=== PATIENT | female | born 1940 | race Caucasian/White ===

== ENCOUNTER 2024-11-12 16:11 | Emergency (ER) | payer MEDICARE, SELFPAY ==
--- OUTSIDE RECORDS SUMMARY | 2024-01-21 05:45 | XMS_ITS | Continuity of Care Document ---
Author Organization [facility] Address [address] [address] [place] [address] Phone Care Team Providers Care Registered Radiologic Technologist Name Role Phone Libby Huitron Unavailable Unavailable Allergies, Adverse Reactions, Alerts Substance Reaction Status Criticality lisinopril Active No Information Medications Medication Instructions Dosage Effective Dates (start - stop) Status Comments omeprazole 40 mg capsule,delayed release take 1 capsule by oral route every day before a meal 40 MG - Active FDgard 25 mg-20.75 mg capsule SAMPLE - Active ISOSORBIDE MONONITRATE ER (unknown strength) take 1 tablet by oral route every day in the morning Not Available - Active citalopram 20 mg tablet take 1 tablet by oral route every day 20 MG - Active simvastatin 10 mg tablet take 1 tablet b y oral route every day in the evening 10 MG - Active GABAPENTIN (unknown strength) Dose 300mg by Oral, taken 1 at bedtime and for legs Not Available - Active metoprolol tartrate 25 mg tablet take 1 tablet by oral route 2 times every day 25 MG - Active amlodipine 2.5 mg tablet take 1 tablet b y oral route every day 2.5 MG - Active Aspirin Low Dose 81 mg tablet,delayed release take 1 tablet by oral route every day 81 MG - Active VITAMIN B-12 (unknown strength) Not Available - Active Calcium 500 500 mg calcium (1,250 mg) tablet take 1 tablet by oral route every day 1 tablet - Active iron 325 mg (65 mg iron) tablet take 1 tablet by oral route every day 1 tablet - Active One-A-Day Womens Formula 18 mg iron-400 mcg-500 mg Ca tablet - Active VITAMIN D3 (unknown strength) take 1 capsule by oral route every day Not Available - Active anastrozole 1 mg tablet take 1 tablet by oral route every day 1 MG - Active hydrochlorothiazide 12.5 mg tablet take 1 tablet by oral route twice per week - Active Procedures Procedure Date Offic/outpt E&m Estab Low-mod 4 Offic/outpt E&m Estab Low-mod 4 Ugi Endo; W/endo Ultrasound Ex 23 Ugi Endo; W/bx 1/mx Offic/outpt E&m New Mod-hi Routine Serum Collection Stool Kits Given C. Difficile Toxin Gene, RC Offic/outpt E&m New Mod Sever 8 Advance Directives Directive Yes / No Effective Date File Name No Information Encounters Encounter Description Practice Location Reason(s) For Visit Diagnoses Date Provider Providers Copied on Encounter Offic/outpt E&m Estab Low-mod [facility], [address] [address], [place], [place], [id number], [place] tel:[phone] [facility] GI Symptoms or Concerns (chief complaint) Nausea 4 Dwain Souza. [address] [place] [address], [id number], [place]. tel:[phone] Referring Provider: Referral Self, USE FOR SELF REFERRALS. [facility], [address] [address], [place], [place], [id number], [place] tel:[phone] [facility] No Information 4 Dwain VELASCO Libby. [address] [place] [address], [id number], [place]. tel:[phone] Offic/outpt E&m Estab Low-mod [facility], [address] [address], [place], [id number], [place] tel:[phone] [facility] GI Symptoms or Concerns (chief complaint) NauseaDilated bile duct 4 Dwain Souza. [address] [place] [address], [address], [id number], [place]. tel:[phone] Referring Provider: Shannon Bryan, [address] [place], [address]. tel:[phone] [facility], [address] [address], [place], [id number], [place] tel:[phone] [facility] No Information 4 Dash Bettencourt. [address] [place] [address], [address], [id number], [place]. tel:[phone] [facility], [address] [address], [place], [id number], [place] tel:[phone] [facility] Nausea 3 Dash Bettencourt. [address] [place] [address], [address], [id number], [place]. tel:[phone] [facility], [address] [address], [place], [id number], [place] tel:[phone] [facility] No Information 3 No Information Offic/outpt E&m New Mod-hi [facility], [address] [address], [place], [id number], [place] tel:[phone] [facility] GI Symptoms or Concerns (chief complaint) Dilated bile ductNausea 3 Naldo Delvalle. [address] [facility], [facility] [address], [place], [id number], [place]. tel:[phone] Referring Provider: Referral Self, USE FOR SELF REFERRALS. [facility], [address] [address], [place], [id number], tel:[phone] [facility] No Information Dash Bettencourt. [address] [facility], [facility] [address], [place], [id number], . tel:[phone] [facility], [address] [address], [place], [place], [id number], tel:[phone] [facility] Change in bowel habit Edstrdarlene Loyd. [address] [facility], [facility] [address], [place], [place], [id number], [place]. tel:[phone] Referring Provider: Referral Self, USE FOR SELF REFERRALS. Offic/outpt E&m [facility], [address] [address], [place], [place], [id number], tel:[phone] [facility] GI Symptoms or Concerns (chief complaint) Change in bowel habitsEssential (primary) hypertension Edstrdarlene Loyd. [address] [facility], [facility] [address], [place], [id number], [place]. tel:[phone] Family History Family Member Type Diagnosis Age At Onset Daughter Problem (finding) Alive and well Son Problem (finding) Cancer, gastric Sister Problem (finding) Alive and well Mother Problem (finding) 80 Mother Problem (finding) malignant neoplasm of l demarco Son Problem (finding) Melanoma Brother Problem (finding) Alive and well Father Problem (finding) Son Problem (finding) Alive and well Immunizations Vaccine Date Status Comments Influenza, adjuvanted, inactivated, quadrivalent, injectable, preservative free administered Note: [facility] bi-directional interface ; Source: Other Registry influenza, seasonal vaccine, quadrivalent, adjuvanted, 0.5mL dose, preservative free administered Note: [facility] bi-di rectional interface ; Source: Other Registry Influenza, high-dose, split virus, quadrivalent, injectable, preservative free administered Note: [facility] bi-direct ional interface ; Source: Other Registry influenza, high-dose seasona l, quadrivalent, 0.7mL dose, preservative free administered Note: [facility] bi-direct ional interface ; Source: Other Registry influenza, high-dose seasona l, quadrivalent, .7mL dose, preservative free administered Note: [facility] bi-direct ional interface ; Source: Other Registry Influenza, high-dose, split virus, quadrivalent, injectable, preservative free administered Note: [facility] bi-direct ional interface ; Source: Other Registry influenza, high-dose seasona l, quadrivalent, 0.7mL dose, preservative free administered Note: [facility] bi-direct ional interface ; Source: Other Registry SARS-COV-2 (COVID-19) vaccin e, mRNA, spike protein, LNP, preservative free, 30 mcg/0.3mL dose administered Note: [facility] bi-direct ional interface ; Source: Other Registry influenza, high-dose seasona l, quadrivalent, .7mL dose, preservative free administered Note: [facility] bi-direct ional interface ; Source: Other Registry SARS-COV-2 (COVID-19) vaccin e, mRNA, spike protein, LNP, preservative free, 30 mcg/0.3mL dose administered Note: [facility] bi-direct ional interface ; Source: Other Registry SARS-COV-2 (COVID-19) vaccin e, mRNA, spike protein, LNP, preservative free, 30 mcg/0.3mL dose administered Note: [facility] bi-direct ional interface ; Source: Other Registry Influenza, adjuvanted, inactivated, quadrivalent, injectable, preservative free administered Note: [facility] bi-directional interface ; Source: Other Registry influenza, seasonal vaccine, quadrivalent, adjuvanted, 0.5mL dose, preservative free administered Note: [facility] bi-di rectional interface ; Source: Other Registry influenza, seasonal vaccine, quadrivalent, adjuvanted, .5mL dose, preservative free administered Note: [facility] bi-di rectional interface ; Source: Other Registry influenza virus vaccine, unspecified formulation administered Note: [facility] bi-di rectional interface ; Source: Other Registry tetanus toxoid, reduced diphtheria toxoid, and acellular pertussis vaccine, adsorbed administered Note: [facility] b i-directional interface ; Source: Other Registry Influenza, high-dose, split virus, trivalent, injectable, preservative free administered Note: [facility] bi-direct ional interface ; Source: Other Registry influenza, high dose seasona l, preservative-free administered Note: [facility] bi-direct ional interface ; Source: Other Registry zoster vaccine recombinant administered N ote: [facility] bi-directional interface ; Source: Other Registry zoster vaccine recombinant administered N ote: [facility] bi-directional interface ; Source: Other Registry Influenza, high-dose, split virus, trivalent, injectable, preservative free administered Note: [facility] bi-direct ional interface ; Source: Other Registry influenza, high dose seasona l, preservative-free administered Note: [facility] bi-direct ional interface ; Source: Other Registry Influenza, injectable, quadrivalent, preservative free, 3 yrs or older administered Source: Other Regist ry Prevnar 13 administered Note: [facility] bi-d irectional interface ; Source: Other Registry Influenza, high-dose, split virus, trivalent, injectable, preservative free administered Note: [facility] bi-direct ional interface ; Source: Other Registry influenza, high dose seasona l, preservative-free administered Note: [facility] bi-direct ional interface ; Source: Other Registry Influenza, high-dose, split virus, trivalent, injectable, preservative free administered Note: [facility] bi-direct ional interface ; Source: Other Registry influenza, high dose seasona l, preservative-free administered Note: [facility] bi-direct ional interface ; Source: Other Registry Pneumovax 23 administered Note: [facility] bi-d irectional interface ; Source: Other Registry tetanus and diphtheria toxoi ds, adsorbed, preservative free, for adult use (5 Lf of tetanus toxoid and 2 Lf of diphtheria toxoid) administered Note: [facility] bi-direct ional interface ; Source: Other Registry Payers Payer name Insurance type Covered constitution party ID Tamara robin(s) [facility] Medic are Complete CI [id number] Social History Type Description Quantity Date Captured Comments Alcohol Use Details No Caffeine Use Details Tobacco Use Status undefined Smoking Status undefined Non-Smoking Tobacco Use Details : No Details Available : No Details Available Sex Female Vital Signs Date / Time: Height Weight BMI Pulse Rate Blood Pressure Temperature Respiratory Rate Body Surface Area Head Circumference Head Circ. Percentile Wt./Abram. Percentile BMI percentile Pulse Ox Inhaled Ox 10:48 AM 64.00 in 79.923 kg (176.20 lbs) 30.2 4 kg/m eter (2) 88 /min 147/67 mm[Hg] Chief Complaint And Reason For Visit From encounter dated '01/21/2024 10:45'. GI Symptoms or Concerns (chief complaint). Description: This patient is a pleasant 83-year-old female who is seen today for follow-up of chronic nausea.She was last seen by myself 3 months ago. She has history of chronic nausea that has been present for the past few years.Prior EGD/EUS was performed 09/2022 for evaluation of common bile duct dilation seen on imaging. 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 The stomach appeared normal and gastric biopsies were normal. Gastric emptying study was also normal.Nausea was previously associated with recurrent UTIs, but more recently has persisted even without UTI. At her last visit,omeprazole was increased to 40 mg once daily which has helped somewhat. Patient used to wake up with significant a.m. nausea, but she is now experiencing more postprandial nausea. No vomiting, bowel changes, appetite loss, or weight loss. Tried multiple antiemetics in the past including Zofran and Compazine, with minimal relief. She was given samples of FD Elisabeth at her last visit, which did help somewhat. Previously her oncologist recommended trialing off of her anastrozole tablets to see if this would improve symptoms, but patient was hesitant to do so with her breast cancer history.Notably she is s/p cholecystectomy. Reason For Referral Reason For Referral No Information Plan Of Treatment Date Type Action Status Referral Ordered: Gastric Emptying Study (4 Hours) Appointment date/timeframe: 10/20/2022 ordered Referral Ordered: follow-up visit after tests Appointment date/timeframe: after tests ordered Referral Ordered: EUS Appointment date/timeframe: 09/10/2022 ordered Referral Ordered: EGD Appointment date/timeframe: 09/10/2022 ordered Referral Ordered: ERCP Appointment date/timeframe: 09/10/2022 ordered History Of Present Illness Encounter Date Complaint History Of Prese nt Illness GI Symptoms or Concerns This pat ient is a pleasant 83-year-old female who is seen today for follow-up of chronic nausea.She was last seen by myself 3 months ago. She has history of chronic nausea that has been present for the past few years.Prior EGD/EUS was performed 09/2022 for evaluation of common bile duct dilation seen on imaging. 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 The stomach appeared normal and gastric biopsies were normal. Gastric emptying study was also normal.Nausea was previously associated with recurrent UTIs, but more recently has persisted even without UTI. At her last visit, omeprazole was increased to 40 mg once daily which has helped somewhat. Patient used to wake up with significant a.m. nausea, but she is now experiencing more postprandial nausea. No vomiting, bowel changes, appetite loss, or weight loss. Tried multiple antiemetics in the past including Zofran and Compazine, with minimal relief. She was given samples of FD Elisabeth at her last visit, which did help somewhat. Previously her oncologist recommended trialing off of her anastrozole tablets to see if this would improve symptoms, but patient was hesitant to do so with her breast cancer history.Notably she is s/p cholecystectomy. GI Symptoms or Concerns Patient is a 83-year-old female who presents in follow up relating to nausea. She is accompanied by her (Rickey). In review, patient was last seen here August, for continued nausea and intrahepatic ductal dilation noted on CT scan (during workup for UTI). She was referred for EGD/EUS and recommended to continue her PPI and eat smaller more frequent meals.EUS September, with normal esophagus, normal stomach and dilation of the common bile duct measuring up to 13 mm. 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 Pancreatic duct measured 4 mm in diameter. H pylori negative. No further surveillance imaging was recommended for cystic lesion.Gastric emptying study completed Oct, 2022 was normal.Today patient reports she continues to experience nausea. Her episodes of nausea used to occur 1-2 days before being diagnosed with a UTI, but currently she reports it will happen whether she has symptoms of a UTI or not. She is on Omeprazole 20mg daily. She reports she met with her PCP in September and was given Compazine to use as needed for nausea episodes and management (has not yet needed this). Her oncologist told her to trial off of her anastrozole tablets to see if this was contributing to her nausea but patient does not feel comfortable getting off this medication given her breast cancer history. Patient reports episode of nausea that are intermittent and may last anywhere from 2-3 days or a whole week, she will wake up with symptoms of nausea and at times experience epigastric discomfort which continues up into her throat. She denies episodes of vomiting, dysphagia, globus sensation, hoarseness, hematemesis, frequent cough, clearing of throat or postnasal drip. Her bowels are regular with 1 BM per day, she does report stools are loose when she has episodes of nausea. Weight is stable although reports loss of appetite with nausea episodes. She has tried Zofran with minimal relief. She is followed for colon cancer screening with a Cologard test. Her last colonoscopy was greater than 10 years ago. She reports her Cologard has been negative. Most recent A1c was 7.8. GI Symptoms or Concerns The elissa ent is seen in consultation at the request of her referring urologist, Dr. Blanchard for evaluation of dilated bile duct and nausea.The patient is seen accompanied by her daughter, Teetee. She is an 82-year-old female with a past medical history significant for breast cancer, diabetes, previous cholecystectomy, hysterectomy, and history of CAD status post stent in 2011, also with a history of recurrent UTIs. She is seen for a history of nausea for the last couple of years, which has increased recently. This is intermittent and random without clear obvious triggers, but has been associated with UTIs inconsistently in the past. She has had no vomiting. She has had no weight loss. She does report some decreased appetite associated with this. She denies heartburn. She is on omeprazole 20 mg daily. She uses Zofran if needed, which can sometimes be helpful.She underwent evaluation with a CT for history of UTIs. This did reveal intrahepatic dilation, which was felt to be GI Symptoms or Concerns This is a pleasant 77-year-old female with past medical history significant for breast cancer, type 2 diabetes, glaucoma, a previous cholecystectomy, hysterectomy, coronary artery disease, status post cardiac stenting, presenting to clinic today to discuss change in bowel habits.The patient states that she chronically has a history of intermittent diarrhea, but over the last 3 to 4 months, this has become more problematic. Previously, it had been more intermittent, but now is occurring almost daily. She typically will have 1 to 3 loose bowel movements per day that are very urgent. At times, the stool is watery. On average, stools are postprandial. There is associated lower abdominal discomfort, which is relieved with bowel movements. She has noted that fried foods can be a trigger, but otherwise there has not been any clear pattern with specific foods. She denies any rectal bleeding, melena, significant abdominal pain, nausea, vomiting, or unintentional weight loss.Sh Functional Status Date Functional Assessmen t No Information Instructions Date Instruction Additional Infor prisca 1. We will increase you Omeprazole to 40mg one tab by mouth in the morning to see if this helps with your episodes of nausea, Rx sent to your pharmacy today2. You may trial the anti-nausea medication provided by your PCP (Compazine) as directed.3. I have provided samples of FDgard for you to use for stomach discomfort when your episodes of nausea arise. You may also consider trial of tennille tabs/chews for nausea episodes.4. Follow up in 3 months, sooner if needed. Related to Nausea 1. check lfts, thyro id, celiac labs2. EGD with EUS +/- ERCP for evaluation of nausea and dilated bile duct on CT3. eat small, frequent, low fat meals4. f/u after tests - consider gastric emptying test for further eval of nausea pending above Related to Nausea High Fiber Diet Related to Andrei rojo in bowel habits Lactose Intolerance Related to Javi vaca in bowel habits Assessments Type Assessment Date assessment Nausea impression Patient presents for follow-up of chronic nausea. Evaluation has found no cause of symptoms. I suspect this is related to medication side effect (she is on many meds) and/or functional dyspepsia. Patient does feel like her symptoms have improved somewhat on the higher dose of PPI, and so I recommend that she continue omeprazole 40 mg daily. She may benefit from using supplements such as tennille or FD Elisabeth as needed for symptom management. She is not a candidate for tricyclic antidepressant or buspirone given her other antidepressant medications. She may consider trying to eat small, frequent meals throughout the day to see if this would improve postprandial symptoms. Patient voiced understanding of these recommendations and will follow-up as needed if her symptoms change. Patient Care Teams Name Effective Dates (start - stop) Status Members No Information
--- OUTSIDE RECORDS SUMMARY | 2024-09-28 10:20 | XMS_ITS | Encounter Summary ---
Author Organization [facility] Address [address] [place] [id number] Care Team Providers Care Generation Engineer Name Role Phone Sheryl Stringer RD Unavailable [phone] Federico Linda MD Unavailable [phone] Jc Zavala MD Unavailable [phone] Cristofer Michelle MD Unavailable Vivien Blanchard MD Unavailable Teetee Velazquez-Javi Unavailable Teetee Velazquez PA-C Unavailable Brad Mayer DO Unavailable [phone] Mary Garcia MD Primary Care Provider Lanie Foster RD, LD Unavailabl e Mary Garcia MD Unavailable Melonie Caro [facility] Unavailable Federico Linda MD Unavailable [phone] Melonie Caro [facility] Unavailable [phone] Virgie Lobato PA-C Unavailable [phone] Barry Ybarra MD Unavailable [phone] Reason for Visit * Reason Comments Consult * Consultation (Routine: Next available opening) - Pending Review Specialty Diagnoses / Procedures Referred By Contjaxson t Referred To Contact Infectious Diseases Diagnoses UTI due to extended-spectrum beta lactamase (ESBL) producing Escherichia coli Teetee Velazquez PA-C [address] [place] [address] Phone: tel: fax: Referral ID Status Reason Start Date Expiration Date V isits Requested Visits Authorized [id number] Pending Review 08/28/2024 08/28/2025 1 1 Encounter Details Date Type Department Care Team (Late st Contact Info) Description 09/28/2024 10:20 AM CDT Office Visit [address] [phone] Barry Ybarra MD [address] [place] [id number] UTI due to extended-spectrum beta lactamase (ESBL) producing Escherichia coli Social History Tobacco Use Types Packs/Day Years Used Date Smoking Tobacco: Never Passive Smoke Exposure: Never Smokeless Tobacco: Never Alcohol Use Standard Drinks/Week Comments No 0 (1 standard drink = 0.6 oz pur e alcohol) PHQ-2 Answer Date Recorded PHQ-2 Score 0 09/13/2024 Exercise Vital Sign Answer Date Recorde d On average, how many days pe r week do you engage in moderate to strenuous exercise (like a brisk walk)? 2 days 08/09/2023 On average, how many minutes do you engage in exercise at this level? 120 min 08/09/2023 Adolescent Education Answer Date Record ed Getting School Help Needed Not on file 09/23 /2023 Food Insecurity Answer Date Recorded Within the past 12 months, d id you worry that your food would run out before you got money to buy more? No 09/01/2024 Within the past 12 months, d id the food you bought just not last and you didn t have money to get more? No 09/01/2024 Housing Stability Answer Date Recorded Do you have housing? (Jadon jerez is defined as stable permanent housing and does not include staying outside in a car, in a tent, in an abandoned building, in an overnight [place] [facility] [place], or couch-surfing.) Yes 09/01/2024 Are you worried about losing your housing? No 09/01/2024 Financial Resource Strain Answer Date R ecorded Within the past 12 months, h ave you or your family members you live with been unable to get utilities (heat, electricity) when it was really needed? No 09/01/2024 Transportation Needs Answer Date Record ed Within the past 12 months, h as lack of transportation kept you from medical appointments, getting your medicines, non-medical meetings or appointments, work, or from getting things that you need? No 09/01/2024 Interpersonal Safety Answer Date Record ed Do you feel physically and e motionally safe where you currently live? Yes 09/01/2024 Within the past 12 months, h ave you been hit, slapped, kicked or otherwise physically hurt by someone? No 09/01/2024 Within the past 12 months, h ave you been humiliated or emotionally abused in other ways by your partner or ex-partner? 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 Not on file Not on file Not on file documented as of this encounter Last Filed Vital Signs Vital Sign Reading Time Taken Comments Blood Pressure 136/60 09/28/2024 10:10 AM CDT Pulse 84 09/28/2024 10:10 AM CDT Temperature 36.6 C (97.9 F) 09/28/2024 10:10 AM CDT Respiratory Rate - - Oxygen Saturation - - Inhaled Oxygen Concentration - - Weight 76.2 kg (168 lb) 09/28/2024 10:10 AM CDT Height - - Body Mass Index 28.84 09/18/2024 3:20 PM CDT documented in this encounter Progress Notes * Barry Ybarra MD - 09/28/2024 10:20 AM CDT [facility] Date: 09/28/2024 Patient Name: Nova Live Date of : 1940 ASSESSMENT: 84-year-old woman with a history of heart failure, chronic kidney disease, diabetes, hypertension, hyperlipidemia, coronary artery disease referred to ID clinic for recurring urinary tract infections. Recurring urinary tract infections. 3-4 episodes a year. Has been hospitalized 3 times with sepsis,last time about 2 to 3 years ago. Has seen urology. Normal cystoscopy on 09/13. No kidney stones on CT abdomen April 2024. Uses topical estrogen, probiotics, cranberry tablets. On fluid restriction due to heart failure. Recent urine cultures with ESBL producing E. coli. Chronic kidney disease PLAN: - No signs of active infection today -No indication for antibiotics today. - Agree with urology workup. Patient is encouraged to follow-up with video urodynamic studies - Discussed other prevention methods that were already instituted - Discussed difficulty in treating multidrug-resistant infections. Based on her last culture, nitrofurantoin or fosfomycin are potential regimens for simple cystitis. However her creatinine clearanceis borderline and nitrofurantoin may not be a suitable option if her creatinine worsens. Empiric alternative therapies would be with the carbapenems, therefore she may need to go to the ER if her symptoms return - Recommend repeat urine culture next time she has urinary symptoms Return to clinic in 3 months. Barry Ybarra MD [facility] Clinic phone: [phone] Clinic fax: [phone] HISTORY OF PRESENT ILLNESS: Nova Live is a 84 year old woman who is referred for evaluation of recurring urinary tract infections. She said that she has had recurring urinary infections for several years. She suffers 3-4 episodes a year. She has been hospitalized specifically for UTI and sepsis about 3 times in the past few years. Her typical symptoms include 2-1/2 days of nausea. Sometimes this will resolve on its own, but when she has UTI she will develop dysuria after 2-1/2 days of nausea. She has been treated successfully with antibiotics for the most part. Her symptoms resolved after antibiotics. She reports having a cystoscopy about a year ago, this was repeated just this month. She is seeing urology for thesame problem. A video urodynamic study was ordered, but the patient has not scheduled this yet. Today, the patient denies any nausea or dysuria. She uses vaginal estrogen, probiotics, cranberry supplements. She is on water restriction due to heart failure and she is on diuretics. She has had frequent hospitalizations for heart failure. Interval History: Not applicable Review of Systems: Ten systems reviewed and negative except for what is noted in the HPI Past Medical History: Past Medical History: Diagnosis Date Acute on chronic congestive heart failure, unspecified heart failure type (H) 11/28/2023 Acute renal failure 05/12/2011 Angioedema 12/08/2017 Breast CA (H) stage 1 CAD (coronary artery disease) stent LAD 2011 Carpal tunnel syndrome CKD (chronic kidney disease) stage 3, GFR 30-59 ml/min (H) 10/29/2016 Degenerative arthritis of hip 05/06/2015 Depressive disorder, not elsewhere classified Essential hypertension 07/26/2002 Problem list name updated by automated process. Provider to review Hyperlipidemia LDL goal <70 04/06/2010 Moderate episode of recurrent major depressive disorder (H) 11/11/2016 Non-toxic multinodular goiter 11/25/2018 Other and unspecified disc disorder of cervical region 2004 Cervical disc disease on MRI Other and unspecified disc disorder of lumbar region 2002 Lumbar disc disease with disc protrusion on two levels, treated medically Presence of stent in LAD coronary artery 04/22/2012 Shortness of breath TYPE 2 DIABETES, HBA1C GOAL < 7% 04/06/2010 Type II or unspecified type diabetes mellitus without mention of complication, not stated as uncontrolled Past Surgical History: Past Surgical History: Procedure Laterality Date ANGIOGRAM 04/22/2012 stent LAD APPENDECTOMY ARTHROPLASTY HIP Right 05/06/2015 Procedure: ARTHROPLASTY HIP; Surgeon: Scott Del Toro MD; Location: [facility] OR BIOPSY BREAST SURGERY 2012 Breast cancer CARPAL TUNNEL RELEASE RT/LT 11/2004 Right side ENDOSCOPIC ULTRASOUND UPPER GASTROINTESTINAL TRACT (GI) N/A 09/10/2022 Procedure: Endoscopic ultrasound upper gastrointestinal tract; Surgeon: Adalgisa Dean MD; Location: [facility] OR ENT SURGERY Bilateral cataract surgery ESOPHAGOSCOPY, GASTROSCOPY, DUODENOSCOPY (EGD), COMBINED N/A 09/10/2022 Procedure: Esophagoscopy, gastroscopy, duodenoscopy with biopsies; Surgeon: Adalgisa Dean MD; Location: [facility] OR EYE SURGERY Cataracts HC FLEX SIGMOIDOSCOPY W/WO JOLYNN SPEC BY BRUSH/WASH ~1996 Reportedly normal HC LAPAROSCOPY, SURGICAL; CHOLECYSTECTOMY 1993 Cholecystectomy, Laparoscopic [facility] VAGINAL HYSTERECTOMY 1996 Hysterectomy, Vaginal [facility] COLONOSCOPY THRU STOMA, DIAGNOSTIC 10/2003 Normal Allergies: Allergies Allergen Reactions Lisinopril Angioedema and Swelling Propranolol Rash and Unknown Medications: Current Outpatient Medications: amLODIPine (NORVASC) 10 MG tablet, Take 1 tablet (10 mg) by mouth daily., Disp: 90 tablet, Rfl: 1 aspirin 81 MG EC tablet, Take 81 mg by mouth daily., Disp: , Rfl: atorvastatin (LIPITOR) 20 MG tablet, Take 1 tablet by mouth daily., Disp: , Rfl: Hrqqugq-Kosynrypl-Kfxkwgl D (CALCIUM 1200+D3 PO), Take 1 tablet by mouth daily , Disp: , Rfl: citalopram (CELEXA) 20 MG tablet, TAKE 1 TABLET BY MOUTH EVERY DAY, Disp: 90 tablet, Rfl: 0 Cranberry 250 MG CAPS, Take 1 capsule by mouth daily., Disp: , Rfl: dicyclomine (BENTYL) 20 MG tablet, Take 20 mg by mouth 4 times daily as needed., Disp: , Rfl: estradiol (ESTRACE) 0.1 MG/GM vaginal cream, Place 2 g vaginally three times a week., Disp: 40 g, Rfl: 4 furosemide (LASIX) 40 MG tablet, Take 1 tablet (40 mg) by mouth daily., Disp: , Rfl: gabapentin (NEURONTIN) 300 MG capsule, Take 1 capsule (300 mg) by mouth at bedtime., Disp: , Rfl: Glucagon (BAQSIMI) 3 MG/DOSE nasal powder, [place] 1 spray in nostril., Disp: , Rfl: Insulin Disposable Pump (OMNIPOD DASH 5 PACK PODS) MISC, 1 pod every 48 hours, Disp: 15 each, Rfl: 11 insulin lispro (HUMALOG VIAL) 100 UNIT/ML vial, Up to 100 units a day via pump, Disp: 90 mL, Rfl: 1 INSULIN PUMP - OUTPATIENT, Inject subcutaneously. Omnipod DASH (updated 09/01/2024) Basal Rates and Times: 2474-7253: 1.5 units/hour 9745-9458: 1.8 units/hour Carb Ratio: 5109-8862 (all day): 1 unit/ 3.7g carbs Corection Factor (Sensitivity): 9947-8620 (all day): 18 mg/dL Blood Glucose Target: 0924-7628 (all day): 120 mg/dL - goal range 70-180 mg/dL Active Insulin Time: 3 hours, Disp: , Rfl: lactobacillus rhamnosus, GG, (CULTURELL) capsule, Take 1 capsule by mouth 2 times daily., Disp: , Rfl: latanoprost (XALATAN) 0.005 % ophthalmic solution, Place 1 drop into both eyes daily., Disp: , Rfl: LORazepam (ATIVAN) 0.5 MG tablet, Take 1 tablet (0.5 mg) by mouth 2 times daily as needed for anxiety., Disp: 10 tablet, Rfl: 0 MULTIVITAMINS OR TABS, Take 1 tablet by mouth daily., Disp: , Rfl: nitroGLYcerin (NITROSTAT) 0.4 MG sublingual tablet, Place 1 tablet (0.4 mg) under the tongue every 5 minutes as needed for chest pain. For chest pain place 1 tablet under the tongue every 5 minutes for 3 doses. If symptoms persist 5 minutes after 1st dose call 911., Disp: 20 tablet, Rfl: 0 omeprazole (PRILOSEC) [address] capsule, Take 40 mg by mouth daily., Disp: , Rfl: timolol maleate (TIMOPTIC) 0.5 % ophthalmic solution, INSTILL 1 DROP 2 TIMES A DAY INTO BOTH EYES, Disp: , Rfl: traZODone (DESYREL) 50 MG tablet, Take 1 tablet (50 mg) by mouth at bedtime., Disp: 90 tablet, Rfl:0 vitamin D3 (CHOLECALCIFEROL) 50 mcg (2000 units) tablet, Take 1 tablet by mouth daily., Disp: , Rfl: Social History: Social History Socioeconomic History Marital status: Spouse name: Godwin Number of children: 5 Years of education: Not on file Highest education level: Not on file 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 No Service Not Asked Blood Transfusions Not Asked Caffeine Concern No Comment: 1-2 cups daily Occupational Exposure Not Asked Hobby Hazards Not Asked Sleep Concern Not Asked Stress Concern Not Asked Weight Concern Not Asked Special Diet No Back Care Not Asked Exercise No Comment: some walking Bike Helmet Not Asked Seat Belt Not Asked Self-Exams Not Asked Social History Narrative Not on file Social Drivers of Health Financial Resource Strain: Low Risk (09/01/2024) Financial Resource Strain Within the past 12 months, have you or your family members you live with been unable to get utilities (heat, electricity) when it was really needed?: No Food Insecurity: Low Risk (09/01/2024) Food Insecurity Within the past 12 months, did you worry that your food would run out before you got money to buy more?: No Within the past 12 months, did the food you bought just not last and you didn???t have money to getmore?: No Transportation Needs: Low Risk (09/01/2024) Transportation Needs Within the past 12 months, has lack of transportation kept you from medical appointments, getting your medicines, non-medical meetings or appointments, work, or from getting things that you need?: No Physical Activity: Sufficiently Active (08/09/2023) Exercise Vital Sign Days of Exercise per Week: 2 days Minutes of Exercise per Session: 120 min Stress: Not on file Social Connections: Socially Integrated (05/28/2023) Received from [employer] [facility] Social Connections Do you often feel lonely or isolated from those around you?: 0 Interpersonal Safety: Low Risk (09/01/2024) Interpersonal Safety Do you feel physically and emotionally safe where you currently live?: Yes Within the past 12 months, have you been hit, slapped, kicked or otherwise physically hurt by someone?: No Within the past 12 months, have you been humiliated or emotionally abused in other ways by your partner or ex-partner?: No Housing Stability: Low Risk (09/01/2024) Housing Stability Do you have housing? : Yes Are you worried about losing your housing?: No Family History: Family History Problem Relation Age of Onset Diabetes Mother Hypertension Mother C.A.D. Mother age 79, heart problems C.A.D. Father of heart attack at age 60 C.A.D. Paternal Grandfather Diabetes Brother Diabetes Son Hypertension Son Hodgkin's lymphoma Son Lymphoma Son 42 PHYSICAL EXAM: BP 136/60 (BP Location: Right arm, Patient Position: Sitting, Cuff Size: Adult Large) Pulse 84 Temp 97.9 ??F (36.6 ??C) (Oral) Wt 76.2 kg (168 lb) LMP (LMP Unknown) BMI 28.84 kg/m?? GENERAL: well-developed, well-nourished, in no acute distress. HENT: Head is normocephalic, atraumatic. EYES: Eyes have anicteric sclerae without conjunctival injection LUNGS: normal respiratory pattern MUSCULOSKELETAL: Extremities warm SKIN: No acute rashes. NEUROLOGIC: Grossly nonfocal. Pertinent labs: Lab Results Component Value Date NA 144 09/21/2024 POTASSIUM 3.6 09/21/2024 CHLORIDE 103 09/21/2024 CO2 23 09/21/2024 BUN 22.5 09/21/2024 CR 1.54 (H) 09/21/2024 GLC 114 (H) 09/21/2024 Lab Results Component Value Date WBC 8.9 09/21/2024 HGB 11.5 (L) 09/21/2024 HCT 34.9 (L) 09/21/2024 PLT 359 09/21/2024 MCV 87 09/21/2024 RDW 14.2 09/21/2024 Lab Results Component Value Date BILITOTAL 0.4 09/21/2024 AST 20 09/21/2024 ALT 14 09/21/2024 PROTTOTAL 7.6 09/21/2024 ALBUMIN 3.8 09/21/2024 ALKPHOS 68 09/21/2024 AMYLASE 36 03/26/2021 LIPASE 12 (L) 04/28/2024 INR 1.96 (H) 05/09/2015 MICROBIOLOGY DATA: Susceptibility data from last 90 days. Collected Specimen Info Organism Ampicillin Cefazolin Cefepime Ceftazidime Ceftriaxone Ciprofloxacin Gentamicin Levofloxacin Meropenem Nitrofurantoin Piperacillin/Tazobactam Trimethoprim/Sulfamethoxazole 08/24/24 Urine, Straight Catheter Escherichia coli ESBL R R R R R R R R S S S R 07/05/24 Urine, Midstream Escherichia coli ESBL R R R R R R R R S S S S RADIOLOGY: Chest XR, PA & LAT Result Date: 09/21/2024 EXAM: XR CHEST 2 VIEWS LOCATION: [facility] DATE: 09/21/2024 INDICATION: dyspnea COMPARISON: 07/16/2024 IMPRESSION: Enlarged cardiomediastinal silhouette. No focal consolidation is seen in the lungs to suggest pneumonia. Subtle hazy opacities in the lower lungs may reflect subsegmental atelectasis. Degenerative changes are seen in the spine. Echocardiogram Complete Result Date: 09/01/2024 [id number]^ANTONIO^DANNY [facility] Echocardiography Laboratory [address] [place] [address] Name: NOVA LIVE : 1940 Study Date: 09/01/2024 07:31 AM Age: 84 yrs Gender: Female Patient Location: [facility] Reason For Study: CHF Ordering Physician: DANNY ALVAREZ Performed By: Naila Brown BSA: 1.8 m2 Height: 64 in Weight: 166 lb HR: 79 BP: 148/71 mmHg Procedure Echocardiogram with two-dimensional, color and spectral Doppler. Optison ([facility] #[id number]) given intravenously. Interpretation Summary 1. The left ventricle is normal in size. The visual ejection fraction is 65- 70%. 2. The right ventricle is normal in structure, function and size. 3. There is moderate mitral stenosis. Mean 9mmHg @ HR 83. Severe calcification of the posterior annulus with restricted posterior leaflet motion. 4. There is mild to moderate (1-2+) mitral regurgitation. Echo 04/2024 showed EF 65-70%, MS with mean 8mmHg, 1+ MR. Left Ventricle The left ventricle is normal in size. There is mild concentric left ventricular hypertrophy. The visual ejection fraction is 65-70%. Diastolic function not assessed due to significant mitral annular calcification. Normal left ventricular wall motion. Right Ventricle The right ventricle is normal in structure, function and size. Atria The left atrium is moderate to severely dilated. The right atrium is mildly dilated. There is no atrial shunt seen. Mitral Valve There is mild to moderate (1-2+) mitral regurgitation. There is moderate mitral stenosis. Severecalcification of the posterior annulus with restricted posterior leaflet motion. Tricuspid Valve There is mild (1+) tricuspid regurgitation. Aortic Valve The aortic valve is normal in structure and function. Pulmonic Valve The pulmonic valve is normal in structure and function. Vessels Normal ascending, transverse (arch), and descending aorta. The inferior vena cava was normal in size with preserved respiratory variability. Pericardium There is no pericardial effusion. Rhythm Sinus rhythm was noted. MMode/2D Measurements & Calculations IVSd: 1.2 cm LVIDd: 4.3 cm LVIDs: 2.3 cm LVPWd: 1.3 cm IVC diam: 1.4 cm FS: 46.6 % LV mass(C)d: 192.1 grams LV mass(C)dI: 106.3 grams/m2 Ao root diam: 3.1 cm asc Aorta Diam: 3.3 cm LVOT diam: 2.0 cm LVOT area: 3.2 cm2 Ao root diam index Ht(cm/m): 1.9 Ao root diam index BSA ( cm/m2): 1.7 Asc Ao diam index BSA (cm/m2): 1.8 Asc Ao diam index Ht(cm/m): 2.0 LA Volume (BP): 103.0 ml LA Volume Index (BP): 56.9 ml/m2 RWT: 0.59 Doppler Measurements & Calculations MV E max ivonne: 172.0 cm/sec MV A max ivonne: 156.0 cm/sec MV E/A: 1.1 MV max P.6 mmHg MV mean P.9 mmHg MV V2 VTI: 51.0 cm MVA(VTI): 1.6 cm2 MV P1/2t max ivonne: 202.8 cm/sec MV P1/2t: 70.6 msec MVA(P1/2t): 3.1 cm2 MV dec slope: 841.1 cm/sec2 MV dec time: 0.20 sec LV V1 max P.2 mmHg LV V1 max: 124.0 cm/secLV V1 VTI: 26.1 cm SV(LVOT): 83.9 ml SI(LVOT): 46.4 ml/m2 TR max ivonne: 215.6 cm/sec TR max P.6 mmHg Report approved by: Jeff Wilder MD on 09/01/2024 09:[address] Chest Pulmonary Embolism w Contrast Result Date: 09/01/2024 EXAM: CT CHEST PULMONARY EMBOLISM W CONTRAST LOCATION: [facility] DATE: 09/01/2024 INDICATION: hypoxia, elevated ddimer, Dyspnea COMPARISON: CT scan of chest 09/14/2024 and November 28, 2023. TECHNIQUE: CT chest pulmonary angiogram during arterial phase injection of IV contrast. Multiplanar reformats and MIP reconstructions were performed. Dose reduction techniques were used. CONTRAST: 59mL Isovue 370 FINDINGS: ANGIOGRAM CHEST: Pulmonary arteries are normal caliber and negativefor pulmonary emboli. Thoracic aorta is negative for dissection. No CT evidence of right heart strain. LUNGS AND PLEURA: Small bilateral pleural effusions with patchy groundglass density most pronounced in the lower lobes. There is mild smooth bronchial wall thickening. MEDIASTINUM/AXILLAE: Extensive mitral annulus calcification. Unchanged enlarged mediastinal and right hilar lymph nodes. CORONARY ARTERY CALCIFICATION: Severe. UPPER ABDOMEN: Normal. MUSCULOSKELETAL: Mild body wall third spacing. Degenerative change in the spine. IMPRESSION: 1. No pulmonary embolism. 2. Small bilateral pleural effusions with patchy groundglass density in the lungs and mild bronchial wall thickening. The appearance is similar to the prior examand may represent mild pulmonary edema. 3. Unchanged mediastinal and right hilar lymphadenopathy. Attestation: Total time preparing to see this patient, [id number] time, and coordinating care time on the date: 47 minutes. Face-face time: 30 minutes. Over 50% of [id number]-[id number] time was spent in counseling/coordination of care. The longitudinal plan of care for the diagnosis(es)/condition(s) as documented were addressed during this visit. Due to the added complexity in care, I will continue to support Bailey in the subsequent management and with ongoing continuity of care. documented in this encounter Plan of Treatment Upcoming Encounters Date Type Department Care Team (Late st Contact Info) Description 11/16/2024 1:00 PM CDT Allied Health/Nurse Visit [facility] [address]th [place] [address] Lucero Britt PA-C [address] [place] [address] 11/16/2024 2:45 PM CDT Office Visit [facility] Urology [facility] [address] [facility] 4th [place] [phone] Vivien Blanchard MD [address] [facility] [address] [place], [place] [address] 11/20/2024 3:30 PM CDT Office Visit [facility] [address] [place] [phone] [place] [address] [place] [address] 11/22/2024 9:15 AM CDT Office Visit [facility] Heart [facility] [address] [facility] [address] [place] [phone] Federico Linda MD [address] [facility] [address] [place], [place] [address] 11/30/2024 10:30 AM CDT Lab [facility] [address] [place] [phone] 12/06/2024 10:10 AM CDT Office Visit [facility] Specialty [facility] [address] [facility] [address] [place] [phone] Virgie Lobato PA-C [address] [place], [place] [phone] 12/28/2024 11:00 AM CDT Office Visit [facility] [address] [facility] [address] [place] [phone] Barry Ybarra MD [address] [place] [address] [address] [place] [address] 01/26/2025 11:30 AM CDT Office Visit [facility] [address] [place] [phone] [place] [address] [place] [address] documented as of this encounter Goals Goal Patient Goal Type Associated Problems Recent Progress Patient-Stated? 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) Yes Sheryl Stringer RD Note: My Goal: I will reduce risk of low blood sugars over-night What I need to meet my goal: follow instructions for taking Novolog before meals only I plan to meet my goal by this date: 1 week documented as of this encounter Visit Diagnoses Diagnosis UTI due to extended-spectrum beta lactamase (ESBL) producing Escherichia coli documented in this encounter Additional Health Concerns Infection Onset Date Last Indicated Resolved Time ESBL 07/05/2024 08/24/2024 Assessment Noted Time PHQ-9 Depression Total Score: 3 05/02/20 24 1:39 PM PHARMACEUTICAL PLANT OPERATOR documented as of this encounter Care Teams Generation Engineer Relationship Specialty [place] [address] [place] [address] PCP - General Family Medicine 04/11/[address] [facility] [place] [address] Wire Photo Operator News Dietitian, Registered 11/03/17 Federico Linda MD [address] [facility] [address] [place] [address] Assigned Heart and Vascular Provider 03/29/[address] [facility] [address] [place] [address] Hematology & Oncology 08/07/21 Cristofer Michelle MD [address] [facility] [address] [place] [address] Gastroenterology 07/28/22 Vivien Blanchard MD 420 [facility] [address] [place], [place] [address] Urology 07/28/22 Teetee Velazquez PA-C [address] [place], [place] [address] Physician Flat Surfacer 05/11/23 Teetee Velazquez PA-C [address] [place], [place] [address] Assigned Surgical Provider 07/01/23 [place] [address] RONALD ESPINOSA, [address] [address] Assigned Musculoskeletal Provider 08/20/23 Lanie Foster, RD, LD [address] [place] [address] Registered Dietitian Nutrition 05/15/24 [place] [address] [place] [address] Assigned PCP 05/29/24 Melonie Caro [facility] [address] [place] [address] Pharmacist Pharmacist 06/05/24 Federico Linda MD [address] [facility] [address] [place] [address] Cardiovascular Disease 06/13/24 Melonie Caro [facility] [address] [place] [address] Assigned MTM Pharmacist 06/29/24 Virgie Lobato, PA-C [address] [place] [address] Assigned Nephrology Provider 07/30/24 Barry Ybarra MD [address] [place] [address] Hospitalist Infectious Diseases 08/31/24 documented as of this encounter
--- OUTSIDE RECORDS SUMMARY | 2024-10-18 09:08 | XMS_ITS | Encounter Summary ---
Author Organization [facility] Address [address] [place] [address] Care Team Providers Care Hog Pusher Name Role Phone Sheryl Stringer RD Unavailable [phone] Federico Linda MD Unavailable [phone] Jc Zavala MD Unavailable [phone] Cristofer Michelle MD Unavailable Vivien Blanchard MD Unavailable Teetee Velazquez-Javi Unavailable [phone] Teetee Velazquez PA-C Unavailable [phone] Brad Mayer DO Unavailable [phone] Mary Garcia MD Primary Care Provider Lanie Foster RD, LD Unavailabl e Mary Garcia MD Unavailable Melonie Caro [facility] Unavailable Federico Linda MD Unavailable [phone] VaniaMelonie duarte [facility] Unavailable [phone] Virgie Lobato PA-C Unavailable [phone] Barry Ybarra MD Unavailable [phone] Encounter Details Date Type Department Care Team (Late st Contact Info) Description 10/18/2024 9:08 AM CDT - 10/18/2024 11:59 PM CDT Hospital Encounter [facility] [address] [place] [address] Non-Fv Credentialed Provider, Lab Lanie Foster, RD, LD [address] [place] [address] Discharge Disposition: Home or Self Care Social History Tobacco Use Types Packs/Day Years [...] Getting School Help Needed Not on file 02/27 Food Insecurity Answer Date Recorded Within the past 12 months, d id you worry that your food would run out before you got money to buy more? No 09/01/2024 Within the past 12 months, d id the food you bought just not last and you didn t have money to get more? No 09/01/2024 Housing Stability Answer Date Recorded Do you have housing? 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 90 tablet 1 10/09/2024 aspirin 81 MG EC tablet Take 81 mg by mouth daily. atorvastatin (LIPITOR) 20 MG tablet Take 1 tablet by mouth daily. 09/17/2022 Calcium-Magnesium- Vitamin D (CALCIUM 1200+D3 PO) Take 1 tablet by mouth daily citalopram (CELEXA) 20 MG tabletIndications: Moderate episode of recurrent major depressive disorder (H) TAKE 1 TABLET BY MOUTH EVERY DAY 90 tablet 1 09/29/2024 Cranberry 250 MG CAPS Take 1 capsule by mouth daily. dicyclomine (BENTYL) 20 MG tabletIndications: Irritable Bowel Syndrome Take 20 mg by mouth 4 times daily as needed. estradiol (ESTRACE) 0.1 MG/GM vaginal creamIndications:P ersonal history of urinary tract infection Place 2 g vaginally three times a week. 40 g 4 03/10/2024 furosemide (LASIX) 40 MG tabletIndications: teat twice daily x 3 days then once daily Take 1 tablet (40 mg) by mouth daily. 05/01/2024 gabapentin (NEURONTIN) 300 MG capsuleIndications :Neuropathy Take 1 capsule (300 mg) by mouth at bedtime. 09/18/2024 Glucagon (BAQSIMI) 3 MG/DOSE nasal powder Campbell 1 spray in nostril. 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 Omnipod DASH (updated 09/01/2024) Basal Rates and Times: 0689-7983: 1.5 units/hour 3078-1749: 1.8 units/hour Carb Ratio: 7434-1800 (all day): 1 unit/ 3.7g carbs Corection Factor (Sensitivity): 6830-9359 (all day): 18 mg/dL Blood Glucose Target: 7597-6951 (all day): 120 mg/dL - goal range 70-180 mg/dL Active Insulin Time: 3 hours lactobacillus rhamnosus, GG, (CULTURELL) capsule Take 1 capsule by mouth 2 times daily. latanoprost (XALATAN) 0.005 % ophthalmic solution Place 1 drop into both eyes daily. 08/28/2024 LORazepam (ATIVAN) 0.5 MG tablet Take 1 tablet (0.5 mg) by mouth 2 times daily as needed for anxiety. 10 tablet 09/21/2024 MULTIVITAMINS OR TABS Take 1 tablet by mouth daily. nitroGLYcerin (NITROSTAT) 0.4 MG sublingual tabletIndications: Acute on chronic diastolic congestive heart failure (H) Place 1 tablet (0.4 mg) under the tongue every 5 minutes as needed for chest pain. For chest pain place 1 tablet under the tongue every 5 minutes for 3 doses. If symptoms persist 5 minutes after 1st dose call 911. 20 tablet 09/04/2024 omeprazole (PRILOSEC) [address] capsule Take 40 mg by mouth daily. timolol maleate (TIMOPTIC) 0.5 % ophthalmic solution INSTILL 1 DROP 2 TIMES A DAY INTO BOTH EYES 10/20/2023 traZODone (DESYREL) 50 MG tabletIndications: Sleep disturbance TAKE 1 TABLET BY MOUTH AT BEDTIME 90 tablet 10/09/2024 vitamin D3 (CHOLECALCIFEROL) 50 mcg (2000 units) tablet Take 1 tablet by mouth daily. documented as of this encounter Progress Notes * Lanie Foster RD, LD - 10/18/2024 10:13 AM CDT OUTPATIENT NUTRITION ASSESSMENT REASON FOR ASSESSMENT Nova Bradley Calos referred by Dr. Garcia for MNT related to Stage 3b chronic kidney disease (H) [N18.32] . Patient accompanied by , Rickey. ASSESSMENT Nutrition History: - Information obtained from patient. - Patient is on a diabetic diet at home. Patient aims for 45 grams carbohydrate per meal. Patient has insulin pump and wears CGM. Patient, and family are following her blood glucose levels. Patient sends blood glucose level, weight and oxygen sat daily to [id number] in [place] and she keeps graph of patient's data. Patient has been starting to limit sodium in diet as aware affects her breathing. Patient looking at sodium content of foods when dining out. Patient saw that favorite meal from [employer] has 4090 mg sodium so she has not ordered it. Patient does add salt to foods and in cooking. Diet Recall: Breakfast: blueberry toast with cinnamon with butter Lunch: leftovers Dinner: chicken; goulash; tuna salad; beans with ham hock Snack: likes crackers Beverages: water; diet Pepsi Dining out: salad with iceberg lettuce NUTRITION FOCUSED PHYSICAL ASSESSMENT (NFPA) FOR DIAGNOSING MALNUTRITION Yes Observed: No nutrition-related physical findings observed Obtained from Chart/Interdisciplinary Team: None noted LABS Labs reviewed MEDICATIONS Medications reviewed ANTHROPOMETRICS Height: 5'4 Weight: 168 lbs BMI (kg/m2): 28.8 kg/m2 Weight Status: Overweight BMI 25-29.9 %IBW: 140% Weight History: 3% weight loss in 1 month -note diuretics Wt Readings from Last 10 Encounters: 09/28/24 76.2 kg (168 lb) 09/18/24 76.7 kg (169 lb) 09/04/24 76.6 kg (168 lb 12.8 oz) 08/30/24 78 kg (172 lb) 08/11/24 73.4 kg (161 lb 12.8 oz) 07/28/24 76.7 kg (169 lb 3.2 oz) 07/18/24 77.1 kg (170 lb) 07/14/24 77.8 kg (171 lb 9.6 oz) 07/05/24 79.2 kg (174 lb 8 oz) 06/15/24 78.5 kg (173 lb) ASSESSED NUTRITION NEEDS Estimated Energy Needs: 6070-6979 kcals/day (20-22 Kcal/Kg) Justification: (overweight) Estimated Protein Needs: 48-60 grams protein/day (0.8-1 g pro/Kg) Justification: (CKD) Estimated Fluid Needs: per MD -note fluid restriction; pt unsure of fluid restriction ) ASSESSED MALNUTRITION STATUS % Weight Loss: Weight loss does not meet criteria for malnutrition % Intake: No decreased intake noted Subcutaneous Fat Loss: None observed Loss of Muscle Mass: None observed Fluid Retention: None noted Malnutrition Diagnosis: Patient does not meet two of the above criteria necessary for diagnosing malnutrition DIAGNOSIS Nutrition Diagnosis: Food and nutrition-related knowledge deficit related lack of recent exposure as evidenced by no recent need for food and nutrition related recommendations INTERVENTIONS Nutrition Prescription Recommend modified diet for CHF, diabetes and CKD IMPLEMENTATION Assessed learning needs and learning preference Teaching Method(s) used: Booklet / Handout Explanation Diet Education: Provided education on renal, low sodium, carbohydrate consistent diet Nutrition Education (Content): a) Discussed portion sizes, label reading, sodium, protein, carbohydrate counting, added sugars andbehavior modification. Instructed patient on label reading. Recommend patient reduce sodium intake to <2000 mg per day. Suggest patient aim for 30-45 grams carbohydrate per meal and <24 grams added sugar per day. Recommend distributing protein evenly throughout the day. Encouraged gradual diet and behavior change for alf weight loss success. Supported patient with the challenge of diet changes. b) Provided Academy of Nutrition and Dietetics Count Your Carbs booklet; Academy of Nutrition and Dietetics Chronic Kidney Disease Stages 3-5 Nutrition Therapy; Low Sodium recipe booklet Nutrition Education (Application): a) Discussed current eating plans and offered suggestions for food options b) Patient verbalizes understanding of diet by will reduce sodium intake Expected patient engagement: good GOALS <2000 mg sodium per day Distribute protein evenly throughout the day FOLLOW UP/MONITORING Progress towards goals will be monitored and evaluated per protocol and Practice Guidelines Patient to call for follow up appointment or if has further questions RD name and number provided Time Spent with Patient 45 minutes Victor Manuel Dickerson, RD, LD [facility] Outpatient Dietitian [phone] (office phone) documented in this encounter Plan of Treatment Upcoming Encounters Date Type Department Care Team (Late st Contact Info) Description 11/16/2024 1:00 PM CDT Allied Health/Nurse Visit [facility] [address] [address] Lucero Britt PA-C [address] [place], [place] [phone] 11/16/2024 2:45 PM CDT Office Visit [facility] [address] [address] Vivien Blanchard MD [address] [facility] [address] [place] [address] 11/20/2024 3:30 PM CDT Office Visit [facility] [address] [place] [phone] [place] [address] [place] [address] 11/22/2024 9:15 AM CDT Office Visit [facility] [address] [facility] [address] [place] [phone] Federico Linda MD [address] [facility] [address] [place], [place] [address] 11/30/2024 10:[address] [facility] [address] [place] [phone] 12/06/2024 10:10 AM CDT Office Visit [facility] [address] [facility] [address] [place] [phone] Virgie Lobato, PA-C [address] [place] [address] 12/28/2024 11:00 AM CDT Office Visit [facility] [address] [place] [phone] Barry Ybarra MD [address] [place] [address] [address] [place] [address] 01/26/2025 11:30 AM CDT Office Visit [facility] [address] [place] [phone] [place] [address] [place], [place] [phone] documented as of this encounter Goals Goal Patient Goal Type Associated Problems Recent Progress Patient-Stated? 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 08/24/2024 Assessment Noted Time PHQ-9 Depression Total Score: 3 05/02/20 24 1:39 PM CUSTOMER SUPPORT AGENT documented as of this encounter Care Teams Hog Pusher Relationship Specialty [place] [address] [place] [address] PCP - General Family Medicine 04/11/24 Sheryl Stringer, ELI [address] [place] [address] Administrative Law Judge Dietitian, Registered 11/03/17 Federico Linda MD [address] [facility] [address] [place] [address] Assigned Heart and Vascular Provider 03/29/20 Jc Zavala MD [place] [facility] [address] [place] [address] Hematology & Oncology 08/07/21 Cristofer Michelle MD [address] [place] [address] [address] [place] [address] Gastroenterology 07/28/22 Vivien Blanchard MD [address] [place] [address] [address] [place] [address] Urology 07/28/22 Teetee Velazquez PA-C [address] [place] [address] Physician Assembler 05/11/23 eTetee Velazquez PA-C [address] [place] [address] Assigned Surgical Provider 07/01/23 [place] [address] [address] Assigned Musculoskeletal Provider 08/20/23 Lanie Foster, RD, LD [address] [place] [id number] Registered Dietitian Nutrition 05/15/24 [place] [address] [place] [address] Assigned PCP 05/29/24 Melonie Caro [facility] [address] [place] [address] Pharmacist Pharmacist 06/05/24 Federico Linda MD [address] [facility] [facility] [address] [place] [address] Cardiovascular Disease 06/13/24 Melonie Caro RP [address] [place] [address] Assigned MTM Pharmacist 06/29/24 Virgie Lobato PA-C [address] [place] [address] Assigned Nephrology Provider 07/30/24 Barry Ybarra MD [address] [place] [address] Hospitalist Infectious Diseases 08/31/24 documented as of this encounter
--- OUTSIDE RECORDS SUMMARY | 2024-10-25 17:50 | XMS_ITS | Encounter Summary ---
Author Organization [facility] Address [address] [place] [address] Care Team Providers Care Information Security Officer Name Role Phone Sheryl Stringer RD Unavailable [phone] Federico Linda MD Unavailable [phone] Jc Zavala MD Unavailable [phone] Cristofer Michelle MD Unavailable [phone] Vivien Blanchard MD Unavailable [phone] Teetee Velazquez-Javi Unavailable Teetee Velazquez PA-C Unavailable [phone] Brad Mayer DO Unavailable [phone] Mary Garcia MD Primary Care Provider Lanie Foster RD, LD Unavailabl e Mary Garcia MD Unavailable Melonie Caro [facility] Unavailable Federico Linda MD Unavailable [phone] VaniaMelonie duarte [facility] Unavailable [phone] Virgie Lobato PA-C Unavailable [phone] Barry Ybarra MD Unavailable Reason for Visit * Reason Comments UTI 84 yo F presents wit h the following complaint nausea , urgency onset 4 days Encounter Details Date Type Department Care Team (Late st Contact Info) Description 10/25/2024 5:50 PM CDT Office Visit [facility] [place] [address] [place] [address] Vee Mccoy PA-C [address] [place] [address] Dysuria (Primary Dx) Social History Tobacco Use Types Packs/Day Years Used Date Smoking Tobacco: Never Passive Smoke Exposure: Never Smokeless Tobacco: Never Alcohol Use Standard Drinks/Week Comments No 0 (1 standard drink = 0.6 oz pur e alcohol) Social Connection and Isolation Panel [NHANES] A nswer Date Recorded Frequency of Communication with Friends and Fami ly Not on file 10/21/2024 How often do you get together with friends or re latives? Twice a week 10/21/2024 Attends Scientologist Services Not on file 10/21 Active Member of Clubs or Organizations Not on f ile 10/21/2024 Attends Club or Organization Meetings Not on dian e 10/21/2024 Marital Status Not on file 10/21/2024 PHQ-2 Answer Date Recorded PHQ-2 Score 0 10/26/2024 [facility] of Occupat ional Health - Occupational Stress Questionnaire Answer Date Recorded Do you feel stress - tense, restless, nervous, or anxious, or unable to sleep at night because your mind is troubled all the time - these days? Only a little 10/21/2024 Exercise Vital Sign Answer Date Recorde d On average, how many days pe r week do you engage in moderate to strenuous exercise (like a brisk walk)? 1 day 10/21/2024 On average, how many minutes do you engage in exercise at this level? 20 min 10/21/2024 Adolescent Education Answer Date Record ed Getting School Help Needed Not on file 02/27 Food Insecurity Answer Date Recorded Within the past 12 months, d id you worry that your food would run out before you got money to buy more? No 10/21/2024 Within the past 12 months, d id the food you bought just not last and you didn t have money to get more? No 10/21/2024 Housing Stability Answer Date Recorded Do you have housing? (Jadon jerez is defined as stable permanent housing and does not include staying outside in a car, in a tent, in an abandoned building, in an overnight halfway, or couch-surfing.) Yes 10/21/2024 Are you worried about losing your housing? No 10/21/2024 Financial Resource Strain Answer Date R ecorded Within the past 12 months, h ave you or your family members you live with been unable to get utilities (heat, electricity) when it was really needed? No 10/21/2024 Transportation Needs Answer Date Record ed Within the past 12 months, h as lack of transportation kept you from medical appointments, getting your medicines, non-medical meetings or appointments, work, or from getting things that you need? 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 Not on file Not on file Not on file documented as of this encounter Last Filed Vital Signs Vital Sign Reading Time Taken Comments Blood Pressure 144/72 10/25/2024 7:29 PM CDT Pulse 90 10/25/2024 6:24 PM CDT Temperature 36.5 C (97.7 F) 10/25/2024 6:24 PM CDT Respiratory Rate 16 10/25/2024 6:24 PM CDT Oxygen Saturation 98% 10/25/2024 6:24 PM CDT Inhaled Oxygen Concentration - - Weight 75.3 kg (166 lb) 10/25/2024 6:24 PM CDT Height 162.6 cm (5' 4) 10/25/2024 6:24 PM CDT Body Mass Index 28.49 10/25/2024 6:24 PM CDT documented in this encounter Patient Instructions * Attachments The following attachments cannot be sent through Care Everywhere. * Dysuria (Filipino) documented in this encounter Progress Notes * Mily Correia CMA - 10/25/2024 5:50 PM CDT Urgent Care Clinic Visit Chief Complaint Patient presents with UTI 84 yo F presents with the following complaint nausea , urgency onset 4 days 10/25/2024 6:26 PM Additional Questions Roomed by Mily Correia Accompanied by Spouse * Vee Mccoy PA-C - 10/25/2024 5:50 PM CDT Assessment & Plan Dysuria Acute onset 3 days ago. Urinalysis today not suggestive of infection. UA macro: Negative for nitrites, negative for leukocyte esterase. UA micro: Negative for white blood cells. Urine culture is pending. Patient will be notified if any positive finding and we will treat as indicated. Patient has anappointment with PCP tomorrow for her annual wellness visit. Will discuss with PCP if any worseningsymptoms in the interim. Patient is discharged from urgent care in no acute distress. - UA Macroscopic with reflex to Microscopic and Culture - Lab Collect - UA Microscopic with Reflex to Culture - Urine Culture Aerobic Bacterial - lab collect Return in about 1 day (around 10/26/2024) for Recheck with PCP. Vee [facility]cc[facility] 84 year [facility] female who presents to clinic today for the following health issues: Chief Complaint Patient presents with UTI 84 yo F presents with the following complaint nausea , urgency onset 4 days 10/25/2024 6:26 PM Additional Questions Roomed by Mily Correia Accompanied by Spouse HPI Patient with medical history significant for heart failure, CKD, diabetes, hypertension, hyperlipidemia, CAD, recurrent UTIs, sepsis followed by urology and infectious disease presenting to urgent care today with complaint of dysuria. Onset of symptoms 3 days ago. 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 Per chart review patient had a normal cystoscopy on 09/13. She tells me today she is using topical estrogen, probiotics, cranberry tablets. She has an appointment with urology on November 16 for urodynamic studies. Patient denies hematuria, abnormal vaginal discharge, fevers. Last seen by infectious disease a month ago 09/28/2024. Notes reviewed. Review of Systems Constitutional, HEENT, cardiovascular, pulmonary, GI, , musculoskeletal, neuro, skin, endocrine and psych systems are negative, except as otherwise noted. Objective BP (!) 144/72 Pulse 90 Temp 97.7 ??F (36.5 ??C) Resp 16 Ht 1.626 m (5' 4) Wt 75.3 kg (166 lb) LMP (LMP Unknown) SpO2 98% BMI 28.49 kg/m?? Physical Exam GENERAL: alert and no distress RESP: lungs clear to auscultation - no rales, rhonchi or wheezes CV: regular rate and rhythm, normal S1 S2 ABDOMEN: soft, mild lower pelvic discomfort, no hepatosplenomegaly, no masses and bowel sounds normal Results for orders placed or performed in visit on 10/25/24 (from the past 24 hours) UA Macroscopic with reflex to Microscopic and Culture - Lab Collect Specimen: Urine, Midstream Result Value Ref Range Color Urine Yellow Colorless, Straw, Light Yellow, Yellow Appearance Urine Clear Clear Glucose Urine Negative Negative mg/dL Bilirubin Urine Negative Negative Ketones Urine Negative Negative mg/dL Specific [place] Urine 1.015 1.003 - 1.035 Blood Urine Trace (A) Negative pH Urine 6.5 5.0 - 7.0 Protein Albumin Urine 100 (A) Negative mg/dL Urobilinogen Urine 0.2 0.2, 1.0 E.U./dL Nitrite Urine Negative Negative Leukocyte Esterase Urine Negative Negative UA Microscopic with Reflex to Culture Result Value Ref Range Bacteria Urine Few (A) None Seen /HPF RBC Urine 2-5 (A) 0-2 /HPF /HPF WBC Urine 0-5 0-5 /HPF /HPF Squamous Epithelials Urine Moderate (A) None Seen /LPF Mucus Urine Present (A) None Seen /LPF Narrative Urine Culture not indicated *Note: Due to a large number of results and/or encounters for the requested time period, some results have not been displayed. A complete set of results can be found in Results Review. documented in this encounter Plan of Treatment Upcoming Encounters Date Type Department Care Team (Late st Contact Info) Description 11/16/2024 1:00 PM CDT Allied Health/Nurse Visit [facility] [address] [phone] Lucero Britt PA-C [address] [place], [place] [phone] 11/16/2024 2:45 PM CDT Office Visit [facility] [address] [phone] Vivien Blanchard MD [address] [facility] [address] [place], [place] [phone] 11/20/2024 3:30 PM CDT Office Visit [address] [phone] [place] [address] [place] [address] 11/22/2024 9:15 AM CDT Office Visit [facility] [address] [facility] [address] [place] [phone] Federico Linda MD [address] [facility] [address] [place] [address] 11/30/2024 10:[address] [facility] [address] [place] [phone] 12/06/2024 10:10 AM CDT Office Visit [facility] [address] [facility] [address] [place] [phone] Virgie Lobato PAAnthonyC [address] [place] [address] 12/28/2024 11:00 AM CDT Office Visit [facility] [address] [phone] [place] [address] [place] [address] 01/26/2025 11:30 AM CDT Office Visit [facility] [address] [place] [phone] [place] [address] [place] [address] documented as of this encounter Goals Goal Patient Goal Type Associated Problems Recent Progress Patient-Stated? Author Problem Solving General On track( 019 9:24 AM NICKEL PLATER) Yes Sheryl Stringer, ELI Note: My Goal: I will reduce risk of low blood sugars over-night What I need to meet my goal: follow instructions for taking Novolog before meals only I plan to meet my goal by this date: 1 week documented as of this encounter Procedures Procedure Name Priority Date/Time Associated Diagnosis Comments UA MICROSCOPIC WITH REFLEX TO CULTURE Routine 10/25/2024 5:58 PM CDT Dysuria UA MACROSCOPIC WITH REFLEX TO MICRO AND CULTURE Routine 10/25/2024 5:58 PM CDT Dysuria URINE CULTURE Add-On 10/25/2024 5:58 PM CDT Dysuria documented in this encounter Results * Urine Culture Aerobic Bacterial - lab collect (10/25/2024 5:58 PM CDT) Culture <10,000 CFU/mL Mixture of Urogenital Savita 10/27/2024 8:22 AM CDT [facility] Urine MID-STREAM URINE SPECIMEN / Unknown Non-blood Collection / Unknown 10/25/2024 5:58 PM CDT 10/25/2024 5:58 PM CDT Vee Mccoy PA-C LAB - MICRO GENERAL ORD ERABLES Final Result [facility] Inf. Diseases Diag. Lab [address] [facility] [place] [address] * (ABNORMAL) UA Microscopic with Reflex to Culture (10/25/2024 5:58 PM CDT) Bacteria Urine Few(A) None Seen /HPF [facility] 10/25/2024 6:08 PM CDT [facility] RBC Urine 2-5(A) 0-2 /HPF /HPF [facility] 10/25/2024 6:08 PM CDT [facility] WBC Urine 0-5 0-5 /HPF /HPF [facility] 10/25/2024 6:08 PM CDT [facility] Squamous Epithelials Urine Moderate( A) None Seen /LPF [facility] 10/25/2024 6:08 PM CDT [facility] Mucus Urine Present(A ) None Seen /LPF [facility] 10/25/2024 6:08 PM CDT [facility] Urine MID-STREAM URINE SPECIMEN / Unknown Non-blood Collection / Unknown 10/25/2024 5:58 PM CDT 10/25/2024 5:58 PM CDT Narrative [facility] - 10/25/2024 6:08 PM CDT Urine Culture not indicated Vee Mccoy PA-C LAB - URINE ORDERABLES Final Result [facility] [address] [facility] Lab (no room number, 1st floor of clinic) [place] [address], [facility] * (ABNORMAL) UA Macroscopic with reflex to Microscopic and Culture - Lab Collect (10/25/2024 5:58 PM CDT) Color Urine Yellow Colorless, Straw, Light Yellow, Yellow 10/25/2024 6:07 PM CDT LABORATORY Appearance Urine Clear Clear 10/26/19 6:07 PM CDT LABORATORY Glucose Urine Negative Negative mg/dL 10/25/2024 6:07 PM CDT LABORATORY Bilirubin Urine Negative Negative 6:07 PM CDT LABORATORY Ketones Urine Negative Negative mg/dL 10/25/2024 6:07 PM CDT LABORATORY Specific [place] Urine 1.015 1.003 - 1.035 10/25/2024 6:07 PM CDT LABORATORY Blood Urine Trace(A) Negative 10/25/2024 6:07 PM CDT LABORATORY pH Urine 6.5 5.0 - 7.0 10/25/2024 6:07 PM CDT LABORATORY Protein Albumin Urine 100(A) Negative mg/dL 10/25/2024 6:07 PM CDT LABORATORY Urobilinogen Urine 0.2 0.2, 1.0 E.U./dL 10/25/2024 6:07 PM CDT LABORATORY Nitrite Urine Negative Negative 10/25/2024 6:07 PM CDT LABORATORY Leukocyte Esterase Urine Negative Negative 10/25/2024 6:07 PM CDT [facility] Urine MID-STREAM URINE SPECIMEN / Unknown Non-blood Collection / Unknown 10/25/2024 5:58 PM CDT 10/25/2024 5:58 PM CDT Vee Mccoy PA-C LAB - URINE ORDERABLES Final Result [facility] [address] [facility] ([facility] number, 1st floor of clinic) [place] [address], [facility] documented in this encounter Visit Diagnoses Diagnosis Dysuria- Primary documented in this encounter Additional Health Concerns Infection Onset Date Last Indicated Resolved Time ESBL 07/05/2024 08/24/2024 Assessment Noted Time PHQ-9 Depression Total Score: 1 10/26/19 25 10:33 AM CDT documented as of this encounter Care Teams Information Security Officer Relationship Specialty [place] [address] [place] [address] PCP - General Family Medicine 04/11/[address] [place] [address] Enameler Dietitian, Registered 11/03/17 Federico Linda MD [address] [facility] [address] [place], [place] [address] Assigned Heart and Vascular Provider 03/29/20 Jc Zavala MD [place] [facility] [address] [place], [place] [address] Hematology & Oncology 08/07/21 Cristofer Michelle MD [address] [facility] [address] [place], [place] [address] Gastroenterology 07/28/22 Vivien Blanchard MD [address] [place] [address] [address] [place] [address] Urology 07/28/22 Teetee Velazquez, PA-C [address] [place] [address] Physician Environmental Construction Engineer 05/11/23 Teetee Velazquez PA-C [address] [place] [address] Assigned Surgical Provider 07/01/23 [place] [address] [address] , [address] [address] Assigned Musculoskeletal Provider 08/20/23 Lanie Foster, RD, LD [address] [place], [place] [phone] Registered Dietitian Nutrition 05/15/24 [place] [address] [place] [address] Assigned PCP 05/29/24 Melonie Caro [facility] [address] [place], [place] [phone] Pharmacist Pharmacist 06/05/24 Federico Linda MD [address] [id number] Cardiovascular Disease 06/13/24 Melonie Caro [facility] [address] [place] [address] Assigned MTM Pharmacist 06/29/24 Virgie Lobato PA-C [address] [place] [address] Assigned Nephrology Provider 07/30/24 Barry Ybarra MD [facility] [address] Hospitalist Infectious Diseases 08/31/24 documented as of this encounter
--- OUTSIDE RECORDS SUMMARY | 2024-10-26 11:00 | XMS_ITS | Encounter Summary ---
Author Organization [facility] Address [address] [place] [address] Care Team Providers Care Fish Inspector Name Role Phone Sheryl Stringer RD Unavailable [phone] Federico Linda MD Unavailable [phone] Jc Zavala MD Unavailable [phone] Cristofer Michelle MD Unavailable Vivien Blanchard MD Unavailable Teetee Velazquez-Javi Unavailable Teetee Velazquez PA-C Unavailable [phone] Brad Mayer DO Unavailable [phone] Mary Garcia MD Primary Care Provider Lanie Foster RD, LD Unavailabl e Mary Garcia MD Unavailable Melonie Caro [facility] Unavailable Federico Linda MD Unavailable [phone] Melonie Caro [facility] Unavailable [phone] Virgie Lobato PA-C Unavailable [phone] Barry Ybarra MD Unavailable [phone] Reason for Visit * Reason Comments Annual Visit Medicare annual Well ness visit Kidney Problem Follow-up CKD Encounter Details Date Type Department Care Team (Late st Contact Info) Description 10/26/2024 11:00 AM CDT Office Visit [facility] [id number] [place] [id number] [place] [address] [place] [address] Medicare annual wellness visit, subsequent; Stage 3b chronic kidney disease (H); External hemorrhoids; Dysuria; Lipid screening Social History Tobacco Use Types Packs/Day Years Used Date Smoking Tobacco: Never Passive Smoke Exposure: Never Smokeless Tobacco: Never Tobacco Cessation:Counseling Given: Not Answered Alcohol Use Standard Drinks/Week Comments No 0 (1 standard drink = 0.6 oz pur e alcohol) Social Connection and Isolation Panel [NHANES] A nswer Date Recorded Frequency of Communication with Friends and Fami ly Not on file 10/21/2024 How often do you get together with friends or re latives? Twice a week 10/21/2024 Attends Mosque Services Not on file 10/21 Active Member of Clubs or Organizations Not on f ile 10/21/2024 Attends Club or Organization Meetings Not on dian e 10/21/2024 Marital Status Not on file 10/21/2024 PHQ-2 Answer Date Recorded PHQ-2 Score 0 10/26/2024 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 Not on file Not on file Not on file documented as of this encounter Last Filed Vital Signs Vital Sign Reading Time Taken Comments Blood Pressure 138/66 10/26/2024 11:24 AM CDT Pulse 80 10/26/2024 10:53 AM CDT Temperature 36.6 C (97.9 F) 10/26/2024 10:44 AM CDT Respiratory Rate 20 10/26/2024 10:44 AM CDT Oxygen Saturation 94% 10/26/2024 10:44 AM CDT Inhaled Oxygen Concentration - - Weight 75.3 kg (166 lb) 10/26/2024 10:44 AM CDT Height 161.3 cm (5' 3.5) 10/26/2024 10:44 AM CD T Body Mass Index 28.94 10/26/2024 10:44 AM CDT documented in this encounter Progress Notes * Mary Garcia MD - 10/26/2024 11:00 AM CDT Images from the original note were not included. Preventive Care Visit [facility] Mary Garcia MD, Family Medicine October 26, 2024 Assessment & Plan Nova Live is a 84 year old female with history of CHF with preserved ejection fraction, type 2 diabetes, breast cancer history , hyperlipidemia, and hypertension Medicare annual wellness exam Discussed healthy eating Discussed maintaining ideal weight Discussed diet and low salt (N18.32) Stage 3b chronic kidney disease (H) Comment: patient is following with the Nephrology Plan: Basic metabolic panel (Ca, Cl, CO2, Creat, Gluc, K, Na, BUN) (K64.4) External hemorrhoids Comment: Plan: hydrocortisone, Perianal, (HYDROCORTISONE) 2.5 % cream Large external hemorrhoids . (R30.0) Dysuria Comment: Plan: UA Macroscopic with reflex to Microscopic and Culture - Lab Collect, CBC with platelets, fosfomycin (MONUROL) 3 g Packet, UA Microscopic with Reflex to Culture Urine culture pending Will wait for results , some fatigue but no fever or pain with urination Recommend ER visit if symptoms fail to improve , history of ESBL Urinary tract infection . (Z13.220) Lipid screening Comment: Plan: Lipid panel reflex to direct LDL Non-fasting Counseling Appropriate preventive services were addressed with this patient via screening, questionnaire, or discussion as appropriate for fall prevention, nutrition, physical activity, Tobacco-use cessation, social engagement, weight loss and cognition. Checklist reviewing preventive services available has been given to the patient. Reviewed patient's diet, addressing concerns and/or questions. She is at risk for lack of exercise and has been provided with information to increase physical activity for the benefit of her well-being. The patient was instructed to see the dentist every 6 months. Discussed possible causes of fatigue. Information on urinary incontinence and treatment options given to patient. Subjective Bailey is a 84 year old, presenting for the following: Annual Visit (Medicare annual Wellness visit) and Kidney Problem (Follow-up CKD) 10/26/2024 10:50 AM Additional Questions Roomed by Yee Galicia Accompanied by spouse, Rickey Kidney Problem History of Present Illness- Bailey Live, 84-year-old female - Reports presence of hemorrhoids, believes they are bleeding. - Experiences fresh blood in stool, suspects it is due to hemorrhoids. - No constipation reported, but unpredictable bowel movements. - Reports chills and burning with urination for 4 days. - No fever reported. - Has a history of recurrent urinary infections. - Reports difficulty managing salt intake due to dietary restrictions related to diabetes. Advance Care Planning Discussed advance care planning with patient; informed AVS has link to [facility] [employer]. 10/21/2024 General Health How would you rate your overall physical health? (!) FAIR Feel stress (tense, anxious, or unable to sleep) Only a little (!) STRESS CONCERN 10/21/2024 Nutrition Diet: Low salt Diabetic Carbohydrate counting Multiple values from one day are sorted in reverse-chronological order 10/21/2024 Exercise Days per week of moderate/strenous exercise 1 day Average minutes spent exercising at this level 20 min (!) EXERCISE CONCERN 10/21/2024 Social Factors Frequency of gathering with friends or relatives Twice a week Worry food won't last until get money to buy more No Food not last or not have enough money for food? No Do you have housing? (Housing is defined as stable permanent housing and does not include staying outside in a car, in a tent, in an abandoned building, in an overnight long-term, or couch-surfing.) Yes Are you worried about losing your housing? No Lack of transportation? No Unable to get utilities (heat,electricity)? No 10/26/2024 Fall Risk Gait Speed Test (Document in seconds) 4.92 Gait Speed Test Interpretation Less than or equal to 5.00 seconds - PASS 10/21/2024 Activities of Daily Living- Home Safety Needs help with the following daily activites None of the above Safety concerns in the home None of the above 10/21/2024 Dental Dentist two times every year? (!) NO 10/21/2024 Hearing Screening Hearing concerns? None of the above 10/21/2024 Driving Risk Screening Patient/family members have concerns about driving No 10/21/2024 General Alertness/Fatigue Screening Have you been more tired than usual lately? (!) YES 10/21/2024 Urinary Incontinence Screening Bothered by leaking urine in past 6 months Yes Today's PHQ-9 Score: 10/25/2024 10:33 AM PHQ-9 SCORE PHQ-9 Total Score MyChart 1 (Minimal depression) PHQ-9 Total Score 1 Patient-reported 10/21/2024 Substance Use Alcohol more than 3/day or more than 7/wk Not Applicable Do you have a current opioid prescription? No How severe/bad is pain from 1 to 10? 1/10 Do you use any other substances recreationally? (!) PRESCRIPTION DRUGS Social History Tobacco Use Smoking status: Never Passive exposure: Never Smokeless tobacco: Never Vaping Use Vaping status: Never Used Substance Use Topics Alcohol use: No Drug use: No Mammogram Screening - Mammogram every 1-2 years updated in Health Maintenance based on mutual decision making Reviewed and updated as needed this visit by Provider Past Medical History: Diagnosis Date Acute on [...] not stated as uncontrolled Past Surgical History: Procedure Laterality Date ANGIOGRAM [...] ZZHC COLONOSCOPY THRU STOMA, DIAGNOSTIC 10/2003 Normal Current providers sharing in care for this patient include: Patient Care Team: Mary Garcia MD as PCP - General (Family Medicine) Sheryl Stringer RD as Joy Operator Helper (Dietitian, Registered) Federico Linda MD as Assigned Heart and Vascular Provider Jc Zavala MD as MD (Hematology & Oncology) Cristofer Michelle MD as MD (Gastroenterology) Vivien Blanchard MD as MD (Urology) Teetee Velazquez PA-C as Physician Diver Pumper Teetee Velazquez PA-C as Assigned Surgical Provider Brad Mayer DO as Assigned Musculoskeletal Provider Lanie Foster RD, LD as Registered Dietitian (Nutrition) Mary Garcia MD as Assigned PCP Melonie Caro RPH as Pharmacist (Pharmacist) Federico Linda MD as MD (Cardiovascular Disease) Melonie Caro RPH as Assigned MTM Pharmacist Virgie Lobato PA-C as Assigned Nephrology Provider Barry Ybarra MD as Hospitalist (Infectious Diseases) The following health maintenance items are reviewed in Epic and correct as of today: Health Maintenance Topic Date Due HF ACTION PLAN Never done RSV VACCINE (1 - 1-dose 75+ series) Never done COVID-19 Vaccine ( season) 2024 MEDICARE ANNUAL WELLNESS VISIT 07/29/2024 LIPID 09/16/2024 MICROALBUMIN 09/26/2024 BMP 12/21/2024 A1C 01/14/2025 INFLUENZA VACCINE (Season Ended) 2025 EYE EXAM 02/16/2025 HEMOGLOBIN 03/23/2025 PHQ-9 04/28/2025 MAMMO SCREENING 06/12/2025 DIABETIC FOOT EXAM 07/28/2025 ANNUAL REVIEW OF HM ORDERS 07/28/2025 ALT 09/21/2025 CBC 09/21/2025 FALL RISK ASSESSMENT 10/26/2025 ADVANCE CARE PLANNING 07/29/2028 DTAP/TDAP/TD IMMUNIZATION (5 - Td or Tdap) 07/27/2029 DEXA 06/12/2035 PARATHYROID Completed PHOSPHORUS Completed TSH W/FREE T4 REFLEX Completed DEPRESSION ACTION PLAN Completed Pneumococcal Vaccine: 50+ Years Completed URINALYSIS Completed ALK PHOS Completed ZOSTER IMMUNIZATION Completed HPV IMMUNIZATION Aged Out MENINGITIS IMMUNIZATION Aged Out COLORECTAL CANCER SCREENING Discontinued Review of Systems CONSTITUTIONAL: NEGATIVE for fever, chills, change in weight INTEGUMENTARY/SKIN: NEGATIVE for worrisome rashes, moles or lesions EYES: NEGATIVE for vision changes or irritation ENT/MOUTH: NEGATIVE for ear, mouth and throat problems RESP: NEGATIVE for significant cough or SOB BREAST: NEGATIVE for masses, tenderness or discharge CV: NEGATIVE for chest pain, palpitations or peripheral edema GI: NEGATIVE for nausea, abdominal pain, heartburn, or change in bowel habits : NEGATIVE for frequency, dysuria, or hematuria MUSCULOSKELETAL: NEGATIVE for significant arthralgias or myalgia NEURO: NEGATIVE for weakness, dizziness or paresthesias ENDOCRINE: NEGATIVE for temperature intolerance, skin/hair changes HEME: NEGATIVE for bleeding problems PSYCHIATRIC: NEGATIVE for changes in mood or affect Objective Exam BP (!) 143/77 (BP Location: Right arm, Patient Position: Chair, Cuff Size: Adult Large) Pulse 80 Temp 97.9 ??F (36.6 ??C) (Oral) Resp 20 Ht 1.613 m (5' 3.5) Wt 75.3 kg (166 lb) LMP (LMP Unknown) SpO2 94% BMI 28.94 kg/m?? Estimated body mass index is 28.94 kg/m?? as calculated from the following: Height as of this encounter: 1.613 m (5' 3.5). Weight as of this encounter: 75.3 kg (166 lb). Physical Exam GENERAL: alert and no distress EYES: Eyes grossly normal to inspection, PERRL and conjunctivae and sclerae normal HENT: ear canals and TM's normal, nose and mouth without ulcers or lesions NECK: no adenopathy, no asymmetry, masses, or scars RESP: lungs clear to auscultation - no rales, rhonchi or wheezes CV: regular rate and rhythm, normal S1 S2, no S3 or S4, no murmur, click or rub, no peripheral edema ABDOMEN: soft, nontender, no hepatosplenomegaly, no masses and bowel sounds normal MS: no gross musculoskeletal defects noted, no edema SKIN: no suspicious lesions or rashes NEURO: Normal strength and tone, mentation intact and speech normal PSYCH: mentation appears normal, affect normal/bright 10/26/2024 Mini Cog Clock Draw Score 2 Normal 3 Item Recall 3 objects recalled Mini Cog Total Score 5 Signed Electronically by: Mary Garcia MD Answers submitted by the patient for this visit: Patient Health Questionnaire (Submitted on 10/25/2024) If you checked off any problems, how difficult have these problems made it for you to do your work,take care of things at home, or get along with other people?: Not difficult at all PHQ9 TOTAL SCORE: 1 documented in this encounter Plan of Treatment Upcoming Encounters Date Type Department Care Team (Late st Contact Info) Description 11/16/2024 1:00 PM CDT Allied Health/Nurse Visit [facility] [address] 4th [place] [address] Lucero Britt PA-C [address] [place] [phone] 11/16/2024 2:45 PM CDT Office Visit [facility] [place] [address] [facility] 4th [place] [phone] Vivien Blanchard MD [address] [facility] [address] [place], [place] [phone] 11/20/2024 3:30 PM CDT Office Visit [facility] [address] [place] [phone] [place] [address] [place] [address] 11/22/2024 9:15 AM CDT Office Visit [facility] Heart [facility] [address] [facility] [address] [place] [phone] Federico Linda MD [address] [facility] [address] [place], [place] [address] 11/30/2024 10:30 AM CDT Lab [facility] [address] [place] [phone] 12/06/2024 10:10 AM CDT Office Visit [facility] Specialty [facility] [address] [facility] [address] [place] [phone] Virgie Lobato PA-C [address] [place] [address] 12/28/2024 11:00 AM CDT Office Visit [facility] [address] [facility] [address] [place] [phone] [place] [address] [place] [address] 200 [place] [address] 01/26/2025 11:30 AM CDT Office Visit [facility] [address] [place] [phone] [place] [address] [place], [place] [phone] Scheduled Orders Name Type Priority Associated Diagnoses Orde r Schedule Basic metabolic panel (Ca, Cl, CO2, Creat, Gluc, K, Na, BUN) Lab Routine Stage 3b chronic kidney disease (H) Ordered: 10/26/2024 documented as of this encounter Goals Goal Patient Goal Type Associated Problems Recent Progress Patient-Stated? Author Problem Solving General On track( 019 9:24 AM CARD WRITER HAND) Yes Sheryl Stringer, ELI Note: My Goal: I will reduce risk of low blood sugars over-night What I need to meet my goal: follow instructions for taking Novolog before meals only I plan to meet my goal by this date: 1 week documented as of this encounter Procedures Procedure Name Priority Date/Time Associated Diagnosis Comments UA MICROSCOPIC WITH REFLEX TO CULTURE Routine 10/26/2024 11:47 AM CDT Dysuria UA MACROSCOPIC WITH REFLEX TO MICRO AND CULTURE Routine 10/26/2024 11:47 AM CDT Dysuria LIPID REFLEX TO DIRECT LDL PANEL Routine 10/26/2024 11:35 AM CDT Lipid screening CBC WITH PLATELETS Routine 10/26/2024 11 :35 AM CDT Dysuria documented in this encounter Results * (ABNORMAL) UA Microscopic with Reflex to Culture (10/26/2024 11:47 AM CDT) Bacteria Urine Few(A) None Seen /HPF [facility] 10/26/2024 11:57 AM CDT [facility] RBC Urine 0-2 0-2 /HPF /HPF [facility] 10/26/2024 11:57 AM CDT [facility] WBC Urine 5-10(A) 0-5 /HPF /HPF [facility] 10/26/2024 11:57 AM CDT LABORATORY Squamous Epithelials Urine Moderate( A) None Seen /LPF [facility] 10/26/2024 11:57 AM CDT [facility] Hyaline Casts Urine 2-5(A) None Seen /LPF [facility] 10/26/2024 11:57 AM CDT LABORATORY Urine URINE SPECIMEN OBTAINED BY CLEAN CATCH PROCEDURE / Unknown Non-blood Collection / Unknown 10/26/2024 11:47 AM CDT 10/26/2024 11:48 AM CDT Narrative [facility] - 10/26/2024 11:57 AM CDT Urine Culture not indicated us Mary Garcia MD LAB - URINE ORDERABLES Final Res ult LABORATORY [facility] [address] [facility] (no room number, 1st floor of clinic) [place] [address], [facility] * (ABNORMAL) UA Macroscopic with reflex to Microscopic and Culture - Lab Collect (10/26/2024 11:47 AMCDT) Color Urine Yellow Colorless, Straw, Light Yellow, Yellow 10/26/2024 11:52 AM CDT LABORATORY Appearance Urine Clear Clear 10/27/19 11:52 AM CDT LABORATORY Glucose Urine Negative Negative mg/dL 10/26/2024 11:52 AM CDT LABORATORY Bilirubin Urine Negative Negative 11:52 AM CDT LABORATORY Ketones Urine Negative Negative mg/dL 10/26/2024 11:52 AM CDT LABORATORY Specific [place] Urine 1.020 1.003 - 1.035 10/26/2024 11:52 AM CDT LABORATORY Blood Urine Trace(A) Negative 10/26/2024 11:52 AM CDT LABORATORY pH Urine 5.5 5.0 - 7.0 10/26/2024 11:52 AM CDT LABORATORY Protein Albumin Urine >=300(A) Negative mg/dL 10/26/2024 11:52 AM CDT LABORATORY Urobilinogen Urine 0.2 0.2, 1.0 E.U./dL 10/26/2024 11:52 AM CDT [facility] Nitrite Urine Negative Negative 10/26/2024 11:52 AM CDT [facility] Leukocyte Esterase Urine Trace(A) Negative 10/26/2024 11:52 AM CDT [facility] Urine URINE SPECIMEN OBTAINED BY CLEAN CATCH PROCEDURE / Unknown Non-blood Collection / Unknown 10/26/2024 11:47 AM CDT 10/26/2024 11:48 AM CDT us Mary Garcia MD LAB - URINE ORDERABLES Final Res ult [facility] [address] [facility] (no room number, 1st floor of clinic) [place] [address] * (ABNORMAL) CBC with platelets (10/26/2024 11:35 AM CDT) WBC Count 11.6(H) 4.0 - 11.0 10e3/uL 10/26/2024 11:38 AM CDT [facility] RBC Count 4.22 3.80 - 5.20 10e6/uL 10/26/2024 11:38 AM CDT [facility] Hemoglobin 12.2 11.7 - 15.7 g/dL 10/26/2024 11:38 AM CDT [facility] Hematocrit 38.0 35.0 - 47.0 % 10/26/2024 11:38 AM CDT [facility] MCV 90 78 - 100 fL 10/26/2024 11:38 AM CDT [facility] MCH 28.9 26.5 - 33.0 pg 10/26/2024 11:38 AM CDT [facility] MCHC 32.1 31.5 - 36.5 g/dL 10/26/2024 11:38 AM CDT [facility] RDW 14.1 10.0 - 15.0 % 10/26/2024 11:38 AM CDT [facility] Platelet Count 336 150 - 450 10e3/uL 10/26/2024 11:38 AM CDT [facility] Blood BLOOD SPECIMEN / Unknown Venipuncture / Unknown 10/26/2024 11:35 AM CDT 10/26/2024 11:35 AM CDT us Mary Garcia MD LAB - BLOOD ORDERABLES Final Res ult [facility] [address] [facility] (no room number, 1st floor of clinic) [place] [address], [facility] * (ABNORMAL) Lipid panel reflex to direct LDL Non-fasting (10/26/2024 11:35 AM CDT) Cholesterol 113 <200 mg/dL 10/27/2024 8:28 AM CDT [facility] Triglycerides 126 <150 mg/dL 10/27/2024 8:28 AM CDT [facility] Direct Measure HDL 47(L) >=50 mg/dL 2024 8:28 AM CDT [facility] LDL Cholesterol Calculated 41 <100 mg/dL 10/27/2024 8:28 AM CDT [facility] Non HDL Cholesterol 66 <130 mg/dL 10/27/2024 8:28 AM CDT [facility] Patient Fasting > 8hrs? No 10/27/2024 8:28 AM CDT [facility] Blood BLOOD SPECIMEN / Unknown Venipuncture / Unknown 10/26/2024 11:35 AM CDT 10/26/2024 11:35 AM CDT Narrative [facility] - 10/27/2024 8:28 AM CDT Cholesterol Desirable: < 200 mg/dL Borderline High: 200 - 239 mg/dL High: >= 240 mg/dL Triglycerides Normal: < 150 mg/dL Borderline High: 150 - 199 mg/dL High: 200-499 mg/dL Very High: >= 500 mg/dL Direct Measure HDL Female: >= 50 mg/dL Male: >= 40 mg/dL LDL Cholesterol Desirable: < 100 mg/dL Above Desirable: 100 - 129 mg/dL Borderline High: 130 - 159 mg/dL High: 160 - 189 mg/dL Very High: >= 190 mg/dL Non HDL Cholesterol Desirable: < 130 mg/dL Above Desirable: 130 - 159 mg/dL Borderline High: 160 - 189 mg/dL High: 190 - 219 mg/dL Very High: >= 220 mg/dL us Mary Garcia MD LAB - BLOOD ORDERABLES Final Res ult [facility] [address] [facility] [address] [place] [address], [facility] documented in this encounter Visit Diagnoses Diagnosis Medicare annual wellness visit, subsequent Routine general medical examination at a health care facility Stage 3b chronic kidney disease (H) External hemorrhoids External hemorrhoids without mention of complication Dysuria Lipid screening Screening for lipoid disorders documented in this encounter Additional Health Concerns Infection Onset Date Last Indicated Resolved Time ESBL 07/05/2024 08/24/2024 Assessment Noted Time PHQ-9 Depression Total Score: 1 10/26/19 25 10:33 AM CDT documented as of this encounter Care Teams Fish Inspector Relationship Specialty [place] [address] [place] [address] PCP - General Family Medicine 04/11/[address] [facility] [address] [place] [address] [place] [address] Joy Operator Helper Dietitian, Registered 11/03/17 Federico Linda MD [address] [facility] [address] [place] [address] Assigned Heart and Vascular Provider 03/29/20 Jc Zavala MD [facility] [address] [place], [place] [address] Hematology & Oncology 08/07/21 Cristofer Michelle MD [address] [facility] [address] [place] [address] Gastroenterology 07/28/22 Vivien Blanchard MD [address] [facility] [address] [place] [address] Urology 07/28/22 Teetee Velazquez PA-C [address] [place] [address] Physician Diver Pumper 05/11/23 Teetee Velazquez PA-C [address] [place] [address] Assigned Surgical Provider 07/01/23 [place] [address] [facility] [address] [address] Assigned Musculoskeletal Provider 08/20/23 Lanie Foster, RD, LD [address] [place] [id number] Registered Dietitian Nutrition 05/15/24 [place] [address] [place] [address] Assigned PCP 05/29/24 Melonie Caro [facility] [address] [place] [address] Pharmacist Pharmacist 06/05/24 Federico Linda MD [address] [facility] [address] [place] [address] Cardiovascular Disease 06/13/24 Melonie Caro [facility] [address] [place] [address] Assigned MTM Pharmacist 06/29/24 Virgie Lobato PA-C [address] [place] [address] Assigned Nephrology Provider 07/30/24 Barry Ybarra MD [facility] [address] Hospitalist Infectious Diseases 08/31/24 documented as of this encounter
--- OUTSIDE RECORDS SUMMARY | 2024-11-06 21:50 | XMS_ITS | Encounter Summary ---
Author Organization [place] Address [address] [place] [address] Care Team Providers Care Product Development Consultant Name Role Phone Sheryl Stringer RD Unavailable [phone] Federico Linda MD Unavailable [phone] Jc Zavala MD Unavailable [phone] Cristofer Michelle MD Unavailable Vivien Blanchard MD Unavailable Teetee Velazquez-Javi Unavailable [phone] Teetee Velazquez PA-C Unavailable [phone] Brad Mayer DO Unavailable [phone] Mary Garcia MD Primary Care Provider Lanie Foster RD, LD Unavailabl e Mary Garcia MD Unavailable Melonie Caro [facility] Unavailable [phone] Federico Linda MD Unavailable [phone] VaniaLiborio duartetlin [facility] Unavailable [phone] Virgie Lobato PA-C Unavailable [phone] Barry Ybarra MD Unavailable [phone] Barry Ybarra MD Unavailable [phone] Reason for Visit * Reason Comments Abdominal Pain Nausea & Vomiting Encounter Details Date Type Department Care Team (Late st Contact Info) Description 11/06/2024 9:50 PM CDT - 11/07/2024 12:36 AM CDT [facility] Emergency Dept [address] [place] [address] Catherine Szymanski MD [facility] [address] [place], [place] [id number] UTI (urinary tract infection) with pyuria Discharge Disposition: Home or Self Care Social [...] re latives? Twice a week 10/21/2024 Attends [employer] Services Not on file 10/21 Active Member of Clubs or Organizations Not on f ile 10/21/2024 Attends Club or Organization Meetings Not on dian e 10/21/2024 Marital Status Not on file 10/21/2024 PHQ-2 Answer Date Recorded PHQ-2 Score 0 10/26/2024 [facility] of Occupat ional Health - Occupational Stress [...] Date Recorded Do you have housing? 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 Not on file Not on file Not on file documented as of this encounter Last Filed Vital Signs Vital Sign Reading Time Taken Comments Blood Pressure 151/83 11/07/2024 12:35 AM CDT Pulse 89 11/06/2024 8:44 PM CDT Temperature 36.7 C (98 F) 11/06/2024 8:23 PM CDT Respiratory Rate 16 11/06/2024 8:44 PM CDT Oxygen Saturation 98% 11/07/2024 12:35 AM CDT Inhaled Oxygen Concentration - - Weight 75 kg (165 lb 5.5 oz) 11/06/2024 8:23 PM CDT Height 162.6 cm (5' 4) 11/06/2024 8:23 PM CDT Body Mass Index 28.38 11/06/2024 8:23 PM CDT documented in this encounter Discharge Instructions * Discharge Instructions* Catherine Szymanski MD - 11/07/2024 12:24 AM CDT Next dose of antibiotic tomorrow morning Zofran as needed for nausea Push fluids and rest Return if fever, severe pain, worsening symptoms, can't keep anything down * Attachments The following attachments cannot be sent through Care Everywhere. * UTI (Urinary Tract Infection): Female (Albanian) documented in this encounter Medications at Time [...] 09/18/2024 Glucagon (BAQSIMI) 3 MG/DOSE nasal powder [place] 1 spray in nostril. 08/28/2024 hydrocortisone, Perianal, (HYDROCORTISONE) 2.5 % creamIndications:E xternal hemorrhoids Place rectally 2 times daily as needed for hemorrhoids. 30 g 1 10/26/2024 Insulin Disposable Pump (OMNIPOD DASH 5 PACK PODS) MISCIndications:Ty pe 2 diabetes mellitus with stage 3 chronic kidney disease, with long-term current use of insulin (H) 1 pod every 48 hours 15 each 11 05/23/2021 insulin lispro (HUMALOG VIAL) 100 UNIT/ML [...] DASH (updated 09/01/2024) Basal Rates and Times: 6411-5939: 1.5 units/hour 9446-4696: 1.8 units/hour Carb Ratio: 2659-3050 (all day): 1 unit/ 3.7g carbs Corection Factor (Sensitivity): 8722-9802 (all day): 18 mg/dL Blood Glucose Target: 0950-7057 (all day): 120 mg/dL - goal range [...] TABS Take 1 tablet by mouth daily. nitroFURantoin macrocrystal-monoh ydrate (MACROBID) 100 MG capsule Take 1 capsule (100 mg) by mouth 2 times daily. 14 capsule 11/07/2024 nitroGLYcerin (NITROSTAT) 0.4 MG sublingual tabletIndications: Acute [...] tablet Take 1 tablet by mouth daily. ondansetron (ZOFRAN ODT) 4 MG ODT tab Take 1 tablet (4 mg) by mouth every 8 hours as needed for nausea or vomiting. 10 tablet 11/07/2024 documented as of this encounter ED Notes * Carmela Chase RN - 11/07/2024 12:18 AM CDT Pt given crackers and water * Ctaherine Szymanski MD - 11/06/2024 10:16 PM CDT Emergency Department Note History of Present Illness Chief Complaint Abdominal Pain and Nausea SHELLIE Live is a 84 year old female with a history of hypertension, hyperlipidemia, hypervolemia,T2DM, vitamin D and B12 deficiency, stage 4 CKD, acute respiratory failure with hypoxia, acute congestive heart failure, breast cancer, CAD, and GERD who presents to the ED for evaluation of abdominal pain and nausea. The patient reports experiencing abdominal pain for the last three days describedas feeling like a urinary tract infection, prompting today's visit. She states that she has additionally been experiencing intermittent shortness of breath with the mentioning three previous hospital visits for respiratory symptoms with no diagnosis. Patient endorses dysuria, chronic shortness of breath, RLQ back pain, nausea, chills, and feels clammy. She also endorses forgetting to take her regular medications today. endorses the patient taking aspirin daily with the presence of cardiac stents. Patient denies any vomiting, fever, or hematuria. Independent Historian as detailed above. Review of External Notes I reviewed the patients urine culture from a urology visit on 08/24/24 with ESBL culture positive UA without Microscopic [[id number]] Order: [id number] Collected 08/24/2024 1:44 PM Component Ref Range & Units (hover) 2 mo ago Color Urine Yellow Appearance Urine Slightly Cloudy Abnormal Glucose Urine Negative Bilirubin Urine Negative Ketones Urine Negative Specific Anson Urine 1.025 Blood Urine Trace Abnormal pH Urine 5.5 Protein Albumin Urine >=300 Abnormal Urobilinogen Urine 0.2 Nitrite Urine Negative Leukocyte Esterase Urine Small Abnormal Specimen Collected: 08/24/24 1:44 PM Last Resulted: 08/24/24 1:53 PM Past Medical History Medical History and Problem List Cholangiectasis Acute congestive heart failure Acute kidney injury Acute respiratory failure with hypoxia Angioedema CAD Stage 4 CKD Type 2 diabetes GERD Hypertension Hyperlipidemia Hypervolemia Breast cancer Anemia Irritable bowel syndrome Lactic acidosis Lumbago Depression Nonrheumatic mitral valve stenosis Diabetic retinopathy Sepsis Recurrent UTI Vitamin B12 deficiency Vitamin D deficiency Medications amLODIPine (NORVASC) 10 MG tablet aspirin 81 MG EC tablet atorvastatin (LIPITOR) 20 MG tablet Ssqcesh-Rkithaauk-Hovdhaa D (CALCIUM 1200+D3 PO) citalopram (CELEXA) 20 MG tablet Cranberry 250 MG CAPS dicyclomine (BENTYL) 20 MG tablet estradiol (ESTRACE) 0.1 MG/GM vaginal cream furosemide (LASIX) 40 MG tablet gabapentin (NEURONTIN) 300 MG capsule Glucagon (BAQSIMI) 3 MG/DOSE nasal powder hydrocortisone, Perianal, (HYDROCORTISONE) 2.5 % cream Insulin Disposable Pump (OMNIPOD DASH 5 PACK PODS) MISC insulin lispro (HUMALOG VIAL) 100 UNIT/ML vial insulin lispro (HUMALOG VIAL) 100 UNIT/ML vial INSULIN PUMP - OUTPATIENT lactobacillus rhamnosus, GG, (CULTURELL) capsule latanoprost (XALATAN) 0.005 % ophthalmic solution LORazepam (ATIVAN) 0.5 MG tablet MULTIVITAMINS OR TABS nitroGLYcerin (NITROSTAT) 0.4 MG sublingual tablet omeprazole (PRILOSEC) [address] capsule timolol maleate (TIMOPTIC) 0.5 % ophthalmic solution traZODone (DESYREL) 50 MG tablet vitamin D3 (CHOLECALCIFEROL) 50 mcg (2000 units) tablet Surgical History LAD stent Right hip arthroplasty Breast cancer surgery Carpal tunnel release Bilateral cataract surgery Hysterectomy Cholecystectomy Physical Exam Patient Vitals for the past 24 hrs: BP Temp Pulse Resp SpO2 Height Weight 11/06/242043 (!) 149/107 -- 89 16 98 % -- -- 11/06/242022 (!) 161/144 98 ??F (36.7 ??C) 88 18 97 % 1.626 m (5' 4) 75 kg (165 lb 5.5 oz) Physical Exam Constitutional: Appearance: She is well-developed. HENT: Right Ear: External ear normal. Left Ear: External ear normal. Mouth/Throat: Mouth: Mucous membranes are moist. Pharynx: Oropharynx is clear. No oropharyngeal exudate or posterior oropharyngeal erythema. Eyes: General: No scleral icterus. Conjunctiva/sclera: Conjunctivae normal. Pupils: Pupils are equal, round, and reactive to light. Cardiovascular: Rate and Rhythm: Normal rate and regular rhythm. Heart sounds: Normal heart sounds. No murmur heard. No friction rub. No gallop. Pulmonary: Effort: Pulmonary effort is normal. No respiratory distress. Breath sounds: Normal breath sounds. No stridor. No wheezing, rhonchi or rales. Abdominal: General: Bowel sounds are normal. There is no distension. Palpations: Abdomen is soft. There is no mass. Tenderness: There is abdominal tenderness. There is no right CVA tenderness or left CVA tenderness. Comments: Suprapubic TTP, no CVAT Musculoskeletal: Right lower leg: No edema. Left lower leg: No edema. Skin: General: Skin is warm and dry. Capillary Refill: Capillary refill takes less than 2 seconds. Findings: No rash. Neurological: Mental Status: She is alert. Diagnostics Lab Results Labs Ordered and Resulted from Time of ED Arrival to Time of ED Departure ROUTINE UA WITH MICROSCOPIC REFLEX TO CULTURE - Abnormal Result Value Color Urine Light Yellow Appearance Urine Slightly Cloudy (*) Glucose Urine 30 (*) Bilirubin Urine Negative Ketones Urine Negative Specific [place]son Urine 1.017 Blood Urine Small (*) pH Urine 6.0 Protein Albumin Urine 100 (*) Urobilinogen Urine Normal Nitrite Urine Negative Leukocyte Esterase Urine Moderate (*) Bacteria Urine Many (*) Mucus Urine Present (*) RBC Urine 2 WBC Urine 72 (*) Squamous Epithelials Urine 19 (*) Hyaline Casts Urine 1 COMPREHENSIVE METABOLIC PANEL - Abnormal Sodium 141 Potassium 4.3 Carbon Dioxide (CO2) 24 Anion Gap 13 Urea Nitrogen 23.7 (*) Creatinine 1.54 (*) GFR Estimate 33 (*) Calcium 9.3 Chloride 104 Glucose 173 (*) Alkaline Phosphatase 73 AST 26 ALT 19 Protein Total 7.9 Albumin 4.1 Bilirubin Total 0.3 CBC WITH PLATELETS AND DIFFERENTIAL - Abnormal WBC Count 11.6 (*) RBC Count 4.37 Hemoglobin 12.6 Hematocrit 38.6 MCV 88 MCH 28.8 MCHC 32.6 RDW 14.4 Platelet Count 341 % Neutrophils 59 % Lymphocytes 29 % Monocytes 9 % Eosinophils 2 % Basophils 1 % Immature Granulocytes 0 NRBCs per 100 WBC 0 Absolute Neutrophils 6.8 Absolute Lymphocytes 3.4 Absolute Monocytes 1.1 Absolute Eosinophils 0.3 Absolute Basophils 0.1 Absolute Immature Granulocytes 0.1 Absolute NRBCs 0.0 LACTIC ACID WHOLE BLOOD WITH 1X REPEAT IN 2 HR WHEN >2 - Normal Lactic Acid, Initial 1.[address] Abdomen Pelvis w/o Contrast Final Result IMPRESSION: 1. Tiny nonobstructing stones versus vascular calcifications of the kidneys. No ureteral stone or hydronephrosis. 2. Urinary bladder may have a mildly thickened wall although is decompressed. Clinical correlation for cystitis suggested. 3. Advanced coronary artery calcification. 4. Colonic diverticulosis. Independent Interpretation None ED Course Medications Administered Medications ondansetron (ZOFRAN) injection 4 mg (4 mg Intravenous $Given 11/06/242236) sodium chloride 0.9% BOLUS 1,000 mL (0 mLs Intravenous Stopped 11/07/24 0003) meropenem (MERREM) 1 g vial to attach to NS 100 mL bag (0 g Intravenous Stopped 11/07/242) Procedures Procedures Discussion of Management None ED Course ED Course as of 11/07/246 Mon Nov 06, 2024 1006 I obtained history and examined the patient as noted above Tue Nov 07, 2024 0016 I rechecked the patient and explained findings. We discussed plans for discharge and the patient is agreeable with this plan. Additional Documentation None Medical Decision Making / Diagnosis [facility] Diagnoses: None MIPS None MDM Nova Live is a 84 year old female with a history of ESBL urine who presents with UTI symptoms. Patient was afebrile on exam. Lactic acid is not elevated. Her white count was slightly elevated. CTscan did not show any other acute finding other than cystitis. After fluids and medications, she feels much improved. She was able to pass p.o. challenge. Based on her prior culture, she has been treated with Macrobid in the past. We gave her dose of Merrem. After discussing with her admission versus outpatient treatment, patient feels that she wants to do outpatient treatment given how well she is feeling. We will send her home with prescription of Zofran and Macrobid. She is advised that if sy mptoms worsen, she needs to come back right away so that she can be admitted for IV antibiotics. Nosigns of sepsis currently. Patient is comfortable with the plan. We will have her follow-up with her doctor next 2 to 3 days as well. Patient comfortable with plan and discharged in improved condition. Disposition The patient was discharged. Diagnosis ICD-10-CM 1. UTI (urinary tract infection) with pyuria N39.0 Discharge Medications Discharge Medication List as of 11/07/2024 12:26 AM START taking these medications Details nitroFURantoin macrocrystal-monohydrate (MACROBID) 100 MG capsule Take 1 capsule (100 mg) by mouth 2 times daily., Disp-14 capsule, R-0, E-Prescribe ondansetron (ZOFRAN ODT) 4 MG ODT tab Take 1 tablet (4 mg) by mouth every 8 hours as needed for nausea or vomiting., Disp-10 tablet, R-0, E-Prescribe Scribe Disclosure: Sai Quiroga, am serving as a scribe at 12:17 AM on 11/07/2024 to document services personallyperformed by Catherine Szymanski MD based on my observations and the provider's statements to me. Catherine Szymanski MD 11/07/24 0232 * Keyanna Valle RN - 11/06/2024 8:21 PM CDT Pt having NV, burning with urination, and lower abd pain x3 days. Pt gets frequent UTI and states this is normally how it feels. documented in this encounter Plan of Treatment Upcoming Encounters Date Type Department Care Team (Late st Contact Info) Description 11/16/2024 1:00 PM CDT Allied Health/Nurse Visit [facility] [address] [phone] Lucero Britt PA-C [address] [place], [place] [phone] 11/16/2024 2:45 PM CDT Office Visit [facility] [address] [phone] Vivien Blanchard MD [address] [facility] [address] [place], [place] [phone] 11/20/2024 3:30 PM CDT Office Visit [address] [phone] Mary [place] [id number] [place] [address] 11/22/2024 9:15 AM CDT Office Visit [facility] [address] [facility] [address] [place] [phone] Federico Linda MD [address] [facility] [address] [place] [address] 11/30/2024 10:30 AM CDT Lab [facility] [address] [place] [address] 12/06/2024 10:10 AM CDT Office Visit [facility] [address] [facility] [address] [place] [phone] Virgie Lobato PA-C [address] [place] [address] 12/28/2024 11:00 AM CDT Office Visit [facility] [address] [facility] [address] [place] [phone] Barry Ybarra MD [address] [address] 01/26/2025 11:30 AM CDT Office Visit [facility] [address] [place] [address] [place] [address] [place] [address] documented as of this encounter Goals Goal Patient Goal Type Associated Problems Recent Progress Patient-Stated? Author Problem Solving General On track( 019 9:24 AM GREENHOUSE OR NURSERY TRANSPLANTER) Yes Sheryl Stringer RD Note: My Goal: I will reduce risk of low blood sugars over-night What I need to meet my goal: follow instructions for taking Novolog before meals only I plan to meet my goal by this date: 1 week documented as of this encounter Procedures Procedure Name Priority Date/Time Associated Diagnosis Comments CT ABDOMEN PELVIS W/O CONTRAST STAT 11/06/2024 11:00 PM CDT EXTRA TUBE STAT 11/06/2024 10:29 PM CDT EXTRA BLUE TOP TUBE STAT 11/06/2024 1 0:29 PM CDT LACTIC ACID WHOLE BLOOD WITH 1X REPEAT IN 2 HR WHEN >2 STAT 11/06/2024 10:29 PM CDT CBC WITH PLATELETS AND DIFFERENTIAL STAT 11/06/2024 10:29 PM CDT CBC WITH PLATELETS & DIFFERENTIAL STAT 11/06/2024 10:29 PM CDT COMPREHENSIVE METABOLIC PANEL STAT 11/06/2024 10:29 PM CDT ROUTINE UA WITH MICROSCOPIC REFLEX TO CULTURE STAT 11/06/2024 8:38 PM CDT URINE CULTURE STAT 11/06/2024 8:38 PM CDT documented in this encounter Results * CT Abdomen Pelvis w/o Contrast (11/06/2024 11:00 PM CDT) Anatomical Region Laterality Modality Abdomen/Pelvis, SUBRAD CT BRANT DY, UMP CT ABDOMEN PELVIS, RAD CT Computed Tomography 11/06/2024 11:0 0 PM CDT Impressions 11/07/2024 12:00 AM CDT IMPRESSION: 1. Tiny nonobstructing stones versus vascular calcifications of the kidneys. No ureteral stone or hydronephrosis. 2. Urinary bladder may have a mildly thickened wall although is decompressed. Clinical correlation for cystitis suggested. 3. Advanced coronary artery calcification. 4. Colonic diverticulosis. Narrative 11/07/2024 12:00 AM CDT EXAM: CT ABDOMEN PELVIS W/O CONTRAST LOCATION: [facility] DATE: 11/06/2024 INDICATION: flank pain, UTI COMPARISON: CT chest abdomen and pelvis 2024. TECHNIQUE: CT scan of the abdomen and pelvis was performed without IV contrast. Multiplanar reformats were obtained. Dose reduction techniques were used. CONTRAST: None. FINDINGS: LOWER CHEST: Advanced coronary artery calcification. Dense calcification of the mitral annulus. Mild chronic subpleural fibrosis of the lung bases. HEPATOBILIARY: Post cholecystectomy. Predominantly extra hepatic biliary dilatation compatible with reservoir effect after cholecystectomy. PANCREAS: Moderately atrophic. SPLEEN: Normal. ADRENAL GLANDS: Normal. KIDNEYS/BLADDER: Tiny nonobstructing stones versus vascular calcifications of the kidneys. Mild cortical scarring of the right kidney. No ureteral stone or hydronephrosis. Tiny benign cyst of the left kidney not warranting follow-up. Urinary bladder may have a mildly thickened wall although is decompressed. BOWEL: Mild colonic diverticulosis. No obstruction or inflammation. Normal appendix. No free air, free fluid or abscess. LYMPH NODES: Normal. VASCULATURE: Moderate aortoiliac atherosclerosis. No aneurysm. PELVIC ORGANS: Post hysterectomy. Stable 2.7 cm benign lamellated calcification in the left pelvis. MUSCULOSKELETAL: Right hip arthroplasty. Degenerative changes of the spine. Procedure Note Carlos Espinosa MD - 11/07/2024 EXAM: CT ABDOMEN PELVIS W/O CONTRAST LOCATION: [facility] DATE: 11/06/2024 INDICATION: flank pain, UTI COMPARISON: CT chest abdomen and pelvis 2024. TECHNIQUE: CT scan of the abdomen and pelvis was performed without IVcontrast. Multiplanar reformats were obtained. Dose reduction techniqueswere used. CONTRAST: None. FINDINGS: LOWER CHEST: Advanced coronary artery calcification. Dense calcificationof the mitral annulus. Mild chronic subpleural fibrosis of the lungbases. HEPATOBILIARY: Post cholecystectomy. Predominantly extra hepatic biliarydilatation compatible with reservoir effect after cholecystectomy. PANCREAS: Moderately atrophic. SPLEEN: Normal. ADRENAL GLANDS: Normal. KIDNEYS/BLADDER: Tiny nonobstructing stones versus vascular calcificationsof the kidneys. Mild cortical scarring of the right kidney. No ureteralstone or hydronephrosis. Tiny benign cyst of the left kidney notwarranting follow-up. Urinary bladder may have a mildly thickened wall although is decompressed. BOWEL: Mild colonic diverticulosis. No obstruction or inflammation. Normalappendix. No free air, free fluid or abscess. LYMPH NODES: Normal. VASCULATURE: Moderate aortoiliac atherosclerosis. No aneurysm. PELVIC ORGANS: Post hysterectomy. Stable 2.7 cm benign lamellatedcalcification in the left pelvis. MUSCULOSKELETAL: Right hip arthroplasty. Degenerative changes of thespine. IMPRESSION: 1. Tiny nonobstructing stones versus vascular calcifications of thekidneys. No ureteral stone or hydronephrosis. 2. Urinary bladder may have a mildly thickened wall although isdecompressed. Clinical correlation for cystitis suggested. 3. Advanced coronary artery calcification. 4. Colonic diverticulosis. Catherine Szymanski MD IMG CT ORDERABLES Final Result * Extra Blue Top Tube (11/06/2024 10:29 PM CDT) Hold Specimen JI 11/06/2024 11:46 PM CDT [facility] Blood BLOOD SPECIMEN / Unknown Venipuncture / Unknown 11/06/2024 10:29 PM CDT 11/06/2024 10:37 PM CDT Catherine Szymanski MD LAB - BLOOD ORDERABLES Final Res ult [facility] [address] [facility] (1st floor, no room number) [place] [address] * (ABNORMAL) CBC with platelets and differential (11/06/2024 10:29 PM CDT) WBC Count 11.6(H) 4.0 - 11.0 10e3/uL 11/06/2024 10:39 PM CDT [facility] RBC Count 4.37 3.80 - 5.20 10e6/uL 11/06/2024 10:39 PM CDT [facility] Hemoglobin 12.6 11.7 - 15.7 g/dL 11/06/2024 10:39 PM CDT [facility] Hematocrit 38.6 35.0 - 47.0 % 11/06/2024 10:39 PM CDT [facility] MCV 88 78 - 100 fL 11/06/2024 10:39 PM CDT [facility] MCH 28.8 26.5 - 33.0 pg 11/06/2024 10:39 PM CDT [facility] MCHC 32.6 31.5 - 36.5 g/dL 11/06/2024 10:39 PM CDT [facility] RDW 14.4 10.0 - 15.0 % 11/06/2024 10:39 PM CDT [facility] Platelet Count 341 150 - 450 10e3/uL 11/06/2024 10:39 PM CDT [facility] % Neutrophils 59 % 11/06/2024 10:39 PM CDT [facility] % Lymphocytes 29 % 11/06/2024 10:39 PM CDT [facility] % Monocytes 9 % 11/06/2024 10:39 PM CDT [facility] % Eosinophils 2 % 11/06/2024 10:39 PM CDT [facility] % Basophils 1 % 11/06/2024 10:39 PM CDT [facility] % Immature Granulocytes 0 % 11/06/2024 10:39 PM CDT [facility] NRBCs per 100 WBC 0 <1 /100 025 10:39 PM CDT [facility] Absolute Neutrophils 6.8 1.6 - 8.3 10e3/uL 11/06/2024 10:39 PM CDT [facility] Absolute Lymphocytes 3.4 0.8 - 5.3 10e3/uL 11/06/2024 10:39 PM CDT [facility] Absolute Monocytes 1.1 0.0 - 1.3 10e3/uL 11/06/2024 10:39 PM CDT [facility] Absolute Eosinophils 0.3 0.0 - 0.7 10e3/uL 11/06/2024 10:39 PM CDT [facility] Absolute Basophils 0.1 0.0 - 0.2 10e3/uL 11/06/2024 10:39 PM CDT [facility] Absolute Immature Granulocytes 0.1 <=0.4 10e3/uL 11/06/2024 10:39 PM CDT [facility] Absolute NRBCs 0.0 10e3/uL 11/06/2024 10:39 PM CDT [facility] Blood BLOOD SPECIMEN / Unknown Venipuncture / Unknown 11/06/2024 10:29 PM CDT 11/06/2024 10:37 PM CDT us Catherine Szymanski MD LAB - BLOOD ORDERABLES Final Res ult [facility] [address] [facility] floor, no room number) [place] [address], [facility] * Lactic acid whole blood with 1x repeat in 2 hr when >2 (11/06/2024 10:29 PM CDT) Lactic Acid, Initial 1.6 0.7 - 2.0 mmol/L 11/06/2024 10:38 PM CDT LABORATORY Blood BLOOD SPECIMEN / Unknown Venipuncture / Unknown 11/06/2024 10:29 PM CDT 11/06/2024 10:37 PM CDT us Catherine Szymanski MD LAB - BLOOD ORDERABLES Final Res ult LABORATORY [facility] [address] Lab (1st floor, no room number) [place] [address], [facility] * (ABNORMAL) Comprehensive metabolic panel (11/06/2024 10:29 PM CDT) Sodium 141 135 - 145 mmol/L 11/06/2024 10:59 PM CDT LABORATORY Potassium 4.3 3.4 - 5.3 mmol/L 11/06/2024 10:59 PM CDT LABORATORY Carbon Dioxide (CO2) 24 22 - 29 mmol/L 11/06/2024 10:59 PM CDT LABORATORY Anion Gap 13 7 - 15 mmol/L 11/06/2024 10:59 PM CDT LABORATORY Urea Nitrogen 23.7(H) 8.0 - 23.0 mg/dL 11/06/2024 10:59 PM CDT LABORATORY Creatinine 1.54(H) 0.51 - 0.95 mg/dL 11/06/2024 10:59 PM CDT LABORATORY GFR Estimate 33(L) >60 mL/min/1.7 3m2 11/06/2024 10:59 PM CDT [facility] Comment:eGFR calculated usin 2020 CKD-EPI equation. Calcium 9.3 8.8 - 10.4 mg/dL 11/06/2024 10:59 PM CDT LABORATORY Chloride 104 98 - 107 mmol/L 11/06/2024 10:59 PM CDT LABORATORY Glucose 173(H) 70 - 99 mg/dL 11/06/2024 10:59 PM CDT LABORATORY Alkaline Phosphatase 73 40 - 150 U/L 11/06/2024 10:59 PM CDT LABORATORY AST 26 0 - 45 U/L 11/06/2024 10:59 PM CDT RH LABORATORY ALT 19 0 - 50 U/L 11/06/2024 10:59 PM CDT RH LABORATORY Protein Total 7.9 6.4 - 8.3 g/dL 11/06/2024 10:59 PM CDT RH LABORATORY Albumin 4.1 3.5 - 5.2 g/dL 11/06/2024 10:59 PM CDT RH LABORATORY Bilirubin Total 0.3 <=1.2 mg/dL 11/06/2024 10:59 PM CDT RH LABORATORY Blood BLOOD SPECIMEN / Unknown Venipuncture / Unknown 11/06/2024 10:29 PM CDT 11/06/2024 10:37 PM CDT us Catherine Szymanski MD LAB - BLOOD ORDERABLES Final Res ult LABORATORY [facility] [address] Lab (1st floor, no room number) [place] [address] * (ABNORMAL) Urine Culture (11/06/2024 8:38 PM CDT) Culture 50,000-100,000 CFU/mL Klebsiella oxytoca(A) 11/08/2024 12:04 AM CDT [facility]U IDD LABORATORY Urine URINE SPECIMEN OBTAINED BY CLEAN CATCH PROCEDURE / Unknown Non-blood Collection / Unknown 11/06/2024 8:38 PM CDT 11/06/2024 9:11 PM CDT Narrative Organism Antibiotic Method Susceptibility Klebsiella oxytoca Ampicillin PEACE Resistant Comment:Intrinsicall y Resistant Klebsiella oxytoca Ampicillin/ Sulbactam PEACE 4 ug/mL: Susceptible Klebsiella oxytoca Piperacillin/Tazobactam PEACE <=4 ug/mL: Susceptible Klebsiella oxytoca Cefazolin PEACE 2 ug/mL: Susceptible Klebsiella oxytoca Ceftazidime PEACE <=0.5 ug/mL: Susceptible Klebsiella oxytoca Ceftriaxone PEACE <=0.25 ug/mL: Susceptible Klebsiella oxytoca Cefepime PEACE <=0.12 ug/mL: Susceptible Klebsiella oxytoca Gentamicin PEACE <=1 ug/mL: Susceptible Klebsiella oxytoca Ciprofloxacin PEACE <=0.06 ug/mL: Susceptible Klebsiella oxytoca Levofloxacin PEACE <=0.12 ug/mL: Susceptible Klebsiella oxytoca Nitrofurantoin PEACE 32 ug/mL: Susceptible Klebsiella oxytoca Trimethoprim/Sulfamethoxazole PEACE <=1/19 ug/mL: Susceptible us Catherine Szymanski MD LAB - MICRO GENERAL ORDERABLES F inal Result UU IDD LABORATORY [facility] Inf. Diseases Diag. Lab [address] [facility] [place] [address] * (ABNORMAL) UA with Microscopic reflex to Culture (11/06/2024 8:38 PM CDT) Color Urine Light Yellow Colorless, Straw, Light Yellow, Yellow 11/06/2024 9:11 PM CDT LABORATORY Appearance Urine Slightly Cloudy(A) Clear 11/06/2024 9:11 PM CDT LABORATORY Glucose Urine 30(A) Negative mg/dL 11/06/2024 9:11 PM CDT LABORATORY Bilirubin Urine Negative Negative 9:11 PM CDT LABORATORY Ketones Urine Negative Negative mg/dL 11/06/2024 9:11 PM CDT LABORATORY Specific [place] Urine 1.017 1.003 - 1.035 11/06/2024 9:11 PM CDT LABORATORY Blood Urine Small(A) Negative 11/06/2024 9:11 PM CDT LABORATORY pH Urine 6.0 5.0 - 7.0 11/06/2024 9:11 PM CDT LABORATORY Protein Albumin Urine 100(A) Negative mg/dL 11/06/2024 9:11 PM CDT LABORATORY Urobilinogen Urine Normal Normal mg/dL 11/06/2024 9:11 PM CDT LABORATORY Nitrite Urine Negative Negative 11/06/2024 9:11 PM CDT LABORATORY Leukocyte Esterase Urine Moderate(A) Negative 11/06/2024 9:11 PM CDT LABORATORY Bacteria Urine Many(A) None Seen /HPF 11/06/2024 9:11 PM CDT LABORATORY Mucus Urine Present(A) None Seen /LPF 11/06/2024 9:11 PM CDT LABORATORY RBC Urine 2 <=2 /HPF 11/06/2024 9:11 PM CDT RH LABORATORY WBC Urine 72(H) <=5 /HPF 11/06/2024 9:11 PM CDT RH LABORATORY Squamous Epithelials Urine 19(H) <=1 /HPF 11/06/2024 9:11 PM CDT RH LABORATORY Hyaline Casts Urine 1 <=2 /LPF 11/06/2024 9:11 PM CDT LABORATORY Urine URINE SPECIMEN OBTAINED BY CLEAN CATCH PROCEDURE / Unknown Non-blood Collection / Unknown 11/06/2024 8:38 PM CDT 11/06/2024 8:46 PM CDT Narrative RH LABORATORY - 11/06/2024 9:11 PM CDT Urine Culture ordered based on laboratory criteria us Catherine Szymanski MD LAB - URINE ORDERABLES Final Res ult LABORATORY [facility] [address] [facility] Lab (1st floor, no room number) [place] [address], [facility] documented in this encounter Visit Diagnoses Diagnosis UTI (urinary tract infection) with pyuria Urinary tract infection, site not specified documented in this encounter Administered Medications Inactive Administered Medications - up to 3 most recent administrations Medication Order MAR Action Action Date Dose Rate Site meropenem (MERREM) 1 g vial to attach to NS 100 mL bag STAT, 1 g, Intravenous, ONCE, On Wed11/06/24 at 2310, For 1 dose, Indications: Urinary Tract Infection, ESBLIndications:Urinary Tract Infection,ESBL $New Bag 11/06/2024 11:20 PM CDT 1 g ondansetron (ZOFRAN) injection 4 mg 4 mg, Intravenous, EVERY 30 MIN PRN, nausea, vomiting, Administer over 2-5 Minutes, Starting on Wed11/06/24 at 2200, For 3 doses, May repeat in 30 minutes as needed, up to 3 doses. $Given 11/07/2024 12:29 AM CDT 4 mg $Given 11/06/2024 10:37 PM CDT 4 mg sodium chloride 0.9% BOLUS 1,000 mL Intravenous, 1,000 mL, ONCE, at 1,000 mL/hr, Administer over 1 Hours, On Wed11/06/24 at 2205, For 1 dose $New Bag 11/06/2024 10:37 PM CDT 1,000 mLs 1000 mL/hr documented in this encounter Active and Recently Administered Medications Times are shown in CDT. Scheduled Medication Order 11/05/2024 11/06/2024 11/07/2024 meropenem (MERREM) 1 g vial to attach to NS 100 mL bag (COMPLETED) STAT, 1 g, Intravenous, ONCE, On Wed11/06/24 at 2310, For 1 dose, Indications: Urinary Tract Infection, ESBL 2320 ($New Bag - Provider: Karissa Mclean, JERRY - Comment: Scanner not working.) 0003 (Stopped - Provider: Karissa Mclean, RN) sodium chloride 0.9% BOLUS 1,000 mL (COMPLETED) Intravenous, 1,000 mL, ONCE, at 1,000 mL/hr, Administer over 1 Hours, On Wed11/06/24 at 2205, For 1 dose 223 ($New Bag - Provider: Karissa Mclean RN) 0003 (Stopped - Provider: Karissa Mclean RN) PRN Medication Order 11/05/2024 11/06/2024 11/07/2024 ondansetron (ZOFRAN) injection 4 mg 4 mg, Intravenous, EVERY 30 MIN PRN, nausea, vomiting, Administer over 2-5 Minutes, Starting on Wed11/06/24 at 2200, For 3 doses, May repeat in 30 minutes as needed, up to 3 doses. 2237 ($Given - Provider: Karissa Mclean RN) 0029 ($Given - Provider: Carmela Chase RN) documented in this encounter Additional Health Concerns Infection Onset Date Last Indicated Resolved Time ESBL 07/05/2024 08/24/2024 Assessment Noted Time PHQ-9 Depression Total Score: 1 10/26/19 10:33 AM CDT documented as of this encounter Care Teams Product Development Consultant Relationship Specialty [place] [address] [address] [address] PCP - General Family Medicine 04/11/[address] [facility] [address] [place] [address] [place] [address] Scalloper Dietitian, Registered 11/03/17 Federico Linda MD [address] [facility] [address] [place], [place] [address] Assigned Heart and Vascular Provider 03/29/20 Jc Zavala MD [facility] [address] [place], [place] [phone] Hematology & Oncology 08/07/21 Cristofer Michelle MD [facility] [address] [place] [address] Gastroenterology 07/28/22 Vivien Blanchard MD [address] [place] [address] [address] [place], [place] [phone] Urology 07/28/22 Teetee Velazquez PA-C [address] [place] [address] [phone] Physician Real Estate Recruiter 05/11/23 Teetee Velazquez PA-C [address] [place] [address] 668615 Assigned Surgical Provider 07/01/23 [place] [address] [address], [facility] [address] [place], [place] [phone] Assigned Musculoskeletal Provider 08/20/23 Lanie Foster, RD, LD [address] [place] [place] [id number] Registered Dietitian Nutrition 05/15/24 [place] [address] [place] [address] Assigned PCP 05/29/24 Melonie Caro [facility] [address] [place] [address] Pharmacist Pharmacist 06/05/24 Federico Linda MD [address] [facility] [address] [place], [place] 7745[address] Cardiovascular Disease 06/13/24 Melonie Caro [facility] [address] [place] [address] Assigned MTM Pharmacist 06/29/24 Virgie Lobato, PAAnthonyC [address] [place] [address] 864205 Assigned Nephrology Provider 07/30/24 Barry Ybarra MD [address] [place] [address] Hospitalist Infectious Diseases 08/31/24 Barry Ybarra MD [address] [place] [address] Assigned Infectious Disease Provider 10/27/24 documented as of this encounter
[2024-11-12 16:25] VITALS: BP 99/64; PULSE 92; RESP 22; TEMP 36.6; O2SAT 97; BMI 28.2
--- NOTE | 2024-11-12 16:34 | ED_ITS ---
HPI - Female Genitourinary General Chief complaint: Urogenital Problems, Female Stated complaint: Stomach pain, UTI concerns Time Seen by Provider: 11/12/24 16:29 History of Present Illness HPI Narrative: Patient is 84-year-old woman who was treated over last week from [facility] with nitrofurantoin for urinary tract infection. She is frustrated that she is not getting better. She still has urinary frequency and dysuria. She has had no flank pain no abdominal pain no nausea no vomiting no fevers no chills no night sweats. Patient is otherwise feeling fine. He is frustrated that she has urged on the restroom repeatedly. She has had no change in her bowels. No overt bleeding in her bladder or urine. Related Data Allergies Allergy/AdvReac Type Severity Reaction Status Date / Time lisinopril Allergy Severe Swelling Verified 11/12/24 16:23 of Lip/Tongue/Throat Review of Systems Status of ROS: Reports: 10 or more systems reviewed and unremarkable except as noted in History and below Exam Narrative: Exam Narrative: EXAM GENERAL: Patient appears comfortable and well. EYES: No scleral icterus. LYMPH: No supraclavicular or cervical lymphadenopathy. SKIN: Visible skin seen during exam normal or with benign process only. EXT: No dependent lower extremity pedal edema. HEART: Regular rate and rhythm with no murmurs, rubs, or gallops. LUNGS: Clear to auscultation bilaterally with no crackles or wheezes. ABD: Soft, non tender, non distended. PSYCH: Good eye contact, speech is not pressured. Const: Vital Signs, click to edit/add: Vital Signs - 24 hr 11/12/24 16:25 Temperature 97.9 F Pulse Rate [Pulse Oximeter] 92 Respiratory Rate 22 Blood Pressure [Ri ght Upper Arm] 99/64 Pulse Oximetry 97 Oxygen Delivery Me thod Room Air Course Course ED Course: Patient seen and examined. Repeat UA pending. Vital Signs Vital signs: Initial Vital Signs Temperature 97.9 F 11/12/24 16:25 Temperature Source Temporal Artery Scan 11/12/24 16:25 Pulse Rate 92 11/12/24 16:25 Respiratory Rate 22 11/12/24 16:25 Blood Pressure 99/64 11/12/24 16:25 Blood Pressure Mean 75 11/12/24 16:25 Pulse Oximetry 97 11/12/24 16:25 Oxygen Delivery Method Room Air 11/12/24 16:25 Vital Signs Temperature 97.9 F 11/12/24 16:25 Pulse Rate 92 11/12/24 16:25 Respiratory Rate 22 11/12/24 16:25 Blood Pressure 99/64 11/12/24 16:25 Pulse Oximetry 97 11/12/24 16:25 Oxygen Delivery Method Room Air 11/12/24 16:25 Temperature 97.9 F 11/12/24 16:25 Pulse Rate 92 11/12/24 16:25 Respiratory Rate 22 11/12/24 16:25 Blood Pressure 99/64 11/12/24 16:25 Pulse Oximetry 97 11/12/24 16:25 Oxygen Delivery Method Room Air 11/12/24 16:25 MDM - Female Genitourinary MDM Narrative Medical decision making narrative: Patient presents with urinary frequency and dysuria and still has abnormal UA although she has been treated with oral Macrobid for several days for UTI. She has normal vitals and normal exam. She has findings consistent with persist a UTI on UA. Cultures pending. I do not have access to her previous culture results. This time I did review her regular medications and will treat her with Bactrim Double Strength for an additional 3 days. She can stop her nitrofurantoin. She will follow-up with her primary physician this coming week. Lab Data Labs: Lab Results 11/12/24 Range/Units Unknown Urine Color Yellow (Yellow) Urine Appearance Clear (Clear) Urine pH 5.5 (5.0-8.5) Ur Specific [place] 1.015 (1.000-1.030) Urine Protein 2+ A (Negative) Urine Glucose (UA) Negative (Negative) Urine Ketones Negative (Negative) Urine Blood Negative (Negative) Urine Nitrite Negative (Negative) Urine Bilirubin Negative (Negative) Urine Urobilinogen 0.2 (0.2-1.0) Ur Leukocyte Esterase 1+ A (Negative) Urine RBC 2-5 A (0-2) Urine WBC 2-5 (0-5) Ur Squamous Epith Cells None (None-Few) Urine Bacteria Few A (None) Discharge Plan Discharge Clinical Impression: Urinary tract infection Patient Disposition: Home, Self-Care Condition: Stable Instructions: Urinary Tract Infection in Women (ED) Additional Instructions: Stop Macrobid Start Bactrim Rest Fluids Follow-up with your doctor this coming week. Activity Level: No Restrictions Discharge Diet: Regular Follow Up/Referrals: Provider,Not a Local [Primary Care Provider, Family Practice] Stand Alone Forms: [facility] Info Instructions
[2024-11-12 16:48] LABS: Appearance Urine Clear (Clear); Bilirubin Urine Negative (Negative); Blood Urine Negative (Negative); Color Urine Yellow (Yellow); Glucose Urine Negative (Negative); Ketones Urine Negative (Negative); Leukocyte Esterase Urine 1+ (Negative); Nitrite Urine Negative (Negative); Protein Urine 2+ (Negative); Specific Gravity Urine 1.015 (1.000-1.030); Urobilinogen Urine 0.2 (0.2-1.0); pH Urine 5.5 (5.0-8.5)
[2024-11-12 17:03] LABS: Bacteria Urine Few
--- OUTSIDE RECORDS SUMMARY | 2024-11-12 17:21 | XMS_ITS | Encounter Summary ---
Author Organization [facility] Address [address] [place] [address] Care Team Providers Care Sewer Connector Name Role Phone Sheryl Stringer ELI Unavailable [phone] Flynn Ruiz MD Primary Care Provider Trina Carbajal PA-C Unavailable [phone] Federico Linda MD Unavailable Trina Carbajal PA-C Primary Care Provider [phone] Connie Blackwell MD Unavailable [phone] Ruth Ann Munoz MD Unavailable + Carlos Livingston MD Unavailable Jelena ericailable Trina Carbajal PA-C Unavailable [phone] Carlos Livingston MD Unavailable Jelena ericailable Carlos Livingston MD Unavailable Jelena Trina Marcum PA-C Unavailable [phone] Mari Funes RN Unavailable Unavailable Jc Zavala MD Unavailable [phone] Barbi Manzo RN Unavailable Unavailable Erasto Root MD Unavailable Cristofer Michelle MD Unavailable [phone] Vivien Blanchard MD Unavailable [phone] Sapna Hernandez MD Unavailable Vivien Blanchard MD Unavailable [phone] Virgie Lobato-C Unavailable [phone] Teetee Velazquez PA-C Unavailable [phone] Teetee Velazquez PA-C Unavailable [phone] Cora Shah RN Unavailable Brad Mayer DO Unavailable [phone] Mary Garcia MD Primary Care Provider Cristal Cooper RN Unavailable Shannon Rowland PA-C Unavailable [phone], LD Unavailabl e Mary Garcia MD Unavailable Melonie Caro [facility] Unavailable [phone] Federico Linda MD Unavailable [phone] Melonie Caro [facility] Unavailable Virgie viramontes-C Unavailable [phone] Barry Ybarra MD Unavailable [phone] Barry Ybarra MD Unavailable [phone] Encounter Details Date Type Department Care Team (Late st Contact Info) Description 12/06/2019 [facility] [address] [address] Sheryl Stringer, ELI [facility] [address] [place] [address] [address] [place], [place] [phone] Social History Tobacco Use Types Packs/Day Years Used Date Smoking Tobacco: Never Smokeless Tobacco: Never Alcohol Use Standard Drinks/Week Comments No 0 (1 standard drink = 0.6 oz pur e alcohol) PHQ-2 Answer Date Recorded PHQ-2 Score 0 07/27/2019 Comments No Sex and Gender Information Value Date Recorded Sex Assigned at Female 07/18/2020 1:16 PM RADIOGRAPHER MAMMOGRAPHER Legal Sex Female 3:23 AM RADIOGRAPHER MAMMOGRAPHER Gender Identity Female 07/18/2020 1:16 PM RADIOGRAPHER MAMMOGRAPHER Sexual Orientation Straight 07/18/2020 1: 16 PM RADIOGRAPHER MAMMOGRAPHER 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 Not on file Not on file Not on file documented as of this encounter Plan of Treatment Upcoming Encounters Date Type Department Care Team (Late st Contact Info) Description 11/16/2024 1:00 PM CDT Allied Health/Nurse Visit [facility] Urology [address] [phone] Lucero Britt PA-C 500 [place], [place] [address] 11/16/2024 2:45 PM CDT Office Visit [facility] Urology [address] [phone] Vivien Blanchard MD 420 [facility] 394 [place], [place] [address] 11/20/2024 3:30 PM CDT Office Visit [facility] [phone] [place] [phone] [place] [id number] [place] [address] 11/22/2024 9:15 AM CDT Office Visit [facility] [address] [facility] 140 [place] [phone] Federico Linda MD [address] [facility] [address] [place] [address] 11/30/2024 10:[address] [facility] [address] [place] [phone] 12/06/2024 10:10 AM CDT Office Visit [facility] [address] [facility] 200 [place] [phone] Virgie Lobato, PA-C [address] [place] [address] 12/28/2024 11:00 AM CDT Office Visit [facility] [address] [facility] 200 [place] [phone] Barry Ybarra MD [address] [facility] 200 [place] [address] 01/26/2025 11:30 AM CDT Office Visit [facility] [address] [place] [phone] [place] [address] [place] [address] documented as of this encounter Goals Goal Patient Goal Type Associated Problems Recent Progress Patient-Stated? Author Problem Solving General On track( 019 9:24 AM RADIOGRAPHER MAMMOGRAPHER) Yes Sheryl Stringer RD Note: My Goal: [...] Infection Onset Date Last Indicated Resolved Time Rule Out COVID-19 03/08/2021 03/08/2021 03/09/2021 1:42 AM CDT Rule Out C-difficile 03/10/2021 03/10/2021 021 5:50 PM CDT Rule Out COVID-19 2021 2021 04/25/2021 12:41 PM RADIOGRAPHER MAMMOGRAPHER Rule Out COVID-19 06/14/2022 06/14/2022 06/14/2022 11:30 AM RADIOGRAPHER MAMMOGRAPHER Rule Out COVID-19 07/03/2022 07/03/2022 07/04/2022 12:27 AM RADIOGRAPHER MAMMOGRAPHER Rule Out COVID-19 04/01/2024 04/01/2024 04/01/2024 10:07 PM CDT ESBL 07/05/2024 08/24/2024 Rule Out COVID-19 07/16/2024 07/16/2024 07/16/2024 11:04 PM RADIOGRAPHER MAMMOGRAPHER Rule Out COVID-19 09/01/2024 09/01/2024 09/01/2024 2:05 AM CDT Rule Out COVID-19 09/21/2024 09/21/2024 09/21/2024 3:25 PM CDT Assessment Noted Time PHQ-9 Depression Total Score: 6 07/28/19 7:04 AM RADIOGRAPHER MAMMOGRAPHER documented as of this encounter Care Teams Sewer Connector Relationship Specialty Start Date End Date Flynn Ruiz MD [address] [place] [phone] PCP - General Family Practice 04/14/19 05/18/20 Trina Carbajal PA-C [address] [place] [address] PCP - General Family Medicine 05/19/20 04/10/24 [place] [address] [address] [address] PCP - General Family Medicine 04/11/[address] [facility] - [address] [place] [address] Log Buyer Dietitian, Registered 11/03/17 Trina Carbajal PA-C [address] [place] [address] Assigned PCP 08/13/19 07/27/20 Federico Linda MD [address] [place], [place] [phone] Assigned Heart and Vascular Provider 03/29/20 Connie Blackwell MD [address] [place], [place] [address] Assigned Endocrinology Provider 07/14/20 12/19/20 Ruth Ann Munoz MD [place] [address] [facility] [address] [place] [address] Assigned PCP 07/28/20 08/25/20 Carlos Livingston MD NO INFO AVAILABLE Assigned PCP 08/26/20 08/31/20 Trina Carbajal PA-C [address] [place] [address] Assigned PCP 09/01/20 12/07/20 Carlos Livingston MD NO INFO AVAILABLE Assigned Endocrinology Provider 12/20/20 12/18/22 Carlos Livingston MD NO INFO AVAILABLE Assigned PCP 12/08/20 12/19/20 Trina Carbajal PA-C [address] [place], [place] [address] Assigned PCP 12/20/20 04/28/24 Mari Funes, RN Personal Advocate & Liaison (PAL) Nurse 01/24/21 06/12/21 Jc Zavala MD [facility] [address] [place] [address] Hematology & Oncology 08/07/21 Barbi Manzo, JERRY Personal Advocate & Liaison (PAL) Family Medicine 12/24/21 07/08/23 [place] [address] [place] [address] Assigned Musculoskeletal Provider 04/04/22 08/19/23 Cristofer Michelle MD [address] [place] [address] Gastroenterology 07/28/22 Vivien Blanchard MD [address] [place] [address] 969385 Urology 07/28/22 Sapna Hernandez MD [address] [place] [address] Assigned Nephrology Provider 07/11/22 09/25/22 Vivien Blanchard MD [address] [place] [address] Assigned Surgical Provider 07/25/22 06/30/23 Virgie Lobato PA-C [address] [place] [address] Assigned Nephrology Provider 09/26/22 03/28/24 Teetee Velazquez PA-C [address] [place] [address] Physician Electrician Third 05/11/23 Teetee Velazquez PA-C [address] [place] [address] [phone] Assigned Surgical Provider 07/01/23 Cora Shah RN Personal Advocate & Liaison (PAL) Nurse 07/09/23 09/29/23 [place] [address] [address] [address] Assigned Musculoskeletal Provider 08/20/23 Cristal Cooper, JERRY Lead Licensed Chemical Spray Technician Primary Care - CC 04/27/2404/08 Shannon Rowland PA-C [address] [place] [phone] Assigned PCP 04/29/24 05/28/24 Lanie Foster, RD, LD [address] [place] [address] Registered Dietitian Nutrition 05/15/24 [place] [address] [place] [address] Assigned PCP 05/29/24 Melonie Caro RPH [address] [place] [address] Pharmacist Pharmacist 06/05/24 Federico Linda MD [address] [facility] [address] [place], [place] [address] Cardiovascular Disease 06/13/24 Melonie Caro RPH [address] [place] [address] Assigned MTM Pharmacist 06/29/24 Virgie Lobato, PA-C [address] [place] [address] Assigned Nephrology Provider 07/30/24 Barry Ybarra MD [address] [place] [address] Hospitalist Infectious Diseases 08/31/24 Barry Ybarra MD [address] [place] [address] Assigned Infectious Disease Provider 10/27/24 documented as of this encounter
--- OUTSIDE RECORDS SUMMARY | 2024-11-12 17:22 | XMS_ITS | Encounter Summary ---
Author Organization [place] Address [address] [place] [address] Care Team Providers Care [employer] Name Role Phone Sheryl Stringer ELI Unavailable [phone] Flynn Ruiz MD Primary Care Provider Trina Carbajal PA-C Unavailable [phone] Federico Linda MD Unavailable Trina Carbajal PA-C Primary Care Provider [phone] Connie Blackwell MD Unavailable [phone] Ruth Ann Munoz MD Unavailable + Carlos Livingston MD Unavailable Jelena ericailable Trina Carbajal PA-C Unavailable [phone] Carols Livingston MD Unavailable Jelena ericailable Carlos Livingston MD Unavailable Jelena Trina Marcum PA-C Unavailable [phone] Mari Funes RN Unavailable Unavailable Jc Zavala MD Unavailable [phone] Barbi Manzo RN Unavailable Unavailable Erasto Root MD Unavailable Cristofer Michelle MD Unavailable [phone] Vivien Blanchard MD Unavailable [phone] Sapna Hernandez MD Unavailable Vivien Blanchard MD Unavailable [phone] Virgie Lobato-C Unavailable [phone] Teetee Velazquez PA-C Unavailable [phone] Teetee Velazquez PA-C Unavailable [phone] Cora Shah RN Unavailable Brad Mayer DO Unavailable [phone] Mary Garcia MD Primary Care Provider Cristal Cooper RN Unavailable Shannon Rowland PA-C Unavailable [phone], LD Unavailabl e Mary Garcia MD Unavailable Melonie Caro [facility] Unavailable [phone] Federico Linda MD Unavailable [phone] Melonie Caro [facility] Unavailable Virgie viramontes-C Unavailable [phone] Barry Ybarra MD Unavailable [phone] Barry Ybarra MD Unavailable [phone] Encounter Details Date Type Department Care Team (Late st Contact Info) Description 10/19/2019 [facility] [address] [address] Sheryl Stringer, ELI GUTHRIE [facility] [address] [place] [address] [place], [place] [id number] Social History Tobacco Use Types Packs/Day Years Used Date Smoking Tobacco: Never Smokeless Tobacco: Never Alcohol Use Standard Drinks/Week Comments No 0 (1 standard drink = 0.6 oz pur e alcohol) PHQ-2 Answer Date Recorded PHQ-2 Score 0 07/27/2019 Comments No Sex and Gender Information Value Date Recorded Sex Assigned at Female 07/18/2020 1:16 PM [employer] Legal Sex Female 3:23 AM [employer] Gender Identity Female 07/18/2020 1:16 PM [employer] Sexual Orientation Straight 07/18/2020 1: 16 PM [employer] 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 Not on file Not on file documented as of this encounter Plan of Treatment Upcoming Encounters Date Type Department Care Team (Late st Contact Info) Description 11/16/2024 1:00 PM CDT Allied Health/Nurse Visit [facility] Urology [address] [phone] Lucero Britt PA-C 500 [place], [place] 4085[address] 11/16/2024 2:45 PM CDT Office Visit [facility] Urology [address] [phone] Vivien Blanchard MD 420 [facility] 394 [place], [place] 9923[address] 11/20/2024 3:30 PM CDT Office Visit [facility] [address] [place] [address] [place] [id number] [place] [address] 11/22/2024 9:15 AM CDT Office Visit [facility] Heart [facility] [address] [facility] 140 [place] [phone] Federico Linda MD 6405 [facility] [address] [place] [address] 11/30/2024 10:30 AM CDT Lab [facility] [address] [place] [phone] 12/06/2024 10:10 AM CDT Office Visit [facility] 6525 [facility] 200 [place] [phone] Virgie Lobato, PA-C [address] [place] [address] 37[address]25 12/28/2024 11:00 AM CDT Office Visit [facility] 2945 [facility] 200 [place] [phone] Barry Ybarra MD 2945 [facility] 200 [place] [address] 01/26/2025 11:30 AM CDT Office Visit [facility] [address] [place] [address] [place] [address] [place] [address] documented as of this encounter Goals Goal Patient Goal Type Associated Problems Recent Progress Patient-Stated? Author Problem Solving General On track( 019 9:24 AM [employer]) Yes Sheryl Stringer RD Note: My Goal: [...] Out COVID-19 2021 2021 04/25/2021 12:41 PM [employer] Rule Out COVID-19 06/14/2022 06/14/2022 06/14/2022 11:30 AM [employer] Rule Out COVID-19 07/03/2022 07/03/2022 07/04/2022 12:27 AM [employer] Rule Out COVID-19 04/01/2024 04/01/2024 04/01/2024 10:07 PM CDT ESBL 07/05/2024 08/24/2024 Rule Out COVID-19 07/16/2024 07/16/2024 07/16/2024 11:04 PM [employer] Rule Out COVID-19 09/01/2024 09/01/2024 09/01/2024 2:05 AM CDT Rule Out COVID-19 09/21/2024 09/21/2024 09/21/2024 3:25 PM CDT Assessment Noted Time PHQ-9 Depression Total Score: 6 07/28/19 7:04 AM [employer] documented as of this encounter Care Teams [employer] Relationship Specialty Start Date End Date Flynn Ruiz MD [address] [place] [phone] PCP - General Family Practice 04/14/19 05/18/20 Trina Carbajal PA-C [address] [place] [address] PCP - General Family Medicine 05/19/20 04/10/24 [place] [address] [place] [address] PCP - General Family Medicine 04/11/[address] [facility] - [address] [place] [address] Regulatory Leader Dietitian, Registered 11/03/17 Trina Carbajal PA-C [address] [place] [address] Assigned PCP 08/13/19 07/27/20 Federico Linda MD [address] [place], [place] [address] Assigned Heart and Vascular Provider 03/29/20 Connie Blackwell MD [address] [place], [place] [address] Assigned Endocrinology Provider 07/14/20 12/19/20 Ruth Ann Munoz MD [place] [address] [facility] [address] [place] [address] Assigned PCP 07/28/20 08/25/20 Carlos Livingston MD NO INFO AVAILABLE Assigned PCP 08/26/20 08/31/20 Trina Carbajal PA-C [address] [place] [address] Assigned PCP 09/01/20 12/07/20 Carlos Livingston MD NO INFO AVAILABLE Assigned Endocrinology Provider 12/20/20 12/18/22 Carlos Livingston MD NO INFO AVAILABLE Assigned PCP 12/08/20 12/19/20 Trina Carbajal PA-C [address] [place], [place] [address] Assigned PCP 12/20/20 04/28/24 Mari Funes, RN Personal Advocate & Liaison (PAL) Nurse 01/24/21 06/12/21 Jc Zavala MD [facility] [address] [place] [address] Hematology & Oncology 08/07/21 Barbi Manzo, JERRY Personal Advocate & Liaison (PAL) Family Medicine 12/24/21 07/08/23 [place] [address] [place] [address] Assigned Musculoskeletal Provider 04/04/22 08/19/23 Cristofer Michelle MD [address] [place] [address] Gastroenterology 07/28/22 Vivien Blanchard MD [address] [place] [address] Urology 07/28/22 Sapna Hernandez MD [address] [place] [address] Assigned Nephrology Provider 07/11/22 09/25/22 Vivien Blanchard MD [address] [place] [address] Assigned Surgical Provider 07/25/22 06/30/23 Virgie Lobato PA-C [address] [place] [address] Assigned Nephrology Provider 09/26/22 03/28/24 Teetee Velazquez PA-C [address] [place] [address] Physician Protection Chief Industrial Plant 05/11/23 Teetee Velazquez PA-C [address] [place] [address] 979505 Assigned Surgical Provider 07/01/23 Cora Shah RN Personal Advocate & Liaison (PAL) Nurse 07/09/23 09/29/23 [place] [address] 236457 Assigned Musculoskeletal Provider 08/20/23 Cristal Cooper, JERRY Lead Labor Utilization Superintendent Primary Care - CC 04/27/2404/08 Shannon Rowland PA-C [address] [place] [address] Assigned PCP 04/29/24 05/28/24 Lanie Foster, RD, LD [address] [place] [address] Registered Dietitian Nutrition 05/15/24 [place] [address] [place] [address] Assigned PCP 05/29/24 Melonie Caro RPH [address] [place] [address] Pharmacist Pharmacist 06/05/24 Federico Linda MD 6405 [facility] [address] [place], [place] 9[address] Cardiovascular Disease 06/13/24 Melonie Caro RPH [address] [place] [address] Assigned MTM Pharmacist 06/29/24 Virgie Lobato, PA-C [address] [place] [address] Assigned Nephrology Provider 07/30/24 Barry Ybarra MD [address] [place] [address] Hospitalist Infectious Diseases 08/31/24 Barry Ybarra MD [address] [place] [address] Assigned Infectious Disease Provider 10/27/24 documented as of this encounter
--- OUTSIDE RECORDS SUMMARY | 2024-11-12 17:22 | XMS_ITS | Encounter Summary ---
Author Organization [place] Address [address] [place] [address] Care Team Providers Care Cardiovascular Lab Director Name Role Phone Sheryl Stringer Kirk BENITEZ Unavailable [phone] Federico Linda MD Unavailable [phone] Trina Carbajal-C Primary Care Provider Carlos Livingston MD Unavailable Jelena vailable Trina CarbajalC Unavailable [phone] Jc Zavala MD Unavailable [phone] Barbi Manzo RN Unavailable Unavailable Erasto Root MD Unavailable Cristofer Michelle MD Unavailable [phone] Vivien Blanchard MD Unavailable [phone] Sapna Hernandez MD Unavailable Vivien Blanchard MD Unavailable [phone] Virgie Lobato-C Unavailable [phone] Teetee VelazquezC Unavailable Teetee Velazquez PA-C Unavailable [phone] Cora Shah RN Unavailable [phone] MorenoBrad Unavailable [phone] Mary Garcia MD Primary Care Provider Cristal Cooper RN Unavailable Shannon Rowland PA-C Unavailable Lanie Foster RD, LD Unavailabl e Mary Garcia MD Unavailable Melonie Caro [facility] Unavailable Federico Linda MD Unavailable [phone] Melonie Caro [facility] Unavailable Virgie Lobato PA-C Unavailable Barry Ybarra MD Unavailable [phone] Barry Ybarra MD Unavailable [phone] Encounter Details Date Type Department Care Team (Late st Contact Info) Description 03/03/2022 [facility] [address] [address] Barbi Manzo, RN Social History Tobacco Use Types Packs/Day Years Used Date Smoking Tobacco: Never Smokeless Tobacco: Never Alcohol Use Standard Drinks/Week Comments No 0 (1 standard drink = 0.6 oz pur e alcohol) PHQ-2 Answer Date Recorded PHQ-2 Score 1 04/08/2021 Comments No Sex and Gender Information Value Date Recorded Sex Assigned at Female 07/18/2020 1:16 PM [employer] POWER[employer]ANT MECHANIC Legal Sex Female 3:23 AM GAS TUR[employer] POWERPLANT MECHANIC Gender Identity Female 07/18/2020 1:16 PM [employer] POWERPLANT MECHANIC Sexual Orientation Straight 07/18/2020 1: 16 PM [employer] POWERPLANT MECHANIC 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 file Not on file documented as of this encounter Plan of Treatment Upcoming Encounters Date Type Department Care Team (Late st Contact Info) Description 11/16/2024 1:00 PM CDT Allied Health/Nurse Visit [facility] Urology [address] [place] [phone] Lucero Britt PA-C 500 [place], [place] [phone] 11/16/2024 2:45 PM CDT Office Visit [facility] [address] [place] [address] Vivien Blanchard MD 420 [facility] 394 [place], [place] [phone] 11/20/2024 3:30 PM CDT Office Visit [facility] [address] [place] [phone] [place] [address] [place] [address] 11/22/2024 9:15 AM CDT Office Visit [facility] Heart [facility] [address] [facility] [address] [place] [phone] Federico Linda MD 6408 [facility] [address] [place] [address] 11/30/2024 10:30 AM CDT Lab [facility] [address] [place] [address] 12/06/2024 10:10 AM CDT Office Visit [facility]ty [facility] 6525 [facility] 200 [place] [phone] Virgie Lobato PANilesh [address] [place] [address] 12/28/2024 11:00 AM CDT Office Visit [facility] 2945 [facility] 200 [place] [address] Barry Ybarra MD 2945 [facility] 200 [place] [address] 01/26/2025 11:30 AM CDT Office Visit [facility] [address] [place] [address] [place] [address] [place], [place] [phone] documented as of this encounter Goals Goal Patient Goal Type Associated Problems Recent Progress Patient-Stated? Author Problem Solving General On track( 019 9:24 AM G[employer] POWERPLANT MECHANIC) Yes Sheryl Stringer RD Note: My Goal: [...] Last Indicated Resolved Time Rule Out COVID-19 06/14/2022 06/14/2022 06/14/2022 11:30 AM G[employer] POWERPLANT MECHANIC Rule Out COVID-19 07/03/2022 07/03/2022 07/04/2022 12:27 AM G[employer] TUR[employer]INE POWERPLANT MECHANIC Rule Out COVID-19 04/01/2024 04/01/2024 04/01/2024 10:07 PM CDT ESBL 07/05/2024 08/24/2024 Rule Out COVID-19 07/16/2024 07/16/2024 07/16/2024 11:04 PM GAS TURBINE POWERPLANT MECHANIC Rule Out COVID-19 09/01/2024 09/01/2024 09/01/2024 2:05 AM CDT Rule Out COVID-19 09/21/2024 09/21/2024 09/21/2024 3:25 PM CDT Assessment Noted Time PHQ-9 Depression Total Score: 2 03/19/20 21 7:02 AM CDT documented as of this encounter Care Teams Cardiovascular Lab Director Relationship Specialty Start Date End Date Trina Carbajal PA-C [address] [place] [address] PCP - General Family Medicine 05/19/20 04/10/24 [place] [address] [place] [address] PCP - General Family Medicine 04/11/[address] [place] [address] Account Development Executive Dietitian, Registered 11/03/17 Federico Linda MD [address] [place] [address] Assigned Heart and Vascular Provider 03/29/20 Carlos Livingston MD NO INFO AVAILABLE Assigned Endocrinology Provider 12/20/20 12/18/22 Trina Carbajal PA-C [address] [place] [address] Assigned PCP 12/20/20 04/28/24 Jc Zavala MD [facility] [address] [place] [address] Hematology & Oncology 08/07/21 Barbi Manzo, JERRY Personal Advocate & Liaison (PAL) Family Medicine 12/24/21 07/08/23 [place] [address] [place] [address] [address] Assigned Musculoskeletal Provider 04/04/22 08/19/23 Cristofer Michelle MD [address] [place] [address]885 Gastroenterology 07/28/22 Vivien Blanchard MD [address] [place] [address]85 Urology 07/28/22 Sapna Hernandez MD [address] [place] [address] 860495 Assigned Nephrology Provider 07/11/22 09/25/22 Vivien Blanchard MD [address] [place] [address] 425245 Assigned Surgical Provider 07/25/22 06/30/23 Virgie Lobato PA-C [address] [place] [address] 063565 Assigned Nephrology Provider 09/26/22 03/28/24 Teetee Velazquez PA-C [address] [place] [address] 996545 [employer] Architect 05/11/23 Teetee Velazquez PA-C [address] [place] [address] 597355 Assigned Surgical Provider 07/01/23 Cora Shah, RN Personal Advocate & Liaison (PAL) Nurse 07/09/23 09/29/23 [place] [address] [facility] 300 [place], [place] 497[address] Assigned Musculoskeletal Provider 08/20/23 Cristal Cooper, RN Lead Bible Teacher Primary Care - CC 04/27/2404/08 Shannon Rowland PAAnthonyC [address] [place] [address] Assigned PCP 04/29/24 05/28/24 Lanie Foster, RD, LD [address] [place], [place] 5[address] Registered Dietitian Nutrition 05/15/24 [place] [address] [place] [address] Assigned PCP 05/29/24 Melonie Caro [facility] [address] [place] [address] Pharmacist Pharmacist 06/05/24 Federico Linda MD [address] [facility] [address] [place] [address] Cardiovascular Disease 06/13/24 Melonie Caro [facility] [address] [place] [address] Assigned MTM Pharmacist 06/29/24 Virgie Lobato PA-C [address] [place] [address] Assigned Nephrology Provider 07/30/24 Barry Ybarra MD [address] [place] [address] Hospitalist Infectious Diseases 08/31/24 Barry Ybarra MD [address] [place] [address] Assigned Infectious Disease Provider 10/27/24 documented as of this encounter
--- OUTSIDE RECORDS SUMMARY | 2024-11-12 17:22 | XMS_ITS | Encounter Summary ---
Author Organization [facility] Address [address] [place] [address] Care Team Providers Care Eligibility Examiner Name Role Phone Sheryl Stringer Kirk BENITEZ Unavailable [phone] Federico Linda MD Unavailable [phone] Trina CarbajalC Primary Care Provider Carlos Livingston MD Unavailable Jelena vailable Trina Carbajal PA-C Unavailable [phone] Mari Funes RN Unavailable Unavailable Jc Zavala MD Unavailable [phone] Barbi Manzo RN Unavailable Unavailable Erasto Root MD Unavailable Cristofer Michelle MD Unavailable [phone] Vivien Blanchard MD Unavailable [phone] Sapna Hernandez MD Unavailable Vivien Blanchard MD Unavailable [phone] Virgie LobatoC Unavailable Teetee Velazquez PA-C Unavailable [phone] Teetee Velazquez-C Unavailable [phone] Cora Shah RN Unavailable Brad Mayer Unavailable [phone] Mary Garcia MD Primary Care Provider Cristal Cooper RN Unavailable Shannon Rowland PA-C Unavailable [phone], LD Unavailabl e Mary Garcia MD Unavailable Melonie Caro [facility] Unavailable Federico Linda MD Unavailable [phone] Melonie Caro [facility] Unavailable Virgie Loabto-C Unavailable [phone] Barry Ybarra MD Unavailable [phone] Barry Ybarra MD Unavailable [phone] Encounter Details Date Type Department Care Team (Late st Contact Info) Description 05/07/2021 [facility] Endocrinology [address] [place] [phone] Carlos Livingston MD NO INFO AVAILABLE Social History Tobacco Use Types Packs/Day Years Used Date Smoking Tobacco: Never Smokeless Tobacco: Never Alcohol Use Standard Drinks/Week Comments No 0 (1 standard drink = 0.6 oz pur e alcohol) PHQ-2 Answer Date Recorded PHQ-2 Score 1 04/08/2021 Comments No Sex and Gender Information Value Date Recorded Sex Assigned at Female 07/18/2020 1:16 PM MOBILE EQUIPMENT OPERATOR Legal Sex Female 3:23 AM MOBILE EQUIPMENT OPERATOR Gender Identity Female 07/18/2020 1:16 PM MOBILE EQUIPMENT OPERATOR Sexual Orientation Straight 07/18/2020 1: 16 PM MOBILE EQUIPMENT OPERATOR 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 No / Unsure 05/09/2021 9:22 AM MOBILE EQUIPMENT OPERATOR documented as of this encounter Plan of Treatment Upcoming Encounters Date Type Department Care Team (Late st Contact Info) Description 11/16/2024 1:00 PM CDT Allied Health/Nurse Visit [facility] Urology [address] [place] [phone] Lucero Britt PA-C [address] [place], [place] [phone] 11/16/2024 2:45 PM CDT Office Visit [facility] Urology [address] [phone] Vivien Blanchard MD [address] [facility] 394 [place], [place] [address] 11/20/2024 3:30 PM CDT Office Visit [facility] [address] [place] [phone] Mary [place] [id number] [place] [address] 11/22/2024 9:15 AM CDT Office Visit [facility] Heart [facility] [address] [facility] [address] [place] [phone] Federico Linda MD [address] [facility] [address] [place], [place] [address] 11/30/2024 10:30 AM CDT Lab [facility] [address] [place] [phone] 12/06/2024 10:10 AM CDT Office Visit [facility] [address] [phone] Virgie Lobato, PANilesh 9 [place] [address] 12/28/2024 11:00 AM CDT Office Visit [facility] 2945 [facility] 200 [place] [address] [place] [address] [place] [address] 01/26/2025 11:30 AM CDT Office Visit [facility] [address] [place] [phone] [place] [address] [place] [address] documented as of this encounter Goals Goal Patient Goal Type Associated Problems Recent Progress Patient-Stated? Author Problem Solving General On track( 019 9:24 AM MOBILE EQUIPMENT OPERATOR) Yes Sheryl Stringer RD Note: My [...] Out COVID-19 06/14/2022 06/14/2022 06/14/2022 11:30 AM MOBILE EQUIPMENT OPERATOR Rule Out COVID-19 07/03/2022 07/03/2022 07/04/2022 12:27 AM MOBILE EQUIPMENT OPERATOR Rule Out COVID-19 04/01/2024 04/01/2024 04/01/2024 10:07 PM CDT ESBL 07/05/2024 08/24/2024 Rule Out COVID-19 07/16/2024 07/16/2024 07/16/2024 11:04 PM MOBILE EQUIPMENT OPERATOR Rule Out COVID-19 09/01/2024 09/01/2024 09/01/2024 2:05 AM CDT Rule Out COVID-19 09/21/2024 09/21/2024 09/21/2024 3:25 PM CDT Assessment Noted Time PHQ-9 Depression Total Score: 2 03/19/20 7:02 AM CDT documented as of this encounter Care Teams Eligibility Examiner Relationship Specialty Start Date End Date Trina Carbajal PA-C [address] [place] [address] PCP - General Family Medicine 05/19/20 04/10/24 [place] [address] [place] [address] PCP - General Family Medicine 04/11/[address] [place] [address] Ironworker Foreman Dietitian, Registered 11/03/17 Federico Linda MD [address] [place] [address] Assigned Heart and Vascular Provider 03/29/20 Carlos Livingston MD NO INFO AVAILABLE Assigned Endocrinology Provider 12/20/20 12/18/22 Trina Carbajal PA-C [address] [place] [address] Assigned PCP 12/20/20 04/28/24 Mari Funes, JERRY Personal Advocate & Liaison (PAL) Nurse 01/24/21 06/12/21 Jc Zavala MD [facility] [address] [place] [address] Hematology & Oncology 08/07/21 Barbi Manzo, RN Personal Advocate & Liaison (PAL) Family Medicine 12/24/21 07/08/23 [place] [address] [place] [address] Assigned Musculoskeletal Provider 04/04/22 08/19/23 Cristofer Michelle MD [address] [place] [address] [address] [place] [address] Gastroenterology 07/28/22 Vivien Blanchard MD [address] [facility] 394 [place] [address] Urology 07/28/22 Sapna Hernandez MD [address] [facility] [address] [place] [address] Assigned Nephrology Provider 07/11/22 09/25/22 Vivien Blanchard MD [address] [facility] [address] [place], [place] 5310[address] Assigned Surgical Provider 07/25/22 06/30/23 Virgie Lobato PA-C [address] [place] [address] 476685 Assigned Nephrology Provider 09/26/22 03/28/24 Teetee Velazquez PA-C [address] [place] [address] Physician Leg Breaker 05/11/23 Teetee Velazquez PA-C [address] [place] [address] Assigned Surgical Provider 07/01/23 Cora Shah, JERRY Personal Advocate & Liaison (PAL) Nurse 07/09/23 09/29/23 [place] [address] [address] [phone] Assigned Musculoskeletal Provider 08/20/23 Cristal Cooper RN Lead Asbestos Cloth Inspector Primary Care - CC 04/27/2404/08 Shannon Rowland PA-C [address] [place] [phone] Assigned PCP 04/29/24 05/28/24 Lanie Foster, RD, LD [address] [place] [address] Registered Dietitian Nutrition 05/15/24 [place] [address] [place] [address] Assigned PCP 05/29/24 Melonie Caro RPH [address] [place], [place] [address] Pharmacist Pharmacist 06/05/24 Federico Linda MD [address] [place] [address] Cardiovascular Disease 06/13/24 Melonie Caro Gin [address] [place] [address] Assigned MTM Pharmacist 06/29/24 Virgie Lobato, PAAnthonyC [address] [place] [address]1885 Assigned Nephrology Provider 07/30/24 Barry Ybarra MD [address] [place] [address] Hospitalist Infectious Diseases 08/31/24 Barry Ybarra MD [address] [place] [address] Assigned Infectious Disease Provider 10/27/24 documented as of this encounter
--- OUTSIDE RECORDS SUMMARY | 2024-11-12 17:22 | XMS_ITS | Encounter Summary ---
Author Organization [facility] Address [address] [place] [address] Care Team Providers Care Linen Room Worker Name Role Phone Sheryl Stringer ELI Unavailable [phone] Flynn Ruiz MD Primary Care Provider Trina Carbajal PA-C Unavailable [phone] Federico Linda MD Unavailable Trina Carbajal PA-C Primary Care Provider [phone] Connie Blackwell MD Unavailable [phone] Ruth Ann Munoz MD Unavailable + Carlos Livingston MD Unavailable Jelena ericailable Trina Carbajal PA-C Unavailable [phone] Carlos Livingston MD Unavailable Jelena ericailable Carlos Livingston MD Unavailable Jelena Trina Marcum PA-C Unavailable [phone] Mari Funes RN Unavailable Unavailable Jc Zavala MD Unavailable [phone] Barbi Manzo RN Unavailable Unavailable Erasto Root MD Unavailable Cristofer Michelle MD Unavailable [phone] Vivien Blanchard MD Unavailable [phone] Sapna Hernandez MD Unavailable Vivien Blanchard MD Unavailable [phone] Virgie Lobato-C Unavailable [phone] Teetee Velazquez PA-C Unavailable [phone] Teetee Velazquez PA-C Unavailable [phone] Cora Shah RN Unavailable Brad Mayer DO Unavailable [phone] Mary Garcia MD Primary Care Provider Cristal Cooper RN Unavailable Shannon Rowland PA-C Unavailable [phone], LD Unavailabl e Mary Garcia MD Unavailable Melonie Caro [facility] Unavailable [phone] Federico Linda MD Unavailable [phone] Melonie Caro [facility] Unavailable Virgie viramontes-C Unavailable [phone] Barry Ybarra MD Unavailable [phone] Barry Ybarra MD Unavailable [phone] Reason for Visit * Reason Onset Date Comments Hypertension 11/09/2019 Encounter Details Date Type Department Care Team (Late st Contact Info) Description 11/09/[address] [facility] Medical [address] [phone] Trina Carbajal, GIUSEPPEC [address] [place] [address] Hypertension Social History Tobacco Use Types Packs/Day Years Used Date Smoking Tobacco: Never Smokeless Tobacco: Never Alcohol Use Standard Drinks/Week Comments No 0 (1 standard drink = 0.6 oz pur e alcohol) PHQ-2 Answer Date Recorded PHQ-2 Score 0 07/27/2019 Comments No Sex and Gender Information Value Date Recorded Sex Assigned at Female 07/18/2020 1:16 PM PIECE MEAT TRIMMER Legal Sex Female 3:23 AM PIECE MEAT TRIMMER Gender Identity Female 07/18/2020 1:16 PM PIECE MEAT TRIMMER Sexual Orientation Straight 07/18/2020 1: 16 PM PIECE MEAT TRIMMER 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 See Prizzm message. Waiting for response. Lindsey Cabrera RN 07/27/2019 [facility] 2. Essential hypertension Discussed options for BP. Recommend continued monitoring at home. Await labs. I still don't think she is well hydrated. If BPs remain elevated primary care or cardiology to [facility]. Patient will send [place]. - Albumin Random Urine Quantitative with Creat Ratio - triamterene-HCTZ 37.5-25 MG PO tablet; Take 1 tablet by mouth daily Dispense: 90 tablet - Comprehensive metabolic panel Instructions Return in about 3 months (around 10/25/2019) for BP recheck/follow up. documented in this encounter Plan of Treatment Upcoming Encounters Date Type Department Care Team (Late st Contact Info) Description 11/16/2024 1:00 PM CDT Allied Health/Nurse Visit [facility] [address] [place] [phone] Lucero Britt PA-C 500 [place], [place] [address] 11/16/2024 2:45 PM CDT Office Visit [facility] Urology [facility] 9[address] [facility] 4th [place] [phone] Vivien Blanchard MD 420 [facility] 394 [place], [place] [address] 11/20/2024 3:30 PM CDT Office Visit [facility] [address] [place] [phone] [place] [address] [place], [place] [address] 11/22/2024 9:15 AM CDT Office Visit [facility] Heart [facility] [address] [facility] [address] [place] [phone] Federico Linda MD [address] [facility] [address] [place], [place] [address] 11/30/2024 10:30 AM CDT Lab [facility] [address] [place] [phone] 12/06/2024 10:10 AM CDT Office Visit [facility] Specialty [facility] 65[address] [facility] 200 [place] [phone] Virgie Lobato PA-C [address] [place] [address] 723535 12/28/2024 11:00 AM CDT Office Visit [facility] [address] [facility] [address] [place] [address] Barry Ybarra MD [address] [facility] [address] [place] [address] 01/26/2025 11:30 AM CDT Office Visit [facility] [address] [place] [phone] [place] [address] [place], [place] [phone] documented as of this encounter Goals Goal Patient Goal Type Associated Problems Recent Progress Patient-Stated? Author Problem Solving General On track( 019 9:24 AM PIECE MEAT TRIMMER) Yes Sheryl Stringer RD Note: My Goal: [...] Out COVID-19 2021 2021 04/25/2021 12:41 PM PIECE MEAT TRIMMER Rule Out COVID-19 06/14/2022 06/14/2022 06/14/2022 11:30 AM PIECE MEAT TRIMMER Rule Out COVID-19 07/03/2022 07/03/2022 07/04/2022 12:27 AM PIECE MEAT TRIMMER Rule Out COVID-19 04/01/2024 04/01/2024 04/01/2024 10:07 PM CDT ESBL 07/05/2024 08/24/2024 Rule Out COVID-19 07/16/2024 07/16/2024 07/16/2024 11:04 PM PIECE MEAT TRIMMER Rule Out COVID-19 09/01/2024 09/01/2024 09/01/2024 2:05 AM CDT Rule Out COVID-19 09/21/2024 09/21/2024 09/21/2024 3:25 PM CDT Assessment Noted Time PHQ-9 Depression Total Score: 6 07/28/19 20 7:04 AM PIECE MEAT TRIMMER documented as of this encounter Care Teams Linen Room Worker Relationship Specialty Start Date End Date Flynn Ruiz MD [address] [place] [address] PCP - General Family Practice 04/14/19 05/18/20 Trina Carbajal, JAMES-C [address] [place] [address] PCP - General Family Medicine 05/19/20 04/10/24 [place] [address] [place] [address] PCP - General Family Medicine 04/11/[address] [place] [address] Occupational Therapy Program Director Dietitian, Registered 11/03/17 Trina Carbajal, GIUSEPPEC [address] [place] [address] Assigned PCP 08/13/19 07/27/20 Federico Linda MD [address] [place] [address] Assigned Heart and Vascular Provider 03/29/20 Connie Blackwell MD [address] [place] [address] Assigned Endocrinology Provider 07/14/20 12/19/20 Ruth Ann Munoz MD [place] [address] [facility] [address] [place] [address] Assigned PCP 07/28/20 08/25/20 Carlos Livingston MD NO INFO AVAILABLE Assigned PCP 08/26/20 08/31/20 Trina Carbajal PA-C [address] [place] [address] Assigned PCP 09/01/20 12/07/20 Carlos Livingston MD NO INFO AVAILABLE Assigned Endocrinology Provider 12/20/20 12/18/22 Carlos Livingston MD NO INFO AVAILABLE Assigned PCP 12/08/20 12/19/20 Trina Carbajal PA-C [address] [place] [address] Assigned PCP 12/20/20 04/28/24 Mari Funes, JERRY Personal Advocate & Liaison (PAL) Nurse 01/24/21 06/12/21 Jc Zavala MD [facility] [address] [facility] [place] [address] Hematology & Oncology 08/07/21 Barbi Manzo, JERRY Personal Advocate & Liaison (PAL) Family Medicine 12/24/21 07/08/23 [place] [address] [place] [address] Assigned Musculoskeletal Provider 04/04/22 08/19/23 Cristofer Michelle MD [address] [place] [address] Gastroenterology 07/28/22 Vivien Blanchard MD [address] [place] [address] Urology 07/28/22 Sapna Hernandez MD [address] [place] [address] Assigned Nephrology Provider 07/11/22 09/25/22 Vivien Blanchard MD [address] [place] [address] Assigned Surgical Provider 07/25/22 06/30/23 Virgie Lobato PA-C [address] [place] [address] Assigned Nephrology Provider 09/26/22 03/28/24 Teetee Velazquez PA-C [address] [place] [address] Physician Cargo Bracer 05/11/23 eTetee Velazquez PA-C [address] [place] [address] Assigned Surgical Provider 07/01/23 Cora Shah RN Personal Advocate & Liaison (PAL) Nurse 07/09/23 09/29/23 [place] [address] [address] [facility] 300 [place] [address] Assigned Musculoskeletal Provider 08/20/23 Cristal Cooper, JERRY Lead Front End Loader Driver Primary Care - CC 04/27/2404/08 Shannon Rowland, PAAnthonyC [address] [place] [phone] Assigned PCP 04/29/24 05/28/24 Lanie Foster, RD, LD [address] [place] 8[address] Registered Dietitian Nutrition 05/15/24 [place] [address] [place] [address] Assigned PCP 05/29/24 Melonie Caro [facility] [address] [place] [address] Pharmacist Pharmacist 06/05/24 Federico Linda MD [address] [facility] [address] [place] [address] Cardiovascular Disease 06/13/24 Melonie Caro [facility] [address] [place] [address] Assigned MTM Pharmacist 06/29/24 Virgie Lobato PA-C [address] [place] [address] Assigned Nephrology Provider 07/30/24 Barry Ybarra MD [address] [place] [address] Hospitalist Infectious Diseases 08/31/24 Barry Ybarra MD [address] [place] [address] Assigned Infectious Disease Provider 10/27/24 documented as of this encounter
--- OUTSIDE RECORDS SUMMARY | 2024-11-12 17:22 | XMS_ITS | Encounter Summary ---
Author Organization [facility] Address [address] [place] [address] Care Team Providers Care Manager Of Allied Health Services Name Role Phone Flynn Ruiz MD Primary Care Provider [phone] Sigifredo Segal MD Primary Care Provider [phone] No Ref-Primary, Physician Primary Care Provider Flynn Ruiz MD Primary Care Provider [phone] Ref-Primary, Physician Primary Care Provider Shreyl Stringer RD Unavailable [phone] Flynn Ruiz MD Primary Care Provider [phone] Sheryl Jaimes MD Primary Care Provider Unavailab Flynn Morris MD Unavailable [phone] [facility] Primary Care Provider No Ref-Primary, Physician Primary Care Provider Flynn Ruiz MD Unavailable [phone] Ruth Ann Munoz MD Primary Care Prov ider Ruth Ann Munoz MD Unavailable + Flynn Ruiz MD Primary Care Provider Ruth Ann Munoz MD Unavailable + Flynn Ruiz MD Unavailable [phone] Flynn Ruiz MD Unavailable [phone] Mari Funes RN Unavailable Unavailable Ruth Ann Munoz MD Unavailable + Trina Carbajal PA-C Unavailable [phone] Federico Linda MD Unavailable [phone] Trina Carbajal PA-C Primary Care Provider [phone] Connie Blackwell MD Unavailable [phone] Ruth Ann Munoz MD Unavailable + Carlos Livingston MD Unavailable Jelena vailable Trina Carbajal PA-C Unavailable [phone] Carlos Livingston MD Unavailable Jelena vailable Carlos Livingston MD Unavailable Jelena vailable Trina Carbajal PA-C Unavailable [phone] Mari Funes RN Unavailable Unavailable Jc Zavala MD Unavailable [phone] Barbi Manzo RN Unavailable Unavailable Erasto Root MD Unavailable Cristofer Michelle MD Unavailable [phone] Vivien Blanchard MD Unavailable [phone] Sapna Hernandez MD Unavailable Vivien Blanchard MD Unavailable [phone] Virgie Lobato-C Unavailable [phone] Teetee Velazquez PA-C Unavailable [phone] Teetee Velazquez PA-C Unavailable Cora Shah RN Unavailable Brad Mayre Unavailable [phone] Mary Garcia MD Primary Care Provider [phone] Cristal Cooper RN Unavailable Shannon Rowland PA-C Unavailable [phone], LD Unavailabl e Mary Garcia MD Unavailable Melonie Caro [facility] Unavailable Federico Linda MD Unavailable Melonie Caro [facility] Unavailable Virgie Lobato-C Unavailable [phone] Barry Ybarra MD Unavailable Baryr Ybarra MD Unavailable Encounter Details Date Type Department Care Team (Late st Contact Info) Description 04/29/2015 [facility] [address] [place] [address] Scott Del Toro MD [facility] [address] [facility] [address] [place] [address] Pre-operative laboratory examination (Primary Dx) Social History Tobacco Use Types Packs/Day Years Used Date Smoking Tobacco: Never Alcohol Use Standard Drinks/Week Comments No 0 (1 standard drink = 0.6 oz pur e alcohol) Comments No Sex and Gender Information Value Date Recorded Sex Assigned at Female 07/18/2020 1:16 PM REGIONAL ENGAGEMENT CONSULTANT Legal Sex Female 3:23 AM REGIONAL ENGAGEMENT CONSULTANT Gender Identity Female 07/18/2020 1:16 PM REGIONAL ENGAGEMENT CONSULTANT Sexual Orientation Straight 07/18/2020 1: 16 PM REGIONAL ENGAGEMENT CONSULTANT 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 Not on file Not on file documented as of this encounter Plan of Treatment Upcoming Encounters Date Type Department Care Team (Late st Contact Info) Description 11/16/2024 1:00 PM CDT Allied Health/Nurse Visit [facility] Urology [address] [address] Lucero Britt PA-C 500 [place], [place] [address] 11/16/2024 2:45 PM CDT Office Visit [facility] Urology [address] [phone] Vivien Blanchard MD 420 [facility] 394 [place], [place] [phone] 11/20/2024 3:30 PM CDT Office Visit [facility] [address] [place] [phone] [place] [address] [place] [address] 11/22/2024 9:15 AM CDT Office Visit [facility] Heart [facility] [address] [facility] [address] [place] [phone] Federico Linda MD 6403 [facility] [address] [place], [place] [address] 11/30/2024 10:30 AM CDT Lab [facility] [address] [place] [phone] 12/06/2024 10:10 AM CDT Office Visit [facility] Specialty [facility] [address] [phone] Virgie Lobato PA-C 909 [place] [address] 12/28/2024 11:00 AM CDT Office Visit [facility] 2945 [facility] 200 [place] [phone] Barry Ybarra MD 2945 [facility] 200 [place] [address] 01/26/2025 11:30 AM CDT Office Visit [facility] [address] [place] [phone] [place] [address] [place] [address] documented as of this encounter Results * Methicillin Resistant Staph Aureus PCR (04/30/2015 5:30 PM REGIONAL ENGAGEMENT CONSULTANT) Specimen Description Nares [facility] Methicillin Resist/Sens S. aureus PCR Negative MRSA Negative: SA Positive MRSA target DNA not detected, presumed negative for MRSA colonization or the number of bacteria present may be below the limit of detection. Staphylococcus aureus target DNA detected, presumed positive for SA colonization. A positive test does not necessarily indicate the presence of viable organisms. It is, however, presumptive for the presence of SA. This result does not preclude MRSA nasal colonization. FDA approved assay performed using [employer]ix GeneXpert(R) real-time PCR. NEG [facility] 04/30/2015 5:30 PM REGIONAL ENGAGEMENT CONSULTANT 04/30/2015 6:51 PM REGIONAL ENGAGEMENT CONSULTANT us Scott Del Toro MD LAB - MICRO GENERAL ORDERABLES Final Result [facility] 500 [place] [address], [facility] [address] [facility] [place] [address] [phone] documented in this encounter Visit Diagnoses Diagnosis Pre-operative laboratory examination- Primary Pre-procedural laboratory examination documented in this encounter Additional Health Concerns Infection Onset Date Last Indicated Resolved Time Rule Out COVID-19 03/08/2021 03/08/2021 03/09/2021 1:42 AM CDT Rule Out C-difficile 03/10/2021 03/10/2021 021 5:50 PM CDT Rule Out COVID-19 2021 2021 04/25/2021 12:41 PM REGIONAL ENGAGEMENT CONSULTANT Rule Out COVID-19 06/14/2022 06/14/2022 06/14/2022 11:30 AM REGIONAL ENGAGEMENT CONSULTANT Rule Out COVID-19 07/03/2022 07/03/2022 07/04/2022 12:27 AM REGIONAL ENGAGEMENT CONSULTANT Rule Out COVID-19 04/01/2024 04/01/2024 04/01/2024 10:07 PM CDT ESBL 07/05/2024 08/24/2024 Rule Out COVID-19 07/16/2024 07/16/2024 07/16/2024 11:04 PM REGIONAL ENGAGEMENT CONSULTANT Rule Out COVID-19 09/01/2024 09/01/2024 09/01/2024 2:05 AM CDT Rule Out COVID-19 09/21/2024 09/21/2024 09/21/2024 3:25 PM CDT documented as of this encounter Care Teams Manager Of Allied Health Services Relationship Specialty Start Date End Date Flynn Ruiz MD PCP - General Family Practice 08/25/11 07/14/16 Sigifredo Segal MD [facility] [address] [place] [phone] PCP - General Family Practice 07/15/16 10/13/16 No Ref-Primary, Physician PCP - General 10/14/16 03/14/17 Flynn Ruiz MD PCP - General Family Practice 03/15/17 11/02/17 No Ref-Primary, Physician PCP - General 11/03/17 12/07/17 Flynn Ruiz MD PCP - General Family Practice 12/08/17 07/07/18 Sheryl Jaimes MD [facility] 1440 [facility] [place] [address] PCP - General Family Practice 07/08/18 08/02/18 Flynn Ruiz MD [address] [place] [address] PCP - Assigned PCP 07/10/18 08/09/18 [facility] [address] [place], [place] [phone] PCP - General 08/03/18 08/04/18 No Ref-Primary, Physician PCP - General 08/05/18 08/30/18 [place] [address] [place], [place] [phone] PCP - General Family Practice 08/31/18 04/13/19 Flynn Ruiz MD [facility] [address] [facility] [address] [place] [address] PCP - General Family Practice 04/14/19 05/18/20 Trina Carbajal, GIUSEPPEC 6405 [facility] [address] [place] [address] PCP - General Family Medicine 05/19/20 04/10/24 [place] [address] [place] [id number] PCP - General Family Medicine 04/11/[address] [place] [id number] Broach Trouble Shooter Dietitian, Registered 11/03/17 Flynn Ruiz MD [address] [place] [address] Assigned PCP 04/24/18 12/24/18 Ruth Ann Munoz MD [place] [address] [employer] [address] [place], [place] [address] Assigned PCP 12/25/18 04/22/19 Ruth Ann Munoz MD [place] [address] [employer] [address] [place] [address] Assigned PCP 04/30/19 05/27/19 Flynn Ruiz MD [address] [place] [address] Assigned PCP 04/23/19 04/29/19 Flynn Ruiz MD [address] [place] [address] Assigned PCP 05/28/19 07/22/19 Mari Funes, RN Personal Advocate & Liaison (PAL) 07/27/19 07/30/19 Ruth Ann Munoz MD [facility] [address] [place] [id number] Assigned PCP 07/23/19 08/12/19 Trina Carbajal PA-C [address] [place] [address] Assigned PCP 08/13/19 07/27/20 Federico Linda MD [address] [place] [address] Assigned Heart and Vascular Provider 03/29/20 Connie Blackwell MD [address] [place] [address] Assigned Endocrinology Provider 07/14/20 12/19/20 Ruth Ann Munoz MD [place] [address] [place], [place] [address] Assigned PCP 07/28/20 08/25/20 Carlos Livingston MD NO INFO AVAILABLE Assigned PCP 08/26/20 08/31/20 Trina Carbajal PA-C [address] [place] [address] Assigned PCP 09/01/20 12/07/20 Carlos Livingston MD NO INFO AVAILABLE Assigned Endocrinology Provider 12/20/20 12/18/22 Carlos Livingston MD NO INFO AVAILABLE Assigned PCP 12/08/20 12/19/20 Trina Carbajal, PA-C 6405 [facility] [address] [place] [id number] Assigned PCP 12/20/20 04/28/24 Mari Funes, JERRY Personal Advocate & Liaison (PAL) Nurse 01/24/21 06/12/21 Jc Zavala MD [facility] [address] [place] [address] Hematology & Oncology 08/07/21 Barbi Manzo RN Personal Advocate & Liaison (PAL) Family Medicine 12/24/21 07/08/23 [place] [address] [place] [address] [place] [address] Assigned Musculoskeletal Provider 04/04/22 08/19/23 Cristofer Michelle MD [address] [place] [address] 1[address] [place] [address] Gastroenterology 07/28/22 Vivien Blanchard MD [address] [place] [address] 146295 Urology 07/28/22 Sapna Hernandez MD [address] [place] [address] Assigned Nephrology Provider 07/11/22 09/25/22 Vivien Blanchard MD [address] [place] [address] Assigned Surgical Provider 07/25/22 06/30/23 Virgie Lobato PA-C [address] [place] [address] Assigned Nephrology Provider 09/26/22 03/28/24 Teetee Velazquez PA-C [address] [place] [address] Physician Interior Mechanic 05/11/23 Teetee Velazquez PA-C [address] [place] [address] 918475 Assigned Surgical Provider 07/01/23 Cora Shah RN Personal Advocate & Liaison (PAL) Nurse 07/09/23 09/29/23 [place] [address] [address] Assigned Musculoskeletal Provider 08/20/23 Cristal Cooper RN Lead Judge Clerk Primary Care - CC 04/27/2404/08 Shannon Rowland PA-C [address] [place] [address] Assigned PCP 04/29/24 05/28/24 Lanie Foster, RD, LD [address] [place] [address] Registered Dietitian Nutrition 05/15/24 [place] [address] [place] [address] Assigned PCP 05/29/24 Melonie Caro G[facility] [address] [place] [address] Pharmacist Pharmacist 06/05/24 Federico Linda MD 6405 [facility] S ART [address] [place], [place] [address] Cardiovascular Disease 06/13/24 Melonie Caro [facility] [address] [place] [address] Assigned MTM Pharmacist 06/29/24 Virgie Lobato, PAAnthonyC [address] [place] [address] [phone] Assigned Nephrology Provider 07/30/24 Barry Ybarra MD [address] [place] [address] Hospitalist Infectious Diseases 08/31/24 Barry Ybarra MD [address] [place] [address] Assigned Infectious Disease Provider 10/27/24 documented as of this encounter
--- OUTSIDE RECORDS SUMMARY | 2024-11-12 17:22 | XMS_ITS | Encounter Summary ---
Author Organization [facility] Address [address] [place] [address] Care Team Providers Care Safety Coordinator Name Role Phone Sheryl Stringer Kirk BENITEZ Unavailable [phone] Federico Linda MD Unavailable [phone] Trina CarbajalC Primary Care Provider Carlos Livingston MD Unavailable Jelena vailable Trina Carbajal PA-C Unavailable [phone] Mari Funes RN Unavailable Unavailable Jc Zavala MD Unavailable [phone] Barbi Manzo RN Unavailable Unavailable Erasto Root MD Unavailable Cristofer Michelle MD Unavailable [phone] Vivien Blanchard MD Unavailable [phone] Sapna Hernandez MD Unavailable Vivien Blanchard MD Unavailable [phone] Virgie LobatoC Unavailable [phone] Teetee Velazquez PA-C Unavailable [phone] Teetee Velazquez-C Unavailable [phone] Cora Shah RN Unavailable Brad Mayer Unavailable [phone] Mary Garcia MD Primary Care Provider [phone] Cristal Cooper RN Unavailable Shannon Rowland PA-C Unavailable [phone], LD Unavailabl e Mary Garcia MD Unavailable Melonie Caro [facility] Unavailable Federico Linda MD Unavailable [phone] Melonie Caro [facility] Unavailable Virgie Lobato-C Unavailable [phone] Barry Ybarra MD Unavailable [phone] Barry Ybarra MD Unavailable [phone] Encounter Details Date Type Department Care Team (Late st Contact Info) Description 06/10/2021 [facility] [address] [phone] Carlos Livingston MD NO INFO AVAILABLE Social History Tobacco Use Types Packs/Day Years Used Date Smoking Tobacco: Never Smokeless Tobacco: Never Alcohol Use Standard Drinks/Week Comments No 0 (1 standard drink = 0.6 oz pur e alcohol) PHQ-2 Answer Date Recorded PHQ-2 Score 1 04/08/2021 Comments No Sex and Gender Information Value Date Recorded Sex Assigned at Female 07/18/2020 1:16 PM AUTO FLEET MAINTENANCE MANAGER Legal Sex Female 3:23 AM AUTO FLEET MAINTENANCE MANAGER Gender Identity Female 07/18/2020 1:16 PM AUTO FLEET MAINTENANCE MANAGER Sexual Orientation Straight 07/18/2020 1: 16 PM AUTO FLEET MAINTENANCE MANAGER 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 No / Unsure 06/02/2021 3:37 PM AUTO FLEET MAINTENANCE MANAGER documented as of this encounter Plan of Treatment Upcoming Encounters Date Type Department Care Team (Late st Contact Info) Description 11/16/2024 1:00 PM CDT Allied Health/Nurse Visit [facility] Urology [address] [place] [phone] Lucero Britt PA-C 500 [place], [place] [phone] 11/16/2024 2:45 PM CDT Office Visit [facility] Urology [address] [address] Vivien Blanchard MD 420 [facility] 394 [place], [place] [phone] 11/20/2024 3:30 PM CDT Office Visit [facility] [address] [place] [phone] [place] [address] [place] [address] 11/22/2024 9:15 AM CDT Office Visit [facility] Heart [facility] [address] [facility] [address] [place] [phone] Federico Linda MD 6408 [facility] [address] [place], [place] [address] 11/30/2024 10:30 AM CDT Lab [facility] [address] [place] [phone] 12/06/2024 10:10 AM CDT Office Visit [facility] 6525 [facility] 200 [place] [phone] Virgie Lobato, PANilesh 909 [place] [address] 12/28/2024 11:00 AM CDT Office Visit [facility] 2945 [facility] 200 [place] [address] Barry Ybarra MD [address] [place] [address] 01/26/2025 11:30 AM CDT Office Visit [facility] [address] [place] [phone] [place] [address] [place] [address] documented as of this encounter Goals Goal Patient Goal Type Associated Problems Recent Progress Patient-Stated? Author Problem Solving General On track( 019 9:24 AM AUTO FLEET MAINTENANCE MANAGER) Yes Sheryl Stringer RD Note: My Goal: [...] Out COVID-19 06/14/2022 06/14/2022 06/14/2022 11:30 AM AUTO FLEET MAINTENANCE MANAGER Rule Out COVID-19 07/03/2022 07/03/2022 07/04/2022 12:27 AM AUTO FLEET MAINTENANCE MANAGER Rule Out COVID-19 04/01/2024 04/01/2024 04/01/2024 10:07 PM CDT ESBL 07/05/2024 08/24/2024 Rule Out COVID-19 07/16/2024 07/16/2024 07/16/2024 11:04 PM AUTO FLEET MAINTENANCE MANAGER Rule Out COVID-19 09/01/2024 09/01/2024 09/01/2024 2:05 AM CDT Rule Out COVID-19 09/21/2024 09/21/2024 09/21/2024 3:25 PM CDT Assessment Noted Time PHQ-9 Depression Total Score: 2 03/19/20 21 7:02 AM CDT documented as of this encounter Care Teams Safety Coordinator Relationship Specialty Start Date End Date Trina Carbajal PA-C [address] [place] [address] PCP - General Family Medicine 05/19/20 04/10/24 [place] [address] [place] [address] PCP - General Family Medicine 04/11/[address] [place] [address] Stunt Driver Dietitian, Registered 11/03/17 Federico Linda MD [address] [place] [address] Assigned Heart and Vascular Provider 03/29/20 Carlos Livingston MD NO INFO AVAILABLE Assigned Endocrinology Provider 12/20/20 12/18/22 Trina Carbajal PA-C [address] [place] [address] Assigned PCP 12/20/20 04/28/24 Mari Funes, JERRY Personal Advocate & Liaison (PAL) Nurse 01/24/21 06/12/21 Jc Zavala MD [facility] [address] [place] [address] Hematology & Oncology 08/07/21 Barbi Manzo, JERRY Personal Advocate & Liaison (PAL) Family Medicine 12/24/21 07/08/23 [place] [address] [place] [address] Assigned Musculoskeletal Provider 04/04/22 08/19/23 Cristofer Michelle MD [address] [place] [address] 1[address] [place] [address] Gastroenterology 07/28/22 Vivien Blanchard MD 420 [facility] 394 [place], [place] [address] Urology 07/28/22 Sapna Hernandez MD 420 [facility] 394 [place] [address] Assigned Nephrology Provider 07/11/22 09/25/22 Vivien Blanchard MD 420 [facility] 394 [place], [place] 5[address] Assigned Surgical Provider 07/25/22 06/30/23 Virgie Lobato, PAAnthonyC [address] [place] [address] 497765 Assigned Nephrology Provider 09/26/22 03/28/24 Teetee Velazquez PA-C 909 [place] [address] Physician Bariatric Program Coordinator 05/11/23 Teetee Velazquez PA-C 909 [place], [place] 585085 Assigned Surgical Provider 07/01/23 Cora Shah, JERRY Personal Advocate & Liaison (PAL) Nurse 07/09/23 09/29/23 [place] [address] [address] ESP[address]OSA, [address] 829067 Assigned Musculoskeletal Provider 08/20/23 Cristal Cooper RN Lead Credit Union Teller Primary Care - CC 04/27/2404/08 Shannon Rowland PA-C [address] [place] [address] Assigned PCP 04/29/24 05/28/24 Lanie Foster, RD, LD [address] [place] [address] Registered Dietitian Nutrition 05/15/24 [place] [address] [place] [address] Assigned PCP 05/29/24 Melonie Caro RPH [address] [place], [place] [address] Pharmacist Pharmacist 06/05/24 Federico Linda MD [address] [place], [place] [address] Cardiovascular Disease 06/13/24 Melonie Caro RPH [address] [place] [address] Assigned MTM Pharmacist 06/29/24 Virgie Lobato, PAAnthonyC [address] [place] [address] 639855 Assigned Nephrology Provider 07/30/24 Barry Ybarra MD [address] [place] [address] Hospitalist Infectious Diseases 08/31/24 Barry Ybarra MD [address] [place] [address] Assigned Infectious Disease Provider 10/27/24 documented as of this encounter
--- OUTSIDE RECORDS SUMMARY | 2024-11-12 17:22 | XMS_ITS | Encounter Summary ---
Author Organization [place] Address [address] [place] [address] Care Team Providers Care Poured Pipe Maker Name Role Phone Sheryl Stringer ELI Unavailable [phone] Flynn Ruiz MD Primary Care Provider Flynn Ruiz MD Unavailable Mari Funes RN Unavailable Unavailable Ruth Ann Munoz MD Unavailable + Trina Carbajal PA-C Unavailable [phone] Federico Linda MD Unavailable [phone] Trina Carbajal PA-C Primary Care Provider [phone] Connie Blackwell MD Unavailable [phone] Ruth Ann Munoz MD Unavailable + Carlos Livingston MD Unavailable Jelena Trina Marcum PA-C Unavailable [phone] Carlos Livingston MD Unavailable Jelena vailable Carlos Livingston MD Unavailable Jelena vailable Trina Carbajal PA-C Unavailable [phone] Mari Funes RN Unavailable Unavailable Jc Zavala MD Unavailable [phone] Barbi Manzo RN Unavailable Unavailable Erasto Root MD Unavailable Cristofer Michelle MD Unavailable [phone] Vivien Blanchard MD Unavailable [phone] Sapna Hernandez MD Unavailable Vivien Blanchard MD Unavailable [phone] Virgie Lobato-C Unavailable [phone] Teetee Velazquez PA-C Unavailable [phone] Teetee Velazquez PA-C Unavailable [phone] Cora Shah RN Unavailable Brad Mayer DO Unavailable [phone] Mary Garcia MD Primary Care Provider Cristal Cooper RN Unavailable Shannon Rowland PA-C Unavailable [phone], LD Unavailabl e Mary Garcia MD Unavailable Melonie Caro [facility] Unavailable [phone] Federico Linda MD Unavailable [phone] Melonie Caro [facility] Unavailable Virgie Lobato-C Unavailable [phone] Barry Ybarra MD Unavailable [phone] Barry Ybarra MD Unavailable [phone] Encounter Details Date Type Department Care Team (Late st Contact Info) Description 07/10/2019 MyC Medical Advice [facility] Heart [facility] [address] [facility] [address] [place] [address] Federico Linda MD [address] [facility] [address] [place] [address] Social History Tobacco Use Types Packs/Day Years Used Date Smoking Tobacco: Never Smokeless Tobacco: Never Alcohol Use Standard Drinks/Week Comments No 0 (1 standard drink = 0.6 oz pur e alcohol) PHQ-2 Answer Date Recorded PHQ-2 Score 2 06/21/2018 Comments No Sex and Gender Information Value Date Recorded Sex Assigned at Female 07/18/2020 1:16 PM CONE OPERATOR Legal Sex Female 3:23 AM CONE OPERATOR Gender Identity Female 07/18/2020 1:16 PM CONE OPERATOR Sexual Orientation Straight 07/18/2020 1: 16 PM CONE OPERATOR 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 file Not on file documented as of this encounter Plan of Treatment Upcoming Encounters Date Type Department Care Team (Late st Contact Info) Description 11/16/2024 1:00 PM CDT Allied Health/Nurse Visit [facility] Urology [address] [address] Lucero Britt PA-C 500 [place], [place] [phone] 11/16/2024 2:45 PM CDT Office Visit [facility] Urology [address] [phone] Vivien Blanchard MD 420 [facility] [address] [place], [place] [phone] 11/20/2024 3:30 PM CDT Office Visit [address] [address] [place] [address] [place] [address] 11/22/2024 9:15 AM CDT Office Visit [facility] Heart [facility] [address] [facility] [address] [place] [phone] Federico Linda MD 6[address] [facility] [address] [place] [address] 11/30/2024 10:30 AM CDT Lab [facility] [address] [place] [phone] 12/06/2024 10:10 AM CDT Office Visit [facility] 6525 [facility] 200 [place] [phone] Virgie Lobato, PA-C [address] [place] [address] 12/28/2024 11:00 AM CDT Office Visit [facility] 29[address] [facility] 200 [place] [phone] Barry Ybarra MD 2945 [facility] 200 [place] [address] 01/26/2025 11:30 AM CDT Office Visit [facility] [address] [place] [address] [place] [address] [place] [address] documented as of this encounter Goals Goal Patient Goal Type Associated Problems Recent Progress Patient-Stated? Author Problem Solving General On track( 019 9:24 AM CONE OPERATOR) Yes Sheryl Stringer, ELI Note: My Goal: [...] Out COVID-19 2021 2021 04/25/2021 12:41 PM CONE OPERATOR Rule Out COVID-19 06/14/2022 06/14/2022 06/14/2022 11:30 AM CONE OPERATOR Rule Out COVID-19 07/03/2022 07/03/2022 07/04/2022 12:27 AM CONE OPERATOR Rule Out COVID-19 04/01/2024 04/01/2024 04/01/2024 10:07 PM CDT ESBL 07/05/2024 08/24/2024 Rule Out COVID-19 07/16/2024 07/16/2024 07/16/2024 11:04 PM CONE OPERATOR Rule Out COVID-19 09/01/2024 09/01/2024 09/01/2024 2:05 AM CDT Rule Out COVID-19 09/21/2024 09/21/2024 09/21/2024 3:25 PM CDT Assessment Noted Time PHQ-9 Depression Total Score: 6 08/09/19 19 8:45 AM CONE OPERATOR documented as of this encounter Care Teams Poured Pipe Maker Relationship Specialty Start Date End Date Flynn Ruiz MD [facility] [address] [place] [address] [place] [address] PCP - General Family Practice 04/14/19 05/18/20 Trina Carbajal, PAAnthonyC [address] [facility] [address] [place] [address] PCP - General Family Medicine 05/19/20 04/10/24 [place] [address] [place] [address] PCP - General Family Medicine 04/11/[address] [place] [address] [employer] Installer Dietitian, Registered 11/03/17 Flynn Ruiz MD [address] [facility] [place] [address] Assigned PCP 05/28/19 07/22/19 Mari Funes, JERRY Personal Advocate & Liaison (PAL) 07/27/19 07/30/19 Ruth Ann Munoz MD [place] [address] [facility] [address] [place] [address] Assigned PCP 07/23/19 08/12/19 Trina Carbajal, PA-C [address] [facility] [address] [place] [address] Assigned PCP 08/13/19 07/27/20 Federico Linda MD 6405 [facility] [address] [place] [address] Assigned Heart and Vascular Provider 03/29/20 Connie Blackwell MD [address] [place] [address] Assigned Endocrinology Provider 07/14/20 12/19/20 Ruth Ann Munoz MD [place] 7447 [facility] [address] [place] [address] Assigned PCP 07/28/20 08/25/20 Carlos Livingston MD NO INFO AVAILABLE Assigned PCP 08/26/20 08/31/20 Trina Carbajal PA-C [address] [place] [address] Assigned PCP 09/01/20 12/07/20 Carlos Livingston MD NO INFO AVAILABLE Assigned Endocrinology Provider 12/20/20 12/18/22 Carlos Livingston MD NO INFO AVAILABLE Assigned PCP 12/08/20 12/19/20 Trina Carbajal, GIUSEPPEC [address] [place] [address] Assigned PCP 12/20/20 04/28/24 Mari Funes, JERRY Personal Advocate & Liaison (PAL) Nurse 01/24/21 06/12/21 Jc Zavala MD [facility] [place] [address] [place] [address] Hematology & Oncology 08/07/21 Barbi Manzo, JERRY Personal Advocate & Liaison (PAL) Family Medicine 12/24/21 07/08/23 [place] [address] [facility] 300 [place] [address] Assigned Musculoskeletal Provider 04/04/22 08/19/23 Cristofer Michelle MD [address] [place] [address] [address] [place], [place] [address] Gastroenterology 07/28/22 Vivien Blanchard MD 420 [facility] 394 [place], [place] 27[address] Urology 07/28/22 Sapna Hernandez MD [address] [phone] Assigned Nephrology Provider 07/11/22 09/25/22 Vivien Blanchard MD [address] [place] [address] [id number] Assigned Surgical Provider 07/25/22 06/30/23 Virgie Lobato PA-C [address] [place] [address] 609545 Assigned Nephrology Provider 09/26/22 03/28/24 Teetee Velazquez PA-C [address] [place] [address] 150255 Physician Library Circulation Assistant 05/11/23 Teetee Velazquez PA-C [address] [place] [address] 323765 Assigned Surgical Provider 07/01/23 Cora Shah, JERRY Personal Advocate & Liaison (PAL) Nurse 07/09/23 09/29/23 [place] [address] [address], [address] [place] [address] Assigned Musculoskeletal Provider 08/20/23 Cristal Cooper, RN Lead Fishing Rod Trimmer Primary Care - CC 04/27/2404/08 Shannon Rowland PA-C [address] [place] [phone] Assigned PCP 04/29/24 05/28/24 Lanie Foster, RD, LD [address] [place] [id number] Registered Dietitian Nutrition 05/15/24 [place] [address] [place] [address] Assigned PCP 05/29/24 Melonie Caro RPH [address] [place] [address] Pharmacist Pharmacist 06/05/24 Federico Linda MD [address] [facility] [address] [place] [id number] Cardiovascular Disease 06/13/24 Melonie Caro RPH [address] [place] [address] Assigned MTM Pharmacist 06/29/24 Virgie Lobato PA-C 909 [place], [place] [address] Assigned Nephrology Provider 07/30/24 Barry Ybarra MD [address] [place] [address] Hospitalist Infectious Diseases 08/31/24 Barry Ybarra MD [address] [place] [address] Assigned Infectious Disease Provider 10/27/24 documented as of this encounter
--- OUTSIDE RECORDS SUMMARY | 2024-11-12 17:22 | XMS_ITS | Encounter Summary ---
Author Organization [place] Address [address] [place] [address] Care Team Providers Care Neck Skewer Name Role Phone Sheryl Stringer Kirk BENITEZ Unavailable [phone] Federico Linda MD Unavailable [phone] Trina Carbajal-C Primary Care Provider [phone] Trina Carbajal-C Unavailable [phone] Jc Zavala MD Unavailable [phone] Cristofer Michelle MD Unavailable [phone] Vivien Blanchard MD Unavailable [phone] Virgie Lobato-C Unavailable [phone] Teetee Velazquez-C Unavailable [phone] Teetee Velazquez-C Unavailable [phone] Brad Mayer DO Unavailable [phone] Mary Garcia MD Primary Care Provider Cristal Cooper RN Unavailable Shannon Rowland PA-C Unavailable [phone], LD Unavailabl e Mary Garcia MD Unavailable Melonie Caro [facility] Unavailable [phone] Federico Linda MD Unavailable [phone] Melonie Caro [facility] Unavailable [phone] Virgie Lobato PA-C Unavailable [phone] Barry Ybarra MD Unavailable [phone] Barry Ybarra MD Unavailable [phone] Encounter Details Date Type Department Care Team (Late st Contact Info) Description 11/27/2023 [facility] Medical Advice [facility] Heart [facility] [address] [place] [address] [address] [place] [address] Federico Linda MD 49[address] [facility] [address] [place] [address] Social History Tobacco Use Types Packs/Day Years Used Date Smoking Tobacco: Never Passive Smoke Exposure: Never Smokeless Tobacco: Never Alcohol Use Standard Drinks/Week Comments No 0 (1 standard drink = 0.6 oz pur e alcohol) PHQ-2 Answer Date Recorded PHQ-2 Score 1 10/20/2023 Exercise Vital Sign Answer Date Recorde d [...] you got money to buy more? No 05/11/2023 Within the past 12 months, d id the food you bought just not last and you didn t have money to get more? No 05/11/2023 Housing Stability Answer Date Recorded Do you have housing? (Jadon jerez is defined as stable permanent housing and does not include staying outside in a car, in a tent, in an abandoned building, in an overnight chcf, or couch-surfing.) Yes 05/11/2023 Are you worried about losing your housing? No 05/11/2023 Financial Resource Strain Answer Date R ecorded Within the past 12 months, h ave you or your family members you live with been unable to get utilities (heat, electricity) when it was really needed? No 05/11/2023 Transportation Needs Answer Date Record ed Within the past 12 months, h as lack of transportation kept you from medical appointments, getting your medicines, non-medical meetings or appointments, work, or from getting things that you need? No 05/11/2023 Interpersonal Safety Answer Date Record ed Do you feel physically and e motionally safe where you currently live? Yes 09/20/2023 Within the past 12 months, h ave you been hit, slapped, kicked or otherwise physically hurt by someone? No 09/20/2023 Within the past 12 months, h ave you been humiliated or emotionally abused in other ways by your partner or ex-partner? 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 Mychart message received: Bailey Lehman [facility] Heart Team 4 (supporting Federico Linda MD)2 days ago When I was in last you increased the amlodipine to 10 mg daily. Also yo prescribed carvedilol. I seem to have swelling. I notice it in my hands feet. Should the medication stay or change. Thank you Last OV 10/27/[address] Linda Hypertension, suboptimal control Trial of increasing her amlodipine from 5 mg to 10 mg daily, watch for lower extremity edema or constipation. Trial of changing her metoprolol to tartrate to carvedilol 6.25 mg twice daily. If good blood pressure control, may discontinue the Imdur to help with headaches. If headaches improve with blood pressure control without discontinuing the Imdur, we may be able to increase it to 30mg daily. Will route to Dr. Linda to review. documented in this encounter Plan of Treatment Upcoming Encounters Date Type Department Care Team (Late st Contact Info) Description 11/16/2024 1:00 PM CDT Allied Health/Nurse Visit [facility] Urology [address] [phone] Lucero Britt PA-C 500 [place], [place] [address] 11/16/2024 2:45 PM CDT Office Visit [facility] Urology [address] [phone] Vivien Blanchard MD 420 [facility] 394 [place], [place] [address] 11/20/2024 3:30 PM CDT Office Visit [facility] [address] [place] [phone] [place] [address] [place] [address] 11/22/2024 9:15 AM CDT Office Visit [facility] Heart [facility] [address] [facility] [address] [place] [phone] Federico Linda MD [address] [facility] [address] [place] [address] 11/30/2024 10:30 AM CDT Lab [facility] Laboratory [address] [place] [address] 12/06/2024 10:10 AM CDT Office Visit [facility] 6525 [facility] 200 [place] [phone] Virgie Lobato PANilesh [address] [place] [address] 12/28/2024 11:00 AM CDT Office Visit [facility] [address] [phone] Barry Ybarra MD [address] [address] 01/26/2025 11:30 AM CDT Office Visit [facility] [address] [place] [phone] [place] [address] [place] [address] documented as of this encounter Goals Goal Patient Goal Type Associated Problems Recent Progress Patient-Stated? Author Problem Solving General On track( 019 9:24 AM PROBATE JUDGE) Yes Sheryl Stringer, ELI Note: My Goal: [...] Last Indicated Resolved Time Rule Out COVID-19 04/01/2024 04/01/2024 04/01/2024 10:07 PM CDT ESBL 07/05/2024 08/24/2024 Rule Out COVID-19 07/16/2024 07/16/2024 07/16/2024 11:04 PM PROBATE JUDGE Rule Out COVID-19 09/01/2024 09/01/2024 09/01/2024 2:05 AM CDT Rule Out COVID-19 09/21/2024 09/21/2024 09/21/2024 3:25 PM CDT Assessment Noted Time PHQ-9 Depression Total Score: 6 10/20/19 2:31 PM CDT documented as of this encounter Care Teams Neck Skewer Relationship Specialty Start Date End Date Trina Carbajal PA-C [address] [place] [address] PCP - General Family Medicine 05/19/20 04/10/24 [place] [address] [place] [address] PCP - General Family Medicine 04/11/[address] [place] [address] Electrical Controls Technician Dietitian, Registered 11/03/17 Federico Linda MD [address] [place] [address] Assigned Heart and Vascular Provider 03/29/20 Trina Carbajal PA-C [address] [place] [address] Assigned PCP 12/20/20 04/28/24 Jc Zavala MD [facility] [address] [place] [address] Hematology & Oncology 08/07/21 Cristofer Michelle MD 6 [facility] [address] [place] [address] Gastroenterology 07/28/22 Vivien Blanchard MD [address] [place] [address] [facility] [address] [place], [place] [address] Urology 07/28/22 Virgie Lobato PA-C [address] [place] [address] 267005 Assigned Nephrology Provider 09/26/22 03/28/24 Teetee Velazquez PA-C [address] [place] [address] [phone] Physician Building Construction Superintendent 05/11/23 Teetee Velazquez PA-C [address] [place] [address] 318025 Assigned Surgical Provider 07/01/23 [place] [address] [address] Assigned Musculoskeletal Provider 08/20/23 Cristal Cooper, RN Lead Lens Silverer Primary Care - CC 04/27/2404/08 Shannon Rolwand PA-C [address] [place] [address] Assigned PCP 04/29/24 05/28/24 Lanie Foster, RD, LD [address] [place] [address] Registered Dietitian Nutrition 05/15/24 [place] [address] [place] [address] Assigned PCP 05/29/24 Melonie Caro [facility] [address] [place] [address] Pharmacist Pharmacist 06/05/24 Federico Linda MD [address] [place] [address] Cardiovascular Disease 06/13/24 Melonie Caro [facility] [address] [place] [address] Assigned MTM Pharmacist 06/29/24 Virgie Lobato, PAAnthonyC [address] [place] [address] Assigned Nephrology Provider 07/30/24 Barry Ybarra MD [address] [place] [address] Hospitalist Infectious Diseases 08/31/24 Barry Ybarra MD [address] [place] [address] Assigned Infectious Disease Provider 10/27/24 documented as of this encounter
--- OUTSIDE RECORDS SUMMARY | 2024-11-12 17:22 | XMS_ITS | Encounter Summary ---
Author Organization [facility] Address [address] [place] [address] Care Team Providers Care Java Lead Architect Name Role Phone Sheryl Stringer ELI Unavailable [phone] Flynn Ruiz MD Primary Care Provider Trina Carbajal PA-C Unavailable [phone] Federico Linda MD Unavailable Trina Carbajal PA-C Primary Care Provider [phone] Connie Blackwell MD Unavailable [phone] Ruth Ann Munoz MD Unavailable + Carlos Livingston MD Unavailable Jelena ericailable Trina Carbajal PA-C Unavailable [phone] Carlos Livingston MD Unavailable Jelena ericailable Carlos Livingston MD Unavailable Jelena Trina Marcum PA-C Unavailable [phone] Mari Funes RN Unavailable Unavailable Jc Zavala MD Unavailable [phone] aBrbi Manzo RN Unavailable Unavailable Erasto Root MD Unavailable Cristofer Michelle MD Unavailable [phone] Vivien Blanchard MD Unavailable + [phone] Sapna Hernandez MD Unavailable Vivien Blanchard MD Unavailable [phone] Virgie Lobato-C Unavailable [phone] Teetee Velazquez PA-C Unavailable +[phone] Teetee Velazquez PA-C Unavailable [phone] Cora Shah RN Unavailable Brad Mayer DO Unavailable [phone] Mary Garcia MD Primary Care Provider Cristal Cooper RN Unavailable Shannon Rowland PA-C Unavailable [phone], LD Unavailabl e Mary Garcia MD Unavailable Melonie Caro [facility] Unavailable [phone] Federico Linda MD Unavailable [phone] Melonie Caro [facility] Unavailable Virgie viramontes-C Unavailable [phone] Barry Ybarra MD Unavailable +[phone] Barry Ybarra MD Unavailable [phone] Encounter Details Date Type Department Care Team (Late st Contact Info) Description 09/28/2019 [facility] [address] [address] Rahel Chinchilla CMA Social History Tobacco Use Types Packs/Day Years Used Date Smoking Tobacco: Never Smokeless Tobacco: Never Alcohol Use Standard Drinks/Week Comments No 0 (1 standard drink = 0.6 oz pur e alcohol) PHQ-2 Answer Date Recorded PHQ-2 Score 0 07/27/2019 Comments No Sex and Gender Information Value Date Recorded Sex Assigned at Female 07/18/2020 1:16 PM ORACLE ADF CONSULTANT Legal Sex Female 3:23 AM ORACLE ADF CONSULTANT Gender Identity Female 07/18/2020 1:16 PM ORACLE ADF CONSULTANT Sexual Orientation Straight 07/18/2020 1: 16 PM ORACLE ADF CONSULTANT 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 Not on file Not on file documented as of this encounter Plan of Treatment Upcoming Encounters Date Type Department Care Team (Late st Contact Info) Description 11/16/2024 1:00 PM CDT Allied Health/Nurse Visit [facility] Urology [address] [phone] Lucero Britt PA-C 500 [place], [place] [address] 11/16/2024 2:45 PM CDT Office Visit [facility] Urology [address] [phone] Vivien Blanchard MD 420 [facility] 394 [place], [place] [address] 11/20/2024 3:30 PM CDT Office Visit [address] [phone] [place] [address] [place] [address] 11/22/2024 9:15 AM CDT Office Visit [facility] Heart [facility] [address] [facility] [address] [place] [address] Federico Linda MD [address] [facility] [address] [place] [address] 11/30/2024 10:30 AM CDT Lab [facility] [address] [place] [phone] 12/06/2024 10:10 AM CDT Office Visit [facility] 6525 [facility] 200 [place] [phone] Virgie Lobato, PANilesh 909 [place] [address] 12/28/2024 11:00 AM CDT Office Visit [facility] [address] [phone] [place] [address] [place] [address] 01/26/2025 11:30 AM CDT Office Visit [facility] [phone] [place] [phone] [place] [address] [place] [address] documented as of this encounter Goals Goal Patient Goal Type Associated Problems Recent Progress Patient-Stated? Author Problem Solving General On track( 019 9:24 AM ORACLE ADF CONSULTANT) Yes Sheryl Stringer, ELI Note: My Goal: [...] AM CDT Rule Out C-difficile 03/10/2021 03/10/2021 5:50 PM CDT Rule Out COVID-19 2021 2021 04/25/2021 12:41 PM ORACLE ADF CONSULTANT Rule Out COVID-19 06/14/2022 06/14/2022 06/14/2022 11:30 AM ORACLE ADF CONSULTANT Rule Out COVID-19 07/03/2022 07/03/2022 07/04/2022 12:27 AM ORACLE ADF CONSULTANT Rule Out COVID-19 04/01/2024 04/01/2024 04/01/2024 10:07 PM CDT ESBL 07/05/2024 08/24/2024 Rule Out COVID-19 07/16/2024 07/16/2024 07/16/2024 11:04 PM ORACLE ADF CONSULTANT Rule Out COVID-19 09/01/2024 09/01/2024 09/01/2024 2:05 AM CDT Rule Out COVID-19 09/21/2024 09/21/2024 09/21/2024 3:25 PM CDT Assessment Noted Time PHQ-9 Depression Total Score: 6 07/28/19 7:04 AM ORACLE ADF CONSULTANT documented as of this encounter Care Teams Java Lead Architect Relationship Specialty Start Date End Date Flynn Ruiz MD [address] [place] [address] PCP - General Family Practice 04/14/19 05/18/20 Trina Carbajal, PA-C [address] [facility] [address] [place] [address] PCP - General Family Medicine 05/19/20 04/10/24 [place] [address] [address] [address] PCP - General Family Medicine 04/11/[address] [place] [address] Supply Chain Associate Dietitian, Registered 11/03/17 Trina Carbajal PA-C [address] [place] [address] Assigned PCP 08/13/19 07/27/20 Federico Linda MD [address] [place] [address] Assigned Heart and Vascular Provider 03/29/20 Connie Blackwell MD [address] [place] [address] Assigned Endocrinology Provider 07/14/20 12/19/20 Ruth Ann Munoz MD [place] [address] [place] [address] Assigned PCP 07/28/20 08/25/20 Carlos Livingston MD NO INFO AVAILABLE Assigned PCP 08/26/20 08/31/20 Trina Carbajal PA-C [address] [place] [address] Assigned PCP 09/01/20 12/07/20 Carlos Livingston MD NO INFO AVAILABLE Assigned Endocrinology Provider 12/20/20 12/18/22 Carlos Livingston MD NO INFO AVAILABLE Assigned PCP 12/08/20 12/19/20 Trina Carbajal PA-C [address] [facility] [address] [place] [address] Assigned PCP 12/20/20 04/28/24 Mari Funes, RN Personal Advocate & Liaison (PAL) Nurse 01/24/21 06/12/21 Jc Zavala MD [facility] [address] [place] [address] Hematology & Oncology 08/07/21 Barbi Manzo, JERRY Personal Advocate & Liaison (PAL) Family Medicine 12/24/21 07/08/23 [place] [address] [place] [address] Assigned Musculoskeletal Provider 04/04/22 08/19/23 Cristofer Michelle MD [address] [place] [place], [place] [address]B [address] [place], [place] [address] Gastroenterology 07/28/22 Vivien Blanchard MD [address] [place] [address] [phone] Urology 07/28/22 Sapna Hernandez MD [address] [place] [address] Assigned Nephrology Provider 07/11/22 09/25/22 Vivien Blanchard MD [address] [place] [address] Assigned Surgical Provider 07/25/22 06/30/23 LhVirgie viramontes PA-C [address] [place] [address] Assigned Nephrology Provider 09/26/22 03/28/24 Teetee Velazquez PA-C [address] [place] [address] [phone] Physician Fire Extinguisher Charger 05/11/23 Teetee Velazquez PA-C [address] [place] [address] Assigned Surgical Provider 07/01/23 Cora Shah, JERRY Personal Advocate & Liaison (PAL) Nurse 07/09/23 09/29/23 [place] [address] [address] Assigned Musculoskeletal Provider 08/20/23 Cristal Cooper RN Lead Plan Consultant Primary Care - CC 04/27/2404/08 Shannon Rowland PA-C [address] [place] [phone] Assigned PCP 04/29/24 05/28/24 Lanie Foster, RD, LD [address] [place] [address] Registered Dietitian Nutrition 05/15/24 [place] [address] [place], [place] [address] Assigned PCP 05/29/24 Melonie Caro [facility] [address] [place] [address] Pharmacist Pharmacist 06/05/24 Federico Linda MD [address] [place], [place] 6[address] Cardiovascular Disease 06/13/24 Melonie Caro [facility] [address] [place] [address] Assigned MTM Pharmacist 06/29/24 Virgie Lobato, PAAnthonyC [address] [place] [address] [phone] Assigned Nephrology Provider 07/30/24 Barry Ybarra MD [address] [place] [address] Hospitalist Infectious Diseases 08/31/24 Barry Ybarra MD [address] [place] [address] Assigned Infectious Disease Provider 10/27/24 documented as of this encounter
--- OUTSIDE RECORDS SUMMARY | 2024-11-12 17:22 | XMS_ITS | Encounter Summary ---
Author Organization [facility] Address [address] [place] [address] Care Team Providers Care Insurance Claims Adjuster Name Role Phone Sheryl Stringer ELI Unavailable [phone] Flynn Ruiz MD Primary Care Provider Trina Carbajal PA-C Unavailable [phone] Federico Linda MD Unavailable Trina Carbajal PA-C Primary Care Provider [phone] Connie Blackwell MD Unavailable [phone] Ruth Ann Munoz MD Unavailable + Carlos Livingston MD Unavailable Jelena ericailable Trina Carbajal PA-C Unavailable [phone] Carlos Livingston MD Unavailable Jelena ericailable Carlos Livingston MD Unavailable Jelena Trina Marcum PA-C Unavailable [phone] Mari Funes RN Unavailable Unavailable Jc Zavala MD Unavailable [phone] Barbi Manzo RN Unavailable Unavailable Erasto Root MD Unavailable Cristofer Michelle MD Unavailable [phone] Vivien Blanchard MD Unavailable [phone] Sapna Hernandez MD Unavailable Vivien Blanchard MD Unavailable [phone] Virgie Lobato-C Unavailable [phone] Teetee Velazquez PA-C Unavailable +[phone] Teetee Velazquez PA-C Unavailable +[phone] Cora Shah RN Unavailable Brad Mayer DO Unavailable [phone] Mary Garcia MD Primary Care Provider Cristal Cooper RN Unavailable Shannon Rowland PA-C Unavailable [phone], LD Unavailabl e Mary Garcia MD Unavailable Melonie Caro [facility] Unavailable [phone] Federico Linda MD Unavailable [phone] Melonie Caro [facility] Unavailable Virgie viramontes-C Unavailable [phone] Barry Ybarra MD Unavailable [phone] Barry Ybarra MD Unavailable [phone] Encounter Details Date Type Department Care Team (Late st Contact Info) Description 12/06/2019 [facility] [address] [address] Sheryl Stringer, ELI [facility] [place] [address] [place] [address] [place] [address] Type 2 diabetes mellitus with complication, with long-term current use of insulin (H) Social History Tobacco Use Types Packs/Day Years Used Date Smoking Tobacco: Never Smokeless Tobacco: Never Alcohol Use Standard Drinks/Week Comments No 0 (1 standard drink = 0.6 oz pur e alcohol) PHQ-2 Answer Date Recorded PHQ-2 Score 0 07/27/2019 Comments No Sex and Gender Information Value Date Recorded Sex Assigned at Female 07/18/2020 1:16 PM AVIONICS MANAGER Legal Sex Female 3:23 AM AVIONICS MANAGER Gender Identity Female 07/18/2020 1:16 PM AVIONICS MANAGER Sexual Orientation Straight 07/18/2020 1: 16 PM AVIONICS MANAGER 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 Not on file documented as of this encounter Plan of Treatment Upcoming Encounters Date Type Department Care Team (Late st Contact Info) Description 11/16/2024 1:00 PM CDT Allied Health/Nurse Visit [facility] Urology [address] [phone] Lucero Britt PA-C 500 [place], [place] [address] 11/16/2024 2:45 PM CDT Office Visit [facility] Urology [address] [phone] Vivien Blanchard MD 420 [facility] 394 [place], [place] [address] 11/20/2024 3:30 PM CDT Office Visit [address] [phone] Mary Garcia MD [address] [place] [address] 11/22/2024 9:15 AM CDT Office Visit [facility] Heart [facility] [address] [facility] [address] [place] [phone] Federico Linda MD 6[address] [facility] [address] [place] [address] 11/30/2024 10:30 AM CDT Lab [facility] [address] [place] [phone] 12/06/2024 10:10 AM CDT Office Visit [facility] [place] 6525 [facility] 200 [place] [phone] Virgie Lobato, PA-C 909 [place] [address] 12/28/2024 11:00 AM CDT Office Visit [facility] 29[address] [facility] [address] [place] [address] Barry Ybarra MD 2945 [facility] 200 [place] [address] 01/26/2025 11:30 AM CDT Office Visit [facility] [address] [place] [address] [place] [address] [place] [address] documented as of this encounter Goals Goal Patient Goal Type Associated Problems Recent Progress Patient-Stated? Author Problem Solving General On track( 019 9:24 AM AVIONICS MANAGER) Yes Sheryl Stringer, ELI Note: My Goal: I will reduce risk of low blood sugars over-night What I need to meet my goal: follow instructions for taking Novolog before meals only I plan to meet my goal by this date: 1 week documented as of this encounter Visit Diagnoses Diagnosis Type 2 diabetes mellitus with complication, with long-term current use of insulin (H) documented in this encounter Additional Health Concerns Infection Onset Date Last Indicated Resolved Time Rule Out COVID-19 03/08/2021 03/08/2021 03/09/2021 1:42 AM CDT Rule Out C-difficile 03/10/2021 03/10/2021 021 5:50 PM CDT Rule Out COVID-19 2021 2021 04/25/2021 12:41 PM AVIONICS MANAGER Rule Out COVID-19 06/14/2022 06/14/2022 06/14/2022 11:30 AM AVIONICS MANAGER Rule Out COVID-19 07/03/2022 07/03/2022 07/04/2022 12:27 AM AVIONICS MANAGER Rule Out COVID-19 04/01/2024 04/01/2024 04/01/2024 10:07 PM CDT ESBL 07/05/2024 08/24/2024 Rule Out COVID-19 07/16/2024 07/16/2024 07/16/2024 11:04 PM AVIONICS MANAGER Rule Out COVID-19 09/01/2024 09/01/2024 09/01/2024 2:05 AM CDT Rule Out COVID-19 09/21/2024 09/21/2024 09/21/2024 3:25 PM CDT Assessment Noted Time PHQ-9 Depression Total Score: 6 07/28/19 20 7:04 AM AVIONICS MANAGER documented as of this encounter Care Teams Insurance Claims Adjuster Relationship Specialty Start Date End Date Flynn Ruiz MD [facility] [place] [address] [address] [place] [place] [address] PCP - General Family Practice 04/14/19 05/18/20 Trina Carbajal PA-C [address] [facility] [address] [place] [address] PCP - General Family Medicine 05/19/20 04/10/24 [place] [address] [place] [address] PCP - General Family Medicine 04/11/[address] [place] [address] Telesales Consultant Dietitian, Registered 11/03/17 Trina Carbajal PA-C [address] [place] [address] Assigned PCP 08/13/19 07/27/20 Federico Linda MD [address] [place] [address] Assigned Heart and Vascular Provider 03/29/20 Connie Blackwell MD [address] [place] [address] Assigned Endocrinology Provider 07/14/20 12/19/20 Ruth Ann Munoz MD [place] [address] [place] [address] Assigned PCP 07/28/20 08/25/20 Carlos Livingston MD NO INFO AVAILABLE Assigned PCP 08/26/20 08/31/20 Trina Carbajal PA-C [address] [place] [address] Assigned PCP 09/01/20 12/07/20 Carlos Livingston MD NO INFO AVAILABLE Assigned Endocrinology Provider 12/20/20 12/18/22 Carlos Livingston MD NO INFO AVAILABLE Assigned PCP 12/08/20 12/19/20 Trina Carbajal, PA-C [address] [facility] [address] [place] [address] Assigned PCP 12/20/20 04/28/24 Mari Funes, JERRY Personal Advocate & Liaison (PAL) Nurse 01/24/21 06/12/21 Jc Zavala MD [facility] [address] [facility] 100 [place], [place] [address] Hematology & Oncology 08/07/21 Barbi Manzo RN Personal Advocate & Liaison (PAL) Family Medicine 12/24/21 07/08/23 [place] [address] [place] [address] Assigned Musculoskeletal Provider 04/04/22 08/19/23 Cristofer Michelle MD [address] [place] [address] 1[address] [place], [place] [address] Gastroenterology 07/28/22 Vivien Blanchard MD [address] [place] [address] 394 [place], [place] 3679[address] Urology 07/28/22 Sapna Hernandez MD [address] 547635 Assigned Nephrology Provider 07/11/22 09/25/22 Vivien Blanchard MD [address] [place] [address] 394 [place], [place] 8864[address] Assigned Surgical Provider 07/25/22 06/30/23 Virgie Lobato PA-C [address] [place] [address] Assigned Nephrology Provider 09/26/22 03/28/24 Teetee Velazquez PA-C [address] [place] [address] Physician Information Technology Advisor 05/11/23 Teetee Velazquez PA-C [address] [place] [address] Assigned Surgical Provider 07/01/23 Cora Shah, JERRY Personal Advocate & Liaison (PAL) Nurse 07/09/23 09/29/23 [place] [address] [address] [address] Assigned Musculoskeletal Provider 08/20/23 Cristal Cooper, RN Lead Butcher Apprentice Primary Care - CC 04/27/2404/08 Shannon Rowland PA-C [address] [place] [phone] Assigned PCP 04/29/24 05/28/24 Lanie Foster, RD, LD [address] [id number] Registered Dietitian Nutrition 05/15/24 [place] [address] [place] [address] Assigned PCP 05/29/24 Melonie Caro [facility] [address] [place], [place] [address] Pharmacist Pharmacist 06/05/24 Federico Linda MD [address] [facility] [address] [place], [place] [address] Cardiovascular Disease 06/13/24 Melonie Caro [facility] [address] [place], [place] [address] Assigned MTM Pharmacist 06/29/24 Virgie Lobato, PAAnthonyC [address] [place] [address] [phone] Assigned Nephrology Provider 07/30/24 Barry Ybarra MD [address] [place] [address] Hospitalist Infectious Diseases 08/31/24 Barry Ybarra MD [address] [place] [address] Assigned Infectious Disease Provider 10/27/24 documented as of this encounter
--- OUTSIDE RECORDS SUMMARY | 2024-11-12 17:22 | XMS_ITS | Encounter Summary ---
Author Organization [facility] Address [address] [place] [address] Care Team Providers Care Hyperbaric Tech Name Role Phone Sheryl Stringer Kirk BENITEZ Unavailable [phone] Federico Linda MD Unavailable [phone] Trina Carbajal-C Primary Care Provider Carlos Livingston MD Unavailable Jelena vailable Trina CarbajalC Unavailable [phone] Jc Zavala MD Unavailable [phone] Barbi Manzo RN Unavailable Unavailable Erasto Root MD Unavailable Cristofer Michelle MD Unavailable [phone] Vivien Blanchard MD Unavailable [phone] Sapna Hernandez MD Unavailable Vivien Blanchard MD Unavailable [phone] Virgie Lobato-C Unavailable [phone] Teetee Velazquez-C Unavailable Teetee Velazquez-Javi Unavailable [phone] Cora Shah RN Unavailable Brad Mayer Unavailable [phone] Mary Garcia MD Primary Care Provider Cristal Cooper RN Unavailable Shannon Rowland PA-C Unavailable [phone], LD Unavailabl e Mary Garcia MD Unavailable Melonie Caro [facility] Unavailable Federico Linda MD Unavailable Melonie Caro [facility] Unavailable Virgie Lobato PA-C Unavailable Barry Ybarra MD Unavailable Barry Ybarra MD Unavailable Encounter Details Date Type Department Care Team (Late st Contact Info) Description 06/17/2021 [facility] [place] Medical Advice [address] [phone] Carlos Livingston MD NO INFO AVAILABLE Social History Tobacco Use Types Packs/Day Years Used Date Smoking Tobacco: Never Smokeless Tobacco: Never Alcohol Use Standard Drinks/Week Comments No 0 (1 standard drink = 0.6 oz pur e alcohol) PHQ-2 Answer Date Recorded PHQ-2 Score 1 04/08/2021 Comments No Sex and Gender Information Value Date Recorded Sex Assigned at Female 07/18/2020 1:16 PM LINE APPLIANCE ASSEMBLER Legal Sex Female 3:23 AM LINE APPLIANCE ASSEMBLER Gender Identity Female 07/18/2020 1:16 PM LINE APPLIANCE ASSEMBLER Sexual Orientation Straight 07/18/2020 1: 16 PM LINE APPLIANCE ASSEMBLER 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 No / Unsure 06/17/2021 5:12 PM LINE APPLIANCE ASSEMBLER documented as of this encounter Miscellaneous Notes * Telephone Encounter - Sheryl Stapleton RN - 06/18/2021 12:28 PM CST Endo ma have you seen these? I took the mail for today and hers are not in there. Sheryl Vincent RN Specialty Triage 06/18/2021 12:36 PM APPLIANCE ASSEMBLER documented in this encounter Plan of Treatment Upcoming Encounters Date Type Department Care Team (Late st Contact Info) Description 11/16/2024 1:00 PM CDT Allied Health/Nurse Visit [facility] Urology [address] [phone] Lucero Britt PA-C 500 [place], [place] [phone] 11/16/2024 2:45 PM CDT Office Visit [facility] Urology [address] [phone] Vivien Blanchard MD 420 [facility] 394 [place], [place] 1686[address] 11/20/2024 3:30 PM CDT Office Visit [facility] [address] [place] [phone] [place] [id number] [place] [address] 11/22/2024 9:15 AM CDT Office Visit [facility] Heart [facility] [address] [facility] [address] [place] [address] Federico Linda MD 6405 [facility] [address] [place] [address] 11/30/2024 10:30 AM CDT Lab [facility] [address] [place] [phone] 12/06/2024 10:10 AM CDT Office Visit [facility] 6525 [facility] 200 [place] [phone] Virgie Lobato, PA-C [address] [place] [address] 373225 12/28/2024 11:00 AM CDT Office Visit [facility] 2945 [facility] 200 [place] [phone] Barry Ybarra MD 2945 [facility] 200 [place] [address] 01/26/2025 11:30 AM CDT Office Visit [facility] [address] [place] [address] [place] [address] [place] [address] documented as of this encounter Goals Goal Patient Goal Type Associated Problems Recent Progress Patient-Stated? Author Problem Solving General On track( 019 9:24 AM LINE APPLIANCE ASSEMBLER) Yes Sheryl Stringer RD Note: My Goal: [...] Out COVID-19 06/14/2022 06/14/2022 06/14/2022 11:30 AM LINE APPLIANCE ASSEMBLER Rule Out COVID-19 07/03/2022 07/03/2022 07/04/2022 12:27 AM LINE APPLIANCE ASSEMBLER Rule Out COVID-19 04/01/2024 04/01/2024 04/01/2024 10:07 PM CDT ESBL 07/05/2024 08/24/2024 Rule Out COVID-19 07/16/2024 07/16/2024 07/16/2024 11:04 PM LINE APPLIANCE ASSEMBLER Rule Out COVID-19 09/01/2024 09/01/2024 09/01/2024 2:05 AM CDT Rule Out COVID-19 09/21/2024 09/21/2024 09/21/2024 3:25 PM CDT Assessment Noted Time PHQ-9 Depression Total Score: 2 03/19/20 21 7:02 AM CDT documented as of this encounter Care Teams Hyperbaric Tech Relationship Specialty Start Date End Date Trina Carbajal PA-C [address] [place] [address] PCP - General Family Medicine 05/19/20 04/10/24 [place] [address] [place] [address] PCP - General Family Medicine 04/11/[address] [facility] [address] [place] [address] [place] [address] Car Cleaner Dietitian, Registered 11/03/17 Federico Linda MD [address] [place] [address] Assigned Heart and Vascular Provider 03/29/20 Carlos Livingston MD NO INFO AVAILABLE Assigned Endocrinology Provider 12/20/20 12/18/22 Trina Carbajal, PA-C [address] [place] [address]75 Assigned PCP 12/20/20 04/28/24 Jc Zavala MD [facility] [address] [place], [place] [address] Hematology & Oncology 08/07/21 Barbi Manzo, JERRY Personal Advocate & Liaison (PAL) Family Medicine 12/24/21 07/08/23 [place] [address] [place] [address] Assigned Musculoskeletal Provider 04/04/22 08/19/23 Cristofer Michelle MD [address] [place] [address] [address] [place], [place] 785665 Gastroenterology 07/28/22 Vivien Blanchard MD [address] [place] [address] 410135 Urology 07/28/22 Sapna Hernandez MD [address] [place] [address] 727585 Assigned Nephrology Provider 07/11/22 09/25/22 Vivien Blanchard MD [address] [place] [address] 756555 Assigned Surgical Provider 07/25/22 06/30/23 Virgie Lobato PA-C [address] [place] [address] Assigned Nephrology Provider 09/26/22 03/28/24 Teetee Velazquez PA-C [address] [place] [address] 596585 Physician Client Care Coordinator 05/11/23 Teetee Velazquez PA-C [address] [place] [address] Assigned Surgical Provider 07/01/23 Cora Shah, JERRY Personal Advocate & Liaison (PAL) Nurse 07/09/23 09/29/23 [place] [address] 307487 Assigned Musculoskeletal Provider 08/20/23 Cristal Cooper, RN Lead Bridge Opener Primary Care - CC 04/27/2404/08 Shannon Rowland PA-C [address] [place] [address] Assigned PCP 04/29/24 05/28/24 Lanie Foster, RD, LD [address] [place] [address] Registered Dietitian Nutrition 05/15/24 [place] [address] [place] [address] Assigned PCP 05/29/24 Melonie Caro [facility] [address] [place] [address] Pharmacist Pharmacist 06/05/24 Federico Linda MD 6405 [facility] [address] [place], [place] 425475 Cardiovascular Disease 06/13/24 Melonie Caro RP [address] [place] [address] Assigned MTM Pharmacist 06/29/24 Virgie Lobato, PAAnthonyC [address] [place] [address] 933755 Assigned Nephrology Provider 07/30/24 Barry Ybarra MD [address] [place] [address] Hospitalist Infectious Diseases 08/31/24 Barry Ybarra MD [address] [place] [address] Assigned Infectious Disease Provider 10/27/24 documented as of this encounter
--- OUTSIDE RECORDS SUMMARY | 2024-11-12 17:22 | XMS_ITS | Encounter Summary ---
Author Organization [facility] Address [address] [place] [address] Care Team Providers Care Teenage Babysitter Name Role Phone Sheryl Stringer ELI Unavailable [phone] Flynn Ruiz MD Primary Care Provider Trina Carbajal PA-C Unavailable [phone] Federico Linda MD Unavailable Trina Carbajal PA-C Primary Care Provider [phone] Connie Blackwell MD Unavailable [phone] Ruth Ann Munoz MD Unavailable + Carlos Livingston MD Unavailable Jelena ericailable Trina Carbajal PA-C Unavailable [phone] Carlos Livingston MD Unavailable Jelena ericailable Carlos Livingston MD Unavailable Jelena Trina Marcum PA-C Unavailable [phone] Mari Funes RN Unavailable Unavailable Jc Zavala MD Unavailable [phone] Barbi Manzo RN Unavailable Unavailable Erasto Root MD Unavailable Cristofer Michelle MD Unavailable [phone] Vivien Blanchard MD Unavailable [phone] Sapna Hernandez MD Unavailable Vivien Blanchard MD Unavailable [phone] Virgie Lobato-C Unavailable [phone] Teetee Velazquez PA-C Unavailable [phone] Teetee Velazquez PA-C Unavailable [phone] Cora Shah RN Unavailable Brad Mayer DO Unavailable [phone] Mary Garcia MD Primary Care Provider Cristal Cooper RN Unavailable Shannon Rowland PA-C Unavailable [phone], LD Unavailabl e Mary Garcia MD Unavailable Melonie Caro [facility] Unavailable [phone] Federico Linda MD Unavailable [phone] Melonie Caro [facility] Unavailable Virgie viramontes-C Unavailable [phone] Barry Ybarra MD Unavailable [phone] Barry Ybarra MD Unavailable [phone] Encounter Details Date Type Department Care Team (Late st Contact Info) Description 12/06/2019 [facility] [address] [address] Sheryl Stringer, ELI [facility] [address] [place] [address] [place], [place] [phone] Social History Tobacco Use Types Packs/Day Years Used Date Smoking Tobacco: Never Smokeless Tobacco: Never Alcohol Use Standard Drinks/Week Comments No 0 (1 standard drink = 0.6 oz pur e alcohol) PHQ-2 Answer Date Recorded PHQ-2 Score 0 07/27/2019 Comments No Sex and Gender Information Value Date Recorded Sex Assigned at Female 07/18/2020 1:16 PM SUPPLY CHAIN PROCUREMENT MANAGER Legal Sex Female 3:23 AM SUPPLY CHAIN PROCUREMENT MANAGER Gender Identity Female 07/18/2020 1:16 PM SUPPLY CHAIN PROCUREMENT MANAGER Sexual Orientation Straight 07/18/2020 1: 16 PM SUPPLY CHAIN PROCUREMENT MANAGER 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 Not on file Not on file documented as of this encounter Plan of Treatment Upcoming Encounters Date Type Department Care Team (Late st Contact Info) Description 11/16/2024 1:00 PM CDT Allied Health/Nurse Visit [facility] Urology [address] [phone] Lucero Britt PA-C 500 [place], [place] 3848[address] 11/16/2024 2:45 PM CDT Office Visit [facility] Urology [address] [phone] Vivien Blanchard MD 420 [facility] 394 [place], [place] 6[address] 11/20/2024 3:30 PM CDT Office Visit [facility] [address] [place] [address] [place] [phone] [place] [address] 11/22/2024 9:15 AM CDT Office Visit [facility] Heart [facility] [address] [facility] 140 [place] [phone] Federico Linda MD 6405 [facility] [address] [place] [address] 11/30/2024 10:30 AM CDT Lab [facility] [address] [place] [phone] 12/06/2024 10:10 AM CDT Office Visit [facility] 6525 [facility] 200 [place] [phone] Virgie Lobato, PA-C [address] [place] [address] 183565 12/28/2024 11:00 AM CDT Office Visit [facility] 2945 [facility] 200 [place] [phone] Barry Ybarra MD 2945 [facility] 200 [place] [address] 01/26/2025 11:30 AM CDT Office Visit [facility] [address] [place] [address] [place] [address] [place] [address] documented as of this encounter Goals Goal Patient Goal Type Associated Problems Recent Progress Patient-Stated? Author Problem Solving General On track( 019 9:24 AM SUPPLY CHAIN PROCUREMENT MANAGER) Yes Sheryl Stringer RD Note: My [...] Out COVID-19 2021 2021 04/25/2021 12:41 PM SUPPLY CHAIN PROCUREMENT MANAGER Rule Out COVID-19 06/14/2022 06/14/2022 06/14/2022 11:30 AM SUPPLY CHAIN PROCUREMENT MANAGER Rule Out COVID-19 07/03/2022 07/03/2022 07/04/2022 12:27 AM SUPPLY CHAIN PROCUREMENT MANAGER Rule Out COVID-19 04/01/2024 04/01/2024 04/01/2024 10:07 PM CDT ESBL 07/05/2024 08/24/2024 Rule Out COVID-19 07/16/2024 07/16/2024 07/16/2024 11:04 PM SUPPLY CHAIN PROCUREMENT MANAGER Rule Out COVID-19 09/01/2024 09/01/2024 09/01/2024 2:05 AM CDT Rule Out COVID-19 09/21/2024 09/21/2024 09/21/2024 3:25 PM CDT Assessment Noted Time PHQ-9 Depression Total Score: 6 07/28/19 7:04 AM SUPPLY CHAIN PROCUREMENT MANAGER documented as of this encounter Care Teams Teenage Babysitter Relationship Specialty Start Date End Date Flynn Ruiz MD [address] [place] [id number] PCP - General Family Practice 04/14/19 05/18/20 Trina Carbajal PA-C [address] [place] [address] PCP - General Family Medicine 05/19/20 04/10/24 [place] [address] [place] [address] PCP - General Family Medicine 04/11/[address] [facility] - [address] [place] [address] Public Address Technician Dietitian, Registered 11/03/17 Trina Carbajal PA-C [address] [place] [address] Assigned PCP 08/13/19 07/27/20 Federico Linda MD [address] [place], [place] 0[address] Assigned Heart and Vascular Provider 03/29/20 Connie Blackwell MD [address] [place], [place] 3723[address] Assigned Endocrinology Provider 07/14/20 12/19/20 Ruth Ann Munoz MD AR[place] [address] [facility] [address] [place] [address] Assigned PCP 07/28/20 08/25/20 Carlos Livingston MD NO INFO AVAILABLE Assigned PCP 08/26/20 08/31/20 Trina Carbajal PA-C [address] [place] [address] Assigned PCP 09/01/20 12/07/20 Carlos Livingston MD NO INFO AVAILABLE Assigned Endocrinology Provider 12/20/20 12/18/22 Carlos Livingston MD NO INFO AVAILABLE Assigned PCP 12/08/20 12/19/20 Trina Carbajal PA-C [address] [place], [place] 0[address] Assigned PCP 12/20/20 04/28/24 Mari Funes, RN Personal Advocate & Liaison (PAL) Nurse 01/24/21 06/12/21 Jc Zavala MD [facility] [address] [place] [address] Hematology & Oncology 08/07/21 Barbi Manzo, JERRY Personal Advocate & Liaison (PAL) Family Medicine 12/24/21 07/08/23 [place] [address] [place] [address] Assigned Musculoskeletal Provider 04/04/22 08/19/23 Cristofer Michelle MD [address] [place] [address] Gastroenterology 07/28/22 Vivien Blanchard MD [address] [place] [address] 430005 Urology 07/28/22 Sapna Hernandez MD [address] [place] [address] Assigned Nephrology Provider 07/11/22 09/25/22 Vivien Blanchard MD [address] [place] [address] Assigned Surgical Provider 07/25/22 06/30/23 Virgie Lobato PA-C [address] [place] [address] Assigned Nephrology Provider 09/26/22 03/28/24 Teetee Velazquez PA-C [address] [place] [address] Physician Fruit Receiver 05/11/23 Teetee Velazquez PA-C [address] [place] [address] 702685 Assigned Surgical Provider 07/01/23 Cora Shah RN Personal Advocate & Liaison (PAL) Nurse 07/09/23 09/29/23 [place] [address] 509227 Assigned Musculoskeletal Provider 08/20/23 Cristal Cooper, JERRY Lead Ocean Export Agent Primary Care - CC 04/27/2404/08 Shannon Rowland PA-C [address] [place] [address]83 Assigned PCP 04/29/24 05/28/24 Lanie Foster, RD, LD [address] [place] [address] Registered Dietitian Nutrition 05/15/24 [place] [address] [place] [address] Assigned PCP 05/29/24 Melonie Caro RPH [address] [place] [address] Pharmacist Pharmacist 06/05/24 Federico Linda MD 6405 [facility] [address] [place], [place] 15280[address] Cardiovascular Disease 06/13/24 Melonie Caro RPH [address] [place] [address] Assigned MTM Pharmacist 06/29/24 Virgie Lobato, PA-C [address] [place] [address] Assigned Nephrology Provider 07/30/24 Barry Ybarra MD [address] [place] [address] Hospitalist Infectious Diseases 08/31/24 Barry Ybarra MD [address] [place] [address] Assigned Infectious Disease Provider 10/27/24 documented as of this encounter
--- OUTSIDE RECORDS SUMMARY | 2024-11-12 17:22 | XMS_ITS | Encounter Summary ---
Author Organization [place] Address [address] [place] [address] Care Team Providers Care Denture Technician Name Role Phone Sheryl Stringer ELI Unavailable [phone] Flynn Ruiz MD Primary Care Provider Trina Carbajal PA-C Unavailable [phone] Federico Linda MD Unavailable Trina Carbajal PA-C Primary Care Provider [phone] Connie Blackwell MD Unavailable [phone] Ruth Ann Munoz MD Unavailable + Carlos Livingston MD Unavailable Jelena ericailable Trina Carbajal PA-C Unavailable [phone] Carlos Livingston MD Unavailable Jelena ericailable Carlos Livingston MD Unavailable Jelena Trina Marcum PA-C Unavailable [phone] Mari Funes RN Unavailable Unavailable Jc Zavala MD Unavailable [phone] Barbi Manzo RN Unavailable Unavailable Erasto Root MD Unavailable Cristofer Michelle MD Unavailable [phone] Vivien Blanchard MD Unavailable + [phone] Sapna Hernandez MD Unavailable Vivien Blanchard MD Unavailable [phone] Virgie Lobato-C Unavailable +[phone] Teetee Velazquez PA-C Unavailable +[phone] Teetee Velazquez PA-C Unavailable +[phone] Cora Shah RN Unavailable Brad Mayer DO Unavailable [phone] Mary Garcia MD Primary Care Provider Cristal Cooper RN Unavailable Shannon Rowland PA-C Unavailable Lanie Foster RD, LD Unavailabl e Mary Garcia MD Unavailable Melonie Caro [facility] Unavailable [phone] Federico Linda MD Unavailable [phone] Melonie Caro [facility] Unavailable Virgie viramontes-C Unavailable +[phone] Barry Ybarra MD Unavailable [phone] Barry Ybarra MD Unavailable [phone] Encounter Details Date Type Department Care Team (Late st Contact Info) Description 12/06/2019 [facility] [address] [address] Sheryl Stringer, [facility] [address] [place] [address] [place], [place] [id number] Social History Tobacco Use Types Packs/Day Years Used Date Smoking Tobacco: Never Smokeless Tobacco: Never Alcohol Use Standard Drinks/Week Comments No 0 (1 standard drink = 0.6 oz pur e alcohol) PHQ-2 Answer Date Recorded PHQ-2 Score 0 07/27/2019 Comments No Sex and Gender Information Value Date Recorded Sex Assigned at Female 07/18/2020 1:16 PM DISTRIBUTION LEAD Legal Sex Female 3:23 AM DISTRIBUTION LEAD Gender Identity Female 07/18/2020 1:16 PM DISTRIBUTION LEAD Sexual Orientation Straight 07/18/2020 1: 16 PM DISTRIBUTION LEAD 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 file Not on file documented as of this encounter Plan of Treatment Upcoming Encounters Date Type Department Care Team (Late st Contact Info) Description 11/16/2024 1:00 PM CDT Allied Health/Nurse Visit [facility] [address] [phone] Lucero Britt PA-C 500 [place], [place] 6[address]75 11/16/2024 2:45 PM CDT Office Visit [facility] [address] [phone] Vivien Blanchard MD 420 [facility] 394 [place], [place] [address]355 11/20/2024 3:30 PM CDT Office Visit [facility] [address] [place] [address] [place] [phone] [place] [address] 11/22/2024 9:15 AM CDT Office Visit [facility] Heart [facility] [place] [address] [facility] 140 [place] [phone] Federico Linda MD 6405 [facility] [address] [place] [address] 11/30/2024 10:[address] [facility] [address] [place] [phone] 12/06/2024 10:10 AM CDT Office Visit [facility] 6525 [facility] 200 [place] [phone] Virgie Lobato, PA-C [address] [place] [address] 028745 12/28/2024 11:00 AM CDT Office Visit [facility] 2945 [facility] 200 [place] [phone] Barry Ybarra MD 2945 [facility] 200 [place] [address] 01/26/2025 11:30 AM CDT Office Visit [facility] [address] [place] [address] [place] [address] [place] [address] documented as of this encounter Goals Goal Patient Goal Type Associated Problems Recent Progress Patient-Stated? Author Problem Solving General On track( 019 9:24 AM DISTRIBUTION LEAD) Yes Sheryl Stringer RD Note: My Goal: [...] Out COVID-19 2021 2021 04/25/2021 12:41 PM DISTRIBUTION LEAD Rule Out COVID-19 06/14/2022 06/14/2022 06/14/2022 11:30 AM DISTRIBUTION LEAD Rule Out COVID-19 07/03/2022 07/03/2022 07/04/2022 12:27 AM DISTRIBUTION LEAD Rule Out COVID-19 04/01/2024 04/01/2024 04/01/2024 10:07 PM CDT ESBL 07/05/2024 08/24/2024 Rule Out COVID-19 07/16/2024 07/16/2024 07/16/2024 11:04 PM DISTRIBUTION LEAD Rule Out COVID-19 09/01/2024 09/01/2024 09/01/2024 2:05 AM CDT Rule Out COVID-19 09/21/2024 09/21/2024 09/21/2024 3:25 PM CDT Assessment Noted Time PHQ-9 Depression Total Score: 6 07/28/19 7:04 AM DISTRIBUTION LEAD documented as of this encounter Care Teams Denture Technician Relationship Specialty Start Date End Date lFynn Ruiz MD [address] [place] [phone] PCP - General Family Practice 04/14/19 05/18/20 Trina Carbajal PA-C [address] [place] [address] PCP - General Family Medicine 05/19/20 04/10/24 [place] [address] [place] [address] PCP - General Family Medicine 04/11/[address] [facility] [address] [place] [address] Tar And Ammonia Pump Operator Dietitian, Registered 11/03/17 Trina Carbajal PA-C [address] [place] [address] Assigned PCP 08/13/19 07/27/20 Federico Linda MD [address] [place], [place] 00[address] Assigned Heart and Vascular Provider 03/29/20 Connie Blackwell MD [address] [place], [place] 312600 Assigned Endocrinology Provider 07/14/20 12/19/20 Ruth Ann Munoz MD [place] 7447 [facility] ART 207 [place] [address] Assigned PCP 07/28/20 08/25/20 Carlos Livingston MD NO INFO AVAILABLE Assigned PCP 08/26/20 08/31/20 Trina Carbajal PA-C [address] [place] [address] Assigned PCP 09/01/20 12/07/20 Carlos Livingston MD NO INFO AVAILABLE Assigned Endocrinology Provider 12/20/20 12/18/22 Carlos Livingston MD NO INFO AVAILABLE Assigned PCP 12/08/20 12/19/20 Trina Carbajal PA-C [address] [place], [place] 23[address]95 Assigned PCP 12/20/20 04/28/24 Mari Funes, RN Personal Advocate & Liaison (PAL) Nurse 01/24/21 06/12/21 Jc Zavala MD [facility] [address] [place] [address] Hematology & Oncology 08/07/21 Barbi Manzo, JERRY Personal Advocate & Liaison (PAL) Family Medicine 12/24/21 07/08/23 [place] [address] [place] [address] Assigned Musculoskeletal Provider 04/04/22 08/19/23 Cristofer Michelle MD [address] [place] [address] Gastroenterology 07/28/22 Vivien Blanchard MD [address] [place] [address] [phone] Urology 07/28/22 Sapna Hernandez MD [address] [place] [address] Assigned Nephrology Provider 07/11/22 09/25/22 Vivien Blanchard MD [address] [place] [address] Assigned Surgical Provider 07/25/22 06/30/23 Virgie Lobato PA-C [address] [place] [address] Assigned Nephrology Provider 09/26/22 03/28/24 Teetee Velazquez PA-C [address] [place] [address] Physician Rate Engineer 05/11/23 Teetee Velazquez PA-C [address] [place] [address] [phone] Assigned Surgical Provider 07/01/23 Cora Shah RN Personal Advocate & Liaison (PAL) Nurse 07/09/23 09/29/23 [place] [address] 354927 Assigned Musculoskeletal Provider 08/20/23 Cristal Cooper, JERRY Lead Managed Care Analyst Primary Care - CC 04/27/2404/08 Shannon Rowland [place]-C [address] [place] [address] Assigned PCP 04/29/24 05/28/24 Lanie Foster, RD, LD [address] [place] [address] Registered Dietitian Nutrition 05/15/24 [place] [address] [place] [address] Assigned PCP 05/29/24 Melonie Caro RPH [address] [place] [address] Pharmacist Pharmacist 06/05/24 Federico Linda MD 6405 [facility] ART [address] [place], [place] 5064[address] Cardiovascular Disease 06/13/24 Melonie Caro RPH [address] [place] [address] Assigned MTM Pharmacist 06/29/24 Virgie Lobato, PA-C [address] [place] [address] Assigned Nephrology Provider 07/30/24 Barry Ybarra MD [address] [place] [address] Hospitalist Infectious Diseases 08/31/24 Barry Ybarra MD [address] [place] [address] Assigned Infectious Disease Provider 10/27/24 documented as of this encounter
--- OUTSIDE RECORDS SUMMARY | 2024-11-12 17:22 | XMS_ITS | Encounter Summary ---
Author Organization [facility] [place] Address [address] [place] [address] Care Team Providers Care Sap Administrator Name Role Phone Sheryl Stringer ELI Unavailable [phone] Flynn Ruiz MD Primary Care Provider Trina Carbajal PA-C Unavailable [phone] Federico Linda MD Unavailable Trina Carbajal PA-C Primary Care Provider [phone] Connie Blackwell MD Unavailable [phone] Ruth Ann Munoz MD Unavailable + Carlos Livingston MD Unavailable Jelena ericailable Trina Carbajal PA-C Unavailable [phone] Carlos Livingston MD Unavailable Jelena ericailable Carlos Livingston MD Unavailable Jelena Trina Marcum PA-C Unavailable [phone] Mari Funes RN Unavailable Unavailable Jc Zavala MD Unavailable [phone] Barbi Manzo RN Unavailable Unavailable Erasto Root MD Unavailable Cristofer Michelle MD Unavailable [phone] Vivien Blanchard MD Unavailable [phone] Sapna Hernandez MD Unavailable Vivien Blanchard MD Unavailable [phone] Virgie Lobato-C Unavailable [phone] Teetee Velazquez PA-C Unavailable +[phone] Teetee Velazquez PA-C Unavailable +[phone] Cora Shah RN Unavailable Brad Mayer DO Unavailable [phone] Mary Garcia MD Primary Care Provider Cristal Cooper RN Unavailable Shannon Rowland PA-C Unavailable [phone], LD Unavailabl e Mary Garcia MD Unavailable Melonie Caro [facility] Unavailable [phone] Federico Linda MD Unavailable [phone] Melonie Caro [facility] Unavailable Virgie viramontes-C Unavailable +[phone] Barry Yabrra MD Unavailable +[phone] Barry Ybarra MD Unavailable [phone] Encounter Details Date Type Department Care Team (Late st Contact Info) Description 12/06/2019 [facility] [address] [address] Sheryl Stringer, [facility] [address] [place] [address] [place], [place] [phone] Social History Tobacco Use Types Packs/Day Years Used Date Smoking Tobacco: Never Smokeless Tobacco: Never Alcohol Use Standard Drinks/Week Comments No 0 (1 standard drink = 0.6 oz pur e alcohol) PHQ-2 Answer Date Recorded PHQ-2 Score 0 07/27/2019 Comments No Sex and Gender Information Value Date Recorded Sex Assigned at Female 07/18/2020 1:16 PM TECHNOLOGY ARCHITECT Legal Sex Female 3:23 AM TECHNOLOGY ARCHITECT Gender Identity Female 07/18/2020 1:16 PM TECHNOLOGY ARCHITECT Sexual Orientation Straight 07/18/2020 1: 16 PM TECHNOLOGY ARCHITECT 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 Not on file documented as of this encounter Plan of Treatment Upcoming Encounters Date Type Department Care Team (Late st Contact Info) Description 11/16/2024 1:00 PM CDT Allied Health/Nurse Visit [facility] [address] [phone] Lucero Britt PA-C 500 [place], [place] 38[address] 11/16/2024 2:45 PM CDT Office Visit [facility] [address] [phone] Vivien Blanchard MD 420 [facility] 394 [place], [place] [address] 11/20/2024 3:30 PM CDT Office Visit [facility] [address] [place] [address] [place] [address] [place] [address] 11/22/2024 9:15 AM CDT Office Visit [facility] Heart [facility] [address] [facility] 140 [place] [phone] Federico Linda MD 6405 [facility] [address] [place] [address] 11/30/2024 10:30 AM CDT Lab [facility] [address] [place] [phone] 12/06/2024 10:10 AM CDT Office Visit [facility] [address] [facility] 200 [place] [phone] Virgie Lobato, PA-C [address] [place] [address] 358875 12/28/2024 11:00 AM CDT Office Visit [facility] 2945 [facility] 200 [place] [phone] Barry Ybarra MD 2945 [facility] 200 [place] [address] 01/26/2025 11:30 AM CDT Office Visit [facility] [address] [place] [address] [place] [address] [place] [address] documented as of this encounter Goals Goal Patient Goal Type Associated Problems Recent Progress Patient-Stated? Author Problem Solving General On track( 019 9:24 AM TECHNOLOGY ARCHITECT) Yes Sheryl Stringer RD Note: My Goal: [...] Out COVID-19 2021 2021 04/25/2021 12:41 PM TECHNOLOGY ARCHITECT Rule Out COVID-19 06/14/2022 06/14/2022 06/14/2022 11:30 AM TECHNOLOGY ARCHITECT Rule Out COVID-19 07/03/2022 07/03/2022 07/04/2022 12:27 AM TECHNOLOGY ARCHITECT Rule Out COVID-19 04/01/2024 04/01/2024 04/01/2024 10:07 PM CDT ESBL 07/05/2024 08/24/2024 Rule Out COVID-19 07/16/2024 07/16/2024 07/16/2024 11:04 PM TECHNOLOGY ARCHITECT Rule Out COVID-19 09/01/2024 09/01/2024 09/01/2024 2:05 AM CDT Rule Out COVID-19 09/21/2024 09/21/2024 09/21/2024 3:25 PM CDT Assessment Noted Time PHQ-9 Depression Total Score: 6 07/28/19 7:04 AM TECHNOLOGY ARCHITECT documented as of this encounter Care Teams Sap Administrator Relationship Specialty Start Date End Date Flynn Ruiz MD [address] [place] [id number] PCP - General Family Practice 04/14/19 05/18/20 Trina Carbajal PA-C [address] [place] [address] PCP - General Family Medicine 05/19/20 04/10/24 [place] [address] [place] [address] PCP - General Family Medicine 04/11/[address] [facility] [address] [place] [address] Perch Machine Inspector Dietitian, Registered 11/03/17 Trina Carbajal PA-C [address] [place] [address] Assigned PCP 08/13/19 07/27/20 Federico Linda MD [address] [place], [place] 488[address] Assigned Heart and Vascular Provider 03/29/20 Connie Blackwell MD [address] [place], [place] [address] Assigned Endocrinology Provider 07/14/20 12/19/20 Ruth Ann Munoz MD [place] 7447 [facility] [address] [place] [address] Assigned PCP 07/28/20 08/25/20 Carlos Livingston MD NO INFO AVAILABLE Assigned PCP 08/26/20 08/31/20 Trina Carbajal PA-C [address] [place] [address] Assigned PCP 09/01/20 12/07/20 Carlos Livingston MD NO INFO AVAILABLE Assigned Endocrinology Provider 12/20/20 12/18/22 Carlos Livingston MD NO INFO AVAILABLE Assigned PCP 12/08/20 12/19/20 Trina Carbajal PA-C [address] [place], [place] [address] Assigned PCP 12/20/20 04/28/24 Mari Funes, RN Personal Advocate & Liaison (PAL) Nurse 01/24/21 06/12/21 Jc Zavala MD [facility] [address] [place] [address] Hematology & Oncology 08/07/21 Barbi Manzo, JERRY Personal Advocate & Liaison (PAL) Family Medicine 12/24/21 07/08/23 [place] [address] [place] [address] Assigned Musculoskeletal Provider 04/04/22 08/19/23 Cristofer Michelle MD [address] [place] [address] Gastroenterology 07/28/22 Vivien Blanchard MD [address] [place] [address] [phone] Urology 07/28/22 Sapna Hernandez MD [address] [place] [address] Assigned Nephrology Provider 07/11/22 09/25/22 Vivien Blanchard MD [address] [place] [address] Assigned Surgical Provider 07/25/22 06/30/23 Virgie Lobato PA-C [address] [place] [address] Assigned Nephrology Provider 09/26/22 03/28/24 Teetee Velazquez PA-C [address] [place] [address] Physician Hand Sewer Shoes 05/11/23 Teetee Velazquez PA-C [address] [place] [address] [phone] Assigned Surgical Provider 07/01/23 Cora Shah RN Personal Advocate & Liaison (PAL) Nurse 07/09/23 09/29/23 [place] [address] [address] 139697 Assigned Musculoskeletal Provider 08/20/23 Cristal Cooper, JERRY Lead Color Repairer Primary Care - CC 04/27/2404/08 Shannon Rowland PA-C [address] [place] [address] Assigned PCP 04/29/24 05/28/24 Lanie Foster, RD, LD [address] [place] [address] Registered Dietitian Nutrition 05/15/24 [place] [address] [place] [address] Assigned PCP 05/29/24 Melonie Caro RPH [address] [place] [address] Pharmacist Pharmacist 06/05/24 Federico Linda MD 6405 [facility] [address] [place], [place] [address] Cardiovascular Disease 06/13/24 Melonie Caro RPH [address] [place] [address] Assigned MTM Pharmacist 06/29/24 Virgie Lobato, PA-C [address] [place] [address] Assigned Nephrology Provider 07/30/24 Barry Ybarra MD [address] [place] [address] Hospitalist Infectious Diseases 08/31/24 Barry Ybarra MD [address] [place] [address] Assigned Infectious Disease Provider 10/27/24 documented as of this encounter
--- OUTSIDE RECORDS SUMMARY | 2024-11-12 17:22 | XMS_ITS | Encounter Summary ---
Author Organization [facility] Address [address] [place] [address] Care Team Providers Care Rn Lpn Cna Name Role Phone Sheryl Stringer Kirk BENITEZ Unavailable [phone] Federico Linda MD Unavailable [phone] Trina Carbajal-C Primary Care Provider Carlos Livingston MD Unavailable Jelena vailable Trina CarbajalC Unavailable [phone] Jc Zavala MD Unavailable [phone] Barbi Manzo RN Unavailable Unavailable Erasto Root MD Unavailable Cristofer Michelle MD Unavailable [phone] Vivien Blanchard MD Unavailable [phone] Sapna Hernandez MD Unavailable Vivien Blanchard MD Unavailable [phone] Virgie Lobato-C Unavailable [phone] Teetee VelazquezC Unavailable Teetee Velazquez-C Unavailable [phone] Cora Shah RN Unavailable MorenoBrad Unavailable [phone] Mary Garcia MD Primary Care Provider [phone] Cristal Cooper RN Unavailable Shannon Rowland PA-C Unavailable [phone], LD Unavailabl e Mary Garcia MD Unavailable Melonie Caro [facility] Unavailable Federico Linda MD Unavailable Melonie Caro [facility] Unavailable Virgie Lobato PA-C Unavailable Barry Ybarra MD Unavailable Barry Ybarra MD Unavailable [phone] Encounter Details Date Type Department Care Team (Late st Contact Info) Description 06/16/2021 [facility] Endocrinology [address] [place] [phone] Kika Swann Social History Tobacco Use Types Packs/Day Years Used Date Smoking Tobacco: Never Smokeless Tobacco: Never Alcohol Use Standard Drinks/Week Comments No 0 (1 standard drink = 0.6 oz pur e alcohol) PHQ-2 Answer Date Recorded PHQ-2 Score 1 04/08/2021 Comments No Sex and Gender Information Value Date Recorded Sex Assigned at Female 07/18/2020 1:16 PM CHICKEN AND FISH BUTCHER Legal Sex Female 3:23 AM CHICKEN AND FISH BUTCHER Gender Identity Female 07/18/2020 1:16 PM CHICKEN AND FISH BUTCHER Sexual Orientation Straight 07/18/2020 1: 16 PM CHICKEN AND FISH BUTCHER 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 No / Unsure 06/17/2021 5:12 PM CHICKEN AND FISH BUTCHER documented as of this encounter Plan of Treatment Upcoming Encounters Date Type Department Care Team (Late st Contact Info) Description 11/16/2024 1:00 PM CDT Allied Health/Nurse Visit [facility] Urology [address] 4th [place] [phone] Lucero Britt PA-C 500 [place], [place] [phone] 11/16/2024 2:45 PM CDT Office Visit [facility] Urology [address] [phone] Vivien Blanchard MD 420 [facility] 394 [place], [place] 309135 11/20/2024 3:30 PM CDT Office Visit [facility] [address] [place] [phone] [place] [address] [place] [address] 11/22/2024 9:15 AM CDT Office Visit [facility] Heart [facility] 23267 [facility] [address] [place] [phone] Federico Linda MD [address] 868855 11/30/2024 10:30 AM CDT Lab [facility] Laboratory [address] [place] [phone] 12/06/2024 10:10 AM CDT Office Visit [facility] 6525 [facility] 200 [place] [phone] Virgie Lobato PA-C 9 [place] [address] 12/28/2024 11:00 AM CDT Office Visit [facility] 2945 [facility] 200 [place] [address] Barry Ybarra MD 2945 [facility] 200 [place] [address] 01/26/2025 11:30 AM CDT Office Visit [facility] [address] [place] [phone] Mary [place] [phone] [place] [address] documented as of this encounter Goals Goal Patient Goal Type Associated Problems Recent Progress Patient-Stated? Author Problem Solving General On track( 019 9:24 AM CHICKEN AND FISH BUTCHER) Yes Sheryl Stringer, ELI Note: My Goal: [...] Out COVID-19 06/14/2022 06/14/2022 06/14/2022 11:30 AM CHICKEN AND FISH BUTCHER Rule Out COVID-19 07/03/2022 07/03/2022 07/04/2022 12:27 AM CHICKEN AND FISH BUTCHER Rule Out COVID-19 04/01/2024 04/01/2024 04/01/2024 10:07 PM CDT ESBL 07/05/2024 08/24/2024 Rule Out COVID-19 07/16/2024 07/16/2024 07/16/2024 11:04 PM CHICKEN AND FISH BUTCHER Rule Out COVID-19 09/01/2024 09/01/2024 09/01/2024 2:05 AM CDT Rule Out COVID-19 09/21/2024 09/21/2024 09/21/2024 3:25 PM CDT Assessment Noted Time PHQ-9 Depression Total Score: 2 03/19/20 7:02 AM CDT documented as of this encounter Care Teams Rn Lpn Cna Relationship Specialty Start Date End Date Trina Carbajal PA-C [address] [place] [address] PCP - General Family Medicine 05/19/20 04/10/24 [place] [address] [place] [address] PCP - General Family Medicine 04/11/[address] [place] [id number] Bundle Tier And Labeler Dietitian, Registered 11/03/17 Federico Linda MD [address] [place] [address] Assigned Heart and Vascular Provider 03/29/20 Carlos Livingston MD NO INFO AVAILABLE Assigned Endocrinology Provider 12/20/20 12/18/22 Trina Carbajal PA-C [address] [place] [address] Assigned PCP 12/20/20 04/28/24 Jc Zavala MD [facility] [address] [address] Hematology & Oncology 08/07/21 Barbi Manzo, RN Personal Advocate & Liaison (PAL) Family Medicine 12/24/21 07/08/23 [place] [address] [place] [address] Assigned Musculoskeletal Provider 04/04/22 08/19/23 Cristofer Michelle MD [address] [place] [place] [address] 838375 Gastroenterology 07/28/22 Vivien Blanchard MD [address] [place] [address] 081595 Urology 07/28/22 Sapna Hernandez MD [address] [phone] Assigned Nephrology Provider 07/11/22 09/25/22 Vivien Blanchard MD [address] [place] [address] 875575 Assigned Surgical Provider 07/25/22 06/30/23 Virgie Lobato PA-C [address] [place] [address] [phone] Assigned Nephrology Provider 09/26/22 03/28/24 Teetee Velazquez PA-C [address] [place] [address] 717115 Physician Business Professor 05/11/23 Teetee Velazquez PA-C 909 [place], [place] 293945 Assigned Surgical Provider 07/01/23 Cora Shah, JERRY Personal Advocate & Liaison (PAL) Nurse 07/09/23 09/29/23 [place] [address] [address], [address] [place], [place] [phone] Assigned Musculoskeletal Provider 08/20/23 Cristal Cooper RN Lead Consumer Loan Processor Primary Care - CC 04/27/2404/08 Shannon Rowland PA-C [address] [place] [phone] Assigned PCP 04/29/24 05/28/24 Lanie Foster, RD, LD 6401 [facility] [place] [id number] Registered Dietitian Nutrition 05/15/24 [place] [address] [place] [address] Assigned PCP 05/29/24 Melonie Caro [facility] [address] [place], [place] [phone] Pharmacist Pharmacist 06/05/24 Federico Linda MD [address] [facility] [address] [place] 011305 Cardiovascular Disease 06/13/24 Melonie Caro [facility] [address] [place] [address] Assigned MTM Pharmacist 06/29/24 Virgie Lobato PA-C [address] [place] [address] 317155 Assigned Nephrology Provider 07/30/24 Barry Ybarra MD [address] [place] [address] Hospitalist Infectious Diseases 08/31/24 Barry Ybarra MD [address] [place] [address] Assigned Infectious Disease Provider 10/27/24 documented as of this encounter
--- OUTSIDE RECORDS SUMMARY | 2024-11-12 17:22 | XMS_ITS | Encounter Summary ---
Author Organization [facility] Address [address] [place] [address] Care Team Providers Care Induction Heat Treater Name Role Phone Sheryl Stringer ELI Unavailable [phone] Flynn Ruiz MD Primary Care Provider Trina Carbajal PA-C Unavailable [phone] Federico Linda MD Unavailable Trina Carbajal PA-C Primary Care Provider [phone] Connie Blackwell MD Unavailable [phone] Ruth Ann Munoz MD Unavailable + Carlos Livingston MD Unavailable Jelena ericailable Trina Carbajal PA-C Unavailable [phone] Carlos Livingston MD Unavailable Jelena ericailable Carlos Livingston MD Unavailable Jelena Trina Marcum PA-C Unavailable [phone] Mari Funes RN Unavailable Unavailable Jc Zavala MD Unavailable [phone] Barbi Manzo RN Unavailable Unavailable Erasto Root MD Unavailable Cristofer Michelle MD Unavailable [phone] Vivien Blanchard MD Unavailable [phone] Sapna Hernandez MD Unavailable Vivien Blanchard MD Unavailable [phone] Virgie Lobato-C Unavailable [phone] Teetee Velazquez PA-C Unavailable [phone] Teetee Velazquez PA-C Unavailable [phone] Cora Shah RN Unavailable [phone] Brad Mayer DO Unavailable [phone] Mary Garcia MD Primary Care Provider Cristal Cooper RN Unavailable Shannon Rowland PA-C Unavailable [phone], LD Unavailabl e Mary Garcia MD Unavailable Melonie Caro [facility] Unavailable [phone] Federico Linda MD Unavailable [phone] Melonie Caro [facility] Unavailable Virgie viramontes-C Unavailable [phone] Barry Ybarra MD Unavailable [phone] Barry Ybarra MD Unavailable [phone] Encounter Details Date Type Department Care Team (Late st Contact Info) Description 12/14/2019 [facility] [place] [facility] [place] [facility] [address] [address] Rahel Chinchilla CMA Social History Tobacco Use Types Packs/Day Years Used Date Smoking Tobacco: Never Smokeless Tobacco: Never Alcohol Use Standard Drinks/Week Comments No 0 (1 standard drink = 0.6 oz pur e alcohol) PHQ-2 Answer Date Recorded PHQ-2 Score 0 07/27/2019 Comments No Sex and Gender Information Value Date Recorded Sex Assigned at Female 07/18/2020 1:16 PM SUPERVISOR SALVAGE Legal Sex Female 3:23 AM SUPERVISOR SALVAGE Gender Identity Female 07/18/2020 1:16 PM SUPERVISOR SALVAGE Sexual Orientation Straight 07/18/2020 1: 16 PM SUPERVISOR SALVAGE 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 Not on file documented as of this encounter Plan of Treatment Upcoming Encounters Date Type Department Care Team (Late st Contact Info) Description 11/16/2024 1:00 PM CDT Allied Health/Nurse Visit [facility] Urology [address] [phone] Lucero Britt PA-C 500 [place], [place] 698635 11/16/2024 2:45 PM CDT Office Visit [facility] Urology [address] [phone] Vivien Blanchard MD 420 [facility] 394 [place], [place] 8522[address] 11/20/2024 3:30 PM CDT Office Visit [address] [phone] [place] [address] [place] [address] 11/22/2024 9:15 AM CDT Office Visit [facility] Heart [facility] [address] [facility] [place] [facility] [address] [place] [address] Federico Linda MD [address] [facility] [address] [place] [address] 11/30/2024 10:30 AM CDT Lab [facility] Laboratory [address] [place] [address] 12/06/2024 10:10 AM CDT Office Visit [facility] 6525 [facility] 200 [place] [phone] Virgie Lobato, PANilesh 909 [place] [address] 12/28/2024 11:00 AM CDT Office Visit [facility] [address] [phone] [place] [address] [place] [address] 01/26/2025 11:30 AM CDT Office Visit [facility] [address] [place] [phone] [place] [address] [place] [address] documented as of this encounter Goals Goal Patient Goal Type Associated Problems Recent Progress Patient-Stated? Author Problem Solving General On track( 019 9:24 AM SUPERVISOR SALVAGE) Yes Sheryl Stringer, ELI Note: My Goal: [...] Out COVID-19 2021 2021 04/25/2021 12:41 PM SUPERVISOR SALVAGE Rule Out COVID-19 06/14/2022 06/14/2022 06/14/2022 11:30 AM SUPERVISOR SALVAGE Rule Out COVID-19 07/03/2022 07/03/2022 07/04/2022 12:27 AM SUPERVISOR SALVAGE Rule Out COVID-19 04/01/2024 04/01/2024 04/01/2024 10:07 PM CDT ESBL 07/05/2024 08/24/2024 Rule Out COVID-19 07/16/2024 07/16/2024 07/16/2024 11:04 PM SUPERVISOR SALVAGE Rule Out COVID-19 09/01/2024 09/01/2024 09/01/2024 2:05 AM CDT Rule Out COVID-19 09/21/2024 09/21/2024 09/21/2024 3:25 PM CDT Assessment Noted Time PHQ-9 Depression Total Score: 6 07/28/19 7:04 AM SUPERVISOR SALVAGE documented as of this encounter Care Teams Induction Heat Treater Relationship Specialty Start Date End Date Flynn Ruiz MD [address] [place] [address] PCP - General Family Practice 04/14/19 05/18/20 Trina Carbajal, PA-C [address] [facility] [address] [place] [address] PCP - General Family Medicine 05/19/20 04/10/24 [place] [address] [address] [place] [address] PCP - General Family Medicine 04/11/[address] [place] [address] Specialty Foods Cook Dietitian, Registered 11/03/17 Trina Carbajal PA-C [address] [place] [address] Assigned PCP 08/13/19 07/27/20 Federico Linda MD [address] [place] [address] Assigned Heart and Vascular Provider 03/29/20 Connie Blackwell MD [address] [place] [address] Assigned Endocrinology Provider 07/14/20 12/19/20 Ruth Ann Munoz MD [place] [address] [place] [address] Assigned PCP 07/28/20 08/25/20 Carlos Livingston MD NO INFO AVAILABLE Assigned PCP 08/26/20 08/31/20 Trina Carbajal PA-C [address] [place] [address] Assigned PCP 09/01/20 12/07/20 Carlos Livingston MD NO INFO AVAILABLE Assigned Endocrinology Provider 12/20/20 12/18/22 Carlos Livingston MD NO INFO AVAILABLE Assigned PCP 12/08/20 12/19/20 Trina Carbajal PA-C 6405 [facility] [address] [place] [address] Assigned PCP 12/20/20 04/28/24 Mari Funes, RN Personal Advocate & Liaison (PAL) Nurse 01/24/21 06/12/21 Jc Zavala MD [facility] [address] [place] [address] Hematology & Oncology 08/07/21 Barbi Manzo, JERRY Personal Advocate & Liaison (PAL) Family Medicine 12/24/21 07/08/23 [place] [address] [place] [address] Assigned Musculoskeletal Provider 04/04/22 08/19/23 Cristofer Michelle MD [address] [place], [place] [address]B [address]E [place], [place] [address] Gastroenterology 07/28/22 Vivien Blanchard MD [address] [place] [place] [address] [phone] Urology 07/28/22 Sapna Hernandez MD [address] [place] [place] [address] Assigned Nephrology Provider 07/11/22 09/25/22 Vivien Blanchard MD [address] [place] [place] [address] Assigned Surgical Provider 07/25/22 06/30/23 LhVirgie viramontes PA-C [address] [place] [address] Assigned Nephrology Provider 09/26/22 03/28/24 Teetee Velazquez PA-C [address] [place] [address] 693105 Physician Director Immunology 05/11/23 Teetee Velazquez PA-C [address] [place] [address] Assigned Surgical Provider 07/01/23 Cora Shah, JERRY Personal Advocate & Liaison (PAL) Nurse 07/09/23 09/29/23 [place] [address] 358947 Assigned Musculoskeletal Provider 08/20/23 Cristal Cooper RN Lead Board Certified Family Physician Primary Care - CC 04/27/2404/08 Shannon Rowland PA-C [address] [place] [address]98[address]283 Assigned PCP 04/29/24 05/28/24 Lanie Foster, RD, LD [address] [place] [address] Registered Dietitian Nutrition 05/15/24 [place] [address] [place], [place] 4720944 Assigned PCP 05/29/24 Melonie Caro [facility] [address] [place] [address] Pharmacist Pharmacist 06/05/24 Federico Linda MD [address] [place], [place] 538515 Cardiovascular Disease 06/13/24 Melonie Caro [facility] [address] [place] [address] Assigned MTM Pharmacist 06/29/24 Virgie Lobato, PAAnthonyC [address] [place] [address] 079695 Assigned Nephrology Provider 07/30/24 Barry Ybarra MD [address] [place] [address] Hospitalist Infectious Diseases 08/31/24 Barry Ybarra MD [address] [place] [address] Assigned Infectious Disease Provider 10/27/24 documented as of this encounter
--- OUTSIDE RECORDS SUMMARY | 2024-11-12 17:23 | XMS_ITS | Encounter Summary ---
Author Organization [facility] Address [address] [place] [address] Care Team Providers Care Invoice Machine Operator Name Role Phone Sheryl Stringer Kirk BENITEZ Unavailable [phone] Federico Linda MD Unavailable [phone] Trina CarbajalC Primary Care Provider Carlos Livingston MD Unavailable Jelena vailable Trina Carbajal PA-C Unavailable [phone] Mari Funes RN Unavailable Unavailable Jc Zavala MD Unavailable [phone] Barbi Manzo RN Unavailable Unavailable Erasto Root MD Unavailable Cristofer Michelle MD Unavailable [phone] Vivien Blanchard MD Unavailable [phone] Sapna Hernandez MD Unavailable Vivien Blanchard MD Unavailable [phone] Virgie LobatoC Unavailable Teetee Velazquez-C Unavailable [phone] Teetee Velazquez PA-C Unavailable [phone] Cora Shah RN Unavailable [phone] Moreno Brad Unavailable [phone] Mary Garcia MD Primary Care Provider [phone] Cristal Cooper RN Unavailable Shannon Rowland PA-C Unavailable [phone], LD Unavailabl e Mary Garcia MD Unavailable Melonie Caro [facility] Unavailable Federico Linda MD Unavailable [phone] Melonie Caro [facility] Unavailable Virgie Lobato PA-C Unavailable Barry Ybarra MD Unavailable Barry Ybarra MD Unavailable [phone] Encounter Details Date Type Department Care Team (Late st Contact Info) Description 04/09/2021 [facility] [address] [address] Cora Shah, JERRY Social History Tobacco Use Types Packs/Day Years Used Date Smoking Tobacco: Never Smokeless Tobacco: Never Alcohol Use Standard Drinks/Week Comments No 0 (1 standard drink = 0.6 oz pur e alcohol) PHQ-2 Answer Date Recorded PHQ-2 Score 1 04/08/2021 Comments No Sex and Gender Information Value Date Recorded Sex Assigned at Female 07/18/2020 1:16 PM REFINING STILL OPERATOR Legal Sex Female 3:23 AM REFINING STILL OPERATOR Gender Identity Female 07/18/2020 1:16 PM REFINING STILL OPERATOR Sexual Orientation Straight 07/18/2020 1: 16 PM REFINING STILL OPERATOR 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 No / Unsure 04/08/2021 7:21 AM CDT documented as of this encounter Plan of Treatment Upcoming Encounters Date Type Department Care Team (Late st Contact Info) Description 11/16/2024 1:00 PM CDT Allied Health/Nurse Visit [facility] Urology [address]th [place] [address] Lucero Britt PA-C 500 [place], [place] [phone] 11/16/2024 2:45 PM CDT Office Visit [facility] Urology [address] [address] Vivien Blanchard MD 420 [facility] 394 [place] [address] 11/20/2024 3:30 PM CDT Office Visit [facility] [address] [place] [phone] [place] [address] [place] [address] 11/22/2024 9:15 AM CDT Office Visit [facility] [address] [facility] [address] [place] [address] Federico Linda MD 6401 [facility] [address] [place], [place] [address] 11/30/2024 10:30 AM CDT Lab [facility] Laboratory [address] [place] [phone] 12/06/2024 10:10 AM CDT Office Visit [facility] [address] [phone] Virgie Lobato PA-C 909 [place] [address] 12/28/2024 11:00 AM CDT Office Visit [facility] [address] [phone] Barry Ybarra MD [address] [place] [address] 01/26/2025 11:30 AM CDT Office Visit [facility] [address] [place] [phone] [place] [address] [place] [address] documented as of this encounter Goals Goal Patient Goal Type Associated Problems Recent Progress Patient-Stated? Author Problem Solving General On track( 019 9:24 AM REFINING STILL OPERATOR) Yes Sheryl Stringer RD Note: My [...] Last Indicated Resolved Time Rule Out COVID-19 2021 2021 04/25/2021 12:41 PM REFINING STILL OPERATOR Rule Out COVID-19 06/14/2022 06/14/2022 06/14/2022 11:30 AM REFINING STILL OPERATOR Rule Out COVID-19 07/03/2022 07/03/2022 07/04/2022 12:27 AM REFINING STILL OPERATOR Rule Out COVID-19 04/01/2024 04/01/2024 04/01/2024 10:07 PM CDT ESBL 07/05/2024 08/24/2024 Rule Out COVID-19 07/16/2024 07/16/2024 07/16/2024 11:04 PM REFINING STILL OPERATOR Rule Out COVID-19 09/01/2024 09/01/2024 09/01/2024 2:05 AM CDT Rule Out COVID-19 09/21/2024 09/21/2024 09/21/2024 3:25 PM CDT Assessment Noted Time PHQ-9 Depression Total Score: 2 03/19/20 7:02 AM CDT documented as of this encounter Care Teams Invoice Machine Operator Relationship Specialty Start Date End Date Trina Carbajal PA-C [address] [place] [address] PCP - General Family Medicine 05/19/20 04/10/24 [place] [address] [place] [address] PCP - General Family Medicine 04/11/[address] [place] [address] Money Counter Dietitian, Registered 11/03/17 Federico Linda MD [address] [place] [address] Assigned Heart and Vascular Provider 03/29/20 Carlos Livingston MD NO INFO AVAILABLE Assigned Endocrinology Provider 12/20/20 12/18/22 Trina Carbajal PA-C [address] [place] [address] Assigned PCP 12/20/20 04/28/24 Mari Funes, JERRY Personal Advocate & Liaison (PAL) Nurse 01/24/21 06/12/21 Jc Zavala MD [place] [facility] [address] [place] [address] Hematology & Oncology 08/07/21 Barbi Manzo, JERRY Personal Advocate & Liaison (PAL) Family Medicine 12/24/21 07/08/23 [place] [address] [address] Assigned Musculoskeletal Provider 04/04/22 08/19/23 Cristofer Michelle MD [address] [place] [address] Gastroenterology 07/28/22 Vivien Blanchard MD [address] [place] [address] 483255 Urology 07/28/22 Sapna Hernandez MD [address] [place] [address] 762085 Assigned Nephrology Provider 07/11/22 09/25/22 Vivien Blanchard MD [address] [place] [address] 139505 Assigned Surgical Provider 07/25/22 06/30/23 Virgie Lobato, GIUSEPPEC [address] [place] [address] Assigned Nephrology Provider 09/26/22 03/28/24 Teetee Velazquez PA-C 909 [place] [address] Physician Clinical Professor 05/11/23 Teetee Velazquez PA-C 909 [place] [address] Assigned Surgical Provider 07/01/23 Cora Shah, JERRY Personal Advocate & Liaison (PAL) Nurse 07/09/23 09/29/23 [place] [address] [address] Assigned Musculoskeletal Provider 08/20/23 Cristal Cooper, JERRY Lead Underliner Primary Care - CC 04/27/2404/08 Shannon Rowland PA-C [address] [place] [address]-89467283 Assigned PCP 04/29/24 05/28/24 Lanie Foster, RD, LD [address] [address] Registered Dietitian Nutrition 05/15/24 [place] [address] [place] [address] Assigned PCP 05/29/24 Melonie Caro [facility] [address] [place] [address] Pharmacist Pharmacist 06/05/24 Federico Linda MD [address] [place] [address] Cardiovascular Disease 06/13/24 Melonie Caro [facility] [address] [place] [address] Assigned MTM Pharmacist 06/29/24 Virgie Lobato, PAAnthonyC [address] [place] [address] Assigned Nephrology Provider 07/30/24 Barry Ybarra MD [address] [place] [address] Hospitalist Infectious Diseases 08/31/24 Barry Ybarra MD [address] [place] [address] Assigned Infectious Disease Provider 10/27/24 documented as of this encounter
--- OUTSIDE RECORDS SUMMARY | 2024-11-12 17:23 | XMS_ITS | Encounter Summary ---
Author Organization [facility] Address [address] [place] [address] Care Team Providers Care Dredge Mechanic Name Role Phone Sheryl Stringer Kirk BENITEZ Unavailable [phone] Federico Linda MD Unavailable [phone] Trina CarbajalC Primary Care Provider Carlos Livingston MD Unavailable Jelena vailable Trina Carbajal PA-C Unavailable [phone] Mari Funes RN Unavailable Unavailable Jc Zavala MD Unavailable [phone] Barbi Manzo RN Unavailable Unavailable Erasto Root MD Unavailable Cristofer Michelle MD Unavailable [phone] Vivien Blanchard MD Unavailable [phone] Sapna Hernandez MD Unavailable Vivien Blanchard MD Unavailable [phone] Vrigie LobatoC Unavailable [phone] Teetee Velazquez PA-C Unavailable [phone] Teetee Velazquez PA-C Unavailable [phone] Cora Shah RN Unavailable Brad Mayer Unavailable [phone] Mary Garcia MD Primary Care Provider Cristal Cooper RN Unavailable Shannon Rowland PA-C Unavailable [phone], LD Unavailabl e Mary Garcia MD Unavailable Melonie Caro [facility] Unavailable Federico Linda MD Unavailable [phone] Melonie Caro [facility] Unavailable Virgie Lobato PA-C Unavailable [phone] Barry Ybarra MD Unavailable Barry Ybarra MD Unavailable [phone] Encounter Details Date Type Department Care Team (Late st Contact Info) Description 04/11/2021 [facility] [address] [address] Trina Carbajal PA-C [address] [facility] [address] [place] [address] Social History Tobacco Use Types Packs/Day Years Used Date Smoking Tobacco: Never Smokeless Tobacco: Never Alcohol Use Standard Drinks/Week Comments No 0 (1 standard drink = 0.6 oz pur e alcohol) PHQ-2 Answer Date Recorded PHQ-2 Score 1 04/08/2021 Comments No Sex and Gender Information Value Date Recorded Sex Assigned at Female 07/18/2020 1:16 PM TOOLROOM HELPER Legal Sex Female 3:23 AM TOOLROOM HELPER Gender Identity Female 07/18/2020 1:16 PM TOOLROOM HELPER Sexual Orientation Straight 07/18/2020 1: 16 PM TOOLROOM HELPER 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 Not [...] 11/16/2024 1:00 PM CDT Allied Health/Nurse Visit [facility] Urology [address] [phone] Lucero Britt PA-C 500 [place], [place] [phone] 11/16/2024 2:45 PM CDT Office Visit [facility] Urology [address] [phone] Vivien Blanchard MD 420 [facility] 394 [place], [place] [phone] 11/20/2024 3:30 PM CDT Office Visit [address] [address] Mary Garcia MD [address] [place] [address] 11/22/2024 9:15 AM CDT Office Visit [facility] [address] [facility] [address] [place] [phone] Federico Linda MD 8[address] [facility] [address] [place], [place] [address] 11/30/2024 10:30 AM CDT Lab [facility] [address] [place] [address] 12/06/2024 10:10 AM CDT Office Visit [facility] 6525 [facility] 200 [place] [address] Virgie Lobato PA-C [address] [place] [address] 12/28/2024 11:00 AM CDT Office Visit [facility] [address] [phone] [place] [address] [place] [address] 01/26/2025 11:30 AM CDT Office Visit [facility] [address] [place] [address] [place] [id number] [place] [address] documented as of this encounter Goals Goal Patient Goal Type Associated Problems Recent Progress Patient-Stated? Author Problem Solving General On track( 019 9:24 AM TOOLROOM HELPER) Yes Sheryl Stringer RD Note: My Goal: [...] Out COVID-19 2021 2021 04/25/2021 12:41 PM TOOLROOM HELPER Rule Out COVID-19 06/14/2022 06/14/2022 06/14/2022 11:30 AM TOOLROOM HELPER Rule Out COVID-19 07/03/2022 07/03/2022 07/04/2022 12:27 AM TOOLROOM HELPER Rule Out COVID-19 04/01/2024 04/01/2024 04/01/2024 10:07 PM CDT ESBL 07/05/2024 08/24/2024 Rule Out COVID-19 07/16/2024 07/16/2024 07/16/2024 11:04 PM TOOLROOM HELPER Rule Out COVID-19 09/01/2024 09/01/2024 09/01/2024 2:05 AM CDT Rule Out COVID-19 09/21/2024 09/21/2024 09/21/2024 3:25 PM CDT Assessment Noted Time PHQ-9 Depression Total Score: 2 03/19/20 7:02 AM CDT documented as of this encounter Care Teams Dredge Mechanic Relationship Specialty Start Date End Date Trina Carbajal PA-C [address] [place] [address] PCP - General Family Medicine 05/19/20 04/10/24 [place] [address] [place] [address] PCP - General Family Medicine 04/11/[address] [place] [address] Covering Machine Operator Helper Dietitian, Registered 11/03/17 Federico Linda MD [address] [place] [address] Assigned Heart and Vascular Provider 03/29/20 Carlos Livingtson MD NO INFO AVAILABLE Assigned Endocrinology Provider 12/20/20 12/18/22 Trina Carbajal PA-C [address] [place] [address] Assigned PCP 12/20/20 04/28/24 Mari Funes, JERRY Personal Advocate & Liaison (PAL) Nurse 01/24/21 06/12/21 Jc Zavala MD [facility] [address] [place] [address] Hematology & Oncology 08/07/21 Barbi Manzo, JERRY Personal Advocate & Liaison (PAL) Family Medicine 12/24/21 07/08/23 [place] [address] [place] [address] Assigned Musculoskeletal Provider 04/04/22 08/19/23 Cristofer Michelle MD [address] [place] [address] [address] [place] [address] Gastroenterology 07/28/22 Vivien Blanchard MD [address] [place] [address] [phone] Urology 07/28/22 Sapna Hernandez MD [address] [place] [address] [phone] Assigned Nephrology Provider 07/11/22 09/25/22 Vivien Blanchard MD [address] [place] [address] 878725 Assigned Surgical Provider 07/25/22 06/30/23 Virgie Lobato, PAAnthonyC [address] [place] [address] Assigned Nephrology Provider 09/26/22 03/28/24 Teetee Velazquez PA-C [address] [place] [address] Physician Medical Lab Technologist 05/11/23 Teetee Velazquez PA-C [address] [place] [address] Assigned Surgical Provider 07/01/23 Cora Shah, JERRY Personal Advocate & Liaison (PAL) Nurse 07/09/23 09/29/23 [place] [address] [address] [address] Assigned Musculoskeletal Provider 08/20/23 Cristal Cooper RN Lead Reference Data Expert Primary Care - CC 04/27/2404/08 Shannon Rowland PA-C [address] [place] [phone] Assigned PCP 04/29/24 05/28/24 Lanie Foster, RD, LD [address] 339145 Registered Dietitian Nutrition 05/15/24 [place] [address] [place] [address] Assigned PCP 05/29/24 Melonie Caro [facility] [address] [place] [address] Pharmacist Pharmacist 06/05/24 Federico Linda MD [address] [place] [address] Cardiovascular Disease 06/13/24 Melonie Caro [facility] [address] [place] [address] Assigned MTM Pharmacist 06/29/24 Virgie Lobato, PAAnthonyC [address] [place] [address] Assigned Nephrology Provider 07/30/24 Barry Ybarra MD [address] [place] [address] Hospitalist Infectious Diseases 08/31/24 Barry Ybarra MD [address] [place] [address] Assigned Infectious Disease Provider 10/27/24 documented as of this encounter
--- OUTSIDE RECORDS SUMMARY | 2024-11-12 17:23 | XMS_ITS | Encounter Summary ---
Author Organization [facility] Address [address] [place] [address] Care Team Providers Care Motor Assembler Name Role Phone Sheryl Stringer Kirk BENITEZ Unavailable [phone] Federico Linda MD Unavailable [phone] Trina Carbajal-C Primary Care Provider [phone] Trina Carbajal PA-C Unavailable [phone] Jc Zavala MD Unavailable [phone] Barbi Manzo RN Unavailable Unavailable Erasto Root MD Unavailable Cristofer Michelle MD Unavailable [phone] Vivien Blanchard MD Unavailable [phone] Vivien Blanchard MD Unavailable [phone] Virgie Lobato-C Unavailable [phone] Teetee Velazquez PA-C Unavailable [phone] Teetee Velazquez PA-C Unavailable [phone] Cora Shah RN Unavailable Brad Mayer DO Unavailable [phone] Mary Garcia MD Primary Care Provider Cristal Cooper RN Unavailable Shannon Rowland PA-C Unavailable [phone], LD Unavailabl e Mary Garcia MD Unavailable Melonie Caro [facility] Unavailable Federico Linda MD Unavailable [phone] Melonie Caro [facility] Unavailable Virgie Lobato PA-C Unavailable [phone] Barry Ybarra MD Unavailable Barry Ybarra MD Unavailable Encounter Details Date Type Department Care Team (Late st Contact Info) Description 04/28/2023 [facility] [address] [address] Trina Carbajal PA-C [address] [address] Social History Tobacco Use Types Packs/Day Years Used Date Smoking Tobacco: Never Smokeless Tobacco: Never Alcohol Use Standard Drinks/Week Comments No 0 (1 standard drink = 0.6 oz pur e alcohol) PHQ-2 Answer Date Recorded PHQ-2 Score 0 09/09/2022 Adolescent Education Answer Date Record ed Getting School Help Needed Not on file 02/27 Comments No Sex and Gender Information Value Date Recorded Sex Assigned at Female 07/18/2020 1:16 PM ATHLETIC TURF WORKER Legal Sex Female 3:23 AM ATHLETIC TURF WORKER Gender Identity Female 07/18/2020 1:16 PM ATHLETIC TURF WORKER Sexual Orientation Straight 07/18/2020 1: 16 PM ATHLETIC TURF WORKER 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 Updated in Myc Message. Will wait for patient to call. Mark Park RN Patient Advocate Liaison (PAL) [facility] 04/30/2023 at 9:05 AM ETIC TURF WORKER documented in this encounter Plan of Treatment Upcoming Encounters Date Type Department Care Team (Late st Contact Info) Description 11/16/2024 1:00 PM CDT Allied Health/Nurse Visit [facility] Urology [address] [phone] Lucero Britt PA-C 500 [place], [place] [address] 11/16/2024 2:45 PM CDT Office Visit [facility] [address] [phone] Vivien Blanchard MD 420 [facility] 394 [place], [place] [address] 11/20/2024 3:30 PM CDT Office Visit [facility] [address] [place] [phone] [place] [phone] [place] [address] 11/22/2024 9:15 AM CDT Office Visit [facility] Heart [address] [place] [address] Federico Linda MD 6405 [facility] [address] [place] [address] 11/30/2024 10:30 AM CDT Lab [facility] [address] [place] [address] 12/06/2024 10:10 AM CDT Office Visit [facility] 6525 [facility] 200 [place] [phone] Virgie Lobato, PA-C 909 [place] [address] 12/28/2024 11:00 AM CDT Office Visit [facility] [address] [place] [phone] [place] [address] [place] [address] 01/26/2025 11:30 AM CDT Office Visit [facility] [address] [place] [address] [place] [address] [place] [address] documented as of this encounter Goals Goal Patient Goal Type Associated Problems Recent Progress Patient-Stated? Author Problem Solving General On track( 019 9:24 AM ATHLETIC TURF WORKER) Yes Sheryl Stringer RD Note: My Goal: [...] Out COVID-19 07/16/2024 07/16/2024 07/16/2024 11:04 PM ATHLETIC TURF WORKER Rule Out COVID-19 09/01/2024 09/01/2024 09/01/2024 2:05 AM CDT Rule Out COVID-19 09/21/2024 09/21/2024 09/21/2024 3:25 PM CDT Assessment Noted Time PHQ-9 Depression Total Score: 4 09/10/19 9:48 AM CDT documented as of this encounter Care Teams Motor Assembler Relationship Specialty Start Date End Date Trina Carabjal PA-C [address] [place] [address] PCP - General Family Medicine 05/19/20 04/10/24 [place] [address] [place] [address] PCP - General Family Medicine 04/11/[address] [place] [address] Traffic Control Officer Dietitian, Registered 11/03/17 Federico Linda MD [address] [place] [address] Assigned Heart and Vascular Provider 03/29/20 Trina Carbajal PA-C [address] [place] [address] Assigned PCP 12/20/20 04/28/24 Jc Zavala MD [facility] [address] [place] [address] Hematology & Oncology 08/07/21 Barbi Manzo, RN Personal Advocate & Liaison (PAL) Family Medicine 12/24/21 07/08/23 [place] [address] [place] [address] Assigned Musculoskeletal Provider 04/04/22 08/19/23 Cristofer Michelle MD [address] [place] [address] 195315 Gastroenterology 07/28/22 Vivien Blanchard MD 420 [facility] 394 [place], [place] 66[address] Urology 07/28/22 Vivien Blanchard MD 420 [facility] [address] [place], [place] 8[address] Assigned Surgical Provider 07/25/22 06/30/23 Virgie Lobato PA-C [address] [place] [address] 735065 Assigned Nephrology Provider 09/26/22 03/28/24 Teetee Velazquez PA-C [address] [place] [address] 394545 Physician Business Data Analyst 05/11/23 Teetee Velazquez PA-C [address] [place] [address] 409665 Assigned Surgical Provider 07/01/23 Cora Shah, RN Personal Advocate & Liaison (PAL) Nurse 07/09/23 09/29/23 [place] [address] [facility], [facility] [address] [place], [place] 214627 Assigned Musculoskeletal Provider 08/20/23 Cristal Cooper, RN Lead Tie Tamper Primary Care - CC 04/27/2404/08 Shannon Rowland PA-C [address] [place] [phone] Assigned PCP 04/29/24 05/28/24 Lanie Foster, RD, LD [address] [place] [address]365 Registered Dietitian Nutrition 05/15/24 [place] [address] [place] [address] Assigned PCP 05/29/24 Melonie Caro [facility] [address] [place] [address] Pharmacist Pharmacist 06/05/24 Federico Linda MD [address] [facility] [address] [place] [address] Cardiovascular Disease 06/13/24 Melonie Caro [facility] [address] [place] [address] Assigned MTM Pharmacist 06/29/24 Virgie Lobato PA-C [address] [place] [address] Assigned Nephrology Provider 07/30/24 Barry Ybarra MD [address] [place] [address] Hospitalist Infectious Diseases 08/31/24 Barry Ybarra MD [address] [place] [address] Assigned Infectious Disease Provider 10/27/24 documented as of this encounter
--- OUTSIDE RECORDS SUMMARY | 2024-11-12 17:23 | XMS_ITS | Encounter Summary ---
Author Organization [facility] Address [address] [place] [address] Care Team Providers Care Archery Instructor Name Role Phone Sheryl Stringer Kirk BENITEZ Unavailable [phone] Federico Linda MD Unavailable [phone] Trina CarbajalC Primary Care Provider Carlos Livingston MD Unavailable Jelena vailable Trina Carbajal PA-C Unavailable [phone] Mari Funes RN Unavailable Unavailable Jc Zavala MD Unavailable [phone] Barbi Manzo RN Unavailable Unavailable Erasto Root MD Unavailable Cristofer Michelle MD Unavailable [phone] Vivien Blanchard MD Unavailable [phone] Sapna Hernandez MD Unavailable Vivien Blanchard MD Unavailable [phone] Virgie LobatoC Unavailable [phone] Teetee Velazquez-C Unavailable [phone] Teetee Velazquez-C Unavailable [phone] Cora Shah RN Unavailable MorenoBrad Unavailable [phone] Mary Garcia MD Primary Care Provider Cristal Cooper RN Unavailable Shannon Rowland PA-C Unavailable [phone], LD Unavailabl e Mary Garcia MD Unavailable Melonie Caro [facility] Unavailable Federico Linda MD Unavailable [phone] Melonie Caro [facility] Unavailable Virgie LobatoC Unavailable [phone] Barry Ybarra MD Unavailable [phone] Barry Ybarra MD Unavailable [phone] Reason for Visit * Reason Onset Date Comments Patient Request 04/09/2021 Encounter Details Date Type Department Care Team (Late st Contact Info) Description 04/09/2021 [facility] [address] [address] Trina Carbajal PA-C [address] [facility] [address] [place] [address] Patient Request Social History Tobacco Use Types Packs/Day Years Used Date Smoking Tobacco: Never Smokeless Tobacco: Never Alcohol Use Standard Drinks/Week Comments No 0 (1 standard drink = 0.6 oz pur e alcohol) PHQ-2 Answer Date Recorded PHQ-2 Score 1 04/08/2021 Comments No Sex and Gender Information Value Date Recorded Sex Assigned at Female 07/18/2020 1:16 PM PHD INTERN Legal Sex Female 3:23 AM PHD INTERN Gender Identity Female 07/18/2020 1:16 PM PHD INTERN Sexual Orientation Straight 07/18/2020 1: 16 PM PHD INTERN 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 No / Unsure 04/08/2021 7:21 AM CDT documented as of this encounter Miscellaneous Notes * Telephone Encounter - Lindsey Cabrera RN - 04/09/2021 2:59 PM CDT See Baiyaxuant message below. Please advise. Lindsey Cabrera RN documented in this encounter Plan of Treatment Upcoming Encounters Date Type Department Care Team (Late st Contact Info) Description 11/16/2024 1:00 PM CDT Allied Health/Nurse Visit [facility] Urology [address] [phone] Lucero Britt PA-C 500 [place], [place] [address] 11/16/2024 2:45 PM CDT Office Visit [facility] Urology [address] [phone] Vivien Blanchard MD 420 [facility] 394 [place], [place] [address] 11/20/2024 3:30 PM CDT Office Visit [address] [phone] Mary Garcia MD [address] [place] [address] 11/22/2024 9:15 AM CDT Office Visit [facility] Heart [facility] [address] [facility] [address] [place] [phone] Federico Linda MD 6405 [facility] [address] [place] [address] 11/30/2024 10:30 AM CDT Lab [facility] [address] [place] [phone] 12/06/2024 10:10 AM CDT Office Visit [facility] 6525 [facility] 200 [place] [phone] Virgie Lobato, PA-C [address] [place] [address] 12/28/2024 11:00 AM CDT Office [facility] 2945 [facility] 200 [place] [phone] [place] [address] [place] [address] 200 [place] [address] 01/26/2025 11:30 AM CDT Office Visit [facility] [address] [place] [phone] [place] [address] [place] [address] documented as of this encounter Goals Goal Patient Goal Type Associated Problems Recent Progress Patient-Stated? Author Problem Solving General On track( 019 9:24 AM PHD INTERN) Yes Sheryl Stringer RD Note: My Goal: I will reduce risk of low blood sugars over-night What I need to meet my goal: follow instructions for taking Novolog before meals only I plan to meet my goal by this date: 1 week documented as of this encounter Results * (ABNORMAL) UA Macro with Reflex to Micro and Culture - lab collect (05/02/2021 7:17 AM PHD INTERN) Color Urine Yellow Colorless, Straw, Light Yellow, Yellow 05/02/2021 7:50 AM PHD INTERN CR LABORATORY Appearance Urine Clear Clear 05/02/20 7:50 AM PHD INTERN CR LABORATORY Glucose Urine 500(A) Negative mg/dL 05/02/2021 7:50 AM PHD INTERN CR LABORATORY Bilirubin Urine Negative Negative 7:50 AM PHD INTERN CR LABORATORY Ketones Urine Negative Negative mg/dL 05/02/2021 7:50 AM PHD INTERN CR LABORATORY Specific Dolores Urine 1.020 1.003 - 1.035 05/02/2021 7:50 AM PHD INTERN CR LABORATORY Blood Urine Small(A) Negative 05/02/2021 7:50 AM PHD INTERN CR LABORATORY pH Urine 5.5 5.0 - 7.0 05/02/2021 7:50 AM PHD INTERN CR LABORATORY Protein Albumin Urine 30(A) Negative mg/dL 05/02/2021 7:50 AM PHD INTERN CR LABORATORY Urobilinogen Urine 0.2 0.2, 1.0 E.U./dL 05/02/2021 7:50 AM PHD INTERN CR LABORATORY Nitrite Urine Negative Negative 05/02/2021 7:50 AM PHD INTERN CR LABORATORY Leukocyte Esterase Urine Large(A) Negative 05/02/2021 7:50 AM PHD INTERN CR LABORATORY Urine MID-STREAM URINE SPECIMEN / Unknown Non-blood Collection / Unknown 05/02/2021 7:17 AM PHD INTERN 05/02/2021 7:17 AM PHD INTERN us Marjorie Schultz PA-C LAB - URINE ORDERABLES Fin al Result CR LABORATORY [facility] [address] [place] [address] Lab (no room number, 1st floor of clinic) [place] [address], [facility] [phone] documented in this encounter Visit Diagnoses Diagnosis Acute cystitis without hematuria- Primary Acute cystitis documented in this encounter Additional Health Concerns Infection Onset Date Last Indicated Resolved Time Rule Out COVID-19 2021 2021 04/25/2021 12:41 PM PHD INTERN Rule Out COVID-19 06/14/2022 06/14/2022 06/14/2022 11:30 AM PHD INTERN Rule Out COVID-19 07/03/2022 07/03/2022 07/04/2022 12:27 AM PHD INTERN Rule Out COVID-19 04/01/2024 04/01/2024 04/01/2024 10:07 PM CDT ESBL 07/05/2024 08/24/2024 Rule Out COVID-19 07/16/2024 07/16/2024 07/16/2024 11:04 PM PHD INTERN Rule Out COVID-19 09/01/2024 09/01/2024 09/01/2024 2:05 AM CDT Rule Out COVID-19 09/21/2024 09/21/2024 09/21/2024 3:25 PM CDT Assessment Noted Time PHQ-9 Depression Total Score: 2 03/19/20 21 7:02 AM CDT documented as of this encounter Care Teams Archery Instructor Relationship Specialty Start Date End Date Trina Carbajal PA-C [address] [place] [address] PCP - General Family Medicine 05/19/20 04/10/24 [place] [address] [place] [address] PCP - General Family Medicine 04/11/[address] [facility] MICHELLE [address] [place] [address] [place] [address] Group Underwriter Dietitian, Registered 11/03/17 Federico Linda MD [address] [place] [address] Assigned Heart and Vascular Provider 03/29/20 Carlos Livingston MD NO INFO AVAILABLE Assigned Endocrinology Provider 12/20/20 12/18/22 Trina Carbajal PA-C 6[address] [facility] [address] [place] [address] Assigned PCP 12/20/20 04/28/24 Mari Funes, JERRY Personal Advocate & Liaison (PAL) Nurse 01/24/21 06/12/21 Jc Zavala MD [facility] [address] [facility] 100 [place], [place] [address] Hematology & Oncology 08/07/21 Barbi Manzo RN Personal Advocate & Liaison (PAL) Family Medicine 12/24/21 07/08/23 [place] [address] [facility] [address] [place] [address] Assigned Musculoskeletal Provider 04/04/22 08/19/23 Cristofer Michelle MD [address] [place], [place] [address]B [address] [place], [place] [address] Gastroenterology 07/28/22 Vivien Blanchard MD [address] [place] [address] 394 [place], [place] 6[address] Urology 07/28/22 Sapna Hernandez MD [address] [place] [address] 365335 Assigned Nephrology Provider 07/11/22 09/25/22 Vivien Blanchard MD [address] [place] [address] Assigned Surgical Provider 07/25/22 06/30/23 Virgie Lobato PA-C [address] [place] [address] Assigned Nephrology Provider 09/26/22 03/28/24 Teetee Velazquez PA-C [address] [place] [address] 423325 Physician Operations Systems Specialist 05/11/23 Teetee Velazquez PA-C [address] [place] [address] 594765 Assigned Surgical Provider 07/01/23 Cora Shah, JERRY Personal Advocate & Liaison (PAL) Nurse 07/09/23 09/29/23 [place] [address] [address] [address] Assigned Musculoskeletal Provider 08/20/23 Cristal Cooper, JERRY Lead Electric Meter Setter Primary Care - CC 04/27/2404/08 Shannon Rowland PA-C [address] [place] [address] Assigned PCP 04/29/24 05/28/24 Lanie Foster, RD, LD [address] [place] [address] Registered Dietitian Nutrition 05/15/24 [place] [address] [place] [address] Assigned PCP 05/29/24 Melonie Caro [facility] [address] [place] [address] Pharmacist Pharmacist 06/05/24 Federico Linda MD 6405 [facility] [address] [place], [place] [address] Cardiovascular Disease 06/13/24 Melonie Caro [facility] [address] [place] [address] Assigned MTM Pharmacist 06/29/24 Virgie Lobato, PAAnthonyC [address] [place] [address] [phone] Assigned Nephrology Provider 07/30/24 Barry Ybarra MD [address] [place] [address] Hospitalist Infectious Diseases 08/31/24 Barry Ybarra MD [address] [place] [address] Assigned Infectious Disease Provider 10/27/24 documented as of this encounter
--- OUTSIDE RECORDS SUMMARY | 2024-11-12 17:23 | XMS_ITS | Encounter Summary ---
Author Organization [facility] Address [address] [place] [address] Care Team Providers Care Technical Implementation Lead Name Role Phone Sheryl Stringer Kirk BENITEZ Unavailable [phone] Fedreico Linda MD Unavailable [phone] Trina CarbajalC Primary Care Provider + [phone] Carlos Livingston MD Unavailable Jelena vailable Trina CarbajalC Unavailable [phone] Jc Zavala MD Unavailable [phone] Barbi Manzo RN Unavailable Unavailable Erasto Root MD Unavailable Cristofer Michelle MD Unavailable [phone] Vivien Blanchard MD Unavailable [phone] Vivien Blanchard MD Unavailable [phone] Virgie LobatoC Unavailable [phone] Teetee VelazquezC Unavailable [phone] Teetee Velazquez Kathy PA-C Unavailable [phone] Cora Shah RN Unavailable Moreno Brad DO Unavailable [phone] Mary Garcia MD Primary Care Provider [phone] Cristal Cooper RN Unavailable Shannon Rowland PA-C Unavailable [phone], LD Unavailabl e Mary Garcia MD Unavailable Melonie Caro [facility] Unavailable Federico Linda MD Unavailable Melonie Caro [facility] Unavailable Virgie LobatoC Unavailable Barry Ybarra MD Unavailable [phone] Barry Ybarra MD Unavailable Encounter Details Date Type Department Care Team (Late st Contact Info) Description 10/18/2022 MyC Medical Advice [facility] Specialty [address] [address] Sapna Hernandez MD [address] [place] [address] Social History Tobacco Use Types Packs/Day Years Used Date Smoking Tobacco: Never Smokeless Tobacco: Never Alcohol Use Standard Drinks/Week Comments No 0 (1 standard drink = 0.6 oz pur e alcohol) PHQ-2 Answer Date Recorded PHQ-2 Score 0 09/09/2022 Comments No Sex and Gender Information Value Date Recorded Sex Assigned at Female 07/18/2020 1:16 PM EQUIPMENT APPLICATION SPECIALIST Legal Sex Female 3:23 AM EQUIPMENT APPLICATION SPECIALIST Gender Identity Female 07/18/2020 1:16 PM EQUIPMENT APPLICATION SPECIALIST Sexual Orientation Straight 07/18/2020 1: 16 PM EQUIPMENT APPLICATION SPECIALIST 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 No / Unsure 10/20/2022 10:53 AM CDT documented as of this encounter Plan of Treatment Upcoming Encounters Date Type Department Care Team (Late st Contact Info) Description 11/16/2024 1:00 PM CDT Allied Health/Nurse Visit [facility] Urology [address] [address] Lucero Britt PA-C 500 [place], [place] [phone] 11/16/2024 2:45 PM CDT Office Visit [facility] Urology [address] [address] Vivien Blanchard MD 420 [facility] 394 [place] [address] 11/20/2024 3:30 PM CDT Office Visit [facility] [address] [place] [phone] [place] [address] [place] [address] 11/22/2024 9:15 AM CDT Office Visit [facility] Heart [facility] [address] [facility] [address] [place] [phone] Federico Linda MD [address] [facility] [address] [place], [place] [address] 11/30/2024 10:30 AM CDT Lab [facility] [address] [place] [phone] 12/06/2024 10:10 AM CDT Office Visit [facility] 6525 [facility] 200 [place] [address] Virgie Lobato PA-C 909 [place] [address] 12/28/2024 11:00 AM CDT Office Visit [facility] 2945 [facility] 200 [place] [address] Barry Ybarra MD [address] [place] [address] 01/26/2025 11:30 AM CDT Office Visit [address] [address] [place] [address] [place] [address] documented as of this encounter Goals Goal Patient Goal Type Associated Problems Recent Progress Patient-Stated? Author Problem Solving General On track( 019 9:24 AM EQUIPMENT APPLICATION SPECIALIST) Yes Sheryl Stringer RD Note: My Goal: [...] Out COVID-19 07/16/2024 07/16/2024 07/16/2024 11:04 PM EQUIPMENT APPLICATION SPECIALIST Rule Out COVID-19 09/01/2024 09/01/202409/0109/01/2024 2:05 AM CDT Rule Out COVID-19 09/21/2024 09/21/2024 09/21/2024 3:25 PM CDT Assessment Noted Time PHQ-9 Depression Total Score: 4 09/10/19 23 9:48 AM CDT documented as of this encounter Care Teams Technical Implementation Lead Relationship Specialty Start Date End Date Trina Carbajal PA-C [address] [place] [address] PCP - General Family Medicine 05/19/20 04/10/24 [place] [address] [place] [address] PCP - General Family Medicine 04/11/[address] [place] [address] Graphics Programmer Dietitian, Registered 11/03/17 Federico Linda MD [address] [place] [address] Assigned Heart and Vascular Provider 03/29/20 Carlos Livingston MD NO INFO AVAILABLE Assigned Endocrinology Provider 12/20/20 12/18/22 Trina Carbajal PA-C [address] [place] [address] Assigned PCP 12/20/20 04/28/24 Jc Zavala MD [place] [facility] [address] [place] [address] Hematology & Oncology 08/07/21 Barbi Manzo RN Personal Advocate & Liaison (PAL) Family Medicine 12/24/21 07/08/23 [place] [address] [place] [address] Assigned Musculoskeletal Provider 04/04/22 08/19/23 Cristofer Michelle MD [address] [place], [place] [address]B [address] [place] [address] Gastroenterology 07/28/22 Vivien Blanchard MD 420 [facility] 394 [place] [address] Urology 07/28/22 Vivien Blanchard MD 420 [facility] 394 [place] [address] Assigned Surgical Provider 07/25/22 06/30/23 Virgie Lobato PA-C [address] [place] [address] Assigned Nephrology Provider 09/26/22 03/28/24 Teetee Velazquez PA-C [address] [place] [address] Physician Chairman President And Chief Executive Officer 05/11/23 Teetee Velazquez PA-C [address] [place] [address] Assigned Surgical Provider 07/01/23 Cora Shah RN Personal Advocate & Liaison (PAL) Nurse 07/09/23 09/29/23 [place] [address] [address] [place] [address] Assigned Musculoskeletal Provider 08/20/23 Cristal Cooper, RN Lead Commercial Horticulture Instructor Primary Care - CC 04/27/2404/08 Shannon Rowland PA-C [address] [place] [phone] Assigned PCP 04/29/24 05/28/24 Lanie Foster, RD, LD [address] [place] [address]275 Registered Dietitian Nutrition 05/15/24 [place] [address] [place] [address] Assigned PCP 05/29/24 Melonie Caro Gin [address] [place] [address] Pharmacist Pharmacist 06/05/24 Federico Linda MD [address] [facility] [address] [place] [address] Cardiovascular Disease 06/13/24 Melonie Caro [facility] [address] [place] [address] Assigned MTM Pharmacist 06/29/24 Virgie Lobato PA-C [address] [place] [address] Assigned Nephrology Provider 07/30/24 Barry Ybarra MD [address] [place] [address] Hospitalist Infectious Diseases 08/31/24 Barry Ybarra MD [address] [place] [address] Assigned Infectious Disease Provider 10/27/24 documented as of this encounter
--- OUTSIDE RECORDS SUMMARY | 2024-11-12 17:23 | XMS_ITS | Encounter Summary ---
Author Organization [place] Address [address] [place] [address] Care Team Providers Care Punch Operator Name Role Phone Sheryl Stringer Kirk BENITEZ Unavailable [phone] Federico Linda MD Unavailable [phone] Trina CarbajalC Primary Care Provider Carlos Livingston MD Unavailable Jelena vailable Trina Carbajal PA-C Unavailable [phone] Mari Funes RN Unavailable Unavailable Jc Zavala MD Unavailable [phone] Barbi Manzo RN Unavailable Unavailable Erasto Root MD Unavailable Cristofer Michelle MD Unavailable [phone] Vivien Blanchard MD Unavailable [phone] Sapna Hernandez MD Unavailable Vivien Blanchard MD Unavailable [phone] Virgie LobatoC Unavailable [phone] Teetee Velazquez PA-C Unavailable [phone] Teetee Velazquez-C Unavailable [phone] Coar Shah RN Unavailable Brad Mayer Unavailable [phone] Mary Garcia MD Primary Care Provider Cristal Cooper RN Unavailable Shannon Rowland PA-C Unavailable [phone], LD Unavailabl e Mary Garcia MD Unavailable Melonie Caro [facility] Unavailable Federico Linda MD Unavailable Melonie Caro [facility] Unavailable Virgie Lobato-C Unavailable [phone] Barry Ybarra MD Unavailable Barry Ybarra MD Unavailable [phone] Encounter Details Date Type Department Care Team (Late st Contact Info) Description 03/04/2021 MyC Medical Advice [facility] [address] [facility] [address] 200 [place] [address] [facility] MICHELLE [facility] [place] [address] Social History Tobacco Use Types Packs/Day Years Used Date Smoking Tobacco: Never Smokeless Tobacco: Never Alcohol Use Standard Drinks/Week Comments No 0 (1 standard drink = 0.6 oz pur e alcohol) PHQ-2 Answer Date Recorded PHQ-2 Score 0 08/23/2020 Comments No Sex and Gender Information Value Date Recorded Sex Assigned at Female 07/18/2020 1:16 PM STATE APPELLATE CLERK Legal Sex Female 3:23 AM STATE APPELLATE CLERK Gender Identity Female 07/18/2020 1:16 PM STATE APPELLATE CLERK Sexual Orientation Straight 07/18/2020 1: 16 PM STATE APPELLATE CLERK 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 No / Unsure 02/27/2021 8:28 AM CDT documented as of this encounter Plan of Treatment Upcoming Encounters Date Type Department Care Team (Late st Contact Info) Description 11/16/2024 1:00 PM CDT Allied Health/Nurse Visit [facility] Urology [address] [address] Lucero Britt PA-C 500 [place], [place] [phone] 11/16/2024 2:45 PM CDT Office Visit [facility] Urology [address] [phone] Vivien Blanchard MD 420 [facility] 394 [place], [place] [phone] 11/20/2024 3:30 PM CDT Office Visit [address] [phone] Mary Garcia MD [address] [place] [address] 11/22/2024 9:15 AM CDT Office Visit [facility] Heart [facility] [address] [facility] [address] [place] [phone] Federico Linda MD 6401 [facility] [address] [place], [place] [address] 11/30/2024 10:30 AM CDT Lab [facility] Laboratory [address] [place] [address] 12/06/2024 10:10 AM CDT Office Visit [facility] [address] [phone] Virgie Lobato PANilesh 909 [place] [address] 12/28/2024 11:00 AM CDT Office Visit [facility] [address] [place] [phone] Barry Ybarra MD [address] [place] [address] 01/26/2025 11:30 AM CDT Office [facility] [address] [place] [address] [place] [address] [place] [address] documented as of this encounter Goals Goal Patient Goal Type Associated Problems Recent Progress Patient-Stated? Author Problem Solving General On track( 9:24 AM STATE APPELLATE CLERK) Yes Sheryl Stringer RD Note: My Goal: [...] Out COVID-19 2021 2021 04/25/2021 12:41 PM STATE APPELLATE CLERK Rule Out COVID-19 06/14/2022 06/14/2022 06/14/2022 11:30 AM STATE APPELLATE CLERK Rule Out COVID-19 07/03/2022 07/03/2022 07/04/2022 12:27 AM STATE APPELLATE CLERK Rule Out COVID-19 04/01/2024 04/01/2024 04/01/2024 10:07 PM CDT ESBL 07/05/2024 08/24/2024 Rule Out COVID-19 07/16/2024 07/16/2024 07/16/2024 11:04 PM STATE APPELLATE CLERK Rule Out COVID-19 09/01/2024 09/01/2024 09/01/2024 2:05 AM CDT Rule Out COVID-19 09/21/2024 09/21/2024 09/21/2024 3:25 PM CDT Assessment Noted Time PHQ-9 Depression Total Score: 6 08/25/19 21 7:03 AM CDT documented as of this encounter Care Teams Punch Operator Relationship Specialty Start Date End Date Trina Carbajal PA-C [address] [place] [address] PCP - General Family Medicine 05/19/20 04/10/24 [place] [address] [place] [address] PCP - General Family Medicine 04/11/[address] [facility] [address] [place] [address] [place] [address] Pen Tester Dietitian, Registered 11/03/17 Federico Linda MD [address] [place] [address] Assigned Heart and Vascular Provider 03/29/20 Carlos Livingston MD NO INFO AVAILABLE Assigned Endocrinology Provider 12/20/20 12/18/22 Trina Carbajal, PA-C 6405 [facility] [address] [address] [place] [address] Assigned PCP 12/20/20 04/28/24 Mari Funes, JERRY Personal Advocate & Liaison (PAL) Nurse 01/24/21 06/12/21 Jc Zavala MD [facility] [address] 100 [place] [address] Hematology & Oncology 08/07/21 Barbi Manzo, JERRY Personal Advocate & Liaison (PAL) Family Medicine 12/24/21 07/08/23 [place] [address] [place] [address] Assigned Musculoskeletal Provider 04/04/22 08/19/23 Cristofer Michelle MD [address] [place] [address] 1[address] [place], [place] 300385 Gastroenterology 07/28/22 Vivien Blanchard MD [address] [place] [address] Urology 07/28/22 Sapna Hernandez MD [address] [place] [phone] Assigned Nephrology Provider 07/11/22 09/25/22 Vivien Blanchard MD [address] [place] [address] [phone] Assigned Surgical Provider 07/25/22 06/30/23 Virgie Lobato PA-C [address] [place] [address] Assigned Nephrology Provider 09/26/22 03/28/24 Teetee Velazquez PA-C [address] [place] [address] Physician Director Financial Systems 05/11/23 Teetee Velazquez PA-C [address] [place] [address] Assigned Surgical Provider 07/01/23 Cora Shah, JERRY Personal Advocate & Liaison (PAL) Nurse 07/09/23 09/29/23 [place] [address] [address] [address] Assigned Musculoskeletal Provider 08/20/23 Cristal Cooper, JERRY Lead Study Abroad Coordinator Primary Care - CC 04/27/2404/08 Shannon Rowland PA-C [address] [place] [address] Assigned PCP 04/29/24 05/28/24 Lanie Foster, RD, LD [address] [place] [address] Registered Dietitian Nutrition 05/15/24 [place] [address] [address] [address] Assigned PCP 05/29/24 Melonie Caro [facility] [address] [place] [address] Pharmacist Pharmacist 06/05/24 Federico Linda MD [address] [place], [place] 322145 Cardiovascular Disease 06/13/24 Melonie Caro [facility] [address] [place] [address] Assigned MTM Pharmacist 06/29/24 Virgie Lobato, PA-C [address] [place] [address] 858245 Assigned Nephrology Provider 07/30/24 Barry Ybarra MD [address] [place] [address] Hospitalist Infectious Diseases 08/31/24 Barry Ybarra MD [address] [place] [address] Assigned Infectious Disease Provider 10/27/24 documented as of this encounter
--- OUTSIDE RECORDS SUMMARY | 2024-11-12 17:23 | XMS_ITS | Encounter Summary ---
Author Organization [place] Address [address] [place] [address] Care Team Providers Care Senior Data Architect Name Role Phone Sheryl Stringer Kirk BENITEZ Unavailable [phone] Federico Linda MD Unavailable [phone] Trina CarbajalC Primary Care Provider + [phone] Carlos Livingston MD Unavailable Jelena vailable Trina CarbajalC Unavailable [phone] Jc Zavala MD Unavailable [phone] Barbi Manzo RN Unavailable Unavailable Erasto Root MD Unavailable Cristofer Michelle MD Unavailable [phone] Vivien Blanchard MD Unavailable [phone] Vivien Blanchard MD Unavailable [phone] Virgie LobatoC Unavailable [phone] Teetee VelazquezC Unavailable Teteee Velazquez PA-C Unavailable [phone] Cora Shah RN Unavailable Moreno Brad DO Unavailable [phone] Mary Garcia MD Primary Care Provider Cristal Cooper RN Unavailable Shannon Rowland PA-C Unavailable [phone], LD Unavailabl e Mary Garcia MD Unavailable Melonie Caro [facility] Unavailable Federico Linda MD Unavailable [phone] Melonie Caro [facility] Unavailable Virgie Lobato PA-C Unavailable Barry Ybarra MD Unavailable Barry Ybarra MD Unavailable Encounter Details Date Type Department Care Team (Late st Contact Info) Description 10/23/2022 [facility] [place] [address] [place] [address] [address] [place] [address] Teetee Velazquez PA-C [address] [place] [address] 270745 Social History Tobacco Use Types Packs/Day Years Used Date Smoking Tobacco: Never Smokeless Tobacco: Never Alcohol Use Standard Drinks/Week Comments No 0 (1 standard drink = 0.6 oz pur e alcohol) PHQ-2 Answer Date Recorded PHQ-2 Score 0 09/09/2022 Comments No Sex and Gender Information Value Date Recorded Sex Assigned at Female 07/18/2020 1:16 PM SCREENING TECHNICIAN Legal Sex Female 3:23 AM SCREENING TECHNICIAN Gender Identity Female 07/18/2020 1:16 PM SCREENING TECHNICIAN Sexual Orientation Straight 07/18/2020 1: 16 PM SCREENING TECHNICIAN 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 No / Unsure 10/20/2022 10:53 AM CDT documented as of this encounter Plan of Treatment Upcoming Encounters Date Type Department Care Team (Late st Contact Info) Description 11/16/2024 1:00 PM CDT Allied Health/Nurse Visit [facility] Urology [address] [place] [address] Lucero Britt PA-C 500 [place], [place] [phone] 11/16/2024 2:45 PM CDT Office Visit [facility] Urology [address] [address] Vivien Blanchard MD 420 [facility] 394 [place], [place] [address] 11/20/2024 3:30 PM CDT Office Visit [facility] [address] [place] [phone] [place] [address] [place] [address] 11/22/2024 9:15 AM CDT Office Visit [facility] Heart [facility] [address] [facility] [address] [place] [phone] Federico Linda MD 640 [facility] [address] [place], [place] [address] 11/30/2024 10:30 AM CDT Lab [facility] Laboratory [address] [place] [address] 12/06/2024 10:10 AM CDT Office Visit [facility] 6525 [facility] 200 [place] [address] Virgie Lobato PA-C 909 [place] [address] 12/28/2024 11:00 AM CDT Office Visit [facility] 2945 [facility] 200 [place] [address] Barry Ybarra MD [address] [place] [address] 01/26/2025 11:30 AM CDT Office Visit [facility] [address] [place] [phone] [place] [address] [place] [address] documented as of this encounter Goals Goal Patient Goal Type Associated Problems Recent Progress Patient-Stated? Author Problem Solving General On track( 019 9:24 AM SCREENING TECHNICIAN) Yes Sheryl Stringer RD Note: My Goal: [...] Out COVID-19 07/16/2024 07/16/2024 07/16/2024 11:04 PM SCREENING TECHNICIAN Rule Out COVID-19 09/01/2024 09/01/2024 09/01/2024 2:05 AM CDT Rule Out COVID-19 09/21/2024 09/21/2024 09/21/2024 3:25 PM CDT Assessment Noted Time PHQ-9 Depression Total Score: 4 09/10/19 23 9:48 AM CDT documented as of this encounter Care Teams Senior Data Architect Relationship Specialty Start Date End Date Trina Carbajal PA-C [address] [place] [address] PCP - General Family Medicine 05/19/20 04/10/24 [place] [address] [place] [address] PCP - General Family Medicine 04/11/24 Sheryl Stringer, ELI [address] [place] [address] Spoke Maker Dietitian, Registered 11/03/17 Federico Linda MD [address] [place] [address] Assigned Heart and Vascular Provider 03/29/20 Carlos Livingston MD NO INFO AVAILABLE Assigned Endocrinology Provider 12/20/20 12/18/22 Trina Carbajal PA-C [address] [place] [address] Assigned PCP 12/20/20 04/28/24 Jc Zavala MD [facility] [address] [place] [address] Hematology & Oncology 08/07/21 Barbi Manzo, JERRY Personal Advocate & Liaison (PAL) Family Medicine 12/24/21 07/08/23 [place] [address] [address] Assigned Musculoskeletal Provider 04/04/22 08/19/23 Cristofer Michelle MD [address] [place], [place] [address] [address] [place] [address] Gastroenterology 07/28/22 Vivien Blanchard MD 420 [facility] 394 [place], [place] 765635 Urology 07/28/22 Vivien Blanchard MD 420 [facility] 394 [place], [place] 806905 Assigned Surgical Provider 07/25/22 06/30/23 Virgie Lobato PA-C [address] [place] [address] Assigned Nephrology Provider 09/26/22 03/28/24 Teetee Velazquez PA-C [address] [place] [address] Physician Varnish Filterer 05/11/23 Teetee Velazquez PA-C [address] [place] [address] Assigned Surgical Provider 07/01/23 Cora Shah RN Personal Advocate & Liaison (PAL) Nurse 07/09/23 09/29/23 [place] [address] [address]A [facility] 300 [place] [address] Assigned Musculoskeletal Provider 08/20/23 Cristal Cooper, RN Lead Show Design Supervisor Primary Care - CC 04/27/2404/08 Shannon Rowland PA-C [address] [place] [phone] Assigned PCP 04/29/24 05/28/24 Lanie Foster, RD, LD [address] [place] [id number] Registered Dietitian Nutrition 05/15/24 [place] [address] [place] [address] Assigned PCP 05/29/24 Melonie Caro [facility] [address] [place] [address] Pharmacist Pharmacist 06/05/24 Federico Linda MD [address] [facility] [address] [place] [address]25 Cardiovascular Disease 06/13/24 Melonie Caro [facility] [address] [place] [address] Assigned MTM Pharmacist 06/29/24 Virgie Lobato PA-C [address] [place] [address] Assigned Nephrology Provider 07/30/24 Barry Ybarra MD [address] [place] [address] Hospitalist Infectious Diseases 08/31/24 Barry Ybarra MD [address] [place] [address] Assigned Infectious Disease Provider 10/27/24 documented as of this encounter
--- OUTSIDE RECORDS SUMMARY | 2024-11-12 17:23 | XMS_ITS | Encounter Summary ---
Author Organization [place] Address [address] [place] [address] Care Team Providers Care Print Project Manager Name Role Phone Sheryl Stringer Kirk BENITEZ Unavailable [phone] Federico Linda MD Unavailable [phone] Trina CarbajalC Primary Care Provider Carlos Livingston MD Unavailable Jelena vailable Trina Carbajal PA-C Unavailable [phone] Mari Funes RN Unavailable Unavailable Jc Zavala MD Unavailable [phone] Barbi Manzo RN Unavailable Unavailable Erasto Root MD Unavailable Cristofer Michelle MD Unavailable [phone] Vivien Blanchard MD Unavailable [phone] Sapna Hernandez MD Unavailable Vivien Blanchard MD Unavailable [phone] Virgie LobatoC Unavailable Teetee Velazquez-C Unavailable Teetee Velazquez PA-C Unavailable [phone] Cora Shah RN Unavailable [phone] Moreno Brad Unavailable [phone] Mary Garcia MD Primary Care Provider [phone] Cristal Cooper RN Unavailable Shannon Rowland PA-C Unavailable [phone], LD Unavailabl e Mary Garcia MD Unavailable Melonie Caro [facility] Unavailable Federico Linda MD Unavailable [phone] Melonie Caro [facility] Unavailable Virgie Lobato PA-C Unavailable [phone] Barry Ybarra MD Unavailable Barry Ybarra MD Unavailable [phone] Encounter Details Date Type Department Care Team (Late st Contact Info) Description 04/09/2021 [facility] [address] [address] Cora Shah, JERRY Social History Tobacco Use Types Packs/Day Years Used Date Smoking Tobacco: Never Smokeless Tobacco: Never Alcohol Use Standard Drinks/Week Comments No 0 (1 standard drink = 0.6 oz pur e alcohol) PHQ-2 Answer Date Recorded PHQ-2 Score 1 04/08/2021 Comments No Sex and Gender Information Value Date Recorded Sex Assigned at Female 07/18/2020 1:16 PM BUFFING LINE SET UP WORKER Legal Sex Female 3:23 AM BUFFING LINE SET UP WORKER Gender Identity Female 07/18/2020 1:16 PM BUFFING LINE SET UP WORKER Sexual Orientation Straight 07/18/2020 1: 16 PM BUFFING LINE SET UP WORKER 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 file Not [...] Allied Health/Nurse Visit [facility] Urology [address] [place] [address] Lucero Britt PA-C 500 [place], [place] [phone] 11/16/2024 2:45 PM CDT Office Visit [facility] Urology [address] [address] Vivein Blanchard MD 420 [facility] 394 [place] [address] 11/20/2024 3:30 PM CDT Office Visit [facility] [address] [place] [phone] [place] [address] [place] [address] 11/22/2024 9:15 AM CDT Office Visit [facility] Heart [facility] [address] [facility] [address] [place] [address] Federico Linda MD 6406 [facility] [address] [place], [place] [address] 11/30/2024 10:30 AM CDT Lab [facility] Laboratory [address] [place] [address] 12/06/2024 10:10 AM CDT Office Visit [facility] [address] [phone] Virgie Lobato PA-C 909 [place] [address] 12/28/2024 11:00 AM CDT Office Visit [facility] [address] [phone] Barry Ybarra MD [address] [place] [address] 01/26/2025 11:30 AM CDT Office Visit [facility] [address] [place] [phone] [place] [address] [place] [address] documented as of this encounter Goals Goal Patient Goal Type Associated Problems Recent Progress Patient-Stated? Author Problem Solving General On track( 019 9:24 AM BUFFING LINE SET UP WORKER) Yes Sheryl Stringer RD Note: My [...] Out COVID-19 2021 2021 04/25/2021 12:41 PM BUFFING LINE SET UP WORKER Rule Out COVID-19 06/14/2022 06/14/2022 06/14/2022 11:30 AM BUFFING LINE SET UP WORKER Rule Out COVID-19 07/03/2022 07/03/2022 07/04/2022 12:27 AM BUFFING LINE SET UP WORKER Rule Out COVID-19 04/01/2024 04/01/2024 04/01/2024 10:07 PM CDT ESBL 07/05/2024 08/24/2024 Rule Out COVID-19 07/16/2024 07/16/2024 07/16/2024 11:04 PM BUFFING LINE SET UP WORKER Rule Out COVID-19 09/01/2024 09/01/2024 09/01/2024 2:05 AM CDT Rule Out COVID-19 09/21/2024 09/21/2024 09/21/2024 3:25 PM CDT Assessment Noted Time PHQ-9 Depression Total Score: 2 03/19/20 7:02 AM CDT documented as of this encounter Care Teams Print Project Manager Relationship Specialty Start Date End Date Trina Carbajal PA-C [address] [place] [address] PCP - General Family Medicine 05/19/20 04/10/24 [place] [address] [place] [address] PCP - General Family Medicine 04/11/[address] [place] [address] [employer] Professional [employer] Dietitian, Registered 11/03/17 Federico Linda MD [address] [place] [address] Assigned Heart and Vascular Provider 03/29/20 Carlos Livingston MD NO INFO AVAILABLE Assigned Endocrinology Provider 12/20/20 12/18/22 Trina Carbajal PA-C [address] [place] [address] Assigned PCP 12/20/20 04/28/24 Mari Funes, JERRY Personal Advocate & Liaison (PAL) Nurse 01/24/21 06/12/21 Jc Zavala MD [facility] [address] [place] [address] Hematology & Oncology 08/07/21 Barbi Manzo, JERRY Personal Advocate & Liaison (PAL) Family Medicine 12/24/21 07/08/23 [place] [address] [address] Assigned Musculoskeletal Provider 04/04/22 08/19/23 Cristofer Michelle MD [address] [place] [address] Gastroenterology 07/28/22 Vivien Blanchard MD [address] [place] [address] 611395 Urology 07/28/22 Sapna Hernandez MD [address] [place] [address] 120525 Assigned Nephrology Provider 07/11/22 09/25/22 Vivien Blanchard MD [address] [place] [address] 556755 Assigned Surgical Provider 07/25/22 06/30/23 Virgie Lobato, GIUSEPPEC [address] [place] [address] Assigned Nephrology Provider 09/26/22 03/28/24 Teetee Velazquez PA-C 909 [place] [address] Physician Solar Installation Foreman 05/11/23 Teetee Velazquez PA-C 909 [place] [address] Assigned Surgical Provider 07/01/23 Cora Shah, JERRY Personal Advocate & Liaison (PAL) Nurse 07/09/23 09/29/23 [place] [address] [address] Assigned Musculoskeletal Provider 08/20/23 Cristal Cooper, JERRY Lead Infantry Weapons Crewmember Primary Care - CC 04/27/2404/08 Shannon Rowland PA-C [address] [place] [address] Assigned PCP 04/29/24 05/28/24 Lanie Foster, RD, LD [address] [place] [address] Registered Dietitian Nutrition 05/15/24 [place] [address] [place] [address] Assigned PCP 05/29/24 Melonie Caro [facility] [address] [place] [address] Pharmacist Pharmacist 06/05/24 Federico Linda MD [address] [place] [address] Cardiovascular Disease 06/13/24 Melonie Caro [facility] [address] [place] [address] Assigned MTM Pharmacist 06/29/24 Virgie Lobato, PAAnthonyC [address] [place] [address] Assigned Nephrology Provider 07/30/24 Barry Ybarra MD [address] [place] [address] Hospitalist Infectious Diseases 08/31/24 Barry Ybarra MD [address] [place] [address] Assigned Infectious Disease Provider 10/27/24 documented as of this encounter
--- OUTSIDE RECORDS SUMMARY | 2024-11-12 17:23 | XMS_ITS | Encounter Summary ---
Author Organization [facility] Address [address] [place] [address] Care Team Providers Care Refinery Operator Assistant Name Role Phone Sheryl Stringer Kirk BENITEZ Unavailable [phone] Federico Linda MD Unavailable [phone] Trina CarbajalC Primary Care Provider Carlos Livingston MD Unavailable Jelena vailable Trina Carbajal PA-C Unavailable [phone] Mari Funes RN Unavailable Unavailable Jc Zavala MD Unavailable [phone] Barbi Manzo RN Unavailable Unavailable Erasto Root MD Unavailable Cristofer Michelle MD Unavailable [phone] Vivien Blanchard MD Unavailable [phone] Sapna Hernandez MD Unavailable Vivien Blanchard MD Unavailable [phone] Virgie LobatoC Unavailable [phone] Teetee Velazquez PA-C Unavailable [phone] Teetee Velazquez-C Unavailable [phone] Cora Shah RN Unavailable Brad Mayer Unavailable [phone] Mary Garcia MD Primary Care Provider Cristal Cooper RN Unavailable Shannon Rowland PA-C Unavailable [phone], LD Unavailabl e Mary Garcia MD Unavailable Melonie Caro [facility] Unavailable Federico Linda MD Unavailable Melonie Caro [facility] Unavailable Virgie Lobato-C Unavailable [phone] Barry Ybarra MD Unavailable Barry Ybarra MD Unavailable [phone] Encounter Details Date Type Department Care Team (Late st Contact Info) Description 03/04/2021 MyC Medical Advice [facility] [address] [facility] [address] [place] [address] [facility] MICHELLE [facility] [place] [address] Social History Tobacco Use Types Packs/Day Years Used Date Smoking Tobacco: Never Smokeless Tobacco: Never Alcohol Use Standard Drinks/Week Comments No 0 (1 standard drink = 0.6 oz pur e alcohol) PHQ-2 Answer Date Recorded PHQ-2 Score 0 08/23/2020 Comments No Sex and Gender Information Value Date Recorded Sex Assigned at Female 07/18/2020 1:16 PM FLUMER Legal Sex Female 3:23 AM FLUMER Gender Identity Female 07/18/2020 1:16 PM FLUMER Sexual Orientation Straight 07/18/2020 1: 16 PM FLUMER 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 Not [...] 11/16/2024 1:00 PM CDT Allied Health/Nurse Visit [facility] Urology [address] [address] Lucero Britt PA-C 500 [place], [place] [phone] 11/16/2024 2:45 PM CDT Office Visit [facility] Urology [address] [phone] Vivien Blanchard MD 420 [facility] 394 [place], [place] [phone] 11/20/2024 3:30 PM CDT Office Visit [address] [phone] Mary Garcia MD [address] [place] [address] 11/22/2024 9:15 AM CDT Office Visit [facility] Heart [facility] [address] [facility] [address] [place] [phone] Federico Linda MD 6407 [facility] [address] [place], [place] [address] 11/30/2024 10:30 AM CDT Lab [facility] [address] [place] [address] 12/06/2024 10:10 AM CDT Office Visit [facility] [address] [phone] Virgie Lobato PANilesh 909 [place] [address] 12/28/2024 11:00 AM CDT Office Visit [facility] [address] [place] [phone] Barry Ybarra MD [address] [place] [address] 01/26/2025 11:30 AM CDT Office [facility] [address] [place] [phone] [place] [address] [place] [address] documented as of this encounter Goals Goal Patient Goal Type Associated Problems Recent Progress Patient-Stated? Author Problem Solving General On track( 9:24 AM FLUMER) Yes Sheryl Stringer RD Note: My Goal: [...] Out COVID-19 2021 2021 04/25/2021 12:41 PM FLUMER Rule Out COVID-19 06/14/2022 06/14/2022 06/14/2022 11:30 AM FLUMER Rule Out COVID-19 07/03/2022 07/03/2022 07/04/2022 12:27 AM FLUMER Rule Out COVID-19 04/01/2024 04/01/2024 04/01/2024 10:07 PM CDT ESBL 07/05/2024 08/24/2024 Rule Out COVID-19 07/16/2024 07/16/2024 07/16/2024 11:04 PM FLUMER Rule Out COVID-19 09/01/2024 09/01/2024 09/01/2024 2:05 AM CDT Rule Out COVID-19 09/21/2024 09/21/2024 09/21/2024 3:25 PM CDT Assessment Noted Time PHQ-9 Depression Total Score: 6 08/25/19 21 7:03 AM CDT documented as of this encounter Care Teams Refinery Operator Assistant Relationship Specialty Start Date End Date Trina Carbajal PA-C [address] [place] [address] PCP - General Family Medicine 05/19/20 04/10/24 [place] [address] [place] [address] PCP - General Family Medicine 04/11/[address] [facility] [address] [place] [address] [place] [address] Skiver Machine Operator Dietitian, Registered 11/03/17 Federico Linda MD [address] [place] [address] Assigned Heart and Vascular Provider 03/29/20 Carlos Livingston MD NO INFO AVAILABLE Assigned Endocrinology Provider 12/20/20 12/18/22 Trina Carbajal, PA-C [address] [facility] [place] [address] [place] [address] Assigned PCP 12/20/20 04/28/24 Mari Funes, JERRY Personal Advocate & Liaison (PAL) Nurse 01/24/21 06/12/21 Jc Zavala MD [facility] [address] [place] [address] Hematology & Oncology 08/07/21 Barbi Manzo, JERRY Personal Advocate & Liaison (PAL) Family Medicine 12/24/21 07/08/23 [place] [address] [place] [address] Assigned Musculoskeletal Provider 04/04/22 08/19/23 Cristofer Michelle MD [address] [place] [address] [address] [place], [place] [address] Gastroenterology 07/28/22 Vivien Blanchard MD [address] [place] [address] Urology 07/28/22 Sapna Hernandez MD [address] [place] [phone] Assigned Nephrology Provider 07/11/22 09/25/22 Vivien Blanchard MD [address] [place] [address] [phone] Assigned Surgical Provider 07/25/22 06/30/23 Virgie Lobato PA-C [address] [place] [address] Assigned Nephrology Provider 09/26/22 03/28/24 Teetee Velazquez PA-C [address] [place] [address] Physician Business Performance Analyst 05/11/23 Teetee Velazquez PA-C [address] [place] [address] Assigned Surgical Provider 07/01/23 Cora Shah, JERRY Personal Advocate & Liaison (PAL) Nurse 07/09/23 09/29/23 [place] [address] [address] [address] Assigned Musculoskeletal Provider 08/20/23 Cristal Cooper, JERRY Lead Multi Mission Helicopter Aircrewman Primary Care - CC 04/27/2404/08 Shannon Rowland PA-C [address] [place] [phone] Assigned PCP 04/29/24 05/28/24 Lanie Foster, RD, LD [address] [place] [address] Registered Dietitian Nutrition 05/15/24 [place] [address] [place] [address] Assigned PCP 05/29/24 Melonie Caro [facility] [address] [place] [address] Pharmacist Pharmacist 06/05/24 Federico Linda MD [address] [place], [place] [address] Cardiovascular Disease 06/13/24 Melonie Caro [facility] [address] [place] [address] Assigned MTM Pharmacist 06/29/24 Virgie Lobato, PA-C [address] [place] [address] [phone] Assigned Nephrology Provider 07/30/24 Barry Ybarra MD [address] [place] [address] Hospitalist Infectious Diseases 08/31/24 Barry Ybarra MD [address] [place] [address] Assigned Infectious Disease Provider 10/27/24 documented as of this encounter
--- OUTSIDE RECORDS SUMMARY | 2024-11-12 17:23 | XMS_ITS | Encounter Summary ---
Author Organization [facility] Address [address] [place] [address] Care Team Providers Care Polisher Sand Name Role Phone Sheryl Stringer Kirk BENITEZ Unavailable [phone] Ruth Ann Munoz MD Unavailable + Flynn Ruiz MD Primary Care Provider Ruth Ann Munoz MD Unavailable + Flynn Ruiz MD Unavailable [phone] Flynn Ruiz MD Unavailable [phone] Mari Funes RN Unavailable Unavailable Ruth Ann Munoz MD Unavailable + Trina Carbajal PA-C Unavailable [phone] Federico Linda MD Unavailable [phone] Trina Carbajal PA-C Primary Care Provider + [phone] Connie Blackwell MD Unavailable [phone] Ruth Ann Munoz MD Unavailable + Carlos Livingston MD Unavailable Jelena vailable Trina Carbajal PA-C Unavailable [phone] Carlos Livingston MD Unavailable Jelena vailable Carlos Livingston MD Unavailable Jelena vailable Trina Carbajal PA-C Unavailable [phone] Mari Funes RN Unavailable Unavailable Jc Zavala MD Unavailable [phone] Barbi Manzo RN Unavailable Unavailable Earsto Root MD Unavailable Cristofer Michelle MD Unavailable [phone] Vivien Blanchard MD Unavailable [phone] Sapna Hernandez MD Unavailable Vivien Blanchard MD Unavailable [phone] Virgie Lobato PA-C Unavailable [phone] Teetee Velazquez PA-C Unavailable [phone] Teetee Velazquez PA-C Unavailable [phone] Cora Shah RN Unavailable [phone] Brad Mayer DO Unavailable Mary Garcia MD Primary Care Provider Cristal Cooper RN Unavailable Shannon Rowland PA-C Unavailable [phone], LD Unavailabl e Mary Garcia MD Unavailable Melonie Caro [facility] Unavailable Federico Linda MD Unavailable [phone] Melonie Caro [facility] Unavailable ShivamChristiano vasquezgavin Escoto PA-C Unavailable Barry Ybarra MD Unavailable [phone] Barry Ybarra MD Unavailable [phone] Encounter Details Date Type Department Care Team (Late st Contact Info) Description 04/21/2019 MyC Medical Advice [address] [place] [address] Social History Tobacco Use Types Packs/Day Years Used Date Smoking Tobacco: Never Smokeless Tobacco: Never Alcohol Use Standard Drinks/Week Comments No 0 (1 standard drink = 0.6 oz pur e alcohol) PHQ-2 Answer Date Recorded PHQ-2 Score 2 06/21/2018 Comments No Sex and Gender Information Value Date Recorded Sex Assigned at Female 07/18/2020 1:16 PM SUPERVISOR CUTTING AND BONING Legal Sex Female 3:23 AM SUPERVISOR CUTTING AND BONING Gender Identity Female 07/18/2020 1:16 PM SUPERVISOR CUTTING AND BONING Sexual Orientation Straight 07/18/2020 1: 16 PM SUPERVISOR CUTTING AND BONING 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 Not on file documented as of this encounter Plan of Treatment Upcoming Encounters Date Type Department Care Team (Late st Contact Info) Description 11/16/2024 1:00 PM CDT Allied Health/Nurse Visit [facility] Urology [address] [address] Lucero Britt PA-C 500 [place] [address] 11/16/2024 2:45 PM CDT Office Visit [facility] Urology [address] [address] Vivien Blanchard MD 420 [facility]PARTMENT 394 [place] [address] 11/20/2024 3:30 PM CDT Office Visit [facility] [address] [place] [phone] [place] [address] [place] [address] 11/22/2024 9:15 AM CDT Office Visit [facility] Heart [place] [address] [place] [phone] Federico Linda MD [address] [facility] [address] [place], [place] [address] 11/30/2024 10:[address] [facility] Laboratory [address] [place] [phone] 12/06/2024 10:10 AM CDT Office Visit [facility] 6525 [facility] 200 [place] [phone] Virgie Lobato, PA-C [address] [place] [address] 12/28/2024 11:00 AM CDT Office Visit [facility] [address] [place] [phone] Barry Ybarra MD [address] [place] [address] 200 [place] [address] 01/26/2025 11:30 AM CDT Office Visit [facility] [address] [place] [phone] [place] [address] [place], [place] [phone] documented as of this encounter Goals Goal Patient Goal Type Associated Problems Recent Progress Patient-Stated? Author Problem Solving General On track( 9:24 AM SUPERVISOR CUTTING AND BONING) Yes Sheryl Stringer RD Note: My Goal: [...] COVID-19 2021 2021 04/25/2021 12:41 PM SUPERVISOR CUTTING AND BONING Rule Out COVID-19 06/14/2022 06/14/2022 06/14/2022 11:30 AM SUPERVISOR CUTTING AND BONING Rule Out COVID-19 07/03/2022 07/03/2022 07/04/2022 12:27 AM SUPERVISOR CUTTING AND BONING Rule Out COVID-19 04/01/2024 04/01/2024 04/01/2024 10:07 PM CDT ESBL 07/05/2024 08/24/2024 Rule Out COVID-19 07/16/2024 07/16/2024 07/16/2024 11:04 PM SUPERVISOR CUTTING AND BONING Rule Out COVID-19 09/01/2024 09/01/2024 09/01/2024 2:05 AM CDT Rule Out COVID-19 09/21/2024 09/21/2024 09/21/2024 3:25 PM CDT Assessment Noted Time PHQ-9 Depression Total Score: 6 08/09/19 19 8:45 AM SUPERVISOR CUTTING AND BONING documented as of this encounter Care Teams Polisher Sand Relationship Specialty Start Date End Date Flynn Ruiz MD [facility] [address] [id number] PCP - General Family Practice 04/14/19 05/18/20 Trina Carbajal PA-C [address] [facility] [address] [place] [address] PCP - General Family Medicine 05/19/20 04/10/24 [place] [address] [place] [address] PCP - General Family Medicine 04/11/[address] [place] [address] Political Worker Dietitian, Registered 11/03/17 Ruth Ann Munoz MD [address] [place] [address] Assigned PCP 12/25/18 04/22/19 Ruth Ann Munoz MD [place] [address] [place] [address] Assigned PCP 04/30/19 05/27/19 Flynn Ruiz MD [address] [place] [address] Assigned PCP 04/23/19 04/29/19 Flynn Ruiz MD [address] [place], [place] [phone] Assigned PCP 05/28/19 07/22/19 Mari Funes, JERRY Personal Advocate & Liaison (PAL) 07/27/19 07/30/19 Ruth Ann Munoz MD [place] [address] [place] [address] Assigned PCP 07/23/19 08/12/19 Trina Carbajal PA-C [address] [place] [address] Assigned PCP 08/13/19 07/27/20 Federico Linda MD [address] [place], [place] [address] Assigned Heart and Vascular Provider 03/29/20 Connie Blackwell MD [address] [place], [place] 4[address] Assigned Endocrinology Provider 07/14/20 12/19/20 Ruth Ann Munoz MD [place] [address] [place], [place] [address] Assigned PCP 07/28/20 08/25/20 Carlos Livingston MD NO INFO AVAILABLE Assigned PCP 08/26/20 08/31/20 Trina Carbajal PA-C [address] [place] [address] Assigned PCP 09/01/20 12/07/20 Carlos Livingston MD NO INFO AVAILABLE Assigned Endocrinology Provider 12/20/20 12/18/22 Carlos Livingston MD NO INFO AVAILABLE Assigned PCP 12/08/20 12/19/20 Trina Carbajal PA-C [address] [facility] [address] [place] [address] Assigned PCP 12/20/20 04/28/24 Mari Funes, JERRY Personal Advocate & Liaison (PAL) Nurse 01/24/21 06/12/21 Jc Zavala MD [facility] [address] [place] [address] Hematology & Oncology 08/07/21 Barbi Manzo, JERRY Personal Advocate & Liaison (PAL) Family Medicine 12/24/21 07/08/23 [place] [address] [place] [address] Assigned Musculoskeletal Provider 04/04/22 08/19/23 Cristofer Michelle MD [address] [place], [place] [address]B 1[address] [place] [address] Gastroenterology 07/28/22 Vivien Blanchard MD [address] [place] [address] 394 [place] [address] Urology 07/28/22 Sapna Hernandez MD 420 [facility] EMERG[facility]PART[facility] 394 [place], [place] [address] Assigned Nephrology Provider 07/11/22 09/25/22 Vivien Blanchard MD [address] [place] [address] 528375 Assigned Surgical Provider 07/25/22 06/30/23 Virgie Lobato PA-C [address] [place] [address] [phone] Assigned Nephrology Provider 09/26/22 03/28/24 Teteee Velazquez PA-C [address] [place] [address] [phone] Physician Bench Worker Hollow Handle 05/11/23 Teetee Velazquez PA-C [address] [place] [address] [phone] Assigned Surgical Provider 07/01/23 Cora Shah RN Personal Advocate & Liaison (PAL) Nurse 07/09/23 09/29/23 [place] [address] [address] 076927 Assigned Musculoskeletal Provider 08/20/23 Cristal Cooper, JERRY Lead Tenant Relations Coordinator Primary Care - CC 04/27/2404/08 Shannon Rowland PA-C [address] [place] [phone] Assigned PCP 04/29/24 05/28/24 Lanie Foster, RD, LD [address] [place] [address] Registered Dietitian Nutrition 05/15/24 [place] [address] [place] [address] Assigned PCP 05/29/24 Melonie Caro G[facility] [address] [place] [address] Pharmacist Pharmacist 06/05/24 Federico Linda MD [address] [facility] [address] [place] [address] Cardiovascular Disease 06/13/24 Melonie Caro Gin [address] [place] [address] Assigned MTM Pharmacist 06/29/24 Virgie Lobato, PAAnthonyC [address] [place] [address] Assigned Nephrology Provider 07/30/24 Barry Ybarra MD [address] [place] [address] Hospitalist Infectious Diseases 08/31/24 Barry Ybarra MD [address] [place] [address] Assigned Infectious Disease Provider 10/27/24 documented as of this encounter
--- OUTSIDE RECORDS SUMMARY | 2024-11-12 17:23 | XMS_ITS | Encounter Summary ---
Author Organization [facility] Address [address] [place] [address] Care Team Providers Care Sales Manager Prearranged Funerals Name Role Phone Sheryl Stringer Kirk BENITEZ Unavailable [phone] Federico Linda MD Unavailable [phone] Trina CarbajalC Primary Care Provider Carlos Livingston MD Unavailable Jelena vailable Trina Carbajal PA-C Unavailable [phone] Mari Funes RN Unavailable Unavailable Jc Zavala MD Unavailable [phone] Barbi Manzo RN Unavailable Unavailable Erasto Root MD Unavailable Cirstofer Michelle MD Unavailable [phone] Vivien Blanchard MD Unavailable [phone] Sapna Hernandez MD Unavailable Vivien Blanchard MD Unavailable [phone] Virgie LobatoC Unavailable [phone] Teetee Velazquez-C Unavailable [phone] Teetee Velazquez-C Unavailable [phone] Cora Shah RN Unavailable Brad Mayer Unavailable [phone] Mary Garcia MD Primary Care Provider Cristal Cooper RN Unavailable Shannon RowlandC Unavailable [phone], LD Unavailabl e Mary Garcia MD Unavailable Melonie Caro [facility] Unavailable [phone] Federico Linda MD Unavailable [phone] Melonie Caro [facility] Unavailable Virgie LobatoC Unavailable [phone] Barry Ybarra MD Unavailable Barry Ybarra MD Unavailable [phone] Encounter Details Date Type Department Care Team (Late st Contact Info) Description 04/07/2021 [facility] [id number] [place] [address] [address] [place] [address] Federico Linda MD [address] [facility] [address] [place], [place] [id number] Social History Tobacco Use Types Packs/Day Years Used Date Smoking Tobacco: Never Smokeless Tobacco: Never Alcohol Use Standard Drinks/Week Comments No 0 (1 standard drink = 0.6 oz pur e alcohol) PHQ-2 Answer Date Recorded PHQ-2 Score 1 04/08/2021 Comments No Sex and Gender Information Value Date Recorded Sex Assigned at Female 07/18/2020 1:16 PM VALVE TECHNICIAN Legal Sex Female 3:23 AM VALVE TECHNICIAN Gender Identity Female 07/18/2020 1:16 PM VALVE TECHNICIAN Sexual Orientation Straight 07/18/2020 1: 16 PM VALVE TECHNICIAN 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 No / Unsure 04/08/2021 7:21 AM CDT documented as of this encounter Miscellaneous Notes * Telephone Encounter - Severiano Beltran RN - 04/08/2021 7:25 AM CDT Sproutt message received. RN will send to Dr. Linda for review. I received a letter to be a participant in a research study for tirzepatide. Would this be good since I am diabetic and have kidney issues? 01/22/[address] Linda 1. Dyspnea on exertion with history of PCI to the LAD 2011 ?? Plan chemical stress test due to gait instability ? 2. Hypertension, suboptimal control ?? Diuretic was discontinued, she does not know why. ?? We will reinstitute chlorthalidone 25 mg twice per week and she will check her blood pressures and let us know in a few weeks how it is going. May increase the frequency of the chlorthalidone depending on blood pressures. ? 3. Lower extremity edema ?? Should improve with diuresis. Amlodipine may be exacerbating. ?? documented in this encounter Plan of Treatment Upcoming Encounters Date Type Department Care Team (Late st Contact Info) Description 11/16/2024 1:00 PM CDT Allied Health/Nurse Visit [facility] Urology [address] [address] Lucero Britt PA-C [address] [place] [address] 11/16/2024 2:45 PM CDT Office Visit [facility] Urology [address] [phone] Vivien Blanchard MD 420 [facility] [address] [place] [address] 11/20/2024 3:30 PM CDT Office Visit [facility] [address] [place] [phone] [place] [address] [place] [address] 11/22/2024 9:15 AM CDT Office Visit [facility] Heart [facility] [address] [facility] [address] [place] [phone] Federico Linda MD [address] [facility] [address] [place], [place] [address] 11/30/2024 10:30 AM CDT Lab [facility] Laboratory [address] [place] [phone] 12/06/2024 10:10 AM CDT Office Visit [facility] 65[address] [facility] 200 [place] [address] Virgie Lobato, PA-C [address] [place] [address] 12/28/2024 11:00 AM CDT Office Visit [facility] 29[address] [facility] 200 [place] [phone] Barry Ybarra MD [address] [facility] 200 [place] [address] 01/26/2025 11:30 AM CDT Office Visit [address] [address] [place] [address] [address] documented as of this encounter Goals Goal Patient Goal Type Associated Problems Recent Progress Patient-Stated? Author Problem Solving General On track( 019 9:24 AM VALVE TECHNICIAN) Yes Sheryl Stringer RD Note: My [...] Out COVID-19 2021 2021 04/25/2021 12:41 PM VALVE TECHNICIAN Rule Out COVID-19 06/14/2022 06/14/2022 06/14/2022 11:30 AM VALVE TECHNICIAN Rule Out COVID-19 07/03/2022 07/03/2022 07/04/2022 12:27 AM VALVE TECHNICIAN Rule Out COVID-19 04/01/2024 04/01/2024 04/01/2024 10:07 PM CDT ESBL 07/05/2024 08/24/2024 Rule Out COVID-19 07/16/2024 07/16/2024 07/16/2024 11:04 PM VALVE TECHNICIAN Rule Out COVID-19 09/01/2024 09/01/2024 09/01/2024 2:05 AM CDT Rule Out COVID-19 09/21/2024 09/21/2024 09/21/2024 3:25 PM CDT Assessment Noted Time PHQ-9 Depression Total Score: 2 03/19/20 21 7:02 AM CDT documented as of this encounter Care Teams Sales Manager Prearranged Funerals Relationship Specialty Start Date End Date Trina Carbajal PA-C [address] [place] [address] PCP - General Family Medicine 05/19/20 04/10/24 [place] [address] [address] PCP - General Family Medicine 04/11/[address] [place] [address] Garment Sewing Machine Operator Dietitian, Registered 11/03/17 Federico Linda MD [address] [facility] [address] [place] [address] Assigned Heart and Vascular Provider 03/29/20 Carlos Livingston MD NO INFO AVAILABLE Assigned Endocrinology Provider 12/20/20 12/18/22 Trina Carbajal, PA-C [address] [facility] [address] [facility] [address] [place] [address] Assigned PCP 12/20/20 04/28/24 Mari Funes, JERRY Personal Advocate & Liaison (PAL) Nurse 01/24/21 06/12/21 Jc Zavala MD [facility] [address] [facility] [address] [place] [address] Hematology & Oncology 08/07/21 Barbi Manzo, JERRY Personal Advocate & Liaison (PAL) Family Medicine 12/24/21 07/08/23 [place] [address] [place] [address] Assigned Musculoskeletal Provider 04/04/22 08/19/23 Cristofer Michelle MD [address] [place] [address] Gastroenterology 07/28/22 Vivien Blanchard MD [address] [place] [address] Urology 07/28/22 Sapna Hernandez MD [address] [address] Assigned Nephrology Provider 07/11/22 09/25/22 Vivien Blanchard MD [address] [place] [address] 526825 Assigned Surgical Provider 07/25/22 06/30/23 Virgie Lobato PA-C [address] [place] [address] Assigned Nephrology Provider 09/26/22 03/28/24 Teetee Velazquez PA-C [address] [place] [address] Physician Textile [employer]s Sales Representative 05/11/23 Teetee Velazquez PA-C [address] [place] [address] Assigned Surgical Provider 07/01/23 Cora Shah RN Personal Advocate & Liaison (PAL) Nurse 07/09/23 09/29/23 [place] [address] [address] [address] Assigned Musculoskeletal Provider 08/20/23 Cristal Cooper, RN Lead Cloth Reeler Primary Care - CC 04/27/2404/08 Shannon Rowland PA-C [address] [place] [phone] Assigned PCP 04/29/24 05/28/24 Lanie Foster, RD, LD [address] [place] [place] 189025 Registered Dietitian Nutrition 05/15/24 [place] [address] [place], [place] [address] Assigned PCP 05/29/24 Melonie Caro [facility] [address] [place], [place] [address] Pharmacist Pharmacist 06/05/24 Federico Linda MD [address] [place] [address] Cardiovascular Disease 06/13/24 Melonie Caro [facility] [address] [place], [place] [address] Assigned MTM Pharmacist 06/29/24 Virgie Lobato PA-C [address] [place] [place], [place] 5028[address] Assigned Nephrology Provider 07/30/24 Barry Ybarra MD [address] [place] [address] Hospitalist Infectious Diseases 08/31/24 Barry bYarra MD [address] [place] [address] Assigned Infectious Disease Provider 10/27/24 documented as of this encounter
--- OUTSIDE RECORDS SUMMARY | 2024-11-12 17:23 | XMS_ITS | Encounter Summary ---
Author Organization [facility] Address [address] [place] [address] Care Team Providers Care Metal Cut Off Saw Tender Name Role Phone Sheryl Stringer Kirk BENITEZ Unavailable [phone] Ruth Ann Munoz MD Unavailable + Flynn Ruiz MD Primary Care Provider Ruth Ann Munoz MD Unavailable + Flynn Ruiz MD Unavailable [phone] Flynn Ruiz MD Unavailable [phone] Mari Funes RN Unavailable Unavailable Ruth Ann Munoz MD Unavailable + Trina Carbajal PA-C Unavailable [phone] Federico Linda MD Unavailable [phone] Trina Carbajal PA-C Primary Care Provider + [phone] Connie Blackwell MD Unavailable [phone] Ruth Ann Munoz MD Unavailable + Carlos Livingston MD Unavailable Jelena vailable Trina Carbajal PA-C Unavailable [phone] Carlos Livingston MD Unavailable Jelena vailable Carlos Livingston MD Unavailable Jelena vailable Trina Carbajal PA-C Unavailable [phone] Mari Funes RN Unavailable Unavailable Jc Zavala MD Unavailable [phone] Barbi Manzo RN Unavailable Unavailable Erasto Root MD Unavailable Cristofer Michelle MD Unavailable [phone] Vivien Blanchard MD Unavailable [phone] Sapna Hernandez MD Unavailable Vivien Blanchard MD Unavailable [phone] Virgie Lobato PA-C Unavailable [phone] Teetee Velazquez PA-C Unavailable [phone] Teetee Velazquez PA-C Unavailable [phone] Cora Shah RN Unavailable [phone] Brad Mayer DO Unavailable [phone] Mary Garcia MD Primary Care Provider Cristal Cooper RN Unavailable Shannon Rowland PA-C Unavailable [phone], LD Unavailabl e Mary Garcia MD Unavailable Melonie Caro [facility] Unavailable Federico Linda MD Unavailable [phone] Melonie Caro [facility] Unavailable ShivamChristiano vasquezgavin Escoto PA-C Unavailable Barry Ybarra MD Unavailable Barry Ybarra MD Unavailable [phone] Encounter Details Date Type Department Care Team (Late st Contact Info) Description 04/21/2019 [facility] Medical Advice [address] [place] [address] Social History Tobacco Use Types Packs/Day Years Used Date Smoking Tobacco: Never Smokeless Tobacco: Never Alcohol Use Standard Drinks/Week Comments No 0 (1 standard drink = 0.6 oz pur e alcohol) PHQ-2 Answer Date Recorded PHQ-2 Score 2 06/21/2018 Comments No Sex and Gender Information Value Date Recorded Sex Assigned at Female 07/18/2020 1:16 PM ACQUISITIONS EDITOR Legal Sex Female 3:23 AM ACQUISITIONS EDITOR Gender Identity Female 07/18/2020 1:16 PM ACQUISITIONS EDITOR Sexual Orientation Straight 07/18/2020 1: 16 PM ACQUISITIONS EDITOR 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 Not on file Not on file documented as of this encounter Plan of Treatment Upcoming Encounters Date Type Department Care Team (Late st Contact Info) Description 11/16/2024 1:00 PM CDT Allied Health/Nurse Visit [facility] Urology [address] [address] Lucero Britt PA-C 500 [place] [address] 11/16/2024 2:45 PM CDT Office Visit [facility] [address] [address] Vivien Blanchard MD 420 [facility] [address] [place] [address] 11/20/2024 3:30 PM CDT Office Visit [facility] [address] [place] [phone] [place] [address] [place] [address] 11/22/2024 9:15 AM CDT Office Visit [facility] Heart [facility] [address] [employer] [address] [place] [phone] Federico Linda MD [address] [facility] [address] [place], [place] [address] 11/30/2024 10:30 AM CDT Lab [facility] Laboratory [address] [place] [address] 12/06/2024 10:10 AM CDT Office Visit [facility] 6525 [facility] 200 [place] [address] Virgie Lobato, PA-C [address] [place] [address] 12/28/2024 11:00 AM CDT Office Visit [facility] [address] [place] [phone] Barry Ybarra MD [address] [place] [address] 200 [place] [address] 01/26/2025 11:30 AM CDT Office Visit [facility] [address] [place] [phone] [place] [address] [place], [place] [phone] documented as of this encounter Goals Goal Patient Goal Type Associated Problems Recent Progress Patient-Stated? Author Problem Solving General On track( 9:24 AM ACQUISITIONS EDITOR) Yes Sheryl Stringer RD Note: My Goal: [...] Out COVID-19 2021 2021 04/25/2021 12:41 PM ACQUISITIONS EDITOR Rule Out COVID-19 06/14/2022 06/14/2022 06/14/2022 11:30 AM ACQUISITIONS EDITOR Rule Out COVID-19 07/03/2022 07/03/2022 07/04/2022 12:27 AM ACQUISITIONS EDITOR Rule Out COVID-19 04/01/2024 04/01/2024 04/01/2024 10:07 PM CDT ESBL 07/05/2024 08/24/2024 Rule Out COVID-19 07/16/2024 07/16/2024 07/16/2024 11:04 PM ACQUISITIONS EDITOR Rule Out COVID-19 09/01/2024 09/01/2024 09/01/2024 2:05 AM CDT Rule Out COVID-19 09/21/2024 09/21/2024 09/21/2024 3:25 PM CDT Assessment Noted Time PHQ-9 Depression Total Score: 6 08/09/19 19 8:45 AM ACQUISITIONS EDITOR documented as of this encounter Care Teams Metal Cut Off Saw Tender Relationship Specialty Start Date End Date Flynn Ruiz MD [facility] [address] [id number] PCP - General Family Practice 04/14/19 05/18/20 Trina Carbajal PA-C [address] [facility] [address] [place] [address] PCP - General Family Medicine 05/19/20 04/10/24 [place] [address] [place] [address] PCP - General Family Medicine 04/11/[address] [place] [address] Secretary Board Of Commissioners Dietitian, Registered 11/03/17 Ruth Ann Munoz MD [place] [address] [place] [address] Assigned PCP 12/25/18 04/22/19 Ruth Ann Munoz MD [place] [address] [place] [address] Assigned PCP 04/30/19 05/27/19 Flynn Ruiz MD [address] [place] [address] Assigned PCP 04/23/19 04/29/19 Flynn Ruiz MD [address] [place], [place] [id number] Assigned PCP 05/28/19 07/22/19 Mari Funes, JERRY Personal Advocate & Liaison (PAL) 07/27/19 07/30/19 Ruth Ann Munoz MD [place] [address] [place] [address] Assigned PCP 07/23/19 08/12/19 Trina Carbajal PA-C [address] [place] [address] Assigned PCP 08/13/19 07/27/20 Federico Linda MD [address] [place], [place] [address] Assigned Heart and Vascular Provider 03/29/20 Connie Blackwell MD [address] [place], [place] [address] Assigned Endocrinology Provider 07/14/20 12/19/20 Ruth Ann Munoz MD [place] [address] [place], [place] [address] Assigned PCP 07/28/20 08/25/20 Carlos Livingston MD NO INFO AVAILABLE Assigned PCP 08/26/20 08/31/20 Trina Carbajal PA-C [address] [place] [address] Assigned PCP 09/01/20 12/07/20 Carlos Livingston MD NO INFO AVAILABLE Assigned Endocrinology Provider 12/20/20 12/18/22 Carlos Livingston MD NO INFO AVAILABLE Assigned PCP 12/08/20 12/19/20 Trina Carbajal PA-C [address] [facility] [address] [place] [address] Assigned PCP 12/20/20 04/28/24 Mari Funes, JERRY Personal Advocate & Liaison (PAL) Nurse 01/24/21 06/12/21 Jc Zavala MD [facility] [address] [place] [address] Hematology & Oncology 08/07/21 Barbi Manzo, JERRY Personal Advocate & Liaison (PAL) Family Medicine 12/24/21 07/08/23 [place] [address] [place] [address] Assigned Musculoskeletal Provider 04/04/22 08/19/23 Cristofer Michelle MD [address] [place], [place] [address]B [address] [place] [address] Gastroenterology 07/28/22 Vivien Blanchard MD [address] [place] [address] [address] [place] [address] Urology 07/28/22 Sapna Hernandez MD 420 [facility] [address] [place], [place] [address] Assigned Nephrology Provider 07/11/22 09/25/22 Vivien Blanchard MD [address] [place] [address] 384895 Assigned Surgical Provider 07/25/22 06/30/23 Virgie Lobato PA-C [address] [place] [address] 060515 Assigned Nephrology Provider 09/26/22 03/28/24 Teetee Velazquez PA-C [address] [place] [address] 407075 Physician Silk Weaver 05/11/23 Teetee Velazquez PA-C [address] [place] [address] [id number] Assigned Surgical Provider 07/01/23 Cora Shah RN Personal Advocate & Liaison (PAL) Nurse 07/09/23 09/29/23 [place] [address] [address] Assigned Musculoskeletal Provider 08/20/23 Cristal Cooper, JERRY Lead Arc Welder Apprentice Primary Care - CC 04/27/2404/08 Shannon Rowland PA-C [address] [place] [address] Assigned PCP 04/29/24 05/28/24 Lanie Foster, RD, LD [address] [place] [address] Registered Dietitian Nutrition 05/15/24 [place] [address] [place] [address] Assigned PCP 05/29/24 Melonie Caro [place] [address] [place] [address] Pharmacist Pharmacist 06/05/24 Federico Linda MD [address] [facility] [address] [place] [address] Cardiovascular Disease 06/13/24 Melonie Caro [address] [place] [address] Assigned MTM Pharmacist 06/29/24 Virgie Lobato, PAAnthonyC [address] [place] [address] Assigned Nephrology Provider 07/30/24 Barry Ybarra MD [address] [place] [address] Hospitalist Infectious Diseases 08/31/24 Barry Ybarra MD [address] [place] [address] Assigned Infectious Disease Provider 10/27/24 documented as of this encounter
--- OUTSIDE RECORDS SUMMARY | 2024-11-12 17:23 | XMS_ITS | Encounter Summary ---
Author Organization [facility] Address [address] [place] [address] Care Team Providers Care Bioinformatics Analyst Name Role Phone Sheryl Stringer ELI Unavailable [phone] Flynn Ruiz MD Primary Care Provider Ruth Ann Munoz MD Unavailable + Flynn Ruiz MD Unavailable Mari Funes RN Unavailable Unavailable Ruth Ann Munoz MD Unavailable + Trina Carbajal PA-C Unavailable [phone] Federico Linda MD Unavailable [phone] Trina Carbajal PA-C Primary Care Provider [phone] Connie Blackwell MD Unavailable [phone] Ruth Ann Munoz MD Unavailable + Carlos Livingston MD Unavailable Jelena vailable rTina Carbajal PA-C Unavailable [phone] Carlos Livingston MD Unavailable Jelena vailable Carlos Livingston MD Unavailable Jelena vailable Trina Carbajal PA-C Unavailable [phone] Mari Funes RN Unavailable Unavailable Jc Zavala MD Unavailable [phone] Barbi Manzo RN Unavailable Unavailable Erasto Root MD Unavailable Cristofer Michelle MD Unavailable [phone] Vivien Blanchard MD Unavailable +[phone] Sapna Hernandez MD Unavailable Vivien Blanchard MD Unavailable +[phone] Virgie Lobato-C Unavailable [phone] Teetee Velazquez PA-C Unavailable [phone] Teetee Velazquez PA-C Unavailable [phone] Cora Shah RN Unavailable Brad Mayer DO Unavailable [phone] Mary Garcia MD Primary Care Provider Cristal Cooper RN Unavailable Shannon Rowland PA-C Unavailable [phone], LD Unavailabl e Mary Garcia MD Unavailable Melonie Caro [facility] Unavailable Federico Linda MD Unavailable Melonie Caro [facility] Unavailable Virgie Lobato-C Unavailable [phone] Barry Ybarra MD Unavailable [phone] Barry Ybarra MD Unavailable Encounter Details Date Type Department Care Team (Late st Contact Info) Description 05/03/2019 MyC Medical Advice [address] [place] [address] Sheryl Stringer, [address] [place] [address] Social History Tobacco Use Types Packs/Day Years Used Date Smoking Tobacco: Never Smokeless Tobacco: Never Alcohol Use Standard Drinks/Week Comments No 0 (1 standard drink = 0.6 oz pur e alcohol) PHQ-2 Answer Date Recorded PHQ-2 Score 2 06/21/2018 Comments No Sex and Gender Information Value Date Recorded Sex Assigned at Female 07/18/2020 1:16 PM MAIL MACHINE OPERATOR Legal Sex Female 3:23 AM MAIL MACHINE OPERATOR Gender Identity Female 07/18/2020 1:16 PM MAIL MACHINE OPERATOR Sexual Orientation Straight 07/18/2020 1: 16 PM MAIL MACHINE OPERATOR 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 Not on file Not on file documented as of this encounter Plan of Treatment Upcoming Encounters Date Type Department Care Team (Late st Contact Info) Description 11/16/2024 1:00 PM CDT Allied Health/Nurse Visit [facility] Urology [address] [address] Lucero Britt PA-C 500 [place], [place] 68[address] 11/16/2024 2:45 PM CDT Office Visit [facility] Urology [address] [address] Vivien Blanchard MD 420 [facility] 394 [place], [place] [address] 11/20/2024 3:30 PM CDT Office Visit [address] [phone] [place] [address] [place] [address] 11/22/2024 9:15 AM CDT Office Visit [facility] [address] [facility] [address] [place] [address] Federico Linda MD [address] [facility] [address] [place] [address] 11/30/2024 10:30 AM CDT Lab [facility] [address] [place] [phone] 12/06/2024 10:10 AM CDT Office Visit [facility] 6525 [facility] 200 [place] [address] Virgie Lobato, PA-C [address] [place] [address] 12/28/2024 11:00 AM CDT Office Visit [facility] 2945 [facility] 200 [place] [phone] Barry Ybarra MD [address] [place] [address] 01/26/2025 11:30 AM CDT Office [facility] [address] [place] [phone] [place] [address] [place] [address] documented as of this encounter Goals Goal Patient Goal Type Associated Problems Recent Progress Patient-Stated? Author Problem Solving General On track( 019 9:24 AM MAIL MACHINE OPERATOR) Yes Sheryl Stringer RD Note: My [...] Out COVID-19 2021 2021 04/25/2021 12:41 PM MAIL MACHINE OPERATOR Rule Out COVID-19 06/14/2022 06/14/2022 06/14/2022 11:30 AM MAIL MACHINE OPERATOR Rule Out COVID-19 07/03/2022 07/03/2022 07/04/2022 12:27 AM MAIL MACHINE OPERATOR Rule Out COVID-19 04/01/2024 04/01/2024 04/01/2024 10:07 PM CDT ESBL 07/05/2024 08/24/2024 Rule Out COVID-19 07/16/2024 07/16/2024 07/16/2024 11:04 PM MAIL MACHINE OPERATOR Rule Out COVID-19 09/01/2024 09/01/2024 09/01/2024 2:05 AM CDT Rule Out COVID-19 09/21/2024 09/21/2024 09/21/2024 3:25 PM CDT Assessment Noted Time PHQ-9 Depression Total Score: 6 08/09/19 8:45 AM MAIL MACHINE OPERATOR documented as of this encounter Care Teams Bioinformatics Analyst Relationship Specialty Start Date End Date Flynn Ruiz MD [facility] [address] [place] [address] BRY[place] [id number] PCP - General Family Practice 04/14/19 05/18/20 Trina Carbajal, JAMES-C [address] [facility] [address] [place] [address] PCP - General Family Medicine 05/19/20 04/10/24 [place] [address] [place] [address] PCP - General Family Medicine 04/11/[address] [place] [address] Business Services Director Dietitian, Registered 11/03/17 Ruth Ann Munoz MD [place] [address] [place] [address] Assigned PCP 04/30/19 05/27/19 Flynn Ruiz MD [address] [place] [address] Assigned PCP 05/28/19 07/22/19 Mari Funes, JERRY Personal Advocate & Liaison (PAL) 07/27/19 07/30/19 Ruth Ann Munoz MD [place] [address] [place] [address] Assigned PCP 07/23/19 08/12/19 Trina Carbajal, PAAnthonyC [address] [place] [address] Assigned PCP 08/13/19 07/27/20 Federico Linda MD [address] [place] [address] Assigned Heart and Vascular Provider 03/29/20 Connie Blackwell MD [address] [place], [place] 340160 Assigned Endocrinology Provider 07/14/20 12/19/20 Ruth Ann Munoz MD [place] [address] [facility] [address] 207 [place] [address] Assigned PCP 07/28/20 08/25/20 Carlos Livingston MD NO INFO AVAILABLE Assigned PCP 08/26/20 08/31/20 Trina Carbajal PA-C [address] [place], [place] [address] Assigned PCP 09/01/20 12/07/20 Carlos Livingston MD NO INFO AVAILABLE Assigned Endocrinology Provider 12/20/20 12/18/22 Carlos Livingston MD NO INFO AVAILABLE Assigned PCP 12/08/20 12/19/20 Trina Carbajal PA-C [address] [place], [place] [address] Assigned PCP 12/20/20 04/28/24 Mari Funes, JERRY Personal Advocate & Liaison (PAL) Nurse 01/24/21 06/12/21 Jc Zavala MD [facility] [address] [place] [address] Hematology & Oncology 08/07/21 Barbi Manzo, JERRY Personal Advocate & Liaison (PAL) Family Medicine 12/24/21 07/08/23 [place] [address] [place] [address] [address] Assigned Musculoskeletal Provider 04/04/22 08/19/23 Cristofer Michelle MD [address] [place] [address] [phone] Gastroenterology 07/28/22 Vivien Blanchard MD [address] [place] [address] 060565 Urology 07/28/22 Sapna Hernandez MD [address] [place] [address] 863805 Assigned Nephrology Provider 07/11/22 09/25/22 Vivien Blanchard MD [address] [place] [address] 986345 Assigned Surgical Provider 07/25/22 06/30/23 Virgie Lobato PA-C [address] [place] [address] 038345 Assigned Nephrology Provider 09/26/22 03/28/24 Teetee Velazquez PA-C [address] [place] [address] 528755 Physician Urban Planning Teacher 05/11/23 Teetee Velazquez PA-C [address] [place] [address] Assigned Surgical Provider 07/01/23 Cora Shah, RN Personal Advocate & Liaison (PAL) Nurse 07/09/23 09/29/23 [place] [address] [address], [address] [place], [place] 4499[address] Assigned Musculoskeletal Provider 08/20/23 Cristal Cooper, JERRY Lead Curriculum Developer Primary Care - CC 04/27/2404/08 Shannon Rowland, PA-C [address] [place] [address] Assigned PCP 04/29/24 05/28/24 Lanie Foster, RD, LD [address] [place] 231375 Registered Dietitian Nutrition 05/15/24 [place] [address] [place] [address] Assigned PCP 05/29/24 Melonie Caro [facility] [address] [place] [address] Pharmacist Pharmacist 06/05/24 Federico Linda MD [address] [facility] [address] [place] [address] Cardiovascular Disease 06/13/24 Melonie Caro [facility] [address] [place] [address] Assigned MTM Pharmacist 06/29/24 Virgie Lobato PA-C [address] [place] [address] Assigned Nephrology Provider 07/30/24 Barry Ybarra MD [address] [place] [address] Hospitalist Infectious Diseases 08/31/24 Barry Ybarra MD [address] [place] [address] Assigned Infectious Disease Provider 10/27/24 documented as of this encounter
--- OUTSIDE RECORDS SUMMARY | 2024-11-12 17:23 | XMS_ITS | Encounter Summary ---
Author Organization [facility] Address [address] [place] [address] Care Team Providers Care Sheep Shearer Name Role Phone Sheryl Stringer Kirk BENITEZ Unavailable [phone] Federico Linda MD Unavailable [phone] Trina CarbajalC Primary Care Provider + [phone] Carlos Livingston MD Unavailable Jelena vailable Trina CarbajalC Unavailable [phone] Jc Zavala MD Unavailable [phone] Barbi Manzo RN Unavailable Unavailable Erasto Root MD Unavailable Cristofer Michelle MD Unavailable [phone] Vivien Blanchard MD Unavailable [phone] Vivien Blanchard MD Unavailable [phone] Virgie LobatoC Unavailable [phone] Teetee VelazquezC Unavailable Teetee Velazquez Kathy [place]-Javi Unavailable [phone] Cora Shah RN Unavailable Moreno Brad DO Unavailable [phone] Mary Garcia MD Primary Care Provider Cristal Cooper RN Unavailable Shannon Rowland PA-C Unavailable [phone], LD Unavailabl e Mary Garcia MD Unavailable [facility] Unavailable Federico Linda MD Unavailable [phone] [facility] Caro [facility] Unavailable [phone] Virgie Lobato PA-C Unavailable [phone] Barry Ybarra MD Unavailable Barry Ybarra MD Unavailable [phone] Reason for Visit * Reason Onset Date Comments Referral 12/15/2022 Encounter Details Date Type Department Care Team (Late st Contact Info) Description 12/15/2022 [facility] Medical Advice [address] [address] Trina Carbajal PA-C [address] [facility] 200 [place] [address] Referral Social History Tobacco Use Types Packs/Day Years Used Date Smoking Tobacco: Never Smokeless Tobacco: Never Alcohol Use Standard Drinks/Week Comments No 0 (1 standard drink = 0.6 oz pur e alcohol) PHQ-2 Answer Date Recorded PHQ-2 Score 0 09/09/2022 Comments No Sex and Gender Information Value Date Recorded Sex Assigned at Female 07/18/2020 1:16 PM CLIENT REPORTING ASSOCIATE Legal Sex Female 3:23 AM CLIENT REPORTING ASSOCIATE Gender Identity Female 07/18/2020 1:16 PM CLIENT REPORTING ASSOCIATE Sexual Orientation Straight 07/18/2020 1: 16 PM CLIENT REPORTING ASSOCIATE 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 No / Unsure 12/14/2022 3:27 PM CDT documented as of this encounter Miscellaneous Notes * Telephone Encounter - Barbi Manzo RN - 12/15/2022 2:35 PM CDT See mychart. Barbi Asher RN, BSN, PHN - PAL (patient advocate liaison) [facility] documented in this encounter Plan of Treatment Upcoming Encounters Date Type Department Care Team (Late st Contact Info) Description 11/16/2024 1:00 PM CDT Allied Health/Nurse Visit [facility] Urology [address] [address] Lucero Britt PA-C 500 [place] [address] 11/16/2024 2:45 PM CDT Office Visit [facility] Urology [address] [address] Vivien Blanchard MD 420 [facility] 394 [place] [address] 11/20/2024 3:30 PM CDT Office Visit [address] [address] Mary Garcia MD [address] [place] [address] 11/22/2024 9:15 AM CDT Office Visit [facility] Heart [facility] [address] [facility] [address] [place] [phone] Federico Linda MD 6405 [facility] [address] [place] [address] 11/30/2024 10:30 AM CDT Lab [facility] [address] [place] [phone] 12/06/2024 10:10 AM CDT Office Visit [facility] 6525 [facility] 200 [place] [address] Virgie Lobato, PA-C 909 [place] [address] 12/28/2024 11:00 AM CDT Office Visit [facility] 2945 [facility] 200 [place] [address] Barry Ybarra MD 2945 [facility] 200 [place] [address] 01/26/2025 11:30 AM CDT Office Visit [facility] [address] [place] [address] [place] [address] [place] [address] documented as of this encounter Goals Goal Patient Goal Type Associated Problems Recent Progress Patient-Stated? Author Problem Solving General On track( 019 9:24 AM CLIENT REPORTING ASSOCIATE) Yes Sheryl Stringer RD Note: My Goal: [...] Out COVID-19 07/16/2024 07/16/2024 07/16/2024 11:04 PM CLIENT REPORTING ASSOCIATE Rule Out COVID-19 09/01/2024 09/01/2024 09/01/2024 2:05 AM CDT Rule Out COVID-19 09/21/2024 09/21/2024 09/21/2024 3:25 PM CDT Assessment Noted Time PHQ-9 Depression Total Score: 4 09/10/19 9:48 AM CDT documented as of this encounter Care Teams Sheep Shearer Relationship Specialty Start Date End Date Trina Carbajal PA-C [address] [place] [address] PCP - General Family Medicine 05/19/20 04/10/24 [place] [address] [place] [address] PCP - General Family Medicine 04/11/[address] [place] [address] Forestry Conservation Worker Dietitian, Registered 11/03/17 Federico Linda MD [address] [place] [address] Assigned Heart and Vascular Provider 03/29/20 Carlos Livingston MD NO INFO AVAILABLE Assigned Endocrinology Provider 12/20/20 12/18/22 Trina Carbajal PA-C [address] [place] [address] Assigned PCP 12/20/20 04/28/24 Jc Zavala MD [place] [facility] [address] [place] [address] Hematology & Oncology 08/07/21 Barbi Manzo, JERRY Personal Advocate & Liaison (PAL) Family Medicine 12/24/21 07/08/23 [place] [address] [place] [address] Assigned Musculoskeletal Provider 04/04/22 08/19/23 Cristofer Michelle MD [address] [place] [address] 330645 Gastroenterology 07/28/22 Vivien Blanchard MD [address] [place] [address] 745705 Urology 07/28/22 Vivien Blanchard MD [address] [place] [address] 933025 Assigned Surgical Provider 07/25/22 06/30/23 Virgie Lobato PA-C [address] [place] [address] 977235 Assigned Nephrology Provider 09/26/22 03/28/24 Teetee Velazquez PA-C 909 [place] [address] Physician Application Systems Engineer 05/11/23 Teetee Velazquez PA-C 9 [place] [address] Assigned Surgical Provider 07/01/23 Cora Shah, JERRY Personal Advocate & Liaison (PAL) Nurse 07/09/23 09/29/23 [place] [address] [address] 165397 Assigned Musculoskeletal Provider 08/20/23 Cristal Cooper RN Lead Computer Field Technician Primary Care - CC 04/27/2404/08 Shannon Rowland PA-C [address] [place] [address] Assigned PCP 04/29/24 05/28/24 Lanie Foster, RD, LD [address] [place] 591535 Registered Dietitian Nutrition 05/15/24 [place] [address] [place] [address] Assigned PCP 05/29/24 Melonie Caro [facility] [address] [place], [place] [address] Pharmacist Pharmacist 06/05/24 Federico Linda MD [address] [place] [address] Cardiovascular Disease 06/13/24 Melonie Caro [facility] [address] [place] [address] Assigned MTM Pharmacist 06/29/24 Virgie Lobato, PAAnthonyC [address] [place] [address] 360425 Assigned Nephrology Provider 07/30/24 Barry Ybarra MD [address] [place] [address] Hospitalist Infectious Diseases 08/31/24 Barry Ybarra MD [address] [place] [address] Assigned Infectious Disease Provider 10/27/24 documented as of this encounter
--- OUTSIDE RECORDS SUMMARY | 2024-11-12 17:23 | XMS_ITS | Encounter Summary ---
Author Organization [place] Address [address] [place] [address] Care Team Providers Care Supervisor Gas Meter Repair Name Role Phone Sheryl Stringer Kirk BENITEZ Unavailable [phone] Federico Linda MD Unavailable [phone] Trina CarbajalC Primary Care Provider + [phone] Carlos Livingston MD Unavailable Jelena vailable Trina CarbajalC Unavailable [phone] Jc Zavala MD Unavailable [phone] Barbi Manzo RN Unavailable Unavailable Erasto Root MD Unavailable Cristofer Michelle MD Unavailable [phone] Vivien Blanchard MD Unavailable [phone] Vivien Blanchard MD Unavailable [phone] Virgie LobatoC Unavailable [phone] Teetee VelazquezC Unavailable Teetee Velazquez PA-C Unavailable [phone] Cora Shah RN Unavailable Moreno Brad DO Unavailable Mary Garcia MD Primary Care Provider [phone] Cristal Cooper RN Unavailable Shannon Rowland PA-C Unavailable Lanie Foster RD, LD Unavailabl e Mary Garcia MD Unavailable Melonie Caro [facility] Unavailable Federico Linda MD Unavailable Melonie Caro [facility] Unavailable Virgie Lobato PA-C Unavailable Barry Ybarra MD Unavailable Barry Ybarra MD Unavailable Encounter Details Date Type Department Care Team (Late st Contact Info) Description 11/24/2022 [facility] Medical Advice [facility] [place] [address] [place] [address] [address] [place] [address] Teetee Velazquez PA-C [address] [place] [address] 076135 Social History Tobacco Use Types Packs/Day Years Used Date Smoking Tobacco: Never Smokeless Tobacco: Never Alcohol Use Standard Drinks/Week Comments No 0 (1 standard drink = 0.6 oz pur e alcohol) PHQ-2 Answer Date Recorded PHQ-2 Score 0 09/09/2022 Comments No Sex and Gender Information Value Date Recorded Sex Assigned at Female 07/18/2020 1:16 PM SAND CONTROL WORKER Legal Sex Female 3:23 AM SAND CONTROL WORKER Gender Identity Female 07/18/2020 1:16 PM SAND CONTROL WORKER Sexual Orientation Straight 07/18/2020 1: 16 PM SAND CONTROL WORKER 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 Not on file Not on file documented as of this encounter Plan of Treatment Upcoming Encounters Date Type Department Care Team (Late st Contact Info) Description 11/16/2024 1:00 PM CDT Allied Health/Nurse Visit [facility] Urology [address] [place] [phone] Lucero Britt PA-C 500 [place], [place] [address] 11/16/2024 2:45 PM CDT Office Visit [facility] Urology [address] [phone] Vivien Blanchard MD 420 [facility] 394 [place], [place] [address] 11/20/2024 3:30 PM CDT Office Visit [facility] [address] [place] [phone] [place] [address] [place] [address] 11/22/2024 9:15 AM CDT Office Visit [facility] Heart [facility] [address] [facility] [address] [place] [phone] Federico Linda MD 17[address] [facility] [address] [place], [place] [address] 11/30/2024 10:30 AM CDT Lab [facility] [address] [place] [phone] 12/06/2024 10:10 AM CDT Office Visit [facility] Specialty [facility] 6525 [facility] 200 [place] [address] Virgie Lobato PA-C 909 [place] [address] 12/28/2024 11:00 AM CDT Office Visit [facility] 2945 [facility] 200 [place] [phone] Barry Ybarra MD 2945 [facility] 200 [place] [address] 01/26/2025 11:30 AM CDT Office Visit [address] [address] [place] [address] [place], [place] 5017244 documented as of this encounter Goals Goal Patient Goal Type Associated Problems Recent Progress Patient-Stated? Author Problem Solving General On track( 019 9:24 AM SAND CONTROL WORKER) Yes Sheryl Stringer RD Note: My [...] Out COVID-19 07/16/2024 07/16/2024 07/16/2024 11:04 PM SAND CONTROL WORKER Rule Out COVID-19 09/01/2024 09/01/2024 09/01/2024 2:05 AM CDT Rule Out COVID-19 09/21/2024 09/21/2024 09/21/2024 3:25 PM CDT Assessment Noted Time PHQ-9 Depression Total Score: 4 09/10/19 9:48 AM CDT documented as of this encounter Care Teams Supervisor Gas Meter Repair Relationship Specialty Start Date End Date Trina Carbajal PA-C [address] [place] [address] PCP - General Family Medicine 05/19/20 04/10/24 [place] [address] [place] [address] PCP - General Family Medicine 04/11/[address] [place] [address] Fish Agent Dietitian, Registered 11/03/17 Federico Linda MD [address] [place] [address] Assigned Heart and Vascular Provider 03/29/20 Carlos Livingston MD NO INFO AVAILABLE Assigned Endocrinology Provider 12/20/20 12/18/22 Trina Carbajal PA-C [address] [place] [address] Assigned PCP 12/20/20 04/28/24 Jc Zavala MD [place] [facility] [address] [place] [address] Hematology & Oncology 08/07/21 Barbi Manzo, JERRY Personal Advocate & Liaison (PAL) Family Medicine 12/24/21 07/08/23 [place] [address] [address] [facility] 300 [place] [address] Assigned Musculoskeletal Provider 04/04/22 08/19/23 Cristofer Michelle MD [address] [place], [place] [address]B 1E [place] [address] Gastroenterology 07/28/22 Vivien Blanchard MD [address] [place] [address] 394 [place] [address] Urology 07/28/22 Vivien Blanchard MD [address] [place] [address] 394 [place] [address] Assigned Surgical Provider 07/25/22 06/30/23 Virgie Lobato PA-C [address] [place] [address] Assigned Nephrology Provider 09/26/22 03/28/24 Teetee Velazquez PA-C [address] [place] [address] 249785 Physician Brim Flexer 05/11/23 Teetee Velazquez PA-C [address] [place] [address] 501275 Assigned Surgical Provider 07/01/23 Cora Shah, JERRY Personal Advocate & Liaison (PAL) Nurse 07/09/23 09/29/23 [place] [address] [address] [facility] 300 [place] [address] Assigned Musculoskeletal Provider 08/20/23 Cristal Cooper, RN Lead Oil Spraying Machine Operator Primary Care - CC 04/27/2404/08 Shannon Rowland [place]-C [address] [place] [address] Assigned PCP 04/29/24 05/28/24 Lanie Foster, RD, LD [address] [place] 310775 Registered Dietitian Nutrition 05/15/24 [place] [address] [place], [place] [phone] Assigned PCP 05/29/24 Melonie Caro [facility] [address] [place], [place] [address] Pharmacist Pharmacist 06/05/24 Federico Linda MD [address] [facility] [address] [place] 26[address]85 Cardiovascular Disease 06/13/24 Melonie Caro [facility] [address] [place], [place] 1247[address] Assigned MTM Pharmacist 06/29/24 Virgie Lobato PA-C 909 [place], [place] 418645 Assigned Nephrology Provider 07/30/24 Barry Ybarra MD [address] [place] [address] Hospitalist Infectious Diseases 08/31/24 Barry Ybarra MD [address] [place] [address] Assigned Infectious Disease Provider 10/27/24 documented as of this encounter
--- OUTSIDE RECORDS SUMMARY | 2024-11-12 17:23 | XMS_ITS | Encounter Summary ---
Author Organization [facility] Address [address] [place] [address] Care Team Providers Care Radio Despatcher Name Role Phone Sheryl Stringer ELI Unavailable [phone] Flynn Ruiz MD Primary Care Provider Ruth Ann Munoz MD Unavailable + Flynn Ruiz MD Unavailable Mari Funes RN Unavailable Unavailable Ruth Ann Munoz MD Unavailable + Trina Carbajal PA-C Unavailable [phone] Federico Linda MD Unavailable [phone] Trina Carbajal PA-C Primary Care Provider [phone] Connie Blackwell MD Unavailable [phone] Ruth [...] [phone] Vivien Blanchard MD Unavailable [phone] Sapna Hernandez MD Unavailable Vivien Blanchard MD Unavailable [phone] Vrigie Lobato-C Unavailable [phone] Teetee Velazquez PA-C Unavailable [phone] Teetee Velazquez PA-C Unavailable [phone] Cora Shah RN Unavailable Brad Mayer DO Unavailable [phone] Mary Garcia MD Primary Care Provider Cristal Cooper RN Unavailable Shannon Rowland PA-C Unavailable [phone], LD Unavailabl e Mary Garcia MD Unavailable Melonie Caro [facility] Unavailable Federico Linda MD Unavailable Melonie Caro [facility] Unavailable Virgie Lobato-C Unavailable [phone] Barry Ybarra MD Unavailable Barry Ybarra MD Unavailable Encounter Details Date Type Department Care Team (Late st Contact Info) Description 05/03/2019 MyC Medical Advice [address] [place] [address] Sheryl Stringer, [address] [place] [address] Social History Tobacco Use Types Packs/Day Years Used Date Smoking Tobacco: Never Smokeless Tobacco: Never Alcohol Use Standard Drinks/Week Comments No 0 (1 standard drink = 0.6 oz pur e alcohol) PHQ-2 Answer Date Recorded PHQ-2 Score 2 06/21/2018 Comments No Sex and Gender Information Value Date Recorded Sex Assigned at Female 07/18/2020 1:16 PM GUEST SERVICE HOST Legal Sex Female 3:23 AM GUEST SERVICE HOST Gender Identity Female 07/18/2020 1:16 PM GUEST SERVICE HOST Sexual Orientation Straight 07/18/2020 1: 16 PM GUEST SERVICE HOST 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 Not on file Not on file documented as of this encounter Plan of Treatment Upcoming Encounters Date Type Department Care Team (Late st Contact Info) Description 11/16/2024 1:00 PM CDT Allied Health/Nurse Visit [facility] Urology [address] [address] Lucero Britt PA-C 500 [place], [place] 9736[address] 11/16/2024 2:45 PM CDT Office Visit [facility] [address] [address] Vivien Blanchard MD 420 [facility] 394 [place], [place] [address] 11/20/2024 3:30 PM CDT Office Visit [address] [phone] [place] [address] [place] [address] 11/22/2024 9:15 AM CDT Office Visit [facility] [address] [facility] [address] [place] [phone] Federico Linda MD 6405 [facility] [address] [place] [address] 11/30/2024 10:30 AM CDT Lab [facility] [address] [place] [phone] 12/06/2024 10:10 AM CDT Office Visit [facility] 6525 [facility] 200 [place] [address] Virgie oLbato, PA-C [address] [place] [address] 12/28/2024 11:00 AM CDT Office Visit [facility] 2945 [facility] 200 [place] [phone] Barry Ybarra MD [address] [place] [address] 01/26/2025 11:30 AM CDT Office Visit [facility] [address] [place] [phone] [place] [address] [place] [address] documented as of this encounter Goals Goal Patient Goal Type Associated Problems Recent Progress Patient-Stated? Author Problem Solving General On track( 019 9:24 AM GUEST SERVICE HOST) Yes Sheryl Stringer RD Note: My Goal: [...] Out COVID-19 2021 2021 04/25/2021 12:41 PM GUEST SERVICE HOST Rule Out COVID-19 06/14/2022 06/14/2022 06/14/2022 11:30 AM GUEST SERVICE HOST Rule Out COVID-19 07/03/2022 07/03/2022 07/04/2022 12:27 AM GUEST SERVICE HOST Rule Out COVID-19 04/01/2024 04/01/2024 04/01/2024 10:07 PM CDT ESBL 07/05/2024 08/24/2024 Rule Out COVID-19 07/16/2024 07/16/2024 07/16/2024 11:04 PM GUEST SERVICE HOST Rule Out COVID-19 09/01/2024 09/01/2024 09/01/2024 2:05 AM CDT Rule Out COVID-19 09/21/2024 09/21/2024 09/21/2024 3:25 PM CDT Assessment Noted Time PHQ-9 Depression Total Score: 6 08/09/19 8:45 AM GUEST SERVICE HOST documented as of this encounter Care Teams Radio Despatcher Relationship Specialty Start Date End Date [facility] [address] [place] [address] BRYANT [place]ON [id number] PCP - General Family Practice 04/14/19 05/18/20 Trina Carbajal, JAMES-C 6405 [facility] [address] [place] [address] PCP - General Family Medicine 05/19/20 04/10/24 [place] [address] [place] [address] PCP - General Family Medicine 04/11/[address] [place] [address] Corporate Safety Coordinator Dietitian, Registered 11/03/17 Ruth Ann Munoz MD [place] [address] [place] [address] Assigned PCP 04/30/19 05/27/19 Flynn Ruiz MD [address] [place] [address] Assigned PCP 05/28/19 07/22/19 Mari Funes, JERRY Personal Advocate & Liaison (PAL) 07/27/19 07/30/19 Ruth Ann Munoz MD [place] [address] [place] [address] Assigned PCP 07/23/19 08/12/19 Trina Carbajal, PAAnthonyC [address] [place] [address] Assigned PCP 08/13/19 07/27/20 Federico Linda MD [address] [place] [address] Assigned Heart and Vascular Provider 03/29/20 Connie Blackwell MD [address] [place], [place] 6[address]80 Assigned Endocrinology Provider 07/14/20 12/19/20 Ruth Ann Munoz MD [place] 7447 [facility] [address] 207 [place], [place] 936388 Assigned PCP 07/28/20 08/25/20 Carlos Livingston MD NO INFO AVAILABLE Assigned PCP 08/26/20 08/31/20 Trina Carbajal PA-C [address] [place], [place] [address]115 Assigned PCP 09/01/20 12/07/20 Carlos Livingston MD NO INFO AVAILABLE Assigned Endocrinology Provider 12/20/20 12/18/22 Carlos Livingston MD NO INFO AVAILABLE Assigned PCP 12/08/20 12/19/20 Trina Carbajal PA-C [address] [place], [place] 156415 Assigned PCP 12/20/20 04/28/24 Mari Funes, JERRY Personal Advocate & Liaison (PAL) Nurse 01/24/21 06/12/21 Jc Zavala MD [facility] [address] [place] [address] Hematology & Oncology 08/07/21 Barbi Manzo, JERRY Personal Advocate & Liaison (PAL) Family Medicine 12/24/21 07/08/23 [place] [address] [place] [address] [address] Assigned Musculoskeletal Provider 04/04/22 08/19/23 Cristofer Michelle MD [address] [place] [address] 164625 Gastroenterology 07/28/22 Vivien Blanchard MD [address] [place] [address] 140205 Urology 07/28/22 Sapna Hernandez MD [address] [place] [address] 089495 Assigned Nephrology Provider 07/11/22 09/25/22 Vivien Blanchard MD [address] [place] [address] 289615 Assigned Surgical Provider 07/25/22 06/30/23 Virgie Lobato PA-C [address] [place] [address] 047385 Assigned Nephrology Provider 09/26/22 03/28/24 Teetee Velazquez PA-C [address] [place] [address] 968395 Physician Phytopathologist 05/11/23 Teetee Velazquez PA-C [address] [place] [address] Assigned Surgical Provider 07/01/23 Cora Shah, RN Personal Advocate & Liaison (PAL) Nurse 07/09/23 09/29/23 [place] [address] [address], [address] [place], [place] 039197 Assigned Musculoskeletal Provider 08/20/23 Cristal Cooper, JERRY Lead Torch [facility] - CC 04/27/2404/08 Shannon Rowland, PA-C [address] [place] [address] Assigned PCP 04/29/24 05/28/24 Lanie Foster, RD, LD [address] [place] 507[address] Registered Dietitian Nutrition 05/15/24 [place] [address] [place] [address] Assigned PCP 05/29/24 Melonie Caro [facility] [address] [place] [address] Pharmacist Pharmacist 06/05/24 Federico Linda MD [address] [facility] [address] [place] [address] Cardiovascular Disease 06/13/24 Melonie Caro [facility] [address] [place] [address] Assigned MTM Pharmacist 06/29/24 Virgie Lobato PA-C [address] [place] [address] Assigned Nephrology Provider 07/30/24 Barry Ybarra MD [address] [place] [address] Hospitalist Infectious Diseases 08/31/24 Barry Ybarra MD [address] [place] [address] Assigned Infectious Disease Provider 10/27/24 documented as of this encounter
--- OUTSIDE RECORDS SUMMARY | 2024-11-12 17:24 | XMS_ITS | Encounter Summary ---
Author Organization [facility] Address [address] [place] [address] Care Team Providers Care Forest Fire Fighters Dispatcher Name Role Phone Sheryl Stringer RD Unavailable [phone] Federico Linda MD Unavailable [phone] Jc Zavala MD Unavailable [phone] Cristofer Michelle MD Unavailable Vivien Blanchard MD Unavailable [phone] Teetee Velazquez-Javi Unavailable [phone] Teetee Velazquez PA-C Unavailable Brad Mayer DO Unavailable [phone] Mary Garcia MD Primary Care Provider Lanie Foster RD, LD Unavailabl e Mary Garcia MD Unavailable Melonie Caro [facility] Unavailable Federico Linda MD Unavailable [phone] VaniaMelonie duarte [facility] Unavailable [phone] Virgie Lobato PA-C Unavailable [phone] Barry Ybarra MD Unavailable [phone] Encounter Details Date Type Department Care Team (Latest Contact Info) Description 10/25/2024 Travel Social History Tobacco Use Types Packs/Day Years [...] re latives? Twice a week 10/21/2024 Attends [employer] Services Not on file 10/21 Active Member of Clubs or Organizations Not on f ile 10/21/2024 Attends Club or Organization Meetings Not on dian e 10/21/2024 Marital Status Not on file 10/21/2024 PHQ-2 Answer Date Recorded PHQ-2 Score 0 10/26/2024 [facility] Occup[facility] ional [facility] - Occupational Stress [...] in an abandoned building, in an overnight fpc, or couch-surfing.) Yes 10/21/2024 Are you worried [...] Assigned at Female 07/18/2020 1:16 PM SUPERVISOR OF GUIDANCE AND TESTING Legal Sex Female 3:23 AM SUPERVISOR OF GUIDANCE AND TESTING Gender Identity Female 07/18/2020 1:16 PM SUPERVISOR OF GUIDANCE AND TESTING Sexual Orientation Straight 07/18/2020 1: 16 PM SUPERVISOR OF GUIDANCE AND TESTING 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 Not on file Not on file documented as of this encounter Plan of Treatment Upcoming Encounters Date Type Department Care Team (Late st Contact Info) Description 11/16/2024 1:00 PM CDT Allied Health/Nurse Visit [facility] [address] [address] Lucero Britt PA-C [address] [place] [address] 0650[address] 11/16/2024 2:45 PM CDT Office Visit [facility] [address] [place] [phone] Vivien Blanchard MD 420 [facility] 394 [place], [place] [address] 11/20/2024 3:30 PM CDT Office Visit [facility] [address] [place] [phone] [place] [address] [place] [address] 11/22/2024 9:15 AM CDT Office Visit [facility] [address] [facility] [address] [place] [phone] Federico Linda MD 6407 [facility] [address] [place], [place] [address] 11/30/2024 10:30 AM CDT Lab [facility] [address] [place] [address] 12/06/2024 10:10 AM CDT Office Visit [facility] [address] [phone] Virgie Lobato, PA-C 909 [place] [address] 12/28/2024 11:00 AM CDT Office Visit [facility] 2945 [facility] 200 [place] [phone] [place] [address] [place] [address] 200 [place] [address] 01/26/2025 11:30 AM CDT Office Visit [address] [address] [place] [address] [place] [address] documented as of this encounter Goals Goal Patient Goal Type Associated Problems Recent Progress Patient-Stated? Author Problem Solving General On track( 019 9:24 AM SUPERVISOR OF GUIDANCE AND TESTING) Yes Sheryl Stringer RD Note: My Goal: [...] documented as of this encounter Care Teams Forest Fire Fighters Dispatcher Relationship Specialty [place] [address] [place] [address] PCP - General Family Medicine 04/11/24 Sheryl Stringer, RD [address] [place] [address] Movie Theater Usher Dietitian, Registered 11/03/17 Federico Linda MD 6405 [facility] [address] [place] 408825 Assigned Heart and Vascular Provider 03/29/20 Jc Zavala MD [facility] [address] [place] [address] Hematology & Oncology 08/07/21 Cristofer Michelle MD [address] [place] [address] PM[address] [place] [address] Gastroenterology 07/28/22 Vivien Blanchard MD 420 [facility] 394 [place], [place] 427645 Urology 07/28/22 Teetee Velazquez PA-C 909 [place], [place] 466535 Physician Clinical Science Liaison 05/11/23 Teetee Velazquez PA-C 909 [place], [place] 745475 Assigned Surgical Provider 07/01/23 [place] [address] [address] Assigned Musculoskeletal Provider 08/20/23 Lanie Foster, RD, LD [address] [place] 218445 Registered Dietitian Nutrition 05/15/24 [place] [address] [place] [address] Assigned PCP 05/29/24 Melonie Caro [facility] [address] [place] [address] Pharmacist Pharmacist 06/05/24 Federico Linda MD [address] [place] [address] Cardiovascular Disease 06/13/24 Melonie Caro [facility] [address] [place] [address] Assigned [place] Pharmacist 06/29/24 Virgie Lobato, PA-C [address] [place] [address] Assigned Nephrology Provider 07/30/24 Barry Ybarra MD [facility] [address] [address] Hospitalist Infectious Diseases 08/31/24 documented as of this encounter
--- OUTSIDE RECORDS SUMMARY | 2024-11-12 17:24 | XMS_ITS | Encounter Summary ---
Author Organization [facility] Address [address] [place] [address] Care Team Providers Care Experimental Rocketsled Mechanic Name Role Phone Sheryl Stringer RD Unavailable [phone] Federico Linda MD Unavailable [phone] Jc Zavala MD Unavailable [phone] Cristofer Michelle MD Unavailable [phone] Vivien Blanchard MD Unavailable Teetee Velazquez-Javi Unavailable Teetee Velazquez PA-C Unavailable Brad Mayer DO Unavailable [phone] Mary Garcia MD Primary Care Provider Lanie Foster RD, LD Unavailabl e Mary Garcia MD Unavailable Melonie Caro [facility] Unavailable Federico Linda MD Unavailable [phone] VaniaMelonie duarte [facility] Unavailable [phone] Virgie Lobato PA-C Unavailable [phone] Barry Ybarra MD Unavailable [phone] Encounter Details Date Type Department Care Team (Late st Contact Info) Description 10/19/2024 Telephone [facility] Clinic [address] 4th [place] [address] Klaudia Jensen, RN Social History Tobacco Use Types Packs/Day [...] in an overnight chcf, or couch-surfing.) Yes 09/01/2024 Are you worried [...] Sex Assigned at Female 07/18/2020 1:16 PM CHANNEL MARKETING MANAGER Legal Sex Female 3:23 AM CHANNEL MARKETING MANAGER Gender Identity Female 07/18/2020 1:16 PM CHANNEL MARKETING MANAGER Sexual Orientation Straight 07/18/2020 1: 16 PM CHANNEL MARKETING MANAGER 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 Patient scheduled Klaudia Jensen RN, BSN, PHN Acupuncturist Urology [facility] [phone] * Telephone Encounter - Klaudia Jensen RN - 10/19/2024 10:41 AM CDT ----- Message from Ira Luz sent at 10/11/2024 3:49 PM CDT ----- Regarding: RE: LATRICIA & Dr Blanchard Appt Emmanuel, I will need some help coordinating both appointments for the same day. I added nurse Efrain to this message. Best regards, Ira Luz ----- Message ----- From: Ame Arora Sent: 10/10/2024 11:15 AM CDT To: [facility]ordin[facility] Subject: FW: VUDS & Dr Blanchard Appt I just spoke to this pt and she is ready to schedule. Plz try her again (msg below). Thanks :) ----- Message ----- From: Ame Arora Sent: 09/13/2024 10:36 AM CDT To: Clinic Coordinators[facility] Subject: VUDS & Dr Blanchard Appt Please call pt to schedule VUDS and then see Dr Blanchard. Pt was given bladder diary, hat and VUDS info sheet. Thanks! :) documented in this encounter Plan of Treatment Upcoming Encounters Date Type Department Care Team (Late st Contact Info) Description 11/16/2024 1:00 PM CDT Allied Health/Nurse Visit [facility] Urology [address] [phone] Lucero Britt PA-C 500 [place], [place] [address] 11/16/2024 2:45 PM CDT Office Visit [facility]rology [address] [phone] Vivien Blanchard MD 420 [facility] 394 [place], [place] [address] 11/20/2024 3:30 PM CDT Office Visit [facility] [address] [place] [phone] [place] [address] [place] [address] 11/22/2024 9:15 AM CDT Office [facility] [address] [place] [address] [address] [place] [phone] Federico Linda MD [address] [facility] [address] [place] [address] 11/30/2024 10:30 AM CDT Lab [facility] [address] [place] [address] 12/06/2024 10:10 AM CDT Office Visit [facility] 6525 [facility] 200 [place] [phone] Virgie Lobato PAAnthonyC 909 [place] [address] 12/28/2024 11:00 AM CDT [facility] Visit [facility] [address] [phone] [place] [address] [place] [address] 01/26/2025 11:30 AM CDT Office Visit [facility] [address] [place] [phone] [place] [address] [place] [address] documented as of this encounter Goals Goal Patient Goal Type Associated Problems Recent Progress Patient-Stated? Author Problem Solving General On track( 019 9:24 AM CHANNEL MARKETING MANAGER) Yes Sheryl Stringer RD Note: My [...] Total Score: 3 05/02/20 24 1:39 PM CHANNEL MARKETING MANAGER documented as of this encounter Care Teams Experimental Rocketsled Mechanic Relationship Specialty [place] [address] [place] [address] PCP - General Family Medicine 04/11/[address] [facility] [address] [place] [address] Rotary Cutter Dietitian, Registered 11/03/17 Federico Linda MD [address] [facility] [address] [place], [place] [address] Assigned Heart and Vascular Provider 03/29/20 Jc Zavala MD [facility] [address] 100 [place], [place] [address] Hematology & Oncology 08/07/21 Cristofer Michelle MD 6 [facility] PMB [address]E [place] [address] Gastroenterology 07/28/22 Vivien Blanchard MD 420 [facility] 394 [place], [place] [phone] Urology 07/28/22 Teetee Velazquez PA-C [address] [place] [address] Physician Army Manager 05/11/23 Teetee Velazquez PA-C [address] [place] [address] Assigned Surgical Provider 07/01/23 [place] [address] [facility] 300 [place] [address] Assigned Musculoskeletal Provider 08/20/23 Lanie Foster, RD, LD [address] [place] [place] [address]95 Registered Dietitian Nutrition 05/15/24 [place] [address] [place] [address] Assigned PCP 05/29/24 Melonie Caro RPH [address] [place] [address] Pharmacist Pharmacist 06/05/24 Federico Linda MD [address] [facility] [address] [place], [place] [address] Cardiovascular Disease 06/13/24 Melonie Caro R[facility] [address] [place], [place] 377947 Assigned MTM Pharmacist 06/29/24 Virgie Lobato, PA-C 909 [place], [place] [address] Assigned Nephrology Provider 07/30/24 Barry Ybarra MD [address] [phone] Hospitalist Infectious Diseases 08/31/24 documented as of this encounter
--- OUTSIDE RECORDS SUMMARY | 2024-11-12 17:24 | XMS_ITS | Encounter Summary ---
Author Organization [facility] Address [address] [place] [address] Care Team Providers Care Tree Worker Name Role Phone Sheryl Stringer RD Unavailable [phone] Federico Linda MD Unavailable [phone] Jc Zavala MD Unavailable [phone] Cristofer Michelle MD Unavailable Vivien Blanchard MD Unavailable Teetee Velazquez-Javi Unavailable [phone] Teetee Velazquez PA-C Unavailable Brad Mayer DO Unavailable [phone] Mary Garcia MD Primary Care Provider Lanie Foster RD, LD Unavailabl e Mary Garcia MD Unavailable Melonie Caro [facility] Unavailable [phone] Federico Linda MD Unavailable [phone] VaniaMelonie duarte [facility] Unavailable [phone] Virgie Lobato PA-C Unavailable [phone] Barry Ybarra MD Unavailable [phone] Encounter Details Date Type Department Care Team (Late st Contact Info) Description 10/19/2024 Telephone [facility] [place] 909 [facility] [address] 4th [place] [address] Vivien Blanchard MD 420 [facility] SE [facility] 394 [place] [address] Social History Tobacco Use Types Packs/Day [...] Sex Assigned at Female 07/18/2020 1:16 PM SADDLE STITCH OPERATOR Legal Sex Female 3:23 AM SADDLE STITCH OPERATOR Gender Identity Female 07/18/2020 1:16 PM SADDLE STITCH OPERATOR Sexual Orientation Straight 07/18/2020 1: 16 PM SADDLE STITCH OPERATOR 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 Not on file Not on file documented as of this encounter Miscellaneous Notes * Telephone Encounter - Ira Diaz - 10/19/2024 9:50 AM CDT Patient confirmed scheduled appointment: Date: 11/16 Time: 1:00pm Visit type: UDS Provider: Lucero Location: [facility] Testing/imaging: Additional notes: documented in this encounter Plan of Treatment Upcoming Encounters Date Type Department Care Team (Late st Contact Info) Description 11/16/2024 1:00 PM CDT Allied Health/Nurse Visit [facility] Urology [address]th [place] [address] Lucero Britt PA-C 500 [place], [place] [address] 11/16/2024 2:45 PM CDT Office Visit [facility] Urology [place] [address] [facility] 4th [place] [address] Vivien Blanchard MD 420 [facility] 394 [place] [address] 11/20/2024 3:30 PM CDT Office Visit [address] [phone] [place] [address] [place] [address] 11/22/2024 9:15 AM CDT Office Visit [facility] Heart [facility] [address] [facility] [address] [place] [phone] Federico Linda MD 6403 [facility] [address] [place], [place] [address] 11/30/2024 10:30 AM CDT Lab [facility] [address] [place] [address] 12/06/2024 10:10 AM CDT Office Visit [facility] Specialty [facility] 6525 [facility] 200 [place] [address] Virgie Lobato, PA-C 909 [place] [address] 12/28/2024 11:00 AM CDT Office [facility] 2945 [facility] [address] [place] [address] [place] [address] [place] [address] 200 [place] [address] 01/26/2025 11:30 AM CDT Office Visit [address] [place] [address] [place] [address] [place] [address] documented as of this encounter Goals Goal Patient Goal Type Associated Problems Recent Progress Patient-Stated? Author Problem Solving General On track( 019 9:24 AM SADDLE STITCH OPERATOR) Yes Sheryl Stringer, ELI Note: My [...] Total Score: 3 05/02/20 24 1:39 PM SADDLE STITCH OPERATOR documented as of this encounter Care Teams Tree Worker Relationship Specialty [place] [address] [place] [address] PCP - General Family Medicine 04/11/24 Sheryl Stringer, RD [address] [place] [address] Sql Engineer Dietitian, Registered 11/03/17 Federico Linda MD 6405 [facility] [address] [place] [address] Assigned Heart and Vascular Provider 03/29/20 Jc Zavala MD [facility] [address] 100 [place] [address] Hematology & Oncology 08/07/21 Cristofer Michelle MD 516 [facility] PMB 1E [place] [address] Gastroenterology 07/28/22 Vivien Blanchard MD 420 [facility] 394 [place], [place] [address] Urology 07/28/22 Teetee Velazquez PA-C 909 [place], [place] 6988[address] Physician Electric Vehicle Electrician 05/11/23 Teetee Velazquez PA-C 909 [place], [place] 974725 Assigned Surgical Provider 07/01/23 [place] [address] [address] Assigned Musculoskeletal Provider 08/20/23 Lanie Foster, RD, LD [address] [place] [address] Registered Dietitian Nutrition 05/15/24 [place] [address] [place] [address] Assigned PCP 05/29/24 Melonie Caro RPH [address] [place] [address] Pharmacist Pharmacist 06/05/24 Federico Linda MD 6405 [facility] [address] [place] [address] Cardiovascular Disease 06/13/24 Melonie Caro [facility] [address] [place] [address] Assigned [place] Pharmacist 06/29/24 Virgie Lobato, PAAnthonyC [address] [place] [address] Assigned Nephrology Provider 07/30/24 Barry Ybarra MD [facility]5 [facility] 200 [place] [address] Hospitalist Infectious Diseases 08/31/24 documented as of this encounter
--- OUTSIDE RECORDS SUMMARY | 2024-11-12 17:24 | XMS_ITS | Encounter Summary ---
Author Organization [place] Address [address] [place] [address] Care Team Providers Care Data Analytics Chief Scientist Name Role Phone Sheryl Stringer Kirk BENITEZ Unavailable [phone] Federico Linda MD Unavailable [phone] Trina CarbajalC Primary Care Provider [phone] Carlos Livingston MD Unavailable Jelena vailable Trina CarbajalC Unavailable [phone] Jc Zavala MD Unavailable [phone] Barbi Manzo RN Unavailable Unavailable Erasto Root MD Unavailable Cristofer Michelle MD Unavailable [phone] Vivien Blanchard MD Unavailable [phone] Vivien Blanchard MD Unavailable [phone] Virgie LobatoC Unavailable [phone] Teetee VelazquezC Unavailable Teetee Velazquez Kathy PA-C Unavailable [phone] Cora Shah RN Unavailable MorenoBrad Unavailable [phone] Mary Garcia MD Primary Care Provider [phone] Cristal Cooper RN Unavailable Shannon Rowland PA-C Unavailable [phone], LD Unavailabl e Mary Garcia MD Unavailable Melonie Caro [facility] Unavailable Federico Linda MD Unavailable [phone] Melonie Caro [facility] Unavailable Virgie Lobato-C Unavailable [phone] Barry Ybarra MD Unavailable Barry Ybarra MD Unavailable [phone] Encounter Details Date Type Department Care Team (Late st Contact Info) Description 10/08/2022 MyC Medical Advice [facility] Specialty [address] [address] Stacia Curtis RN Social History Tobacco Use Types Packs/Day Years Used Date Smoking Tobacco: Never Smokeless Tobacco: Never Alcohol Use Standard Drinks/Week Comments No 0 (1 standard drink = 0.6 oz pur e alcohol) PHQ-2 Answer Date Recorded PHQ-2 Score 0 09/09/2022 Comments No Sex and Gender Information Value Date Recorded Sex Assigned at Female 07/18/2020 1:[address] INTERPRETER Legal Sex Female 3:[address] INTERPRETER Gender Identity Female 07/18/2020 1:[address] INTERPRETER Sexual Orientation Straight 07/18/2020 1: [address] INTERPRETER 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 No / Unsure 09/30/2022 9:31 AM CDT documented as of this encounter Plan of Treatment Upcoming Encounters Date Type Department Care Team (Late st Contact Info) Description 11/16/2024 1:00 PM CDT Allied Health/Nurse Visit [facility] Urology [address] 4th [place] [address] Lucero Britt PA-C 500 [place], [place] [address] 11/16/2024 2:45 PM CDT Office Visit [facility] Urology [address] [phone] Vivien Blanchard MD 420 [facility] 394 [place], [place] [address] 11/20/2024 3:30 PM CDT Office [facility] [address] [place] [address] [place] [address] [place] [address] 11/22/2024 9:15 AM CDT Office Visit [facility] Heart [facility] [address] [facility] [address] [place] [phone] Federico Linda MD 6706 [facility] [address] [place], [place] [address] 11/30/2024 10:30 AM CDT Lab [facility] [address] [place] [phone] 12/06/2024 10:10 AM CDT Office Visit [facility] Specialty [facility] 6525 [facility] 200 [place] [address] Virgie Lobato PA-C 909 [place] [address] 12/28/2024 11:00 AM CDT Office Visit [facility] 2945 [facility] 200 [place] [address] Barry Ybarra MD [address] [address] 01/26/2025 11:30 AM CDT Office [facility] [address] [place] [phone] [place] [address] [place], [place] 2169[address] documented as of this encounter Goals Goal Patient Goal Type Associated Problems Recent Progress Patient-Stated? Author Problem Solving General On track( 019 9:[address] INTERPRETER) Yes Sheryl Stringer RD Note: My Goal: [...] Out COVID-19 07/16/2024 07/16/2024 07/16/2024 11:[address] INTERPRETER Rule Out COVID-19 09/01/2024 09/01/2024 09/01/2024 2:05 AM CDT Rule Out COVID-19 09/21/2024 09/21/2024 09/21/2024 3:25 PM CDT Assessment Noted Time PHQ-9 Depression Total Score: 4 09/10/19 9:48 AM CDT documented as of this encounter Care Teams Data Analytics Chief Scientist Relationship Specialty Start Date End Date Trina Carbajal PA-C 6405 [facility] S ART [address] [place] [address] PCP - General Family Medicine 05/19/20 04/10/24 [place] [address] [place] [address] PCP - General Family Medicine 04/11/[address] [place] [address] Mid Level Practitioner Dietitian, Registered 11/03/17 Federico Linda MD 6405 [facility] S ART [address] [place] [address] Assigned Heart and Vascular Provider 03/29/20 Carlos Livingston MD NO INFO AVAILABLE Assigned Endocrinology Provider 12/20/20 12/18/22 Trina Carbajal PA-C 6405 [facility] S ART [address] [place] [address] Assigned PCP 12/20/20 04/28/24 Jc Zavala MD [facility] [address] [place] [address] Hematology & Oncology 08/07/21 Barbi Manzo, JERRY Personal Advocate & Liaison (PAL) Family Medicine 12/24/21 07/08/23 [place] [address] [address] Assigned Musculoskeletal Provider 04/04/22 08/19/23 Cristofer Michelle MD 516 [facility] PMB 1E [place], [place] [address] Gastroenterology 07/28/22 Vivien Blanchard MD 420 [facility] 394 [place], [place] [address] Urology 07/28/22 Vivien Blanchard MD 420 [facility] 394 [place], [place] 6039[address] Assigned Surgical Provider 07/25/22 06/30/23 Virgie Lobato PA-C [address] [place] [address] 833575 Assigned Nephrology Provider 09/26/22 03/28/24 Teetee Velazquez PA-C [address] [place] [address] Physician Telephone Sales Representative 05/11/23 Teetee Velazquez PA-C [address] [place] [address] 501015 Assigned Surgical Provider 07/01/23 Cora Shah, JERRY Personal Advocate & Liaison (PAL) Nurse 07/09/23 09/29/23 [place] [address] [address], [address] [place] [address] Assigned Musculoskeletal Provider 08/20/23 Cristal Cooper, RN Lead Announcer Primary Care - CC 04/27/2404/08 Shannon Rowland PA-C [address] [place] [address] Assigned PCP 04/29/24 05/28/24 Lanie Foster, RD, LD [address] [place], [place] [address] Registered Dietitian Nutrition 05/15/24 [place] [address] [place] [address] Assigned PCP 05/29/24 Melonie Caro Gin [address] [place] [address] Pharmacist Pharmacist 06/05/24 Federico Linda MD 6[address] [facility] [address] [place] [address] Cardiovascular Disease 06/13/24 Melonie Caro RPH [address] [place] [address] Assigned MTM Pharmacist 06/29/24 Virgie Lobato PA-C 909 [place], [place] [address] Assigned Nephrology Provider 07/30/24 Barry Ybarra MD [facility]5 [address] [address] Hospitalist Infectious Diseases 08/31/24 Barry Ybarra MD [address] [place] [address] Assigned Infectious Disease Provider 10/27/24 documented as of this encounter
--- OUTSIDE RECORDS SUMMARY | 2024-11-12 17:24 | XMS_ITS | Encounter Summary ---
Author Organization [facility] Address [address] [place] [address] Care Team Providers Care Outbound Sales Professional Name Role Phone Sheryl Stringer RD Unavailable [phone] Federico Linda MD Unavailable [phone] Jc Zavala MD Unavailable [phone] Cristofer Michelle MD Unavailable Vivien Blanchard MD Unavailable Teetee Velazquez-Javi Unavailable [phone] Teetee Velazquez PA-C Unavailable Brad Mayer DO Unavailable [phone] Mary Garcia MD Primary Care Provider Lanie Foster RD, LD Unavailabl e Mary Garcia MD Unavailable Melonie Caro [facility] Unavailable Federico Linda MD Unavailable [phone] VaniaMelonie [facility] Unavailable [phone] Virgie Lobato PA-C Unavailable [phone] Barry Ybarra MD Unavailable [phone] Barry Ybarra MD Unavailable [phone] Encounter Details Date Type Department Care Team (Late st Contact Info) Description 10/25/2024 Results Follow-Up [facility] [place] [address] [place] [address] Vee Mccoy PA-C [address] [place] [address] Subj: Message about your results Social History Tobacco Use Types Packs/Day Years [...] re latives? Twice a week 10/21/2024 Attends [employer] Services Not on file 10/21 Active Member of Clubs or Organizations Not on f ile 10/21/2024 Attends Club or Organization Meetings Not on dian e 10/21/2024 Marital Status Not on file 10/21/2024 PHQ-2 Answer Date Recorded PHQ-2 Score 0 10/26/2024 [facility] [place] of Occupat ional Health - Occupational Stress [...] in an abandoned building, in an overnight correction, or couch-surfing.) Yes 10/21/2024 Are you worried [...] Sex Assigned at Female 07/18/2020 1:16 PM OPERATOR ASSISTANT I CEMENTING Legal Sex Female 3:23 AM OPERATOR ASSISTANT I CEMENTING Gender Identity Female 07/18/2020 1:16 PM OPERATOR ASSISTANT I CEMENTING Sexual Orientation Straight 07/18/2020 1: 16 PM OPERATOR ASSISTANT I CEMENTING 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 Not on file Not on file documented as of this encounter Plan of Treatment Upcoming Encounters Date Type Department Care Team (Late st Contact Info) Description 11/16/2024 1:00 PM CDT Allied Health/Nurse Visit [facility] Urology [facility] 909 [facility] 4th [place] [phone] Lucero Britt PA-C 500 [place], [place] 43[address] 11/16/2024 2:45 PM CDT Office Visit [facility] Urology [facility] 909 [facility] 4th [place] [phone] Vivien Blanchard MD 420 [facility] 394 [place], [place] [address] 11/20/2024 3:30 PM CDT Office Visit [facility] [address] [place] [phone] [place] [address] [place] [address] 11/22/2024 9:15 AM CDT Office Visit [facility] Heart [facility] [address] [facility] [address] [place] [phone] Federico Linda MD 6402 [facility] [address] [place], [place] [address] 11/30/2024 10:30 AM CDT Lab [facility] [address] [place] [phone] 12/06/2024 10:10 AM CDT Office Visit [facility] Specialty [facility] 6525 [facility] 200 [place] [phone] Virgie Lobato PA-C 909 [place], [place] [address] 12/28/2024 11:00 AM CDT Office Visit [facility] 2945 [facility] 200 [place] [phone] Barry Ybarra MD 2945 [facility] 200 [place] [address] 01/26/2025 11:30 AM CDT Office Visit [facility] [address] [place] [phone] [place] [address] [place] [address] documented as of this encounter Goals Goal Patient Goal Type Associated Problems Recent Progress Patient-Stated? Author Problem Solving General On track( 019 9:24 AM OPERATOR ASSISTANT I CEMENTING) Yes Shreyl Stringer RD Note: My Goal: I will [...] documented as of this encounter Care Teams Outbound Sales Professional Relationship Specialty [place] [address] [place] [address] PCP - General Family Medicine 04/11/[address] [facility] [place] [address] Material Analyst Dietitian, Registered 11/03/17 Federico Linda MD 6405 [facility] [address] [place] [address] Assigned Heart and Vascular Provider 03/29/20 Jc Zavala MD [facility] 675 E [facility] 100 [place] [address] Hematology & Oncology 08/07/21 Cristofer Michelle MD 6 [facility] PMB 1E [place] [address] Gastroenterology 07/28/22 Vivien Blanchard MD [address] [place] [address] 394 [place], [place] [address] Urology 07/28/22 Teetee Velazquez PA-C [address] [place] [address] Physician Technical Education Teacher 05/11/23 Teetee Velazquez PA-C [address] [place] [address] Assigned Surgical Provider 07/01/23 [place] [address] [address], [address] [address] Assigned Musculoskeletal Provider 08/20/23 Lanie Foster, RD, LD [address] [place] [address] Registered Dietitian Nutrition 05/15/24 [place] [address] [place], [place] [address] Assigned PCP 05/29/24 Melonie Caro [facility] [address] [place] [address] Pharmacist Pharmacist 06/05/24 Fedreico Linda MD [address] [place], [place] 2[address] Cardiovascular Disease 06/13/24 Melonie Caro [facility] [address] [place] [address] Assigned MTM Pharmacist 06/29/24 Vrigie Lobato, PAAnthonyC [address] [place] [address] 988035 Assigned Nephrology Provider 07/30/24 Barry Ybarra MD [address] [place] [address] Hospitalist Infectious Diseases 08/31/24 Barry Ybarra MD [address] [place] [address] Assigned Infectious Disease Provider 10/27/24 documented as of this encounter
--- OUTSIDE RECORDS SUMMARY | 2024-11-12 17:24 | XMS_ITS | Encounter Summary ---
Author Organization [place] Address [address] [place] [address] Care Team Providers Care Conveyor Operator Name Role Phone Sheryl Stringer RD Unavailable [phone] Federico Linda MD Unavailable [phone] Jc Zavala MD Unavailable [phone] Cristofer Michelle MD Unavailable Vivien Blanchard MD Unavailable Teetee Velazquez-Javi Unavailable [phone] Teetee Velazquez PA-C Unavailable Brad Mayer DO Unavailable [phone] Mary Garcia MD Primary Care Provider Lanie Foster RD, LD Unavailabl e Mary Garcia MD Unavailable Melonie Caro [facility] Unavailable Federico Linda MD Unavailable [phone] VaniaMelonie duarte [facility] Unavailable [phone] Virgie Lobato PA-C Unavailable [phone] Barry Ybarra MD Unavailable [phone] Barry Ybarra MD Unavailable [phone] Encounter Details Date Type Department Care Team (Late st Contact Info) Description 10/26/2024 MyC Medical Advice [facility] [address] [place] [address] Ya Lopez MA Social History Tobacco Use Types Packs/Day Years [...] re latives? Twice a week 10/21/2024 Attends Zoroastrian Services Not on file 10/21 Active Member of Clubs or Organizations Not on f ile 10/21/2024 Attends Club or Organization Meetings Not on dina e 10/21/2024 Marital Status Not on file 10/21/2024 PHQ-2 Answer Date Recorded PHQ-2 Score 0 10/26/2024 [facility] - Occupational Stress Questionnaire Answer [...] in an abandoned building, in an overnight nursing home, or couch-surfing.) Yes 10/21/2024 Are you worried [...] Sex Assigned at Female 07/18/2020 1:16 PM COACH OPERATOR Legal Sex Female 3:23 AM COACH OPERATOR Gender Identity Female 07/18/2020 1:16 PM COACH OPERATOR Sexual Orientation Straight 07/18/2020 1: 16 PM COACH OPERATOR 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 Not on file Not on file documented as of this encounter Plan of Treatment Upcoming Encounters Date Type Department Care Team (Late st Contact Info) Description 11/16/2024 1:00 PM CDT Allied Health/Nurse Visit [facility] [address] [place] [address] Lucero Britt, SANTOS 500 [place] [address] 11/16/2024 2:45 PM CDT Office Visit [facility] 9[address] [facility] 4th [place] [address] Vivien Blanchard MD 420 [facility] 394 [place], [place] [address] 11/20/2024 3:30 PM CDT Office Visit [facility] [address] [place] [phone] [place] [address] [place] [address] 11/22/2024 9:15 AM CDT Office Visit [facility] Heart [facility] [address] [facility] [address] [place] [phone] Federico Linda MD 6407 [facility] [address] [place], [place] [address] 11/30/2024 10:[address] [facility] [address] [place] [phone] 12/06/2024 10:10 AM CDT Office Visit [facility] Specialty [facility] 6525 [facility] 200 [place] [address] Virgie Lobato PA-C 909 [place], [place] [address] 12/28/2024 11:00 AM CDT Office Visit [facility] 2945 [facility] 200 [place] [address] Barry Ybarra MD [address] [place] [address] 200 [place] [address] 01/26/2025 11:30 AM CDT Office Visit [facility] [address] [place] [address] [place] [address] [place] [address] documented as of this encounter Goals Goal Patient Goal Type Associated Problems Recent Progress Patient-Stated? Author Problem Solving General On track( 019 9:24 AM COACH OPERATOR) Yes Sheryl Stringer RD Note: My [...] documented as of this encounter Care Teams Conveyor Operator Relationship Specialty [place] [address] [place] [address] PCP - General Family Medicine 04/11/[address] [place] [address] Manager Agriculture Dietitian, Registered 11/03/17 Federico Linda MD [address] [facility] [address] [place] [address] Assigned Heart and Vascular Provider 03/29/20 Jc Zavala MD [facility] [address] [place] [address] Hematology & Oncology 08/07/21 Cristofer Michelle MD 516 [facility] 1E [place], [place] 9018[address] Gastroenterology 07/28/22 Vivien Blanchard MD 420 [facility] 394 [place], [place] [address] Urology 07/28/22 Teetee Velazquez PA-C [address] [place] [address] 413825 Physician Corporate Tax Preparer 05/11/23 Teetee Velazquez PA-C 909 [place] [address] Assigned Surgical Provider 07/01/23 [place] [address] [place] , [address] 362707 Assigned Musculoskeletal Provider 08/20/23 Lanie Foster, RD, LD [address] [place] [address] Registered Dietitian Nutrition 05/15/24 [place] [address] [place] [address] Assigned PCP 05/29/24 Melonie Caro [facility] [address] [place] [address] Pharmacist Pharmacist 06/05/24 Federico Linda MD [address] [place] [address] Cardiovascular Disease 06/13/24 Melonie Caro [facility] [address] [place] [address] Assigned MTM Pharmacist 06/29/24 Virgie Lobato, PA-C [address] [place] [address] Assigned Nephrology Provider 07/30/24 Barry Ybarra MD [address] [place] [address] Hospitalist Infectious Diseases 08/31/24 Barry Ybarra MD [address] [place] [address] Assigned Infectious Disease Provider 10/27/24 documented as of this encounter
--- OUTSIDE RECORDS SUMMARY | 2024-11-12 17:24 | XMS_ITS | Encounter Summary ---
Author Organization [place] Address [address] [place] [address] Care Team Providers Care Board Liner Operator Name Role Phone Sheryl Stringer Kirk BENITEZ Unavailable [phone] Federico Linda MD Unavailable [phone] Trina CarbajalC Primary Care Provider + [phone] Carlos Livingston MD Unavailable Jelena vailable Trina CarbajalC Unavailable [phone] Jc Zavala MD Unavailable [phone] Barbi Manzo RN Unavailable Unavailable Erasto Root MD Unavailable Cristofer Michelle MD Unavailable [phone] Vivien Blanchard MD Unavailable [phone] Vivien Blanchard MD Unavailable [phone] Virgie LobatoC Unavailable [phone] Teetee VelazquezC Unavailable Teetee Velazquez Kathy PA-C Unavailable [phone] Cora Shah RN Unavailable [phone] MorenoBrad Unavailable [phone] Mary Garcia MD Primary Care Provider Cristal Cooper RN Unavailable Shannon Rowland PA-C Unavailable [phone], LD Unavailabl e Mary Garcia MD Unavailable Melonie Caro [facility] Unavailable Federico Linda MD Unavailable [phone] Melonie Caro [facility] Unavailable [phone] Virgie Lobato-C Unavailable [phone] Barry Ybarra MD Unavailable Barry Ybarra MD Unavailable [phone] Encounter Details Date Type Department Care Team (Late st Contact Info) Description 10/05/2022 [facility] [address] [address] Barbi Manzo, RN Social History Tobacco Use Types Packs/Day Years Used Date Smoking Tobacco: Never Smokeless Tobacco: Never Alcohol Use Standard Drinks/Week Comments No 0 (1 standard drink = 0.6 oz pur e alcohol) PHQ-2 Answer Date Recorded PHQ-2 Score 0 09/09/2022 Comments No Sex and Gender Information Value Date Recorded Sex Assigned at Female 07/18/2020 1:16 PM RN BONE MARROW TRANSPLANT Legal Sex Female 3:23 AM RN BONE MARROW TRANSPLANT Gender Identity Female 07/18/2020 1:16 PM RN BONE MARROW TRANSPLANT Sexual Orientation Straight 07/18/2020 1: 16 PM RN BONE MARROW TRANSPLANT 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 No / Unsure 09/30/2022 9:31 AM CDT documented as of this encounter Plan of Treatment Upcoming Encounters Date Type Department Care Team (Late st Contact Info) Description 11/16/2024 1:00 PM CDT Allied Health/Nurse Visit [facility] Urology [address] [place] [address] Lucero Britt PA-C 500 [place], [place] 5428[address] 11/16/2024 2:45 PM CDT Office Visit [facility] Urology [address] [address] Vivien Blanchard MD 420 [facility] 394 [place] [address] 11/20/2024 3:30 PM CDT Office Visit [facility] [address] [place] [address] [place] [address] [place] [address] 11/22/2024 9:15 AM CDT Office Visit [facility] Heart [facility] [address] [facility] [address] [place] [phone] Federico Linda MD 6407 [facility] [address] [place], [place] [address] 11/30/2024 10:30 AM CDT Lab [facility] [address] [place] [phone] 12/06/2024 10:10 AM CDT Office Visit [facility] Specialty [facility] [address] [phone] Virgie Lobato PA-C 909 [place] [address] 12/28/2024 11:00 AM CDT Office Visit [facility] [address] [phone] Barry Ybarra MD [address] [address] 01/26/2025 11:30 AM CDT Office Visit [facility] [address] [place] [phone] [place] [address] [place] [address] documented as of this encounter Goals Goal Patient Goal Type Associated Problems Recent Progress Patient-Stated? Author Problem Solving General On track( 019 9:24 AM RN BONE MARROW TRANSPLANT) Yes Sheryl Stringer RD Note: My Goal: [...] Out COVID-19 07/16/2024 07/16/2024 07/16/2024 11:04 PM RN BONE MARROW TRANSPLANT Rule Out COVID-19 09/01/2024 09/01/2024 09/01/2024 2:05 AM CDT Rule Out COVID-19 09/21/2024 09/21/2024 09/21/2024 3:25 PM CDT Assessment Noted Time PHQ-9 Depression Total Score: 4 09/10/19 23 9:48 AM CDT documented as of this encounter Care Teams Board Liner Operator Relationship Specialty Start Date End Date Trina Carbajal PA-C [address] [facility] [address] [place] [address] PCP - General Family Medicine 05/19/20 04/10/24 [place] [address] [place] [address] PCP - General Family Medicine 04/11/[address] [place] [address] Slps Dietitian, Registered 11/03/17 Federico Linda MD 6[address] [facility] [address] [place] [address] Assigned Heart and Vascular Provider 03/29/20 Carlos Livingston MD NO INFO AVAILABLE Assigned Endocrinology Provider 12/20/20 12/18/22 Trina Carbajal PA-C 6405 [facility] [address] [place] [address] Assigned PCP 12/20/20 04/28/24 Jc Zavala MD [facility] [address] [place] [address] 180137 Hematology & Oncology 08/07/21 Barbi Manzo, JERRY Personal Advocate & Liaison (PAL) Family Medicine 12/24/21 07/08/23 [place] [address] [place] [address] [place] [address] Assigned Musculoskeletal Provider 04/04/22 08/19/23 Cristofer Michelle MD 6 [facility] 1E [place], [place] 9[address] Gastroenterology 07/28/22 Vivien Blanchard MD 420 [facility] 394 [place], [place] 0079[address] Urology 07/28/22 Vivien Blanchard MD 420 [facility] 394 [place], [place] 546435 Assigned Surgical Provider 07/25/22 06/30/23 Virgie Lobato PA-C [address] [place] [address] 149085 Assigned Nephrology Provider 09/26/22 03/28/24 Teetee Velazquez PA-C [address] [place] [address] 914935 Physician Retail Loss Prevention Investigator 05/11/23 Teetee Velazquez PA-C [address] [place] [address] 968175 Assigned Surgical Provider 07/01/23 Cora Shah, JERRY Personal Advocate & Liaison (PAL) Nurse 07/09/23 09/29/23 [place] [address] [facility] [place], ART [address] [place] [address] Assigned Musculoskeletal Provider 08/20/23 Cristal Cooper, RN Lead Industrial Cleaner Primary Care - CC 04/27/2404/08 Shannon Rowland PA-C [address] [place] [phone] Assigned PCP 04/29/24 05/28/24 Lanie Foster, RD, LD [address] [place] 617265 Registered Dietitian Nutrition 05/15/24 [place] [address] [place] [address] Assigned PCP 05/29/24 Melonie Caro [facility] [address] [place], [place] 513[address] Pharmacist Pharmacist 06/05/24 Federico Linda MD [address] Lauryn [facility] [address] [place] MD 600815 Cardiovascular Disease 06/13/24 Melonie Caro [facility] [address] [place] [address] Assigned MTM Pharmacist 06/29/24 Virgie Lobato PA-C 909 [place], [place] 971245 Assigned Nephrology Provider 07/30/24 Barry Ybarra MD [address] [place] [address] Hospitalist Infectious Diseases 08/31/24 Barry Ybarra MD [address] [place] [address] Assigned Infectious Disease Provider 10/27/24 documented as of this encounter
--- OUTSIDE RECORDS SUMMARY | 2024-11-12 17:24 | XMS_ITS | Encounter Summary ---
Author Organization [place] Address [address] [place] [address] Care Team Providers Care Bilingual Office Assistant Name Role Phone Sheryl Stringer RD Unavailable [phone] Federico Linda MD Unavailable [phone] Jc Zavala MD Unavailable [phone] Cristofer Michelle MD Unavailable [phone] Vivien Blanchard MD Unavailable [phone] Teetee Velazquez-Javi Unavailable Teetee Velazquez PA-C Unavailable Brad Mayer DO Unavailable [phone] Mary Garcia MD Primary Care Provider [phone], LD Unavailabl e Mary Garcia MD Unavailable Melonie Caro [facility] Unavailable Federico Linda MD Unavailable [phone] VaniaMilly duartein [facility] Unavailable [phone] Virgie Lobato PA-C Unavailable [phone] Barry Ybarra MD Unavailable [phone] Barry Ybarra MD Unavailable [phone] Encounter Details Date Type Department Care Team (Late st Contact Info) Description 11/09/2024 MyC Medical Advice [facility] [place] 6405 [facility] [address] [place] [address] Ewa Amaya Social History Tobacco Use Types Packs/Day Years [...] re latives? Twice a week 10/21/2024 Attends Pentecostal Services Not on file 10/21 Active Member of Clubs or Organizations Not on f ile 10/21/2024 Attends Club or Organization Meetings Not on dian e 10/21/2024 Marital Status Not on file 10/21/2024 PHQ-2 Answer Date Recorded PHQ-2 Score 0 10/26/2024 [facility] - Occupational Stress Questionnaire Answer [...] Assigned at Female 07/18/2020 1:16 PM SUPERVISOR CONTACT LENS Legal Sex Female 3:23 AM SUPERVISOR CONTACT LENS Gender Identity Female 07/18/2020 1:16 PM SUPERVISOR CONTACT LENS Sexual Orientation Straight 07/18/2020 1: 16 PM SUPERVISOR CONTACT LENS 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 Not on file Not on file documented as of this encounter Plan of Treatment Upcoming Encounters Date Type Department Care Team ([facility] st Contact Info) Description 11/16/2024 1:00 PM CDT Allied Health/Nurse Visit [facility] [address]th [place] [address] Lucero Britt PA-C 500 [place] [address] 11/16/2024 2:45 PM CDT Office Visit [facility] Urology [facility] 909 [facility] 4th [place] [phone] Vivien Blanchard MD 420 [facility] 394 [place], [place] [address] 11/20/2024 3:30 PM CDT Office Visit [facility] [address] [place] [phone] [place] [address] [place], [place] 6[address]13[address] 11/22/2024 9:15 AM CDT Office Visit [facility] Heart [facility] [address] [facility] [address] [place] [address] Feedrico Linda MD 6408 [facility] [address] [place], [place] [address] 11/30/2024 10:30 AM CDT Lab [facility] [address] [place] [address] 12/06/2024 10:10 AM CDT Office Visit [facility] Specialty [facility] 6525 [facility] 200 [place] [address] Virgie Lobato PA-C 909 [place], [place] [address]36[address] 12/28/2024 11:00 AM CDT Office Visit [facility] 2945 [facility] 200 [place] [address] Barry Ybarra MD [address] [place] [address] 200 [place] [address] 01/26/2025 11:30 AM CDT Office Visit [facility] [address] [place] [address] [place] [address] [place] [address] documented as of this encounter Goals Goal Patient Goal Type Associated Problems Recent Progress Patient-Stated? Author Problem Solving General On track( 019 9:24 AM SUPERVISOR CONTACT LENS) Yes Sheryl Stringer RD Note: My Goal: [...] documented as of this encounter Care Teams Bilingual Office Assistant Relationship Specialty [place] [address] [place] [address] PCP - General Family Medicine 04/11/[address] [place] [address] Car Dryer Dietitian, Registered 11/03/17 Federico Linda MD [address] [facility] [address] [place] [address] Assigned Heart and Vascular Provider 03/29/20 Jc Zavala MD [place] [facility] 675 [address] [facility] 100 [place] [address] Hematology & Oncology 08/07/21 Cristofer Michelle MD 516 [facility] 1E [place], [place] [address] Gastroenterology 07/28/22 Vviien Blanchard MD 420 [facility] 394 [place], [place] [address] Urology 07/28/22 Teetee Velazquez PA-C [address] [place] [address] 366735 Physician Muck Farmer 05/11/23 eTetee Velazquez PA-C 909 [place], [place] 415435 Assigned Surgical Provider 07/01/23 [place] [address] [place] , [address] 021737 Assigned Musculoskeletal Provider 08/20/23 Lanie Foster, RD, LD [address] [place], [place] 887[address] Registered Dietitian Nutrition 05/15/24 [place] [address] [place] [address] Assigned PCP 05/29/24 Melonie Caro [facility] [address] [place] [address] Pharmacist Pharmacist 06/05/24 Federico Linda MD [address] [place] [address] Cardiovascular Disease 06/13/24 Melonie Caro [facility] [address] [place] [address] Assigned MTM Pharmacist 06/29/24 Virgie Lobato, PA-C [address] [place] [address] Assigned Nephrology Provider 07/30/24 Barry Ybarra MD [address] [place] [address] Hospitalist Infectious Diseases 08/31/24 Barry Ybarra MD [address] [place] [address] Assigned Infectious Disease Provider 10/27/24 documented as of this encounter
--- OUTSIDE RECORDS SUMMARY | 2024-11-12 17:24 | XMS_ITS | Encounter Summary ---
Author Organization [facility] Address [address] [place] [address] Care Team Providers Care Middleware Solutions Architect Name Role Phone Sheryl Stringer RD Unavailable [phone] Federico Linda MD Unavailable [phone] Jc Zavala MD Unavailable [phone] Cristofer Michelle MD Unavailable Vivien Blanchard MD Unavailable Teetee Velazquez-Javi Unavailable Teetee Velazquez PA-C Unavailable Brad Mayer DO Unavailable [phone] Mary Garcia MD Primary Care Provider Lanie Foster RD, LD Unavailabl e Mary Garcia MD Unavailable Melonie Caro [facility] Unavailable [phone] Federico Linda MD Unavailable [phone] VaniaMelonie [facility] Unavailable [phone] Virgie Lobato PA-C Unavailable [phone] Barry Ybarra MD Unavailable [phone] Barry Ybarra MD Unavailable [phone] Encounter Details Date Type Department Care Team (Late st Contact Info) Description 10/27/2024 Results Follow-Up [facility] [address] [place] [address] Danish Del Toro APRN [facility] [address] [place] [address] Subj: Message about your results [...] re latives? Twice a week 10/21/2024 Attends Restorationist Services Not on file 10/21 Active Member of Clubs or Organizations Not on f ile 10/21/2024 Attends Club or Organization Meetings Not on dian e 10/21/2024 Marital Status Not on file 10/21/2024 PHQ-2 Answer Date Recorded PHQ-2 Score 0 10/26/2024 [facility] of Occupat ional Health - Occupational Stress [...] in an abandoned building, in an overnight senior care, or couch-surfing.) Yes 10/21/2024 Are you worried [...] Sex Assigned at Female 07/18/2020 1:16 PM CASINO GAMING INSPECTOR Legal Sex Female 3:23 AM CASINO GAMING INSPECTOR Gender Identity Female 07/18/2020 1:16 PM CASINO GAMING INSPECTOR Sexual Orientation Straight 07/18/2020 1: 16 PM CASINO GAMING INSPECTOR 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 file Not on file documented as of this encounter Plan of Treatment Upcoming Encounters Date Type Department Care Team (Late st Contact Info) Description 11/16/2024 1:00 PM CDT Allied Health/[facility] 909 [facility] 4th [place] [phone] Lucero Britt PA-C 500 [place], [place] [address] 11/16/2024 2:45 PM CDT Office Visit [facility] 909 [facility] 4th [place] [address] Vivien Blanchard MD 420 [facility] 394 [place] [address] 11/20/2024 3:30 PM CDT Office Visit [facility] [address] [place] [address] [place] [address] [place] [address] 11/22/2024 9:15 AM CDT Office Visit [facility] Heart [facility] 466[address] [facility] [address] [place] [phone] Federico Linda MD 6406 [facility] [address] [place], [place] [address] 11/30/2024 10:30 AM CDT Lab [facility] [address] [place] [phone] 12/06/2024 10:10 AM CDT Office Visit [facility] Specialty [facility] 6525 [facility] [address] [place] [phone] Virgie Lobato PAAnthonyC 909 [place] [address] 12/28/2024 11:00 AM CDT Office Visit [place] [address] [facility] 200 [place] [address] Barry Ybarra MD 2945 [facility] 200 [place] [address] 01/26/2025 11:30 AM CDT Office Visit [facility] [address] [place] [phone] [place] [address] [place] [address] documented as of this encounter Goals Goal Patient Goal Type Associated Problems Recent Progress Patient-Stated? Author Problem Solving General On track( 019 9:24 AM CASINO GAMING INSPECTOR) Yes Sheryl Stringer RD Note: My Goal: [...] documented as of this encounter Care Teams Middleware Solutions Architect Relationship Specialty [place] [address] [place] [address] PCP - General Family Medicine 04/11/[address] [facility] [address] [place] [address] Training Associate Dietitian, Registered 11/03/17 Federico Linda MD 6405 [facility] [address] [place] [address] Assigned Heart and Vascular Provider 03/29/20 Jc Zavala MD [place] [facility] 100 [place] [address] Hematology & Oncology 08/07/21 Cristofer Michelle MD 6 [facility] 1E [place], [place] [address] Gastroenterology 07/28/22 Vivien Blanchard MD [address] [place] [address] 394 [place], [place] [address] Urology 07/28/22 Teetee Velazquez PA-C [address] [place] [address] Physician Continuous Conveyor Screen Drier 05/11/23 Teetee Velazquez PA-C [address] [place] [address] 467595 Assigned Surgical Provider 07/01/23 [place] [address] RONALD ESPINOSA, [address] [address] Assigned Musculoskeletal Provider 08/20/23 Lanie Foster, RD, LD [address]01 [place] [address] Registered Dietitian Nutrition 05/15/24 [place] [address] [place] [address] Assigned PCP 05/29/24 Melonie Caro [facility] [address] [place] [address] Pharmacist Pharmacist 06/05/24 Federico Linda MD [address] [place] [address] Cardiovascular Disease 06/13/24 Melonie Caro [facility] [address] [place] [address] Assigned MTM Pharmacist 06/29/24 Virgie Lobato, PAAnthonyC [address] [place] [address] 258655 Assigned Nephrology Provider 07/30/24 Barry Ybarra MD [address] [place] [address] Hospitalist Infectious Diseases 08/31/24 Barry Ybarra MD [address] [place] [address] Assigned Infectious Disease Provider 10/27/24 documented as of this encounter
--- OUTSIDE RECORDS SUMMARY | 2024-11-12 17:24 | XMS_ITS | Encounter Summary ---
Author Organization [facility] Address [address] [place] [address] Care Team Providers Care Research Hydrologist Name Role Phone Sheryl Stringer RD Unavailable [phone] Federico Linda MD Unavailable [phone] Jc Zavala MD Unavailable [phone] Cristofer Michelle MD Unavailable Vivien Blanchard MD Unavailable Teetee Velazquez-Javi Unavailable Teetee Velazquez PA-C Unavailable Brad Mayer DO Unavailable [phone] Mary Garcia MD Primary Care Provider Lanie Foster RD, LD Unavailabl e Mary Garcia MD Unavailable Melonie Caro [facility] Unavailable [phone] Federico Linda MD Unavailable [phone] VaniaMelonie duarte [facility] Unavailable [phone] Virgie Lobato PA-C Unavailable [phone] Barry Ybarra MD Unavailable [phone] Barry Ybarra MD Unavailable [phone] Encounter Details Date Type Department Care Team (Late st Contact Info) Description 11/09/2024 MyC Medical Advice [facility] [address] 4th [place] [address] Wandy Rdz Social History Tobacco Use Types Packs/Day Years [...] re latives? 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 Not on file documented as of this encounter Plan of Treatment Upcoming Encounters Date Type Department Care Team (Late st Contact Info) Description 11/16/2024 1:00 PM CDT Allied Health/Nurse Visit [facility] [address] 4th [place] [address] WastiLucero PA-C 500 [place] [address] 11/16/2024 2:45 PM CDT Office Visit [facility] Urology [facility] 909 [facility] 4th [place] [phone] Vivien Blanchard MD 420 [facility] 394 [place], [place] [address] 11/20/2024 3:30 PM CDT Office Visit [facility] [address] [place] [phone] [place] [address] [place] [address] 11/22/2024 9:15 AM CDT Office Visit [facility] Heart [facility] [address] [facility] [address] [place] [phone] Federico Linda MD [address] [facility] [address] [place], [place] [address] 11/30/2024 10:30 AM CDT Lab [facility] [address] [place] [phone] 12/06/2024 10:10 AM CDT Office Visit [facility] Specialty [facility] 6525 [facility] 200 [place] [address] Virgie Lobato PA-C 909 [place] [address] 12/28/2024 11:00 AM CDT Office Visit [facility] 2945 [facility] 200 [place] [phone] Barry Ybarra MD [address] [place] [address] 200 [place] [address] 01/26/2025 11:30 AM CDT Office Visit [facility] [address] [place] [address] [place] [address] [place] [address] documented as of this encounter Goals Goal Patient Goal Type Associated Problems Recent Progress Patient-Stated? Author Problem Solving General On track( 019 9:24 AM RIVET THROWER) Yes Sheryl Stringer RD Note: My Goal: [...] documented as of this encounter Care Teams Research Hydrologist Relationship Specialty [place] [address] [place] [address] PCP - General Family Medicine 04/11/[address] [place] [address] Reflexologist Dietitian, Registered 11/03/17 Federico Linda MD [address] [facility] [address] [place] [address] Assigned Heart and Vascular Provider 03/29/20 Jc Zavala MD [facility] [address] [facility] 100 [place] [address] Hematology & Oncology 08/07/21 Cristofer Michelle MD 516 [facility] [place], [place] [address] Gastroenterology 07/28/22 Vivien Blanchard MD [address] [place] [address] 394 [place], [place] [phone] Urology 07/28/22 Teetee Velazquez PA-C [address] [place] [address] 320815 Physician Metal Trades Instructor 05/11/23 Teetee Velazquez PA-C 9 [place], [place] 848785 Assigned Surgical Provider 07/01/23 [place] [address] [place] , [address] [address] Assigned Musculoskeletal Provider 08/20/23 Lanie Foster, RD, LD [address] [place] [address] Registered Dietitian Nutrition 05/15/24 [place] [address] [place] [address] Assigned PCP 05/29/24 Melonie Caro [facility] [place] [address] Pharmacist Pharmacist 06/05/24 Federico Linda MD [address] [place] [address] Cardiovascular Disease 06/13/24 Melonie Caro [facility] [address] [place] [address] Assigned MTM Pharmacist 06/29/24 Virgie Lobato, PA-C [address] [place] [address] Assigned Nephrology Provider 07/30/24 Barry Ybarra MD [address] [place] [address] Hospitalist Infectious Diseases 08/31/24 Barry Ybarra MD [address] [place] [address] Assigned Infectious Disease Provider 10/27/24 documented as of this encounter
--- OUTSIDE RECORDS SUMMARY | 2024-11-12 17:24 | XMS_ITS | Encounter Summary ---
Author Organization [facility] Address [address] [place] [address] Care Team Providers Care Prop And Scenery Maker Name Role Phone Sheryl Stringer RD Unavailable [phone] Federico Linda MD Unavailable [phone] Jc Zavala MD Unavailable [phone] Cristofer Michelle MD Unavailable Vivien Blanchard MD Unavailable [phone] Teetee Velazquez-Javi Unavailable Teetee Velazquez PA-C Unavailable [phone] Brad Mayer DO Unavailable [phone] Mary Garcia MD Primary Care Provider Lanie Foster RD, LD Unavailabl e Mary Garcia MD Unavailable Melonie Caro [facility] Unavailable Federico Linda MD Unavailable [phone] VaniaMelonie duarte [facility] Unavailable [phone] Virgie Lobato PA-C Unavailable [phone] Barry Ybarra MD Unavailable [phone] Barry Ybarra MD Unavailable [phone] Encounter Details Date Type Department Care Team (Latest Contact Info) Description 11/06/2024 Travel Social History Tobacco Use Types Packs/Day [...] re latives? Twice a week 10/21/2024 Attends Roman Catholic Services Not on file 10/21 Active Member of Clubs or Organizations Not on f ile 10/21/2024 Attends Club or Organization Meetings Not on dian e 10/21/2024 Marital Status Not on file 10/21/2024 PHQ-2 Answer Date Recorded PHQ-2 Score 0 10/26/2024 [facility] of Occupat ional Health - Occupational Stress [...] in an abandoned building, in an overnight prison, or couch-surfing.) Yes 10/21/2024 Are you worried [...] Sex Assigned at Female 07/18/2020 1:16 PM RESTORATION OFFICER Legal Sex Female 3:23 AM RESTORATION OFFICER Gender Identity Female 07/18/2020 1:16 PM RESTORATION OFFICER Sexual Orientation Straight 07/18/2020 1: 16 PM RESTORATION OFFICER 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 Not on file documented as of this encounter Plan of Treatment Upcoming Encounters Date Type Department Care Team (Late st Contact Info) Description 11/16/2024 1:00 PM CDT Allied Health/Nurse Visit [facility] Clinic [address] 4th [place] [address] Lucero Britt PA-C 500 [place], [place] [phone] 11/16/2024 2:45 PM CDT Office Visit [facility] [place] 909 [facility] 4th [place] [address] Vivien Blanchard MD 420 [facility] 394 [place] [address] 11/20/2024 3:30 PM CDT Office Visit [facility] [address] [place] [phone] [place] [address] [place] [address] 11/22/2024 9:15 AM CDT Office Visit [facility] Heart [facility] [address]58[address] [facility] [address] [place] [phone] Federico Linda MD 6405 [facility] [address] [place] [address] 11/30/2024 10:30 AM CDT Lab [facility] [address] [place] [phone] 12/06/2024 10:10 AM CDT Office Visit [facility] Specialty [facility] 6525 [facility] 200 [place] [phone] Virgie Lobato PA-C 909 [place] [address] 12/28/2024 11:00 AM CDT Office [facility] 2945 [facility] 200 [place] [phone] [place] [address] [place] [address] 200 [place] [address] 01/26/2025 11:30 AM CDT Office Visit [facility] [address] [place] [address] [place] [address] [place] [address] documented as of this encounter Goals Goal Patient Goal Type Associated Problems Recent Progress Patient-Stated? Author Problem Solving General On track( 019 9:24 AM RESTORATION OFFICER) Yes Sheryl Stringer, ELI Note: My Goal: [...] documented as of this encounter Care Teams Prop And Scenery Maker Relationship Specialty [place] [address] [place] [address] PCP - General Family Medicine 04/11/24 Sheryl Stringer, RD [address] [place] [address] Sheep Boner Dietitian, Registered 11/03/17 Federico Linda MD [address] [place] [address] Assigned Heart and Vascular Provider 03/29/20 Jc Zavaal MD [facility] [address] [place] [address] Hematology & Oncology 08/07/21 Cristofer Michelle MD 6 [facility]B 1E [place], [place] [address] Gastroenterology 07/28/22 Vivien Blanchard MD 420 [facility] 394 [place], [place] [address] Urology 07/28/22 Teetee Velazquez PA-C 909 [place] [address] Physician Traveling Sales Executive 05/11/23 Teetee Velazquez PA-C 909 [place] [address] Assigned Surgical Provider 07/01/23 [place] [address] [place] , [address] [id number] Assigned Musculoskeletal Provider 08/20/23 Lanie Foster, RD, LD [address] [place] 768575 Registered Dietitian Nutrition 05/15/24 [place] [address] [place] [address] Assigned PCP 05/29/24 Melonie Caro [facility] [address] [place] [address] Pharmacist Pharmacist 06/05/24 Federico Linda MD [address] [place] [address] Cardiovascular Disease 06/13/24 Melonie Caro [facility] [address] [place] [address] Assigned MTM Pharmacist 06/29/24 Virgie Lobato, PAAnthonyC [address] [place] [address] Assigned Nephrology Provider 07/30/24 Barry Ybarra MD [address] [place] [address] Hospitalist Infectious Diseases 08/31/24 Barry Ybarra MD [address] [place] [address] Assigned Infectious Disease Provider 10/27/24 documented as of this encounter
--- OUTSIDE RECORDS SUMMARY | 2024-11-12 17:24 | XMS_ITS | Encounter Summary ---
Author Organization [facility] Address [address] [place] [address] Care Team Providers Care Packing Room Worker Name Role Phone Sheryl Stringer RD Unavailable [phone] Federico Linda MD Unavailable [phone] Jc Zavala MD Unavailable [phone] Cristofer Michelle MD Unavailable [phone] Vivien Blanchard MD Unavailable [phone] Teetee Velazquez-Javi Unavailable Teetee Velazquez PA-C Unavailable rBad Mayer DO Unavailable [phone] Mary Garcia MD Primary Care Provider Lanie Foster RD, LD Unavailabl e Mary Garcia MD Unavailable Melonie Caro [facility] Unavailable [phone] Federico Linda MD Unavailable [phone] Melonie Caro [facility] Unavailable [phone] Virgie Lobato PA-C Unavailable [phone] Barry Ybarra MD Unavailable [phone] Barry Ybarra MD Unavailable [phone] Reason for Visit * Reason Onset Date Comments MyChart Communication 11/09/2024 Encounter Details Date Type Department Care Team (Latest Contact Info) Description 11/09/2024 MyC Medical Advice [facility] [address] [place] [address] [place] [address] [place] [address] MyChart Communication Social History Tobacco Use Types Packs/Day Years [...] re latives? Twice a week 10/21/2024 Attends Oriental Orthodox Services Not on file 10/21 Active Member of Clubs or Organizations Not on f ile 10/21/2024 Attends Club or Organization Meetings Not on dian e 10/21/2024 Marital Status Not on file 10/21/2024 PHQ-2 Answer Date Recorded PHQ-2 Score 0 10/26/2024 [facility] of Occupat ional Health - Occupational Stress [...] in an abandoned building, in an overnight [facility], or couch-surfing.) Yes 10/21/2024 Are you worried [...] Sex Assigned at Female 07/18/2020 1:16 PM HAIR SPRING WINDER Legal Sex Female 3:23 AM HAIR SPRING WINDER Gender Identity Female 07/18/2020 1:16 PM HAIR SPRING WINDER Sexual Orientation Straight 07/18/2020 1: 16 PM HAIR SPRING WINDER 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 Patient has upcoming urology appointment on 11/16/2024. Per emergency room notes: Schedule an appointment with Mary Garcia MD as soon as possible for a visit in 2 days (around 11/09/2024) Sent Jule Gamet message to patient. Thank you, Samson Marx RN [facility] 11:20 AM 11/09/2024 documented in this encounter Plan of Treatment Upcoming Encounters Date Type Department Care Team (Late st Contact Info) Description 11/16/2024 1:00 PM CDT Allied Health/Nurse Visit [facility] Urology [address] [phone] Lucero Birtt PA-C 500 [place], [place] [address] 11/16/2024 2:45 PM CDT Office Visit [facility] Urology [address] [phone] Vivien Blanchard MD 420 [facility] 394 [place], [place] [address] 11/20/2024 3:30 PM CDT Office Visit [facility] [address] [place] [phone] [place] [address] [place] [address] 11/22/2024 9:15 AM CDT Office Visit [facility] Heart [facility] [address] [facility] [address] [place] [address] Federico Linda MD 0857 [facility] [address] [place], [place] [address] 11/30/2024 10:30 AM CDT Lab [facility] [address] [place] [address] 12/06/2024 10:10 AM CDT Office Visit [facility] 6525 [facility] 200 [place] [phone] Virgie Lobato PA-Javi [address] [place] [address] 12/28/2024 11:00 AM CDT Office Visit [facility] [address] [phone] [place] [address] [place] [address] 01/26/2025 11:30 AM CDT Office Visit [facility] [address] [place] [phone] [place] [address] [place] [address] documented as of this encounter Goals Goal Patient Goal Type Associated Problems Recent Progress Patient-Stated? Author Problem Solving General On track( 019 9:24 AM HAIR SPRING WINDER) Yes Sheryl Stringer RD Note: My Goal: [...] documented as of this encounter Care Teams Packing Room Worker Relationship Specialty [place] [address] [place] [address] PCP - General Family Medicine 04/11/24 Sheryl Stringer, ELI [address] [place] [address] Safe And Vault Mechanic Dietitian, Registered 11/03/17 Federico Linda MD 6405 [facility] [place] [address] [place], [place] [address] Assigned Heart and Vascular Provider 03/29/20 Jc Zavala MD [place] [facility] [address] [place], [place] [address] Hematology & Oncology 08/07/21 Cristofer Michelle MD 6 [facility] PMB 1E [place] [address] Gastroenterology 07/28/22 Vivien Blanchard MD 420 [facility] [address] [place] [address] Urology 07/28/22 Teetee Velazquez PA-C [address] [place] [address] Physician Machine Clipper 05/11/23 Teetee Velazquez PA-C [address] [place] [address] Assigned Surgical Provider 07/01/23 [place] [address] [place] , [address] [place] [address] Assigned Musculoskeletal Provider 08/20/23 Lanie Foster, RD, LD [address] [place] 7[address]45 Registered Dietitian Nutrition 05/15/24 [place] [address] [place] [address] Assigned PCP 05/29/24 Melonie Caro [facility] [address] [place] [address] Pharmacist Pharmacist 06/05/24 Federico Linda MD [address] [facility] [address] [place] [address] Cardiovascular Disease 06/13/24 Melonie Caro [facility] [address] [place] [address] Assigned MTM Pharmacist 06/29/24 Virgie Lobato, PA-C [address] [place] [address] 521835 Assigned Nephrology Provider 07/30/24 Barry Ybarra MD [facility] [address] Hospitalist Infectious Diseases 08/31/24 Barry Ybarra MD [address] [address] Assigned Infectious Disease Provider 10/27/24 documented as of this encounter
--- OUTSIDE RECORDS SUMMARY | 2024-11-12 17:24 | XMS_ITS | Encounter Summary ---
Author Organization [facility] Address [address] [place] [address] Care Team Providers Care Photoradio Operator Name Role Phone Sheryl Stringer RD Unavailable [phone] Federico Linda MD Unavailable [phone] Jc Zavala MD Unavailable [phone] Cristofer Michelle MD Unavailable Vivien Blanchard MD Unavailable [phone] Teetee Velazquez-Jaiv Unavailable Teetee Velazquez PA-C Unavailable [phone] Brad Mayer DO Unavailable [phone] Mary Garcia MD Primary Care Provider Lanie Foster RD, LD Unavailabl e Mary Garcia MD Unavailable Melonie Caro [facility] Unavailable [phone] Federico Linda MD Unavailable [phone] VaniaMelonie duarte [facility] Unavailable [phone] Virgie Lobato PA-C Unavailable [phone] Barry Ybarra MD Unavailable [phone] Barry Ybarra MD Unavailable [phone] Reason for Visit * Reason Onset Date Comments Refill Request 10/31/2024 Encounter Details Date Type Department Care Team (Late st Contact Info) Description 10/31/2024 MyC Refill [facility] [address] [place] [address] [place] [address] [place] [address] Refill Request Social History Tobacco Use Types Packs/Day [...] re latives? Twice a week 10/21/2024 Attends Rastafari Services Not on file 10/21 Active Member of Clubs or Organizations Not on f ile 10/21/2024 Attends Club or Organization Meetings Not on dian e 10/21/2024 Marital Status Not on file 10/21/2024 PHQ-2 Answer Date Recorded PHQ-2 Score 0 10/26/2024 [facility] [place] of Occupat ional Health - Occupational Stress [...] Sex Assigned at Female 07/18/2020 1:16 PM SMALL ORDER CUTTER Legal Sex Female 3:23 AM SMALL ORDER CUTTER Gender Identity Female 07/18/2020 1:16 PM SMALL ORDER CUTTER Sexual Orientation Straight 07/18/2020 1: 16 PM SMALL ORDER CUTTER 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 Confirm patient is taking this medication. Document findings and route refill encounter to provider for approval or denial. documented in this encounter Plan of Treatment Upcoming Encounters Date Type Department Care Team (Late st Contact Info) Description 11/16/2024 1:00 PM CDT Allied Health/Nurse Visit [facility] Urology [address] [place] [address] Lucero Britt PA-C 500 [place], [place] [address]24[address] 11/16/2024 2:45 PM CDT Office Visit [facility] Urology [address] [address] Vivien Blanchard MD 420 [facility] 394 [place], [place] [address] 11/20/2024 3:30 PM CDT Office Visit [facility] [address] [place] [phone] [place] [address] [place] [address] 11/22/2024 9:15 AM CDT Office Visit [facility] Heart [facility] [address] [facility] [address] [place] [phone] Federico Linda MD 8013 [facility] [address] [place], [place] [address] 11/30/2024 10:30 AM CDT Lab [facility] [address] [place] [address] 12/06/2024 10:10 AM CDT Office Visit [facility] 6525 [facility] 200 [place] [address] Virgie Lobato PA-C 909 [place] [address] 12/28/2024 11:00 AM CDT Office [facility] 2945 [facility] 200 [place] [phone] Barry Ybarra MD [address] [place] [address] 01/26/2025 11:30 AM CDT Office Visit [facility] [address] [place] [phone] [place] [address] [place] [address] documented as of this encounter Goals Goal Patient Goal Type Associated Problems Recent Progress Patient-Stated? Author Problem Solving General On track( 019 9:24 AM SMALL ORDER CUTTER) Yes Sheryl Stringer RD Note: My Goal: [...] documented as of this encounter Care Teams Photoradio Operator Relationship Specialty [place] [address] [place] [address] PCP - General Family Medicine 04/11/[address] [facility] [address] [place] [address] [place] [address] Bedspread Inspector Dietitian, Registered 11/03/17 Federico Linda MD 6405 [facility] [address] [place] [address] Assigned Heart and Vascular Provider 03/29/20 Jc Zavala MD [facility] 675 [address] [facility] 100 [place] [address] Hematology & Oncology 08/07/21 Cristofer Michelle MD [address] [place] [address] [place] [address] Gastroenterology 07/28/22 Vivien Blanchard MD 420 [facility] 394 [place], [place] [address] Urology 07/28/22 Teetee Velazquez PA-C [address] [place] [address] Physician Driver License Reviewing Officer 05/11/23 Teetee Velazquez PA-C [address] [place] [address] Assigned Surgical Provider 07/01/23 [place] [address] [address] ESPINOSA, RUST [address] [place], [place] [address] Assigned Musculoskeletal Provider 08/20/23 Lanie Foster, RD, LD [address] [place] [id number] Registered Dietitian Nutrition 05/15/24 [place] [address] [place] [address] Assigned PCP 05/29/24 Melonie Caro [facility] [address] [place] [address] Pharmacist Pharmacist 06/05/24 Federico Linda MD [address] [place] [address] Cardiovascular Disease 06/13/24 Melonie Caro [facility] [address] [place] [address] Assigned MTM Pharmacist 06/29/24 Virgie Lobato, PAAnthonyC [address] [place] [address] Assigned Nephrology Provider 07/30/24 Barry Ybarra MD [address] [place] [address] Hospitalist Infectious Diseases 08/31/24 Barry Ybarra MD [address] [place] [address] Assigned Infectious Disease Provider 10/27/24 documented as of this encounter
--- OUTSIDE RECORDS SUMMARY | 2024-11-12 17:24 | XMS_ITS | Encounter Summary ---
Author Organization [facility] Address [address] [place] [address] Care Team Providers Care Child And Adolescent Psychiatrist Name Role Phone Sheryl Stringer RD Unavailable [phone] Federico Linda MD Unavailable [phone] Jc Zavala MD Unavailable [phone] Cristofer Michelle MD Unavailable Vivien Blanchard MD Unavailable Teetee Velazquez-Javi Unavailable [phone] Teetee Velazquez PA-C Unavailable [phone] Brad Mayer DO Unavailable [phone] Mary Garcia MD Primary Care Provider Lanie Foster RD, LD Unavailabl e Mary Garcia MD Unavailable Melonie Caro [facility] Unavailable Federico Linda MD Unavailable [phone] VaniaMelonie duarte [facility] Unavailable [phone] Virgie Lobato PA-C Unavailable [phone] Barry Ybarra MD Unavailable [phone] Barry Ybarra MD Unavailable [phone] Reason for Visit * Reason Onset Date Comments Results 11/08/2024 Encounter Details Date Type Department Care Team (Late st Contact Info) Description 11/08/2024 Telephone [facility] Nurse Advisors 7[address] [place] [address] Rut Britton, RN Results Social History Tobacco Use Types Packs/Day Years [...] re latives? Twice a week 10/21/2024 Attends Tenriism Services Not on file 10/21 Active Member of Clubs or Organizations Not on f ile 10/21/2024 Attends Club or Organization Meetings Not on dian e 10/21/2024 Marital Status Not on file 10/21/2024 PHQ-2 Answer Date Recorded PHQ-2 Score 0 10/26/2024 [facility] of Occupat ional Health - Occupational Stress [...] in an abandoned building, in an overnight usp, or couch-surfing.) Yes 10/21/2024 Are you worried [...] Sex Assigned at Female 07/18/2020 1:16 PM UNIT CLERK Legal Sex Female 3:23 AM UNIT CLERK Gender Identity Female 07/18/2020 1:16 PM UNIT CLERK Sexual Orientation Straight 07/18/2020 1: 16 PM UNIT CLERK 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 [facility] Reason for call: Lab Result Notification Lab Result (including Rx patient on, if applicable). If culture, copy of lab report at bottom. Lab Result: final urine culture START taking these medications Details nitroFURantoin macrocrystal-monohydrate (MACROBID) 100 MG capsule Take 1 capsule (100 mg) by mouth 2 times daily., Disp-14 capsule, R-0, E-Prescribe Susceptible Creatinine Level (mg/dl) Creatinine Date Value Ref Range Status 11/06/2024 1.54 (H) 0.51 - 0.95 mg/dL Final 12/03/2020 1.27 (H) 0.52 - 1.04 mg/dL Final Creatinine clearance (ml/min), if applicable Serum creatinine: 1.54 mg/dL (H) 11/06/242228 Estimated creatinine clearance: 27.9 mL/min (A) Patient's current Symptoms: Unable to assess, left message. ED symptoms = abdominal pain, nausea and vomiting RN Recommendations/Instructions per [facility] ED lab result protocol: Continue antibiotic/medication as prescribed: based on symptoms Rut Britton, RN documented in this encounter Plan of Treatment Upcoming Encounters Date Type Department Care Team (Late st Contact Info) Description 11/16/2024 1:00 PM CDT Allied Health/Nurse Visit [facility] Urology [address] [phone] Lucero Britt PA-C 500 [place], [place] [address] 11/16/2024 2:45 PM CDT Office Visit [facility] Urology [address] [place] [phone] Vivien Blanchard MD [address] 8833[address] 11/20/2024 3:30 PM CDT Office Visit [address] [address] [place] [address] [place] [address] 11/22/2024 9:15 AM CDT Office Visit [facility] Heart [facility] [address] [facility] 140 [place] [phone] Federico Linda MD 6405 [facility] [address] [place] [address] 11/30/2024 10:30 AM CDT Lab [facility] [address] [place] [phone] 12/06/2024 10:10 AM CDT Office Visit [facility] 6525 [facility] 200 [place] [phone] Virgie Lobato, PA-C [address] [place] [address] 12/28/2024 11:00 AM CDT Office Visit [facility] 2945 [facility] 200 [place] [phone] Barry Ybarra MD [address] [address] 01/26/2025 11:30 AM CDT Office Visit [facility] [address] [place] [address] [place] [address] [place] [address] documented as of this encounter Goals Goal Patient Goal Type Associated Problems Recent Progress Patient-Stated? Author Problem Solving General On track( 019 9:24 AM UNIT CLERK) Yes Sheryl Stringer RD Note: My [...] documented as of this encounter Care Teams Child And Adolescent Psychiatrist Relationship Specialty [place] [address] [place] [address] PCP - General Family Medicine 04/11/[address] [place] [address] Preschool Adviser Dietitian, Registered 11/03/17 Federico Linda MD 6405 [facility] [address] [place], [place] [address] Assigned Heart and Vascular Provider 03/29/20 Jc Zavala MD [facility] [address] [place], [place] [address] Hematology & Oncology 08/07/21 Cristofer Michelle MD 516 [facility] PMB 1E [place], [place] [address]32[address] Gastroenterology 07/28/22 Vivien Blanchard MD [address] [facility] 394 [place], [place] [address] Urology 07/28/22 Teetee Velazquez PA-C 909 [place] [address] Physician Ammunition Supervisor 05/11/23 Teetee Velazquez PA-C [address] [place] [address] 562755 Assigned Surgical Provider 07/01/23 [place] [address] [place] , [facility] 300 [place], [place] 7[address]27 Assigned Musculoskeletal Provider 08/20/23 Lanie Foster, RD, LD [address] [place] [address]275 Registered Dietitian Nutrition 05/15/24 [place] [address] [place] [address] Assigned PCP 05/29/24 Melonie Caro [facility] [address] [place], [place] 86[address]87 Pharmacist Pharmacist 06/05/24 Federico Linda MD [address] [facility] [address] [place] [address] Cardiovascular Disease 06/13/24 Melonie Caro [facility] [address] [place] [address] Assigned MTM Pharmacist 06/29/24 Virgie Lobato PA-C 909 [place] [address] Assigned Nephrology Provider 07/30/24 Barry Ybarra MD [address] [place] [address] Hospitalist Infectious Diseases 08/31/24 Barry Ybarra MD [address] [place] [address] Assigned Infectious Disease Provider 10/27/24 documented as of this encounter
--- OUTSIDE RECORDS SUMMARY | 2024-11-12 17:25 | XMS_ITS | Encounter Summary ---
Author Organization [facility] Address [address] [place] [address] Care Team Providers Care Pathology Tech Name Role Phone Sheryl Stringer RD Unavailable [phone] Federico Linda MD Unavailable [phone] Jc Zavala MD Unavailable [phone] Cristofer Michelle MD Unavailable Vivien Blanchard MD Unavailable [phone] Teetee Velazquez-Javi Unavailable Teetee Velazquez PA-C Unavailable Brad Mayer DO Unavailable [phone] Mary Garcia MD Primary Care Provider Lanie Foster RD, LD Unavailabl e Mary Garcia MD Unavailable Melonie Caro [facility] Unavailable Federico Linda MD Unavailable [phone] VaniaMelonie duarte [facility] Unavailable [phone] Virgie Lobato PA-C Unavailable [phone] Barry Ybarra MD Unavailable [phone] Barry Ybarra MD Unavailable [phone] Reason for Visit * Reason Comments Medication Refill Encounter Details Date Type Department Care Team (Late st Contact Info) Description 10/07/2024 Refill [facility] [address] [place] [address] Trina Carbajal PA-C [address] [facility] 200 [place] [address] Medication Refill Social History Tobacco Use Types Packs/Day Years [...] Answer Date Recorded Do you have housing? 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 Not on file Not on file documented as of this encounter Plan of Treatment Upcoming Encounters Date Type Department Care Team (Late st Contact Info) Description 11/16/2024 1:00 PM CDT Allied Health/Nurse Visit [facility] Urology [address] [address] Lucero Britt PA-C 500 [place], [place] [address] 11/16/2024 2:45 PM CDT Office Visit [facility] Urology [address] [address] Vivien Blanchard MD 420 [facility] 394 [place] [address] 11/20/2024 3:30 PM CDT Office Visit [facility] [address] [place] [phone] [place] [address] [place] [address] 11/22/2024 9:15 AM CDT Office Visit [facility] Heart [facility] [address] [facility] [address] [place] [phone] Federico Linda MD 6405 [facility] [address] [place], [place] [address] 11/30/2024 10:30 AM CDT Lab [facility] [address] [place] [phone] 12/06/2024 10:10 AM CDT Office Visit [facility] 6525 [facility] 200 [place] [phone] Virgie Lobato, PA-C [address] [place] [address] 12/28/2024 11:00 AM CDT Office Visit [facility] [address] [place] [phone] [place] [address] [place] [address] 01/26/2025 11:30 AM CDT Office Visit [facility] [address] [place] [phone] [place] [address] [place], [place] 5[address]64[address] documented as of this encounter Goals Goal Patient Goal Type Associated Problems Recent Progress Patient-Stated? Author Problem Solving General On track( 019 9:24 AM TECHNICAL PLANNER) Yes Sheryl Stringer, ELI Note: My Goal: [...] Total Score: 3 05/02/20 24 1:39 PM TECHNICAL PLANNER documented as of this encounter Care Teams Pathology Tech Relationship Specialty [place] [address] [place] [address] PCP - General Family Medicine 04/11/24 Sheryl Stringer, RD [address] [place] [address] [employer] Dietitian, Registered 11/03/17 Federico Linda MD 6405 [facility] [address] [place], [place] [address] Assigned Heart and Vascular Provider 03/29/20 Jc Zavala MD [place] [facility] [address] [place], [place] [address] Hematology & Oncology 08/07/21 Cristofer Michelle MD [address] [place] [address] 1E [place] [address] Gastroenterology 07/28/22 Vivien Blanchard MD [address] [place] [address] 394 [place] [address] Urology 07/28/22 Teetee Velazquez PA-C [address] [place] [address] Physician Director Of Provider Relations 05/11/23 Teetee Velazquez PA-C [address] [place] [address] 616305 Assigned Surgical Provider 07/01/23 [place] [address] [address] Assigned Musculoskeletal Provider 08/20/23 Lanie Foster, RD, LD [address] [place] [place] 346725 Registered Dietitian Nutrition 05/15/24 [place] [address] [place] [address] Assigned PCP 05/29/24 Melonie Caro [facility] [address] [place] [address] Pharmacist Pharmacist 06/05/24 Federico Linda MD [address] [facility] [address] [place] [address] Cardiovascular Disease 06/13/24 Melonie Caro [facility] [address] [place] [address] Assigned MTM Pharmacist 06/29/24 Virgie Lobato PA-C [address] [place] [address] Assigned Nephrology Provider 07/30/24 Barry Ybarra MD [address] [place] [address] Hospitalist Infectious Diseases 08/31/24 Barry Ybarra MD [address] [place] [address] Assigned Infectious Disease Provider 10/27/24 documented as of this encounter
--- OUTSIDE RECORDS SUMMARY | 2024-11-12 17:25 | XMS_ITS | Encounter Summary ---
Author Organization [place] Address [address] [place] [address] Care Team Providers Care Instant Print Operator Name Role Phone Sheryl Stringer RD Unavailable [phone] Federico Linda MD Unavailable [phone] Jc Zavala MD Unavailable [phone] Cristofer Michelle MD Unavailable Vivien Blanchard MD Unavailable Teetee Velazquez-Javi Unavailable [phone] Teetee Velazquez PA-C Unavailable Brad Mayer DO Unavailable [phone] Mary Garcia MD Primary Care Provider [phone], LD Unavailabl e Mary Garcia MD Unavailable Melonie Caro [facility] Unavailable Federico Linda MD Unavailable [phone] VaniaMelonie duarte [facility] Unavailable [phone] Virgie Lobato PA-C Unavailable [phone] Barry Ybarra MD Unavailable [phone] Reason for Visit * Reason Comments Medication Refill Encounter Details Date Type Department Care Team (Late st Contact Info) Description 09/29/2024 Refill [facility] [id number] [place] [phone] Marjorie Schultz PA-C [address] [place] [address] Medication Refill Social History Tobacco Use Types [...] an overnight senior care, or couch-surfing.) Yes 09/01/2024 Are you worried [...] Sex Assigned at Female 07/18/2020 1:16 PM MOLDER HAND Legal Sex Female 3:23 AM MOLDER HAND Gender Identity Female 07/18/2020 1:16 PM MOLDER HAND Sexual Orientation Straight 07/18/2020 1: 16 PM MOLDER HAND 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 Kika ZEPEDA, RN, PHN * Telephone Encounter - Ree Tuttle RN - 09/29/2024 10:29 AM CDT Clinic RN: Please investigate patient's chart or contact patient if the information cannot be foundbecause patient should have run out of this medication on 05/09/2024. Confirm patient is taking this medication as prescribed. Document findings and route refill encounter to provider for approval ordenial. documented in this encounter Plan of Treatment Upcoming Encounters Date Type Department Care Team (Late st Contact Info) Description 11/16/2024 1:00 PM CDT Allied Health/Nurse Visit [facility] [address] [place] [address] [address] [place] [phone] Lucero Britt PA-C 500 [place], [place] 7549[address] 11/16/2024 2:45 PM CDT Office Visit [facility] [address] [place] [address] Vivien Blanchard MD 420 [facility] 394 [place] [address] 11/20/2024 3:30 PM CDT Office Visit [facility] [address] [place] [phone] [place] [address] [place] [address] 11/22/2024 9:15 AM CDT [facility] 737[address] [facility] [address] [place] [phone] Federico Linda MD 6408 [facility] [address] [place], [place] [address] 11/30/2024 10:30 AM CDT Lab [facility] [address] [place] [phone] 12/06/2024 10:10 AM CDT Office Visit [facility] 6525 [facility] [address] [place] [address] Virgie Lobato PA-C [address] [place] [address] 12/28/2024 11:00 AM CDT Office Visit [facility] 2945 [facility] 200 [place] [phone] Barry Ybarra MD 2945 [facility] 200 [place] [address] 01/26/2025 11:30 AM CDT Office Visit [facility] [address] [place] [address] [place] [address] [place] [address] documented as of this encounter Goals Goal Patient Goal Type Associated Problems Recent Progress Patient-Stated? 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 [place] [address] Diamond Selector Dietitian, Registered 11/03/17 Federico Linda MD [address] [facility] [facility] [address] [place] [address] Assigned Heart and Vascular Provider 03/29/20 Jc Zavala MD [facility] [address] 100 [place] [address] Hematology & Oncology 08/07/21 Cristofer Michelle MD 6 [facility] PMB 1E [place], [place] 6[address] Gastroenterology 07/28/22 Vivien Blanchard MD 420 [facility] 394 [place], [place] 152805 Urology 07/28/22 Teetee Velazquez, PA-C 909 [place], [place] 767745 Physician Medical Coder 05/11/23 Teetee Velazquez, PA-C 909 [place], [place] 315765 Assigned Surgical Provider 07/01/23 [place] [address] [address], [address] [place] [address] Assigned Musculoskeletal Provider 08/20/23 Lanie Foster, RD, LD [address] [place] [address] Registered Dietitian Nutrition 05/15/24 [place] [address] [address] [address] Assigned PCP 05/29/24 Melonie Caro RPH [address] [place] [address] Pharmacist Pharmacist 06/05/24 Federico Linda MD 6405 [facility] [address] [place] [address] Cardiovascular Disease 06/13/24 Melonie Caro RPH [address] [place] [address] Assigned MTM Pharmacist 06/29/24 Virgie Lobato PAAnthnoyC [address] [place] [address] Assigned Nephrology Provider 07/30/24 Barry Ybarra MD [facility] [address] Hospitalist Infectious Diseases 08/31/24 documented as of this encounter
--- OUTSIDE RECORDS SUMMARY | 2024-11-12 17:25 | XMS_ITS | Encounter Summary ---
Author Organization [place] Address [address] [place] [address] Care Team Providers Care Media Operator Name Role Phone Sheryl Stringer RD Unavailable [phone] Federico Linda MD Unavailable [phone] Jc Zavala MD Unavailable [phone] Cristofer Michelle MD Unavailable [phone] Vivien Blanchard MD Unavailable [phone] Teetee Velazquez-Javi Unavailable [phone] Teetee Velazquez PA-C Unavailable [phone] Brad Mayer DO Unavailable [phone] Mary Garcia MD Primary Care Provider Lanie Foster RD, LD Unavailabl e Mary Garcia MD Unavailable Melonie Caro [facility] Unavailable Federico Linda MD Unavailable [phone] VaniaMelonie duarte [facility] Unavailable [phone] Virgie Lobato PA-C Unavailable [phone] Barry Ybarra MD Unavailable [phone] Encounter Details Date Type Department Care Team (Latest Contact Info) Description 10/21/2024 Travel Social History Tobacco Use Types Packs/Day [...] re latives? Twice a week 10/21/2024 Attends [employer] Services Not on file 10/21 Active Member of Clubs or Organizations Not on f ile 10/21/2024 Attends Club or Organization Meetings Not on dian e 10/21/2024 Marital Status Not on file 10/21/2024 PHQ-2 Answer Date Recorded PHQ-2 Score 0 09/13/2024 [facility] [place] of Occupat ional Health - Occupational Stress [...] in an abandoned building, in an overnight long term, or couch-surfing.) Yes 10/21/2024 Are you worried [...] Sex Assigned at Female 07/18/2020 1:16 PM BACKPACKERS MANAGER Legal Sex Female 3:23 AM BACKPACKERS MANAGER Gender Identity Female 07/18/2020 1:16 PM BACKPACKERS MANAGER Sexual Orientation Straight 07/18/2020 1: 16 PM BACKPACKERS MANAGER 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 file Not on file documented as of this encounter Plan of Treatment Upcoming Encounters Date Type Department Care Team (Late st Contact Info) Description 11/16/2024 1:00 PM CDT Allied Health/Nurse Visit [facility] [address] [address] Lucero Britt PA-C [address] [place] [address] 3939[address] 11/16/2024 2:45 PM CDT Office Visit [facility] Urology [address] [place] [phone] Vivien Blanchard MD 420 [facility] 394 [place], [place] 8[address] 11/20/2024 3:30 PM CDT Office Visit [facility] [address] [place] [phone] [place] [address] [place] [address] 11/22/2024 9:15 AM CDT Office Visit [facility] [address] [facility] [address] [place] [address] Federico Linda MD 640 [facility] [address] [place], [place] [address] 11/30/2024 10:[address] [facility] [address] [place] [phone] 12/06/2024 10:10 AM CDT Office Visit [facility] [address] [phone] Virgie Lobato, PA-C 909 [place] [address] 12/28/2024 11:00 AM CDT Office Visit [facility] 2945 [facility] 200 [place] [address] [place] [address] [place] [address] 200 [place] [address] 01/26/2025 11:30 AM CDT Office Visit [address] [address] [place] [address] [place] [address] documented as of this encounter Goals Goal Patient Goal Type Associated Problems Recent Progress Patient-Stated? Author Problem Solving General On track( 019 9:24 AM BACKPACKERS MANAGER) Yes Sheryl Stringer, ELI Note: My [...] Total Score: 3 05/02/20 24 1:39 PM BACKPACKERS MANAGER documented as of this encounter Care Teams Media Operator Relationship Specialty [place] [address] [place] [address] PCP - General Family Medicine 04/11/24 Sheryl Stringer, RD [address] [place] [address] Bottom Stop Attacher Dietitian, Registered 11/03/17 Federico Linda MD 6405 [facility] [address] [place] [address] Assigned Heart and Vascular Provider 03/29/20 Jc Zavala MD [facility] [address] [place] [address] Hematology & Oncology 08/07/21 Cristofer Michelle MD [address] [place], [place] [address]B 1E [place] [address] Gastroenterology 07/28/22 Vivien Blanchard MD 420 [facility] 394 [place], [place] [address] Urology 07/28/22 Teetee Velazquez PA-C 909 [place], [place] 731425 Physician Traffic Worker 05/11/23 Teetee Velazquez PA-C 909 [place], [place] 060345 Assigned Surgical Provider 07/01/23 [place] [address] [address] Assigned Musculoskeletal Provider 08/20/23 Lanie Foster, RD, LD [address] [place] 306515 Registered Dietitian Nutrition 05/15/24 [place] [address] [place] [address] Assigned PCP 05/29/24 Melonie Caro [facility] [place] [address] Pharmacist Pharmacist 06/05/24 Federico Linda MD [address] [facility] [address] [place] [address] Cardiovascular Disease 06/13/24 Melonie Caro [facility] [address] [place] [address] Assigned [place] Pharmacist 06/29/24 Virgie Lobato, PAAnthonyC [address] [place] [address] Assigned Nephrology Provider 07/30/24 Barry Ybarra MD [facility] [address] [address] Hospitalist Infectious Diseases 08/31/24 documented as of this encounter
--- OUTSIDE RECORDS SUMMARY | 2024-11-12 17:25 | XMS_ITS | Encounter Summary ---
Author Organization [place] Address [address] [place] [address] Care Team Providers Care Human Anatomy Teacher Name Role Phone Sheryl Stringer RD Unavailable [phone] Federico Linda MD Unavailable [phone] Jc Zavala MD Unavailable [phone] Cristofer Michelle MD Unavailable [phone] Vivien Blanchard MD Unavailable [phone] Teetee Velazquez-Javi Unavailable Teetee Velazquez PA-C Unavailable Brad Mayer DO Unavailable [phone] Mary Garcia MD Primary Care Provider [phone], LD Unavailabl e Mary Garcia MD Unavailable Melonie Caro [facility] Unavailable Federico Linda MD Unavailable [phone] Melonie Caro [facility] Unavailable [phone] Virgie Lobato PA-C Unavailable [phone] Barry Ybarra MD Unavailable [phone] Barry Ybarra MD Unavailable [phone] Reason for Visit * Reason Onset Date Comments MyChart Communication 10/25/2024 Encounter Details Date Type Department Care Team (Latest Contact Info) Description 10/25/2024 MyC Medical Advice [facility] [address] [place] [address] [place] [address] [place] [address] MyChart Communication Social History Tobacco [...] re latives? Twice a week 10/21/2024 Attends [employer] Services Not on file 10/21 Active Member of Clubs or Organizations Not on f ile 10/21/2024 Attends Club or Organization Meetings Not on dian e 10/21/2024 Marital Status Not on file 10/21/2024 PHQ-2 Answer Date Recorded PHQ-2 Score 0 10/26/2024 [facility] [place] of Occupat ional Health - Occupational Stress [...] in an abandoned building, in an overnight fdc, or couch-surfing.) Yes 10/21/2024 Are you worried [...] Sex Assigned at Female 07/18/2020 1:16 PM ASSISTANT PASTRY CHEF Legal Sex Female 3:23 AM ASSISTANT PASTRY CHEF Gender Identity Female 07/18/2020 1:16 PM ASSISTANT PASTRY CHEF Sexual Orientation Straight 07/18/2020 1: 16 PM ASSISTANT PASTRY CHEF 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 909 [facility] 4th [place] [phone] Lucero Britt PA-C 500 [place], [place] [address] 11/16/2024 2:45 PM CDT Office Visit [facility] 909 [facility] 4th [place] [phone] Vivien Blanchard MD 420 [facility] 394 [place], [place] [address] 11/20/2024 3:30 PM CDT Office Visit [facility] [address] [place] [phone] [place] [address] [place] [address] 11/22/2024 9:15 AM CDT Office [facility] 375[address] [facility] [address] [place] [phone] Federico Linda MD 6408 [facility] [address] [place], [place] [address] 11/30/2024 10:30 AM CDT Lab [facility] [address] [place] [address] 12/06/2024 10:10 AM CDT Office [facility] Specialty [facility] 6525 [facility] 200 [place] [address] Virgie Lobato PA-C [address] [place] [address] 495745 12/28/2024 11:00 AM CDT Office Visit [facility] 2945 [facility] 200 [place] [address] Barry Ybarra MD 2945 [facility] 200 [place] [address] 01/26/2025 11:30 AM CDT Office Visit [facility] [address] [place] [address] [place] [address] [place] [address] documented as of this encounter Goals Goal Patient Goal Type Associated Problems Recent Progress Patient-Stated? Author Problem Solving General On track( 019 9:24 AM ASSISTANT PASTRY CHEF) Yes Sheryl Stringer RD Note: My Goal: [...] documented as of this encounter Care Teams Human Anatomy Teacher Relationship Specialty [place] [address] [place] [address] PCP - General Family Medicine 04/11/[address] [place] [address] Grocery Clerk Dietitian, Registered 11/03/17 Federico Linda MD 6405 [facility] [address] [place] [address]6515 Assigned Heart and Vascular Provider 03/29/20 Jc Zavala MD [place] [facility] [address] 100 [place] [address] Hematology & Oncology 08/07/21 Cristofer Michelle MD 6 [facility] [address] [place] [address] Gastroenterology 07/28/22 Vivien Blanchard MD [address] [place] [address] 394 [place], [place] [address] Urology 07/28/22 Teetee Velazquez PA-C [address] [place] [address] Physician Auto Body Straightener 05/11/23 Teetee Velazquez PA-C [address] [place] [address] 091465 Assigned Surgical Provider 07/01/23 [place] [address] [address] ESPINOSA, [address] [address] Assigned Musculoskeletal Provider 08/20/23 Lanie Foster, RD, LD [address] [place] 509375 Registered Dietitian Nutrition 05/15/24 [place] [address] [place] [address] Assigned PCP 05/29/24 Melonie Caro RPH [address] [place] [address] Pharmacist Pharmacist 06/05/24 Federico Linda MD [address] [place] [address] Cardiovascular Disease 06/13/24 Melonie Caro RPH [address] [place] [address] Assigned MTM Pharmacist 06/29/24 Virgie Lobato, PAAnthonyC [address] [place] [address] Assigned Nephrology Provider 07/30/24 Barry Ybarra MD [address] [place] [address] Hospitalist Infectious Diseases 08/31/24 Barry Ybarra MD [address] [place] [address] Assigned Infectious Disease Provider 10/27/24 documented as of this encounter
--- OUTSIDE RECORDS SUMMARY | 2024-11-12 17:25 | XMS_ITS | Encounter Summary ---
Author Organization [place] Address [address] [place] [address] Care Team Providers Care Sewing Trimmer Name Role Phone Sheryl Stringer RD Unavailable [phone] Federico Linda MD Unavailable [phone] Jc Zavala MD Unavailable [phone] Cristofer Michelle MD Unavailable Vivien Blanchard MD Unavailable Teetee Velazquez-Javi Unavailable Teetee Velazquez PA-C Unavailable [phone] Brad Mayer DO Unavailable [phone] Mary Garcia MD Primary Care Provider [phone], LD Unavailabl e Mary Garcia MD Unavailable Melonie Caro [facility] Unavailable Federico Linda MD Unavailable [phone] Melonie Caro [facility] Unavailable [phone] Virgie Lobato PA-C Unavailable [phone] Barry Ybarra MD Unavailable [phone] Encounter Details Date Type Department Care Team (Latest Contact Info) Description 09/28/2024 Travel Social History Tobacco Use Types Packs/Day [...] in an overnight correction, or couch-surfing.) Yes 09/01/2024 Are you worried [...] Sex Assigned at Female 07/18/2020 1:16 PM STUDENT SUCCESS COUNSELOR Legal Sex Female 3:23 AM STUDENT SUCCESS COUNSELOR Gender Identity Female 07/18/2020 1:16 PM STUDENT SUCCESS COUNSELOR Sexual Orientation Straight 07/18/2020 1: 16 PM STUDENT SUCCESS COUNSELOR 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 file Not on file documented as of this encounter Plan of Treatment Upcoming Encounters Date Type Department Care Team (Late st Contact Info) Description 11/16/2024 1:00 PM CDT Allied Health/Nurse Visit [facility] [address] [phone] Lucero Britt PA-C 500 [place], [place] [address] 11/16/2024 2:45 PM CDT Office Visit [facility] [address] [phone] Vivien Blanchard MD [address] 9[address] 11/20/2024 3:30 PM CDT Office Visit [address] [address] Mary Garcia MD [address] [place] [address] 11/22/2024 9:15 AM CDT Office Visit [facility] [place] [address] [facility] [address] [place] [address] Federico Linda MD 6405 [facility] [address] [place] [address] 11/30/2024 10:30 AM CDT Lab [facility] [address] [place] [address] 12/06/2024 10:10 AM CDT Office Visit [facility] 6525 [facility] [address] [place] [address] Virgie Lobato, PA-C 909 [place] [address] 12/28/2024 11:00 AM CDT Office Visit [facility] 2945 [facility] 200 [place] [address] Barry Ybarra MD 2945 [facility] 200 [place] [address] 01/26/2025 11:30 AM CDT Office Visit [facility] [address] [place] [address] [place] [address] [place] [address] documented as of this encounter Goals Goal Patient Goal Type Associated Problems Recent Progress Patient-Stated? Author Problem Solving General On track( 019 9:24 AM STUDENT SUCCESS COUNSELOR) Yes Sheryl Stringer RD Note: My Goal: [...] Total Score: 3 05/02/20 24 1:39 PM STUDENT SUCCESS COUNSELOR documented as of this encounter Care Teams Sewing Trimmer Relationship Specialty [place] [address] [address] [place] [address] PCP - General Family Medicine 04/11/[address] [facility] [address] [place] [address] [address] [place] [id number] Surgical Aide Dietitian, Registered 11/03/17 Federico Linda MD 6405 [facility] [address] [place], [place] [address] Assigned Heart and Vascular Provider 03/29/20 Jc Zavala MD [place] [facility] 675 [facility] 100 [place] [address] Hematology & Oncology 08/07/21 Cristofer Michelle MD 6 [facility] PMB 1E [place] [address] Gastroenterology 07/28/22 Vivien Blanchard MD 420 [facility] 394 [place] [address] Urology 07/28/22 Teetee Velazquez, GIUSEPPEC 909 [place] [address] Physician Pmo Project Manager 05/11/23 Teetee Velazquez PA-C [address] [place] [address] 579155 Assigned Surgical Provider 07/01/23 [place] [address] [facility], [facility] 300 [place] [address] Assigned Musculoskeletal Provider 08/20/23 Lanie Foster, RD, LD [address] [place], [place] [address] Registered Dietitian Nutrition 05/15/24 [place] [address] [address] [place], [place] 0583144 Assigned PCP 05/29/24 Melonie Caro [facility] [address] [place], [place] [address] Pharmacist Pharmacist 06/05/24 Federico Linda MD [address] [facility] [address] [place] [address] Cardiovascular Disease 06/13/24 Melonie Caro [facility] [address] [place] [address] Assigned MTM Pharmacist 06/29/24 Virgie Lobato PA-C [address] [place] [address] Assigned Nephrology Provider 07/30/24 Barry Ybarra MD [address] [address] Hospitalist Infectious Diseases 08/31/24 documented as of this encounter
--- OUTSIDE RECORDS SUMMARY | 2024-11-12 17:25 | XMS_ITS | Encounter Summary ---
Author Organization [facility] Address [address] [place] [address] Care Team Providers Care Basketballs And Footballs Reverser Name Role Phone Sheryl Stringer RD Unavailable [phone] Federico Linda MD Unavailable [phone] Jc Zavala MD Unavailable [phone] Cristofer Michelle MD Unavailable Vivien Blanchard MD Unavailable Teetee Velazquez-Javi Unavailable Teetee Velazquez PA-C Unavailable Brad Mayer DO Unavailable [phone] Mary Garcia MD Primary Care Provider [phone], LD Unavailabl e Mary Garcia MD Unavailable Melonie Caro [facility] Unavailable [phone] Federico Linda MD Unavailable [phone] Melonie Caro [facility] Unavailable [phone] Virgie Lobato PA-C Unavailable [phone] Barry Ybarra MD Unavailable [phone] Reason for Visit * Reason Comments Medication Refill Encounter Details Date Type Department Care Team (Late st Contact Info) Description 10/07/2024 Refill [facility] [address] [place] [address] [place] [address] [place] [address] Medication Refill Social History Tobacco Use Types [...] in an abandoned building, in an overnight residential, or couch-surfing.) Yes 09/01/2024 Are you worried [...] Sex Assigned at Female 07/18/2020 1:16 PM MANAGER RADIO Legal Sex Female 3:23 AM MANAGER RADIO Gender Identity Female 07/18/2020 1:16 PM MANAGER RADIO Sexual Orientation Straight 07/18/2020 1: 16 PM MANAGER RADIO 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 Not on file Not on file documented as of this encounter Plan of Treatment Upcoming Encounters Date Type Department Care Team (Late st Contact Info) Description 11/16/2024 1:00 PM CDT Allied Health/Nurse Visit [facility] Urology [address] [address] Lucero Britt PA-C 500 [place], [place] 381275 11/16/2024 2:45 PM CDT Office Visit [facility] [address] [address] Vivien Blanchard MD 420 [facility] 394 [place], [place] 47[address]25 11/20/2024 3:30 PM CDT Office Visit [place] [address] [place] [address] [place] [address] [place], [place] 64313[address] 11/22/2024 9:15 AM CDT Office Visit [facility] 113[address] [facility] [address] [place] [address] Federico Linda MD 6405 [facility] [address] [place] [address] 11/30/2024 10:30 AM CDT Lab [facility] [address] [place] [phone] 12/06/2024 10:10 AM CDT Office Visit [facility] 6525 [facility] 200 [place] [address] Virgie Lobato, PA-C [address] [place] [address] 12/28/2024 11:00 AM CDT Office [facility] [address] [place] [phone] Barry Ybarra MD [address] [place] [address] 01/26/2025 11:30 AM CDT Office Visit [facility] [address] [place] [address] [place] [address] [place] [address] documented as of this encounter Goals Goal Patient Goal Type Associated Problems Recent Progress Patient-Stated? 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 [address] [place] [address] Assigned Heart and Vascular Provider 03/29/20 Jc Zavala MD [facility] [address] 100 [place] [address] Hematology & Oncology 08/07/21 Cristofer Michelle MD 6 [facility] PMB 1E [place], [place] [address] Gastroenterology 07/28/22 Vivien Blanchard MD 420 [facility] 394 [place], [place] 581842 Urology 07/28/22 Teetee Velazquez PA-C 909 [place] [address] Physician Cook Helper Fruit 05/11/23 Teetee Velazquez PA-C 909 [place] [address] Assigned Surgical Provider 07/01/23 [place] [address] [address] Assigned Musculoskeletal Provider 08/20/23 Lanie Foster, RD, LD [address] [place] [address] Registered Dietitian Nutrition 05/15/24 [place] [address] [place] [address] Assigned PCP 05/29/24 Melonie Caro [facility] [address] [place] [address] Pharmacist Pharmacist 06/05/24 Federico Linda MD 6405 [address] [facility] [address] [place] 60[address] Cardiovascular Disease 06/13/24 Melonie Caro Gin [address] [place] [address] Assigned MTM Pharmacist 06/29/24 Virgie Lobato PA-C 9 [place], [place] 339015 Assigned Nephrology Provider 07/30/24 Barry Ybarra MD [address] [address] Hospitalist Infectious Diseases 08/31/24 documented as of this encounter
--- OUTSIDE RECORDS SUMMARY | 2024-11-12 17:25 | XMS_ITS | Encounter Summary ---
Author Organization [facility] Address [address] [place] [address] Care Team Providers Care Chain Tender Name Role Phone Sheryl Stringer RD Unavailable [phone] Federico Linda MD Unavailable [phone] Jc Zavala MD Unavailable [phone] Cristofer Michelle MD Unavailable [phone] Vivien Blanchard MD Unavailable [phone] Teetee Velazquez-Javi Unavailable Teetee Velazquez PA-C Unavailable Brad Mayer DO Unavailable [phone] Mary Garcia MD Primary Care Provider [phone], LD Unavailabl e Mary Garcia MD Unavailable [facility]onie [facility] Unavailable Federico Linda MD Unavailable [phone] VaniaMelonie duarte [facility] Unavailable [phone] Virgie Lobato PA-C Unavailable [phone] Barry Ybarra MD Unavailable [phone] Barry Ybarra MD Unavailable [phone] Encounter Details Date Type Department Care Team (Late st Contact Info) Description 10/06/2024 MyC Medical Advice [facility] [place] [address] [facility] [address] [place] [address] Vivien Blanchard MD 420 [facility] 394 [place] [address] Social History Tobacco Use Types [...] Answer Date Recorded Do you have housing? 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 For follow up discussion) Specialty phone number: [phone] Additional appointment(s) needed: follow up appt with Dr. Blanchard after UDS Additonal Notes: documented in this encounter Plan of Treatment Upcoming Encounters Date Type Department Care Team (Late st Contact Info) Description 11/16/2024 1:00 PM CDT Allied Health/Nurse Visit [facility] [address] [phone] Lucero Britt PA-C 500 [place], [place] 90[address] 11/16/2024 2:45 PM CDT Office Visit [facility] Urology [facility] 909 [facility] [address] 4th [place] [phone] Vivien Blanchard MD 420 [facility] 394 [place], [place] 2[address] 11/20/2024 3:30 PM CDT Office Visit [facility] [address] [place] [phone] [place] [address] [place], [place] 8788[address] 11/22/2024 9:15 AM CDT Office Visit [facility] Heart [facility] [address] [facility] [address] [place] [address] Federico Linda MD 6405 [facility] [address] [place], [place] 3[address] 11/30/2024 10:30 AM CDT Lab [facility] [address] [place] [phone] 12/06/2024 10:10 AM CDT Office Visit [facility] Specialty [facility] 6525 [facility] 200 [place] [address] Virgie Lobato PA-C 909 [place], [place] 714035 12/28/2024 11:00 AM CDT Office Visit [facility] 2945 [facility] [address] [place] [phone] Barry Ybarra MD 2945 [facility] [address] [place] [address] 01/26/2025 11:30 AM CDT Office Visit [facility] [address] [place] [address] [place] [address] [place] [address] documented as of this encounter Goals Goal Patient Goal Type Associated Problems Recent Progress Patient-Stated? Author Problem Solving General On track( 019 9:24 AM LINE DRIVER) Yes Sheryl Stringer RD Note: My Goal: [...] Total Score: 3 05/02/20 24 1:39 PM LINE DRIVER documented as of this encounter Care Teams Chain Tender Relationship Specialty [place] [address] [place] [address] PCP - General Family Medicine 04/11/[address] [facility] [address] [place] [address] [place] [address] Pcat Instructor Dietitian, Registered 11/03/17 Federico Linda MD 6405 [address] [facility] [address] [place] [address] Assigned Heart and Vascular Provider 03/29/20 Jc Zavala MD [facility] [address] 100 [place] [address] Hematology & Oncology 08/07/21 Cristofer Michelle MD 516 [facility] PMB 1E [place], [place] [address] Gastroenterology 07/28/22 Vivien Blanchard MD 420 [facility] 394 [place], [place] [address]24[address] Urology 07/28/22 Teetee Velazquez, PA-C 909 [place] [address] Physician Event Marketing Representative 05/11/23 Teetee Velazquez, PA-C 909 [place] [address] Assigned Surgical Provider 07/01/23 [place] [address] RONALD ESPINOSA, [address] 855897 Assigned Musculoskeletal Provider 08/20/23 Lanie Foster, RD, LD [address] [place] [address] Registered Dietitian Nutrition 05/15/24 [place] [address] [place] [address] Assigned PCP 05/29/24 Melonie Caro R[facility] [address] [place] [address] Pharmacist Pharmacist 06/05/24 Federico Linda MD [address] [place] [address] Cardiovascular Disease 06/13/24 Meloine Caro [facility] [address] [place] [address] Assigned MTM Pharmacist 06/29/24 Virgie Lobato, PAAnthonyC [address] [place] [address] Assigned Nephrology Provider 07/30/24 Barry Ybarra MD [address] [place] [address] Hospitalist Infectious Diseases 08/31/24 Barry Ybarra MD [address] [place] [address] Assigned Infectious Disease Provider 10/27/24 documented as of this encounter
--- OUTSIDE RECORDS SUMMARY | 2024-11-12 17:25 | XMS_ITS | Encounter Summary ---
Author Organization [place] Address [address] [place] [address] Care Team Providers Care Test Deskman Name Role Phone Sheryl Stringer RD Unavailable [phone] Federico Linda MD Unavailable [phone] Jc Zavala MD Unavailable [phone] Cristofer Michelle MD Unavailable Vivien Blanchard MD Unavailable [phone] Teetee Velazquez-Javi Unavailable Teetee Velazquez PA-C Unavailable Brad Mayer DO Unavailable [phone] Mary Garcia MD Primary Care Provider Lanie Foster RD, LD Unavailabl e Mary Garcia MD Unavailable Melonie Caro [facility] Unavailable Federico Linda MD Unavailable [phone] Melonie Caro [facility] Unavailable [phone] Virgie Lobato PA-C Unavailable [phone] Barry Ybarra MD Unavailable [phone] Encounter Details Date Type Department Care Team (Latest Contact Info) Description 10/13/2024 Travel Social History Tobacco Use Types Packs/Day [...] in an abandoned building, in an overnight longterm, or couch-surfing.) Yes 09/01/2024 Are you worried [...] Sex Assigned at Female 07/18/2020 1:16 PM AERODYNAMICS PROFESSOR Legal Sex Female 3:23 AM AERODYNAMICS PROFESSOR Gender Identity Female 07/18/2020 1:16 PM AERODYNAMICS PROFESSOR Sexual Orientation Straight 07/18/2020 1: 16 PM AERODYNAMICS PROFESSOR 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 Not on file documented as of this encounter Plan of Treatment Upcoming Encounters Date Type Department Care Team (Late st Contact Info) Description 11/16/2024 1:00 PM CDT Allied Health/Nurse Visit [facility] Urology [address] [phone] Lucero Britt PA-C 500 [place], [place] [address] 11/16/2024 2:45 PM CDT Office Visit [facility] Urology [address] [phone] Vivien Blanchard MD [address] 905775 11/20/2024 3:30 PM CDT Office Visit [address] [address] Mary Garcia MD [address] [place] [address] 11/22/2024 9:15 AM CDT Office Visit [facility] Heart [place] [address]01 [facility] [address] [place] [address] Federico Linda MD 6405 [facility] [address] [place] [address] 11/30/2024 10:30 AM CDT Lab [facility] [address] [place] [phone] 12/06/2024 10:10 AM CDT Office Visit [facility] 6525 [facility] [address] [place] [address] Virgie Lobato, PA-C 909 [place] [address] 12/28/2024 11:00 AM CDT Office Visit [facility] 2945 [facility] 200 [place] [address] Barry Ybarra MD 2945 [facility] 200 [place] [address] 01/26/2025 11:30 AM CDT Office Visit [facility] [address] [place] [address] [place] [address] [place] [address] documented as of this encounter Goals Goal Patient Goal Type Associated Problems Recent Progress Patient-Stated? Author Problem Solving General On track( 019 9:24 AM AERODYNAMICS PROFESSOR) Yes Sheryl Stringer RD Note: My Goal: [...] Total Score: 3 05/02/20 24 1:39 PM AERODYNAMICS PROFESSOR documented as of this encounter Care Teams Test Deskman Relationship Specialty [place] [address] [place] [address] PCP - General Family Medicine 04/11/[address] [facility] [address] [place] [address] [address] [place] [id number] Parole Supervisor Dietitian, Registered 11/03/17 Federico Linda MD 6405 [facility] [address] [place], [place] [address] Assigned Heart and Vascular Provider 03/29/20 Jc Zavala MD [facility] [address] [facility] 100 [place] [address] Hematology & Oncology 08/07/21 Cristofer Michelle MD 6 [facility] PMB 1E [place] [address] Gastroenterology 07/28/22 Vivien Blanchard MD 420 [facility] 394 [place] [address] Urology 07/28/22 Teetee Velazquez, GIUSEPPEC 909 [place] [address] Physician Warehouse Record Clerk 05/11/23 Teetee Velazquez PA-C [address] [place] [address] 420485 Assigned Surgical Provider 07/01/23 [place] [address] [facility] 300 [place] [address] Assigned Musculoskeletal Provider 08/20/23 Lanie Foster, RD, LD [address] [place], [place] [address] Registered Dietitian Nutrition 05/15/24 [place] [address] [address] [place], [place] 22758[address] Assigned PCP 05/29/24 Melonie Caro [facility] [address] [place], [place] 64[address] Pharmacist Pharmacist 06/05/24 Federico Linda MD [address] [facility] [address] [place] [address] Cardiovascular Disease 06/13/24 Melonie Caro [facility] [address] [place] [address] Assigned MTM Pharmacist 06/29/24 Virgie Lobato PA-C [address] [place] [address] Assigned Nephrology Provider 07/30/24 Barry Ybarra MD [address] [address] Hospitalist Infectious Diseases 08/31/24 documented as of this encounter
--- OUTSIDE RECORDS SUMMARY | 2024-11-12 17:25 | XMS_ITS | Encounter Summary ---
Author Organization [place] Address [address] [place] [address] Care Team Providers Care Sales Operations Lead Name Role Phone Sheryl Stringer RD Unavailable [phone] Federico Linda MD Unavailable [phone] Jc Zavala MD Unavailable [phone] Cristofer Michelle MD Unavailable [phone] Vivien Blanchard MD Unavailable [phone] Teetee Velaqzuez-Javi Unavailable [phone] Teetee Velazquez PA-C Unavailable [phone] Brad Mayer DO Unavailable [phone] Mary Garcia MD Primary Care Provider Lanie Foster RD, LD Unavailabl e Mary Garcia MD Unavailable [facility]on[facility] Unavailable [phone] Federico Linda MD Unavailable [phone] Melonie Caro [facility] Unavailable [phone] Virgie Lobato PA-C Unavailable [phone] Barry Ybarra MD Unavailable [phone] Barry Ybarra MD Unavailable [phone] Reason for Visit * Reason Onset Date Comments MyChart Communication 10/25/2024 Encounter Details Date Type Department Care Team (Latest Contact Info) Description 10/25/2024 MyC Medical Advice [facility] [address] [place] [address] [place] [address] [place] [address] MyChart Communication Social History Tobacco [...] re latives? Twice a week 10/21/2024 Attends Mandaeism Services Not on file 10/21 Active Member of Clubs or Organizations Not on f ile 10/21/2024 Attends Club or Organization Meetings Not on dian e 10/21/2024 Marital Status Not on file 10/21/2024 PHQ-2 Answer Date Recorded PHQ-2 Score 0 10/26/2024 [facility] [place] of Occupat ional Health - Occupational Stress [...] in an abandoned building, in an overnight fci, or couch-surfing.) Yes 10/21/2024 Are you worried [...] Sex Assigned at Female 07/18/2020 1:16 PM HIGH CLIMBER Legal Sex Female 3:23 AM HIGH CLIMBER Gender Identity Female 07/18/2020 1:16 PM HIGH CLIMBER Sexual Orientation Straight 07/18/2020 1: 16 PM HIGH CLIMBER 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 Urology [facility] 909 [facility] 4th [place] [phone] Lucero Britt PA-C 500 [place], [place] 3[address] 11/16/2024 2:45 PM CDT Office Visit [facility] Urology [facility] 909 [facility] 4th [place] [phone] Vivien Blanchard MD 420 [facility] 394 [place], [place] [address] 11/20/2024 3:30 PM CDT Office Visit [facility] [address] [place] [phone] Mary [place] [address] [place] [address] 11/22/2024 9:15 AM CDT Office Visit [facility] Heart [facility] [address] [facility] [address] [place] [address] Federico Linda MD 6401 [facility] [address] [place], [place] [address] 11/30/2024 10:30 AM CDT Lab [facility] [address] [place] [address] 12/06/2024 10:10 AM CDT Office Visit [facility] Specialty [facility] 6525 [facility] 200 [place] [address] Virgie Lobato PA-C [address] [place] [address] 321595 12/28/2024 11:00 AM CDT Office Visit [facility] 2945 [facility] 200 [place] [address] Barry Ybarra MD 2945 [facility] 200 [place] [address] 01/26/2025 11:30 AM CDT Office Visit [facility] [address] [place] [address] [place] [address] [place] [address] documented as of this encounter Goals Goal Patient Goal Type Associated Problems Recent Progress Patient-Stated? Author Problem Solving General On track( 019 9:24 AM HIGH CLIMBER) Yes Sheryl Stringer RD Note: My Goal: [...] as of this encounter Care Teams Sales Operations Lead Relationship Specialty [place] [address] [place] [address] PCP - General Family Medicine 04/11/[address] [place] [address] Lockstitch Waistband Setter Dietitian, Registered 11/03/17 Federico Linda MD 6405 [facility] [address] [place] [address] Assigned Heart and Vascular Provider 03/29/20 Jc Zavala MD [place] [facility] [place] [address] 100 [place] [address] Hematology & Oncology 08/07/21 Cristofer Michelle MD 6 [facility] [address] [place] [address] Gastroenterology 07/28/22 Vivien Blanchard MD [address] [place] [address] 394 [place], [place] 880[address] Urology 07/28/22 Teetee Velazquez PA-C [address] [place] [address] Physician Cooler Operator 05/11/23 Teetee Velazquez PA-C [address] [place] [address] 106835 Assigned Surgical Provider 07/01/23 [place] [address] RONALD ESPINOSA, [address] [address] Assigned Musculoskeletal Provider 08/20/23 Lanie Foster, RD, LD [address] [place] 368285 Registered Dietitian Nutrition 05/15/24 [place] [address] [address] [place] [address] Assigned PCP 05/29/24 Melonie Caro R[facility] [address] [place] [address] Pharmacist Pharmacist 06/05/24 Federico Linda MD [address] [place] [address] Cardiovascular Disease 06/13/24 Melonie Caro R[facility] [address] [place] [address] Assigned MTM Pharmacist 06/29/24 Virgie Lobato, PAAnthonyC [address] [place] [address] Assigned Nephrology Provider 07/30/24 Barry Ybarra MD [address] [place] [address] Hospitalist Infectious Diseases 08/31/24 Barry Ybarra MD [address] [place] [address] Assigned Infectious Disease Provider 10/27/24 documented as of this encounter
--- OUTSIDE RECORDS SUMMARY | 2024-11-12 17:25 | XMS_ITS | Encounter Summary ---
Author Organization [place] Address [address] [place] [address] Care Team Providers Care Travel Information Center Supervisor Name Role Phone Sheryl Stringer RD Unavailable [phone] Federico Linda MD Unavailable [phone] Jc Zavala MD Unavailable [phone] Cristofer Michelle MD Unavailable [phone] Vivien Blanchard MD Unavailable Teetee Velazquez-Javi Unavailable Teetee Velazquez PA-C Unavailable Brad Mayer DO Unavailable [phone] Mary Garcia MD Primary Care Provider Lanie Foster RD, LD Unavailabl e Mary Garcia MD Unavailable Melonie Caro [facility] Unavailable Federico Linda MD Unavailable [phone] VaniaMelonie duarte [facility] Unavailable [phone] Virgie Lobato PA-C Unavailable [phone] Barry Ybarra MD Unavailable [phone] Encounter Details Date Type Department Care Team (Late st Contact Info) Description 10/12/2024 Telephone [facility] Clinic [address] 4th [place] [address] Jessica Menchaca RN Social History Tobacco Use Types Packs/Day [...] Sex Assigned at Female 07/18/2020 1:16 PM WIRE STRETCHER Legal Sex Female 3:23 AM WIRE STRETCHER Gender Identity Female 07/18/2020 1:16 PM WIRE STRETCHER Sexual Orientation Straight 07/18/2020 1: 16 PM WIRE STRETCHER 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 Not on file documented as of this encounter Plan of Treatment Upcoming Encounters Date Type Department Care Team (Late st Contact Info) Description 11/16/2024 1:00 PM CDT Allied Health/Nurse Visit [facility] Urology [address] [address] Lucero Britt PA-C 500 [place], [place] [address] 11/16/2024 2:45 PM CDT Office Visit [facility] Urology [address] [phone] Vivien Blanchard MD 420 [facility] 394 [place], [place] [address] 11/20/2024 3:30 PM CDT Office Visit [address] [address] Mary Garcia MD [address] [place] [address] 11/22/2024 9:15 AM CDT Office Visit [facility] Heart [facility] [address] [facility] [address] [place] [address] Federico Linda MD 6405 [facility] [address] [place] [address] 11/30/2024 10:30 AM CDT Lab [facility] [address] [place] [address] 12/06/2024 10:10 AM CDT Office [facility] 6525 [facility] 200 [place] [address] Virgie Lobato, PA-C [address] [place] [address] 12/28/2024 11:00 AM CDT Office Visit [facility] 2945 [facility] [address] [place] [address] Barry Ybarra MD 2945 [facility] 200 [place] [address] 01/26/2025 11:30 AM CDT Office Visit [facility] [address] [place] [address] [place] [address] [place] [address] documented as of this encounter Goals Goal Patient Goal Type Associated Problems Recent Progress Patient-Stated? Author Problem Solving General On track( 019 9:24 AM WIRE STRETCHER) Yes Sheryl Stringer RD Note: My Goal: [...] Total Score: 3 05/02/20 24 1:39 PM WIRE STRETCHER documented as of this encounter Care Teams Travel Information Center Supervisor Relationship Specialty [place] [address] [place] [address] PCP - General Family Medicine 04/11/[address] [place] [address] Branch Administrator Dietitian, Registered 11/03/17 Federico Linda MD 6405 [facility] [address] [place], [place] 156495 Assigned Heart and Vascular Provider 03/29/20 Jc Zavala MD [facility] [address] 100 [place], [place] [address] Hematology & Oncology 08/07/21 Cristofer Michelle MD 6 [facility]E [place], [place] 39[address] Gastroenterology 07/28/22 Vivien Blanchard MD 420 [facility] 394 [place], [place] [address] Urology 07/28/22 Teetee Velazquez, PA-C [address] [place] [address] Physician Hose Suspender Cutter 05/11/23 Teetee Velazquez PA-C [address] [place] [address] Assigned Surgical Provider 07/01/23 [place] [address] [facility], [address] [address] Assigned Musculoskeletal Provider 08/20/23 Lanie Foster, RD, LD [address] [place], [place] 6187[address] Registered Dietitian Nutrition 05/15/24 [place] [address] [place] [address] Assigned PCP 05/29/24 Melonie Caro Gin [address] [place], [place] 523357 Pharmacist Pharmacist 06/05/24 Federico Linda MD 6405 [facility] [address] [place] [address] Cardiovascular Disease 06/13/24 Melonie Caro R[facility] [address] [place], [place] 504317 Assigned MTM Pharmacist 06/29/24 Virgie Lobato PA-C [address] [place] [address] 861655 Assigned Nephrology Provider 07/30/24 Barry Ybarra MD [address] [place] [address] Hospitalist Infectious Diseases 08/31/24 documented as of this encounter
--- OUTSIDE RECORDS SUMMARY | 2024-11-12 17:25 | XMS_ITS | Encounter Summary ---
Author Organization [place] Address [address] [place] [address] Care Team Providers Care Data Reviewer Name Role Phone Sheryl Stringer RD Unavailable [phone] Federico Linda MD Unavailable [phone] Jc Zavala MD Unavailable [phone] Cristofer Michelle MD Unavailable Vivien Blanchard MD Unavailable Teetee Velazquez-Javi Unavailable Teetee Velazquez PA-C Unavailable Brad Mayer DO Unavailable [phone] Mary Garcia MD Primary Care Provider [phone], LD Unavailabl e Mary Garcia MD Unavailable Melonie Caro [facility] Unavailable Federico Linda MD Unavailable [phone] Melonie Caro [facility] Unavailable [phone] Virgie Lobato PA-C Unavailable [phone] Barry Ybarra MD Unavailable [phone] Encounter Details Date Type Department Care Team (Latest Contact Info) Description 10/18/2024 Travel Social History Tobacco Use Types Packs/Day [...] in an overnight prison, or couch-surfing.) Yes 09/01/2024 Are you worried [...] Sex Assigned at Female 07/18/2020 1:16 PM METER REPAIR SHOP SUPERVISOR Legal Sex Female 3:23 AM METER REPAIR SHOP SUPERVISOR Gender Identity Female 07/18/2020 1:16 PM METER REPAIR SHOP SUPERVISOR Sexual Orientation Straight 07/18/2020 1: 16 PM METER REPAIR SHOP SUPERVISOR 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 Not on file documented as of this encounter Plan of Treatment Upcoming Encounters Date Type Department Care Team (Late st Contact Info) Description 11/16/2024 1:00 PM CDT Allied Health/Nurse Visit [facility] Urology [address] [phone] Lucero Britt PA-C 500 [place], [place] [address] 11/16/2024 2:45 PM CDT Office Visit [facility] Urology [address] [phone] Vivien Blanchard MD [address] 40[address] 11/20/2024 3:30 PM CDT Office Visit [address] [address] Mary Garcia MD [address] [place] [address] 11/22/2024 9:15 AM CDT Office Visit [facility] Heart [place] [address] [facility] [address] [place] [address] Federico Linda MD 6405 [facility] [address] [place] [address] 11/30/2024 10:30 AM CDT Lab [facility] Laboratory [address] [place] [address] 12/06/2024 10:10 AM CDT [facility] Visit [facility] 6525 [facility] [address] [place] [address] Virgie Lobato, PA-C 909 [place] [address] 12/28/2024 11:00 AM CDT Office [facility] 2945 [facility] 200 [place] [address] Barry Ybarra MD 2945 [facility] 200 [place] [address] 01/26/2025 11:30 AM CDT Office Visit [facility] [address] [place] [address] [place] [address] [place] [address] documented as of this encounter Goals Goal Patient Goal Type Associated Problems Recent Progress Patient-Stated? Author Problem Solving General On track( 019 9:24 AM METER REPAIR SHOP SUPERVISOR) Yes Sheryl Stringer RD Note: My Goal: [...] Total Score: 3 05/02/20 24 1:39 PM METER REPAIR SHOP SUPERVISOR documented as of this encounter Care Teams Data Reviewer Relationship Specialty [place] [address] [place] [address] PCP - General Family Medicine 04/11/[address] [facility] [address] [place] [address] [address] [place] [id number] Otolaryngology Nurse Dietitian, Registered 11/03/17 Federico Linda MD 6405 [facility] [address] [place], [place] 371265 Assigned Heart and Vascular Provider 03/29/20 Jc Zavala MD [facility] 675 [facility] 100 [place] [address] Hematology & Oncology 08/07/21 Cristofer Michelle MD 6 [facility] 1E [place] [address] Gastroenterology 07/28/22 Vivien Blanchard MD 420 [facility] 394 [place] [address] Urology 07/28/22 Teetee Velazquez, GIUSEPPEC 909 [place] [address] Physician News Production Assistant 05/11/23 Teetee Velazquez PA-C [address] [place] [address] 191145 Assigned Surgical Provider 07/01/23 [place] [address] [facility] 300 [place] [address] Assigned Musculoskeletal Provider 08/20/23 Lanie Foster, RD, LD [address] [place], [place] [address] Registered Dietitian Nutrition 05/15/24 [place] [address] [address] [place], [place] 78350[address] Assigned PCP 05/29/24 Melonie Caro [facility] [address] [place], [place] 6[address]367 Pharmacist Pharmacist 06/05/24 Federico Linda MD [address] [facility] [address] [place] [address] Cardiovascular Disease 06/13/24 Melonie Caro [facility] [address] [place] [address] Assigned MTM Pharmacist 06/29/24 Virgie Lobato PA-C [address] [place] [address] Assigned Nephrology Provider 07/30/24 Barry Ybarra MD [address] [address] Hospitalist Infectious Diseases 08/31/24 documented as of this encounter
--- OUTSIDE RECORDS SUMMARY | 2024-11-12 17:25 | XMS_ITS | Encounter Summary ---
Author Organization [place] Address [address] [place] [address] Care Team Providers Care Special Skills Officer Name Role Phone Sheryl Stringer RD Unavailable [phone] Federico Linda MD Unavailable [phone] Jc Zavala MD Unavailable [phone] Cristofer Michelle MD Unavailable [phone] Vivien Blanchard MD Unavailable Teetee Velazquez-Javi Unavailable Teetee Velazquez PA-C Unavailable Brad Mayer DO Unavailable [phone] Mary Garcia MD Primary Care Provider Lanie Foster RD, LD Unavailabl e Mary Garcia MD Unavailable Melonie Caro [facility] Unavailable Federico Linda MD Unavailable [phone] Melonie Caro [facility] Unavailable [phone] Virgie Lobato PA-C Unavailable [phone] Barry Ybarra MD Unavailable [phone] Encounter Details Date Type Department Care Team (Latest Contact Info) Description 10/07/2024 Travel Social History Tobacco Use Types Packs/Day [...] an overnight long term, or couch-surfing.) Yes 09/01/2024 Are you worried [...] Sex Assigned at Female 07/18/2020 1:16 PM PROSTHETIC TECHNICIAN Legal Sex Female 3:23 AM PROSTHETIC TECHNICIAN Gender Identity Female 07/18/2020 1:16 PM PROSTHETIC TECHNICIAN Sexual Orientation Straight 07/18/2020 1: 16 PM PROSTHETIC TECHNICIAN 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 file documented as of this encounter Plan of Treatment Upcoming Encounters Date Type Department Care Team (Late st Contact Info) Description 11/16/2024 1:00 PM CDT Allied Health/Nurse Visit [facility] Urology [address] [phone] Lucero Britt PA-C 500 [place], [place] [address]1955 11/16/2024 2:45 PM CDT Office Visit [facility] Urology [address] [phone] Vivien Blanchard MD [address] 023405 11/20/2024 3:30 PM CDT Office Visit [address] [address] Mary Garcia MD [address] [place] [address] 11/22/2024 9:15 AM CDT Office Visit [facility] Heart [place] [address] [facility] [address] [place] [address] Federico Linda MD 6405 [facility] [address] [place] [address] 11/30/2024 10:30 AM CDT Lab [facility] Laboratory [address] [place] [address] 12/06/2024 10:10 AM CDT Office Visit [facility] 6525 [facility] [address] [place] [address] Virgie Lobato, PA-C 909 [place] [address] 12/28/2024 11:00 AM CDT Office Visit [facility] 2945 [facility] 200 [place] [address] Barry Ybarra MD 2945 [facility] 200 [place] [address] 01/26/2025 11:30 AM CDT Office [facility] [address] [place] [address] [place] [address] [place] [address] documented as of this encounter Goals Goal Patient Goal Type Associated Problems Recent Progress Patient-Stated? Author Problem Solving General On track( 019 9:24 AM PROSTHETIC TECHNICIAN) Yes Sheryl Stringer RD Note: My [...] Total Score: 3 05/02/20 24 1:39 PM PROSTHETIC TECHNICIAN documented as of this encounter Care Teams Special Skills Officer Relationship Specialty [place] [address] [address] [place] [address] PCP - General Family Medicine 04/11/[address] [facility] [address] [place] [address] [address] [place] [id number] Green Chainer Dietitian, Registered 11/03/17 Federico Linda MD 6405 [facility] [address] [place], [place] [address]95 Assigned Heart and Vascular Provider 03/29/20 Jc Zavala MD [facility] 675 E [facility] 100 [place] [address] Hematology & Oncology 08/07/21 Cristofer Michelle MD 6 [facility] PMB 1E [place] [address] Gastroenterology 07/28/22 Vivien Blanchard MD 420 [facility] 394 [place] [address] Urology 07/28/22 Teetee Velazquez, GIUSEPPEC 909 [place] [address] Physician Plating Equipment Tender 05/11/23 Teetee Velazquez PA-C [address] [place] [address] 823595 Assigned Surgical Provider 07/01/23 [place] [address] [facility] 300 [place] [address] Assigned Musculoskeletal Provider 08/20/23 Lanie Foster, RD, LD [address] [place], [place] [address] Registered Dietitian Nutrition 05/15/24 [place] [address] [address] [place], [place] 55429[address] Assigned PCP 05/29/24 Melonie Caro [facility] [address] [place], [place] 3479[address] Pharmacist Pharmacist 06/05/24 Federico Linda MD [address] [facility] [address] [place] [address] Cardiovascular Disease 06/13/24 Melonie Caro [facility] [address] [place] [address] Assigned MTM Pharmacist 06/29/24 Virgie Lobato PA-C [address] [place] [address] Assigned Nephrology Provider 07/30/24 Barry Ybarra MD [address] [address] Hospitalist Infectious Diseases 08/31/24 documented as of this encounter
--- OUTSIDE RECORDS SUMMARY | 2024-11-12 17:25 | XMS_ITS | Encounter Summary ---
Author Organization [place] Address [address] [place] [address] Care Team Providers Care Agricultural Research Technician Name Role Phone Sheryl Stringer RD Unavailable [phone] Federico Linda MD Unavailable [phone] Jc Zavala MD Unavailable [phone] Cristofer Michelle MD Unavailable Vivien Blanchard MD Unavailable Teetee Velazquez-Javi Unavailable Teetee Velazquez PA-C Unavailable Brad Mayer DO Unavailable [phone] Mary Garcia MD Primary Care Provider Lanie Foster RD, LD Unavailabl e Mary Garcia MD Unavailable Melonie Caro [facility] Unavailable Federico Linda MD Unavailable [phone] VaniaLiborioMelonie [facility] Unavailable [phone] Virgie Lobato PA-C Unavailable [phone] Barry Ybarra MD Unavailable [phone] Barry Ybarra MD Unavailable [phone] Encounter Details Date Type Department Care Team (Late st Contact Info) Description 10/10/2024 MyC Medical Advice [facility] [place] [facility] [place] 6363 [facility] [address] [place] [address] Teetee Velazquez PA-C 909 [place] [address] Social History Tobacco Use Types [...] in an overnight halfway, or couch-surfing.) Yes 09/01/2024 Are you worried [...] Sex Assigned at Female 07/18/2020 1:16 PM TREE MARKER Legal Sex Female 3:23 AM TREE MARKER Gender Identity Female 07/18/2020 1:16 PM TREE MARKER Sexual Orientation Straight 07/18/2020 1: 16 PM TREE MARKER 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 Not on file documented as of this encounter Plan of Treatment Upcoming Encounters Date Type Department Care Team (Late st Contact Info) Description 11/16/2024 1:00 PM CDT Allied Health/Nurse Visit [facility] [address] [address] Lucero Britt PA-C 500 [place], [place] 98[address] 11/16/2024 2:45 PM CDT Office Visit [facility] [address] [address] Vivien Blanchard MD 420 [facility] 394 [place] [address] 11/20/2024 3:30 PM CDT [facility] Visit [facility] [address] [place] [phone] [place] [address] [place], [place] [address] 11/22/2024 9:15 AM CDT Office Visit [facility] [address] [facility] [address] [place] [address] Federico Linda MD 6405 [facility] [address] [place], [place] [address] 11/30/2024 10:30 AM CDT Lab [facility] Laboratory [address] [place] [address] 12/06/2024 10:10 AM CDT Office Visit [facility] 6525 [facility] 200 [place] [address] Virgie Lobato, PA-C [address] [place] [address] 12/28/2024 11:00 AM CDT Office Visit [address] [phone] Barry Ybarra MD [address] [place] [address] 01/26/2025 11:30 AM CDT [facility] Visit [facility] [address] [place] [phone] [place] [address] [place], [place] 1176644 documented as of this encounter Goals Goal Patient Goal Type Associated Problems Recent Progress Patient-Stated? Author Problem Solving General On track( 019 9:24 AM TREE MARKER) Yes Sheryl Stringer RD Note: My Goal: [...] Total Score: 3 05/02/20 24 1:39 PM TREE MARKER documented as of this encounter Care Teams Agricultural Research Technician Relationship Specialty [place] [address] [place] [address] PCP - General Family Medicine 04/11/[address] [place] [address] Mental Health Unit Lead Psychologist Dietitian, Registered 11/03/17 Federico Linda MD 6405 [facility] [address] [place] [address] Assigned Heart and Vascular Provider 03/29/20 Jc Zavala MD [facility] [address] 100 [place], [place] [address] Hematology & Oncology 08/07/21 Cristofer Michelle MD 516 [facility] PMB 1E [place], [place] [address] Gastroenterology 07/28/22 Vivien Blanchard MD 420 [facility] 394 [place] [address] Urology 07/28/22 Teetee Velazquez PA-C 909 [place] [address] Physician Dust Mixer 05/11/23 Teetee Velazquez PA-C 909 [place] [address] Assigned Surgical Provider 07/01/23 [place] [address] [address], [address] [address] Assigned Musculoskeletal Provider 08/20/23 Lanie Foster, RD, LD [address] [place], [place] [address] Registered Dietitian Nutrition 05/15/24 [place] [address] [place] [address] Assigned PCP 05/29/24 Melonie Caro [facility] [address] [place] [address] Pharmacist Pharmacist 06/05/24 Federico Linda MD [address] [facility] [address] [place] [address]65 Cardiovascular Disease 06/13/24 Melonie Caro [facility] [address] [place] [address] Assigned MTM Pharmacist 06/29/24 Virgie Lobato PA-C [address] [place] [address] Assigned Nephrology Provider 07/30/24 Barry Ybarra MD [address] [place] [address] Hospitalist Infectious Diseases 08/31/24 Barry Ybarra MD [address] [place] [address] Assigned Infectious Disease Provider 10/27/24 documented as of this encounter
--- OUTSIDE RECORDS SUMMARY | 2024-11-12 17:25 | XMS_ITS | Encounter Summary ---
Author Organization [place] Address [address] [place] [address] Care Team Providers Care Fishing Vessel Operator Name Role Phone Sheryl Stringer RD Unavailable [phone] Federico Linda MD Unavailable [phone] Jc Zavala MD Unavailable [phone] Cristofer Michelle MD Unavailable Vivien Blanchard MD Unavailable Teetee Velazquez-Javi Unavailable Teetee Velazquez PA-C Unavailable Brad Mayer DO Unavailable [phone] Mary Garcia MD Primary Care Provider Lanie Foster RD, LD Unavailabl e Mary Garcia MD Unavailable Melonie Caro [facility] Unavailable [phone] Federico Linda MD Unavailable [phone] VaniaMelonie duarte [facility] Unavailable [phone] Virgie Lobato PA-C Unavailable [phone] Barry Ybarra MD Unavailable [phone] Barry Ybarra MD Unavailable [phone] Reason for Visit * Reason Onset Date Comments Appointment 10/10/2024 Encounter Details Date Type Department Care Team (Late st Contact Info) Description 10/10/2024 Telephone [facility] U[facility] [place] [address] [place] [address] Vivien Blanchard MD 420 [facility] 394 [place] [address] Appointment Social History Tobacco Use Types Packs/Day Years [...] in an abandoned building, in an overnight skilled nursing, or couch-surfing.) Yes 09/01/2024 Are you worried [...] Sex Assigned at Female 07/18/2020 1:16 PM FINANCIAL AID MANAGER Legal Sex Female 3:23 AM FINANCIAL AID MANAGER Gender Identity Female 07/18/2020 1:16 PM FINANCIAL AID MANAGER Sexual Orientation Straight 07/18/2020 1: 16 PM FINANCIAL AID MANAGER 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 Please call her back to schedule per protocols. Thank you! Action Taken: Message routed to: [facility] Travel Screening: Not Applicable Date of Service: documented in this encounter Plan of Treatment Upcoming Encounters Date Type Department Care Team (Late st Contact Info) Description 11/16/2024 1:00 PM CDT Allied Health/Nurse Visit [facility] Urology [facility] [address] [facility] 4th [place] [phone] Lucero Britt PA-C 500 [place], [place] [address] 11/16/2024 2:45 PM CDT Office Visit [facility] Urology [facility] [address] [facility] 4th [place] [address] Vivien Blanchard MD 420 [facility] 394 [place], [place] [address] 11/20/2024 3:30 PM CDT Office Visit [facility] [address] [place] [address] [place] [address] [place] [address] 11/22/2024 9:15 AM CDT Office Visit [facility] Heart [facility] [address] [facility] [address] [place] [phone] Federico Linda MD [address] [facility] [address] [place], [place] [address] 11/30/2024 10:30 AM CDT Lab [facility] Laboratory [address] [place] [address] 12/06/2024 10:10 AM CDT Office Visit [facility] Specialty [facility] [address] [facility] [address] [place] [address] Virgie Lobato PAAnthonyC 909 [place], [place] [address] 12/28/2024 11:00 AM CDT Office Visit [address] [place] [address] Barry Ybarra MD 2945 [facility] 200 [place] [address] 01/26/2025 11:30 AM CDT Office Visit [facility] [address] [place] [phone] [place] [address] [place] [address] documented as of this encounter Goals Goal Patient Goal Type Associated Problems Recent Progress Patient-Stated? Author Problem Solving General On track( 019 9:24 AM FINANCIAL AID MANAGER) Yes Sheryl Stringer RD Note: My [...] Total Score: 3 05/02/20 24 1:39 PM FINANCIAL AID MANAGER documented as of this encounter Care Teams Fishing Vessel Operator Relationship Specialty [place] [address] [place] [address] PCP - General Family Medicine 04/11/[address] [facility] - [address] [place] [address] Milk Sampler Dietitian, Registered 11/03/17 Federico Linda MD 6[address] [facility] [address] [place] [address] Assigned Heart and Vascular Provider 03/29/20 Jc Zavala MD [facility] [facility] 100 [place] [address] Hematology & Oncology 08/07/21 Cristofer Michelle MD [facility] [place], [place] [address] Gastroenterology 07/28/22 Vivien Blanchard MD [address] [place] [address] 394 [place], [place] [id number] Urology 07/28/22 Teetee Velazquez PA-C [address] [place] [address] 033725 Physician Gearcase Assembler 05/11/23 Teetee Velazquez PA-C [address] [place] [address] 176615 Assigned Surgical Provider 07/01/23 [place] [address] [address], [address] [address] Assigned Musculoskeletal Provider 08/20/23 Lanie Foster, RD, LD [address] [place] 833415 Registered Dietitian Nutrition 05/15/24 [place] [address] [place] [id number] Assigned PCP 05/29/24 Melonie Caro [facility] [address] [place] [address] Pharmacist Pharmacist 06/05/24 Federico Linda MD [address] [place] [address] Cardiovascular Disease 06/13/24 Melonie Caro [facility] [address] [place] [address] Assigned MTM Pharmacist 06/29/24 Virgie Lobato, PAAnthonyC [address] [place] [address] Assigned Nephrology Provider 07/30/24 Barry Ybarra MD [address] [place] [address] Hospitalist Infectious Diseases 08/31/24 Barry Ybarra MD [address] [place] [address] Assigned Infectious Disease Provider 10/27/24 documented as of this encounter
--- OUTSIDE RECORDS SUMMARY | 2024-11-12 17:25 | XMS_ITS | Encounter Summary ---
Author Organization [place] Address [address] [place] [address] Care Team Providers Care Health Benefits Specialist Name Role Phone Sheryl Stringer RD Unavailable [phone] Federico Linda MD Unavailable [phone] Jc Zavala MD Unavailable [phone] Cristofer Michelle MD Unavailable Vivien Blanchard MD Unavailable [phone] Teetee Velazquez-Javi Unavailable [phone] Teetee Velazquez PA-C Unavailable [phone] Brad Mayer DO Unavailable [phone] Mary Garcia MD Primary Care Provider Lanie Foster RD, LD Unavailabl e Mary Garcia MD Unavailable Melonie Caro [facility] Unavailable [phone] Federico Linda MD Unavailable [phone] VaniaMelonie duarte [facility] Unavailable [phone] Virgie Lobato PA-C Unavailable [phone] Barry Ybarra MD Unavailable [phone] Encounter Details Date Type Department Care Team (Late st Contact Info) Description 10/12/2024 Telephone [facility] Urology [facility] [place] [address] [facility] [address] 4th [place] [address] Vivien Blanchard MD 420 [facility] SE [facility] 394 [place] [address] Social History Tobacco Use Types [...] in an abandoned building, in an overnight half-way, or couch-surfing.) Yes 09/01/2024 Are you worried [...] Assigned at Female 07/18/2020 1:16 PM MANAGER INTERNET RETAILS SALES Legal Sex Female 3:23 AM MANAGER INTERNET RETAILS SALES Gender Identity Female 07/18/2020 1:16 PM MANAGER INTERNET RETAILS SALES Sexual Orientation Straight 07/18/2020 1: 16 PM MANAGER INTERNET RETAILS SALES 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 For follow up discussion) Specialty phone number: [phone] Additional appointment(s) needed: follow up appt with Dr. Blanchard after UDS Additonal Notes: documented in this encounter Plan of Treatment Upcoming Encounters Date Type Department Care Team ([facility] st Contact Info) Description 11/16/2024 1:00 PM CDT Allied Health/Nurse Visit [facility] Urology Clinic [address]th [place] [address] Lucero Britt PA-C [address] [place] [address] 11/16/2024 2:45 PM CDT Office Visit [facility] Urology [facility] 909 [facility] 4th [place] [address] Vivien Blanchard MD 420 [facility] 394 [place], [place] [address] 11/20/2024 3:30 PM CDT Office Visit [facility] [address] [place] [address] [place] [address] [place] [address] 11/22/2024 9:15 AM CDT Office Visit [facility] Heart [facility] [address] [facility] [address] [place] [address] Federico Linda MD 6405 [facility] [address] [place], [place] [address] 11/30/2024 10:30 AM CDT Lab [facility] Laboratory [address] [place] [address] 12/06/2024 10:10 AM CDT Office Visit [facility] Specialty [facility] 6525 [facility] 200 [place] [address] Virgie Lobato, PA-C 909 [place] [address] 12/28/2024 11:00 AM CDT Office Visit [facility] 2945 [facility] 200 [place] [address] Barry Ybarra MD [address] [place] [address] 200 [place] [address] 01/26/2025 11:30 AM CDT Office Visit [facility] [address] [place] [address] [place] [address] [place] [address] documented as of this encounter Goals Goal Patient Goal Type Associated Problems Recent Progress Patient-Stated? Author Problem Solving General On track( 019 9:24 AM MANAGER INTERNET RETAILS SALES) Yes Sheryl Stringer RD Note: My Goal: [...] Score: 3 05/02/20 24 1:39 PM MANAGER INTERNET RETAILS SALES documented as of this encounter Care Teams Health Benefits Specialist Relationship Specialty [place] [address] [place] [address] PCP - General Family Medicine 04/11/[address] [place] [address] Sales Specialist Dietitian, Registered 11/03/17 Federico Linda MD [address] [facility] [address] [place] [address] Assigned Heart and Vascular Provider 03/29/20 Jc Zavala MD [facility] [address] [place] [address] Hematology & Oncology 08/07/21 Cristofer Michelle MD 6 [facility] 1[address] [place], [place] [address] Gastroenterology 07/28/22 Vivien Blanchard MD 420 [facility] 394 [place], [place] [address] Urology 07/28/22 Teetee Velazquez PA-C [address] [place] [address] 424715 Physician Cloud Services Architect 05/11/23 Teetee Velazquez PA-C [address] [place] [address] 923995 Assigned Surgical Provider 07/01/23 [place] [address] 8386[address] Assigned Musculoskeletal Provider 08/20/23 Lanie Foster, RD, LD [address] [place] [address] Registered Dietitian Nutrition 05/15/24 [place] [address] [place] [address] Assigned PCP 05/29/24 Melonie Caro RPH [facility] [address] [place], [place] 5970[address] Pharmacist Pharmacist 06/05/24 Federico Linda MD [address] [facility] [address] [place], [place] 80[address] Cardiovascular Disease 06/13/24 Melonie Caro RPH [address] [place], [place] 43[address] Assigned MTM Pharmacist 06/29/24 Virgie Lobato, PA-C 9 [place], [place] 114[address] Assigned Nephrology Provider 07/30/24 Barry Ybarra MD [facility]5 [facility] 200 [place], [place] [address] Hospitalist Infectious Diseases 08/31/24 documented as of this encounter
--- OUTSIDE RECORDS SUMMARY | 2024-11-12 17:26 | XMS_ITS | Encounter Summary ---
Author Organization [place] Address [address] [place] [address] Care Team Providers Care Evening Sitter Name Role Phone Sheryl Stringer RD Unavailable [phone] Federico Linda MD Unavailable [phone] Jc Zavala MD Unavailable [phone] Cristofer Michelle MD Unavailable [phone] Vivien Blanchard MD Unavailable [phone] Teetee Velazquez-Javi Unavailable Teetee Velazquez PA-C Unavailable Brad Mayer DO Unavailable [phone] Mary Garcia MD Primary Care Provider Lanie Foster RD, LD Unavailabl e Mary Garcia MD Unavailable Melonie Caro [facility] Unavailable [phone] Federico Linda MD Unavailable [phone] VaniaMelonie duarte [facility] Unavailable [phone] Virgie Lobato PA-C Unavailable [phone] Barry Ybarra MD Unavailable [phone] Barry Ybarra MD Unavailable [phone] Encounter Details Date Type Department Care Team (Late st Contact Info) Description 09/13/2024 Telephone [facility] 6553 [facility] 200 [place] [address] Stacia Curtis RN Social History Tobacco [...] Sex Assigned at Female 07/18/2020 1:16 PM DATA POWER CONSULTANT Legal Sex Female 3:23 AM DATA POWER CONSULTANT Gender Identity Female 07/18/2020 1:16 PM DATA POWER CONSULTANT Sexual Orientation Straight 07/18/2020 1: 16 PM DATA POWER CONSULTANT 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 Called patient's daughter, no answer.Left VM. * Telephone Encounter - Stacia Curtis RN - 09/13/2024 2:05 PM CDT Virgie Lobato, PAStacia Sosa, RN Please call pt in 2 weeks for BP report. She's going to start checking after her morning meds. Jarad Garvin documented in this encounter Plan of Treatment Upcoming Encounters Date Type Department Care Team (Late st Contact Info) Description 11/16/2024 1:00 PM CDT Allied Health/Nurse Visit [facility] Urology [address]th [place] [phone] Lucero Britt PA-C 500 [place], [place] [address] 11/16/2024 2:45 PM CDT Office Visit [facility] Urology [facility] 909 [facility] 4th [place] [phone] Vivien Blanchard MD 420 [facility] 394 [place], [place] [address] 11/20/2024 3:30 PM CDT Office Visit [facility] [address] [place] [address] [place] [address] [place], [place] [address] 11/22/2024 9:15 AM CDT Office [facility] Heart [facility] [address] [facility] [address] [place] [address] Federico Linda MD [address] [facility] [address] [place], [place] [address] 11/30/2024 10:30 AM CDT Lab [facility] [address] [place] [address] 12/06/2024 10:10 AM CDT Office [facility] Specialty [facility] 6525 [facility] 200 [place] [address] Virgie Lobato PA-C [address] [place] [address] 12/28/2024 11:00 AM CDT Office Visit [facility] [address] [facility] [address] [place] [address] Barry Ybarra MD [address] [facility] [address] [place] [address] 01/26/2025 11:30 AM CDT Office Visit [facility] [address] [place] [address] [place] [address] [place] [address] documented as of this encounter Goals Goal Patient Goal Type Associated Problems Recent Progress Patient-Stated? Author Problem Solving General On track( 019 9:24 AM DATA POWER CONSULTANT) Yes Sheryl Stringer RD Note: My Goal: [...] Last Indicated Resolved Time ESBL 07/05/2024 08/24/2024 Rule Out COVID-19 09/21/2024 09/21/2024 09/21/2024 3:25 PM CDT Assessment Noted Time PHQ-9 Depression Total Score: 3 05/02/20 24 1:39 PM DATA POWER CONSULTANT documented as of this encounter Care Teams Evening Sitter Relationship Specialty [place] [address] [place] [address] PCP - General Family Medicine 04/11/[address] [facility] [address] [place] [address] [place] [address] Maintenance Man Dietitian, Registered 11/03/17 Federico Linda MD [address] [facility] [address] [place] [address] Assigned Heart and Vascular Provider 03/29/20 Jc Zavala MD [facility] [address] [place] [address] Hematology & Oncology 08/07/21 Cristofer Michelle MD 6 [facility] 1E [place] [address] Gastroenterology 07/28/22 Vivien Blanchard MD [address] [place] [address] 394 [place], [place] [address] Urology 07/28/22 Teetee Velazquez PA-C [address] [place] [address] Physician Damascener 05/11/23 Teetee Velazquez PA-C [address] [place] [address] Assigned Surgical Provider 07/01/23 [place] [address] [address], [facility] 300 [place] [address] Assigned Musculoskeletal Provider 08/20/23 Lanie Foster, RD, LD [address] [place] [address] Registered Dietitian Nutrition 05/15/24 [place] [address] [place] [address] Assigned PCP 05/29/24 Melonie Caro [facility] [address] [place] [address] Pharmacist Pharmacist 06/05/24 Federico Linda MD 6405 [facility] [address] [place] [address] Cardiovascular Disease 06/13/24 Melonie Caro [facility] [address] [place] [address] Assigned MTM Pharmacist 06/29/24 Virgie Lobato, PA-C [address] [place] [address] Assigned Nephrology Provider 07/30/24 Barry Ybarra MD [address] [place] [address] Hospitalist Infectious Diseases 08/31/24 Barry Ybarra MD [address] [place] [address] Assigned Infectious Disease Provider 10/27/24 documented as of this encounter
--- OUTSIDE RECORDS SUMMARY | 2024-11-12 17:26 | XMS_ITS | Encounter Summary ---
Author Organization [facility] Address [address] [place] [address] Care Team Providers Care Stockroom Associate Name Role Phone Axel Helm MD Primary Care Provider [facility] Primary Care Provider + Flynn Ruiz MD Primary Care Provider Sigifredo Segal MD Primary Care Provider [phone] No Ref-Primary, Physician Primary Care Provider Flynn Ruiz MD Primary Care Provider [phone] No Ref-Primary, Physician Primary Care Provider Sheryl Stringer RD Unavailable Flynn Ruiz MD Primary Care Provider [phone] Sheryl Jaimes MD Primary Care Provider Unavailab le Flynn Ruiz MD Unavailable [facility] Primary Care Provider No Ref-Primary, Physician Primary Care Provider Flynn Ruiz MD Unavailable Ruth Ann Munoz MD Primary Care Prov ider Ruth Ann Munoz MD Unavailable + Flynn Ruiz MD Primary Care Provider Ruth Ann Munoz MD Unavailable + Flynn Ruiz MD Unavailable [phone] Flynn Ruiz MD Unavailable [phone] Mari Funes RN Unavailable Unavailable Ruth Ann Munoz MD Unavailable + Trina Carbajal-C Unavailable [phone] Federico Linda MD Unavailable [phone] Trina Carbajal-C Primary Care Provider [phone] Connie Blackwell MD Unavailable [phone] Ruth Ann Munoz MD Unavailable + Carlos Livingston MD Unavailable Jelena vailable Trina Carbajal-C Unavailable [phone] Carlos Livingston MD Unavailable Jelena vailable Carlos Livingston MD Unavailable Jelena vailable Trina Carbajal-C Unavailable [phone] Mari Funes RN Unavailable Unavailable Jc Zavala MD Unavailable [phone] Barbi Manzo RN Unavailable Unavailable Erasto Root MD Unavailable Cristofer Michelle MD Unavailable [phone] Vivien Blanchard MD Unavailable [phone] Sapna Hernandez MD Unavailable Vivien Blanchard MD Unavailable [phone] Virgie Lobato PA-C Unavailable [phone] Teetee Velazquez PA-C Unavailable [phone] Teetee Velazquez PA-C Unavailable [phone] Cora Shah RN Unavailable Brad Mayer DO Unavailable [phone] Mary Garcia MD Primary Care Provider Cristal Cooper RN Unavailable Shannon Rowland PA-C Unavailable Lanie Foster RD, LD Unavailabl e Mary Garcia MD Unavailable Melonie Caro [facility] Unavailable Federico Linda MD Unavailable [phone] Melonie Caro [facility] Unavailable [phone] Virgie viramontes PA-C Unavailable [phone] Barry Ybarra MD Unavailable Barry Ybarra MD Unavailable Encounter Details Date Type Department Care Team (Late st Contact Info) Description 10/08/2006 [facility] Medical Advice [facility] [address] [place] [address] Axel Helm MD [address] [place] [address] Social History Tobacco Use Types Packs/Day Years Used Date Smoking Tobacco: Never Alcohol Use Standard Drinks/Week Comments No 0 (1 standard drink = 0.6 oz pur e alcohol) Comments No Sex and Gender Information Value Date Recorded Sex Assigned at Female 07/18/2020 1:16 PM ON AIR ANNOUNCER Legal Sex Female 3:23 AM ON AIR ANNOUNCER Gender Identity Female 07/18/2020 1:16 PM ON AIR ANNOUNCER Sexual Orientation Straight 07/18/2020 1: 16 PM ON AIR ANNOUNCER 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 Not on file documented as of this encounter Plan of Treatment Upcoming Encounters Date Type Department Care Team (Late st Contact Info) Description 11/16/2024 1:00 PM CDT Allied Health/Nurse Visit [facility] Urology [address] [place] [phone] Lucero Britt PA-C [address] [place], [place] [address] 11/16/2024 2:45 PM CDT Office Visit [facility] [address] [phone] Vivien Blanchard MD [address] [facility] [address] [place], [place] [phone] 11/20/2024 3:30 PM CDT Office Visit [facility] [address] [place] [phone] [place] [address] [place] [address] 11/22/2024 9:15 AM CDT Office Visit [facility] [address] [facility] [address] [place] [phone] Federico Linda MD [address] [facility] [address] [place], [place] [address] 11/30/2024 10:30 AM CDT Lab [facility] [address] [place] [phone] 12/06/2024 10:10 AM CDT Office Visit [facility] [address] [facility] 200 [place] [phone] Virgie Lobato PA-C [address] [place] [address] 12/28/2024 11:00 AM CDT Office Visit [facility] [address] [facility] 200 [place] [address] [place] [address] [place] [address] 200 [place] [address] 01/26/2025 11:30 AM CDT Office Visit [facility] [address] [place] [phone] [place] [id number] [place] [address] documented as of this encounter Visit Diagnoses Not on filedocumented in this encounter Additional Health Concerns Infection Onset Date Last Indicated Resolved Time Rule Out COVID-19 03/08/2021 03/08/2021 03/09/2021 1:42 AM CDT Rule Out C-difficile 03/10/2021 03/10/2021 5:50 PM CDT Rule Out COVID-19 2021 2021 04/25/2021 12:41 PM ON AIR ANNOUNCER Rule Out COVID-19 06/14/2022 06/14/2022 06/14/2022 11:30 AM ON AIR ANNOUNCER Rule Out COVID-19 07/03/2022 07/03/2022 07/04/2022 12:27 AM ON AIR ANNOUNCER Rule Out COVID-19 04/01/2024 04/01/2024 04/01/2024 10:07 PM CDT ESBL 07/05/2024 08/24/2024 Rule Out COVID-19 07/16/2024 07/16/202407/1607/16/2024 11:04 PM ON AIR ANNOUNCER Rule Out COVID-19 09/01/2024 09/01/2024 09/01/2024 2:05 AM CDT Rule Out COVID-19 09/21/2024 09/21/2024 09/21/2024 3:25 PM CDT documented as of this encounter Care Teams Stockroom Associate Relationship Specialty Start Date End Date Axel Helm MD [address] [facility] [address] [place] [address] PCP - General 07/21/02 05/11/11 [facility] PCP - General 05/12/11 08/24/11 Flynn Ruiz MD PCP - General Family Practice 08/25/11 07/14/16 Sigifredo Segal MD [facility] [address] [facility] [place] [address] PCP - General Family Practice 07/15/16 10/13/16 No Ref-Primary, Physician PCP - General 10/14/16 03/14/17 Flynn Ruiz MD PCP - General Family Practice 03/15/17 11/02/17 No Ref-Primary, Physician PCP - General 11/03/17 12/07/17 Flynn Ruiz MD PCP - General Family Practice 12/08/17 07/07/18 Sheryl Jaimes MD [address] [place] [address] PCP - General Family Practice 07/08/18 08/02/18 Flynn Ruiz MD [address] [place] [address] PCP - Assigned PCP 07/10/18 08/09/18 [facility] [address] [place], [place] [phone] PCP - General 08/03/18 08/04/18 No Ref-Primary, Physician PCP - General 08/05/18 08/30/18 [place] [address] [place], [place] [phone] PCP - General Family Practice 08/31/18 04/13/19 Flynn Ruiz MD [place] [address] [facility] [address] [place] [address] PCP - General Family Practice 04/14/19 05/18/20 Trina Carbajal PA-C [address] [facility] [address] [place] [address] PCP - General Family Medicine 05/19/20 04/10/24 [place] [address] [place] [address] PCP - General Family Medicine 04/11/[address] [facility] [address] [facility] [place] [address] Supervisor Power Reactor Dietitian, Registered 11/03/17 Flynn Ruiz MD [address] [place] [address] Assigned PCP 04/24/18 12/24/18 Ruth Ann Munoz MD [place] [address] [place], [place] [address] Assigned PCP 12/25/18 04/22/19 Ruth Ann Munoz MD [place] [address] [employer] [address] [place], [place] [address] Assigned PCP 04/30/19 05/27/19 Flynn Ruiz MD [address] [place] [address] Assigned PCP 04/23/19 04/29/19 Flynn Ruiz MD [address] [place] [address] Assigned PCP 05/28/19 07/22/19 Mari Funes, JERRY Personal Advocate & Liaison (PAL) 07/27/19 07/30/19 Ruth Ann Munoz MD [place] [address] [employer] [address] [place] [address] Assigned PCP 07/23/19 08/12/19 Trina Carbajal PA-C [address] [place] [address] Assigned PCP 08/13/19 07/27/20 Federico Linda MD [address] [place] [address] Assigned Heart and Vascular Provider 03/29/20 Connie Blackwell MD [address] [place] [address] Assigned Endocrinology Provider 07/14/20 12/19/20 Ruth Ann Munoz MD [place] [address] [place] [address] Assigned PCP 07/28/20 08/25/20 Carlos Livingston MD NO INFO AVAILABLE Assigned PCP 08/26/20 08/31/20 Trina Carbajal PA-C [address] [place] [address] Assigned PCP 09/01/20 12/07/20 Carlos Livingston MD NO INFO AVAILABLE Assigned Endocrinology Provider 12/20/20 12/18/22 Carlos Livingston MD NO INFO AVAILABLE Assigned PCP 12/08/20 12/19/20 Trina Carbajal PA-C [address] [place] [address] Assigned PCP 12/20/20 04/28/24 Mari Funes, JERRY Personal Advocate & Liaison (PAL) Nurse 01/24/21 06/12/21 Jc Zavala MD [facility] [address] [place] [address] Hematology & Oncology 08/07/21 Barbi Manzo, RN Personal Advocate & Liaison (PAL) Family Medicine 12/24/21 07/08/23 [place] [address] [place] [address] [address] Assigned Musculoskeletal Provider 04/04/22 08/19/23 Cristofer Michelle MD [address] [place] [address] 7[address]605 Gastroenterology 07/28/22 Vivien Blanchard MD [address] [id number] Urology 07/28/22 Sapna Hernandez MD [address] [phone] Assigned Nephrology Provider 07/11/22 09/25/22 Vivien Blanchard MD [address] [place] [address] [id number] Assigned Surgical Provider 07/25/22 06/30/23 Virgie Lobato PA-C [address] [place] [address] Assigned Nephrology Provider 09/26/22 03/28/24 Teetee Velazquez PA-C [address] [place], [place] [phone] Physician Tube Sorter 05/11/23 Teetee Velazquez PAAnthnoyC [address] [place] [address] Assigned Surgical Provider 07/01/23 Cora Shah, JERRY Personal Advocate & Liaison (PAL) Nurse 07/09/23 09/29/23 [place] [address] [facility] [address] [place], [place] [address] Assigned Musculoskeletal Provider 08/20/23 Cristal Cooper RN Lead Headwaiter/Headwaitress Primary Care - CC 04/27/2404/08 Shannon Rowland PA-C [address] [place] [phone] Assigned PCP 04/29/24 05/28/24 Lanie Foster, RD, LD [address] [place] [id number] Registered Dietitian Nutrition 05/15/24 [place] [address] [place] [address] Assigned PCP 05/29/24 Melonie Caro [facility] [address] [place], [place] [phone] Pharmacist Pharmacist 06/05/24 Federico Linda MD [address] [facility] [address] [place] [address] Cardiovascular Disease 06/13/24 Melonie Caro [facility] [address] [place], [place] 5[address] Assigned MTM Pharmacist 06/29/24 Virgie Lobato, PAAnthonyC [address] [place] [address] [id number] Assigned Nephrology Provider 07/30/24 Barry Ybarra MD [address] [place] [address] [phone] Hospitalist Infectious Diseases 08/31/24 Barry Ybarra MD [address] [place] [address] [phone] Assigned Infectious Disease Provider 10/27/24 documented as of this encounter
--- OUTSIDE RECORDS SUMMARY | 2024-11-12 17:26 | XMS_ITS | Encounter Summary ---
Author Organization [facility] Address [address] [place] [address] Care Team Providers Care Outside Food Server Name Role Phone Tyrell Ruiz MD Primary Care Provider [phone] Sigifredo Segal MD Primary Care Provider [phone] No Ref-Primary, Physician Primary Care Provider Tyrell Ruiz MD Primary Care Provider [phone] No Ref-Primary, Physician Primary Care Provider Sheryl Stringer RD Unavailable [phone] Tyrell Ruiz MD Primary Care Provider [phone] Sheryl Jaimes MD Primary Care Provider Unavailab Tyrell Morris MD Unavailable [phone] [facility] Primary Care Provider No Ref-Primary, Physician Primary Care Provider Tyrell Ruiz MD Unavailable [phone] Ruth Ann Munoz MD Primary Care Prov ider Ruth Ann Munoz MD Unavailable + Tyrell Ruiz MD Primary Care Provider Ruth Ann Munoz MD Unavailable + Tyrell Ruiz MD Unavailable [phone] Tyrell Ruiz MD Unavailable [phone] Mari Funes RN Unavailable Unavailable Ruth Ann Munoz MD Unavailable + Trina Carbajal PA-C Unavailable [phone] Federico Linda MD Unavailable [phone] Trina Carbajal PA-C Primary Care Provider [phone] Connie Blackwell MD Unavailable [phone] Ruth Ann Munoz MD Unavailable + Carlos Livingston MD Unavailable Jelena vailable Trina Carbajal PA-C Unavailable [phone] Carlos Livingston MD Unavailable Jelena vailable Carlos Livingston MD Unavailable Jelena vailable Trina Carbajal PA-C Unavailable [phone] Mari Funes RN Unavailable Unavailable Jc Zavala MD Unavailable [phone] Barbi Manzo RN Unavailable Unavailable Erasto Root MD Unavailable Cristofer Michelle MD Unavailable [phone] Vivien Blanchard MD Unavailable [phone] Sapna Hernandez MD Unavailable Vivien Blanchard MD Unavailable [phone] Virgie Lobato-C Unavailable [phone] Teetee Velazquez-C Unavailable Teetee Velazquez-C Unavailable Cora Shah RN Unavailable Brad Mayer Unavailable [phone] Mary Garcia MD Primary Care Provider Cristal Cooper RN Unavailable Shannon Rowland-C Unavailable [phone], LD Unavailabl e Mary Garcia MD Unavailable Melonie Caro [facility] Unavailable Federico Linda MD Unavailable Melonie Caro [facility] Unavailable Virgie LobatoC Unavailable Barry Ybarra MD Unavailable Barry Ybarra MD Unavailable Encounter Details Date Type Department Care Team (Late st Contact Info) Description 04/20/2012 Office Visit-[facility] [place] [address] [facility] [address] [place] [phone] Mariusz Rios MD [address] [facility] [address] [place] [id number] Social History Tobacco Use Types Packs/Day Years Used Date Smoking Tobacco: Never Alcohol Use Standard Drinks/Week Comments No 0 (1 standard drink = 0.6 oz pur e alcohol) Comments No Sex and Gender Information Value Date Recorded Sex Assigned at Female 07/18/2020 1:16 PM AMBULANCE DISPATCHER Legal Sex Female 3:23 AM AMBULANCE DISPATCHER Gender Identity Female 07/18/2020 1:16 PM AMBULANCE DISPATCHER Sexual Orientation Straight 07/18/2020 1: 16 PM AMBULANCE DISPATCHER 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 DATE: 04/20/2012 ROGDER LIVEELLA DATE OF : 1940 AGE: [age] years old Referring Physician: TYRELL RUIZ Referring Clinic: [facility] CURRENT DIAGNOSES 1. - Chest Pain Precordial, 786.51 2. Abnormal test-Abnormal Persantine Nuclear Study, 794.30 ALLERGIES NKDA MEDICATIONS (prior to changes made today) 1. Aspirin Low Dose 81 mg tablet,delayed release (DR/EC), 1 p.o. daily 2. glipizide 10 mg tablet, 2 p.o. daily 3. Lantus 100 unit/mL Solution, Take as Directed 4. lisinopril-hydrochlorothiazide 20-25 mg tablet, 1 p.o. daily 5. metoprolol tartrate 25 mg tablet, 1 tab po BID 6. Nitrostat 0.4 mg tablet, sublingual, 1 tab SL prn 7. paroxetine HCl 40 mg tablet, 1 p.o. daily 8. simvastatin 10 mg tablet, 1 p.o. daily CHIEF COMPLAINTS Review test results HISTORY OF PRESENT ILLNESS I had the pleasure of seeing [facility] Live for consultation at your request for chest pain and an abnormal stress nuclear study. She is a 71-year-old female with a past medical history of diabetes and hypertension. She has been having episodes of back pain and chest discomfort on and off for the lastfew weeks. This is usually associated with activity and relieved with rest. Sometimes it occurs with rest, but is not very common. Because of her symptoms, a stress nuclear study was done with Lexiscan (which showed a moderate area of apical and septal ischemia in the distribution in the LAD). About 10% of the myocardium was thought to be ischemic, which makes it a moderate risk abnormal stress test. Due to the abnormal stress test, she has been referred here. PHYSICAL EXAMINATION: Her blood pressure was 142/72. Pulse was 88 beats per minute and regular. Weight was 169.8 pounds. Cardiac examination revealed a regular S1 and S2. There was a soft ejection systolic murmur at the aortic area. Chest was clear to auscultation. PAST HISTORY Past Medical Illnesses: diabetes mellitus, hypertension, depression, hyperlipidemia, pyelonephritis, hyponatraemia, acute renal failure, anxiety Past Cardiac Illnesses: abn stress nuc test Infectious History: escherichia coli bacteremia Surgeries/Procedures - General: hysterectomy, cholecystectomy, carpal tunnel surgery Cardiology Procedures-NonInvasive: myocardial perfusion (Nuc) Mar 2012 Left Ventricular Ejection Fraction: EF<GT>55% by nuclear study -Mar 2012 Nuclear Results: 03/18 moderate apical and septal myocardial ischemia in area of LAD EF<GT>55% by nuclear study -Mar 2012 FAMILY HISTORY: Father - Age 62, heart attack; Mother - Age 79, diabetes-unknown type, hypertension and stroke; Brother 1 - hypertension; SOCIAL HISTORY Alcohol Use - denies drinking; Smoking - never smoked; Diet - regular diet without modifications; Lifestyle - ; Exercise - no regular exercise; PHYSICAL EXAMINATION VITAL SIGNS: Blood Pressure: 142/72Sitting, Left arm, regular cuff Pulse- 88.00/min. Weight- 169.80 lbs. Height- 64 BMI Measurement: 29 CONSTITUTIONAL cooperative, alert and oriented,well developed, well nourished, in no acute distress. SKIN warm and dry to touch, no apparent skin lesions, or masses noted. HEAD normocephalic, atraumatic EYES Pupils equal and round, conjunctivae and lids unremarkable, sclera white, no xanthalasma ENT no pallor or cyanosis, dentition good NECK carotid pulses are full and equal bilaterally, JVP normal, no carotid bruit, no thyromegaly CHEST clear to auscultation CARDIAC regular rhythm, S1 normal, S2 normal, No S3 or S4, Apical impulse not displaced, no murmurs, gallops or rubs detected. ABDOMEN abdomen soft, bowel sounds normoactive, no masses, no hepatosplenomegaly, non- tender, no bruits PERIPHERAL PULSES pulses full and equal in all extremities, no bruits auscultated. EXTREMITIES & BACK no deformities, clubbing, cyanosis, erythema or edema observed. There are no spinal abnormalities noted. Normal muscle strength and tone. NEUROLOGICAL no gross motor deficits noted, affect appropriate, oriented to time, person and place. MEDICATIONS UPDATED/STARTED TODAY: Aspirin Low Dose 81 mg tablet,delayed release (DR/EC), 1 p.o. daily, #0 (Zero) glipizide 10 mg tablet, 2 p.o. daily, #0 (Zero) Lantus 100 unit/mL Solution, Take as Directed, #0 (Zero) lisinopril-hydrochlorothiazide 20-25 mg tablet, 1 p.o. daily, #0 (Zero) metoprolol tartrate 25 mg tablet, 1 tab po BID, #60 (Sixty) Nitrostat 0.4 mg tablet, sublingual, 1 tab SL prn, #30 (Thirty) paroxetine HCl 40 mg tablet, 1 p.o. daily, #0 (Zero) simvastatin 10 mg tablet, 1 p.o. daily, #0 (Zero) MEDICATIONS REFILLED/STOPPED TODAY: Daily Multi-Vitamin tablet 1 p.o. daily #0 (Zero) Patient Request and Percocet 10-325 mg tablet 1 p.o. PRN as Directed #0 (Zero) Patient Request IMPRESSIONS/PLAN 1. Abnormal stress nuclear study. She has had recent chest pain, which is likely angina. 2. Diabetes. 3. Hypertension. 4. Hyperlipidemia. Her last LDL was 85. 5. Chronic renal insufficiency. PLAN: 1. Abnormal stress nuclear study. The patient had recent onset of chest pain suggestive of angina. She also had an abnormal stress nuclear study, which revealed a moderate risk. I have recommended coronary angiography with an eye toward revascularization. The risks of coronary angiography and intervention including a 1% to 2% risk of stroke, myocardial infarction, , emergency surgery, and vascular complications were discussed. She understands the importance of taking antiplatelet therapy for a year if a drug eluting stent is placed. There is no contraindication to the use of drug elutingstent. I will also start her on metoprolol 25 mg twice daily for presumed coronary artery disease. She has no evidence of hypoglycemia or unwellness. She will need a higher dose of statin and follow up. She will return to see my nurse practitioner if the coronary angiography is completed. 2. Left heart cath in a week. 3. She will follow up with Liz Cooper in two to four weeks. 4. Consider a lipid profile for follow up. If her LDL is not at goal, we will increase simvastatin or change it to Lipitor. She will follow up with me in six months at the Cardiology Clinic here. TODAYS ORDERS 1. F/U with Liz Cooper, MSN, POURED CONCRETE WALL TECHNICIAN 2-4 weeks 2. Pre Cath Labs 3. Left Heart Cath Mariusz Rios M.D. documented in this encounter Plan of Treatment Upcoming Encounters Date Type Department Care Team (Late st Contact Info) Description 11/16/2024 1:00 PM CDT Allied Health/Nurse Visit [facility] [address] [place] [address] Lucero Britt PA-C [address] [place] [phone] 11/16/2024 2:45 PM CDT Office Visit [facility] [address] [facility] 4th [place] [phone] Vivien Blanchard MD [address] [facility] [address] [place] [address] 11/20/2024 3:30 PM CDT Office Visit [facility] [address] [place] [phone] [place] [address] [place], [place] [phone] 11/22/2024 9:15 AM CDT Office Visit [facility] [address] [facility] [address] [place] [phone] Federico Linda MD [address] [facility] [address] [place] [address] 11/30/2024 10:30 AM CDT Lab [facility] [address] [place] [phone] 12/06/2024 10:10 AM CDT Office Visit [facility] [address] [facility] [address] [place] [phone] Virgie Lobato, PA-C [address] [place] [address] 12/28/2024 11:00 AM CDT Office Visit [facility] [address] [facility] [address] [place] [phone] [place] [address] [place] [address] 200 [place] [address] 01/26/2025 11:30 AM CDT Office Visit [facility] [address] [place] [phone] [place] [address] [place] [address] documented as of this encounter Visit Diagnoses Not on filedocumented in this encounter Additional Health Concerns Infection Onset Date Last Indicated Resolved Time Rule Out COVID-19 03/08/2021 03/08/2021 03/09/2021 1:42 AM CDT Rule Out C-difficile 03/10/2021 03/10/2021 5:50 PM CDT Rule Out COVID-19 2021 2021 04/25/2021 12:41 PM AMBULANCE DISPATCHER Rule Out COVID-19 06/14/2022 06/14/2022 06/14/2022 11:30 AM AMBULANCE DISPATCHER Rule Out COVID-19 07/03/2022 07/03/2022 07/04/2022 12:27 AM AMBULANCE DISPATCHER Rule Out COVID-19 04/01/2024 04/01/2024 04/01/2024 10:07 PM CDT ESBL 07/05/2024 08/24/2024 Rule Out COVID-19 07/16/2024 07/16/2024 07/16/2024 11:04 PM AMBULANCE DISPATCHER Rule Out COVID-19 09/01/2024 09/01/2024 09/01/2024 2:05 AM CDT Rule Out COVID-19 09/21/2024 09/21/2024 09/21/2024 3:25 PM CDT documented as of this encounter Care Teams Outside Food Server Relationship Specialty Start Date End Date Tyrell Ruiz MD PCP - General Family Practice 08/25/11 07/14/16 Sigifredo Segal MD [facility] [address] [place] [phone] PCP - General Family Practice 07/15/16 10/13/16 No Ref-Primary, Physician PCP - General 10/14/16 03/14/17 Tyrell Ruiz MD PCP - General Family Practice 03/15/17 11/02/17 No Ref-Primary, Physician PCP - General 11/03/17 12/07/17 Tyrell Ruiz MD PCP - General Family Practice 12/08/17 07/07/18 Sheryl Jaimes MD [address] [place] [address] PCP - General Family Practice 07/08/18 08/02/18 Tyrell Ruiz MD [address] [facility] [place] [address] PCP - Assigned PCP 07/10/18 08/09/18 [facility] [address] [place], [place] [phone] PCP - General 08/03/18 08/04/18 No Ref-Primary, Physician PCP - General 08/05/18 08/30/18 [place] [address] [place], [place] [phone] PCP - General Family Practice 08/31/18 04/13/19 Tyrell Ruiz MD [facility] [address] [place] [address] [place] [address] PCP - General Family Practice 04/14/19 05/18/20 Trina Carbajal PA-C [address] [facility] [address] [place] [address] PCP - General Family Medicine 05/19/20 04/10/24 [place] [address] [place] [address] PCP - General Family Medicine 04/11/[address] [place] [address] Seat Cover Installer Dietitian, Registered 11/03/17 Tyrell Ruiz MD [address] [place] [address] Assigned PCP 04/24/18 12/24/18 Ruth Ann Munoz MD [place] [address] [place] [address] Assigned PCP 12/25/18 04/22/19 Ruth Ann Munoz MD [place] [address] [place] [address] Assigned PCP 04/30/19 05/27/19 Tyrell Ruiz MD [address] [place] [address] Assigned PCP 04/23/19 04/29/19 Tyrell Ruiz MD [address] [place] [address] Assigned PCP 05/28/19 07/22/19 Mari Funes, JERRY Personal Advocate & Liaison (PAL) 07/27/19 07/30/19 Ruth Ann Munoz MD [place] [address] [place] [address] Assigned PCP 07/23/19 08/12/19 Trina Carbajal PA-C [address] [place], [place] [address] Assigned PCP 08/13/19 07/27/20 Federico Linda MD [address] [place] [address] Assigned Heart and Vascular Provider 03/29/20 Connie Blackwell MD [address] [place], [place] [address] Assigned Endocrinology Provider 07/14/20 12/19/20 Ruth Ann Munoz MD [place] [address] [place] [address] Assigned PCP 07/28/20 08/25/20 Carlos Livingston MD NO INFO AVAILABLE Assigned PCP 08/26/20 08/31/20 Trina Carbajal PA-C [address] [place], [place] [address] Assigned PCP 09/01/20 12/07/20 Carlos Livingston MD NO INFO AVAILABLE Assigned Endocrinology Provider 12/20/20 12/18/22 Carlos Livingston MD NO INFO AVAILABLE Assigned PCP 12/08/20 12/19/20 Trina Carbajal, PA-C [address] [facility] [address] [place] [address] Assigned PCP 12/20/20 04/28/24 Mari Funes, JERRY Personal Advocate & Liaison (PAL) Nurse 01/24/21 06/12/21 Jc Zavala MD [facility] [place] [address] [facility] [address] [place] [address] Hematology & Oncology 08/07/21 Barbi Manzo, JERRY Personal Advocate & Liaison (PAL) Family Medicine 12/24/21 07/08/23 [place] [address] [place] [address] Assigned Musculoskeletal Provider 04/04/22 08/19/23 Cristofer Michelle MD [address] [place], [place] [address]B [address] [place], [place] [address] Gastroenterology 07/28/22 Vivien Blanchard MD [address] [place] [address] [address] [place] [address] Urology 07/28/22 Sapna Hernandez MD [address] [address] Assigned Nephrology Provider 07/11/22 09/25/22 Vivien Blanchard MD [address] [place] [address] Assigned Surgical Provider 07/25/22 06/30/23 Virgie Lobato PA-C [address] [place] [address] Assigned Nephrology Provider 09/26/22 03/28/24 Teetee Velazquez PA-C [address] [place] [address] Physician Food And Beverage Associate 05/11/23 Teetee Velazquez PA-C [address] [place] [address] Assigned Surgical Provider 07/01/23 Cora Shah RN Personal Advocate & Liaison (PAL) Nurse 07/09/23 09/29/23 [place] [address] [address] Assigned Musculoskeletal Provider 08/20/23 Cristal Cooper, RN Lead Marketing Assistant Retail Division Primary Care - CC 04/27/2404/08 Shannon Rowland PA-C [address] [place] [address] Assigned PCP 04/29/24 05/28/24 Lanie Foster, RD, LD [address] [place], [place] [phone] Registered Dietitian Nutrition 05/15/24 [place] [address] [address] [place] [address] Assigned PCP 05/29/24 Melonie Caro [facility] [address] [place], [place] [address] Pharmacist Pharmacist 06/05/24 Federico Linda MD [address] [place] [address] Cardiovascular Disease 06/13/24 Melonie Caro [facility] [address] [place] [address] Assigned MTM Pharmacist 06/29/24 Virgie Lobato, PAAnthonyC [address] [place] [id number] Assigned Nephrology Provider 07/30/24 Barry Ybarra MD [address] [place] [address] Hospitalist Infectious Diseases 08/31/24 Barry Ybarra MD [address] [place] [address] Assigned Infectious Disease Provider 10/27/24 documented as of this encounter
--- OUTSIDE RECORDS SUMMARY | 2024-11-12 17:26 | XMS_ITS | Encounter Summary ---
Author Organization [facility] Address [address] [place] [address] Care Team Providers Care Zoo Veterinarian Name Role Phone Tyrell Ruiz MD Primary Care Provider Sigifredo Segal MD Primary Care Provider [phone] Ref-Primary, Physician Primary Care Provider Tyrell Ruiz MD Primary Care Provider [phone] Ref-Primary, Physician Primary Care Provider Sheryl Stringer RD Unavailable [phone] Tyrell Ruiz MD Primary Care Provider [phone] Sheryl Jaimes MD Primary Care Provider Unavailab Tyrell Morris MD Unavailable [phone] [facility] Primary Care Provider No Ref-Primary, Physician Primary Care Provider Tyrell Ruiz MD Unavailable [phone] Ruth Ann Munoz MD Primary Care [...] [phone] Trina Carbajal PA-C Primary Care Provider [phone] Connie Blackwell MD Unavailable [phone] Ruth Ann Munoz MD Unavailable + Carlos Livingston MD Unavailable Jelena vailable Trina Carbajal PA-C Unavailable [phone] Carlos Livingston MD Unavailable Jelena vailable Carlos Livingston MD Unavailable Jelena vailable Trina Carbajal PA-C Unavailable [phone] Mari Funes RN Unavailable Unavailable Jc Zavala MD Unavailable [phone] Barbi Manzo RN Unavailable Unavailable Erasto Root MD Unavailable Cristofer Michelle MD Unavailable [phone] Vivien Blanchard MD Unavailable [phone] Sapna Hernandez MD Unavailable Vivien Blanchard MD Unavailable [phone] Virgie Lobato-C Unavailable [phone] Teetee Velazquez-C Unavailable Teetee Velazquez-C Unavailable Cora Shah RN Unavailable [phone] Brad Mayer Unavailable [phone] Mary Garcia MD Primary Care Provider Cristal Cooper RN Unavailable Shannon RowlandC Unavailable [phone], LD Unavailabl e Mary Garcia MD Unavailable Melonie Caro [facility] Unavailable Federico Linda MD Unavailable Melonie Caro [facility] Unavailable Virgie LobatoC Unavailable Barry Ybarra MD Unavailable Barry Ybarra MD Unavailable Encounter Details Date Type Department Care Team (Late st Contact Info) Description 05/08/2013 Office Visit-[facility] [place] [address] [facility] [address] [place] [phone] Federico Linda MD [address] [facility] [address] [place] [address] Social History Tobacco Use Types Packs/Day Years Used Date Smoking Tobacco: Never Alcohol Use Standard Drinks/Week Comments No 0 (1 standard drink = 0.6 oz pur e alcohol) Comments No Sex and Gender Information Value Date Recorded Sex Assigned at Female 07/18/2020 1:16 PM MANUFACTURING AREA MANAGER Legal Sex Female 3:23 AM MANUFACTURING AREA MANAGER Gender Identity Female 07/18/2020 1:16 PM MANUFACTURING AREA MANAGER Sexual Orientation Straight 07/18/2020 1: 16 PM MANUFACTURING AREA MANAGER 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 - Chest Pain Precordial, 786.51 2. Other Chest Pain, 786.59 3. Abnormal test-Abnormal Persantine Nuclear Study, 794.30 4. - CAD, 414.00 5. - Hyperlipidemia, 272.4 6. - Hypertension, 401.1 7. Shortness of Breath, 786.05 ALLERGIES NKDA MEDICATIONS (prior to changes made today) 1. Aspirin Low Dose 81 mg tablet,delayed release (DR/EC), 1 p.o. daily 2. glipizide 10 mg tablet, 1 p.o. twice daily 3. Lantus 100 unit/mL Solution, Take as Directed 4. lisinopril 30 mg tablet, 1 p.o. daily 5. metoprolol tartrate 25 mg tablet, 1 p.o. twice daily 6. multivitamin tablet, 1 p.o. daily 7. Nitrostat 0.4 mg tablet, sublingual, 1 tab SL prn 8. paroxetine HCl 40 mg tablet, 1 p.o. daily 9. simvastatin 10 mg tablet, 1 p.o. daily 10. Victoza 0.5 milligrams, 1 p.o. daily CHIEF COMPLAINTS CAD, dyspnea HISTORY OF PRESENT ILLNESS Indication for follow-up: Coronary artery disease. The patient is a pleasant 73-year-old with a history of coronary artery disease status post PCI on 04/22/2012 with drug-eluting stent to LAD. We did follow-up stress echocardiogram on 12/16/2012 as she was having some dyspnea on exertion but no return of chest discomfort. Last stress test was negative. She has continued about the same. She still has dyspnea on exertion but no chest discomfort. Blood pressure has been under good control. We had increased her lisinopril from 20 to 30 mg daily.She remains on the metoprolol as well. Currently, she is on dual antiplatelet therapy. PAST HISTORY Past Medical Illnesses: diabetes mellitus, hypertension, depression, hyperlipidemia, pyelonephritis, hyponatraemia, acute renal failure, anxiety Past Cardiac Illnesses: abn stress nuc test, coronary artery disease Infectious History: escherichia coli bacteremia Surgeries/Procedures - General: hysterectomy, cholecystectomy, carpal tunnel surgery Cardiac/Vasc Procedures-Invasive: cardiac cath (left) Apr 2012 Cardiology Procedures-NonInvasive: myocardial perfusion (Nuc) Mar 2012, 12/17: Stress echocardiogram Cardiac Cath Results: 04/18 Distal left main 10%, LAD had about a 20% lesion proximally,diagonal branch had a 50% stenosis at its origin and just after that had about a 90% lesion in the mid-LAD,small PDA with just 20% lesion proximally. SUZIE placed to mid LAD PMHx Stress Echo Results: 12/17: Low workload achieved. No chest pain or significant ST changes with exercise. Hyperdynamic response to exercise. No ischemia. Left Ventricular Ejection Fraction: EF<GT>55% by nuclear study -Mar 2012, 12/17: EF 55-60% at rest and greater than 70% post exercise by stress echo Nuclear Results: 03/18 moderate apical and septal myocardial ischemia in area of LAD LVEF of 55-70+% documented via echocardiogram on 12/16/2012 REVIEW OF SYSTEMS GENERAL negative for energy INTEGUMENTARY denies any change in hair or nails, rashes, or skin lesions. EYES wears eye glasses/contact lenses EARS, NOSE, THROAT, MOUTH denies any hearing loss, epistaxis, hoarseness or difficulty speaking. RESPIRATORY dyspnea with exertion CARDIOVASCULAR light headedness - with standing - recovers quickly, negative for chest discomfort, negative for palpitations, edema of the feet ABDOMINAL Acid reflux - more than usual GENITOURINARY-FEMALE nocturia, 2 x's MUSCULOSKELETAL joint pain, in both knees - arthritis, left hip pain NEUROLOGICAL denies any history of recurrent headaches, strokes, TIA, or seizure disorder. PSYCHIATRIC positive for depression controlled with medication ENDOCRINE insulin dependent diabetes mellitus HEMATOLOGICAL/IMMUNOLOGIC denies any food allergies, seasonal allergies, bleeding disorders or lymphadenopathy. PHYSICAL EXAMINATION VITAL SIGNS: Blood Pressure: 122/66Sitting, Right arm, large cuff Pulse- 88.00/min. Weight- 176.90 lbs. Height- 64 BMI Measurement: 30 CONSTITUTIONAL cooperative, alert and oriented,well developed, well nourished, in no acute distress. SKIN warm and dry to touch, no apparent skin lesions, or masses noted. HEAD normocephalic, atraumatic EYES Pupils equal and round ENT no pallor or cyanosis, dentition good NECK carotid pulses are full and equal bilaterally, JVP normal, no carotid bruit, no thyromegaly. No flutter waves seen in neck. CHEST trace bibasilar crackles clearing with deep inspiration CARDIAC regular rhythm, S1 normal, S2 normal, No S3 or S4, no gallops or rubs detected. Grade I/ LLSB ABDOMEN abdomen soft, bowel sounds normoactive PERIPHERAL PULSES pulses full and equal in all extremities EXTREMITIES & BACK no clubbing, cyanosis or edema NEUROLOGICAL no gross motor deficits noted, affect appropriate, oriented to time, person and place. MEDICATIONS UPDATED/STARTED TODAY: MEDICATIONS REFILLED/STOPPED TODAY: clopidogrel 75 mg tablet 1 p.o. daily #90 (Ninety) Physician Order and lisinopril 20 mg tablet 1 p.o. daily #90 (Ninety) Physician Order IMPRESSIONS/PLAN 1.Coronary artery disease status post PCI. The patient may come off her clopidogrel at this time. Remain on the aspirin. Continue statin and INDERJIT inhibitor and beta-miguelangel. We will see her back in approximately one month if no new symptoms arise. TODAYS ORDERS 1. Return Visit 1 year Federico Linda MD documented in this encounter Plan of Treatment Upcoming Encounters Date Type Department Care Team (Late st Contact Info) Description 11/16/2024 1:00 PM CDT Allied Health/Nurse Visit [facility] Urology [address] [phone] Lucero Britt PA-C [address] [place], [place] [phone] 11/16/2024 2:45 PM CDT Office Visit [facility] Urology [address] [phone] Vivien Blanchard MD [address] [facility] [address] [place], [place] [phone] 11/20/2024 3:30 PM CDT Office Visit [address] [phone] Mary Garcia MD [address] [place] [address] 11/22/2024 9:15 AM CDT Office Visit [facility] Heart [facility] [address] [facility] [address] [place] [phone] Federico Linda MD [address] [facility] [address] [place], [place] [address] 11/30/2024 10:30 AM CDT Lab [facility] [address] [place] [phone] 12/06/2024 10:10 AM CDT Office Visit [facility] [address] [facility] [address] [place] [phone] Virgie Lobato PA-C [address] [place] [address] 12/28/2024 11:00 AM CDT Office Visit [facility] [address] [facility] [address] [place] [phone] [place] [address] [place] [address] 01/26/2025 11:30 AM CDT Office Visit [facility] [address] [place] [address] [place] [id number] [place] [address] documented as of this encounter Visit Diagnoses Not on filedocumented in this encounter Additional Health Concerns Infection Onset Date Last Indicated Resolved Time Rule Out COVID-19 03/08/2021 03/08/2021 03/09/2021 1:42 AM CDT Rule Out C-difficile 03/10/2021 03/10/2021 021 5:50 PM CDT Rule Out COVID-19 2021 2021 04/25/2021 12:41 PM MANUFACTURING AREA MANAGER Rule Out COVID-19 06/14/2022 06/14/2022 06/14/2022 11:30 AM MANUFACTURING AREA MANAGER Rule Out COVID-19 07/03/2022 07/03/2022 07/04/2022 12:27 AM MANUFACTURING AREA MANAGER Rule Out COVID-19 04/01/2024 04/01/202404/01/2024 10:07 PM CDT ESBL 07/05/2024 08/24/2024 Rule Out COVID-19 07/16/2024 07/16/2024 07/16/2024 11:04 PM MANUFACTURING AREA MANAGER Rule Out COVID-19 09/01/2024 09/01/2024 09/01/2024 2:05 AM CDT Rule Out COVID-19 09/21/2024 09/21/2024 09/21/2024 3:25 PM CDT documented as of this encounter Care Teams Zoo Veterinarian Relationship Specialty Start Date End Date Tyrell Ruiz MD PCP - General Family Practice 08/25/11 07/14/16 Sigifredo Segal MD [facility] [address] [place] [phone] PCP - General Family Practice 07/15/16 10/13/16 No Ref-Primary, Physician PCP - General 10/14/16 03/14/17 Tyrell Ruiz MD PCP - General Family Practice 03/15/17 11/02/17 No Ref-Primary, Physician PCP - General 11/03/17 12/07/17 Tyrell Ruiz MD PCP - General Family Practice 12/08/17 07/07/18 Sheryl Jaimes MD [address] [place] [address] PCP - General Family Practice 07/08/18 08/02/18 Tyrell Ruiz MD [address] [place] [address] PCP - Assigned PCP 07/10/18 08/09/18 [facility] [address] [place], [place] [phone] PCP - General 08/03/18 08/04/18 No Ref-Primary, Physician PCP - General 08/05/18 08/30/18 [place] [address] [place], [place] [phone] PCP - General Family Practice 08/31/18 04/13/19 Tyrell Ruiz MD [place] [address] [facility] [address] [place] [address] PCP - General Family Practice 04/14/19 05/18/20 Trina Carbajal PA-C [address] [facility] [address] [place] [address] PCP - General Family Medicine 05/19/20 04/10/24 [place] [address] [place] [address] PCP - General Family Medicine 04/11/[address] [place] [phone] Toll Line Inspector Dietitian, Registered 11/03/17 Tyrell Ruiz MD [address] [place] [address] Assigned PCP 04/24/18 12/24/18 Ruth Ann Munoz MD [place] [address] [place] [address] Assigned PCP 12/25/18 04/22/19 Ruth Ann Munoz MD [place] [address] [place] [address] Assigned PCP 04/30/19 05/27/19 Tyrell Ruiz MD [address] [place] [address] Assigned PCP 04/23/19 04/29/19 Tyrell Ruiz MD [address] [place] [address] Assigned PCP 05/28/19 07/22/19 Mari Funes, JERRY Personal Advocate & Liaison (PAL) 07/27/19 07/30/19 Ruth Ann Munoz MD [place] [address] [place], [place] [address] Assigned PCP 07/23/19 08/12/19 Trina Carbajal PA-C [address] [place] [address] Assigned PCP 08/13/19 07/27/20 Federico Linda MD [address] [place] [address] Assigned Heart and Vascular Provider 03/29/20 Connie Blackwell MD [address] [place] [address] Assigned Endocrinology Provider 07/14/20 12/19/20 Ruth Ann Munoz MD [place] [address] [facility] [address] [place] [address] Assigned PCP 07/28/20 08/25/20 Carlos Livingston MD NO INFO AVAILABLE Assigned PCP 08/26/20 08/31/20 Trina Cabrajal PA-C [address] [place] [address] Assigned PCP 09/01/20 12/07/20 Carlos Livingston MD NO INFO AVAILABLE Assigned Endocrinology Provider 12/20/20 12/18/22 Carlos Livingston MD NO INFO AVAILABLE Assigned PCP 12/08/20 12/19/20 Trina Carbajal PA-C [address] [place] [address] Assigned PCP 12/20/20 04/28/24 Mari Funes, JERRY Personal Advocate & Liaison (PAL) Nurse 01/24/21 06/12/21 Jc Zavala MD [facility] [address] [place] [address] Hematology & Oncology 08/07/21 Barbi Manzo, JERRY Personal Advocate & Liaison (PAL) Family Medicine 12/24/21 07/08/23 [place] [address] [address] Assigned Musculoskeletal Provider 04/04/22 08/19/23 Cristofer Michelle MD [address] [place] [address] [address] [place] [address] Gastroenterology 07/28/22 Vivien Blanchard MD [address] [place] [address] [address] [place], [place] [phone] Urology 07/28/22 Sapna Hernandez MD [address] [place] [address]36[address] Assigned Nephrology Provider 07/11/22 09/25/22 Vivien Blanchard MD [address] [place] [address] [id number] Assigned Surgical Provider 07/25/22 06/30/23 Virgie Lobato PA-C [address] [place] [address] 037245 Assigned Nephrology Provider 09/26/22 03/28/24 Teetee Velazquez PA-C [address] [place] [address] [id number] Physician Sledger 05/11/23 Teetee Velazquez PA-C [address] [place] [address] Assigned Surgical Provider 07/01/23 Cora Shah, RN Personal Advocate & Liaison (PAL) Nurse 07/09/23 09/29/23 [place] [address] [address] 536[address] Assigned Musculoskeletal Provider 08/20/23 Cristal Cooper, JERRY Lead Processing Technologist Primary Care - CC 04/27/2404/08 Shannon Rowland PAAnthonyC [address] [place] [address] Assigned PCP 04/29/24 05/28/24 Lanie Foster, RD, LD [address] [id number] Registered Dietitian Nutrition 05/15/24 [place] [address] [place] [address] Assigned PCP 05/29/24 Melonie Caro [facility] [address] [place] [address] Pharmacist Pharmacist 06/05/24 Federico Linda MD [address] [place] [address] Cardiovascular Disease 06/13/24 Melonie Caro [facility] [address] [place] [address] Assigned MTM Pharmacist 06/29/24 Virgie Lobato, GIUSEPPEC [address] [place] [address] Assigned Nephrology Provider 07/30/24 Barry Ybarra MD [address] [place] [address] Hospitalist Infectious Diseases 08/31/24 Barry Ybarra MD [address] [place] [address] Assigned Infectious Disease Provider 10/27/24 documented as of this encounter
--- OUTSIDE RECORDS SUMMARY | 2024-11-12 17:26 | XMS_ITS | Encounter Summary ---
Author Organization [facility] Address [address] [place] [address] Care Team Providers Care Electrical Installation Inspector Name Role Phone Flynn Ruiz MD Primary Care Provider Sigifredo Segal MD Primary Care Provider [phone] No Ref-Primary, Physician Primary Care Provider Flynn Ruiz MD Primary Care Provider [phone] No Ref-Primary, Physician Primary Care Provider Sheryl Stringer RD Unavailable [phone] Flynn Ruiz MD Primary Care Provider [phone] Sheryl Jaimes MD Primary Care Provider Unavailab Flynn Morris MD Unavailable [phone] [facility] Primary Care Provider No Ref-Primary, Physician Primary Care Provider Flynn Ruiz MD Unavailable [phone] Ruth Ann [phone] Trina Carbajal PA-C Primary Care Provider [phone] Connie Blackwell MD Unavailable [phone] Ruth Ann Munoz MD Unavailable + Carlos Livingston MD Unavailable Jelean vailable Trina Carbajal PA-C Unavailable [phone] Carlos Livingston MD Unavailable Jelena vailable Carlos Livingston MD Unavailable Jelena vailable Trina Carbajal PA-C Unavailable [phone] Mari Funes RN Unavailable Unavailable Jc Zavala MD Unavailable [phone] Barbi Manzo RN Unavailable Unavailable Erasto Root MD Unavailable Cristofer Michelle MD Unavailable + [phone] Vivien Blanchard MD Unavailable [phone] Sapna Hernandez MD Unavailable Vivien Blanchard MD Unavailable + [phone] Virgie Lobato-C Unavailable [phone] Teetee Velazquez PA-C Unavailable [phone] Teetee Velazquez PA-C Unavailable [phone] Cora Shah RN Unavailable Brad Mayer Unavailable [phone] Mary Garcia MD Primary Care Provider [phone] Cristal Cooper RN Unavailable Kashif Shannon M PA-C Unavailable [phone], LD Unavailabl e Mary Garcia MD Unavailable Melonie Caro [facility] Unavailable Federico Linda MD Unavailable Melonie Caro [facility] Unavailable Virgie Lobato-C Unavailable Barry Ybarra MD Unavailable Barry Ybarra MD Unavailable [phone] Encounter Details Date Type Department Care Team (Late st Contact Info) Description 03/28/2012 [facility] Imaging [address] [place] [phone] Sherlyn Montes SOB (shortness of breath) (Primary Dx) Social History Tobacco Use Types Packs/Day Years Used Date Smoking Tobacco: Never Alcohol Use Standard Drinks/Week Comments No 0 (1 standard drink = 0.6 oz pur e alcohol) Comments No Sex and Gender Information Value Date Recorded Sex Assigned at Female 07/18/2020 1:16 PM HAND CUTTER APPRENTICE Legal Sex Female 3:23 AM HAND CUTTER APPRENTICE Gender Identity Female 07/18/2020 1:16 PM HAND CUTTER APPRENTICE Sexual Orientation Straight 07/18/2020 1 :16 PM HAND CUTTER APPRENTICE 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 Not on file Not on file documented as of this encounter Plan of Treatment Upcoming Encounters Date Type Department Care Team (Late st Contact Info) Description 11/16/2024 1:00 PM CDT Allied Health/Nurse Visit [facility] Urology [facility] 909 [facility] 4th [place] [phone] Lucero Britt PA-C 500 [place], [place] [address] 11/16/2024 2:45 PM CDT Office Visit [facility] Urology [address] 4th [place] [address] Vivien Blanchard MD 420 [facility] 394 [place], [place] [phone] 11/20/2024 3:30 PM CDT Office Visit [facility] [address] [place] [phone] [place] [address] [place] [address] 11/22/2024 9:15 AM CDT Office Visit [facility] Heart [facility] 25[address] [facility] [address] [place] [phone] Federico Linda MD 6403 [facility] [address] [place], [place] [address] 11/30/2024 10:30 AM CDT Lab [facility] Laboratory [address] [place] [address] 12/06/2024 10:10 AM CDT Office Visit [facility] Specialty [facility] 6525 [facility] [address] [place] [phone] Virgie Lobato PAAnthonyC [address] [place] [address] 12/28/2024 11:00 AM CDT Office Visit [facility] 2945 [facility] 200 [place] [address] Barry Ybarra MD 2945 [facility] 200 [place] [address] 01/26/2025 11:30 AM CDT Office Visit [facility] [address] [place] [phone] Mary Garcia MD [address] [place] [address] documented as of this encounter Visit Diagnoses Diagnosis SOB (shortness of breath)- Primary Shortness of breath documented in this encounter Additional Health Concerns Infection Onset Date Last Indicated Resolved Time Rule Out COVID-19 03/08/2021 03/08/2021 03/09/2021 1:42 AM CDT Rule Out C-difficile 03/10/2021 03/10/2021 5:50 PM CDT Rule Out COVID-19 2021 2021 04/25/2021 12:41 PM HAND CUTTER APPRENTICE Rule Out COVID-19 06/14/2022 06/14/2022 06/14/2022 11:30 AM HAND CUTTER APPRENTICE Rule Out COVID-19 07/03/2022 07/03/2022 07/04/2022 12:27 AM HAND CUTTER APPRENTICE Rule Out COVID-19 04/01/2024 04/01/2024 04/01/2024 10:07 PM CDT ESBL 07/05/2024 08/24/2024 Rule Out COVID-19 07/16/2024 07/16/2024 07/16/2024 11:04 PM HAND CUTTER APPRENTICE Rule Out COVID-19 09/01/2024 09/01/2024 09/01/2024 2:05 AM CDT Rule Out COVID09/21/2024 09/21/2024 09/21/2024 3:25 PM CDT documented as of this encounter Care Teams Electrical Installation Inspector Relationship Specialty Start Date End Date Flynn Ruiz MD PCP - General Family Practice 08/25/11 07/14/16 Sigifredo Segal MD [facility] [address] [place] [phone] PCP - General Family Practice 07/15/16 10/13/16 No Ref-Primary, Physician PCP - General 10/14/16 03/14/17 Flynn Ruiz MD PCP - General Family Practice 03/15/17 11/02/17 No Ref-Primary, Physician PCP - General 11/03/17 12/07/17 Flynn Ruiz MD PCP - General Family Practice 12/08/17 07/07/18 Sheryl Jaimes MD [facility] [address] [facility] [place] [address] PCP - General Family Practice 07/08/18 08/02/18 Flynn Ruiz MD [address] [place] [address] PCP - Assigned PCP 07/10/18 08/09/18 [facility] [address] [place] [address] PCP - General 08/03/18 08/04/18 No Ref-Primary, Physician PCP - General 08/05/18 08/30/18 [place] [address] [place] [address] PCP - General Family Practice 08/31/18 04/13/19 Flynn Ruiz MD [place] [address] [place] [address] PCP - General Family Practice 04/14/19 05/18/20 Trina Carbajal PA-C 6405 [facility] [address] [place] [address] PCP - General Family Medicine 05/19/20 04/10/24 [place] [address] [place] [address] PCP - General Family Medicine 04/11/[address] [place] [address] Escalator Operator Dietitian, Registered 11/03/17 Flynn Ruiz MD [address] [place] [address] Assigned PCP 04/24/18 12/24/18 Ruth Ann Munoz MD [place] [address] [place] [address] Assigned PCP 12/25/18 04/22/19 Ruth Ann Munoz MD [place] [address] [place] [address] Assigned PCP 04/30/19 05/27/19 Flynn Ruiz MD [address] [place] [address] Assigned PCP 04/23/19 04/29/19 Flynn Ruiz MD [address] [place] [address] Assigned PCP 05/28/19 07/22/19 Mari Funes RN Personal Advocate & Liaison (PAL) 07/27/19 07/30/19 Ruth Ann Munoz MD [place] [address] [place] [address] Assigned PCP 07/23/19 08/12/19 Trina Carbajal, PAAnthonyC [address] [place] [address] Assigned PCP 08/13/19 07/27/20 Federico Linda MD [address] [place] [address] Assigned Heart and Vascular Provider 03/29/20 Connie Blackwell MD [address] [place], [place] 3[address] Assigned Endocrinology Provider 07/14/20 12/19/20 Ruth Ann Munoz MD [place] [address] [place] [address] 207 [place] [address] Assigned PCP 07/28/20 08/25/20 Carlos Livingston MD NO INFO AVAILABLE Assigned PCP 08/26/20 08/31/20 Trina Carbajal PA-C [address] [place] [address]265 Assigned PCP 09/01/20 12/07/20 Carlos Livingston MD NO INFO AVAILABLE Assigned Endocrinology Provider 12/20/20 12/18/22 Carlos Livingston MD NO INFO AVAILABLE Assigned PCP 12/08/20 12/19/20 Trina Carbajal PA-C [address] [place] [address] Assigned PCP 12/20/20 04/28/24 Mari Funes, JERRY Personal Advocate & Liaison (PAL) Nurse 01/24/21 06/12/21 Jc Zavala MD [place] OCOLOG[facility]ATOLOGY [facility] [place] [address] Hematology & Oncology 08/07/21 Barbi Manzo, JERRY Personal Advocate & Liaison (PAL) Family Medicine 12/24/21 07/08/23 [place] [address] [place] [address] Assigned Musculoskeletal Provider 04/04/22 08/19/23 Cristofer Michelle MD [address] [place] [address] Gastroenterology 07/28/22 Vivien Blanchard MD [address] [place] [address] Urology 07/28/22 Sapna Hernandez MD [address] [address] Assigned Nephrology Provider 07/11/22 09/25/22 Vivien Blanchard MD [address] [place] [address] 740945 Assigned Surgical Provider 07/25/22 06/30/23 Virgie Lobato PA-C [address] [place] [address] Assigned Nephrology Provider 09/26/22 03/28/24 Teetee Velazquez PA-C [address] [place] [address] Physician Music Worker 05/11/23 Teetee Velazquez PA-C [address] [place] [address] Assigned Surgical Provider 07/01/23 Cora Shah RN Personal Advocate & Liaison (PAL) Nurse 07/09/23 09/29/23 [place] [address] [address] [address] Assigned Musculoskeletal Provider 08/20/23 Cristal Cooper, RN Lead Recruiting Assistant Primary Care - CC 04/27/2404/08 Shannon Rowland PA-C [address] [place] [address] Assigned PCP 04/29/24 05/28/24 Lanie Foster, RD, LD [address] 8630[address] Registered Dietitian Nutrition 05/15/24 [place] [address] [place], [place] 0500[address] Assigned PCP 05/29/24 Melonie Caro [facility] [address] [place], [place] 2532[address] Pharmacist Pharmacist 06/05/24 Federico Linda MD [address] [place] 737[address] Cardiovascular Disease 06/13/24 Melonie Caro [facility] [address] [place], [place] [address] Assigned MTM Pharmacist 06/29/24 Virgie Lobato PA-C 909 [place], [place] 1118[address] Assigned Nephrology Provider 07/30/24 Barry Ybarra MD [address] [place] [address] Hospitalist Infectious Diseases 08/31/24 Barry Ybarra MD [address] [place] [address] Assigned Infectious Disease Provider 10/27/24 documented as of this encounter
--- OUTSIDE RECORDS SUMMARY | 2024-11-12 17:26 | XMS_ITS | Encounter Summary ---
Author Organization [facility] Address [address] [place] [address] Care Team Providers Care Skiff Operator Name Role Phone Sheryl Stringer RD Unavailable [phone] Federico Linda MD Unavailable [phone] Jc Zavala MD Unavailable [phone] Cristofer Michelle MD Unavailable Vivien Blanchard MD Unavailable Teetee Velazquez-Javi Unavailable Teetee Velazquez PA-C Unavailable Brad Mayer DO Unavailable [phone] Mary Garcia MD Primary Care Provider Lanie Foster RD, LD Unavailabl e Mary Garcia MD Unavailable Melonie Caro [facility] Unavailable Federico Linda MD Unavailable [phone] VaniaMelonie duarte [facility] Unavailable [phone] Virgie Lobato PA-C Unavailable [phone] Barry Ybarra MD Unavailable [phone] Encounter Details Date Type Department Care Team (Late st Contact Info) Description 09/13/2024 MyC Medical Advice [facility] [address] [address] Stacia Curtis, JERRY Social History Tobacco Use Types Packs/Day [...] re latives? Twice a week 10/21/2024 Attends Voodoo Services Not on file 10/21 Active Member of Clubs or Organizations Not on f ile 10/21/2024 Attends Club or Organization Meetings Not on dian e 10/21/2024 Marital Status Not on file 10/21/2024 PHQ-2 Answer Date Recorded PHQ-2 Score 0 10/26/2024 [facility] - Occupational Stress Questionnaire Answer Date Recorded [...] Sex Assigned at Female 07/18/2020 1:16 PM REINFORCING METAL WORKER Legal Sex Female 3:23 AM REINFORCING METAL WORKER Gender Identity Female 07/18/2020 1:16 PM REINFORCING METAL WORKER Sexual Orientation Straight 07/18/2020 1: 16 PM REINFORCING METAL WORKER 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 Call was initially answered and then hung up on. Second time, call was forwarded. documented in this encounter Plan of Treatment Upcoming Encounters Date Type Department Care Team (Late st Contact Info) Description 11/16/2024 1:00 PM CDT Allied Health/Nurse Visit [facility] Urology [facility] 909 [facility] 4th [place] [phone] Lucero Britt PA-C 500 [place], [place] [phone] 11/16/2024 2:45 PM CDT Office Visit [facility] Urology [facility] 909 [facility] 4th [place] [address] Vivien Blanchard MD 420 [facility] 394 [place] [address] 11/20/2024 3:30 PM CDT Office [facility] [address] [place] [phone] [place] [address] [place], [place] [address] 11/22/2024 9:15 AM CDT Office Visit [facility] Heart [facility] [address] [facility] [address] [place] [address] Federico Linda MD 6405 [facility] [address] [place], [place] [address] 11/30/2024 10:30 AM CDT Lab [facility] [address] [place] [address] 12/06/2024 10:10 AM CDT Office Visit [facility] Specialty [facility] 6525 [facility] 200 [place] [phone] Virgie Lobato PANilesh [address] [place] [address] 12/28/2024 11:00 AM CDT Office Visit [facility] 2945 [facility] 200 [place] [phone] Barry Ybarra MD 2945 [facility] 200 [place] [address] 01/26/2025 11:30 AM CDT Office [facility] [address] [place] [phone] [place] [address] [place], [place] 59314[address] documented as of this encounter Goals Goal Patient Goal Type Associated Problems Recent Progress Patient-Stated? Author Problem Solving General On track( 019 9:24 AM REINFORCING METAL WORKER) Yes Sheryl Stringer RD Note: My [...] Total Score: 3 05/02/20 24 1:39 PM REINFORCING METAL WORKER documented as of this encounter Care Teams Skiff Operator Relationship Specialty [place] [address] [place] [address] PCP - General Family Medicine 04/11/[address] [facility] [address] [place] [address] [place] [address] Medical Customer Service Representative Dietitian, Registered 11/03/17 Federico Linda MD [address] [facility] [address] [place] 6[address]25 Assigned Heart and Vascular Provider 03/29/20 Jc Zavala MD MD [facility] [address] [place] [address] Hematology & Oncology 08/07/21 Cristofer Michelle MD 6 [facility]E [place], [place] [address] Gastroenterology 07/28/22 Vivien Blanchard MD 420 [facility] 394 [place], [place] [address] Urology 07/28/22 Teetee Velazquez PA-C [address] [place] [address] Physician Integration Technician 05/11/23 Teetee Velazquez PA-C [address] [place] [address] Assigned Surgical Provider 07/01/23 [place] [address] [address] [facility] 300 [place] [address] Assigned Musculoskeletal Provider 08/20/23 Lanie Foster, RD, LD [address] [place] 127505 Registered Dietitian Nutrition 05/15/24 [place] [address] [place] [address] Assigned PCP 05/29/24 Melonie Caro [facility] [address] [place], [place] 39[address] Pharmacist Pharmacist 06/05/24 Federico Linda MD [address] [place] [address] [place], [place] 6[address] Cardiovascular Disease 06/13/24 Melonie Caro [facility] [address] [place], [place] [address] Assigned MTM Pharmacist 06/29/24 Virgie Lobato, PA-C 9 [place], [place] [phone] Assigned Nephrology Provider 07/30/24 Barry Ybarra MD 2945 [facility] 200 [place], [place] [phone] Hospitalist Infectious Diseases 08/31/24 documented as of this encounter
--- OUTSIDE RECORDS SUMMARY | 2024-11-12 17:26 | XMS_ITS | Encounter Summary ---
Author Organization [facility] Address [address] [place] [address] Care Team Providers Care Compensator Name Role Phone Sheryl Stringer RD Unavailable [phone] Federico Linda MD Unavailable [phone] Jc Zavala MD Unavailable [phone] Cristofer Michelle MD Unavailable [phone] Vivien Blanchard MD Unavailable [phone] Teetee Velazquez-Javi Unavailable [phone] Teetee Velazquez PA-C Unavailable [phone] Brad Mayer DO Unavailable [phone] Mary Garcia MD Primary Care Provider Lanie Foster RD, LD Unavailabl e Mary Garcia MD Unavailable Melonie Caro [facility] Unavailable Federico Linda MD Unavailable [phone] VaniaMelonie duarte [facility] Unavailable [phone] Virgie Lobato PA-C Unavailable [phone] Barry Ybarra MD Unavailable [phone] Barry Ybarra MD Unavailable [phone] Encounter Details Date Type Department Care Team (Late st Contact Info) Description 09/15/2024 [facility] Medical Advice [facility] Urology Clinic [address] 4th [place] [address] Matt [place] Social History Tobacco Use Types Packs/Day Years [...] an overnight nursing home, or couch-surfing.) Yes 09/01/2024 Are you worried [...] Sex Assigned at Female 07/18/2020 1:16 PM SCENERY BUILDER Legal Sex Female 3:23 AM SCENERY BUILDER Gender Identity Female 07/18/2020 1:16 PM SCENERY BUILDER Sexual Orientation Straight 07/18/2020 1: 16 PM SCENERY BUILDER 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 Not on file documented as of this encounter Plan of Treatment Upcoming Encounters Date Type Department Care Team (Late st Contact Info) Description 11/16/2024 1:00 PM CDT Allied Health/Nurse Visit [facility] Urology [address] [address] Lucero Britt PA-C 500 [place], [place] [phone] 11/16/2024 2:45 PM CDT Office Visit [facility] Urology [facility] [address] [place] [address] 4th [place] [address] Vivien Blanchard MD 420 [facility] 394 [place], [place] [address] 11/20/2024 3:30 PM CDT Office Visit [address] [address] [place] [address] [place] [address] 11/22/2024 9:15 AM CDT Office Visit [facility] Heart [facility] [address] [facility] [address] [place] [phone] Federico Linda MD 6[address] [facility] [address] [place] [address] 11/30/2024 10:30 AM CDT Lab [facility] [address] [place] [phone] 12/06/2024 10:10 AM CDT Office [facility] 6525 [facility] 200 [place] [address] Virgie Lobato, PA-C [address] [place] [address] 12/28/2024 11:00 AM CDT Office Visit [facility] 2945 [facility] 200 [place] [address] Barry Ybarra MD [address] [address] 01/26/2025 11:30 AM CDT Office Visit [facility] [address] [place] [address] [place] [address] [place] [address] documented as of this encounter Goals Goal Patient Goal Type Associated Problems Recent Progress Patient-Stated? Author Problem Solving General On track( 019 9:24 AM SCENERY BUILDER) Yes Sheryl Stringer RD Note: My Goal: [...] Time PHQ-9 Depression Total Score: 3 05/02/20 1:39 PM SCENERY BUILDER documented as of this encounter Care Teams Compensator Relationship Specialty [place] [address] [place] [address] PCP - General Family Medicine 04/11/[address] [place] [address] Golf Caddy Dietitian, Registered 11/03/17 Federico Linda MD 6[address] [facility] [address] [place], [place] [address] Assigned Heart and Vascular Provider 03/29/20 Jc Zavala MD PR [facility] [address] 100 [place], [place] [address] Hematology & Oncology 08/07/21 Cristofer Michelle MD 516 [facility] 1E [place], [place] [phone] Gastroenterology 07/28/22 Vivien Blanchard MD 420 [facility] 394 [place], [place] [address] Urology 07/28/22 Teetee Velazquez PA-C 909 [place], [place] 7732[address] Physician Senior Net Application Developer 05/11/23 Teetee Velazquez PA-C 909 [place], [place] 984705 Assigned Surgical Provider 07/01/23 [place] [address] [address] 876617 Assigned Musculoskeletal Provider 08/20/23 Lanie Foster, RD, LD [address] [place] 500815 Registered Dietitian Nutrition 05/15/24 [place] [address] [place] [address] Assigned PCP 05/29/24 Melonie Caro RPH [address] [place], [place] [address] Pharmacist Pharmacist 06/05/24 Federico Linda MD [address] [facility] [address] [place] 7612[address] Cardiovascular Disease 06/13/24 Melonie Caro R[facility] [address] [place] [address] Assigned MTM Pharmacist 06/29/24 Virgie Lobato PA-C [address] [place] [address] Assigned Nephrology Provider 07/30/24 Barry Ybarra MD [address] [place] [address] Hospitalist Infectious Diseases 08/31/24 Barry Ybarra MD [address] [place] [address] Assigned Infectious Disease Provider 10/27/24 documented as of this encounter
--- OUTSIDE RECORDS SUMMARY | 2024-11-12 17:26 | XMS_ITS | Encounter Summary ---
Author Organization [facility] Address [address] [place] [address] Care Team Providers Care Optics Manufacturing Technician Name Role Phone Sheryl Stringer RD Unavailable [phone] Federico Linda MD Unavailable [phone] Jc Zavala MD Unavailable [phone] Cristofer Michelle MD Unavailable Vivien Blanchard MD Unavailable Teetee Velazquez-Javi Unavailable Teetee Velazquez PA-C Unavailable [phone] Brad Mayer DO Unavailable [phone] Mary Garcia MD Primary Care Provider [phone], LD Unavailabl e Mary Garcia MD Unavailable Melonie Caro [facility] Unavailable [phone] Federico Linda MD Unavailable [phone] VaniaLiborioMelonie [facility] Unavailable [phone] Virgie Lobato PA-C Unavailable [phone] Barry Ybarra MD Unavailable [phone] Barry Ybarra MD Unavailable [phone] Encounter Details Date Type Department Care Team (Late st Contact Info) Description 08/29/2024 MyC Medical Advice [facility] [place] [address] [facility] [address] [place] [address] Teetee Velazquez PA-C 909 [place] [address] Social History Tobacco Use Types Packs/Day Years Used Date Smoking Tobacco: Never Passive Smoke Exposure: Never Smokeless Tobacco: Never Alcohol Use Standard Drinks/Week Comments No 0 (1 standard drink = 0.6 oz pur e alcohol) PHQ-2 Answer Date Recorded PHQ-2 Score 1 05/02/2024 Exercise Vital Sign Answer Date Recorde d [...] in an abandoned building, in an overnight group home, or couch-surfing.) Yes 09/01/2024 Are you [...] Sex Assigned at Female 07/18/2020 1:16 PM MEDICAL SCHEDULER Legal Sex Female 3:23 AM MEDICAL SCHEDULER Gender Identity Female 07/18/2020 1:16 PM MEDICAL SCHEDULER Sexual Orientation Straight 07/18/2020 1: 16 PM MEDICAL SCHEDULER 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 [address] [place] [phone] [place] [address] [place], [place] [address] 11/22/2024 9:15 AM CDT Office Visit [facility] [address] [facility] [address] [place] [phone] Federico Linda MD [address] [facility] [address] [place], [place] [address] 11/30/2024 10:30 AM CDT Lab [facility] [address] [place] [phone] 12/06/2024 10:10 AM CDT Office Visit [facility] [address] [facility] 200 [place] [phone] Virgie Lobato, PA-C [address] [place] [address] 12/28/2024 11:00 AM CDT Office Visit [address] [phone] Barry Ybarra MD [address] [place] [address] 01/26/2025 11:30 AM CDT Office Visit [facility] [address] [place] [phone] [place] [address] [place], [place] [phone] documented as of this encounter Goals Goal Patient Goal Type Associated Problems Recent Progress Patient-Stated? Author Problem Solving General On track( 019 9:24 AM MEDICAL SCHEDULER) Yes Sheryl Stringer RD Note: My Goal: [...] Time ESBL 07/05/2024 08/24/2024 Rule Out COVID-19 09/01/2024 09/01/2024 09/01/2024 2:05 AM CDT Rule Out COVID-19 09/21/2024 09/21/2024 09/21/2024 3:25 PM CDT Assessment Noted Time PHQ-9 Depression Total Score: 3 05/02/20 24 1:39 PM MEDICAL SCHEDULER documented as of this encounter Care Teams Optics Manufacturing Technician Relationship Specialty [place] [address] [place] [address] PCP - General Family Medicine 04/11/[address] [place] [address] Galvanizer Zinc Dietitian, Registered 11/03/17 Federico Linda MD [address] [facility] [address] [place] [address] Assigned Heart and Vascular Provider 03/29/20 Jc Zavala MD [facility] [address] [place] [address] Hematology & Oncology 08/07/21 Cristofer Michelle MD [address] [place] [address] Gastroenterology 07/28/22 Vivien Blanchard MD [address] [place] [address] 394 [place] [address] Urology 07/28/22 Teetee Velazquez PA-C [address] [place] [address] Physician Inpatient Coder 05/11/23 Teetee Velazquez PA-C [address] [place] [address] 612525 Assigned Surgical Provider 07/01/23 [place] [address] [place] , [facility] 300 [place], [place] 213247 Assigned Musculoskeletal Provider 08/20/23 Lanie Foster, RD, LD [address] [place] 229285 Registered Dietitian Nutrition 05/15/24 [place] [address] [place] [address] Assigned PCP 05/29/24 Melonie aCro [facility] [address] [place], [place] 5[address] Pharmacist Pharmacist 06/05/24 Federico Linda MD [address] [facility] [address] [place] [address] Cardiovascular Disease 06/13/24 Melonie Caro [facility] [address] [place] [address] Assigned MTM Pharmacist 06/29/24 Virgie Lobato PA-C [address] [place] [address] 880815 Assigned Nephrology Provider 07/30/24 Barry Ybarra MD [address] [place] [address] Hospitalist Infectious Diseases 08/31/24 Barry Ybarra MD [address] [place] [address] Assigned Infectious Disease Provider 10/27/24 documented as of this encounter
--- OUTSIDE RECORDS SUMMARY | 2024-11-12 17:26 | XMS_ITS | Encounter Summary ---
Author Organization [facility] Address [address] [place] [address] Care Team Providers Care Mechanics Handyman Name Role Phone Tyrell Ruiz MD Primary Care Provider Sigifredo Segal MD Primary Care Provider [phone] No Ref-Primary, Physician Primary Care Provider Tyrell Ruiz MD Primary Care Provider [phone] No Ref-Primary, Physician Primary Care Provider Sheryl Stringer RD Unavailable [phone] Tyrell Ruiz MD Primary Care Provider [phone] Sheryl Jaimes MD Primary Care Provider Unavailab Tyrell Morris MD Unavailable [phone] [facility] Primary Care Provider No Ref-Primary, Physician Primary [...] [phone] Trina Carbajal PA-C Primary Care Provider [phone] Connie Blackwell MD Unavailable [phone] Ruth Ann Munoz MD Unavailable + Carlos Livingston MD Unavailable Jelena vailable Trina Carbajal PA-C Unavailable [phone] Carlos Livingston MD Unavailable Jelena vailable Carlos Livingston MD Unavailable Jelena vailable Trina Carbajal PA-C Unavailable [phone] Mari Funes RN Unavailable Unavailable Jc Zavala MD Unavailable [phone] Barbi Manzo RN Unavailable Unavailable Erasto Root MD Unavailable Cristofer Michelle MD Unavailable [phone] Vivien Blanchard MD Unavailable [phone] Sapna Hernandez MD Unavailable Vivien Blanchard MD Unavailable [phone] Virgie Lobato-C Unavailable [phone] Teetee Velazquez-C Unavailable [phone] Teetee Velazquez-C Unavailable Cora Shah RN Unavailable [phone] Brad Mayer Unavailable [phone] Mary Garcia MD Primary Care Provider Cristal Cooper RN Unavailable Shannon RowlandC Unavailable [phone], LD Unavailabl e Mary Garcia MD Unavailable Melonie Caro [facility] Unavailable Federico Linda MD Unavailable Melonie Caro [facility] Unavailable Virgie LobatoC Unavailable Barry Ybarra MD Unavailable Barry Ybarra MD Unavailable Encounter Details Date Type Department Care Team (Late st Contact Info) Description 12/14/2012 Office Visit-[facility] Heart [facility] [address] [facility] [address] [place] [address] Federico Linda MD [address] [facility] [address] [place] [address] Social History Tobacco Use Types Packs/Day Years Used Date Smoking Tobacco: Never Alcohol Use Standard Drinks/Week Comments No 0 (1 standard drink = 0.6 oz pur e alcohol) Comments No Sex and Gender Information Value Date Recorded Sex Assigned at Female 07/18/2020 1:16 PM RESEARCH METHODS INSTRUCTOR Legal Sex Female 3:23 AM RESEARCH METHODS INSTRUCTOR Gender Identity Female 07/18/2020 1:16 PM RESEARCH METHODS INSTRUCTOR Sexual Orientation Straight 07/18/2020 1: 16 PM RESEARCH METHODS INSTRUCTOR 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 - Chest Pain Precordial, 786.51 2. Other Chest Pain, 786.59 3. - CAD, 414.00 4. - Hypertension, 401.1 5. Shortness of Breath, 786.05 6. - Hyperlipidemia, 272.4 7. Abnormal test-Abnormal Persantine Nuclear Study, 794.30 ALLERGIES NKDA MEDICATIONS (prior to changes made today) 1. Aspirin Low Dose 81 mg tablet,delayed release (DR/EC), 1 p.o. daily 2. clopidogrel 75 mg tablet, 1 p.o. daily 3. glipizide 10 mg tablet, 1 p.o. twice daily 4. Lantus 100 unit/mL Solution, Take as Directed 5. lisinopril 20 mg tablet, 1 p.o. daily 6. lisinopril 30 mg tablet, 1 p.o. daily 7. metoprolol tartrate 25 mg tablet, 1 p.o. twice daily 8. multivitamin tablet, 1 p.o. daily 9. Nitrostat 0.4 mg tablet, sublingual, 1 tab SL prn 10. paroxetine HCl 40 mg tablet, 1 p.o. daily 11. simvastatin 10 mg tablet, 1 p.o. daily 12. Victoza 0.5 milligrams, 1 p.o. daily CHIEF COMPLAINTS CAD HISTORY OF PRESENT ILLNESS Nova Live is a pleasant 72-year-old who had an abnormal stress test done in 2011 with exertional chest discomfort and arm discomfort. She ultimately had nuclear stress testing and cardiac catheterization that found an LAD lesion. This was treated with stents. 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 The patient states that she has been more dyspneic with exertion over the past few months. She thinks that she had symptoms similar to this prior to her PCI. They have returned. However, she has not noticed any return of the angina. She denies any PND/orthopnea. There were no significant palpitations, presyncope, or syncope. Otherwise, she is doing okay. She had some intermittent heartburn after starting the Plavix. She has not been taking her blood pressure regularly. PAST HISTORY Past Medical Illnesses: diabetes mellitus, hypertension, depression, hyperlipidemia, pyelonephritis, hyponatraemia, acute renal failure, anxiety Past Cardiac Illnesses: abn stress nuc test, coronary artery disease Infectious History: escherichia coli bacteremia Surgeries/Procedures - General: hysterectomy, cholecystectomy, carpal tunnel surgery Cardiac/Vasc Procedures-Invasive: cardiac cath (left) Apr 2012 Cardiology Procedures-NonInvasive: myocardial perfusion (Nuc) Mar 2012 Cardiac Cath Results: 04/18 Distal left main 10%, LAD had about a 20% lesion proximally,diagonal branch had a 50% stenosis at its origin and just after that had about a 90% lesion in the mid-LAD,small PDA with just 20% lesion proximally. SUZIE placed to mid LAD Left Ventricular Ejection Fraction: EF<GT>55% by nuclear study -Mar 2012 Nuclear Results: 03/18 moderate apical and septal myocardial ischemia in area of LAD EF<GT>55% by nuclear study -Mar 2012 REVIEW OF SYSTEMS GENERAL feels well, no change in exercise tolerance. INTEGUMENTARY denies any change in hair or nails, rashes, or skin lesions. EYES wears eye glasses/contact lenses EARS, NOSE, THROAT, MOUTH denies any hearing loss, epistaxis, hoarseness or difficulty speaking. RESPIRATORY dyspnea with exertion CARDIOVASCULAR light headedness - with standing, negative for chest discomfort, negative for palpitations, edema ABDOMINAL Acid reflux - more than usual GENITOURINARY-FEMALE nocturia, 2 x's MUSCULOSKELETAL joint pain, in both knees - arthritis, left hip pain NEUROLOGICAL denies any history of recurrent headaches, strokes, TIA, or seizure disorder. PSYCHIATRIC positive for depression controlled with medication ENDOCRINE insulin dependent diabetes mellitus HEMATOLOGICAL/IMMUNOLOGIC denies any food allergies, seasonal allergies, bleeding disorders or lymphadenopathy. PHYSICAL EXAMINATION VITAL SIGNS: Blood Pressure: 142/84Sitting, Left arm, large cuff Pulse- 88.00/min. Weight- 179.20 lbs. Height- 64 BMI Measurement: 31 CONSTITUTIONAL cooperative, alert and oriented,well developed, well [...] or S4, Apical impulse not displaced, no gallops or rubsdetected. Grade I/ LLSB ABDOMEN abdomen soft, bowel sounds normoactive PERIPHERAL PULSES pulses full and equal in all extremities EXTREMITIES & BACK no clubbing, cyanosis or edema NEUROLOGICAL no gross motor deficits noted, affect appropriate, oriented to time, person and place. MEDICATIONS UPDATED/STARTED TODAY: lisinopril 30 mg tablet, 1 p.o. daily, #90 (Ninety) multivitamin tablet, 1 p.o. daily, #0 (Zero) Victoza 0.5 milligrams, 1 p.o. daily, #0 (Zero) IMPRESSIONS/PLAN 1. Dyspnea on exertion. With her previous LAD stent and dissection, I would repeat stress testing. We will have her do a treadmill echocardiogram as she has not had any structural evaluation of her heart previously. I would check her valves given her murmur and grossly visualize her right heart in case severe RV dilation or severe pulmonary hypertension were incidentally found. We will have her hold her beta-miguelangel prior to the stress test. She will continue her other antihypertensives. 2. Hypertension. Blood pressure is above goal. We will increase her lisinopril from 20 mg to 30 mg daily. 3. Hyperlipidemia. Historically, she has had good control. Her last LDL was 69 on 05-24-12 on her current statin. We will see her back in the clinic if her stress is significantly abnormal. Otherwise, she will follow up in three to four months to discuss stopping dual antiplatelet therapyat that time. During our clinic visit, her did request to establish care for his palpitations (nocturnal). I have asked him to schedule a consult with me in the future. TODAYS ORDERS 1. Treadmill Stress Echo 1 Day, OFF MEDS 2. Return Visit 3 months Federico Linda MD documented in this encounter Plan of Treatment Upcoming Encounters Date Type Department Care Team (Late st Contact Info) Description 11/16/2024 1:00 PM CDT Allied Health/Nurse Visit [facility] [address] [address] Lucero Britt PA-C 500 [place], [place] [address] 11/16/2024 2:45 PM CDT Office Visit [facility] Urology [address] [address] Vivien Blanchard MD 420 [facility] 394 [place], [place] [phone] 11/20/2024 3:30 PM CDT Office Visit [facility] [address] [place] [phone] [place] [address] [place] [address] 11/22/2024 9:15 AM CDT Office Visit [facility] Heart [facility] [address] [facility] [address] [place] [phone] Federico Linda MD [address] [facility] [address] [place], [place] [address] 11/30/2024 10:30 AM CDT Lab [facility] [address] [place] [phone] 12/06/2024 10:10 AM CDT Office Visit [facility] 6525 [facility] 200 [place] [phone] Virgie Lobato, PA-C [address] [place] [address] 12/28/2024 11:00 AM CDT Office Visit [address] [phone] Barry Ybarra MD [address] [place] [address] 01/26/2025 11:30 AM CDT Office Visit [facility] [address] [place] [phone] [place] [address] [place], [place] [phone] documented as of this encounter Visit Diagnoses Not on filedocumented in this encounter Additional Health Concerns Infection Onset Date Last Indicated Resolved Time Rule Out COVID-19 03/08/2021 03/08/2021 03/09/2021 1:42 AM CDT Rule Out C-difficile 03/10/2021 03/10/2021 021 5:50 PM CDT Rule Out COVID-19 2021 2021 04/25/2021 12:41 PM RESEARCH METHODS INSTRUCTOR Rule Out COVID-19 06/14/2022 06/14/2022 06/14/2022 11:30 AM RESEARCH METHODS INSTRUCTOR Rule Out COVID-19 07/03/2022 07/03/2022 07/04/2022 12:27 AM RESEARCH METHODS INSTRUCTOR Rule Out COVID-19 04/01/2024 04/01/2024 04/01/2024 10:07 PM CDT ESBL 07/05/2024 08/24/2024 Rule Out COVID-19 07/16/2024 07/16/2024 07/16/2024 11:04 PM RESEARCH METHODS INSTRUCTOR Rule Out COVID-19 09/01/2024 09/01/2024 09/01/2024 2:05 AM CDT Rule Out COVID-19 09/21/2024 09/21/2024 09/21/2024 3:25 PM CDT documented as of this encounter Care Teams Mechanics Handyman Relationship Specialty Start Date End Date Tyrell Ruiz MD PCP - General Family Practice 08/25/11 07/14/16 Sigifredo Segal MD [facility] [address] [place] [phone] PCP - General Family Practice 07/15/16 10/13/16 No Ref-Primary, Physician PCP - General 10/14/16 03/14/17 Tyrell Ruiz MD PCP - General Family Practice 03/15/17 11/02/17 No Ref-Primary, Physician PCP - General 11/03/17 12/07/17 Tyrell Ruiz MD PCP - General Family Practice 12/08/17 07/07/18 Sheryl Jaimes MD [facility] [address] [place] [address] [place] [address] PCP - General Family Practice 07/08/18 08/02/18 Tyrell Ruiz MD [address] [place] [address] PCP - Assigned PCP 07/10/18 08/09/18 [facility] [address] [place], [place] [phone] PCP - General 08/03/18 08/04/18 No Ref-Primary, Physician PCP - General 08/05/18 08/30/18 [place] [address] [place] [address] PCP - General Family Practice 08/31/18 04/13/19 Tyrell Ruiz MD [place] [address] [facility] [address] [place] [address] PCP - General Family Practice 04/14/19 05/18/20 Trina Carbajal PA-C [address] [facility] [address] [place] [address] PCP - General Family Medicine 05/19/20 04/10/24 [place] [address] [place] [address] PCP - General Family Medicine 04/11/[address] [place] [address] Pipe Fitter Soft Copper Dietitian, Registered 11/03/17 Tyrell Ruiz MD [address] [place], [place] [address] Assigned PCP 04/24/18 12/24/18 Ruth Ann Munoz MD [place] [address] [employer] [address] [place] [address] Assigned PCP 12/25/18 04/22/19 Ruth Ann Munoz MD [place] [address] [employer] [address] [place] [address] Assigned PCP 04/30/19 05/27/19 Tyrell Ruiz MD [address] [place] [address] Assigned PCP 04/23/19 04/29/19 Tyrell Ruiz MD [address] [place] [address] Assigned PCP 05/28/19 07/22/19 Mari Funes, JERRY Personal Advocate & Liaison (PAL) 07/27/19 07/30/19 Ruth Ann Munoz MD [place] [address] [place] [address] Assigned PCP 07/23/19 08/12/19 Trina Carbajal PA-C [address] [place] [address] Assigned PCP 08/13/19 07/27/20 Federico Linda MD [address] [place] [address] Assigned Heart and Vascular Provider 03/29/20 Connie Blackwell MD [address] [place], [place] [address] Assigned Endocrinology Provider 07/14/20 12/19/20 Ruth Ann Munoz MD [place] [address] [place] [address] Assigned PCP 07/28/20 08/25/20 Carlos Livingston MD NO INFO AVAILABLE Assigned PCP 08/26/20 08/31/20 Trina Carbajal PA-C [address] [place] [address] Assigned PCP 09/01/20 12/07/20 Carlos Livingston MD NO INFO AVAILABLE Assigned Endocrinology Provider 12/20/20 12/18/22 Carlos Livingston MD NO INFO AVAILABLE Assigned PCP 12/08/20 12/19/20 Trina Carbajal PA-C [address] [facility] [address] [place] [address] Assigned PCP 12/20/20 04/28/24 Mari Funes, RN Personal Advocate & Liaison (PAL) Nurse 01/24/21 06/12/21 Jc Zavala MD [facility] [address] [place] [address] Hematology & Oncology 08/07/21 Barbi Manzo, JERRY Personal Advocate & Liaison (PAL) Family Medicine 12/24/21 07/08/23 [place] [address] [place] [address] Assigned Musculoskeletal Provider 04/04/22 08/19/23 Cristofer Michelle MD [address] [place], [place] [address]B [address] [place], [place] [address] Gastroenterology 07/28/22 Vivien Blanchard MD [address] [place] [address] 544895 Urology 07/28/22 Sapna Hernandez MD 420 [facility] 394 [place], [place] [address] Assigned Nephrology Provider 07/11/22 09/25/22 Vivine Blanchard MD [address] [place] [address] 313045 Assigned Surgical Provider 07/25/22 06/30/23 Virgie Lobato PA-C [address] [place] [address] Assigned Nephrology Provider 09/26/22 03/28/24 Teetee Velazquez PA-C [address] [place] [address] 870285 Physician Parcel Post Weigher 05/11/23 Teetee Velazquez PA-C [address] [place] [address] [id number] Assigned Surgical Provider 07/01/23 Cora Shah RN Personal Advocate & Liaison (PAL) Nurse 07/09/23 09/29/23 [place] [address] [address] Assigned Musculoskeletal Provider 08/20/23 Cristal Cooper, JERRY Lead Gastroenterology Nurse Practitioner Primary Care - CC 04/27/2404/08 Shannon Rowland PA-C [address] [place] [address] Assigned PCP 04/29/24 05/28/24 Lanie Foster, RD, LD [address] [place] [address] Registered Dietitian Nutrition 05/15/24 [place] [address] [place] [address] Assigned PCP 05/29/24 Melonie Caro [facility] [address] [place] [address] Pharmacist Pharmacist 06/05/24 Federico Linda MD [address] [facility] [address] [place] [address] Cardiovascular Disease 06/13/24 Melonie Caro [facility] [address] [place] [address] Assigned MTM Pharmacist 06/29/24 Virgie Lobato, PA-C [address] [place] [address] Assigned Nephrology Provider 07/30/24 Barry Ybarra MD [address] [place] [address] Hospitalist Infectious Diseases 08/31/24 Barry Ybarra MD [address] [place] [address] Assigned Infectious Disease Provider 10/27/24 documented as of this encounter
--- OUTSIDE RECORDS SUMMARY | 2024-11-12 17:26 | XMS_ITS | Encounter Summary ---
Author Organization [facility] Address [address] [place] [address] Care Team Providers Care Kiln Cleaner Name Role Phone Sheryl Stringer RD Unavailable [phone] Federico Linda MD Unavailable [phone] Jc Zavala MD Unavailable [phone] Cristofer Michelle MD Unavailable [phone] Vivien Blanchard MD Unavailable [phone] Teetee Velazquez-Javi Unavailable Teetee Velazquez PA-C Unavailable Brad Mayer DO Unavailable [phone] Mary Garcia MD Primary Care Provider Lanie Foster RD, LD Unavailabl e Mary Garcia MD Unavailable Melonie Caro [facility] Unavailable [phone] Federico Linda MD Unavailable [phone] Melonie Caro [facility] Unavailable [phone] Virgie Lobato PA-C Unavailable [phone] Barry Ybarra MD Unavailable [phone] Barry Ybarra MD Unavailable [phone] Encounter Details Date Type Department Care Team (Late st Contact Info) Description 08/27/2024 MyC Medical Advice [facility] [address] [facility] [address] [place] [address] Federico Linda MD [address] [facility] [address] [place], [place] [address] Social History Tobacco Use Types Packs/Day Years [...] you got money to buy more? No 07/17/2024 Within the past 12 months, d id the food you bought just not last and you didn t have money to get more? No 07/17/2024 Housing Stability Answer Date Recorded Do you have housing? (Michellein g is defined as stable permanent housing and does not include staying outside in a car, in a tent, in an abandoned building, in an overnight snf, or couch-surfing.) Yes 07/17/2024 Are you worried about losing your housing? No 07/17/2024 Financial Resource Strain Answer Date R ecorded Within the past 12 months, h ave you or your family members you live with been unable to get utilities (heat, electricity) when it was really needed? No 07/17/2024 Transportation Needs Answer Date Record ed Within the past 12 months, h as lack of transportation kept you from medical appointments, getting your medicines, non-medical meetings or appointments, work, or from getting things that you need? No 07/17/2024 Interpersonal Safety Answer Date Record ed Do you feel physically and e motionally safe where you currently live? Yes 07/17/2024 Within the past 12 months, h ave you been hit, slapped, kicked or otherwise physically hurt by someone? No 07/17/2024 Within the past 12 months, h ave you been humiliated or emotionally abused in other ways by your partner or ex-partner? 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 Not on file Not on file documented as of this encounter Plan of Treatment Upcoming Encounters Date Type Department Care Team (Late st Contact Info) Description 11/16/2024 1:00 PM CDT Allied Health/Nurse Visit [facility] [address] [address] Lucero Britt PA-C 500 [place] [address] 11/16/2024 2:45 PM CDT Office Visit [facility] [address] [address] Vivien Blanchard MD [address] [facility] [address] [place] [address] 11/20/2024 3:30 PM CDT Office Visit [facility] [address] [place] [phone] [place] [address] [place] [address] 11/22/2024 9:15 AM CDT Office Visit [facility] [address] [facility] [address] [place] [phone] Federico Linda MD [address] [facility] [address] [place], [place] [address] 11/30/2024 10:30 AM CDT Lab [facility] [address] [place] [phone] 12/06/2024 10:10 AM CDT Office Visit [facility] [address] [facility] 200 [place] [address] Virgie Lobato, PA-C [address] [place] [address] 12/28/2024 11:00 AM CDT Office Visit [address] [phone] Barry Ybarra MD [address] [place] [address] 01/26/2025 11:30 AM CDT Office Visit [facility] [address] [place] [address] [place] [address] [place] [address] documented as of this encounter Goals Goal Patient Goal Type Associated Problems Recent Progress Patient-Stated? Author Problem Solving General On track( 019 9:24 AM LINE SERVICE SUPERVISOR) Yes Sheryl Stringer RD Note: My [...] Score: 3 05/02/20 24 1:39 PM LINE SERVICE SUPERVISOR documented as of this encounter Care Teams Kiln Cleaner Relationship Specialty [place] [address] [place] [address] PCP - General Family Medicine 04/11/[address] [place] [address] Aquaculture Farmer Dietitian, Registered 11/03/17 Federico Linda MD [address] [facility] [address] [place] [address] Assigned Heart and Vascular Provider 03/29/20 Jc Zavala MD [facility] [address] [place], [place] [address] Hematology & Oncology 08/07/21 Cristofer Michelle MD [address] [place] [address] Gastroenterology 07/28/22 Vivien Blanchard MD [address] [place] [address] 394 [place] [address] Urology 07/28/22 Teetee Velazquez PA-C [address] [place] [address] Physician Records Management Analyst 05/11/23 Teetee Velazquez PA-C [address] [place] [address] Assigned Surgical Provider 07/01/23 [place] [address] [place] [facility] [address] [place] [address] Assigned Musculoskeletal Provider 08/20/23 Lanie Foster, RD, LD [address] [address] Registered Dietitian Nutrition 05/15/24 [place] [address] [place] [address] Assigned PCP 05/29/24 Melonie Caro RPH [address] [place], [place] [phone] Pharmacist Pharmacist 06/05/24 Federico Linda MD [address] [facility] [address] [place] [id number] Cardiovascular Disease 06/13/24 Melonie Caro [facility] [address] [place], [place] [address] Assigned MTM Pharmacist 06/29/24 Virgie Lobato, PAAnthonyC [address] [place] [address]365 Assigned Nephrology Provider 07/30/24 Barry Ybarra MD [facility] [id number] Hospitalist Infectious Diseases 08/31/24 Barry Ybarra MD [facility]5 [facility] [address] [place] [address] Assigned Infectious Disease Provider 10/27/24 documented as of this encounter
--- OUTSIDE RECORDS SUMMARY | 2024-11-12 17:26 | XMS_ITS | Encounter Summary ---
Author Organization [facility] Address [address] [place] [address] Care Team Providers Care Certified Hand Therapist Name Role Phone Tyrell Ruiz MD Primary Care Provider Sigifredo Segal MD Primary Care Provider [phone] No Ref-Primary, Physician Primary Care Provider Tyrell Ruiz MD Primary Care Provider [phone] No Ref-Primary, Physician Primary Care Provider Sheryl Stringer RD Unavailable [phone] Tyrell Ruiz MD Primary Care Provider [phone] Sheryl Jaimes MD Primary Care Provider Unavailab Tyrell Morris MD Unavailable [phone] [facility] Primary Care Provider No Ref-Primary, Physician Primary Care Provider Tyrell Ruiz MD Unavailable [phone] Ruth Ann Munoz MD Primary Care [...] [phone] Trina Carbajal PA-C Primary Care Provider [phone] Connie Blackwell MD Unavailable [phone] Ruth Ann Munoz MD Unavailable + Carlos Livingston MD Unavailable Jelena vailable Trina Carbajal PA-C Unavailable [phone] Carlos Livingston MD Unavailable Jelena vailable Carlos Livingston MD Unavailable Jelena vailable Trina Carbajal PA-C Unavailable [phone] Mari Funes RN Unavailable Unavailable Jc Zavala MD Unavailable [phone] Barbi Manzo RN Unavailable Unavailable Erasto Root MD Unavailable Cristofer Michelle MD Unavailable [phone] Vivien Blanchard MD Unavailable [phone] Sapna Hernandez MD Unavailable Vivien Blanchard MD Unavailable [phone] Virgie Lobato-C Unavailable [phone] Teetee Velazquez-C Unavailable [phone] Teetee Velazquez-C Unavailable Cora Shah RN Unavailable Brad Mayer Unavailable [phone] Mary Garcia MD Primary Care Provider [phone] Cristal Cooper RN Unavailable Shannon RowlandC Unavailable [phone], LD Unavailabl e Mary Garcia MD Unavailable Melonie Caro [facility] Unavailable Federico Linda MD Unavailable Melonie Caro [facility] Unavailable Virgie LobatoC Unavailable Barry Ybarra MD Unavailable Barry Ybarra MD Unavailable Encounter Details Date Type Department Care Team (Late st Contact Info) Description 06/08/2012 Office Visit-[facility] Heart [facility] [address] [facility] [address] [place] [address] Liz Cooper E, FIBERGLASS INSULATION INSTALLER [facility] [address] [facility] [address] [place] [id number] Social History Tobacco Use Types Packs/Day Years Used Date Smoking Tobacco: Never Alcohol Use Standard Drinks/Week Comments No 0 (1 standard drink = 0.6 oz pur e alcohol) Comments No Sex and Gender Information Value Date Recorded Sex Assigned at Female 07/18/2020 1:16 PM HEARING HEALTHCARE PRACTITIONER Legal Sex Female 3:23 AM HEARING HEALTHCARE PRACTITIONER Gender Identity Female 07/18/2020 1:16 PM HEARING HEALTHCARE PRACTITIONER Sexual Orientation Straight 07/18/2020 1: 16 PM HEARING HEALTHCARE PRACTITIONER 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 [id number] DATE: 06/08/2012 NOVA LIVE DATE OF : 1940 AGE: [age] years old Referring Physician: TYRELL RUIZ Referring Clinic: [facility] CURRENT DIAGNOSES 1. - CAD, 414.00 2. - Hyperlipidemia, 272.4 3. - Hypertension, 401.1 4. - Chest Pain Precordial, 786.51 5. Other Chest Pain, 786.59 6. Abnormal test-Abnormal Persantine Nuclear Study, 794.30 ALLERGIES NKDA MEDICATIONS (prior to changes made today) 1. Aspirin Low Dose 81 mg tablet,delayed release (DR/EC), 1 p.o. daily 2. glipizide 10 mg tablet, 1 p.o. twice daily 3. Lantus 100 unit/mL Solution, Take as Directed 4. lisinopril 20 mg tablet, 1 p.o. daily 5. metoprolol tartrate 25 mg tablet, 1 p.o. twice daily 6. Nitrostat 0.4 mg tablet, sublingual, 1 tab SL prn 7. paroxetine HCl 40 mg tablet, 1 p.o. daily 8. Plavix 75 mg tablet, 1 p.o. daily 9. simvastatin 10 mg tablet, 1 p.o. daily CHIEF COMPLAINTS Followup of HTN HISTORY OF PRESENT ILLNESS: This is a delightful 72-year-old female who presents to the [facility] today for a follow-up visit. She is a patient of Dr. Rios seen in our clinic for a past medical history of: Coronary artery disease, hypertension, diabetes mellitus and hyperlipidemia. Nova has a history of coronary artery disease. Due to abnormal stress test she underwent coronaryangiography revealing significant disease in her left anterior descending. She subsequently had placement of a drug-eluting stent to the mid left anterior descending in April of 2012. Since then she has been free from any anginal symptoms and is aware to remain on Plavix for one year. I last saw her one month ago. Her systolic blood pressure was 90 mm of mercury and she have some light-headedness. Therefore, I elected to discontinue her HCTZ. She is on low dose statin therapy for her hyperlipidemia. She returns today for a basic metabolic panel and reassessment. Nova comes in today with her daughter and tells me she is doing well. She denies any chest discomfort, neck, arm or jaw pain with activity or at rest. She is not short of breath. She denies any palpations, light-headedness, dizziness or near syncope. She also denies orthopnea, paroxysmal nocturnal dyspnea or peripheral edema. She does not participate in any formal exercise at this time. She is meeting with an hatchery worker here soon in regards to her diabetes mellitus. She is unsure if theyhave assessed her lipids. I reviewed her basic metabolic panel with her. This shows a sodium level of 135, potassium 4.6, blood urea nitrogen 25, creatinine 1.05. Her blood pressure today is 140/73, heart rate is 72 beats per minute. Her lungs are clear. There is no evidence of any peripheral edema. Further review of systems and physical examination as noted below. PAST HISTORY Past Medical Illnesses: diabetes mellitus, [...] drinking; Smoking - never smoked; Diet - pt never really feels hungry.daughterstates pt eats whatever her grandchildren leave on her plate; Lifestyle - ; Exercise - no regular exercise; REVIEW OF SYSTEMS GENERAL feels well, no change in exercise tolerance. INTEGUMENTARY denies any change in hair or nails, rashes, or skin lesions. EYES wears eye glasses/contact lenses EARS, NOSE, THROAT, MOUTH denies any hearing loss, epistaxis, hoarseness or difficulty speaking. RESPIRATORY dyspnea with exertion, gotten better CARDIOVASCULAR light headedness - with standing, negative for chest discomfort, since last visit, negative for palpitations, negative for edema ABDOMINAL Acid reflux - more than usual GENITOURINARY-FEMALE nocturia, 2 x's MUSCULOSKELETAL joint pain, in both knees - arthritis NEUROLOGICAL denies any history of recurrent headaches, strokes, TIA, or seizure disorder. PSYCHIATRIC positive for depression controlled with medication ENDOCRINE insulin dependent diabetes mellitus HEMATOLOGICAL/IMMUNOLOGIC denies any food allergies, seasonal allergies, bleeding disorders or lymphadenopathy. PHYSICAL EXAMINATION VITAL SIGNS: Blood Pressure: 140/73Sitting, Right arm, large cuff Pulse- 72.00/min. Weight- 170.60 lbs. Height- 64 BMI Measurement: 29 CONSTITUTIONAL [...] rubs detected. ABDOMEN abdomen soft, bowel sounds normoactive PERIPHERAL PULSES pulses full and equal in all extremities EXTREMITIES & BACK no clubbing, cyanosis or edema NEUROLOGICAL no gross motor deficits noted, affect appropriate, oriented to time, person and place. MEDICATIONS UPDATED/STARTED TODAY: IMPRESSIONS/PLAN IMPRESSION AND PLAN: 1. Coronary artery disease, history of drug-eluting stent to the mid left anterior descending in April 2012 after abnormal stress test. She is on Plavix for one full year and aspirin indefinitely.Will continue her beta blockade and INDERJIT inhibitor therapy. She is free from any anginal symptoms. 2. Hypertension. Her blood pressure was low leading us to discontinue her HCTZ. Follow-up basic metabolic panel is within normal limits. Her blood pressure now is borderline and we will continue to monitor this and consider adding back this agent if need be. I will not make any changes in her medications today. 3. Noninsulin dependent diabetes mellitus. 4. Hyperlipidemia. She is on low dose simvastatin. Her last LDL level of 85 in July of 2011. I will have my nurse contact her hatchery worker to see if her lipids are drawn and if not have these assessed here in the near future. Clearly her LDL goal is less than 70. She would like to be seen by a fabric worker foreman in the [place] location as opposed to [place]. I will have her return to follow-up with Dr. Linda in six months so we can monitor her blood pressure. She isto notify our clinic with any chest pain, shortness of breath or other concerns she may have duringthe interim. TODAYS ORDERS 1. F/U with Federico Linda MD 6 months Liz Cooper N.P. documented in this encounter Plan of Treatment Upcoming Encounters Date Type Department Care Team (Late st Contact Info) Description 11/16/2024 1:00 PM CDT Allied Health/Nurse Visit [facility] [address] [place] [address] Lucero Britt PA-C 500 [place], [place] [phone] 11/16/2024 2:45 PM CDT Office Visit [facility] [address] [address] Vivien Blanchard MD [address] [facility] 394 [place], [place] [phone] 11/20/2024 3:30 PM CDT Office Visit [facility] [address] [place] [phone] [place] [id number] [place] [address] 11/22/2024 9:15 AM CDT Office Visit [facility] [address] [facility] [address] [place] [phone] Federico Linda MD [address] [facility] [address] [place], [place] [address] 11/30/2024 10:30 AM CDT Lab [facility] [address] [place] [phone] 12/06/2024 10:10 AM CDT Office Visit [address] 200 [place] [address] Virgie Lobato, PANilesh 909 [place] [address] 12/28/2024 11:00 AM CDT Office Visit [facility] [address] [facility] 200 [place] [address] Barry Ybarra MD [address] [place] [address] 01/26/2025 11:30 AM CDT Office Visit [facility] [address] [place] [phone] [place] [address] [place] [address] documented as of this encounter Visit Diagnoses Not on filedocumented in this encounter Additional Health Concerns Infection Onset Date Last Indicated Resolved Time Rule Out COVID-19 03/08/2021 03/08/2021 03/09/2021 1:42 AM CDT Rule Out C-difficile 03/10/2021 03/10/2021 021 5:50 PM CDT Rule Out COVID-19 2021 2021 04/25/2021 12:41 PM HEARING HEALTHCARE PRACTITIONER Rule Out COVID-19 06/14/2022 06/14/2022 06/14/2022 11:30 AM HEARING HEALTHCARE PRACTITIONER Rule Out COVID-19 07/03/2022 07/03/2022 07/04/2022 12:27 AM HEARING HEALTHCARE PRACTITIONER Rule Out COVID-19 04/01/2024 04/01/2024 04/01/2024 10:07 PM CDT ESBL 07/05/2024 08/24/2024 Rule Out COVID-19 07/16/2024 07/16/2024 07/16/2024 11:04 PM HEARING HEALTHCARE PRACTITIONER Rule Out COVID-19 09/01/2024 09/01/2024 09/01/2024 2:05 AM CDT Rule Out COVID-19 09/21/2024 09/21/2024 09/21/2024 3:25 PM CDT documented as of this encounter Care Teams Certified Hand Therapist Relationship Specialty Start Date End Date Tyrell Ruiz MD PCP - General Family Practice 08/25/11 07/14/16 Sigifredo Segal MD [facility] [address] [facility] [address] PCP - General Family Practice 07/15/16 10/13/16 No Ref-Primary, Physician PCP - General 10/14/16 03/14/17 Tyrell Ruiz MD PCP - General Family Practice 03/15/17 11/02/17 No Ref-Primary, Physician PCP - General 11/03/17 12/07/17 Tyrell Ruiz MD PCP - General Family Practice 12/08/17 07/07/18 Sheryl Jaimes MD [facility] [address] [facility] [place] [address] PCP - General Family Practice 07/08/18 08/02/18 Tyrell Ruiz MD [address] [place] [address] PCP - Assigned PCP 07/10/18 08/09/18 [facility] [address] [place] [address] PCP - General 08/03/18 08/04/18 No Ref-Primary, Physician PCP - General 08/05/18 08/30/18 [place] [address] [place] [address] PCP - General Family Practice 08/31/18 04/13/19 Tyrell Ruiz MD [facility] [address] [place] [address] PCP - General Family Practice 04/14/19 05/18/20 Trina Carbajal PA-C [address] [facility] [address] [place] [address] PCP - General Family Medicine 05/19/20 04/10/24 [place] [address] [place] [address] PCP - General Family Medicine 04/11/[address] [place] [address] Farm Specialist Dietitian, Registered 11/03/17 Tyrell Ruiz MD [address] [place] [address] Assigned PCP 04/24/18 12/24/18 Ruth Ann Munoz MD [place] [address] [place], [place] [address] Assigned PCP 12/25/18 04/22/19 Ruth Ann Munoz MD [place] [address] [place], [place] [address] Assigned PCP 04/30/19 05/27/19 Tyrell Ruiz MD [address] [place] [address] Assigned PCP 04/23/19 04/29/19 Tyrell Ruiz MD [address] [place] [address] Assigned PCP 05/28/19 07/22/19 Mari Funes, JERRY Personal Advocate & Liaison (PAL) 07/27/19 07/30/19 Ruth Ann Munoz MD [place] [address] [place] [address] Assigned PCP 07/23/19 08/12/19 Trina Carbajal, PAAnthonyC [address] [place] [address] Assigned PCP 08/13/19 07/27/20 Federico Linda MD [address] [place] [address] Assigned Heart and Vascular Provider 03/29/20 Connie Blackwell MD [address] [place] [address] Assigned Endocrinology Provider 07/14/20 12/19/20 Ruth Ann Munoz MD [place] [address] [facility] [address] [place] [address] Assigned PCP 07/28/20 08/25/20 Carlos Livingston MD NO INFO AVAILABLE Assigned PCP 08/26/20 08/31/20 Trina Carbajal PA-C [address] [place] [address] Assigned PCP 09/01/20 12/07/20 Carlos Livingston MD NO INFO AVAILABLE Assigned Endocrinology Provider 12/20/20 12/18/22 Carlos Livingston MD NO INFO AVAILABLE Assigned PCP 12/08/20 12/19/20 Trina Carbajal PA-C [address] [place] [address] Assigned PCP 12/20/20 04/28/24 Mari Funes, JERRY Personal Advocate & Liaison (PAL) Nurse 01/24/21 06/12/21 Jc Zavala MD [facility] [address] [place] [address] Hematology & Oncology 08/07/21 Barbi Manzo, JERRY Personal Advocate & Liaison (PAL) Family Medicine 12/24/21 07/08/23 [place] [address] [place] [address] Assigned Musculoskeletal Provider 04/04/22 08/19/23 Cristofer Michelle MD [address] [place] [address] Gastroenterology 07/28/22 Vivien Blanchard MD [address] [place] [address] Urology 07/28/22 Sapna Hernandez MD [address] [place] [address] Assigned Nephrology Provider 07/11/22 09/25/22 Vivien Blanchard MD [address] [place] [address] Assigned Surgical Provider 07/25/22 06/30/23 Virgie Lobato PA-C [address] [place] [address] Assigned Nephrology Provider 09/26/22 03/28/24 Teetee Velazquez PA-C [address] [place] [address] Physician Internal Audit Manager 05/11/23 Teetee Velazquez PA-C [address] [place] [address] Assigned Surgical Provider 07/01/23 Cora Shah RN Personal Advocate & Liaison (PAL) Nurse 07/09/23 09/29/23 [place] [address] [address] [place] [address] Assigned Musculoskeletal Provider 08/20/23 Cristal Cooper, RN Lead Timber Killer Primary Care - CC 04/27/2404/08 Shannon Rowland PA-C [address] [place] [phone] Assigned PCP 04/29/24 05/28/24 Lanie Foster, RD, LD [address] [place] [place] [address] Registered Dietitian Nutrition 05/15/24 [place] [address] [place] [address] Assigned PCP 05/29/24 Melonie Caro [facility] [address] [place] [address] Pharmacist Pharmacist 06/05/24 Federico Linda MD [address] [facility] [address] [place] [address] Cardiovascular Disease 06/13/24 Melonie Caro [facility] [address] [place] [address] Assigned MTM Pharmacist 06/29/24 Virgie Lobato PA-C [address] [place] [address] Assigned Nephrology Provider 07/30/24 Barry Ybarra MD [address] [place] [address] Hospitalist Infectious Diseases 08/31/24 Barry Ybarra MD [address] [place] [address] Assigned Infectious Disease Provider 10/27/24 documented as of this encounter
--- OUTSIDE RECORDS SUMMARY | 2024-11-12 17:26 | XMS_ITS | Encounter Summary ---
Author Organization [facility] Address [address] [place] [address] Care Team Providers Care Loss Prevention Guard Name Role Phone Tyrell Ruiz MD Primary Care Provider Sigifredo Segal MD Primary Care Provider [phone] No Ref-Primary, Physician Primary Care Provider Tyrell Ruiz MD Primary Care Provider [phone] Ref-Primary, Physician Primary Care Provider Sheryl Stringer RD Unavailable [phone] Tyrell Ruiz MD Primary Care Provider [phone] Sheryl Jaimes MD Primary Care Provider Unavailab Tyrell Morris MD Unavailable [phone] [facility] Primary Care Provider No Ref-Primary, Physician Primary Care Provider Tyrell Ruiz MD Unavailable [phone] Ruth Ann Munoz MD Primary Care Prov ider RuthA nn Munoz MD Unavailable + Tyrell Ruiz MD Primary Care Provider Ruth Ann Munoz MD Unavailable + Tyrell Ruiz MD Unavailable [phone] Tyrell Ruiz MD Unavailable [phone] Mari Funes RN Unavailable Unavailable Ruth Ann Munoz MD Unavailable + Trina Carbajal PA-C Unavailable [phone] Federico Linda MD Unavailable [phone] Trina Carbajal PA-C Primary Care Provider [phone] Connie Blackwell MD Unavailable [phone] Ruth Ann Munoz MD Unavailable + Carlos Livingston MD Unavailable Jelena vailable Trina Carbajal PA-C Unavailable [phone] Carlos Livingston MD Unavailable Jelena vailable Carlos Livingston MD Unavailable Jelena vailable Trina Carbajal PA-C Unavailable [phone] Mari Funes RN Unavailable Unavailable Jc Zavala MD Unavailable [phone] Barbi Manzo RN Unavailable Unavailable Erasto Root MD Unavailable Cristofer Michelle MD Unavailable [phone] Vivien Blanchard MD Unavailable [phone] Sapna Hernandez MD Unavailable Vivien Blanchard MD Unavailable [phone] Virgie Lobato-C Unavailable [phone] Teetee Velazquez-C Unavailable [phone] Teetee Velazquez-C Unavailable Cora Shah RN Unavailable Brad Mayer Unavailable [phone] Mary Garcia MD Primary Care Provider [phone] Cristal Cooper RN Unavailable Shannon RowlandC Unavailable [phone], LD Unavailabl e Mary Garcia MD Unavailable Melonie Caro [facility] Unavailable Federico Linda MD Unavailable Melonie Caro [facility] Unavailable Virgie LobatoC Unavailable Barry Ybarra MD Unavailable Barry Ybarra MD Unavailable [phone] Encounter Details Date Type Department Care Team (Late st Contact Info) Description 05/09/2012 Office Visit-[facility] [address] [facility] [address] [place] [address] Liz Cooper E, [facility] [address] [facility] [address] [place] [id number] Social History Tobacco Use Types Packs/Day Years Used Date Smoking Tobacco: Never Alcohol Use Standard Drinks/Week Comments No 0 (1 standard drink = 0.6 oz pur e alcohol) Comments No Sex and Gender Information Value Date Recorded Sex Assigned at Female 07/18/2020 1:16 PM BEHAVIORAL SCIENCES INSTRUCTOR Legal Sex Female 3:23 AM BEHAVIORAL SCIENCES INSTRUCTOR Gender Identity Female 07/18/2020 1:16 PM BEHAVIORAL SCIENCES INSTRUCTOR Sexual Orientation Straight 07/18/2020 1: 16 PM BEHAVIORAL SCIENCES INSTRUCTOR 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 [id number] DATE: 05/09/2012 RODGER LIVEELLA DATE OF : 1940 AGE: [age] years old Referring Physician: TYRELL RUIZ Referring Clinic: [facility] CURRENT DIAGNOSES 1. - CAD, 414.00 2. - Chest Pain Precordial, 786.51 3. Other Chest Pain, 786.59 4. Abnormal test-Abnormal Persantine Nuclear Study, 794.30 ALLERGIES [...] mg tablet, 1 p.o. daily CHIEF COMPLAINTS Medication check HISTORY OF PRESENT ILLNESS: This is a delightful 72-year-old female who presents to the [facility] today for a follow-up visit. She is a patient of Dr. Chambers. She is seen in our clinic for a past medical history of: 1. Coronary artery disease. 2. Hypertension. 3. Diabetes. 4. Hyperlipidemia. Nova has a history of treated hypertension and diabetes. She developed some chest pain and underwent a stress test, which was abnormal, showing some anterior ischemia. This led to an elective coronary angiography, and she was found to have a 90% mid LAD lesion. This was successfully treated with a 3.0 x 12 mm drug-eluting stent, reestablishing good flow with 0% residual stenosis. She was also noted to have 20% CLAUDIA disease and 10% left main disease. She is to remain on Plavix for one full yearwithout interruption. She returns today for reassessment. Nova tells me she is doing well. She denies any chest discomfort, neck, arm or jaw pain with activity or at rest. She is not short of breath. She states her energy is somewhat poor, and she has some positional lightheadedness. Overall, she is doing well. She is asking about cardiac rehab, as she has not started this program yet. She denies orthopnea, paroxysmal nocturnal dyspnea or peripheral edema. She denies any palpitations or near syncope. Her blood pressure today is 98/62. Heart rate of 61 beats/minute. Her lungs are clear. Right femoral pulse is palpable, without audible bruit. Distal DP and PT palpable bilaterally. There is no edema. Further review of systems and physical exam are as noted below. PAST HISTORY Past Medical [...] no regular exercise; REVIEW OF SYSTEMS GENERAL fatigue, Breathing has gotten better - still does not have any energy INTEGUMENTARY denies any change in hair or nails, rashes, or skin lesions. EYES wears eye glasses/contact lenses EARS, NOSE, THROAT, MOUTH denies any hearing loss, epistaxis, hoarseness or difficulty speaking. RESPIRATORY dyspnea, has gotten better, cough, has had a cold and strep CARDIOVASCULAR light headedness - with standing, negative [...] lymphadenopathy. PHYSICAL EXAMINATION VITAL SIGNS: Blood Pressure: 98/62Sitting, Right arm, large cuff Pulse- 61.00/min. Weight- 170.70 lbs. Height- 64.00 BMI Measurement: 29 CONSTITUTIONAL cooperative, alert and [...] no bruits auscultated. EXTREMITIES & BACK no clubbing, cyanosis or edema NEUROLOGICAL no gross motor deficits noted, affect appropriate, oriented to time, person and place. MEDICATIONS UPDATED/STARTED TODAY: lisinopril 20 mg tablet, 1 p.o. daily, #90 (Ninety) metoprolol tartrate 25 mg tablet, 1 p.o. twice daily, #0 (Zero) Plavix 75 mg tablet, 1 p.o. daily, #30 (Thirty) MEDICATIONS REFILLED/STOPPED TODAY: lisinopril-hydrochlorothiazide 20-25 mg tablet 1 p.o. daily #0 (Zero) Physician Order and metoprolol tartrate 25 mg tablet 1 tab po BID #60 (Sixty) Directions Changed-No Abbrvs IMPRESSIONS/PLAN IMPRESSION/PLAN: 1. Coronary artery disease. Recent abnormal stress test was performed due to chest pain. She was found to have a 90% lesion in her mid LAD, which was successfully treated with a drug-eluting stent. She has minimal CLAUDIA and left main disease. She is aware to remain on Plavix for one full year without interruption. She is wondering if she is taking this medication twice daily. I printed up her medication list, and she will be calling our office if it differs from what she is taking at home. She isto remain on beta-blockade, INDERJIT inhibitor therapy and aspirin. 2. Hypertension. Blood pressure on the low side. She was noted to have some mild renal insufficiency and some positional lightheadedness; therefore, I have elected to discontinue her hydrochlorothiazide portion of her lisinopril. We will have her return in one month for a BMP and reassessment. 3. Hyperlipidemia. She is on statin therapy. A lipid panel performed by her primary care physician in July of this year shows an LDL level of 85. She is on low- dose statin therapy. I would like to repeat a lipid panel at her next office [facility] and consider increasing her simvastatin dose. Her LDL goal is less than 70. 4. Diabetes. Thank you for allowing me to participate in this patient's care. We will have her return as planned. She is to notify our clinic with chest pain, shortness of breath, lightheadedness, dizziness or other concerns she may have during the interim. TODAYS ORDERS 1. BMP 1 month 2. Return Visit 1 month Liz Cooper NFrederickP. documented in this encounter Plan of Treatment Upcoming Encounters Date Type Department Care Team (Late st Contact Info) Description 11/16/2024 1:00 PM CDT Allied Health/Nurse Visit [facility] [address] [phone] Lucero Britt PA-C 500 [place], [place] 10[address] 11/16/2024 2:45 PM CDT Office Visit [facility] [address] [phone] Vivien Blanchard MD [address] [facility] [address] [place], [place] [address] 11/20/2024 3:30 PM CDT Office Visit [address] [phone] Mary Garcia MD [address] [place] [address] 11/22/2024 9:15 AM CDT Office Visit [facility] [address] [facility] [address] [place] [phone] Federico Linda MD [address] [facility] [address] [place] [address] 11/30/2024 10:30 AM CDT Lab [facility] [address] [place] [phone] 12/06/2024 10:10 AM CDT Office Visit [facility] [address] [facility] 200 [place] [phone] Virgie Lobato, PA-C [address] [place] [address] 12/28/2024 11:00 AM CDT Office Visit [facility] [address] [facility] [address] [place] [address] Barry Ybarra MD [address] [facility] 200 [place] [address] 01/26/2025 11:30 AM CDT Office Visit [facility] [address] [place] [address] [place] [address] [place] [address] documented as of this encounter Visit Diagnoses Not on filedocumented in this encounter Additional Health Concerns Infection Onset Date Last Indicated Resolved Time Rule Out COVID-19 03/08/2021 03/08/2021 03/09/2021 1:42 AM CDT Rule Out C-difficile 03/10/2021 03/10/2021 021 5:50 PM CDT Rule Out COVID-19 2021 2021 04/25/2021 12:41 PM BEHAVIORAL SCIENCES INSTRUCTOR Rule Out COVID-19 06/14/2022 06/14/2022 06/14/2022 11:30 AM BEHAVIORAL SCIENCES INSTRUCTOR Rule Out COVID-19 07/03/2022 07/03/2022 07/04/2022 12:27 AM BEHAVIORAL SCIENCES INSTRUCTOR Rule Out COVID-19 04/01/2024 04/01/2024 04/01/2024 10:07 PM CDT ESBL 07/05/2024 08/24/2024 Rule Out COVID-19 07/16/2024 07/16/2024 07/16/2024 11:04 PM BEHAVIORAL SCIENCES INSTRUCTOR Rule Out COVID-19 09/01/2024 09/01/2024 09/01/2024 2:05 AM CDT Rule Out COVID-19 09/21/2024 09/21/2024 09/21/2024 3:25 PM CDT documented as of this encounter Care Teams Loss Prevention Guard Relationship Specialty Start Date End Date Tyrell Ruiz MD PCP - General Family Practice 08/25/11 07/14/16 Sigifredo Segal MD [facility] [id number] [place] [phone] PCP - General Family Practice 07/15/16 10/13/16 No Ref-Primary, Physician PCP - General 10/14/16 03/14/17 Tyrell Ruiz MD PCP - General Family Practice 03/15/17 11/02/17 No Ref-Primary, Physician PCP - General 11/03/17 12/07/17 Tyrell Ruiz MD PCP - General Family Practice 12/08/17 07/07/18 Sheryl Jaimes MD [place] [address] [place] [address] PCP - General Family Practice 07/08/18 08/02/18 Tyrell Ruiz MD [address] [place] [address] PCP - Assigned PCP 07/10/18 08/09/18 [facility] [address] [place], [place] [phone] PCP - General 08/03/18 08/04/18 No Ref-Primary, Physician PCP - General 08/05/18 08/30/18 [place] [address] [place], [place] [phone] PCP - General Family Practice 08/31/18 04/13/19 Tyrell Ruiz MD [facility] [address] [facility] [address] [place] [address] PCP - General Family Practice 04/14/19 05/18/20 Trina Carbajal, JAMES-C [address] [facility] [address] [place] [address] PCP - General Family Medicine 05/19/20 04/10/24 [place] [address] [place] [address] PCP - General Family Medicine 04/11/[address] [place] [address] [place] [address] Environmental Change Analyst Dietitian, Registered 11/03/17 Tyrell Ruiz MD [address] [place] [address] Assigned PCP 04/24/18 12/24/18 Ruth Ann Munoz MD [place] [address] [place] [address] Assigned PCP 12/25/18 04/22/19 Ruth Ann Munoz MD [place] [address] [place] [address] Assigned PCP 04/30/19 05/27/19 Tyrell Ruiz MD [address] [place] [address] Assigned PCP 04/23/19 04/29/19 Tyrell Ruiz MD [address] [place] [address] Assigned PCP 05/28/19 07/22/19 Mari Funes, JERRY Personal Advocate & Liaison (PAL) 07/27/19 07/30/19 Ruth Ann Munoz MD [place] [address] [place] [address] Assigned PCP 07/23/19 08/12/19 Trina Carbajal, GIUSEPPEC [address] [place] [address] Assigned PCP 08/13/19 07/27/20 Federico Linda MD [address] [place] [address] Assigned Heart and Vascular Provider 03/29/20 Connie Blackwell MD [address] [place], [place] [address] Assigned Endocrinology Provider 07/14/20 12/19/20 Ruth Ann Munoz MD [place] [address] [facility] 207 [place] [address] Assigned PCP 07/28/20 08/25/20 Carlos Livingston MD NO INFO AVAILABLE Assigned PCP 08/26/20 08/31/20 Trina Carbajal PA-C [address] [place] [address] Assigned PCP 09/01/20 12/07/20 Carlos Livingston MD NO INFO AVAILABLE Assigned Endocrinology Provider 12/20/20 12/18/22 Carlos Livingston MD NO INFO AVAILABLE Assigned PCP 12/08/20 12/19/20 Trina Carbajal PA-C [address] [place] [address] Assigned PCP 12/20/20 04/28/24 Mari Funes RN Personal Advocate & Liaison (PAL) Nurse 01/24/21 06/12/[address] [facility] [address] [place] [address] Hematology & Oncology 08/07/21 Barbi Manzo, RN Personal Advocate & Liaison (PAL) Family Medicine 12/24/21 07/08/23 [place] [address] [place] [address] Assigned Musculoskeletal Provider 04/04/22 08/19/23 Cristofer Michelle MD [address] [place] [address] Gastroenterology 07/28/22 Vivien Blanchard MD [address] [place] [address] 394 [place] [address] Urology 07/28/22 Sapna Hernandez MD [address] [place] [address] 394 [place] [address] Assigned Nephrology Provider 07/11/22 09/25/22 Vivien Blanchard MD [address] [place] [address] 394 [place] [address] Assigned Surgical Provider 07/25/22 06/30/23 Virgie Lobato PA-C [address] [place] [address] 167605 Assigned Nephrology Provider 09/26/22 03/28/24 Teetee Velazquez PA-C [address] [place] [address] Physician Magnet Maker 05/11/23 Teetee Velazquez PAAnthonyC [address] [place] [address] Assigned Surgical Provider 07/01/23 Cora Shah, JERRY Personal Advocate & Liaison (PAL) Nurse 07/09/23 09/29/23 [place] [address] [address]A [address] [address] Assigned Musculoskeletal Provider 08/20/23 Cristal Cooper RN Lead [facility] 04/27/2404/08 Shannon Rowland PA-C [address] [place] [address] Assigned PCP 04/29/24 05/28/24 Lanie Foster, RD, LD [address] [place], [place] [address] Registered Dietitian Nutrition 05/15/24 [place] [address] [place] [address] Assigned PCP 05/29/24 Melonie Caro [facility] [address] [place] [address] Pharmacist Pharmacist 06/05/24 Federico Linda MD [address] [place] [address] Cardiovascular Disease 06/13/24 Melonie Caro [facility] [address] [place] [address] Assigned MTM Pharmacist 06/29/24 Virgie Lobato, PAAnthonyC [address] [place] [address] Assigned Nephrology Provider 07/30/24 Barry Ybarra MD [address] [place] [address] Hospitalist Infectious Diseases 08/31/24 Barry Ybarra MD [address] [place] [address] Assigned Infectious Disease Provider 10/27/24 documented as of this encounter
--- OUTSIDE RECORDS SUMMARY | 2024-11-12 17:26 | XMS_ITS | Encounter Summary ---
Author Organization [facility] Address [address] [place] [address] Care Team Providers Care Bolt Maker Name Role Phone Sheryl Stringer RD Unavailable [phone] Federico Linda MD Unavailable [phone] Jc Zavala MD Unavailable [phone] Cristofer Michelle MD Unavailable Vivien Blanchard MD Unavailable [phone] Teetee Velazquez-Javi Unavailable Teetee Velazquez PA-C Unavailable Brad Mayer DO Unavailable [phone] Mary Garcia MD Primary Care Provider Lanie Foster RD, LD Unavailabl e Mary Garcia MD Unavailable Melonie Caro [facility] Unavailable Federico Linda MD Unavailable [phone] VaniaMelonie duarte [facility] Unavailable [phone] Virgie Lobato PA-C Unavailable [phone] Barry Ybarra MD Unavailable [phone] Barry Ybarra MD Unavailable [phone] Encounter Details Date Type Department Care Team (Late st Contact Info) Description 09/13/2024 MyC Medical Advice [facility] [place] [address] [facility] [address] [place] [address] Vivien Blanchard MD [address] [facility] 394 [place] [address] Social History Tobacco Use Types [...] in an abandoned building, in an overnight detention, or couch-surfing.) Yes 09/01/2024 Are you worried [...] Sex Assigned at Female 07/18/2020 1:16 PM DENTAL CLAIMS PROCESSOR Legal Sex Female 3:23 AM DENTAL CLAIMS PROCESSOR Gender Identity Female 07/18/2020 1:16 PM DENTAL CLAIMS PROCESSOR Sexual Orientation Straight 07/18/2020 1: 16 PM DENTAL CLAIMS PROCESSOR 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 file Not on file documented as of this encounter Plan of Treatment Upcoming Encounters Date Type Department Care Team (Late st Contact Info) Description 11/16/2024 1:00 PM CDT Allied Health/Nurse Visit [facility] [address] [address] Lucero Britt PA-C 500 [place], [place] [address] 11/16/2024 2:45 PM CDT Office Visit [facility] Urology [address] [address] Vivien Blanchard MD [address] [facility] 394 [place] [address] 11/20/2024 3:30 PM CDT Office Visit [facility] [address] [place] [phone] [place] [address] [place], [place] [address] 11/22/2024 9:15 AM CDT Office Visit [facility] Heart [facility] [address] [facility] [address] [place] [phone] Federico Linda MD [address] [facility] [address] [place], [place] [address] 11/30/2024 10:30 AM CDT Lab [facility] [address] [place] [address] 12/06/2024 10:10 AM CDT Office Visit [facility] [address] [facility] 200 [place] [phone] Virgie Lobato, PA-C [address] [place] [address] 12/28/2024 11:00 AM CDT Office Visit [address] [phone] Barry Ybarra MD [address] [place] [address] 01/26/2025 11:30 AM CDT Office Visit [facility] [address] [place] [phone] [place] [address] [place], [place] [phone] documented as of this encounter Goals Goal Patient Goal Type Associated Problems Recent Progress Patient-Stated? Author Problem Solving General On track( 019 9:24 AM DENTAL CLAIMS PROCESSOR) Yes Sheryl Stringer, ELI Note: My Goal: [...] Total Score: 3 05/02/20 24 1:39 PM DENTAL CLAIMS PROCESSOR documented as of this encounter Care Teams Bolt Maker Relationship Specialty [place] [address] [place] [address] PCP - General Family Medicine 04/11/[address] [place] [address] V Belt Finisher Dietitian, Registered 11/03/17 Federico Linda MD [address] [facility] [address] [place] [address] Assigned Heart and Vascular Provider 03/29/20 Jc Zavala MD [facility] [address] [place], [place] [address] Hematology & Oncology 08/07/21 Cristofer Michelle MD [address] [place], [place] [address]B [address] [place] [address] Gastroenterology 07/28/22 Vivien Blanchard MD [address] [place] [address] 394 [place], [place] 4867[address] Urology 07/28/22 Teetee Velazquez PA-C [address] [place] [address] 486[address] Physician Quantitative Manager 05/11/23 Teetee Velazquez PA-C [address] [place] [address] 676175 Assigned Surgical Provider 07/01/23 [place] [address] [place] [facility] 300 [place], [place] 3[address]87 Assigned Musculoskeletal Provider 08/20/23 Lanie Foster, RD, LD [address] [place] [address] Registered Dietitian Nutrition 05/15/24 [place] [address] [place] [address] Assigned PCP 05/29/24 Melonie Caro Gin [address] [place], [place] [address] Pharmacist Pharmacist 06/05/24 Federico Linda MD [address] [facility] [address] [place] [address] Cardiovascular Disease 06/13/24 Melonie Caro G[place] [address] [place] [address] Assigned MTM Pharmacist 06/29/24 Virgie Lobato PA-C [address] [place] [address] Assigned Nephrology Provider 07/30/24 Barry Ybarra MD [address] [place] [address] Hospitalist Infectious Diseases 08/31/24 Barry Ybarra MD [address] [place] [address] Assigned Infectious Disease Provider 10/27/24 documented as of this encounter
--- OUTSIDE RECORDS SUMMARY | 2024-11-12 17:26 | XMS_ITS | Encounter Summary ---
Author Organization [place] Address [address] [place] [address] Care Team Providers Care Supervisor Metalizing Name Role Phone Axel Helm MD Primary Care Provider [phone] [facility] Primary Care Provider + Flynn Ruiz MD Primary Care Provider Sigifredo Segal MD Primary Care Provider [phone] No Ref-Primary, Physician Primary Care Provider Flynn Ruiz MD Primary Care Provider [phone] No Ref-Primary, Physician Primary Care Provider Sheryl Stringer RD Unavailable [phone] Flynn Ruiz MD Primary Care Provider [phone] Sheryl Jaimes MD Primary Care Provider Unavailab le Flynn Ruiz MD Unavailable [phone] [facility] Primary Care Provider No Ref-Primary, Physician [...] [phone] Trina Carbajal-C Primary Care Provider [phone] Connie Blackwell MD Unavailable [phone] Ruth Ann Munoz MD Unavailable + Carlos Livingston MD Unavailable Jelena vailable Trina Carbajal-C Unavailable [phone] Carlos Livingston MD Unavailable Jelena vailable Carlos Livingston MD Unavailable Jelena vailable Trina Carbajal-C Unavailable [phone] Mari Funes RN Unavailable Unavailable Jc Zavala MD Unavailable [phone] Barbi Manzo RN Unavailable Unavailable Erasto Root MD Unavailable Cristofer Michelle MD Unavailable [phone] Vivien Blanchard MD Unavailable [phone] Sapna Hernandez MD Unavailable Vivien Blanchard MD Unavailable Virgie Lobato PA-C Unavailable [phone] Teetee Velazquez PA-C Unavailable [phone] Teetee Velazquez PA-C Unavailable [phone] Cora Shah RN Unavailable [phone] Brad Mayer DO Unavailable [phone] Mary Garcia MD Primary Care Provider [phone] Cristal Cooper RN Unavailable Shannon Rowland PA-C Unavailable [phone], LD Unavailabl e Mary Garcia MD Unavailable Melonie Caro [facility] Unavailable Federico Linda MD Unavailable Melonie Caro [facility] Unavailable [phone] Virgie viramontes PA-C Unavailable [phone] Barry Ybarra MD Unavailable [phone] Barry Ybarra MD Unavailable [phone] Encounter Details Date Type Department Care Team (Late st Contact Info) Description 04/07/2010 [facility] Medical Advice [facility] [address] [place] [address] Axel Helm MD [address] [place] [address] Social History Tobacco Use Types Packs/Day Years Used Date Smoking Tobacco: Never Alcohol Use Standard Drinks/Week Comments No 0 (1 standard drink = 0.6 oz pur e alcohol) Comments No Sex and Gender Information Value Date Recorded Sex Assigned at Female 07/18/2020 1:16 PM QUARTER INSPECTOR Legal Sex Female 3:23 AM QUARTER INSPECTOR Gender Identity Female 07/18/2020 1:16 PM QUARTER INSPECTOR Sexual Orientation Straight 07/18/2020 1: 16 PM QUARTER INSPECTOR 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 Not on file documented as of this encounter Plan of Treatment Upcoming Encounters Date Type Department Care Team (Late st Contact Info) Description 11/16/2024 1:00 PM CDT Allied Health/Nurse Visit [facility] Urology [address] [place] [phone] Lucero Britt PA-C 500 [place], [place] [address] 11/16/2024 2:45 PM CDT Office Visit [facility]rology [address] [phone] Vivien Blanchard MD 420 [facility] 394 [place], [place] [phone] 11/20/2024 3:30 PM CDT Office Visit [facility] [address] [place] [phone] [place] [address] [place] [address] 11/22/2024 9:15 AM CDT Office Visit [facility] Heart [facility] [address] [facility] [address] [place] [phone] Federico Linda MD 0086 [facility] [address] [place], [place] [address] 11/30/2024 10:30 AM CDT Lab [facility] [address] [place] [phone] 12/06/2024 10:10 AM CDT Office Visit [facility] 6525 [facility] 200 [place] [phone] Virgie Lobato PA-C [address] [place] [address] 12/28/2024 11:00 AM CDT Office Visit [facility] 2945 [facility] 200 [place] [address] [place] [address] [place] [address] 200 [place] [address] 01/26/2025 11:30 AM CDT Office Visit [facility] [address] [place] [address] [place] [id number] [place] [address] documented as of this encounter Visit Diagnoses Not on filedocumented in this encounter Additional Health Concerns Infection Onset Date Last Indicated Resolved Time Rule Out COVID-19 03/08/2021 03/08/2021 03/09/2021 1:42 AM CDT Rule Out C-difficile 03/10/2021 03/10/2021 5:50 PM CDT Rule Out COVID-19 2021 2021 04/25/2021 12:41 PM QUARTER INSPECTOR Rule Out COVID-19 06/14/2022 06/14/2022 06/14/2022 11:30 AM QUARTER INSPECTOR Rule Out COVID-19 07/03/2022 07/03/2022 07/04/2022 12:27 AM QUARTER INSPECTOR Rule Out COVID-19 04/01/2024 04/01/2024 04/01/2024 10:07 PM CDT ESBL 07/05/2024 08/24/2024 Rule Out COVID-19 07/16/2024 07/16/202407/1607/16/2024 11:04 PM QUARTER INSPECTOR Rule Out COVID-19 09/01/2024 09/01/2024 09/01/2024 2:05 AM CDT Rule Out COVID-19 09/21/2024 09/21/2024 09/21/2024 3:25 PM CDT documented as of this encounter Care Teams Supervisor Metalizing Relationship Specialty Start Date End Date Axel Helm MD [address] [facility] 160 [place] [address] PCP - General 07/21/02 05/11/11 [facility], [facility] PCP - General 05/12/11 08/24/11 Flynn Ruiz MD PCP - General Family Practice 08/25/11 07/14/16 Sigifredo Segal MD [facility] [address] [facility] [place] [place] [phone] PCP - General Family Practice 07/15/16 10/13/16 No Ref-Primary, Physician PCP - General 10/14/16 03/14/17 Flynn Ruiz MD PCP - General Family Practice 03/15/17 11/02/17 No Ref-Primary, Physician PCP - General 11/03/17 12/07/17 Flynn Ruiz MD PCP - General Family Practice 12/08/17 07/07/18 Sheryl Jaimes MD [address] [place] [address] PCP - General Family Practice 07/08/18 08/02/18 Flynn Ruiz MD [address] [place] [address] PCP - Assigned PCP 07/10/18 08/09/18 [facility] [address] [place], [place] [phone] PCP - General 08/03/18 08/04/18 No Ref-Primary, Physician PCP - General 08/05/18 08/30/18 [place] [address] [place], [place] [phone] PCP - General Family Practice 08/31/18 04/13/19 Flynn Ruiz MD [place] [address] [facility] 207 [place] [address] PCP - General Family Practice 04/14/19 05/18/20 Trina Carbajal PA-C 6405 [facility] [address] [place] [address] PCP - General Family Medicine 05/19/20 04/10/24 [place] [address] [place] [address] PCP - General Family Medicine 04/11/[address] [facility] 1440 [facility] [place] [address] Substitute Bus Driver Dietitian, Registered 11/03/17 Flynn Ruiz MD [address] [place] [address] Assigned PCP 04/24/18 12/24/18 Ruth Ann Munoz MD [place] [address] [place], [place] [address] Assigned PCP 12/25/18 04/22/19 Ruth Ann Munoz MD [place] [address] [place], [place] [address] Assigned PCP 04/30/19 05/27/19 Flynn Ruiz MD [address] [place] [address] Assigned PCP 04/23/19 04/29/19 Flynn Ruiz MD [address] [place] [address] Assigned PCP 05/28/19 07/22/19 Mari Funes, JERRY Personal Advocate & Liaison (PAL) 07/27/19 07/30/19 Ruth Ann Munoz MD [place] [address] [place] [address] Assigned PCP 07/23/19 08/12/19 Trina Carbajal PA-C [address] [place] [address] Assigned PCP 08/13/19 07/27/20 Federico Linda MD [address] [place] [address] Assigned Heart and Vascular Provider 03/29/20 Connie Blackwell MD [address] [place] [address] Assigned Endocrinology Provider 07/14/20 12/19/20 Ruth Ann Munoz MD [place] [address] [place] [address] Assigned PCP 07/28/20 08/25/20 Carlos Livingston MD NO INFO AVAILABLE Assigned PCP 08/26/20 08/31/20 Trina Carbajal PA-C [address] [place] [address] Assigned PCP 09/01/20 12/07/20 Carlos Livingston MD NO INFO AVAILABLE Assigned Endocrinology Provider 12/20/20 12/18/22 Carlos Livingston MD NO INFO AVAILABLE Assigned PCP 12/08/20 12/19/20 Trina Carbajal PA-C [address] [place] [address] Assigned PCP 12/20/20 04/28/24 Mari Funes, JERRY Personal Advocate & Liaison (PAL) Nurse 01/24/21 06/12/21 Jc Zavala MD [facility] [address] [place] [address] Hematology & Oncology 08/07/21 Barbi Manzo, RN Personal Advocate & Liaison (PAL) Family Medicine 12/24/21 07/08/23 [place] [address] [place] [address] [address] Assigned Musculoskeletal Provider 04/04/22 08/19/23 Cristofer Michelle MD [address] [place] [address] [phone] Gastroenterology 07/28/22 Vivien Blanchard MD [address] 042735 Urology 07/28/22 Sapna Hernandez MD [address] 150[address] Assigned Nephrology Provider 07/11/22 09/25/22 Vivien Blanchard MD [address] [place] [address] 901255 Assigned Surgical Provider 07/25/22 06/30/23 Virgie Lobato PA-C 909 [place] [address] Assigned Nephrology Provider 09/26/22 03/28/24 Teetee Velazquez PA-C 909 [place], [place] 164315 Physician Benzol Still Operator 05/11/23 Teetee Velazquez PAAnthonyC 909 [place] [address] Assigned Surgical Provider 07/01/23 Cora Shah, JERRY Personal Advocate & Liaison (PAL) Nurse 07/09/23 09/29/23 [place] [address] [facility] 300 [place], [place] [address] Assigned Musculoskeletal Provider 08/20/23 Cristal Cooper RN Lead Central Aisle Cashier Primary Care - CC 04/27/2404/08 Shannon Rowland PA-C [address] [place] [phone] Assigned PCP 04/29/24 05/28/24 Lanie Foster, RD, LD [address] [place] [address] Registered Dietitian Nutrition 05/15/24 [place] [address] [place] [address] Assigned PCP 05/29/24 Melonie Caro [facility] [address] [place] [place], [place] [phone] Pharmacist Pharmacist 06/05/24 Federico Linda MD [address] [facility] [address] [place] [address] Cardiovascular Disease 06/13/24 Melonie Caro RPH [address] [place] [place], [place] 2599[address] Assigned MTM Pharmacist 06/29/24 Virgie Lobato, PAAnthonyC [address] [place] [address]97995 Assigned Nephrology Provider 07/30/24 Barry Ybarra MD [address] [place] [address] [id number] Hospitalist Infectious Diseases 08/31/24 Barry Ybarra MD [address] [place] [address] [phone] Assigned Infectious Disease Provider 10/27/24 documented as of this encounter
--- OUTSIDE RECORDS SUMMARY | 2024-11-12 17:26 | XMS_ITS | Encounter Summary ---
Author Organization [place] Address [address] [place] [address] Care Team Providers Care Patient Flow Coordinator Name Role Phone Sheryl Stringer RD Unavailable [phone] Federico Linda MD Unavailable [phone] Jc Zavala MD Unavailable [phone] Cristofer Michelle MD Unavailable [phone] Vivien Blanchard MD Unavailable Teetee Velazquez-Javi Unavailable Teetee Velzaquez PA-C Unavailable Brad Mayer DO Unavailable [phone] Mary Garcia MD Primary Care Provider [phone], LD Unavailabl e Mary Garcia MD Unavailable Melonie Caro [facility] Unavailable Federico Linda MD Unavailable [phone] VaniaMelonie duarte [facility] Unavailable [phone] Virgie Lobato PA-C Unavailable [phone] Barry Ybarra MD Unavailable [phone] Barry Ybarra MD Unavailable [phone] Encounter Details Date Type Department Care Team (Late st Contact Info) Description 09/07/2024 MyC Medical Advice [facility] Pharm D Project [address] [place] [address] Diana Giraldo Social History Tobacco Use Types Packs/Day Years [...] Sex Assigned at Female 07/18/2020 1:16 PM BERRY PLANTER Legal Sex Female 3:23 AM BERRY PLANTER Gender Identity Female 07/18/2020 1:16 PM BERRY PLANTER Sexual Orientation Straight 07/18/2020 1: 16 PM BERRY PLANTER 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 Not on file documented as of this encounter Plan of Treatment Upcoming Encounters Date Type Department Care Team (Late st Contact Info) Description 11/16/2024 1:00 PM CDT Allied Health/Nurse Visit [facility] Urology [address] [address] Lucero Britt PA-C 500 [place], [place] [address] 11/16/2024 2:45 PM CDT Office Visit [facility] Urology [address] [address] Vivien Blanchard MD 420 [facility] 394 [place] [address] 11/20/2024 3:30 PM CDT Office Visit [address] [address] [place] [address] [place] [address] 11/22/2024 9:15 AM CDT Office Visit [facility] Heart [facility] [address] [facility] [address] [place] [address] Federico Linda MD 6405 [facility] [address] [place] [address] 11/30/2024 10:30 AM CDT Lab [facility] [address] [place] [phone] 12/06/2024 10:10 AM CDT Office Visit [facility] 6525 [facility] 200 [place] [address] Virgie Lobato, PA-C [address] [place] [address] 12/28/2024 11:00 AM CDT Office Visit [facility] 2945 [facility] 200 [place] [address] Barry Ybarra MD [address] [address] 01/26/2025 11:30 AM CDT Office Visit [facility] [address] [place] [address] [place] [address] [place] [address] documented as of this encounter Goals Goal Patient Goal Type Associated Problems Recent Progress Patient-Stated? Author Problem Solving General On track( 019 9:24 AM BERRY PLANTER) Yes Sheryl Stringer RD Note: My Goal: [...] Total Score: 3 05/02/20 24 1:39 PM BERRY PLANTER documented as of this encounter Care Teams Patient Flow Coordinator Relationship Specialty [place] [address] [place] [address] PCP - General Family Medicine 04/11/[address] [place] [id number] Medical Certification Specialist Dietitian, Registered 11/03/17 Federico Linda MD 6405 [facility] [address] [place], [place] [address] Assigned Heart and Vascular Provider 03/29/20 Jc Zavala MD [facility] [address] [place], [place] [address] Hematology & Oncology 08/07/21 Cristofer Michelle MD 516 [facility] [address] [place], [place] [address] Gastroenterology 07/28/22 Vivien Blanchard MD 420 [facility] 394 [place], [place] 7[address] Urology 07/28/22 Teetee Velazquez PA-C 909 [place] [address] Physician Bead Forming Machine Operator 05/11/23 Teetee Velazquez PA-C [address] [place] [address] Assigned Surgical Provider 07/01/23 [place] [address] [address] [address] Assigned Musculoskeletal Provider 08/20/23 Lanie Foster, RD, LD [address] [place] [address]055 Registered Dietitian Nutrition 05/15/24 [place] [address] [place] [address] Assigned PCP 05/29/24 Melonie Caro Gin [address] [place], [place] [address] Pharmacist Pharmacist 06/05/24 Federico Linda MD [address] [facility] [address] [place] 579845 Cardiovascular Disease 06/13/24 Melonie Caro RPH [address] [place], [place] [address] Assigned MTM Pharmacist 06/29/24 Virgie Lobato PA-C [address] [place] [address] Assigned Nephrology Provider 07/30/24 Barry Ybarra MD [address] [place] [address] Hospitalist Infectious Diseases 08/31/24 Barry Ybarra MD [address] [place] [address] Assigned Infectious Disease Provider 10/27/24 documented as of this encounter
--- OUTSIDE RECORDS SUMMARY | 2024-11-12 17:27 | XMS_ITS | Encounter Summary ---
Author Organization [facility] Address [address] [place] [address] Care Team Providers Care Master Hearth Technician Name Role Phone Sheryl Stringer ELI Unavailable Ruth Ann Munoz MD Primary Care Prov ider Ruth Ann Munoz MD Unavailable + Flynn Ruiz MD Primary Care Provider [phone] Ruth Ann Munoz MD Unavailable + Flynn Ruiz MD Unavailable [phone] Flynn Ruiz MD Unavailable [phone] Mari Funes RN Unavailable Unavailable Ruth Ann Munoz MD Unavailable + Trina Carbajal PA-C Unavailable [phone] Federico Linda MD Unavailable [phone] Solomon, Trina N PA-C Primary Care Provider [phone] Connie Blackwell MD Unavailable Ruth Ann Munoz MD Unavailable + Carlos Livingston MD Unavailable Jelena vailable Trina Carbajal PA-C Unavailable [phone] Carlos Livingston MD Unavailable Jelena vailable Carlos Livingston MD Unavailable Jelena vailable Trina Carbajal PA-C Unavailable [phone] Mari Funes RN Unavailable Unavailable Jc Zavala MD Unavailable [phone] Barbi Manzo RN Unavailable Unavailable Erasto Root MD Unavailable Cristofer Michelle MD Unavailable Vivien Blanchard MD Unavailable Sapna Hernandez MD Unavailable LoVivien williamson MD Unavailable Virgie Lobato PA-C Unavailable Teetee Velazquez PA-C Unavailable Teetee Velazquez PA-C Unavailable [phone] Cora Shah RN Unavailable [phone] Brad Mayer DO Unavailable [phone] Mary Garcia MD Primary Care Provider Cristal Cooper RN Unavailable Shannon Rowland PA-C Unavailable [phone], LD Unavailabl e Mayr Garcia MD Unavailable Melonie Caro [facility] Unavailable [phone] Federico Linda MD Unavailable [phone] Melonie Caro [facility] Unavailable [phone] Virgie Lobato PA-C Unavailable [phone] Barry Ybarra MD Unavailable [phone] Barry Ybarra MD Unavailable [phone] Encounter Details Date Type Department Care Team (Late st Contact Info) Description 03/08/2019 MyC Medical Advice [address] [phone] Rahel Chinchilla CMA Social History Tobacco Use Types Packs/Day Years Used Date Smoking Tobacco: Never Smokeless Tobacco: Never Alcohol Use Standard Drinks/Week Comments No 0 (1 standard drink = 0.6 oz pur e alcohol) PHQ-2 Answer Date Recorded PHQ-2 Score 2 06/21/2018 Comments No Sex and Gender Information Value Date Recorded Sex Assigned at Female 07/18/2020 1:16 PM SENIOR LINUX ADMINISTRATOR Legal Sex Female 3:23 AM SENIOR LINUX ADMINISTRATOR Gender Identity Female 07/18/2020 1:16 PM SENIOR LINUX ADMINISTRATOR Sexual Orientation Straight 07/18/2020 1: 16 PM SENIOR LINUX ADMINISTRATOR 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 Not on file documented as of this encounter Plan of Treatment Upcoming Encounters Date Type Department Care Team (Late st Contact Info) Description 11/16/2024 1:00 PM CDT Allied Health/Nurse Visit [facility] Urology [address] [address] Lucero Britt PA-C 500 [place], [place] 9[address]235 11/16/2024 2:45 PM CDT Office Visit [facility]rology [address] [address] Vivien Blanchard MD 420 [facility] 394 [place] [address] 11/20/2024 3:30 PM CDT Office Visit [facility] [address] [place] [phone] [place] [address] [place] [address] 11/22/2024 9:15 AM CDT Office Visit [facility] Heart [facility] [address] [facility] [address] [place] [phone] Federico Linda MD 6405 [facility] [address] [place], [place] [address] 11/30/2024 10:30 AM CDT Lab [facility] Laboratory [address] [place] [phone] 12/06/2024 10:10 AM CDT Office Visit [facility] 6525 [facility] 200 [place] [phone] Virgie Lobato, PA-C [address] [place] [address] 12/28/2024 11:00 AM CDT Office Visit [facility] [address] [place] [phone] Barry Ybarra MD [address] [place] [address] 200 [place] [address] 01/26/2025 11:30 AM CDT Office Visit [facility] [address] [place] [phone] [place] [address] [place], [place] [phone] documented as of this encounter Goals Goal Patient Goal Type Associated Problems Recent Progress Patient-Stated? Author Problem Solving General On track( 9:24 AM SENIOR LINUX ADMINISTRATOR) Yes Sheryl Stringer RD Note: My Goal: [...] Out COVID-19 2021 2021 04/25/2021 12:41 PM SENIOR LINUX ADMINISTRATOR Rule Out COVID-19 06/14/2022 06/14/2022 06/14/2022 11:30 AM SENIOR LINUX ADMINISTRATOR Rule Out COVID-19 07/03/2022 07/03/2022 07/04/2022 12:27 AM SENIOR LINUX ADMINISTRATOR Rule Out COVID-19 04/01/2024 04/01/2024 04/01/2024 10:07 PM CDT ESBL 07/05/2024 08/24/2024 Rule Out COVID-19 07/16/2024 07/16/2024 07/16/2024 11:04 PM SENIOR LINUX ADMINISTRATOR Rule Out COVID-19 09/01/2024 09/01/2024 09/01/2024 2:05 AM CDT Rule Out COVID-19 09/21/2024 09/21/2024 09/21/2024 3:25 PM CDT Assessment Noted Time PHQ-9 Depression Total Score: 6 08/09/19 19 8:45 AM SENIOR LINUX ADMINISTRATOR documented as of this encounter Care Teams Master Hearth Technician Relationship Specialty Start Date End Date Ruth Ann Munoz MD [facility] MICHELLE [address] [place] [address] [place] [address] PCP - General Family Practice 08/31/18 04/13/19 Flynn Ruiz MD [address]ISE [address] [place] [address] PCP - General Family Practice 04/14/19 05/18/20 Trina Carbajal PA-C 6[address] [facility] [address] [place], [place] 1232[address] PCP - General Family Medicine 05/19/20 04/10/24 [place] [address] [place] [address] PCP - General Family Medicine 04/11/[address] [place] [address] Analytics Director Dietitian, Registered 11/03/17 Ruth Ann Munoz MD ARISE [address] [place] [address] Assigned PCP 12/25/18 04/22/19 Ruth Ann Munoz MD [address]ISE [address] [place] [address] Assigned PCP 04/30/19 05/27/19 Flynn Ruiz MD [address] [place] [address] Assigned PCP 04/23/19 04/29/19 Flynn Ruiz MD [address] [place] [address] Assigned PCP 05/28/19 07/22/19 Mari Funes, JERRY Personal Advocate & Liaison (PAL) 07/27/19 07/30/19 Ruth Ann Munoz MD ARISE [address] [place] [address] Assigned PCP 07/23/19 08/12/19 Trina Carbajal PA-C [address] [place], [place] 407845 Assigned PCP 08/13/19 07/27/20 Federico Linda MD [address] [place], [place] [address] Assigned Heart and Vascular Provider 03/29/20 Connie Blackwell MD [address] [place], [place] 188710 Assigned Endocrinology Provider 07/14/20 12/19/20 Ruth Ann Munoz MD ARISE [address] [place] [address] Assigned PCP 07/28/20 08/25/20 Carlos Livingston MD NO INFO AVAILABLE Assigned PCP 08/26/20 08/31/20 Trina Carbajal PA-C [address] [place] 0[address]25 Assigned PCP 09/01/20 12/07/20 Carlos Livingston MD NO INFO AVAILABLE Assigned Endocrinology Provider 12/20/20 12/18/22 Carlos Livingston MD NO INFO AVAILABLE Assigned PCP 12/08/20 12/19/20 Trina Carbajal, PA-C [address] [facility] [address] [place] [address] Assigned PCP 12/20/20 04/28/24 Mari Funes, JERRY Personal Advocate & Liaison (PAL) Nurse 01/24/21 06/12/21 Jc Zavala MD [place] [facility] [address] [facility] 100 [place] [address] Hematology & Oncology 08/07/21 Barbi Manzo, JERRY Personal Advocate & Liaison (PAL) Family Medicine 12/24/21 07/08/23 [place] [address] [place] [address] Assigned Musculoskeletal Provider 04/04/22 08/19/23 Cristofer Michelle MD [address] [place], [place] [address]B [address]E [place], [place] [phone] Gastroenterology 07/28/22 Vivien Blanchard MD 420 [facility] 394 [place] [address] Urology 07/28/22 Sapna Hernandez MD [address] [facility] 394 [place] [address] Assigned Nephrology Provider 07/11/22 09/25/22 Vivien Blanchard MD [address] [place] [address] [phone] Assigned Surgical Provider 07/25/22 06/30/23 Virgie Lobato PA-C [address] [place] [address] 539435 Assigned Nephrology Provider 09/26/22 03/28/24 Teetee Velazquez PA-C [address] [place] [address] 791985 Physician Fluoroscope Operator 05/11/23 Teetee Velazquez PA-C [address] [place] [address] 538545 Assigned Surgical Provider 07/01/23 Cora Shah RN Personal Advocate & Liaison (PAL) Nurse 07/09/23 09/29/23 [place] [address] [address] Assigned Musculoskeletal Provider 08/20/23 Cristal Cooper, RN Lead Mash Grinder Primary Care - CC 04/27/2404/08 Shannon Rowland PA-C [address] [place] [phone] Assigned PCP 04/29/24 05/28/24 Lanie Foster, RD, LD [address] [place] [address] Registered Dietitian Nutrition 05/15/24 [place] [address] [place] [address] Assigned PCP 05/29/24 Melonie Caro [facility] [address] [place] [address] Pharmacist Pharmacist 06/05/24 Federico Linda MD [address] [place] [address] Cardiovascular Disease 06/13/24 Melonie Caro [facility] [address] [place] [address] Assigned MTM Pharmacist 06/29/24 Virgie Lobato, PA-C [address] [place] [address] Assigned Nephrology Provider 07/30/24 Barry Ybarra MD [address] [place] [address] Hospitalist Infectious Diseases 08/31/24 Barry Ybarra MD [address] [place] [address] Assigned Infectious Disease Provider 10/27/24 documented as of this encounter
--- OUTSIDE RECORDS SUMMARY | 2024-11-12 17:27 | XMS_ITS | Encounter Summary ---
Author Organization [place] Address [address] [place] [address] Care Team Providers Care Public Relations Assistant Name Role Phone Axel Helm MD Primary Care Provider [facility] Primary Care Provider + Flynn Ruiz MD Primary Care Provider Sigifredo Segal MD Primary Care Provider [phone] No Ref-Primary, Physician Primary Care Provider Flynn Ruiz MD Primary Care Provider [phone] No Ref-Primary, Physician Primary Care Provider Sheryl Stringer RD Unavailable [phone] Flynn Ruiz MD Primary Care Provider [phone] Sheryl Jaimes MD Primary Care Provider Unavailab le Flynn Ruiz MD Unavailable [facility] Primary Care Provider No Ref-Primary, Physician [...] 5-5000 Trina Carbajal-C Primary Care Provider [phone] oCnnie Blackwell MD Unavailable [phone] Ruth Ann Munoz MD Unavailable + Carlos Livingston MD Unavailable Jelena vailable Trina Carbajal-C Unavailable [phone] Carlos Livingston MD Unavailable Jelena vailable Carlos Livingston MD Unavailable Jelena vailable Trina Carbajal-C Unavailable [phone] Mari Funes RN Unavailable Unavailable Jc Zavala MD Unavailable [phone] Barbi Manzo RN Unavailable Unavailable Erasto Root MD Unavailable Cristofer Michelle MD Unavailable [phone] Vivien Blanchard MD Unavailable [phone] Sapna Hernandez MD Unavailable Vivien Blanchard MD Unavailable Virgie Lobato PA-C Unavailable [phone] Teetee Velazquez PA-C Unavailable [phone] Teetee Velazquez PA-C Unavailable [phone] Cora Shah RN Unavailable [phone] Brad Mayer DO Unavailable [phone] Mary Garcia MD Primary Care Provider Cristal Cooper RN Unavailable Shannon Rowland PA-C Unavailable [phone], LD Unavailabl e Mary Garcia MD Unavailable Melonie Caro [facility] Unavailable [phone] Federico Linda MD Unavailable Melonie Caro [facility] Unavailable Virgie viramontes PA-C Unavailable [phone] Barry Ybarra MD Unavailable Barry Ybarra MD Unavailable Reason for Visit * Reason Onset Date Comments MyChart Communication 01/17/2007 Encounter Details Date Type Department Care Team (Late st Contact Info) Description 01/15/2007 [facility] [address] [place] [address] Axel Helm MD [address] [place] [address] MyChart Communication Social History Tobacco Use Types Packs/Day Years Used Date Smoking Tobacco: Never Alcohol Use Standard Drinks/Week Comments No 0 (1 standard drink = 0.6 oz pur e alcohol) Comments No Sex and Gender Information Value Date Recorded Sex Assigned at Female 07/18/2020 1:16 PM CONVENTIONS ASSISTANT Legal Sex Female 3:23 AM CONVENTIONS ASSISTANT Gender Identity Female 07/18/2020 1:16 PM CONVENTIONS ASSISTANT Sexual Orientation Straight 07/18/2020 1: 16 PM CONVENTIONS ASSISTANT 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 Please send prescriptions to [facility] [address] documented in this encounter Plan of Treatment Upcoming Encounters Date Type Department Care Team (Late st Contact Info) Description 11/16/2024 1:00 PM CDT Allied Health/Nurse Visit [facility] Urology [address] [address] Lucero Britt PA-C 500 [place], [place] 7937[address] 11/16/2024 2:45 PM CDT Office Visit [facility] Urology [address] [phone] Vivien Blanchard MD 420 [facility] 394 [place], [place] [address] 11/20/2024 3:30 PM CDT Office Visit [address] [phone] Mary Garcia MD [address] [place] [address] 11/22/2024 9:15 AM CDT Office Visit [facility] Heart [facility] [address] [facility] [address] [place] [phone] Federico Linda MD 6405 [facility] [address] [place] [address] 11/30/2024 10:30 AM CDT Lab [facility] Laboratory [address] [place] [phone] 12/06/2024 10:10 AM CDT Office Visit [facility] 6525 [facility] 200 [place] [phone] Virgie Lobato, PA-C 909 [place] [address] 12/28/2024 11:00 AM CDT Office Visit [facility] 2945 [facility] 200 [place] [phone] Barry Ybarra MD 2945 [facility] 200 [place] [address] 01/26/2025 11:30 AM CDT Office Visit [facility] [address] [place] [address] [place] [address] [place] [address] documented as of this encounter Visit Diagnoses Diagnosis DIABETES UNCOMPL ADULT-TYPE II- Primary Type II or unspecified type diabetes mellitus without mention of complication, not stated as uncontrolled Diarrhea documented in this encounter Additional Health Concerns Infection Onset Date Last Indicated Resolved Time Rule Out COVID-19 03/08/2021 03/08/2021 03/09/2021 1:42 AM CDT Rule Out C-difficile 03/10/2021 03/10/2021 021 5:50 PM CDT Rule Out COVID-19 2021 2021 04/25/2021 12:41 PM CONVENTIONS ASSISTANT Rule Out COVID-19 06/14/2022 06/14/2022 06/14/2022 11:30 AM CONVENTIONS ASSISTANT Rule Out COVID-19 07/03/2022 07/03/2022 07/04/2022 12:27 AM CONVENTIONS ASSISTANT Rule Out COVID-19 04/01/2024 04/01/2024 04/01/2024 10:07 PM CDT ESBL 07/05/2024 08/24/2024 Rule Out COVID-19 07/16/2024 07/16/2024 07/16/2024 11:04 PM CONVENTIONS ASSISTANT Rule Out COVID-19 09/01/2024 09/01/2024 09/01/2024 2:05 AM CDT Rule Out COVID-19 09/21/2024 09/21/2024 09/21/2024 3:25 PM CDT documented as of this encounter Care Teams Public Relations Assistant Relationship Specialty Start Date End Date Axel Helm MD [address] [facility] 160 [place] [address] PCP - General 07/21/02 05/11/11 [facility] PCP - General 05/12/11 08/24/11 Flynn Ruiz MD PCP - General Family Practice 08/25/11 07/14/16 Sigifredo Segal MD [facility] [address] [place] [phone] PCP - General Family Practice 07/15/16 10/13/16 No Ref-Primary, Physician PCP - General 10/14/16 03/14/17 Flynn Ruiz MD PCP - General Family Practice 03/15/17 11/02/17 No Ref-Primary, Physician PCP - General 11/03/17 12/07/17 Flynn Ruiz MD PCP - General Family Practice 12/08/17 07/07/18 Shreyl Jaimes MD [address] [place] [address] PCP - General Family Practice 07/08/18 08/02/18 Flynn Ruiz MD [address] [place] [address] PCP - Assigned PCP 07/10/18 08/09/18 [facility] [address] [place], [place] [phone] PCP - General 08/03/18 08/04/18 No Ref-Primary, Physician PCP - General 08/05/18 08/30/18 [place] [address] [place] [address] PCP - General Family Practice 08/31/18 04/13/19 Flynn Ruiz MD [facility] [address] [place] [address] [place] [address] PCP - General Family Practice 04/14/19 05/18/20 Trina Carbajal PA-C [address] [facility] [address] [place] [address] PCP - General Family Medicine 05/19/20 04/10/24 [place] [address] [address] [place] [address] PCP - General Family Medicine 04/11/[address] [place] [address] Chief Dispatcher Service Dietitian, Registered 11/03/17 Flynn Ruiz MD [address] [place] [address] Assigned PCP 04/24/18 12/24/18 Ruth Ann Munoz MD [address] [place] [address] Assigned PCP 12/25/18 04/22/19 Ruth Ann Munoz MD [address] [employer] [address] [place] [address] Assigned PCP 04/30/19 05/27/19 Flynn Ruiz MD [address] [place] [address] Assigned PCP 04/23/19 04/29/19 Flynn Ruiz MD [address] [place] [address] Assigned PCP 05/28/19 07/22/19 Mari Funes, JERRY Personal Advocate & Liaison (PAL) 07/27/19 07/30/19 Ruth Ann Munoz MD [address] [place] [address] Assigned PCP 07/23/19 08/12/19 Trina Carbajal PA-C [address] [place] [address] Assigned PCP 08/13/19 07/27/20 Federico Linda MD [address] [place] [address] Assigned Heart and Vascular Provider 03/29/20 Connie Blackwell MD [address] [place] [address] Assigned Endocrinology Provider 07/14/20 12/19/20 Ruth Ann Munoz MD [address] [place] [address] Assigned PCP 07/28/20 08/25/20 Carlos Livingston MD NO INFO AVAILABLE Assigned PCP 08/26/20 08/31/20 Trina Carbajal PA-C [address] [place], [place] [address] Assigned PCP 09/01/20 12/07/20 Carlos Livingston MD NO INFO AVAILABLE Assigned Endocrinology Provider 12/20/20 12/18/22 Carlos Livingston MD NO INFO AVAILABLE Assigned PCP 12/08/20 12/19/20 Trina Carbajal PA-C 6[address] [facility] [address] [place] [address] Assigned PCP 12/20/20 04/28/24 Mari Funes, JERRY Personal Advocate & Liaison (PAL) Nurse 01/24/21 06/12/21 Jc Zavala MD [facility] [address] [facility] 100 [place], [place] [address] Hematology & Oncology 08/07/21 Barbi Manzo RN Personal Advocate & Liaison (PAL) Family Medicine 12/24/21 07/08/23 [place] [address] [place] [address] Assigned Musculoskeletal Provider 04/04/22 08/19/23 Cristofer Michelle MD [address] [place], [place] [address]B 1E [place], [place] [address] Gastroenterology 07/28/22 Vivien Blanchard MD [address] [place] [address] 394 [place], [place] 74[address] Urology 07/28/22 Sapna Hernandez MD [address] [place] [address] 535875 Assigned Nephrology Provider 07/11/22 09/25/22 Vivien Blanchard MD [address] [place] [address] Assigned Surgical Provider 07/25/22 06/30/23 Virgie Lobato PA-C [address] [place] [address] 264775 Assigned Nephrology Provider 09/26/22 03/28/24 Teetee Velazquez PA-C [address] [place] [address] 055955 Physician District Wire Chief 05/11/23 Teetee Velazquez PA-C [address] [place] [address] 033015 Assigned Surgical Provider 07/01/23 Cora Shah, JERRY Personal Advocate & Liaison (PAL) Nurse 07/09/23 09/29/23 [place] [address] [address] [address] Assigned Musculoskeletal Provider 08/20/23 Cristal Cooper, JERRY Lead Residential Remodeling Subcontractor Primary Care - CC 04/27/2404/08 Shannon Rowland [place]-C [address] [place] [address] Assigned PCP 04/29/24 05/28/24 Lanie Foster, RD, LD [address] [place] [address] Registered Dietitian Nutrition 05/15/24 [place] [address] [place] [address] Assigned PCP 05/29/24 Melonie Caro [facility] [address] [place] [address] Pharmacist Pharmacist 06/05/24 Federico Linda MD 6405 [facility] [address] [place], [place] [address] Cardiovascular Disease 06/13/24 Melonie Caro [facility] [address] [place] [address] Assigned MTM Pharmacist 06/29/24 Virgie Lobato, PA-C [address] [place] [address] 162165 Assigned Nephrology Provider 07/30/24 Barry Ybarra MD [address] [place] [address] Hospitalist Infectious Diseases 08/31/24 Barry Ybarra MD [address] [place] [address] Assigned Infectious Disease Provider 10/27/24 documented as of this encounter
--- OUTSIDE RECORDS SUMMARY | 2024-11-12 17:27 | XMS_ITS | Encounter Summary ---
Author Organization [facility] Address [address] [place] [address] Care Team Providers Care Lead Sql Developer Name Role Phone Sheryl Stringer RD Unavailable [phone] Federico Linda MD Unavailable [phone] Jc Zavala MD Unavailable [phone] Cristofer Michelle MD Unavailable Vivien Blanchard MD Unavailable [phone] Teetee Velazquez-Javi Unavailable Teetee Velazquez PA-C Unavailable [phone] Brad Mayer DO Unavailable [phone] Mary Garcia MD Primary Care Provider Lanie Foster RD, LD Unavailabl e Mary Garcia MD Unavailable Melonie Caro [facility] Unavailable [phone] Federico Linda MD Unavailable [phone] VaniaMelonie duarte [facility] Unavailable [phone] Virgie Lobato PA-C Unavailable [phone] Barry Ybarra MD Unavailable [phone] Barry Ybarra MD Unavailable [phone] Encounter Details Date Type Department Care Team (Late st Contact Info) Description 07/25/2024 MyC Medical Advice [facility] Pharm D Project [address] [place] [address] Kenia Del Angel Social History Tobacco Use Types Packs/Day Years [...] in an overnight longterm, or couch-surfing.) Yes 07/17/2024 Are you worried [...] Sex Assigned at Female 07/18/2020 1:16 PM RESPIRATORY MANAGER Legal Sex Female 3:23 AM RESPIRATORY MANAGER Gender Identity Female 07/18/2020 1:16 PM RESPIRATORY MANAGER Sexual Orientation Straight 07/18/2020 1: 16 PM RESPIRATORY MANAGER 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 Not on file documented as of this encounter Plan of Treatment Upcoming Encounters Date Type Department Care Team (Late st Contact Info) Description 11/16/2024 1:00 PM CDT Allied Health/Nurse Visit [facility] Urology [address] [address] Lucero Britt PA-C 500 [place], [place] [phone] 11/16/2024 2:45 PM CDT Office Visit [facility] Urology [address] [address] Vivien Blanchard MD 420 [facility] 394 [place] [address] 11/20/2024 3:30 PM CDT Office Visit [address] [address] [place] [address] [place] [address] 11/22/2024 9:15 AM CDT Office Visit [facility] Heart [facility] 10[address] [facility] [address] [place] [address] Federico Linda MD 6405 [facility] [address] [place] [address] 11/30/2024 10:30 AM CDT Lab [facility] [address] [place] [phone] 12/06/2024 10:10 AM CDT Office Visit [facility] 6525 [facility] 200 [place] [address] Virgie Lobato, PA-C [address] [place] [address] 12/28/2024 11:00 AM CDT Office Visit [facility] 2945 [facility] 200 [place] [phone] Barry Ybarra MD [address] [address] 01/26/2025 11:30 AM CDT Office Visit [facility] [address] [place] [address] [place] [address] [place] [address] documented as of this encounter Goals Goal Patient Goal Type Associated Problems Recent Progress Patient-Stated? Author Problem Solving General On track( 019 9:24 AM RESPIRATORY MANAGER) Yes Sheryl Stringer RD Note: My [...] Total Score: 3 05/02/20 24 1:39 PM RESPIRATORY MANAGER documented as of this encounter Care Teams Lead Sql Developer Relationship Specialty [place] [address] [place] [address] PCP - General Family Medicine 04/11/[address] [place] [address] Cassandra Architect Dietitian, Registered 11/03/17 Federico Linda MD 6405 [facility] [address] [place] [address] Assigned Heart and Vascular Provider 03/29/20 Jc Zavala MD [facility] [address] 100 [place] [address] Hematology & Oncology 08/07/21 Cristofer Michelle MD 6 [facility] 1E [place] [address] Gastroenterology 07/28/22 Vivien Blanchard MD [address] [place] [address] 394 [place] [address] Urology 07/28/22 Teetee Velazquez PA-C 909 [place] [address] Physician Cargo Surveyor 05/11/23 Teetee Velazquez PA-C [address] [place] [address] 383155 Assigned Surgical Provider 07/01/23 [place] [address] [address] Assigned Musculoskeletal Provider 08/20/23 Lanie Foster, RD, LD [address] [place], [place] [address] Registered Dietitian Nutrition 05/15/24 [place] [address] [place] [address] Assigned PCP 05/29/24 Melonie Caro [facility] [address] [place] [address] Pharmacist Pharmacist 06/05/24 Federico Linda MD [address] [facility] [address] [place] [address] Cardiovascular Disease 06/13/24 Melonie Caro [facility] [address] [place] [address] Assigned MTM Pharmacist 06/29/24 Virgie Lobato PA-C [address] [place] [address] Assigned Nephrology Provider 07/30/24 Barry Ybarra MD [address] [place] [address] Hospitalist Infectious Diseases 08/31/24 Barry Ybarra MD [address] [place] [address] Assigned Infectious Disease Provider 10/27/24 documented as of this encounter
--- OUTSIDE RECORDS SUMMARY | 2024-11-12 17:27 | XMS_ITS | Encounter Summary ---
Author Organization [facility] Address [address] [place] [address] Care Team Providers Care Sales/Marketing Name Role Phone Sheryl Stringer ELI Unavailable [phone] Ruth Ann Munoz MD Primary Care Prov ider Ruth Ann Munoz MD Unavailable + Flynn Ruiz MD Primary Care Provider [phone] Ruth Ann Munoz MD Unavailable + Flynn Ruiz MD Unavailable [phone] Flynn Ruiz MD Unavailable [phone] Mari Funes RN Unavailable Unavailable Ruth Ann Munoz MD Unavailable + Trina Carbajal PA-C Unavailable [phone] Federico Linda MD Unavailable [phone] Solomon, Trina N PA-C Primary Care Provider [phone] Connie Blackwell MD Unavailable Ruth Ann Munoz MD Unavailable + Carlos Livingston MD Unavailable Jelena vailable Trina Carbajal PA-C Unavailable [phone] Carlos Livingston MD Unavailable Jelena vailable Carlos Livingston MD Unavailable Jel[place] vailable Trina Carbajal PA-C Unavailable [phone] Mari Funes RN Unavailable Unavailable Jc Zavala MD Unavailable [phone] Barbi Manzo RN Unavailable Unavailable Erasto Root MD Unavailable Cristofer Michelle MD Unavailable Vivien Blanchard MD Unavailable [phone] Sapna Hernandez MD Unavailable LoVivien williamson MD Unavailable [phone] Virgie Lobato PA-C Unavailable Teetee Velazquez PA-C Unavailable Teetee Velazquez PA-C Unavailable [phone] Cora Shah RN Unavailable [phone] Brad Mayer DO Unavailable [phone] Mary Garcia MD Primary Care Provider Cristal Cooper RN Unavailable Shannon Rowland PA-C Unavailable [phone], LD Unavailabl e Mary Garcia MD Unavailable Melonie Caro [facility] Unavailable Federico Linda MD Unavailable [phone] Melonie Car[address] [facility] Unavailable [phone] Virgie Lobato PA-C Unavailable [phone] Barry Ybarra MD Unavailable [phone] Barry Ybarra MD Unavailable [phone] Encounter Details Date Type Department Care Team (Late Contact Info) Description 03/02/2019 MyC Medical Advice [facility] 3305 [facility] [address] [place] [address] [place] [address] Social History Tobacco Use Types Packs/Day Years Used Date Smoking Tobacco: Never Smokeless Tobacco: Never Alcohol Use Standard Drinks/Week Comments No 0 (1 standard drink = 0.6 oz pur e alcohol) PHQ-2 Answer Date Recorded PHQ-2 Score 2 06/21/2018 Comments No Sex and Gender Information Value Date Recorded Sex Assigned at Female 07/18/2020 1:16 PM FOUNDRY EQUIPMENT MECHANIC Legal Sex Female 3:23 AM FOUNDRY EQUIPMENT MECHANIC Gender Identity Female 07/18/2020 1:16 PM FOUNDRY EQUIPMENT MECHANIC Sexual Orientation Straight 07/18/2020 1: 16 PM FOUNDRY EQUIPMENT MECHANIC 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 Not on file Not on file documented as of this encounter Plan of Treatment Upcoming Encounters Date Type Department Care Team (Late Contact Info) Description 11/16/2024 1:00 PM CDT Allied Health/Nurse Visit [facility] Urology [address] [address] Lucero Britt PA-C 500 [place] [address] 11/16/2024 2:45 PM CDT Office Visit [facility] Urology [address] [address] Vivien Blanchard MD 420 [facility] 394 [place] [address] 11/20/2024 3:30 PM CDT Office Visit [facility] [address] [place] [address] [place] [address] [place], [place] [address] 11/22/2024 9:15 AM CDT Office Visit [facility] Heart [facility] [address] [facility] [address] [place] [address] Federico Linda MD 4495 [facility] [address] [place], [place] [address] 11/30/2024 10:[address] [facility] [address] [place] [address] 12/06/2024 10:10 AM CDT [facility] 6525 [facility] 200 [place] [address] Virgie Lobato, PA-C 909 [place] [address] 12/28/2024 11:00 AM CDT Office Visit [facility] 2945 [facility] 200 [place] [address] Barry Ybarra MD 2945 [facility] 200 [place] [address] 01/26/2025 11:30 AM CDT Office Visit [address] [phone] [place] [address] [place] [address] documented as of this encounter Goals Goal Patient Goal Type Associated Problems Recent Progress Patient-Stated? Author Problem Solving General On track( 019 9:24 AM FOUNDRY EQUIPMENT MECHANIC) Yes Sheryl Stringer RD Note: My [...] Out COVID-19 2021 2021 04/25/2021 12:41 PM FOUNDRY EQUIPMENT MECHANIC Rule Out COVID-19 06/14/2022 06/14/2022 06/14/2022 11:30 AM FOUNDRY EQUIPMENT MECHANIC Rule Out COVID-19 07/03/2022 07/03/2022 07/04/2022 12:27 AM FOUNDRY EQUIPMENT MECHANIC Rule Out COVID-19 04/01/2024 04/01/2024 04/01/2024 10:07 PM CDT ESBL 07/05/2024 08/24/2024 Rule Out COVID-19 07/16/2024 07/16/2024 07/16/2024 11:04 PM FOUNDRY EQUIPMENT MECHANIC Rule Out COVID-19 09/01/2024 09/01/2024 09/01/2024 2:05 AM CDT Rule Out COVID-19 09/21/2024 09/21/2024 09/21/2024 3:25 PM CDT Assessment Noted Time PHQ-9 Depression Total Score: 6 08/09/19 19 8:45 AM FOUNDRY EQUIPMENT MECHANIC documented as of this encounter Care Teams Sales/Marketing Relationship Specialty Start Date End Date Ruth Ann Munoz MD [address] [place] [address] PCP - General Family Practice 08/31/18 04/13/19 Flynn Ruiz MD [place] [address] [place], [place] [address] PCP - General Family Practice 04/14/19 05/18/20 Trina Carbajal PA-C 6405 [facility] [address] [place] [address] PCP - General Family Medicine 05/19/20 04/10/24 [place] [address] [place] [address] PCP - General Family Medicine 04/11/[address] [place] [address] Garment Patternmaker Dietitian, Registered 11/03/17 Ruth Ann Munoz MD [place] [address] [place], [place] [address] Assigned PCP 12/25/18 04/22/19 Ruth Ann Munoz MD [place] [address] [place] [address] Assigned PCP 04/30/19 05/27/19 Flynn Ruiz MD [address] [place] [address] Assigned PCP 04/23/19 04/29/19 Flynn Ruiz MD [address] [place] [address] Assigned PCP 05/28/19 07/22/19 Mari Funes, JERRY Personal Advocate & Liaison (PAL) 07/27/19 07/30/19 Ruth Ann Munoz MD [place] [address] [place] [address] Assigned PCP 07/23/19 08/12/19 Trina Carbajal PA-C [address] [place], [place] [address] Assigned PCP 08/13/19 07/27/20 Federico Linda MD [address] [place] [address] Assigned Heart and Vascular Provider 03/29/20 Connie Blackwell MD [address] [place] [address] Assigned Endocrinology Provider 07/14/20 12/19/20 Ruth Ann Munoz MD [place] [address] [place] [address] Assigned PCP 07/28/20 08/25/20 Carlos Livingston MD NO INFO AVAILABLE Assigned PCP 08/26/20 08/31/20 Trina Carbajal PA-C [address] [place] [address] Assigned PCP 09/01/20 12/07/20 Carlos Livingston MD NO INFO AVAILABLE Assigned Endocrinology Provider 12/20/20 12/18/22 Carlos Livingston MD NO INFO AVAILABLE Assigned PCP 12/08/20 12/19/20 Trina Carbajal, PA-C 6405 [facility] [address] [place] [address] Assigned PCP 12/20/20 04/28/24 Mari Funes, JERRY Personal Advocate & Liaison (PAL) Nurse 01/24/21 06/12/21 Jc Zavala MD [place] [facility] [address] [place] [address] Hematology & Oncology 08/07/21 Barbi Manzo, JERRY Personal Advocate & Liaison (PAL) Family Medicine 12/24/21 07/08/23 [place] [address] [place] [address] Assigned Musculoskeletal Provider 04/04/22 08/19/23 Cristofer Michelle MD 6 [facility] 1E [place], [place] [address] Gastroenterology 07/28/22 Vivien Blanchard MD [address] [place] [address] 394 [place], [place] [address] Urology 07/28/22 Sapna Hernandez MD 420 [facility] 394 [place] [address] Assigned Nephrology Provider 07/11/22 09/25/22 Vivien Blanchard MD 420 [facility] 394 [place] [address] Assigned Surgical Provider 07/25/22 06/30/23 Virgie Lobato PA-C [address] [place] [address] [id number] Assigned Nephrology Provider 09/26/22 03/28/24 Teetee Velazquez PA-C [address] [place] [address] 248245 Physician Stave Grader 05/11/23 Teetee Velazquez PA-C [address] [place] [address] 144995 Assigned Surgical Provider 07/01/23 Cora Shah RN Personal Advocate & Liaison (PAL) Nurse 07/09/23 09/29/23 [place] [address] [address] [address] Assigned Musculoskeletal Provider 08/20/23 Cristal Cooper, JERRY Lead Switch Operator Primary Care - CC 04/27/2404/08 Shannon Rowland PA-C [address] [place] [address] Assigned PCP 04/29/24 05/28/24 Lanie Foster, RD, LD [address] [id number] Registered Dietitian Nutrition 05/15/24 [place] [address] [place], [place] [address] Assigned PCP 05/29/24 Melonie Caro RP [address] [place], [place] 12[address] Pharmacist Pharmacist 06/05/24 Federico Linda MD [address] [facility] [facility] [address] [place] [address] Cardiovascular Disease 06/13/[address] [facility] [address] [place], [place] [address] Assigned MTM Pharmacist 06/29/24 Virgie Lobato, PA-C [address] [place] [address] 301815 Assigned Nephrology Provider 07/30/24 Barry Ybarra MD [address] [place] [address] Hospitalist Infectious Diseases 08/31/24 Barry Ybarra MD [address] [place] [address] Assigned Infectious Disease Provider 10/27/24 documented as of this encounter
--- OUTSIDE RECORDS SUMMARY | 2024-11-12 17:27 | XMS_ITS | Encounter Summary ---
Author Organization [facility] Address [address] [place] [address] Care Team Providers Care Fingernail Technician Name Role Phone Sheryl Stringer RD Unavailable [phone] Federico Linda MD Unavailable [phone] Jc Zavala MD Unavailable [phone] Cristofer Michelle MD Unavailable Vivien Blanchard MD Unavailable Teetee Velazquez-Javi Unavailable Teetee Velazquez PA-C Unavailable Brad Mayer DO Unavailable [phone] Mary Garcia MD Primary Care Provider [phone], LD Unavailabl e Mary Garcia MD Unavailable Melonie Caro [facility] Unavailable Federico Linda MD Unavailable [phone] Melonie Caro [facility] Unavailable [phone] Virgie Lobato PA-C Unavailable [phone] Barry bYarra MD Unavailable [phone] Barry Ybarra MD Unavailable [phone] Reason for Visit * Reason Onset Date Comments MyChart Communication 08/11/2024 Encounter Details Date Type Department Care Team (Latest Contact Info) Description 08/11/2024 MyC Medical Advice [facility] [address] [place] [address] [place] [address] [place] [address] MyChart Communication Social History Tobacco [...] in an overnight correction, or couch-surfing.) Yes 07/17/2024 Are you worried [...] Sex Assigned at Female 07/18/2020 1:16 PM PUBLIC HEALTH TECHNOLOGIST Legal Sex Female 3:23 AM PUBLIC HEALTH TECHNOLOGIST Gender Identity Female 07/18/2020 1:16 PM PUBLIC HEALTH TECHNOLOGIST Sexual Orientation Straight 07/18/2020 1: 16 PM PUBLIC HEALTH TECHNOLOGIST 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 Not on file Not on file documented as of this encounter Plan of Treatment Upcoming Encounters Date Type Department Care Team (Late st Contact Info) Description 11/16/2024 1:00 PM CDT Allied Health/Nurse Visit [facility] Urology [address] [address] Lucero Britt PA-C 500 [place], [place] [address] 11/16/2024 2:45 PM CDT Office Visit [facility] Urology [address] [address] Vivien Blanhcard MD 420 [facility] 394 [place] [address] 11/20/2024 3:30 PM CDT Office Visit [facility] [address] [place] [phone] [place] [address] [place] [address] 11/22/2024 9:15 AM CDT Office Visit [facility] Heart [facility] [address] [facility] [address] [place] [address] Federico Linda MD 6409 [facility] [address] [place], [place] [address] 11/30/2024 10:30 AM CDT Lab [facility] [address] [place] [address] 12/06/2024 10:10 AM CDT Office Visit [facility] 6525 [facility] 200 [place] [address] Virgie Lobato, PA-C [address] [place] [address] 12/28/2024 11:00 AM CDT Office Visit [facility] [address] [place] [phone] [place] [address] [place] [address] 01/26/2025 11:30 AM CDT Office Visit [place] [address] [place] [address] [place] [address] [place], [place] 6[address] documented as of this encounter Goals Goal Patient Goal Type Associated Problems Recent Progress Patient-Stated? Author Problem Solving General On track( 019 9:24 AM PUBLIC HEALTH TECHNOLOGIST) Yes Sheryl Stringer, ELI Note: My Goal: [...] Total Score: 3 05/02/20 24 1:39 PM PUBLIC HEALTH TECHNOLOGIST documented as of this encounter Care Teams Fingernail Technician Relationship Specialty [place] [address] [place] [address] PCP - General Family Medicine 04/11/24 Sheryl Stringer, RD [address] [place] [address] Certified Ophthalmic Surgical Assistant Dietitian, Registered 11/03/17 Federico Linda MD 6405 [facility] [address] [place] 127095 Assigned Heart and Vascular Provider 03/29/20 Jc Zavala MD [facility] [address] [place] [address] Hematology & Oncology 08/07/21 Cristofer Michelle MD 516 [facility] PMB 1E [place] [address] Gastroenterology 07/28/22 Vivien Blanchard MD 420 [facility] 394 [place], [place] [address] Urology 07/28/22 Teetee Velazquez PA-C 909 [place] [address] Physician Power Technician 05/11/23 Teetee Velazquez PA-C 909 [place], [place] 852385 Assigned Surgical Provider 07/01/23 [place] [address] [facility] 300 [place] [address] Assigned Musculoskeletal Provider 08/20/23 Lanie Foster, RD, LD [address] [place] 752755 Registered Dietitian Nutrition 05/15/24 [place] [address] [place] [address] Assigned PCP 05/29/24 Melonie Caro RPH [address] [place] [address] Pharmacist Pharmacist 06/05/24 Federico Linda MD [address] [place] [address] Cardiovascular Disease 06/13/24 Melonie Caro Gin [address] [place] [address] Assigned MTM Pharmacist 06/29/24 Virgie Lobato, PAAnthonyC [address] [place] [address] Assigned Nephrology Provider 07/30/24 Barry Ybarra MD [address] [place] [address] Hospitalist Infectious Diseases 08/31/24 Barry Ybarra MD [address] [place] [address] Assigned Infectious Disease Provider 10/27/24 documented as of this encounter
--- OUTSIDE RECORDS SUMMARY | 2024-11-12 17:27 | XMS_ITS | Encounter Summary ---
Author Organization [place] Address [address] [address] Care Team Providers Care Group Teacher Name Role Phone Sheryl Stringer ELI Unavailable Ruth Ann Munoz MD Primary Care Prov ider Ruth Ann Munoz MD Unavailable + Flynn Ruiz MD Primary Care Provider [phone] Ruth Ann Munoz MD Unavailable + Flynn Ruiz MD Unavailable [phone] Flynn Ruiz MD Unavailable [phone] Mari Funes RN Unavailable Unavailable Ruth Ann Munoz MD Unavailable + Trina Carbajal PA-C Unavailable [phone] Federico Linda MD Unavailable [phone] Solomon, Trina N PA-C Primary Care Provider [phone] Connie Blackwell MD Unavailable Ruth Ann Munoz MD Unavailable + Carlos Livingston MD Unavailable Jelena vailable Trina Carbajal PA-C Unavailable [phone] Carlos Livingston MD Unavailable Jelena vailable Carlos Livingston MD Unavailable Jelena vailable Trina Carbajal PA-C Unavailable [phone] Mari Funes RN Unavailable Unavailable Jc Zavala MD Unavailable [phone] Barbi Manzo RN Unavailable Unavailable Erasto Root MD Unavailable Cristofer Michelle MD Unavailable Vivien Blanchard MD Unavailable Sapna Hernandez MD Unavailable LoVivien williamson MD Unavailable Virgie Lobato PA-C Unavailable Teetee Velazquez PA-C Unavailable Teetee Velazquez PA-C Unavailable [phone] Cora Shah RN Unavailable [phone] Brad Mayer DO Unavailable [phone] Mary Garcia MD Primary Care Provider Cristal Cooper RN Unavailable Shannon Rowland PA-C Unavailable [phone], LD Unavailabl e Mary Garcia MD Unavailable Melonie Caro [facility] Unavailable Federico Linda MD Unavailable [phone] Melonie Caro [facility] Unavailable [phone] Virgie Lobato PA-C Unavailable +[phone] Barry Ybarra MD Unavailable Barry Ybarra MD Unavailable [phone] Reason for Visit * Reason Onset Date Comments MyChart Communication 03/19/2019 results Encounter Details Date Type Department Care Team (Latest Contact Info) Description 03/19/2019 MyC Medical Advice [address] [address] Ruth Ann Munoz MD [facility] [address] 664608 MyChart Communication ( results) Social History Tobacco Use Types Packs/Day Years Used Date Smoking Tobacco: Never Smokeless Tobacco: Never Alcohol Use Standard Drinks/Week Comments No 0 (1 standard drink = 0.6 oz pur e alcohol) PHQ-2 Answer Date Recorded PHQ-2 Score 2 06/21/2018 Comments No Sex and Gender Information Value Date Recorded Sex Assigned at Female 07/18/2020 1:16 PM CONSUMER INSIGHT ANALYST Legal Sex Female 3:23 AM CONSUMER INSIGHT ANALYST Gender Identity Female 07/18/2020 1:16 PM CONSUMER INSIGHT ANALYST Sexual Orientation Straight 07/18/2020 1: 16 PM CONSUMER INSIGHT ANALYST 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 Not on file Not on file documented as of this encounter Plan of Treatment Upcoming Encounters Date Type Department Care Team (Late st Contact Info) Description 11/16/2024 1:00 PM CDT Allied Health/Nurse Visit [facility] [place] [id number] [facility] 4th [place] [address] Lucero Britt PA-C 500 [place], [place] [phone] 11/16/2024 2:45 PM CDT Office Visit [facility] Urology Clinic [place] 9[address] [facility] 4th [place] [phone] Vivien Blanchard MD 420 [facility] 394 [place] [address] 11/20/2024 3:30 PM CDT Office Visit [facility] [address] [place] [phone] [place] [address] [place] [address] 11/22/2024 9:15 AM CDT Office Visit [facility] Heart [facility] [address] [facility] [address] [place] [phone] Federico Linda MD 6405 [facility] [address] [place] [address] 11/30/2024 10:30 AM CDT Lab [facility] Laboratory [address] [place] [phone] 12/06/2024 10:10 AM CDT Office Visit [facility] Specialty [facility] 6525 [facility] 200 [place] [phone] Virgie Lobato PA-C 909 [place] [address] 12/28/2024 11:00 AM CDT Office Visit [facility] 2945 [facility] 200 [place] [phone] [place] [address] [place] [address] 200 [place] [address] 01/26/2025 11:30 AM CDT Office Visit [facility] [address] [place] [phone] [place] [address] [place], [place] [phone] documented as of this encounter Goals Goal Patient Goal Type Associated Problems Recent Progress Patient-Stated? Author Problem Solving General On track( 9:24 AM CONSUMER INSIGHT ANALYST) Yes Sheryl Stringer RD Note: My Goal: [...] Out COVID-19 2021 2021 04/25/2021 12:41 PM CONSUMER INSIGHT ANALYST Rule Out COVID-19 06/14/2022 06/14/2022 06/14/2022 11:30 AM CONSUMER INSIGHT ANALYST Rule Out COVID-19 07/03/2022 07/03/2022 07/04/2022 12:27 AM CONSUMER INSIGHT ANALYST Rule Out COVID-19 04/01/2024 04/01/2024 04/01/2024 10:07 PM CDT ESBL 07/05/2024 08/24/2024 Rule Out COVID-19 07/16/2024 07/16/2024 07/16/2024 11:04 PM CONSUMER INSIGHT ANALYST Rule Out COVID-19 09/01/2024 09/01/2024 09/01/2024 2:05 AM CDT Rule Out COVID-19 09/21/2024 09/21/2024 09/21/2024 3:25 PM CDT Assessment Noted Time PHQ-9 Depression Total Score: 6 08/09/19 19 8:45 AM CONSUMER INSIGHT ANALYST documented as of this encounter Care Teams Group Teacher Relationship Specialty Start Date End Date Ruth Ann Munoz MD [place] [address] [place] [address] PCP - General Family Practice 08/31/18 04/13/19 Flynn Ruiz MD [place] [address] [place] [address] PCP - General Family Practice 04/14/19 05/18/20 Trina Carbajal PA-C [address] [facility] [address] [place] [address] PCP - General Family Medicine 05/19/20 04/10/24 [place] [address] [place] [address] PCP - General Family Medicine 04/11/[address] [place] [address] [place] [address] Clear Coat Sprayer Dietitian, Registered 11/03/17 Ruth Ann Munoz MD [place] [address] [place] [address] Assigned PCP 12/25/18 04/22/19 Ruth Ann Munoz MD [place] [address] [place] [address] Assigned PCP 04/30/19 05/27/19 Flynn Ruiz MD [address] [place] [address] Assigned PCP 04/23/19 04/29/19 Flynn Ruiz MD [address] [place] [address] Assigned PCP 05/28/19 07/22/19 Mari Funes, JERRY Personal Advocate & Liaison (PAL) 07/27/19 07/30/19 Ruth Ann Munoz MD [place] [address] [place] [address] Assigned PCP 07/23/19 08/12/19 Trina Carbajal PA-C [address] [place] [address] Assigned PCP 08/13/19 07/27/20 Federico Linda MD [address] [place] [address] Assigned Heart and Vascular Provider 03/29/20 Connie Blackwell MD [address] [facility] 200 [place], [place] [address] Assigned Endocrinology Provider 07/14/20 12/19/20 Ruth Ann Munoz MD [place] [address] [place] [address] Assigned PCP 07/28/20 08/25/20 Carlos Livingston MD NO INFO AVAILABLE Assigned PCP 08/26/20 08/31/20 Trina Carbajal PA-C [address] [place] [address] Assigned PCP 09/01/20 12/07/20 Carlos Livingston MD NO INFO AVAILABLE Assigned Endocrinology Provider 12/20/20 12/18/22 Carlos Livingston MD NO INFO AVAILABLE Assigned PCP 12/08/20 12/19/20 Trina Carbajal PA-C [address] [place], [place] [address] Assigned PCP 12/20/20 04/28/24 Mari Funes, JERRY Personal Advocate & Liaison (PAL) Nurse 01/24/21 06/12/21 Jc Zavala MD MD [facility] [address] [place], [place] [phone] Hematology & Oncology 08/07/21 Barbi Manzo, JERRY Personal Advocate & Liaison (PAL) Family Medicine 12/24/21 07/08/23 [place] [address] [place] [address] Assigned Musculoskeletal Provider 04/04/22 08/19/23 Cristofer Michelle MD 6 [facility] PM[address] [place], [place] [phone] Gastroenterology 07/28/22 Vivien Blanchard MD 420 [facility] 394 [place], [place] [phone] Urology 07/28/22 Sapna Hernandez MD [address] [place] [address] Assigned Nephrology Provider 07/11/22 09/25/22 Vivien Blanchard MD [address] [place] [address] Assigned Surgical Provider 07/25/22 06/30/23 Virgie Lobato PA-C [address] [place] [address] Assigned Nephrology Provider 09/26/22 03/28/24 Teetee Velazquez PA-C [address] [place] [address] Physician Distance Learning Administrator 05/11/23 Teetee Velazquez PA-C [address] [place] [address] Assigned Surgical Provider 07/01/23 Cora Shah RN Personal Advocate & Liaison (PAL) Nurse 07/09/23 09/29/23 [place] [address] [address] [address] Assigned Musculoskeletal Provider 08/20/23 Cristal Cooper, JERRY Lead Net Software Developer Primary Care - CC 04/27/2404/08 Shannon Rowland [facility]-C [address] [facility] [address] Assigned PCP 04/29/24 05/28/24 Lanie Foster, RD, LD [address] [place], [place] [address] Registered Dietitian Nutrition 05/15/24 [place] [address] [place] [address] Assigned PCP 05/29/24 Melonie Caro [facility] [address] [place], [place] [address] Pharmacist Pharmacist 06/05/24 Federico Linda MD [address] [place], [place] [address] Cardiovascular Disease 06/13/24 Melonie Caro [facility] [address] [place] [address] Assigned MTM Pharmacist 06/29/24 Virgie Lobato PA-C [address] [place] [address] 102215 Assigned Nephrology Provider 07/30/24 Barry Ybarra MD [address] [place] [address] Hospitalist Infectious Diseases 08/31/24 Barry Ybarra MD [facility] [address] [address] Assigned Infectious Disease Provider 10/27/24 documented as of this encounter
--- OUTSIDE RECORDS SUMMARY | 2024-11-12 17:27 | XMS_ITS | Encounter Summary ---
Author Organization [place] Address [address] [place] [address] Care Team Providers Care Personnel Research Scientist Name Role Phone Sheryl Stringer ELI Unavailable [phone] Ruth Ann Munoz MD Primary Care Prov ider Ruth Ann Munoz MD Unavailable + Flynn Ruiz MD Primary Care Provider [phone] Ruth Ann Munoz MD Unavailable + Flynn Ruiz MD Unavailable [phone] Flynn Ruiz MD Unavailable [phone] Mari Funes RN Unavailable Unavailable Ruth Ann Munoz MD Unavailable + Trina Carbajal PA-C Unavailable [phone] Federico Linda MD Unavailable [phone] Solomon, Trina N PA-C Primary Care Provider [phone] Connie Blackwell MD Unavailable Ruth Ann Munoz MD Unavailable + Carlos Livingston MD Unavailable Jelena vailable Trina Carbajal PA-C Unavailable [phone] Carlos Livingston MD Unavailable Jelena vailable Carlos Livingston MD Unavailable Jelena vailable Trina Carbajal PA-C Unavailable [phone] Mari Funes RN Unavailable Unavailable Jc Zavala MD Unavailable [phone] Barbi Manzo RN Unavailable Unavailable Erasto Root MD Unavailable Cristofer Michelle MD Unavailable Vivien Blanchard MD Unavailable Sapna Hernandez MD Unavailable LoVivien williamson MD Unavailable Virgie Lobato PA-C Unavailable Teetee Velazquez PA-C Unavailable Teetee Velazquez PA-C Unavailable [phone] Cora Shah RN Unavailable [phone] Brad Mayer DO Unavailable [phone] Mary Garcia MD Primary Care Provider Cristal Cooper RN Unavailable Shannon Rowland PA-C Unavailable [phone], LD Unavailabl e Mary Garcia MD Unavailable Melonie Caro [facility] Unavailable Federico Linda MD Unavailable [phone] Melonie Caro [facility] Unavailable +[phone] Virgie Lobato PA-C Unavailable +[phone] Barry Ybarra MD Unavailable [phone] Barry Ybarra MD Unavailable [phone] Encounter Details Date Type Department Care Team (Late Contact Info) Description 01/10/2019 MyC Medical Advice [address] [place] [address] Social History Tobacco Use Types Packs/Day Years Used Date Smoking Tobacco: Never Smokeless Tobacco: Never Alcohol Use Standard Drinks/Week Comments No 0 (1 standard drink = 0.6 oz pur e alcohol) PHQ-2 Answer Date Recorded PHQ-2 Score 2 06/21/2018 Comments No Sex and Gender Information Value Date Recorded Sex Assigned at Female 07/18/2020 1:16 PM BUNDLING MACHINE OPERATOR Legal Sex Female 3:23 AM BUNDLING MACHINE OPERATOR Gender Identity Female 07/18/2020 1:16 PM BUNDLING MACHINE OPERATOR Sexual Orientation Straight 07/18/2020 1: 16 PM BUNDLING MACHINE OPERATOR 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 Not on file Not on file documented as of this encounter Plan of Treatment Upcoming Encounters Date Type Department Care Team (Late Contact Info) Description 11/16/2024 1:00 PM CDT Allied Health/Nurse Visit [facility] Urology [address] [address] Lucero Britt PA-C [address] [place] [address] 11/16/2024 2:45 PM CDT Office Visit [facility] Urology [address] [address] Vivien Blanchard MD 420 [facility] 394 [place] [address] 11/20/2024 3:30 PM CDT Office Visit [facility] [address] [place] [address] [place] [address] [place], [place] [address] 11/22/2024 9:15 AM CDT Office Visit [facility] Heart [facility] [address] [facility] [address] [place] [phone] Federico Linda MD 6995 [facility] [address] [place], [place] [address] 11/30/2024 10:30 AM CDT Lab [facility] Laboratory [address] [place] [phone] 12/06/2024 10:10 AM CDT Office Visit [facility] 6525 [facility] 200 [place] [address] Virgie Lobato, PA-C 909 [place] [address] 12/28/2024 11:00 AM CDT Office Visit [facility] 2945 [facility] 200 [place] [phone] Barry Ybarra MD 2945 [facility] 200 [place] [address] 01/26/2025 11:30 AM CDT Office Visit [address] [phone] [place] [address] [place] [address] documented as of this encounter Goals Goal Patient Goal Type Associated Problems Recent Progress Patient-Stated? Author Problem Solving General On track( 9:24 AM BUNDLING MACHINE OPERATOR) Yes Sheryl Stringer RD Note: [...] Out COVID-19 2021 2021 04/25/2021 12:41 PM BUNDLING MACHINE OPERATOR Rule Out COVID-19 06/14/2022 06/14/2022 06/14/2022 11:30 AM BUNDLING MACHINE OPERATOR Rule Out COVID-19 07/03/2022 07/03/2022 07/04/2022 12:27 AM BUNDLING MACHINE OPERATOR Rule Out COVID-19 04/01/2024 04/01/2024 04/01/2024 10:07 PM CDT ESBL 07/05/2024 08/24/2024 Rule Out COVID-19 07/16/2024 07/16/2024 07/16/2024 11:04 PM BUNDLING MACHINE OPERATOR Rule Out COVID-19 09/01/2024 09/01/2024 09/01/2024 2:05 AM CDT Rule Out COVID-19 09/21/2024 09/21/2024 09/21/2024 3:25 PM CDT Assessment Noted Time PHQ-9 Depression Total Score: 6 08/09/19 19 8:45 AM BUNDLING MACHINE OPERATOR documented as of this encounter Care Teams Personnel Research Scientist Relationship Specialty Start Date End Date Ruth Ann Munoz MD [address] [place] [address] PCP - General Family Practice 08/31/18 04/13/19 Flynn Ruiz MD [place] [address] [place], [place] [address] PCP - General Family Practice 04/14/19 05/18/20 Trina Carbajal PAAnthonyC 6405 [facility] [address] [place] [address] PCP - General Family Medicine 05/19/20 04/10/24 [place] [address] [place] [address] PCP - General Family Medicine 04/11/[address] [place], [place] [address] Transport Nurse Dietitian, Registered 11/03/17 Ruth Ann Munoz MD [place] [address] [place], [place] [address] Assigned PCP 12/25/18 04/22/19 Ruth Ann Munoz MD [place] [address] [place] [address] Assigned PCP 04/30/19 05/27/19 Flynn Ruiz MD [address] [place] [address] Assigned PCP 04/23/19 04/29/19 Flynn Ruiz MD [address] [place] [address] Assigned PCP 05/28/19 07/22/19 Mari Funes, JERRY Personal Advocate & Liaison (PAL) 07/27/19 07/30/19 Ruth Ann Munoz MD [place] [address] [place] [address] Assigned PCP 07/23/19 08/12/19 Trina Carbajal PA-C [address] [place], [place] [address] Assigned PCP 08/13/19 07/27/20 Federico Linda MD [address] [place] [address] Assigned Heart and Vascular Provider 03/29/20 Connie Blackwell MD [address] [place] [address] Assigned Endocrinology Provider 07/14/20 12/19/20 Ruth Ann Munoz MD [place] [address] [place] [address] Assigned PCP 07/28/20 08/25/20 Carlos Livingston MD NO INFO AVAILABLE Assigned PCP 08/26/20 08/31/20 Trina Carbajal PA-C [address] [place] [address] Assigned PCP 09/01/20 12/07/20 Carlos Livingston MD NO INFO AVAILABLE Assigned Endocrinology Provider 12/20/20 12/18/22 Carlos Livingston MD NO INFO AVAILABLE Assigned PCP 12/08/20 12/19/20 Trina Carbajal, PA-C 6405 [facility] [address] [place] [address] Assigned PCP 12/20/20 04/28/24 Mari Funes, JERRY Personal Advocate & Liaison (PAL) Nurse 01/24/21 06/12/21 Jc Zavala MD [place] [facility] [place] [address] [place] [address] Hematology & Oncology 08/07/21 Barbi Manzo, JERRY Personal Advocate & Liaison (PAL) Family Medicine 12/24/21 07/08/23 [place] [address] [place] [address] Assigned Musculoskeletal Provider 04/04/22 08/19/23 Cristofer Michelle MD 6 [facility] [address] [place], [place] [address] Gastroenterology 07/28/22 Vivien Blanchard MD [address] [place] [address] [facility] [address] [place], [place] [address] Urology 07/28/22 Sapna Hernandez MD 420 [facility] 394 [place] [address] Assigned Nephrology Provider 07/11/22 09/25/22 Vivien Blanchard MD 420 [facility] 394 [place] [address] Assigned Surgical Provider 07/25/22 06/30/23 Virgie Lobato PA-C [address] [place] [address]35 Assigned Nephrology Provider 09/26/22 03/28/24 Teetee Velazquez PA-C [address] [place] [address] [phone] Physician Patient Scheduler 05/11/23 Teetee Velazquez PA-C [address] [place] [address] 957395 Assigned Surgical Provider 07/01/23 Cora Shah RN Personal Advocate & Liaison (PAL) Nurse 07/09/23 09/29/23 [place] [address] [address] [address] Assigned Musculoskeletal Provider 08/20/23 Cristal Cooper, RN Lead Bran Mixer Primary Care - CC 04/27/2404/08 Shannon Rowland PA-C [address] [place] [address] Assigned PCP 04/29/24 05/28/24 Lanie Foster, RD, LD [address] [place] [address] Registered Dietitian Nutrition 05/15/24 [place] [address] [place] [address] Assigned PCP 05/29/24 Melonie Caro RP [address] [place], [place] [address] Pharmacist Pharmacist 06/05/24 Federico Linda MD [address] [facility] [address] [place] 6[address] Cardiovascular Disease 06/13/24 Melonie Caro [facility] [address] [place], [place] [address] Assigned MTM Pharmacist 06/29/24 Virgie Lobato, PA-C [address] [place] [address] 679925 Assigned Nephrology Provider 07/30/24 Barry Ybarra MD [address] [place] [address] Hospitalist Infectious Diseases 08/31/24 Barry Ybarra MD [address] [place] [address] Assigned Infectious Disease Provider 10/27/24 documented as of this encounter
--- OUTSIDE RECORDS SUMMARY | 2024-11-12 17:27 | XMS_ITS | Encounter Summary ---
Author Organization [facility] Address [address] [place] [address] Care Team Providers Care Audio Visual Aide Name Role Phone Axel Helm MD Primary Care Provider [facility] Primary Care Provider + Flynn Ruiz MD Primary Care Provider Sigifredo Segal MD Primary Care Provider [phone] No Ref-Primary, Physician Primary Care Provider Flynn Ruiz MD Primary Care Provider [phone] No Ref-Primary, Physician Primary Care Provider Sheryl Stringer RD Unavailable Flynn Ruiz MD Primary Care Provider [phone] Sheryl Jaimes MD Primary Care Provider Unavailab le Flynn Ruiz MD Unavailable [facility] Primary Care Provider No Ref-Primary, Physician Primary [...] [phone] Trina Carbajal-C Primary Care Provider [phone] Connie Blackwell MD Unavailable [phone] Ruth Ann Munoz MD Unavailable + Carlos Livingston MD Unavailable Jelena vailable Trina Carbajal-C Unavailable [phone] Carlos Livingston MD Unavailable Jelena vailable Carlos Livingston MD Unavailable Jelena vailable Trina Carbajal-C Unavailable [phone] Mari Funes RN Unavailable Unavailable Jc Zavala MD Unavailable [phone] Barbi Manzo RN Unavailable Unavailable Erasto Root MD Unavailable Cristofer Michelle MD Unavailable [phone] Vivien Blanchard MD Unavailable [phone] Sapna Hernandez MD Unavailable Vivien Blanchard MD Unavailable Virgie Lobato PA-C Unavailable [phone] Teetee Velazquez PA-C Unavailable Teetee Velazquez PA-C Unavailable Cora Shah RN Unavailable [phone] Brad Mayer DO Unavailable [phone] Mary Garcia MD Primary Care Provider Cristal Cooper RN Unavailable Shannon Rowland PA-C Unavailable [phone], LD Unavailabl e Mary Garcia MD Unavailable Melonie Caro [facility] Unavailable Federico Linda MD Unavailable Melonie Caro [facility] Unavailable Virgie viramontes PA-C Unavailable [phone] Barry Ybarra MD Unavailable Barry Ybarra MD Unavailable [phone] Reason for Visit * Reason Onset Date Comments MyChart Communication 10/01/2006 refill mul tiple meds Encounter Details Date Type Department Care Team (Late st Contact Info) Description 09/30/2006 MyC [facility] [address] [place] [address] Axel Helm MD [address] [place] [address] MyChart Communication (refill multiple meds) Social History Tobacco Use Types Packs/Day Years Used Date Smoking Tobacco: Never Alcohol Use Standard Drinks/Week Comments No 0 (1 standard drink = 0.6 oz pur e alcohol) Comments No Sex and Gender Information Value Date Recorded Sex Assigned at Female 07/18/2020 1:16 PM THIOKOL OPERATOR Legal Sex Female 3:23 AM THIOKOL OPERATOR Gender Identity Female 07/18/2020 1:16 PM THIOKOL OPERATOR Sexual Orientation Straight 07/18/2020 1: 16 PM THIOKOL OPERATOR 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 Not on file Not on file documented as of this encounter Miscellaneous Notes * Telephone Encounter - Meño October - 10/01/2006 9:59 AM CDT Patient requesting refill per My Chart last OV 08/18/06 BP 110/66 last labs 07/01/06 LDL 105, A1C 7.6 Jaskaran Syed, RN unable to refill med due to A1C outside SO protocolMD authorization required * Telephone Encounter - Meño October - 10/01/2006 9:54 AM CDTMessage [email or web address] Original authorizing provider: Axel Live would like a refill of the following medications: AVANDIA 4 MG OR TABS [Axel Helm MD] METFORMIN HCL# 500 MG OR SR 24HR [Axel Helm MD] PAXIL 40 MG OR TABS [Axle Helm MD] ESTRACE 1 MG OR TABS [Axel Helm MD] LISINOPRIL-HCTZ 25-20 MG OR TABS [Axel Helm MD] Preferred pharmacy: [facility] Comment: please send to [facility] on [address] in [place] documented in this encounter Plan of Treatment Upcoming Encounters Date Type Department Care Team (Late st Contact Info) Description 11/16/2024 1:00 PM CDT Allied Health/Nurse Visit [facility] [address] 4th [place] [address] Lucero Britt PA-C [address] [place] [address] [phone] 11/16/2024 2:45 PM CDT Office Visit [facility] [place] [address] [facility] 4th [place] [phone] Vivien Blanchard MD [address] [facility] [address] [place] [address] 11/20/2024 3:30 PM CDT Office Visit [facility] [address] [place] [phone] [place] [address] [place] [address] 11/22/2024 9:15 AM CDT Office Visit [facility] [address] [facility] [address] [place] [phone] Federico Linda MD [address] [facility] [address] [place] [address] 11/30/2024 10:[address] [facility] [address] [place] [phone] 12/06/2024 10:10 AM CDT Office Visit [facility] [place] [facility] [address] [facility] 200 [place] [phone] Virgie Lobato PA-C 909 [place] [address] 12/28/2024 11:00 AM CDT Office Visit [facility] [address] [facility] 200 [place] [address] [place] [address] [place] [address] 200 [place] [address] 01/26/2025 11:30 AM CDT Office Visit [facility] [address] [place] [address] [place] [address] [place] [address] documented as of this encounter Visit Diagnoses Diagnosis Depressive disorder, not elsewhere classified Need for prophylactic hormone replacement therapy (postmenopausal) Unspecified essential hypertension DIABETES UNCOMPL ADULT-TYPE II Type II or unspecified type diabetes mellitus without mention of complication, not stated as uncontrolled documented in this encounter Additional Health Concerns Infection Onset Date Last Indicated Resolved Time Rule Out COVID-19 03/08/2021 03/08/2021 03/09/2021 1:42 AM CDT Rule Out C-difficile 03/10/2021 03/10/2021 5:50 PM CDT Rule Out COVID-19 2021 2021 04/25/2021 12:41 PM THIOKOL OPERATOR Rule Out COVID-19 06/14/2022 06/14/2022 06/14/2022 11:30 AM THIOKOL OPERATOR Rule Out COVID-19 07/03/2022 07/03/2022 07/04/2022 12:27 AM THIOKOL OPERATOR Rule Out COVID-19 04/01/2024 04/01/2024 04/01/2024 10:07 PM CDT ESBL 07/05/2024 08/24/2024 Rule Out COVID-19 07/16/2024 07/16/2024 07/16/2024 11:04 PM THIOKOL OPERATOR Rule Out COVID-19 09/01/2024 09/01/2024 09/01/2024 2:05 AM CDT Rule Out COVID-19 09/21/2024 09/21/2024 09/21/2024 3:25 PM CDT documented as of this encounter Care Teams Audio Visual Aide Relationship Specialty Start Date End Date Axel Helm MD [address] [facility] [address] [place] [address] PCP - General 07/21/02 05/11/11 [facility] PCP - General 05/12/11 08/24/11 Flynn Ruiz MD PCP - General Family Practice 08/25/11 07/14/16 Sigifredo Segal MD [facility] [address] [place] [phone] PCP - General Family Practice 07/15/16 10/13/16 No Ref-Primary, Physician PCP - General 10/14/16 03/14/17 Flynn Ruiz MD PCP - General Family Practice 03/15/17 11/02/17 No Ref-Primary, Physician PCP - General 11/03/17 12/07/17 Flynn Ruiz MD PCP - General Family Practice 12/08/17 07/07/18 Sheryl Jaimes MD [facility] [address] [place] [address] [place] [address] PCP - General Family Practice 07/08/18 08/02/18 Flynn Ruiz MD [address] [place] [address] PCP - Assigned PCP 07/10/18 08/09/18 [facility] [id number] [place] [address] PCP - General 08/03/18 08/04/18 No Ref-Primary, Physician PCP - General 08/05/18 08/30/18 [place] [address] [place] [address] PCP - General Family Practice 08/31/18 04/13/19 Flynn Ruiz MD [place] [address] [place] [address] PCP - General Family Practice 04/14/19 05/18/20 Trina Carbajal, PAAnthonyC [address] [facility] [address] [place] [address] PCP - General Family Medicine 05/19/20 04/10/24 [place] [address] [place] [address] PCP - General Family Medicine 04/11/[address] [place] [address] Solvent Recoverer Dietitian, Registered 11/03/17 Flynn Ruiz MD [address] [place] [place] [address] Assigned PCP 04/24/18 12/24/18 Ruth Ann Munoz MD [place] [address] [place] [address] Assigned PCP 12/25/18 04/22/19 Ruth Ann Munozn, MD [facility] [address] [place] [address] Assigned PCP 04/30/19 05/27/19 Flynn Ruiz MD [address] [place] [address] Assigned PCP 04/23/19 04/29/19 Flynn Ruiz MD [address] [place] [address] Assigned PCP 05/28/19 07/22/19 Mari Funes, JERRY Personal Advocate & Liaison (PAL) 07/27/19 07/30/19 Ruth Ann Munoz MD [facility] [address] [place] [address] Assigned PCP 07/23/19 08/12/19 Trina Carbajal PA-C [address] [place] [address] Assigned PCP 08/13/19 07/27/20 Federico Linda MD [address] [facility] [address] [place] [address] Assigned Heart and Vascular Provider 03/29/20 Connie [place] MD [address] [place], [place] [address] Assigned Endocrinology Provider 07/14/20 12/19/20 Ruth Ann Munoz MD [place] [address] [facility] [address] [place] [address] Assigned PCP 07/28/20 08/25/20 Carlos Livingston MD NO INFO AVAILABLE Assigned PCP 08/26/20 08/31/20 Trina Carbajal PA-C [address] [place] [address] Assigned PCP 09/01/20 12/07/20 Carlos Livingston MD NO INFO AVAILABLE Assigned Endocrinology Provider 12/20/20 12/18/22 Carlos Livingston MD NO INFO AVAILABLE Assigned PCP 12/08/20 12/19/20 Trina Carbajal PA-C [address] [place] [address] Assigned PCP 12/20/20 04/28/24 Mari Funes, JERRY Personal Advocate & Liaison (PAL) Nurse 01/24/21 06/12/21 Jc Zavala MD [facility] [address] [place] [address] Hematology & Oncology 08/07/21 Barbi Manzo, JERRY Personal Advocate & Liaison (PAL) Family Medicine 12/24/21 07/08/23 [place] [address] [place] [address] Assigned Musculoskeletal Provider 04/04/22 08/19/23 Cristofer Michelle MD 6 [facility] [place] [address] Gastroenterology 07/28/22 Vivien Blanchard MD [address] [place] [address] [address] [place] [address] Urology 07/28/22 Sapna Hernandez MD [address] [place] [address] 394 [place] [address] Assigned Nephrology Provider 07/11/22 09/25/22 Vivien Blanchard MD [address] [place] [address] 406735 Assigned Surgical Provider 07/25/22 06/30/23 Virgie Lobato PA-C [address] [place] [address] 143205 Assigned Nephrology Provider 09/26/22 03/28/24 Teetee Velazquez PA-C [address] [place] [address] 007005 Physician Frame Table Operator 05/11/23 Teetee Velazquez PA-C [address] [place] [address] 867585 Assigned Surgical Provider 07/01/23 Cora Shah, JERRY Personal Advocate & Liaison (PAL) Nurse 07/09/23 09/29/23 [place] [address] [address] [place] [address] Assigned Musculoskeletal Provider 08/20/23 Cristal Cooper, RN Lead Pile Driver Primary Care - CC 04/27/2404/08 Shannon Rowland PA-C [address] [place] [address] Assigned PCP 04/29/24 05/28/24 Lanie Foster, RD, LD [address] [place], [place] 639[address] Registered Dietitian Nutrition 05/15/24 [place] [address] [place] [address] Assigned PCP 05/29/24 Melonie Caro RPH [address] [place], [place] 9[address] Pharmacist Pharmacist 06/05/24 Federico Linda MD [address] [facility] [facility] [address] [place] 500[address]45 Cardiovascular Disease 06/13/24 Melonie Caro RPH [address] [place], [place] 902777 Assigned MTM Pharmacist 06/29/24 Virgie Lobato PA-C [address] [place], [place] 807925 Assigned Nephrology Provider 07/30/24 Barry Ybarra MD [address] [place] [address] Hospitalist Infectious Diseases 08/31/24 Barry Ybarra MD [address] [place] [address] Assigned Infectious Disease Provider 10/27/24 documented as of this encounter
--- OUTSIDE RECORDS SUMMARY | 2024-11-12 17:27 | XMS_ITS | Encounter Summary ---
Author Organization [facility] Address [address] [place] [address] Care Team Providers Care Conveyor Console Operator Name Role Phone Sheryl Stringer RD Unavailable [phone] Federico Linda MD Unavailable [phone] Jc Zavala MD Unavailable [phone] Cristofer Michelle MD Unavailable [phone] Vivien Blanchard MD Unavailable [phone] Teetee Velazquez-Javi Unavailable Teetee Velazquez PA-C Unavailable Brad Mayer DO Unavailable [phone] Mary Garcia MD Primary Care Provider Lanie Foster RD, LD Unavailabl e Mary Garcia MD Unavailable Melonie Caro [facility] Unavailable Federico Linda MD Unavailable [phone] VaniaMelonie duarte [facility] Unavailable [phone] Virgie Lobato PA-C Unavailable [phone] Barry Ybarra MD Unavailable [phone] Barry Ybarra MD Unavailable [phone] Reason for Visit * Reason Onset Date Comments MyChart Communication 08/02/2024 Encounter Details Date Type Department Care Team (Latest Contact Info) Description 08/02/2024 MyC Medical Advice [address] [address] Kika Flynn RN MyChart Communication Social History Tobacco Use Types [...] in an overnight usp, or couch-surfing.) Yes 07/17/2024 Are you worried [...] Assigned at Female 07/18/2020 1:16 PM PUBLIC RELATIONS COUNSELOR Legal Sex Female 3:23 AM PUBLIC RELATIONS COUNSELOR Gender Identity Female 07/18/2020 1:16 PM PUBLIC RELATIONS COUNSELOR Sexual Orientation Straight 07/18/2020 1: 16 PM PUBLIC RELATIONS COUNSELOR 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 file Not on file documented as of this encounter Plan of Treatment Upcoming Encounters Date Type Department Care Team (Late st Contact Info) Description 11/16/2024 1:00 PM CDT Allied Health/Nurse Visit [facility] Urology [address] [address] Lucero Britt PA-C 500 [place], [place] [address] 11/16/2024 2:45 PM CDT Office Visit [facility]rology [address] [address] Vivien Blanchard MD [address] [facility] 394 [place], [place] [address] 11/20/2024 3:30 PM CDT Office Visit [address] [place] [address] [place] [address] [place] [address] 11/22/2024 9:15 AM CDT Office Visit [facility] [address] [facility] [address] [place] [address] Federico Linda MD [address] [facility] [address] [place] [address] 11/30/2024 10:30 AM CDT Lab [facility] [address] [place] [address] 12/06/2024 10:10 AM CDT Office Visit [facility] [address] [facility] 200 [place] [address] Virgie Lobato, PA-C [address] [place] [address] 12/28/2024 11:00 AM CDT Office Visit [address] [phone] Barry Ybarra MD [address] [place] [address] 01/26/2025 11:30 AM CDT Office Visit [address] [phone] [place] [address] [place] [address] documented as of this encounter Goals Goal Patient Goal Type Associated Problems Recent Progress Patient-Stated? Author Problem Solving General On track( 019 9:24 AM PUBLIC RELATIONS COUNSELOR) Yes Sheryl Stringer RD Note: My [...] Score: 3 05/02/20 24 1:39 PM PUBLIC RELATIONS COUNSELOR documented as of this encounter Care Teams Conveyor Console Operator Relationship Specialty [place] [address] [place] [address] PCP - General Family Medicine 04/11/[address] [place] [id number] Activities Manager Dietitian, Registered 11/03/17 Federico Linda MD [address] [facility] [address] [place] [address] Assigned Heart and Vascular Provider 03/29/20 Jc Zavala MD [facility] [address] [place] [address] Hematology & Oncology 08/07/21 Cristofer Michelle MD [facility] [address] [place] [address] Gastroenterology 07/28/22 Vivien Blanchard MD [address] [place] [address] [address] [place], [place] 43[address] Urology 07/28/22 Teetee Velazquez PA-C [address] [place] [address] 742905 Physician Pearl Stringer 05/11/23 Teetee Velazquez PA-C [address] [place] [address] 538565 Assigned Surgical Provider 07/01/23 [place] [address] [address], [facility] [address] [place] [address] Assigned Musculoskeletal Provider 08/20/23 Lanie Foster, RD, LD [address] [place] [id number] Registered Dietitian Nutrition 05/15/24 [place] [address] [place] [address] Assigned PCP 05/29/24 Melonie Caro [facility] [address] [place], [place] [address] Pharmacist Pharmacist 06/05/24 Federico Linda MD [address] [facility] [address] [place] MD [id number] Cardiovascular Disease 06/13/24 Melonie Caro RPH [address] [place] [address] Assigned MTM Pharmacist 06/29/24 Virgie Lobato PA-C [address] [place] [address] Assigned Nephrology Provider 07/30/24 Barry Ybarra MD [address] [place] [address] [address] [place] [address] Hospitalist Infectious Diseases 08/31/24 Barry Ybarra MD [address] [place] [address] [address] [place] [address] Assigned Infectious Disease Provider 10/27/24 documented as of this encounter
--- OUTSIDE RECORDS SUMMARY | 2024-11-12 17:27 | XMS_ITS | Encounter Summary ---
Author Organization [facility] Address [address] [place] [address] Care Team Providers Care Beehive Kiln Charcoal Burner Name Role Phone Sheryl Stringer ELI Unavailable [phone] Ruth Ann Munoz MD Primary Care Prov ider Ruth Ann Munoz MD Unavailable + Flynn Ruiz MD Primary Care Provider [phone] Ruth Ann Munoz MD Unavailable + Flynn Ruiz MD Unavailable [phone] Flynn Ruiz MD Unavailable [phone] Mari Funes RN Unavailable Unavailable Ruth Ann Munoz MD Unavailable + Trina Carbajal PA-C Unavailable [phone] Federico Linda MD Unavailable +[phone] Solomon, Trina N PA-C Primary Care Provider [phone] Connie Blackwell MD Unavailable Ruth Ann Munoz MD Unavailable + Carlos Livingston MD Unavailable Jelena vailable Trina Carbajal PA-C Unavailable [phone] Carlos Livingston MD Unavailable Jelena vailable Carlos Livingston MD Unavailable Jelena vailable Trina Carbajal PA-C Unavailable [phone] Mari Funes RN Unavailable Unavailable Jc Zavala MD Unavailable [phone] Barbi Manzo RN Unavailable Unavailable Erasto Root MD Unavailable Cristofer Michelle MD Unavailable Vivien Blanchard MD Unavailable Sapna Hernandez MD Unavailable LoVivien williamson MD Unavailable Virgie Lobato PA-C Unavailable Teetee Velazquez PA-C Unavailable Teetee Velazquez PA-C Unavailable [phone] Cora Shah RN Unavailable [phone] Brad Mayer DO Unavailable [phone] Mary Garcia MD Primary Care Provider Cristal Cooper RN Unavailable Shannon Rowland PA-C Unavailable [phone], LD Unavailabl e Mary Garcia MD Unavailable Melonie Caro [facility] Unavailable Federico Linda MD Unavailable [phone] Melonie Caro [facility] Unavailable [phone] Virgie Lobato PA-C Unavailable [phone] Barry Ybarra MD Unavailable [phone] Barry Ybarra MD Unavailable +[phone] Encounter Details Date Type Department Care Team (Late Contact Info) Description 01/08/2019 MyC Medical Advice [address] [place] [address] Social History Tobacco Use Types Packs/Day Years Used Date Smoking Tobacco: Never Smokeless Tobacco: Never Alcohol Use Standard Drinks/Week Comments No 0 (1 standard drink = 0.6 oz pur e alcohol) PHQ-2 Answer Date Recorded PHQ-2 Score 2 06/21/2018 Comments No Sex and Gender Information Value Date Recorded Sex Assigned at Female 07/18/2020 1:16 PM COPS Legal Sex Female 3:23 AM COPS Gender Identity Female 07/18/2020 1:16 PM COPS Sexual Orientation Straight 07/18/2020 1: 16 PM COPS 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 Urology [address] [address] Lucero Britt PA-C [address] [place] [address] 11/16/2024 2:45 PM CDT Office Visit [facility]rology [address] [address] Vivien Blanchard MD [address] [facility] 394 [place] [address] 11/20/2024 3:30 PM CDT Office Visit [facility] [address] [place] [phone] [place] [address] [place], [place] [address] 11/22/2024 9:15 AM CDT Office [facility] Heart [facility] [place] [address] [facility] [address] [place] [phone] Federico Linda MD 0655 [facility] [address] [place], [place] [address] 11/30/2024 10:30 AM CDT Lab [facility] [address] [place] [phone] 12/06/2024 10:10 AM CDT Office Visit [facility] 6525 [facility] 200 [place] [phone] Virgie Lobato, PA-C 909 [place] [address] 12/28/2024 11:00 AM CDT Office Visit [facility] 29[address] [facility] 200 [place] [phone] Barry Ybarra MD [address] [facility] 200 [place] [address] 01/26/2025 11:30 AM CDT Office Visit [address] [phone] [place] [address] [place] [address] documented as of this encounter Goals Goal Patient Goal Type Associated Problems Recent Progress Patient-Stated? Author Problem Solving General On track( 9:24 AM COPS) Yes Sheryl Stringer RD Note: My Goal: [...] Out COVID-19 2021 2021 04/25/2021 12:41 PM COPS Rule Out COVID-19 06/14/2022 06/14/2022 06/14/2022 11:30 AM COPS Rule Out COVID-19 07/03/2022 07/03/2022 07/04/2022 12:27 AM COPS Rule Out COVID-19 04/01/2024 04/01/2024 04/01/2024 10:07 PM CDT ESBL 07/05/2024 08/24/2024 Rule Out COVID-19 07/16/2024 07/16/2024 07/16/2024 11:04 PM COPS Rule Out COVID-19 09/01/2024 09/01/2024 09/01/2024 2:05 AM CDT Rule Out COVID-19 09/21/2024 09/21/2024 09/21/2024 3:25 PM CDT Assessment Noted Time PHQ-9 Depression Total Score: 6 08/09/19 19 8:45 AM COPS documented as of this encounter Care Teams Beehive Kiln Charcoal Burner Relationship Specialty Start Date End Date Ruth Ann Munoz MD [address] [place] [address] PCP - General Family Practice 08/31/18 04/13/19 Flynn Ruiz MD [place] [address] [place], [place] [address] PCP - General Family Practice 04/14/19 05/18/20 Trina Carbajal PAAnthonyC 6405 [facility] [address] [place] [address] PCP - General Family Medicine 05/19/20 04/10/24 [place] [address] [place] [address] PCP - General Family Medicine 04/11/[address] [place], [place] [address] Supervisor Electronics Testing Dietitian, Registered 11/03/17 Ruth Ann Munoz MD [place] [address] [place], [place] [address] Assigned PCP 12/25/18 04/22/19 Ruth Ann Munoz MD [place] [address] [place] [address] Assigned PCP 04/30/19 05/27/19 Flynn Ruiz MD [address] [place] [address] Assigned PCP 04/23/19 04/29/19 Flynn Ruiz MD [address] [place] [address] Assigned PCP 05/28/19 07/22/19 Mari Funes, JERRY Personal Advocate & Liaison (PAL) 07/27/19 07/30/19 Ruth Ann Munoz MD [place] [address] [place] [address] Assigned PCP 07/23/19 08/12/19 Trina Carbajal PA-C [address] [place], [place] [address] Assigned PCP 08/13/19 07/27/20 Federico Linda MD [address] [place] [address] Assigned Heart and Vascular Provider 03/29/20 Connie Blackwell MD [address] [place] [address] Assigned Endocrinology Provider 07/14/20 12/19/20 Ruth Ann Munoz MD [place] [address] [place] [address] Assigned PCP 07/28/20 08/25/20 Carlos Livingston MD NO INFO AVAILABLE Assigned PCP 08/26/20 08/31/20 Tirna Carbajal PA-C [address] [place] [address] Assigned PCP 09/01/20 12/07/20 Carlos Livingston MD NO INFO AVAILABLE Assigned Endocrinology Provider 12/20/20 12/18/22 Carlos Livingston MD NO INFO AVAILABLE Assigned PCP 12/08/20 12/19/20 Trina Carbajal, PA-C 6405 [facility] [address] [place] [address] Assigned PCP 12/20/20 04/28/24 Mari Funes, JERRY Personal Advocate & Liaison (PAL) Nurse 01/24/21 06/12/21 Jc Zavala MD [facility] [place] [address] [place] [address] Hematology & Oncology 08/07/21 Barbi Manzo, JERRY Personal Advocate & Liaison (PAL) Family Medicine 12/24/21 07/08/23 [place] [address] [place] [address] Assigned Musculoskeletal Provider 04/04/22 08/19/23 Cristofer Michelle MD 6 [facility] 1E [place], [place] [address] Gastroenterology 07/28/22 Vivien Blanchard MD [address] [place] [address] [facility] [address] [place], [place] [address] Urology 07/28/22 Sapna Hernandez MD 420 [facility] 394 [place] [address] Assigned Nephrology Provider 07/11/22 09/25/22 Vivien Blanchard MD [address] [facility] [address] [place] [address] Assigned Surgical Provider 07/25/22 06/30/23 Virgie Lobato PA-C [address] [place] [address] 793435 Assigned Nephrology Provider 09/26/22 03/28/24 Teetee Velazquez PA-C [address] [place] [address] 333945 Physician Mold Tooler 05/11/23 Teetee Velazquez PA-C [address] [place] [address] 057655 Assigned Surgical Provider 07/01/23 Cora Shah RN Personal Advocate & Liaison (PAL) Nurse 07/09/23 09/29/23 [place] [address] [address] [address] Assigned Musculoskeletal Provider 08/20/23 Cristal Cooper, RN Lead Medical Imaging Director Primary Care - CC 04/27/2404/08 Shannon Rowland PA-C [address] [place] [address] Assigned PCP 04/29/24 05/28/24 Lanie Foster, RD, LD [address] [place] [address] Registered Dietitian Nutrition 05/15/24 [place] [address] [place] [address] Assigned PCP 05/29/24 Melonie Caro RP [address] [place], [place] [address] Pharmacist Pharmacist 06/05/24 Federico Linda MD [address] [facility] [address] [place] [address] Cardiovascular Disease 06/13/24 Melonie Caro [facility] [address] [place], [place] 74[address] Assigned MTM Pharmacist 06/29/24 Virgie Lobato, PA-C [address] [place] [address] 350885 Assigned Nephrology Provider 07/30/24 Barry Ybarra MD [address] [place] [address] Hospitalist Infectious Diseases 08/31/24 Barry Ybarra MD [address] [place] [address] Assigned Infectious Disease Provider 10/27/24 documented as of this encounter
--- OUTSIDE RECORDS SUMMARY | 2024-11-12 17:27 | XMS_ITS | Encounter Summary ---
Author Organization [facility] Address [address] [place] [address] Care Team Providers Care Sales Performance Manager Name Role Phone Sheryl Stringer ELI Unavailable [phone] Ruth Ann Munoz MD Primary Care Prov ider Ruth Ann Munoz MD Unavailable + Flynn Ruiz MD Primary Care Provider [phone] Ruth Ann Munoz MD Unavailable + Flynn Ruiz MD Unavailable [phone] Flynn Ruiz MD Unavailable [phone] Mari Funes RN Unavailable Unavailable Ruth Ann Munoz MD Unavailable + Trina Carbajal PA-C Unavailable [phone] Federico Linda MD Unavailable [phone] Solomon, Trina N PA-C Primary Care Provider [phone] Connie Blackwell MD Unavailable Ruth Ann Munoz MD Unavailable + Carlos Livingston MD Unavailable Jelena vailable Trina Carbajal PA-C Unavailable [phone] Carlos Livingston MD Unavailable Jelena vailable Carlos Livingston MD Unavailable Jelena vailable Trina Carbajal PA-C Unavailable [phone] Mari Funes RN Unavailable Unavailable Jc Zavala MD Unavailable [phone] Barbi Manzo RN Unavailable Unavailable Erasto Root MD Unavailable Cristofer Michelle MD Unavailable Vivien Blanchard MD Unavailable Sapna Hernandez MD Unavailable LoVivien williamson MD Unavailable Virgie Lobato PA-C Unavailable Teetee Velazquez PA-C Unavailable Teetee Velazquez PA-C Unavailable [phone] Cora Shah RN Unavailable [phone] Brad Mayer DO Unavailable [phone] Mary Garcia MD Primary Care Provider Cristal Cooper RN Unavailable Shannon Rowland PA-C Unavailable [phone], LD Unavailabl e Mary Garcia MD Unavailable [facility] Unavailable [phone] Federico Linda MD Unavailable [phone] [facility] Unavailable [phone] Virgie Lobato PA-C Unavailable [phone] Barry Ybarra MD Unavailable [phone] Barry Ybarra MD Unavailable [phone] Reason for Visit * Reason Onset Date Comments MyChart Communication 03/15/2019 Encounter Details Date Type Department Care Team (Latest Contact Info) Description 03/15/2019 MyC Medical Advice [address] [address] Ruth Ann Munoz MD [facility] [address] [place] [address] MyChart Communication Social History Tobacco Use Types Packs/Day Years Used Date Smoking Tobacco: Never Smokeless Tobacco: Never Alcohol Use Standard Drinks/Week Comments No 0 (1 standard drink = 0.6 oz pur e alcohol) PHQ-2 Answer Date Recorded PHQ-2 Score 2 06/21/2018 Comments No Sex and Gender Information Value Date Recorded Sex Assigned at Female 07/18/2020 1:16 PM LIVE TRUCK TECHNICIAN Legal Sex Female 3:23 AM LIVE TRUCK TECHNICIAN Gender Identity Female 07/18/2020 1:16 PM LIVE TRUCK TECHNICIAN Sexual Orientation Straight 07/18/2020 1: 16 PM LIVE TRUCK TECHNICIAN 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 Not on file Not on file documented as of this encounter Plan of Treatment Upcoming Encounters Date Type Department Care Team (Late st Contact Info) Description 11/16/2024 1:00 PM CDT Allied Health/Nurse Visit [facility] [place] Urology [place] [address] [facility] 4th [place] [address] Lucero Britt PA-C 500 [place], [place] 7[address] 11/16/2024 2:45 PM CDT Office Visit [facility] [place] Urology [facility] 909 [facility] 4th [place] [phone] Vivien Blanchard MD 420 [facility] 394 [place] [address] 11/20/2024 3:30 PM CDT Office Visit [facility] [address] [place] [phone] [place] [address] [place] [address] 11/22/2024 9:15 AM CDT Office Visit [facility] [place] Heart [facility] [address] [facility] [address] [place] [phone] Federico Linda MD 6408 [facility] [address] [place], [place] [address] 11/30/2024 10:[address] [facility] [address] [place] [phone] 12/06/2024 10:10 AM CDT Office Visit [facility] [place] Specialty [facility] 6525 [facility] 200 [place] [phone] Virgie Lobato, PA-C 909 [place] [address] 12/28/2024 11:00 AM CDT Office Visit [facility] 2945 [facility] [address] [place] [address] [place] [address] [place] [address] 200 [place] [address] 01/26/2025 11:30 AM CDT Office Visit [address] [place] [address] [place] [address] [place] [address] documented as of this encounter Goals Goal Patient Goal Type Associated Problems Recent Progress Patient-Stated? Author Problem Solving General On track( 9:24 AM LIVE TRUCK TECHNICIAN) Yes Sheryl Stringer RD Note: My [...] Out COVID-19 2021 2021 04/25/2021 12:41 PM LIVE TRUCK TECHNICIAN Rule Out COVID-19 06/14/2022 06/14/2022 06/14/2022 11:30 AM LIVE TRUCK TECHNICIAN Rule Out COVID-19 07/03/2022 07/03/2022 07/04/2022 12:27 AM LIVE TRUCK TECHNICIAN Rule Out COVID-19 04/01/2024 04/01/2024 04/01/2024 10:07 PM CDT ESBL 07/05/2024 08/24/2024 Rule Out COVID-19 07/16/2024 07/16/2024 07/16/2024 11:04 PM LIVE TRUCK TECHNICIAN Rule Out COVID-19 09/01/2024 09/01/2024 09/01/2024 2:05 AM CDT Rule Out COVID-19 09/21/2024 09/21/2024 09/21/2024 3:25 PM CDT Assessment Noted Time PHQ-9 Depression Total Score: 6 08/09/19 19 8:45 AM LIVE TRUCK TECHNICIAN documented as of this encounter Care Teams Sales Performance Manager Relationship Specialty Start Date End Date Ruth Ann Munoz MD [address] [place] [address] PCP - General Family Practice 08/31/18 04/13/19 Flynn Ruiz MD [place] [address] [employer] [address] [place] [address] PCP - General Family Practice 04/14/19 05/18/20 Trina Carbajal PA-C 6405 [facility] [address] [place] [address] PCP - General Family Medicine 05/19/20 04/10/24 [place] [address] [place] [address] PCP - General Family Medicine 04/11/[address] [place] [address] Cnc Maintenance Technician Dietitian, Registered 11/03/17 Ruth Ann Munoz MD [place] [address] [employer] [address] [place] [address] Assigned PCP 12/25/18 04/22/19 Ruth Ann Munoz MD [place] [address] [place] [address] Assigned PCP 04/30/19 05/27/19 Flynn Ruiz MD [address] [place] [address] Assigned PCP 04/23/19 04/29/19 Flynn Ruiz MD [address] [place] [address] Assigned PCP 05/28/19 07/22/19 Mari Funes, JERRY Personal Advocate & Liaison (PAL) 07/27/19 07/30/19 Ruth Ann Munoz MD [place] [address] [place] [address] Assigned PCP 07/23/19 08/12/19 Trina Carbajal PAAnthonyC [address] [place], [place] [address] Assigned PCP 08/13/19 07/27/20 Federico Linda MD [address] [facility] [address] [place] 906735 Assigned Heart and Vascular Provider 03/29/20 Connie Blackwell MD [address] [place], [place] [address] Assigned Endocrinology Provider 07/14/20 12/19/20 Ruth Ann Munoz MD [place] [address] [place] [address] Assigned PCP 07/28/20 08/25/20 Carlos Livingston MD NO INFO AVAILABLE Assigned PCP 08/26/20 08/31/20 Trina Carbajal PA-C [address] [place] [address] Assigned PCP 09/01/20 12/07/20 Carlos Livingston MD NO INFO AVAILABLE Assigned Endocrinology Provider 12/20/20 12/18/22 Carlos Livingston MD NO INFO AVAILABLE Assigned PCP 12/08/20 12/19/20 Trina Carbajal PA-C [address] [place] [address] Assigned PCP 12/20/20 04/28/24 Mari Funes, JERRY Personal Advocate & Liaison (PAL) Nurse 01/24/21 06/12/21 Jc Zavala MD [place] [facility] [place] [address] [place], [place] [address] Hematology & Oncology 08/07/21 Barbi Manzo, JERRY Personal Advocate & Liaison (PAL) Family Medicine 12/24/21 07/08/23 [place] [address] [address] [place], [place] 7[address] Assigned Musculoskeletal Provider 04/04/22 08/19/23 Cristofer Michelle MD [address] [facility] [place] [address] Gastroenterology 07/28/22 Vivien Blanchard MD 420 [facility] [address] [place] [address] Urology 07/28/22 Sapna Hernandez MD [address] [place] [address] [id number] Assigned Nephrology Provider 07/11/22 09/25/22 Vivien Blanchard MD [address] [place] [address] 365445 Assigned Surgical Provider 07/25/22 06/30/23 Virgie Lobato PA-C [address] [place] [address] 179835 Assigned Nephrology Provider 09/26/22 03/28/24 Teetee eVlazquez PA-C [address] [place] [address] Physician Tire Inspector 05/11/23 Teetee Velazquez PA-C [address] [place] [address] 176285 Assigned Surgical Provider 07/01/23 Cora Shah RN Personal Advocate & Liaison (PAL) Nurse 07/09/23 09/29/23 [place] [address] [address] 539827 Assigned Musculoskeletal Provider 08/20/23 Cristal Cooper, JERRY Lead Anesthesiology Medical Doctor Primary Care - CC 04/27/2404/08 Shannon Rowland PA-C [address] [facility] [place] [address] Assigned PCP 04/29/24 05/28/24 Lanie Foster, RD, LD [address] [place] [place] 0[address] Registered Dietitian Nutrition 05/15/24 [place] [address] [place] [address] Assigned PCP 05/29/24 [facility] [address] [place], [place] [address] Pharmacist Pharmacist 06/05/24 Federico Linda MD [address] [place], [place] [address] Cardiovascular Disease 06/13/24 Melonie Car[facility] [address] [place] [address] Assigned MTM Pharmacist 06/29/24 Virgie Lobato PA-C [address] [place] [address] Assigned Nephrology Provider 07/30/24 Barry Ybarra MD [address] [place] [address] Hospitalist Infectious Diseases 08/31/24 Barry Ybarra MD [address] [address] Assigned Infectious Disease Provider 10/27/24 documented as of this encounter
--- OUTSIDE RECORDS SUMMARY | 2024-11-12 17:27 | XMS_ITS | Encounter Summary ---
Author Organization [place] Address [address] [place] [address] Care Team Providers Care Mud Analysis Operator Name Role Phone Axel Helm MD Primary Care Provider [facility] Primary Care Provider + Flynn Ruiz MD Primary Care Provider Sigifredo Segal MD Primary Care Provider [phone] No Ref-Primary, Physician Primary Care Provider Flynn Ruiz MD Primary Care Provider [phone] No Ref-Primary, Physician Primary Care Provider Sheryl Stringer RD Unavailable Flynn Ruiz MD Primary Care Provider [phone] Sheryl Jaimes MD Primary Care Provider Unavailab le Flynn Ruiz MD Unavailable [facility] Primary Care Provider No Ref-Primary, Physician [...] [phone] Trina Carbajal-C Primary Care Provider [phone] Connie Blackwell MD Unavailable [phone] Ruth Ann Munoz MD Unavailable + Carlos Livingston MD Unavailable Jelena vailable Trina Carbajal-C Unavailable [phone] Carlos Liivngston MD Unavailable Jelena vailable Carlos Livingston MD Unavailable Jelena vailable Trina Carbajal-C Unavailable [phone] Mari Funes RN Unavailable Unavailable Jc Zavala MD Unavailable [phone] Barbi Manzo RN Unavailable Unavailable Erasto Root MD Unavailable Cristofer Michelle MD Unavailable [phone] Vivien Blanchard MD Unavailable [phone] Sapna Hernandez MD Unavailable Vivien Blanchard MD Unavailable [phone] Virgie Lobato PA-C Unavailable [phone] Teetee Velazquez PA-C Unavailable Teetee Velazquez PA-C Unavailable [phone] Cora Shah RN Unavailable [phone] Brad Mayer DO Unavailable [phone] Mary Garcia MD Primary Care Provider [phone] Cristal Cooper RN Unavailable Shannon Rowland PA-C Unavailable [phone], LD Unavailabl e Mary Garcia MD Unavailable Melonie Caro [facility] Unavailable Federico Linda MD Unavailable Melonie Caro [facility] Unavailable Virgie viramontes PA-C Unavailable [phone] Barry Ybarra MD Unavailable Barry Ybarra MD Unavailable [phone] Reason for Visit * Reason Onset Date Comments MyChart Communication 05/03/2006 medication for cruise Encounter Details Date Type Department Care Team (Late st Contact Info) Description 05/03/2006 MyC Medical Advice [facility] [address] [place] [address] Axel Helm MD [address] [place] [address] MyChart Communication (medication for cruise) Social History Tobacco Use Types Packs/Day Years Used Date Smoking Tobacco: Never Alcohol Use Standard Drinks/Week Comments No 0 (1 standard drink = 0.6 oz pur e alcohol) Comments No Sex and Gender Information Value Date Recorded Sex Assigned at Female 07/18/2020 1:16 PM FIELD INSTALLATION TECHNICIAN Legal Sex Female 3:23 AM FIELD INSTALLATION TECHNICIAN Gender Identity Female 07/18/2020 1:16 PM FIELD INSTALLATION TECHNICIAN Sexual Orientation Straight 07/18/2020 1: 16 PM FIELD INSTALLATION TECHNICIAN 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 Not on file Not on file documented as of this encounter Plan of Treatment Upcoming Encounters Date Type Department Care Team (Late st Contact Info) Description 11/16/2024 1:00 PM CDT Allied Health/Nurse Visit [facility] Urology [address] [address] Lucero Britt PA-C 500 [place], [place] [address] 11/16/2024 2:45 PM CDT Office Visit [facility]rology [address] [phone] Vivien Blanchard MD 420 [facility] 394 [place], [place] [phone] 11/20/2024 3:30 PM CDT Office Visit [address] [phone] Mary Garcia MD [address] [place] [address] 11/22/2024 9:15 AM CDT Office Visit [facility] [address] [facility] [address] [place] [phone] Federico Linda MD [address] [facility] [address] [place] [address] 11/30/2024 10:[address] [facility] [address] [place] [address] 12/06/2024 10:10 AM CDT Office Visit [facility] 65[address] [facility] 200 [place] [phone] Virgie Lobato, PA-C [address] [place] [address] 12/28/2024 11:00 AM CDT Office Visit [facility] [address] [place] [phone] Barry Yabrra MD [address] [place] [address] 01/26/2025 11:30 AM CDT Office Visit [facility] [address] [place] [address] [place] [address] [place] [address] documented as of this encounter Visit Diagnoses Diagnosis Motion sickness Infectious diarrhea(009.2) Infectious diarrhea documented in this encounter Additional Health Concerns Infection Onset Date Last Indicated Resolved Time Rule Out COVID-19 03/08/2021 03/08/2021 03/09/2021 1:42 AM CDT Rule Out C-difficile 03/10/2021 03/10/2021 021 5:50 PM CDT Rule Out COVID-19 2021 2021 04/25/2021 12:41 PM FIELD INSTALLATION TECHNICIAN Rule Out COVID-19 06/14/2022 06/14/2022 06/14/2022 11:30 AM FIELD INSTALLATION TECHNICIAN Rule Out COVID-19 07/03/2022 07/03/2022 07/04/2022 12:27 AM FIELD INSTALLATION TECHNICIAN Rule Out COVID-19 04/01/2024 04/01/2024 04/01/2024 10:07 PM CDT ESBL 07/05/2024 08/24/2024 Rule Out COVID-19 07/16/2024 07/16/2024 07/16/2024 11:04 PM FIELD INSTALLATION TECHNICIAN Rule Out COVID-19 09/01/2024 09/01/2024 09/01/2024 2:05 AM CDT Rule Out COVID-19 09/21/2024 09/21/2024 09/21/2024 3:25 PM CDT documented as of this encounter Care Teams Mud Analysis Operator Relationship Specialty Start Date End Date Axel Helm MD [address] [facility] 160 [place] [address] PCP - General 07/21/02 05/11/11 [facility] PCP - General 05/12/11 08/24/11 Flynn Ruiz MD PCP - General Family Practice 08/25/11 07/14/[address] [facility] [address] [place] [phone] PCP - General Family Practice 07/15/16 10/13/16 No Ref-Primary, Physician PCP - General 10/14/16 03/14/17 Flynn Ruiz MD PCP - General Family Practice 03/15/17 11/02/17 No Ref-Primary, Physician PCP - General 11/03/17 12/07/17 Flynn Ruiz MD PCP - General Family Practice 12/08/17 07/07/18 Sheryl Jaimes MD [address] [place] [address] PCP - General Family Practice 07/08/18 08/02/18 Flynn Ruiz MD [address] [place] [address] PCP - Assigned PCP 07/10/18 08/09/18 [facility] [address] [place], [place] [phone] PCP - General 08/03/18 08/04/18 No Ref-Primary, Physician PCP - General 08/05/18 08/30/18 [place] [address] [place], [place] [phone] PCP - General Family Practice 08/31/18 04/13/19 Flynn Ruiz MD [place] [address] [facility] 207 [place] [address] PCP - General Family Practice 04/14/19 05/18/20 Trina Carbajal PA-C [address] [facility] [address] [place] [address] PCP - General Family Medicine 05/19/20 04/10/24 [place] [address] [place] [address] PCP - General Family Medicine 04/11/[address] [place] [address] [facility] [place] [address] Graphics Programmer Dietitian, Registered 11/03/17 Flynn Ruiz MD [address] [place] [address] Assigned PCP 04/24/18 12/24/18 Ruth Ann Munoz MD [place] [address] [place], [place] [address]458 Assigned PCP 12/25/18 04/22/19 Ruth Ann Munoz MD [place] [address] [place], [place] [address]408 Assigned PCP 04/30/19 05/27/19 Flynn Ruiz MD [address] [place] [address] Assigned PCP 04/23/19 04/29/19 Flynn Ruiz MD [address] [place] [address] Assigned PCP 05/28/19 07/22/19 Mari Funes, JERRY Personal Advocate & Liaison (PAL) 07/27/19 07/30/19 Ruth Ann Munoz MD [place] [address] [place], [place] [address] Assigned PCP 07/23/19 08/12/19 Trina Carbajal, PAAnthonyC [address] [place] 634[address] Assigned PCP 08/13/19 07/27/20 Federico Linda MD [address] [place] [address] Assigned Heart and Vascular Provider 03/29/20 Connie Blackwell MD [address] [place], [place] [address] Assigned Endocrinology Provider 07/14/20 12/19/20 Ruth Ann Munoz MD [place] [address] [facility] 207 [place] [address] Assigned PCP 07/28/20 08/25/20 Carlos Livingston MD NO INFO AVAILABLE Assigned PCP 08/26/20 08/31/20 Trina Carbajal PA-C [address] [place] [address] Assigned PCP 09/01/20 12/07/20 Carlos Livingston MD NO INFO AVAILABLE Assigned Endocrinology Provider 12/20/20 12/18/22 Carlos Livingston MD NO INFO AVAILABLE Assigned PCP 12/08/20 12/19/20 Trina Carbajal PA-C [address] [place] [address] Assigned PCP 12/20/20 04/28/24 Mari Funes, JERRY Personal Advocate & Liaison (PAL) Nurse 01/24/21 06/12/21 Jc Zavala MD [facility] [address] [place] [address] Hematology & Oncology 08/07/21 Barbi Manzo, RN Personal Advocate & Liaison (PAL) Family Medicine 12/24/21 07/08/23 [place] [address] [address] [facility] [address] [place] [address] Assigned Musculoskeletal Provider 04/04/22 08/19/23 Cristofer Michelle MD [address] [place] [address] 1[address] [place] [address] Gastroenterology 07/28/22 Vivien Blanchard MD 420 [facility] 394 [place] [address] Urology 07/28/22 Sapna Hernandez MD [address] [facility] 394 [place], [place] [address] Assigned Nephrology Provider 07/11/22 09/25/22 Vivien Blanchard MD [address] [place] [address] 394 [place], [place] 3476[address] Assigned Surgical Provider 07/25/22 06/30/23 Virgie Lobato PA-C [address] [place] [address] 935335 Assigned Nephrology Provider 09/26/22 03/28/24 Teetee Velazquez PA-C 909 [place] [address] Physician Director Of Community Services 05/11/23 Teetee Velazquez PAAnthonyC 9 [place] [address] Assigned Surgical Provider 07/01/23 Cora Shah, JERYR Personal Advocate & Liaison (PAL) Nurse 07/09/23 09/29/23 [place] [address] [address] [address] Assigned Musculoskeletal Provider 08/20/23 Cristal Cooper RN Lead Mushroom Farmer Primary Care - CC 04/27/2404/08 Shannon Rowland PA-C [address] [place] [address] Assigned PCP 04/29/24 05/28/24 Lanie Foster, RD, LD [address] [place] 715155 Registered Dietitian Nutrition 05/15/24 [place] [address] [place] [address] Assigned PCP 05/29/24 Melonie Caro RPH [address] [place], [place] [address] Pharmacist Pharmacist 06/05/24 Federico Linda MD [address] [place] [address] Cardiovascular Disease 06/13/24 Melonie Caro [facility] [address] [place] [address] Assigned MTM Pharmacist 06/29/24 Virgie Lobato, PAAnthonyC [address] [place] [address]645 Assigned Nephrology Provider 07/30/24 Barry Ybarra MD [address] [place] [address] Hospitalist Infectious Diseases 08/31/24 Barry Ybarra MD [address] [place] [address] Assigned Infectious Disease Provider 10/27/24 documented as of this encounter
--- OUTSIDE RECORDS SUMMARY | 2024-11-12 17:27 | XMS_ITS | Encounter Summary ---
Author Organization [place] Address [address] [place] [address] Care Team Providers Care Resizer Operator Name Role Phone Sheryl Stringer ELI Unavailable [phone] Ruth Ann Munoz MD Primary Care Prov ider Ruth Ann Munoz MD Unavailable + Flynn Ruiz MD Primary Care Provider [phone] Ruth Ann Munoz MD Unavailable + Flynn Ruiz MD Unavailable [phone] Flynn Ruiz MD Unavailable [phone] Mari Funes RN Unavailable Unavailable Ruth Ann Munoz MD Unavailable + Trina Carbajal PA-C Unavailable [phone] Federico Linda MD Unavailable [phone] Solomon, Trina N PA-C Primary Care Provider [phone] Connie Blackwell MD Unavailable Ruth Ann Munoz MD Unavailable + Carlos Livingston MD Unavailable Jelena vailable Trina Carbajal PA-C Unavailable [phone] Carlos Livingston MD Unavailable Jelena vailable Carlos Livingston MD Unavailable Jelena vailable Trina Carbajal PA-C Unavailable [phone] Mari Funes RN Unavailable Unavailable Jc Zavala MD Unavailable [phone] Barbi Manzo RN Unavailable Unavailable Erasto Root MD Unavailable Cristofer Michelle MD Unavailable Vivien Blanchard MD Unavailable [phone] Sapna Hernandez MD Unavailable LoVivien williamson MD Unavailable Virgie Lobato PA-C Unavailable Teetee Velazquez PA-C Unavailable Teetee Velazquez PA-C Unavailable [phone] Cora Shah RN Unavailable [phone] Brad Mayer DO Unavailable [phone] Mary Garcia MD Primary Care Provider Cristal Cooper RN Unavailable Shannon Rowland PA-C Unavailable [phone], LD Unavailabl e Mary Garcia MD Unavailable Melonie Caro [facility] Unavailable [phone] Federico Linda MD Unavailable [phone] Melonie Caro [facility] Unavailable [phone] Virgie Lobato PA-C Unavailable [phone] Barry Ybarra MD Unavailable [phone] Barry Ybarra MD Unavailable [phone] Encounter Details Date Type Department Care Team (Late Contact Info) Description 02/01/[address] [facility] [address] [facility] [address] [place] [address] [place] [address] Social History Tobacco Use Types Packs/Day Years Used Date Smoking Tobacco: Never Smokeless Tobacco: Never Alcohol Use Standard Drinks/Week Comments No 0 (1 standard drink = 0.6 oz pur e alcohol) PHQ-2 Answer Date Recorded PHQ-2 Score 2 06/21/2018 Comments No Sex and Gender Information Value Date Recorded Sex Assigned at Female 07/18/2020 1:16 PM MARKER DELIVERY Legal Sex Female 3:23 AM MARKER DELIVERY Gender Identity Female 07/18/2020 1:16 PM MARKER DELIVERY Sexual Orientation Straight 07/18/2020 1: 16 PM MARKER DELIVERY 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 Not on file Not on file documented as of this encounter Plan of Treatment Upcoming Encounters Date Type Department Care Team (Late Contact Info) Description 11/16/2024 1:00 PM CDT Allied Health/Nurse Visit [facility] Urology [address] [address] Lucero Britt PA-C 500 [place] [address] 11/16/2024 2:45 PM CDT Office Visit [facility] Urology [address] [address] Vivien Blanchard MD 420 [facility] 394 [place] [address] 11/20/2024 3:30 PM CDT Office Visit [facility] [address] [place] [phone] [place] [address] [place], [place] [address] 11/22/2024 9:15 AM CDT Office Visit [facility] Heart [facility] [address] [facility] [address] [place] [phone] Federico Linda MD [address] [facility] [address] [place], [place] [address] 11/30/2024 10:30 AM CDT Lab [facility] [address] [place] [phone] 12/06/2024 10:10 AM CDT Office Visit [facility] 6525 [facility] 200 [place] [phone] Virgie Lobato, PA-C 909 [place] [address] 12/28/2024 11:00 AM CDT Office Visit [facility] 29[address] [facility] 200 [place] [phone] Barry Ybarra MD 2945 [facility] 200 [place] [address] 01/26/2025 11:30 AM CDT Office Visit [address] [phone] [place] [address] [place] [address] documented as of this encounter Goals Goal Patient Goal Type Associated Problems Recent Progress Patient-Stated? Author Problem Solving General On track( 019 9:24 AM MARKER DELIVERY) Yes Sheryl Stringer RD Note: My Goal: [...] Out COVID-19 2021 2021 04/25/2021 12:41 PM MARKER DELIVERY Rule Out COVID-19 06/14/2022 06/14/2022 06/14/2022 11:30 AM MARKER DELIVERY Rule Out COVID-19 07/03/2022 07/03/2022 07/04/2022 12:27 AM MARKER DELIVERY Rule Out COVID-19 04/01/2024 04/01/2024 04/01/2024 10:07 PM CDT ESBL 07/05/2024 08/24/2024 Rule Out COVID-19 07/16/2024 07/16/2024 07/16/2024 11:04 PM MARKER DELIVERY Rule Out COVID-19 09/01/2024 09/01/2024 09/01/2024 2:05 AM CDT Rule Out COVID-19 09/21/2024 09/21/2024 09/21/2024 3:25 PM CDT Assessment Noted Time PHQ-9 Depression Total Score: 6 08/09/19 19 8:45 AM MARKER DELIVERY documented as of this encounter Care Teams Resizer Operator Relationship Specialty Start Date End Date Ruth Ann Munoz MD [address] [place] [address] PCP - General Family Practice 08/31/18 04/13/19 Flynn Ruiz MD [place] [address] [place], [place] [address] PCP - General Family Practice 04/14/19 05/18/20 Trina Carbajal PA-C [address] [facility] [address] [place] [address] PCP - General Family Medicine 05/19/20 04/10/24 [place] [address] [place] [address] PCP - General Family Medicine 04/11/[address] [place] [address] Flamer Sealer Dietitian, Registered 11/03/17 Ruth Ann Munoz MD [place] [address] [place], [place] [address] Assigned PCP 12/25/18 04/22/19 Ruth Ann Munoz MD [place] [address] [place] [address] Assigned PCP 04/30/19 05/27/19 Flynn Ruiz MD [address] [address] Assigned PCP 04/23/19 04/29/19 Flynn Ruiz MD [address] [place] [address] Assigned PCP 05/28/19 07/22/19 Mari Funes, JERRY Personal Advocate & Liaison (PAL) 07/27/19 07/30/19 Ruth Ann Munoz MD [place] [address] [place] [address] Assigned PCP 07/23/19 08/12/19 Trina Carbajal PA-C [address] [place], [place] [address] Assigned PCP 08/13/19 07/27/20 Federico Linda MD [address] [place] [address] Assigned Heart and Vascular Provider 03/29/20 Connie Blackwell MD [address] [place] [address] Assigned Endocrinology Provider 07/14/20 12/19/20 Ruth Ann Munoz MD [place] [address] [place] [address] Assigned PCP 07/28/20 08/25/20 Carlos Livingston MD NO INFO AVAILABLE Assigned PCP 08/26/20 08/31/20 Trina Carbajal PA-C [address] [place] [address] Assigned PCP 09/01/20 12/07/20 Carlos Livingston MD NO INFO AVAILABLE Assigned Endocrinology Provider 12/20/20 12/18/22 Carlos Livingston MD NO INFO AVAILABLE Assigned PCP 12/08/20 12/19/20 Trina Carbajal, PA-C [address] [facility] [address] [place] [address] Assigned PCP 12/20/20 04/28/24 Mari Funes, JERRY Personal Advocate & Liaison (PAL) Nurse 01/24/21 06/12/21 Jc Zavala MD [facility] [address] [place] [address] Hematology & Oncology 08/07/21 Barbi Manzo, JERRY Personal Advocate & Liaison (PAL) Family Medicine 12/24/21 07/08/23 [place] [address] [place] [address] Assigned Musculoskeletal Provider 04/04/22 08/19/23 Cristofer Michelle MD [facility] 1E [place], [place] [address] Gastroenterology 07/28/22 Vivien Blanchard MD [address] [place] [address] 394 [place], [place] [address] Urology 07/28/22 Sapna Hernandez MD 420 [facility] 394 [place] [address] Assigned Nephrology Provider 07/11/22 09/25/22 Vivien Blanchard MD 420 [facility] 394 [place] [address] Assigned Surgical Provider 07/25/22 06/30/23 Virgie Lobato PA-C [address] [place] [address]305 Assigned Nephrology Provider 09/26/22 03/28/24 Teetee Velazquez PA-C [address] [place] [address] 664255 Physician Manager Diesel 05/11/23 Teetee Velazquez PA-C [address] [place] [address] 613615 Assigned Surgical Provider 07/01/23 Cora Shah RN Personal Advocate & Liaison (PAL) Nurse 07/09/23 09/29/23 [place] [address] [address] [address] Assigned Musculoskeletal Provider 08/20/23 Cristal Cooper, JERRY Lead Coal Handling Supervisor Primary Care - CC 04/27/2404/08 Shannon Rowland PA-C [address] [place] [address] Assigned PCP 04/29/24 05/28/24 Lanie Foster, RD, LD [address] [place] 140985 Registered Dietitian Nutrition 05/15/24 [place] [address] [address] [place], [place] [address] Assigned PCP 05/29/24 Melonie Caro RP [address] [place], [place] [address] Pharmacist Pharmacist 06/05/24 Federico Linda MD [address] [facility] [address] [place] [address] Cardiovascular Disease 06/13/24 Melonie Caro [facility] [address] [place], [place] 422137 Assigned MTM Pharmacist 06/29/24 Virgie Lobato, PA-C [address] [place] [address] 350845 Assigned Nephrology Provider 07/30/24 Barry Ybarra MD [address] [place] [address] Hospitalist Infectious Diseases 08/31/24 Barry Ybarra MD [address] [place] [address] Assigned Infectious Disease Provider 10/27/24 documented as of this encounter
--- OUTSIDE RECORDS SUMMARY | 2024-11-12 17:27 | XMS_ITS | Encounter Summary ---
Author Organization Point Address [address] [place] [address] Care Team Providers Care Apprentice Name Role Phone Sheryl Stringer Kirk BENITEZ Unavailable [phone] Ruth Ann Munoz MD Unavailable + Flynn Ruiz MD Primary Care Provider Ruth Ann Munoz MD Unavailable + Flynn Ruiz MD Unavailable [phone] Flynn Ruiz MD Unavailable [phone] Mari Funes RN Unavailable Unavailable Ruth Ann Mnuoz MD Unavailable + Trina Carbajal PA-C Unavailable [phone] Federico Linda MD Unavailable [phone] Trina Carbajal PA-C Primary Care Provider + [phone] Connie Blackwell MD Unavailable [phone] Ruth Ann Munoz MD Unavailable + Carlos [...] [phone] Vivien Blanchard MD Unavailable [phone] Sapna Hernandez MD Unavailable Vivien Blanchard MD Unavailable [phone] Virgie Lobato PA-C Unavailable [phone] Teetee Velazquez PA-C Unavailable [phone] Teetee Velazquez PA-C Unavailable +[phone] Cora Shah RN Unavailable [phone] Brad Mayer DO Unavailable [phone] Mary Garcia MD Primary Care Provider [phone] Cristal Cooper RN Unavailable Shannon Rowland PA-C Unavailable [phone], LD Unavailabl e Mary Garcia MD Unavailable Melonie Caro [facility] Unavailable Federico Linda MD Unavailable [phone] Melonie Caro [facility] Unavailable [phone] Luis AlfredoChristianoVirgiegavin Escoto PA-C Unavailable Barry Ybarra MD Unavailable [phone] Barry Ybarra MD Unavailable [phone] Encounter Details Date Type Department Care Team (Late st Contact Info) Description 04/21/2019 MyC Medical Advice [address] [address] Flynn Ruiz MD [address] [place] [address] Social History Tobacco Use Types Packs/Day Years Used Date Smoking Tobacco: Never Smokeless Tobacco: Never Alcohol Use Standard Drinks/Week Comments No 0 (1 standard drink = 0.6 oz pur e alcohol) PHQ-2 Answer Date Recorded PHQ-2 Score 2 06/21/2018 Comments No Sex and Gender Information Value Date Recorded Sex Assigned at Female 07/18/2020 1:16 PM WIRE WRAPPER MACHINE OPERATOR Legal Sex Female 3:23 AM WIRE WRAPPER MACHINE OPERATOR Gender Identity Female 07/18/2020 1:16 PM WIRE WRAPPER MACHINE OPERATOR Sexual Orientation Straight 07/18/2020 1: 16 PM WIRE WRAPPER MACHINE OPERATOR 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 Not on file documented as of this encounter Plan of Treatment Upcoming Encounters Date Type Department Care Team (Late st Contact Info) Description 11/16/2024 1:00 PM CDT Allied Health/Nurse Visit [facility] Urology [address] [address] Lucero Britt PA-C [address] [place] [address] 11/16/2024 2:45 PM CDT Office Visit [facility] Urology [address] [address] Vivien Blanchard MD 420 [facility] 394 [place] [address] 11/20/2024 3:30 PM CDT Office Visit [facility] [address] [place] [phone] [place] [address] [place], [place] [phone] 11/22/2024 9:15 AM CDT Office Visit [facility] [address] [facility] [address] [place] [phone] Federico Linda MD [address] [facility] [address] [place], [place] [address] 11/30/2024 10:30 AM CDT Lab [facility] Laboratory [address] [place] [phone] 12/06/2024 10:10 AM CDT Office Visit [facility] [address] [facility] 200 [place] [phone] Virgie Lobato, PA-C [address] [place] [address] 12/28/2024 11:00 AM CDT Office Visit [facility] [address] [place] [phone] Barry Ybarra MD [address] [address] 01/26/2025 11:30 AM CDT Office Visit [address] [phone] [place] [address] [place], [place] [phone] documented as of this encounter Goals Goal Patient Goal Type Associated Problems Recent Progress Patient-Stated? Author Problem Solving General On track( 9:24 AM WIRE WRAPPER MACHINE OPERATOR) Yes Sheryl Stringer RD Note: [...] Out COVID-19 2021 2021 04/25/2021 12:41 PM WIRE WRAPPER MACHINE OPERATOR Rule Out COVID-19 06/14/2022 06/14/2022 06/14/2022 11:30 AM WIRE WRAPPER MACHINE OPERATOR Rule Out COVID-19 07/03/2022 07/03/2022 07/04/2022 12:27 AM WIRE WRAPPER MACHINE OPERATOR Rule Out COVID-19 04/01/2024 04/01/2024 04/01/2024 10:07 PM CDT ESBL 07/05/2024 08/24/2024 Rule Out COVID-19 07/16/2024 07/16/2024 07/16/2024 11:04 PM WIRE WRAPPER MACHINE OPERATOR Rule Out COVID-19 09/01/2024 09/01/2024 09/01/2024 2:05 AM CDT Rule Out COVID-19 09/21/2024 09/21/2024 09/21/2024 3:25 PM CDT Assessment Noted Time PHQ-9 Depression Total Score: 6 08/09/19 19 8:45 AM WIRE WRAPPER MACHINE OPERATOR documented as of this encounter Care Teams Apprentice Relationship Specialty Start Date End Date Flynn Ruiz MD LOCATED WITHIN [facility] [address] [address] PCP - General Family Practice 04/14/19 05/18/20 Trina Carbajal PA-C [address] [facility] [address] [place] [address] PCP - General Family Medicine 05/19/20 04/10/24 [place] [address] [place] [address] PCP - General Family Medicine 04/11/[address] [place] [address] Security Dispatcher Dietitian, Registered 11/03/17 Ruth Ann Munoz MD [address] [address] [place] [address] Assigned PCP 12/25/18 04/22/19 Ruth Ann Munoz MD ARISE [address] [employer] [address] [place] [address] Assigned PCP 04/30/19 05/27/19 Flynn Ruiz MD [address] [place] [address] Assigned PCP 04/23/19 04/29/19 Flynn Ruiz MD [address] [place] [address] Assigned PCP 05/28/19 07/22/19 Mari Funes, JERRY Personal Advocate & Liaison (PAL) 07/27/19 07/30/19 Ruth Ann Munoz MD AR[place] [address] [place] [address] Assigned PCP 07/23/19 08/12/19 Trina Carbajal PA-C [address] [place] [address] Assigned PCP 08/13/19 07/27/20 Federico Linda MD [address] [place] [address] Assigned Heart and Vascular Provider 03/29/20 Connie Blackwell MD [address] [place], [place] [address] Assigned Endocrinology Provider 07/14/20 12/19/20 Ruth Ann Munoz MD [place] [address] [place] [address] Assigned PCP 07/28/20 08/25/20 Carlos Livingston MD NO INFO AVAILABLE Assigned PCP 08/26/20 08/31/20 Trina Carbajal PA-C [address] [place] [address] Assigned PCP 09/01/20 12/07/20 Carlos Livingston MD NO INFO AVAILABLE Assigned Endocrinology Provider 12/20/20 12/18/22 Carlos Livingston MD NO INFO AVAILABLE Assigned PCP 12/08/20 12/19/20 Trina Carbajal, PA-C [address] [facility] [address] [place], [place] [address] Assigned PCP 12/20/20 04/28/24 Mari Funes, JERRY Personal Advocate & Liaison (PAL) Nurse 01/24/21 06/12/21 Jc Zavala MD [facility] [address] [place] [address] Hematology & Oncology 08/07/21 Barbi Manzo RN Personal Advocate & Liaison (PAL) Family Medicine 12/24/21 07/08/23 [place] [address] [place] [address] Assigned Musculoskeletal Provider 04/04/22 08/19/23 Cristofer Michelle MD [address] [place] [address] [address] [place] [address] Gastroenterology 07/28/22 Vivien Blanchard MD [address] [place] [address] Urology 07/28/22 Sapna Hernandez MD [address] [place] [address] Assigned Nephrology Provider 07/11/22 09/25/22 Vivien Blanchard MD [address] [place] [address] [phone] Assigned Surgical Provider 07/25/22 06/30/23 Virgie Lobato PA-C [address] [place] [address] [phone] Assigned Nephrology Provider 09/26/22 03/28/24 Teetee Velazquez PA-C [address] [place] [address] Physician Catering Coordinator 05/11/23 Teetee Velazquez PA-C [address] [place] [address] [phone] Assigned Surgical Provider 07/01/23 Cora Shah RN Personal Advocate & Liaison (PAL) Nurse 07/09/23 09/29/23 [place] [address] [address] Assigned Musculoskeletal Provider 08/20/23 Cristal Cooper RN Lead Security Engineer Primary Care - CC 04/27/2404/08 Shannon Rowland PA-C [address] [place] [address] Assigned PCP 04/29/24 05/28/24 Lanie Foster, RD, LD [address] [place] [address] Registered Dietitian Nutrition 05/15/24 [place] [address] [place] [address] Assigned PCP 05/29/24 Melonie Caro RPH [address] [place] [address] Pharmacist Pharmacist 06/05/24 Federico Linda MD [address] [facility] [address] [place], [place] 2599[address] Cardiovascular Disease 06/13/24 Melonie Caro RPH [address] [place] [address] Assigned MTM Pharmacist 06/29/24 Virgie Lobato, PAAnthonyC [address] [place] [address] Assigned Nephrology Provider 07/30/24 Barry Ybarra MD [address] [place] [address] Hospitalist Infectious Diseases 08/31/24 Barry Ybarra MD [address] [place] [address] Assigned Infectious Disease Provider 10/27/24 documented as of this encounter
--- OUTSIDE RECORDS SUMMARY | 2024-11-12 17:27 | XMS_ITS | Encounter Summary ---
Author Organization [place] Address [address] [place] [address] Care Team Providers Care Electrician Machine Shop Name Role Phone Axel Helm MD Primary Care Provider [facility] Primary Care Provider + Flynn Ruiz MD Primary Care Provider Sigifredo Segal MD Primary Care Provider [phone] No Ref-Primary, Physician Primary Care Provider Flynn Ruiz MD Primary Care Provider [phone] No Ref-Primary, Physician Primary Care Provider Sheryl Stringer RD Unavailable [phone] Flynn Ruiz MD Primary Care Provider [phone] Sheryl Jaimes MD Primary Care Provider Unavailab le Flynn Ruiz MD Unavailable Located Within [facility] Primary Care Provider No Ref-Primary, [...] 5-5000 Trina Carbajal-C Primary Care Provider [phone] Connie Blackwell MD Unavailable [phone] Ruth Ann Munoz MD Unavailable + Carlos Livingston MD Unavailable Jelena vailable Trina Carbajal-C Unavailable [phone] Carlos Livingston MD Unavailable Jelena vailable Carlos Livingston MD Unavailable Jelena vailable Trina Carbajal-C Unavailable [phone] Mari Funes RN Unavailable Unavailable Jc Zavala MD Unavailable [phone] Barbi Manzo RN Unavailable Unavailable Erasto Root MD Unavailable Cristofer Michelle MD Unavailable [phone] Vivien Blanchard MD Unavailable [phone] Sapna Hernandez MD Unavailable Vivien Blanchard MD Unavailable Virgie Lobato PA-C Unavailable [phone] Teetee Velazquez PA-C Unavailable [phone] Teetee Velazquez PA-C Unavailable [phone] Cora Shah RN Unavailable [phone] Brad Mayer DO Unavailable [phone] Mary Garcia MD Primary Care Provider Cristal Cooper RN Unavailable Shannon Rowland PA-C Unavailable [phone], LD Unavailabl e Mary Garcia MD Unavailable Melonie Caro [facility] Unavailable [phone] Federico Linda MD Unavailable Melonie Caro [facility] Unavailable Virgie viramontes PA-C Unavailable [phone] Barry Ybarra MD Unavailable Barry Ybarra MD Unavailable Reason for Visit * Reason Onset Date Comments MyChart Communication 08/04/2006 Encounter Details Date Type Department Care Team (Late st Contact Info) Description 08/03/2006 [facility] [address] [place] [address] Axel Helm MD [address] [place] [address] MyChart Communication Social History Tobacco Use Types Packs/Day Years Used Date Smoking Tobacco: Never Alcohol Use Standard Drinks/Week Comments No 0 (1 standard drink = 0.6 oz pur e alcohol) Comments No Sex and Gender Information Value Date Recorded Sex Assigned at Female 07/18/2020 1:16 PM BELT BUCKLE MAKER Legal Sex Female 3:23 AM BELT BUCKLE MAKER Gender Identity Female 07/18/2020 1:16 PM BELT BUCKLE MAKER Sexual Orientation Straight 07/18/2020 1: 16 PM BELT BUCKLE MAKER 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 Not on file Not on file documented as of this encounter Plan of Treatment Upcoming Encounters Date Type Department Care Team (Late st Contact Info) Description 11/16/2024 1:00 PM CDT Allied Health/Nurse Visit [facility] Urology [address] [place] [address] Lucero Britt PA-C [address] [place], [place] [phone] 11/16/2024 2:45 PM CDT Office Visit [facility] Urology [address] [address] Vivien Blanchard MD 420 [facility] 394 [place] [address] 11/20/2024 3:30 PM CDT Office Visit [facility] [address] [place] [phone] [place] [address] [place] [address] 11/22/2024 9:15 AM CDT Office Visit [facility] Heart [facility] [address] [facility] [address] [place] [address] Federico Linda MD [address] [facility] [address] [place], [place] [address] 11/30/2024 10:30 AM CDT Lab [facility] Laboratory [address] [place] [address] 12/06/2024 10:10 AM CDT Office Visit [facility] [address] [phone] Virgie Lobato PA-C 9 [place] [address] 12/28/2024 11:00 AM CDT Office Visit [address] [address] Barry Ybarra MD [address] [place] [address] 01/26/2025 11:30 AM CDT Office Visit [facility] [address] [place] [phone] [place] [address] [place] [address] documented as of this encounter Visit Diagnoses Not on filedocumented in this encounter Additional Health Concerns Infection Onset Date Last Indicated Resolved Time Rule Out COVID-19 03/08/2021 03/08/2021 03/09/2021 1:42 AM CDT Rule Out C-difficile 03/10/2021 03/10/2021 021 5:50 PM CDT Rule Out COVID-19 2021 2021 04/25/2021 12:41 PM BELT BUCKLE MAKER Rule Out COVID-19 06/14/2022 06/14/2022 06/14/2022 11:30 AM BELT BUCKLE MAKER Rule Out COVID-19 07/03/2022 07/03/2022 07/04/2022 12:27 AM BELT BUCKLE MAKER Rule Out COVID-19 04/01/2024 04/01/2024 04/01/2024 10:07 PM CDT ESBL 07/05/2024 08/24/2024 Rule Out COVID-19 07/16/2024 07/16/2024 07/16/2024 11:04 PM BELT BUCKLE MAKER Rule Out COVID-19 09/01/2024 09/01/2024 09/01/2024 2:05 AM CDT Rule Out COVID-19 09/21/2024 09/21/2024 09/21/2024 3:25 PM CDT documented as of this encounter Care Teams Electrician Machine Shop Relationship Specialty Start Date End Date Axel Helm MD [address] [facility] 160 [place] [address] PCP - General 07/21/02 05/11/11 [facility] PCP - General 05/12/11 08/24/11 Flynn Ruiz MD PCP - General Family Practice 08/25/11 07/14/16 Sigifredo Segal MD [facility] [address] [place] [phone] PCP - General Family Practice 07/15/16 10/13/16 No Ref-Primary, Physician PCP - General 10/14/16 03/14/17 Flynn Ruiz MD PCP - General Family Practice 03/15/17 11/02/17 No Ref-Primary, Physician PCP - General 11/03/17 12/07/17 Flynn Ruiz MD PCP - General Family Practice 12/08/17 07/07/18 Sheryl Jaimes MD [address] [place] [address] PCP - General Family Practice 07/08/18 08/02/18 Flynn Ruiz MD [address] [place] [address] PCP - Assigned PCP 07/10/18 08/09/18 Located Within [facility] [address] [place], [place] [phone] PCP - General 08/03/18 08/04/18 No Ref-Primary, Physician PCP - General 08/05/18 08/30/18 [place] [address] [place], [place] [phone] PCP - General Family Practice 08/31/18 04/13/19 Flynn Ruiz MD ARISE [address] [facility] [address] [place] [address] PCP - General Family Practice 04/14/19 05/18/20 Trina Carbajal PA-C [address] [facility] [address] [place] [address] PCP - General Family Medicine 05/19/20 04/10/24 [place] [address] [facility] [place] [address] PCP - General Family Medicine 04/11/[address] [place] [address] [address] [place] [address] Aircraft Charter Dispatcher Dietitian, Registered 11/03/17 Flynn Ruiz MD [address] [place] [address] Assigned PCP 04/24/18 12/24/18 Ruth Ann Munoz MD [address] [email or web address] [address] [place], [place] [address] Assigned PCP 12/25/18 04/22/19 Ruth Ann Munoz MD [email or web address] [place] [address] Assigned PCP 04/30/19 05/27/19 Flynn Ruiz MD [address] [place] [address] Assigned PCP 04/23/19 04/29/19 Flynn Ruiz MD [address] [place] [address] Assigned PCP 05/28/19 07/22/19 Mari Funes, JERRY Personal Advocate & Liaison (PAL) 07/27/19 07/30/19 Ruth Ann Munoz MD [address] [email or web address] [place] [address] Assigned PCP 07/23/19 08/12/19 Trina Carbajal PA-C [address] [place] [address] Assigned PCP 08/13/19 07/27/20 Federico Linda MD [address] [place] [address] Assigned Heart and Vascular Provider 03/29/20 Connie Blackwell MD [address] [place], [place] 4[address] Assigned Endocrinology Provider 07/14/20 12/19/20 Ruth Ann Munoz MD [address] [address] [facility] [address] [place] [address] Assigned PCP 07/28/20 08/25/20 Carlos Livingston MD NO INFO AVAILABLE Assigned PCP 08/26/20 08/31/20 Trina Carbajal PA-C [address] [place] [address] Assigned PCP 09/01/20 12/07/20 Carlos Livingston MD NO INFO AVAILABLE Assigned Endocrinology Provider 12/20/20 12/18/22 Carlos Livingston MD NO INFO AVAILABLE Assigned PCP 12/08/20 12/19/20 Trina Carbajal PA-C [address] [place] [address] Assigned PCP 12/20/20 04/28/24 Mari Funes, JERRY Personal Advocate & Liaison (PAL) Nurse 01/24/21 06/12/21 Jc Zavala MD [facility] [address] [place] [address] Hematology & Oncology 08/07/21 Barbi Manzo, JERRY Personal Advocate & Liaison (PAL) Family Medicine 12/24/21 07/08/23 [place] [address] [address] [place] [address] Assigned Musculoskeletal Provider 04/04/22 08/19/23 Cristofer Michelle MD [address] [place] [address] [phone] Gastroenterology 07/28/22 Vivien Blanchard MD [address] [place] [address] [phone] Urology 07/28/22 Sapna Hernandez MD [address] [place] [address] Assigned Nephrology Provider 07/11/22 09/25/22 Vivien Blanchard MD [address] [place] [address] [id number] Assigned Surgical Provider 07/25/22 06/30/23 Vigrie Lobato PA-C [address] [place] [address] Assigned Nephrology Provider 09/26/22 03/28/24 Teetee Velazquez PA-C [address] [place] [address] Physician Manager Financial 05/11/23 Teetee Velazquez PAAnthonyC 909 [place] [address] Assigned Surgical Provider 07/01/23 oCra Shah, JERRY Personal Advocate & Liaison (PAL) Nurse 07/09/23 09/29/23 [place] [address] [address] 147547 Assigned Musculoskeletal Provider 08/20/23 Cristal Cooper RN Lead Machine Operator Hay Stacker Primary Care - CC 04/27/2404/08 Shannon Rowland [place]-C [address] [place] [address] Assigned PCP 04/29/24 05/28/24 Lanie Foster, RD, LD [address] [place] [address] Registered Dietitian Nutrition 05/15/24 [place] [address] [place] [address] Assigned PCP 05/29/24 Melonie Caor RPH [address] [place] [address] Pharmacist Pharmacist 06/05/24 Federico Linda MD [address] [facility] [address] [place] [address] Cardiovascular Disease 06/13/24 Melonie Caro RPH [address] [place] [address] Assigned MTM Pharmacist 06/29/24 Virgie Lobato PAAnthonyC [address] [place] [address] Assigned Nephrology Provider 07/30/24 Barry Ybarra MD [address] [place] [address] Hospitalist Infectious Diseases 08/31/24 Barry Ybarra MD [address] [place] [address] Assigned Infectious Disease Provider 10/27/24 documented as of this encounter
--- OUTSIDE RECORDS SUMMARY | 2024-11-12 17:28 | XMS_ITS | Encounter Summary ---
Author Organization [facility] Address [address] [place] [address] Care Team Providers Care Firepot Operator And Tender Name Role Phone Sheryl Stringer Kirk BENITEZ Unavailable [phone] Federico Linda MD Unavailable [phone] Trina CarbajalC Primary Care Provider Carlos Livingston MD Unavailable Jelena vailable Trina Carbajal PA-C Unavailable [phone] Mari Funes RN Unavailable Unavailable Jc Zavala MD Unavailable [phone] Barbi Manzo RN Unavailable Unavailable Erasto Root MD Unavailable Cristofer Michelle MD Unavailable [phone] Vivien Blanchard MD Unavailable [phone] Sapna Hernandez MD Unavailable Vivien Blanchard MD Unavailable [phone] Virgie LobatoC Unavailable Teetee Velazquez PA-C Unavailable [phone] Teetee Velazquez-C Unavailable [phone] Cora Shah RN Unavailable Brad Mayer Unavailable [phone] Mary Garcia MD Primary Care Provider [phone] Cristal Cooper RN Unavailable Shannon Rowland PA-C Unavailable Lanie Foster RD, LD Unavailabl e Mary Garcia MD Unavailable Melonie Caro [facility] Unavailable Federico Linda MD Unavailable [phone] Melonie Caro [facility] Unavailable Virgie Lobato-C Unavailable [phone] Barry Ybarra MD Unavailable [phone] Barry Ybarra MD Unavailable [phone] Encounter Details Date Type Department Care Team (Late st Contact Info) Description 01/08/2021 [facility] Endocrinology [address] [place] [phone] Carlos Livingston MD NO INFO AVAILABLE Social History Tobacco Use Types Packs/Day Years Used Date Smoking Tobacco: Never Smokeless Tobacco: Never Alcohol Use Standard Drinks/Week Comments No 0 (1 standard drink = 0.6 oz pur e alcohol) PHQ-2 Answer Date Recorded PHQ-2 Score 0 08/23/2020 Comments No Sex and Gender Information Value Date Recorded Sex Assigned at Female 07/18/2020 1:16 PM DIRECTOR GLOBAL Legal Sex Female 3:23 AM DIRECTOR GLOBAL Gender Identity Female 07/18/2020 1:16 PM DIRECTOR GLOBAL Sexual Orientation Straight 07/18/2020 1: 16 PM DIRECTOR GLOBAL 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 Unable to assess 12/30/2020 1:54 PM CDT documented as of this encounter Plan of Treatment Upcoming Encounters Date Type Department Care Team (Late st Contact Info) Description 11/16/2024 1:00 PM CDT Allied Health/Nurse Visit [facility] Urology [address]th [place] [phone] Lucero Britt PA-C [address] [place], [place] [phone] 11/16/2024 2:45 PM CDT Office Visit [facility] Urology [address] [phone] Vivien Blanchard MD 420 [facility] 394 [place], [place] [address] 11/20/2024 3:30 PM CDT Office Visit [facility] [address] [place] [phone] [place] [id number] [place] [address] 11/22/2024 9:15 AM CDT Office Visit [facility] Heart [facility] [address] [facility] [address] [place] [phone] Federico Linda MD 7177 [facility] [address] [place], [place] [address] 11/30/2024 10:30 AM CDT Lab [facility] Laboratory [address] [place] [phone] 12/06/2024 10:10 AM CDT Office Visit [facility] [address] [phone] Virgie Lobato PANilesh 9 [place] [address] 12/28/2024 11:00 AM CDT Office Visit [facility] 2945 [facility] 200 [place] [address] [place] [address] [place] [address] 01/26/2025 11:30 AM CDT Office Visit [facility] [address] [place] [phone] [place] [address] [place] [address] documented as of this encounter Goals Goal Patient Goal Type Associated Problems Recent Progress Patient-Stated? Author Problem Solving General On track( 9:24 AM DIRECTOR GLOBAL) Yes Sheryl Stringer RD Note: My Goal: [...] Out COVID-19 2021 2021 04/25/2021 12:41 PM DIRECTOR GLOBAL Rule Out COVID-19 06/14/2022 06/14/2022 06/14/2022 11:30 AM DIRECTOR GLOBAL Rule Out COVID-19 07/03/2022 07/03/2022 07/04/2022 12:27 AM DIRECTOR GLOBAL Rule Out COVID-19 04/01/2024 04/01/2024 04/01/2024 10:07 PM CDT ESBL 07/05/2024 08/24/2024 Rule Out COVID-19 07/16/2024 07/16/2024 07/16/2024 11:04 PM DIRECTOR GLOBAL Rule Out COVID-19 09/01/2024 09/01/2024 09/01/2024 2:05 AM CDT Rule Out COVID-19 09/21/2024 09/21/2024 09/21/2024 3:25 PM CDT Assessment Noted Time PHQ-9 Depression Total Score: 6 08/25/19 7:03 AM CDT documented as of this encounter Care Teams Firepot Operator And Tender Relationship Specialty Start Date End Date Trina Carbajal PA-C [address] [place] [address] PCP - General Family Medicine 05/19/20 04/10/24 [place] [address] [place] [address] PCP - General Family Medicine 04/11/[address] [place] [address] Landscape Architecture Teacher Dietitian, Registered 11/03/17 Federico Linda MD [address] [place] [address] Assigned Heart and Vascular Provider 03/29/20 Carlos Livingston MD NO INFO AVAILABLE Assigned Endocrinology Provider 12/20/20 12/18/22 Trina Carbajal PA-C 6405 [facility] [address] [place] [address] Assigned PCP 12/20/20 04/28/24 Mari Funes, JERRY Personal Advocate & Liaison (PAL) Nurse 01/24/21 06/12/21 Jc Zavala MD [facility] [address] [place] [address] Hematology & Oncology 08/07/21 Barbi Manzo, JERRY Personal Advocate & Liaison (PAL) Family Medicine 12/24/21 07/08/23 [place] [address] [place] [address] [place] [address] Assigned Musculoskeletal Provider 04/04/22 08/19/23 rCistofer Michelle MD [address] [place], [place] [address]B [address] [place] [address] Gastroenterology 07/28/22 Vivien Blanchard MD [address] [place] [address] 394 [place], [place] 879845 Urology 07/28/22 Sapna Hernandez MD [address] [place] [address] 394 [place], [place] [address] Assigned Nephrology Provider 07/11/22 09/25/22 Vivien Blanchard MD [address] [place] [address] 455505 Assigned Surgical Provider 07/25/22 06/30/23 Virgie Lobato PA-C [address] [place] [address] 558565 Assigned Nephrology Provider 09/26/22 03/28/24 Teetee Velazquez PA-C [address] [place] [address] 551365 Physician Carpenter Assembler 05/11/23 Teetee Velazquez PA-C [address] [place] [address] [phone] Assigned Surgical Provider 07/01/23 Cora Shah RN Personal Advocate & Liaison (PAL) Nurse 07/09/23 09/29/23 [place] [address] 0735[address] Assigned Musculoskeletal Provider 08/20/23 Cristal Cooper, JERRY Lead Car Checker Primary Care - CC 04/27/2404/08 Shannon Rowland PA-C [address] [place] [phone] Assigned PCP 04/29/24 05/28/24 Lanie Foster, RD, LD [address] [place] [address] Registered Dietitian Nutrition 05/15/24 [place] [address] [place] [address] Assigned PCP 05/29/24 Melonie Caro Gin [address] [place] [address] Pharmacist Pharmacist 06/05/24 Federico Linda MD 6405 [facility] [address] [place] [address] Cardiovascular Disease 06/13/24 Melonie Caro [facility] [address] [place] [address] Assigned MTM Pharmacist 06/29/24 Virgie Lobato, PA-C [address] [place] [address] Assigned Nephrology Provider 07/30/24 Barry Ybarra MD [address] [place] [address] Hospitalist Infectious Diseases 08/31/24 Barry Ybarra MD [address] [place] [address] Assigned Infectious Disease Provider 10/27/24 documented as of this encounter
--- OUTSIDE RECORDS SUMMARY | 2024-11-12 17:28 | XMS_ITS | Encounter Summary ---
Author Organization [facility] Address [address] [place] [address] Care Team Providers Care Regional Sales Representative Name Role Phone Sheryl Stringer ELI Unavailable [phone] Flynn Ruiz MD Unavailable [phone] Ruth Ann Munoz MD Primary Care Prov ider Ruth Ann Munoz MD Unavailable + Flynn Ruiz MD Primary Care Provider [phone] Ruth Ann Munoz MD Unavailable + Flynn Ruiz MD Unavailable [phone] Flynn Ruiz MD Unavailable [phone] Mari Funes RN Unavailable Unavailable Ruth Ann Munoz MD Unavailable + Trina Carbajal PA-C Unavailable [phone] Federico Linda MD Unavailable [phone] Trina Carbajal PA-C Primary Care Provider [phone] Connie Blackwell MD Unavailable [phone] Ruth Ann Munoz MD Unavailable + Carlos Livingston MD Unavailable Jelena vailable Trina Carbajal-C Unavailable [phone] Carlos Livingston MD Unavailable Jelena vailable aCrlos Livingston MD Unavailable Jelena vailable Trina Carbajal PA-C Unavailable [phone] Mari Funes RN Unavailable Unavailable Jc Zavala MD Unavailable [phone] Barbi Manzo RN Unavailable Unavailable Erasto Root MD Unavailable Cristofer Michelle MD Unavailable [phone] Vivien Blanchard MD Unavailable + [phone] Sapna Hernandez MD Unavailable Vivien Blanchard MD Unavailable [phone] Virgie Lobato PA-C Unavailable [phone] Teetee Velazquez PA-C Unavailable [phone] Teetee Velazquez PA-C Unavailable [phone] Cora Shah RN Unavailable [phone] Brad Mayer DO Unavailable Mary Garcia MD Primary Care Provider [phone] Cristal Cooper RN Unavailable Shannon Rowland PA-C Unavailable [phone], LD Unavailabl e Mary Garcia MD Unavailable Melonie Caro [facility] Unavailable [phone] Federico Linda MD Unavailable [phone] Melonie Caro [facility] Unavailable [phone] Luis Alfredo Virgie Escoto PA-C Unavailable [phone] Barry Ybarra MD Unavailable [phone] Barry Ybarra MD Unavailable [phone] Reason for Visit * Reason Onset Date Comments MyChart Communication 12/03/2018 update all ergic response to lisinopril Encounter Details Date Type Department Care Team (Latest Contact Info) Description 12/03/2018 MyC Medical Advice [address] [address] Ruth Ann Munoz MD [facility] [address] [address] CircalitharAchieve X Communication (update allergic res... 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 file Not on file documented as of this encounter Plan of Treatment Upcoming Encounters Date Type Department Care Team (Late st Contact Info) Description 11/16/2024 1:00 PM CDT Allied Health/Nurse Visit [facility] Urology [place] 0[address]309 [facility] 4th [place] [address] Lucero Britt, SANTOS [address] [place] [address] 11/16/2024 2:45 PM CDT Office Visit [facility] Urology [facility] 909 [facility] 4th [place] [phone] Vivien Blanchard MD 420 [facility] 394 [place], [place] [address] 11/20/2024 3:30 PM CDT Office Visit [facility] [address] [place] [phone] [place] [address] [place], [place] [phone] 11/22/2024 9:15 AM CDT Office Visit [facility] Heart [facility] [address] [facility] [address] [place] [phone] Federico Linda MD 6405 [facility] [address] [place], [place] [address] 11/30/2024 10:[address] [facility] Laboratory [address] [place] [phone] 12/06/2024 10:10 AM CDT Office Visit [facility] Specialty [facility] 6525 [facility] 200 [place] [phone] Virgie Lobato PA-C 909 [place] [address] 12/28/2024 11:00 AM CDT Office Visit [facility] 2945 [facility] 200 [place] [phone] Barry Ybarra MD [address] [place] [address] 200 [place] [address] 01/26/2025 11:30 AM CDT Office Visit [facility] [address] [place] [address] [place] [address] [place] [address] documented as of this encounter Goals Goal Patient Goal Type Associated Problems Recent Progress Patient-Stated? Author Problem Solving General On track( 019 9:24 AM REGULATOR MECHANIC) Yes Sheryl Stringer RD Note: My [...] Out COVID-19 2021 2021 04/25/2021 12:41 PM REGULATOR MECHANIC Rule Out COVID-19 06/14/2022 06/14/2022 06/14/2022 11:30 AM REGULATOR MECHANIC Rule Out COVID-19 07/03/2022 07/03/2022 07/04/2022 12:27 AM REGULATOR MECHANIC Rule Out COVID-19 04/01/2024 04/01/2024 04/01/2024 10:07 PM CDT ESBL 07/05/2024 08/24/2024 Rule Out COVID-19 07/16/2024 07/16/2024 07/16/2024 11:04 PM REGULATOR MECHANIC Rule Out COVID-19 09/01/2024 09/01/2024 09/01/2024 2:05 AM CDT Rule Out COVID-19 09/21/2024 09/21/2024 09/21/2024 3:25 PM CDT Assessment Noted Time PHQ-9 Depression Total Score: 6 08/09/19 8:45 AM REGULATOR MECHANIC documented as of this encounter Care Teams Regional Sales Representative Relationship Specialty Start Date End Date Ruth Ann Munoz MD [address] [place] [address] PCP - General Family Practice 08/31/18 04/13/19 Flynn Ruiz MD [place] [address] [place] [address] PCP - General Family Practice 04/14/19 05/18/20 Trina Carbajal PA-C 6[address] [facility] [address] [place] [address]655 PCP - General Family Medicine 05/19/20 04/10/24 [place] [address] [place] [address] PCP - General Family Medicine 04/11/[address] [place] [address] Senior Ios Developer Dietitian, Registered 11/03/17 Flynn Ruiz MD [address] [place] [address] Assigned PCP 04/24/18 12/24/18 Ruth Ann Munoz MD [place] [address] [place] [address] Assigned PCP 12/25/18 04/22/19 Ruth Ann Munoz MD [place] [address] [place] [address] Assigned PCP 04/30/19 05/27/19 Flynn Ruiz MD [address] [place] [address] Assigned PCP 04/23/19 04/29/19 Flynn Ruiz MD [address] [place] [address] Assigned PCP 05/28/19 07/22/19 Mari Funes RN Personal Advocate & Liaison (PAL) 07/27/19 07/30/19 Ruth Ann Munoz MD [place] [address] [place] [address] Assigned PCP 07/23/19 08/12/19 Trina Carbajal, PAAnthonyC [address] [place] [address] Assigned PCP 08/13/19 07/27/20 Federico Linda MD [address] [place] [address] Assigned Heart and Vascular Provider 03/29/20 Connie Blackwell MD [address] [place] [address] Assigned Endocrinology Provider 07/14/20 12/19/20 HoustonRuth Ann Hewitt MD [place] 7447 [facility] [address] [place] [address] Assigned PCP 07/28/20 08/25/20 Carlos Livingston MD NO INFO AVAILABLE Assigned PCP 08/26/20 08/31/20 Trina Carbajal PA-C [address] [place] [address] Assigned PCP 09/01/20 12/07/20 Carlos Livingston MD NO INFO AVAILABLE Assigned Endocrinology Provider 12/20/20 12/18/22 Carlos Livingston MD NO INFO AVAILABLE Assigned PCP 12/08/20 12/19/20 Trina Carbajal PA-C [address] [place] 231425 Assigned PCP 12/20/20 04/28/24 Mari Funes, JERRY Personal Advocate & Liaison (PAL) Nurse 01/24/21 06/12/21 Jc Zavala MD [facility] [address] [place] [address] Hematology & Oncology 08/07/21 Barbi Manzo, JERRY Personal Advocate & Liaison (PAL) Family Medicine 12/24/21 07/08/23 [place] [address] [place] [address] Assigned Musculoskeletal Provider 04/04/22 08/19/23 Cristofer Michelle MD 6 [facility] [address]E [place], [place] [address] Gastroenterology 07/28/22 Vivien Blanchard MD [address] [place] [address] 460535 Urology 07/28/22 Sapna Hernandez MD [address] 052835 Assigned Nephrology Provider 07/11/22 09/25/22 Vivien Blanchard MD [address] [place] [address] 281525 Assigned Surgical Provider 07/25/22 06/30/23 Virgie Lobato PA-C [address] [place] [address] 759015 Assigned Nephrology Provider 09/26/22 03/28/24 Teetee Velazquez PA-C [address] [place] [address] Physician Drop Press Hand 05/11/23 Teetee Velazquez PA-C [address] [place] [address] 529895 Assigned Surgical Provider 07/01/23 Cora Shah, JERRY Personal Advocate & Liaison (PAL) Nurse 07/09/23 09/29/23 [place] [address] [address] [place] [address] Assigned Musculoskeletal Provider 08/20/23 Cristal Cooper, RN Lead Pre Sales Systems Engineer Primary Care - CC 04/27/2404/08 Shannon Rowland PA-C [address] [place] [phone] Assigned PCP 04/29/24 05/28/24 Lanie Foster, RD, LD [address] [place], [place] 8[address] Registered Dietitian Nutrition 05/15/24 [place] [address] [place] [address] Assigned PCP 05/29/24 Melonie Caro Gin [address] [place] [address] Pharmacist Pharmacist 06/05/24 Federico Linda MD 6405 [facility] [address] [place], [place] 8139[address] Cardiovascular Disease 06/13/24 Melonie Caro [facility] [address] [place], [place] 8[address] Assigned MTM Pharmacist 06/29/24 Virgie Lobato PA-C [address] [place] [address] 755395 Assigned Nephrology Provider 07/30/24 Barry Ybarra MD [address] [place] [address] [phone] Hospitalist Infectious Diseases 08/31/24 Barry Ybarra MD [address] [place] [address] Assigned Infectious Disease Provider 10/27/24 documented as of this encounter
--- OUTSIDE RECORDS SUMMARY | 2024-11-12 17:28 | XMS_ITS | Encounter Summary ---
Author Organization [place] Address [address] [place] [address] Care Team Providers Care Ab Initio Etl Developer Name Role Phone Sheryl Stringer ELI Unavailable [phone] Flynn Ruiz MD Unavailable [phone] Ruth Ann Munoz MD Primary Care Prov ider Ruth Ann Munoz MD Unavailable + Flynn Ruiz MD Primary Care Provider [phone] Ruth Ann Munoz MD Unavailable + Flynn Ruiz MD Unavailable [phone] Flynn Ruiz MD Unavailable +[phone] Mari Funes RN Unavailable Unavailable Ruth Ann Munoz MD Unavailable + Trina Carbajal PA-C Unavailable +[phone] Federico Linda MD Unavailable [phone] Trina Carbajal PA-C Primary Care Provider [phone] Connie Blackwell MD Unavailable [phone] Ruth [...] [phone] Vivien Blanchard MD Unavailable + [phone] Sapna Hernandez MD Unavailable Vivien Blanchard MD Unavailable +[phone] Virgie Lobato PA-C Unavailable +[phone] Teetee Velazquez PA-C Unavailable +[phone] Teetee Velazquez PA-C Unavailable +[phone] Cora Shah RN Unavailable +[phone] Brad Mayer DO Unavailable [phone] Mary Garcia MD Primary Care Provider [phone] Cristal Cooper RN Unavailable Shannon Rowland PA-C Unavailable +[phone], LD Unavailabl e Mary Garcia MD Unavailable Melonie Caro [facility] Unavailable [phone] Federico Linda MD Unavailable +[phone] Melonie Caro [facility] Unavailable [phone] Virgie Lobato PA-C Unavailable +[phone] Barry Ybarra MD Unavailable +[phone] Barry Ybarra MD Unavailable [phone] Encounter Details Date Type Department Care Team (Late Contact Info) Description 12/12/2018 MyC Medical Advice [address] [address] Flynn Ruiz MD [address] [facility] [place] [address] Social History Tobacco Use Types Packs/Day Years Used Date Smoking Tobacco: Never Smokeless Tobacco: Never Alcohol Use Standard Drinks/Week Comments No 0 (1 standard drink = 0.6 oz pur e alcohol) PHQ-2 Answer Date Recorded PHQ-2 Score 2 06/21/2018 Comments No Sex and Gender Information Value Date Recorded Sex Assigned at Female 07/18/2020 1:16 PM PRODUCTION MATERIAL COORDINATOR Legal Sex Female 3:23 AM PRODUCTION MATERIAL COORDINATOR Gender Identity Female 07/18/2020 1:16 PM PRODUCTION MATERIAL COORDINATOR Sexual Orientation Straight 07/18/2020 1: 16 PM PRODUCTION MATERIAL COORDINATOR 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 [address] [place] [phone] [place] [address] [place] [address] 11/22/2024 9:15 AM CDT Office Visit [facility] [address] [facility] [address] [place] [phone] Federico Linda MD 6408 [facility] [address] [place], [place] [address] 11/30/2024 10:30 AM CDT Lab [facility] [address] [place] [phone] 12/06/2024 10:10 AM CDT Office Visit [facility] [address] [phone] Virgie Lobato, PA-C 909 [place] [address] 12/28/2024 11:00 AM CDT Office Visit [facility] 2945 [facility] 200 [place] [phone] [place] [address] [place] [address] 200 [place] [address] 01/26/2025 11:30 AM CDT Office Visit [address] [phone] [place] [address] [address] [place], [place] [phone] documented as of this encounter Goals Goal Patient Goal Type Associated Problems Recent Progress Patient-Stated? Author Problem Solving General On track( 9:24 AM PRODUCTION MATERIAL COORDINATOR) Yes Sheryl Stringer RD Note: My Goal: [...] Out COVID-19 2021 2021 04/25/2021 12:41 PM PRODUCTION MATERIAL COORDINATOR Rule Out COVID-19 06/14/2022 06/14/2022 06/14/2022 11:30 AM PRODUCTION MATERIAL COORDINATOR Rule Out COVID-19 07/03/2022 07/03/2022 07/04/2022 12:27 AM PRODUCTION MATERIAL COORDINATOR Rule Out COVID-19 04/01/2024 04/01/2024 04/01/2024 10:07 PM CDT ESBL 07/05/2024 08/24/2024 Rule Out COVID-19 07/16/2024 07/16/2024 07/16/2024 11:04 PM PRODUCTION MATERIAL COORDINATOR Rule Out COVID-19 09/01/2024 09/01/2024 09/01/2024 2:05 AM CDT Rule Out COVID-19 09/21/2024 09/21/2024 09/21/2024 3:25 PM CDT Assessment Noted Time PHQ-9 Depression Total Score: 6 08/09/19 19 8:45 AM PRODUCTION MATERIAL COORDINATOR documented as of this encounter Care Teams Ab Initio Etl Developer Relationship Specialty Start Date End Date Ruth Ann Munoz MD [address] [place] [address] PCP - General Family Practice 08/31/18 04/13/19 Flynn Ruiz MD [place] [address] [place] [address] PCP - General Family Practice 04/14/19 05/18/20 Trina Carbajal PA-C 6405 [facility] [address] [place] [address] PCP - General Family Medicine 05/19/20 04/10/24 [place] [address] [place], [place] [phone] PCP - General Family Medicine 04/11/[address] [place] [id number] Scenario Writer Dietitian, Registered 11/03/17 Flynn Ruiz MD [address] [place] [address] Assigned PCP 04/24/18 12/24/18 Ruth Ann Munoz MD [place] [address] [place] [id number] Assigned PCP 12/25/18 04/22/19 Ruth Ann Munoz MD [place] [address] [place] 489958 Assigned PCP 04/30/19 05/27/19 Flynn Ruiz MD [address] [place] [address] Assigned PCP 04/23/19 04/29/19 Flynn Ruiz MD [address] [place] [address] Assigned PCP 05/28/19 07/22/19 Mari Funes RN Personal Advocate & Liaison (PAL) 07/27/19 07/30/19 Ruth Ann Munoz MD [facility] [address] [place] [address] Assigned PCP 07/23/19 08/12/19 Trina Carbajal PAAnthonyC [address] [place] [address]35 Assigned PCP 08/13/19 07/27/20 Federico Linda MD [address] [place] [address] Assigned Heart and Vascular Provider 03/29/20 Connie Blackwell MD [address] [place], [place] [address] Assigned Endocrinology Provider 07/14/20 12/19/20 Ruth Ann Munoz MD [place] [address] [place] [address] Assigned PCP 07/28/20 08/25/20 Carlos Livingston MD NO INFO AVAILABLE Assigned PCP 08/26/20 08/31/20 Trina Carbajal PA-C [address] [place] [address] Assigned PCP 09/01/20 12/07/20 Carlos Livingston MD NO INFO AVAILABLE Assigned Endocrinology Provider 12/20/20 12/18/22 Carlos Livingston MD NO INFO AVAILABLE Assigned PCP 12/08/20 12/19/20 Trina Carbajal PA-C [address] [place] [address]75 Assigned PCP 12/20/20 04/28/24 Mari Funes RN Personal Advocate & Liaison (PAL) Nurse 01/24/21 06/12/21 Jc Zavala MD [facility] [address] [facility] 100 [place] [address] Hematology & Oncology 08/07/21 Barbi Manzo, JERRY Personal Advocate & Liaison (PAL) Family Medicine 12/24/21 07/08/23 [place] [address] [address] [place] [address] Assigned Musculoskeletal Provider 04/04/22 08/19/23 Cristofer Michelle MD [address] [place], [place] [address]B [address] [place] [address] Gastroenterology 07/28/22 Vivien Blanchard MD [address] [phone] Urology 07/28/22 Sapna Hernandez MD [address] [place] [address] [phone] Assigned Nephrology Provider 07/11/22 09/25/22 Vivien Blanchard MD [address] [place] [address] [phone] Assigned Surgical Provider 07/25/22 06/30/23 Virgie Lobato PA-C [address] [place] [address] Assigned Nephrology Provider 09/26/22 03/28/24 Teetee Velazquez PA-C [address] [place] [address] Physician Track Production Engineer 05/11/23 Teetee Velazquez PA-C [address] [place] [address] Assigned Surgical Provider 07/01/23 Cora Shah, JERRY Personal Advocate & Liaison (PAL) Nurse 07/09/23 09/29/23 [place] [address] [address] [address] Assigned Musculoskeletal Provider 08/20/23 Cristal Cooper, RN Lead Store Administrative Assistant Primary Care - CC 04/27/2404/08 Shannon Rowland PA-C [address] [place] [address] Assigned PCP 04/29/24 05/28/24 Lanie Foster, RD, LD [address] [place], [place] 77[address] Registered Dietitian Nutrition 05/15/24 [place] [address] [place], [place] 65724[address] Assigned PCP 05/29/24 Melonie Caro [facility] [address] [place], [place] 24[address] Pharmacist Pharmacist 06/05/24 Federico Linda MD 6405 [facility] [address] S [facility] [address] [place] [address] Cardiovascular Disease 06/13/24 Melonie Caro [facility] [address] [place] [address] Assigned MTM Pharmacist 06/29/24 Virgie Lobato PA-C [address] [place] [address] Assigned Nephrology Provider 07/30/24 Barry Ybarra MD [facility] [address] Hospitalist Infectious Diseases 08/31/24 Barry Ybarra MD [facility]5 [facility] [address] [place] [address] Assigned Infectious Disease Provider 10/27/24 documented as of this encounter
--- OUTSIDE RECORDS SUMMARY | 2024-11-12 17:28 | XMS_ITS | Encounter Summary ---
Author Organization [place] Address [address] [place] [address] Care Team Providers Care Research Program Intern Name Role Phone Sheryl Stringer Kirk [place] Unavailable [phone] Federcio Linda MD Unavailable [phone] Trina CarbajalC Primary Care Provider Carlos Livingston MD Unavailable Jelena vailable Trina Carbajal PA-C Unavailable [phone] Mari Funes RN Unavailable Unavailable Jc Zavala MD Unavailable [phone] Barbi Manzo RN Unavailable Unavailable Erasto Root MD Unavailable Cristofer Michelle MD Unavailable [phone] Vivien Blanchard MD Unavailable [phone] Sapna Hernandez MD Unavailable Vivien Blanchard MD Unavailable [phone] Virgie LoabtoC Unavailable Teetee Velazquez PA-C Unavailable [phone] Teetee Velazquez-C Unavailable [phone] Cora Shah RN Unavailable Brad Mayer Unavailable [phone] Mary Garcia MD Primary Care Provider [phone] Cristal Cooper RN Unavailable Shannon Rowland PA-C Unavailable [phone], LD Unavailabl e Mary Garcia MD Unavailable Melonie Caro [facility] Unavailable Federico Linda MD Unavailable [phone] Melonie Caro [facility] Unavailable Virgie Lobato-C Unavailable [phone] Barry Ybarra MD Unavailable [phone] Barry Ybarra MD Unavailable [phone] Encounter Details Date Type Department Care Team (Late st Contact Info) Description 01/08/2021 [facility] Endocrinology 5[address] [place] [phone] Carlos Livingston MD NO INFO AVAILABLE Social History Tobacco Use Types Packs/Day Years Used Date Smoking Tobacco: Never Smokeless Tobacco: Never Alcohol Use Standard Drinks/Week Comments No 0 (1 standard drink = 0.6 oz pur e alcohol) PHQ-2 Answer Date Recorded PHQ-2 Score 0 08/23/2020 Comments No Sex and Gender Information Value Date Recorded Sex Assigned at Female 07/18/2020 1:16 PM ALIGNER TYPEWRITER Legal Sex Female 3:23 AM ALIGNER TYPEWRITER Gender Identity Female 07/18/2020 1:16 PM ALIGNER TYPEWRITER Sexual Orientation Straight 07/18/2020 1: 16 PM ALIGNER TYPEWRITER 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 Unable to assess 12/30/2020 1:54 PM CDT documented as of this encounter Miscellaneous Notes * Telephone Encounter - Ree Pro - 01/09/2021 11:31 AM CDT LM for patient. Ree Meyer Christian Education Director * Telephone Encounter - Alona Anna RD - 01/08/2021 3:24 PM CDT I do see the referral for CDE, so I will send to our scheduling team to call for scheduling. Alona Anna RD LD CDCES * Telephone Encounter - Ashley Clark RN - 01/08/2021 3:12 PM CDT Forwarding to diabetic ed to assist patient in scheduling or advise if additional information is needed. RN was able to locate referral that was placed on 12/10/20 for diabetic ed that states referral not needed. Ashley Morley RN, BSN Specialty Clinics documented in this encounter Plan of Treatment Upcoming Encounters Date Type Department Care Team (Late st Contact Info) Description 11/16/2024 1:00 PM CDT Allied Health/Nurse Visit [facility] Urology [address] [place] [address] Lucero Britt PA-C 500 [place], [place] [address] 11/16/2024 2:45 PM CDT Office Visit [facility] U[facility] [place] 909 [facility] 4th [place] [phone] Vivien Blanchard MD 420 [facility] 394 [place] [address] 11/20/2024 3:30 PM CDT Office Visit [facility] [address] [place] [phone] [place] [address] [place] [address] 11/22/2024 9:15 AM CDT Office Visit [facility] Heart [facility] [address] [facility] [address] [place] [phone] Federico Linda MD 6409 [facility] [address] [place] [address] 11/30/2024 10:30 AM CDT Lab [facility] [address] [place] [phone] 12/06/2024 10:10 AM CDT Office Visit [facility] Specialty [facility] 6525 [facility] 200 [place] [phone] Virgie Lobato, PA-C 909 [place] [address] 12/28/2024 11:00 AM CDT Office Visit [facility] 2945 [facility] [address] [place] [phone] [place] [address] [place] [address] 200 [place] [address] 01/26/2025 11:30 AM CDT Office Visit [address] [place] [address] [place] [address] [place] [address] documented as of this encounter Goals Goal Patient Goal Type Associated Problems Recent Progress Patient-Stated? Author Problem Solving General On track( 9:24 AM ALIGNER TYPEWRITER) Yes Sheryl Stringer RD Note: My Goal: [...] Out COVID-19 2021 2021 04/25/2021 12:41 PM ALIGNER TYPEWRITER Rule Out COVID-19 06/14/2022 06/14/2022 06/14/2022 11:30 AM ALIGNER TYPEWRITER Rule Out COVID-19 07/03/2022 07/03/2022 07/04/2022 12:27 AM ALIGNER TYPEWRITER Rule Out COVID-19 04/01/2024 04/01/2024 04/01/2024 10:07 PM CDT ESBL 07/05/2024 08/24/2024 Rule Out COVID-19 07/16/2024 07/16/2024 07/16/2024 11:04 PM ALIGNER TYPEWRITER Rule Out COVID-19 09/01/2024 09/01/2024 09/01/2024 2:05 AM CDT Rule Out COVID-19 09/21/2024 09/21/2024 09/21/2024 3:25 PM CDT Assessment Noted Time PHQ-9 Depression Total Score: 6 08/25/19 21 7:03 AM CDT documented as of this encounter Care Teams Research Program Intern Relationship Specialty Start Date End Date Trina Carbajal PA-C [address] [place] [address] PCP - General Family Medicine 05/19/20 04/10/24 [place] [address] [place] [address] PCP - General Family Medicine 04/11/[address] [place] [phone] Security Agent Dietitian, Registered 11/03/17 Federico Linda MD [address] [place] [address] Assigned Heart and Vascular Provider 03/29/20 Carlos Livingston MD NO INFO AVAILABLE Assigned Endocrinology Provider 12/20/20 12/18/22 Trina Carbajal PA-C [address] [place] [address] Assigned PCP 12/20/20 04/28/24 Mari Funes, JERRY Personal Advocate & Liaison (PAL) Nurse 01/24/21 06/12/21 Jc Zavala MD [facility] [address] [place] [address] Hematology & Oncology 08/07/21 Barbi Manzo, JERRY Personal Advocate & Liaison (PAL) Family Medicine 12/24/21 07/08/23 [place] [address] [place] [address] [place] [address] Assigned Musculoskeletal Provider 04/04/22 08/19/23 Cristofer Michelle MD [address] [place], [place] [address] 1[address] [place] [address] Gastroenterology 07/28/22 Vivien Blanchard MD [address] [place] [address] Urology 07/28/22 Sapna Hernandez MD [address] [place] [address] Assigned Nephrology Provider 07/11/22 09/25/22 Vivien Blanchard MD [address] [place] [address] 505015 Assigned Surgical Provider 07/25/22 06/30/23 Virgie Lobato PA-C [address] [place] [address] 218365 Assigned Nephrology Provider 09/26/22 03/28/24 Teetee Velazquez PA-C [address] [place] [address] 994425 Physician Database Administrator 05/11/23 Teetee Velazquez PA-C [address] [place] [address] Assigned Surgical Provider 07/01/23 Cora Shah, JERRY Personal Advocate & Liaison (PAL) Nurse 07/09/23 09/29/23 [place] [address] [address], [facility] 300 [place] [address] Assigned Musculoskeletal Provider 08/20/23 Cristal Cooper RN Lead Tea Bag Machine Tender Primary Care - CC 04/27/2404/08 Shannon Rowland PA-C [address] [place] [phone] Assigned PCP 04/29/24 05/28/24 Lanie Foster, RD, LD [address] [place] [address] Registered Dietitian Nutrition 05/15/24 [place] [address] [place] [address] Assigned PCP 05/29/24 Melonie Caro RPH [address] [place], [place] 76[address] Pharmacist Pharmacist 06/05/24 Federico Linda MD [address] [facility] [address] [place] [id number] Cardiovascular Disease 06/13/24 Melonie Caro R[facility] [address] [place] [address] Assigned MTM Pharmacist 06/29/24 Virgie Lobato PA-C [address] [place] [address] Assigned Nephrology Provider 07/30/24 Barry Ybarra MD [address] [place] [address] Hospitalist Infectious Diseases 08/31/24 Barry Ybarra MD [address] [place] [address] Assigned Infectious Disease Provider 10/27/24 documented as of this encounter
--- OUTSIDE RECORDS SUMMARY | 2024-11-12 17:28 | XMS_ITS | Encounter Summary ---
Author Organization [facility] Address [address] [place] [address] Care Team Providers Care Natural Resource Economist Name Role Phone Sheryl Stringer ELI Unavailable [phone] Flynn Ruiz MD Unavailable [phone] Ruth Ann Munoz MD Primary Care Prov ider Ruth Ann Munzo MD Unavailable + Flynn Ruiz MD Primary Care Provider [phone] Ruth Ann Munoz MD Unavailable + Flynn Ruiz MD Unavailable [phone] Flynn Ruiz MD Unavailable [phone] Mari Funes RN Unavailable Unavailable Ruth Ann Munoz MD Unavailable + Trina Carbajal PA-C Unavailable +[phone] Federico Linda MD Unavailable [phone] Trina Carbajal PA-C Primary Care Provider [phone] Connie Blackwell MD Unavailable [phone] Ruth [...] [phone] Vivien Blanchard MD Unavailable + [phone] Sapna Hernandez MD Unavailable Vivien Blanchard MD Unavailable +[phone] Virgie Lobato PA-C Unavailable +[phone] Teetee Velazquez PA-C Unavailable +[phone] Teetee Velazquez PA-C Unavailable +[phone] Cora Shah RN Unavailable [phone] Brad Mayer DO Unavailable [phone] Mary Garcia MD Primary Care Provider [phone] Cristal Cooper RN Unavailable Shannon Rowland PA-C Unavailable [phone], LD Unavailabl e Mary Garcia MD Unavailable Melonie Caro [facility] Unavailable +[phone] Federico Linda MD Unavailable [phone] Melonie Caro [facility] Unavailable +[phone] ShivamVirgie vasquez Jevon GRAHAM Unavailable [phone] Barry Ybarra MD Unavailable +[phone] Barry Ybarra MD Unavailable +[phone] Encounter Details Date Type Department Care Team (Late st Contact Info) Description 11/21/2018 MyC Medical Advice [address] [place] [address] Sheryl Stringer [address] [place] [address] Social History Tobacco Use Types Packs/Day Years Used Date Smoking Tobacco: Never Smokeless Tobacco: Never Alcohol Use Standard Drinks/Week Comments No 0 (1 standard drink = 0.6 oz pur e alcohol) PHQ-2 Answer Date Recorded PHQ-2 Score 2 06/21/2018 Comments No Sex and Gender Information Value Date Recorded Sex Assigned at Female 07/18/2020 1:16 PM SIFTER AND MILLER Legal Sex Female 3:23 AM SIFTER AND MILLER Gender Identity Female 07/18/2020 1:16 PM [employer]TER [employer] MILLER Sexual Orientation Straight 07/18/2020 1: 16 PM [employer]TER [employer] MILLER 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 Og Dukes Stacker Operator 11/23/18 2:31 PM documented in this encounter Plan of Treatment Upcoming Encounters Date Type Department Care Team (Late st Contact Info) Description 11/16/2024 1:00 PM CDT Allied Health/Nurse Visit [facility] [address] [facility] 4th [place] [phone] Lucero Britt PA-C 500 [place], [place] [address] 11/16/2024 2:45 PM CDT Office Visit [facility] [address] [facility] [address] [place] [address] Vivien Blanchard MD [address] [facility] 394 [place], [place] [phone] 11/20/2024 3:30 PM CDT Office Visit [facility] [address] [place] [phone] [place] [address] [place] [address] 11/22/2024 9:15 AM CDT Office Visit [facility] [address] [facility] [address] [place] [phone] Federico Linda MD [address] [facility] [address] [place], [place] [address] 11/30/2024 10:30 AM CDT Lab [facility] [address] [place] [phone] 12/06/2024 10:10 AM CDT Office Visit [facility] [address] [facility] [address] [place] [phone] Virgie Lobato PAAnthonyC 909 [place], [place] [address] 12/28/2024 11:00 AM CDT Office Visit [address] [place] [address] [place] [address] [place] [address] 200 [place] [address] 01/26/2025 11:30 AM CDT Office Visit [facility] [address] [place] [phone] [place] [address] [place], [place] [phone] documented as of this encounter Goals Goal Patient Goal Type Associated Problems Recent Progress Patient-Stated? Author Problem Solving General On track( 019 9:24 AM SIFTER AND MILLER) Yes Sheryl Stringer RD Note: My Goal: [...] Out COVID-19 2021 2021 04/25/2021 12:41 PM [employer]TER [employer] M[employer]ER Rule Out COVID-19 06/14/2022 06/14/2022 06/14/2022 11:30 AM S[employer]TER [employer] MILLER Rule Out COVID-19 07/03/2022 07/03/2022 07/04/2022 12:27 AM S[employer]TER AND MILLER Rule Out COVID-19 04/01/2024 04/01/2024 04/01/2024 10:07 PM CDT ESBL 07/05/2024 08/24/2024 Rule Out COVID-19 07/16/2024 07/16/2024 07/16/2024 11:04 PM [employer]TER [employer] M[employer]ER Rule Out COVID-19 09/01/2024 09/01/2024 09/01/2024 2:05 AM CDT Rule Out COVID-19 09/21/2024 09/21/2024 09/21/2024 3:25 PM CDT Assessment Noted Time PHQ-9 Depression Total Score: 6 08/09/19 8:45 AM [employer]TER [employer] M[employer]ER documented as of this encounter Care Teams Natural Resource Economist Relationship Specialty Start Date End Date Ruth Ann Munoz MD [address] [place] [address] PCP - General Family Practice 08/31/18 04/13/19 Flynn Ruiz MD [facility] [address] [facility] [address] [place] [address] PCP - General Family Practice 04/14/19 05/18/20 Trina Carbajal PA-C [address] [facility] [address] [place] [address] PCP - General Family Medicine 05/19/20 04/10/24 [place] [address] [place] [address] PCP - General Family Medicine 04/11/[address] [facility] [address] [place] [address] [place] [address] Arts And Crafts Teacher Dietitian, Registered 11/03/17 Flynn Ruiz MD [address] [place] [address] Assigned PCP 04/24/18 12/24/18 Ruth Ann Munoz MD [place] [address] [place] [address] Assigned PCP 12/25/18 04/22/19 Ruth Ann Munoz MD [place] [address] [place] [address] Assigned PCP 04/30/19 05/27/19 Flynn Ruiz MD [address] [place] [address] Assigned PCP 04/23/19 04/29/19 Flynn Ruiz MD [address] [place] [address] Assigned PCP 05/28/19 07/22/19 Mari Funes, JERRY Personal Advocate & Liaison (PAL) 07/27/19 07/30/19 Ruth Ann Munoz MD [place] [address] [place] [address] Assigned PCP 07/23/19 08/12/19 Trina Carbajal PA-C [address] [place] [address] Assigned PCP 08/13/19 07/27/20 Federico Linda MD [address] [place] [address] Assigned Heart and Vascular Provider 03/29/20 Connie Blackwell MD [address] [place] [address] Assigned Endocrinology Provider 07/14/20 12/19/20 Ruth Ann Munoz MD [place] [address] [facility] 207 [place] [address] Assigned PCP 07/28/20 08/25/20 Carlos Livingston MD NO INFO AVAILABLE Assigned PCP 08/26/20 08/31/20 Trina Carbajal PA-C [address] [place] [address] Assigned PCP 09/01/20 12/07/20 Carlos Livingston MD NO INFO AVAILABLE Assigned Endocrinology Provider 12/20/20 12/18/22 Carlos Livingston MD NO INFO AVAILABLE Assigned PCP 12/08/20 12/19/20 Trina Carbajal PA-C [address] [place] [address] Assigned PCP 12/20/20 04/28/24 Mari Funes, JERRY Personal Advocate & Liaison (PAL) Nurse 01/24/21 06/12/21 Jc Zavala MD [facility] [address] [place], [place] [address] Hematology & Oncology 08/07/21 Barbi Manzo, JERRY Personal Advocate & Liaison (PAL) Family Medicine 12/24/21 07/08/23 [place] [address] [place] [address] Assigned Musculoskeletal Provider 04/04/22 08/19/23 Cristofer Michelle MD [address] [place] [place], [place] [address]B [address] [place] [address] Gastroenterology 07/28/22 Vivien Blanchard MD 420 [facility] 394 [place] [address] Urology 07/28/22 Sapna Hernandez MD [address] [facility] 394 [place] [address] Assigned Nephrology Provider 07/11/22 09/25/22 Vivien Blanchard MD [address] [place] [address]94355 Assigned Surgical Provider 07/25/22 06/30/23 Virgie Lobato PA-C [address] [place] [address] Assigned Nephrology Provider 09/26/22 03/28/24 Teetee Velazquez PA-C [address] [place] [address] Physician Videogame Designer 05/11/23 Teetee Velazquez PA-C [address] [place] [address] Assigned Surgical Provider 07/01/23 Cora Shah, JERRY Personal Advocate & Liaison (PAL) Nurse 07/09/23 09/29/23 [place] [address] [place] [address] Assigned Musculoskeletal Provider 08/20/23 Cristal Cooper, JERRY Lead Aerospace Stress Engineer Primary Care - CC 04/27/2404/08 Shannon Rowland PA-C [address] [place] [phone] Assigned PCP 04/29/24 05/28/24 Lanie Foster, RD, LD [address] [place] [address] Registered Dietitian Nutrition 05/15/24 [place] [address] [place] [address] Assigned PCP 05/29/24 Melonie Caro [facility] [address] [place] [address] Pharmacist Pharmacist 06/05/24 Federico Linda MD [address] [place] [address] Cardiovascular Disease 06/13/24 Melonie Caro [facility] [address] [place] [address] Assigned MTM Pharmacist 06/29/24 Virgie Lobato PA-C [address] [place] [address] Assigned Nephrology Provider 07/30/24 Barry Ybarra MD [address] [place] [address] Hospitalist Infectious Diseases 08/31/24 Barry Ybarra MD [address] [place] [address] Assigned Infectious Disease Provider 10/27/24 documented as of this encounter
--- OUTSIDE RECORDS SUMMARY | 2024-11-12 17:28 | XMS_ITS | Encounter Summary ---
Author Organization [facility] Address [address] [place] [address] Care Team Providers Care Secretary To Board Of Commissioners Name Role Phone Sheryl Stringer Kirk BENITEZ Unavailable [phone] Federico Linda MD Unavailable [phone] Trina CarbajalC Primary Care Provider Carlos Livingston MD Unavailable Jelena vailable Trina Carbajal PA-C Unavailable [phone] Mari Funes RN Unavailable Unavailable Jc Zavala MD Unavailable [phone] Barbi Manzo RN Unavailable Unavailable Erasto Root MD Unavailable Cristofer Michelle MD Unavailable [phone] Vivien Blanchard MD Unavailable [phone] Sapna Hernandez MD Unavailable Vivien Blanchard MD Unavailable [phone] Virgie LobatoC Unavailable [phone] Teetee Velazquez-C Unavailable [phone] Teetee Velazquez-C Unavailable [phone] Cora Shah RN Unavailable MorenoBrad Unavailable [phone] Mary Garcia MD Primary Care Provider Cristal Cooper RN Unavailable Shannon Rowland PA-C Unavailable [phone], LD Unavailabl e Mary Garcia MD Unavailable Melonie Caro [facility] Unavailable Federico Linda MD Unavailable [phone] Melonie Caro [facility] Unavailable Virgie LobatoC Unavailable [phone] Barry Ybarra MD Unavailable Barry Ybarra MD Unavailable Reason for Visit * Reason Onset Date Comments Nausea 01/10/2021 Diarrhea 01/10/2021 Encounter Details Date Type Department Care Team (Late st Contact Info) Description 01/10/2021 [facility] Medical Advice [address] [address] Trina Carbajal PA-C [address] [facility] 200 [place] [address] Nausea; Diarrhea Social History Tobacco Use Types Packs/Day Years Used Date Smoking Tobacco: Never Smokeless Tobacco: Never Alcohol Use Standard Drinks/Week Comments No 0 (1 standard drink = 0.6 oz pur e alcohol) PHQ-2 Answer Date Recorded PHQ-2 Score 0 08/23/2020 Comments No Sex and Gender Information Value Date Recorded Sex Assigned at Female 07/18/2020 1:16 PM TUBE TURNER Legal Sex Female 3:23 AM TUBE TURNER Gender Identity Female 07/18/2020 1:16 PM TUBE TURNER Sexual Orientation Straight 07/18/2020 1: 16 PM TUBE TURNER 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 Unable to assess 12/30/2020 1:54 PM CDT documented as of this encounter Miscellaneous Notes * Telephone Encounter - Lindsey Cabrera RN - 01/10/2021 11:42 AM CDT See VideoGenie message below. Her appt is 01/24/21 with Trina. Lindsey Cabrera RN documented in this encounter Plan of Treatment Upcoming Encounters Date Type Department Care Team (Late st Contact Info) Description 11/16/2024 1:00 PM CDT Allied Health/Nurse Visit [facility] Urology [address] [phone] Lucero Britt PA-C 500 [place], [place] [address] 11/16/2024 2:45 PM CDT Office Visit [facility] Urology [address] [phone] Vivien Blanchard MD 420 [facility] 394 [place], [place] [address] 11/20/2024 3:30 PM CDT Office Visit [address] [address] Mary Garcia MD [address] [place] [address] 11/22/2024 9:15 AM CDT Office Visit [facility] Heart [facility] [address] [facility] [address] [place] [phone] Federico Linda MD [address] [facility] [address] [place] [address] 11/30/2024 10:30 AM CDT Lab [facility] [address] [place] [phone] 12/06/2024 10:10 AM CDT Office Visit [facility] 6525 [facility] 200 [place] [phone] Virgie Lobato PA-C [address] [place] [address] 12/28/2024 11:00 AM CDT Office Visit [facility] 2945 [facility] 200 [place] [phone] Barry Ybarra MD 29[address] [facility] 200 [place] [address] 01/26/2025 11:30 AM CDT Office Visit [facility] [address] [place] [address] [place] [address] [place] [address] documented as of this encounter Goals Goal Patient Goal Type Associated Problems Recent Progress Patient-Stated? Author Problem Solving General On track( 019 9:24 AM TUBE TURNER) Yes Sheryl Stringer RD Note: My Goal: [...] Out COVID-19 2021 2021 04/25/2021 12:41 PM TUBE TURNER Rule Out COVID-19 06/14/2022 06/14/2022 06/14/2022 11:30 AM TUBE TURNER Rule Out COVID-19 07/03/2022 07/03/2022 07/04/2022 12:27 AM TUBE TURNER Rule Out COVID-19 04/01/2024 04/01/2024 04/01/2024 10:07 PM CDT ESBL 07/05/2024 08/24/2024 Rule Out COVID-19 07/16/2024 07/16/2024 07/16/2024 11:04 PM TUBE TURNER Rule Out COVID-19 09/01/2024 09/01/2024 09/01/2024 2:05 AM CDT Rule Out COVID-19 09/21/2024 09/21/2024 09/21/2024 3:25 PM CDT Assessment Noted Time PHQ-9 Depression Total Score: 6 08/25/19 21 7:03 AM CDT documented as of this encounter Care Teams Secretary To Board Of Commissioners Relationship Specialty Start Date End Date Trina Carbajal PA-C 6405 [facility] [address] [place] [address] PCP - General Family Medicine 05/19/20 04/10/24 [place] [address] [address] [place] [address] PCP - General Family Medicine 04/11/[address] [place] [address] Lpn Care Manager Dietitian, Registered 11/03/17 Federico Linda MD [address] [place] [address] Assigned Heart and Vascular Provider 03/29/20 Carlos Livingston MD NO INFO AVAILABLE Assigned Endocrinology Provider 12/20/20 12/18/22 Trina Carbajal, PA-C [address] [place] [address] Assigned PCP 12/20/20 04/28/24 Mari Funes, JERRY Personal Advocate & Liaison (PAL) Nurse 01/24/21 06/12/21 Jc Zavala MD [facility] [address] [place] [address] Hematology & Oncology 08/07/21 Barbi Manzo, JERRY Personal Advocate & Liaison (PAL) Family Medicine 12/24/21 07/08/23 [place] [address] [place] [address] Assigned Musculoskeletal Provider 04/04/22 08/19/23 Cristofer Michelle MD 6 [facility] [address] [place], [place] [address] Gastroenterology 07/28/22 Vivien Blanchard MD [address] [place] [address] [address] Urology 07/28/22 Sapna Hernandez MD [address] [place] [address] Assigned Nephrology Provider 07/11/22 09/25/22 Vivien Blanchard MD [address] [place] [address] Assigned Surgical Provider 07/25/22 06/30/23 Virgie Lobato PA-C [address] [place] [address] Assigned Nephrology Provider 09/26/22 03/28/24 Teetee Velazquez PA-C [address] [place] [address] Physician Manager Utility 05/11/23 Teetee Velazquez PA-C [address] [place] [address] Assigned Surgical Provider 07/01/23 Cora Shah RN Personal Advocate & Liaison (PAL) Nurse 07/09/23 09/29/23 [place] [address] [address] [address] Assigned Musculoskeletal Provider 08/20/23 Cristal Cooper, JERRY Lead Professional Caster Primary Care - CC 04/27/2404/08 Shannon Rowland PA-C [address] [facility] [place] [address] Assigned PCP 04/29/24 05/28/24 Lanie Foster, RD, LD [address] [place], [place] [address] Registered Dietitian Nutrition 05/15/24 [place] [address] [place] [address] Assigned PCP 05/29/24 Melonie Caro [facility] [address] [place] [address] Pharmacist Pharmacist 06/05/24 Federico Linda MD [address] [place] [address] Cardiovascular Disease 06/13/24 Melonie Caro [facility] [address] [place] [address] Assigned MTM Pharmacist 06/29/24 Virgie Lobato PA-C 9 [place], [place] [address] Assigned Nephrology Provider 07/30/24 Barry Ybarra MD [address] [address] Hospitalist Infectious Diseases 08/31/24 Barry Ybarra MD [address] [address] Assigned Infectious Disease Provider 10/27/24 documented as of this encounter
--- OUTSIDE RECORDS SUMMARY | 2024-11-12 17:28 | XMS_ITS | Encounter Summary ---
Author Organization [place] Address [address] [place] [address] Care Team Providers Care Freelance Director Name Role Phone Sheryl Stringer ELI Unavailable [phone] Ruth Ann Munoz MD Primary Care Prov ider Ruth Ann Munoz MD Unavailable + Flynn Ruiz MD Primary Care Provider [phone] Ruth Ann Munoz MD Unavailable + Flynn Ruiz MD Unavailable [phone] Flynn Ruiz MD Unavailable [phone] Mari Funes RN Unavailable Unavailable Ruth Ann Munoz MD Unavailable + Trina Carbjaal PA-C Unavailable [phone] Federico Linda MD Unavailable [phone] Solomon, Trina N PA-C Primary Care Provider [phone] Connie Blackwell MD Unavailable Ruth Ann Munoz MD Unavailable + Carlos Livingston MD Unavailable Jelena vailable Trina Carbajal PA-C Unavailable [phone] Carlos Livingston MD Unavailable Jelena vailable Carlos Livingston MD Unavailable Jelena vailable Trina Carbajal PA-C Unavailable [phone] Mari Funes RN Unavailable Unavailable Jc Zavala MD Unavailable [phone] Barbi Manzo RN Unavailable Unavailable Erasto Root MD Unavailable Cristofer Michelle MD Unavailable Vivien Blanchard MD Unavailable Sapna Hernandez MD Unavailable LoVivien williamson MD Unavailable Virgie Lobato PA-C Unavailable Teetee Velazquez PA-C Unavailable Teetee Velazquez PA-C Unavailable [phone] Cora Shah RN Unavailable [phone] Brad Mayer DO Unavailable [phone] Mary Garcia MD Primary Care Provider Cristal Cooper RN Unavailable Shannon Rowland PA-C Unavailable [phone], LD Unavailabl e Mary Garcia MD Unavailable Melonie Caro [facility] Unavailable Federico Linda MD Unavailable [phone] [facility] Unavailable [phone] Virgie Lobato PA-C Unavailable [phone] Barry Ybarra MD Unavailable [phone] Barry Ybarra MD Unavailable [phone] Encounter Details Date Type Department Care Team (Late Contact Info) Description 12/28/2018 MyC Medical Advice [facility] [address] [facility] [address] [place] [address] [place] [address] Social History Tobacco Use Types Packs/Day Years Used Date Smoking Tobacco: Never Smokeless Tobacco: Never Alcohol Use Standard Drinks/Week Comments No 0 (1 standard drink = 0.6 oz pur e alcohol) PHQ-2 Answer Date Recorded PHQ-2 Score 2 06/21/2018 Comments No Sex and Gender Information Value Date Recorded Sex Assigned at Female 07/18/2020 1:16 PM SENIOR GL ACCOUNTANT Legal Sex Female 3:23 AM SENIOR GL ACCOUNTANT Gender Identity Female 07/18/2020 1:16 PM SENIOR GL ACCOUNTANT Sexual Orientation Straight 07/18/2020 1: 16 PM SENIOR GL ACCOUNTANT 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 Not on file Not on file documented as of this encounter Plan of Treatment Upcoming Encounters Date Type Department Care Team (Late Contact Info) Description 11/16/2024 1:00 PM CDT Allied Health/Nurse Visit [facility] Urology [address] [address] Lucero Britt PA-C 500 [place] [address] 11/16/2024 2:45 PM CDT Office Visit [facility] Urology [address] [address] Vivien Blanchard MD [address] [facility] 394 [place] [address] 11/20/2024 3:30 PM CDT Office Visit [facility] [address] [place] [phone] [place] [address] [place], [place] [phone] 11/22/2024 9:15 AM CDT Office Visit [facility] Heart [facility] [address] [facility] [address] [place] [phone] Federico Linda MD [address] [facility] [address] [place], [place] [address] 11/30/2024 10:30 AM CDT Lab [facility] [address] [place] [phone] 12/06/2024 10:10 AM CDT Office Visit [facility] 65[address] [facility] 200 [place] [phone] Virgie Lobato, PA-C 909 [place] [address] 12/28/2024 11:00 AM CDT Office Visit [facility] 29[address] [facility] 200 [place] [phone] Barry Ybarra MD 2945 [facility] 200 [place] [address] 01/26/2025 11:30 AM CDT Office Visit [address] [phone] [place] [address] [place] [address] documented as of this encounter Goals Goal Patient Goal Type Associated Problems Recent Progress Patient-Stated? Author Problem Solving General On track( 019 9:24 AM SENIOR GL ACCOUNTANT) Yes Sheryl Stringer RD Note: My Goal: [...] COVID-19 2021 2021 04/25/2021 12:41 PM SENIOR GL ACCOUNTANT Rule Out COVID-19 06/14/2022 06/14/2022 06/14/2022 11:30 AM SENIOR GL ACCOUNTANT Rule Out COVID-19 07/03/2022 07/03/2022 07/04/2022 12:27 AM SENIOR GL ACCOUNTANT Rule Out COVID-19 04/01/2024 04/01/2024 04/01/2024 10:07 PM CDT ESBL 07/05/2024 08/24/2024 Rule Out COVID-19 07/16/2024 07/16/2024 07/16/2024 11:04 PM SENIOR GL ACCOUNTANT Rule Out COVID-19 09/01/2024 09/01/2024 09/01/2024 2:05 AM CDT Rule Out COVID-19 09/21/2024 09/21/2024 09/21/2024 3:25 PM CDT Assessment Noted Time PHQ-9 Depression Total Score: 6 08/09/19 19 8:45 AM SENIOR GL ACCOUNTANT documented as of this encounter Care Teams Freelance Director Relationship Specialty Start Date End Date Ruth Ann Munoz MD [address] [place] [address] PCP - General Family Practice 08/31/18 04/13/19 Flynn Ruiz MD [place] [address] [place], [place] [address] PCP - General Family Practice 04/14/19 05/18/20 Trina Carbajal PA-C [address] [facility] [address] [place] [address] PCP - General Family Medicine 05/19/20 04/10/24 [place] [address] [place] [address] PCP - General Family Medicine 04/11/[address] [place] [address] Enrollment Eligibility Representative Dietitian, Registered 11/03/17 Ruth Ann Munoz MD [place] [address] [place], [place] [address] Assigned PCP 12/25/18 04/22/19 Ruth Ann Munoz MD [place] [address] [place] [address] Assigned PCP 04/30/19 05/27/19 Flynn Ruiz MD [address] [place] [address] Assigned PCP 04/23/19 04/29/19 Flynn Ruiz MD [address] [place] [address] Assigned PCP 05/28/19 07/22/19 Mari Funes, JERRY Personal Advocate & Liaison (PAL) 07/27/19 07/30/19 Ruth Ann Munoz MD [place] [address] [place] [address] Assigned PCP 07/23/19 08/12/19 Trina Carbajal PA-C [address] [place], [place] [address] Assigned PCP 08/13/19 07/27/20 Federico Linda MD [address] [place] [address] Assigned Heart and Vascular Provider 03/29/20 Connie Blackwell MD [address] [place] [address] Assigned Endocrinology Provider 07/14/20 12/19/20 Ruth Ann Munoz MD [place] [address] [place] [address] Assigned PCP 07/28/20 08/25/20 Carlos Livingston MD NO INFO AVAILABLE Assigned PCP 08/26/20 08/31/20 Trina Carbajal PA-C [address] [place] [address] Assigned PCP 09/01/20 12/07/20 Carlos Livingston MD NO INFO AVAILABLE Assigned Endocrinology Provider 12/20/20 12/18/22 Carlos Livingston MD NO INFO AVAILABLE Assigned PCP 12/08/20 12/19/20 Trina Carbajal, PA-C [address] [facility] [address] [place] [address] Assigned PCP 12/20/20 04/28/24 Mari Funes, JERRY Personal Advocate & Liaison (PAL) Nurse 01/24/21 06/12/21 Jc Zavala MD [facility] [address] [place] [address] Hematology & Oncology 08/07/21 Barbi Manzo, JERYR Personal Advocate & Liaison (PAL) Family Medicine 12/24/21 07/08/23 [place] [address] [place] [address] Assigned Musculoskeletal Provider 04/04/22 08/19/23 Cristofer Michelle MD [facility] [address] [place], [place] [address] Gastroenterology 07/28/22 Vivien Blanchard MD [address] [place] [address] 394 [place], [place] 18[address] Urology 07/28/22 Sapna Hernandez MD [address] [facility] 394 [place] [address] Assigned Nephrology Provider 07/11/22 09/25/22 Vivien Blanchard MD [address] [facility] 394 [place] [address] Assigned Surgical Provider 07/25/22 06/30/23 Virgie Lobato PA-C [address] [place] [address] [phone] Assigned Nephrology Provider 09/26/22 03/28/24 Teetee Velazquez PA-C [address] [place] [address] 266585 Physician Skin Fitter 05/11/23 Teetee Velazquez PA-C [address] [place] [address] 637715 Assigned Surgical Provider 07/01/23 Cora Shah RN Personal Advocate & Liaison (PAL) Nurse 07/09/23 09/29/23 [place] [address] [address] [address] Assigned Musculoskeletal Provider 08/20/23 Cristal Cooper, JERRY Lead Therapist Occupational Primary Care - CC 04/27/2404/08 Shannon Rowland PA-C [address] [place] [address] Assigned PCP 04/29/24 05/28/24 Lanie Foster, RD, LD [address] [place] [address] Registered Dietitian Nutrition 05/15/24 [place] [address] [place], [place] 83940[address] Assigned PCP 05/29/24 Melonie Caro RP [address] [place], [place] 74[address] Pharmacist Pharmacist 06/05/24 Federico Linda MD [address] [facility] [address] [place] 177[address] Cardiovascular Disease 06/13/[address] [facility] [address] [place], [place] [address] Assigned MTM Pharmacist 06/29/24 Virgie Lobato, PA-C [address] [place] [address] Assigned Nephrology Provider 07/30/24 Barry Ybarra MD [address] [place] [address] Hospitalist Infectious Diseases 08/31/24 Barry Ybarra MD [address] [place] [address] Assigned Infectious Disease Provider 10/27/24 documented as of this encounter
--- OUTSIDE RECORDS SUMMARY | 2024-11-12 17:28 | XMS_ITS | Encounter Summary ---
Author Organization [place] Address [address] [place] [address] Care Team Providers Care Plugger Name Role Phone Sheryl Stringer Kirk [place] Unavailable [phone] Federico Linda MD Unavailable [phone] Trina CarbajalC Primary Care Provider Carlos Livingston MD Unavailable Jelena vailable Trina Carbajal PA-C Unavailable [phone] Mari Funes RN Unavailable Unavailable Jc Zavala MD Unavailable [phone] Barbi Manzo RN Unavailable Unavailable Erasto Root MD Unavailable Cristofer Michelle MD Unavailable [phone] Vivien Blanchard MD Unavailable [phone] Sapna Hernandez MD Unavailable Vivien Blanchard MD Unavailable [phone] Virgie LobatoC Unavailable [phone] Teetee Velazquez-C Unavailable [phone] Teetee Velazquez-C Unavailable [phone] Cora Shah RN Unavailable [phone] Brad Mayer Unavailable Mary Garcia MD Primary Care Provider Cristal Cooper RN Unavailable Shannon RowlandC Unavailable [phone], LD Unavailabl e Mary Garcia MD Unavailable Melonie Caro [facility] Unavailable Federico Linda MD Unavailable [phone] Melonie Caro [facility] Unavailable Virgie LobatoC Unavailable [phone] Barry Ybarra MD Unavailable Barry Ybarra MD Unavailable [phone] Encounter Details Date Type Department Care Team (Late st Contact Info) Description 02/04/2021 [facility] Medical [facility] Heart [facility] [address] [place] [address] [address] [place] [address] Federico Linda MD [address] [facility] [address] [place], [place] [address] Social History Tobacco Use Types Packs/Day Years Used Date Smoking Tobacco: Never Smokeless Tobacco: Never Alcohol Use Standard Drinks/Week Comments No 0 (1 standard drink = 0.6 oz pur e alcohol) PHQ-2 Answer Date Recorded PHQ-2 Score 0 08/23/2020 Comments No Sex and Gender Information Value Date Recorded Sex Assigned at Female 07/18/2020 1:16 PM PRECIPITATOR OPERATOR Legal Sex Female 3:23 AM PRECIPITATOR OPERATOR Gender Identity Female 07/18/2020 1:16 PM PRECIPITATOR OPERATOR Sexual Orientation Straight 07/18/2020 1: 16 PM PRECIPITATOR OPERATOR 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 Unable to assess 02/07/2021 2:32 PM CDT documented as of this encounter Plan of Treatment Upcoming Encounters Date Type Department Care Team (Late st Contact Info) Description 11/16/2024 1:00 PM CDT Allied Health/Nurse Visit [facility] Urology [address] [phone] Lucero Britt PA-C 500 [place], [place] [address] 11/16/2024 2:45 PM CDT Office Visit [facility] Urology [address] [phone] Vivien Blanchard MD 420 [facility] 394 [place], [place] [address] 11/20/2024 3:30 PM CDT Office Visit [address] [phone] [place] [address] [place] [address] 11/22/2024 9:15 AM CDT Office Visit [facility] [address] [facility] [address] [place] [phone] Federico Linda MD [address] [facility] [address] [place], [place] [address] 11/30/2024 10:30 AM CDT Lab [facility] Laboratory [address] [place] [address] 12/06/2024 10:10 AM CDT Office Visit [facility] 6525 [facility] 200 [place] [address] Virgie Lobato, PANilesh [address] [place] [address] 12/28/2024 11:00 AM CDT Office Visit [facility] [address] [place] [phone] Barry Ybarra MD [address] [place] [address] 01/26/2025 11:30 AM CDT Office Visit [facility] [address] [place] [phone] [place] [address] [place] [address] documented as of this encounter Goals Goal Patient Goal Type Associated Problems Recent Progress Patient-Stated? Author Problem Solving General On track( 9:24 AM PRECIPITATOR OPERATOR) Yes Sheryl Stringer RD Note: My [...] Out COVID-19 2021 2021 04/25/2021 12:41 PM PRECIPITATOR OPERATOR Rule Out COVID-19 06/14/2022 06/14/2022 06/14/2022 11:30 AM PRECIPITATOR OPERATOR Rule Out COVID-19 07/03/2022 07/03/2022 07/04/2022 12:27 AM PRECIPITATOR OPERATOR Rule Out COVID-19 04/01/2024 04/01/2024 04/01/2024 10:07 PM CDT ESBL 07/05/2024 08/24/2024 Rule Out COVID-19 07/16/2024 07/16/2024 07/16/2024 11:04 PM PRECIPITATOR OPERATOR Rule Out COVID-19 09/01/2024 09/01/2024 09/01/2024 2:05 AM CDT Rule Out COVID-19 09/21/2024 09/21/2024 09/21/2024 3:25 PM CDT Assessment Noted Time PHQ-9 Depression Total Score: 6 08/25/19 21 7:03 AM CDT documented as of this encounter Care Teams Plugger Relationship Specialty Start Date End Date Trina Carbajal PA-C [address] [place] [address] PCP - General Family Medicine 05/19/20 04/10/24 [place] [address] [place] [address] PCP - General Family Medicine 04/11/[address] [facility] [address] [place] [address] [place] [address] Machine Sorter Dietitian, Registered 11/03/17 Federico Linda MD [address] [place] [address] Assigned Heart and Vascular Provider 03/29/20 Carlos Livingston MD NO INFO AVAILABLE Assigned Endocrinology Provider 12/20/20 12/18/22 Trina Carbajal, PA-C [address] [facility] [address] [place] [address] Assigned PCP 12/20/20 04/28/24 Mari Funes, JERRY Personal Advocate & Liaison (PAL) Nurse 01/24/21 06/12/21 Jc Zavala MD [place] [facility] [address] [place] [address] Hematology & Oncology 08/07/21 Barbi Manzo RN Personal Advocate & Liaison (PAL) Family Medicine 12/24/21 07/08/23 [place] [address] [place] [address] Assigned Musculoskeletal Provider 04/04/22 08/19/23 Cristofer Michelle MD [address] [place] [address] 020415 Gastroenterology 07/28/22 Vivien Blanchard MD [address] [place] [phone] Urology 07/28/22 Sapna Hernandez MD [address] [place] [address] 750675 Assigned Nephrology Provider 07/11/22 09/25/22 Vivien Blanchard MD [address] [place] [address] Assigned Surgical Provider 07/25/22 06/30/23 Virgie Lobato PA-C [address] [place] [address] Assigned Nephrology Provider 09/26/22 03/28/24 Teetee Velazquez PA-C [address] [place] [address] Physician Tank Car Repairer 05/11/23 Teetee Velazquez PA-C [address] [place] [address] 239775 Assigned Surgical Provider 07/01/23 Cora Shah, JERRY Personal Advocate & Liaison (PAL) Nurse 07/09/23 09/29/23 [place] [address] [address] Assigned Musculoskeletal Provider 08/20/23 Cristal Cooper, JERRY Lead Cost Consultant Primary Care - CC 04/27/2404/08 Shannon Rowland PA-C [address] [place] [address] Assigned PCP 04/29/24 05/28/24 Lanie Foster, RD, LD [address] [place] [address] Registered Dietitian Nutrition 05/15/24 [place] [address] [place] [address] Assigned PCP 05/29/24 Melonie Caro [facility] [address] [place] [address] Pharmacist Pharmacist 06/05/24 Federico Linda MD [address] [facility] [address] [place], [place] 98[address] Cardiovascular Disease 06/13/24 Melonie Caro [facility] [address] [place] [address] Assigned MTM Pharmacist 06/29/24 Virgie Lobato PA-C [address] [place] [address] [id number] Assigned Nephrology Provider 07/30/24 Barry Ybarra MD [address] [place] [address] Hospitalist Infectious Diseases 08/31/24 Barry Ybarra MD [address] [place] [address] Assigned Infectious Disease Provider 10/27/24 documented as of this encounter
--- OUTSIDE RECORDS SUMMARY | 2024-11-12 17:28 | XMS_ITS | Encounter Summary ---
Author Organization [facility] Address [address] [place] [address] Care Team Providers Care Audio Visual Manager Name Role Phone Sehryl Stringer Kirk BENITEZ Unavailable [phone] Federico Linda MD Unavailable [phone] Trina CarbajalC Primary Care Provider Carlos Livingston MD Unavailable Jelena vailable Trina Carbajal PA-C Unavailable [phone] Mari Funes RN Unavailable Unavailable Jc Zavala MD Unavailable [phone] Barbi Manzo RN Unavailable Unavailable Erasto Root MD Unavailable Cristofer Michelle MD Unavailable [phone] Vivien Blanchard MD Unavailable [phone] Sapna Hernandez MD Unavailable Vivien Blanchard MD Unavailable [phone] Virgie LobatoC Unavailable [phone] Teetee Velazquez PA-C Unavailable [phone] Teetee Velazquez PA-C Unavailable [phone] Cora Shah RN Unavailable Brad Mayer Unavailable [phone] Mary Garcia MD Primary Care Provider Cristal Cooper RN Unavailable Shannon Rowland PA-C Unavailable [phone], LD Unavailabl e Mary Garcia MD Unavailable Melonie Caro [facility] Unavailable Federico Linda MD Unavailable [phone] [facility] Unavailable Virgie Lobato PA-C Unavailable [phone] Barry Ybarra MD Unavailable [phone] Barry Ybarra MD Unavailable [phone] Encounter Details Date Type Department Care Team (Late st Contact Info) Description 01/25/2021 [facility] [address] [address] Trina Carbajal PA-C [address] [facility] 200 [place], [place] [phone] Social History Tobacco Use Types Packs/Day Years Used Date Smoking Tobacco: Never Smokeless Tobacco: Never Alcohol Use Standard Drinks/Week Comments No 0 (1 standard drink = 0.6 oz pur e alcohol) PHQ-2 Answer Date Recorded PHQ-2 Score 0 08/23/2020 Comments No Sex and Gender Information Value Date Recorded Sex Assigned at Female 07/18/2020 1:16 PM DESK ATTENDANT Legal Sex Female 3:23 AM DESK ATTENDANT Gender Identity Female 07/18/2020 1:16 PM DESK ATTENDANT Sexual Orientation Straight 07/18/2020 1: 16 PM DESK ATTENDANT 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 No / Unsure 01/24/2021 8:31 AM CDT documented as of this encounter Plan of Treatment Upcoming Encounters Date Type Department Care Team (Late st Contact Info) Description 11/16/2024 1:00 PM CDT Allied Health/Nurse Visit [facility] Urology [address] [phone] Lucero Britt PA-C 500 [place], [place] [phone] 11/16/2024 2:45 PM CDT Office Visit [facility] Urology [address] [phone] Vivien Blanchard MD 420 [facility] 394 [place], [place] [phone] 11/20/2024 3:30 PM CDT Office Visit [address] [address] Mary Garcia MD [address] [place] [address] 11/22/2024 9:15 AM CDT Office Visit [facility] [address] [facility] [address] [place] [phone] Federico Linda MD 5942 [facility] [address] [place], [place] [address] 11/30/2024 10:[address] [facility] [address] [place] [address] 12/06/2024 10:10 AM CDT Office Visit [facility] 6525 [facility] 200 [place] [phone] Virgie Lobato PA-C [address] [place] [address] 12/28/2024 11:00 AM CDT Office Visit [facility] 2945 [facility] 200 [place] [phone] [place] [address] [place] [address] 01/26/2025 11:30 AM CDT Office Visit [facility] [address] [place] [address] [place] [id number] [place] [address] documented as of this encounter Goals Goal Patient Goal Type Associated Problems Recent Progress Patient-Stated? Author Problem Solving General On track( 9:24 AM DESK ATTENDANT) Yes Sheryl Stringer RD Note: My Goal: [...] Out COVID-19 2021 2021 04/25/2021 12:41 PM DESK ATTENDANT Rule Out COVID-19 06/14/2022 06/14/2022 06/14/2022 11:30 AM DESK ATTENDANT Rule Out COVID-19 07/03/2022 07/03/2022 07/04/2022 12:27 AM DESK ATTENDANT Rule Out COVID-19 04/01/2024 04/01/2024 04/01/2024 10:07 PM CDT ESBL 07/05/2024 08/24/2024 Rule Out COVID-19 07/16/2024 07/16/2024 07/16/2024 11:04 PM DESK ATTENDANT Rule Out COVID-19 09/01/2024 09/01/2024 09/01/2024 2:05 AM CDT Rule Out COVID-19 09/21/2024 09/21/2024 09/21/2024 3:25 PM CDT Assessment Noted Time PHQ-9 Depression Total Score: 6 08/25/19 21 7:03 AM CDT documented as of this encounter Care Teams Audio Visual Manager Relationship Specialty Start Date End Date Trina Carbajal PA-C [address] [place] [address] PCP - General Family Medicine 05/19/20 04/10/24 [place] [address] [place] [address] PCP - General Family Medicine 04/11/[address] [facility] MICHELLE [address] [place] [address] [place] [address] Roller Coaster Designer Dietitian, Registered 11/03/17 Federico Linda MD [address] [place] [address] Assigned Heart and Vascular Provider 03/29/20 Carlos Livingston MD NO INFO AVAILABLE Assigned Endocrinology Provider 12/20/20 12/18/22 Trina Carbajal, PA-C 6405 [facility] [address] [place] [address] Assigned PCP 12/20/20 04/28/24 Mari Funes, JERRY Personal Advocate & Liaison (PAL) Nurse 01/24/21 06/12/21 Jc Zavala MD [facility] [place] [address] [place] [address] Hematology & Oncology 08/07/21 Barbi Manzo, JERRY Personal Advocate & Liaison (PAL) Family Medicine 12/24/21 07/08/23 [place] [address] [place] [address] Assigned Musculoskeletal Provider 04/04/22 08/19/23 Cristofer Michelle MD [address] [place] [address] 1[address] [place], [place] 928825 Gastroenterology 07/28/22 Vivien Blanchard MD [address] [place] [address] [phone] Urology 07/28/22 Sapna Hernandez MD [address] [place] [address] 749545 Assigned Nephrology Provider 07/11/22 09/25/22 Vivien Blanchard MD [address] [place] [address] Assigned Surgical Provider 07/25/22 06/30/23 Virgie Lobato PA-C [address] [place] [address] Assigned Nephrology Provider 09/26/22 03/28/24 Teetee Velazquez PA-C [address] [place] [address] [phone] Physician Medical Transport Specialist 05/11/23 Teetee Velazquez PA-C [address] [place] [address] 860575 Assigned Surgical Provider 07/01/23 Cora Shah, JERRY Personal Advocate & Liaison (PAL) Nurse 07/09/23 09/29/23 [place] [address] [address], [address] [address] Assigned Musculoskeletal Provider 08/20/23 Cristal Cooper, JERRY Lead Negative Cutter Primary Care - CC 04/27/2404/08 Shannon Rowland PA-C [address] [facility] [place] [address] Assigned PCP 04/29/24 05/28/24 Lanie Foster, RD, LD [address] [place] [address] Registered Dietitian Nutrition 05/15/24 [place] [address] [address] [place] [address] Assigned PCP 05/29/[address] [facility] [address] [place] [address] Pharmacist Pharmacist 06/05/24 Federico Linda MD 6405 [facility] [address] [place], [place] 819[address] Cardiovascular Disease 06/13/[address] [facility] [address] [place] [address] Assigned MTM Pharmacist 06/29/24 Virgie Lobato, PAAnthonyC [address] [place] [address] 653455 Assigned Nephrology Provider 07/30/24 Barry Ybarra MD [address] [place] [address] Hospitalist Infectious Diseases 08/31/24 Barry Ybarra MD [address] [place] [address] Assigned Infectious Disease Provider 10/27/24 documented as of this encounter
--- OUTSIDE RECORDS SUMMARY | 2024-11-12 17:28 | XMS_ITS | Encounter Summary ---
Author Organization [facility] Address [address] [place] [address] Care Team Providers Care Tube Sizer And Cutter Operator Name Role Phone Sheryl Stringer ELI Unavailable [phone] Flynn Ruiz MD Unavailable [phone] Ruth Ann Munoz MD Primary Care Prov ider Ruth Ann Munoz MD Unavailable + Flynn Ruiz MD Primary Care Provider [phone] Ruth Ann Munoz MD Unavailable + Flynn Ruiz MD Unavailable [phone] Flynn Ruzi MD Unavailable [phone] Mari Funes RN Unavailable Unavailable Ruth Ann Munoz MD Unavailable + Trina Carbajal PA-C Unavailable [phone] Federico Linda MD Unavailable [phone] Trina Carbajal PA-C Primary Care Provider [phone] Connie Blackwell MD Unavailable [phone] Ruth Ann Munoz MD Unavailable + Carlos Livingston MD Unavailable Jelena vailable Trina aCrbajal-C Unavailable [phone] Carlos Livingston MD Unavailable Jelena vailable Carlos Livingston MD Unavailable Jelena vailable Trina Carbajal PA-C Unavailable [phone] Mari Funes RN Unavailable Unavailable Jc Zavala MD Unavailable [phone] Barbi Manzo RN Unavailable Unavailable Erasto Root MD Unavailable Cristofer Michelle MD Unavailable [phone] Vivien Blanchard MD Unavailable + [phone] Sapna Hernandez MD Unavailable Vivien Blanchard MD Unavailable [phone] Virgie Lobato PA-C Unavailable [phone] Teetee Velazquez PA-C Unavailable [phone] Teetee Velazquez PA-C Unavailable +[phone] Cora Shah RN Unavailable [phone] Brad Mayer DO Unavailable [phone] Mary Garcia MD Primary Care Provider [phone] Cristal Cooper RN Unavailable Shannon Rowland PA-C Unavailable [phone], LD Unavailabl e Mary Garcia MD Unavailable Melonie Caro [facility] Unavailable [phone] Federico Linda MD Unavailable [phone] Melonie Caro [facility] Unavailable Virgie Lobato PA-C Unavailable +[phone] Barry Ybarra MD Unavailable [phone] Barry Ybarra MD Unavailable [phone] Encounter Details Date Type Department Care Team (Late Contact Info) Description 12/16/2018 My[facility] Medical Advice [address] [address] Flynn Ruiz MD [address] [place] [address] Social History Tobacco Use Types Packs/Day Years Used Date Smoking Tobacco: Never Smokeless Tobacco: Never Alcohol Use Standard Drinks/Week Comments No 0 (1 standard drink = 0.6 oz pur e alcohol) PHQ-2 Answer Date Recorded PHQ-2 Score 2 06/21/2018 Comments No Sex and Gender Information Value Date Recorded Sex Assigned at Female 07/18/2020 1:16 PM NUISANCE WILDLIFE CONTROL OPERATOR Legal Sex Female 3:23 AM NUISANCE WILDLIFE CONTROL OPERATOR Gender Identity Female 07/18/2020 1:16 PM NUISANCE WILDLIFE CONTROL OPERATOR Sexual Orientation Straight 07/18/2020 1: 16 PM NUISANCE WILDLIFE CONTROL OPERATOR 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 Not on file Not on file documented as of this encounter Plan of Treatment Upcoming Encounters Date Type Department Care Team (Late Contact Info) Description 11/16/2024 1:00 PM CDT Allied Health/Nurse Visit [facility] Urology [address] [address] Lucero Britt PA-C 500 [place], [place] [address] 11/16/2024 2:45 PM CDT Office Visit [facility] Urology [address] [place] [phone] Vivien Blanchard MD 420 [facility] 394 [place], [place] [address] 11/20/2024 3:30 PM CDT Office Visit [facility] [address] [place] [phone] [place] [address] [place] [address] 11/22/2024 9:15 AM CDT Office Visit [facility] [address] [facility] [address] [place] [phone] Federico Linda MD 6409 [facility] [address] [place], [place] [address] 11/30/2024 10:30 AM CDT Lab [facility] [address] [place] [phone] 12/06/2024 10:10 AM CDT Office Visit [facility] [address] [phone] Virgie Lobato, PA-C 909 [place] [address] 12/28/2024 11:00 AM CDT Office Visit [facility] 2945 [facility] 200 [place] [phone] [place] [address] [place] [address] 200 [place] [address] 01/26/2025 11:30 AM CDT Office Visit [address] [phone] [place] [address] [address] [place], [place] [phone] documented as of this encounter Goals Goal Patient Goal Type Associated Problems Recent Progress Patient-Stated? Author Problem Solving General On track( 9:24 AM NUISANCE WILDLIFE CONTROL OPERATOR) Yes Sheryl Stringer RD Note: My [...] Out COVID-19 2021 2021 04/25/2021 12:41 PM NUISANCE WILDLIFE CONTROL OPERATOR Rule Out COVID-19 06/14/2022 06/14/2022 06/14/2022 11:30 AM NUISANCE WILDLIFE CONTROL OPERATOR Rule Out COVID-19 07/03/2022 07/03/2022 07/04/2022 12:27 AM NUISANCE WILDLIFE CONTROL OPERATOR Rule Out COVID-19 04/01/2024 04/01/2024 04/01/2024 10:07 PM CDT ESBL 07/05/2024 08/24/2024 Rule Out COVID-19 07/16/2024 07/16/2024 07/16/2024 11:04 PM NUISANCE WILDLIFE CONTROL OPERATOR Rule Out COVID-19 09/01/2024 09/01/2024 09/01/2024 2:05 AM CDT Rule Out COVID-19 09/21/2024 09/21/2024 09/21/2024 3:25 PM CDT Assessment Noted Time PHQ-9 Depression Total Score: 6 08/09/19 19 8:45 AM NUISANCE WILDLIFE CONTROL OPERATOR documented as of this encounter Care Teams Tube Sizer And Cutter Operator Relationship Specialty Start Date End Date Ruth Ann Munoz MD [address] [place] [address] PCP - General Family Practice 08/31/18 04/13/19 Flynn Ruiz MD [place] [address] [place] [address] PCP - General Family Practice 04/14/19 05/18/20 Trina Carbajal PA-C 6405 [facility] [address] [place] [address] PCP - General Family Medicine 05/19/20 04/10/24 [place] [address] [place], [place] [phone] PCP - General Family Medicine 04/11/[address] [place] [phone] Library Acquisitions Technician Dietitian, Registered 11/03/17 Flynn Ruiz MD [address] [place] [address] Assigned PCP 04/24/18 12/24/18 Ruth Ann Munoz MD [place] [address] [place] 725938 Assigned PCP 12/25/18 04/22/19 Ruth Ann Munoz MD [place] [address] [place] 159838 Assigned PCP 04/30/19 05/27/19 Flynn Ruiz MD [address] [place] [address] Assigned PCP 04/23/19 04/29/19 Flynn Ruiz MD [address] [place] [address] Assigned PCP 05/28/19 07/22/19 Mari Funes RN Personal Advocate & Liaison (PAL) 07/27/19 07/30/19 Ruth Ann Munoz MD [facility] [address] [place] [address] Assigned PCP 07/23/19 08/12/19 Trina Carbajal PAAnthonyC [address] [place] [address] Assigned PCP 08/13/19 07/27/20 Federico Linda MD [address] [place] [address] Assigned Heart and Vascular Provider 03/29/20 Connie Blackwell MD [address] [place], [place] [address] Assigned Endocrinology Provider 07/14/20 12/19/20 Ruth Ann Munoz MD [place] [address] [place] [address] Assigned PCP 07/28/20 08/25/20 Carlos Livingston MD NO INFO AVAILABLE Assigned PCP 08/26/20 08/31/20 Trina Carbajal PA-C [address] [place] [address] Assigned PCP 09/01/20 12/07/20 Carlos Livingston MD NO INFO AVAILABLE Assigned Endocrinology Provider 12/20/20 12/18/22 Carlos Livingston MD NO INFO AVAILABLE Assigned PCP 12/08/20 12/19/20 Trina Carbajal PA-C [address] [place] [address] Assigned PCP 12/20/20 04/28/24 Mari Funes RN Personal Advocate & Liaison (PAL) Nurse 01/24/21 06/12/21 Jc Zavala MD [place] [facility] [address] [facility] 100 [place] [address] Hematology & Oncology 08/07/21 Barbi Manzo, JERRY Personal Advocate & Liaison (PAL) Family Medicine 12/24/21 07/08/23 [place] [address] [address] [place] [address] Assigned Musculoskeletal Provider 04/04/22 08/19/23 Cristofer Michelle MD [address] [place], [place] [address]B 1E [place] [address] Gastroenterology 07/28/22 Vivien Blanchard MD [address] 537435 Urology 07/28/22 Sapna Hernandez MD [address] [place] [address] 345815 Assigned Nephrology Provider 07/11/22 09/25/22 Vivien Blanchard MD [address] [place] [address] 069665 Assigned Surgical Provider 07/25/22 06/30/23 Virgie Lobato PA-C [address] [place] [address] Assigned Nephrology Provider 09/26/22 03/28/24 Teetee Velazquez PA-C [address] [place] [address] Physician Plumbing Technician 05/11/23 Teetee Velazquez PA-C [address] [place] [address] Assigned Surgical Provider 07/01/23 Cora Shah, JERRY Personal Advocate & Liaison (PAL) Nurse 07/09/23 09/29/23 [place] [address] [address] [address] Assigned Musculoskeletal Provider 08/20/23 Cristal Cooper, RN Lead Corporate Statistical Financial Analyst Primary Care - CC 04/27/2404/08 Shannon Rowland PA-C [address] [place] [address] Assigned PCP 04/29/24 05/28/24 Lanie Foster, RD, LD [address] [place], [place] [address] Registered Dietitian Nutrition 05/15/24 [place] [address] [place], [place] 8014344 Assigned PCP 05/29/24 Melonie Caro [facility] [address] [place], [place] [address] Pharmacist Pharmacist 06/05/24 Federico Linda MD [address] [facility] [address] [facility] [address] [place] [address] Cardiovascular Disease 06/13/24 Melonie Caro [facility] [address] [place] [address] Assigned MTM Pharmacist 06/29/24 Virgie Lobato PA-C [address] [place] [address] Assigned Nephrology Provider 07/30/24 Barry Ybarra MD [facility] [address] Hospitalist Infectious Diseases 08/31/24 Barry Ybarra MD [facility]5 [facility] [address] [place] [address] Assigned Infectious Disease Provider 10/27/24 documented as of this encounter
--- OUTSIDE RECORDS SUMMARY | 2024-11-12 17:28 | XMS_ITS | Encounter Summary ---
Author Organization [facility] Address [address] [place] [address] Care Team Providers Care Sap Developer Name Role Phone Sheryl Stringer ELI Unavailable [phone] Flynn Ruiz MD Unavailable [phone] Ruth Ann Munoz MD Primary Care Prov ider Ruth Ann Munoz MD Unavailable + Flynn Ruiz MD Primary Care Provider [phone] Ruth Ann Munoz MD Unavailable + Flynn Ruiz MD Unavailable [phone] Flynn Ruiz MD Unavailable +[phone] Mari Funes RN Unavailable Unavailable Ruth Ann Munoz MD Unavailable + Trina Carbajal PA-C Unavailable +[phone] Federico Linda MD Unavailable +[phone] Trina Carbajal PA-C Primary Care Provider [phone] Connie Blackwell MD Unavailable +[phone] Ruth [...] [phone] Vivien Blanchard MD Unavailable + [phone] Sapna Hernandez MD Unavailable Vivien Blanchard MD Unavailable +[phone] Virgie Lobato PA-C Unavailable +[phone] Teetee Velazquez PA-C Unavailable +[phone] Teetee Velazquez PA-C Unavailable +[phone] Cora Shah RN Unavailable +[phone] Brad Mayer DO Unavailable [phone] Mary Garcia MD Primary Care Provider [phone] Cristal Cooper RN Unavailable Shannon Rowland PA-C Unavailable [phone], LD Unavailabl e Mary Garcia MD Unavailable Melonie Caro [facility] Unavailable [phone] Federico Linda MD Unavailable +[phone] Melonie Caro [facility] Unavailable Virgie Lobato PA-C Unavailable +[phone] Barry Ybarra MD Unavailable +[phone] Barry Ybarra MD Unavailable +[phone] Encounter Details Date Type Department Care Team (Late Contact Info) Description 12/09/2018 MyC Medical Advice [address] [address] Flynn Ruiz MD [address] [place] [address] Social History Tobacco Use Types Packs/Day Years Used Date Smoking Tobacco: Never Smokeless Tobacco: Never Alcohol Use Standard Drinks/Week Comments No 0 (1 standard drink = 0.6 oz pur e alcohol) PHQ-2 Answer Date Recorded PHQ-2 Score 2 06/21/2018 Comments No Sex and Gender Information Value Date Recorded Sex Assigned at Female 07/18/2020 1:16 PM RAIL SIGNAL DESIGNER Legal Sex Female 3:23 AM RAIL SIGNAL DESIGNER Gender Identity Female 07/18/2020 1:16 PM RAIL SIGNAL DESIGNER Sexual Orientation Straight 07/18/2020 1: 16 PM RAIL SIGNAL DESIGNER 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 Not on file documented as of this encounter Plan of Treatment Upcoming Encounters Date Type Department Care Team (Late Contact Info) Description 11/16/2024 1:00 PM CDT Allied Health/Nurse Visit [facility] Urology [address] [address] Lucero Britt PA-C 500 [place], [place] [address] 11/16/2024 2:45 PM CDT Office Visit [facility]rology [address] [place] [phone] Vivien Blanchard MD 420 [facility] 394 [place], [place] [address] 11/20/2024 3:30 PM CDT Office Visit [facility] [address] [place] [phone] [place] [address] [place] [address] 11/22/2024 9:15 AM CDT Office Visit [facility] [address] [facility] [address] [place] [phone] Federico Linda MD 6400 [facility] [address] [place], [place] [address] 11/30/2024 10:30 AM CDT Lab [facility] [address] [place] [phone] 12/06/2024 10:10 AM CDT Office Visit [facility] [address] [phone] Vigrie Lobato, PA-C 909 [place] [address] 12/28/2024 11:00 AM CDT Office Visit [facility] 2945 [facility] 200 [place] [phone] [place] [address] [place] [address] 200 [place] [address] 01/26/2025 11:30 AM CDT Office Visit [address] [phone] [place] [address] [address] [place], [place] 34[address] documented as of this encounter Goals Goal Patient Goal Type Associated Problems Recent Progress Patient-Stated? Author Problem Solving General On track( 9:24 AM RAIL SIGNAL DESIGNER) Yes Sheryl Stringer RD Note: My Goal: [...] Out COVID-19 2021 2021 04/25/2021 12:41 PM RAIL SIGNAL DESIGNER Rule Out COVID-19 06/14/2022 06/14/2022 06/14/2022 11:30 AM RAIL SIGNAL DESIGNER Rule Out COVID-19 07/03/2022 07/03/2022 07/04/2022 12:27 AM RAIL SIGNAL DESIGNER Rule Out COVID-19 04/01/2024 04/01/2024 04/01/2024 10:07 PM CDT ESBL 07/05/2024 08/24/2024 Rule Out COVID-19 07/16/2024 07/16/2024 07/16/2024 11:04 PM RAIL SIGNAL DESIGNER Rule Out COVID-19 09/01/2024 09/01/2024 09/01/2024 2:05 AM CDT Rule Out COVID-19 09/21/2024 09/21/2024 09/21/2024 3:25 PM CDT Assessment Noted Time PHQ-9 Depression Total Score: 6 08/09/19 19 8:45 AM RAIL SIGNAL DESIGNER documented as of this encounter Care Teams Sap Developer Relationship Specialty Start Date End Date Ruth Ann Munoz MD [address] [place] [address] PCP - General Family Practice 08/31/18 04/13/19 Flynn Ruiz MD [place] [address] [place] [address] PCP - General Family Practice 04/14/19 05/18/20 Trina Carbajal PA-C 6405 [facility] [address] [place] [id number] PCP - General Family Medicine 05/19/20 04/10/24 [place] [address] [place], [place] 7287[address] PCP - General Family Medicine 04/11/[address] [place] [phone] Tire Sorter Dietitian, Registered 11/03/17 Flynn Ruiz MD [address] [place] [address] Assigned PCP 04/24/18 12/24/18 Ruth Ann Munoz MD [place] [address] [place] [address] Assigned PCP 12/25/18 04/22/19 Ruth Ann Munoz MD [place] [address] [place] [address] Assigned PCP 04/30/19 05/27/19 Flynn Ruiz MD [address] [place] [address] Assigned PCP 04/23/19 04/29/19 Flynn Ruiz MD [address] [place] [address] Assigned PCP 05/28/19 07/22/19 Mari Funes RN Personal Advocate & Liaison (PAL) 07/27/19 07/30/19 Ruth Ann Munoz MD [facility] [address] [place] [address] Assigned PCP 07/23/19 08/12/19 Trina Carbajal PAAnthonyC [address] [place] 503915 Assigned PCP 08/13/19 07/27/20 Federico Linda MD [address] [place] [address] Assigned Heart and Vascular Provider 03/29/20 Connie Blackwell MD [address] [place], [place] [address] Assigned Endocrinology Provider 07/14/20 12/19/20 Ruth Ann Munoz MD [place] [address] [place] [address] Assigned PCP 07/28/20 08/25/20 Carlos Livingston MD NO INFO AVAILABLE Assigned PCP 08/26/20 08/31/20 Trina Carbajal PA-C [address] [place] [address] Assigned PCP 09/01/20 12/07/20 Carlos Livingston MD NO INFO AVAILABLE Assigned Endocrinology Provider 12/20/20 12/18/22 Carlos Livingston MD NO INFO AVAILABLE Assigned PCP 12/08/20 12/19/20 Trina Carbajal PA-C [address] [place] [address]95 Assigned PCP 12/20/20 04/28/24 Mari Funes RN Personal Advocate & Liaison (PAL) Nurse 01/24/21 06/12/21 Jc Zavala MD [facility] [address] [facility] 100 [place] [address] Hematology & Oncology 08/07/21 Barbi Manzo, JERRY Personal Advocate & Liaison (PAL) Family Medicine 12/24/21 07/08/23 [place] [address] [address] [place] [address] Assigned Musculoskeletal Provider 04/04/22 08/19/23 Cristofer Michelle MD [address] [place], [place] [address]B [address] [place] [address] Gastroenterology 07/28/22 Vivien Blanchard MD [address] 698155 Urology 07/28/22 Sapna Hernandez MD [address] [place] [address] 820875 Assigned Nephrology Provider 07/11/22 09/25/22 Vivien Blanchard MD [address] [place] [address] 737355 Assigned Surgical Provider 07/25/22 06/30/23 Virgie Lobato PA-C [address] [place] [address] Assigned Nephrology Provider 09/26/22 03/28/24 Teetee Velazquez PA-C [address] [place] [address] Physician Dietary Aide 05/11/23 Teetee Velazquez PA-C [address] [place] [address] Assigned Surgical Provider 07/01/23 Cora Shah, JERRY Personal Advocate & Liaison (PAL) Nurse 07/09/23 09/29/23 [place] [address] [address] [address] Assigned Musculoskeletal Provider 08/20/23 Cristal Cooper, RN Lead Director Information Primary Care - CC 04/27/2404/08 Shannon Rowland PA-C [address] [place] [address] Assigned PCP 04/29/24 05/28/24 Lanie Foster, RD, LD [address] [place], [place] [address] Registered Dietitian Nutrition 05/15/24 [place] [address] [place], [place] 09385[address] Assigned PCP 05/29/24 Melonie Caro [facility] [address] [place], [place] 2620[address] Pharmacist Pharmacist 06/05/24 Federico Linda MD 6405 [facility] [address] [facility] [address] [place] [address] Cardiovascular Disease 06/13/24 Melonie Caro [facility] [address] [place] [address] Assigned MTM Pharmacist 06/29/24 Virgie Lobato PA-C [address] [place] [address] Assigned Nephrology Provider 07/30/24 Barry Ybarra MD [facility] [address] Hospitalist Infectious Diseases 08/31/24 Barry Ybarra MD [facility] [address] [place] [address] Assigned Infectious Disease Provider 10/27/24 documented as of this encounter
--- OUTSIDE RECORDS SUMMARY | 2024-11-12 17:28 | XMS_ITS | Encounter Summary ---
Author Organization [facility] Address [address] [place] [address] Care Team Providers Care Engineering Design Supervisor Name Role Phone Sheryl Stringer ELI Unavailable [phone] Ruth Ann Munoz MD Primary Care Prov ider Ruth Ann Munoz MD Unavailable + Flynn Ruiz MD Primary Care Provider [phone] Ruth Ann Munoz MD Unavailable + Flynn Ruiz MD Unavailable [phone] Flynn Ruiz MD Unavailable [phone] Mari Funes RN Unavailable Unavailable Ruth Ann Munoz MD Unavailable + Trina Carbajal PA-C Unavailable [phone] Federico Linda MD Unavailable [phone] Solomon, Trina N PA-C Primary Care Provider [phone] Connie Blackwell MD Unavailable Ruth Ann Munoz MD Unavailable + Carlos Livingston MD Unavailable Jelena vailable Trina Carbajal PA-C Unavailable [phone] Carlos Livingston MD Unavailable Jelena vailable Carlos Livingston MD Unavailable Jelena vailable Trina Carbajal PA-C Unavailable [phone] Mari Funes RN Unavailable Unavailable Jc Zavala MD Unavailable [phone] Barbi Manzo RN Unavailable Unavailable Erasto Root MD Unavailable Cristofer Michelle MD Unavailable Vivien Blanchard MD Unavailable Sapna Hernandez MD Unavailable LoVivien williamson MD Unavailable Virgie Lobato PA-C Unavailable Teetee Velazquez PA-C Unavailable Teetee Velazquez PA-C Unavailable [phone] Cora Shah RN Unavailable [phone] Brad Mayer DO Unavailable [phone] Mary Garcia MD Primary Care Provider Cristal Cooper RN Unavailable Shannon Rowland PA-C Unavailable [phone], LD Unavailabl e Mary Garcia MD Unavailable Melonie Caor [facility] Unavailable Federico Linda MD Unavailable [phone] Melonie Caro [facility] Unavailable [phone] Virgie Lobato PA-C Unavailable +[phone] Barry Ybarra MD Unavailable [phone] Barry Ybarra MD Unavailable [phone] Encounter Details Date Type Department Care Team (Late Contact Info) Description 12/28/2018 MyC Medical Advice [address] [place] [address] Social History Tobacco Use Types Packs/Day Years Used Date Smoking Tobacco: Never Smokeless Tobacco: Never Alcohol Use Standard Drinks/Week Comments No 0 (1 standard drink = 0.6 oz pur e alcohol) PHQ-2 Answer Date Recorded PHQ-2 Score 2 06/21/2018 Comments No Sex and Gender Information Value Date Recorded Sex Assigned at Female 07/18/2020 1:16 PM LASER BEAM TRIM OPERATOR Legal Sex Female 3:23 AM LASER BEAM TRIM OPERATOR Gender Identity Female 07/18/2020 1:16 PM LASER BEAM TRIM OPERATOR Sexual Orientation Straight 07/18/2020 1: 16 PM LASER BEAM TRIM OPERATOR 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 Not on file documented as of this encounter Plan of Treatment Upcoming Encounters Date Type Department Care Team (Late Contact Info) Description 11/16/2024 1:00 PM CDT Allied Health/Nurse Visit [facility] [address] [address] Lucero Britt PA-C [address] [place] [address] 11/16/2024 2:45 PM CDT Office Visit [facility] [address] [address] Vivien Blanchard MD 420 [facility] 394 [place] [address] 11/20/2024 3:30 PM CDT Office Visit [facility] [address] [place] [phone] [place] [address] [place], [place] [address] 11/22/2024 9:15 AM CDT Office Visit [facility] Heart [facility] [address] [facility] [address] [place] [phone] Federico Linda MD 5555 [facility] [address] [place], [place] [address] 11/30/2024 10:[address] [facility] [address] [place] [phone] 12/06/2024 10:10 AM CDT Office Visit [facility] 6525 [facility] 200 [place] [phone] Virgie Lobato, PA-C 909 [place] [address] 12/28/2024 11:00 AM CDT Office Visit [facility] 2945 [facility] 200 [place] [phone] Barry Ybarra MD 2945 [facility] 200 [place] [address] 01/26/2025 11:30 AM CDT Office Visit [address] [phone] [place] [address] [place] [address] documented as of this encounter Goals Goal Patient Goal Type Associated Problems Recent Progress Patient-Stated? Author Problem Solving General On track( 9:24 AM LASER BEAM TRIM OPERATOR) Yes Sheryl Stringer RD Note: My [...] Out COVID-19 2021 2021 04/25/2021 12:41 PM LASER BEAM TRIM OPERATOR Rule Out COVID-19 06/14/2022 06/14/2022 06/14/2022 11:30 AM LASER BEAM TRIM OPERATOR Rule Out COVID-19 07/03/2022 07/03/2022 07/04/2022 12:27 AM LASER BEAM TRIM OPERATOR Rule Out COVID-19 04/01/2024 04/01/2024 04/01/2024 10:07 PM CDT ESBL 07/05/2024 08/24/2024 Rule Out COVID-19 07/16/2024 07/16/2024 07/16/2024 11:04 PM LASER BEAM TRIM OPERATOR Rule Out COVID-19 09/01/2024 09/01/2024 09/01/2024 2:05 AM CDT Rule Out COVID-19 09/21/2024 09/21/2024 09/21/2024 3:25 PM CDT Assessment Noted Time PHQ-9 Depression Total Score: 6 08/09/19 19 8:45 AM LASER BEAM TRIM OPERATOR documented as of this encounter Care Teams Engineering Design Supervisor Relationship Specialty Start Date End Date Ruth Ann Munoz MD [address] [place] [address] PCP - General Family Practice 08/31/18 04/13/19 Flynn Ruiz MD [place] [address] [place], [place] [address] PCP - General Family Practice 04/14/19 05/18/20 Trina Carbajal PAAnthonyC 6405 [facility] [address] [place] [address] PCP - General Family Medicine 05/19/20 04/10/24 [place] [address] [place] [address] PCP - General Family Medicine 04/11/[address] [place], [place] [address] Mid Level Business Analyst Dietitian, Registered 11/03/17 Ruth Ann Munoz MD [place] [address] [place], [place] [address] Assigned PCP 12/25/18 04/22/19 Ruth Ann Munoz MD [place] [address] [place] [address] Assigned PCP 04/30/19 05/27/19 Flynn Ruiz MD [address] [place] [address] Assigned PCP 04/23/19 04/29/19 Flynn Ruiz MD [address] [place] [address] Assigned PCP 05/28/19 07/22/19 Mari Funes, JERRY Personal Advocate & Liaison (PAL) 07/27/19 07/30/19 Ruth Ann Munoz MD [place] [address] [place] [address] Assigned PCP 07/23/19 08/12/19 Trina Carbajal PA-C [address] [place], [place] [address] Assigned PCP 08/13/19 07/27/20 Federico Linda MD [address] [place] [address] Assigned Heart and Vascular Provider 03/29/20 Connie Blackwell MD [address] [place] [address] Assigned Endocrinology Provider 07/14/20 12/19/20 Ruth Ann Munoz MD [place] [address] [place] [address] Assigned PCP 07/28/20 08/25/20 Carlos Livingston MD NO INFO AVAILABLE Assigned PCP 08/26/20 08/31/20 Trina Carbajal PA-C [address] [place] [address] Assigned PCP 09/01/20 12/07/20 Carlos Livingston MD NO INFO AVAILABLE Assigned Endocrinology Provider 12/20/20 12/18/22 Carlos Livingston MD NO INFO AVAILABLE Assigned PCP 12/08/20 12/19/20 Trina Carbajal, PA-C 6405 [facility] [address] [place] [address] Assigned PCP 12/20/20 04/28/24 Mari Funes, JERRY Personal Advocate & Liaison (PAL) Nurse 01/24/21 06/12/21 Jc Zavala MD [facility] [address] [place] [address] Hematology & Oncology 08/07/21 Barbi Manzo, JERRY Personal Advocate & Liaison (PAL) Family Medicine 12/24/21 07/08/23 [place] [address] [place] [address] Assigned Musculoskeletal Provider 04/04/22 08/19/23 Cristofer Michelle MD 6 [facility] 1E [place], [place] [address] Gastroenterology 07/28/22 Vivien Blanchard MD [address] [place] [address] [facility] 394 [place], [place] [address] Urology 07/28/22 Sapna Hernandez MD 420 [facility] 394 [place] [address] Assigned Nephrology Provider 07/11/22 09/25/22 Vivien Blanchard MD 420 [facility] 394 [place] [address] Assigned Surgical Provider 07/25/22 06/30/23 Virgie Lobato PA-C [address] [place] [address] 569645 Assigned Nephrology Provider 09/26/22 03/28/24 Teetee Velazquez PA-C [address] [place] [address] 968345 Physician Senior Business Development Manager 05/11/23 Teetee Velazquez PA-C [address] [place] [address] 862505 Assigned Surgical Provider 07/01/23 Cora Shah RN Personal Advocate & Liaison (PAL) Nurse 07/09/23 09/29/23 [place] [address] [address] [address] Assigned Musculoskeletal Provider 08/20/23 Cristal Cooper, RN Lead Supply Officer Primary Care - CC 04/27/2404/08 Shannon Rowland PA-C [address] [place] [address] Assigned PCP 04/29/24 05/28/24 Lanie Foster, RD, LD [address] [place] [address]125 Registered Dietitian Nutrition 05/15/24 [place] [address] [place] [address] Assigned PCP 05/29/24 Melonie Caro RP [address] [place] [address] Pharmacist Pharmacist 06/05/24 Federico Linda MD [address] [email or web address] [address] [place] [address] Cardiovascular Disease 06/13/24 Melonie Caro [facility] [address] [place], [place] [address] Assigned MTM Pharmacist 06/29/24 Virgie Lobato, PA-C [address] [place] [address] 545325 Assigned Nephrology Provider 07/30/24 Barry Ybarra MD [address] [place] [address] Hospitalist Infectious Diseases 08/31/24 Barry Ybarra MD [address] [place] [address] Assigned Infectious Disease Provider 10/27/24 documented as of this encounter
--- OUTSIDE RECORDS SUMMARY | 2024-11-12 17:28 | XMS_ITS | Encounter Summary ---
Author Organization [employer] Address [address] [place] [address] Care Team Providers Care Title Vehicle Service Attendant Name Role Phone Sheryl Stringer Kirk BENITEZ Unavailable [phone] Federico Linda MD Unavailable [phone] Trina CarbajalC Primary Care Provider Carlos Livingston MD Unavailable Jelena vailable Trina Carbajal PA-C Unavailable [phone] Mari Funes RN Unavailable Unavailable Jc Zavala MD Unavailable [phone] Barbi Manzo RN Unavailable Unavailable Erasto Root MD Unavailable Cristofer Michelle MD Unavailable [phone] Vivien Blanchard MD Unavailable [phone] Sapna Hernandez MD Unavailable Vivien Blanchard MD Unavailable [phone] Virgie LobatoC Unavailable [phone] Teetee Velazquez-C Unavailable [phone] Teetee Velazquez-C Unavailable [phone] Cora Shah RN Unavailable [phone] Brad Mayer Unavailable [phone] Mary Garcia MD Primary Care Provider [phone] Cristal Cooper RN Unavailable Shannon RowlandC Unavailable [phone], LD Unavailabl e Mary Garcia MD Unavailable Melonie Caro [facility] Unavailable Federico Linda MD Unavailable [phone] Melonie Caro [facility] Unavailable Virgie LobatoC Unavailable [phone] Barry Ybarra MD Unavailable [phone] Barry Ybarra MD Unavailable [phone] Encounter Details Date Type Department Care Team (Late st Contact Info) Description 01/23/2021 [facility] [id number] [place] [address] [address] [place] [address] Federico Linda MD [address] [facility] [address] [place], [place] 6[address] Social History Tobacco Use Types Packs/Day Years Used Date Smoking Tobacco: Never Smokeless Tobacco: Never Alcohol Use Standard Drinks/Week Comments No 0 (1 standard drink = 0.6 oz pur e alcohol) PHQ-2 Answer Date Recorded PHQ-2 Score 0 08/23/2020 Comments No Sex and Gender Information Value Date Recorded Sex Assigned at Female 07/18/2020 1:16 PM AVIATION PROGRAM MANAGER Legal Sex Female 3:23 AM AVIATION PROGRAM MANAGER Gender Identity Female 07/18/2020 1:16 PM AVIATION PROGRAM MANAGER Sexual Orientation Straight 07/18/2020 1: 16 PM AVIATION PROGRAM MANAGER 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 Not [...] 11/16/2024 1:00 PM CDT Allied Health/Nurse Visit [facility] Urology [address] [phone] Lucero Britt PA-C 500 [place], [place] [phone] 11/16/2024 2:45 PM CDT Office Visit [facility] Urology [address] [phone] Vivien Blanchard MD 420 [facility] 394 [place], [place] [phone] 11/20/2024 3:30 PM CDT Office Visit [address] [phone] Mary Garcia MD [address] [place] [address] 11/22/2024 9:15 AM CDT Office Visit [facility] [address] [facility] [address] [place] [phone] Federico Linda MD [address] [facility] [address] [place], [place] [address] 11/30/2024 10:30 AM CDT Lab [facility] Laboratory [address] [place] [address] 12/06/2024 10:10 AM CDT Office Visit [facility] [address] [phone] Virgie Lobato PA-C [address] [place] [address] 12/28/2024 11:00 AM CDT Office Visit [facility] [address] [place] [phone] Barry Ybarra MD [address] [place] [address] 01/26/2025 11:30 AM CDT Office Visit [facility] [address] [place] [phone] [place] [phone] [place] [address] documented as of this encounter Goals Goal Patient Goal Type Associated Problems Recent Progress Patient-Stated? Author Problem Solving General On track( 9:24 AM AVIATION PROGRAM MANAGER) Yes Sheryl Stringer RD Note: My [...] Out COVID-19 2021 2021 04/25/2021 12:41 PM AVIATION PROGRAM MANAGER Rule Out COVID-19 06/14/2022 06/14/2022 06/14/2022 11:30 AM AVIATION PROGRAM MANAGER Rule Out COVID-19 07/03/2022 07/03/2022 07/04/2022 12:27 AM AVIATION PROGRAM MANAGER Rule Out COVID-19 04/01/2024 04/01/2024 04/01/2024 10:07 PM CDT ESBL 07/05/2024 08/24/2024 Rule Out COVID-19 07/16/2024 07/16/2024 07/16/2024 11:04 PM AVIATION PROGRAM MANAGER Rule Out COVID-19 09/01/2024 09/01/2024 09/01/2024 2:05 AM CDT Rule Out COVID-19 09/21/2024 09/21/2024 09/21/2024 3:25 PM CDT Assessment Noted Time PHQ-9 Depression Total Score: 6 08/25/19 21 7:03 AM CDT documented as of this encounter Care Teams Title Vehicle Service Attendant Relationship Specialty Start Date End Date Trina Carbajal PA-C [address] [place] [address] PCP - General Family Medicine 05/19/20 04/10/24 [place] [address] [place] [address] PCP - General Family Medicine 04/11/[address] [facility] MICHELLE [address] [place] [address] [place] [address] Renovation Plant Supervisor Dietitian, Registered 11/03/17 Federico Linda MD [address] [place] [address] Assigned Heart and Vascular Provider 03/29/20 Carlos Livingston MD NO INFO AVAILABLE Assigned Endocrinology Provider 12/20/20 12/18/22 Trina Carbajal, PA-C 6[address] [facility] [address] [place] [address] Assigned PCP 12/20/20 04/28/24 Mari Funes, JERRY Personal Advocate & Liaison (PAL) Nurse 01/24/21 06/12/21 Jc Zavala MD [facility] [address] [place], [place] [phone] Hematology & Oncology 08/07/21 Barbi Manzo RN Personal Advocate & Liaison (PAL) Family Medicine 12/24/21 07/08/23 [place] [address] [place] [address] Assigned Musculoskeletal Provider 04/04/22 08/19/23 Cristofer Michelle MD [address] [place] [address] [address] [place], [place] [address] Gastroenterology 07/28/22 Vivien Blanchard MD [address] [place] [address] [phone] Urology 07/28/22 Sapna Hernandez MD [address] [place] [address] [phone] Assigned Nephrology Provider 07/11/22 09/25/22 Vivien Blanchard MD [address] [place] [address] Assigned Surgical Provider 07/25/22 06/30/23 Virgie Lobato PA-C [address] [place] [address] Assigned Nephrology Provider 09/26/22 03/28/24 Teetee Velazquez PA-C [address] [place] [address] Physician Interior Assemblies Installer 05/11/23 Teetee Velazquez PA-C [address] [place] [address] 522355 Assigned Surgical Provider 07/01/23 Cora Shah, JERRY Personal Advocate & Liaison (PAL) Nurse 07/09/23 09/29/23 [place] [address] [address] Assigned Musculoskeletal Provider 08/20/23 Cristal Cooper, JERRY Lead Machine Tech Primary Care - CC 04/27/2404/08 Shannon Rowland PA-C [address] [place] [address] Assigned PCP 04/29/24 05/28/24 Lanie Foster, RD, LD [address] [place] [address] Registered Dietitian Nutrition 05/15/24 [place] [address] [place] [address] Assigned PCP 05/29/24 Melonie Caro [facility] [address] [place] [address] Pharmacist Pharmacist 06/05/24 Federico Linda MD [address] [facility] [address] [place], [place] [address] Cardiovascular Disease 06/13/24 Melonie Caro [facility] [address] [place] [address] Assigned MTM Pharmacist 06/29/24 Virgie Lobato, PAAnthonyC [address] [place] [address] 579695 Assigned Nephrology Provider 07/30/24 Barry Ybarra MD [address] [place] [address] Hospitalist Infectious Diseases 08/31/24 Barry Ybarra MD [address] [place] [address] Assigned Infectious Disease Provider 10/27/24 documented as of this encounter
--- OUTSIDE RECORDS SUMMARY | 2024-11-12 17:28 | XMS_ITS | Encounter Summary ---
Author Organization [facility] Address [address] [place] [address] Care Team Providers Care Ornamental Metal Worker Helper Name Role Phone Sheryl Stringer ELI Unavailable [phone] Ruth Ann Munoz MD Primary Care Prov ider Ruth Ann Munoz MD Unavailable + Flynn Ruiz MD Primary Care Provider [phone] Ruth Ann Munoz MD Unavailable + Flynn Ruiz MD Unavailable [phone] Flynn Ruiz MD Unavailable [phone] Mari Funes RN Unavailable Unavailable Ruth Ann Munoz MD Unavailable + Trina Carbajal PA-C Unavailable [phone] Federico Linda MD Unavailable [phone] Solomon, Trina N PA-C Primary Care Provider [phone] Connie Blackwell MD Unavailable Ruth Ann Munoz MD Unavailable + Carlos Livingston MD Unavailable Jelena vailable Trina Carbajal PA-C Unavailable [phone] Carlos Livingston MD Unavailable Jelena vailable Carlos Livingston MD Unavailable Jelena vailable Trina Carbajal PA-C Unavailable [phone] Mari Funes RN Unavailable Unavailable Jc Zavala MD Unavailable [phone] Barbi Manzo RN Unavailable Unavailable Erasto Root MD Unavailable Cristofer Michelle MD Unavailable Vivien Blanchard MD Unavailable Sapna Hernandez MD Unavailable LoVivien williamson MD Unavailable Virgie Lobato PA-C Unavailable Teetee Velazquez PA-C Unavailable [phone] Teetee Velazquez PA-C Unavailable [phone] Cora Shah RN Unavailable [phone] Brad Mayer DO Unavailable [phone] Mary Garcia MD Primary Care Provider Cristal Cooper RN Unavailable Shannon Rowland PA-C Unavailable [phone], LD Unavailabl e Mary Garcia MD Unavailable Melonie Caro [facility] Unavailable [phone] Federico Linda MD Unavailable [phone] Melonie Caro [facility] Unavailable [phone] Virgie Lobato PA-C Unavailable [phone] Barry Ybarra MD Unavailable [phone] Barry Ybarra MD Unavailable [phone] Encounter Details Date Type Department Care Team (Late Contact Info) Description 01/09/2019 My[facility] Medical Advice [address] [place] [address] Social History Tobacco Use Types Packs/Day Years Used Date Smoking Tobacco: Never Smokeless Tobacco: Never Alcohol Use Standard Drinks/Week Comments No 0 (1 standard drink = 0.6 oz pur e alcohol) PHQ-2 Answer Date Recorded PHQ-2 Score 2 06/21/2018 Comments No Sex and Gender Information Value Date Recorded Sex Assigned at Female 07/18/2020 1:16 PM MED SPA MANAGER Legal Sex Female 3:23 AM MED SPA MANAGER Gender Identity Female 07/18/2020 1:16 PM MED SPA MANAGER Sexual Orientation Straight 07/18/2020 1: 16 PM MED SPA MANAGER 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 Not on file documented as of this encounter Plan of Treatment Upcoming Encounters Date Type Department Care Team (Late Contact Info) Description 11/16/2024 1:00 PM CDT Allied Health/Nurse Visit [facility] Urology [address] [address] Lucero Britt PA-C [address] [place] [address] 11/16/2024 2:45 PM CDT Office Visit [facility] Urology [address] [address] Vivien Blanchard MD 420 [facility] 394 [place] [address] 11/20/2024 3:30 PM CDT Office Visit [facility] [address] [place] [phone] [place] [address] [place], [place] [phone] 11/22/2024 9:15 AM CDT Office Visit [facility] Heart [facility] [address] [facility] [address] [place] [phone] Federico Linda MD 3065 [facility] [address] [place], [place] [address] 11/30/2024 10:[address] [facility] [address] [place] [phone] 12/06/2024 10:10 AM CDT Office Visit [facility] 6525 [facility] 200 [place] [phone] Virgie Lobato, PA-C 909 [place] [address] 12/28/2024 11:00 AM CDT Office Visit [facility] 2945 [facility] 200 [place] [phone] Barry Ybarra MD 2945 [facility] 200 [place] [address] 01/26/2025 11:30 AM CDT Office Visit [address] [phone] [place] [address] [place] [address] documented as of this encounter Goals Goal Patient Goal Type Associated Problems Recent Progress Patient-Stated? Author Problem Solving General On track( 9:24 AM MED SPA MANAGER) Yes Sheryl Stringer RD Note: My [...] Out COVID-19 2021 2021 04/25/2021 12:41 PM MED SPA MANAGER Rule Out COVID-19 06/14/2022 06/14/2022 06/14/2022 11:30 AM MED SPA MANAGER Rule Out COVID-19 07/03/2022 07/03/2022 07/04/2022 12:27 AM MED SPA MANAGER Rule Out COVID-19 04/01/2024 04/01/2024 04/01/2024 10:07 PM CDT ESBL 07/05/2024 08/24/2024 Rule Out COVID-19 07/16/2024 07/16/2024 07/16/2024 11:04 PM MED SPA MANAGER Rule Out COVID-19 09/01/2024 09/01/2024 09/01/2024 2:05 AM CDT Rule Out COVID-19 09/21/2024 09/21/2024 09/21/2024 3:25 PM CDT Assessment Noted Time PHQ-9 Depression Total Score: 6 08/09/19 19 8:45 AM MED SPA MANAGER documented as of this encounter Care Teams Ornamental Metal Worker Helper Relationship Specialty Start Date End Date Ruth Ann Munoz MD [address] [place] [address] PCP - General Family Practice 08/31/18 04/13/19 Flynn Ruiz MD [place] [address] [place], [place] [address] PCP - General Family Practice 04/14/19 05/18/20 Trina Carbajal PAAnthonyC 6405 [facility] [address] [place] [address] PCP - General Family Medicine 05/19/20 04/10/24 [place] [address] [place] [address] PCP - General Family Medicine 04/11/[address] [place], [place] [address] Electrical Development Engineer Dietitian, Registered 11/03/17 Ruth Ann Munoz MD [place] [address] [place], [place] [address] Assigned PCP 12/25/18 04/22/19 Ruth Ann Munoz MD [place] [address] [place] [address] Assigned PCP 04/30/19 05/27/19 Flynn Ruiz MD [address] [place] [address] Assigned PCP 04/23/19 04/29/19 Flynn Ruiz MD [address] [place] [address] Assigned PCP 05/28/19 07/22/19 Mari Funes, JERRY Personal Advocate & Liaison (PAL) 07/27/19 07/30/19 Ruth Ann Munoz MD [place] [address] [place] [address] Assigned PCP 07/23/19 08/12/19 Trina Carbajal PA-C [address] [place], [place] [address] Assigned PCP 08/13/19 07/27/20 Federico Linda MD [address] [place] [address] Assigned Heart and Vascular Provider 03/29/20 Connie Blackwell MD [address] [place] [address] Assigned Endocrinology Provider 07/14/20 12/19/20 Ruth Ann Munoz MD [place] [address] [place] [address] Assigned PCP 07/28/20 08/25/20 Carlos Livingston MD NO INFO AVAILABLE Assigned PCP 08/26/20 08/31/20 Trina Carbajal PA-C [address] [place] [address] Assigned PCP 09/01/20 12/07/20 Carlos Livingston MD NO INFO AVAILABLE Assigned Endocrinology Provider 12/20/20 12/18/22 Carlos Livingston MD NO INFO AVAILABLE Assigned PCP 12/08/20 12/19/20 Trina Carbajal, PA-C 6405 [facility] [address] [place] [address] Assigned PCP 12/20/20 04/28/24 Mari Funes, JERRY Personal Advocate & Liaison (PAL) Nurse 01/24/21 06/12/21 Jc Zavala MD [facility] [address] [place] [address] Hematology & Oncology 08/07/21 Barbi Manzo, JERRY Personal Advocate & Liaison (PAL) Family Medicine 12/24/21 07/08/23 [place] [address] [place] [address] Assigned Musculoskeletal Provider 04/04/22 08/19/23 Cristofer Michelle MD 6 [facility] [address] 1[address] [place], [place] [address] Gastroenterology 07/28/22 Vivien Blanchard MD [address] [place] [address] [facility] 394 [place], [place] [address] Urology 07/28/22 Sapna Hernandez MD 420 [facility] 394 [place] [address] Assigned Nephrology Provider 07/11/22 09/25/22 Vivien Blanchard MD 420 [facility] 394 [place] [address] Assigned Surgical Provider 07/25/22 06/30/23 Virgie Lobato PA-C [address] [place] [address] 790505 Assigned Nephrology Provider 09/26/22 03/28/24 Teetee Velazquez PA-C [address] [place] [address] 242165 Physician Payment Processor 05/11/23 Teetee Velazquez PA-C [address] [place] [address] 633555 Assigned Surgical Provider 07/01/23 Cora Shah RN Personal Advocate & Liaison (PAL) Nurse 07/09/23 09/29/23 [place] [address] [address] [address] Assigned Musculoskeletal Provider 08/20/23 Cristal Cooper, RN Lead Fireworks Assembly Supervisor Primary Care - CC 04/27/2404/08 Shannon Rowland [place]-C [address] [place] [address] Assigned PCP 04/29/24 05/28/24 Lanie Foster, RD, LD [address] [place] [phone] Registered Dietitian Nutrition 05/15/24 [place] [address] [place] [address] Assigned PCP 05/29/24 Melonie Caro RP [address] [place], [place] [address] Pharmacist Pharmacist 06/05/24 Federico Linda MD [address] [facility] [address] [place] 67[address] Cardiovascular Disease 06/13/24 Melonie Caro [facility] [address] [place], [place] [address]24[address] Assigned MTM Pharmacist 06/29/24 Virgie Lobato, PA-C [address] [place] [address] 054015 Assigned Nephrology Provider 07/30/24 Barry Ybarra MD [address] [place] [address] Hospitalist Infectious Diseases 08/31/24 Barry Ybarra MD [address] [place] [address] Assigned Infectious Disease Provider 10/27/24 documented as of this encounter
--- OUTSIDE RECORDS SUMMARY | 2024-11-12 17:28 | XMS_ITS | Encounter Summary ---
Author Organization [facility] Address [address] [place] [address] Care Team Providers Care Occup Therapist Name Role Phone Sheryl Stringer Kirk BENITEZ Unavailable [phone] Federico Linda MD Unavailable [phone] Trina CarbajalC Primary Care Provider Carlos Livingston MD Unavailable Jelena vailable Trina Carbajal PA-C Unavailable [phone] Mari Funes RN Unavailable Unavailable Jc Zavala MD Unavailable [phone] Barbi Manzo RN Unavailable Unavailable Erasto Root MD Unavailable Cristofer Michelle MD Unavailable [phone] Vivien Blanchard MD Unavailable [phone] Sapna Hernandez MD Unavailable Vivien Blanchard MD Unavailable [phone] Virgie LobatoC Unavailable [phone] Teetee Velazquez-C Unavailable +[phone] Teetee Velazquez-C Unavailable [phone] Cora Shah RN Unavailable [phone] Brad Mayer Unavailable [phone] Mary Garcia MD Primary Care Provider Cristal Cooper RN Unavailable Shannon RowlandC Unavailable [phone], LD Unavailabl e Mary Garcia MD Unavailable Melonie Caro [facility] Unavailable Federico Linda MD Unavailable [phone] Melonie Caro [facility] Unavailable Virgie LobatoC Unavailable [phone] Barry Ybarra MD Unavailable Barry Ybarra MD Unavailable +[phone] Encounter Details Date Type Department Care Team (Late st Contact Info) Description 02/05/2021 [facility] Heart [facility] [address] [place] [address] [address] [place] [address] Federico Linda MD [address] 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 [...] Allied Health/Nurse Visit [facility] Urology [address] [phone] Lucero Britt PA-C 500 [place], [place] [address] 11/16/2024 2:45 PM CDT Office Visit [facility] Urology [address] [phone] Vivien Blanchard MD 420 [facility] 394 [place], [place] [phone] 11/20/2024 3:30 PM CDT Office Visit [address] [phone] [place] [phone] [place] [address] 11/22/2024 9:15 AM CDT Office Visit [facility] [address] [facility] [address] [place] [phone] Federico Linda MD [address] [facility] [address] [place], [place] [address] 11/30/2024 10:30 AM CDT Lab [facility] Laboratory [address] [place] [address] 12/06/2024 10:10 AM CDT Office Visit [facility] 6525 [facility] 200 [place] [address] Virgie Lobato, PANilesh [address] [place] [address] 12/28/2024 11:00 AM CDT Office Visit [facility] [address] [place] [phone] Barry Ybarra MD [address] [place] [address] 01/26/2025 11:30 AM CDT Office Visit [facility] [address] [place] [phone] [place] [address] [place] [address] documented as of this encounter Goals Goal Patient Goal Type Associated Problems Recent Progress Patient-Stated? Author Problem Solving General On track( 9:24 AM METAL FURNACE OPERATOR) Yes Sheryl Stringer RD Note: My [...] Out COVID-19 2021 2021 04/25/2021 12:41 PM METAL FURNACE OPERATOR Rule Out COVID-19 06/14/2022 06/14/2022 06/14/2022 11:30 AM METAL FURNACE OPERATOR Rule Out COVID-19 07/03/2022 07/03/2022 07/04/2022 12:27 AM METAL FURNACE OPERATOR Rule Out COVID-19 04/01/2024 04/01/2024 04/01/2024 10:07 PM CDT ESBL 07/05/2024 08/24/2024 Rule Out COVID-19 07/16/2024 07/16/2024 07/16/2024 11:04 PM METAL FURNACE OPERATOR Rule Out COVID-19 09/01/2024 09/01/2024 09/01/2024 2:05 AM CDT Rule Out COVID-19 09/21/2024 09/21/2024 09/21/2024 3:25 PM CDT Assessment Noted Time PHQ-9 Depression Total Score: 6 08/25/19 21 7:03 AM CDT documented as of this encounter Care Teams Occup Therapist Relationship Specialty Start Date End Date Trina Carbajal PA-C [address] [place] [address] PCP - General Family Medicine 05/19/20 04/10/24 [place] [address] [address] PCP - General Family Medicine 04/11/[address] [facility] MICHELLE [address] [place] [address] [place] [address] Traffic Division Commanding Officer Dietitian, Registered 11/03/17 Federico Linda MD [address] [place] [address] Assigned Heart and Vascular Provider 03/29/20 Carlos Livingston MD NO INFO AVAILABLE Assigned Endocrinology Provider 12/20/20 12/18/22 Trina Carbajal, PA-C [address] [facility] [address] [place] [address] Assigned PCP 12/20/20 04/28/24 Mari Funes, JERRY Personal Advocate & Liaison (PAL) Nurse 01/24/21 06/12/21 Jc Zavala MD [facility] [address] [place] [address] Hematology & Oncology 08/07/21 Barbi Manzo RN Personal Advocate & Liaison (PAL) Family Medicine 12/24/21 07/08/23 [place] [address] [place] [address] Assigned Musculoskeletal Provider 04/04/22 08/19/23 Cristofer Michelle MD [address] [place] [address] 782135 Gastroenterology 07/28/22 Vivien Blanchard MD [address] [place] [address] [phone] Urology 07/28/22 Sapna Hernandez MD [address] [place] [address] [phone] Assigned Nephrology Provider 07/11/22 09/25/22 Vivien Blanchard MD [address] [place] [address] Assigned Surgical Provider 07/25/22 06/30/23 Virgie Lobato PA-C [address] [place] [address] Assigned Nephrology Provider 09/26/22 03/28/24 Teetee Velazquez PA-C [address] [place] [address] Physician Case Finisher 05/11/23 Teetee Velazquez PA-C [address] [place] [address] 318325 Assigned Surgical Provider 07/01/23 Cora Shah, JERRY Personal Advocate & Liaison (PAL) Nurse 07/09/23 09/29/23 [place] [address] [address] Assigned Musculoskeletal Provider 08/20/23 Cristal Cooper, JERRY Lead Master Mechanic Primary Care - CC 04/27/2404/08 Shannon Rowland [place]-C [address] [place] [address] Assigned PCP 04/29/24 05/28/24 Lanie Foster, RD, LD [address] [place] [address] Registered Dietitian Nutrition 05/15/24 [place] [address] [place] [address] Assigned PCP 05/29/24 Melonie Caro [facility] [address] [place] [address] Pharmacist Pharmacist 06/05/24 Fedeirco Linda MD [address] [facility] [address] [place], [place] [address] Cardiovascular Disease 06/13/24 Melonie Caro [facility] [address] [place] [address] Assigned MTM Pharmacist 06/29/24 Virgie Lobato PA-C [address] [place] [address] 390855 Assigned Nephrology Provider 07/30/24 Barry Ybarra MD [address] [place] [address] Hospitalist Infectious Diseases 08/31/24 Barry Ybarra MD [address] [place] [address] Assigned Infectious Disease Provider 10/27/24 documented as of this encounter
--- OUTSIDE RECORDS SUMMARY | 2024-11-12 17:29 | XMS_ITS | Encounter Summary ---
Author Organization [facility] Address [address] [place] [address] Care Team Providers Care Hub Borer Name Role Phone Sheryl Stringer ELI Unavailable [phone] Flynn Ruiz MD Unavailable [phone] Ruth Ann Munoz MD Primary Care Prov ider Ruth Ann Munoz MD Unavailable + Flynn Ruiz MD Primary Care Provider [phone] Ruth Ann Munoz MD Unavailable + Flynn Ruiz MD Unavailable [phone] Flynn Ruiz MD Unavailable [phone] Mari Funes RN Unavailable Unavailable Ruth Ann Munoz MD Unavailable + Trina Carbajal PA-C Unavailable [phone] Federico Linda MD Unavailable [phone] Trina Carbajal PA-C Primary Care Provider [phone] Connie Blackwell MD Unavailable [phone] Ruth [...] [phone] Vivien Blanchard MD Unavailable + [phone] Sapna Hernandez MD Unavailable Vivien Blanchard MD Unavailable +[phone] Virgie Lobato PA-C Unavailable +[phone] Teetee Velazquez PA-C Unavailable +[phone] Teetee Velazquez PA-C Unavailable +[phone] Cora Shah RN Unavailable [phone] Brad Mayer DO Unavailable [phone] Mary Garcia MD Primary Care Provider [phone] Cristal Cooper RN Unavailable Shannon Rowland PA-C Unavailable [phone], LD Unavailabl e Mary Garcia MD Unavailable Melonie Caro [facility] Unavailable [phone] Federico Linda MD Unavailable [phone] Melonie Caro [facility] Unavailable +[phone] Virgie Lobato PA-C Unavailable +[phone] Barry Ybarra MD Unavailable +[phone] Barry Ybarra MD Unavailable [phone] Encounter Details Date Type Department Care Team (Late st Contact Info) Description 09/13/2018 My[facility] Medical Advice [address] [id number] Sheryl Stringer, [address] [place] [address] Social History Tobacco Use Types Packs/Day Years Used Date Smoking Tobacco: Never Smokeless Tobacco: Never Alcohol Use Standard Drinks/Week Comments No 0 (1 standard drink = 0.6 oz pur e alcohol) PHQ-2 Answer Date Recorded PHQ-2 Score 2 06/21/2018 Comments No Sex and Gender Information Value Date Recorded Sex Assigned at Female 07/18/2020 1:16 PM NURSING STUDENT Legal Sex Female 3:23 AM NURSING STUDENT Gender Identity Female 07/18/2020 1:16 PM NURSING STUDENT Sexual Orientation Straight 07/18/2020 1: 16 PM NURSING STUDENT 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 file documented as of this encounter Plan of Treatment Upcoming Encounters Date Type Department Care Team (Late st Contact Info) Description 11/16/2024 1:00 PM CDT Allied Health/Nurse Visit [facility] Urology [address] [phone] Lucero Britt PA-C [address] [place] [address] [phone] 11/16/2024 2:45 PM CDT Office Visit [facility] Urology [address] [phone] Vivien Blanchard MD 420 [facility] [address] [place] [address] 11/20/2024 3:30 PM CDT Office Visit [facility] [address] [place] [phone] [place] [address] [place] [address] 11/22/2024 9:15 AM CDT Office Visit [facility] Heart [facility] [address] [facility] [address] [place] [phone] Federico Linda MD 6405 [facility] [address] [place], [place] [address] 11/30/2024 10:30 AM CDT Lab [facility] Laboratory [address] [place] [phone] 12/06/2024 10:10 AM CDT Office Visit [facility] 6525 [facility] 200 [place] [phone] Virgie Lobato, PA-C [address] [place] [address] 12/28/2024 11:00 AM CDT Office Visit [facility] [address] [place] [address] 200 [place] [phone] [place] [address] [place] [address] 200 [place] [address] 01/26/2025 11:30 AM CDT Office Visit [address] [phone] [place] [address] [place] [address] documented as of this encounter Goals Goal Patient Goal Type Associated Problems Recent Progress Patient-Stated? Author Problem Solving General On track( 9:24 AM NURSING STUDENT) Yes Sheryl Stringer RD Note: My Goal: [...] Out COVID-19 2021 2021 04/25/2021 12:41 PM NURSING STUDENT Rule Out COVID-19 06/14/2022 06/14/2022 06/14/2022 11:30 AM NURSING STUDENT Rule Out COVID-19 07/03/2022 07/03/2022 07/04/2022 12:27 AM NURSING STUDENT Rule Out COVID-19 04/01/2024 04/01/2024 04/01/2024 10:07 PM CDT ESBL 07/05/2024 08/24/2024 Rule Out COVID-19 07/16/2024 07/16/2024 07/16/2024 11:04 PM NURSING STUDENT Rule Out COVID-19 09/01/2024 09/01/2024 09/01/2024 2:05 AM CDT Rule Out COVID-19 09/21/2024 09/21/2024 09/21/2024 3:25 PM CDT Assessment Noted Time PHQ-9 Depression Total Score: 6 08/09/19 19 8:45 AM NURSING STUDENT documented as of this encounter Care Teams Hub Borer Relationship Specialty Start Date End Date Stony PointRuth Ann Hewitt MD [address] [place] [address] PCP - General Family Practice 08/31/18 04/13/19 Flynn Ruiz MD [place] [address] [place], [place] [address] PCP - General Family Practice 04/14/19 05/18/20 Trina Carbajal PA-C 6405 [facility] [address] [place] [address] PCP - General Family Medicine 05/19/20 04/10/24 [place] [address] [address] [place], [place] [phone] PCP - General Family Medicine 04/11/[address] [place] [phone] Legal Executive Assistant Dietitian, Registered 11/03/17 Flynn Ruiz MD [address] [place] [address] Assigned PCP 04/24/18 12/24/18 Ruth Ann Munoz MD [place] [address] [place] [address] Assigned PCP 12/25/18 04/22/19 Ruth Ann Munoz MD [place] [address] [place] [address] Assigned PCP 04/30/19 05/27/19 Flynn Ruiz MD [address] [place] [address] Assigned PCP 04/23/19 04/29/19 Flynn Ruiz MD [address] [place] [address] Assigned PCP 05/28/19 07/22/19 Mari Funes, JERRY Personal Advocate & Liaison (PAL) 07/27/19 07/30/19 Ruth Ann Munoz MD [place] [address] [place] [address] Assigned PCP 07/23/19 08/12/19 Trina Carbajal PA-C [address] [place] 25[address] Assigned PCP 08/13/19 07/27/20 Federico Linda MD [address] [place] 2[address] Assigned Heart and Vascular Provider 03/29/20 Connie Blackwell MD [address] [place], [place] 27[address] Assigned Endocrinology Provider 07/14/20 12/19/20 Ruth Ann Munoz MD [place] [address] [place] [address] Assigned PCP 07/28/20 08/25/20 Carlos Livingston MD NO INFO AVAILABLE Assigned PCP 08/26/20 08/31/20 Trina Carbajal PA-C [address] [place] [address] Assigned PCP 09/01/20 12/07/20 Carlos Livingston MD NO INFO AVAILABLE Assigned Endocrinology Provider 12/20/20 12/18/22 Carlos Livingston MD NO INFO AVAILABLE Assigned PCP 12/08/20 12/19/20 Trina Carbajal PA-C [address] [place] [address] Assigned PCP 12/20/20 04/28/24 Mari Funes RN Personal Advocate & Liaison (PAL) Nurse 01/24/21 06/12/21 Jc Zavala MD [place] O[facility]Y H[facility]ATOLOGY [place] [address] [facility] 100 [place] [address] Hematology & Oncology 08/07/21 Barbi Manzo, JERRY Personal Advocate & Liaison (PAL) Family Medicine 12/24/21 07/08/23 [place] [address] [place] [address] Assigned Musculoskeletal Provider 04/04/22 08/19/23 Cristofer Michelle MD 6 [facility] 1E [place], [place] [address] Gastroenterology 07/28/22 Vivien Blanchard MD [address] [place] [address] 156155 Urology 07/28/22 Sapna Hernandez MD [address] [place] [address] 095425 Assigned Nephrology Provider 07/11/22 09/25/22 Vivien Blanchard MD [address] [place] [address] 676965 Assigned Surgical Provider 07/25/22 06/30/23 Virgie Lobato PA-C [address] [place] [address] [phone] Assigned Nephrology Provider 09/26/22 03/28/24 Teetee Velazquez PA-C [address] [place] [address] 778835 Physician Lubricating Machine Tender 05/11/23 Teetee Velazquez PA-C [address] [place] [address] Assigned Surgical Provider 07/01/23 Cora Shah, JERRY Personal Advocate & Liaison (PAL) Nurse 07/09/23 09/29/23 [place] [address] RONALD ESPINOSA, [address] [address] Assigned Musculoskeletal Provider 08/20/23 Cristal Cooper, RN Lead Construction Materials Tester Primary Care - CC 04/27/2404/08 Shannon Rowland PA-C [address] [place] [address]83 Assigned PCP 04/29/24 05/28/24 Lanie Foster, RD, LD [address] [place], [place] [address] Registered Dietitian Nutrition 05/15/24 [place] [address] [place] [address] Assigned PCP 05/29/24 Melonie Caro [facility] [address] [place] [address] Pharmacist Pharmacist 06/05/24 Federico Linda MD [address] [facility] [address] [place] [address] Cardiovascular Disease 06/13/24 Melonie Caro [place] [address] [place] [address] Assigned MTM Pharmacist 06/29/24 Virgie Lobato PA-C [address] [place] [address] Assigned Nephrology Provider 07/30/24 Barry Ybarra MD [facility] [address] [phone] Hospitalist Infectious Diseases 08/31/24 Barry Ybarra MD [facility] [address] [address] Assigned Infectious Disease Provider 10/27/24 documented as of this encounter
--- OUTSIDE RECORDS SUMMARY | 2024-11-12 17:29 | XMS_ITS | Encounter Summary ---
Author Organization [facility] Address [address] [place] [address] Care Team Providers Care Loading Unit Operator Seating Name Role Phone Sheryl Stringer ELI Unavailable [phone] Flynn Ruiz MD Unavailable [phone] No Ref-Primary, Physician Primary Care Provider Flynn Ruiz MD Unavailable [phone] Ruth Ann Munoz MD Primary Care Prov ider Ruth Ann Munoz MD Unavailable + Flynn Ruiz MD Primary Care Provider [phone] Ruth Ann Munoz MD Unavailable + Flynn Ruiz MD Unavailable [phone] Flynn Ruiz MD Unavailable [phone] Mari Funes RN Unavailable Unavailable Ruth Ann Munoz MD Unavailable + Trina Carbajal-C Unavailable [phone] Federico Linda MD Unavailable [phone] Trina Carbajal PA-C Primary Care Provider [phone] Connie Blackwell MD Unavailable [phone] SylvesterRuth Ann Holm MD Unavailable + Carlos Livingston MD Unavailable Jelena vailable Trina Carbajal-C Unavailable [phone] Carlos Livingston MD Unavailable Jelena vailable Carlos Livingston MD Unavailable Jelena vailable Trina Carbajal PA-C Unavailable [phone] Mari Funes RN Unavailable Unavailable Jc Zavala MD Unavailable [phone] Barbi Manzo RN Unavailable Unavailable Erasto Root MD Unavailable Cristofer Michelle MD Unavailable [phone] Vivien Blanchard MD Unavailable + [phone] Sapna Hernandez MD Unavailable Vivien Blanchard MD Unavailable + [phone] Virgie Lobato PA-C Unavailable [phone] Teetee Velazquez PA-C Unavailable + [phone] Teetee Velazquez PA-C Unavailable [phone] Cora Shah RN Unavailable [phone] Brad Mayer DO Unavailable [phone] Mary Garcia MD Primary Care Provider Cristal Cooper RN Unavailable Shannon Rowland PA-C Unavailable [phone], LD Unavailabl e Mary Garcia MD Unavailable Melonie Caro [facility] Unavailable [phone] Federico Linda MD Unavailable [phone] Melonie Caro [facility] Unavailable [phone] Virgie Lobato PA-C Unavailable [phone] Barry Ybarra MD Unavailable [phone] Barry Ybarra MD Unavailable [phone] Encounter Details Date Type Department Care Team (Late st Contact Info) Description 08/08/2018 [facility] [address] [address] Ruth Ann Munoz MD [facility] [address] [place] 174348 Social History Tobacco Use Types Packs/Day Years Used Date Smoking Tobacco: Never Smokeless Tobacco: Never Alcohol Use Standard Drinks/Week Comments No 0 (1 standard drink = 0.6 oz pur e alcohol) PHQ-2 Answer Date Recorded PHQ-2 Score 2 06/21/2018 Comments No Sex and Gender Information Value Date Recorded Sex Assigned at Female 07/18/2020 1:16 PM VARNISHING UNIT TOOL SETTER Legal Sex Female 3:23 AM VARNISHING UNIT TOOL SETTER Gender Identity Female 07/18/2020 1:16 PM VARNISHING UNIT TOOL SETTER Sexual Orientation Straight 07/18/2020 1: 16 PM VARNISHING UNIT TOOL SETTER 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 Munoz- see mychart message below. Please advise. Lindsey Cabrera RN Viewed by [employer] on 08/08/2018 ??6:44 PM Written by Ruth Ann Munoz MD on 08/08/2018 ??6:31 PM Dear Nette Bhatt our labs auto send without comments. So your cholesterol is elevated - we can increase your statin dose is that ok? Your microalbumin seems to be high over the last few years and currently the highest it has been. Keeping our blood sugars in control helps with this. What was your exact reaction to lisinopril? Its alternative can cause similar reactions so want to know before we consider that. For further questions or concerns please let us know. ISHING UNIT TOOL SETTER documented in this encounter Plan of Treatment Upcoming Encounters Date Type Department Care Team (Late st Contact Info) Description 11/16/2024 1:00 PM CDT Allied Health/Nurse Visit [facility] Urology [address] [phone] Lucero Britt PA-C [address] [place], [place] 6[address] 11/16/2024 2:45 PM CDT Office Visit [facility] Urology [address] [phone] Vivien Blanchard MD 420 [facility] 394 [place], [place] [id number] 11/20/2024 3:30 PM CDT Office Visit [facility] [address] [place] [phone] [place] [address] [place] [address] 11/22/2024 9:15 AM CDT Office Visit [facility] Heart [facility] [address] [place] [address] [address] [place] [phone] Federico Linda MD 0801 [facility] [address] [place] [address] 11/30/2024 10:30 AM CDT Lab [facility] [address] [place] [phone] 12/06/2024 10:10 AM CDT Office Visit [facility] 6525 [facility] 200 [place] [phone] Virgie Lobato PANilesh 909 [place] [address] 12/28/2024 11:00 AM CDT Office Visit [facility] [address] [phone] [place] [address] [place] [address] 01/26/2025 11:30 AM CDT Office Visit [facility] [address] [place] [phone] [place] [address] [place] [address] documented as of this encounter Visit Diagnoses Not on filedocumented in this encounter Additional Health Concerns Infection Onset Date Last Indicated Resolved Time Rule Out COVID-19 03/08/2021 03/08/2021 03/09/2021 1:42 AM CDT Rule Out C-difficile 03/10/2021 03/10/2021 021 5:50 PM CDT Rule Out COVID-19 2021 2021 04/25/2021 12:41 PM VARNISHING UNIT TOOL SETTER Rule Out COVID-19 06/14/2022 06/14/2022 06/14/2022 11:30 AM VARNISHING UNIT TOOL SETTER Rule Out COVID-19 07/03/2022 07/03/2022 07/04/2022 12:27 AM VARNISHING UNIT TOOL SETTER Rule Out COVID-19 04/01/2024 04/01/2024 04/01/2024 10:07 PM CDT ESBL 07/05/2024 08/24/2024 Rule Out COVID-19 07/16/2024 07/16/2024 07/16/2024 11:04 PM VARNISHING UNIT TOOL SETTER Rule Out COVID-19 09/01/2024 09/01/2024 09/01/2024 2:05 AM CDT Rule Out COVID-19 09/21/2024 09/21/2024 09/21/2024 3:25 PM CDT Assessment Noted Time PHQ-9 Depression Total Score: 6 08/09/19 8:45 AM VARNISHING UNIT TOOL SETTER documented as of this encounter Care Teams Loading Unit Operator Seating Relationship Specialty Start Date End Date Flynn Ruiz MD [address] [place] [address] PCP - Assigned PCP 07/10/18 08/09/18 No Ref-Primary, Physician PCP - General 08/05/18 08/30/18 Ruth Ann Munoz MD PCP - General Family Practice 08/31/18 04/13/19 Flynn Ruiz MD [place] [address] [facility] [address] [place] [address] PCP - General Family Practice 04/14/19 05/18/20 Trina Carbajal PA-C [address] [facility] [address] [place] [address] PCP - General Family Medicine 05/19/20 04/10/24 [place] [address] [place] [address] PCP - General Family Medicine 04/11/[address] [place] [address] Project Developer Dietitian, Registered 11/03/17 Flynn Ruiz MD [address] [place] [address] Assigned PCP 04/24/18 12/24/18 Ruth Ann Munoz MD [place] [address] [employer] [address] [place], [place] [address] Assigned PCP 12/25/18 04/22/19 Ruth Ann Munoz MD [place] [address] [employer] [address] [place], [place] 2[address]38 Assigned PCP 04/30/19 05/27/19 Flynn Ruiz MD [address] [place] [address] Assigned PCP 04/23/19 04/29/19 Flynn Ruiz MD [address] [place], [place] [id number] Assigned PCP 05/28/19 07/22/19 Mari Funes, JERRY Personal Advocate & Liaison (PAL) 07/27/19 07/30/19 Ruth Ann Munoz MD [place] [address] [employer] [address] [place], [place] 723448 Assigned PCP 07/23/19 08/12/19 Trina Carbajal PA-C [address] [place] [address] Assigned PCP 08/13/19 07/27/20 Federico Linda MD [address] [place] [address] Assigned Heart and Vascular Provider 03/29/20 Connie Blackwell MD [address] [place] [address] Assigned Endocrinology Provider 07/14/20 12/19/20 Ruth Ann Munoz MD [place] [address] [facility] 207 [place] [address] Assigned PCP 07/28/20 08/25/20 Carlos Livingston MD NO INFO AVAILABLE Assigned PCP 08/26/20 08/31/20 Trina Carbajal PA-C [address] [place] [address] Assigned PCP 09/01/20 12/07/20 Carlos Livingston MD NO INFO AVAILABLE Assigned Endocrinology Provider 12/20/20 12/18/22 Carlos Livingston MD NO INFO AVAILABLE Assigned PCP 12/08/20 12/19/20 Trina Carbajal PA-C [address] [place] [address] Assigned PCP 12/20/20 04/28/24 Mari Funes, JERRY Personal Advocate & Liaison (PAL) Nurse 01/24/21 06/12/21 Jc Zavala MD [facility] [address] [place] [address] Hematology & Oncology 08/07/21 Barbi Manzo, JERRY Personal Advocate & Liaison (PAL) Family Medicine 12/24/21 07/08/23 [place] [address] [place] [address] [place] [address] Assigned Musculoskeletal Provider 04/04/22 08/19/23 Cristofer Michelle MD [address] [place] [address] Gastroenterology 07/28/22 Vivien Blanchard MD [address] [place] [address] 285835 Urology 07/28/22 Sapna Hernandez MD [address] [place] [address] [phone] Assigned Nephrology Provider 07/11/22 09/25/22 Vivien Blanchard MD [address] [place] [address] 799215 Assigned Surgical Provider 07/25/22 06/30/23 Virgie Lobato, PA-C [address] [place] [address] Assigned Nephrology Provider 09/26/22 03/28/24 Teetee Velazquez PA-C [address] [place] [address] Physician Ceramics Instructor 05/11/23 Teetee Velazquez PA-C [address] [place] [address] Assigned Surgical Provider 07/01/23 Cora Shah, JERRY Personal Advocate & Liaison (PAL) Nurse 07/09/23 09/29/23 [place] [address] [address] Assigned Musculoskeletal Provider 08/20/23 Cristal Cooper, JERRY Lead Concert Or Lecture Hall Manager Primary Care - CC 04/27/2404/08 Shannon Rowland PA-C [address] [place] [phone] Assigned PCP 04/29/24 05/28/24 Lanie Foster, RD, LD [address] [place] [place] [address] Registered Dietitian Nutrition 05/15/24 [place] [address] [place] [address] Assigned PCP 05/29/24 Melonie Caro [facility] [address] [place] [address] Pharmacist Pharmacist 06/05/24 Federico Linda MD [address] [place] [address] Cardiovascular Disease 06/13/24 Melonie Caro [facility] [address] [place] [address] Assigned MTM Pharmacist 06/29/24 Virgie Lobato PA-C [address] [place] [address] Assigned Nephrology Provider 07/30/24 Barry Ybarra MD [address] [place] [address] Hospitalist Infectious Diseases 08/31/24 Barry Ybarra MD [address] [place] [address] Assigned Infectious Disease Provider 10/27/24 documented as of this encounter
--- OUTSIDE RECORDS SUMMARY | 2024-11-12 17:29 | XMS_ITS | Encounter Summary ---
Author Organization [facility] Address [address] [place] [address] Care Team Providers Care School Occupational Therapist Name Role Phone Sheryl Stringer Kirk BENITEZ Unavailable [phone] Federico Linda MD Unavailable [phone] Trina Carbajal PA-C Primary Care Provider Connie Blackwell MD Unavailable [phone] Trina Carbajal PA-C Unavailable [phone] Carlos Livingston MD Unavailable Jelena vailable Carlos Livingston MD Unavailable Jelena vailable Trina Carbajal PA-C Unavailable [phone] Mari Funes RN Unavailable Unavailable Jc Zavala MD Unavailable [phone] Barbi Manzo RN Unavailable Unavailable Erasto Root MD Unavailable Cristofer Michelle MD Unavailable [phone] Vivien Blanchard MD Unavailable [phone] Sapna Hernandez MD Unavailable Vivien Blanchard MD Unavailable [phone] Virgie Lobato PA-C Unavailable [phone] Teetee Velazquez PA-C Unavailable [phone] Teetee Velazquez PA-C Unavailable [phone] Cora Shah RN Unavailable Brad Mayer DO Unavailable [phone] Mary Garcia MD Primary Care Provider [phone] Cristal Cooper RN Unavailable Shannon Rowland PA-C Unavailable [phone], LD Unavailabl e Mary Garcia MD Unavailable Melonie Caro [facility] Unavailable Federico Linda MD Unavailable Melonie Caro [facility] Unavailable Virgie viramontes PA-C Unavailable [phone] Barry Ybarra MD Unavailable Barry Ybarra MD Unavailable Reason for Visit * Reason Comments Medication Refill Encounter Details Date Type Department Care Team (Late st Contact Info) Description 10/14/2020 [facility] [address] [place] [address] Trina Carbajal PA-C [address] [place] [address] Medication Refill Social History Tobacco Use Types Packs/Day Years Used Date Smoking Tobacco: Never Smokeless Tobacco: Never Alcohol Use Standard Drinks/Week Comments No 0 (1 standard drink = 0.6 oz pur e alcohol) PHQ-2 Answer Date Recorded PHQ-2 Score 0 08/23/2020 Comments No Sex and Gender Information Value Date Recorded Sex Assigned at Female 07/18/2020 1:16 PM TANK REFINISHER Legal Sex Female 3:23 AM TANK REFINISHER Gender Identity Female 07/18/2020 1:16 PM TANK REFINISHER Sexual Orientation Straight 07/18/2020 1: 16 PM TANK REFINISHER 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 Princess Santoyo RN on 10/15/2020 at 10:49 AM documented in this encounter Plan of Treatment Upcoming Encounters Date Type Department Care Team (Late st Contact Info) Description 11/16/2024 1:00 PM CDT Allied Health/Nurse Visit [facility] Urology [address] [address] Lucero Britt PA-C 500 [place], [place] [address] 11/16/2024 2:45 PM CDT Office Visit [facility] Urology [address] [phone] Vivien Blanchard MD 420 [facility] 394 [place], [place] 6[address] 11/20/2024 3:30 PM CDT Office Visit [address] [phone] Mary Garcia MD [address] [place] [address] 11/22/2024 9:15 AM CDT Office Visit [facility] Heart [facility] [address] [facility] [address] [place] [phone] Federico Linda MD 6408 [facility] [address] [place] [address] 11/30/2024 10:30 AM CDT Lab [facility] [address] [place] [phone] 12/06/2024 10:10 AM CDT Office Visit [facility] 6525 [facility] 200 [place] [phone] Virgie Lobato, PA-C 909 [place] [address] 12/28/2024 11:00 AM CDT Office Visit [facility] 2945 [facility] 200 [place] [phone] [place] [address] [place] [address] 200 [place] [address] 01/26/2025 11:30 AM CDT Office Visit [facility] [address] [place] [address] [place] [address] [place] [address] documented as of this encounter Goals Goal Patient Goal Type Associated Problems Recent Progress Patient-Stated? Author Problem Solving General On track( 019 9:24 AM TANK REFINISHER) Yes Sheryl Stringer RD Note: My Goal: I will reduce risk of low blood sugars over-night What I need to meet my goal: follow instructions for taking Novolog before meals only I plan to meet my goal by this date: 1 week documented as of this encounter Visit Diagnoses Diagnosis Post-nasal drip Postnasal drip documented in this encounter Additional Health Concerns Infection Onset Date Last Indicated Resolved Time Rule Out COVID-19 03/08/2021 03/08/2021 03/09/2021 1:42 AM CDT Rule Out C-difficile 03/10/2021 03/10/2021 5:50 PM CDT Rule Out COVID-19 2021 2021 04/25/2021 12:41 PM TANK REFINISHER Rule Out COVID-19 06/14/2022 06/14/2022 06/14/2022 11:30 AM TANK REFINISHER Rule Out COVID-19 07/03/2022 07/03/2022 07/04/2022 12:27 AM TANK REFINISHER Rule Out COVID-19 04/01/2024 04/01/2024 04/01/2024 10:07 PM CDT ESBL 07/05/2024 08/24/2024 Rule Out COVID-19 07/16/2024 07/16/2024 07/16/2024 11:04 PM TANK REFINISHER Rule Out COVID-19 09/01/2024 09/01/2024 09/01/2024 2:05 AM CDT Rule Out COVID-19 09/21/2024 09/21/2024 09/21/2024 3:25 PM CDT Assessment Noted Time PHQ-9 Depression Total Score: 6 08/25/19 21 7:03 AM CDT documented as of this encounter Care Teams School Occupational Therapist Relationship Specialty Start Date End Date Trina Carbajal PAAnthonyC [address] [facility] [address] [place] [address] PCP - General Family Medicine 05/19/20 04/10/24 [place] [address] [place] [address] PCP - General Family Medicine 04/11/[address] [place] [address] Ballistician Dietitian, Registered 11/03/17 Federico Linda MD [address] [place] [address] Assigned Heart and Vascular Provider 03/29/20 Connie Blackwell MD [address] [place] [address] Assigned Endocrinology Provider 07/14/20 12/19/20 Trina Carbajal PA-C [address] [place] [address] Assigned PCP 09/01/20 12/07/20 Carlos Livingston MD NO INFO AVAILABLE Assigned Endocrinology Provider 12/20/20 12/18/22 Carlos Livingston MD NO INFO AVAILABLE Assigned PCP 12/08/20 12/19/20 Trina Carbajal PA-C [address] [place] [address] Assigned PCP 12/20/20 04/28/24 Mari Funes, JERRY Personal Advocate & Liaison (PAL) Nurse 01/24/21 06/12/21 Jc Zavala MD [facility] [address] [place] [address] Hematology & Oncology 08/07/21 Barbi Manzo, JERRY Personal Advocate & Liaison (PAL) Family Medicine 12/24/21 07/08/23 [place] [address] [place] [address] [address] Assigned Musculoskeletal Provider 04/04/22 08/19/23 Cristofer Michelle MD [address] [place] [address] 505675 Gastroenterology 07/28/22 Vivien Blanchard MD [address] [place] [address] [phone] Urology 07/28/22 Sapna Hernandez MD [address] [place] [address] [phone] Assigned Nephrology Provider 07/11/22 09/25/22 Vivien Blanchard MD [address] [place] [address] 497455 Assigned Surgical Provider 07/25/22 06/30/23 Virgie Lobato PA-C [address] [place] [address] 464695 Assigned Nephrology Provider 09/26/22 03/28/24 Teetee Velazquez PA-C [address] [place] [address] 167745 Physician Pictures Editor 05/11/23 Teetee Velazquez PA-C [address] [place] [address] 110685 Assigned Surgical Provider 07/01/23 Cora Shah, RN Personal Advocate & Liaison (PAL) Nurse 07/09/23 09/29/23 [place] [address] [facility] [address] [address] Assigned Musculoskeletal Provider 08/20/23 Cristal Cooper, JERRY Lead Vacuum Extractor Operator Primary Care - CC 04/27/2404/08 Shannon Rowland PA-C [address] [place] [address] Assigned PCP 04/29/24 05/28/24 Lanie Foster, RD, LD [address] [place] [place] [address] Registered Dietitian Nutrition 05/15/24 [place] [address] [facility] [place] [address] Assigned PCP 05/29/24 Melonie Caro [facility] [address] [place] [address] Pharmacist Pharmacist 06/05/24 Federico Linda MD [address] [facility] [address] [place] [address] Cardiovascular Disease 06/13/24 Melonie Caro [facility] [address] [place] [address] Assigned MTM Pharmacist 06/29/24 Virgie Lobato PA-C [address] [place] [address] Assigned Nephrology Provider 07/30/24 Barry Ybarra MD [address] [place] [address] Hospitalist Infectious Diseases 08/31/24 Barry Ybarra MD [address] [place] [address] Assigned Infectious Disease Provider 10/27/24 documented as of this encounter
--- OUTSIDE RECORDS SUMMARY | 2024-11-12 17:29 | XMS_ITS | Encounter Summary ---
Author Organization [place] Address [address] [place] [address] Care Team Providers Care [employer] Name Role Phone Sheryl Stringer ELI Unavailable Flynn Ruiz MD Unavailable [phone] Ruth Ann Munoz MD Primary Care Prov ider Ruth Ann Munoz MD Unavailable + Flynn Ruiz MD Primary Care Provider [phone] Ruth Ann Munoz MD Unavailable + Flynn Ruiz MD Unavailable [phone] Flynn Ruiz MD Unavailable [phone] Mari Funes RN Unavailable Unavailable Ruth Ann Munoz MD Unavailable + Trina Carbajal PA-C Unavailable [phone] Federico Linda MD Unavailable [phone] Trina Carbajal PA-C Primary Care Provider [phone] Connie Blackwell MD Unavailable [phone] Ruth [...] Cristofer Michelle MD Unavailable +[phone] Vivien Blanchrad MD Unavailable + [phone] Sapna Hernandez MD Unavailable Vivien Blanchard MD Unavailable +[phone] Virgie Lobato PA-C Unavailable +[phone] Teetee Velazquez PA-C Unavailable +[phone] Teetee Velazquez PA-C Unavailable +[phone] Cora Shah RN Unavailable [phone] Brad Mayer DO Unavailable [phone] Mary Garcia MD Primary Care Provider [phone] Cristal Cooper RN Unavailable Shannon Rowland PA-C Unavailable [phone], LD Unavailabl e Mary Garcia MD Unavailable Melonie Caro [facility] Unavailable [phone] Federico Linda MD Unavailable [phone] Melonie Caro [facility] Unavailable +[phone] Virgie Lobato PA-C Unavailable +[phone] Barry Ybarra MD Unavailable +[phone] Barry Ybarra MD Unavailable +[phone] Encounter Details Date Type Department Care Team (Late st Contact Info) Description 09/13/2018 MyC Medical Advice [address] 389372 Sheryl Stringer, [address] [place] [address] Social History Tobacco Use Types Packs/Day Years Used Date Smoking Tobacco: Never Smokeless Tobacco: Never Alcohol Use Standard Drinks/Week Comments No 0 (1 standard drink = 0.6 oz pur e alcohol) PHQ-2 Answer Date Recorded PHQ-2 Score 2 06/21/2018 Comments No Sex and Gender Information Value Date Recorded Sex Assigned at Female 07/18/2020 1:16 PM INSPECTOR PENETRANT Legal Sex Female 3:23 AM INSPECTOR PENETRANT Gender Identity Female 07/18/2020 1:16 PM INSPECTOR PENETRANT Sexual Orientation Straight 07/18/2020 1: 16 PM INSPECTOR PENETRANT 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 Not on file Not on file documented as of this encounter Plan of Treatment Upcoming Encounters Date Type Department Care Team (Late st Contact Info) Description 11/16/2024 1:00 PM CDT Allied Health/Nurse Visit [facility] [address] [address] Lucero Britt PA-C [address] [place] [address] 261[address] 11/16/2024 2:45 PM CDT Office Visit [facility] [address] [phone] Vivien Blanchard MD [address] [facility] 394 [place] [address] 11/20/2024 3:30 PM CDT Office Visit [facility] [address] [place] [phone] [place] [address] [place] [address] 11/22/2024 9:15 AM CDT Office Visit [facility] [address] [facility] [address] [place] [phone] Federico Linda MD [address] [facility] [address] [place], [place] [address] 11/30/2024 10:30 AM CDT Lab [facility] [address] [place] [phone] 12/06/2024 10:10 AM CDT Office Visit [facility] 65[address] [facility] 200 [place] [phone] Virgie Lobato, PA-C [address] [place] [address] 12/28/2024 11:00 AM CDT Office Visit [facility] [address] [place] [address] 200 [place] [phone] [place] [address] [place] [address] 200 [place] [address] 01/26/2025 11:30 AM CDT Office Visit [address] [phone] [place] [address] [place] [address] documented as of this encounter Goals Goal Patient Goal Type Associated Problems Recent Progress Patient-Stated? Author Problem Solving General On track( 9:24 AM INSPECTOR PENETRANT) Yes Sheryl Stringer RD Note: My Goal: [...] Out COVID-19 2021 2021 04/25/2021 12:41 PM INSPECTOR PENETRANT Rule Out COVID-19 06/14/2022 06/14/2022 06/14/2022 11:30 AM INSPECTOR PENETRANT Rule Out COVID-19 07/03/2022 07/03/2022 07/04/2022 12:27 AM INSPECTOR PENETRANT Rule Out COVID-19 04/01/2024 04/01/2024 04/01/2024 10:07 PM CDT ESBL 07/05/2024 08/24/2024 Rule Out COVID-19 07/16/2024 07/16/2024 07/16/2024 11:04 PM INSPECTOR PENETRANT Rule Out COVID-19 09/01/2024 09/01/2024 09/01/2024 2:05 AM CDT Rule Out COVID-19 09/21/2024 09/21/2024 09/21/2024 3:25 PM CDT Assessment Noted Time PHQ-9 Depression Total Score: 6 08/09/19 19 8:45 AM INSPECTOR PENETRANT documented as of this encounter Care Teams [employer] Relationship Specialty Start Date End Date CarrabelleRuth Ann Hewitt MD [address] [place] [address] PCP - General Family Practice 08/31/18 04/13/19 Flynn Ruiz MD [place] [address] [place], [place] [address] PCP - General Family Practice 04/14/19 05/18/20 Trina Carbajal PA-C [address] [facility] [address] [place] [address]90[address] PCP - General Family Medicine 05/19/20 04/10/24 [place] [address] [place], [place] [phone] PCP - General Family Medicine 04/11/[address] [place] [phone] Security Investigator Dietitian, Registered 11/03/17 Flynn Ruiz MD [address] [place] [address] Assigned PCP 04/24/18 12/24/18 Ruth Ann Munoz MD [place] [address] [place] [address] Assigned PCP 12/25/18 04/22/19 Ruth Ann Munoz MD [place] [address] [place] [address] Assigned PCP 04/30/19 05/27/19 Flynn Ruiz MD [address] [place] [address] Assigned PCP 04/23/19 04/29/19 Flynn Ruiz MD [address] [place] [address] Assigned PCP 05/28/19 07/22/19 Mari Funes, JERRY Personal Advocate & Liaison (PAL) 07/27/19 07/30/19 Ruth Ann Munoz MD [place] [address] [place] [address] Assigned PCP 07/23/19 08/12/19 Trina Carbajal PA-C [address] [place] [phone] Assigned PCP 08/13/19 07/27/20 Federico Linda MD [address] [place] [address] Assigned Heart and Vascular Provider 03/29/20 Connie Blackwell MD [address] [place], [place] [address] Assigned Endocrinology Provider 07/14/20 12/19/20 Ruth Ann Munoz MD [place] [address] [place] [address] Assigned PCP 07/28/20 08/25/20 Carlos Livingston MD NO INFO AVAILABLE Assigned PCP 08/26/20 08/31/20 Trina Carbajal PA-C [address] [place] [address] Assigned PCP 09/01/20 12/07/20 Carlos Livingston MD NO INFO AVAILABLE Assigned Endocrinology Provider 12/20/20 12/18/22 Carlos Livingston MD NO INFO AVAILABLE Assigned PCP 12/08/20 12/19/20 Trina Carbajal PA-C [address] [place] [address] Assigned PCP 12/20/20 04/28/24 Mari Funes RN Personal Advocate & Liaison (PAL) Nurse 01/24/21 06/12/21 Jc Zavala MD [place] [facility] [address] [facility] 100 [place] [address] Hematology & Oncology 08/07/21 Barbi Manzo, JERRY Personal Advocate & Liaison (PAL) Family Medicine 12/24/21 07/08/23 [place] [address] [place] [address] Assigned Musculoskeletal Provider 04/04/22 08/19/23 Cristofer Michelle MD 6 [facility] 1E [place], [place] [address]39[address] Gastroenterology 07/28/22 Vivien Blanchard MD [address] [place] [address] [phone] Urology 07/28/22 Sapna Hernandez MD [address] [place] [address] 114475 Assigned Nephrology Provider 07/11/22 09/25/22 Vivien Blanchard MD [address] [place] [address] 678185 Assigned Surgical Provider 07/25/22 06/30/23 Virgie Lobato PA-C [address] [place] [address] 483625 Assigned Nephrology Provider 09/26/22 03/28/24 Teetee Velazquez PA-C [address] [place] [address] [phone] Physician Sql Developer 05/11/23 Teetee Velazquez PA-C [address] [place] [address] Assigned Surgical Provider 07/01/23 Cora Shah, JERRY Personal Advocate & Liaison (PAL) Nurse 07/09/23 09/29/23 [place] [address] RONALD ESPINOSA, [address] [address] Assigned Musculoskeletal Provider 08/20/23 Cristal Cooper, RN Lead Manager Food Safety Primary Care - CC 04/27/2404/08 Shannon Rowland [place]-C [address] [place] [address] Assigned PCP 04/29/24 05/28/24 Lanie Foster, RD, LD [address] [place], [place] [phone] Registered Dietitian Nutrition 05/15/24 [place] [address] [place] [address] Assigned PCP 05/29/24 Melonie Caro [facility] [address] [place] [address] Pharmacist Pharmacist 06/05/24 Federico Linda MD [address] [facility] [address] [place] [address] Cardiovascular Disease 06/13/24 Melonie Caro [facility] [address] [place] [address] Assigned MTM Pharmacist 06/29/24 Virgie Lobato PA-C [address] [place] [address] Assigned Nephrology Provider 07/30/24 Barry Ybarra MD [facility] [phone] Hospitalist Infectious Diseases 08/31/24 Barry Ybarra MD [facility] [address] [address] Assigned Infectious Disease Provider 10/27/24 documented as of this encounter
--- OUTSIDE RECORDS SUMMARY | 2024-11-12 17:29 | XMS_ITS | Encounter Summary ---
Author Organization [place] Address [address] [place] [address] Care Team Providers Care Photogrammetrist Name Role Phone Sheryl Stringer Kirk [place] Unavailable [phone] Federico Linda MD Unavailable [phone] Trina Carbajal PA-C Primary Care Provider Connie Blackwell MD Unavailable [phone] Trina Carbajal PA-C Unavailable [phone] Carlos Livingston MD Unavailable Jelena vailable Carlos Livingston MD Unavailable Jelena vailable Trina Carbajal PA-C Unavailable [phone] Mari Funes RN Unavailable Unavailable Jc Zavala MD Unavailable [phone] Barbi Manzo RN Unavailable Unavailable Erasto Root MD Unavailable Cristofer Michelle MD Unavailable [phone] Vivien Blanchard MD Unavailable [phone] Sapna Hernandez MD Unavailable Vivien Blanchard MD Unavailable [phone] Virgie Lobato PA-C Unavailable [phone] Teetee Velazquez PA-C Unavailable [phone] Teetee Velazquez PA-C Unavailable [phone] Cora Shah RN Unavailable [phone] Brad Mayer DO Unavailable [phone] Mary Garcia MD Primary Care Provider Cristal Cooper RN Unavailable Shannon Rowland PA-C Unavailable [phone], LD Unavailabl e Mary Garcia MD Unavailable Melonie Caro [facility] Unavailable Federico Linda MD Unavailable Melonie Caro [facility] Unavailable Virgie viramontes PA-C Unavailable [phone] Barry Ybarra MD Unavailable [phone] Barry Ybarra MD Unavailable [phone] Encounter Details Date Type Department Care Team (Late st Contact Info) Description 12/04/2020 [facility] Medical Advice [address] [place] [address] Kika Swann Social History Tobacco Use Types Packs/Day Years Used Date Smoking Tobacco: Never Smokeless Tobacco: Never Alcohol Use Standard Drinks/Week Comments No 0 (1 standard drink = 0.6 oz pur e alcohol) PHQ-2 Answer Date Recorded PHQ-2 Score 0 08/23/2020 Comments No Sex and Gender Information Value Date Recorded Sex Assigned at Female 07/18/2020 1:16 PM [facility] SHIFT LEAD Legal Sex Female 3:23 AM [facility] SHIFT LEAD Gender Identity Female 07/18/2020 1:16 PM [facility] SHIFT LEAD Sexual Orientation Straight 07/18/2020 1: 16 PM [facility] SHIFT LEAD 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 Unable to assess 12/06/2020 9:51 AM CDT documented as of this encounter Plan of Treatment Upcoming Encounters Date Type Department Care Team (Late st Contact Info) Description 11/16/2024 1:00 PM CDT Allied Health/Nurse Visit [facility] [address] [phone] Lucero Britt PA-C 500 [place], [place] [phone] 11/16/2024 2:45 PM CDT Office Visit [facility] [address] [phone] Vivien Blanchard MD 420 [facility] 394 [place], [place] [address] 11/20/2024 3:30 PM CDT Office Visit [address] [phone] [place] [address] [place] [address] 11/22/2024 9:15 AM CDT Office Visit [facility] Heart [facility] [address] [facility] [address] [place] [phone] Federico Linda MD [address] [facility] [address] [place], [place] [address] 11/30/2024 10:30 AM CDT Lab [facility] [address] [place] [phone] 12/06/2024 10:10 AM CDT Office Visit [facility] 6525 [facility] 200 [place] [phone] Virgie Lobato, SANTOS [address] [place] [address] 12/28/2024 11:00 AM CDT Office Visit [facility] [address] [phone] Barry Ybarra MD [address] [address] 01/26/2025 11:30 AM CDT Office Visit [facility] [address] [place] [phone] [place] [phone] [place] [place] [address] documented as of this encounter Goals Goal Patient Goal Type Associated Problems Recent Progress Patient-Stated? Author Problem Solving General On track( 019 9:24 AM [facility] SHIFT LEAD) Yes Sheryl Stringer RD Note: My [...] Out COVID-19 2021 2021 04/25/2021 12:41 PM [facility] SHIFT LEAD Rule Out COVID-19 06/14/2022 06/14/2022 06/14/2022 11:30 AM [facility] SHIFT LEAD Rule Out COVID-19 07/03/2022 07/03/2022 07/04/2022 12:27 AM [facility]PITAL SHIFT LEAD Rule Out COVID-19 04/01/2024 04/01/2024 04/01/2024 10:07 PM CDT ESBL 07/05/2024 08/24/2024 Rule Out COVID-19 07/16/2024 07/16/2024 07/16/2024 11:04 PM [facility] SHIFT LEAD Rule Out COVID-19 09/01/2024 09/01/2024 09/01/2024 2:05 AM CDT Rule Out COVID-19 09/21/2024 09/21/2024 09/21/2024 3:25 PM CDT Assessment Noted Time PHQ-9 Depression Total Score: 6 08/25/19 21 7:03 AM CDT documented as of this encounter Care Teams Photogrammetrist Relationship Specialty Start Date End Date Trina Carbajal PA-C [address] [place] [address] PCP - General Family Medicine 05/19/20 04/10/24 [place] [address] [place] [address] PCP - General Family Medicine 04/11/[address] [facility] [address] [place] [address] [place] [address] [employer] Registrar Dietitian, Registered 11/03/17 Federico Linda MD [address] [place] [address] Assigned Heart and Vascular Provider 03/29/20 Connie Blackwell MD [address] [place] [address] Assigned Endocrinology Provider 07/14/20 12/19/20 Trina Carbajal PA-C [address] [place], [place] [address] Assigned PCP 09/01/20 12/07/20 Carlos Livingston MD NO INFO AVAILABLE Assigned Endocrinology Provider 12/20/20 12/18/22 Carlos Livingston MD NO INFO AVAILABLE Assigned PCP 12/08/20 12/19/20 Trina Carbajal PA-C 6[address] [facility] [address] [facility] [address] [place] [address] Assigned PCP 12/20/20 04/28/24 Mari Funes, JERRY Personal Advocate & Liaison (PAL) Nurse 01/24/21 06/12/21 Jc Zavala MD [place] [facility] [address] [facility] 100 [place] [address] Hematology & Oncology 08/07/21 Barbi Manzo, JERRY Personal Advocate & Liaison (PAL) Family Medicine 12/24/21 07/08/23 [place] [address] [facility] 300 [place] [address] Assigned Musculoskeletal Provider 04/04/22 08/19/23 Cristofer Michelle MD [address] [place] [address] Gastroenterology 07/28/22 Vivien Blanchard MD [address] [place] [address] Urology 07/28/22 Sapna Hernandez MD [address] [address] Assigned Nephrology Provider 07/11/22 09/25/22 Vivien Blanchard MD [address] [place] [address] [phone] Assigned Surgical Provider 07/25/22 06/30/23 Virgie Lobato PA-C [address] [place] [address] Assigned Nephrology Provider 09/26/22 03/28/24 Teetee Velazquez PA-C [address] [place] [address] Physician Blueprint Cutter 05/11/23 Teetee Velazquez PA-C [address] [place] [address] Assigned Surgical Provider 07/01/23 Cora Shah RN Personal Advocate & Liaison (PAL) Nurse 07/09/23 09/29/23 [place] [address] [address] [address] Assigned Musculoskeletal Provider 08/20/23 Cristal Cooper, RN Lead Clerk Stenographer Primary Care - CC 04/27/2404/08 Shannon Rowland PA-C [address] [place] [address] Assigned PCP 04/29/24 05/28/24 Lanie Foster, RD, LD [address] [place] [place] 4080[address] Registered Dietitian Nutrition 05/15/24 [place] [address] [place], [place] 9540[address] Assigned PCP 05/29/24 Melonie Caro [facility] [address] [place], [place] 159967 Pharmacist Pharmacist 06/05/24 Federico Linda MD [address] [place] [address] Cardiovascular Disease 06/13/24 Melonie Caro [facility] [address] [place], [place] 08[address] Assigned MTM Pharmacist 06/29/24 Virgie Lobato PA-C 909 [place], [place] 478695 Assigned Nephrology Provider 07/30/24 Barry Ybarra MD [address] [place] [address] Hospitalist Infectious Diseases 08/31/24 Barry Ybarra MD [address] [place] [address] Assigned Infectious Disease Provider 10/27/24 documented as of this encounter
--- OUTSIDE RECORDS SUMMARY | 2024-11-12 17:29 | XMS_ITS | Encounter Summary ---
Author Organization [facility] Address [address] [place] [address] Care Team Providers Care Hogshead Roller Name Role Phone Sheryl Stringer Kirk BENITEZ Unavailable [phone] Federico Linda MD Unavailable [phone] Trina Carbajal PA-C Primary Care Provider Connie Blackwell MD Unavailable [phone] Trina Carbajal PA-C Unavailable [phone] Carlos Livingston MD Unavailable Jelena vailable Carlos Livingston MD Unavailable Jelena vailable Trina Carbajal PA-C Unavailable [phone] Mari Funes RN Unavailable Unavailable Jc Zavala MD Unavailable [phone] Barbi Manzo RN Unavailable Unavailable Erasto Root MD Unavailable Cristofer Michelle MD Unavailable [phone] Vivien Blanchard MD Unavailable [phone] Sapna Hernandez MD Unavailable Vivien Blanchard MD Unavailable [phone] Virgie Lobato PA-C Unavailable [phone] Teetee Velazquez PA-C Unavailable [phone] Teetee Velazquez PA-C Unavailable [phone] Cora Shah RN Unavailable [phone] Brad Mayer DO Unavailable [phone] Mary Garcia MD Primary Care Provider Cristal Cooper RN Unavailable Shannon Rowland PA-C Unavailable Lanie Foster RD, LD Unavailabl e Mary Garcia MD Unavailable Melonie Caro [facility] Unavailable Federico Linda MD Unavailable [phone] Melonie Caro [facility] Unavailable Virgie viramontes PA-C Unavailable [phone] Barry Ybarra MD Unavailable [phone] Barry Ybarra MD Unavailable [phone] Encounter Details Date Type Department Care Team (Late st Contact Info) Description 12/06/2020 [facility] Medical Advice [address] [place] [address] Carlos Livingston MD NO INFO AVAILABLE Social History Tobacco Use Types Packs/Day Years Used Date Smoking Tobacco: Never Smokeless Tobacco: Never Alcohol Use Standard Drinks/Week Comments No 0 (1 standard drink = 0.6 oz pur e alcohol) PHQ-2 Answer Date Recorded PHQ-2 Score 0 08/23/2020 Comments No Sex and Gender Information Value Date Recorded Sex Assigned at Female 07/18/2020 1:16 PM DIESEL MECHANIC Legal Sex Female 3:23 AM DIESEL MECHANIC Gender Identity Female 07/18/2020 1:16 PM DIESEL MECHANIC Sexual Orientation Straight 07/18/2020 1: 16 PM DIESEL MECHANIC 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 [address] [place] [phone] Federico Linda MD 1162 [facility] [address] [place], [place] [address] 11/30/2024 10:30 AM CDT Lab [facility] [address] [place] [phone] 12/06/2024 10:10 AM CDT Office Visit [facility] 6525 [facility] 200 [place] [phone] Virgie Lobato PANilesh [address] [place] [address] 12/28/2024 11:00 AM CDT Office Visit [facility] [address] [phone] Barry Ybarra MD [address] [place] [address] 01/26/2025 11:30 AM CDT Office Visit [facility] [address] [place] [phone] [place] [phone] [place] [address] documented as of this encounter Goals Goal Patient Goal Type Associated Problems Recent Progress Patient-Stated? Author Problem Solving General On track( 019 9:24 AM DIESEL MECHANIC) Yes Sheryl Stringer RD Note: My [...] Out COVID-19 2021 2021 04/25/2021 12:41 PM DIESEL MECHANIC Rule Out COVID-19 06/14/2022 06/14/2022 06/14/2022 11:30 AM DIESEL MECHANIC Rule Out COVID-19 07/03/2022 07/03/2022 07/04/2022 12:27 AM DIESEL MECHANIC Rule Out COVID-19 04/01/2024 04/01/2024 04/01/2024 10:07 PM CDT ESBL 07/05/2024 08/24/2024 Rule Out COVID-19 07/16/2024 07/16/2024 07/16/2024 11:04 PM DIESEL MECHANIC Rule Out COVID-19 09/01/2024 09/01/2024 09/01/2024 2:05 AM CDT Rule Out COVID-19 09/21/2024 09/21/2024 09/21/2024 3:25 PM CDT Assessment Noted Time PHQ-9 Depression Total Score: 6 08/25/19 21 7:03 AM CDT documented as of this encounter Care Teams Hogshead Roller Relationship Specialty Start Date End Date Trina Carbajal PA-C [address] [place] [address] PCP - General Family Medicine 05/19/20 04/10/24 [place] [address] [place] [address] PCP - General Family Medicine 04/11/[address] [facility] JENNIFERLA VETA [place] [address] Bonderizer Dietitian, Registered 11/03/17 Federico Linda MD [address] [place] [address] Assigned Heart and Vascular Provider 03/29/20 Connie Blackwell MD [address] [place], [place] [address] Assigned Endocrinology Provider 07/14/20 12/19/20 Trina Carbajal PA-C [address] [place] [address] Assigned PCP 09/01/20 12/07/20 Carlos Livingston MD NO INFO AVAILABLE Assigned Endocrinology Provider 12/20/20 12/18/22 Carlos Livingston MD NO INFO AVAILABLE Assigned PCP 12/08/20 12/19/20 Trina Carbajal PA-C [address] [facility] [address] [place] [address] Assigned PCP 12/20/20 04/28/24 Mari Funes, JERRY Personal Advocate & Liaison (PAL) Nurse 01/24/21 06/12/21 Jc Zavala MD [place] [facility] [place] [address] [place] [address] Hematology & Oncology 08/07/21 Barbi Manzo, JERRY Personal Advocate & Liaison (PAL) Family Medicine 12/24/21 07/08/23 [place] [address] [facility] [address] [place] [address] Assigned Musculoskeletal Provider 04/04/22 08/19/23 Cristofer Michelle MD [address] [place] [address] [address] [place] [address] Gastroenterology 07/28/22 Vivien Blanchard MD [address] [place] [address] Urology 07/28/22 Sapna Hernandez MD [address] [place] [address] Assigned Nephrology Provider 07/11/22 09/25/22 Vivien Blanchard MD [address] [place] [address] Assigned Surgical Provider 07/25/22 06/30/23 Virgie Lobato PA-C [address] [place] [address] [phone] Assigned Nephrology Provider 09/26/22 03/28/24 Teetee Velazquez PA-C [address] [place] [address] Physician [employer] Planners 05/11/23 Teetee Velazquez PA-C [address] [place] [address] 645425 Assigned Surgical Provider 07/01/23 Cora Shah, JERRY Personal Advocate & Liaison (PAL) Nurse 07/09/23 09/29/23 [place] [address] [address], [address] [place] [address] Assigned Musculoskeletal Provider 08/20/23 Cristal Cooper, RN Lead Automotive Lot Attendant Primary Care - CC 04/27/2404/08 Shannon Rowland PA-C [address] [place] [phone] Assigned PCP 04/29/24 05/28/24 Lanie Foster, RD, LD [address] [place], [place] [address] Registered Dietitian Nutrition 05/15/24 [place] [address] [place] [address] Assigned PCP 05/29/24 Melonie Caro RPH [address] [place] [place], [place] [address] Pharmacist Pharmacist 06/05/24 Federico Linda MD [address] [facility] [address] [place], [place] [address] Cardiovascular Disease 06/13/24 Melonie Caro RPH [address] [place], [place] 4[address] Assigned MTM Pharmacist 06/29/24 Virgie Lobato PA-C 9 [place], [place] 9[address] Assigned Nephrology Provider 07/30/24 Barry Ybarra MD [address] [place] [address] Hospitalist Infectious Diseases 08/31/24 Barry Ybarra MD [address] [place] [address] Assigned Infectious Disease Provider 10/27/24 documented as of this encounter
--- OUTSIDE RECORDS SUMMARY | 2024-11-12 17:29 | XMS_ITS | Encounter Summary ---
Author Organization [facility] Address [address] [place] [address] Care Team Providers Care Medical Unit Secretary Name Role Phone Sheryl Stringer Kirk BENITEZ Unavailable [phone] Federico Linda MD Unavailable [phone] Trina Carbajal PA-C Primary Care Provider + [phone] Connie Blackwell MD Unavailable [phone] Carlos Livingston MD Unavailable Jelena vailable Carlos Livingston MD Unavailable Jelena vailable Trina Carbajal PA-C Unavailable [phone] Mari Funes RN Unavailable Unavailable Jc Zavala MD Unavailable [phone] Barbi Manzo RN Unavailable Unavailable Erasto Root MD Unavailable Cristofer Michelle MD Unavailable [phone] Vivien Blanchard MD Unavailable [phone] Sapna Hernandez MD Unavailable Vivien Blanchard MD Unavailable Virgie Lobato PA-C Unavailable [phone] Teetee Velazquez PA-C Unavailable [phone] Teetee Velazquez PA-C Unavailable [phone] Cora Shah RN Unavailable Brad Mayer DO Unavailable [phone] Mary Garcia MD Primary Care Provider [phone] Cristal Cooper RN Unavailable Shannon Rowland PA-C Unavailable [phone], LD Unavailabl e Mary Garcia MD Unavailable Melonie Caro [facility] Unavailable Federico Linda MD Unavailable Melonie Caro [facility] Unavailable Virgie viramontes PA-C Unavailable [phone] Barry Ybarra MD Unavailable Barry Ybarra MD Unavailable Reason for Visit * Reason Comments Medication Refill Encounter Details Date Type Department Care Team (Late st Contact Info) Description 12/09/[address] [facility] [address] [place] [address] Jewel Kendrick MD [address] [place] [place] [address] Medication Refill Social History Tobacco Use Types Packs/Day Years Used Date Smoking Tobacco: Never Smokeless Tobacco: Never Alcohol Use Standard Drinks/Week Comments No 0 (1 standard drink = 0.6 oz pur e alcohol) PHQ-2 Answer Date Recorded PHQ-2 Score 0 08/23/2020 Comments No Sex and Gender Information Value Date Recorded Sex Assigned at Female 07/18/2020 1:16 PM TRANSPORTATION DEPARTMENT SUPERVISOR Legal Sex Female 3:23 AM TRANSPORTATION DEPARTMENT SUPERVISOR Gender Identity Female 07/18/2020 1:16 PM TRANSPORTATION DEPARTMENT SUPERVISOR Sexual Orientation Straight 07/18/2020 1: 16 PM TRANSPORTATION DEPARTMENT SUPERVISOR 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 Unable to assess 12/06/2020 9:51 AM CDT documented as of this encounter Miscellaneous Notes * Telephone Encounter - Leo Borjas - 12/10/2020 2:29 PM CDT Not rmg patient documented in this encounter Plan of Treatment Upcoming Encounters Date Type Department Care Team (Late st Contact Info) Description 11/16/2024 1:00 PM CDT Allied Health/Nurse Visit [facility] Urology [address] [address] Lucero Britt PA-C 500 [place], [place] [address] 11/16/2024 2:45 PM CDT Office Visit [facility] [address] [phone] Vivien Blanchard MD 420 [facility] 394 [place], [place] [address] 11/20/2024 3:30 PM CDT Office Visit [address] [phone] Mary Garcia MD [address] [place] [address] 11/22/2024 9:15 AM CDT Office Visit [facility] Heart [facility] [address] [facility] [address] [place] [phone] Federico Linda MD 6405 [facility] [address] [place] [address] 11/30/2024 10:30 AM CDT Lab [facility] [address] [place] [phone] 12/06/2024 10:10 AM CDT Office Visit [facility] [address] [facility] 200 [place] [phone] Virgie Lobato, PA-C 909 [place] [address] 12/28/2024 11:00 AM CDT Office Visit [facility] 2945 [facility] 200 [place] [phone] Barry Ybarra MD [address] [place] [address] 200 [place] [address] 01/26/2025 11:30 AM CDT Office Visit [facility] [address] [place] [address] [place] [address] [place] [address] documented as of this encounter Goals Goal Patient Goal Type Associated Problems Recent Progress Patient-Stated? Author Problem Solving General On track( 019 9:24 AM TRANSPORTATION DEPARTMENT SUPERVISOR) Yes Sheryl Stringer, ELI Note: My Goal: [...] Out COVID-19 2021 2021 04/25/2021 12:41 PM TRANSPORTATION DEPARTMENT SUPERVISOR Rule Out COVID-19 06/14/2022 06/14/2022 06/14/2022 11:30 AM TRANSPORTATION DEPARTMENT SUPERVISOR Rule Out COVID-19 07/03/2022 07/03/2022 07/04/2022 12:27 AM TRANSPORTATION DEPARTMENT SUPERVISOR Rule Out COVID-19 04/01/2024 04/01/2024 04/01/2024 10:07 PM CDT ESBL 07/05/2024 08/24/2024 Rule Out COVID-19 07/16/2024 07/16/2024 07/16/2024 11:04 PM TRANSPORTATION DEPARTMENT SUPERVISOR Rule Out COVID-19 09/01/2024 09/01/2024 09/01/2024 2:05 AM CDT Rule Out COVID-19 09/21/2024 09/21/2024 09/21/2024 3:25 PM CDT Assessment Noted Time PHQ-9 Depression Total Score: 6 08/25/19 21 7:03 AM CDT documented as of this encounter Care Teams Medical Unit Secretary Relationship Specialty Start Date End Date Trina Carbajal PA-C [address] [facility] [address] [place] [address] PCP - General Family Medicine 05/19/20 04/10/24 [place] [address] [address] [place] [address] PCP - General Family Medicine 04/11/[address] [place] [address] Grinder Set Up Operator External Dietitian, Registered 11/03/17 Federico Linda MD [address] [place] [address] Assigned Heart and Vascular Provider 03/29/20 Connie Blackwell MD [address] [facility] 200 [place], [place] [address] Assigned Endocrinology Provider 07/14/20 12/19/20 Carlos Livingston MD NO INFO AVAILABLE Assigned Endocrinology Provider 12/20/20 12/18/22 Carlos Livingston MD NO INFO AVAILABLE Assigned PCP 12/08/20 12/19/20 Trina Carbajal PA-C [address] [place] [address] Assigned PCP 12/20/20 04/28/24 Mari Funes, JERRY Personal Advocate & Liaison (PAL) Nurse 01/24/21 06/12/21 Jc Zavala MD [facility] [address] [place] [address] Hematology & Oncology 08/07/21 Barbi Manzo, JERRY Personal Advocate & Liaison (PAL) Family Medicine 12/24/21 07/08/23 [place] [address] [place] [place] [address] Assigned Musculoskeletal Provider 04/04/22 08/19/23 Cristofer Michelle MD [address] [place] [address] 639065 Gastroenterology 07/28/22 Vivien Blanchard MD [address] [place] [address] [phone] Urology 07/28/22 Sapna Hernandez MD [address] [place] [address] 654575 Assigned Nephrology Provider 07/11/22 09/25/22 Vivien Blanchard MD [address] [place] [address] 706765 Assigned Surgical Provider 07/25/22 06/30/23 Virgie Lobato PA-C [address] [place] [address] Assigned Nephrology Provider 09/26/22 03/28/24 Teetee Velazquez PA-C [address] [place] [address] Physician Supervisor Chemical 05/11/23 Teetee Velazquez PA-C [address] [place] [address] Assigned Surgical Provider 07/01/23 Cora Shah RN Personal Advocate & Liaison (PAL) Nurse 07/09/23 09/29/23 [place] [address] [address], [facility] 300 [place] [address] Assigned Musculoskeletal Provider 08/20/23 Cristal Cooper, RN Lead Pre Sales Systems Engineer Primary Care - CC 04/27/2404/08 Shannon Rowland PA-C [address] [place] [address] Assigned PCP 04/29/24 05/28/24 Lanie Foster, RD, LD [address] [facility] [address] [place], [place] [address] Registered Dietitian Nutrition 05/15/24 [place] [address] [place] [address] Assigned PCP 05/29/24 Melonie Caro [facility] [address] [place] [address] Pharmacist Pharmacist 06/05/24 Federico Linda MD [address] [facility] [address] [place] [address] Cardiovascular Disease 06/13/24 Melonie Caro [facility] [address] [place] [address] Assigned MTM Pharmacist 06/29/24 Virgie Lobato PA-C [address] [place] [address] Assigned Nephrology Provider 07/30/24 Barry Ybarra MD [address] [place] [address] Hospitalist Infectious Diseases 08/31/24 Barry Ybarra MD [address] [place] [address] Assigned Infectious Disease Provider 10/27/24 documented as of this encounter
--- OUTSIDE RECORDS SUMMARY | 2024-11-12 17:29 | XMS_ITS | Encounter Summary ---
Author Organization [place] Address [address] [place] [address] Care Team Providers Care Photolithographic Stripper Name Role Phone Sheryl Stringer ELI Unavailable [phone] Flynn Ruiz MD Unavailable No Ref-Primary, Physician Primary Care Provider Flynn Ruiz MD Unavailable [phone] Ruth Ann Munoz MD Primary Care Prov ider Ruth Ann Munoz MD Unavailable + Flynn Ruiz MD Primary Care Provider Ruth Ann Munoz MD Unavailable + Flynn Ruiz MD Unavailable [phone] Flynn Ruiz MD Unavailable [phone] Mari Funes RN Unavailable Unavailable Ruth Ann Munoz MD Unavailable + Trina Carbajal-C Unavailable [phone] Federico Linda MD Unavailable [phone] Trina Carbajal PA-C Primary Care Provider [phone] Connie Blackwell MD Unavailable +[phone] PlacervilleRuth Ann Holm MD Unavailable + Carlos [place] MD Unavailable Jelena vailable Trina Carbajal-C Unavailable [phone] Carlos [place] MD Unavailable Jelena vailable Carlos [place] MD Unavailable Jelena vailable Trina Carbajal PA-C Unavailable [phone] Mari Funes RN Unavailable Unavailable Jc Zavala MD Unavailable [phone] Barbi Manzo RN Unavailable Unavailable Erasto Root MD Unavailable Cristofer Michelle MD Unavailable [phone] Vivien Blanchard MD Unavailable + [phone] Sapna Hernandez MD Unavailable Vivien Blanchard MD Unavailable + [phone] Virgie Lobato PA-C Unavailable [phone] Teetee Velazquez PA-C Unavailable + [phone] Teetee Velazquez PA-C Unavailable [phone] Cora Shah RN Unavailable [phone] Brad Mayer DO Unavailable Mary Garcia MD Primary Care Provider Cristal Cooper RN Unavailable Shannon Rowland PA-C Unavailable [phone], LD Unavailabl e Mary Garcia MD Unavailable Melonie Caro [facility] Unavailable [phone] Federico Linda MD Unavailable [phone] Melonie Caro [facility] Unavailable [phone] Virgie Lobato PA-C Unavailable +[phone] Barry Ybarra MD Unavailable +[phone] Barry Ybarra MD Unavailable [phone] Reason for Visit * Reason Onset Date Comments Results 08/08/2018 Encounter Details Date Type Department Care Team (Late st Contact Info) Description 08/08/2018 MyC Medical Advice [address] [address] Ruth Ann Munoz MD [facility] [address] [id number] Results Social History Tobacco Use Types Packs/Day Years Used Date Smoking Tobacco: Never Smokeless Tobacco: Never Alcohol Use Standard Drinks/Week Comments No 0 (1 standard drink = 0.6 oz pur e alcohol) PHQ-2 Answer Date Recorded PHQ-2 Score 2 06/21/2018 Comments No Sex and Gender Information Value Date Recorded Sex Assigned at Female 07/18/2020 1:16 PM DIRECTOR OF PHYSICAL THERAPY Legal Sex Female 3:23 AM DIRECTOR OF PHYSICAL THERAPY Gender Identity Female 07/18/2020 1:16 PM DIRECTOR OF PHYSICAL THERAPY Sexual Orientation Straight 07/18/2020 1: 16 PM DIRECTOR OF PHYSICAL THERAPY 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 Munoz- see Easy Metricst message below. Please advise on results. Lindsey Fedderly, RN CTOR OF PHYSICAL THERAPY documented in this encounter Plan of Treatment Upcoming Encounters Date Type Department Care Team (Late st Contact Info) Description 11/16/2024 1:00 PM CDT Allied Health/Nurse Visit [facility] [address] [facility] 4th [place] [phone] Lucero Britt PA-C 500 [place], [place] [phone] 11/16/2024 2:45 PM CDT Office Visit [facility] [address] [place] [address] 4th [place] [address] Vivien Blanchard MD 420 [facility] 394 [place], [place] [phone] 11/20/2024 3:30 PM CDT Office Visit [facility] [address] [place] [phone] [place] [address] [place] [address] 11/22/2024 9:15 AM CDT Office Visit [facility] [address] [facility] [address] [place] [phone] Federico Linda MD [address] [facility] [address] [place], [place] [address] 11/30/2024 10:30 AM CDT Lab [facility] [address] [place] [phone] 12/06/2024 10:10 AM CDT Office Visit [facility] [address] [facility] [address] [place] [phone] Virgie Lobato PAAnthonyC 909 [place] [address] 12/28/2024 11:00 AM CDT Office Visit [facility] 2945 [facility] 200 [place] [phone] [place] [address] [place] [address] 200 [place] [address] 01/26/2025 11:30 AM CDT Office Visit [facility] [address] [place] [phone] [place] [address] [place] [address] documented as of this encounter Visit Diagnoses Not on filedocumented in this encounter Additional Health Concerns Infection Onset Date Last Indicated Resolved Time Rule Out COVID-19 03/08/2021 03/08/2021 03/09/2021 1:42 AM CDT Rule Out C-difficile 03/10/2021 03/10/2021 5:50 PM CDT Rule Out COVID-19 2021 2021 04/25/2021 12:41 PM DIRECTOR OF PHYSICAL THERAPY Rule Out COVID-19 06/14/2022 06/14/2022 06/14/2022 11:30 AM DIRECTOR OF PHYSICAL THERAPY Rule Out COVID-19 07/03/2022 07/03/2022 07/04/2022 12:27 AM DIRECTOR OF PHYSICAL THERAPY Rule Out COVID-19 04/01/2024 04/01/2024 04/01/2024 10:07 PM CDT ESBL 07/05/2024 08/24/2024 Rule Out COVID-19 07/16/2024 07/16/2024 07/16/2024 11:04 PM DIRECTOR OF PHYSICAL THERAPY Rule Out COVID-19 09/01/2024 09/01/2024 09/01/2024 2:05 AM CDT Rule Out COVID-09/21/2024 09/21/2024 09/21/2024 3:25 PM CDT Assessment Noted Time PHQ-9 Depression Total Score: 6 08/09/19 19 8:45 AM DIRECTOR OF PHYSICAL THERAPY documented as of this encounter Care Teams Photolithographic Stripper Relationship Specialty Start Date End Date Flynn Ruiz MD [address] [place] [address] PCP - Assigned PCP 07/10/18 08/09/18 No Ref-Primary, Physician PCP - General 08/05/18 08/30/18 Ruth Ann Munoz MD PCP - General Family Practice 08/31/18 04/13/19 Flynn Ruiz MD [facility] [address] [place] [address] 207 [place] [address] PCP - General Family Practice 04/14/19 05/18/20 Trina Carbajal, PAAnthonyC [address] [place] [address] PCP - General Family Medicine 05/19/20 04/10/24 [place] [address] [place] [address] PCP - General Family Medicine 04/11/[address] [place] [address] Hand Binder Stripper Dietitian, Registered 11/03/17 Flynn Ruiz MD [address] [place] [address] Assigned PCP 04/24/18 12/24/18 Ruth Ann Munoz MD [address] [place], [place] [address] Assigned PCP 12/25/18 04/22/19 Ruth Ann Munoz MD [address] [address] [place], [place] [address] Assigned PCP 04/30/19 05/27/19 Flynn Ruiz MD [address] [place] [address] Assigned PCP 04/23/19 04/29/19 Flynn Ruiz MD [address] [place] [address] Assigned PCP 05/28/19 07/22/19 Mari Funes, JERRY Personal Advocate & Liaison (PAL) 07/27/19 07/30/19 Ruth Ann Munoz MD [address] [place], [place] [address] Assigned PCP 07/23/19 08/12/19 Trina Carbajal PA-C [address] [place] [address]32[address] Assigned PCP 08/13/19 07/27/20 Federico Linda MD [address] [place] [address] Assigned Heart and Vascular Provider 03/29/20 Connie Blackwell MD [address] [place], [place] 1125[address] Assigned Endocrinology Provider 07/14/20 12/19/20 Ruth Ann Munoz MD [facility] [address] [place] [address] 207 [place] [address] Assigned PCP 07/28/20 08/25/20 Carlos [place] MD NO INFO AVAILABLE Assigned PCP 08/26/20 08/31/20 Trina Carbajal PA-C [address] [place] [address] Assigned PCP 09/01/20 12/07/20 Carlos [place] MD NO INFO AVAILABLE Assigned Endocrinology Provider 12/20/20 12/18/22 Carlos [place] MD NO INFO AVAILABLE Assigned PCP 12/08/20 12/19/20 Trina Carbajal PA-C [address] [place] [address] Assigned PCP 12/20/20 04/28/24 Mari Funes, JERRY Personal Advocate & Liaison (PAL) Nurse 01/24/21 06/12/21 Jc Zavala MD [facility] [address] [place] [address] Hematology & Oncology 08/07/21 Barbi Manzo, JERRY Personal Advocate & Liaison (PAL) Family Medicine 12/24/21 07/08/23 [place] [address] [address] Assigned Musculoskeletal Provider 04/04/22 08/19/23 Cristofer Michelle MD [address] [place] [address] Gastroenterology 07/28/22 Vivien Blanchard MD [address] [place] [address] Urology 07/28/22 Sapna Hernandez MD [address] [place] [address] Assigned Nephrology Provider 07/11/22 09/25/22 Vivien Blanchard MD [address] [place] [address] Assigned Surgical Provider 07/25/22 06/30/23 Virgie Lobato PA-C [address] [place] [address] Assigned Nephrology Provider 09/26/22 03/28/24 Teetee Velazquez PA-C [address] [place] [address] Physician Tour Escort 05/11/23 Teetee Velazquez PA-C [address] [place] [address] Assigned Surgical Provider 07/01/23 Cora Shah, RN Personal Advocate & Liaison (PAL) Nurse 07/09/23 09/29/23 [place] [address] [address] [facility] [address] [place], [place] [phone] Assigned Musculoskeletal Provider 08/20/23 Cristal Cooper, JERRY Lead Us Administrative Law Judge Primary Care - CC 04/27/2404/08 Shannon Rowland PA-C [address] [place] [phone] Assigned PCP 04/29/24 05/28/24 Lanie Foster, RD, LD [address] [place] 07[address] Registered Dietitian Nutrition 05/15/24 [place] [address] [place] [address] Assigned PCP 05/29/24 Melonie Caro [facility] [address] [place], [place] 67[address] Pharmacist Pharmacist 06/05/24 Federico Linda MD [address] [place] [address] Cardiovascular Disease 06/13/24 Melonie Caro [facility] [address] [place] [address] Assigned MTM Pharmacist 06/29/24 Virgie Lobato PA-C [address] [place] [address] Assigned Nephrology Provider 07/30/24 Barry Ybarra MD [address] [place] [address] Hospitalist Infectious Diseases 08/31/24 Barry Ybarra MD [address] [place] [address] Assigned Infectious Disease Provider 10/27/24 documented as of this encounter
--- OUTSIDE RECORDS SUMMARY | 2024-11-12 17:29 | XMS_ITS | Encounter Summary ---
Author Organization [place] Address [address] [place] [address] Care Team Providers Care Sas Sql Developer Name Role Phone Sheryl Stringer Kirk B[place] Unavailable [phone] Federico Linda MD Unavailable [phone] Trina CarbajalC Primary Care Provider Carlos [place] MD Unavailable Jelena vailable Trina Carbajal PA-C Unavailable [phone] Mari Funes RN Unavailable Unavailable Jc Zavala MD Unavailable [phone] Barbi Manzo RN Unavailable Unavailable Erasto Root MD Unavailable Cristoefr Michelle MD Unavailable [phone] Vivien Blanchard MD Unavailable [phone] Sapna Hernandez MD Unavailable Vivien Blanchard MD Unavailable [phone] Virgie LobatoC Unavailable [phone] Teetee VelazquezC Unavailable Teetee VelazquezC Unavailable [phone] Cora Shah RN Unavailable Brad Mayer Unavailable [phone] Mary Garcia MD Primary Care Provider Cristal Cooper RN Unavailable Shannon Rowland PA-C Unavailable [phone], LD Unavailabl e Mary Garcia MD Unavailable Melonie Caro [facility] Unavailable Federico Linda MD Unavailable Melonie Caro [facility] Unavailable Virgie LobatoC Unavailable [phone] Barry Ybarra MD Unavailable [phone] Barry Ybarra MD Unavailable Reason for Visit * Reason Comments Medication Refill Encounter Details Date Type Department Care Team (Late st Contact Info) Description 12/31/2020 [facility] [address] [place] [address] Trina Carbajal PA-C [address] [place] [id number] Medication Refill Social History Tobacco Use Types Packs/Day Years Used Date Smoking Tobacco: Never Smokeless Tobacco: Never Alcohol Use Standard Drinks/Week Comments No 0 (1 standard drink = 0.6 oz pur e alcohol) PHQ-2 Answer Date Recorded PHQ-2 Score 0 08/23/2020 Comments No Sex and Gender Information Value Date Recorded Sex Assigned at Female 07/18/2020 1:16 PM WINDOWS SYSTEMS ADMINISTRATOR Legal Sex Female 3:23 AM WINDOWS SYSTEMS ADMINISTRATOR Gender Identity Female 07/18/2020 1:16 PM WINDOWS SYSTEMS ADMINISTRATOR Sexual Orientation Straight 07/18/2020 1: 16 PM WINDOWS SYSTEMS ADMINISTRATOR 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 Unable to assess 12/30/2020 1:54 PM CDT documented as of this encounter Miscellaneous Notes * Telephone Encounter - Sheryl Mckay RN - 01/01/2021 2:51 PM CDT Routing refill request to provider for review/approval because: Both New for CJ Sheryl Mckay RN, BSN Message handled by CLINIC NURSE. documented in this encounter Plan of Treatment Upcoming Encounters Date Type Department Care Team (Late st Contact Info) Description 11/16/2024 1:00 PM CDT Allied Health/Nurse Visit [facility] [address] [address] Lucero Britt PA-C 500 [place], [place] [phone] 11/16/2024 2:45 PM CDT Office Visit [facility] [address] [phone] Vivien Blanchard MD 420 [facility] 394 [place], [place] [phone] 11/20/2024 3:30 PM CDT Office Visit [address] [phone] Mary Garcia MD [address] [place] [address] 11/22/2024 9:15 AM CDT Office Visit [facility] [address] [facility] [address] [place] [phone] Federico Linda MD 6[address] [facility] [address] [place] [address] 11/30/2024 10:30 AM CDT Lab [facility] [address] [place] [phone] 12/06/2024 10:10 AM CDT Office Visit [facility] 6525 [facility] 200 [place] [phone] Virgie Lobato, PA-C 909 [place] [address] 12/28/2024 11:00 AM CDT Office Visit [facility] 2945 [facility] 200 [place] [phone] [place] [address] [place] [address] 200 [place] [address] 01/26/2025 11:30 AM CDT Office Visit [facility] [address] [place] [address] [place] [address] [place] [address] documented as of this encounter Goals Goal Patient Goal Type Associated Problems Recent Progress Patient-Stated? Author Problem Solving General On track( 019 9:24 AM WINDOWS SYSTEMS ADMINISTRATOR) Yes Sheryl Stringer, ELI Note: My Goal: I will reduce risk of low blood sugars over-night What I need to meet my goal: follow instructions for taking Novolog before meals only I plan to meet my goal by this date: 1 week documented as of this encounter Visit Diagnoses Diagnosis Moderate episode of recurrent major depressive disorder (H) Coronary artery disease involving akutan coronary artery of akutan heart without angina pectoris documented in this encounter Additional Health Concerns Infection Onset Date Last Indicated Resolved Time Rule Out COVID-19 03/08/2021 03/08/2021 03/09/2021 1:42 AM CDT Rule Out C-difficile 03/10/2021 03/10/2021 5:50 PM CDT Rule Out COVID-19 2021 2021 04/25/2021 12:41 PM WINDOWS SYSTEMS ADMINISTRATOR Rule Out COVID-19 06/14/2022 06/14/2022 06/14/2022 11:30 AM WINDOWS SYSTEMS ADMINISTRATOR Rule Out COVID-19 07/03/2022 07/03/2022 07/04/2022 12:27 AM WINDOWS SYSTEMS ADMINISTRATOR Rule Out COVID-19 04/01/2024 04/01/2024 04/01/2024 10:07 PM CDT ESBL 07/05/2024 08/24/2024 Rule Out COVID-19 07/16/2024 07/16/2024 07/16/2024 11:04 PM WINDOWS SYSTEMS ADMINISTRATOR Rule Out COVID-19 09/01/2024 09/01/2024 09/01/2024 2:05 AM CDT Rule Out COVID-19 09/21/2024 09/21/2024 09/21/2024 3:25 PM CDT Assessment Noted Time PHQ-9 Depression Total Score: 6 08/25/19 21 7:03 AM CDT documented as of this encounter Care Teams Sas Sql Developer Relationship Specialty Start Date End Date Trina Carbajal PAAnthonyC [address] [place] [address] PCP - General Family Medicine 05/19/20 04/10/24 [place] [address] [address] [place] [address] PCP - General Family Medicine 04/11/24 Sheryl Stringer, ELI [address] [place] [address] Gate Cutter Dietitian, Registered 11/03/17 Federico Linda MD [address] [place] [address] Assigned Heart and Vascular Provider 03/29/20 Carlos [place] MD NO INFO AVAILABLE Assigned Endocrinology Provider 12/20/20 12/18/22 Trina Carbajal, PA-C [address] [place] [address] Assigned PCP 12/20/20 04/28/24 Mari Funes, JERRY Personal Advocate & Liaison (PAL) Nurse 01/24/21 06/12/21 Jc Zavala MD [place] [facility] [place] [address] [facility] 100 [place] [address] Hematology & Oncology 08/07/21 Barbi Manzo, JERRY Personal Advocate & Liaison (PAL) Family Medicine 12/24/21 07/08/23 [place] [address] [place] [address] Assigned Musculoskeletal Provider 04/04/22 08/19/23 Cristofer Michelle MD [address] [place] [address] Gastroenterology 07/28/22 Vivien Blanchard MD 420 [facility] 394 [place] [address] Urology 07/28/22 Sapna Hernandez MD [address] [place] [address] 394 [place] [address] Assigned Nephrology Provider 07/11/22 09/25/22 Vivien Blanchard MD [address] [place] [address] 059075 Assigned Surgical Provider 07/25/22 06/30/23 Virgie Lobato PA-C [address] [place] [address] 518615 Assigned Nephrology Provider 09/26/22 03/28/24 Teetee Velazquez PA-C [address] [place] [address] 308865 Physician Eligibility And Occupancy Interviewer 05/11/23 Teetee Velazquez PA-C [address] [place] [address] 649475 Assigned Surgical Provider 07/01/23 Cora Shah, JERRY Personal Advocate & Liaison (PAL) Nurse 07/09/23 09/29/23 [place] [address] [address], [address] [address] Assigned Musculoskeletal Provider 08/20/23 Cristal Cooper, JERRY Lead Collar Band Creaser Primary Care - CC 11/21/24 11/2 7/24 Shannon Rowland PA-C [address] [place] [address] Assigned PCP 04/29/24 05/28/24 Lanie Foster, RD, LD [address] [place] 344465 Registered Dietitian Nutrition 05/15/24 [place] [address] [place], [place] 1719[address] Assigned PCP 05/29/24 Melonie Caro RPH [address] [place], [place] [phone] Pharmacist Pharmacist 06/05/24 Federico Linda MD [address] [facility] [address] [place] [address] [phone] Cardiovascular Disease 06/13/24 Melonie Caro RPH [address] [place], [place] 086477 Assigned MTM Pharmacist 06/29/24 Virgie Lobato PA-C 909 [place], [place] 348525 Assigned Nephrology Provider 07/30/24 Barry Ybarra MD [address] [phone] Hospitalist Infectious Diseases 08/31/24 Barry Ybarra MD [facility] [address] Assigned Infectious Disease Provider 10/27/24 documented as of this encounter
--- OUTSIDE RECORDS SUMMARY | 2024-11-12 17:29 | XMS_ITS | Encounter Summary ---
Author Organization [place] Address [address] [place] [address] Care Team Providers Care Education Analyst Name Role Phone Sheryl Stringer Kirk BENITEZ Unavailable [phone] Federico Linda MD Unavailable [phone] Trina Carbajal PA-C Primary Care Provider Connie Blackwell MD Unavailable [phone] Trina Carbajal PA-C Unavailable [phone] Carlos Livingston MD Unavailable Jelena vailable Carlos Livingston MD Unavailable Jelena vailable Trina Carbajal PA-C Unavailable [phone] Mari Funes RN Unavailable Unavailable Jc Zavala MD Unavailable [phone] Barbi Manzo RN Unavailable Unavailable Erasto Root MD Unavailable Cristofer Michelle MD Unavailable [phone] Vivien Blanchard MD Unavailable [phone] Sapna Hernandez MD Unavailable Vivien Blanchard MD Unavailable [phone] Virgie Lobato PA-C Unavailable [phone] Teetee Velazquez PA-C Unavailable [phone] Teetee Velazquez PA-C Unavailable [phone] Cora Shah RN Unavailable [phone] Brad Mayer DO Unavailable [phone] Mary Garcia MD Primary Care Provider [phone] Cristal Cooper RN Unavailable Shannon Rowland PA-C Unavailable [phone], LD Unavailabl e Mary Garcia MD Unavailable Melonie Caro [facility] Unavailable Federico Linda MD Unavailable [phone] Melonie Caro [facility] Unavailable Virgie viramontes PA-C Unavailable [phone] Barry Ybarra MD Unavailable [phone] Barry Ybarra MD Unavailable [phone] Encounter Details Date Type Department Care Team (Late st Contact Info) Description 11/07/2020 [facility] Medical Advice [address] [place] [address] Carlos Livingston MD [...] Sex Assigned at Female 07/18/2020 1:16 PM TURNSTILE COLLECTOR Legal Sex Female 3:23 AM TURNSTILE COLLECTOR Gender Identity Female 07/18/2020 1:16 PM TURNSTILE COLLECTOR Sexual Orientation Straight 07/18/2020 1: 16 PM TURNSTILE COLLECTOR 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 file Not on file documented as of this encounter Plan of Treatment Upcoming Encounters Date Type Department Care Team (Late st Contact Info) Description 11/16/2024 1:00 PM CDT Allied Health/Nurse Visit [facility] Urology [address] [phone] Lucero Britt PA-C 500 [place], [place] [phone] 11/16/2024 2:45 PM CDT Office Visit [facility] Urology [address] [address] Vivien Blanchard MD 420 [facility] [address] [place], [place] [phone] 11/20/2024 3:30 PM CDT Office Visit [facility] [address] [place] [phone] [place] [address] [place] [address] 11/22/2024 9:15 AM CDT Office Visit [facility] Heart [facility] [address] [facility] [address] [place] [phone] Federico Linda MD 5687 [facility] [address] [place] [phone] 11/30/2024 10:30 AM CDT Lab [facility] Laboratory [address] [place] [phone] 12/06/2024 10:10 AM CDT Office Visit [facility] 6525 [facility] 200 [place] [phone] Virgie Lobato PA-C 909 [place] [address] 12/28/2024 11:00 AM CDT Office Visit [facility] 2945 [facility] 200 [place] [address] Barry Ybarra MD [address] [place] [address] 01/26/2025 11:30 AM CDT Office Visit [address] [phone] [place] [address] [place] [address] documented as of this encounter Goals Goal Patient Goal Type Associated Problems Recent Progress Patient-Stated? Author Problem Solving General On track( 9:24 AM TURNSTILE COLLECTOR) Yes Sheryl Stringer RD Note: My Goal: [...] Out COVID-19 2021 2021 04/25/2021 12:41 PM TURNSTILE COLLECTOR Rule Out COVID-19 06/14/2022 06/14/2022 06/14/2022 11:30 AM TURNSTILE COLLECTOR Rule Out COVID-19 07/03/2022 07/03/2022 07/04/2022 12:27 AM TURNSTILE COLLECTOR Rule Out COVID-19 04/01/2024 04/01/2024 04/01/2024 10:07 PM CDT ESBL 07/05/2024 08/24/2024 Rule Out COVID-19 07/16/2024 07/16/2024 07/16/2024 11:04 PM TURNSTILE COLLECTOR Rule Out COVID-19 09/01/2024 09/01/2024 09/01/2024 2:05 AM CDT Rule Out COVID-19 09/21/2024 09/21/2024 09/21/2024 3:25 PM CDT Assessment Noted Time PHQ-9 Depression Total Score: 6 08/25/19 21 7:03 AM CDT documented as of this encounter Care Teams Education Analyst Relationship Specialty Start Date End Date Trina Carbajal PA-C [address] [place] [address] PCP - General Family Medicine 05/19/20 04/10/24 [place] [address] [place] [address] PCP - General Family Medicine 04/11/[address] [facility] [address] [place] [address] [place] [address] [employer] Consultant Dietitian, Registered 11/03/17 Federico Linda MD [address] [place] [address] Assigned Heart and Vascular Provider 03/29/20 Connie Blackwell MD [address] [place] [address] Assigned Endocrinology Provider 07/14/20 12/19/20 Trina Carbajal PA-C [address] [place] [address] Assigned PCP 09/01/20 12/07/20 Carlos Livingston MD NO INFO AVAILABLE Assigned Endocrinology Provider 12/20/20 12/18/22 Carlos Livingston MD NO INFO AVAILABLE Assigned PCP 12/08/20 12/19/20 Trina Carbajal PA-C [address] [place] [address]165 Assigned PCP 12/20/20 04/28/24 Mari Funes RN Personal Advocate & Liaison (PAL) Nurse 01/24/21 06/12/21 Jc Zavala MD [place] [facility]5 [facility] 100 [place] [address] Hematology & Oncology 08/07/21 Barbi Manzo, JERRY Personal Advocate & Liaison (PAL) Family Medicine 12/24/21 07/08/23 [place] [address] [place] [address] Assigned Musculoskeletal Provider 04/04/22 08/19/23 Cristofer Michelle MD [address] [place], [place] [address]B [address] [place] [address] Gastroenterology 07/28/22 Vivien Blanchard MD 420 [facility] [address] [place], [place] [address] Urology 07/28/22 Sapna Hernandez MD 420 [facility] [address] [place], [place] [address] Assigned Nephrology Provider 07/11/22 09/25/22 Vivien Blanchard MD [address] [place] [address] [phone] Assigned Surgical Provider 07/25/22 06/30/23 Virgie Lobato PA-C [address] [place] [address] 114045 Assigned Nephrology Provider 09/26/22 03/28/24 Teetee Velazquez PA-C [address] [place] [address] 712805 Physician Monorail Hooker 05/11/23 Teetee Velazquez PA-C [address] [place] [address] Assigned Surgical Provider 07/01/23 Cora Shah, JERRY Personal Advocate & Liaison (PAL) Nurse 07/09/23 09/29/23 [place] [address] [address] [address] Assigned Musculoskeletal Provider 08/20/23 Cristal Cooper, RN Lead Crusher Tender Primary Care - CC 04/27/2404/08 Shannon Rowland PA-C [address] [place] [address]28[address]83 Assigned PCP 04/29/24 05/28/24 Lanie Foster, RD, LD [address] [place] [address] Registered Dietitian Nutrition 05/15/24 [place] [address] [place] [address] Assigned PCP 05/29/24 Melonie Caro [facility] [address] [place] [address] Pharmacist Pharmacist 06/05/24 Federico Linda MD [address] [facility] [address] [place] [address] Cardiovascular Disease 06/13/24 Melonie Caro RPH 303 [place] [address] Assigned MTM Pharmacist 06/29/24 Virgie Lobato PA-C [address] [place] [address] [phone] Assigned Nephrology Provider 07/30/24 Barry Ybarra MD [address] [phone] Hospitalist Infectious Diseases 08/31/24 Barry Ybarra MD [facility] [address] Assigned Infectious Disease Provider 10/27/24 documented as of this encounter
--- OUTSIDE RECORDS SUMMARY | 2024-11-12 17:29 | XMS_ITS | Encounter Summary ---
Author Organization [place] Address [address] [place] [address] Care Team Providers Care Certified Phlebotomist Name Role Phone Sheryl Stringer Kirk BENITEZ Unavailable [phone] Federico Linda MD Unavailable [phone] Trina Carbajal PA-C Primary Care Provider Connie Blackwell MD Unavailable [phone] Trina Carbajal PA-C Unavailable [phone] Carlos Livingston MD Unavailable Jelena vailable Carlos Livingston MD Unavailable Jelena vailable Trina Carbajal PA-C Unavailable [phone] Mari Funes RN Unavailable Unavailable Jc Zavala MD Unavailable [phone] Barbi Manzo RN Unavailable Unavailable Erasto Root MD Unavailable Cristofer Michelle MD Unavailable [phone] Vivien Blanchard MD Unavailable [phone] Sapna Hernandez MD Unavailable Vivien Blanchard MD Unavailable [phone] Virgie Lobato PA-C Unavailable [phone] Teetee Velazquez PA-C Unavailable [phone] Teetee Velazquez PA-C Unavailable [phone] Cora Shah RN Unavailable [phone] Brad Mayer DO Unavailable [phone] Mary Garcia MD Primary Care Provider [phone] Cristal Cooper RN Unavailable Shannon Rowland PA-C Unavailable [phone], LD Unavailabl e Mary Garcia MD Unavailable Melonie Caro [facility] Unavailable Federico Linda MD Unavailable [phone] Melonie Caro [facility] Unavailable Virgie viramontes PA-C Unavailable [phone] Barry Ybarra MD Unavailable [phone] Barry Ybarra MD Unavailable [phone] Encounter Details Date Type Department Care Team (Late st Contact Info) Description 11/07/2020 [facility] Medical Advice [address] [place] [address] Carlos Livingston MD NO INFO AVAILABLE Type 2 diabetes mellitus with complication, with long-term current use of insulin (H) (Primary Dx) Social History Tobacco Use Types Packs/Day Years Used Date Smoking Tobacco: Never Smokeless Tobacco: Never Alcohol Use Standard Drinks/Week Comments No 0 (1 standard drink = 0.6 oz pur e alcohol) PHQ-2 Answer Date Recorded PHQ-2 Score 0 08/23/2020 Comments No Sex and Gender Information Value Date Recorded Sex Assigned at Female 07/18/2020 1:16 PM SALICYLIC ACID BLENDER Legal Sex Female 3:23 AM SALICYLIC ACID BLENDER Gender Identity Female 07/18/2020 1:16 PM SALICYLIC ACID BLENDER Sexual Orientation Straight 07/18/2020 1: 16 PM SALICYLIC ACID BLENDER 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 Correct pharmacy is pended for provider if appropriate. Patient: I just went to bead picker my insulin. It was going to be over $400 Called the insurance. They said there is a generic insulin called Lispro that is much cheaper. Is this insulin acceptable. If so could dr Michelle change my prescription with Howard Jeffrey MA documented in this encounter Plan of Treatment Upcoming Encounters Date Type Department Care Team (Late st Contact Info) Description 11/16/2024 1:00 PM CDT Allied Health/Nurse Visit [facility] Urology [address] [phone] Lucero Britt PA-C 500 [place], [place] [address] 11/16/2024 2:45 PM CDT Office Visit [facility] Urology [address] [phone] Vivien Blanchard MD 420 [facility] 394 [place], [place] [address] 11/20/2024 3:30 PM CDT Office Visit [address] [phone] [place] [address] [place] [address] 11/22/2024 9:15 AM CDT Office Visit [facility] [address] [facility] [address] [place] [phone] Federico Linda MD 6405 [facility] [address] [place] [address] 11/30/2024 10:30 AM CDT Lab [facility] Laboratory [address] [place] [phone] 12/06/2024 10:10 AM CDT Office Visit [facility] 6525 [facility] 200 [place] [phone] Virgie Lobato, PA-C [address] [place] [address] 12/28/2024 11:00 AM CDT Office Visit [facility] [address] [place] [phone] Barry Ybarra MD [address] [place] [address] 01/26/2025 11:30 AM CDT Office Visit [facility] [address] [place] [phone] [place] [address] [place] [address] documented as of this encounter Goals Goal Patient Goal Type Associated Problems Recent Progress Patient-Stated? Author Problem Solving General On track( 019 9:24 AM SALICYLIC ACID BLENDER) Yes Sheryl Stringer RD Note: My Goal: I will reduce risk of low blood sugars over-night What I need to meet my goal: follow instructions for taking Novolog before meals only I plan to meet my goal by this date: 1 week documented as of this encounter Visit Diagnoses Diagnosis Type 2 diabetes mellitus with complication, with long-term current use of insulin (H)- Primary documented in this encounter Additional Health Concerns Infection Onset Date Last Indicated Resolved Time Rule Out COVID-19 03/08/2021 03/08/2021 03/09/2021 1:42 AM CDT Rule Out C-difficile 03/10/2021 03/10/2021 5:50 PM CDT Rule Out COVID-19 2021 2021 04/25/2021 12:41 PM SALICYLIC ACID BLENDER Rule Out COVID-19 06/14/2022 06/14/2022 06/14/2022 11:30 AM SALICYLIC ACID BLENDER Rule Out COVID-19 07/03/2022 07/03/2022 07/04/2022 12:27 AM SALICYLIC ACID BLENDER Rule Out COVID-19 04/01/2024 04/01/2024 04/01/2024 10:07 PM CDT ESBL 07/05/2024 08/24/2024 Rule Out COVID-19 07/16/2024 07/16/2024 07/16/2024 11:04 PM SALICYLIC ACID BLENDER Rule Out COVID-19 09/01/2024 09/01/2024 09/01/2024 2:05 AM CDT Rule Out COVID-19 09/21/2024 09/21/2024 09/21/2024 3:25 PM CDT Assessment Noted Time PHQ-9 Depression Total Score: 6 08/25/19 21 7:03 AM CDT documented as of this encounter Care Teams Certified Phlebotomist Relationship Specialty Start Date End Date Trina Carbajal PA-C [address] [facility] [address] [place] [address] PCP - General Family Medicine 05/19/20 04/10/24 [place] [address] [address] PCP - General Family Medicine 04/11/[address] [place] [address] Health Benefits Specialist Dietitian, Registered 11/03/17 Federico Linda MD [address] [place] [address] Assigned Heart and Vascular Provider 03/29/20 Connie Blackwell MD [address] [place] [address] Assigned Endocrinology Provider 07/14/20 12/19/20 Trina Carbajal PA-C [address] [place] [address] Assigned PCP 09/01/20 12/07/20 Carlos Livingston MD NO INFO AVAILABLE Assigned Endocrinology Provider 12/20/20 12/18/22 Carlos Livingston MD NO INFO AVAILABLE Assigned PCP 12/08/20 12/19/20 Trina Carbajal PA-C [address] [place] [address] Assigned PCP 12/20/20 04/28/24 Mari Funes, JERRY Personal Advocate & Liaison (PAL) Nurse 01/24/21 06/12/21 Jc Zavala MD [facility] [address] [place] [address] Hematology & Oncology 08/07/21 Barbi Manzo, RN Personal Advocate & Liaison (PAL) Family Medicine 12/24/21 07/08/23 [place] [address] [place] [address] Assigned Musculoskeletal Provider 04/04/22 08/19/23 Cristofer Michelle MD [address] [place] [address] 700275 Gastroenterology 07/28/22 Vivien Blanchard MD [address] [place] [address] 129345 Urology 07/28/22 Sapna Hernandez MD [address] [phone] Assigned Nephrology Provider 07/11/22 09/25/22 Vivien Blanchard MD [address] [place] [address] [phone] Assigned Surgical Provider 07/25/22 06/30/23 Virgie Lboato PA-C [address] [place] [address] 111155 Assigned Nephrology Provider 09/26/22 03/28/24 Teetee Velazquez PA-C 9 [place], [place] 6[address] Physician Fire Protection Inspector 05/11/23 Teetee Velazquez PAAnthonyC 909 [place], [place] 106345 Assigned Surgical Provider 07/01/23 Cora Shah, JERRY Personal Advocate & Liaison (PAL) Nurse 07/09/23 09/29/23 [place] [address] [facility] [address] [place], [place] [phone] Assigned Musculoskeletal Provider 08/20/23 Cristal Cooper RN Lead Machinist Automotive Primary Care - CC 04/27/2404/08 Shannon Rowland PA-C [address] [place] [address] Assigned PCP 04/29/24 05/28/24 Lanie Foster, RD, LD [address] [place] [phone] Registered Dietitian Nutrition 05/15/24 [place] [address] [place] [address] Assigned PCP 05/29/24 Melonie Caro G[facility] [address] [place] [address] Pharmacist Pharmacist 06/05/24 Federico Linda MD [address] [facility] [address] [place] [address] Cardiovascular Disease 06/13/24 Melonie Caro [facility] [address] [place] [address] Assigned [place] Pharmacist 06/29/24 Virgie Lobato, PAAnthonyC [address] [place] [address] Assigned Nephrology Provider 07/30/24 Barry Ybarra MD [address] [place] [address] Hospitalist Infectious Diseases 08/31/24 Barry Ybarra MD [address] [place] [address] Assigned Infectious Disease Provider 10/27/24 documented as of this encounter
--- OUTSIDE RECORDS SUMMARY | 2024-11-12 17:29 | XMS_ITS | Encounter Summary ---
Author Organization [facility] Address [address] [place] [address] Care Team Providers Care Russian Teacher Name Role Phone Sheryl Stringer ELI Unavailable Flynn Ruiz MD Unavailable [phone] Ruth Ann Munoz MD Primary Care Prov ider Ruth Ann Munoz MD Unavailable + Flynn Ruiz MD Primary Care Provider [phone] Ruth Ann Munoz MD Unavailable + Flynn Ruiz MD Unavailable [phone] Flynn Ruiz MD Unavailable +[phone] Mari Funes RN Unavailable Unavailable Ruth Ann Munoz MD Unavailable + Trina Carbajal PA-C Unavailable [phone] Federico Linda MD Unavailable [phone] Trina Carbajal PA-C Primary Care Provider [phone] Connie Blackwell MD Unavailable [phone] Ruth [...] [phone] Vivien Blanchard MD Unavailable + [phone] Sapna Hernandez MD Unavailable Vivien Blanchard MD Unavailable +[phone] Virgie Lobato PA-C Unavailable +[phone] Teetee Velazquez PA-C Unavailable +[phone] Teetee Velazquez PA-C Unavailable +[phone] Cora Shah RN Unavailable +[phone] Brad Mayer DO Unavailable [phone] Mary Garcia MD Primary Care Provider [phone] Cristal Cooper RN Unavailable Shannon Rowland PA-C Unavailable +[phone], LD Unavailabl e Mary Garcia MD Unavailable Melonie Caro [facility] Unavailable [phone] Federico Linda MD Unavailable +[phone] Melonie Caro [facility] Unavailable +[phone] ShivamVirgie vasquez Jevon GRAHAM Unavailable +[phone] Barry Ybarra MD Unavailable +[phone] Barry Ybarra MD Unavailable +[phone] Encounter Details Date Type Department Care Team (Late st Contact Info) Description 11/23/2018 MyC Medical Advice [address] [place] [address] Sheryl Stringer, [address] [place], [place] [id number] Social History Tobacco Use Types Packs/Day Years Used Date Smoking Tobacco: Never Smokeless Tobacco: Never Alcohol Use Standard Drinks/Week Comments No 0 (1 standard drink = 0.6 oz pur e alcohol) PHQ-2 Answer Date Recorded PHQ-2 Score 2 06/21/2018 Comments No Sex and Gender Information Value Date Recorded Sex Assigned at Female 07/18/2020 1:16 PM STRATEGIC PLANNING ANALYST Legal Sex Female 3:23 AM STRATEGIC PLANNING ANALYST Gender Identity Female 07/18/2020 1:16 PM STRATEGIC PLANNING ANALYST Sexual Orientation Straight 07/18/2020 1: 16 PM STRATEGIC PLANNING ANALYST 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 Og Dukes Diesel Pile Hammer Operator 11/23/18 2:32 PM documented in this encounter Plan of Treatment Upcoming Encounters Date Type Department Care Team (Late st Contact Info) Description 11/16/2024 1:00 PM CDT Allied Health/Nurse Visit [facility] [address] [place] [phone] Lucero Britt PA-C 500 [place], [place] [address] 11/16/2024 2:45 PM CDT Office Visit [facility] Urology [facility] 9[address] [facility] [place] [phone] Vivien Blanchard MD 420 [facility] 394 [place], [place] [address] 11/20/2024 3:30 PM CDT Office Visit [facility] [address] [place] [phone] [place] [address] [place] [address] 11/22/2024 9:15 AM CDT Office Visit [facility] Heart [facility] [address] [facility] [address] [place] [phone] Federico Linda MD 6405 [facility] [address] [place], [place] [address] 11/30/2024 10:30 AM CDT Lab [facility] [address] [place] [phone] 12/06/2024 10:10 AM CDT Office Visit [facility] 6525 [facility] 200 [place] [phone] Virgie Lobato PA-C 909 [place] [address] 12/28/2024 11:00 AM CDT Office Visit [facility] 2945 [facility] 200 [place] [address] Barry Ybarra MD 4466 [facility] 200 [place] [address] 01/26/2025 11:30 AM CDT Office Visit [facility] [address] [place] [phone] [place] [address] [place], [place] [phone] documented as of this encounter Goals Goal Patient Goal Type Associated Problems Recent Progress Patient-Stated? Author Problem Solving General On track( 019 9:24 AM STRATEGIC PLANNING ANALYST) Yes Sheryl Stringer RD Note: My [...] Out COVID-19 2021 2021 04/25/2021 12:41 PM STRATEGIC PLANNING ANALYST Rule Out COVID-19 06/14/2022 06/14/2022 06/14/2022 11:30 AM STRATEGIC PLANNING ANALYST Rule Out COVID-19 07/03/2022 07/03/2022 07/04/2022 12:27 AM STRATEGIC PLANNING ANALYST Rule Out COVID-19 04/01/2024 04/01/2024 04/01/2024 10:07 PM CDT ESBL 07/05/2024 08/24/2024 Rule Out COVID-19 07/16/2024 07/16/2024 07/16/2024 11:04 PM STRATEGIC PLANNING ANALYST Rule Out COVID-19 09/01/2024 09/01/2024 09/01/2024 2:05 AM CDT Rule Out COVID-19 09/21/2024 09/21/2024 09/21/2024 3:25 PM CDT Assessment Noted Time PHQ-9 Depression Total Score: 6 08/09/19 8:45 AM STRATEGIC PLANNING ANALYST documented as of this encounter Care Teams Russian Teacher Relationship Specialty Start Date End Date Ruth Ann Munoz MD [address] [place] [address] PCP - General Family Practice 08/31/18 04/13/19 Flynn Ruiz MD [place] [address] [facility] 207 [place] [address] PCP - General Family Practice 04/14/19 05/18/20 Trina Carbajal PAAnthonyC 6405 [facility] [address] [place] [address] PCP - General Family Medicine 05/19/20 04/10/24 [place] [address] [place] [address] PCP - General Family Medicine 04/11/[address] [place] [address] Conveyor Tender Concrete Mixing Plant Dietitian, Registered 11/03/17 Flynn Ruiz MD [address] [place] [address] Assigned PCP 04/24/18 12/24/18 Ruth Ann Munoz MD [place] [address] [place], [place] [address] Assigned PCP 12/25/18 04/22/19 Ruth Ann Munoz MD [place] [address] [place] [address] Assigned PCP 04/30/19 05/27/19 Flynn Ruiz MD [address] [place] [address] Assigned PCP 04/23/19 04/29/19 Flynn Ruiz MD [address] [place] [address] Assigned PCP 05/28/19 07/22/19 Mari Funes, JERRY Personal Advocate & Liaison (PAL) 07/27/19 07/30/19 Ruth Ann Munoz MD [place] [address] [place] [address] Assigned PCP 07/23/19 08/12/19 Trina Carbajal PA-C [address] [place] [address] Assigned PCP 08/13/19 07/27/20 Federico Linda MD [address] [place] [address] Assigned Heart and Vascular Provider 03/29/20 Connie Blackwell MD [address] [place] [address] Assigned Endocrinology Provider 07/14/20 12/19/20 Ruth Ann Munoz MD [place] [address] [facility] [address] [place] [address] Assigned PCP 07/28/20 08/25/20 Carlos Livingston MD NO INFO AVAILABLE Assigned PCP 08/26/20 08/31/20 Trina Carbajal PA-C [address] [facility] [address] [facility] 200 [place] [address] Assigned PCP 09/01/20 12/07/20 Carlos Livingston MD NO INFO AVAILABLE Assigned Endocrinology Provider 12/20/20 12/18/22 Carlos Livingston MD NO INFO AVAILABLE Assigned PCP 12/08/20 12/19/20 Trina Carbajal PA-C [address] [facility] [address] [facility] [address] [place] [address] Assigned PCP 12/20/20 04/28/24 Mari Funes, JERRY Personal Advocate & Liaison (PAL) Nurse 01/24/21 06/12/21 Jc Zavala MD [facility] [address] [place] [address] Hematology & Oncology 08/07/21 Barbi Manzo, JERRY Personal Advocate & Liaison (PAL) Family Medicine 12/24/21 07/08/23 [place] [address] [facility] [address] [place] [address] Assigned Musculoskeletal Provider 04/04/22 08/19/23 Cristofer Michelle MD [address] [place], [place] [address]B [address] [place] [address] Gastroenterology 07/28/22 Vivien Blanchard MD [address] [place] [address] Urology 07/28/22 Sapna Hernandez MD [address] [place] [address] Assigned Nephrology Provider 07/11/22 09/25/22 Vivien Blanchard MD [address] [place] [address] Assigned Surgical Provider 07/25/22 06/30/23 Virgie Lobato PA-C [address] [place] [address] Assigned Nephrology Provider 09/26/22 03/28/24 Teetee Velazquez PA-C [address] [place] [address] Physician Outside Dealer Sales Representative 05/11/23 Teetee Velazquez PA-C [address] [place] [address] Assigned Surgical Provider 07/01/23 Cora Shah, JERRY Personal Advocate & Liaison (PAL) Nurse 07/09/23 09/29/23 [place] [address] [address] [facility] 300 [place] [address] Assigned Musculoskeletal Provider 08/20/23 Cristal Cooper, JERRY Lead Supervisor Paint Department Primary Care - CC 04/27/2404/08 Shannon Rowland PAAnthonyC [address] [place] [phone] Assigned PCP 04/29/24 05/28/24 Lanie Foster, RD, LD [address] [place] [address] Registered Dietitian Nutrition 05/15/24 [place] [address] [place] [address] Assigned PCP 05/29/24 Melonie Caro [facility] [address] [place], [place] [address] Pharmacist Pharmacist 06/05/24 Federico Linda MD [address] [facility] [address] [place] [address] Cardiovascular Disease 06/13/24 Melonie Caro Gin [address] [place], [place] [address] Assigned MTM Pharmacist 06/29/24 Virgie Lobato PA-C [address] [place] [address] Assigned Nephrology Provider 07/30/24 Barry Ybarra MD [address] [place] [address] Hospitalist Infectious Diseases 08/31/24 Barry Ybarra MD [address] [place] [address] Assigned Infectious Disease Provider 10/27/24 documented as of this encounter
--- OUTSIDE RECORDS SUMMARY | 2024-11-12 17:29 | XMS_ITS | Encounter Summary ---
Author Organization [facility] Address [address] [place] [address] Care Team Providers Care Revenue Field Auditor Name Role Phone Sheryl Stringer Kirk [place] Unavailable [phone] Federico Linda MD Unavailable [phone] Trina Carbajal PA-C Primary Care Provider + [phone] Connie Blackwell MD Unavailable [phone] Carlso Livingston MD Unavailable Jelena vailable Carlos Livingston MD Unavailable Jelena vailable Trina Carbajal PA-C Unavailable [phone] Mari Funes RN Unavailable Unavailable Jc Zavala MD Unavailable +[phone] Barbi Manzo RN Unavailable Unavailable Erasto Root MD Unavailable Cristofer Michelle MD Unavailable [phone] Vivien Blanchard MD Unavailable +[phone] Sapna Hernandez MD Unavailable Vivien Blanchard MD Unavailable +[phone] Virgie Lobato PA-C Unavailable +[phone] Teetee Velazquez PA-C Unavailable +[phone] Teetee Velazquez PA-C Unavailable [phone] Cora Shah RN Unavailable [phone] Brad Mayer DO Unavailable [phone] Mary Garcia MD Primary Care Provider Cristal Cooper RN Unavailable Shannon Rowland PA-C Unavailable [phone], LD Unavailabl e Mary Garcia MD Unavailable Melonie Caro [facility] Unavailable Federico Linda MD Unavailable [phone] Melonie Caro [facility] Unavailable Virgie viramontes PA-C Unavailable [phone] Barry Ybarra MD Unavailable [phone] Barry Ybarra MD Unavailable [phone] Encounter Details Date Type Department Care Team (Late st Contact Info) Description 12/17/2020 [facility] Endocrinology 5200 [place] [address] Carlos Livingston MD NO INFO AVAILABLE Type [...] Sex Assigned at Female 07/18/2020 1:16 PM GLAZE CARRIER Legal Sex Female 3:23 AM GLAZE CARRIER Gender Identity Female 07/18/2020 1:16 PM GLAZE CARRIER Sexual Orientation Straight 07/18/2020 1: 16 PM GLAZE CARRIER 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 No / Unsure 12/17/2020 11:22 AM CDT documented as of this encounter Plan of Treatment Upcoming Encounters Date Type Department Care Team (Late st Contact Info) Description 11/16/2024 1:00 PM CDT Allied Health/Nurse Visit [facility] Urology [address] [phone] Lucero Britt PA-C 500 [place], [place] [phone] 11/16/2024 2:45 PM CDT Office Visit [facility] [address] [address] Vivien Blanchard MD 420 [facility] 394 [place], [place] [address] 11/20/2024 3:30 PM CDT Office Visit [address] [phone] [place] [address] [place] [address] 11/22/2024 9:15 AM CDT Office Visit [facility] Heart [facility] [address] [facility] [address] [place] [phone] Federico Linda MD 4413 [facility] [address] [place], [place] [address] 11/30/2024 10:30 AM CDT Lab [facility] [address] [place] [phone] 12/06/2024 10:10 AM CDT Office Visit [facility] 6525 [facility] 200 [place] [phone] Virgie Lobato PA-C [address] [place] [address] 12/28/2024 11:00 AM CDT Office Visit [facility] [address] [phone] Barry Ybarra MD [address] [place] [address] 01/26/2025 11:30 AM CDT Office Visit [facility] [address] [place] [phone] [place] [address] [place] [address] documented as of this encounter Goals Goal Patient Goal Type Associated Problems Recent Progress Patient-Stated? Author Problem Solving General On track( 019 9:24 AM GLAZE CARRIER) Yes Sheryl Stringer RD Note: My Goal: [...] Out COVID-19 2021 2021 04/25/2021 12:41 PM GLAZE CARRIER Rule Out COVID-19 06/14/2022 06/14/2022 06/14/2022 11:30 AM GLAZE CARRIER Rule Out COVID-19 07/03/2022 07/03/2022 07/04/2022 12:27 AM GLAZE CARRIER Rule Out COVID-19 04/01/2024 04/01/2024 04/01/2024 10:07 PM CDT ESBL 07/05/2024 08/24/2024 Rule Out COVID-19 07/16/2024 07/16/2024 07/16/2024 11:04 PM GLAZE CARRIER Rule Out COVID-19 09/01/2024 09/01/2024 09/01/2024 2:05 AM CDT Rule Out COVID-19 09/21/2024 09/21/2024 09/21/2024 3:25 PM CDT Assessment Noted Time PHQ-9 Depression Total Score: 6 08/25/19 21 7:03 AM CDT documented as of this encounter Care Teams Revenue Field Auditor Relationship Specialty Start Date End Date Trina Carbajal PA-C [address] [place] [address] PCP - General Family Medicine 05/19/20 04/10/24 [place] [address] [place] [address] PCP - General Family Medicine 04/11/[address] [place] [address] Director Of Operations Support Dietitian, Registered 11/03/17 Federico Linda MD [address] [place] [address] Assigned Heart and Vascular Provider 03/29/20 Connie Blackwell MD [address] [facility] 200 [place] [address] Assigned Endocrinology Provider 07/14/20 12/19/20 Carlos Livingston MD NO INFO AVAILABLE Assigned Endocrinology Provider 12/20/20 12/18/22 Carlos Livingston MD NO INFO AVAILABLE Assigned PCP 12/08/20 12/19/20 Trina Carbajal PA-C 6405 [facility] [address] [place] [address] Assigned PCP 12/20/20 04/28/24 Mari Funes, JERRY Personal Advocate & Liaison (PAL) Nurse 01/24/21 06/12/21 Jc Zavala MD [facility] [address] [place] [address] Hematology & Oncology 08/07/21 Barbi Manzo, JERRY Personal Advocate & Liaison (PAL) Family Medicine 12/24/21 07/08/23 [place] [address] [address] [facility] 300 [place] [address] Assigned Musculoskeletal Provider 04/04/22 08/19/23 Cristofer Michelle MD [address] [place], [place] [address] 1E [place] [address] Gastroenterology 07/28/22 Vivien Blanchard MD 420 [facility] 394 [place], [place] [address] Urology 07/28/22 Sapna Hernandez MD 420 [facility] 394 [place] [address] Assigned Nephrology Provider 07/11/22 09/25/22 Vivien Blanchard MD [address] 2[address] Assigned Surgical Provider 07/25/22 06/30/23 Virgie Lobato PA-C [address] [place] [address] Assigned Nephrology Provider 09/26/22 03/28/24 Teetee Velazquez PA-C [address] [place] [address] Physician Custom Applicator 05/11/23 Teetee Velazquez PA-C [address] [place] [address] Assigned Surgical Provider 07/01/23 Cora Shah RN Personal Advocate & Liaison (PAL) Nurse 07/09/23 09/29/23 [place] [address] [address] [address] Assigned Musculoskeletal Provider 08/20/23 Cristal Cooper, JERRY Lead Process Description Writer Primary Care - CC 04/27/2404/08 Shannon Rowland PA-C [address] [place] [address] Assigned PCP 04/29/24 05/28/24 Lanie Foster, RD, LD [address] [place] [address] Registered Dietitian Nutrition 05/15/24 [place] [address] [place] [address] Assigned PCP 05/29/24 Melonie Caro Gin [address] [place] [address] Pharmacist Pharmacist 06/05/24 Federico Linda MD [address] [facility] [address] [place] [address] Cardiovascular Disease 06/13/24 Melonie Caro RPH 303 [place], [place] [address] Assigned MTM Pharmacist 06/29/24 Virgie Lobato PA-C [address] [place] [address] 244545 Assigned Nephrology Provider 07/30/24 Barry Ybarra MD [facility] [address] [id number] Hospitalist Infectious Diseases 08/31/24 Brary Ybarra MD [facility] [address] [address] Assigned Infectious Disease Provider 10/27/24 documented as of this encounter
--- OUTSIDE RECORDS SUMMARY | 2024-11-12 17:29 | XMS_ITS | Encounter Summary ---
Author Organization [place] Address [address] [place] [address] Care Team Providers Care Research Support Specialist Name Role Phone Sheryl Stringer Kirk BENITEZ Unavailable [phone] Federico Linda MD Unavailable [phone] Trina Carbajal PA-C Primary Care Provider Connie Blackwell MD Unavailable [phone] Trina Carbajal PA-C Unavailable [phone] Carlos Livingston MD Unavailable Jelena vailable Carlos Livingston MD Unavailable Jelena vailable Trina Carbajal PA-C Unavailable [phone] Mari Funes RN Unavailable Unavailable Jc Zavala MD Unavailable [phone] Barbi Manzo RN Unavailable Unavailable Erasto Root MD Unavailable Cristofer Michelle MD Unavailable [phone] Vivien Blanchard MD Unavailable +[phone] Sapna Hernandez MD Unavailable Vivien Blanchard MD Unavailable [phone] Virgie Lobato PA-C Unavailable [phone] Teetee Velazquez PA-C Unavailable +[phone] Teetee Velazquez PA-C Unavailable [phone] Cora Shah RN Unavailable [phone] Brad Mayer DO Unavailable [phone] Mary Garcia MD Primary Care Provider Cristal Cooper RN Unavailable Shannon Rowland PA-C Unavailable [phone], LD Unavailabl e Mary Garcia MD Unavailable Melonie Caro [facility] Unavailable Federico Linda MD Unavailable Melonie Caro [facility] Unavailable Virgie viramontes PA-C Unavailable [phone] Barry Ybarra MD Unavailable [phone] Barry Ybarra MD Unavailable [phone] Encounter Details Date Type Department Care Team (Late st Contact Info) Description 12/05/2020 [facility] Endocrinology [address] [place] [address] Kika Swann Social History Tobacco Use Types Packs/Day Years Used Date Smoking Tobacco: Never Smokeless Tobacco: Never Alcohol Use Standard Drinks/Week Comments No 0 (1 standard drink = 0.6 oz pur e alcohol) PHQ-2 Answer Date Recorded PHQ-2 Score 0 08/23/2020 Comments No Sex and Gender Information Value Date Recorded Sex Assigned at Female 07/18/2020 1:16 PM CORE WINDER Legal Sex Female 3:23 AM CORE WINDER Gender Identity Female 07/18/2020 1:16 PM CORE WINDER Sexual Orientation Straight 07/18/2020 1: 16 PM CORE WINDER 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 [...] Allied Health/Nurse Visit [facility] Urology [address] [phone] Lucero Britt PA-C 500 [place], [place] [phone] 11/16/2024 2:45 PM CDT Office Visit [facility] Urology [address] [phone] Vivien Blanchard MD 420 [facility] 394 [place], [place] [address] 11/20/2024 3:30 PM CDT Office Visit [address] [phone] [place] [address] [place] [address] 11/22/2024 9:15 AM CDT Office Visit [facility] [address] [place] [address] [address] [place] [phone] Federico Linda MD 3882 [facility] [address] [place] [address] 11/30/2024 10:30 AM CDT Lab [facility] [address] [place] [address] 12/06/2024 10:10 AM CDT Office Visit [facility] 6525 [facility] 200 [place] [phone] Virgie Lobato PA-C [address] [place] [address] 12/28/2024 11:00 AM CDT Office Visit [facility] [address] [phone] Barry Ybarra MD [address] [address] 01/26/2025 11:30 AM CDT Office Visit [facility] [address] [place] [phone] [place] [address] [place] [address] documented as of this encounter Goals Goal Patient Goal Type Associated Problems Recent Progress Patient-Stated? Author Problem Solving General On track( 9:24 AM CORE WINDER) Yes Sheryl Stringer RD Note: My [...] Out COVID-19 2021 2021 04/25/2021 12:41 PM CORE WINDER Rule Out COVID-19 06/14/2022 06/14/2022 06/14/2022 11:30 AM CORE WINDER Rule Out COVID-19 07/03/2022 07/03/2022 07/04/2022 12:27 AM CORE WINDER Rule Out COVID-19 04/01/2024 04/01/2024 04/01/2024 10:07 PM CDT ESBL 07/05/2024 08/24/2024 Rule Out COVID-19 07/16/2024 07/16/2024 07/16/2024 11:04 PM CORE WINDER Rule Out COVID-19 09/01/2024 09/01/2024 09/01/2024 2:05 AM CDT Rule Out COVID-19 09/21/2024 09/21/2024 09/21/2024 3:25 PM CDT Assessment Noted Time PHQ-9 Depression Total Score: 6 08/25/19 21 7:03 AM CDT documented as of this encounter Care Teams Research Support Specialist Relationship Specialty Start Date End Date Trina Carbajal PA-C [address] [place] [id number] PCP - General Family Medicine 05/19/20 04/10/24 [place] [address] [place] [address] PCP - General Family Medicine 04/11/[address] [facility] [address] [place] [address] [place] [address] University Controller Dietitian, Registered 11/03/17 Federico Linda MD [address] [place] 586405 Assigned Heart and Vascular Provider 03/29/20 Connie Blackwell MD [address] [place], [place] [address] Assigned Endocrinology Provider 07/14/20 12/19/20 Trina Carbajal PA-C [address] [place], [place] 8[address]155 Assigned PCP 09/01/20 12/07/20 Carlos Livingston MD NO INFO AVAILABLE Assigned Endocrinology Provider 12/20/20 12/18/22 Carlos Livingston MD NO INFO AVAILABLE Assigned PCP 12/08/20 12/19/20 Trina Carbajal PA-C [address] [place] [address] Assigned PCP 12/20/20 04/28/24 Mari Funes, JERRY Personal Advocate & Liaison (PAL) Nurse 01/24/21 06/12/21 Jc Zavala MD [facility] [address] [facility] 100 [place] [address] Hematology & Oncology 08/07/21 Barbi Manzo, JERRY Personal Advocate & Liaison (PAL) Family Medicine 12/24/21 07/08/23 [place] [address] [facility] 300 [place] [address] Assigned Musculoskeletal Provider 04/04/22 08/19/23 Cristofer Michelle MD [address] [place] [address] Gastroenterology 07/28/22 Vivien Blanchard MD [address] [place] [address] 394 [place] [address] Urology 07/28/22 Sapna Hernandez MD [address] [place] [address] Assigned Nephrology Provider 07/11/22 09/25/22 Vivien Blanchard MD [address] [place] [address] Assigned Surgical Provider 07/25/22 06/30/23 Virgie Lobato PA-C [address] [place] [address] Assigned Nephrology Provider 09/26/22 03/28/24 Teetee Velazquez PA-C [address] [place] [address] Physician Vamp Maker 05/11/23 Teetee Velazquez PA-C [address] [place] [address] Assigned Surgical Provider 07/01/23 Cora Shah, JERRY Personal Advocate & Liaison (PAL) Nurse 07/09/23 09/29/23 [place] [address] [address] [address] Assigned Musculoskeletal Provider 08/20/23 Cristal Cooper, RN Lead Reclamation Worker Primary Care - CC 04/27/2404/08 Shannon Rowland PA-C [address] [place] [address]283 Assigned PCP 04/29/24 05/28/24 Lanie Foster, RD, LD [address] [place] [id number] Registered Dietitian Nutrition 05/15/24 [place] [address] [place] [place], [place] 50507[address] Assigned PCP 05/29/[address] [facility] [address] [place], [place] [address] Pharmacist Pharmacist 06/05/24 Federico Linda MD [address] [place] [address] Cardiovascular Disease 06/13/[address] [facility] [address] [place] [address] Assigned MTM Pharmacist 06/29/24 Virgie Lobato PA-C [address] [place] [address] Assigned Nephrology Provider 07/30/24 Barry Ybarra MD [address] [place] [address] Hospitalist Infectious Diseases 08/31/24 Barry Ybarra MD [address] [place] [address] Assigned Infectious Disease Provider 10/27/24 documented as of this encounter
--- OUTSIDE RECORDS SUMMARY | 2024-11-12 17:29 | XMS_ITS | Encounter Summary ---
Author Organization [place] Address [address] [place] [address] Care Team Providers Care Document Management Consultant Name Role Phone Sheryl Stringer ELI Unavailable [phone] Flynn Ruiz MD Unavailable [phone] Ruth Ann Munoz MD Primary Care Prov ider Ruth Ann Munoz MD Unavailable + Flynn Ruiz MD Primary Care Provider [phone] Ruth Ann Munoz MD Unavailable + Flynn Ruiz MD Unavailable [phone] Flynn Ruiz MD Unavailable [phone] Mari Funes RN Unavailable Unavailable Ruth Ann Munoz MD Unavailable + Trina Carbajal PA-C Unavailable [phone] Federico Linda MD Unavailable [phone] Trina Carbajal PA-C Primary Care Provider [phone] Connie Blackwell MD Unavailable [phone] Ruth [...] [phone] Vivien Blanchard MD Unavailable + [phone] Sapna Hernandez MD Unavailable Vivien Blanchard MD Unavailable [phone] Virgie Lobato PA-C Unavailable +[phone] Teetee Velazquez PA-C Unavailable [phone] Teetee Velazquez PA-C Unavailable +[phone] Cora Shah RN Unavailable [phone] Brad Mayer DO Unavailable [phone] Mary Garcia MD Primary Care Provider [phone] Cristal Cooper RN Unavailable Shannon Rowland PA-C Unavailable [phone], LD Unavailabl e Mary Garcia MD Unavailable Melonie Caro [facility] Unavailable [phone] Federico Linda MD Unavailable [phone] Melonie Caro [facility] Unavailable Virgie Lobato PA-C Unavailable [phone] Barry Ybarra MD Unavailable [phone] Barry Ybarra MD Unavailable [phone] Encounter Details Date Type Department Care Team (Late Contact Info) Description 09/29/2018 [facility] Medical Advice [address] [address] Flynn Ruiz MD [address] 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 Not on file Not on file documented as of this encounter Plan of Treatment Upcoming Encounters Date Type Department Care Team (Late Contact Info) Description 11/16/2024 1:00 PM CDT Allied Health/Nurse Visit [facility] Urology [address] [address] Lucero Britt PA-C 500 [place], [place] [address] 11/16/2024 2:45 PM CDT Office Visit [facility] Urology [address] [place] [phone] Vivien Blanchard MD 420 [facility] 394 [place], [place] [address] 11/20/2024 3:30 PM CDT Office Visit [facility] [address] [place] [phone] [place] [address] [place] [address] 11/22/2024 9:15 AM CDT Office Visit [facility] [address] [facility] [address] [place] [phone] Federico Linda MD 6408 [facility] [address] [place], [place] [address] 11/30/2024 10:30 AM CDT Lab [facility] [address] [place] [phone] 12/06/2024 10:10 AM CDT Office Visit [facility] [address] [phone] Virgie Lobato, PA-C 909 [place] [address] 12/28/2024 11:00 AM CDT Office Visit [facility] 2945 [facility] 200 [place] [phone] [place] [address] [place] [address] 200 [place] [address] 01/26/2025 11:30 AM CDT Office Visit [address] [phone] [place] [address] [place], [place] [address] documented as of this encounter Goals Goal Patient Goal Type Associated Problems Recent Progress Patient-Stated? Author Problem Solving General On track( 9:24 AM HAIRSPRING STUDDER) Yes Sheryl Stringer RD Note: My Goal: [...] Out COVID-19 2021 2021 04/25/2021 12:41 PM HAIRSPRING STUDDER Rule Out COVID-19 06/14/2022 06/14/2022 06/14/2022 11:30 AM HAIRSPRING STUDDER Rule Out COVID-19 07/03/2022 07/03/2022 07/04/2022 12:27 AM HAIRSPRING STUDDER Rule Out COVID-19 04/01/2024 04/01/2024 04/01/2024 10:07 PM CDT ESBL 07/05/2024 08/24/2024 Rule Out COVID-19 07/16/2024 07/16/2024 07/16/2024 11:04 PM HAIRSPRING STUDDER Rule Out COVID-19 09/01/2024 09/01/2024 09/01/2024 2:05 AM CDT Rule Out COVID-19 09/21/2024 09/21/2024 09/21/2024 3:25 PM CDT Assessment Noted Time PHQ-9 Depression Total Score: 6 08/09/19 19 8:45 AM HAIRSPRING STUDDER documented as of this encounter Care Teams Document Management Consultant Relationship Specialty Start Date End Date Ruth Ann Munoz MD [address] [place] [address] PCP - General Family Practice 08/31/18 04/13/19 Flynn Ruiz MD [place] [address] [place] [address] PCP - General Family Practice 04/14/19 05/18/20 Trina Carbajal PA-C 6405 [facility] [address] [place] [address] PCP - General Family Medicine 05/19/20 04/10/24 [place] [address] [place], [place] [address] PCP - General Family Medicine 04/11/[address] [place] [id number] Junior Marketing Associate Dietitian, Registered 11/03/17 Flynn Ruiz MD [address] [place] [address] Assigned PCP 04/24/18 12/24/18 Ruth Ann Munoz MD [place] [address] [place] 1235[address] Assigned PCP 12/25/18 04/22/19 Ruth Ann Munoz MD [place] [address] [place] 352498 Assigned PCP 04/30/19 05/27/19 Flynn Ruiz MD [address] [place] [address] Assigned PCP 04/23/19 04/29/19 Flynn Ruiz MD [address] [place] [address] Assigned PCP 05/28/19 07/22/19 Mari Funes RN Personal Advocate & Liaison (PAL) 07/27/19 07/30/19 Ruth Ann Munoz MD [facility] [address] [place] [address] Assigned PCP 07/23/19 08/12/19 Trina Carbajal PAAnthonyC [address] [place] [address]135 Assigned PCP 08/13/19 07/27/20 Federico Linda MD [address] [place] [address] Assigned Heart and Vascular Provider 03/29/20 Connie Blackwell MD [address] [place], [place] [address] Assigned Endocrinology Provider 07/14/20 12/19/20 Ruth Ann Munoz MD [place] [address] [place] [address] Assigned PCP 07/28/20 08/25/20 Carlos Livingston MD NO INFO AVAILABLE Assigned PCP 08/26/20 08/31/20 Trina Carbajal PA-C [address] [place] [address] Assigned PCP 09/01/20 12/07/20 Carlos Livingston MD NO INFO AVAILABLE Assigned Endocrinology Provider 12/20/20 12/18/22 Carlos Livingston MD NO INFO AVAILABLE Assigned PCP 12/08/20 12/19/20 Trina Carbajal PA-C [address] [place] [address]75 Assigned PCP 12/20/20 04/28/24 Mari Funes RN Personal Advocate & Liaison (PAL) Nurse 01/24/21 06/12/21 Jc Zavala MD [place] [facility] [place] [address] [facility] [address] [place] [address] Hematology & Oncology 08/07/21 Barbi Manzo, JERRY Personal Advocate & Liaison (PAL) Family Medicine 12/24/21 07/08/23 [place] [address] [place] [address] [place] [address] Assigned Musculoskeletal Provider 04/04/22 08/19/23 Cristofer Michelle MD [address] [place], [place] [address]B [address] [place] [address] Gastroenterology 07/28/22 Vivien Blanchard MD [address] 814[address] Urology 07/28/22 Sapna Hernandez MD [address] [place] [address] 957365 Assigned Nephrology Provider 07/11/22 09/25/22 Vivien Blanchard MD [address] [place] [address] 793635 Assigned Surgical Provider 07/25/22 06/30/23 Virgie Lobato PA-C [address] [place] [address] Assigned Nephrology Provider 09/26/22 03/28/24 Teetee Velazquez PA-C [address] [place] [address] Physician Technical Analyst 05/11/23 Teetee Velazquez PA-C [address] [place] [address] Assigned Surgical Provider 07/01/23 Cora Shah, JERRY Personal Advocate & Liaison (PAL) Nurse 07/09/23 09/29/23 [place] [address] [address] [address] Assigned Musculoskeletal Provider 08/20/23 Cristal Cooper, RN Lead Polystyrene Bead Molder Primary Care - CC 04/27/2404/08 Shannon Rowland PA-C [address] [place] [address] Assigned PCP 04/29/24 05/28/24 Lanie Foster, RD, LD [address] [place], [place] [address] Registered Dietitian Nutrition 05/15/24 [place] [address] [place], [place] 7624[address] Assigned PCP 05/29/24 Melonie Caro [facility] [address] [place], [place] [address] Pharmacist Pharmacist 06/05/24 Federico Linda MD [address] [facility] [address] S [facility] [address] [place] [address] Cardiovascular Disease 06/13/24 Melonie Caro [facility] [address] [place] [address] Assigned MTM Pharmacist 06/29/24 Virgie Lobato PA-C [address] [place] [address] Assigned Nephrology Provider 07/30/24 Barry Ybarra MD [facility] [address] [address] Hospitalist Infectious Diseases 08/31/24 Barry Ybarra MD [facility] [address] [place] [address] Assigned Infectious Disease Provider 10/27/24 documented as of this encounter
--- OUTSIDE RECORDS SUMMARY | 2024-11-12 17:29 | XMS_ITS | Encounter Summary ---
Author Organization [place] Address [address] [place] [address] Care Team Providers Care Galvanizer Name Role Phone Sheryl Stringer Kirk BENITEZ Unavailable [phone] Federico Linda MD Unavailable [phone] Trina CarbajalC Primary Care Provider Carlos Livingston MD Unavailable Jelena vailable Trina Carbajal PA-C Unavailable [phone] Mari Funes RN Unavailable Unavailable Jc Zavala MD Unavailable [phone] Barbi Manzo RN Unavailable Unavailable Erasto Root MD Unavailable Cristofer Michelle MD Unavailable [phone] Vivien Blanchard MD Unavailable [phone] Sapna Hernandez MD Unavailable Vivien Blanchard MD Unavailable [phone] Virgie LobatoC Unavailable Teetee Velazquez PA-C Unavailable [phone] Teetee Velazquez-C Unavailable [phone] Cora Shah RN Unavailable Brad Mayer Unavailable [phone] Mary Garcia MD Primary Care Provider Cristal Cooper RN Unavailable Shannon Rowland PA-C Unavailable [phone], LD Unavailabl e Mary Garcia MD Unavailable Melonie Caro [facility] Unavailable Federico Linda MD Unavailable [phone] Melonie Caro [facility] Unavailable Virgie Lobato-C Unavailable [phone] Barry Ybarra MD Unavailable [phone] Barry Ybarra MD Unavailable [phone] Encounter Details Date Type Department Care Team (Late st Contact Info) Description 12/20/2020 [facility] [place] Medical Advice [address] [phone] Carlos Livingston MD NO INFO AVAILABLE Social History Tobacco Use Types Packs/Day Years Used Date Smoking Tobacco: Never Smokeless Tobacco: Never Alcohol Use Standard Drinks/Week Comments No 0 (1 standard drink = 0.6 oz pur e alcohol) PHQ-2 Answer Date Recorded PHQ-2 Score 0 08/23/2020 Comments No Sex and Gender Information Value Date Recorded Sex Assigned at Female 07/18/2020 1:16 PM TRANSCRIPT EVALUATOR Legal Sex Female 3:23 AM TRANSCRIPT EVALUATOR Gender Identity Female 07/18/2020 1:16 PM TRANSCRIPT EVALUATOR Sexual Orientation Straight 07/18/2020 1: 16 PM TRANSCRIPT EVALUATOR 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 file [...] CDT Allied Health/Nurse Visit [facility] [address] [place] [phone] Lucero Britt PA-C 500 [place], [place] [phone] 11/16/2024 2:45 PM CDT Office Visit [facility] [address] [address] Vivien Blanchard MD 420 [facility] 394 [place], [place] [phone] 11/20/2024 3:30 PM CDT Office Visit [facility] [address] [place] [phone] [place] [phone] [place] [address] 11/22/2024 9:15 AM CDT Office Visit [facility] Heart [facility] [address] [facility] [address] [place] [phone] Federico Linda MD 8061 [facility] [address] [place], [place] [address] 11/30/2024 10:30 AM CDT Lab [facility] [address] [place] [phone] 12/06/2024 10:10 AM CDT Office Visit [facility] 6525 [facility] 200 [place] [phone] Virgie Lobato PANilesh 909 [place] [address] 12/28/2024 11:00 AM CDT Office Visit [facility] 2945 [facility] 200 [place] [address] Barry Ybarra MD [address] [place] [address] 01/26/2025 11:30 AM CDT Office Visit [facility] [address] [place] [phone] [place] [address] [place] [address] documented as of this encounter Goals Goal Patient Goal Type Associated Problems Recent Progress Patient-Stated? Author Problem Solving General On track( 9:24 AM TRANSCRIPT EVALUATOR) Yes Sheryl Stringer RD Note: My Goal: [...] Out COVID-19 2021 2021 04/25/2021 12:41 PM TRANSCRIPT EVALUATOR Rule Out COVID-19 06/14/2022 06/14/2022 06/14/2022 11:30 AM TRANSCRIPT EVALUATOR Rule Out COVID-19 07/03/2022 07/03/2022 07/04/2022 12:27 AM TRANSCRIPT EVALUATOR Rule Out COVID-19 04/01/2024 04/01/2024 04/01/2024 10:07 PM CDT ESBL 07/05/2024 08/24/2024 Rule Out COVID-19 07/16/2024 07/16/2024 07/16/2024 11:04 PM TRANSCRIPT EVALUATOR Rule Out COVID-19 09/01/2024 09/01/2024 09/01/2024 2:05 AM CDT Rule Out COVID-19 09/21/2024 09/21/2024 09/21/2024 3:25 PM CDT Assessment Noted Time PHQ-9 Depression Total Score: 6 08/25/19 21 7:03 AM CDT documented as of this encounter Care Teams Galvanizer Relationship Specialty Start Date End Date Trina Carbajal PA-C [address] [place] [address] PCP - General Family Medicine 05/19/20 04/10/24 [place] [address] [place] [address] PCP - General Family Medicine 04/11/[address] [facility] [address] [place] [address] Bag Washer Dietitian, Registered 11/03/17 Federico Linda MD [address] [place] [address] Assigned Heart and Vascular Provider 03/29/20 Carlos Livingston MD NO INFO AVAILABLE Assigned Endocrinology Provider 12/20/20 12/18/22 Trina Carbajal PA-C 6405 [facility] [address] [place] [address] Assigned PCP 12/20/20 04/28/24 Mari Funes, JERRY Personal Advocate & Liaison (PAL) Nurse 01/24/21 06/12/21 Jc Zavala MD [facility] [address] [place] [address] Hematology & Oncology 08/07/21 Barbi Manzo, JERRY Personal Advocate & Liaison (PAL) Family Medicine 12/24/21 07/08/23 [place] [address] [place] [address] Assigned Musculoskeletal Provider 04/04/22 08/19/23 Cristofer Michelle MD [address] [place] [address] [address] [place] [address] Gastroenterology 07/28/22 Vivien Blanchard MD [address] [place] [address] Urology 07/28/22 Sapna Hernandez MD [address] [place] [address] [phone] Assigned Nephrology Provider 07/11/22 09/25/22 Vivien Blanchard MD [address] [place] [address] [phone] Assigned Surgical Provider 07/25/22 06/30/23 Virgie Lobato PA-C [address] [place] [address] [phone] Assigned Nephrology Provider 09/26/22 03/28/24 Teetee Velazquez PA-C [address] [place] [address] 960625 Physician Picking Table Worker 05/11/23 Teetee Velazquez PA-C [address] [place] [address] 990405 Assigned Surgical Provider 07/01/23 Cora Shah RN Personal Advocate & Liaison (PAL) Nurse 07/09/23 09/29/23 [place] [address] [address] 242507 Assigned Musculoskeletal Provider 08/20/23 Cristal Cooper RN Lead Supervisor Fertilizer Processing Primary Care - CC 04/27/2404/08 Shannon Rowland PA-C [address] [place] [address]83 Assigned PCP 04/29/24 05/28/24 Lanie Foster, RD, LD [address] [place] [address] Registered Dietitian Nutrition 05/15/24 [place] [address] [place] [address] Assigned PCP 05/29/24 Melonie Caro RPH [address] [place] [address] Pharmacist Pharmacist 06/05/24 Federico Linda MD 6405 [facility] [address] [place] [address] Cardiovascular Disease 06/13/24 Melonie Caro RPH [address] [place] [address] Assigned MTM Pharmacist 06/29/24 Virgie Lobato, PAAnthonyC [address] [place] [address] Assigned Nephrology Provider 07/30/24 Barry Ybarra MD [address] [place] [address] Hospitalist Infectious Diseases 08/31/24 Barry Ybarra MD [address] [place] [address] Assigned Infectious Disease Provider 10/27/24 documented as of this encounter
--- OUTSIDE RECORDS SUMMARY | 2024-11-12 17:30 | XMS_ITS | Encounter Summary ---
Author Organization [place] Address [address] [place] [address] Care Team Providers Care Liquefier Name Role Phone Sheryl Stringer Kirk BENITEZ Unavailable [phone] Federico Linda MD Unavailable [phone] Trina Carbajal-C Primary Care Provider Carlos Livingston MD Unavailable Jelena vailable Trina CarbajalC Unavailable [phone] Jc Zavala MD Unavailable [phone] Barbi Manzo RN Unavailable Unavailable Erasto Root MD Unavailable Cristofer Michelle MD Unavailable [phone] Vivien Blanchard MD Unavailable [phone] Sapna Hernandez MD Unavailable Vivien Blanchard MD Unavailable [phone] Virgie Lobato-C Unavailable [phone] Teetee Velazquez PA-C Unavailable [phone] Teetee Velazquez PA-C Unavailable [phone] Cora Shah RN Unavailable MorenoBrad Unavailable [phone] Mary Garcia MD Primary Care Provider [phone] Cristal Cooper RN Unavailable Shannon Rowland PA-C Unavailable [phone], LD Unavailabl e Mary Garcia MD Unavailable Melonie Caro [facility] Unavailable Federico Linda MD Unavailable Melonie Caro [facility] Unavailable Virgie Lobato PA-C Unavailable Barry Ybarra MD Unavailable Barry Ybarra MD Unavailable Encounter Details Date Type Department Care Team (Late st Contact Info) Description 07/07/2022 [facility] [place] [place] [facility] Heart [facility] [address] [facility] [address] [place] [address] Federico Linda MD 4647 [facility] [address] [place], [place] 181345 Social History Tobacco Use Types Packs/Day Years Used Date Smoking Tobacco: Never Smokeless Tobacco: Never Alcohol Use Standard Drinks/Week Comments No 0 (1 standard drink = 0.6 oz pur e alcohol) PHQ-2 Answer Date Recorded PHQ-2 Score 1 06/19/2022 Comments No Sex and Gender Information Value Date Recorded Sex Assigned at Female 07/18/2020 1:16 PM GLOBAL SUPPLY CHAIN DIRECTOR Legal Sex Female 3:23 AM GLOBAL SUPPLY CHAIN DIRECTOR Gender Identity Female 07/18/2020 1:16 PM GLOBAL SUPPLY CHAIN DIRECTOR Sexual Orientation Straight 07/18/2020 1: 16 PM GLOBAL SUPPLY CHAIN DIRECTOR 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 No / Unsure 07/03/2022 9:33 PM GLOBAL SUPPLY CHAIN DIRECTOR documented as of this encounter Plan of Treatment Upcoming Encounters Date Type Department Care Team (Late st Contact Info) Description 11/16/2024 1:00 PM CDT Allied Health/Nurse Visit [facility] Urology [address] [address] Lucero Britt PA-C 500 [place], [place] [phone] 11/16/2024 2:45 PM CDT Office Visit [facility] Urology [address] [phone] Vivien Blanchard MD 420 [facility] 394 [place], [place] [address] 11/20/2024 3:30 PM CDT Office Visit [address] [phone] Mary Garcia MD [address] [place] [address] 11/22/2024 9:15 AM CDT Office Visit [facility] Heart [facility] [address] [facility] [address] [place] [phone] Federico Linda MD 6401 [facility] [address] [place], [place] [address] 11/30/2024 10:30 AM CDT Lab [facility] [address] [place] [address] 12/06/2024 10:10 AM CDT Office Visit [facility] [address] [address] Virgie Lobato PANilesh 909 [place] [address] 12/28/2024 11:00 AM CDT Office Visit [facility] 2945 [facility] 200 [place] [phone] Barry Ybarra MD [address] [place] [address] 01/26/2025 11:30 AM CDT Office Visit [facility] [address] [place] [address] [place] [address] [place] [address] documented as of this encounter Goals Goal Patient Goal Type Associated Problems Recent Progress Patient-Stated? Author Problem Solving General On track( 019 9:24 AM GLOBAL SUPPLY CHAIN DIRECTOR) Yes Sheryl Stringer RD Note: My Goal: [...] Out COVID-19 07/16/2024 07/16/2024 07/16/2024 11:04 PM GLOBAL SUPPLY CHAIN DIRECTOR Rule Out COVID-19 09/01/2024 09/01/2024 09/01/2024 2:05 AM CDT Rule Out COVID-19 09/21/2024 09/21/2024 09/21/2024 3:25 PM CDT Assessment Noted Time PHQ-9 Depression Total Score: 4 06/19/19 23 11:34 AM GLOBAL SUPPLY CHAIN DIRECTOR documented as of this encounter Care Teams Liquefier Relationship Specialty Start Date End Date Trina Carbajal PA-C [address] [place] [address] PCP - General Family Medicine 05/19/20 04/10/24 [place] [address] [place] [address] PCP - General Family Medicine 04/11/[address] [place] [address] Oliver Filter Operator Dietitian, Registered 11/03/17 Federico Linda MD [address] [place] [address] Assigned Heart and Vascular Provider 03/29/20 Carlos Livingston MD NO INFO AVAILABLE Assigned Endocrinology Provider 12/20/20 12/18/22 Trina Carbajal PA-C [address] [place] [address] Assigned PCP 12/20/20 04/28/24 Jc Zavala MD [facility] [address] [place] [address] Hematology & Oncology 08/07/21 Barbi Manzo, JERRY Personal Advocate & Liaison (PAL) Family Medicine 12/24/21 07/08/23 [place] [address] [address] Assigned Musculoskeletal Provider 04/04/22 08/19/23 Cristofer Michelle MD [address] [place] [address] Gastroenterology 07/28/22 Vivien Blanchard MD [address] [place] [address] Urology 07/28/22 Sapna Hernandez MD 420 [facility] 394 [place] [address] Assigned Nephrology Provider 07/11/22 09/25/22 Vivien Blanchard MD [address] [place] [address] Assigned Surgical Provider 07/25/22 06/30/23 Virgie Lobato PA-C 909 [place] [address] Assigned Nephrology Provider 09/26/22 03/28/24 Teetee Velazquez PA-C 909 [place], [place] [phone] Physician Graphic Design Specialist 05/11/23 Teetee Velazquez PA-C 909 [place] [address] Assigned Surgical Provider 07/01/23 Cora Shah, RN Personal Advocate & Liaison (PAL) Nurse 07/09/23 09/29/23 [place] [address] [address] [place], [place] 108607 Assigned Musculoskeletal Provider 08/20/23 Cristal Cooper RN Lead Cold Water Machine Operator Primary Care - CC 04/27/2404/08 Shannon Rowland PA-C [address] [place] [phone] Assigned PCP 04/29/24 05/28/24 Lanie Foster, RD, LD [address] [place] 915785 Registered Dietitian Nutrition 05/15/24 [place] [address] [place] [address] Assigned PCP 05/29/24 Melonie Caro [facility] [address] [place], [place] 446797 Pharmacist Pharmacist 06/05/24 Federico Linda MD [address] [facility] [facility] [address] [place] 391455 Cardiovascular Disease 06/13/24 Melonie Caro [facility] [address] [place] [address] Assigned MTM Pharmacist 06/29/24 Virgie Lobato PA-C [address] [place] [address] Assigned Nephrology Provider 07/30/24 Barry Ybarra MD [address] [place] [address] Hospitalist Infectious Diseases 08/31/24 Barry Ybarra MD [address] [place] [address] Assigned Infectious Disease Provider 10/27/24 documented as of this encounter
--- OUTSIDE RECORDS SUMMARY | 2024-11-12 17:30 | XMS_ITS | Encounter Summary ---
Author Organization [place] Address [address] [place] [address] Care Team Providers Care Cable Technician Name Role Phone Sheryl Stringer Kirk BENITEZ Unavailable [phone] Federico Linda MD Unavailable [phone] Trina Carbajal PA-C Primary Care Provider Connie Blackwell MD Unavailable [phone] Trina Carbajal PA-C Unavailable [phone] Carlos Livingston MD Unavailable Jelena vailable Carlos Livingston MD Unavailable Jelena vailable Trina Carbajal PA-C Unavailable [phone] Mari Funes RN Unavailable Unavailable Jc Zavala MD Unavailable [phone] Barbi Manzo RN Unavailable Unavailable Erasto Root MD Unavailable Cristofer Michelle MD Unavailable [phone] Vivien Blanchard MD Unavailable [phone] Sapna Hernandez MD Unavailable Vivien Blanchard MD Unavailable [phone] Virgie Lobato PA-C Unavailable [phone] Teetee Velazquez PA-C Unavailable [phone] Teetee Velazquez PA-C Unavailable [phone] Cora Shah RN Unavailable [phone] Brad Mayer DO Unavailable [phone] Mary Garcia MD Primary Care Provider Cristal Cooper RN Unavailable Shannon Rowland PA-C Unavailable [phone], LD Unavailabl e Mary Garcia MD Unavailable Melonie Caro [facility] Unavailable Federico Linda MD Unavailable [phone] Melonie Caro [facility] Unavailable Virgie viramontes PA-C Unavailable [phone] Barry Ybarra MD Unavailable [phone] Barry Ybarra MD Unavailable [phone] Encounter Details Date Type Department Care Team (Late st Contact Info) Description 10/23/2020 [facility] [place] [address] [place] [address] Carlos Livingston MD [...] Sex Assigned at Female 07/18/2020 1:16 PM CONSERVATION BIOLOGY PROFESSOR Legal Sex Female 3:23 AM CONSERVATION BIOLOGY PROFESSOR Gender Identity Female 07/18/2020 1:16 PM CONSERVATION BIOLOGY PROFESSOR Sexual Orientation Straight 07/18/2020 1: 16 PM CONSERVATION BIOLOGY PROFESSOR 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 Not on file Not on file documented as of this encounter Plan of Treatment Upcoming Encounters Date Type Department Care Team (Late st Contact Info) Description 11/16/2024 1:00 PM CDT Allied Health/Nurse Visit [facility] Urology [address] [phone] Lucero Britt PA-C 500 [place], [place] [phone] 11/16/2024 2:45 PM CDT Office Visit [facility] Urology [address] [address] Vivien Blanchard MD 420 [facility] 394 [place], [place] [address] 11/20/2024 3:30 PM CDT Office Visit [facility] [address] [place] [phone] [place] [address] [place] [address] 11/22/2024 9:15 AM CDT Office Visit [facility] Heart [facility] [address] [facility] [address] [place] [phone] Federico Linda MD 2964 [facility] [address] [place] [address] 882435 11/30/2024 10:30 AM CDT Lab [facility] Laboratory [address] [place] [phone] 12/06/2024 10:10 AM CDT Office Visit [facility] 6525 [facility] 200 [place] [phone] Virgie Lobato PA-C 909 [place] [address] 12/28/2024 11:00 AM CDT Office Visit [facility] 2945 [facility] 200 [place] [address] Barry Ybarra MD [address] [place] [address] 01/26/2025 11:30 AM CDT Office Visit [address] [phone] [place] [address] [place] [address] documented as of this encounter Goals Goal Patient Goal Type Associated Problems Recent Progress Patient-Stated? Author Problem Solving General On track( 9:24 AM CONSERVATION BIOLOGY PROFESSOR) Yes Sheryl Stringer RD Note: My [...] Out COVID-19 2021 2021 04/25/2021 12:41 PM CONSERVATION BIOLOGY PROFESSOR Rule Out COVID-19 06/14/2022 06/14/2022 06/14/2022 11:30 AM CONSERVATION BIOLOGY PROFESSOR Rule Out COVID-19 07/03/2022 07/03/2022 07/04/2022 12:27 AM CONSERVATION BIOLOGY PROFESSOR Rule Out COVID-19 04/01/2024 04/01/2024 04/01/2024 10:07 PM CDT ESBL 07/05/2024 08/24/2024 Rule Out COVID-19 07/16/2024 07/16/2024 07/16/2024 11:04 PM CONSERVATION BIOLOGY PROFESSOR Rule Out COVID-19 09/01/2024 09/01/2024 09/01/2024 2:05 AM CDT Rule Out COVID-19 09/21/2024 09/21/2024 09/21/2024 3:25 PM CDT Assessment Noted Time PHQ-9 Depression Total Score: 6 08/25/19 21 7:03 AM CDT documented as of this encounter Care Teams Cable Technician Relationship Specialty Start Date End Date Trina Carbajal PA-C [address] [place] [address] PCP - General Family Medicine 05/19/20 04/10/24 [place] [address] [place] [address] PCP - General Family Medicine 04/11/[address] [facility] [address] [place] [address] [place] [address] Painting And Coating Worker Dietitian, Registered 11/03/17 Federico Linda MD [address] [place] [address] Assigned Heart and Vascular Provider 03/29/20 Connie Blackwell MD [address] [place] [address] Assigned Endocrinology Provider 07/14/20 12/19/20 Trina Carbajal PA-C [address] [place] [address] Assigned PCP 09/01/20 12/07/20 Carlos Livingston MD NO INFO AVAILABLE Assigned Endocrinology Provider 12/20/20 12/18/22 Carlos Livingston MD NO INFO AVAILABLE Assigned PCP 12/08/20 12/19/20 Trina Carbajal PA-C [address] [place] 8[address]85 Assigned PCP 12/20/20 04/28/24 Mari Funes RN Personal Advocate & Liaison (PAL) Nurse 01/24/21 06/12/21 Jc Zavala MD [facility]5 [facility] 100 [place] [address] Hematology & Oncology 08/07/21 Barbi Manzo, JERRY Personal Advocate & Liaison (PAL) Family Medicine 12/24/21 07/08/23 [place] [address] [place] [address] [place] [address] Assigned Musculoskeletal Provider 04/04/22 08/19/23 Cristofer Michelle MD [address] [place], [place] [address]B 1E [place] [address] Gastroenterology 07/28/22 Vivien Blanchard MD 420 [facility] 394 [place], [place] 464715 Urology 07/28/22 Sapna Hernandez MD 420 [facility] 394 [place], [place] 9[address] Assigned Nephrology Provider 07/11/22 09/25/22 Vivien Blanchard MD [address] [place] [address] 278445 Assigned Surgical Provider 07/25/22 06/30/23 Virgie Lobato PA-C [address] [place] [address] 690585 Assigned Nephrology Provider 09/26/22 03/28/24 Teetee Velazquez PA-C [address] [place] [address] 109725 Physician Renewable Energy Consultant 05/11/23 Teetee Velazquez PA-C [address] [place] [address] Assigned Surgical Provider 07/01/23 Cora Shah, JERRY Personal Advocate & Liaison (PAL) Nurse 07/09/23 09/29/23 [place] [address] [address] [address] Assigned Musculoskeletal Provider 08/20/23 Cristal Cooper, RN Lead Mental Hygiene Consultant Primary Care - CC 04/27/2404/08 Shannon Rowland PA-C [address] [place] [address]11883 Assigned PCP 04/29/24 05/28/24 Lanie oFster, RD, LD [address] [place] 274445 Registered Dietitian Nutrition 05/15/24 [place] [address] [place] [address] Assigned PCP 05/29/24 Melonie Caro [facility] [address] [place] [address] Pharmacist Pharmacist 06/05/24 Federico Linda MD [address] [facility] [address] [place] [address] Cardiovascular Disease 06/13/24 Mleonie Caro RPH 303 [place] [address] Assigned MTM Pharmacist 06/29/24 Virgie Lobato PA-C [address] [place] [address] 639075 Assigned Nephrology Provider 07/30/24 Barry Ybarra MD [address] [phone] Hospitalist Infectious Diseases 08/31/24 Barry Ybarra MD [facility] [address] [address] Assigned Infectious Disease Provider 10/27/24 documented as of this encounter
--- OUTSIDE RECORDS SUMMARY | 2024-11-12 17:30 | XMS_ITS | Encounter Summary ---
Author Organization [facility] Address [address] [place] [address] Care Team Providers Care Glove Turner And Former Name Role Phone Sheryl Stringer Kirk BENITEZ Unavailable [phone] Federico Linda MD Unavailable [phone] Trina Carbajal-C Primary Care Provider Carlos Livingston MD Unavailable Jelena vailable Trina CarbajalC Unavailable [phone] Jc Zavala MD Unavailable [phone] Barbi Manzo RN Unavailable Unavailable Erasto Root MD Unavailable Cristofer Michelle MD Unavailable [phone] Vivien Blanchard MD Unavailable [phone] Sapna Hernandez MD Unavailable Vivien Blanchard MD Unavailable [phone] Virgie Lobato-C Unavailable [phone] Teetee Velazquez PA-C Unavailable [phone] Teetee Velazquez-Javi Unavailable [phone] Cora Shah RN Unavailable MorenoBrad Unavailable [phone] Mary Garcia MD Primary Care Provider Cristal Cooper RN Unavailable hSannon Rowland PA-C Unavailable [phone], LD Unavailabl e Mary Garcia MD Unavailable Melonie Caro [facility] Unavailable Federico Linda MD Unavailable Melonie Caro [facility] Unavailable Virgie Lobato PA-C Unavailable [phone] Barry Ybarra MD Unavailable Barry Ybarra MD Unavailable [phone] Encounter Details Date Type Department Care Team (Late st Contact Info) Description 07/10/2022 [facility] Medical Advice [facility] Specialty [address] [address] Sapna Hernandez MD [address] [place] [address] Social History Tobacco Use Types Packs/Day Years Used Date Smoking Tobacco: Never Smokeless Tobacco: Never Alcohol Use Standard Drinks/Week Comments No 0 (1 standard drink = 0.6 oz pur e alcohol) PHQ-2 Answer Date Recorded PHQ-2 Score 1 06/19/2022 Comments No Sex and Gender Information Value Date Recorded Sex Assigned at Female 07/18/2020 1:16 PM TUBE REPAIRER Legal Sex Female 3:23 AM TUBE REPAIRER Gender Identity Female 07/18/2020 1:16 PM TUBE REPAIRER Sexual Orientation Straight 07/18/2020 1: 16 PM TUBE REPAIRER 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 No / Unsure 07/03/2022 9:33 PM TUBE REPAIRER documented as of this encounter Plan of Treatment Upcoming Encounters Date Type Department Care Team (Late st Contact Info) Description 11/16/2024 1:00 PM CDT Allied Health/Nurse Visit [facility] Urology [address] [place] [address] Lucero Britt PA-C 500 [place], [place] [phone] 11/16/2024 2:45 PM CDT Office Visit [facility] [address] [phone] Vivien Blanchard MD 420 [facility] 394 [place], [place] [phone] 11/20/2024 3:30 PM CDT Office Visit [address] [phone] Mary Garcia MD [address] [place] [address] 11/22/2024 9:15 AM CDT Office Visit [facility] Heart [facility] [address] [facility] [address] [place] [phone] Federico Linda MD [address] [facility] [address] [place], [place] [address] 11/30/2024 10:30 AM CDT Lab [facility] [address] [place] [address] 12/06/2024 10:10 AM CDT Office Visit [facility] [address] [address] Virgie Lobato, PANilesh [address] [place] [address] 12/28/2024 11:00 AM CDT Office Visit [facility] [address] [place] [phone] Barry Ybarra MD [address] [place] [address] 01/26/2025 11:30 AM CDT Office Visit [facility] [address] [place] [phone] [place] [address] [place] [address] documented as of this encounter Goals Goal Patient Goal Type Associated Problems Recent Progress Patient-Stated? Author Problem Solving General On track( 019 9:24 AM TUBE REPAIRER) Yes Sheryl Stringer RD Note: My Goal: [...] COVID-19 07/16/2024 07/16/2024 07/16/2024 11:04 PM TUBE REPAIRER Rule Out COVID-19 09/01/2024 09/01/2024 09/01/2024 2:05 AM CDT Rule Out COVID-19 09/21/2024 09/21/2024 09/21/2024 3:25 PM CDT Assessment Noted Time PHQ-9 Depression Total Score: 4 06/19/19 23 11:34 AM TUBE REPAIRER documented as of this encounter Care Teams Glove Turner And Former Relationship Specialty Start Date End Date Trina Carbajal PA-C [address] [place] [address] PCP - General Family Medicine 05/19/20 04/10/24 [place] [address] [place] [address] PCP - General Family Medicine 04/11/[address] [place] [place] [address] Ceramic Tile Installation Helper Dietitian, Registered 11/03/17 Federico Linda MD [address] [place] [address] Assigned Heart and Vascular Provider 03/29/20 Carlos Livingston MD NO INFO AVAILABLE Assigned Endocrinology Provider 12/20/20 12/18/22 Trina Carbajal PA-C [address] [place] [address] Assigned PCP 12/20/20 04/28/24 Jc Zavala MD [facility] [address] [place] [address] Hematology & Oncology 08/07/21 Barbi Manzo, JERRY Personal Advocate & Liaison (PAL) Family Medicine 12/24/21 07/08/23 [place] [address] [address] Assigned Musculoskeletal Provider 04/04/22 08/19/23 Cristofer Michelle MD [address] [place] [address] Gastroenterology 07/28/22 Vivien Blanchard MD [address] [place] [address] Urology 07/28/22 Sapna Hernandez MD [address] [address] Assigned Nephrology Provider 07/11/22 09/25/22 Vivien Blanchard MD [address] [place] [address] 478[address] Assigned Surgical Provider 07/25/22 06/30/23 Virgie Lobato PA-C 909 [place], [place] 416175 Assigned Nephrology Provider 09/26/22 03/28/24 Teetee Velazquez PA-C 909 [place], [place] 295115 Physician Programming Instructor 05/11/23 Teetee Velazquez PA-C 909 [place] [address] Assigned Surgical Provider 07/01/23 Cora Shah, RN Personal Advocate & Liaison (PAL) Nurse 07/09/23 09/29/23 [place] [address] [place] , [facility] [address] [place], [place] 875[address] Assigned Musculoskeletal Provider 08/20/23 Cristal Cooper RN Lead Speech Scientist Primary Care - CC 04/27/2404/08 Shannon Rowland PA-C [address] [place] [phone] Assigned PCP 04/29/24 05/28/24 Lanie Foster, RD, LD [address] [place] [id number] Registered Dietitian Nutrition 05/15/24 [place] [address] [place] [address] Assigned PCP 05/29/24 Melonie Caro [facility] [address] [place], [place] [phone] Pharmacist Pharmacist 06/05/24 Federico Linda MD [address] [facility] [address] [place] [address] Cardiovascular Disease 06/13/24 Melonie Caro [facility] [address] [place] [address] Assigned MTM Pharmacist 06/29/24 Virgie Lobato PA-C [address] [place] [address] Assigned Nephrology Provider 07/30/24 Barry Ybarra MD [address] [place] [address] Hospitalist Infectious Diseases 08/31/24 Barry Ybarra MD [address] [place] [address] Assigned Infectious Disease Provider 10/27/24 documented as of this encounter
--- OUTSIDE RECORDS SUMMARY | 2024-11-12 17:30 | XMS_ITS | Encounter Summary ---
Author Organization [facility] Address [address] [place] [address] Care Team Providers Care Road Cleaner Name Role Phone Sheryl Stringer Kirk BENITEZ Unavailable [phone] Federico Linda MD Unavailable [phone] Trina Carbajal-C Primary Care Provider Carlos Livingston MD Unavailable Jelena vailable Trina CarbajalC Unavailable [phone] Jc Zavala MD Unavailable [phone] Barbi Manzo RN Unavailable Unavailable Erasto Root MD Unavailable Cristofer Michelle MD Unavailable [phone] Vivien Blanchard MD Unavailable [phone] Sapna Hernandez MD Unavailable Vivien Blanchard MD Unavailable [phone] Virgie Lobato-C Unavailable [phone] Teetee Velazquez PA-C Unavailable [phone] Teetee Velazquez PA-C Unavailable [phone] Cora Shah RN Unavailable Moreno, Brad Unavailable [phone] Mary Garcia MD Primary Care Provider Cristal Cooper RN Unavailable Shannon Rowland PA-C Unavailable [phone], LD Unavailabl e Mary Garcia MD Unavailable Melonie Caro [facility] Unavailable Federico Linda MD Unavailable [phone] Melonie Caro [facility] Unavailable Virgie Lobato PA-C Unavailable [phone] Barry Ybarra MD Unavailable Barry Ybarra MD Unavailable Reason for Visit * Reason Onset Date Comments Medication Request 07/21/2022 Medications f or nausea Encounter Details Date Type Department Care Team (Late st Contact Info) Description 07/21/2022 [facility] Medical Advice [address] [address] Trina Carbajal PA-C [address] [facility] [address] [place] [address] Medication Request (Medications for nausea) Social History Tobacco Use Types Packs/Day Years Used Date Smoking Tobacco: Never Smokeless Tobacco: Never Alcohol Use Standard Drinks/Week Comments No 0 (1 standard drink = 0.6 oz pur e alcohol) PHQ-2 Answer Date Recorded PHQ-2 Score 0 07/22/2022 Comments No Sex and Gender Information Value Date Recorded Sex Assigned at Female 07/18/2020 1:16 PM PHOTOGRAMMETRIC STEREO COMPILER Legal Sex Female 3:23 AM PHOTOGRAMMETRIC STEREO COMPILER Gender Identity Female 07/18/2020 1:16 PM PHOTOGRAMMETRIC STEREO COMPILER Sexual Orientation Straight 07/18/2020 1: 16 PM PHOTOGRAMMETRIC STEREO COMPILER 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 No / Unsure 07/22/2022 10:20 AM PHOTOGRAMMETRIC STEREO COMPILER documented as of this encounter Miscellaneous Notes * Telephone Encounter - Barbi Manzo RN - 07/21/2022 12:42 PM PHOTOGRAMMETRIC STEREO COMPILER Spoke to Alma and informed rx sent. Alma verbalized understanding and will make sure patient picks up medications today. Barbi Asher RN, BSN, PHN - PAL (patient advocate liaison) [facility] OGRAMMETRIC STEREO COMPILER * Telephone Encounter - Marjorie Schultz PA-C - 07/21/2022 12:35 PM PHOTOGRAMMETRIC STEREO COMPILER Lorazepam sent for patient to take 30 minutes prior to appointment. OGRAMMETRIC STEREO COMPILER * Telephone Encounter - Barbi Manzo RN - 07/21/2022 12:11 PM PHOTOGRAMMETRIC STEREO COMPILER Marjorie Schultz PA-C- Patients daughter is requesting medication to help with patients anxiety and nerves regarding urology appointment/cystoscopy tomorrow, informs patient is very nervous about appointment and may be cause for current symptoms. Patient previously prescribed alprazolam by Dr. Helm, lorazepam noted on med list history as patient reported medication. Informed patient of note below via kooabahart. Called Alma, patients daughter to inform of note below. Alma verbalized understanding and discuss with patient. Patient has urology appointment tomorrow. Alma is wondering if patients symptoms are related to Urology appointment tomorrow. Reports patient gets really worked up and is anxious regarding appointment and cystoscopy. Patient cancelled previous urology appointment because she was nervous and felt her questions weren't being answered. This RN stressed the importance of Urology appointment tomorrow. Alma is agreeable. Alma is requesting a medication be sent to take 30 minutes prior to urology appointment to help patient relax. Reports CJ has prescribed previously for procedural appointments. Chart review, alprazolam 0.25 MG Tab prescribed by Dr. Helm prior to procedure. -Advised Trina Carbajal PA-C is out of clinic today. Will route to Marjorie Schultz PA-C toreview. OGRAMMETRIC STEREO COMPILER * Telephone Encounter - Marjorie Schultz PA-C - 07/21/2022 11:59 AM PHOTOGRAMMETRIC STEREO COMPILER Zofran sent to the pharmacy for patient. Urine does not show infection. If not improving needs visit to evaluate further. OGRAMMETRIC STEREO COMPILER * Telephone Encounter - Barbi Manzo RN - 07/21/2022 11:02 AM PHOTOGRAMMETRIC STEREO COMPILER Trina Carbajal PA-C- See mychart. Patient requesting medication for nausea. Patient reports she is out of metoclopramide and ondansetron. RN Pended. -Patient reports experiencing symptoms consistent with previous UTIs. -Per Henrietta patient is experiencing sick to stomach feeling/nausea. Spoke to patient who reports pain in lower stomach in the middle, where it has always been. Symptoms are consistent with previousUTI's. Rates pain 5/10, does not radiate to any other areas. Denies blood in urine, foul smelling urine, fever. Patient reports she has experiencing chills and then warmth. -Patient has standing order for UA, scheduled patient for lab only today. See result Barbi Asher RN, BSN, PHN - PAL (patient advocate liaison) [facility] OGRAMMETRIC STEREO COMPILER * Telephone Encounter - Barbi Manzo RN - 07/21/2022 10:26 AM PHOTOGRAMMETRIC STEREO COMPILER See mychart. Will monitor for response. Barbi Asher RN, BSN, PHN - PAL (patient advocate liaison) [facility] OGRAMMETRIC STEREO COMPILER documented in this encounter Plan of Treatment Upcoming Encounters Date Type Department Care Team (Late st Contact Info) Description 11/16/2024 1:00 PM CDT Allied Health/Nurse Visit [facility] [address] [place] [address] Lucero Britt PA-C 500 [place] [address] 11/16/2024 2:45 PM CDT Office Visit [facility] [address] [address] Vivien Blanchard MD 420 [facility] 394 [place] [address] 11/20/2024 3:30 PM CDT Office Visit [address] [address] [place] [id number] [place] [address] 11/22/2024 9:15 AM CDT Office Visit [facility] [address] [facility] [address] [place] [address] Federico Linda MD 5431 [facility] [address] [place], [place] [address] 11/30/2024 10:30 AM CDT Lab [facility] [address] [place] [phone] 12/06/2024 10:10 AM CDT Office Visit [facility] 6525 [facility] 200 [place] [phone] Virgie Lobato PA-C [address] [place] [address] 12/28/2024 11:00 AM CDT Office Visit [facility] [address] [phone] Barry Ybarra MD [address] [place] [address] 01/26/2025 11:30 AM CDT Office Visit [address] [phone] [place] [phone] [place] [address] documented as of this encounter Goals Goal Patient Goal Type Associated Problems Recent Progress Patient-Stated? Author Problem Solving General On track( 019 9:24 AM PHOTOGRAMMETRIC STEREO COMPILER) Yes Sheryl Stringer RD Note: My Goal: I will reduce risk of low blood sugars over-night What I need to meet my goal: follow instructions for taking Novolog before meals only I plan to meet my goal by this date: 1 week documented as of this encounter Visit Diagnoses Diagnosis Nausea- Primary Nausea alone Anxiety Anxiety state, unspecified documented in this encounter Additional Health Concerns Infection Onset Date Last Indicated Resolved Time Rule Out COVID-19 04/01/2024 04/01/2024 04/01/2024 10:07 PM CDT ESBL 07/05/2024 08/24/2024 Rule Out COVID-19 07/16/2024 07/16/2024 07/16/2024 11:04 PM PHOTOGRAMMETRIC STEREO COMPILER Rule Out COVID-19 09/01/2024 09/01/2024 09/01/2024 2:05 AM CDT Rule Out COVID-19 09/21/2024 09/21/2024 09/21/2024 3:25 PM CDT Assessment Noted Time PHQ-9 Depression Total Score: 4 06/19/19 23 11:34 AM PHOTOGRAMMETRIC STEREO COMPILER documented as of this encounter Care Teams Road Cleaner Relationship Specialty Start Date End Date Trina Carbajal PA-C [address] [place] [address] PCP - General Family Medicine 05/19/20 04/10/24 [place] [address] [place] [address] PCP - General Family Medicine 04/11/[address] [place] [address] Guest Service Agent Dietitian, Registered 11/03/17 Federico Linda MD [address] [place] [address] Assigned Heart and Vascular Provider 03/29/20 Carlos Livingston MD NO INFO AVAILABLE Assigned Endocrinology Provider 12/20/20 12/18/22 Trina Carbajal PA-C [address] [place] [address] Assigned PCP 12/20/20 04/28/24 Jc Zavala MD [facility] [address] [place] [address] Hematology & Oncology 08/07/21 Barbi Manzo, RN Personal Advocate & Liaison (PAL) Family Medicine 12/24/21 07/08/23 [place] [address] [place] [address] [place] [address] Assigned Musculoskeletal Provider 04/04/22 08/19/23 Cristofer Michelle MD [address] [place] [address] [id number] Gastroenterology 07/28/22 Vivien Blanchard MD [address] [place] [address] 265245 Urology 07/28/22 Sapna Hernandez MD [address] [place] [address] Assigned Nephrology Provider 07/11/22 09/25/22 Vivien Blanchard MD [address] [place] [address] 827845 Assigned Surgical Provider 07/25/22 06/30/23 Virgie Lobato PA-C [address] [place] [address] Assigned Nephrology Provider 09/26/22 03/28/24 Teetee Velazquez PA-C [address] [place] [address] Physician Marine Diver 05/11/23 Teetee Velazquez, PA-C [address] [place], [place] 8[address] Assigned Surgical Provider 07/01/23 Cora Shah, JERRY Personal Advocate & Liaison (PAL) Nurse 07/09/23 09/29/23 [place] [address] [address] 981107 Assigned Musculoskeletal Provider 08/20/23 Cristal Cooper RN Lead Strategy Execution Consultant Primary Care - CC 04/27/2404/08 Shannon Rowland PA-C [address] [place] [phone] Assigned PCP 04/29/24 05/28/24 Lanie Foster, RD, LD [address] [place] [id number] Registered Dietitian Nutrition 05/15/24 [place] [address] [place] [address] Assigned PCP 05/29/24 Melonie Caro [facility] [address] [place] [address] Pharmacist Pharmacist 06/05/24 Federico Linda MD [address] [place] [address] Cardiovascular Disease 06/13/24 Melonie Caro [facility] [address] [place] [address] Assigned MTM Pharmacist 06/29/24 Virgie Lobato, PAAnthonyC [address] [place] [address] Assigned Nephrology Provider 07/30/24 Barry Ybarra MD [address] [place] [address] Hospitalist Infectious Diseases 08/31/24 Barry Ybarra MD [address] [place] [address] Assigned Infectious Disease Provider 10/27/24 documented as of this encounter
--- OUTSIDE RECORDS SUMMARY | 2024-11-12 17:30 | XMS_ITS | Encounter Summary ---
Author Organization [place] Address [address] [place] [address] Care Team Providers Care Electrical Checkout Mechanic Name Role Phone Sheryl Stringer Kirk BENITEZ Unavailable [phone] Federico Linda MD Unavailable [phone] Trina Carbajal PA-C Primary Care Provider + [phone] Connie Blackwell MD Unavailable [phone] Ruth Ann Munoz MD Unavailable + Carlos Livingston MD Unavailable Jelena vailable Trina Carbajal PA-C Unavailable [phone] Carlos Livingston MD Unavailable Jelena vailable Carlos Livingston MD Unavailable Jelena vailable Trina Carbajal PA-C Unavailable [phone] Mari Funes RN Unavailable Unavailable Jc Zavala MD Unavailable [phone] Barbi Manzo RN Unavailable Unavailable Erasto Root MD Unavailable Cristofer Michelle MD Unavailable [phone] Vivien Blanchard MD Unavailable [phone] Sapna Hernandez MD Unavailable Vivien Blanchard MD Unavailable [phone] Virgie LobatoC Unavailable [phone] Teetee Velazquez-C Unavailable [phone] Teetee Velazquez-C Unavailable [phone] Cora Shah RN Unavailable Brad Mayer DO Unavailable [phone] Mary Garcia MD Primary Care Provider Cristal Cooper RN Unavailable Shannon Rowlnad-C Unavailable [phone], LD Unavailabl e Mary Garcia MD Unavailable Melonie Caro [facility] Unavailable Federico Linda MD Unavailable Melonie Caro [facility] Unavailable Virgie viramontes PA-C Unavailable [phone] Barry Ybarra MD Unavailable [phone] Barry Ybarra MD Unavailable +[phone] Encounter Details Date Type Department Care Team (Late st Contact Info) Description 08/14/2020 [facility] [address] [place] [phone] Kika Swann Social History Tobacco Use Types Packs/Day Years Used Date Smoking Tobacco: Never Smokeless Tobacco: Never Alcohol Use Standard Drinks/Week Comments No 0 (1 standard drink = 0.6 oz pur e alcohol) PHQ-2 Answer Date Recorded PHQ-2 Score 0 08/17/2020 Comments No Sex and Gender Information Value Date Recorded Sex Assigned at Female 07/18/2020 1:16 PM BRAZER CRAWLER TORCH Legal Sex Female 3:23 AM BRAZER CRAWLER TORCH Gender Identity Female 07/18/2020 1:16 PM BRAZER CRAWLER TORCH Sexual Orientation Straight 07/18/2020 1: 16 PM BRAZER CRAWLER TORCH 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 Unable to assess 08/14/2020 7:53 AM BRAZER CRAWLER TORCH documented as of this encounter Plan of Treatment Upcoming Encounters Date Type Department Care Team (Late st Contact Info) Description 11/16/2024 1:00 PM CDT Allied Health/Nurse Visit [facility] Urology [address] [phone] Lucero Britt PA-C 500 [place], [place] 4[address] 11/16/2024 2:45 PM CDT Office Visit [facility] Urology [address] [phone] Vivien Blanchard MD 420 [facility] 394 [place], [place] [address] 11/20/2024 3:30 PM CDT Office Visit [facility] [address] [place] [address] [place] [phone] [place] [address] [phone] 11/22/2024 9:15 AM CDT Office Visit [facility] Heart [address] [place] [address] Federico Linda MD [address] [facility] [address] [place] [address] 11/30/2024 10:30 AM CDT Lab [facility] [address] [place] [phone] 12/06/2024 10:10 AM CDT Office Visit [facility] 6525 [facility] 200 [place] [phone] Virgie Lobato, PA-C 909 [place] [address] 12/28/2024 11:00 AM CDT Office Visit [facility] [address] [phone] [place] [address] [place] [address] 01/26/2025 11:30 AM CDT Office Visit [facility] [address] [place] [phone] [place] [address] [place] [address] documented as of this encounter Goals Goal Patient Goal Type Associated Problems Recent Progress Patient-Stated? Author Problem Solving General On track( 019 9:24 AM BRAZER CRAWLER TORCH) Yes Sheryl Stringer RD Note: My Goal: [...] Out COVID-19 2021 2021 04/25/2021 12:41 PM BRAZER CRAWLER TORCH Rule Out COVID-19 06/14/2022 06/14/2022 06/14/2022 11:30 AM BRAZER CRAWLER TORCH Rule Out COVID-19 07/03/2022 07/03/2022 07/04/2022 12:27 AM BRAZER CRAWLER TORCH Rule Out COVID-19 04/01/2024 04/01/2024 04/01/2024 10:07 PM CDT ESBL 07/05/2024 08/24/2024 Rule Out COVID-19 07/16/2024 07/16/2024 07/16/2024 11:04 PM BRAZER CRAWLER TORCH Rule Out COVID-19 09/01/2024 09/01/2024 09/01/2024 2:05 AM CDT Rule Out COVID-19 09/21/2024 09/21/2024 09/21/2024 3:25 PM CDT Assessment Noted Time PHQ-9 Depression Total Score: 6 07/28/19 20 7:04 AM BRAZER CRAWLER TORCH documented as of this encounter Care Teams Electrical Checkout Mechanic Relationship Specialty Start Date End Date Trina Carbajal PAAnthonyC [address] [facility] [address] [place] [address] PCP - General Family Medicine 05/19/20 04/10/24 [place] [address] [place] [address] PCP - General Family Medicine 04/11/[address] [facility] MICHELLE [facility] [place] [address] Online Journalist Dietitian, Registered 11/03/17 Federico Linda MD [address] [place] [address] Assigned Heart and Vascular Provider 03/29/20 Connie Blackwell MD [address] [place] [address] Assigned Endocrinology Provider 07/14/20 12/19/20 Ruth Ann Munoz MD ARISE [address]447 [facility] [address] [place] [address] Assigned PCP 07/28/20 08/25/20 Carlos Livingston MD NO INFO AVAILABLE Assigned PCP 08/26/20 08/31/20 Trina Carbajal PA-C [address] [place] [address] Assigned PCP 09/01/20 12/07/20 Carlos Livingston MD NO INFO AVAILABLE Assigned Endocrinology Provider 12/20/20 12/18/22 Carlos Livingston MD NO INFO AVAILABLE Assigned PCP 12/08/20 12/19/20 Trina Carbajal PA-C [address] [place] [address] Assigned PCP 12/20/20 04/28/24 Mari Funes, JERRY Personal Advocate & Liaison (PAL) Nurse 01/24/21 06/12/21 Jc Zavala MD [facility] [address] [place] [address] Hematology & Oncology 08/07/21 Barbi Manzo, RN Personal Advocate & Liaison (PAL) Family Medicine 12/24/21 07/08/23 [place] [address] [place] [address] [address] Assigned Musculoskeletal Provider 04/04/22 08/19/23 Cristofer Michelle MD [address] [place] [address] [phone] Gastroenterology 07/28/22 Vivien Blanchard MD [address] [phone] Urology 07/28/22 Sapna Hernandez MD [address] 174875 Assigned Nephrology Provider 07/11/22 09/25/22 Vivien Blanchard MD [address] [place] [address] 280015 Assigned Surgical Provider 07/25/22 06/30/23 Virgie Lobato PA-C 909 [place], [place] [phone] Assigned Nephrology Provider 09/26/22 03/28/24 Teetee Velazquez PA-C [address] [place], [place] 290765 Physician Custom Grinder 05/11/23 Teetee Velazquez PA-C [address] [place] [address] Assigned Surgical Provider 07/01/23 Cora Shah, JERRY Personal Advocate & Liaison (PAL) Nurse 07/09/23 09/29/23 [place] [address] [facility] 300 [place], [place] 761847 Assigned Musculoskeletal Provider 08/20/23 Cristal Cooper RN Lead Quartz Mounter Primary Care - CC 04/27/2404/08 Shannon Rowland PA-C [address] [place] [phone] Assigned PCP 04/29/24 05/28/24 Lanie Foster, RD, LD [address] [place] [place] [id number] Registered Dietitian Nutrition 05/15/24 [place] [address] [place] [address] Assigned PCP 05/29/24 Melonie Caro [facility] [address] [place], [place] [phone] Pharmacist Pharmacist 06/05/24 Federico Linda MD [address] [facility] [address] [place] 368435 Cardiovascular Disease 06/13/24 Melonie Caro [facility] [address] [place], [place] 8158[address] Assigned MTM Pharmacist 06/29/24 Virgie Lobato, PAAnthonyC [address] [place] [address] [phone] Assigned Nephrology Provider 07/30/24 Barry Ybarra MD [address] [place] [address] [phone] Hospitalist Infectious Diseases 08/31/24 Barry Ybarra MD [address] [place] [address] [phone] Assigned Infectious Disease Provider 10/27/24 documented as of this encounter
--- OUTSIDE RECORDS SUMMARY | 2024-11-12 17:30 | XMS_ITS | Encounter Summary ---
Author Organization [place] Address [address] [place] [address] Care Team Providers Care Abalone Diver Name Role Phone Sheryl Stringer Kirk BENITEZ Unavailable [phone] Federico Linda MD Unavailable [phone] Trina Carbajal PA-C Primary Care Provider + [phone] Connie Blackwell MD Unavailable [phone] Ruth Ann Munoz MD Unavailable + Carlos Livingston MD Unavailable Jelena vailable Trina Carbajal PA-C Unavailable [phone] Carlos Livingston MD Unavailable Jelena vailable Carlos Livingston MD Unavailable Jelena vailable Trina Carbajal PA-C Unavailable [phone] Mari Funes RN Unavailable Unavailable Jc Zavala MD Unavailable [phone] Barbi Manzo RN Unavailable Unavailable Erasto Root MD Unavailable Cristofer Michelle MD Unavailable [phone] Vivien Blanchard MD Unavailable [phone] Sapna Hernandez MD Unavailable Vivien Blanchard MD Unavailable [phone] Virgie LobatoC Unavailable [phone] Teetee Velazquez-C Unavailable [phone] Teetee Velazquez-C Unavailable [phone] Cora Shah RN Unavailable Brad Mayer DO Unavailable [phone] Mary Garcia MD Primary Care Provider Cristal Cooper RN Unavailable Shannon Rowland-C Unavailable [phone], LD Unavailabl e Mary Garcia MD Unavailable Melonie Caro [facility] Unavailable Federico Linda MD Unavailable Melonie Caro [facility] Unavailable Virgie viramontes PA-C Unavailable [phone] Barry Ybarra MD Unavailable [phone] Barry Ybarra MD Unavailable [phone] Encounter Details Date Type Department Care Team (Late st Contact Info) Description 08/13/2020 [facility] [address] [place] [address] Kika Swann Social History Tobacco Use Types Packs/Day Years Used Date Smoking Tobacco: Never Smokeless Tobacco: Never Alcohol Use Standard Drinks/Week Comments No 0 (1 standard drink = 0.6 oz pur e alcohol) PHQ-2 Answer Date Recorded PHQ-2 Score 0 08/17/2020 Comments No Sex and Gender Information Value Date Recorded Sex Assigned at Female 07/18/2020 1:16 PM MARKETING WRITER Legal Sex Female 3:23 AM MARKETING WRITER Gender Identity Female 07/18/2020 1:16 PM MARKETING WRITER Sexual Orientation Straight 07/18/2020 1: 16 PM MARKETING WRITER 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 Unable to assess 08/14/2020 7:53 AM MARKETING WRITER documented as of this encounter Plan of Treatment Upcoming Encounters Date Type Department Care Team (Late st Contact Info) Description 11/16/2024 1:00 PM CDT Allied Health/Nurse Visit [facility] Urology [address] [phone] Lucero Britt PA-C 500 [place], [place] 9[address] 11/16/2024 2:45 PM CDT Office Visit [facility] Urology [address] [phone] Vivien Blanchard MD 420 [facility] 394 [place], [place] 0085[address] 11/20/2024 3:30 PM CDT Office Visit [facility] [address] [place] [address] [place] [id number] [place] [address] [phone] 11/22/2024 9:15 AM CDT Office Visit [facility] Heart [address] [place] [address] Federico Linda MD 6405 [facility] [address] [place] [address] 11/30/2024 10:30 AM CDT Lab [facility] [address] [place] [address]-787383 12/06/2024 10:10 AM CDT Office Visit [facility] 6525 [facility] 200 [place] [phone] Virgie Lobato, PA-C 909 [place] [address] 12/28/2024 11:00 AM CDT Office Visit [facility] [address] [phone] [place] [address] [place] [address] 01/26/2025 11:30 AM CDT Office Visit [facility] [address] [place] [phone] [place] [address] [place] [address] documented as of this encounter Goals Goal Patient Goal Type Associated Problems Recent Progress Patient-Stated? Author Problem Solving General On track( 019 9:24 AM MARKETING WRITER) Yes Sheryl Stringer RD Note: My Goal: [...] Out COVID-19 2021 2021 04/25/2021 12:41 PM MARKETING WRITER Rule Out COVID-19 06/14/2022 06/14/2022 06/14/2022 11:30 AM MARKETING WRITER Rule Out COVID-19 07/03/2022 07/03/2022 07/04/2022 12:27 AM MARKETING WRITER Rule Out COVID-19 04/01/2024 04/01/2024 04/01/2024 10:07 PM CDT ESBL 07/05/2024 08/24/2024 Rule Out COVID-19 07/16/2024 07/16/2024 07/16/2024 11:04 PM MARKETING WRITER Rule Out COVID-19 09/01/2024 09/01/2024 09/01/2024 2:05 AM CDT Rule Out COVID-19 09/21/2024 09/21/2024 09/21/2024 3:25 PM CDT Assessment Noted Time PHQ-9 Depression Total Score: 6 07/28/19 20 7:04 AM MARKETING WRITER documented as of this encounter Care Teams Abalone Diver Relationship Specialty Start Date End Date Trina Carbajal PAAnthonyC [address] [facility] [address] [place] [address] PCP - General Family Medicine 05/19/20 04/10/24 [place] [address] [place] [address] PCP - General Family Medicine 04/11/[address] [facility] MICHELLE [facility] [address] [address] New Accounts Banking Representative Dietitian, Registered 11/03/17 Federico Linda MD [address] [place] [address] Assigned Heart and Vascular Provider 03/29/20 Connie Blackwell MD [address] [place] [address] Assigned Endocrinology Provider 07/14/20 12/19/20 Ruth Ann Munoz MD ARISE [address] [facility] [address] [place] [address] Assigned PCP 07/28/20 08/25/20 Carlos Livingston MD NO INFO AVAILABLE Assigned PCP 08/26/20 08/31/20 Trina Carbajal PA-C [address] [place] [address] Assigned PCP 09/01/20 12/07/20 Carlos Livingston MD NO INFO AVAILABLE Assigned Endocrinology Provider 12/20/20 12/18/22 Carlos Livingston MD NO INFO AVAILABLE Assigned PCP 12/08/20 12/19/20 Trina Carbajal PA-C [address] [place] [address] Assigned PCP 12/20/20 04/28/24 Mari Funes, JERRY Personal Advocate & Liaison (PAL) Nurse 01/24/21 06/12/21 Jc Zavala MD [facility] [address] [place] [address] Hematology & Oncology 08/07/21 Barbi Manzo, RN Personal Advocate & Liaison (PAL) Family Medicine 12/24/21 07/08/23 [place] [address] [place] [address] [address] Assigned Musculoskeletal Provider 04/04/22 08/19/23 Cristofer Michelle MD [address] [place] [address] 149845 Gastroenterology 07/28/22 Vivien Blanchard MD [address] 235215 Urology 07/28/22 Sapna Hernandez MD [address] 759255 Assigned Nephrology Provider 07/11/22 09/25/22 Vivien Blanchard MD [address] [place] [address] 678765 Assigned Surgical Provider 07/25/22 06/30/23 Virgie Lobato PA-C 909 [place], [place] [phone] Assigned Nephrology Provider 09/26/22 03/28/24 Teetee Velazquez PA-C 9[address] [place], [place] 715315 Physician Cnc Grinder 05/11/23 Teetee Velazquez PA-C 9[address] [place] [address] Assigned Surgical Provider 07/01/23 Cora Shah, JERRY Personal Advocate & Liaison (PAL) Nurse 07/09/23 09/29/23 [place] [address] [facility] 300 [place], [place] 374697 Assigned Musculoskeletal Provider 08/20/23 Cristal Cooper RN Lead Fire Supervisor Primary Care - CC 04/27/2404/08 Shannon Rowland PA-C [address] [place] [phone] Assigned PCP 04/29/24 05/28/24 Lanie Foster, RD, LD [address] [place] [id number] Registered Dietitian Nutrition 05/15/24 [place] [address] [place] [address] Assigned PCP 05/29/24 Melonie Caro [facility] [address] [place], [place] [phone] Pharmacist Pharmacist 06/05/24 Federico Linda MD [address] [facility] [address] [place] [address] Cardiovascular Disease 06/13/24 Melonie Caro RPH [address] [place], [place] 147537 Assigned MTM Pharmacist 06/29/24 Virgie Lobato, PAAnthonyC [address] [place] [address] 533105 Assigned Nephrology Provider 07/30/24 Barry Ybarra MD [address] [place] [address] [phone] Hospitalist Infectious Diseases 08/31/24 Barry Ybarra MD [address] [place] [address] [phone] Assigned Infectious Disease Provider 10/27/24 documented as of this encounter
--- OUTSIDE RECORDS SUMMARY | 2024-11-12 17:30 | XMS_ITS | Encounter Summary ---
Author Organization [facility] Address [address] [place] [address] Care Team Providers Care Emts Name Role Phone Sheryl Stringer Kirk BENITEZ Unavailable [phone] Federico Linda MD Unavailable [phone] Trina Carbajal PA-C Primary Care Provider + [phone] Connie Blackwell MD Unavailable [phone] Ruth Ann Munoz MD Unavailable + Carlos Livingston MD Unavailable Jelena vailable Trina Carbajal PA-C Unavailable [phone] Carlos Livingston MD Unavailable Jelena vailable Carlos Livingston MD Unavailable Jelena vailable Trina Carbajal PA-C Unavailable [phone] Mari Funes RN Unavailable Unavailable Jc Zavala MD Unavailable [phone] Barbi Manzo RN Unavailable Unavailable Erasto Root MD Unavailable Cristofer Michelle MD Unavailable [phone] Vivien Blanchard MD Unavailable [phone] Sapna Hernandez MD Unavailable Vivien Blanchard MD Unavailable [phone] Virgie LobatoC Unavailable [phone] Teetee Velazquez-C Unavailable [phone] Teetee Velazquez PA-C Unavailable [phone] Cora Shah RN Unavailable Brad Mayer DO Unavailable [phone] Mary Garcia MD Primary Care Provider Cristal Cooper RN Unavailable Shannon Rowland PA-C Unavailable [phone], LD Unavailabl e Mary Garcia MD Unavailable Melonie Caro [facility] Unavailable Federico Linda MD Unavailable Melonie Caro [facility] Unavailable Virgie viramontes PA-C Unavailable [phone] Barry Ybarra MD Unavailable [phone] Barry Ybarra MD Unavailable [phone] Encounter Details Date Type Department Care Team (Late st Contact Info) Description 08/24/2020 [facility] [address] [place] [phone] Carlos Livingston MD NO INFO AVAILABLE Social History Tobacco Use Types Packs/Day Years Used Date Smoking Tobacco: Never Smokeless Tobacco: Never Alcohol Use Standard Drinks/Week Comments No 0 (1 standard drink = 0.6 oz pur e alcohol) PHQ-2 Answer Date Recorded PHQ-2 Score 0 08/23/2020 Comments No Sex and Gender Information Value Date Recorded Sex Assigned at Female 07/18/2020 1:16 PM CYCLE ANALYST Legal Sex Female 3:23 AM CYCLE ANALYST Gender Identity Female 07/18/2020 1:16 PM CYCLE ANALYST Sexual Orientation Straight 07/18/2020 1: 16 PM CYCLE ANALYST 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 No / Unsure 08/23/2020 8:18 AM CDT documented as of this encounter Plan of Treatment Upcoming Encounters Date Type Department Care Team (Late st Contact Info) Description 11/16/2024 1:00 PM CDT Allied Health/Nurse Visit [facility] Urology [address] [phone] Lucero Britt PA-C 500 [place], [place] [address] 11/16/2024 2:45 PM CDT Office Visit [facility] Urology [address] [phone] Vivien Blanchard MD 420 [facility] 394 [place], [place] [phone] 11/20/2024 3:30 PM CDT Office Visit [address] [phone] Mary Garcia MD [address] [place] [address] 11/22/2024 9:15 AM CDT Office Visit [facility] Heart [address] [place] [address] Federico Linda MD 6405 [facility] [address] [place] [address] 11/30/2024 10:30 AM CDT Lab [facility] [address] [place] [address] 12/06/2024 10:10 AM CDT Office Visit [facility] 6525 [facility] [address] [place] [phone] Virgie Lobato, PA-C [address] [place] [address] 12/28/2024 11:00 AM CDT Office Visit [facility] [address] [phone] Barry Ybarra MD 2945 [facility] 200 [place] [address] 01/26/2025 11:30 AM CDT Office Visit [facility] 132[address] [place] [address] [place] [address] [place] [address] documented as of this encounter Goals Goal Patient Goal Type Associated Problems Recent Progress Patient-Stated? Author Problem Solving General On track( 019 9:24 AM CYCLE ANALYST) Yes Sheryl Stringer, ELI Note: My Goal: [...] Out COVID-19 2021 2021 04/25/2021 12:41 PM CYCLE ANALYST Rule Out COVID-19 06/14/2022 06/14/2022 06/14/2022 11:30 AM CYCLE ANALYST Rule Out COVID-19 07/03/2022 07/03/2022 07/04/2022 12:27 AM CYCLE ANALYST Rule Out COVID-19 04/01/2024 04/01/2024 04/01/2024 10:07 PM CDT ESBL 07/05/2024 08/24/2024 Rule Out COVID-19 07/16/2024 07/16/2024 07/16/2024 11:04 PM CYCLE ANALYST Rule Out COVID-19 09/01/2024 09/01/2024 09/01/2024 2:05 AM CDT Rule Out COVID-19 09/21/2024 09/21/2024 09/21/2024 3:25 PM CDT Assessment Noted Time PHQ-9 Depression Total Score: 6 08/25/19 21 7:03 AM CDT documented as of this encounter Care Teams Emts Relationship Specialty Start Date End Date Trina Carbajal PA-C [address] [facility] [address] [place] [address] PCP - General Family Medicine 05/19/20 04/10/24 [place] [address] [place] [address] PCP - General Family Medicine 04/11/[address] [place] [address] Transplanter Orchid Dietitian, Registered 11/03/17 Federico Linda MD [address] [place] [address] Assigned Heart and Vascular Provider 03/29/20 Connie Blackwell MD [address] [place], [place] [address] Assigned Endocrinology Provider 07/14/20 12/19/20 Ruth Ann Munoz MD ARISE 7447 [facility] [address] [place] [address] Assigned PCP 07/28/20 08/25/20 Carlos Livingston MD NO INFO AVAILABLE Assigned PCP 08/26/20 08/31/20 Trina Carbajal PA-C [address] [place] [address] Assigned PCP 09/01/20 12/07/20 Carlos Livingston MD NO INFO AVAILABLE Assigned Endocrinology Provider 12/20/20 12/18/22 Carlos Livingston MD NO INFO AVAILABLE Assigned PCP 12/08/20 12/19/20 Trina Carbajal PA-C [address] [place] [address] Assigned PCP 12/20/20 04/28/24 Mari Funes, JERRY Personal Advocate & Liaison (PAL) Nurse 01/24/21 06/12/21 Jc Zavala MD [facility] [address] 100 [place] [address] Hematology & Oncology 08/07/21 Barbi Manzo, RN Personal Advocate & Liaison (PAL) Family Medicine 12/24/21 07/08/23 [place] [address] [place] [address] Assigned Musculoskeletal Provider 04/04/22 08/19/23 Cristofer Michelle MD [address] [place] [address] [phone] Gastroenterology 07/28/22 Vivien Blanchard MD [address] [place] [address] 298395 Urology 07/28/22 Sapna Hernandez MD [address] 885925 Assigned Nephrology Provider 07/11/22 09/25/22 Vivien Blanchard MD [address] [place] [address] 436075 Assigned Surgical Provider 07/25/22 06/30/23 Virgie Lobato PA-C 9 [place], [place] 367745 Assigned Nephrology Provider 09/26/22 03/28/24 Teetee Velazquez PA-C 909 [place], [place] 513925 Physician Data Integrity Specialist 05/11/23 Teetee Velazquez PAAnthonyC 909 [place], [place] 428615 Assigned Surgical Provider 07/01/23 Cora Shah, JERRY Personal Advocate & Liaison (PAL) Nurse 07/09/23 09/29/23 [place] [address] [facility] [address] [phone] Assigned Musculoskeletal Provider 08/20/23 Cristal Cooper RN Lead Student Life Vice President Primary Care - CC 04/27/2404/08 Shannon Rowland PA-C [address] [place] [address] Assigned PCP 04/29/24 05/28/24 Lanie Foster, RD, LD [address] [place] 733895 Registered Dietitian Nutrition 05/15/24 [place] [address] [place] [address] Assigned PCP 05/29/24 Melonie Caro RPH [address] [place] [address] Pharmacist Pharmacist 06/05/24 Federico Linda MD [address] [facility] [address] [place] [address] Cardiovascular Disease 06/13/24 Melonie Caro [facility] [address] [place] [address] Assigned MTM Pharmacist 06/29/24 Virgie Lobato, PAAnthonyC [address] [place] [address] Assigned Nephrology Provider 07/30/24 Barry Ybarra MD [address] [place] [address] Hospitalist Infectious Diseases 08/31/24 Barry Ybarra MD [address] [place] [address] Assigned Infectious Disease Provider 10/27/24 documented as of this encounter
--- OUTSIDE RECORDS SUMMARY | 2024-11-12 17:30 | XMS_ITS | Encounter Summary ---
Author Organization [facility] Address [address] [place] [address] Care Team Providers Care Jailer Name Role Phone Sheryl Stringer RD Unavailable [phone] Federico Linda MD Unavailable [phone] Jc Zavala MD Unavailable [phone] Cristofer Michelle MD Unavailable [phone] Vivien Blanchard MD Unavailable [phone] Teetee Velazquez-Javi Unavailable Teetee Velazquez PA-C Unavailable Brad Mayer DO Unavailable [phone] Mary Garcia MD Primary Care Provider Lanie Foster RD, LD Unavailabl e Mary Garcia MD Unavailable Melonie Caro [facility] Unavailable Federico Linda MD Unavailable [phone] VaniaMelonie duarte [facility] Unavailable [phone] Virgie Lobato PA-C Unavailable [phone] Barry Ybarra MD Unavailable [phone] Barry Ybarra MD Unavailable [phone] Encounter Details Date Type Department Care Team (Late st Contact Info) Description 07/11/2024 [facility] Medical Advice [address] [address] Pamela Reyez CMA Social History Tobacco Use Types Packs/Day [...] you got money to buy more? No 04/29/2024 Within the past 12 months, d id the food you bought just not last and you didn t have money to get more? No 04/29/2024 Housing Stability Answer Date Recorded Do you have housing? (Housin g is defined as stable permanent housing and does not include staying outside in a car, in a tent, in an abandoned building, in an overnight senior care, or couch-surfing.) Yes 04/29/2024 Are you worried about losing your housing? No 04/29/2024 Financial Resource Strain Answer Date R ecorded Within the past 12 months, h ave you or your family members you live with been unable to get utilities (heat, electricity) when it was really needed? No 04/29/2024 Transportation Needs Answer Date Record ed Within the past 12 months, h as lack of transportation kept you from medical appointments, getting your medicines, non-medical meetings or appointments, work, or from getting things that you need? No 04/29/2024 Interpersonal Safety Answer Date Record ed Do you feel physically and e motionally safe where you currently live? Yes 04/29/2024 Within the past 12 months, h ave you been hit, slapped, kicked or otherwise physically hurt by someone? No 04/29/2024 Within the past 12 months, h ave you been humiliated or emotionally abused in other ways by your partner or ex-partner? 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 Not on file documented as of this encounter Plan of Treatment Upcoming Encounters Date Type Department Care Team (Late st Contact Info) Description 11/16/2024 1:00 PM CDT Allied Health/Nurse Visit [facility] Urology [address] [address] Lucero Britt PA-C 500 [place], [place] [phone] 11/16/2024 2:45 PM CDT Office Visit [facility] [address] [address] Vivien Blanchard MD [address] [phone] 11/20/2024 3:30 PM CDT Office Visit [address] [address] [place] [address] [place] [address] 11/22/2024 9:15 AM CDT Office Visit [facility] Heart [facility] 87808 [facility] 140 [place] [phone] Federico Linda MD 6405 [facility] [address] [place] [address] 11/30/2024 10:30 AM CDT Lab [facility] [address] [place] [phone] 12/06/2024 10:10 AM CDT Office Visit [facility] 6525 [facility] 200 [place] [address] Virgie Lobato, PA-C [address] [place] [address] 12/28/2024 11:00 AM CDT Office Visit [facility] 2945 [facility] 200 [place] [address]12[address] Barry Ybarra MD [address] [address] 01/26/2025 11:30 AM CDT Office Visit [facility] [address] [place] [address] [place] [address] [place] [address] documented as of this encounter Goals Goal Patient Goal Type Associated Problems Recent Progress Patient-Stated? Author Problem Solving General On track( 019 9:24 AM PATIENT CENTERED CARE SPECIALIST) Yes Sheryl Stringer RD Note: My [...] Time ESBL 07/05/2024 08/24/2024 Rule Out COVID-19 07/16/2024 07/16/2024 07/16/2024 11:04 PM PATIENT CENTERED CARE SPECIALIST Rule Out COVID-19 09/01/2024 09/01/2024 09/01/2024 2:05 AM CDT Rule Out COVID-19 09/21/2024 09/21/2024 09/21/2024 3:25 PM CDT Assessment Noted Time PHQ-9 Depression Total Score: 3 05/02/20 24 1:39 PM PATIENT CENTERED CARE SPECIALIST documented as of this encounter Care Teams Jailer Relationship Specialty [place] [address] [place] [address] PCP - General Family Medicine 04/11/[address] [place] [phone] Guest Relations Manager Dietitian, Registered 11/03/17 Federico Linda MD 6405 [facility] [address] [place], [place] 9932[address] Assigned Heart and Vascular Provider 03/29/20 Jc Zavala MD [facility] [address] 100 [place], [place] [address] Hematology & Oncology 08/07/21 Cristofer Michelle MD [address] [place], [place] [address] [address] [place] [address] Gastroenterology 07/28/22 Vivien Blanchard MD [address] [place] [address] 394 [place], [place] [address] Urology 07/28/22 Teetee Velazquez PA-C [address] [place] [address] Physician Torch Brazer 05/11/23 Teetee Velazquez PA-C [address] [place] [address] 344415 Assigned Surgical Provider 07/01/23 [place] [address] [place] , [facility] 300 [place], [place] 261307 Assigned Musculoskeletal Provider 08/20/23 Lanie Foster, RD, LD [address] [place] 351235 Registered Dietitian Nutrition 05/15/24 [place] [address] [place] [address] Assigned PCP 05/29/24 Melonie Caro [facility] [address] [place], [place] 733267 Pharmacist Pharmacist 06/05/24 Federico Linda MD [address] [facility] [address] [place] 907205 Cardiovascular Disease 06/13/24 Melonie Caro [facility] [address] [place] [address] Assigned MTM Pharmacist 06/29/24 Virgie Lobato PA-C [address] [place] [address] Assigned Nephrology Provider 07/30/24 Barry Ybarra MD [address] [place] [address] Hospitalist Infectious Diseases 08/31/24 Barry Ybarra MD [address] [place] [address] Assigned Infectious Disease Provider 10/27/24 documented as of this encounter
--- OUTSIDE RECORDS SUMMARY | 2024-11-12 17:30 | XMS_ITS | Encounter Summary ---
Author Organization [facility] Address [address] [place] [address] Care Team Providers Care Lunchroom Worker Name Role Phone Sheryl Stringer Kirk BENITEZ Unavailable [phone] Federico Linda MD Unavailable [phone] Trina Carbajal-C Primary Care Provider Carlos Livingston MD Unavailable Jelena vailable Trina CarbajalC Unavailable [phone] Jc Zavala MD Unavailable [phone] Barbi Manzo RN Unavailable Unavailable Erasto Root MD Unavailable Cristofer Michelle MD Unavailable [phone] Vivien Blanchard MD Unavailable [phone] Sapna Hernandez MD Unavailable Vivien Blanchard MD Unavailable [phone] Virgie Lobato-C Unavailable [phone] Teetee Velazquez PA-C Unavailable Teetee Velazquez-Javi Unavailable [phone] Cora Shah RN Unavailable MorenoBrad Unavailable [phone] Mary Garcia MD Primary Care Provider Cristal Cooper RN Unavailable Shannon Rowland PA-C Unavailable [phone], LD Unavailabl e Mary Garcia MD Unavailable Melonie Caro [facility] Unavailable Federico Linda MD Unavailable Melonie Caro [facility] Unavailable Virgie Lobato PA-C Unavailable [phone] Barry Ybarra MD Unavailable [phone] Barry Ybarra MD Unavailable [phone] Encounter Details Date Type Department Care Team (Late st Contact Info) Description 07/02/2022 [facility] Specialty [address] [address] Sapna Hernandez MD [address] [place] [place] [address] Social History Tobacco Use Types Packs/Day Years Used Date Smoking Tobacco: Never Smokeless Tobacco: Never Alcohol Use Standard Drinks/Week Comments No 0 (1 standard drink = 0.6 oz pur e alcohol) PHQ-2 Answer Date Recorded PHQ-2 Score 1 06/19/2022 Comments No Sex and Gender Information Value Date Recorded Sex Assigned at Female 07/18/2020 1:16 PM INTELLIGENCE SPECIALIST Legal Sex Female 3:23 AM INTELLIGENCE SPECIALIST Gender Identity Female 07/18/2020 1:16 PM INTELLIGENCE SPECIALIST Sexual Orientation Straight 07/18/2020 1: 16 PM INTELLIGENCE SPECIALIST 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 No / Unsure 07/03/2022 9:33 PM INTELLIGENCE SPECIALIST documented as of this encounter Plan of Treatment Upcoming Encounters Date Type Department Care Team (Late st Contact Info) Description 11/16/2024 1:00 PM CDT Allied Health/Nurse Visit [facility] Urology [address] [place] [address] Lucero Britt PA-C 500 [place], [place] [phone] 11/16/2024 2:45 PM CDT Office Visit [facility] Urology [address] [phone] Vivien Blanchard MD 420 [facility] 394 [place], [place] [address] 11/20/2024 3:30 PM CDT Office Visit [address] [phone] Mary Garcia MD [address] [place] [address] 11/22/2024 9:15 AM CDT Office Visit [facility] Heart [facility] [address] [facility] [address] [place] [phone] Federico Linda MD 5[address] [facility] [address] [place], [place] [address] 11/30/2024 10:30 AM CDT Lab [facility] [address] [place] [address] 12/06/2024 10:10 AM CDT Office Visit [facility] [address] [phone] Virgie Lobato, PANilesh 9 [place] [address] 12/28/2024 11:00 AM CDT Office Visit [facility] [address] [place] [phone] Barry Ybarra MD [address] [place] [address] 01/26/2025 11:30 AM CDT Office Visit [facility] [address] [place] [address] [place] [address] [place] [address] documented as of this encounter Goals Goal Patient Goal Type Associated Problems Recent Progress Patient-Stated? Author Problem Solving General On track( 019 9:24 AM INTELLIGENCE SPECIALIST) Yes Sheryl Stringer RD Note: My [...] Last Indicated Resolved Time Rule Out COVID-19 07/03/2022 07/03/2022 07/04/2022 12:27 AM INTELLIGENCE SPECIALIST Rule Out COVID-19 04/01/2024 04/01/2024 04/01/2024 10:07 PM CDT ESBL 07/05/2024 08/24/2024 Rule Out COVID-19 07/16/2024 07/16/2024 07/16/2024 11:04 PM INTELLIGENCE SPECIALIST Rule Out COVID-19 09/01/2024 09/01/2024 09/01/2024 2:05 AM CDT Rule Out COVID-19 09/21/2024 09/21/2024 09/21/2024 3:25 PM CDT Assessment Noted Time PHQ-9 Depression Total Score: 4 06/19/19 23 11:34 AM INTELLIGENCE SPECIALIST documented as of this encounter Care Teams Lunchroom Worker Relationship Specialty Start Date End Date Trina Carbajal PA-C [address] [place] [address] PCP - General Family Medicine 05/19/20 04/10/24 [place] [address] [place] [address] PCP - General Family Medicine 04/11/[address] [place] [address] Test Facility Engineer Dietitian, Registered 11/03/17 Federico Linda MD [address] [place] [address] Assigned Heart and Vascular Provider 03/29/20 Carlos Livingston MD NO INFO AVAILABLE Assigned Endocrinology Provider 12/20/20 12/18/22 Trina Carbajal PA-C [address] [place] [address] Assigned PCP 12/20/20 04/28/24 Jc Zavala MD [facility] [address] [place] [address] Hematology & Oncology 08/07/21 Barbi Manzo, RN Personal Advocate & Liaison (PAL) Family Medicine 12/24/21 07/08/23 [place] [address] [address] [place] [address] Assigned Musculoskeletal Provider 04/04/22 08/19/23 Cristofer Michelle MD [address] [place] [address] 234115 Gastroenterology 07/28/22 Vivien Blanchard MD [address] [place] [address] [phone] Urology 07/28/22 Spana Hernandez MD [address] [place] [address] Assigned Nephrology Provider 07/11/22 09/25/22 Vivien Blanchard MD [address] [place] [address] [phone] Assigned Surgical Provider 07/25/22 06/30/23 Virgie Lobato PA-C [address] [place] [address] Assigned Nephrology Provider 09/26/22 03/28/24 Teetee Velazquez PA-C [address] [place] [address] Physician Mechanical Commissioning Engineer 05/11/23 Teetee Velazquez PAAnthonyC 909 [place] [address] Assigned Surgical Provider 07/01/23 Cora Shah, JERRY Personal Advocate & Liaison (PAL) Nurse 07/09/23 09/29/23 [place] [address] [address] [facility] 300 [place], [place] [address]25[address] Assigned Musculoskeletal Provider 08/20/23 Cristal Cooper RN Lead Credit Intern Primary Care - CC 04/27/2404/08 Shannon Rowland PA-C [address] [place] [address] Assigned PCP 04/29/24 05/28/24 Lanie Foster, RD, LD [address] [place] [place] [address] Registered Dietitian Nutrition 05/15/24 [place] [address] [place] [address] Assigned PCP 05/29/24 Melonie Caro RPH [address] [place] [address] Pharmacist Pharmacist 06/05/24 Federico Linda MD [address] [place] [address] Cardiovascular Disease 06/13/24 Melonie Caro [facility] [address] [place] [address] Assigned MTM Pharmacist 06/29/24 Virgie Lobato, PAAnthonyC [address] [place] [address] Assigned Nephrology Provider 07/30/24 Barry Ybarra MD [address] [place] [address] Hospitalist Infectious Diseases 08/31/24 Barry Ybarra MD [address] [place] [address] Assigned Infectious Disease Provider 10/27/24 documented as of this encounter
--- OUTSIDE RECORDS SUMMARY | 2024-11-12 17:30 | XMS_ITS | Encounter Summary ---
Author Organization [facility] Address [address] [place] [address] Care Team Providers Care Watchmaker Apprentice Name Role Phone Sheryl Stringer Kirk BENITEZ Unavailable [phone] Federico Linda MD Unavailable [phone] Trina Carbajal PA-C Primary Care Provider + [phone] Connie Blackwell MD Unavailable [phone] Ruth Ann Munoz MD Unavailable + Carlos Livingston MD Unavailable Jelena vailable Trina Carbajal PA-C Unavailable [phone] Carlos Livingston MD Unavailable Jelena vailable Carlos Livingston MD Unavailable Jelena vailable Trina Carbajal PA-C Unavailable [phone] Mari Funes RN Unavailable Unavailable Jc Zavala MD Unavailable [phone] Barbi Manzo RN Unavailable Unavailable Erasto Root MD Unavailable Cristofer Michelle MD Unavailable [phone] Vivien Blanchard MD Unavailable [phone] Sapna Hernandez MD Unavailable Vivien Blanchard MD Unavailable [phone] Virgie LobatoC Unavailable [phone] Teetee Velazquez-C Unavailable [phone] Teetee Velazquez PA-C Unavailable [phone] Cora Shah RN Unavailable Brad Mayer DO Unavailable [phone] Mary Garcia MD Primary Care Provider [phone] Cristal Cooper RN Unavailable Shannon Rowland PA-C Unavailable [phone], LD Unavailabl e Mary Garcia MD Unavailable Melonie Caro [facility] Unavailable Federico Linda MD Unavailable Melonie Caro [facility] Unavailable Virgie viramontes PA-C Unavailable [phone] Barry Ybarra MD Unavailable [phone] Barry Ybarra MD Unavailable [phone] Encounter Details Date Type Department Care Team (Late st Contact Info) Description 08/14/[address] [facility] Medical [address] [place] [phone] Carlos Livingston MD NO INFO AVAILABLE Social History Tobacco Use Types Packs/Day Years Used Date Smoking Tobacco: Never Smokeless Tobacco: Never Alcohol Use Standard Drinks/Week Comments No 0 (1 standard drink = 0.6 oz pur e alcohol) PHQ-2 Answer Date Recorded PHQ-2 Score 0 08/17/2020 Comments No Sex and Gender Information Value Date Recorded Sex Assigned at Female 07/18/2020 1:16 PM MARKETING COMMUNICATIONS LEADER Legal Sex Female 3:23 AM MARKETING COMMUNICATIONS LEADER Gender Identity Female 07/18/2020 1:16 PM MARKETING COMMUNICATIONS LEADER Sexual Orientation Straight 07/18/2020 1: 16 PM MARKETING COMMUNICATIONS LEADER 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 Unable to assess 08/14/2020 7:53 AM MARKETING COMMUNICATIONS LEADER documented as of this encounter Plan of Treatment Upcoming Encounters Date Type Department Care Team (Late st Contact Info) Description 11/16/2024 1:00 PM CDT Allied Health/Nurse Visit [facility] Urology [address] [phone] Lucero Britt PA-C 500 [place], [place] 3[address] 11/16/2024 2:45 PM CDT Office Visit [facility] Urology [address] [phone] Vivien Blanchard MD 420 [facility] 394 [place], [place] 3035[address] 11/20/2024 3:30 PM CDT Office Visit [facility] [address] [place] [phone] Mary [place] MD [id number] [place] [address] 11/22/2024 9:15 AM CDT Office Visit [facility] Heart [address] [place] [address] Federico Linda MD 6405 [facility] [address] [place] [address] 11/30/2024 10:30 AM CDT Lab [facility] [address] [place] [address] 12/06/2024 10:10 AM CDT Office Visit [facility] 65[address] [facility] [address] [place] [phone] Virgie Lobato PA-C 909 [place] [address] 12/28/2024 11:00 AM CDT Office Visit [facility] 2945 [facility] 200 [place] [phone] Barry Ybarra MD 2945 [facility] 200 [place] [address] 01/26/2025 11:30 AM CDT Office Visit [facility] [address] [place] [address] [place] [address] [place] [address] documented as of this encounter Goals Goal Patient Goal Type Associated Problems Recent Progress Patient-Stated? Author Problem Solving General On track( 019 9:24 AM MARKETING COMMUNICATIONS LEADER) Yes Sheryl Stringer RD Note: My Goal: [...] COVID-19 2021 2021 04/25/2021 12:41 PM MARKETING COMMUNICATIONS LEADER Rule Out COVID-19 06/14/2022 06/14/2022 06/14/2022 11:30 AM MARKETING COMMUNICATIONS LEADER Rule Out COVID-19 07/03/2022 07/03/2022 07/04/2022 12:27 AM MARKETING COMMUNICATIONS LEADER Rule Out COVID-19 04/01/2024 04/01/2024 04/01/2024 10:07 PM CDT ESBL 07/05/2024 08/24/2024 Rule Out COVID-19 07/16/2024 07/16/2024 07/16/2024 11:04 PM MARKETING COMMUNICATIONS LEADER Rule Out COVID-19 09/01/2024 09/01/2024 09/01/2024 2:05 AM CDT Rule Out COVID-19 09/21/2024 09/21/2024 09/21/2024 3:25 PM CDT Assessment Noted Time PHQ-9 Depression Total Score: 6 07/28/19 20 7:04 AM MARKETING COMMUNICATIONS LEADER documented as of this encounter Care Teams Watchmaker Apprentice Relationship Specialty Start Date End Date Trina Carbajal PAAnthonyC [address] [facility] [address] [place] [address] PCP - General Family Medicine 05/19/20 04/10/24 [place] [address] [place] [address] PCP - General Family Medicine 04/11/[address] [place] [address] Daylight Driller Dietitian, Registered 11/03/17 Federico Linda MD [address] [place] [address] Assigned Heart and Vascular Provider 03/29/20 Connie Blackwell MD [address] [place] [address] Assigned Endocrinology Provider 07/14/20 12/19/20 Ruth Ann Munoz MD [place] [address] [facility] [address] [place] [address] Assigned PCP 07/28/20 08/25/20 Carlos Livingston MD NO INFO AVAILABLE Assigned PCP 08/26/20 08/31/20 Trina Carbajal PA-C [address] [place] [address] Assigned PCP 09/01/20 12/07/20 Carlos Livingston MD NO INFO AVAILABLE Assigned Endocrinology Provider 12/20/20 12/18/22 Carlos Livingston MD NO INFO AVAILABLE Assigned PCP 12/08/20 12/19/20 Trina Carbajal PA-C [address] [place] [id number] Assigned PCP 12/20/20 04/28/24 Mari Funes, JERRY Personal Advocate & Liaison (PAL) Nurse 01/24/21 06/12/21 Jc Zavala MD [facility] [address] [place] [address] Hematology & Oncology 08/07/21 Barbi Manzo, RN Personal Advocate & Liaison (PAL) Family Medicine 12/24/21 07/08/23 [place] [address] [place] [address] Assigned Musculoskeletal Provider 04/04/22 08/19/23 Cristofer Michelle MD [address] [place] [address] 646675 Gastroenterology 07/28/22 Vivien Blanchard MD [address] [place] [address] 677355 Urology 07/28/22 Sapna Hernandez MD [address] 019795 Assigned Nephrology Provider 07/11/22 09/25/22 Vivien Blanchard MD [address] [place] [address] 614835 Assigned Surgical Provider 07/25/22 06/30/23 Virgie Lobato PA-C [address] [place], [place] 355305 Assigned Nephrology Provider 09/26/22 03/28/24 Teetee Velazquez PA-C [address] [place] [address] 443035 Physician Master Dyer 05/11/23 Teetee Velazquez PA-C 909 [place], [place] 651885 Assigned Surgical Provider 07/01/23 Cora Shah, JERRY Personal Advocate & Liaison (PAL) Nurse 07/09/23 09/29/23 [place] [address] [address] [place], [place] [phone] Assigned Musculoskeletal Provider 08/20/23 Cristal Cooper RN Lead Die Welder Primary Care - CC 04/27/2404/08 Shannon Rowland PA-C [address] [place] [phone] Assigned PCP 04/29/24 05/28/24 Lanie Foster, RD, LD [address] [place] [id number] Registered Dietitian Nutrition 05/15/24 [place] [address] [place] [address] Assigned PCP 05/29/24 Melonie Caro [facility] [address] [place] [place], [place] 647[address] Pharmacist Pharmacist 06/05/24 Federico Linda MD [address] [facility] [address] [place] 1027[address] Cardiovascular Disease 06/13/24 Melonie Caro RPH [address] [place] [address] Assigned MTM Pharmacist 06/29/24 Virgie Lobato PA-C [address] [place] [address] Assigned Nephrology Provider 07/30/24 Barry Ybarra MD [address] [place] [address] Hospitalist Infectious Diseases 08/31/24 Barry Ybarra MD [address] [place] [address] Assigned Infectious Disease Provider 10/27/24 documented as of this encounter
--- OUTSIDE RECORDS SUMMARY | 2024-11-12 17:30 | XMS_ITS | Encounter Summary ---
Author Organization [facility] Address [address] [place] [address] Care Team Providers Care Tile And Mottle Supervisor Name Role Phone Sheryl Stringer Kirk BENITEZ Unavailable [phone] Federico Linda MD Unavailable [phone] Trina Carbajal PA-C Primary Care Provider Connie Blackwell MD Unavailable [phone] Trina Carbajal PA-C Unavailable [phone] Carlos Livingston MD Unavailable Jelena vailable Carlos Livingston MD Unavailable Jelena vailable Trina Carbajal PA-C Unavailable [phone] Mari Funes RN Unavailable Unavailable Jc Zavala MD Unavailable [phone] Barbi Manzo RN Unavailable Unavailable Erasto Root MD Unavailable Cristofer Michelle MD Unavailable [phone] Vivien Blanchard MD Unavailable [phone] Sapna Hernandez MD Unavailable Vivien Blanchard MD Unavailable [phone] Virgie Lobato PA-C Unavailable [phone] Teetee Velazquez PA-C Unavailable [phone] Teetee Velazquez PA-C Unavailable [phone] Cora Shah RN Unavailable [phone] Brad Mayer DO Unavailable [phone] Mary Garcia MD Primary Care Provider [phone] Cristal Cooper RN Unavailable Shannon Rowland PA-C Unavailable [phone], LD Unavailabl e Mary Garcia MD Unavailable Melonie Caro [facility] Unavailable Federico Linda MD Unavailable [phone] Melonie Caro [facility] Unavailable Virgie viramontes PA-C Unavailable [phone] Barry Ybarra MD Unavailable [phone] Barry Ybarra MD Unavailable [phone] Encounter Details Date Type Department Care Team (Late st Contact Info) Description 10/23/2020 [facility] Medical Advice [address] [place] [address] Carlos Livingston MD [...] Sex Assigned at Female 07/18/2020 1:16 PM TRAVELING REPRESENTATIVE Legal Sex Female 3:23 AM TRAVELING REPRESENTATIVE Gender Identity Female 07/18/2020 1:16 PM TRAVELING REPRESENTATIVE Sexual Orientation Straight 07/18/2020 1: 16 PM TRAVELING REPRESENTATIVE 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 Not on file documented as of this encounter Plan of Treatment Upcoming Encounters Date Type Department Care Team (Late st Contact Info) Description 11/16/2024 1:00 PM CDT Allied Health/Nurse Visit [facility] Urology [address] [phone] Lucero Britt PA-C 500 [place], [place] [phone] 11/16/2024 2:45 PM CDT Office Visit [facility] Urology [address] [address] Vivien Blanchard MD 420 [facility] 394 [place], [place] [phone] 11/20/2024 3:30 PM CDT Office Visit [facility] [address] [place] [phone] [place] [id number] [place] [address] 11/22/2024 9:15 AM CDT Office Visit [facility] Heart [facility] [address] [facility] [address] [place] [phone] Federico Linda MD 0248 [facility] [address] [place] [address] 580415 11/30/2024 10:30 AM CDT Lab [facility] [address] [place] [phone] 12/06/2024 10:10 AM CDT Office Visit [facility] 6525 [facility] 200 [place] [phone] Virgie Lobato PA-C 909 [place] [address] 12/28/2024 11:00 AM CDT Office Visit [facility] 2945 [facility] 200 [place] [address] Barry Ybarra MD [address] [place] [address] 01/26/2025 11:30 AM CDT Office Visit [address] [phone] [place] [address] [place] [address] documented as of this encounter Goals Goal Patient Goal Type Associated Problems Recent Progress Patient-Stated? Author Problem Solving General On track( 9:24 AM TRAVELING REPRESENTATIVE) Yes Sheryl Stringer RD Note: My Goal: [...] Out COVID-19 2021 2021 04/25/2021 12:41 PM TRAVELING REPRESENTATIVE Rule Out COVID-19 06/14/2022 06/14/2022 06/14/2022 11:30 AM TRAVELING REPRESENTATIVE Rule Out COVID-19 07/03/2022 07/03/2022 07/04/2022 12:27 AM TRAVELING REPRESENTATIVE Rule Out COVID-19 04/01/2024 04/01/2024 04/01/2024 10:07 PM CDT ESBL 07/05/2024 08/24/2024 Rule Out COVID-19 07/16/2024 07/16/2024 07/16/2024 11:04 PM TRAVELING REPRESENTATIVE Rule Out COVID-19 09/01/2024 09/01/2024 09/01/2024 2:05 AM CDT Rule Out COVID-19 09/21/2024 09/21/2024 09/21/2024 3:25 PM CDT Assessment Noted Time PHQ-9 Depression Total Score: 6 08/25/19 21 7:03 AM CDT documented as of this encounter Care Teams Tile And Mottle Supervisor Relationship Specialty Start Date End Date Trina Carbajal PA-C [address] [place] [address] PCP - General Family Medicine 05/19/20 04/10/24 [place] [address] [place] [address] PCP - General Family Medicine 04/11/[address] [facility] [address] [place] [address] [place] [address] Job Honer Dietitian, Registered 11/03/17 Federico Linda MD [address] [place] [address] Assigned Heart and Vascular Provider 03/29/20 Connie Blackwell MD [address] [place] [address] Assigned Endocrinology Provider 07/14/20 12/19/20 Trina Carbajal PA-C [address] [place] [address] Assigned PCP 09/01/20 12/07/20 Carlos Livingston MD NO INFO AVAILABLE Assigned Endocrinology Provider 12/20/20 12/18/22 Carlos Livingston MD NO INFO AVAILABLE Assigned PCP 12/08/20 12/19/20 Trina Carbajal PA-C [address] [place] 86[address]85 Assigned PCP 12/20/20 04/28/24 Mari Funes RN Personal Advocate & Liaison (PAL) Nurse 01/24/21 06/12/21 Jc Zavala MD DE OCOLOGY H[facility]ATOLOGY [facility]5 [facility] 100 [place] [address] Hematology & Oncology 08/07/21 Barbi Manzo, JERRY Personal Advocate & Liaison (PAL) Family Medicine 12/24/21 07/08/23 [place] [address] [place] [address] [place] [address] Assigned Musculoskeletal Provider 04/04/22 08/19/23 Cristofer Michelle MD [address] [place], [place] [address]B [address] [place] [address] Gastroenterology 07/28/22 Vivien Blanchard MD 420 [facility] 394 [place], [place] 248[address] Urology 07/28/22 Sapna Hernandez MD 420 [facility] 394 [place], [place] 2997[address] Assigned Nephrology Provider 07/11/22 09/25/22 Vivien Blanchard MD [address] [place] [address] 069275 Assigned Surgical Provider 07/25/22 06/30/23 Virgie Lobato PA-C [address] [place] [address] 833185 Assigned Nephrology Provider 09/26/22 03/28/24 Teetee Velazquez PA-C [address] [place] [address] 647405 Physician Computer Clerk 05/11/23 Teetee Velazquez PA-C [address] [place] [address] Assigned Surgical Provider 07/01/23 Cora Shah, JERRY Personal Advocate & Liaison (PAL) Nurse 07/09/23 09/29/23 [place] [address] [address] [address] Assigned Musculoskeletal Provider 08/20/23 Cristal Cooper, RN Lead Diesel Fleet Mechanic Primary Care - CC 04/27/2404/08 Shannon Rowland PA-C [address] [place] [address]83 Assigned PCP 04/29/24 05/28/24 Lanie Foster, RD, LD [address] [place] 288135 Registered Dietitian Nutrition 05/15/24 [place] [address] [place] [address] Assigned PCP 05/29/24 Melonie Caro [facility] [address] [place] [address] Pharmacist Pharmacist 06/05/24 Federico Linda MD [address] [facility] [address] [place] [address] Cardiovascular Disease 06/13/24 Melonie Caro RPH 303 [place] [address] Assigned MTM Pharmacist 06/29/24 Virgie Lobato PA-C [address] [place] [address] 683745 Assigned Nephrology Provider 07/30/24 Barry Ybarra MD [address] [phone] Hospitalist Infectious Diseases 08/31/24 Barry Ybarra MD [facility] [address] [address] Assigned Infectious Disease Provider 10/27/24 documented as of this encounter
--- OUTSIDE RECORDS SUMMARY | 2024-11-12 17:30 | XMS_ITS | Encounter Summary ---
Author Organization [facility] Address [address] [place] [address] Care Team Providers Care Bingo Attendant Name Role Phone Sheryl Stringer Kirk BENITEZ Unavailable [phone] Federico Linda MD Unavailable [phone] Trina Carbajal-C Primary Care Provider Carlos Livingston MD Unavailable Jelena vailable Trina CarbajalC Unavailable [phone] Jc Zavala MD Unavailable [phone] Barbi Manzo RN Unavailable Unavailable Erasto Root MD Unavailable Cristofer Michelle MD Unavailable [phone] Vivien Blanchard MD Unavailable [phone] Sapna Hernandez MD Unavailable Vivien Blanchard MD Unavailable [phone] Virgie Lobato-C Unavailable [phone] Teetee VelazquezC Unavailable Teetee Velazquez-Javi Unavailable oCra Shah RN Unavailable MorenoBrad Unavailable [phone] Mary Garcia MD Primary Care Provider Cristal Cooper RN Unavailable Shannon Rowland PA-C Unavailable [phone], LD Unavailabl e Mary Garcia MD Unavailable Melonie Caro [facility] Unavailable Federico Linda MD Unavailable [phone] Melonie Caro [facility] Unavailable Virgie Lobato PA-C Unavailable Barry Ybarra MD Unavailable Barry Ybarra MD Unavailable [phone] Reason for Visit * Reason Onset Date Comments Symptoms 07/07/2022 Encounter Details Date Type Department Care Team (Late st Contact Info) Description 07/07/2022 [facility] Heart [address] [place] [address] Federico Linda MD [address] [facility] [address] [place], [place] [address] Symptoms Social History Tobacco Use Types Packs/Day Years Used Date Smoking Tobacco: Never Smokeless Tobacco: Never Alcohol Use Standard Drinks/Week Comments No 0 (1 standard drink = 0.6 oz pur e alcohol) PHQ-2 Answer Date Recorded PHQ-2 Score 1 06/19/2022 Comments No Sex and Gender Information Value Date Recorded Sex Assigned at Female 07/18/2020 1:16 PM RUBBER AND POUNDER Legal Sex Female 3:23 AM RUBBER AND POUNDER Gender Identity Female 07/18/2020 1:16 PM RUBBER AND POUNDER Sexual Orientation Straight 07/18/2020 1: 16 PM RUBBER AND POUNDER 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 No / Unsure 07/03/2022 9:33 PM RUBBER AND POUNDER documented as of this encounter Miscellaneous Notes * Telephone Encounter - Ami Lara, RN - 07/07/2022 9:10 AM CST Daughter Henrietta is concerned regarding mother's cardiac status. Has had multiple ER/Urgent care visits related to UTI. Troponin is elevated with EKG changes. Patient was advised to talk with shank paperer but patient had to cancel today's appointment due to being at home sick. Will route to Dr. Linda to advise on cardiac testing. Ami Lara RN on 07/07/2022 at 9:13 AM ER AND POUNDER documented in this encounter Plan of Treatment Upcoming Encounters Date Type Department Care Team (Late st Contact Info) Description 11/16/2024 1:00 PM CDT Allied Health/Nurse Visit [facility] [address] [phone] Lucero Britt PA-C 500 [place], [place] [address] 11/16/2024 2:45 PM CDT Office Visit [facility] [address] [phone] Vivien Blanchard MD 420 [facility] 394 [place], [place] [address] 11/20/2024 3:30 PM CDT Office Visit [place] [address] [place] [phone] [place] [address] [place], [place] [phone] 11/22/2024 9:15 AM CDT Office Visit [facility] [address] [facility] [address] [place] [phone] Federico Linda MD [address] [facility] [address] [place] [address] 11/30/2024 10:30 AM CDT Lab [facility] Laboratory [address] [place] [phone] 12/06/2024 10:10 AM CDT Office Visit [facility] [address] [facility] 200 [place] [phone] Virige Lobato, PA-C [address] [place] [address] 12/28/2024 11:00 AM CDT Office Visit [facility] [address] [place] [phone] Barry Ybarra MD [address] [place] [address] 01/26/2025 11:30 AM CDT Office Visit [facility] [address] [place] [phone] [place] [address] [place] [address] documented as of this encounter Goals Goal Patient Goal Type Associated Problems Recent Progress Patient-Stated? Author Problem Solving General On track( 019 9:24 AM RUBBER AND POUNDER) Yes Sheryl Stringer RD Note: My Goal: [...] Out COVID-19 07/16/2024 07/16/2024 07/16/2024 11:04 PM RUBBER AND POUNDER Rule Out COVID-19 09/01/2024 09/01/2024 09/01/2024 2:05 AM CDT Rule Out COVID-19 09/21/2024 09/21/2024 09/21/2024 3:25 PM CDT Assessment Noted Time PHQ-9 Depression Total Score: 4 06/19/19 23 11:34 AM RUBBER AND POUNDER documented as of this encounter Care Teams Bingo Attendant Relationship Specialty Start Date End Date Trina Carbajal PA-C [address] [place] [address] PCP - General Family Medicine 05/19/20 04/10/24 [place] [address] [address] [place] [address] PCP - General Family Medicine 04/11/[address] [facility] [address] [place] [address] [place] [address] [address] Carrier Dietitian, Registered 11/03/17 Federico Linda MD [address] [place] [address] Assigned Heart and Vascular Provider 03/29/20 Carlos Livingston MD NO INFO AVAILABLE Assigned Endocrinology Provider 12/20/20 12/18/22 Trina Carbajal, PA-C [address] [facility] [address] [place] [address] Assigned PCP 12/20/20 04/28/24 Jc Zavala MD [facility] [address] [place], [place] [address] Hematology & Oncology 08/07/21 Barbi Manzo, JERRY Personal Advocate & Liaison (PAL) Family Medicine 12/24/21 07/08/23 [place] [address] [place] [address] Assigned Musculoskeletal Provider 04/04/22 08/19/23 Cristofer Michelle MD [address] [place] [address] [address] [place] [address] Gastroenterology 07/28/22 Vivien Blanchard MD [address] [place] [phone] Urology 07/28/22 Sapna Hernandez MD [address] [place] [address] Assigned Nephrology Provider 07/11/22 09/25/22 Vivien Blanchard MD [address] [place] [address] Assigned Surgical Provider 07/25/22 06/30/23 Virgie Lobato PA-C [address] [place] [address] Assigned Nephrology Provider 09/26/22 03/28/24 Teetee Velazquez PA-C [address] [place] [address] Physician Business Administration Program Chair 05/11/23 Teetee Velazquez PA-C [address] [place] [address] 086225 Assigned Surgical Provider 07/01/23 Cora Shah, JERRY Personal Advocate & Liaison (PAL) Nurse 07/09/23 09/29/23 [place] [address] [address] [address] Assigned Musculoskeletal Provider 08/20/23 Cristal Cooper RN Lead Remote Recruiter Primary Care - CC 04/27/2404/08 Shannon Rowland PA-C [address] [place] [address] Assigned PCP 04/29/24 05/28/24 Lanie Foster, RD, LD [address] [place] [address] Registered Dietitian Nutrition 05/15/24 [place] [address] [address] [address] Assigned PCP 05/29/24 Melonie Caro [facility] [address] [place] [address] Pharmacist Pharmacist 06/05/24 Federico Linda MD [address] [place], [place] [address] Cardiovascular Disease 06/13/24 Melonie Caro [facility] [address] [place] [address] Assigned MTM Pharmacist 06/29/24 Virgie Lobato, PA-C [address] [place] [address] 233005 Assigned Nephrology Provider 07/30/24 Barry Ybarra MD [address] [place] [address] Hospitalist Infectious Diseases 08/31/24 Barry Ybarra MD [address] [place] [address] Assigned Infectious Disease Provider 10/27/24 documented as of this encounter
--- OUTSIDE RECORDS SUMMARY | 2024-11-12 17:30 | XMS_ITS | Encounter Summary ---
Author Organization [facility] Address [address] [place] [address] Care Team Providers Care Energy Projects Lead Name Role Phone Sheryl Stringer Kirk BENITEZ Unavailable [phone] Federico Linda MD Unavailable [phone] Trina Carbajal PA-C Primary Care Provider [phone] Connie Blackwell MD Unavailable [phone] Ruth Ann Munoz MD Unavailable + Carlos Livingston MD Unavailable Ejlena vailable Trina Carbajal PA-C Unavailable [phone] Carlos Livingston MD Unavailable Jelena vailable Carlos Livingston MD Unavailable Jelena vailable Trina Carbajal PA-C Unavailable [phone] Mari Funes RN Unavailable Unavailable Jc Zavala MD Unavailable [phone] Barbi Manzo RN Unavailable Unavailable Erasto Root MD Unavailable Cristofer Michelle MD Unavailable [phone] Vivien Blanchard MD Unavailable [phone] Sapna Hernandez MD Unavailable Vivien Blanchard MD Unavailable Virgie LobatoC Unavailable [phone] Teetee Velazquez-C Unavailable [phone] Teetee Velazquez-C Unavailable [phone] Cora Shah RN Unavailable Brad Mayer DO Unavailable [phone] Mary Garcia MD Primary Care Provider Cristal Cooper RN Unavailable Shannon Rowland-C Unavailable [phone], LD Unavailabl e Mary Garcia MD Unavailable Melonie Caro [facility] Unavailable Federico Linda MD Unavailable Melonie Caro [facility] Unavailable Virgie viramontes PA-C Unavailable [phone] Barry Ybarra MD Unavailable [phone] Barry Ybarra MD Unavailable Reason for Visit * Reason Comments Medication Refill Encounter Details Date Type Department Care Team (Late st Contact Info) Description 08/06/[address] [address] Ruth Ann Munoz MD [place] [address] [address] Medication Refill Social History Tobacco Use Types Packs/Day Years Used Date Smoking Tobacco: Never Smokeless Tobacco: Never Alcohol Use Standard Drinks/Week Comments No 0 (1 standard drink = 0.6 oz pur e alcohol) PHQ-2 Answer Date Recorded PHQ-2 Score 0 07/27/2019 Comments No Sex and Gender Information Value Date Recorded Sex Assigned at Female 07/18/2020 1:16 PM CORK INSULATION INSTALLER Legal Sex Female 3:23 AM CORK INSULATION INSTALLER Gender Identity Female 07/18/2020 1:16 PM CORK INSULATION INSTALLER Sexual Orientation Straight 07/18/2020 1: 16 PM CORK INSULATION INSTALLER 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 . Has visit scheduled. Milla Cummings RN [facility] -- Triage Nurse INSULATION INSTALLER documented in this encounter Plan of Treatment Upcoming Encounters Date Type Department Care Team (Late st Contact Info) Description 11/16/2024 1:00 PM CDT Allied Health/Nurse Visit [facility] [address] [address] Lucero Britt PA-C 500 [place], [place] [address] 11/16/2024 2:45 PM CDT Office Visit [facility] [address] [address] Vivien Blanchard MD 420 [facility] 394 [place], [place] [address] 11/20/2024 3:30 PM CDT Office Visit [facility] [address] [place] [phone] [place] [address] [place] [address] 11/22/2024 9:15 AM CDT Office Visit [facility] Heart [facility] [address] [facility] [address] [place] [phone] Federico Linda MD 6406 [facility] [address] [place], [place] [address] 11/30/2024 10:30 AM CDT Lab [facility] [address] [place] [address] 12/06/2024 10:10 AM CDT Office [facility] 6525 [facility] 200 [place] [phone] Virgie Lobato, PA-C 9 [place] [address] 12/28/2024 11:00 AM CDT Office Visit [address] [phone] Barry Ybarra MD [address] [place] [address] 01/26/2025 11:30 AM CDT Office Visit [facility] [address] [place] [phone] [place] [address] [place] [address] documented as of this encounter Goals Goal Patient Goal Type Associated Problems Recent Progress Patient-Stated? Author Problem Solving General On track( 019 9:24 AM CORK INSULATION INSTALLER) Yes Sheryl Stringer RD Note: My Goal: [...] Out COVID-19 2021 2021 04/25/2021 12:41 PM CORK INSULATION INSTALLER Rule Out COVID-19 06/14/2022 06/14/2022 06/14/2022 11:30 AM CORK INSULATION INSTALLER Rule Out COVID-19 07/03/2022 07/03/2022 07/04/2022 12:27 AM CORK INSULATION INSTALLER Rule Out COVID-19 04/01/2024 04/01/2024 04/01/2024 10:07 PM CDT ESBL 07/05/2024 08/24/2024 Rule Out COVID-19 07/16/2024 07/16/2024 07/16/2024 11:04 PM CORK INSULATION INSTALLER Rule Out COVID-19 09/01/2024 09/01/2024 09/01/2024 2:05 AM CDT Rule Out COVID-19 09/21/2024 09/21/2024 09/21/2024 3:25 PM CDT Assessment Noted Time PHQ-9 Depression Total Score: 6 07/28/19 20 7:04 AM CORK INSULATION INSTALLER documented as of this encounter Care Teams Energy Projects Lead Relationship Specialty Start Date End Date Trina Carbajal PA-C [address] [place] [address] PCP - General Family Medicine 05/19/20 04/10/24 [place] [address] [place] [address] PCP - General Family Medicine 04/11/[address] [place] [address] [facility] Dietitian, Registered 11/03/17 Federico Linda MD [address] [place] [address] Assigned Heart and Vascular Provider 03/29/20 Connie Blackwell MD [address] [place], [place] [address] Assigned Endocrinology Provider 07/14/20 12/19/20 Ruth Ann Munoz MD [place] [address] [place] [address] Assigned PCP 07/28/20 08/25/20 Carlos Livingston MD NO INFO AVAILABLE Assigned PCP 08/26/20 08/31/20 Trina Carbajal, PA-C [address] [place] [address] Assigned PCP 09/01/20 12/07/20 Carlos Livingston MD NO INFO AVAILABLE Assigned Endocrinology Provider 12/20/20 12/18/22 Carlos Livingston MD NO INFO AVAILABLE Assigned PCP 12/08/20 12/19/20 Trina Carbajal PA-C 6[address] [facility] [address] [place], [place] [address] Assigned PCP 12/20/20 04/28/24 Mari Funes, JERRY Personal Advocate & Liaison (PAL) Nurse 01/24/21 06/12/21 Jc Zavala MD [facility] [address] [place] [address] Hematology & Oncology 08/07/21 Barbi Manzo, JERRY Personal Advocate & Liaison (PAL) Family Medicine 12/24/21 07/08/23 [place] [address] [place] [address] Assigned Musculoskeletal Provider 04/04/22 08/19/23 Cristofer Michelle MD [address] [place] [address] 1[address] [place], [place] [address] Gastroenterology 07/28/22 Vivien Blanchard MD [address] [place] [address] 394 [place], [place] [address] Urology 07/28/22 Sapna Hernandez MD 420 [facility] [address] [place], [place] [address] Assigned Nephrology Provider 07/11/22 09/25/22 Vivien Blanchard MD [address] [place] [address] 043405 Assigned Surgical Provider 07/25/22 06/30/23 Virgie Lobato PA-C [address] [place] [address] Assigned Nephrology Provider 09/26/22 03/28/24 Teetee Velazquez PA-C [address] [place] [address] 150805 Physician Ms Sql Developer 05/11/23 Teetee Velazquez PA-C [address] [place] [address] [phone] Assigned Surgical Provider 07/01/23 Cora Shah RN Personal Advocate & Liaison (PAL) Nurse 07/09/23 09/29/23 [place] [address] 107077 Assigned Musculoskeletal Provider 08/20/23 Cristal Cooper, JERRY Lead Bilingual Account Manager Primary Care - CC 04/27/2404/08 Shannon Rowland PA-C [address] [place] [address] Assigned PCP 04/29/24 05/28/24 Lanie Foster, RD, LD [address] [place] [address] Registered Dietitian Nutrition 05/15/24 [place] [address] [place] [address] Assigned PCP 05/29/24 Melonie Caro [facility] [address] [place] [address] Pharmacist Pharmacist 06/05/24 Federico Linda MD 6[address] [facility] [address] [place] [address] Cardiovascular Disease 06/13/24 Melonie Caro [facility] [address] [place] [address] Assigned MTM Pharmacist 06/29/24 Virgie Lobato, PA-C [address] [place] [address] Assigned Nephrology Provider 07/30/24 Barry Ybarra MD [address] [place] [address] Hospitalist Infectious Diseases 08/31/24 Barry Ybarra MD [address] [place] [address] Assigned Infectious Disease Provider 10/27/24 documented as of this encounter
--- OUTSIDE RECORDS SUMMARY | 2024-11-12 17:30 | XMS_ITS | Encounter Summary ---
Author Organization [facility] Address [address] [place] [address] Care Team Providers Care Infantry Weapons Crewmember Name Role Phone Sheryl Stringer Kirk BENITEZ Unavailable [phone] Federico Linda MD Unavailable [phone] Trina Carbajal PA-C Primary Care Provider + [phone] Connie Blackwell MD Unavailable [phone] Ruth Ann Munoz MD Unavailable + Carlos Livingston MD Unavailable Jelena vailable Trina Carbajal PA-C Unavailable [phone] Carlos Livingston MD Unavailable Jelena vailable Carlos Livingston MD Unavailable Jelena vailable Trina Carbajal PA-C Unavailable [phone] Mari Funes RN Unavailable Unavailable Jc Zavala MD Unavailable [phone] Barbi Manzo RN Unavailable Unavailable Erasto Root MD Unavailable Cristofer Michelle MD Unavailable Vivien Blanchard MD Unavailable Sapna Hernandez MD Unavailable Vivien Blanchard MD Unavailable Virgie LobatoC Unavailable Teetee Velazquez PA-C Unavailable [phone] Teetee Velazquez PA-C Unavailable [phone] Cora Shah RN Unavailable Brad Mayer DO Unavailable Mary Garcia MD Primary Care Provider Cristal Cooper RN Unavailable Shannon Rowland PA-C Unavailable Lanie Foster RD, LD Unavailabl e Mary Garcia MD Unavailable Melonie Caro [facility] Unavailable Federico Linda MD Unavailable Melonie Caro [facility] Unavailable Virgie viramontes PA-C Unavailable [phone] Barry Ybarra MD Unavailable Barry Ybarra MD Unavailable [phone] Reason for Visit * Reason Onset Date Comments MyChart Communication 08/08/2020 Encounter Details Date Type Department Care Team (Latest Contact Info) Description 08/08/2020 MyC Medical [facility] [address] [place] [address] Mari Tee CMA MyChart Communication Social History Tobacco Use Types Packs/Day Years Used Date Smoking Tobacco: Never Smokeless Tobacco: Never Alcohol Use Standard Drinks/Week Comments No 0 (1 standard drink = 0.6 oz pur e alcohol) PHQ-2 Answer Date Recorded PHQ-2 Score 0 07/27/2019 Comments No Sex and Gender Information Value Date Recorded Sex Assigned at Female 07/18/2020 1:16 PM INGOT STRIPPER Legal Sex Female 3:23 AM INGOT STRIPPER Gender Identity Female 07/18/2020 1:16 PM INGOT STRIPPER Sexual Orientation Straight 07/18/2020 1: 16 PM INGOT STRIPPER 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 Livingston ([facility]ider in [place]), if you like, we can schedule you to been by us. We are doing telephone, video, and face to face visits. Please call [phone] to schedule an appointment. We then can help with any paperwork that needs to be completed. Thank you, Kika Pineda, Birdie MA T STRIPPER * Telephone Encounter - Sheryl Mckay RN - 08/09/2020 7:08 AM CST See other [facility] messages, pt needs assistance with khushbu, appointment with endo was rescheduled per derrick, thanks Sheryl Mckay RN, BSN Message handled by CLINIC NURSE. T STRIPPER documented in this encounter Plan of Treatment Upcoming Encounters Date Type Department Care Team ([facility] st Contact Info) Description 11/16/2024 1:00 PM CDT Allied Health/Nurse Visit [facility] [address] [place] [address] Lucero Britt, SANTOS [address] [place] [address] 11/16/2024 2:45 PM CDT Office Visit [facility] Urology [facility] 909 [facility] 4th [place] [phone] Vivien Blanchard MD [address] [facility] [address] [place], [place] [address] 11/20/2024 3:30 PM CDT Office Visit [facility] [address] [place] [phone] [place] [address] [place] [address] 11/22/2024 9:15 AM CDT Office Visit [facility] Heart [facility] [address] [facility] [address] [place] [phone] Federico Linda MD [address] [place], [place] [address] 11/30/2024 10:30 AM CDT Lab [facility] [address] [place] [phone] 12/06/2024 10:10 AM CDT Office Visit [facility] Specialty [facility] 6525 [facility] 200 [place] [phone] Virgie Lobato, PA-C 909 [place] [address] 12/28/2024 11:00 AM CDT Office Visit [facility] 2945 [facility] 200 [place] [phone] Barry Ybarra MD [address] [place] [address] 200 [place] [address] 01/26/2025 11:30 AM CDT Office Visit [facility] [address] [place] [address] [place] [address] [place] [address] documented as of this encounter Goals Goal Patient Goal Type Associated Problems Recent Progress Patient-Stated? Author Problem Solving General On track( 019 9:24 AM INGOT STRIPPER) Yes Sheryl Stringer RD Note: My Goal: [...] Out COVID-19 2021 2021 04/25/2021 12:41 PM INGOT STRIPPER Rule Out COVID-19 06/14/2022 06/14/2022 06/14/2022 11:30 AM INGOT STRIPPER Rule Out COVID-19 07/03/2022 07/03/2022 07/04/2022 12:27 AM INGOT STRIPPER Rule Out COVID-19 04/01/2024 04/01/2024 04/01/2024 10:07 PM CDT ESBL 07/05/2024 08/24/2024 Rule Out COVID-19 07/16/2024 07/16/2024 07/16/2024 11:04 PM INGOT STRIPPER Rule Out COVID-19 09/01/2024 09/01/2024 09/01/2024 2:05 AM CDT Rule Out COVID-19 09/21/2024 09/21/2024 09/21/2024 3:25 PM CDT Assessment Noted Time PHQ-9 Depression Total Score: 6 07/28/19 20 7:04 AM INGOT STRIPPER documented as of this encounter Care Teams Infantry Weapons Crewmember Relationship Specialty Start Date End Date Trina Carbajal PA-C [address] [place] [address] PCP - General Family Medicine 05/19/20 04/10/24 [place] [address] [place] [address] PCP - General Family Medicine 04/11/[address] [place] [address] Data Technician Dietitian, Registered 11/03/17 Federico Linda MD [address] [place] [address] Assigned Heart and Vascular Provider 03/29/20 Connie Blackwell MD [address] [place] [address] Assigned Endocrinology Provider 07/14/20 12/19/20 Ruth Ann Munoz MD [place] [address] [facility] [address] [place] [address] Assigned PCP 07/28/20 08/25/20 Carlos Livingston MD NO INFO AVAILABLE Assigned PCP 08/26/20 08/31/20 Trina Carbajal PA-C [address] [place] [address] Assigned PCP 09/01/20 12/07/20 Carlos Livingston MD NO INFO AVAILABLE Assigned Endocrinology Provider 12/20/20 12/18/22 Carlos Livingston MD NO INFO AVAILABLE Assigned PCP 12/08/20 12/19/20 Trina Carbajal, PA-C [address] [place] [address] Assigned PCP 12/20/20 04/28/24 Mari Funes, JERRY Personal Advocate & Liaison (PAL) Nurse 01/24/21 06/12/21 Jc Zavala MD [place] [facility] [place] [address] [place] [address] Hematology & Oncology 08/07/21 Barbi Manzo, JERRY Personal Advocate & Liaison (PAL) Family Medicine 12/24/21 07/08/23 [place] [address] [place] [address] Assigned Musculoskeletal Provider 04/04/22 08/19/23 Cristofer Michelle MD [address] [place] [address] PM[address] [place], [place] [address] Gastroenterology 07/28/22 Vivien Blanchard MD [address] [place] [address] [facility] [address] [place], [place] 45[address] Urology 07/28/22 Sapna Hernandez MD 420 [facility] 394 [place] [address] Assigned Nephrology Provider 07/11/22 09/25/22 Vivien Blanchard MD 420 [facility] 394 [place], [place] 4550[address] Assigned Surgical Provider 07/25/22 06/30/23 Virgie Lobato PA-C [address] [place] [address] 838955 Assigned Nephrology Provider 09/26/22 03/28/24 Teetee Velazquez PA-C [address] [place] [address] 992025 Physician Water Project Manager 05/11/23 Teetee Velazquez PA-C [address] [place] [address] 257665 Assigned Surgical Provider 07/01/23 Cora Shah RN Personal Advocate & Liaison (PAL) Nurse 07/09/23 09/29/23 [place] [address] [address] [address] Assigned Musculoskeletal Provider 08/20/23 Cristal Cooper, RN Lead Machine Gun Mechanic Primary Care - CC 04/27/2404/08 Shannon Rowland PA-C [address] [place] [phone] Assigned PCP 04/29/24 05/28/24 Lanie Foster, RD, LD [address] [place] [address] Registered Dietitian Nutrition 05/15/24 [place] [address] [place] [address] Assigned PCP 05/29/24 Melonie Caro [facility] [address] [place], [place] [address] Pharmacist Pharmacist 06/05/24 Federico Linda MD [address] [place] [address] Cardiovascular Disease 06/13/24 Melonie Caro [facility] [address] [place] [address] Assigned MTM Pharmacist 06/29/24 Virgie Lobato, PAAnthonyC [address] [place] [address] 081205 Assigned Nephrology Provider 07/30/24 Barry Ybarra MD [address] [facility] [address] Hospitalist Infectious Diseases 08/31/24 Barry Ybarra MD [address] [place] [address] Assigned Infectious Disease Provider 10/27/24 documented as of this encounter
--- OUTSIDE RECORDS SUMMARY | 2024-11-12 17:30 | XMS_ITS | Encounter Summary ---
Author Organization [facility] Address [address] [place] [address] Care Team Providers Care Artificial Flowers Dyer Name Role Phone Sheryl Stringer Kirk BENITEZ Unavailable [phone] Federico Linda MD Unavailable [phone] Trina Carbajal PA-C Primary Care Provider + [phone] Connie Blackwell MD Unavailable [phone] Ruth Ann Munoz MD Unavailable + Carlos Livingston MD Unavailable Jelena vailable Trina Carbajal PA-C Unavailable [phone] Carlos Livingston MD Unavailable Jelena vailable Carlos Livingston MD Unavailable Jelena vailable Trina Carbajal PA-C Unavailable [phone] Mari Funes RN Unavailable Unavailable Jc Zavala MD Unavailable [phone] Barbi Manzo RN Unavailable Unavailable Erasto Root MD Unavailable Cristofer Michelle MD Unavailable [phone] Vivien Blanchard MD Unavailable [phone] Sapna Hernandez MD Unavailable Vivien Blanchard MD Unavailable [phone] Virgie LobatoC Unavailable [phone] Teetee Velazquez-C Unavailable [phone] Teetee Velazquez PA-C Unavailable [phone] Cora Shah RN Unavailable Brad Mayer DO Unavailable [phone] Mary Garcia MD Primary Care Provider Cristal Cooper RN Unavailable Shannon Rowland PA-C Unavailable Lanie Foster RD, LD Unavailabl e Mary Garcia MD Unavailable Melonie Caro [facility] Unavailable Federico Linda MD Unavailable Melonie Caro [facility] Unavailable Virgie viramontes PA-C Unavailable [phone] Barry Ybarra MD Unavailable [phone] Barry Ybarra MD Unavailable [phone] Encounter Details Date Type Department Care Team (Late st Contact Info) Description 08/14/2020 [facility] [address] [place] [phone] Carlos Livingston MD NO INFO AVAILABLE Social History Tobacco Use Types Packs/Day Years Used Date Smoking Tobacco: Never Smokeless Tobacco: Never Alcohol Use Standard Drinks/Week Comments No 0 (1 standard drink = 0.6 oz pur e alcohol) PHQ-2 Answer Date Recorded PHQ-2 Score 0 08/17/2020 Comments No Sex and Gender Information Value Date Recorded Sex Assigned at Female 07/18/2020 1:16 PM PHYSICIAN RELATIONS MANAGER Legal Sex Female 3:23 AM PHYSICIAN RELATIONS MANAGER Gender Identity Female 07/18/2020 1:16 PM PHYSICIAN RELATIONS MANAGER Sexual Orientation Straight 07/18/2020 1: 16 PM PHYSICIAN RELATIONS MANAGER 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 Unable to assess 08/14/2020 7:53 AM PHYSICIAN RELATIONS MANAGER documented as of this encounter Plan of Treatment Upcoming Encounters Date Type Department Care Team (Late st Contact Info) Description 11/16/2024 1:00 PM CDT Allied Health/Nurse Visit [facility] Urology [address] [phone] Lucero Britt PA-C 500 [place], [place] [address] 11/16/2024 2:45 PM CDT Office Visit [facility] Urology [address] [phone] Vivien Blanchard MD 420 [facility] 394 [place], [place] [address] 11/20/2024 3:30 PM CDT Office Visit [facility] [address] [place] [phone] [place] [address] [place] [address] 11/22/2024 9:15 AM CDT Office Visit [facility] Heart [address] [place] [address] Federico Linda MD 6[address] [facility] [address] [place] [address] 11/30/2024 10:30 AM CDT Lab [facility] [address] [place] [address] 12/06/2024 10:10 AM CDT Office Visit [facility] 65[address] [facility] [address] [place] [phone] Virgie Lobato PA-C 909 [place] [address] 12/28/2024 11:00 AM CDT Office Visit [facility] 2945 [facility] 200 [place] [phone] Barry Ybarra MD 2945 [facility] 200 [place] [address] 01/26/2025 11:30 AM CDT Office Visit [facility] [address] [place] [address] [place] [address] [place] [address] documented as of this encounter Goals Goal Patient Goal Type Associated Problems Recent Progress Patient-Stated? Author Problem Solving General On track( 019 9:24 AM PHYSICIAN RELATIONS MANAGER) Yes Sheryl Stringer RD Note: My [...] Out COVID-19 2021 2021 04/25/2021 12:41 PM PHYSICIAN RELATIONS MANAGER Rule Out COVID-19 06/14/2022 06/14/2022 06/14/2022 11:30 AM PHYSICIAN RELATIONS MANAGER Rule Out COVID-19 07/03/2022 07/03/2022 07/04/2022 12:27 AM PHYSICIAN RELATIONS MANAGER Rule Out COVID-19 04/01/2024 04/01/2024 04/01/2024 10:07 PM CDT ESBL 07/05/2024 08/24/2024 Rule Out COVID-19 07/16/2024 07/16/2024 07/16/2024 11:04 PM PHYSICIAN RELATIONS MANAGER Rule Out COVID-19 09/01/2024 09/01/2024 09/01/2024 2:05 AM CDT Rule Out COVID-19 09/21/2024 09/21/2024 09/21/2024 3:25 PM CDT Assessment Noted Time PHQ-9 Depression Total Score: 6 07/28/19 20 7:04 AM PHYSICIAN RELATIONS MANAGER documented as of this encounter Care Teams Artificial Flowers Dyer Relationship Specialty Start Date End Date Trina Carbajal PAAnthonyC [address] [facility] [address] [place] [address] PCP - General Family Medicine 05/19/20 04/10/24 [place] [address] [place] [address] PCP - General Family Medicine 04/11/[address] [place] [address] Barrel Assembler Dietitian, Registered 11/03/17 Federico Linda MD [address] [place] [address] Assigned Heart and Vascular Provider 03/29/20 Connie Blackwell MD [address] [place] [address] Assigned Endocrinology Provider 07/14/20 12/19/20 Ruth Ann Munoz MD [place] [address] [facility] [address] [place] [address] Assigned PCP 07/28/20 08/25/20 Carlos Livingston MD NO INFO AVAILABLE Assigned PCP 08/26/20 08/31/20 Trina Carbajal PA-C [address] [place] [address] Assigned PCP 09/01/20 12/07/20 Carlos Livingston MD NO INFO AVAILABLE Assigned Endocrinology Provider 12/20/20 12/18/22 Carlos Livingston MD NO INFO AVAILABLE Assigned PCP 12/08/20 12/19/20 Trina Carbajal PA-C [address] [place] [address] Assigned PCP 12/20/20 04/28/24 Mari Funes, JERRY Personal Advocate & Liaison (PAL) Nurse 01/24/21 06/12/21 Jc Zavala MD [place] [facility] [address] [place] [address] Hematology & Oncology 08/07/21 Barbi Manzo, RN Personal Advocate & Liaison (PAL) Family Medicine 12/24/21 07/08/23 [place] [address] [place] [address] Assigned Musculoskeletal Provider 04/04/22 08/19/23 Cristofer Michelle MD [address] [place] [address] 454915 Gastroenterology 07/28/22 Vivien Blanchard MD [address] [place] [address] 822345 Urology 07/28/22 Sapna Hernandez MD [address] 461375 Assigned Nephrology Provider 07/11/22 09/25/22 Vivien Blanchard MD [address] [place] [address] 061205 Assigned Surgical Provider 07/25/22 06/30/23 Virgie Lobato PA-C 9 [place], [place] [address] Assigned Nephrology Provider 09/26/22 03/28/24 Teetee Velazquez PA-C [address] [place] [address] 778625 Physician Reversal Print Inspector 05/11/23 Teetee Velazquez PA-C 909 [place], [place] 330765 Assigned Surgical Provider 07/01/23 Cora Shah, JERRY Personal Advocate & Liaison (PAL) Nurse 07/09/23 09/29/23 [place] [address] [address] [place], [place] [address] Assigned Musculoskeletal Provider 08/20/23 Cristal Cooper RN Lead Soldering Inspector Primary Care - CC 04/27/2404/08 Shannon Rowland PA-C [address] [place] [address]283 Assigned PCP 04/29/24 05/28/24 Lanie Foster, RD, LD [address] [place] [address] Registered Dietitian Nutrition 05/15/24 [place] [address] [place] [address] Assigned PCP 05/29/24 Melonie Caro [facility] [address] [place], [place] [address] Pharmacist Pharmacist 06/05/24 Federico Linda MD [address] [facility] [address] [place] 496565 Cardiovascular Disease 06/13/24 Melonie Caro [facility] [address] [place] [address] Assigned MTM Pharmacist 06/29/24 Virgie Lobato PA-C [address] [place] [address] Assigned Nephrology Provider 07/30/24 Barry Ybarra MD [address] [place] [address] Hospitalist Infectious Diseases 08/31/24 Barry Ybarra MD [address] [place] [address] Assigned Infectious Disease Provider 10/27/24 documented as of this encounter
--- OUTSIDE RECORDS SUMMARY | 2024-11-12 17:30 | XMS_ITS | Encounter Summary ---
Author Organization [facility] Address [address] [place] [address] Care Team Providers Care Per Diem Name Role Phone Sheryl Stringer Kirk BENITEZ Unavailable [phone] Federico Linda MD Unavailable [phone] Trina Carbajal PA-C Primary Care Provider Connie Blackwell MD Unavailable [phone] Trina Carbajal PA-C Unavailable [phone] Carlos Livingston MD Unavailable Jleena vailable Carlos Livingston MD Unavailable Jelena vailable Trina Carbajal PA-C Unavailable [phone] Mari Funes RN Unavailable Unavailable Jc Zavala MD Unavailable [phone] Barbi Manzo RN Unavailable Unavailable Erasto Root MD Unavailable Cristofer Michelle MD Unavailable [phone] Vivien Blanchard MD Unavailable [phone] Sapna Hernandez MD Unavailable Vivien Blanchard MD Unavailable [phone] Virgie Lobato PA-C Unavailable [phone] Teetee Velazquez PA-C Unavailable [phone] Teetee Velazquez PA-C Unavailable [phone] Cora Shah RN Unavailable [phone] Brad Mayer DO Unavailable [phone] Mary Garcia MD Primary Care Provider Cristal Cooper RN Unavailable Shannon Rowland PA-C Unavailable [phone], LD Unavailabl e Mary Garcia MD Unavailable Melonie Caro [facility] Unavailable Federico Linda MD Unavailable [phone] Melonie Caro [facility] Unavailable Virgie viramontes PA-C Unavailable [phone] Barry Ybarra MD Unavailable [phone] Barry Ybarra MD Unavailable [phone] Encounter Details Date Type Department Care Team (Late st Contact Info) Description 10/23/2020 [facility] Medical Advice [address] [place] [address] Carlos Livingston MD [...] Sex Assigned at Female 07/18/2020 1:16 PM NEEDLE GRINDER Legal Sex Female 3:23 AM NEEDLE GRINDER Gender Identity Female 07/18/2020 1:16 PM NEEDLE GRINDER Sexual Orientation Straight 07/18/2020 1: 16 PM NEEDLE GRINDER 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 Sheryl Vincent RN Specialty Triage 10/24/2020 7:02 AM documented in this encounter Plan of Treatment Upcoming Encounters Date Type Department Care Team (Late st Contact Info) Description 11/16/2024 1:00 PM CDT Allied Health/Nurse Visit [facility] Urology [address] [phone] Lucero Britt PA-C 500 [place], [place] [phone] 11/16/2024 2:45 PM CDT Office Visit [facility] Urology [address] [phone] Vivien Blanchard MD 420 [facility] 394 [place], [place] [address] 11/20/2024 3:30 PM CDT Office Visit [facility] [address] [place] [address] Mary Garcia MD [address] [place] [address] 11/22/2024 9:15 AM CDT Office Visit [facility] Heart [address] 140 [place] [address] Federico Linda MD 6405 [facility] [address] [place] [address] 11/30/2024 10:30 AM CDT Lab [facility] [address] [place] [address] 12/06/2024 10:10 AM CDT Office Visit [facility] 6525 [facility] 200 [place] [phone] Virgie Lobato, PA-C [address] [place] [address] 12/28/2024 11:00 AM CDT Office Visit [facility] 2945 [facility] 200 [place] [address] Barry Ybarra MD 2945 [facility] 200 [place] [address] 01/26/2025 11:30 AM CDT Office Visit [facility] [address] [place] [address] [place] [address] [place] [address] documented as of this encounter Goals Goal Patient Goal Type Associated Problems Recent Progress Patient-Stated? Author Problem Solving General On track( 019 9:24 AM NEEDLE GRINDER) Yes Sheryl Stringer RD Note: My Goal: [...] Out COVID-19 2021 2021 04/25/2021 12:41 PM NEEDLE GRINDER Rule Out COVID-19 06/14/2022 06/14/2022 06/14/2022 11:30 AM NEEDLE GRINDER Rule Out COVID-19 07/03/2022 07/03/2022 07/04/2022 12:27 AM NEEDLE GRINDER Rule Out COVID-19 04/01/2024 04/01/2024 04/01/2024 10:07 PM CDT ESBL 07/05/2024 08/24/2024 Rule Out COVID-19 07/16/2024 07/16/2024 07/16/2024 11:04 PM NEEDLE GRINDER Rule Out COVID-19 09/01/2024 09/01/2024 09/01/2024 2:05 AM CDT Rule Out COVID-19 09/21/2024 09/21/2024 09/21/2024 3:25 PM CDT Assessment Noted Time PHQ-9 Depression Total Score: 6 08/25/19 21 7:03 AM CDT documented as of this encounter Care Teams Per Diem Relationship Specialty Start Date End Date Trina Carbajal PA-C [address] [facility] [address] [place] [address] PCP - General Family Medicine 05/19/20 04/10/24 [place] [address] [place] [address] PCP - General Family Medicine 04/11/[address] [facility] [place] [address] [place]ra [place]ta Roofer Dietitian, Registered 11/03/17 Federico Linda MD [address] [place] [address] Assigned Heart and Vascular Provider 03/29/20 Connie Blackwell MD [address] [place], [place] [address] Assigned Endocrinology Provider 07/14/20 12/19/20 Trina Carbajal PA-C [address] [facility] 200 [place] [address] Assigned PCP 09/01/20 12/07/20 Carlos Livingston MD NO INFO AVAILABLE Assigned Endocrinology Provider 12/20/20 12/18/22 Carlos Livingston MD NO INFO AVAILABLE Assigned PCP 12/08/20 12/19/20 Trina Carbajal PA-C [address] [place] [address] Assigned PCP 12/20/20 04/28/24 Mari Funes, JERRY Personal Advocate & Liaison (PAL) Nurse 01/24/21 06/12/21 Jc Zavala MD [facility] [address] [place] [address] Hematology & Oncology 08/07/21 Barbi Manzo, JERRY Personal Advocate & Liaison (PAL) Family Medicine 12/24/21 07/08/23 [place] [address] [address] [place] [address] Assigned Musculoskeletal Provider 04/04/22 08/19/23 Cristofer Michelle MD [address] [place] [address] Gastroenterology 07/28/22 Vivien Blanchard MD [address] [place] [address] Urology 07/28/22 Sapna Hernandez MD [address] [place] [address] Assigned Nephrology Provider 07/11/22 09/25/22 Vivien Blanchard MD [address] [place] [address] Assigned Surgical Provider 07/25/22 06/30/23 Virgie Lobato PA-C [address] [place] [address] Assigned Nephrology Provider 09/26/22 03/28/24 Teetee Velazquez PA-C [address] [place] [address] Physician Film Sound Coordinator 05/11/23 Teetee Velazquez PA-C [address] [place] [address] Assigned Surgical Provider 07/01/23 Cora Shah RN Personal Advocate & Liaison (PAL) Nurse 07/09/23 09/29/23 [place] [address] [address] [place] [address] Assigned Musculoskeletal Provider 08/20/23 Cristal Cooper, RN Lead Boat Painter Primary Care - CC 04/27/2404/08 Shannon Rowland PA-C [address] [place] [phone] Assigned PCP 04/29/24 05/28/24 Lanie Foster, RD, LD [address] [place] 9[address]125 Registered Dietitian Nutrition 05/15/24 [place] [address] [place] [address] Assigned PCP 05/29/24 Melonie Caro [facility] [address] [place], [place] [address] Pharmacist Pharmacist 06/05/24 Federico Linda MD [address] [facility] [address] [place] [address] Cardiovascular Disease 06/13/24 Melonie Caro [facility] [address] [place] [address] Assigned MTM Pharmacist 06/29/24 Virgie Lobato PA-C [address] [place] [address] Assigned Nephrology Provider 07/30/24 Barry Ybarra MD [address] [place] [address] Hospitalist Infectious Diseases 08/31/24 Barry Ybarra MD [address] [place] [address] Assigned Infectious Disease Provider 10/27/24 documented as of this encounter
--- OUTSIDE RECORDS SUMMARY | 2024-11-12 17:31 | XMS_ITS | Encounter Summary ---
Author Organization [facility] Address [address] [place] [address] Care Team Providers Care Fire Prevention Chief Name Role Phone Sheryl Stringer Kirk BENITEZ Unavailable [phone] Federico Linda MD Unavailable [phone] Trina Carbajal PA-C Primary Care Provider + [phone] Connie Blackwell MD Unavailable [phone] Ruth Ann Munoz MD Unavailable + Carlos Livingston MD Unavailable Jelena vailable Trina Carbajal PA-C Unavailable [phone] Carlos Livingston MD Unavailable Jelena vailable Carlos Livingston MD Unavailable Jelena vailable Trina Carbajal PA-C Unavailable [phone] Mari Funes RN Unavailable Unavailable Jc Zavala MD Unavailable [phone] Barbi Manzo RN Unavailable Unavailable Erasto Root MD Unavailable Cristofer Michelle MD Unavailable Vivien Blanchard MD Unavailable Sapna Hernandez MD Unavailable Vivien Blanchard MD Unavailable [phone] Virgie Lobato PA-C Unavailable [phone] Teetee VelazquezC Unavailable [phone] Teetee VelazquezC Unavailable Cora Shah RN Unavailable Brad Mayer DO Unavailable [phone] Mary Garcia MD Primary Care Provider [phone] Cristal Cooper RN Unavailable Shannon Rowland PA-C Unavailable [phone], LD Unavailabl e Mary Garcia MD Unavailable Melonie Caro [facility] Unavailable Federico Linda MD Unavailable Melonie Caro [facility] Unavailable Virgie viramontes PA-C Unavailable [phone] Barry Ybarra MD Unavailable Barry Ybarra MD Unavailable Encounter Details Date Type Department Care Team (Late st Contact Info) Description 08/01/2020 [facility] Medical [address] [address] Trina Carbajal PA-C [address] [facility] 200 [place] [address] Social History Tobacco Use Types Packs/Day Years Used Date Smoking Tobacco: Never Smokeless Tobacco: Never Alcohol Use Standard Drinks/Week Comments No 0 (1 standard drink = 0.6 oz pur e alcohol) PHQ-2 Answer Date Recorded PHQ-2 Score 0 07/27/2019 Comments No Sex and Gender Information Value Date Recorded Sex Assigned at Female 07/18/2020 1:16 PM INJECTION MOLDING MACHINE TENDER Legal Sex Female 3:23 AM INJECTION MOLDING MACHINE TENDER Gender Identity Female 07/18/2020 1:16 PM INJECTION MOLDING MACHINE TENDER Sexual Orientation Straight 07/18/2020 1: 16 PM INJECTION MOLDING MACHINE TENDER 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 Not on file documented as of this encounter Plan of Treatment Upcoming Encounters Date Type Department Care Team (Late st Contact Info) Description 11/16/2024 1:00 PM CDT Allied Health/Nurse Visit [facility] Urology [address] [phone] Lucero Britt PA-C 500 [place], [place] [address] 11/16/2024 2:45 PM CDT Office Visit [facility] Urology [address] [phone] Vivien Blanchard MD 420 [facility] 394 [place], [place] [address] 11/20/2024 3:30 PM CDT Office Visit [facility] [address] [place] [phone] [place] [address] [place] [address] 11/22/2024 9:15 AM CDT Office Visit [facility] Heart [facility] [address] [facility] [address] [place] [address] Federico Linda MD 4452 [facility] [address] [place] [address] 11/30/2024 10:30 AM CDT Lab [facility] [address] [place] [address] 12/06/2024 10:10 AM CDT Office Visit [facility] 6525 [facility] 200 [place] [phone] Virgie Lobato, PANilesh 909 [place] [address] 12/28/2024 11:00 AM CDT Office Visit [facility] [address] [phone] [place] [address] [place] [address] 01/26/2025 11:30 AM CDT Office Visit [facility] [address] [place] [phone] [place] [address] [place] [address] documented as of this encounter Goals Goal Patient Goal Type Associated Problems Recent Progress Patient-Stated? Author Problem Solving General On track( 019 9:24 AM INJECTION MOLDING MACHINE TENDER) Yes Sheryl Stringer, ELI Note: My Goal: [...] Out COVID-19 2021 2021 04/25/2021 12:41 PM INJECTION MOLDING MACHINE TENDER Rule Out COVID-19 06/14/2022 06/14/2022 06/14/2022 11:30 AM INJECTION MOLDING MACHINE TENDER Rule Out COVID-19 07/03/2022 07/03/2022 07/04/2022 12:27 AM INJECTION MOLDING MACHINE TENDER Rule Out COVID-19 04/01/2024 04/01/2024 04/01/2024 10:07 PM CDT ESBL 07/05/2024 08/24/2024 Rule Out COVID-19 07/16/2024 07/16/2024 07/16/2024 11:04 PM INJECTION MOLDING MACHINE TENDER Rule Out COVID-19 09/01/2024 09/01/2024 09/01/2024 2:05 AM CDT Rule Out COVID-19 09/21/2024 09/21/2024 09/21/2024 3:25 PM CDT Assessment Noted Time PHQ-9 Depression Total Score: 6 07/28/19 7:04 AM INJECTION MOLDING MACHINE TENDER documented as of this encounter Care Teams Fire Prevention Chief Relationship Specialty Start Date End Date Trina Carbajal PA-C [address] [place] [address] PCP - General Family Medicine 05/19/20 04/10/24 [place] [address] [place] [address] PCP - General Family Medicine 04/11/[address] [place] [address] Human Resources Trainer Dietitian, Registered 11/03/17 Federico Linda MD [address] [place] [address] Assigned Heart and Vascular Provider 03/29/20 Connie Blackwell MD [address] [place] [address] Assigned Endocrinology Provider 07/14/20 12/19/20 Ruth Ann Munoz MD AR[place] 7447 [facility] 207 [place] [address] Assigned PCP 07/28/20 08/25/20 Carlos Livingston MD NO INFO AVAILABLE Assigned PCP 08/26/20 08/31/20 Trina Carbajal PA-C [address] [facility] 200 [place] [address] Assigned PCP 09/01/20 12/07/20 Carlos Livingston MD NO INFO AVAILABLE Assigned Endocrinology Provider 12/20/20 12/18/22 Carlos Livingston MD NO INFO AVAILABLE Assigned PCP 12/08/20 12/19/20 Trina Carbajal PA-C [address] [facility] [address] [place] [address] Assigned PCP 12/20/20 04/28/24 Mari Funes, JERRY Personal Advocate & Liaison (PAL) Nurse 01/24/21 06/12/21 Jc Zavala MD [facility] [address] [place] [address] Hematology & Oncology 08/07/21 Barbi Manzo, JERRY Personal Advocate & Liaison (PAL) Family Medicine 12/24/21 07/08/23 [place] [address] [address] Assigned Musculoskeletal Provider 04/04/22 08/19/23 Cristofer Michelle MD [address] [place] [address] Gastroenterology 07/28/22 Vivien Blanchard MD [address] [place] [address] Urology 07/28/22 Sapna Hernandez MD [address] [place] [address] Assigned Nephrology Provider 07/11/22 09/25/22 Vivien Blanchard MD [address] [place] [address] Assigned Surgical Provider 07/25/22 06/30/23 Virgie Lobato PA-C 9 [place] [address] Assigned Nephrology Provider 09/26/22 03/28/24 Teetee Velazquez PA-C [address] [place] [address] Physician Accounts Specialist 05/11/23 Teetee Velazquez PA-C 909 [place] [address] Assigned Surgical Provider 07/01/23 Cora Shah, JERRY Personal Advocate & Liaison (PAL) Nurse 07/09/23 09/29/23 [place] [address] [address] [place], [place] [address] Assigned Musculoskeletal Provider 08/20/23 Cristal Cooper RN Lead Special Class Welder Primary Care - CC 04/27/2404/08 Shannon Rowland [place]-C [address] [place] [phone] Assigned PCP 04/29/24 05/28/24 Lanie Foster, RD, LD [address] [place] [address] Registered Dietitian Nutrition 05/15/24 [place] [address] [place] [address] Assigned PCP 05/29/24 Melonie Caro [facility] [address] [place], [place] [address] Pharmacist Pharmacist 06/05/24 Federico Linda MD [address] [facility] [address] [place] [address] Cardiovascular Disease 06/13/24 Melonie Caro [facility] [address] [place] [address] Assigned MTM Pharmacist 06/29/24 Virgie Lobato PA-C [address] [place] [address] Assigned Nephrology Provider 07/30/24 Barry Ybarra MD [address] [place] [address] Hospitalist Infectious Diseases 08/31/24 Barry Ybarra MD [address] [place] [address] Assigned Infectious Disease Provider 10/27/24 documented as of this encounter
--- OUTSIDE RECORDS SUMMARY | 2024-11-12 17:31 | XMS_ITS | Encounter Summary ---
Author Organization [facility] Address [address] [place] [address] Care Team Providers Care Candy Counter Clerk Name Role Phone Sheryl Stringer Kirk BENITEZ Unavailable [phone] Federico Linda MD Unavailable [phone] Trina Carbajal-C Primary Care Provider Carlos Livingston MD Unavailable Jelena vailable Trina CarbajalC Unavailable [phone] Jc Zavala MD Unavailable [phone] Barbi Manzo RN Unavailable Unavailable Erasto Root MD Unavailable Cristofer Michelle MD Unavailable [phone] Vivien Blanchard MD Unavailable [phone] Sapna Hernandez MD Unavailable Vivien Blanchard MD Unavailable [phone] Virgie Lobato-C Unavailable [phone] Teetee VelazquezC Unavailable Teetee Velazquez-Javi Unavailable Cora Shah RN Unavailable MorenoBrad Unavailable [phone] Mary Garcia MD Primary Care Provider [phone] Cristal Cooper RN Unavailable Shannon Rowland PA-C Unavailable [phone], LD Unavailabl e Mary Garcia MD Unavailable Melonie Caro [facility] Unavailable Federico Linda MD Unavailable Melonie Caro [facility] Unavailable Virgie LobatoC Unavailable Barry Ybarra MD Unavailable Barry Ybarra MD Unavailable Encounter Details Date Type Department Care Team (Late st Contact Info) Description 06/09/[address] [facility] [address] [facility] [address] [place] [address] [facility] MICHELLE [facility] [place] [address] Social History Tobacco Use Types Packs/Day Years Used Date Smoking Tobacco: Never Smokeless Tobacco: Never Alcohol Use Standard Drinks/Week Comments No 0 (1 standard drink = 0.6 oz pur e alcohol) PHQ-2 Answer Date Recorded PHQ-2 Score 0 06/10/2022 Comments No Sex and Gender Information Value Date Recorded Sex Assigned at Female 07/18/2020 1:16 PM EXPERIMENTAL WELDER Legal Sex Female 3:23 AM EXPERIMENTAL WELDER Gender Identity Female 07/18/2020 1:16 PM EXPERIMENTAL WELDER Sexual Orientation Straight 07/18/2020 1: 16 PM EXPERIMENTAL WELDER 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 No / Unsure 06/12/2022 12:31 PM EXPERIMENTAL WELDER documented as of this encounter Plan of Treatment Upcoming Encounters Date Type Department Care Team (Late st Contact Info) Description 11/16/2024 1:00 PM CDT Allied Health/Nurse Visit [facility] Urology [address] [place] [address] Lucero Britt PA-C [address] [place], [place] [phone] 11/16/2024 2:45 PM CDT Office Visit [facility] Urology [address] [address] Vivien Blanchard MD 420 [facility] 394 [place], [place] [address] 11/20/2024 3:30 PM CDT Office Visit [facility] [address] [place] [phone] [place] [id number] [place] [address] 11/22/2024 9:15 AM CDT Office Visit [facility] Heart [facility] [address] [facility] [address] [place] [phone] Federico Linda MD 2589 [facility] [address] [place], [place] [address] 11/30/2024 10:30 AM CDT Lab [facility] [address] [place] [address] 12/06/2024 10:10 AM CDT Office Visit [facility] [address] [phone] Virgie Lobato PA-C 909 [place] [address] 12/28/2024 11:00 AM CDT Office Visit [facility] [address] [phone] Barry Ybarra MD [address] [place] [address] 01/26/2025 11:30 AM CDT Office Visit [facility] [address] [place] [phone] [place] [address] [place] [address] documented as of this encounter Goals Goal Patient Goal Type Associated Problems Recent Progress Patient-Stated? Author Problem Solving General On track( 019 9:24 AM EXPERIMENTAL WELDER) Yes Sheryl Stringer RD Note: My Goal: [...] Out COVID-19 06/14/2022 06/14/2022 06/14/2022 11:30 AM EXPERIMENTAL WELDER Rule Out COVID-19 07/03/2022 07/03/2022 07/04/2022 12:27 AM EXPERIMENTAL WELDER Rule Out COVID-19 04/01/2024 04/01/2024 04/01/2024 10:07 PM CDT ESBL 07/05/2024 08/24/2024 Rule Out COVID-19 07/16/2024 07/16/2024 07/16/2024 11:04 PM EXPERIMENTAL WELDER Rule Out COVID-19 09/01/2024 09/01/2024 09/01/2024 2:05 AM CDT Rule Out COVID-19 09/21/2024 09/21/2024 09/21/2024 3:25 PM CDT Assessment Noted Time PHQ-9 Depression Total Score: 2 04/16/20 3:08 PM EXPERIMENTAL WELDER documented as of this encounter Care Teams Candy Counter Clerk Relationship Specialty Start Date End Date Trina Carbajal PA-C [address] [place] [address] PCP - General Family Medicine 05/19/20 04/10/24 [place] [address] [place] [address] PCP - General Family Medicine 04/11/[address] [place] [address] Saw Offbearer Dietitian, Registered 11/03/17 Federico Linda MD [address] [place] [address] Assigned Heart and Vascular Provider 03/29/20 Carlos Livingston MD NO INFO AVAILABLE Assigned Endocrinology Provider 12/20/20 12/18/22 Trina Carbajal PA-C [address] [place] [address] Assigned PCP 12/20/20 04/28/24 Jc Zavala MD [facility] [address] [place] [address] Hematology & Oncology 08/07/21 Barbi Manzo, RN Personal Advocate & Liaison (PAL) Family Medicine 12/24/21 07/08/23 [place] [address] [address] [place] [address] Assigned Musculoskeletal Provider 04/04/22 08/19/23 Cristofer Michelle MD [address] [place] [address] [address] [place] [address] Gastroenterology 07/28/22 Vivien Blanchard MD 420 [facility] [address] [place], [place] 6848[address] Urology 07/28/22 Sapna Hernandez MD 420 [facility] [address] [place], [place] 157745 Assigned Nephrology Provider 07/11/22 09/25/22 Vivien Blanchard MD 420 [facility] [address] [place], [place] [address] Assigned Surgical Provider 07/25/22 06/30/23 Virgie Lobato PA-C [address] [place] [address] 527175 Assigned Nephrology Provider 09/26/22 03/28/24 Teetee Velazquez PA-C 909 [place] [address] Physician Straightedge Machine Operator Helper 05/11/23 Teetee Velazquez PAAnthonyC [address] [place] [address] Assigned Surgical Provider 07/01/23 Cora Shah, JERRY Personal Advocate & Liaison (PAL) Nurse 07/09/23 09/29/23 [place] [address] [address] 747837 Assigned Musculoskeletal Provider 08/20/23 Cristal Cooper RN Lead Noodle Press Operator Primary Care - CC 04/27/2404/08 Shannon Rowland PA-C [address] [place] [address] Assigned PCP 04/29/24 05/28/24 Lanie Foster, RD, LD [address] [place] [id number] Registered Dietitian Nutrition 05/15/24 [place] [address] [place] [address] Assigned PCP 05/29/24 Melonie Caro RPH [address] [place], [place] [address] Pharmacist Pharmacist 06/05/24 Federico Linda MD [address] [place] [address] Cardiovascular Disease 06/13/24 Melonie Caro [facility] [address] [place] [address] Assigned MTM Pharmacist 06/29/24 Virgie Lobato, PAAnthonyC [address] [place] [address] 851535 Assigned Nephrology Provider 07/30/24 Barry Ybarra MD [address] [place] [address] Hospitalist Infectious Diseases 08/31/24 Barry Ybarra MD [address] [place] [address] Assigned Infectious Disease Provider 10/27/24 documented as of this encounter
--- OUTSIDE RECORDS SUMMARY | 2024-11-12 17:31 | XMS_ITS | Encounter Summary ---
Author Organization [facility] Address [address] [place] [address] Care Team Providers Care Manufacturing Leader Name Role Phone Sheryl Stringer Kirk BENITEZ Unavailable [phone] Federico Linda MD Unavailable [phone] Trina Carbajal PA-C Primary Care Provider + [phone] Connie Blackwell MD Unavailable [phone] Ruth Ann Munoz MD Unavailable + Carlos Livingston MD Unavailable Jelena vailable Trina Carbajal PA-C Unavailable [phone] Carlos Livingston MD Unavailable Jelena vailable Carlos Livingston MD Unavailable Jelena vailable Trina Carbajal PA-C Unavailable [phone] Mari Funes RN Unavailable Unavailable Jc Zavala MD Unavailable [phone] Barbi Manzo RN Unavailable Unavailable Erasto Root MD Unavailable Cristofer Michelle MD Unavailable [phone] Vivien Blanchard MD Unavailable [phone] Sapna Hernandez MD Unavailable Vivien Blanchard MD Unavailable Virgie LobatoC Unavailable [phone] Teetee Velazquez-C Unavailable [phone] Teetee Velazquez-C Unavailable [phone] Cora Shah RN Unavailable Brad Mayer DO Unavailable [phone] Mary Garcia MD Primary Care Provider Cristal Cooper RN Unavailable Shannon Rowland-C Unavailable [phone], LD Unavailabl e Mary Garcia MD Unavailable Melonie Caro [facility] Unavailable Federico Linda MD Unavailable Melonie Caro [facility] Unavailable Virgie viramontes PA-C Unavailable [phone] Barry Ybarra MD Unavailable Barry Ybarra MD Unavailable Reason for Visit * Reason Comments Medication Refill Encounter Details Date Type Department Care Team (Late st Contact Info) Description 08/08/2020 [facility] [address] [address] Jewel Kendrick MD [address] [address] Medication Refill Social History Tobacco Use Types Packs/Day Years Used Date Smoking Tobacco: Never Smokeless Tobacco: Never Alcohol Use Standard Drinks/Week Comments No 0 (1 standard drink = 0.6 oz pur e alcohol) PHQ-2 Answer Date Recorded PHQ-2 Score 0 07/27/2019 Comments No Sex and Gender Information Value Date Recorded Sex Assigned at Female 07/18/2020 1:16 PM CELL PLASTERER Legal Sex Female 3:23 AM CELL PLASTERER Gender Identity Female 07/18/2020 1:16 PM CELL PLASTERER Sexual Orientation Straight 07/18/2020 1: 16 PM CELL PLASTERER 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 Not on file documented as of this encounter Miscellaneous Notes * Telephone Encounter - Leo Borjas - 08/27/2020 9:44 AM CDT not seen at [facility] * Telephone Encounter - Tamra Mccall - 08/08/2020 2:50 PM CST Refill request - not our patient PLASTERER documented in this encounter Plan of Treatment Upcoming Encounters Date Type Department Care Team (Late st Contact Info) Description 11/16/2024 1:00 PM CDT Allied Health/Nurse Visit [facility] [address] [address] Lucero Britt PA-C 500 [place], [place] 5[address] 11/16/2024 2:45 PM CDT Office Visit [facility] [address] [address] Vivien Blanchard MD 420 [facility] 394 [place], [place] [address] 11/20/2024 3:30 PM CDT Office Visit [facility] [address] [place] [phone] [place] [address] [place] [address] 11/22/2024 9:15 AM CDT Office Visit [facility] Heart [facility] [address] [facility] [address] [place] [phone] Federico Linda MD 6405 [facility] [address] [place], [place] [address] 11/30/2024 10:30 AM CDT Lab [facility] [address] [place] [phone] 12/06/2024 10:10 AM CDT Office Visit [facility] 6525 [facility] 200 [place] [phone] Virgie Lobato, PA-C [address] [place] [address] 12/28/2024 11:00 AM CDT Office Visit [address] [phone] [place] [address] [place] [address] 01/26/2025 11:30 AM CDT Office Visit [facility] [address] [place] [phone] [place] [address] [place], [place] 0115[address] documented as of this encounter Goals Goal Patient Goal Type Associated Problems Recent Progress Patient-Stated? Author Problem Solving General On track( 9:24 AM CELL PLASTERER) Yes Sheryl Stringer RD Note: My Goal: [...] Out COVID-19 2021 2021 04/25/2021 12:41 PM CELL PLASTERER Rule Out COVID-19 06/14/2022 06/14/2022 06/14/2022 11:30 AM CELL PLASTERER Rule Out COVID-19 07/03/2022 07/03/2022 07/04/2022 12:27 AM CELL PLASTERER Rule Out COVID-19 04/01/2024 04/01/2024 04/01/2024 10:07 PM CDT ESBL 07/05/2024 08/24/2024 Rule Out COVID-19 07/16/2024 07/16/2024 07/16/2024 11:04 PM CELL PLASTERER Rule Out COVID-19 09/01/2024 09/01/2024 09/01/2024 2:05 AM CDT Rule Out COVID-19 09/21/2024 09/21/2024 09/21/2024 3:25 PM CDT Assessment Noted Time PHQ-9 Depression Total Score: 6 07/28/19 20 7:04 AM CELL PLASTERER documented as of this encounter Care Teams Manufacturing Leader Relationship Specialty Start Date End Date Trina Carbajal PA-C [address] [place] [address] PCP - General Family Medicine 05/19/20 04/10/24 [place] [address] [place] [address] PCP - General Family Medicine 04/11/[address] [place] [address] Gypsum Calciner Dietitian, Registered 11/03/17 Federico Linda MD [address] [place] [address] Assigned Heart and Vascular Provider 03/29/20 Connie Blackwell MD [address] [place], [place] 87[address]70 Assigned Endocrinology Provider 07/14/20 12/19/20 Ruth Ann Munoz MD [place] [address] [place] [address] Assigned PCP 07/28/20 08/25/20 Carlos Livingston MD NO INFO AVAILABLE Assigned PCP 08/26/20 08/31/20 Trina Carbajal, PA-C [address] [place] [address] Assigned PCP 09/01/20 12/07/20 Carlos Livingston MD NO INFO AVAILABLE Assigned Endocrinology Provider 12/20/20 12/18/22 Carlos Livingston MD NO INFO AVAILABLE Assigned PCP 12/08/20 12/19/20 Trina Carbajal PA-C 6405 [facility] [address] [place] 82[address] Assigned PCP 12/20/20 04/28/24 Mari Funes, JERRY Personal Advocate & Liaison (PAL) Nurse 01/24/21 06/12/21 Jc Zavala MD [facility] [address] [place] [address] Hematology & Oncology 08/07/21 Barbi Manzo, JERRY Personal Advocate & Liaison (PAL) Family Medicine 12/24/21 07/08/23 [place] [address] [place] [address] Assigned Musculoskeletal Provider 04/04/22 08/19/23 Cristofer Michelle MD [address] [place], [place] [address]B 1E [place] [address] Gastroenterology 07/28/22 Vivien Blanchard MD [address] [place] [address] 394 [place], [place] 9[address] Urology 07/28/22 Sapna Hernandez MD [address] [place] [address] 394 [place], [place] 6060[address] Assigned Nephrology Provider 07/11/22 09/25/22 Vivien Blanchard MD [address] [place] [address] 007345 Assigned Surgical Provider 07/25/22 06/30/23 Virgie Lobato PA-C [address] [place] [address] 150155 Assigned Nephrology Provider 09/26/22 03/28/24 Teetee Velazquez PA-C [address] [place] [address] 222125 Physician Guard Driver 05/11/23 Teetee Velazquez PA-C [address] [place] [address] [phone] Assigned Surgical Provider 07/01/23 Cora Shah RN Personal Advocate & Liaison (PAL) Nurse 07/09/23 09/29/23 [place] [address] 329917 Assigned Musculoskeletal Provider 08/20/23 Cristal Cooper, JERRY Lead Bottle Packing Machine Cleaner Primary Care - CC 04/27/2404/08 Shannon Rowland PA-C [address] [place] [address] Assigned PCP 04/29/24 05/28/24 Lanie Foster, RD, LD [address] [address] Registered Dietitian Nutrition 05/15/24 [place] [address] [place] [address] Assigned PCP 05/29/24 Melonie Caro [facility] [address] [place] [address] Pharmacist Pharmacist 06/05/24 Federico Linda MD 6405 [facility] [address] [place] [address] Cardiovascular Disease 06/13/24 Melonie Caro [facility] [address] [place] [address] Assigned MTM Pharmacist 06/29/24 Virgie Lobato, PA-C [address] [place] [address] Assigned Nephrology Provider 07/30/24 Barry Ybarra MD [address] [place] [address] Hospitalist Infectious Diseases 08/31/24 Barry Ybarra MD [address] [place] [address] Assigned Infectious Disease Provider 10/27/24 documented as of this encounter
--- OUTSIDE RECORDS SUMMARY | 2024-11-12 17:31 | XMS_ITS | Encounter Summary ---
Author Organization [facility] Address [address] [place] [address] Care Team Providers Care Zinc Plate Cutter Name Role Phone Sheryl Stringer RD Unavailable [phone] Federico Linda MD Unavailable [phone] Jc Zavala MD Unavailable [phone] Cristofer Michelle MD Unavailable [phone] Vivien Blanchard MD Unavailable Teetee Velazquez-Javi Unavailable [phone] Teetee Velazquez PA-C Unavailable Brad Mayer DO Unavailable [phone] Mary Garcia MD Primary Care Provider Lanie Foster RD, LD Unavailabl e Mary Garcia MD Unavailable Melonie Caro [facility] Unavailable Federico Linda MD Unavailable [phone] VaniaMelonie duarte [facility] Unavailable [phone] Virgie Lobato PA-C Unavailable [phone] Barry Ybarra MD Unavailable [phone] Barry Ybarra MD Unavailable [phone] Encounter Details Date Type Department Care Team (Late st Contact Info) Description 07/11/2024 MyC Medical Advice [facility] [address] [address] Stacia Curtis RN Social History [...] an overnight long term, or couch-surfing.) Yes 04/29/2024 Are you worried [...] Sex Assigned at Female 07/18/2020 1:16 PM SLATE CUTTER Legal Sex Female 3:23 AM SLATE CUTTER Gender Identity Female 07/18/2020 1:16 PM SLATE CUTTER Sexual Orientation Straight 07/18/2020 1: 16 PM SLATE CUTTER 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 Not on file documented as of this encounter Plan of Treatment Upcoming Encounters Date Type Department Care Team (Late st Contact Info) Description 11/16/2024 1:00 PM CDT Allied Health/Nurse Visit [facility] Urology [address] [address] Lucero Britt PA-C 500 [place], [place] [address] 11/16/2024 2:45 PM CDT Office Visit [facility] Urology [address] 4th [place] [phone] Vivien Blanchard MD [address] 714225 11/20/2024 3:30 PM CDT Office Visit [address] [address] [place] [address] [place] [address] 11/22/2024 9:15 AM CDT Office Visit [facility] Heart [facility] [address] [facility] 140 [place] [address] Federico Linda MD 6405 [facility] [address] [place] [address] 11/30/2024 10:30 AM CDT Lab [facility] [address] [place] [phone] 12/06/2024 10:10 AM CDT Office Visit [facility] 6525 [facility] 200 [place] [address] Virgie Lobato, PA-C [address] [place] [address] 12/28/2024 11:00 AM CDT Office Visit [facility] 2945 [facility] 200 [place] [address] Barry Ybarra MD [address] [address] 01/26/2025 11:30 AM CDT Office [facility] [address] [place] [address] [place] [address] [place] [address] documented as of this encounter Goals Goal Patient Goal Type Associated Problems Recent Progress Patient-Stated? Author Problem Solving General On track( 019 9:24 AM SLATE CUTTER) Yes Sheryl Stringer RD Note: My [...] Out COVID-19 07/16/2024 07/16/2024 07/16/2024 11:04 PM SLATE CUTTER Rule Out COVID-19 09/01/2024 09/01/2024 09/01/2024 2:05 AM CDT Rule Out COVID-19 09/21/2024 09/21/2024 09/21/2024 3:25 PM CDT Assessment Noted Time PHQ-9 Depression Total Score: 3 05/02/20 24 1:39 PM SLATE CUTTER documented as of this encounter Care Teams Zinc Plate Cutter Relationship Specialty [place] [address] [place] [address] PCP - General Family Medicine 04/11/[address] [place] [id number] Airplane Cabin Attendant Dietitian, Registered 11/03/17 Federico Linda MD 6405 [facility] [address] [place], [place] 6430[address] Assigned Heart and Vascular Provider 03/29/20 Jc Zavala MD [facility] [address] [place], [place] [phone] Hematology & Oncology 08/07/21 Cristofer Michelle MD [address] [place] [address] Gastroenterology 07/28/22 Vivien Blanchard MD [address] [place] [address] 394 [place] [address] Urology 07/28/22 eTetee Velazquez PA-C [address] [place] [address] Physician Flexible Machining System Machinist 05/11/23 Teetee Velazquez PA-C [address] [place] [address] 010855 Assigned Surgical Provider 07/01/23 [place] [address] [facility] 300 [place] [address] Assigned Musculoskeletal Provider 08/20/23 Lanie Foster, RD, LD [address] [place] [address] Registered Dietitian Nutrition 05/15/24 [place] [address] [place] [address] Assigned PCP 05/29/24 Melonie Caro [facility] [address] [place], [place] [address] Pharmacist Pharmacist 06/05/24 Federico Linda MD [address] [facility] [address] [place] [address] Cardiovascular Disease 06/13/24 Melonie Caro [facility] [address] [place] [address] Assigned MTM Pharmacist 06/29/24 Virgie Lobato PA-C [address] [place] [address] Assigned Nephrology Provider 07/30/24 Barry Ybarra MD [facility] [address] [address] Hospitalist Infectious Diseases 08/31/24 Barry Ybarra MD [facility] [address] [address] Assigned Infectious Disease Provider 10/27/24 documented as of this encounter
--- OUTSIDE RECORDS SUMMARY | 2024-11-12 17:31 | XMS_ITS | Encounter Summary ---
Author Organization [facility] Address [address] [place] [address] Care Team Providers Care County Ordinary Name Role Phone Sheryl Stringer RD Unavailable [phone] Federico Linda MD Unavailable [phone] Jc Zavala MD Unavailable [phone] Cristofer Michelle MD Unavailable Vivien Blanchard MD Unavailable [phone] Teetee Velazquez-Javi Unavailable [phone] Teetee Velazquez PA-C Unavailable Brad Mayer DO Unavailable [phone] Mary Garcia MD Primary Care Provider [phone], LD Unavailabl e Mary Garcia MD Unavailable Melonie Caro [facility] Unavailable [phone] Federico Linda MD Unavailable [phone] VaniaLiborioMelonie [facility] Unavailable [phone] Virgie Lobato PA-C Unavailable [phone] Barry Ybarra MD Unavailable [phone] Barry Ybarra MD Unavailable [phone] Encounter Details Date Type Department Care Team (Late st Contact Info) Description 07/03/2024 MyC Medical Advice [facility] [place] [address] [facility] [address] [place] [address] Teetee Velazquez PA-C 909 [place] [address] Social History Tobacco Use Types [...] in an overnight longterm, or couch-surfing.) Yes 04/29/2024 Are you worried [...] Sex Assigned at Female 07/18/2020 1:16 PM VARNISH INSPECTOR Legal Sex Female 3:23 AM VARNISH INSPECTOR Gender Identity Female 07/18/2020 1:16 PM VARNISH INSPECTOR Sexual Orientation Straight 07/18/2020 1: 16 PM VARNISH INSPECTOR 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 Not on file documented as of this encounter Plan of Treatment Upcoming Encounters Date Type Department Care Team (Late st Contact Info) Description 11/16/2024 1:00 PM CDT Allied Health/Nurse Visit [facility] [address] [address] Lucero Britt PA-C 500 [place], [place] [address] 11/16/2024 2:45 PM CDT Office Visit [facility] Urology [address] [address] Vivien Blanchard MD 420 [facility] 394 [place] [address] 11/20/2024 3:30 PM CDT Office Visit [facility] [address] [place] [phone] [place] [address] [place], [place] [address] 11/22/2024 9:15 AM CDT Office Visit [facility] Heart [facility] [address] [facility] [address] [place] [phone] Federico Linda MD 6405 [facility] [address] [place], [place] [address] 11/30/2024 10:30 AM CDT Lab [facility] Laboratory [address] [place] [phone] 12/06/2024 10:10 AM CDT Office Visit [facility] 6525 [facility] 200 [place] [address] Virgie Lobato, PA-C [address] [place] [address] 12/28/2024 11:00 AM CDT Office Visit [address] [phone] Barry Ybarra MD [address] [place] [address] 01/26/2025 11:30 AM CDT Office Visit [facility] [address] [place] [phone] [place] [address] [place], [place] 0[address] documented as of this encounter Goals Goal Patient Goal Type Associated Problems Recent Progress Patient-Stated? Author Problem Solving General On track( 019 9:24 AM VARNISH INSPECTOR) Yes Sheryl Stringer, ELI Note: My Goal: [...] Out COVID-19 07/16/2024 07/16/2024 07/16/2024 11:04 PM VARNISH INSPECTOR Rule Out COVID-19 09/01/2024 09/01/2024 09/01/2024 2:05 AM CDT Rule Out COVID-19 09/21/2024 09/21/2024 09/21/2024 3:25 PM CDT Assessment Noted Time PHQ-9 Depression Total Score: 3 05/02/20 24 1:39 PM VARNISH INSPECTOR documented as of this encounter Care Teams County Ordinary Relationship Specialty [place] [address] [place] [address] PCP - General Family Medicine 04/11/24 Sheryl Stringer, ELI [address] [place] [address] Weather Forecaster Dietitian, Registered 11/03/17 Federico Linda MD 6405 [facility] [address] [place] [address] Assigned Heart and Vascular Provider 03/29/20 Jc Zavala MD [facility] [address] [place] [address] Hematology & Oncology 08/07/21 Cristofer Michelle MD 516 [facility] PM[address] 1E [place], [place] [address] Gastroenterology 07/28/22 Vivien Blanchard MD 420 [facility]MC 394 [place], [place] [address] Urology 07/28/22 Teetee Velazquez PA-C 909 [place] [address] Physician Professor Of Historical Theology 05/11/23 Teetee Velazquez PA-C 909 [place] [address] Assigned Surgical Provider 07/01/23 [place] [address] [address] , [address] [id number] Assigned Musculoskeletal Provider 08/20/23 Lanie Foster, RD, LD [address] [place] 409885 Registered Dietitian Nutrition 05/15/24 [place] [address] [place] [address] Assigned PCP 05/29/24 Melonie Caro [facility] [address] [place] [address] Pharmacist Pharmacist 06/05/24 Federico Linda MD [address] [place] [address] Cardiovascular Disease 06/13/24 Melonie Caro [facility] [address] [place] [address] Assigned MTM Pharmacist 06/29/24 Virgie Lobato, PAAnthonyC [address] [place] [address] Assigned Nephrology Provider 07/30/24 Barry Ybarra MD [address] [place] [address] Hospitalist Infectious Diseases 08/31/24 Barry Ybarra MD [address] [place] [address] Assigned Infectious Disease Provider 10/27/24 documented as of this encounter
--- OUTSIDE RECORDS SUMMARY | 2024-11-12 17:31 | XMS_ITS | Encounter Summary ---
Author Organization [facility] Address [address] [place] [address] Care Team Providers Care Client Manager Large Law Name Role Phone Sheryl Stringer Kirk BENITEZ Unavailable [phone] Federico Linda MD Unavailable [phone] Trina Carbajal-C Primary Care Provider Carlos Livingston MD Unavailable Jelena vailable Trina CarbajalC Unavailable [phone] Jc Zavala MD Unavailable [phone] Barbi Manzo RN Unavailable Unavailable Erasto Root MD Unavailable Cristofer Michelle MD Unavailable [phone] Vivien Blanchard MD Unavailable [phone] Sapna Hernandez MD Unavailable Vivien Blanchard MD Unavailable [phone] Virgie Lobato-C Unavailable [phone] Teetee Velazquez PA-C Unavailable Teetee Velazquez-Javi Unavailable Cora Shah RN Unavailable MorenoBrad Unavailable [phone] Mary Garcia MD Primary Care Provider [phone] Cristal Cooper RN Unavailable Shannon Rowland PA-C Unavailable [phone], LD Unavailabl e Mary Garcia MD Unavailable Melonie Caro [facility] Unavailable Federico Linda MD Unavailable Melonie Caro [facility] Unavailable Virgie Lobato PA-C Unavailable [phone] Barry Ybarra MD Unavailable [phone] Barry Ybarra MD Unavailable Encounter Details Date Type Department Care Team (Late st Contact Info) Description 07/07/2022 [facility] Medical Advice [facility] Specialty [address] [address] Sapna Hernandez MD [address] [place] [address] Social History Tobacco Use Types Packs/Day Years Used Date Smoking Tobacco: Never Smokeless Tobacco: Never Alcohol Use Standard Drinks/Week Comments No 0 (1 standard drink = 0.6 oz pur e alcohol) PHQ-2 Answer Date Recorded PHQ-2 Score 1 06/19/2022 Comments No Sex and Gender Information Value Date Recorded Sex Assigned at Female 07/18/2020 1:16 PM LOCK AND DAM OPERATOR Legal Sex Female 3:23 AM LOCK AND DAM OPERATOR Gender Identity Female 07/18/2020 1:16 PM LOCK AND DAM OPERATOR Sexual Orientation Straight 07/18/2020 1: 16 PM LOCK AND DAM OPERATOR 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 No / Unsure 07/03/2022 9:33 PM LOCK AND DAM OPERATOR documented as of this encounter Plan of Treatment Upcoming Encounters Date Type Department Care Team (Late st Contact Info) Description 11/16/2024 1:00 PM CDT Allied Health/Nurse Visit [facility] Urology [address] [place] [address] Lucero Britt PA-C 500 [place], [place] [phone] 11/16/2024 2:45 PM CDT Office Visit [facility] Urology [address] [phone] Vivien Blanchard MD 420 [facility] 394 [place], [place] [address] 11/20/2024 3:30 PM CDT Office Visit [address] [phone] Mary Garcia MD [address] [place] [address] 11/22/2024 9:15 AM CDT Office Visit [facility] Heart [facility] [address] [facility] [address] [place] [phone] Federico Linda MD 6003 [facility] [address] [place], [place] [address] 11/30/2024 10:30 AM CDT Lab [facility] Laboratory [address] [place] [address] 12/06/2024 10:10 AM CDT Office Visit [facility] [address] [address] Virgie Lobato, PANilesh [address] [place] [address] 12/28/2024 11:00 AM CDT Office Visit [facility] [address] [place] [phone] Barry Ybarra MD [address] [place] [address] 01/26/2025 11:30 AM CDT Office Visit [facility] [address] [place] [address] [place] [address] [place] [address] documented as of this encounter Goals Goal Patient Goal Type Associated Problems Recent Progress Patient-Stated? Author Problem Solving General On track( 019 9:24 AM LOCK AND DAM OPERATOR) Yes Sheryl Stringer RD Note: My [...] Out COVID-19 07/16/2024 07/16/2024 07/16/2024 11:04 PM LOCK AND DAM OPERATOR Rule Out COVID-19 09/01/2024 09/01/2024 09/01/2024 2:05 AM CDT Rule Out COVID-19 09/21/2024 09/21/2024 09/21/2024 3:25 PM CDT Assessment Noted Time PHQ-9 Depression Total Score: 4 06/19/19 23 11:34 AM LOCK AND DAM OPERATOR documented as of this encounter Care Teams Client Manager Large Law Relationship Specialty Start Date End Date Trina Carbajal PA-C [address] [place] [address] PCP - General Family Medicine 05/19/20 04/10/24 [place] [address] [place] [address] PCP - General Family Medicine 04/11/[address] [place] [address] Buzzsaw Operator Dietitian, Registered 11/03/17 Federico Linda MD [address] [place] [address] Assigned Heart and Vascular Provider 03/29/20 Carlos Livingston MD NO INFO AVAILABLE Assigned Endocrinology Provider 12/20/20 12/18/22 Trina Carbajal PA-C [address] [place] [address] Assigned PCP 12/20/20 04/28/24 Jc Zavala MD [place] [facility] [address] [place] [address] Hematology & Oncology 08/07/21 Barbi Manzo, JERRY Personal Advocate & Liaison (PAL) Family Medicine 12/24/21 07/08/23 [place] [address] [address] [address] Assigned Musculoskeletal Provider 04/04/22 08/19/23 Cristofer Michelle MD [address] [place] [address] Gastroenterology 07/28/22 Vivien Blanchard MD [address] [place] [address] Urology 07/28/22 Sapna Hernandez MD [address] [address] Assigned Nephrology Provider 07/11/22 09/25/22 Vivien Blanchard MD [address] [place] [address] 313005 Assigned Surgical Provider 07/25/22 06/30/23 Virgie Lobato PA-C 909 [place], [place] [address] Assigned Nephrology Provider 09/26/22 03/28/24 Teetee Velazquez PA-C 909 [place], [place] 887[address] Physician Technical Support Analyst 05/11/23 Teetee Velazquez PA-C 909 [place] [address] Assigned Surgical Provider 07/01/23 Cora Shah, RN Personal Advocate & Liaison (PAL) Nurse 07/09/23 09/29/23 [place] [address] [place] , [facility] 300 [place], [place] [address] Assigned Musculoskeletal Provider 08/20/23 Cristal Cooper RN Lead Forensic Manager Primary Care - CC 04/27/2404/08 Shannon Rowland PA-C [address] [place] [phone] Assigned PCP 04/29/24 05/28/24 Lanie Foster, RD, LD [address] [place] 719175 Registered Dietitian Nutrition 05/15/24 [place] [address] [place] [address] Assigned PCP 05/29/24 Melonie Caro [facility] [address] [place], [place] [phone] Pharmacist Pharmacist 06/05/24 Federico Linda MD [address] [facility] [address] [place] 367425 Cardiovascular Disease 06/13/24 Melonie Caro [facility] [address] [place] [address] Assigned MTM Pharmacist 06/29/24 Virgie Lobato PA-C [address] [place] [address] Assigned Nephrology Provider 07/30/24 Barry Ybarra MD [address] [place] [address] Hospitalist Infectious Diseases 08/31/24 Barry Ybarra MD [address] [place] [address] Assigned Infectious Disease Provider 10/27/24 documented as of this encounter
--- OUTSIDE RECORDS SUMMARY | 2024-11-12 17:31 | XMS_ITS | Encounter Summary ---
Author Organization [place] Address [address] [place] [address] Care Team Providers Care Mushroom Sorter Grader Name Role Phone Sheryl Stringer Kirk BENITEZ Unavailable [phone] Federico Linda MD Unavailable [phone] Trina Carbajal-C Primary Care Provider Carlos Livingston MD Unavailable Jelena vailable Trina CarbajalC Unavailable [phone] Jc Zavala MD Unavailable [phone] Barbi Manzo RN Unavailable Unavailable Erasto Root MD Unavailable Cristofer Michelle MD Unavailable [phone] Vivien Blanchard MD Unavailable [phone] Sapna Hernandez MD Unavailable Vivien Blanchard MD Unavailable [phone] Virgie Lobato-C Unavailable [phone] Teetee VelazquezC Unavailable Teetee Velazquez-C Unavailable [phone] Cora Shah RN Unavailable Brad Mayer Unavailable [phone] Mary Garcia MD Primary Care Provider [phone] Cristal Cooper RN Unavailable Shannon RowlandC Unavailable [phone], LD Unavailabl e Mary Garcia MD Unavailable Melonie Caro [facility] Unavailable Federico Linda MD Unavailable Melonie Caro [facility] Unavailable Virgie LobatoC Unavailable Barry Ybarra MD Unavailable Barry Ybarra MD Unavailable Reason for Visit * Reason Onset Date Comments Patient/info Update 06/20/2022 JERRY PAL - med ications Encounter Details Date Type Department Care Team (Late st Contact Info) Description 06/20/2022 [facility] Medical [address] [address] Trina Carbajal PA-C [address] [facility] 200 [place] [address] Patient/info Update (JERRY PAL - medications ) Social History Tobacco Use Types Packs/Day Years Used Date Smoking Tobacco: Never Smokeless Tobacco: Never Alcohol Use Standard Drinks/Week Comments No 0 (1 standard drink = 0.6 oz pur e alcohol) PHQ-2 Answer Date Recorded PHQ-2 Score 1 06/19/2022 Comments No Sex and Gender Information Value Date Recorded Sex Assigned at Female 07/18/2020 1:16 PM SEMI TRUCK DRIVER Legal Sex Female 3:23 AM SEMI TRUCK DRIVER Gender Identity Female 07/18/2020 1:16 PM SEMI TRUCK DRIVER Sexual Orientation Straight 07/18/2020 1: 16 PM SEMI TRUCK DRIVER 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 No / Unsure 06/19/2022 1:48 PM SEMI TRUCK DRIVER documented as of this encounter Miscellaneous Notes * Telephone Encounter - Barbi Manzo RN - 06/23/2022 1:19 PM CST Trina Carbajal PA-C- See francis sweeney Patient reports she already had medications that were prescribed during visit on Wednesday06/19/22 andhas been taking them: omeprazole triamterene-HCTZ Barbi Asher RN, BSN, PHN [facility] TRUCK DRIVER * Telephone Encounter - Cora Shah RN - 06/22/2022 8:41 AM SEMI TRUCK DRIVER See my chart Cora Shah Registered Nurse, PAL (Patient Advocate Liason) [facility] [phone] TRUCK DRIVER documented in this encounter Plan of Treatment Upcoming Encounters Date Type Department Care Team (Late st Contact Info) Description 11/16/2024 1:00 PM CDT Allied Health/Nurse Visit [facility] Urology [address] [place] [address] Lucero Britt PA-C [address] [place] [address] 294585 11/16/2024 2:45 PM CDT Office Visit [facility] Urology [facility] 909 [facility] 4th [place] [phone] Vivien Blanchard MD 420 [facility] 394 [place] [address] 11/20/2024 3:30 PM CDT Office Visit [facility] [address] [place] [phone] [place] [address] [place] [address] 11/22/2024 9:15 AM CDT Office Visit [facility] Heart [facility] [address] [facility] [address] [place] [address] Federico Linda MD 6404 [facility] [address] [place], [place] [address] 11/30/2024 10:30 AM CDT Lab [facility] Laboratory [address] [place] [phone] 12/06/2024 10:10 AM CDT Office Visit [facility] Specialty [facility] 6525 [facility] 200 [place] [phone] Virgie Lobato, PA-C 909 [place] [address] 12/28/2024 11:00 AM CDT Office Visit [facility] 2945 [facility] [address] [place] [phone] [place] [address] [place] [address] 200 [place] [address] 01/26/2025 11:30 AM CDT Office Visit [address] [place] [address] [place] [address] [place] [address] documented as of this encounter Goals Goal Patient Goal Type Associated Problems Recent Progress Patient-Stated? Author Problem Solving General On track( 019 9:24 AM SEMI TRUCK DRIVER) Yes Sheryl Stringer RD Note: My [...] Out COVID-19 07/03/2022 07/03/2022 07/04/2022 12:27 AM SEMI TRUCK DRIVER Rule Out COVID-19 04/01/2024 04/01/2024 04/01/2024 10:07 PM CDT ESBL 07/05/2024 08/24/2024 Rule Out COVID-19 07/16/2024 07/16/2024 07/16/2024 11:04 PM SEMI TRUCK DRIVER Rule Out COVID-19 09/01/2024 09/01/2024 09/01/2024 2:05 AM CDT Rule Out COVID-19 09/21/2024 09/21/2024 09/21/2024 3:25 PM CDT Assessment Noted Time PHQ-9 Depression Total Score: 4 06/19/19 23 11:34 AM SEMI TRUCK DRIVER documented as of this encounter Care Teams Mushroom Sorter Grader Relationship Specialty Start Date End Date Trina Carbajal PA-C [address] [facility] [address] [place] [address] PCP - General Family Medicine 05/19/20 04/10/24 [place] [address] [place] [address] PCP - General Family Medicine 04/11/[address] [place] [address] [employer] Specialist Dietitian, Registered 11/03/17 Federico Linda MD [address] [place] [address] Assigned Heart and Vascular Provider 03/29/20 Carlos Livingston MD NO INFO AVAILABLE Assigned Endocrinology Provider 12/20/20 12/18/22 Trina Carbajal, PA-C [address] [place] [address] Assigned PCP 12/20/20 04/28/24 Jc Zavala MD [place] [facility] [place] [address] [place], [place] [address] Hematology & Oncology 08/07/21 Barbi Manzo, JERRY Personal Advocate & Liaison (PAL) Family Medicine 12/24/21 07/08/23 [place] [address] [place] [address] Assigned Musculoskeletal Provider 04/04/22 08/19/23 Cristofer Michelle MD 6 [facility] PMB 1E [place] [address] Gastroenterology 07/28/22 Vivien Blanchard MD 420 [facility] 394 [place], [place] [phone] Urology 07/28/22 Sapna Hernandez MD [address] [place] [address] 447755 Assigned Nephrology Provider 07/11/22 09/25/22 Vivien Blanchard MD [address] [place] [address] 744965 Assigned Surgical Provider 07/25/22 06/30/23 Virgie Lobato PA-C [address] [place] [address] Assigned Nephrology Provider 09/26/22 03/28/24 Teetee Velazquez PA-C [address] [place] [address] Physician Associate Professor Of Media Arts 05/11/23 Teetee Velazquez PA-C [address] [place] [address] Assigned Surgical Provider 07/01/23 Cora Shah RN Personal Advocate & Liaison (PAL) Nurse 07/09/23 09/29/23 [place] [address] [address] [address] Assigned Musculoskeletal Provider 08/20/23 Cristal Cooper, JERRY Lead Airport Maintenance Laborer Primary Care - CC 04/27/2404/08 Shannon Rowland PA-C [address] [facility] [place] [address] Assigned PCP 04/29/24 05/28/24 Lanie Foster, RD, LD [address] [place] [address] Registered Dietitian Nutrition 05/15/24 [place] [address] [address] Assigned PCP 05/29/24 Melonie Caro [facility] [address] [place], [place] 477[address] Pharmacist Pharmacist 06/05/24 Federico Linda MD [address] [place], [place] 36[address] Cardiovascular Disease 06/13/24 Melonie Caro [facility] [address] [place] [address] Assigned MTM Pharmacist 06/29/24 Virgie Lobato PA-C [address] [place] [address]885 Assigned Nephrology Provider 07/30/24 Barry Ybarra MD [address] [place] [address] Hospitalist Infectious Diseases 08/31/24 Barry Ybarra MD [address] [address] Assigned Infectious Disease Provider 10/27/24 documented as of this encounter
--- OUTSIDE RECORDS SUMMARY | 2024-11-12 17:31 | XMS_ITS | Encounter Summary ---
Author Organization [place] Address [address] [place] [address] Care Team Providers Care Satellite Television Installer Name Role Phone Sheryl Stringer Kirk BENITEZ Unavailable [phone] Federico Linda MD Unavailable [phone] Trina Carbajal PA-C Primary Care Provider + [phone] Connie Blackwell MD Unavailable [phone] Ruth Ann Munoz MD Unavailable + Carlos Livingston MD Unavailable Jelena vailable Trina Carbajal PA-C Unavailable [phone] Carlos Livingston MD Unavailable Jelena vailable Carlos Livingston MD Unavailable Jelena vailable Trina Carbajal PA-C Unavailable [phone] Mari Funes RN Unavailable Unavailable Jc Zavala MD Unavailable [phone] Barbi Manzo RN Unavailable Unavailable Erasto Root MD Unavailable Cristofer Michelle MD Unavailable [phone] Vivien Blanchard MD Unavailable Sapna Hernandez MD Unavailable Vivien Blanchard MD Unavailable Virgie Lobato PA-C Unavailable +[phone] Teetee Velazquez-C Unavailable [phone] Teetee Velazquez-C Unavailable [phone] Cora Shah RN Unavailable Brad Mayer DO Unavailable [phone] Mary Garcia MD Primary Care Provider Cristal Cooper RN Unavailable Shannon RowlandC Unavailable [phone], LD Unavailabl e Mary Garcia MD Unavailable Melonie Caro [facility] Unavailable Federico Linda MD Unavailable Melonie Caro [facility] Unavailable Virgie viramontes PA-C Unavailable [phone] Barry bYarra MD Unavailable [phone] Barry Ybarra MD Unavailable [phone] Reason for Visit * Reason Onset Date Comments MyChart Communication 08/08/2020 Encounter Details Date Type Department Care Team (Late st Contact Info) Description 08/08/2020 [facility] [address] [address] Trina Carbajal PA-C [address] [place] [address] FAB BAG Communication Social History Tobacco Use Types Packs/Day Years Used Date Smoking Tobacco: Never Smokeless Tobacco: Never Alcohol Use Standard Drinks/Week Comments No 0 (1 standard drink = 0.6 oz pur e alcohol) PHQ-2 Answer Date Recorded PHQ-2 Score 0 07/27/2019 Comments No Sex and Gender Information Value Date Recorded Sex Assigned at Female 07/18/2020 1:16 PM CAREER CENTER DIRECTOR Legal Sex Female 3:23 AM CAREER CENTER DIRECTOR Gender Identity Female 07/18/2020 1:16 PM CAREER CENTER DIRECTOR Sexual Orientation Straight 07/18/2020 1: 16 PM CAREER CENTER DIRECTOR 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 ER CENTER DIRECTOR * Telephone Encounter - Bj Christine RN - 08/08/2020 3:31 PM CST Called patient and left voicemail to return call to clinic *see [facility] message thread* Called to clarify what patient is requesting and needs, strings of [facility] messages over last week or so seem to have contradicting information Bj Christine RN ER CENTER DIRECTOR documented in this encounter Plan of Treatment Upcoming Encounters Date Type Department Care Team (Late st Contact Info) Description 11/16/2024 1:00 PM CDT Allied Health/Nurse Visit [facility] [address] 4th [place] [address] Lucero Britt PA-C [address] [place] [address] 11/16/2024 2:45 PM CDT Office Visit [facility] 909 [facility] 4th [place] [phone] Vivien Blanchard MD [address] [facility] 394 [place], [place] [address] 11/20/2024 3:30 PM CDT Office Visit [facility] [address] [place] [address] [place] [address] [place] [address] 11/22/2024 9:15 AM CDT Office Visit [facility] Heart [facility] [address] [facility] [address] [place] [phone] Federico Linda MD 6402 [facility] [address] [place], [place] [address] 11/30/2024 10:30 AM CDT Lab [facility] [address] [place] [phone] 12/06/2024 10:10 AM CDT Office Visit [facility] Specialty [facility] 6525 [facility] 200 [place] [address] Virgie Lobato, PA-C 909 [place] [address] 12/28/2024 11:00 AM CDT Office Visit [facility] 2945 [facility] 200 [place] [address] Barry Ybarra MD [address] [place] [address] 200 [place] [address] 01/26/2025 11:30 AM CDT Office Visit [facility] [address] [place] [address] [place] [address] [place] [address] documented as of this encounter Goals Goal Patient Goal Type Associated Problems Recent Progress Patient-Stated? Author Problem Solving General On track( 019 9:24 AM CAREER CENTER DIRECTOR) Yes Sheryl Stringer RD Note: My [...] Out COVID-19 2021 2021 04/25/2021 12:41 PM CAREER CENTER DIRECTOR Rule Out COVID-19 06/14/2022 06/14/2022 06/14/2022 11:30 AM CAREER CENTER DIRECTOR Rule Out COVID-19 07/03/2022 07/03/2022 07/04/2022 12:27 AM CAREER CENTER DIRECTOR Rule Out COVID-19 04/01/2024 04/01/2024 04/01/2024 10:07 PM CDT ESBL 07/05/2024 08/24/2024 Rule Out COVID-19 07/16/2024 07/16/2024 07/16/2024 11:04 PM CAREER CENTER DIRECTOR Rule Out COVID-19 09/01/2024 09/01/2024 09/01/2024 2:05 AM CDT Rule Out COVID-19 09/21/2024 09/21/2024 09/21/2024 3:25 PM CDT Assessment Noted Time PHQ-9 Depression Total Score: 6 07/28/19 20 7:04 AM CAREER CENTER DIRECTOR documented as of this encounter Care Teams Satellite Television Installer Relationship Specialty Start Date End Date Trina Carbajal PA-C [address] [place] [address] PCP - General Family Medicine 05/19/20 04/10/24 [place] [address] [place] [address] PCP - General Family Medicine 04/11/[address] [place] [address] Reconditioner Dietitian, Registered 11/03/17 Federico Linda MD [address] [place] [address] Assigned Heart and Vascular Provider 03/29/20 Connie Blackwell MD [address] [place] [address] Assigned Endocrinology Provider 07/14/20 12/19/20 Ruth Ann Munoz MD ARISE 7447 [facility] [address] [place] [address] Assigned PCP 07/28/20 08/25/20 Carlos Livingston MD NO INFO AVAILABLE Assigned PCP 08/26/20 08/31/20 Trina Carbajal PA-C [address] [facility] [address] [place] [address] Assigned PCP 09/01/20 12/07/20 Carlos Livingston MD NO INFO AVAILABLE Assigned Endocrinology Provider 12/20/20 12/18/22 Carlos Livingston MD NO INFO AVAILABLE Assigned PCP 12/08/20 12/19/20 Trina Carbajal, PA-C 6405 [facility] [address] [place] [address] Assigned PCP 12/20/20 04/28/24 Mari Funes, JERRY Personal Advocate & Liaison (PAL) Nurse 01/24/21 06/12/21 Jc Zavala MD [place] [facility] [facility] 100 [place] [address] Hematology & Oncology 08/07/21 Barbi Manzo, JERRY Personal Advocate & Liaison (PAL) Family Medicine 12/24/21 07/08/23 [place] [address] [place] [address] [place] [address] Assigned Musculoskeletal Provider 04/04/22 08/19/23 Cristofer Michelle MD [address] [place], [place] [address]B 1E [place], [place] [address] Gastroenterology 07/28/22 Vivien Blanchard MD [address] [facility] 394 [place], [place] [address] Urology 07/28/22 Sapna Hernandez MD [address] [facility] 394 [place] [address] Assigned Nephrology Provider 07/11/22 09/25/22 Vivien Blanchard MD [address] [facility] 394 [place] [address] Assigned Surgical Provider 07/25/22 06/30/23 Virgie Lobato PA-C [address] [place] [address] 222255 Assigned Nephrology Provider 09/26/22 03/28/24 Teetee Velazquez PA-C [address] [place] [address] 568375 Physician Fleet Sales Manager 05/11/23 Teetee Velazquez PA-C [address] [place] [address] 059275 Assigned Surgical Provider 07/01/23 Cora Shah RN Personal Advocate & Liaison (PAL) Nurse 07/09/23 09/29/23 [place] [address] [address] [address] Assigned Musculoskeletal Provider 08/20/23 Cristal Cooper, JERRY Lead Retort Condenser Attendant Primary Care - CC 04/27/2404/08 Shannon Rowland [place]-C [address] [place] [address] Assigned PCP 04/29/24 05/28/24 Lanie Foster, RD, LD [address] [place] [address] Registered Dietitian Nutrition 05/15/24 [place] [address] [address] [place], [place] [address] Assigned PCP 05/29/24 Melonie Caro [facility] [address] [place], [place] [address] Pharmacist Pharmacist 06/05/24 Federico Linda MD [address] [facility] [address] [place] [address] Cardiovascular Disease 06/13/24 Melonie Caro [facility] [address] [place], [place] 673497 Assigned MTM Pharmacist 06/29/24 Virgie Lobato, PA-C [address] [place] [address] 966025 Assigned Nephrology Provider 07/30/24 Barry Ybarra MD [address] [place] [address] Hospitalist Infectious Diseases 08/31/24 Barry Ybarra MD [address] [place] [address] Assigned Infectious Disease Provider 10/27/24 documented as of this encounter
--- OUTSIDE RECORDS SUMMARY | 2024-11-12 17:31 | XMS_ITS | Encounter Summary ---
Author Organization [place] Address [address] [place] [address] Care Team Providers Care Carbon Cutter Name Role Phone Sheryl Stringer RD Unavailable [phone] Federico Linda MD Unavailable [phone] Jc Zavala MD Unavailable [phone] Cristofer Michelle MD Unavailable [phone] Vivien Blanchard MD Unavailable Teetee Velazquez-Javi Unavailable Teetee Velazquez PA-C Unavailable [phone] Brad Mayer DO Unavailable [phone] Mary Garcia MD Primary Care Provider Lanie Foster RD, LD Unavailabl e Mary Garcia MD Unavailable Melonie Caro [facility] Unavailable Federico Linda MD Unavailable [phone] Melonie Caro [facility] Unavailable [phone] Virgie Lobato PA-C Unavailable [phone] Barry Ybarra MD Unavailable [phone] Barry Ybarra MD Unavailable [phone] Encounter Details Date Type Department Care Team (Late st Contact Info) Description 07/03/2024 MyC Medical Advice [facility] Heart [facility] [address] [facility] [address] [place] [address] Federico Linda MD [address] [facility] [address] [place] [address] Social History Tobacco Use Types Packs/Day Years [...] in an overnight fci, or couch-surfing.) Yes 04/29/2024 Are you worried [...] Sex Assigned at Female 07/18/2020 1:16 PM SHAKE PACKER Legal Sex Female 3:23 AM SHAKE PACKER Gender Identity Female 07/18/2020 1:16 PM SHAKE PACKER Sexual Orientation Straight 07/18/2020 1: 16 PM SHAKE PACKER 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 Not on file Not on file documented as of this encounter Plan of Treatment Upcoming Encounters Date Type Department Care Team (Late st Contact Info) Description 11/16/2024 1:00 PM CDT Allied Health/Nurse Visit [facility] Urology [address] [address] Lucero Britt PA-C 500 [place] [address] 11/16/2024 2:45 PM CDT Office Visit [facility] [address] [address] Vivien Blanchard MD 420 [facility] 394 [place] [address] 11/20/2024 3:30 PM CDT Office Visit [facility] [address] [place] [address] [place] [address] [place] [address] 11/22/2024 9:15 AM CDT Office Visit [facility] [address] [facility] [address] [place] [address] Federico Linda MD [address] [facility] [address] [place], [place] [address] 11/30/2024 10:30 AM CDT Lab [facility] [address] [place] [address] 12/06/2024 10:10 AM CDT Office [facility] 6525 [facility] 200 [place] [address] Virgie Lobato, PA-C [address] [place] [address] 12/28/2024 11:00 AM CDT Office Visit [address] [phone] Barry Ybarra MD [address] [place] [address] 01/26/2025 11:30 AM CDT Office Visit [place] [address] [place] [address] [place] [address] [place] [address] documented as of this encounter Goals Goal Patient Goal Type Associated Problems Recent Progress Patient-Stated? Author Problem Solving General On track( 019 9:24 AM SHAKE PACKER) Yes Sheryl Stringer RD Note: My Goal: [...] Out COVID-19 07/16/2024 07/16/2024 07/16/2024 11:04 PM SHAKE PACKER Rule Out COVID-19 09/01/2024 09/01/2024 09/01/2024 2:05 AM CDT Rule Out COVID-19 09/21/2024 09/21/2024 09/21/2024 3:25 PM CDT Assessment Noted Time PHQ-9 Depression Total Score: 3 05/02/20 24 1:39 PM SHAKE PACKER documented as of this encounter Care Teams Carbon Cutter Relationship Specialty [place] [address] [place] [address] PCP - General Family Medicine 04/11/[address] [place] [address] Agricultural Equipment Design Engineer Dietitian, Registered 11/03/17 Federico Linda MD [address] [facility] [address] [place] [address] Assigned Heart and Vascular Provider 03/29/20 Jc Zavala MD [facility] [address] [place] [address] Hematology & Oncology 08/07/21 Cristofer Michelle MD 516 [facility]B 1E [place], [place] [address] Gastroenterology 07/28/22 Vivien Blanchard MD 420 [facility] 394 [place], [place] 9[address] Urology 07/28/22 Teetee Velazquez PA-C 909 [place] [address] Physician Supervisor Advice 05/11/23 Teetee Velazquez PA-C 909 [place] [address] Assigned Surgical Provider 07/01/23 [place] [address] [address]OSA, [address] 574317 Assigned Musculoskeletal Provider 08/20/23 Lanie Foster, RD, LD [address] [place] [address] Registered Dietitian Nutrition 05/15/24 [place] [address] [place] [address] Assigned PCP 05/29/24 Melonie Caro [facility] [address] [place] [address] Pharmacist Pharmacist 06/05/24 Federico Linda MD [address] [place] [address] Cardiovascular Disease 06/13/24 Melonie Caro [facility] [address] [place] [address] Assigned MTM Pharmacist 06/29/24 Virgie Lobato, GIUSEPPEC [address] [place] [address] Assigned Nephrology Provider 07/30/24 Barry Ybarra MD [address] [place] [address] Hospitalist Infectious Diseases 08/31/24 Barry Ybarra MD [address] [place] [address] Assigned Infectious Disease Provider 10/27/24 documented as of this encounter
--- OUTSIDE RECORDS SUMMARY | 2024-11-12 17:31 | XMS_ITS | Encounter Summary ---
Author Organization [place] Address [address] [place] [address] Care Team Providers Care Inside Trucker Name Role Phone Sheryl Stringer Kirk BENITEZ Unavailable [phone] Federico Linda MD Unavailable [phone] Trina Carbajal PA-C Primary Care Provider + [phone] Connie Blackwell MD Unavailable [phone] Ruth Ann Munoz MD Unavailable + Carlos Livingston MD Unavailable Jelena vailable Trina Carbajal PA-C Unavailable [phone] Carlos Livingston MD Unavailable Jelena vailable Carlos Livingston MD Unavailable Jelena vailable Trina Carbajal PA-C Unavailable [phone] Mari Funes RN Unavailable Unavailable Jc Zavala MD Unavailable [phone] Barbi Manzo RN Unavailable Unavailable Erasto Root MD Unavailable Cristofer Michelle MD Unavailable [phone] Vivien Blanchard MD Unavailable Sapna Hernandez MD Unavailable Vivien Blanchard MD Unavailable Virgie Lobato PA-C Unavailable [phone] Teetee VelazquezC Unavailable [phone] Teetee VelazquezC Unavailable Cora Shah RN Unavailable Brad Mayer DO Unavailable [phone] Mary Garcia MD Primary Care Provider [phone] Cristal Cooper RN Unavailable Shannon Rowland PA-C Unavailable Lanie Foster RD, LD Unavailabl e Mary Garcia MD Unavailable Melonie Caro [facility] Unavailable Federico Linda MD Unavailable Melonie Caro [facility] Unavailable Virgie viramontes PA-C Unavailable [phone] Barry Ybarra MD Unavailable [phone] Barry Ybarra MD Unavailable Encounter Details Date Type Department Care Team (Late st Contact Info) Description 07/31/2020 [facility] [address] [address] Trina Carbajal PA-C [address] [place] [address] Social History Tobacco Use Types Packs/Day Years Used Date Smoking Tobacco: Never Smokeless Tobacco: Never Alcohol Use Standard Drinks/Week Comments No 0 (1 standard drink = 0.6 oz pur e alcohol) PHQ-2 Answer Date Recorded PHQ-2 Score 0 07/27/2019 Comments No Sex and Gender Information Value Date Recorded Sex Assigned at Female 07/18/2020 1:16 PM MAT REPAIRER Legal Sex Female 3:23 AM MAT REPAIRER Gender Identity Female 07/18/2020 1:16 PM MAT REPAIRER Sexual Orientation Straight 07/18/2020 1: 16 PM MAT REPAIRER 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 Not on file documented as of this encounter Plan of Treatment Upcoming Encounters Date Type Department Care Team (Late st Contact Info) Description 11/16/2024 1:00 PM CDT Allied Health/Nurse Visit [facility] Urology [address] [phone] Lucero Britt PA-C 500 [place], [place] [address] 11/16/2024 2:45 PM CDT Office Visit [facility] Urology [address] [phone] Vivien Blanchard MD 420 [facility] 394 [place], [place] [address] 11/20/2024 3:30 PM CDT Office Visit [facility] [address] [place] [phone] [place] [address] [place] [address] 11/22/2024 9:15 AM CDT Office Visit [facility] Heart [facility] [address] [facility] [address] [place] [address] Federico Linda MD [address] [facility] [place] [address] 11/30/2024 10:30 AM CDT Lab [facility] [address] [place] [address] 12/06/2024 10:10 AM CDT Office Visit [facility] 6525 [facility] 200 [place] [address] Virgie Lobato, PANilesh 909 [place] [address] 12/28/2024 11:00 AM CDT Office Visit [facility] [address] [phone] [place] [address] [place] [address] 01/26/2025 11:30 AM CDT Office Visit [facility] [address] [place] [phone] [place] [address] [place] [address] documented as of this encounter Goals Goal Patient Goal Type Associated Problems Recent Progress Patient-Stated? Author Problem Solving General On track( 019 9:24 AM MAT REPAIRER) Yes Sheryl Stringer, ELI Note: My Goal: [...] Out COVID-19 2021 2021 04/25/2021 12:41 PM MAT REPAIRER Rule Out COVID-19 06/14/2022 06/14/2022 06/14/2022 11:30 AM MAT REPAIRER Rule Out COVID-19 07/03/2022 07/03/2022 07/04/2022 12:27 AM MAT REPAIRER Rule Out COVID-19 04/01/2024 04/01/2024 04/01/2024 10:07 PM CDT ESBL 07/05/2024 08/24/2024 Rule Out COVID-19 07/16/2024 07/16/2024 07/16/2024 11:04 PM MAT REPAIRER Rule Out COVID-19 09/01/2024 09/01/2024 09/01/2024 2:05 AM CDT Rule Out COVID-19 09/21/2024 09/21/2024 09/21/2024 3:25 PM CDT Assessment Noted Time PHQ-9 Depression Total Score: 6 07/28/19 7:04 AM MAT REPAIRER documented as of this encounter Care Teams Inside Trucker Relationship Specialty Start Date End Date Trina Carbajal PA-C [address] [place] [address] PCP - General Family Medicine 05/19/20 04/10/24 [place] [address] [place] [id number] PCP - General Family Medicine 04/11/[address] [place] [address] Bus Mechanic Dietitian, Registered 11/03/17 Federico Linda MD [address] [place] [address] Assigned Heart and Vascular Provider 03/29/20 Connie Blackwell MD [address] [place] [id number] Assigned Endocrinology Provider 07/14/20 12/19/20 Ruth Ann Munoz MD ARISE 7447 [facility] [address] [place] [address] Assigned PCP 07/28/20 08/25/20 Carlos Livingston MD NO INFO AVAILABLE Assigned PCP 08/26/20 08/31/20 Trina Carbajal PA-C 65[address] [facility] 200 [place] [id number] Assigned PCP 09/01/20 12/07/20 Carlos Livingston MD NO INFO AVAILABLE Assigned Endocrinology Provider 12/20/20 12/18/22 Carlos Livingston MD NO INFO AVAILABLE Assigned PCP 12/08/20 12/19/20 Trina Carbajal PA-C 6405 [facility] S [facility] [address] [place] [address] Assigned PCP 12/20/20 04/28/24 Mari Funes, JERRY Personal Advocate & Liaison (PAL) Nurse 01/24/21 06/12/21 Jc Zavala MD [facility] [address] [place] [address] Hematology & Oncology 08/07/21 Barbi Manzo, JERRY Personal Advocate & Liaison (PAL) Family Medicine 12/24/21 07/08/23 [place] [address] [place] [address] [address] Assigned Musculoskeletal Provider 04/04/22 08/19/23 Cristofer Michelle MD [address] [place] [address] Gastroenterology 07/28/22 Vivien Blanchard MD [address] [place] [address] Urology 07/28/22 Sapna Hernandez MD [address] [place] [address] Assigned Nephrology Provider 07/11/22 09/25/22 Vivien Blanchard MD [address] [place] [address] Assigned Surgical Provider 07/25/22 06/30/23 Virgie Lobaot PA-C 9 [place] [address] Assigned Nephrology Provider 09/26/22 03/28/24 Teetee Velazquez PA-C [address] [place] [address] Physician Brake Shoe Rebuilder 05/11/23 Teetee Velazquez PA-C 909 [place] [address] Assigned Surgical Provider 07/01/23 Cora Shah, JERRY Personal Advocate & Liaison (PAL) Nurse 07/09/23 09/29/23 [place] [address] [address], [address] [place], [place] [address] Assigned Musculoskeletal Provider 08/20/23 Cristal Cooper RN Lead Cnc Milling Machinist Primary Care - CC 04/27/2404/08 Shannon Rowland PA-C [address] [place] [phone] Assigned PCP 04/29/24 05/28/24 Lanie Foster, RD, LD [address] [place] [place] [id number] Registered Dietitian Nutrition 05/15/24 [place] [address] [place] [address] Assigned PCP 05/29/24 Melonie Caro [facility] [address] [place], [place] [address] Pharmacist Pharmacist 06/05/24 Federico Linda MD [address] [facility] [address] [place] [address] Cardiovascular Disease 06/13/24 Melonie Caro [facility] [address] [place] [address] Assigned MTM Pharmacist 06/29/24 Virgie Lobato PA-C [address] [place] [address] Assigned Nephrology Provider 07/30/24 Barry Ybarra MD [address] [place] [address] Hospitalist Infectious Diseases 08/31/24 Barry Ybarra MD [address] [place] [address] Assigned Infectious Disease Provider 10/27/24 documented as of this encounter
--- OUTSIDE RECORDS SUMMARY | 2024-11-12 17:31 | XMS_ITS | Encounter Summary ---
Author Organization [place] Address [address] [place] [address] Care Team Providers Care Pole Setter Name Role Phone Sheryl Stringer Kirk BENITEZ Unavailable [phone] Federico Linda MD Unavailable [phone] Trina Carbajal-C Primary Care Provider Carlos Livingston MD Unavailable Jelena vailable Trina CarbajalC Unavailable [phone] Jc Zavala MD Unavailable [phone] Barbi Manzo RN Unavailable Unavailable Erasto Root MD Unavailable Cristofer Michelle MD Unavailable [phone] Vivien Blanchard MD Unavailable [phone] Sapna Hernandez MD Unavailable Vivien Blanchard MD Unavailable [phone] Virgie Lobato-C Unavailable [phone] Teetee Velazquez PA-C Unavailable [phone] Teetee Velazquez PA-C Unavailable Cora Shah RN Unavailable Moreno, Brad Unavailable [phone] Mary Garcia MD Primary Care Provider [phone] Cristal Cooper RN Unavailable Shannon Rowland PA-C Unavailable [phone], LD Unavailabl e Mary Garcia MD Unavailable Melonie Caro [facility] Unavailable Federico Linda MD Unavailable Melonie Caro [facility] Unavailable Virgie Lobato PA-C Unavailable [phone] Barry Ybarra MD Unavailable Barry Ybarra MD Unavailable Encounter Details Date Type Department Care Team (Late st Contact Info) Description 06/04/2022 [facility] [place] [address] [facility] [address] [place] [address] Teetee Velazquez PA-C 2 [place] [address] Social History Tobacco Use Types Packs/Day Years Used Date Smoking Tobacco: Never Smokeless Tobacco: Never Alcohol Use Standard Drinks/Week Comments No 0 (1 standard drink = 0.6 oz pur e alcohol) PHQ-2 Answer Date Recorded PHQ-2 Score 0 04/16/2022 Comments No Sex and Gender Information Value Date Recorded Sex Assigned at Female 07/18/2020 1:16 PM PATROL AGENT Legal Sex Female 3:23 AM PATROL AGENT Gender Identity Female 07/18/2020 1:16 PM PATROL AGENT Sexual Orientation Straight 07/18/2020 1: 16 PM PATROL AGENT 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 No / Unsure 06/02/2022 6:20 AM PATROL AGENT documented as of this encounter Plan of Treatment Upcoming Encounters Date Type Department Care Team (Late st Contact Info) Description 11/16/2024 1:00 PM CDT Allied Health/Nurse Visit [facility] Urology [address] [phone] Lucero Britt PA-C 500 [place], [place] 4967[address] 11/16/2024 2:45 PM CDT Office Visit [facility] [address] [phone] Vivien Blanchard MD 420 [facility] 394 [place], [place] [phone] 11/20/2024 3:30 PM CDT Office Visit [address] [phone] Mary Garcia MD [address] [place] [address] 11/22/2024 9:15 AM CDT Office Visit [facility] [address] [facility] [address] [place] [phone] Federico Linda MD 6401 [facility] [address] [place], [place] [address] 11/30/2024 10:[address] [facility] [address] [place] [address] 12/06/2024 10:10 AM CDT Office Visit [facility] 6525 [facility] 200 [place] [address] Virgie Lobato PANilesh [address] [place] [address] 12/28/2024 11:00 AM CDT [facility] [address] [place] [phone] Barry Ybarra MD [address] [place] [address] 01/26/2025 11:30 AM CDT Office Visit [facility] [address] [place] [address] [place] [address] [place] [address] documented as of this encounter Goals Goal Patient Goal Type Associated Problems Recent Progress Patient-Stated? Author Problem Solving General On track( 019 9:24 AM PATROL AGENT) Yes Sheryl Stringer RD Note: My Goal: [...] Out COVID-19 06/14/2022 06/14/2022 06/14/2022 11:30 AM PATROL AGENT Rule Out COVID-19 07/03/2022 07/03/2022 07/04/2022 12:27 AM PATROL AGENT Rule Out COVID-19 04/01/2024 04/01/2024 04/01/2024 10:07 PM CDT ESBL 07/05/2024 08/24/2024 Rule Out COVID-19 07/16/2024 07/16/2024 07/16/2024 11:04 PM PATROL AGENT Rule Out COVID-19 09/01/2024 09/01/2024 09/01/2024 2:05 AM CDT Rule Out COVID-19 09/21/2024 09/21/2024 09/21/2024 3:25 PM CDT Assessment Noted Time PHQ-9 Depression Total Score: 2 04/16/20 22 3:08 PM PATROL AGENT documented as of this encounter Care Teams Pole Setter Relationship Specialty Start Date End Date Trina Carbajal PA-C [address] [place] [address] PCP - General Family Medicine 05/19/20 04/10/24 [place] [address] [place] [address] PCP - General Family Medicine 04/11/[address] [place] [address] Camera Operator Dietitian, Registered 11/03/17 Federico Linda MD [address] [place] [address] Assigned Heart and Vascular Provider 03/29/20 Carlos Livingston MD NO INFO AVAILABLE Assigned Endocrinology Provider 12/20/20 12/18/22 Trina Carbajal PA-C [address] [place] [address] Assigned PCP 12/20/20 04/28/24 Jc Zavala MD [facility] [address] [place] [address] Hematology & Oncology 08/07/21 Barbi Manzo, JERRY Personal Advocate & Liaison (PAL) Family Medicine 12/24/21 07/08/23 [place] [address] [facility] 300 [place] [address] Assigned Musculoskeletal Provider 04/04/22 08/19/23 Cristofer Michelle MD [address] [place] [address] 1E [place] [address] Gastroenterology 07/28/22 Vivien Blanchard MD 420 [facility] 394 [place], [place] 03[address] Urology 07/28/22 Sapna Hernandez MD 420 [facility] 394 [place] [address] Assigned Nephrology Provider 07/11/22 09/25/22 Vivien Blanchard MD 420 [facility] 394 [place], [place] 399855 Assigned Surgical Provider 07/25/22 06/30/23 Virgie Lobato PA-C [address] [place] [address] 917815 Assigned Nephrology Provider 09/26/22 03/28/24 Teetee Velazquez PA-C 909 [place] [address] Physician Fashion Consultant Selling 05/11/23 Teetee Velazquez PA-C 909 [place], [place] 0[address]15 Assigned Surgical Provider 07/01/23 Cora Shah, JERRY Personal Advocate & Liaison (PAL) Nurse 07/09/23 09/29/23 [place] [address] [address], [address] 551587 Assigned Musculoskeletal Provider 08/20/23 Cristal Cooper RN Lead Refrigeration Service Technician Primary Care - CC 04/27/2404/08 Shannon Rowland PA-C [address] [place] [phone] Assigned PCP 04/29/24 05/28/24 Lanie Foster, RD, LD [address] [place] [address] Registered Dietitian Nutrition 05/15/24 [place] [address] [place] [address] Assigned PCP 05/29/24 Melonie Caro RPH [address] [place], [place] [phone] Pharmacist Pharmacist 06/05/24 Federico Linda MD [address] [place], [place] 5[address] Cardiovascular Disease 06/13/24 Melonie Caro RPH [address] [place] [address] Assigned MTM Pharmacist 06/29/24 Virgie Lobato, PAAnthonyC [address] [place] [address] 915365 Assigned Nephrology Provider 07/30/24 Barry Ybarra MD [address] [place] [address] Hospitalist Infectious Diseases 08/31/24 Barry Ybarra MD [address] [place] [address] Assigned Infectious Disease Provider 10/27/24 documented as of this encounter
--- OUTSIDE RECORDS SUMMARY | 2024-11-12 17:31 | XMS_ITS | Encounter Summary ---
Author Organization [place] Address [address] [place] [address] Care Team Providers Care Vat Tender Name Role Phone Sheryl Stringer Kirk BENITEZ Unavailable [phone] Federico Linda MD Unavailable [phone] Trina Carbajal-C Primary Care Provider Carlos Livingston MD Unavailable Jelena vailable Trina CarbajalC Unavailable [phone] Jc Zavala MD Unavailable [phone] Barbi Manzo RN Unavailable Unavailable Erasto Root MD Unavailable Cristofer Michelle MD Unavailable [phone] Vivien Blanchard MD Unavailable [phone] Sapna Hernandez MD Unavailable Vivien Blanchard MD Unavailable [phone] Virgie Lobato-C Unavailable [phone] Teetee Velazquez PA-C Unavailable Teetee Velzaquez-Javi Unavailable Cora Shah RN Unavailable MorenoBrad Unavailable [phone] Mary Garcia MD Primary Care Provider [phone] Cristal Cooper RN Unavailable Shannon Rowland PA-C Unavailable [phone], LD Unavailabl e Mary Garcia MD Unavailable Melonie Caro [facility] Unavailable Federico Linda MD Unavailable [phone] Melonie Caro [facility] Unavailable Virgie Lobato PA-C Unavailable [phone] Barry Ybarra MD Unavailable [phone] Barry Ybarra MD Unavailable Encounter Details Date Type Department Care Team (Late st Contact Info) Description 07/07/2022 [facility] Medical Advice [facility] Specialty [address] [address] Sapna Hernandez MD [address] [place] [address] Social History Tobacco Use Types Packs/Day Years Used Date Smoking Tobacco: Never Smokeless Tobacco: Never Alcohol Use Standard Drinks/Week Comments No 0 (1 standard drink = 0.6 oz pur e alcohol) PHQ-2 Answer Date Recorded PHQ-2 Score 1 06/19/2022 Comments No Sex and Gender Information Value Date Recorded Sex Assigned at Female 07/18/2020 1:16 PM FIREPROOF DOOR ASSEMBLER Legal Sex Female 3:23 AM FIREPROOF DOOR ASSEMBLER Gender Identity Female 07/18/2020 1:16 PM FIREPROOF DOOR ASSEMBLER Sexual Orientation Straight 07/18/2020 1: 16 PM FIREPROOF DOOR ASSEMBLER 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 No / Unsure 07/03/2022 9:33 PM FIREPROOF DOOR ASSEMBLER documented as of this encounter Plan of Treatment Upcoming Encounters Date Type Department Care Team (Late st Contact Info) Description 11/16/2024 1:00 PM CDT Allied Health/Nurse Visit [facility] Urology [address] [place] [address] Lucero Britt PA-C 500 [place], [place] [phone] 11/16/2024 2:45 PM CDT Office Visit [facility] Urology [address] [phone] Vivien Blanchard MD 420 [facility] 394 [place], [place] [phone] 11/20/2024 3:30 PM CDT Office Visit [address] [phone] Mary Garcia MD [address] [place] [address] 11/22/2024 9:15 AM CDT Office Visit [facility] Heart [facility] [address] [facility] [address] [place] [phone] Federico Linda MD 4723 [facility] [address] [place], [place] 3[address] 11/30/2024 10:30 AM CDT Lab [facility] [address] [place] [address] 12/06/2024 10:10 AM CDT Office Visit [facility] [address] [address] Virgie Lobato, PANilesh [address] [place] [address] 12/28/2024 11:00 AM CDT Office Visit [facility] [address] [place] [phone] Barry Ybarra MD [address] [place] [address] 01/26/2025 11:30 AM CDT Office Visit [facility] [address] [place] [address] [place] [address] [place] [address] documented as of this encounter Goals Goal Patient Goal Type Associated Problems Recent Progress Patient-Stated? Author Problem Solving General On track( 019 9:24 AM FIREPROOF DOOR ASSEMBLER) Yes Sheryl Stringer RD Note: My [...] Out COVID-19 07/16/2024 07/16/2024 07/16/2024 11:04 PM FIREPROOF DOOR ASSEMBLER Rule Out COVID-19 09/01/2024 09/01/2024 09/01/2024 2:05 AM CDT Rule Out COVID-19 09/21/2024 09/21/2024 09/21/2024 3:25 PM CDT Assessment Noted Time PHQ-9 Depression Total Score: 4 06/19/19 23 11:34 AM FIREPROOF DOOR ASSEMBLER documented as of this encounter Care Teams Vat Tender Relationship Specialty Start Date End Date Trina Carbajal PA-C [address] [place] [address] PCP - General Family Medicine 05/19/20 04/10/24 [place] [address] [place] [address] PCP - General Family Medicine 04/11/[address] [place] [address] Wad Printing Machine Operator Dietitian, Registered 11/03/17 Federico Linda MD [address] [place] [address] Assigned Heart and Vascular Provider 03/29/20 Carlos Livingston MD NO INFO AVAILABLE Assigned Endocrinology Provider 12/20/20 12/18/22 Trina Carbajal PA-C [address] [place] [address] Assigned PCP 12/20/20 04/28/24 Jc Zavala MD [facility] [address] [place] [address] Hematology & Oncology 08/07/21 Barbi Manzo, JERRY Personal Advocate & Liaison (PAL) Family Medicine 12/24/21 07/08/23 [place] [address] [address] Assigned Musculoskeletal Provider 04/04/22 08/19/23 Cristofer Michelle MD [address] [place] [address] Gastroenterology 07/28/22 Vivien Blanchard MD [address] [place] [address] Urology 07/28/22 Sapna Hernandez MD [address] [address] Assigned Nephrology Provider 07/11/22 09/25/22 Vivien Blanchard MD [address] [place] [address] 347985 Assigned Surgical Provider 07/25/22 06/30/23 Virgie Lobato PA-C 909 [place], [place] [address] Assigned Nephrology Provider 09/26/22 03/28/24 Teetee Velazquez PA-C 909 [place], [place] 853835 Physician Clinical Molecular Geneticist 05/11/23 Teetee Velazquez PA-C 909 [place] [address] Assigned Surgical Provider 07/01/23 Cora Shah, RN Personal Advocate & Liaison (PAL) Nurse 07/09/23 09/29/23 [place] [address] [place] , [facility] 300 [place], [place] 954[address] Assigned Musculoskeletal Provider 08/20/23 Cristal Cooper RN Lead Endoscopy Support Specialist Primary Care - CC 04/27/2404/08 Shannon Rowland PA-C [address] [place] [phone] Assigned PCP 04/29/24 05/28/24 Lanie Foster, RD, LD [address] [place] 615245 Registered Dietitian Nutrition 05/15/24 [place] [address] [place] [address] Assigned PCP 05/29/24 Melonie Caro [facility] [address] [place], [place] [address] Pharmacist Pharmacist 06/05/24 Federico Linda MD [address] [facility] [address] [place] 732215 Cardiovascular Disease 06/13/24 Melonie Caro [facility] [address] [place] [address] Assigned MTM Pharmacist 06/29/24 Virgie Lobato PA-C [address] [place] [address] Assigned Nephrology Provider 07/30/24 Barry Ybarra MD [address] [place] [address] Hospitalist Infectious Diseases 08/31/24 Barry Ybarra MD [address] [place] [address] Assigned Infectious Disease Provider 10/27/24 documented as of this encounter
--- OUTSIDE RECORDS SUMMARY | 2024-11-12 17:31 | XMS_ITS | Encounter Summary ---
Author Organization [place] Address [address] [place] [address] Care Team Providers Care Sewage Disposal Engineer Name Role Phone Sheryl Stringer RD Unavailable [phone] Federico Linda MD Unavailable [phone] Jc Zavala MD Unavailable [phone] Crisotfer Michelle MD Unavailable Vivien Blanchard MD Unavailable [phone] Teetee Velazquez-C Unavailable Teetee Velazquez-C Unavailable Brad Mayer DO Unavailable [phone] Mary Garcia MD Primary Care Provider Cristal Cooper RN Unavailable Shannon RowlandC Unavailable [phone], LD Unavailabl e Mary Garcia MD Unavailable Melonie Caro [facility] Unavailable [phone] Federico Linda MD Unavailable [phone] Liborio Carotlin [facility] Unavailable [phone] Virgie Lobato PA-C Unavailable [phone] Barry Ybarra MD Unavailable [phone] Barry Ybarra MD Unavailable [phone] Encounter Details Date Type Department Care Team (Late st Contact Info) Description 05/03/2024 MyC Medical Advice [facility] Pharm D Project [address] [place] [address] Padmini De La Rosa, HVAC PROJECT ENGINEER Social History Tobacco Use Types Packs/Day Years [...] in an overnight prison, or couch-surfing.) Yes 04/29/2024 Are you worried [...] Sex Assigned at Female 07/18/2020 1:16 PM SODA FOUNTAIN MANAGER Legal Sex Female 3:23 AM SODA FOUNTAIN MANAGER Gender Identity Female 07/18/2020 1:16 PM SODA FOUNTAIN MANAGER Sexual Orientation Straight 07/18/2020 1: 16 PM SODA FOUNTAIN MANAGER 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 Not on file Not on file documented as of this encounter Plan of Treatment Upcoming Encounters Date Type Department Care Team (Late st Contact Info) Description 11/16/2024 1:00 PM CDT Allied Health/Nurse Visit [facility] Urology [address] [address] Lucero Britt PA-C 500 [place], [place] [phone] 11/16/2024 2:45 PM CDT Office Visit [facility] [address] [address] Vivien Blanchard MD 420 [facility] 394 [place], [place] [address] 11/20/2024 3:30 PM CDT Office Visit [facility] [address] [place] [phone] [place] [address] [place] [address] 11/22/2024 9:15 AM CDT Office Visit [facility] [address] [facility] [address] [place] [phone] Federico Linda MD 6408 [facility] [address] [place], [place] [address] 11/30/2024 10:30 AM CDT Lab [facility] [address] [place] [phone] 12/06/2024 10:10 AM CDT Office Visit [facility] 6525 [facility] 200 [place] [phone] Virgie Lobato, PA-C 9 [place] [address] 12/28/2024 11:00 AM CDT Office Visit [address] [phone] Barry Ybarra MD [address] [place] [address] 01/26/2025 11:30 AM CDT Office Visit [facility] [address] [place] [phone] [place] [address] [place] [address] documented as of this encounter Goals Goal Patient Goal Type Associated Problems Recent Progress Patient-Stated? Author Problem Solving General On track( 019 9:24 AM SODA FOUNTAIN MANAGER) Yes Sheryl Stringer RD Note: My [...] Out COVID-19 07/16/2024 07/16/2024 07/16/2024 11:04 PM SODA FOUNTAIN MANAGER Rule Out COVID-19 09/01/2024 09/01/2024 09/01/2024 2:05 AM CDT Rule Out COVID-19 09/21/2024 09/21/2024 09/21/2024 3:25 PM CDT Assessment Noted Time PHQ-9 Depression Total Score: 3 05/02/20 24 1:39 PM SODA FOUNTAIN MANAGER documented as of this encounter Care Teams Sewage Disposal Engineer Relationship Specialty [place] [address] [place] [address] PCP - General Family Medicine 04/11/24 Sheryl Stringer, ELI [address] [place] [address] Janitorial Account Manager Dietitian, Registered 11/03/17 Federico Linda MD 6405 [facility] [address] [place] [address] Assigned Heart and Vascular Provider 03/29/20 Jc Zavala MD [facility] [address] [place] [address] Hematology & Oncology 08/07/21 Cristofer Michelle MD 516 [facility] PMB 1E [place], [place] [address]24[address] Gastroenterology 07/28/22 Vivien Blanchard MD 420 [facility] 394 [place], [place] [address] Urology 07/28/22 Teetee Velazquez PA-C 909 [place] [address] Physician Neurology Nurse 05/11/23 Teetee Velazquez PA-C 909 [place] [address] Assigned Surgical Provider 07/01/23 [place] [address] [address], [address] [address] Assigned Musculoskeletal Provider 08/20/23 Cristal Cooper, RN Lead Flight Line Service Attendant Primary Care - CC 04/27/2404/08 Shannon Rowland PA-C [address] [place] [phone] Assigned PCP 04/29/24 05/28/24 Lanie Foster, RD, LD [address] 369305 Registered Dietitian Nutrition 05/15/24 [place] [address] [place] [address] Assigned PCP 05/29/24 Melonie Caro RPH [address] [place] [address] Pharmacist Pharmacist 06/05/24 Federico Linda MD 6405 [facility] [address] [place] [address] Cardiovascular Disease 06/13/24 Melonie Caro RPH [address] [place] [address] Assigned MTM Pharmacist 06/29/24 Virgie Lobato PA-C [address] [place] [address] Assigned Nephrology Provider 07/30/24 Barry Ybarra MD [address] [place] [address] Hospitalist Infectious Diseases 08/31/24 Barry Ybarra MD [address] [place] [address] Assigned Infectious Disease Provider 10/27/24 documented as of this encounter
--- OUTSIDE RECORDS SUMMARY | 2024-11-12 17:31 | XMS_ITS | Encounter Summary ---
Author Organization [facility] Address [address] [place] [address] Care Team Providers Care [employer] Name Role Phone Sheryl Stringer Kirk BENITEZ Unavailable [phone] Federico Linda MD Unavailable [phone] Trina Carbajal-C Primary Care Provider Carlos Livingston MD Unavailable Jelena vailable Trina aCrbajalC Unavailable [phone] Jc Zavala MD Unavailable [phone] Barbi Manzo RN Unavailable Unavailable Erasto Root MD Unavailable Cristofer Michelle MD Unavailable [phone] Vivien Blanchard MD Unavailable [phone] Sapna Hernandez MD Unavailable Vivien Blanchard MD Unavailable [phone] Virgie Lobato-C Unavailable +[phone] Teetee VelazquezC Unavailable [phone] Teetee Velazquez PA-C Unavailable [phone] Cora Shah RN Unavailable MorenoBrad Unavailable [phone] Mary Garcia MD Primary Care Provider Cristal Cooper RN Unavailable Shannon Rowland PA-C Unavailable Lanie Foster RD, LD Unavailabl e Mary Garcia MD Unavailable Melonie Caro [facility] Unavailable Federico Linda MD Unavailable [phone] Melonie Caro [facility] Unavailable Virgie Lobato PA-C Unavailable Barry Ybarra MD Unavailable [phone] Barry Ybarra MD Unavailable [phone] Encounter Details Date Type Department Care Team (Late st Contact Info) Description 06/12/2022 [facility] Medical Advice [address] [address] Barbi Manzo, RN Social History Tobacco Use Types Packs/Day Years Used Date Smoking Tobacco: Never Smokeless Tobacco: Never Alcohol Use Standard Drinks/Week Comments No 0 (1 standard drink = 0.6 oz pur e alcohol) PHQ-2 Answer Date Recorded PHQ-2 Score 0 06/10/2022 Comments No Sex and Gender Information Value Date Recorded Sex Assigned at Female 07/18/2020 1:16 PM PAINTER TOUCH UP Legal Sex Female 3:23 AM PAINTER TOUCH UP Gender Identity Female 07/18/2020 1:16 PM PAINTER TOUCH UP Sexual Orientation Straight 07/18/2020 1: 16 PM PAINTER TOUCH UP 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 No / Unsure 06/14/2022 6:02 AM PAINTER TOUCH UP documented as of this encounter Plan of Treatment Upcoming Encounters Date Type Department Care Team (Late st Contact Info) Description 11/16/2024 1:00 PM CDT Allied Health/Nurse Visit [facility] Urology [address] [place] [phone] Lucero Britt PA-C 500 [place], [place] [phone] 11/16/2024 2:45 PM CDT Office Visit [facility] Urology [address] [phone] Vivien Blanchard MD 420 [facility] 394 [place], [place] [address] 11/20/2024 3:30 PM CDT Office Visit [facility] [address] [place] [phone] [place] [address] [place] [address] 11/22/2024 9:15 AM CDT Office Visit [facility] Heart [facility] [place] [address] [facility] [address] [place] [phone] Federico Linda MD 9695 [facility] [address] [place], [place] [address] 11/30/2024 10:[address] [facility] [address] [place] [phone] 12/06/2024 10:10 AM CDT Office Visit [facility] [address] [phone] Virgie Lobato PA-C [address] [place] [address] 12/28/2024 11:00 AM CDT Office Visit [facility] 2945 [facility] 200 [place] [address] Barry Ybarra MD [address] [address] 01/26/2025 11:30 AM CDT Office Visit [facility] [address] [place] [phone] [place] [address] [place] [address] documented as of this encounter Goals Goal Patient Goal Type Associated Problems Recent Progress Patient-Stated? Author Problem Solving General On track( 019 9:24 AM PAINTER TOUCH UP) Yes Sheryl Stringer, ELI Note: My Goal: [...] Out COVID-19 06/14/2022 06/14/2022 06/14/2022 11:30 AM PAINTER TOUCH UP Rule Out COVID-19 07/03/2022 07/03/2022 07/04/2022 12:27 AM PAINTER TOUCH UP Rule Out COVID-19 04/01/2024 04/01/2024 04/01/2024 10:07 PM CDT ESBL 07/05/2024 08/24/2024 Rule Out COVID-19 07/16/2024 07/16/2024 07/16/2024 11:04 PM PAINTER TOUCH UP Rule Out COVID-19 09/01/2024 09/01/2024 09/01/2024 2:05 AM CDT Rule Out COVID-19 09/21/2024 09/21/2024 09/21/2024 3:25 PM CDT Assessment Noted Time PHQ-9 Depression Total Score: 4 06/10/19 9:54 AM PAINTER TOUCH UP documented as of this encounter Care Teams [employer] Relationship Specialty Start Date End Date Trina Carbajal PA-C [address] [place] [address] PCP - General Family Medicine 05/19/20 04/10/24 [place] [address] [place], [place] [address] PCP - General Family Medicine 04/11/[address] [place], [place] [phone] Car Restorer Dietitian, Registered 11/03/17 Federico Linda MD [address] [place] [address] Assigned Heart and Vascular Provider 03/29/20 Carlos Livingston MD NO INFO AVAILABLE Assigned Endocrinology Provider 12/20/20 12/18/22 Trina Carbajal PA-C [address] [place] [address] Assigned PCP 12/20/20 04/28/24 Jc Zavala MD [facility] [address] [place] [address] Hematology & Oncology 08/07/21 Barbi Manzo, RN Personal Advocate & Liaison (PAL) Family Medicine 12/24/21 07/08/23 [place] [address] [place] [address] Assigned Musculoskeletal Provider 04/04/22 08/19/23 Cristofer Michelle MD [address] [place] [address] 066615 Gastroenterology 07/28/22 Vivien Blanchard MD [address] [place] [address] 643415 Urology 07/28/22 Sapna Hernandez MD [address] 816695 Assigned Nephrology Provider 07/11/22 09/25/22 Vivien Blanchard MD [address] [place] [address] 115185 Assigned Surgical Provider 07/25/22 06/30/23 Virgie Lobato PA-C 9 [place], [place] 992655 Assigned Nephrology Provider 09/26/22 03/28/24 Teetee Velazquez PA-C [address] [place] [address] 810605 Physician Charge Preparation Technician 05/11/23 Teetee Velazquez PA-C 909 [place], [place] 088185 Assigned Surgical Provider 07/01/23 Cora Shah, JERRY Personal Advocate & Liaison (PAL) Nurse 07/09/23 09/29/23 [place] [address] [address] [employer], [place] [phone] Assigned Musculoskeletal Provider 08/20/23 Cristal Cooper RN Lead Purchase Analyst Primary Care - CC 04/27/2404/08 Shannon Rowland PA-C [address] [place] [phone] Assigned PCP 04/29/24 05/28/24 Lanie Foster, RD, LD [address] [place] 7[address] Registered Dietitian Nutrition 05/15/24 [place] [address] [place] [address] Assigned PCP 05/29/24 Melonie Caro [facility] [address] [place] [place] [address] Pharmacist Pharmacist 06/05/24 Federico Linda MD [address] [facility] [address] [place] 702395 Cardiovascular Disease 06/13/24 Melonie Caro R[facility] [address] [place] [address] Assigned MTM Pharmacist 06/29/24 Virgie Lobato PA-C [address] [place] [address] Assigned Nephrology Provider 07/30/24 Barry Ybarra MD [address] [place] [address] Hospitalist Infectious Diseases 08/31/24 Barry Ybarra MD [address] [place] [address] Assigned Infectious Disease Provider 10/27/24 documented as of this encounter
--- OUTSIDE RECORDS SUMMARY | 2024-11-12 17:32 | XMS_ITS ---
Author Organization [facility] Address [facility] [place] [address] Care Team Providers Care Slat B[employer] Name Role Phone Sheryl Stringer RD Unavailable [phone] Federico Linda MD Unavailable [phone] Jc Zavala MD Unavailable [phone] Cristofer Michelle MD Unavailable [phone] Vivien Blanchard MD Unavailable Teetee Velazquez PA-C Unavailable Teetee Velazquez PA-C Unavailable Brad Mayer DO Unavailable [phone] Mary Garcia MD Primary Care Provider Lanie Foster RD, LD Unavailabl e Mary Garcia MD Unavailable Melonie Caro [facility] Unavailable [phone] Federico Linda MD Unavailable [phone] Melonie Caro [facility] Unavailable [phone] Virgie Lobato PA-C Unavailable + [phone] Barry Ybarra MD Unavailable [phone] Barry Ybarra MD Unavailable [phone] Primary Care Care Coordination Status:Closed (Closed) Start date:11/08/2024 End date:11/10/2024 Close reason:Unable to reach patient Overview Defer 11/10; Patient is in active communication with Care Team -eo Continued Care and Services Coordination
--- OUTSIDE RECORDS SUMMARY | 2024-11-12 17:32 | XMS_ITS | Encounter Summary ---
Author Organization [facility] Address [address] [place] [address] Care Team Providers Care Environmental Educator Name Role Phone Sheryl Stringer Kirk BENITEZ Unavailable [phone] Federico Linda MD Unavailable [phone] Trina Carbajal-C Primary Care Provider [phone] Trina Carbajal-C Unavailable [phone] Jc Zavala MD Unavailable [phone] Cristofer Michelle MD Unavailable [phone] Vivien Blanchard MD Unavailable [phone] Virgie Lobato-C Unavailable [phone] Teetee Velazquez-C Unavailable [phone] eTetee Velazquez-C Unavailable [phone] Brad Mayer DO Unavailable [phone] Mary Garcia MD Primary Care Provider Cristal Cooper RN Unavailable Shannon Rowland PA-C Unavailable [phone], LD Unavailabl e Mary Garcia MD Unavailable Melonie Caro [facility] Unavailable [phone] Federico Linda MD Unavailable [phone] Melonie Caro [facility] Unavailable [phone] Virgie Lobato PA-C Unavailable [phone] Barry Ybarra MD Unavailable [phone] Barry Ybarra MD Unavailable [phone] Encounter Details Date Type Department Care Team (Late st Contact Info) Description 03/21/2024 [facility] Medical [place] [facility] [address] [address] Shannon Tan, JERRY Social History Tobacco Use Types Packs/Day Years Used Date Smoking Tobacco: Never Passive Smoke Exposure: Never Smokeless Tobacco: Never Alcohol Use Standard Drinks/Week Comments No 0 (1 standard drink = 0.6 oz pur e alcohol) PHQ-2 Answer Date Recorded PHQ-2 Score 0 12/06/2023 Exercise Vital Sign Answer Date Recorde d [...] you got money to buy more? No 01/31/2024 Within the past 12 months, d id the food you bought just not last and you didn t have money to get more? No 01/31/2024 Housing Stability Answer Date Recorded Do you have housing? (Jadon jerez is defined as stable permanent housing and does not include staying outside in a car, in a tent, in an abandoned building, in an overnight usp, or couch-surfing.) Yes 01/31/2024 Are you worried about losing your housing? No 01/31/2024 Financial Resource Strain Answer Date R ecorded Within the past 12 months, h ave you or your family members you live with been unable to get utilities (heat, electricity) when it was really needed? No 01/31/2024 Transportation Needs Answer Date Record ed Within the past 12 months, h as lack of transportation kept you from medical appointments, getting your medicines, non-medical meetings or appointments, work, or from getting things that you need? 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 Not on file documented as of this encounter Plan of Treatment Upcoming Encounters Date Type Department Care Team (Late st Contact Info) Description 11/16/2024 1:00 PM CDT Allied Health/Nurse Visit [facility] U[facility] [address] [address] Lucero Britt PA-C 500 [place], [place] 255825 11/16/2024 2:45 PM CDT Office Visit [facility] [address] [phone] Vivien Blanchard MD 420 [facility] 394 [place] [address] 11/20/2024 3:30 PM CDT Office Visit [facility] [address] [place] [phone] [place] [address] [place] [address] 11/22/2024 9:15 AM CDT Office Visit [facility] Heart [facility] [address] [facility] [address] [place] [phone] Federico Linda MD 6405 [facility] [address] [place], [place] [address] 11/30/2024 10:30 AM CDT Lab [facility] Laboratory [address] [place] [phone] 12/06/2024 10:10 AM CDT Office Visit [facility] 6525 [facility] 200 [place] [phone] Virgie Lobato, PA-C [address] [place] [address] 12/28/2024 11:00 AM CDT Office [facility] [address] [place] [address] 200 [place] [phone] [place] [address] [place] [address] 200 [place] [address] 01/26/2025 11:30 AM CDT Office Visit [address] [phone] [place] [address] [place] [address] documented as of this encounter Goals Goal Patient Goal Type Associated Problems Recent Progress Patient-Stated? Author Problem Solving General On track( 019 9:24 AM SCHOOL PHYSICAL THERAPIST) Yes Sheryl Stringer RD Note: My Goal: [...] Out COVID-19 07/16/2024 07/16/2024 07/16/2024 11:04 PM SCHOOL PHYSICAL THERAPIST Rule Out COVID-19 09/01/2024 09/01/2024 09/01/2024 2:05 AM CDT Rule Out COVID-19 09/21/2024 09/21/2024 09/21/2024 3:25 PM CDT Assessment Noted Time PHQ-9 Depression Total Score: 2 12/06/19 24 9:44 AM CDT documented as of this encounter Care Teams Environmental Educator Relationship Specialty Start Date End Date Trina Carbajal PA-C 6405 [facility] [address] [place] [address] PCP - General Family Medicine 05/19/20 04/10/24 [place] [address] [address] [address] PCP - General Family Medicine 04/11/[address] [facility] MICHELLE [address] [place] [address] [place] [address] Foreign Clerk Dietitian, Registered 11/03/17 Federico Linda MD [address] [place] [address] Assigned Heart and Vascular Provider 03/29/20 Trina Carbajal PA-C [address] [place] [address] Assigned PCP 12/20/20 04/28/24 Jc Zavala MD [facility] [address] [facility] 100 [place] [address] Hematology & Oncology 08/07/21 Cristofer Michelle MD 6 [facility] 1E [place], [place] 6[address] Gastroenterology 07/28/22 Vivien Blanchard MD 420 [facility] 394 [place], [place] [address] Urology 07/28/22 Virgie Lobato PA-C 9 [place], [place] 284465 Assigned Nephrology Provider 09/26/22 03/28/24 Teetee Velazquez PA-C 9 [place], [place] 913425 Physician Credit Operations Specialist 05/11/23 Teetee Velazquez PA-C 909 [place] [address] Assigned Surgical Provider 07/01/23 [place] [address] [address] [place] [address] Assigned Musculoskeletal Provider 08/20/23 Cristal Cooper, JERRY Lead Hospitality Services Manager Primary Care - CC 04/27/2404/08 Shannon Rowland PAAnthonyC [address] [place] [address] Assigned PCP 04/29/24 05/28/24 Lanie Foster, RD, LD [address] [place] [address]105 Registered Dietitian Nutrition 05/15/24 [place] [address] [place] [address] Assigned PCP 05/29/24 Melonie Caro RPH [address] [place], [place] [address] Pharmacist Pharmacist 06/05/24 Federico Linda MD [address] [facility] [address] [place] [address] Cardiovascular Disease 06/13/24 Melonie Caro RPH [address] [place] [address] Assigned MTM Pharmacist 06/29/24 Virgie Lobato PA-C [address] [place] [address] Assigned Nephrology Provider 07/30/24 Barry Ybarra MD [address] [place] [address] Hospitalist Infectious Diseases 08/31/24 Barry Ybarra MD [address] [place] [address] Assigned Infectious Disease Provider 10/27/24 documented as of this encounter
--- OUTSIDE RECORDS SUMMARY | 2024-11-12 17:32 | XMS_ITS | Encounter Summary ---
Author Organization [facility] Address [address] [place] [address] Care Team Providers Care Laboratory Cureman Name Role Phone Sheryl Stringer Kirk BENITEZ Unavailable [phone] Federico Linda MD Unavailable [phone] Trina Carbajal-C Primary Care Provider [phone] Trina Carbajal-C Unavailable [phone] Jc Zavala MD Unavailable [phone] Cristofer Michelle MD Unavailable [phone] Vivien Blanchard MD Unavailable [phone] Virgie Lobato-C Unavailable [phone] Teetee Velazquez-C Unavailable [phone] Teetee Velazquez-C Unavailable [phone] Brad Mayer DO Unavailable [phone] Mary Garcia MD Primary Care Provider Cristal Cooper RN Unavailable Shannon Rowland PA-C Unavailable [phone], LD Unavailabl e Mary Garcia MD Unavailable Melonie Caro [facility] Unavailable [phone] Federico Linda MD Unavailable [phone] Melonie Caro [facility] Unavailable [phone] Virgie Lobato PA-C Unavailable [phone] Barry Ybarra MD Unavailable [phone] Barry Ybarra MD Unavailable [phone] Encounter Details Date Type Department Care Team (Late st Contact Info) Description 02/28/2024 [facility] Medical Advice [facility] [address] [place] [address] [address] [place] [address] Federico Linda MD 9668 [facility] [address] [place] [address] Social History Tobacco Use Types [...] in an abandoned building, in an overnight penitentiary, or couch-surfing.) Yes 01/31/2024 Are you worried [...] Sex Assigned at Female 07/18/2020 1:16 PM BOOSTER PLANT OPERATOR Legal Sex Female 3:23 AM BOOSTER PLANT OPERATOR Gender Identity Female 07/18/2020 1:16 PM BOOSTER PLANT OPERATOR Sexual Orientation Straight 07/18/2020 1: 16 PM BOOSTER PLANT OPERATOR 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 [address] [place] [address] Lucero Britt PA-C [address] [place] [phone] 11/16/2024 2:45 PM CDT Office Visit [facility]rology [facility] 909 [facility] 4th [place] [phone] Vivien Blanchard MD 420 [facility] 394 [place], [place] [address] 11/20/2024 3:30 PM CDT Office Visit [facility] [address] [place] [phone] [place] [address] [place], [place] 277[address] 11/22/2024 9:15 AM CDT Office Visit [facility] Heart [facility] [address] [facility] [address] [place] [phone] Federico Linda MD 6405 [facility] [address] [place] [address] 11/30/2024 10:30 AM CDT Lab [facility] [address] [place] [phone] 12/06/2024 10:10 AM CDT Office Visit [facility] Specialty [facility] 6525 [facility] 200 [place] [phone] Virgie Lobato, PA-C 909 [place] [address] 12/28/2024 11:00 AM CDT Office Visit [facility] 2945 [facility] 200 [place] [phone] [place] [address] [place] [address] 200 [place] [address] 01/26/2025 11:30 AM CDT Office Visit [facility] [address] [place] [address] [place] [address] [place] [address] documented as of this encounter Goals Goal Patient Goal Type Associated Problems Recent Progress Patient-Stated? Author Problem Solving General On track( 019 9:24 AM BOOSTER PLANT OPERATOR) Yes Sheryl Stringer RD Note: [...] Out COVID-19 07/16/2024 07/16/2024 07/16/2024 11:04 PM BOOSTER PLANT OPERATOR Rule Out COVID-19 09/01/2024 09/01/2024 09/01/2024 2:05 AM CDT Rule Out COVID-19 09/21/2024 09/21/2024 09/21/2024 3:25 PM CDT Assessment Noted Time PHQ-9 Depression Total Score: 2 12/06/19 24 9:44 AM CDT documented as of this encounter Care Teams Laboratory Cureman Relationship Specialty Start Date End Date Trina Carbajal PA-C [address] [facility] [address] [place] [address] PCP - General Family Medicine 05/19/20 04/10/24 [place] [address] [place] [address] PCP - General Family Medicine 04/11/24 Sheryl Stringer, ELI [address] [place] [address] Corn Press Operator Dietitian, Registered 11/03/17 Federico Linda MD [address] [place] 12[address]95 Assigned Heart and Vascular Provider 03/29/20 Trina Carbajal PA-C [address] [place] [address] Assigned PCP 12/20/20 04/28/24 Jc Zavala MD [place] [facility] [place] [address] [place] [address] Hematology & Oncology 08/07/21 Cristofer Michelle MD 516 [facility] [address] [place] [address] Gastroenterology 07/28/22 Vivien Blanchard MD 420 [facility] 394 [place] [address] Urology 07/28/22 Virgie Lobato PA-C 909 [place] [address] Assigned Nephrology Provider 09/26/22 03/28/24 Teetee Velazquez PA-C 909 [place] [address] Physician Rn Support Services 05/11/23 Teetee Velazquez PA-C 909 [place], [place] 788745 Assigned Surgical Provider 07/01/23 [place] [address] [address] [place], [place] [address] Assigned Musculoskeletal Provider 08/20/23 Cristal Cooper, JERRY Lead Brake Repairer Primary Care - CC 04/27/2404/08 Shannon Rowland PA-C [address] [place] [address] Assigned PCP 04/29/24 05/28/24 Lanie Foster, RD, LD [address] [place] [place] 250355 Registered Dietitian Nutrition 05/15/24 [place] [address] [place] [address] Assigned PCP 05/29/24 Melonie Caro [facility] [address] [place] [address] Pharmacist Pharmacist 06/05/24 Federico Linda MD [address] [facility] [address] [place] [address] Cardiovascular Disease 06/13/24 Melonie Caro [facility] [address] [place] [address] Assigned MTM Pharmacist 06/29/24 Virgie Lobato PA-C [address] [place] [address] Assigned Nephrology Provider 07/30/24 Barry Ybarra MD [address] [place] [address] Hospitalist Infectious Diseases 08/31/24 Barry Ybarra MD [address] [place] [address] Assigned Infectious Disease Provider 10/27/24 documented as of this encounter
--- OUTSIDE RECORDS SUMMARY | 2024-11-12 17:32 | XMS_ITS | Encounter Summary ---
Author Organization [place] Address [address] [place] [address] Care Team Providers Care Despatch Clerk Name Role Phone Sheryl Stringer Kirk BENITEZ Unavailable [phone] Federico Linda MD Unavailable [phone] Trina Carbajal-C Primary Care Provider [phone] Trina Carbajal-C Unavailable [phone] Jc Zavala MD Unavailable [phone] Cristofer Michelle MD Unavailable [phone] Vivien Blanchard MD Unavailable [phone] Virgie Lobato-C Unavailable [phone] Teetee Velazquez-C Unavailable [phone] Teetee Velazquez-C Unavailable [phone] Brad Mayer DO Unavailable [phone] Mary Garcia MD Primary Care Provider [phone] Cristal Cooper RN Unavailable Shannon Rowland PA-C Unavailable [phone], LD Unavailabl e Mary Garcia MD Unavailable Melonie Caro [facility] Unavailable [phone] Federico Linda MD Unavailable [phone] Melonie Caro [facility] Unavailable [phone] Virgie Lobato PA-C Unavailable [phone] Barry Ybarra MD Unavailable [phone] Barry Ybarra MD Unavailable [phone] Encounter Details Date Type Department Care Team (Late st Contact Info) Description 01/06/2024 [facility] [place] [facility] Heart [facility] [address] [place] [address] [address] [place] [address] Federico Linda MD [address] 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 Medication meets criteria for refill. Ami Lara RN on 01/07/2024 at 4:40 PM documented in this encounter Plan of Treatment Upcoming Encounters Date Type Department Care Team (Late st Contact Info) Description 11/16/2024 1:00 PM CDT Allied Health/Nurse Visit [facility] Urology [facility] [address] [facility] 4th [place] [phone] Lucero Britt PA-C 500 [place], [place] [phone] 11/16/2024 2:45 PM CDT Office Visit [facility] Urology [facility] [address] [facility] 4th [place] [address] Vivien Blanchard MD 420 [facility] 394 [place], [place] [phone] 11/20/2024 3:30 PM CDT Office Visit [facility] [address] [place] [phone] [place] [address] [place] [address] 11/22/2024 9:15 AM CDT Office Visit [facility] Heart [facility] [address] [facility] [address] [place] [phone] Federico Linda MD [address] [facility] [address] [place] [address] 11/30/2024 10:30 AM CDT Lab [facility] [address] [place] [phone] 12/06/2024 10:10 AM CDT Office Visit [facility] Specialty [facility] [address] [facility] [address] [place] [phone] Virgie Lobato PA-C [address] [place] [address] 12/28/2024 11:00 AM CDT Office Visit [facility] [address] [facility] 200 [place] [phone] Barry Ybarra MD 29[address] [facility] 200 [place] [address] 01/26/2025 11:30 AM CDT Office Visit [facility] [address] [place] [phone] [place] [id number] [place] [address] [phone] documented as of this encounter Goals Goal Patient Goal Type Associated Problems Recent Progress Patient-Stated? Author Problem Solving General On track( 019 9:24 AM GAGE DESIGNER) Yes Sheryl Stringer RD Note: My Goal: I will reduce risk of low blood sugars over-night What I need to meet my goal: follow instructions for taking Novolog before meals only I plan to meet my goal by this date: 1 week documented as of this encounter Visit Diagnoses Diagnosis Acute on chronic congestive heart failure, unspecified heart failure type (H) documented in this encounter Additional Health Concerns Infection Onset Date Last Indicated Resolved Time Rule Out COVID-19 04/01/2024 04/01/2024 04/01/2024 10:07 PM CDT ESBL 07/05/2024 08/24/2024 Rule Out COVID-19 07/16/2024 07/16/2024 07/16/2024 11:04 PM GAGE DESIGNER Rule Out COVID-19 09/01/2024 09/01/2024 09/01/2024 2:05 AM CDT Rule Out COVID-19 09/21/2024 09/21/2024 09/21/2024 3:25 PM CDT Assessment Noted Time PHQ-9 Depression Total Score: 2 12/06/19 9:44 AM CDT documented as of this encounter Care Teams Despatch Clerk Relationship Specialty Start Date End Date Trina Carbajal, GIUSEPPEC [address] [place] [address] PCP - General Family Medicine 05/19/20 04/10/24 [place] [address] [place], [place] [phone] PCP - General Family Medicine 04/11/[address] [place] [address] Senior Medical Billing Specialist Dietitian, Registered 11/03/17 Federico Linda MD [address] [place] [address] Assigned Heart and Vascular Provider 03/29/20 Trina Carbajal, GIUSEPPEC [address] [place], [place] [address] Assigned PCP 12/20/20 04/28/24 Jc Zavala MD [facility] [address] [place] [address] Hematology & Oncology 08/07/21 Cristofer Michelle MD 516 [facility] PM[address] 1E [place] [address] Gastroenterology 07/28/22 Vivien Blanchard MD 420 [facility] [address] [place] [address] Urology 07/28/22 Virgie Lobato PA-C [address] [place] [address] 029755 Assigned Nephrology Provider 09/26/22 03/28/24 Teetee Velazquez PA-C [address] [place] [address] Physician Yard Operator 05/11/23 Teetee Velazquez PA-C [address] [place] [address] 350405 Assigned Surgical Provider 07/01/23 [place] [address] [facility] [address] [address] Assigned Musculoskeletal Provider 08/20/23 Cristal Cooper, RN Lead Notary Public Primary Care - CC 04/27/2404/08 Shannon Rowland PA-C [address] [place] [phone] Assigned PCP 04/29/24 05/28/24 Lanie Foster, RD, LD [address] [place] [address] Registered Dietitian Nutrition 05/15/24 [place] [address] [place] [address] Assigned PCP 05/29/24 Melonie Caro [facility] [address] [place] [address] Pharmacist Pharmacist 06/05/24 Federico Linda MD [address] [place] [address] Cardiovascular Disease 06/13/24 Melonie Caro [facility] [address] [place] [address] Assigned MTM Pharmacist 06/29/24 Virgie Lobato, PAAnthonyC [address] [place] [address] Assigned Nephrology Provider 07/30/24 Barry Ybarra MD [address] [place] [address] Hospitalist Infectious Diseases 08/31/24 Barry Ybarra MD [address] [place] [address] Assigned Infectious Disease Provider 10/27/24 documented as of this encounter
--- OUTSIDE RECORDS SUMMARY | 2024-11-12 17:32 | XMS_ITS | Clinical Summary ---
Author Organization [facility] Address [address] [place] [address] Care Team Providers Care Hat Cleaner Name Role Phone Agueda Martinez RN Unavailable [phone] SchempKwesi schreiber MD Unavailable [phone] Pcp, No Primary Care Provider Unavailabl e Allergies Active Allergy Reactions Criticality Noted Date Comments Lisinopril Angioedema High 12/08/2017 Angioedema Propranolol Hcl Rash 03/25/2023 Medications aspirin enteric coated 81 mg tablet Take 81 mg by mouth once daily with a meal. Active nitroglycerin (NITROSTAT) 0.[address] 0.4 mg under the tongue every 5 minutes if needed. Active citalopram (CELEXA) 20 mg tablet Take 1 Tablet (20 mg) by mouth once daily. 0 2 Active amLODIPine (NORVASC) 2.5 mg tablet Take 1 Tablet (2.5 mg) by mouth once daily. 0 2 Active isosorbide mononitrate (IMDUR) 30 mg extended release tablet 24 Hour Take 15 mg by mouth once daily. 3 Active latanoprost (XALATAN) 0.005 % ophthalmic solution 3 Active anastrozole (ARIMIDEX) 1 mg tablet Take 1 mg by mouth once daily. 3 Active estradioL (ESTRACE) 0.01% (0.1 mg/g) vaginal cream Insert 2 g into the vagina. 3 Active dicyclomine (BENTYL) 20 mg tablet Take 20 mg by mouth 4 times daily if needed. 3 Active metoprolol tartrate (LOPRESSOR) 25 mg tablet Take 25 mg by mouth two times daily. 3 Active gabapentin (NEURONTIN) 300 mg capsule Take 1 Capsule (300 mg) by mouth at bedtime. 0 3 Active fluticasone (50 mcg per actuation) nasal solution (FLONASE)Indicat ions:Recurrent sinusitis Inhale 2 Sprays to both nostrils once daily. 16 g 3 Active furosemide (LASIX) 40 mg tablet Take 1 Tablet by mouth once daily. 4 Active insulin lispro (HumaLOG U-100 Insulin) 100 unit/mL injectionIndicat ions:Type 2 diabetes mellitus with diabetic polyneuropathy, with long-term current use of insulin (HC) USE DIRECTED WITH PUMP UP TO 100 UNITS DAILY. 90 mL 3 5 Active Omnipod 5(DexcomG6-G7,Li bre2+) insulin pump crtgIndications: Type 2 diabetes mellitus with diabetic polyneuropathy, with long-term current use of insulin (HC) Inject subcutaneous. Inject subcutaneous. Change pods every 2 days 45 Each 3 5 Active glucagon 3 mg/actuation nasal sprayIndications :patient with diabetes mellitus at risk of hypoglycemia Inhale 1 [place] into affected nostril(s) each time if needed for Severe Hypoglycemia. Roll on side and call 911 after administration. 1 Each 1 5 Active Dexcom G7 Sensor for continuous blood glucose monitor (CGM)Indications :Type 2 diabetes mellitus with diabetic polyneuropathy, with long-term current use of insulin (HC) To be used to read blood sugars, follow venetian blind machine operator directions. Change every 10 days 9 Each 3 5 Active atorvastatin 20 mg tabletIndication s:Type 2 diabetes mellitus with diabetic polyneuropathy, with long-term current use of insulin (HC) TAKE 1 TABLET BY MOUTH EVERY DAY 90 Tablet 2 5 Active Active Problems Problem Noted Date Diagnosed Date Type 2 diabetes mellitus wit h diabetic polyneuropathy, with long-term current use of insulin 09/17/2022 Encounters Date Type Department Care Team Description 10/07/2024 Thanh Banks, [facility] [address] [place] [phone] Kwesi Castro MD Refill Request (Atorvastatin) 09/26/2024 Telephone Thanh Perez [facility] [address] [place] [address] Kwesi Castro MD Prior Authorization (insulin lispro (HumaLOG U-100 Insulin) 100 unit/mL injection PA NOT NEEDED) 09/15/2024 Telephone Thanh Perez [facility] [address] [place] [address] Kwesi Castro MD Questions (SUPPLIES) 08/28/2024 2:30 PM CDT Office Visit Ana Thanh, [facility] [address] [place] [address] Kwesi Castro MD Follow Up ( Type 2 DM on insulin pump//) 08/28/2024 Travel from Last 3 Months Immunizations Immunization Administration Dates Next Due COVID-19 vaccine (Contatta 30mcg/0.3mL) TAVON JENNINGS 05/09/2021,09/24/2020,09/03/2020 Influenza Virus, Unspecified 04/09/2020 Influenza, High-dose Inactivated 020,04/30/2017,02/27/2014,2011 Influenza, High-dose Quadriv alent Inactivated 05/15/2023,05/06/2022,05/09/2021 Influenza, Inactivated AIIV4 (Age 65+ Years) Preserv Free 05/15/2023,04/29/2020 Pneumococcal Poly,23-Valent (Pneumovax) 01/17/2010 Pneumococcal conj 13-Valent (Prevnar 13) 11/25/2016 Td (Age >=7 Years) 05/08/1997 Td, Preservative Free (age > = 7 Years) 02/11/2007 Tdap 07/27/2019,05/08/1997 Zoster (Shingrix-RZV, recombinant) 11/05/2018, Family History Medical History Relation Name Comments Cancer Mother lung Cancer-breast No Family History Cancer-ovarian No Family History Relation Name Status Comments Mother Social History Tobacco Use Types Packs/Day Years Used Date Smoking Tobacco: Never Smokeless Tobacco: Never Tobacco Cessation:Counseling Given: Yes Alcohol Use Standard Drinks/Week Comments No 0 (1 standard drink = 0.6 oz pur e alcohol) Social Connections Answer Date Recorded Do you often feel lonely or isolated from those around you? 0 05/28/2023 Financial Resource Strain Answer Date R ecorded Difficulty of Paying Living Expenses 3 05/28/2023 Difficulty of Paying Living Expenses Not on file 05/28/2023 Food Insecurity Answer Date Recorded Do you worry your food will run out before you are able to buy more? 1 05/28/2023 Transportation Needs Answer Date Record ed Does lack of transportation keep you from medica l appointments? 1 05/28/2023 Does lack of transportation keep you from work, meetings or getting things that you need? 1 05/28/2023 Housing Stability Answer Date Recorded What is your housing situation today? 1 05/28/2023 Utilities Answer Date Recorded Do you have trouble paying f or utilities (for example, heat, electricity, water, phone)? 1 05/28/2023 Comments No Sex and Gender Information Value Date Recorded Sex Assigned at Not on file Legal Sex Female 7:52 AM BUDGET EXAMINER Gender Identity Not on file Sexual Orientation Not on file Obstetrics History Last Filed Vital Signs Vital Sign Reading Time Taken Comments Blood Pressure 156/64 08/28/2024 2:45 PM CDT Pulse 92 08/28/2024 2:45 PM CDT Temperature 36.4 C (97.5 F) 07/24/2024 1:17 PM BUDGET EXAMINER Respiratory Rate 14 07/24/2024 1:17 PM BUDGET EXAMINER Oxygen Saturation 99% 07/24/2024 1:17 PM BUDGET EXAMINER Inhaled Oxygen Concentration - - Weight 78.9 kg (174 lb) 08/28/2024 2:45 PM CDT Height 162.6 cm (5' 4) 01/28/2023 9:36 AM CDT Body Mass Index 29.87 01/28/2023 9:36 AM CDT Plan of Treatment Upcoming Encounters Date Type Department Care Team (Late st Contact Info) Description 12/04/2024 9:45 AM CDT Office Visit [facility] [address] [place] [address] Kwesi Castro MD [address] [place] [id number] Health Maintenance Due Date Last Done Comments Depression screening for age 12+ 1954 DEXA/DXA scan for age 65+ 2007 Medicare Wellness for age 65+ 2007 RSV vaccine for adults or (1 - 1-dose 75+ series) 2017 BMI (ht and wt on same day) for age 18+ 01/29/2024 01/28/2023, 11/26/2022, 11/24/2022, Additional history exists COVID-19 vaccine series ( season) 2024 05/09/2021, 09/24/2020, 09/03/2020 Influenza Vaccine (Season Ended) 2025 05/15/2023, 04/29/2020, 04/09/2020, Additional history exists Tetanus booster 07/27/2029 07/27/2019, 12/2006, 05/08/1997, Additional history exists Pneumococcal series for age 50+ Completed 11/25/2016, 01/17/2010 Zoster (shingles) series for age 50+ Completed 11/05/2018, 08/17/2018 Tdap Completed 07/27/2019, 05/08/1997 Hepatitis B series for 19+ Aged Out N o longer eligible based on patient's age to complete this topic Insurance [facility] MR MEDICARE PART A HB ONLY Advance Directives * Full Code (Latest Code Status on File) Date Activated Date Inactivated Comments 06/19/2013 8:30 AM 06/19/2013 3:02 PM * Full Code Date Activated Date Inactivated Comments 06/05/2013 9:03 AM 06/05/2013 6:19 PM Care Teams Hat Cleaner Relationship Specialty Start Date End Date Pcp, No . PCP - General 05/19/23 Agueda Martinez RN [address] [place] 126725 [employer] Farmer Registered Nurse 10/02/21 Kwesi Castro MD [address] [place] 1634[address] Endocrinology 06/23/22
--- OUTSIDE RECORDS SUMMARY | 2024-11-12 17:32 | XMS_ITS | Encounter Summary ---
Author Organization [place] Address [address] [place] [address] Care Team Providers Care Sap Sd Analyst Name Role Phone Sheryl Stringer Kirk BENITEZ Unavailable [phone] Federico Linda MD Unavailable [phone] Trina Carbajal-C Primary Care Provider [phone] Trina Carbajal-C Unavailable [phone] Jc Zavala MD Unavailable [phone] Cristofer Michelle MD Unavailable [phone] Vivien Blanchard MD Unavailable [phone] Virgie Lobato-C Unavailable [phone] Teetee Velazquez-C Unavailable [phone] Teetee Velazquez-C Unavailable [phone] Brad Mayer DO Unavailable Mary Garcia MD Primary Care Provider [phone] Cristal Cooper RN Unavailable Shannon Rowland PA-C Unavailable [phone], LD Unavailabl e Mary Garcia MD Unavailable Melonie Caro [facility] Unavailable [phone] Federico Linda MD Unavailable [phone] Melonie Caro [facility] Unavailable [phone] Virgie Lobato PA-C Unavailable [phone] Barry Ybarra MD Unavailable [phone] Barry Ybarra MD Unavailable [phone] Encounter Details Date Type Department Care Team (Late st Contact Info) Description 12/03/2023 [facility] [facility] [address] [place] [address] [address] [place] [address] Federico Linda MD [address] 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 Not on file documented as of this encounter Plan of Treatment Upcoming Encounters Date Type Department Care Team (Late st Contact Info) Description 11/16/2024 1:00 PM CDT Allied Health/Nurse Visit [facility] [address] [place] [address] Lucero Britt PA-C [address] [place] [phone] 11/16/2024 2:45 PM CDT Office Visit [facility] 9[address] [facility] 4th [place] [phone] Vivien Blanchard MD 420 [facility] [address] [place], [place] [address] 11/20/2024 3:30 PM CDT Office Visit [facility] [address] [place] [phone] [place] [address] [place], [place] [address] 11/22/2024 9:15 AM CDT Office Visit [facility] [address] [facility] [address] [place] [phone] Federico Linda MD [address] [facility] [address] [place] [address] 11/30/2024 10:30 AM CDT Lab [facility] Laboratory [address] [place] [phone] 12/06/2024 10:10 AM CDT Office Visit [facility] Specialty [facility] [address] [facility] 200 [place] [phone] Virgie Lobato, PA-C [address] [place] [address] 12/28/2024 11:00 AM CDT Office Visit [facility] 2945 [facility] 200 [place] [phone] [place] [address] [place] [address] 200 [place] [address] 01/26/2025 11:30 AM CDT Office Visit [facility] [address] [place] [phone] [place] [address] [place] [address] documented as of this encounter Goals Goal Patient Goal Type Associated Problems Recent Progress Patient-Stated? Author Problem Solving General On track( 019 9:24 AM BREAKDOWN WORKER) Yes Sheryl Stringer RD Note: My [...] Out COVID-19 07/16/2024 07/16/2024 07/16/2024 11:04 PM BREAKDOWN WORKER Rule Out COVID-19 09/01/2024 09/01/2024 09/01/2024 2:05 AM CDT Rule Out COVID-19 09/21/2024 09/21/2024 09/21/2024 3:25 PM CDT Assessment Noted Time PHQ-9 Depression Total Score: 6 10/20/19 24 2:31 PM CDT documented as of this encounter Care Teams Sap Sd Analyst Relationship Specialty Start Date End Date Trina Carbajal PA-C [address] [place] [address] PCP - General Family Medicine 05/19/20 04/10/24 [place] [address] [place] [address] PCP - General Family Medicine 04/11/24 Sheryl Stringer, ELI [address] [place] [address] Decal Cutter Dietitian, Registered 11/03/17 Federico Linda MD [address] [place] [address]85 Assigned Heart and Vascular Provider 03/29/20 Trina Carbajal PA-C [address] [place] [address] Assigned PCP 12/20/20 04/28/24 Jc Zavala MD [facility] [address] [place] [address] Hematology & Oncology 08/07/21 Cristofer Michelle MD [address] [facility] [place] [address] Gastroenterology 07/28/22 Vivien Blanchard MD 420 [facility] [address] [place] [address] Urology 07/28/22 Virgie Lobato PA-C [address] [place] [address] Assigned Nephrology Provider 09/26/22 03/28/24 Teetee Velazquez PA-C 909 [place] [address] Physician Skiver Counter 05/11/23 Teetee Velazquez PA-C 909 [place], [place] 1689[address] Assigned Surgical Provider 07/01/23 [place] [address] [address] [place], [place] [phone] Assigned Musculoskeletal Provider 08/20/23 Cristal Cooper, JERRY Lead Fifth Grade Teacher Primary Care - CC 04/27/2404/08 Shannon Rowland PA-C [address] [place] [address] Assigned PCP 04/29/24 05/28/24 Lanie Foster, RD, LD [address] [place] 8438[address] Registered Dietitian Nutrition 05/15/24 [place] [address] [place] [address] Assigned PCP 05/29/24 Melonie Caro [facility] [address] [place] [address] Pharmacist Pharmacist 06/05/24 Federico Linda MD [address] [facility] [facility] [address] [place] [address] Cardiovascular Disease 06/13/24 Melonie Caro [facility] [address] [place] [address] Assigned MTM Pharmacist 06/29/24 Virgie Lobato PA-C [address] [place] [address] Assigned Nephrology Provider 07/30/24 Barry Ybarra MD [address] [place] [address] Hospitalist Infectious Diseases 08/31/24 Barry Ybarra MD [address] [place] [address] Assigned Infectious Disease Provider 10/27/24 documented as of this encounter
--- OUTSIDE RECORDS SUMMARY | 2024-11-12 17:32 | XMS_ITS | Encounter Summary ---
Author Organization [place] Address [address] [place] [address] Care Team Providers Care Cocktail Server Name Role Phone Sheryl Stringer Kirk BENITEZ Unavailable [phone] Federico Linda MD Unavailable [phone] Trina Carbajal-C Primary Care Provider [phone] Trina Carbajal-C Unavailable +[phone] Jc Zavala MD Unavailable [phone] Cristofer Michelle MD Unavailable [phone] Vivien Blanchard MD Unavailable [phone] Virgie Lobato-C Unavailable +[phone] Teetee Velazquez-C Unavailable +[phone] Teetee Velazquez-C Unavailable [phone] Brad Mayer DO Unavailable [phone] Mary Garcia MD Primary Care Provider Cristal Cooper RN Unavailable Shannon Rowland PA-C Unavailable [phone], LD Unavailabl e Mary Garcia MD Unavailable Melonie Caro [facility] Unavailable [phone] Federico Linda MD Unavailable [phone] Melonie Caro [facility] Unavailable [phone] Virgie Lobato PA-C Unavailable [phone] Barry Ybarra MD Unavailable [phone] Barry Ybarra MD Unavailable [phone] Encounter Details Date Type Department Care Team (Late st Contact Info) Description 03/08/2024 [facility] Nephrology Clinic [address] [address] [facility] Social History Tobacco Use Types Packs/Day Years [...] in an overnight fdc, or couch-surfing.) Yes 01/31/2024 Are you worried [...] Sex Assigned at Female 07/18/2020 1:16 PM SITE LEADER Legal Sex Female 3:23 AM SITE LEADER Gender Identity Female 07/18/2020 1:16 PM SITE LEADER Sexual Orientation Straight 07/18/2020 1: 16 PM SITE LEADER 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 Not on file documented as of this encounter Plan of Treatment Upcoming Encounters Date Type Department Care Team (Late st Contact Info) Description 11/16/2024 1:00 PM CDT Allied Health/Nurse Visit [facility] Urology [address] [address] Lucero Britt PA-C 500 [place], [place] [address] 11/16/2024 2:45 PM CDT Office Visit [facility] Urology [address] [phone] Vivien Blanchard MD 420 [facility] 394 [place] [address] 11/20/2024 3:30 PM CDT Office Visit [facility] [address] [place] [phone] [place] [address] [place] [address] 11/22/2024 9:15 AM CDT Office Visit [facility] Heart [facility] [address] [facility] [address] [place] [address] Federico Linda MD [address] [facility] [address] [place], [place] [address] 11/30/2024 10:30 AM CDT Lab [facility] [address] [place] [phone] 12/06/2024 10:10 AM CDT Office Visit [facility] 6525 [facility] 200 [place] [phone] Virgie Lobato, PA-C [address] [place] [address] 12/28/2024 11:00 AM CDT Office Visit [facility] 2945 [facility] 200 [place] [phone] [place] [address] [place] [address] 200 [place] [address] 01/26/2025 11:30 AM CDT Office Visit [address] [phone] [place] [address] [place] [address] documented as of this encounter Goals Goal Patient Goal Type Associated Problems Recent Progress Patient-Stated? Author Problem Solving General On track( 019 9:24 AM SITE LEADER) Yes Sheryl Stringer RD Note: My [...] Out COVID-19 07/16/2024 07/16/2024 07/16/2024 11:04 PM SITE LEADER Rule Out COVID-19 09/01/2024 09/01/2024 09/01/2024 2:05 AM CDT Rule Out COVID-19 09/21/2024 09/21/2024 09/21/2024 3:25 PM CDT Assessment Noted Time PHQ-9 Depression Total Score: 2 12/06/19 24 9:44 AM CDT documented as of this encounter Care Teams Cocktail Server Relationship Specialty Start Date End Date Trina Carbajal PA-C [address] [facility] [address] [place] [address] PCP - General Family Medicine 05/19/20 04/10/24 [place] [address] [place] [address] PCP - General Family Medicine 04/11/[address] [facility] MICHELLE [address] [place] [address] [place] [address] Wildlife Control Agent Dietitian, Registered 11/03/17 Federico Linda MD [address] [place] [address] Assigned Heart and Vascular Provider 03/29/20 Trina Carbajal PA-C [address] [place] [address] Assigned PCP 12/20/20 04/28/24 Jc Zavala MD MD [facility] [address] 100 [place] [address] Hematology & Oncology 08/07/21 Cristofer Michelle MD [address] [place], [place] [address]B 1E [place], [place] [address] Gastroenterology 07/28/22 Vivien Blanchard MD [address] [place] [address] 394 [place], [place] 7[address] Urology 07/28/22 Virgie Lobato PA-C [address] [place] [address] 960935 Assigned Nephrology Provider 09/26/22 03/28/24 Teetee Velazquez PA-C [address] [place] [address] Physician Attorney Lawyer 05/11/23 Teetee Velazquez PA-C 909 [place] [address] Assigned Surgical Provider 07/01/23 [place] [address] [address] [place] [address] Assigned Musculoskeletal Provider 08/20/23 Cristal Cooper, JERRY Lead Disc Pad Grinder Primary Care - CC 04/27/2404/08 Shannon Rowladn PA-C [address] [place] [address] Assigned PCP 04/29/24 05/28/24 Lanie Foster, RD, LD [address] [place] MD [id number] Registered Dietitian Nutrition 05/15/24 [place] [address] [place] [address] Assigned PCP 05/29/24 Melonie Caro Gin [address] [place], [place] [address] Pharmacist Pharmacist 06/05/24 Federico Linda MD [address] [facility] [address] [place] [address] Cardiovascular Disease 06/13/24 Melonie Caro Gin [address] [place] [address] Assigned MTM Pharmacist 06/29/24 Virgie Lobato PA-C [address] [place] [address] Assigned Nephrology Provider 07/30/24 Barry Ybarra MD [address] [place] [address] Hospitalist Infectious Diseases 08/31/24 Barry Ybarra MD [address] [place] [address] Assigned Infectious Disease Provider 10/27/24 documented as of this encounter
--- OUTSIDE RECORDS SUMMARY | 2024-11-12 17:32 | XMS_ITS | Encounter Summary ---
Author Organization [place] Address [address] [place] [address] Care Team Providers Care Insurance Plan Specialist Name Role Phone Sheryl Stringer Kirk BENITEZ Unavailable [phone] Federico Linda MD Unavailable [phone] Trina Carbajal-C Primary Care Provider [phone] Trina Carbajal-C Unavailable +[phone] Jc Zavala MD Unavailable [phone] Cristofer Michelle MD Unavailable [phone] Vivien Blanchard MD Unavailable [phone] Virgie Lobato-C Unavailable [phone] Teetee Velazquez-C Unavailable [phone] Teetee Velazquez-C Unavailable [phone] Brad Mayer DO Unavailable [phone] Mary Garcia MD Primary Care Provider [phone] Cristal Cooper RN Unavailable Shannon Rowland PA-C Unavailable [phone], LD Unavailabl e Mary Garcia MD Unavailable Melonie Caro [facility] Unavailable [phone] Federico Linda MD Unavailable [phone] Melonie Caro [facility] Unavailable [phone] Virgie Lobato PA-C Unavailable [phone] Barry Ybarra MD Unavailable [phone] Barry Ybarra MD Unavailable [phone] Encounter Details Date Type Department Care Team (Late st Contact Info) Description 02/28/2024 [facility] Medical Advice [address] [address] Trina Carbajal PA-C 4420 [facility] 200 [place] [address] Social History Tobacco Use Types [...] in an overnight snf, or couch-surfing.) Yes 01/31/2024 Are you worried [...] Assigned at Female 07/18/2020 1:16 PM GLAZE SUPERVISOR Legal Sex Female 3:23 AM GLAZE SUPERVISOR Gender Identity Female 07/18/2020 1:16 PM GLAZE SUPERVISOR Sexual Orientation Straight 07/18/2020 1: 16 PM GLAZE SUPERVISOR 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 Not on file documented as of this encounter Plan of Treatment Upcoming Encounters Date Type Department Care Team (Late st Contact Info) Description 11/16/2024 1:00 PM CDT Allied Health/Nurse Visit [facility] Urology Clinic [address]th [place] [address] Lucero Britt PA-C [address] [place] [id number] 11/16/2024 2:45 PM CDT Office Visit [facility] U[facility] [place] 909 [facility] 4th [place] [phone] Vivien Blanchard MD 420 [facility] 394 [place] [address] 11/20/2024 3:30 PM CDT Office Visit [facility] [address] [place] [address] [place] [address] [place] [address] 11/22/2024 9:15 AM CDT Office Visit [facility] Heart [facility] [address] [facility] [address] [place] [phone] Federico Linda MD 6[address] [facility] [address] [place] [address] 11/30/2024 10:30 AM CDT Lab [facility] [address] [place] [phone] 12/06/2024 10:10 AM CDT Office Visit [facility] Specialty [facility] 6525 [facility] 200 [place] [address] Virgie Lobato, PA-C 909 [place] [address] 12/28/2024 11:00 AM CDT Office Visit [facility] 2945 [facility] 200 [place] [phone] Barry Ybarra MD [address] [place] [address] 200 [place] [address] 01/26/2025 11:30 AM CDT Office Visit [facility] [address] [place] [phone] [place] [address] [address] [address] documented as of this encounter Goals Goal Patient Goal Type Associated Problems Recent Progress Patient-Stated? Author Problem Solving General On track( 019 9:24 AM GLAZE SUPERVISOR) Yes Sheryl Stringer RD Note: My [...] COVID-19 07/16/2024 07/16/2024 07/16/2024 11:04 PM GLAZE SUPERVISOR Rule Out COVID-19 09/01/2024 09/01/2024 09/01/2024 2:05 AM CDT Rule Out COVID-19 09/21/2024 09/21/2024 09/21/2024 3:25 PM CDT Assessment Noted Time PHQ-9 Depression Total Score: 2 12/06/19 9:44 AM CDT documented as of this encounter Care Teams Insurance Plan Specialist Relationship Specialty Start Date End Date Trina Carbajal PA-C [address] [place] [address] PCP - General Family Medicine 05/19/20 04/10/24 [place] [address] [place] [address] PCP - General Family Medicine 04/11/24 Sheryl Stringer, RD [address] [place] [address] Welt Maker Dietitian, Registered 11/03/17 Federico Linda MD [address] [place] [address] Assigned Heart and Vascular Provider 03/29/20 Trina Carbajal PA-C [address] [place] [address] Assigned PCP 12/20/20 04/28/24 Jc Zavala MD [place] OCOLOGY H[facility]ATOLOGY [facility]5 [facility] 100 [place] [address] Hematology & Oncology 08/07/21 Cristofer Michelle MD 6 [facility] 1E [place] [address] Gastroenterology 07/28/22 Vivien Blanchard MD 420 [facility] 394 [place] [address] Urology 07/28/22 Virgie Lobato PA-C 909 [place] [address] Assigned Nephrology Provider 09/26/22 03/28/24 Teetee Velazquez PA-C 9 [place] [address] Physician It Admin 05/11/23 Teetee Velazquez PA-C 909 [place], [place] 815675 Assigned Surgical Provider 07/01/23 [place] [address] [facility] [address] [place], [place] [address] Assigned Musculoskeletal Provider 08/20/23 Cristal Cooper, JERRY Lead Radio Commentator Primary Care - CC 04/27/2404/08 Shannon Rowland PA-C [address] [place] [address] Assigned PCP 04/29/24 05/28/24 Lanie Foster, RD, LD [address] [place] [place] 41[address] Registered Dietitian Nutrition 05/15/24 [place] [address] [place] [address] Assigned PCP 05/29/24 Melonie Caro [facility] [address] [place] [address] Pharmacist Pharmacist 06/05/24 Federico Linda MD [address] [facility] [address] [place] [address] Cardiovascular Disease 06/13/24 Melonie Caro [facility] [address] [place] [address] Assigned MTM Pharmacist 06/29/24 Virgie Lobato PA-C [address] [place] [address] Assigned Nephrology Provider 07/30/24 Barry Ybarra MD [address] [place] [address] Hospitalist Infectious Diseases 08/31/24 Barry Ybarra MD [address] [place] [address] Assigned Infectious Disease Provider 10/27/24 documented as of this encounter
--- OUTSIDE RECORDS SUMMARY | 2024-11-12 17:32 | XMS_ITS | Encounter Summary ---
Author Organization [place] Address [address] [place] [address] Care Team Providers Care Ultrasonic Solderer Name Role Phone Sheryl Stringer Kirk BENITEZ Unavailable [phone] Federico Linda MD Unavailable [phone] Trina Carbajal-C Primary Care Provider Carlos Livingston MD Unavailable Jelena vailable Trina CarbajalC Unavailable [phone] Jc Zavala MD Unavailable [phone] Barbi Manzo RN Unavailable Unavailable Erasto Root MD Unavailable Cristofer Michelle MD Unavailable [phone] Vivien Blanchard MD Unavailable [phone] Sapna Hernandez MD Unavailable Vivien Blanchard MD Unavailable [phone] Virgie Lobato-C Unavailable [phone] Teetee Velazquez PA-C Unavailable Teetee Velazquez PA-C Unavailable [phone] Cora Shah RN Unavailable Moreno, Brad Unavailable [phone] Mary Garcia MD Primary Care Provider Cristal Cooper RN Unavailable Shannon Rowland PA-C Unavailable [phone], LD Unavailabl e Mary Garcia MD Unavailable Melonie Caro [facility] Unavailable Federico Linda MD Unavailable Melnoie Caro [facility] Unavailable Virgie Lobato PA-C Unavailable [phone] Barry Ybarra MD Unavailable Barry Ybarra MD Unavailable Encounter Details Date Type Department Care Team (Late st Contact Info) Description 04/09/2022 [facility] Medical [facility] [place] 7606 [facility] [address] [place] [address] Teetee Velazquez PA-C 2 [place] [address] Social History Tobacco Use Types Packs/Day Years Used Date Smoking Tobacco: Never Smokeless Tobacco: Never Alcohol Use Standard Drinks/Week Comments No 0 (1 standard drink = 0.6 oz pur e alcohol) PHQ-2 Answer Date Recorded PHQ-2 Score 0 04/08/2022 Comments No Sex and Gender Information Value Date Recorded Sex Assigned at Female 07/18/2020 1:16 PM NUTRITIONIST Legal Sex Female 3:23 AM NUTRITIONIST Gender Identity Female 07/18/2020 1:16 PM NUTRITIONIST Sexual Orientation Straight 07/18/2020 1: 16 PM NUTRITIONIST 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 No / Unsure 04/10/2022 11:19 AM CDT documented as of this encounter Plan of Treatment Upcoming Encounters Date Type Department Care Team (Late st Contact Info) Description 11/16/2024 1:00 PM CDT Allied Health/Nurse Visit [facility] Urology [address] [phone] Lucero Britt PA-C 500 [place], [place] [phone] 11/16/2024 2:45 PM CDT Office Visit [facility] Urology [address] [phone] Vivien Blanchard MD 420 [facility] 394 [place], [place] [address] 11/20/2024 3:30 PM CDT Office Visit [address] [address] Mary Garcia MD [address] [place] [address] 11/22/2024 9:15 AM CDT Office Visit [facility] 9[address] [facility] [address] [place] [phone] Federico Linda MD 95[address] [facility] [address] [place], [place] [address] 11/30/2024 10:30 AM CDT Lab [facility] [address] [place] [address] 12/06/2024 10:10 AM CDT Office Visit [facility] [address] [phone] Virgie Lobato PA-C [address] [place] [address] 12/28/2024 11:00 AM CDT Office Visit [facility] [address] [phone] [place] [address] [place] [address] 01/26/2025 11:30 AM CDT Office Visit [facility] [address] [place] [address] [place] Garcia [place] [address] [place] [address] documented as of this encounter Goals Goal Patient Goal Type Associated Problems Recent Progress Patient-Stated? Author Problem Solving General On track( 019 9:24 AM NUTRITIONIST) Yes Sheryl Stringer RD Note: My Goal: [...] Out COVID-19 06/14/2022 06/14/2022 06/14/2022 11:30 AM NUTRITIONIST Rule Out COVID-19 07/03/2022 07/03/2022 07/04/2022 12:27 AM NUTRITIONIST Rule Out COVID-19 04/01/2024 04/01/2024 04/01/2024 10:07 PM CDT ESBL 07/05/2024 08/24/2024 Rule Out COVID-19 07/16/2024 07/16/2024 07/16/2024 11:04 PM NUTRITIONIST Rule Out COVID-19 09/01/2024 09/01/2024 09/01/2024 2:05 AM CDT Rule Out COVID-19 09/21/2024 09/21/2024 09/21/2024 3:25 PM CDT Assessment Noted Time PHQ-9 Depression Total Score: 5 03/12/20 22 3:06 PM CDT documented as of this encounter Care Teams Ultrasonic Solderer Relationship Specialty Start Date End Date Trina Carbajal PA-C [address] [place] [address] PCP - General Family Medicine 05/19/20 04/10/24 [place] [address] [place] [address] PCP - General Family Medicine 04/11/[address] [place] [address] Dementia Program Director Dietitian, Registered 11/03/17 Federico Linda MD [address] [place] [address] Assigned Heart and Vascular Provider 03/29/20 Carlos Livingston MD NO INFO AVAILABLE Assigned Endocrinology Provider 12/20/20 12/18/22 Trina Carbajal PA-C [address] [place] [address] Assigned PCP 12/20/20 04/28/24 Jc Zavala MD [facility] [address] [place] [address] Hematology & Oncology 08/07/21 Barbi Manzo, JERRY Personal Advocate & Liaison (PAL) Family Medicine 12/24/21 07/08/23 [place] [address] [address] [place] [address] Assigned Musculoskeletal Provider 04/04/22 08/19/23 Cristofer Michelle MD [address] [place] [address] 1E [place] [address] Gastroenterology 07/28/22 Vivien Blanchard MD 420 [facility] 394 [place], [place] [address] Urology 07/28/22 Sapna Hernandez MD 420 [facility] 394 [place] [address] Assigned Nephrology Provider 07/11/22 09/25/22 Vivien Blanchard MD 420 [facility] 394 [place], [place] [address] Assigned Surgical Provider 07/25/22 06/30/23 Virgie Lobato, PA-C 909 [place], [place] 4[address]45 Assigned Nephrology Provider 09/26/22 03/28/24 Teetee Velazquez PA-C 909 [place] [address] Physician Pull Out Operator 05/11/23 Teetee Velazquez PA-C 909 [place], [place] 6[address] Assigned Surgical Provider 07/01/23 Cora Shah, JERRY Personal Advocate & Liaison (PAL) Nurse 07/09/23 09/29/23 [place] [address] [facility] [address] [address] Assigned Musculoskeletal Provider 08/20/23 Cristal Cooper RN Lead Gas Line Installer Primary Care - CC 04/27/2404/08 Shannon Rowland PA-C [address] [place] [phone] Assigned PCP 04/29/24 05/28/24 Lanie Foster, RD, LD [address] [place] [address] Registered Dietitian Nutrition 05/15/24 [place] [address] [place] [address] Assigned PCP 05/29/24 Melonie Caro RPH [address] [place], [place] [address] Pharmacist Pharmacist 06/05/24 Federico Linda MD [address] [place], [place] [address] Cardiovascular Disease 06/13/24 Melonie Caro RPH [address] [place] [address] Assigned MTM Pharmacist 06/29/24 Virgie Lobato, PAAnthonyC [address] [place] [address] [id number] Assigned Nephrology Provider 07/30/24 Barry Ybarra MD [address] [place] [address] Hospitalist Infectious Diseases 08/31/24 Barry Ybarra MD [address] [place] [address] Assigned Infectious Disease Provider 10/27/24 documented as of this encounter
--- OUTSIDE RECORDS SUMMARY | 2024-11-12 17:32 | XMS_ITS | Encounter Summary ---
Author Organization [place] Address [address] [place] [address] Care Team Providers Care Supervisor Asphalt Paving Name Role Phone Sheryl Stringer Kirk BENITEZ Unavailable [phone] Federico Linda MD Unavailable [phone] Trina Carbajal-C Primary Care Provider [phone] Trina Carbajal-C Unavailable +[phone] Jc Zavala MD Unavailable [phone] Cristofer Michelle MD Unavailable [phone] Vivien Blanchard MD Unavailable +[phone] Virgie Lobato-C Unavailable +[phone] Teetee Velazquez-C Unavailable +[phone] Teetee Velazquez-C Unavailable [phone] Brad Mayer DO Unavailable [phone] Mary Garcia MD Primary Care Provider Cristal Cooper RN Unavailable Shannon Rowland PA-C Unavailable [phone], LD Unavailabl e Mary Garcia MD Unavailable Melonie Caro [facility] Unavailable [phone] Federico Linda MD Unavailable [phone] Melonie Caro [facility] Unavailable +[phone] Virgie Lobato PA-C Unavailable +[phone] Barry Ybarra MD Unavailable +[phone] Barry Ybarra MD Unavailable +[phone] Encounter Details Date Type Department Care Team (Late st Contact Info) Description 03/07/2024 [facility] Specialty [address] [address] Virgie Lobato PA-C 9 [place] [address] Social History Tobacco Use Types [...] in an abandoned building, in an overnight intermediate, or couch-surfing.) Yes 01/31/2024 Are you worried [...] Sex Assigned at Female 07/18/2020 1:16 PM DEMAND GENERATOR MANAGER Legal Sex Female 3:23 AM DEMAND GENERATOR MANAGER Gender Identity Female 07/18/2020 1:16 PM DEMAND GENERATOR MANAGER Sexual Orientation Straight 07/18/2020 1: 16 PM DEMAND GENERATOR MANAGER 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 Not on file documented as of this encounter Plan of Treatment Upcoming Encounters Date Type Department Care Team (Late st Contact Info) Description 11/16/2024 1:00 PM CDT Allied Health/Nurse Visit [facility] Urology Clinic [address] 4th [place] [address] Lucero Britt PA-C 500 [place], [place] [address] 11/16/2024 2:45 PM CDT Office Visit [facility] [place] 909 [facility] 4th [place] [address] Vivien Blanchard MD 420 [facility] 394 [place] [address] 11/20/2024 3:30 PM CDT Office Visit [facility] [address] [place] [phone] [place] [address] [place] [address] 11/22/2024 9:15 AM CDT Office Visit [facility] Heart [facility] [address] [facility] [address] [place] [address] Federico Linda MD 6405 [facility] [address] [place] [address] 11/30/2024 10:30 AM CDT Lab [facility] [address] [place] [address] 12/06/2024 10:10 AM CDT Office Visit [facility] Specialty [facility] 6525 [facility] 200 [place] [address] Virgie Lobato, PA-C 909 [place] [address] 12/28/2024 11:00 AM CDT Office Visit [facility] 2945 [facility] 200 [place] [address] Barry Ybarra MD [address] [place] [address] 200 [place] [address] 01/26/2025 11:30 AM CDT Office Visit [facility] [address] [place] [phone] [place] [address] [place] [address] documented as of this encounter Goals Goal Patient Goal Type Associated Problems Recent Progress Patient-Stated? Author Problem Solving General On track( 019 9:24 AM DEMAND GENERATOR MANAGER) Yes Sheryl Stringer RD Note: My [...] Out COVID-19 07/16/2024 07/16/2024 07/16/2024 11:04 PM DEMAND GENERATOR MANAGER Rule Out COVID-19 09/01/2024 09/01/2024 09/01/2024 2:05 AM CDT Rule Out COVID-19 09/21/2024 09/21/2024 09/21/2024 3:25 PM CDT Assessment Noted Time PHQ-9 Depression Total Score: 2 12/06/19 24 9:44 AM CDT documented as of this encounter Care Teams Supervisor Asphalt Paving Relationship Specialty Start Date End Date Trina Carbajal PA-C [address] [facility] [address] [place] [address] PCP - General Family Medicine 05/19/20 04/10/24 [place] [address] [place] [address] PCP - General Family Medicine 04/11/24 Sheryl Stringer, ELI [address] [place] [id number] Physician Ophthalmologist Dietitian, Registered 11/03/17 Federico Linda MD [address] [place] 333245 Assigned Heart and Vascular Provider 03/29/20 Trina Carbajal PA-C [address] [place], [place] 9[address] Assigned PCP 12/20/20 04/28/24 Jc Zavala MD [place] [facility] [address] [facility] 100 [place], [place] [phone] Hematology & Oncology 08/07/21 Cristofer Michelle MD [facility] [place] [address] Gastroenterology 07/28/22 Vivien Blanchard MD [address] [place] [address] [facility] [address] [place] [address] Urology 07/28/22 Virgie Lobato PA-C [address] [place] [address] Assigned Nephrology Provider 09/26/22 03/28/24 Teetee Velazquez PA-C [address] [place] [address] Physician Briquette Maker 05/11/23 Teetee Velazquez PAAnthonyC 909 [place], [place] 566285 Assigned Surgical Provider 07/01/23 [place] [address] [address], [address] [place], [place] [address]497 Assigned Musculoskeletal Provider 08/20/23 Cristal Cooper, JERRY Lead Gear Milling Machine Set Up Operator Primary Care - CC 04/27/2404/08 Shannon Rowland PA-C [address] [place] [address] Assigned PCP 04/29/24 05/28/24 Lanie Foster, RD, LD [address] [place] 367985 Registered Dietitian Nutrition 05/15/24 [place] [address] [place] [address] Assigned PCP 05/29/24 Melonie Caro [facility] [address] [place] [address] Pharmacist Pharmacist 06/05/24 Federico Linda MD [address] [facility] [address] [place] [address] Cardiovascular Disease 06/13/24 Melonie Caro [facility] [address] [place] [address] Assigned MTM Pharmacist 06/29/24 Virgie Lobato, GIUSEPPEC [address] [place] [address] Assigned Nephrology Provider 07/30/24 Barry Ybarra MD [address] [place] [address] Hospitalist Infectious Diseases 08/31/24 Barry Ybarra MD [address] [place] [address] Assigned Infectious Disease Provider 10/27/24 documented as of this encounter
--- OUTSIDE RECORDS SUMMARY | 2024-11-12 17:32 | XMS_ITS | Encounter Summary ---
Author Organization [place] Address [address] [place] [address] Care Team Providers Care Lanolin Plant Operator Name Role Phone Sheryl Stringer Kirk BENITEZ Unavailable [phone] Federico Linda MD Unavailable [phone] Trina Carbajal-C Primary Care Provider [phone] Trina Carbajal-C Unavailable +[phone] Jc Zavala MD Unavailable [phone] Cristofer Michelle MD Unavailable [phone] Vivien Blanchard MD Unavailable [phone] Virgie Lobato-C Unavailable [phone] Teetee Velazquez-C Unavailable [phone] Teetee Velazquez-C Unavailable [phone] Brad Mayer DO Unavailable [phone] Mary Garcia MD Primary Care Provider Cristal Cooper RN Unavailable Shannon Rowland PA-C Unavailable [phone], LD Unavailabl e Mary Garcia MD Unavailable Melonie Caro [facility] Unavailable [phone] Federico Linda MD Unavailable [phone] Melonie Caro [facility] Unavailable [phone] Virgie Lobato PA-C Unavailable +[phone] Barry Ybarra MD Unavailable [phone] Barry Ybarra MD Unavailable [phone] Encounter Details Date Type Department Care Team (Late st Contact Info) Description 03/13/2024 [facility] Specialty [address] [address] Virgie Lobato PA-C 9 [place] [address] Social History Tobacco Use Types [...] an overnight long term, or couch-surfing.) Yes 01/31/2024 Are you worried [...] Assigned at Female 07/18/2020 1:16 PM MEDICAL BILLING COORDINATOR Legal Sex Female 3:23 AM MEDICAL BILLING COORDINATOR Gender Identity Female 07/18/2020 1:16 PM MEDICAL BILLING COORDINATOR Sexual Orientation Straight 07/18/2020 1: 16 PM MEDICAL BILLING COORDINATOR 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 Not on file Not on file documented as of this encounter Plan of Treatment Upcoming Encounters Date Type Department Care Team (Late st Contact Info) Description 11/16/2024 1:00 PM CDT Allied Health/Nurse Visit [facility] Urology Clinic [address] 4th [place] [address] Lucero Britt PA-C 500 [place], [place] [address] 11/16/2024 2:45 PM CDT Office Visit [facility] [place] 909 [facility] 4th [place] [address] Vivien Blanchard MD 420 [facility] 394 [place] [address] 11/20/2024 3:30 PM CDT Office Visit [facility] [address] [place] [phone] [place] [address] [place] [address] 11/22/2024 9:15 AM CDT Office Visit [facility] Heart [facility] [address] [facility] [address] [place] [phone] Federico Linda MD 6405 [facility] [address] [place] [address] 11/30/2024 10:30 AM CDT Lab [facility] [address] [place] [address] 12/06/2024 10:10 AM CDT Office Visit [facility] Specialty [facility] 6525 [facility] 200 [place] [address] Virgie Lobato, PA-C 909 [place] [address] 12/28/2024 11:00 AM CDT Office Visit [facility] 2945 [facility] 200 [place] [address] Barry Ybarra MD [address] [place] [address] 200 [place] [address] 01/26/2025 11:30 AM CDT Office Visit [facility] [address] [place] [phone] [place] [address] [place] [address] documented as of this encounter Goals Goal Patient Goal Type Associated Problems Recent Progress Patient-Stated? Author Problem Solving General On track( 019 9:24 AM MEDICAL BILLING COORDINATOR) Yes Sheryl Stringer RD Note: My [...] Out COVID-19 07/16/2024 07/16/2024 07/16/2024 11:04 PM MEDICAL BILLING COORDINATOR Rule Out COVID-19 09/01/2024 09/01/2024 09/01/2024 2:05 AM CDT Rule Out COVID-19 09/21/2024 09/21/2024 09/21/2024 3:25 PM CDT Assessment Noted Time PHQ-9 Depression Total Score: 2 12/06/19 24 9:44 AM CDT documented as of this encounter Care Teams Lanolin Plant Operator Relationship Specialty Start Date End Date Trina Carbajal PA-C [address] [facility] [address] [place] [address] PCP - General Family Medicine 05/19/20 04/10/24 [place] [address] [place] [address] PCP - General Family Medicine 04/11/24 Sheryl Stringer, ELI [address] [place] [phone] Gm Dietitian, Registered 11/03/17 Federico Linda MD [address] [place] [address]115 Assigned Heart and Vascular Provider 03/29/20 Trina Carbajal PA-C [address] [place], [place] [address]295 Assigned PCP 12/20/20 04/28/24 Jc Zavala MD [place] OCOLOGY HEMATOLOGY [address] [facility] 100 [place], [place] [address] Hematology & Oncology 08/07/21 Cristofer Michelle MD 6 [facility] 1E [place] [address] Gastroenterology 07/28/22 Vivien Blanchard MD [address] [place] [address] [facility] [address] [place] [address] Urology 07/28/22 Virgie Lobato PA-C [address] [place] [address] Assigned Nephrology Provider 09/26/22 03/28/24 Teetee Velazquez PA-C [address] [place] [address] Physician Hvac Engineer 05/11/23 Teetee Velazquez PAAnthonyC 909 [place], [place] 366825 Assigned Surgical Provider 07/01/23 [place] [address] [address], [address] [place], [place] 250597 Assigned Musculoskeletal Provider 08/20/23 Cristal Cooper, JERRY Lead Measurement Operator Primary Care - CC 04/27/2404/08 Shannon Rowland PA-C [address] [place] [address] Assigned PCP 04/29/24 05/28/24 Lanie Foster, RD, LD [address] [place] 9[address] Registered Dietitian Nutrition 05/15/24 [place] [address] [place] [address] Assigned PCP 05/29/24 Melonie Caro [facility] [address] [place] [address] Pharmacist Pharmacist 06/05/24 Federico Linda MD [address] [facility] [address] [place] [address] Cardiovascular Disease 06/13/24 Melonie Caro [facility] [address] [place] [address] Assigned MTM Pharmacist 06/29/24 Virgie Lobato, GIUSEPPEC [address] [place] [address] Assigned Nephrology Provider 07/30/24 Barry Ybarra MD [address] [place] [address] Hospitalist Infectious Diseases 08/31/24 Barry Ybarra MD [address] [place] [address] Assigned Infectious Disease Provider 10/27/24 documented as of this encounter
--- OUTSIDE RECORDS SUMMARY | 2024-11-12 17:32 | XMS_ITS | Encounter Summary ---
Author Organization [place] Address [address] [place] [address] Care Team Providers Care Braider Tender Name Role Phone Sheryl Stringer Kirk BENITEZ Unavailable [phone] Federico Linda MD Unavailable [phone] Trina Carbajal-C Primary Care Provider [phone] Trina Carbajal-C Unavailable +[phone] Jc Zavala MD Unavailable [phone] Cristofer Michelle MD Unavailable [phone] Vivien Blanchard MD Unavailable +[phone] Virgie Lobato-C Unavailable +[phone] Teetee Velazquez-C Unavailable +[phone] Teetee Velazquez-C Unavailable [phone] Brad Mayer DO Unavailable [phone] Mary Garcia MD Primary Care Provider Cristal Cooper RN Unavailable Shannon Rowland PA-C Unavailable Lanie Foster RD, LD Unavailabl e Mary Garcia MD Unavailable Melonie Caro [facility] Unavailable [phone] Federico Linda MD Unavailable [phone] Melonie Caro [facility] Unavailable [phone] Virgie Lobato PA-C Unavailable [phone] Barry Ybarra MD Unavailable [phone] Barry Ybarra MD Unavailable [phone] Encounter Details Date Type Department Care Team (Late st Contact Info) Description 03/03/2024 [facility] Medical Advice [facility] Urology Clinic [address] [place] [address] Teetee Velazquez PA-C 909 [place] [address] Social History Tobacco Use Types [...] in an overnight halfway, or couch-surfing.) Yes 01/31/2024 Are you worried [...] Sex Assigned at Female 07/18/2020 1:16 PM 3RD MATE Legal Sex Female 3:23 AM 3RD MATE Gender Identity Female 07/18/2020 1:16 PM 3RD MATE Sexual Orientation Straight 07/18/2020 1: 16 PM 3RD MATE 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 Not on file Not on file documented as of this encounter Plan of Treatment Upcoming Encounters Date Type Department Care Team (Late st Contact Info) Description 11/16/2024 1:00 PM CDT Allied Health/Nurse Visit [facility] [address]th [place] [address] Lucero Britt PA-C [address] [place] [address] 11/16/2024 2:45 PM CDT Office Visit [facility] Urology [facility] 909 [facility] 4th [place] [address] Vivien Blanchard MD 420 [facility] 394 [place] [address] 11/20/2024 3:30 PM CDT Office Visit [facility] [address] [place] [address] [place] [address] [place] [address] 11/22/2024 9:15 AM CDT Office Visit [facility] [address] [facility] [address] [place] [address] Federico Linda MD 6405 [facility] [address] [place] [address] 11/30/2024 10:30 AM CDT Lab [facility] [address] [place] [address] 12/06/2024 10:10 AM CDT Office Visit [facility] Specialty [facility] 6525 [facility] 200 [place] [address] Virgie Lobato, PA-C 909 [place] [address] 12/28/2024 11:00 AM CDT Office [facility] 2945 [facility] 200 [place] [address] Barry Ybarra MD [address] [place] [address] 200 [place] [address] 01/26/2025 11:30 AM CDT Office Visit [facility] [address] [place] [phone] [place] [address] [place] [address] documented as of this encounter Goals Goal Patient Goal Type Associated Problems Recent Progress Patient-Stated? Author Problem Solving General On track( 019 9:24 AM 3RD MATE) Yes Sheryl Stringer RD Note: My Goal: [...] Out COVID-19 07/16/2024 07/16/2024 07/16/2024 11:04 PM 3RD MATE Rule Out COVID-19 09/01/2024 09/01/2024 09/01/2024 2:05 AM CDT Rule Out COVID-19 09/21/2024 09/21/2024 09/21/2024 3:25 PM CDT Assessment Noted Time PHQ-9 Depression Total Score: 2 12/06/19 24 9:44 AM CDT documented as of this encounter Care Teams Braider Tender Relationship Specialty Start Date End Date Trina Carbajal PA-C [address] [place] [address] PCP - General Family Medicine 05/19/20 04/10/24 [place] [address] [place] [address] PCP - General Family Medicine 04/11/[address] [place] [address] Sole Cutter Dietitian, Registered 11/03/17 Federico Linda MD [address] [place], [place] 2650[address] Assigned Heart and Vascular Provider 03/29/20 Trina Carbajal PAAnthonyC [address] [place], [place] [address] Assigned PCP 12/20/20 04/28/24 Jc Zavala MD [place] OCOLOGY HEMATOLOGY [facility]5 E [facility] 100 [place], [place] [address] Hematology & Oncology 08/07/21 Cristofer Michelle MD [address] [place], [place] [address]B 1E [place] [address] Gastroenterology 07/28/22 Vivien Blanchard MD [address] [place] [address] [facility] [address] [place] [address] Urology 07/28/22 Virgie Lobato PA-C [address] [place] [address] Assigned Nephrology Provider 09/26/22 03/28/24 Teetee Velazquez PA-C [address] [place] [address] Physician Bar Finish Operator 05/11/23 Teetee Velazquez PAAnthonyC 909 [place] [address] Assigned Surgical Provider 07/01/23 [place] [address] [address], [facility] 300 [place], [place] [address]157 Assigned Musculoskeletal Provider 08/20/23 Cristal Cooper, JERRY Lead Solid Glass Rod Dowel Machine Operator Primary Care - CC 04/27/2404/08 Shannon Rowland PA-C [address] [place] [address] Assigned PCP 04/29/24 05/28/24 Lanie Foster, RD, LD [address] [place] 993325 Registered Dietitian Nutrition 05/15/24 [place] [address] [place] [address] Assigned PCP 05/29/24 Melonie Caro [facility] [address] [place], [place] 4[address] Pharmacist Pharmacist 06/05/24 Federico Linda MD [address] [place] [address] Cardiovascular Disease 06/13/[address] [facility] [address] [place] [address] Assigned MTM Pharmacist 06/29/24 Virgie Lobato PA-C [address] [place] [address] Assigned Nephrology Provider 07/30/24 Barry Ybarra MD [address] [place] [address] Hospitalist Infectious Diseases 08/31/24 Barry Ybarra MD [address] [place] [address] Assigned Infectious Disease Provider 10/27/24 documented as of this encounter
--- OUTSIDE RECORDS SUMMARY | 2024-11-12 17:32 | XMS_ITS | Encounter Summary ---
Author Organization [facility] Address [address] [place] [address] Care Team Providers Care An/Sqq 89(V)15 Sonar System Journeyman Name Role Phone Sheryl Stringer Kirk BENITEZ Unavailable [phone] Federico Linda MD Unavailable [phone] Trina Carbajal-C Primary Care Provider [phone] Trina Carbajal-C Unavailable +[phone] Jc Zavala MD Unavailable [phone] Crisotfer Michelle MD Unavailable [phone] Vivien Blanchard MD Unavailable +[phone] Virgie Lobato-C Unavailable +[phone] Teetee Velazquez-C Unavailable +[phone] Teetee Velazquez-C Unavailable +[phone] Brad Mayer DO Unavailable [phone] Mary Garcia MD Primary Care Provider [phone] Cristal Cooper RN Unavailable Shannon Rowland PA-C Unavailable [phone], LD Unavailabl e Mary Garcia MD Unavailable Melonie Caro [facility] Unavailable [phone] Federico Linda MD Unavailable [phone] Melonie Caro [facility] Unavailable +[phone] Virgie Lobato PA-C Unavailable +[phone] Barry Ybarra MD Unavailable +[phone] Barry Ybarra MD Unavailable [phone] Encounter Details Date Type Department Care Team (Late st Contact Info) Description 02/28/2024 MyC Medical Advice [address] [address] Marjorie Schultz PA-C [id number] [place] [address] Social History Tobacco Use Types Packs/Day Years [...] an overnight nursing home, or couch-surfing.) Yes 01/31/2024 Are you worried [...] Sex Assigned at Female 07/18/2020 1:16 PM OVERHEAD CLEANER MAINTAINER Legal Sex Female 3:23 AM OVERHEAD CLEANER MAINTAINER Gender Identity Female 07/18/2020 1:16 PM OVERHEAD CLEANER MAINTAINER Sexual Orientation Straight 07/18/2020 1: 16 PM OVERHEAD CLEANER MAINTAINER 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 documented in this encounter Plan of Treatment Upcoming Encounters Date Type Department Care Team (Late st Contact Info) Description 11/16/2024 1:00 PM CDT Allied Health/Nurse Visit [facility] 9[address] [facility] 4th [place] [phone] Lucero Britt PA-C 500 [place], [place] [address] 11/16/2024 2:45 PM CDT Office Visit [facility] [address] [facility] 4th [place] [phone] Vivien Blanchard MD [address] [facility] 394 [place], [place] [address] 11/20/2024 3:30 PM CDT Office Visit [facility] [address] [place] [phone] [place] [address] [place] [address] 11/22/2024 9:15 AM CDT Office Visit [facility] [address] [facility] [address] [place] [phone] Federico Linda MD [address] [facility] [address] [place], [place] [address] 11/30/2024 10:[address] [facility] [address] [place] [phone] 12/06/2024 10:10 AM CDT Office Visit [facility] 6525 [facility] 200 [place] [phone] Virgie Lobato PA-C [address] [place] [address] 12/28/2024 11:00 AM CDT Office Visit [facility] 2945 [facility] 200 [place] [phone] Barry Ybarra MD 2945 [facility] 200 [place] [address] 01/26/2025 11:30 AM CDT Office Visit [facility] [address] [place] [phone] [place] [address] [place] [address] documented as of this encounter Goals Goal Patient Goal Type Associated Problems Recent Progress Patient-Stated? Author Problem Solving General On track( 019 9:24 AM OVERHEAD CLEANER MAINTAINER) Yes Sheryl Stringer RD Note: My Goal: [...] Out COVID-19 07/16/2024 07/16/2024 07/16/2024 11:04 PM OVERHEAD CLEANER MAINTAINER Rule Out COVID-19 09/01/2024 09/01/2024 09/01/2024 2:05 AM CDT Rule Out COVID-19 09/21/2024 09/21/2024 09/21/2024 3:25 PM CDT Assessment Noted Time PHQ-9 Depression Total Score: 2 12/06/19 24 9:44 AM CDT documented as of this encounter Care Teams An/Sqq 89(V)15 Sonar System Journeyman Relationship Specialty Start Date End Date Trina Carbajal PA-C [address] [facility] [address] [place] [address] PCP - General Family Medicine 05/19/20 04/10/24 [place] [address] [place] [address] PCP - General Family Medicine 04/11/24 Sheryl Stringer, RD [address] [place] [place] [address] Forming Department Supervisor Dietitian, Registered 11/03/17 Federico Linda MD [address] [place] [address] Assigned Heart and Vascular Provider 03/29/20 Trina Carbajal, PA-C [address] [place] [address] Assigned PCP 12/20/20 04/28/24 Jc Zavala MD [place] OCOL[facility]Y H[facility]ATOLOGY [facility] 100 [place] [address] Hematology & Oncology 08/07/21 Cristofer Michelle MD 6 [facility] 1E [place], [place] [address] Gastroenterology 07/28/22 Vivien Blanchard MD [address] [facility] 394 [place], [place] [phone] Urology 07/28/22 Virgie Lobato, PA-C [address] [place] [address] Assigned Nephrology Provider 09/26/22 03/28/24 Teetee Velazquez PA-C 909 [place] [address] Physician Special Education Bus Driver 05/11/23 Teetee Velazquez PA-C 909 [place] [address] Assigned Surgical Provider 07/01/23 [place] [address] [address], [address] [address] Assigned Musculoskeletal Provider 08/20/23 Cristal Cooper RN Lead Creeler Primary Care - CC 04/27/2404/08 Shannon Rowland PA-C [address] [place] [address] Assigned PCP 04/29/24 05/28/24 Lanie Foster, RD, LD [address] [place] 046715 Registered Dietitian Nutrition 05/15/24 [place] [address] [place] [address] Assigned PCP 05/29/24 Melonie Caro RPH [address] [place] [address] Pharmacist Pharmacist 06/05/24 Federico Linda MD 6405 [facility] S [facility] [address] [place] [address] Cardiovascular Disease 06/13/24 Melonie Caro RPH [address] [place], [place] 39[address] Assigned MTM Pharmacist 06/29/24 Virgie Lobato PAAnthonyC [address] [place] [address] 954195 Assigned Nephrology Provider 07/30/24 Barry Ybarra MD [address] [place] [address] Hospitalist Infectious Diseases 08/31/24 Barry Ybarra MD [address] [place] [address] Assigned Infectious Disease Provider 10/27/24 documented as of this encounter
--- OUTSIDE RECORDS SUMMARY | 2024-11-12 17:32 | XMS_ITS | Encounter Summary ---
Author Organization [facility] Address [address] [place] [address] Care Team Providers Care Sales Project Manager Name Role Phone Sheryl Stringer Kirk BENITEZ Unavailable [phone] Federico Linda MD Unavailable [phone] Trina Carbajal-C Primary Care Provider [phone] Trina Carbajal-C Unavailable [phone] Jc Zavala MD Unavailable [phone] Cristofer Michelle MD Unavailable [phone] Vivien Blanchard MD Unavailable [phone] Virgie Lobato-C Unavailable [phone] Teetee Velazquez-C Unavailable [phone] Teetee Velazquez-C Unavailable [phone] Brad Mayer DO Unavailable [phone] Mary Garcia MD Primary Care Provider Cristal Cooper RN Unavailable Shannon Rowland PA-C Unavailable [phone], LD Unavailabl e Mary Garcia MD Unavailable Melonie Caro [facility] Unavailable [phone] Federico Linda MD Unavailable [phone] Melonie Caro [facility] Unavailable [phone] Virgie Lobato PA-C Unavailable [phone] Barry Ybarra MD Unavailable [phone] Barry Ybarra MD Unavailable [phone] Encounter Details Date Type Department Care Team (Late st Contact Info) Description 01/21/2024 [facility] [address] [place] [address] [address] [place] [address] Federico Linda MD 6247 [facility] [address] [place] [address] Social History Tobacco Use Types [...] in an overnight penitentiary, or couch-surfing.) Yes 05/11/2023 Are you worried [...] Sex Assigned at Female 07/18/2020 1:16 PM DEFLASH AND WASH OPERATOR Legal Sex Female 3:23 AM DEFLASH AND WASH OPERATOR Gender Identity Female 07/18/2020 1:16 PM DEFLASH AND WASH OPERATOR Sexual Orientation Straight 07/18/2020 1: 16 PM DEFLASH AND WASH OPERATOR 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 Not on file documented as of this encounter Plan of Treatment Upcoming Encounters Date Type Department Care Team (Late st Contact Info) Description 11/16/2024 1:00 PM CDT Allied Health/Nurse Visit [facility] [address]th [place] [address] Lucero Britt PA-C [address] [place] [phone] 11/16/2024 2:45 PM CDT Office Visit [facility] 909 [facility] 4th [place] [phone] Vivien Blanchard MD 420 [facility] 394 [place], [place] [address] 11/20/2024 3:30 PM CDT Office Visit [facility] [address] [place] [phone] [place] [address] [place], [place] [address] 11/22/2024 9:15 AM CDT Office Visit [facility] Heart [facility] [address] [facility] [address] [place] [phone] Federico Linda MD 6405 [facility] [address] [place] [address] 11/30/2024 10:30 AM CDT Lab [facility] Laboratory [address] [place] [phone] 12/06/2024 10:10 AM CDT Office Visit [facility] Specialty [facility] 6525 [facility] 200 [place] [phone] Virgie Lobato, PA-C 909 [place] [address] 12/28/2024 11:00 AM CDT Office Visit [facility] 2945 [facility] 200 [place] [phone] [place] [address] [place] [address] 200 [place] [address] 01/26/2025 11:30 AM CDT Office Visit [facility] [address] [place] [address] [place] [address] [place] [address] documented as of this encounter Goals Goal Patient Goal Type Associated Problems Recent Progress Patient-Stated? Author Problem Solving General On track( 019 9:24 AM DEFLASH AND WASH OPERATOR) Yes Sheryl Stringer RD Note: My [...] Out COVID-19 07/16/2024 07/16/2024 07/16/2024 11:04 PM DEFLASH AND WASH OPERATOR Rule Out COVID-19 09/01/2024 09/01/2024 09/01/2024 2:05 AM CDT Rule Out COVID-19 09/21/2024 09/21/2024 09/21/2024 3:25 PM CDT Assessment Noted Time PHQ-9 Depression Total Score: 2 12/06/19 24 9:44 AM CDT documented as of this encounter Care Teams Sales Project Manager Relationship Specialty Start Date End Date Trina Carbajal PA-C [address] [facility] [address] [place] [address] PCP - General Family Medicine 05/19/20 04/10/24 [place] [address] [place] [address] PCP - General Family Medicine 04/11/24 Sheryl Stringre, ELI [address] [place] [address] Coat Maker Dietitian, Registered 11/03/17 Federico Linda MD [address] [place] [address] Assigned Heart and Vascular Provider 03/29/20 Trina Carbajal PA-C [address] [place] 0[address]75 Assigned PCP 12/20/20 04/28/24 Jc Zavala MD [facility] [address] [place] [address] Hematology & Oncology 08/07/21 Cristofer Michelle MD 516 [facility] 1E [place] [address] Gastroenterology 07/28/22 Vivien Blanchard MD 420 [facility] 394 [place] [address] Urology 07/28/22 Virgie Lobato PA-C 909 [place] [address] Assigned Nephrology Provider 09/26/22 03/28/24 Teetee Velazquez PA-C 909 [place] [address] Physician Arc Furnace Operator 05/11/23 Teetee Velazquez PA-C 909 [place], [place] 963895 Assigned Surgical Provider 07/01/23 [place] [address] [address], [address] [place], [place] [address] Assigned Musculoskeletal Provider 08/20/23 Cristal Cooper, JERRY Lead Harpooner Primary Care - CC 04/27/2404/08 Shannon Rowland PA-C [address] [place] [address] Assigned PCP 04/29/24 05/28/24 Lanie Foster, RD, LD [address] [place] 195205 Registered Dietitian Nutrition 05/15/24 [place] [address] [place] [address] Assigned PCP 05/29/24 Melonie Caro [facility] [address] [place] [address] Pharmacist Pharmacist 06/05/24 Federico Linda MD [address] [facility] [address] [place] [address] Cardiovascular Disease 06/13/24 Melonie Caro [facility] [address] [place] [address] Assigned MTM Pharmacist 06/29/24 Virgie Lobato PA-C [address] [place] [address] Assigned Nephrology Provider 07/30/24 Barry Ybarra MD [address] [place] [address] Hospitalist Infectious Diseases 08/31/24 Barry Ybarra MD [address] [place] [address] Assigned Infectious Disease Provider 10/27/24 documented as of this encounter
--- OUTSIDE RECORDS SUMMARY | 2024-11-12 17:32 | XMS_ITS | Encounter Summary ---
Author Organization [facility] Address [address] [place] [address] Care Team Providers Care Manager Produce Name Role Phone Sheryl Stringer Kirk BENITEZ Unavailable [phone] Federico Linda MD Unavailable [phone] Trina Carbajal-C Primary Care Provider Carlos Livingston MD Unavailable Jelena vailable Trina CarbajalC Unavailable [phone] Jc Zavala MD Unavailable [phone] Barbi Manzo RN Unavailable Unavailable Erasto Root MD Unavailable Cristofer Michelle MD Unavailable [phone] Vivien Blanchard MD Unavailable [phone] Sapna Hernandez MD Unavailable Vivien Blanchard MD Unavailable [phone] Virgie Lobato-C Unavailable +[phone] Teetee Velazquez PA-C Unavailable [phone] Teetee Velazquez PA-C Unavailable Cora Shah RN Unavailable [place], Brad Unavailable [phone] Mary Garcia MD Primary Care Provider [phone] Cristal Cooper RN Unavailable Shannon Rowland PA-C Unavailable [phone], LD Unavailabl e Mary Garcia MD Unavailable Melonie Caro [facility] Unavailable Federico Linda MD Unavailable Melonie Caro [facility] Unavailable Virgie Lobato PA-C Unavailable [phone] Barry Ybarra MD Unavailable Barry Ybarra MD Unavailable Encounter Details Date Type Department Care Team (Late st Contact Info) Description 04/08/2022 [facility] [place] [address] [facility] [address] [place] [address] Teetee Velazquez PA-C 0 [place] [address] Social History Tobacco Use Types Packs/Day Years Used Date Smoking Tobacco: Never Smokeless Tobacco: Never Alcohol Use Standard Drinks/Week Comments No 0 (1 standard drink = 0.6 oz pur e alcohol) PHQ-2 Answer Date Recorded PHQ-2 Score 0 04/08/2022 Comments No Sex and Gender Information Value Date Recorded Sex Assigned at Female 07/18/2020 1:16 PM DESIGN ENGINEER Legal Sex Female 3:23 AM DESIGN ENGINEER Gender Identity Female 07/18/2020 1:16 PM DESIGN ENGINEER Sexual Orientation Straight 07/18/2020 1: 16 PM DESIGN ENGINEER 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 Not on file [...] CDT Allied Health/Nurse Visit [facility] [address] [phone] Lucero Britt PA-C 500 [place], [place] [address] 11/16/2024 2:45 PM CDT Office Visit [facility] [address] [phone] Vivien Blanchard MD 420 [facility] 394 [place], [place] [address] 11/20/2024 3:30 PM CDT Office Visit [address] [address] Mary Garcia MD [address] [place] [address] 11/22/2024 9:15 AM CDT Office Visit [facility] [address] [facility] [address] [place] [phone] Federico Linda MD 3399 [facility] [address] [place], [place] [address] 11/30/2024 10:30 AM CDT Lab [facility] [address] [place] [address] 12/06/2024 10:10 AM CDT Office Visit [facility] [address] [phone] Virgie Lobato PA-C [address] [place] [address] 12/28/2024 11:00 AM CDT Office [facility] [address] [phone] [place] [address] [place] [address] 01/26/2025 11:30 AM CDT Office Visit [facility] [address] [place] [address] [place] [address] [place] [address] documented as of this encounter Goals Goal Patient Goal Type Associated Problems Recent Progress Patient-Stated? Author Problem Solving General On track( 019 9:24 AM DESIGN ENGINEER) Yes Sheryl Stringer RD Note: My Goal: [...] Out COVID-19 06/14/2022 06/14/2022 06/14/2022 11:30 AM DESIGN ENGINEER Rule Out COVID-19 07/03/2022 07/03/2022 07/04/2022 12:27 AM DESIGN ENGINEER Rule Out COVID-19 04/01/2024 04/01/2024 04/01/2024 10:07 PM CDT ESBL 07/05/2024 08/24/2024 Rule Out COVID-19 07/16/2024 07/16/2024 07/16/2024 11:04 PM DESIGN ENGINEER Rule Out COVID-19 09/01/2024 09/01/2024 09/01/2024 2:05 AM CDT Rule Out COVID-19 09/21/2024 09/21/2024 09/21/2024 3:25 PM CDT Assessment Noted Time PHQ-9 Depression Total Score: 5 03/12/20 22 3:06 PM CDT documented as of this encounter Care Teams Manager Produce Relationship Specialty Start Date End Date Trina Carbajal PA-C [address] [place] [address] PCP - General Family Medicine 05/19/20 04/10/24 [place] [address] [place] [address] PCP - General Family Medicine 04/11/[address] [place] [address] Tube Worker Dietitian, Registered 11/03/17 Federico Linda MD [address] [place] [address] Assigned Heart and Vascular Provider 03/29/20 Carlos Livingston MD NO INFO AVAILABLE Assigned Endocrinology Provider 12/20/20 12/18/22 Trina Carbajal PA-C [address] [place] [address] Assigned PCP 12/20/20 04/28/24 Jc Zavala MD [place] [facility] [address] [place] [address] Hematology & Oncology 08/07/21 Barbi Manzo, JERRY Personal Advocate & Liaison (PAL) Family Medicine 12/24/21 07/08/23 [place] [address] [place] [address] Assigned Musculoskeletal Provider 04/04/22 08/19/23 Cristofer Michelle MD [address] [place] [address] 1E [place] [address] Gastroenterology 07/28/22 Vivien Blanchard MD 420 [facility] 394 [place], [place] [address] Urology 07/28/22 Sapna Hernandez MD 420 [facility] 394 [place] [address] Assigned Nephrology Provider 07/11/22 09/25/22 Vivien Blanchard MD 420 [facility] 394 [place], [place] [address] Assigned Surgical Provider 07/25/22 06/30/23 Virgie Lobato, PA-C 909 [place], [place] [address] Assigned Nephrology Provider 09/26/22 03/28/24 Teetee Velazquez PA-C 909 [place] [address] Physician Logistics Assistant 05/11/23 Teetee Velazquez PA-C 909 [place], [place] [address]275 Assigned Surgical Provider 07/01/23 Cora Shah, JERRY Personal Advocate & Liaison (PAL) Nurse 07/09/23 09/29/23 [place] [address] [facility] [address] [address]39547 Assigned Musculoskeletal Provider 08/20/23 Cristal Cooper RN Lead Salon Receptionist Primary Care - CC 04/27/2404/08 Shannon Rowland PA-C [address] [place] [address] Assigned PCP 04/29/24 05/28/24 Lanie Foster, RD, LD [address] [place] [address] Registered Dietitian Nutrition 05/15/24 [place] [address] [place] [address] Assigned PCP 05/29/24 Melonie Caro RPH [address] [place], [place] [address] Pharmacist Pharmacist 06/05/24 Federico Linda MD [address] [place], [place] [address] Cardiovascular Disease 06/13/24 Melonie Caro RPH [address] [place] [address] Assigned MTM Pharmacist 06/29/24 Virgie Lobato, PAAnthonyC [address] [place] [address] 665325 Assigned Nephrology Provider 07/30/24 Barry Ybarra MD [address] [place] [address] Hospitalist Infectious Diseases 08/31/24 Barry bYarra MD [address] [place] [address] Assigned Infectious Disease Provider 10/27/24 documented as of this encounter
--- OUTSIDE RECORDS SUMMARY | 2024-11-12 17:32 | XMS_ITS | Encounter Summary ---
Author Organization [place] Address [address] [place] [address] Care Team Providers Care Contact Person Name Role Phone Sheryl Stringer Kirk BENITEZ Unavailable [phone] Federico Linda MD Unavailable [phone] Trina Carbajal-C Primary Care Provider [phone] Trina Carbajal-C Unavailable +[phone] Jc Zavala MD Unavailable [phone] Cristofer Michelle MD Unavailable [phone] Vivien Blanchard MD Unavailable [phone] Virgie Lobato-C Unavailable +[phone] Teetee Velazquez-C Unavailable +[phone] Teetee Velazquez-C Unavailable [phone] Brad Mayer DO Unavailable Mary Garcia MD Primary Care Provider [phone] Cristal Cooper RN Unavailable Shannon Rowland PA-C Unavailable [phone], LD Unavailabl e Mary Garcia MD Unavailable Melonie Caro [facility] Unavailable [phone] Federico Linda MD Unavailable [phone] Melonie Caro [facility] Unavailable +[phone] Virgie Lobato PA-C Unavailable +[phone] Barry Ybarra MD Unavailable [phone] Barry Ybarra MD Unavailable [phone] Reason for Visit * Auth/Cert Specialty Diagnoses / Procedures Referred By Trinh le Referred To Contact EMERGENCY MEDICINE Diagnoses Acute on chronic congestive heart failure, unspecified heart failure type (H) Hypoxia [facility] Emergency Dept [address] [place] [address] Phone: tel:[phone] fax: Referral ID Status Reason Start Date Expiration Date Visits Re quested Visits Authorized [id number] 1 1 Encounter Details Date Type Department Care Team (Late st Contact Info) Description 11/30/2023 Hospital Encounter [facility] [address] [place] [address] Federico Linda MD [address] [facility] [address] [place] [id number] Social History Tobacco Use Types Packs/Day Years [...] re latives? Twice a week 10/21/2024 Attends Synagogue Services Not on file 10/21 Active Member of Clubs or Organizations Not on f ile 10/21/2024 Attends Club or Organization Meetings Not on dian e 10/21/2024 Marital Status Not on file 10/21/2024 PHQ-2 Answer Date Recorded PHQ-2 Score 0 10/26/[address] 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 [address] [place] [phone] [place] [address] [place] [address] 11/22/2024 9:15 AM CDT Office Visit [facility] Heart [address] 140 [place] [phone] Federico Linda MD 6405 [facility] [address] [place] [address] 11/30/2024 10:30 AM CDT Lab [facility] Laboratory [address] [place] [phone] 12/06/2024 10:10 AM CDT Office Visit [facility] 6525 [facility] 200 [place] [phone] Virgie Lobato PANilesh 909 [place] [address] 12/28/2024 11:00 AM CDT Office [facility] 2945 [facility] 200 [place] [phone] Barry Ybarra MD 2945 [facility] 200 [place] [address] 01/26/2025 11:30 AM CDT Office [facility] [address] [place] [address] [place] [address] [place] [address] documented as of this encounter Goals Goal Patient Goal Type Associated Problems Recent Progress Patient-Stated? Author Problem Solving General On track( 019 9:24 AM REAL ESTATE FINANCIAL ANALYST) Yes Sheryl Stringer RD Note: My [...] Out COVID-19 07/16/2024 07/16/2024 07/16/2024 11:04 PM REAL ESTATE FINANCIAL ANALYST Rule Out COVID-19 09/01/2024 09/01/2024 09/01/2024 2:05 AM CDT Rule Out COVID-19 09/21/2024 09/21/2024 09/21/2024 3:25 PM CDT Assessment Noted Time PHQ-9 Depression Total Score: 6 10/20/19 2:31 PM CDT documented as of this encounter Care Teams Contact Person Relationship Specialty Start Date End Date Trina Carbajal PA-C [address] [place] [address] PCP - General Family Medicine 05/19/20 04/10/24 [place] [address] [place] [address] PCP - General Family Medicine 04/11/[address] [place] [address] Net Lead Architect Dietitian, Registered 11/03/17 Federico Linda MD [address] [place] [address] Assigned Heart and Vascular Provider 03/29/20 Trina Carbajal PA-C [address] [place] [address] Assigned PCP 12/20/20 04/28/24 cJ Zavala MD [facility] [address] [place] [address] Hematology & Oncology 08/07/21 Cristofer Michelle MD 516 [facility] PMB 1E [place] [address] Gastroenterology 07/28/22 Vivien Blanchard MD 420 [facility] 394 [place], [place] 28[address] Urology 07/28/22 Virgie Lobato PA-C [address] [place] [address] 324305 Assigned Nephrology Provider 09/26/22 03/28/24 Teetee Velazquez PA-C [address] [place] [address] 957125 Physician Electric Switch Repairer 05/11/23 Teetee Velazquez PA-C [address] [place] [address] 243535 Assigned Surgical Provider 07/01/23 [place] [address] [address], [address] [address] Assigned Musculoskeletal Provider 08/20/23 Cristal Cooper, JERRY Lead Tobacco Stripper Hand Primary Care - CC 04/27/2404/08 Shannon Rowland PA-C [address] [place] [phone] Assigned PCP 04/29/24 05/28/24 Lanie Foster, RD, LD [address] [place] [address] Registered Dietitian Nutrition 05/15/24 [place] [address] [place] [address] Assigned PCP 05/29/24 Melonie Caro RP [address] [place] [address] Pharmacist Pharmacist 06/05/24 Federico Linda MD [address] [place] [address] Cardiovascular Disease 06/13/24 Melonie Caro [facility] [address] [place] [address] Assigned MTM Pharmacist 06/29/24 Virgie Lobato, GIUSEPPEC [address] [place] [address] 238015 Assigned Nephrology Provider 07/30/24 Barry Ybarra MD [address] [place] [address] Hospitalist Infectious Diseases 08/31/24 Barry Ybarra MD [address] [place] [address] Assigned Infectious Disease Provider 10/27/24 documented as of this encounter
--- OUTSIDE RECORDS SUMMARY | 2024-11-12 17:32 | XMS_ITS | Encounter Summary ---
Author Organization [facility] Address [address] [place] [address] Care Team Providers Care Post Graduate Intern Name Role Phone Sheryl Stringer Kirk BENITEZ Unavailable [phone] Federico Linda MD Unavailable [phone] Trina Carbajal-C Primary Care Provider [phone] Trina Carbajal-C Unavailable +[phone] Jc Zavala MD Unavailable [phone] Cristofer Michelle MD Unavailable [phone] Vivien Blanchard MD Unavailable [phone] Virgie Lobato-C Unavailable [phone] Teetee Velazquez-C Unavailable [phone] Teetee Velazquez-C Unavailable [phone] Brad Mayer DO Unavailable [phone] Mary Garcia MD Primary Care Provider Cristal Cooper RN Unavailable Shannon Rowland PA-C Unavailable [phone], LD Unavailabl e Mary Garcia MD Unavailable Melonie Caro [facility] Unavailable [phone] Federico Linda MD Unavailable [phone] Melonie Caro [facility] Unavailable [phone] Virgie Lobato PA-C Unavailable [phone] Barry Ybarra MD Unavailable [phone] Barry Ybarra MD Unavailable [phone] Encounter Details Date Type Department Care Team (Late st Contact Info) Description 03/02/2024 [facility] Advice [facility] Heart [facility] [address] [place] [address] [address] [place] [address] Federico Linda MD 1250 [facility] [address] [place] [address] Social History Tobacco Use Types [...] [facility], or couch-surfing.) Yes 01/31/2024 Are you worried [...] Sex Assigned at Female 07/18/2020 1:16 PM WAFFLE MACHINE OPERATOR Legal Sex Female 3:23 AM WAFFLE MACHINE OPERATOR Gender Identity Female 07/18/2020 1:16 PM WAFFLE MACHINE OPERATOR Sexual Orientation Straight 07/18/2020 1: 16 PM WAFFLE MACHINE OPERATOR 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 Not on file Not on file documented as of this encounter Plan of Treatment Upcoming Encounters Date Type Department Care Team (Late st Contact Info) Description 11/16/2024 1:00 PM CDT Allied Health/Nurse Visit [facility] U[facility] Clinic [address] [place] [address] Lucero Britt PA-C [address] [place] [address] [phone] 11/16/2024 2:45 PM CDT Office Visit [facility] Urology [facility] 909 [facility] 4th [place] [phone] Vivien Blanchard MD 420 [facility] 394 [place], [place] [address] 11/20/2024 3:30 PM CDT Office Visit [facility] [address] [place] [phone] [place] [address] [place], [place] [address] 11/22/2024 9:15 AM CDT Office Visit [facility] Heart [facility] [address] [facility] [address] [place] [phone] Federico Linda MD 6405 [facility] [address] [place] [address] 11/30/2024 10:30 AM CDT Lab [facility] Laboratory [address] [place] [phone] 12/06/2024 10:10 AM CDT Office Visit [facility] Specialty [facility] 6525 [facility] 200 [place] [phone] Virgie Lobato, PA-C 909 [place] [address] 12/28/2024 11:00 AM CDT Office Visit [facility] 2945 [facility] 200 [place] [phone] [place] [address] [place] [address] 200 [place] [address] 01/26/2025 11:30 AM CDT Office Visit [facility] [address] [place] [address] [place] [address] [place] [address] documented as of this encounter Goals Goal Patient Goal Type Associated Problems Recent Progress Patient-Stated? Author Problem Solving General On track( 019 9:24 AM WAFFLE MACHINE OPERATOR) Yes Sheryl Stringer RD Note: [...] Out COVID-19 07/16/2024 07/16/2024 07/16/2024 11:04 PM WAFFLE MACHINE OPERATOR Rule Out COVID-19 09/01/2024 09/01/2024 09/01/2024 2:05 AM CDT Rule Out COVID-19 09/21/2024 09/21/2024 09/21/2024 3:25 PM CDT Assessment Noted Time PHQ-9 Depression Total Score: 2 12/06/19 24 9:44 AM CDT documented as of this encounter Care Teams Post Graduate Intern Relationship Specialty Start Date End Date Trina Carbajal PA-C [address] [facility] [address] [place] [address] PCP - General Family Medicine 05/19/20 04/10/24 [place] [address] [place] [address] PCP - General Family Medicine 04/11/24 Sheryl Stringer, ELI [address] [place] [address] Government Affairs Specialist Dietitian, Registered 11/03/17 Federico Linda MD [address] [place] 9[address] Assigned Heart and Vascular Provider 03/29/20 Trina Carbajal PA-C [address] [place] [address] Assigned PCP 12/20/20 04/28/24 Jc Zavala MD [facility] [address] [place] [address] Hematology & Oncology 08/07/21 Cristofer Michelle MD 516 [facility] 1E [place] [address] Gastroenterology 07/28/22 Vivien Blanchard MD 420 [facility] 394 [place] [address] Urology 07/28/22 Virgie Lobato PA-C 909 [place] [address] Assigned Nephrology Provider 09/26/22 03/28/24 Teetee Velazquez PA-C 909 [place] [address] Physician Savings Counselor 05/11/23 Teetee Velazquez PA-C 909 [place], [place] 5799[address] Assigned Surgical Provider 07/01/23 [place] [address] [address], [address] [place], [place] [phone] Assigned Musculoskeletal Provider 08/20/23 Cristal Cooper, JERRY Lead Senior Label Specialist Primary Care - CC 04/27/2404/08 Shannon Rowland PA-C [address] [place] [address] Assigned PCP 04/29/24 05/28/24 Lanie Foster, RD, LD [address] [place] [address] Registered Dietitian Nutrition 05/15/24 [place] [address] [place] [address] Assigned PCP 05/29/24 Melonie Caro [facility] [address] [place] [address] Pharmacist Pharmacist 06/05/24 Federico Linda MD [address] [facility] [address] [place] [address] Cardiovascular Disease 06/13/24 Melonie Caro [facility] [address] [place] [address] Assigned MTM Pharmacist 06/29/24 Virgie Lobato PA-C [address] [place] [address] Assigned Nephrology Provider 07/30/24 Barry Ybarra MD [address] [place] [address] Hospitalist Infectious Diseases 08/31/24 Barry Ybarra MD [address] [place] [address] Assigned Infectious Disease Provider 10/27/24 documented as of this encounter
--- OUTSIDE RECORDS SUMMARY | 2024-11-12 17:32 | XMS_ITS | Encounter Summary ---
Author Organization [facility] Address [address] [place] [address] Care Team Providers Care Terrazzo Worker Apprentice Name Role Phone Sheryl Stringer Kirk BENITEZ Unavailable [phone] Federico Linda MD Unavailable [phone] Trina Carbajal-C Primary Care Provider [phone] Trina Carbajal-C Unavailable +[phone] Jc Zavala MD Unavailable [phone] Cristofer Michelle MD Unavailable [phone] Vivine Blanchard MD Unavailable [phone] Virgie Lobato-C Unavailable +[phone] Teetee Velazquez-C Unavailable [phone] Teetee Velazquez-C Unavailable [phone] Brad Mayer DO Unavailable [phone] Mary Garcia MD Primary Care Provider [phone] Cristal Cooper RN Unavailable Shannon Rowland PA-C Unavailable [phone], LD Unavailabl e Mary Garcia MD Unavailable Melonie Caro [facility] Unavailable [phone] Federico Linda MD Unavailable [phone] Melonie Caro [facility] Unavailable [phone] Virgie Lobato PA-C Unavailable +[phone] Barry Ybarra MD Unavailable [phone] Barry Ybarra MD Unavailable [phone] Encounter Details Date Type Department Care Team (Late st Contact Info) Description 12/16/2023 [facility] Medical Advice [facility] Heart [facility] [address] [place] [address] [address] [place] [address] Federico Linda MD 1433 [facility] [address] [place] [address] Social History Tobacco Use Types [...] in an abandoned building, in an overnight jail, or couch-surfing.) Yes 05/11/2023 Are you worried [...] Sex Assigned at Female 07/18/2020 1:16 PM METERS SUPERINTENDENT Legal Sex Female 3:23 AM METERS SUPERINTENDENT Gender Identity Female 07/18/2020 1:16 PM METERS SUPERINTENDENT Sexual Orientation Straight 07/18/2020 1: 16 PM METERS SUPERINTENDENT 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 Not on file Not on file documented as of this encounter Plan of Treatment Upcoming Encounters Date Type Department Care Team (Late st Contact Info) Description 11/16/2024 1:00 PM CDT Allied Health/Nurse Visit [facility] U[facility] Clinic [address] [place] [address] Lucero Britt PA-C [address] [place] [phone] 11/16/2024 2:45 PM CDT Office Visit [facility] Urology [facility] 909 [facility] 4th [place] [phone] Vivien Blanchard MD 420 [facility] 394 [place], [place] [address] 11/20/2024 3:30 PM CDT Office Visit [facility] [address] [place] [phone] [place] [address] [place], [place] [address] 11/22/2024 9:15 AM CDT Office Visit [facility] Heart [facility] 8[address]38 [facility] [address] [place] [phone] Federico Linda MD 6405 [facility] [address] [place] [address] 11/30/2024 10:30 AM CDT Lab [facility] Laboratory [address] [place] [phone] 12/06/2024 10:10 AM CDT Office Visit [facility] Specialty [facility] 6525 [facility] 200 [place] [address] Virgie Lobato, PA-C 909 [place] [address] 12/28/2024 11:00 AM CDT Office Visit [facility] 2945 [facility] 200 [place] [phone] [place] [address] [place] [address] 200 [place] [address] 01/26/2025 11:30 AM CDT Office Visit [facility] [address] [place] [address] [place] [address] [place] [address] documented as of this encounter Goals Goal Patient Goal Type Associated Problems Recent Progress Patient-Stated? Author Problem Solving General On track( 019 9:24 AM METERS SUPERINTENDENT) Yes Sheryl Stringer RD Note: My Goal: [...] Out COVID-19 07/16/2024 07/16/2024 07/16/2024 11:04 PM METERS SUPERINTENDENT Rule Out COVID-19 09/01/2024 09/01/2024 09/01/2024 2:05 AM CDT Rule Out COVID-19 09/21/2024 09/21/2024 09/21/2024 3:25 PM CDT Assessment Noted Time PHQ-9 Depression Total Score: 2 12/06/19 24 9:44 AM CDT documented as of this encounter Care Teams Terrazzo Worker Apprentice Relationship Specialty Start Date End Date Trina Carbajal PA-C [address] [facility] [address] [place] [address] PCP - General Family Medicine 05/19/20 04/10/24 [place] [address] [place] [address] PCP - General Family Medicine 04/11/24 Sheryl Stringer, ELI [address] [place] [address] Calender Worker Helper Dietitian, Registered 11/03/17 Federico Linda MD [address] [place] 042635 Assigned Heart and Vascular Provider 03/29/20 Trina Carbajal PA-C [address] [place] 558605 Assigned PCP 12/20/20 04/28/[address] [facility] [address] [place] [address] Hematology & Oncology 08/07/21 Cristofer Michelle MD 516 [facility]E [place] [address] Gastroenterology 07/28/22 Vivien Blanchard MD 420 [facility] 394 [place] [address] Urology 07/28/22 Virgie Lobato PA-C 909 [place] [address] Assigned Nephrology Provider 09/26/22 03/28/24 Teetee Velazquez PA-C 909 [place] [address] Physician Dross Skimmer 05/11/23 Teetee Velazquez PA-C 909 [place], [place] 229135 Assigned Surgical Provider 07/01/23 [place] [address] [address], [address] [place], [place] [address] Assigned Musculoskeletal Provider 08/20/23 Cristal Cooper, JERRY Lead Net Development Manager Primary Care - CC 04/27/2404/08 Shannon Rowland PA-C [address] [place] [address] Assigned PCP 04/29/24 05/28/24 Lanie Foster, RD, LD [address] [place] 9[address]25 Registered Dietitian Nutrition 05/15/24 [place] [address] [place] [address] Assigned PCP 05/29/24 Meolnie Caro [facility] [address] [place] [address] Pharmacist Pharmacist 06/05/24 Federico Linda MD [address] [facility] [address] [place] [address] Cardiovascular Disease 06/13/24 Melonie Caro [facility] [address] [place] [address] Assigned MTM Pharmacist 06/29/24 Virgie Lobato PA-C [address] [place] [address] Assigned Nephrology Provider 07/30/24 Barry Ybarra MD [address] [place] [address] Hospitalist Infectious Diseases 08/31/24 Barry Ybarra MD [address] [place] [address] Assigned Infectious Disease Provider 10/27/24 documented as of this encounter
--- OUTSIDE RECORDS SUMMARY | 2024-11-12 17:33 | XMS_ITS | Encounter Summary ---
Author Organization [place] Address [address] [place] [address] Care Team Providers Care Plastic Fabricator Name Role Phone Myke Sheryl Bradley RD Unavailable [phone] Flynn Ruiz MD Primary Care Provider Sheryl Jaimes MD Primary Care Provider Unavailab Flynn Morris MD Unavailable [phone] [facility] Primary Care Provider No Ref-Primary, Physician Primary Care Provider Flynn Ruiz MD Unavailable [phone] Ruth Ann Munoz MD Primary Care Prov ider Ruth Ann Munoz MD Unavailable + Flynn Ruiz MD Primary Care Provider Ruth Ann Munoz MD Unavailable + Flynn Ruiz MD Unavailable [phone] Flynn Ruiz MD Unavailable +[phone] Mari Funes RN Unavailable Unavailable Ruth Ann Munoz MD Unavailable + Trina Carbajal PA-C Unavailable +[phone] Federico Linda MD Unavailable [phone] Trina Carbajal PA-C Primary Care Provider Connie Blackwell MD Unavailable [phone] Ruth Ann Munoz MD Unavailable + Carlos Livingston MD Unavailable Jelena vailable Trina Carbajal PA-C Unavailable +[phone] Carlos Livingston MD Unavailable Jelena vailable Carlos Livingston MD Unavailable Jelena vailable Trina Carbajal PA-C Unavailable +[phone] Mari Funes RN Unavailable Unavailable Jc Zavala MD Unavailable +[phone] Barbi Manzo RN Unavailable Unavailable Erasto Root MD Unavailable Cristofer Michelle MD Unavailable [phone] Vivien Blanchard MD Unavailable +[phone] Sapna Hernandez MD Unavailable Vivien Blanchard MD Unavailable +[phone] Virgie Lobato PA-C Unavailable [phone] Teetee Velazquez PA-C Unavailable +[phone] Teetee Velazquez PA-C Unavailable + [phone] Cora Shah RN Unavailable +[phone] Brad Mayer DO Unavailable [phone] Mary Garcia MD Primary Care Provider [phone] Cristal Cooper RN Unavailable Shannon Rowland PA-C Unavailable +[phone], LD Unavailabl e Mary Garcia MD Unavailable Melonie Caro [facility] Unavailable +[phone] Federico Linda MD Unavailable +[phone] Melonie Caro [facility] Unavailable +[phone] Virgie Lobato PA-C Unavailable +[phone] Barry Ybarra MD Unavailable +[phone] Barry Ybarra MD Unavailable [phone] Reason for Visit * Reason Onset Date Comments Forms 12/14/2017 PHQ9 Encounter Details Date Type Department Care Team (Late st Contact Info) Description 12/14/2017 MyC Medical Advice [address] [address] Virgie Jordan, RN Forms (PHQ9) Social History Tobacco Use Types Packs/Day Years Used Date Smoking Tobacco: Never Smokeless Tobacco: Never Alcohol Use Standard Drinks/Week Comments No 0 (1 standard drink = 0.6 oz pur e alcohol) Comments No Sex and Gender Information Value Date Recorded Sex Assigned at Female 07/18/2020 1:16 PM LINING VAMPER Legal Sex Female 3:23 AM LINING VAMPER Gender Identity Female 07/18/2020 1:16 PM LINING VAMPER Sexual Orientation Straight 07/18/2020 1: 16 PM LINING VAMPER 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 Not on file Not on file documented as of this encounter Plan of Treatment Upcoming Encounters Date Type Department Care Team (Late st Contact Info) Description 11/16/2024 1:00 PM CDT Allied Health/Nurse Visit [facility] [address]th [place] [address] Lucero Brtit PA-C 500 [place] [address] 11/16/2024 2:45 PM CDT Office Visit [facility] [place] 909 [facility] 4th [place] [phone] Vivien Blanchard MD 420 [facility] 394 [place], [place] [address] 11/20/2024 3:30 PM CDT Office Visit [facility] [address] [place] [address] [place] [address] [place], [place] [phone] 11/22/2024 9:15 AM CDT Office Visit [facility] [address] [facility] [address] [place] [address] Federico Linda MD 6400 [facility] [address] [place], [place] [address] 11/30/2024 10:[address] [facility] [address] [place] [phone] 12/06/2024 10:10 AM CDT Office Visit [facility] 6525 [facility] 200 [place] [phone] Virgie Lobato PA-C 909 [place], [place] [address] 12/28/2024 11:00 AM CDT Office Visit [facility] 2945 [facility] 200 [place] [phone] Barry Ybarra MD [address] [place] [address] 200 [place] [address] 01/26/2025 11:30 AM CDT Office Visit [facility] [address] [place] [address] [place] [address] [place] [address] documented as of this encounter Visit Diagnoses Not on filedocumented in this encounter Additional Health Concerns Infection Onset Date Last Indicated Resolved Time Rule Out COVID-19 03/08/2021 03/08/2021 03/09/2021 1:42 AM CDT Rule Out C-difficile 03/10/2021 03/10/2021 5:50 PM CDT Rule Out COVID-19 2021 2021 04/25/2021 12:41 PM LINING VAMPER Rule Out COVID-19 06/14/2022 06/14/2022 06/14/2022 11:30 AM LINING VAMPER Rule Out COVID-19 07/03/2022 07/03/2022 07/04/2022 12:27 AM LINING VAMPER Rule Out COVID-19 04/01/2024 04/01/2024 04/01/2024 10:07 PM CDT ESBL 07/05/2024 08/24/2024 Rule Out COVID-19 07/16/2024 07/16/2024 07/16/2024 11:04 PM LINING VAMPER Rule Out COVID-19 09/01/2024 09/01/2024 09/01/2024 2:05 AM CDT Rule Out COVID-19 09/21/2024 09/21/2024 09/21/2024 3:25 PM CDT Assessment Noted Time PHQ-9 Depression Total Score: 4 12/17/19 18 7:01 AM CDT documented as of this encounter Care Teams Plastic Fabricator Relationship Specialty Start Date End Date Flynn Ruiz MD [facility] MICHELLE [address] [place] [address] [place] [phone] PCP - General Family Practice 12/08/17 07/07/18 Sheryl Jaimes MD [facility] [address] [facility] [place] [address] PCP - General Family Practice 07/08/18 08/02/18 Flynn Ruiz MD [address] [place] [address] PCP - Assigned PCP 07/10/18 08/09/18 [facility] [id number] [place] [phone] PCP - General 08/03/18 08/04/18 No Ref-Primary, Physician PCP - General 08/05/18 08/30/18 Ruth Ann Munoz MD PCP - General Family Practice 08/31/18 04/13/19 Flynn Ruiz MD [place] [address] [facility] [address] [place] [address] PCP - General Family Practice 04/14/19 05/18/20 Trina Carbajal, JAMES-C 6405 [facility] [address] [place] [address] PCP - General Family Medicine 05/19/20 04/10/24 [place] [address] [place] [address] PCP - General Family Medicine 04/11/[address] [place] [address] Lead Software Engineer Dietitian, Registered 11/03/17 Flynn Ruiz MD [address] [place] [address] Assigned PCP 04/24/18 12/24/18 Ruth Ann Munoz MD [place] [address] [place], [place] [address] Assigned PCP 12/25/18 04/22/19 Ruth Ann Munoz MD [place] [address] [place], [place] [id number] Assigned PCP 04/30/19 05/27/19 Flynn Ruiz MD [address] [place] [address] Assigned PCP 04/23/19 04/29/19 Flynn Ruiz MD [address] [place] [address] Assigned PCP 05/28/19 07/22/19 Mari Funes, JERRY Personal Advocate & Liaison (PAL) 07/27/19 07/30/19 Ruth Ann Munoz MD [place] [address] [place] [address]78 Assigned PCP 07/23/19 08/12/19 Trina Carbajal, PAAnthonyC [address] [place] [address] Assigned PCP 08/13/19 07/27/20 Federico Linda MD [address] [place] [address] Assigned Heart and Vascular Provider 03/29/20 Connie Blackwell MD [address] [place] [address] Assigned Endocrinology Provider 07/14/20 12/19/20 Ruth Ann Munoz MD [place] 7447 [facility] 207 [place] [address] Assigned PCP 07/28/20 08/25/20 Carlos Livingston MD NO INFO AVAILABLE Assigned PCP 08/26/20 08/31/20 Trina Carbajal PA-C [address] [place] [address] Assigned PCP 09/01/20 12/07/20 Carlos Livingston MD NO INFO AVAILABLE Assigned Endocrinology Provider 12/20/20 12/18/22 Carlos Livingston MD NO INFO AVAILABLE Assigned PCP 12/08/20 12/19/20 Trina Carbajal PA-C [address] [place] [address] Assigned PCP 12/20/20 04/28/24 Mari Funes, JERRY Personal Advocate & Liaison (PAL) Nurse 01/24/21 06/12/21 Jc Zavala MD [facility] [address] 100 [place] [address] Hematology & Oncology 08/07/21 Barbi Manzo, RN Personal Advocate & Liaison (PAL) Family Medicine 12/24/21 07/08/23 [place] [address] [address] [place] [address] Assigned Musculoskeletal Provider 04/04/22 08/19/23 Cristofer Michelle MD [address] [place] [address] [address] [place] [address] Gastroenterology 07/28/22 Vivien Blanchard MD 420 [facility] 394 [place], [place] [address] Urology 07/28/22 Sapna Hernandez MD 420 [facility] 394 [place] [address] Assigned Nephrology Provider 07/11/22 09/25/22 Vivien Blanchard MD 420 [facility] 394 [place], [place] 67[address] Assigned Surgical Provider 07/25/22 06/30/23 Virgie Lobato PA-C [address] [place] [address] [id number] Assigned Nephrology Provider 09/26/22 03/28/24 Teetee Velazquez PA-C 909 [place] [address] Physician Grain Commodity Manager 05/11/23 Teetee Velazquez PA-C 909 [place] [address] Assigned Surgical Provider 07/01/23 Cora Shah, JERRY Personal Advocate & Liaison (PAL) Nurse 07/09/23 09/29/23 [place] [address] [address] 926877 Assigned Musculoskeletal Provider 08/20/23 Cristal Cooper RN Lead Shipping/Receiving Clerk Primary Care - CC 04/27/2404/08 Shannon Rowland PA-C [address] [facility] [place] [address] Assigned PCP 04/29/24 05/28/24 Lanie Foster, RD, LD [address] [place] [address] Registered Dietitian Nutrition 05/15/24 [place] [address] [place] [address] Assigned PCP 05/29/24 Melonie Caro RPH [address] [place], [place] [address] Pharmacist Pharmacist 06/05/24 Federico Linda MD [address] [place] [address] Cardiovascular Disease 06/13/24 Melonie Caro RPH [address] [place] [address] Assigned MTM Pharmacist 06/29/24 Virgie Lobato, PAAnthonyC [address] [place] [address] 083385 Assigned Nephrology Provider 07/30/24 Barry Ybarra MD [address] [place] [address] Hospitalist Infectious Diseases 08/31/24 Barry Ybarra MD [address] [place] [address] Assigned Infectious Disease Provider 10/27/24 documented as of this encounter
--- OUTSIDE RECORDS SUMMARY | 2024-11-12 17:33 | XMS_ITS | Encounter Summary ---
Author Organization [place] Address [address] [place] [address] Care Team Providers Care Taper/Finisher Name Role Phone Flynn Ruiz MD Primary Care Provider [phone] No Ref-Primary, Physician Primary Care Provider Sheryl Stringer RD Unavailable [phone] Flynn Ruiz MD Primary Care Provider [phone] Sheryl Jaimes MD Primary Care Provider Unavailab Flynn Morris MD Unavailable [phone] [facility] Primary Care Provider No Ref-Primary, Physician Primary Care Provider Flynn Ruiz MD Unavailable [phone] Ruth Ann Munoz MD Primary Care Prov ider Ruth Ann Munoz MD Unavailable + Flynn Ruiz MD Primary Care Provider [phone] ShinglehouseRuth Ann Kellogg MD Unavailable + Flynn Ruiz MD Unavailable [phone] Flynn Ruiz MD Unavailable +[phone] Mari Funes RN Unavailable Unavailable EmmaRuth Ann Holder MD Unavailable + Trina Carbajal-C Unavailable +[phone] Federico Linda MD Unavailable [phone] Trina Carbajal PA-C Primary Care Provider [phone] Connie Blackwell MD Unavailable [phone] [facility] Holder MD Unavailable + Carlos Livingston MD Unavailable Jelena vailable Trina Carbajal PA-C Unavailable [phone] Carlos Livingston MD Unavailable Jelena vailable Carlos Livingston MD Unavailable Jelena vailable Trina Carbajal PA-C Unavailable [phone] Mari Funes RN Unavailable Unavailable Jc Zavala MD Unavailable [phone] Barbi Manzo RN Unavailable Unavailable Erasto Root MD Unavailable Cristofer Michelle MD Unavailable +[phone] Vivien Blanchard MD Unavailable + [phone] Sapna Hernandez MD Unavailable Vivien Blanchard MD Unavailable + [phone] Virgie Lobato PA-C Unavailable [phone] Teetee Velazquez PA-C Unavailable + [phone] Teetee Velazquez PA-C Unavailable + [phone] Cora Shah RN Unavailable [phone] Brad Mayer Unavailable [phone] Mary Garcia MD Primary Care Provider Cristal Cooper RN Unavailable Kashif Shannonrosa Bryan PA-C Unavailable [phone], LD Unavailabl e Mary Garcia MD Unavailable Vania Melonie [facility] Unavailable [phone] Federico Linda MD Unavailable [phone] Liborio aCrotlin [facility] Unavailable Virgie Lobato PA-C Unavailable Barry Ybarra MD Unavailable [phone] Barry Ybarra MD Unavailable +[phone] Encounter Details Date Type Department Care Team (Late st Contact Info) Description 09/16/2017 MyC Medical Advice [facility] [address] [place] [address] [place] [address] Flynn Ruiz MD [address] [place], [place] [phone] Social History Tobacco Use Types Packs/Day Years Used Date Smoking Tobacco: Never Smokeless Tobacco: Never Alcohol Use Standard Drinks/Week Comments No 0 (1 standard drink = 0.6 oz pur e alcohol) Comments No Sex and Gender Information Value Date Recorded Sex Assigned at Female 07/18/2020 1:16 PM LITERACY SPECIALIST Legal Sex Female 3:23 AM LITERACY SPECIALIST Gender Identity Female 07/18/2020 1:16 PM LITERACY SPECIALIST Sexual Orientation Straight 07/18/2020 1: 16 PM LITERACY SPECIALIST 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 file Not on file documented as of this encounter Plan of Treatment Upcoming Encounters Date Type Department Care Team (Late st Contact Info) Description 11/16/2024 1:00 PM CDT Allied Health/Nurse Visit [facility] 909 [facility] 4th [place] [address] Lucero Britt PA-C 500 [place], [place] 525915 11/16/2024 2:45 PM CDT Office Visit [facility] 909 [facility] 4th [place] [phone] Vivien Blanchard MD 420 [facility] 394 [place], [place] [address] 11/20/2024 3:30 PM CDT Office Visit [facility] [address] [place] [phone] [place] [address] [place] [address] 11/22/2024 9:15 AM CDT Office Visit [facility] [address] [facility] [address] [place] [address] Federico Linda MD 6407 [facility] [address] [place], [place] [address] 11/30/2024 10:30 AM CDT Lab [facility] [address] [place] [address] 12/06/2024 10:10 AM CDT Office Visit [facility] [place] 6525 [facility] 200 [place] [address] Virgie Lobato PA-C 909 [place], [place] [address] 12/28/2024 11:00 AM CDT Office Visit [facility] 2945 [facility] 200 [place] [address] Barry Ybarra MD [facility] [address] [address] 01/26/2025 11:30 AM CDT Office Visit [facility] [address] [place] [address] [place] [phone] [place] [address] 5542344 documented as of this encounter Visit Diagnoses Not on filedocumented in this encounter Additional Health Concerns Infection Onset Date Last Indicated Resolved Time Rule Out COVID-19 03/08/2021 03/08/2021 03/09/2021 1:42 AM CDT Rule Out C-difficile 03/10/2021 03/10/2021 5:50 PM CDT Rule Out COVID-19 2021 2021 04/25/2021 12:41 PM LITERACY SPECIALIST Rule Out COVID-19 06/14/2022 06/14/2022 06/14/2022 11:30 AM LITERACY SPECIALIST Rule Out COVID-19 07/03/2022 07/03/2022 07/04/2022 12:27 AM LITERACY SPECIALIST Rule Out COVID-19 04/01/2024 04/01/2024 04/01/2024 10:07 PM CDT ESBL 07/05/2024 08/24/2024 Rule Out COVID-19 07/16/2024 07/16/2024 07/16/2024 11:04 PM LITERACY SPECIALIST Rule Out COVID-19 09/01/2024 09/01/2024 09/01/2024 2:05 AM CDT Rule Out COVID-19 09/21/2024 09/21/2024 09/21/2024 3:25 PM CDT Assessment Noted Time PHQ-9 Depression Total Score: 3 09/18/19 18 7:37 AM CDT documented as of this encounter Care Teams Taper/Finisher Relationship Specialty Start Date End Date Flynn Ruiz MD PCP - General Family Practice 03/15/17 11/02/17 No Ref-Primary, Physician PCP - General 11/03/17 12/07/17 Flynn Ruiz MD PCP - General Family Practice 12/08/17 07/07/18 Sheryl Jaimes MD [address] [place] [address] PCP - General Family Practice 07/08/18 08/02/18 Flynn Ruiz MD [address] [place] [address] PCP - Assigned PCP 07/10/18 08/09/18 [facility] [address] [place], [place] [phone] PCP - General 08/03/18 08/04/18 No Ref-Primary, Physician PCP - General 08/05/18 08/30/18 [place] [address] [place] [address] PCP - General Family Practice 08/31/18 04/13/19 Flynn Ruiz MD [facility] [address] [place] [address] [address] PCP - General Family Practice 04/14/19 05/18/20 Trina Carbajal, PAAnthonyC [address] [place] [address] PCP - General Family Medicine 05/19/20 04/10/24 [place] [address] [address] [address] PCP - General Family Medicine 04/11/[address] [place] [address] Insurance Account Specialist Dietitian, Registered 11/03/17 Flynn Ruiz MD [address] [place] [address] Assigned PCP 04/24/18 12/24/18 Ruth Ann Munoz MD [place] [address] [address] [place] [address] Assigned PCP 12/25/18 04/22/19 Ruth Ann Munoz MD AR[place] [address] [place] [address] Assigned PCP 04/30/19 05/27/19 Flynn Ruiz MD [address] [place] [address] Assigned PCP 04/23/19 04/29/19 Flynn Ruiz MD [address] [place] [address] Assigned PCP 05/28/19 07/22/19 Mari Funes, JERRY Personal Advocate & Liaison (PAL) 07/27/19 07/30/19 Ruth Ann Munoz MD [place] [address] [place] [address] Assigned PCP 07/23/19 08/12/19 Trina Carbajal PA-C [address] [place] [address] Assigned PCP 08/13/19 07/27/20 Federico Linda MD [address] [place] [address] Assigned Heart and Vascular Provider 03/29/20 Connie Blackwell MD [address] [place] [address] Assigned Endocrinology Provider 07/14/20 12/19/20 Ruth Ann Munoz MD [place] [address] [place] [address] Assigned PCP 07/28/20 08/25/20 Carlos Livingston MD NO INFO AVAILABLE Assigned PCP 08/26/20 08/31/20 Trina Carbajal PA-C [address] [place] [address] Assigned PCP 09/01/20 12/07/20 Carlos Livingston MD NO INFO AVAILABLE Assigned Endocrinology Provider 12/20/20 12/18/22 Carlos Livingston MD NO INFO AVAILABLE Assigned PCP 12/08/20 12/19/20 Trina Carbajal, PA-C 6405 [facility] [address] [place] [address] Assigned PCP 12/20/20 04/28/24 Mari Funes, JERRY Personal Advocate & Liaison (PAL) Nurse 01/24/21 06/12/21 Jc Zavala MD [place] [facility] [place] [address] [place] [address] Hematology & Oncology 08/07/21 Barbi Manzo RN Personal Advocate & Liaison (PAL) Family Medicine 12/24/21 07/08/23 [place] [address] [place] [address] Assigned Musculoskeletal Provider 04/04/22 08/19/23 Cristofer Michelle MD [address] [place] [address] 1E [place], [place] [phone] Gastroenterology 07/28/22 Vivien Blanchard MD 420 [facility] 394 [place], [place] 7[address] Urology 07/28/22 Sapna Hernandez MD 420 [facility] 394 [place], [place] 3204[address] Assigned Nephrology Provider 07/11/22 09/25/22 Vivien Blanchard MD [address] [place] [address] 394 [place], [place] 957445 Assigned Surgical Provider 07/25/22 06/30/23 Virgie Lobato PA-C [address] [place] [address] [phone] Assigned Nephrology Provider 09/26/22 03/28/24 Teetee Velazquez PA-C [address] [place] [address] Physician C D Area Supervisor 05/11/23 Teetee Velazquez PA-C [address] [place] [address] Assigned Surgical Provider 07/01/23 Cora Shah, JERRY Personal Advocate & Liaison (PAL) Nurse 07/09/23 09/29/23 [place] [address] [address]OSA, [address] [address] Assigned Musculoskeletal Provider 08/20/23 Cristal Cooper, RN Lead Cafeteria Director Primary Care - CC 04/27/2404/08 Shannon Rowland PA-C [address] [place] [address] Assigned PCP 04/29/24 05/28/24 Lanie Foster, RD, LD [address] [place] [address] Registered Dietitian Nutrition 05/15/24 [place] [address] [place] [address] Assigned PCP 05/29/24 Melonie Caro [facility] [address] [place] [place], [place] [address] Pharmacist Pharmacist 06/05/24 Federico Linda MD [address] [facility] [address] [place], [place] [address] Cardiovascular Disease 06/13/24 Melonie Caro [facility] [address] [place], [place] 495667 Assigned MTM Pharmacist 06/29/24 Virgie Lobato, PAAnthonyC [address] [place] [address] [phone] Assigned Nephrology Provider 07/30/24 Barry Ybarra MD [address] [place] [address] Hospitalist Infectious Diseases 08/31/24 Barry Ybarra MD [address] [place] [address] Assigned Infectious Disease Provider 10/27/24 documented as of this encounter
--- OUTSIDE RECORDS SUMMARY | 2024-11-12 17:33 | XMS_ITS | Encounter Summary ---
Author Organization [facility] Address [address] [place] [address] Care Team Providers Care Sane Rn Name Role Phone Myke Sheryl Bradley RD Unavailable [phone] Flynn Ruiz MD Primary Care Provider Sheryl Jaimes MD Primary Care Provider Unavailab Flynn Morris MD Unavailable [phone] [facility] Primary Care Provider No Ref-Primary, Physician Primary Care Provider Flynn Ruiz MD Unavailable [phone] Ruth Ann Munoz MD Primary Care Prov [...] Unavailable Unavailable Jc Zavala MD Unavailable [phone] Barbi Manzo RN Unavailable Unavailable Erasto Root MD Unavailable Cristofer Michelle MD Unavailable [phone] Vivien Blanchard MD Unavailable [phone] Sapna Hernandez MD Unavailable Vivien Blanchard MD Unavailable +[phone] Virgie Lobato PA-C Unavailable [phone] Teetee Velazquez PA-C Unavailable +[phone] Teetee Velazquez PA-C Unavailable + [phone] Cora Shah RN Unavailable [phone] Brad Mayer DO Unavailable [phone] Mary Garcia MD Primary Care Provider [phone] Cristal Cooper RN Unavailable Shannon Rowland PA-C Unavailable +[phone], LD Unavailabl e Mary Garcia MD Unavailable Melonie Caro [facility] Unavailable Federico Linda MD Unavailable [phone] Melonie Caro [facility] Unavailable Virgie Lobato PA-C Unavailable +[phone] Barry Ybarra MD Unavailable +[phone] Barry Ybarra MD Unavailable +[phone] Encounter Details Date Type Department Care Team (Late st Contact Info) Description 05/18/2018 [facility] Heart [facility] [id number] [place] [address] [address] [place] [address] Federico Linda MD [address] [facility] [address] [place] [address] Social History Tobacco Use Types Packs/Day Years Used Date Smoking Tobacco: Never Smokeless Tobacco: Never Alcohol Use Standard Drinks/Week Comments No 0 (1 standard drink = 0.6 oz pur e alcohol) Comments No Sex and Gender Information Value Date Recorded Sex Assigned at Female 07/18/2020 1:16 PM THREE KNIFE TRIMMER Legal Sex Female 3:23 AM THREE KNIFE TRIMMER Gender Identity Female 07/18/2020 1:16 PM THREE KNIFE TRIMMER Sexual Orientation Straight 07/18/2020 1: 16 PM THREE KNIFE TRIMMER 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 Linda regarding patient's shortness of breath. RN will send to Dr. Linda for review. About the same Emmanuel Neves, Do you notice that there is any improvement in the shortness of breath or about the same? Federico Cerda Last E KNIFE TRIMMER documented in this encounter Plan of Treatment Upcoming Encounters Date Type Department Care Team (Late st Contact Info) Description 11/16/2024 1:00 PM CDT Allied Health/Nurse Visit [facility] Urology [address] [phone] Lucero Britt PA-C 500 [place], [place] [phone] 11/16/2024 2:45 PM CDT Office Visit [facility] Urology [address] [address] Vivien Blanchard MD 420 [facility] 394 [place], [place] [phone] 11/20/2024 3:30 PM CDT Office Visit [facility] [address] [place] [phone] [place] [address] [place] [address] 11/22/2024 9:15 AM CDT Office Visit [facility] Heart [facility] [address] [facility] [address] [place] [phone] Federico Linda MD [address] [facility] [address] [place], [place] [address] 11/30/2024 10:30 AM CDT Lab [facility] [address] [place] [phone] 12/06/2024 10:10 AM CDT Office Visit [facility] 6525 [facility] 200 [place] [phone] Virgie Lobato PA-C [address] [place] [address] 12/28/2024 11:00 AM CDT [facility] 2945 [facility] 200 [place] [address] [place] [address] [place] [address] 200 [place] [address] 01/26/2025 11:30 AM CDT Office Visit [address] [phone] Mary Garcia MD [address] [place] [address] documented as of this encounter Visit Diagnoses Not on filedocumented in this encounter Additional Health Concerns Infection Onset Date Last Indicated Resolved Time Rule Out COVID-19 03/08/2021 03/08/2021 03/09/2021 1:42 AM CDT Rule Out C-difficile 03/10/2021 03/10/2021 5:50 PM CDT Rule Out COVID-19 2021 2021 04/25/2021 12:41 PM THREE KNIFE TRIMMER Rule Out COVID-19 06/14/2022 06/14/2022 06/14/2022 11:30 AM THREE KNIFE TRIMMER Rule Out COVID-19 07/03/2022 07/03/2022 07/04/2022 12:27 AM THREE KNIFE TRIMMER Rule Out COVID-19 04/01/2024 04/01/2024 04/01/2024 10:07 PM CDT ESBL 07/05/2024 08/24/2024 Rule Out COVID-19 07/16/2024 07/16/2024 07/16/2024 11:04 PM THREE KNIFE TRIMMER Rule Out COVID-19 09/01/2024 09/01/2024 09/01/2024 2:05 AM CDT Rule Out COVID-19 09/21/2024 09/21/2024 09/21/2024 3:25 PM CDT Assessment Noted Time PHQ-9 Depression Total Score: 4 01/22/20 18 7:23 AM CDT documented as of this encounter Care Teams Sane Rn Relationship Specialty Start Date End Date Flynn Ruiz MD [facility] [address] [place] [address] PCP - General Family Practice 12/08/17 07/07/18 Sheryl Jaimes MD [place] [address] [place] [address] PCP - General Family Practice 07/08/18 08/02/18 Flynn Ruiz MD [address] [facility] [place] [address] PCP - Assigned PCP 07/10/18 08/09/[address] [address] PCP - General 08/03/18 08/04/18 No Ref-Primary, Physician PCP - General 08/05/18 08/30/18 Ruth Ann Munoz MD PCP - General Family Practice 08/31/18 04/13/19 Flynn Ruiz MD [facility] [address] [place] [address] [place] [address] PCP - General Family Practice 04/14/19 05/18/20 Trina Carbajal PA-C [address] [facility] [address] [place], [place] [address] PCP - General Family Medicine 05/19/20 04/10/24 [place] [address] [address] [place] [address] PCP - General [facility] Medicine 04/11/[address] [place] [id number] Assembler Dietitian, Registered 11/03/17 Flynn Ruiz MD [address] [place] [address] Assigned PCP 04/24/18 12/24/18 Ruth Ann Munoz MD [place] [address] [employer] [address] [place] [address] Assigned PCP 12/25/18 04/22/19 Ruth Ann Munoz MD [place] [address] [employer] [address] [place] [address] Assigned PCP 04/30/19 05/27/19 Flynn Ruiz MD [address] [place] [address] Assigned PCP 04/23/19 04/29/19 Flynn Ruiz MD [address] [place] [address] Assigned PCP 05/28/19 07/22/19 Mari Funes, JERRY Personal Advocate & Liaison (PAL) 07/27/19 07/30/19 Ruth Ann Munoz MD [place] [address] [place] [address] Assigned PCP 07/23/19 08/12/19 Trina Carbajal PA-C [address] [place], [place] [address] Assigned PCP 08/13/19 07/27/20 Federico Linda MD [address] [place], [place] [address] Assigned Heart and Vascular Provider 03/29/20 Connie Blackwell MD [address] [place], [place] [address] Assigned Endocrinology Provider 07/14/20 12/19/20 Ruth Ann Munoz MD [place] [address] [place] [address] Assigned PCP 07/28/20 08/25/20 Carlos Livingston MD NO INFO AVAILABLE Assigned PCP 08/26/20 08/31/20 Trina Carbajal PA-C [address] [place] [address] Assigned PCP 09/01/20 12/07/20 Carlos Livingston MD NO INFO AVAILABLE Assigned Endocrinology Provider 12/20/20 12/18/22 Carlos Livingston MD NO INFO AVAILABLE Assigned PCP 12/08/20 12/19/20 Trina Carbajal PA-C 6[address] [facility] [address] [place], [place] [address] Assigned PCP 12/20/20 04/28/24 Mari Funes, JERRY Personal Advocate & Liaison (PAL) Nurse 01/24/21 06/12/21 Jc Zavala MD [facility] [address] [facility] 100 [place] [address] Hematology & Oncology 08/07/21 Barbi Manzo, JERRY Personal Advocate & Liaison (PAL) Family Medicine 12/24/21 07/08/23 [place] [address] [place], [place] [address] Assigned Musculoskeletal Provider 04/04/22 08/19/23 Cristofer Michelle MD [address] [place] [address] [address] [place], [place] [address] Gastroenterology 07/28/22 Vivien Blanchard MD 420 [facility] 394 [place], [place] 573485 Urology 07/28/22 Sapna Hernandez MD [address] [facility] 394 [place], [place] 694225 Assigned Nephrology Provider 07/11/22 09/25/22 Vivien Blanchard MD [address] [place] [address] 1964[address] Assigned Surgical Provider 07/25/22 06/30/23 Virgie Lobato PA-C [address] [place] [address]645 Assigned Nephrology Provider 09/26/22 03/28/24 Teetee Velazquez PA-C [address] [place] [address] Physician Geomatics Professor 05/11/23 Teetee Velazquez PA-C [address] [place] [address] Assigned Surgical Provider 07/01/23 Cora Shah, JERRY Personal Advocate & Liaison (PAL) Nurse 07/09/23 09/29/23 [place] [address] [address] [address] Assigned Musculoskeletal Provider 08/20/23 Cristal Cooper, RN Lead Pharmacognosy Teacher Primary Care - CC 04/27/2404/08 Shannon Rowland PA-C [address] [place] [address] Assigned PCP 04/29/24 05/28/24 Lanie Foster, RD, LD [address] [place] [address] Registered Dietitian Nutrition 05/15/24 [place] [address] [place] [address] Assigned PCP 05/29/24 Melonie Caro [facility] [address] [place] [address] Pharmacist Pharmacist 06/05/24 Federico Linda MD [address] [place] [place] [address] Cardiovascular Disease 06/13/24 Melonie Caro [facility] [address] [place] [address] Assigned MTM Pharmacist 06/29/24 Virgie Lobato, PA-C [address] [place] [address] Assigned Nephrology Provider 07/30/24 Barry Ybarra MD [address] [place] [address] Hospitalist Infectious Diseases 08/31/24 Barry Ybarra MD [address] [place] [address] Assigned Infectious Disease Provider 10/27/24 documented as of this encounter
--- OUTSIDE RECORDS SUMMARY | 2024-11-12 17:33 | XMS_ITS | Encounter Summary ---
Author Organization [facility] Address [address] [place] [address] Care Team Providers Care Package Designer Name Role Phone No Ref-Primary, Physician Primary Care Provider Sheryl Stringer RD Unavailable [phone] Flynn Ruiz MD Primary Care Provider [phone] Sheryl Jaimes MD Primary Care Provider Unavailab Flynn Morris MD Unavailable [phone] [facility] Primary Care Provider No Ref-Primary, Physician Primary Care Provider Flynn Ruiz MD Unavailable [phone] Ruth Ann Munoz MD Primary Care Prov ider Ruth Ann Munoz MD Unavailable + Flynn Ruiz MD Primary Care Provider [phone] RaywickRuth Ann Hewitt MD Unavailable + Flynn Ruiz MD Unavailable [phone] Flynn Ruiz MD Unavailable [phone] Mari Funes RN Unavailable Unavailable Ruth Ann Munoz MD Unavailable + Trina Carbajal-C Unavailable +[phone] Federico Linda MD Unavailable [phone] Trina Carbajal PA-C Primary Care Provider [phone] Connie Blackwell MD Unavailable +[phone] Ruth Ann Munoz MD Unavailable + Carlos Livingston MD Unavailable Jelena vailable Trina Carbajal PA-C Unavailable [phone] Carlos Livingston MD Unavailable Jelena vailable Carlos Livingston MD Unavailable Jelena vailable Trina Carbajal PA-C Unavailable [phone] Mari Funes RN Unavailable Unavailable Jc Zavala MD Unavailable [phone] Barbi Manzo RN Unavailable Unavailable Erasto Root MD Unavailable Crisotfer Michelle MD Unavailable [phone] Vivien Blanchard MD Unavailable +[phone] Sapna Hernandez MD Unavailable Vivien Blanchard MD Unavailable +[phone] Virgie Lobato PA-C Unavailable [phone] Teetee Velazquez PA-C Unavailable +[phone] Teetee Velazquez PA-C Unavailable +[phone] Cora Shah RN Unavailable +[phone] Brad Mayer DO Unavailable [phone] Mary Garcia MD Primary Care Provider Cristal Cooper RN Unavailable Shannon Rowland PA-C Unavailable [phone], LD Unavailabl e Mary Garcia MD Unavailable Melonie Caro [facility] Unavailable [phone] Federico Linda MD Unavailable [phone] Liborio Carotlin [facility] Unavailable +[phone] Virgie Lobato PA-C Unavailable +[phone] Barry Ybarra MD Unavailable [phone] Barry Ybarra MD Unavailable [phone] Encounter Details Date Type Department Care Team (Late st Contact Info) Description 11/17/2017 [facility] Medical Advice [facility] 5725 [place] [address] Flynn Ruiz MD [address] [facility] [place] [address] Social History Tobacco Use Types Packs/Day Years Used Date Smoking Tobacco: Never Smokeless Tobacco: Never Alcohol Use Standard Drinks/Week Comments No 0 (1 standard drink = 0.6 oz pur e alcohol) Comments No Sex and Gender Information Value Date Recorded Sex Assigned at Female 07/18/2020 1:16 PM CORN PRESS OPERATOR Legal Sex Female 3:23 AM CORN PRESS OPERATOR Gender Identity Female 07/18/2020 1:16 PM CORN PRESS OPERATOR Sexual Orientation Straight 07/18/2020 1: 16 PM CORN PRESS OPERATOR 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 Not on file Not on file documented as of this encounter Plan of Treatment Upcoming Encounters Date Type Department Care Team (Late st Contact Info) Description 11/16/2024 1:00 PM CDT Allied Health/Nurse Visit [facility] Urology [facility] 9[address] [facility] 4th [place] [phone] Lucero Britt PA-C 500 [place], [place] 508185 11/16/2024 2:45 PM CDT Office Visit [facility] Urology [facility] [address] [facility] 4th [place] [address] Vivien Blanchard MD 420 [facility] 394 [place], [place] [address] 11/20/2024 3:30 PM CDT Office Visit [facility] [address] [place] [phone] [place] [address] [place] [address] 38[address] 11/22/2024 9:15 AM CDT Office Visit [facility] Heart [facility] [address] [facility] [address] [place] [phone] Federico Linda MD 6[address] [facility] [address] [place], [place] [address] 11/30/2024 10:[address] [facility] Laboratory [address] [place] [phone] 12/06/2024 10:10 AM CDT Office Visit [facility] Specialty [facility] 6525 [facility] 200 [place] [address] Virgie Lobato PA-C 909 [place] [address] 12/28/2024 11:00 AM CDT Office [facility] 2945 [facility] 200 [place] [address] Barry Ybarra MD 2945 [facility] 200 [place] [address] 01/26/2025 11:30 AM CDT Office Visit [facility] [address] [place] [phone] [place] [address] [place], [place] 33405[address] documented as of this encounter Visit Diagnoses Not on filedocumented in this encounter Additional Health Concerns Infection Onset Date Last Indicated Resolved Time Rule Out COVID-19 03/08/2021 03/08/2021 03/09/2021 1:42 AM CDT Rule Out C-difficile 03/10/2021 03/10/2021 5:50 PM CDT Rule Out COVID-19 2021 2021 04/25/2021 12:41 PM CORN PRESS OPERATOR Rule Out COVID-19 06/14/2022 06/14/2022 06/14/2022 11:30 AM CORN PRESS OPERATOR Rule Out COVID-19 07/03/2022 07/03/2022 07/04/2022 12:27 AM CORN PRESS OPERATOR Rule Out COVID-19 04/01/2024 04/01/2024 04/01/2024 10:07 PM CDT ESBL 07/05/2024 08/24/2024 Rule Out COVID-19 07/16/2024 07/16/2024 07/16/2024 11:04 PM CORN PRESS OPERATOR Rule Out COVID-19 09/01/2024 09/01/2024 09/01/2024 2:05 AM CDT Rule Out COVID-19 09/21/2024 09/21/2024 09/21/2024 3:25 PM CDT Assessment Noted Time PHQ-9 Depression Total Score: 3 09/18/19 18 7:37 AM CDT documented as of this encounter Care Teams Package Designer Relationship Specialty Start Date End Date No Ref-Primary, Physician PCP - General 11/03/17 12/07/17 Flynn Ruiz MD [facility] [address] [facility] [place] [address] PCP - General Family Practice 12/08/17 07/07/18 Sheryl Jaimes MD [address] [place] [address] PCP - General Family Practice 07/08/18 08/02/18 Flynn Ruiz MD [address] [facility] [place] [address] PCP - Assigned PCP 07/10/18 08/09/18 [facility] [address] [place], [place] [phone] PCP - General 08/03/18 08/04/18 No Ref-Primary, Physician PCP - General 08/05/18 08/30/18 [place] [address] [place] [address] PCP - General Family Practice 08/31/18 04/13/19 Flynn Ruiz MD [place] [address] [facility] [address] [place] [address] PCP - General Family Practice 04/14/19 05/18/20 Trina Carbajal, GIUSEPPEC 6405 [facility] [address] [place] [address] PCP - General Family Medicine 05/19/20 04/10/24 [place] [address] [address] [place] [address] PCP - General Family Medicine 04/11/[address] [place] [address] Novelty Twister Operator Dietitian, Registered 11/03/17 Flynn Ruiz MD [address] [place], [place] [address] Assigned PCP 04/24/18 12/24/18 Ruth Ann Munoz MD [place] [address] [employer] [address] [place] [address] Assigned PCP 12/25/18 04/22/19 Ruth Ann Munoz MD [place] [address] [employer] [address] [place] [address] Assigned PCP 04/30/19 05/27/19 Flynn Ruiz MD [address] [place] [address] Assigned PCP 04/23/19 04/29/19 Flynn Ruiz MD [address] [place] [address] Assigned PCP 05/28/19 07/22/19 Mari Funes, JERRY Personal Advocate & Liaison (PAL) 07/27/19 07/30/19 Ruth Ann Munoz MD [place] [address] [place] [address] Assigned PCP 07/23/19 08/12/19 Trina Carbajal PA-C [address] [place] [address] Assigned PCP 08/13/19 07/27/20 Federico Linda MD [address] [place] [address] Assigned Heart and Vascular Provider 03/29/20 Connie Blackwell MD [address] [place] [address] Assigned Endocrinology Provider 07/14/20 12/19/20 Ruth Ann Munoz MD [place] [address] [place] [address] Assigned PCP 07/28/20 08/25/20 Carlos Livingston MD NO INFO AVAILABLE Assigned PCP 08/26/20 08/31/20 Trina Carbajal PA-C [address] [place] [address] Assigned PCP 09/01/20 12/07/20 Carlos Livingston MD NO INFO AVAILABLE Assigned Endocrinology Provider 12/20/20 12/18/22 Carlos Livingston MD NO INFO AVAILABLE Assigned PCP 12/08/20 12/19/20 Trina Carbajal PA-C [address] [facility] [address] [place] [address] Assigned PCP 12/20/20 04/28/24 Mari Funes, RN Personal Advocate & Liaison (PAL) Nurse 01/24/21 06/12/21 Jc Zavala MD [facility] [address] [place] [address] Hematology & Oncology 08/07/21 Barbi Manzo, JERRY Personal Advocate & Liaison (PAL) Family Medicine 12/24/21 07/08/23 [place] [address] [place] [address] Assigned Musculoskeletal Provider 04/04/22 08/19/23 Cristofer Michelle MD [address] [place] [address] 1E [place], [place] [address] Gastroenterology 07/28/22 Vivien Blanchard MD [address] [place] [address] 394 [place], [place] 45[address] Urology 07/28/22 Sapna Hernandez MD [address] [place] [address] 394 [place], [place] [address]85 Assigned Nephrology Provider 07/11/22 09/25/22 Vivien Blanchard MD [address] [place] [address] 394 [place], [place] [address] Assigned Surgical Provider 07/25/22 06/30/23 Virgie Lobato PA-C [address] [place] [address] Assigned Nephrology Provider 09/26/22 03/28/24 Teetee Velazquez PA-C [address] [place] [address] 611545 Physician Manager Pmo 05/11/23 Teetee Velazquez PA-C [address] [place] [address] [id number] Assigned Surgical Provider 07/01/23 Cora Shah, JERRY Personal Advocate & Liaison (PAL) Nurse 07/09/23 09/29/23 [place] [address] RONALD ESPINOSA, [address] 646037 Assigned Musculoskeletal Provider 08/20/23 Cristal Cooper, JERRY Lead Shell Grader Primary Care - CC 04/27/2404/08 Shannon Rowland PA-C [address] [place] [address] Assigned PCP 04/29/24 05/28/24 Lanie Foster, RD, LD [address] [place] [address] Registered Dietitian Nutrition 05/15/24 [place] [address] [place] [address] Assigned PCP 05/29/24 Melonie Caro R[facility] [address] [place] [address] Pharmacist Pharmacist 06/05/24 Federico Linda MD [address] [facility] [address] [place] [address] Cardiovascular Disease 06/13/24 Melonie Caro [facility] [address] [place] [address] Assigned MTM Pharmacist 06/29/24 Virgie Lobato PA-C [address] [place] [address] Assigned Nephrology Provider 07/30/24 Barry Ybarra MD [address] [place] [address] Hospitalist Infectious Diseases 08/31/24 Barry Ybarra MD [address] [place] [address] Assigned Infectious Disease Provider 10/27/24 documented as of this encounter
--- OUTSIDE RECORDS SUMMARY | 2024-11-12 17:33 | XMS_ITS | Clinical Summary ---
Author Organization [facility] Address [address] [place] [address] Care Team Providers Care Technology Applications Engineer Name Role Phone Sheryl Stringer RD Unavailable [phone] Federico Linda MD Unavailable [phone] Jc Zavala MD Unavailable [phone] Cristofer Michelle MD Unavailable Vivien Blanchard MD Unavailable Teetee Velazquez-Javi Unavailable Teetee Velazquez-Javi Unavailable [phone] Brad Mayer DO Unavailable [phone] Mary Garcia MD Primary Care Provider Lanie Foster RD, LD Unavailabl e Mary Garcia MD Unavailable Melonie Caro [facility] Unavailable [phone] Federico Linda MD Unavailable [phone] VaniaMelonie duarte [facility] Unavailable Virgie Lobato PA-C Unavailable Barry Ybarra MD Unavailable [phone] Barry Ybarra MD Unavailable [phone] Allergies Active Allergy Reactions Criticality Noted Date Comments Lisinopril Angioedema,Swelling High 12/08/2017 Propranolol Rash,Unknown Low 03/25/2023 Medications MULTIVITAMINS OR TABS Take 1 tablet by mouth daily. Active Calcium-Magnesium -Vitamin D (CALCIUM 1200+D3 PO) Take 1 tablet by mouth daily Active Insulin Disposable Pump (OMNIPOD DASH 5 PACK PODS) MISCIndications:T ype 2 diabetes mellitus with stage 3 chronic kidney disease, with long-term current use of insulin (H) 1 pod every 48 hours 15 each 1 Active insulin lispro (HUMALOG VIAL) 100 UNIT/ML vialIndications:T ype 2 diabetes mellitus with complication, with long-term current use of insulin (H) Up to 100 units a day via pump 90 mL 1 1 Active atorvastatin (LIPITOR) 20 MG tablet Take 1 tablet by mouth daily. 3 Active INSULIN PUMP - OUTPATIENT Inject subcutaneousl y. LiveUipod SHOP.CA (updated 09/01/2024) Basal Rates and Times: 9489-5896: 1.5 units/hour 4691-8423: 1.8 units/hour Carb Ratio: 3644-4063 (all day): 1 unit/ 3.7g carbs Corection Factor (Sensitivity) : 5647-8807 (all day): 18 mg/dL Blood Glucose Target: 6480-4420 (all day): 120 mg/dL - goal range 70-180 mg/dL Active Insulin Time: 3 hours Active timolol maleate (TIMOPTIC) 0.5 % ophthalmic solution INSTILL 1 DROP 2 TIMES A DAY INTO BOTH EYES 4 Active estradiol (ESTRACE) 0.1 MG/GM vaginal creamIndications: Personal history of urinary tract infection Place 2 g vaginally three times a week. 40 g 4 4 Active furosemide (LASIX) 40 MG tabletIndications :teat twice daily x 3 days then once daily Take 1 tablet (40 mg) by mouth daily. 4 Active dicyclomine (BENTYL) 20 MG tabletIndications :Irritable Bowel Syndrome Take 20 mg by mouth 4 times daily as needed. Active lactobacillus rhamnosus, GG, (CULTURELL) capsule Take 1 capsule by mouth 2 times daily. Active vitamin D3 (CHOLECALCIFEROL) 50 mcg (2000 units) tablet Take 1 tablet by mouth daily. Active Cranberry 250 MG CAPS Take 1 capsule by mouth daily. Active aspirin 81 MG EC tablet Take 81 mg by mouth daily. Active omeprazole (PRILOSEC) [address] capsule Take 40 mg by mouth daily. Active latanoprost (XALATAN) 0.005 % ophthalmic solution Place 1 drop into both eyes daily. 5 Active nitroGLYcerin (NITROSTAT) 0.4 MG sublingual tabletIndications :Acute on chronic diastolic congestive heart failure (H) Place 1 tablet (0.4 mg) under the tongue every 5 minutes as needed for chest pain. For chest pain place 1 tablet under the tongue every 5 minutes for 3 doses. If symptoms persist 5 minutes after 1st dose call 911. 20 tablet 5 Active gabapentin (NEURONTIN) 300 MG capsuleIndication s:Neuropathy Take 1 capsule (300 mg) by mouth at bedtime. 5 Active LORazepam (ATIVAN) 0.5 MG tablet Take 1 tablet (0.5 mg) by mouth 2 times daily as needed for anxiety. 10 tablet 5 Active Glucagon (BAQSIMI) 3 MG/DOSE nasal powder [place] 1 spray in nostril. 5 Active citalopram (CELEXA) 20 MG tabletIndications :Moderate episode of recurrent major depressive disorder (H) TAKE 1 TABLET BY MOUTH EVERY DAY 90 tablet 1 5 Active amLODIPine (NORVASC) 10 MG tabletIndications :Benign essential hypertension TAKE 1 TABLET (10 MG) BY MOUTH DAILY. 90 tablet 1 5 Active traZODone (DESYREL) 50 MG tabletIndications :Sleep disturbance TAKE 1 TABLET BY MOUTH AT BEDTIME 90 tablet 5 Active insulin lispro (HUMALOG VIAL) 100 UNIT/ML vial USE WITH INSULIN PUMP UP TO 100 UNITS DAILY 5 Active hydrocortisone, Perianal, (HYDROCORTISONE) 2.5 % creamIndications: External hemorrhoids Place rectally 2 times daily as needed for hemorrhoids. 30 g 1 5 Active nitroFURantoin macrocrystal-mono hydrate (MACROBID) 100 MG capsule Take 1 capsule (100 mg) by mouth 2 times daily. 14 capsule 5 Active fosfomycin (MONUROL) 3 g PacketIndications :Dysuria Take 1 packet (3 g) by mouth once for 1 dose. 1 packet 5 10/27/19 25 ondansetron (ZOFRAN ODT) 4 MG ODT tab Take 1 tablet (4 mg) by mouth every 8 hours as needed for nausea or vomiting. 10 tablet 5 11/11/19 25 Active Problems Problem Noted Date Diagnosed Date Pneumonia of both lungs due to infectious organism, unspecified part of lung 09/01/2024 Acute congestive heart failu re, unspecified heart failure type 09/01/2024 CKD (chronic kidney disease) stage 4, GFR 15-29 ml/min 07/28/2024 Demand ischemia 07/17/2024 Acute on chronic diastolic congestive heart fail ure 07/17/2024 Pneumonia of right lung due to infectious organism, unspecified part of lung 07/17/2024 Hypervolemia, unspecified hypervolemia type 04/08 Dehydration 2024 Acute kidney injury 2024 Diuretics causing adverse ef fect in therapeutic use, initial encounter 2024 Nonrheumatic mitral valve stenosis 12/06/2023 Hypoxia 11/28/2023 Acute on chronic congestive heart failure, unspecified heart failure type 11/28/2023 Recurrent UTI 10/20/2023 Nausea 10/05/2022 10/05/2022 Intraductal papillary mucinous neoplasm 10/06/19 Overview (10/05/2022): Noted on imaging (ultasound endoscopy in September 2022) with [facility]. Benign in appearance at that time. Voiding dysfunction 07/22/2022 Personal history of urinary tract infection 07/08 Female stress incontinence 07/22/2022 Dilation of biliary tract 07/22/2022 Proliferative diabetic retin opathy associated with type 2 diabetes mellitus, unspecified laterality, unspecified proliferative retinopathy type 03/12/2022 Sepsis 03/09/2021 Acute cystitis without hematuria 03/09/2021 Lactic acidosis 03/09/2021 Vitamin B12 deficiency (non anemic) 01/24/2021 Iron deficiency anemia, unsp ecified iron deficiency anemia type 01/24/2021 Vitamin D deficiency 01/24/2021 Irritable bowel syndrome with diarrhea Invasive ductal carcinoma of breast, female, lef t 08/23/2020 Non-toxic multinodular goiter 11/25/2018 Gait instability 09/07/2018 Angioedema 12/08/2017 Moderate episode of recurrent major depressive d isorder 11/11/2016 CKD (chronic kidney disease) stage 3, GFR 30-59 ml/min 10/29/2016 Degenerative arthritis of hip 05/06/2015 CAD (coronary artery disease) 04/22/2012 Overview (06/27/2014): 04/18 Distal left main 10%, LAD had about a 20% lesion proximally,diagonal branch had a 50% stenosis at its origin and just after that had about a 90% lesion in the mid-LAD,small PDA with just 20% lesion proximally. SUZIE placed to mid LAD Presence of stent in LAD coronary artery 012 Type 2 diabetes mellitus wit h stage 3 chronic kidney disease, with long-term current use of insulin 04/06/2010 Hyperlipidemia LDL goal <70 04/06/2010 Esophageal reflux 11/11/2002 Overview (05/10/2020): Gastroesophageal Reflux Disease Lumbago 11/11/2002 Overview (05/10/2020): Pain Low Back Essential hypertension 07/26/2002 Overview (03/07/2015): Problem list name updated by automated process. Provider to review Resolved Problems Problem Noted Date Diagnosed Date Resolved Date Acute respiratory failure with hypoxia 09/01/2024 10/26/2024 Acute respiratory failure with hypoxia 07/17/2024 07/28/2024 Acute on chronic diastolic heart failure 12/06/2023 05/02/2024 Shoulder pain, bilateral 03/25/202208/2022 Pyelonephritis 05/12/2011 10/29/2016 Hyponatremia 05/12/2011 10/29/2016 Overview (04/08/2015): Diagnosis updated by automated process. Provider to review and confirm. DM (diabetes mellitus), type 2, uncontrolled 1 10/29/2016 Acute renal failure 05/12/2011 10/30/19 17 Depressive disorder, not elsewhere classified 07/26/19 03 10/29/2016 Encounters Date Type Department Care Team Description 11/09/2024 MyC Medical Advice [facility] Heart [address] [place] [phone] Ewa Amaya 11/09/2024 MyC Medical Advice [address] [phone] Mary Garcia MD MyChart Communication 11/09/2024 MyC Medical Advice [facility] [place] [address] [place] [address] 4th [place] [address] Wandy Rdz 11/08/2024 Telephone [facility] Nurse [facility]visors Critical access hospital[address] [place] [address] Rut Britton RN Results 11/06/2024 9:50 PM CDT - 11/07/2024 12:[address] [facility] Emergency Dept [address] [place] [address] [phone] Catherine Szymanski MD UTI (urinary tract infection) with pyuria Discharge Disposition: Home or Self Care 11/06/2024 Travel 10/31/2024 MyC Refill [address] [phone] Mary Garcia MD Refill Request 10/27/2024 Results Follow-Up [facility] [address] [place] [phone] Danish Del Toro APRN MECHANICAL SYSTEM TECHNICIAN Subj: Message about your results 10/26/2024 11:00 AM CDT Office Visit [facility] [phone] [place] [phone] Mary Garcia MD Medicare annual wellness visit, subsequent; Stage 3b chronic kidney disease (H); External hemorrhoids; Dysuria; Lipid screening 10/26/2024 MyC Medical Advice [facility] [address] [place] [phone] Ya Lopez MA 10/25/2024 5:50 PM CDT Office Visit [facility] [address] [place] [phone] Vee Mccoy PA-C Dysuria (Primary Dx) 10/25/2024 Results Follow-Up [facility] [address] [place] [phone] Vee Mccoy PA-C Subj: Message about your results 10/25/2024 Travel 10/25/2024 MyC Medical Advice [facility] [address] [place] [phone] Mary Garcia MD MyChart Communication 10/25/2024 MyC Medical Advice [facility] [address] [place] [phone] Mary Garcia MD MyChart Communication 10/21/2024 Travel 10/19/2024 Telephone [facility] Urology [address] [address] Klaudia Jensen RN 10/19/2024 Telephone [facility] Urology [address] [address] Vivien Blanchard MD 10/18/2024 9:08 AM CDT - 10/18/2024 11:59 PM CDT Hospital Encounter [facility] [address] [place] [phone] Non- Credentialed Provider, Lab Lanie Foster, RD, LD Discharge Disposition: Home or Self Care 10/18/2024 Travel 10/13/2024 Travel 10/12/2024 Telephone [facility] Urology [address] [address] Jessica Menchaca RN 10/12/2024 Telephone [facility] Urology [address] [address] Vivien Blanchard MD 10/10/2024 MyC Medical Advice [facility] [address] [place] [address] Teetee Velazquez PA-C 10/10/2024 Telephone [facility] [address] [place] [address] Vivien Blanchard MD Appointment 10/07/[address] [address] Trina Carbajal, PA-C Medication Refill 10/07/[address] [phone] Mary Garcia MD Medication Refill 10/07/2024 Travel 10/06/2024 MyC Medical Advice [facility] [address] [place] [address] Vivien Blanchard MD 09/29/[address] [address] Marjorie Schultz PA-C Medication Refill 09/28/2024 10:20 AM CDT Office Visit [facility] [address] [facility] [address] [place] [phone] Barry Ybarra MD UTI due to extended-spectrum beta lactamase (ESBL) producing Escherichia coli 09/28/2024 Travel 09/25/2024 Travel 09/25/[address] [phone] Mary Garcia MD 09/25/2024 Delicia Medical Advice [address] [phone] Mary Garcia MD MyChart Communication 09/21/2024 1:05 PM CDT - 09/21/2024 4:[address] [facility] Emergency Dept [address] [place] [phone] Jhony Figueroa MD Dyspnea, unspecified type Discharge Disposition: Home or Self Care 09/21/2024 Travel 09/18/2024 3:30 PM CDT Office Visit [address] [phone] Lawson Reyes MD Jain, Aparna, MD UTI due to extended-spectrum beta lactamase (ESBL) producing Escherichia coli; Heart failure with preserved ejection fraction, NYHA class I (H); Neuropathy 09/18/2024 Travel 09/15/2024 Telephone [facility] [address] [facility] [address] [place] [phone] Unknown Appointment 09/15/2024 MyC Medical Advice [facility] Urology [address] [address] Matt Franksview 09/15/2024 Telephone [facility] Urology [address] [phone] Vivien Blanchard MD 09/13/2024 8:30 AM CDT Office Visit [facility] Urology [place] [phone] [place] [phone] Vivien Blanchard MD Dysuria (Primary Dx); Personal history of urinary tract infection; Voiding dysfunction 09/13/2024 MyC Medical Advice [facility] Specialty [facility] [address] [facility] [address] [place] [phone] Stacia Curtis, JERRY 09/13/2024 Telephone [facility] [address] [facility] [address] [place] [phone] Stacia Curtis, JERRY 09/13/2024 Telephone [facility] Urology [facility] [address] [facility] 4th [place] [phone] Vivien Blanchard MD 09/13/2024 MyC Medical Advice [facility] [address] [facility] [place] [phone] Vivien Blanchard MD 09/13/2024 Travel 09/08/2024 Travel 09/07/2024 MyC Medical Advice [facility] [address] [place] [address] Diana Giraldo 09/07/[address] [phone] Mary Garcia MD Referral 09/07/2024 Telephone [facility] [address] [facility] [address] [place] [phone] Taya Castro, RN Clinic Care Coordination - Post Hospital (Post discharge phone call) 09/04/[address] [phone] Mary Garcia MD 09/01/2024 12:44 AM CDT - 09/04/2024 1:40 AM CDT Hospital Encounter [facility] 3 Medical Surgical [address] [place] [phone] Ramez Gupta MD Maddali, Seema, MD Cheng, Wenlan, MD Acute on chronic diastolic congestive heart failure (H) (Primary Dx); Acute congestive heart failure, unspecified heart failure type (H); Pneumonia of both lungs due to infectious organism, unspecified part of lung; Acute respiratory failure with hypoxia (H) Discharge Disposition: Home or Self Care 09/01/2024 Travel 08/30/2024 1:30 PM CDT Office Visit [facility] Specialty [facility] [place] [address] [facility] [address] [place] [phone] Virgie Lobato PA-C Stage 3b chronic kidney disease (H) (Primary Dx); Essential hypertension; Albuminuria; Edema, unspecified type; Secondary hyperparathyroidism 08/29/2024 Travel 08/29/2024 Refill [facility] Urology [place] [address] [place] [address] Teetee Velazquez PA-C Refill Request 08/29/2024 MyC Medical Advice [facility] [address] [place] [phone] Teetee Velazquez PA-C 08/28/2024 Orders Only [facility] Urology [place] [address] [place] [phone] Teetee Velazquez PA-C UTI due to extended-spectrum beta lactamase (ESBL) producing Escherichia coli (Primary Dx); Personal history of urinary tract infection 08/27/2024 MyC Medical Advice [facility] Heart [facility] [address] [facility] [address] [place] [phone] Federico Linda MD 08/25/2024 Telephone [facility] [address] [facility] [address] [place] [phone] Teetee Velazquez PA-C Results 08/25/2024 Orders Only [facility] [address] [place] [phone] Teetee Velazquez PA-C Urinary tract infection without hematuria, site unspecified (Primary Dx) 08/24/2024 1:30 PM CDT Allied Health/Nurse Visit [facility] [address] [place] [phone] Personal history of urinary tract infectio... 08/24/2024 Travel 08/22/2024 Travel 08/19/2024 Travel 08/16/2024 Orders Only [facility] [address] [facility] [address] [place] [phone] Stacia Curtis RN Stage 3b chronic kidney disease (H) (Primary Dx) from Last 3 Months Immunizations Immunization Administration Dates Next Due COVID-19 MONOVALENT 12+ (Pfizer) 05/09/2021,09/06,09/03/2020 Flu, Unspecified 04/09/2020 Influenza (High Dose) Trival ent,PF (Fluzone) 05/07/2022,07/03/2019,04/30/2017,2013,03/07/2012 Influenza Vaccine 65+ (FLUAD) 05/15/2023, 020 Influenza Vaccine 65+ (Fluzone HD) 05/15/2023,,05/09/2021 Influenza Vaccine >6 months,quad, PF 03/07/2017 Pneumo Conj 13-V (2010&after) 11/25/2016 Pneumococcal 23 valent 01/17/2010 TD,PF 7+ (Tenivac) 02/11/2007 TDAP (Adacel,Boostrix) 05/08/1997 TDAP Vaccine (Adacel) 07/27/2019 Tdap (Adult) Unspecified Formulation 05/08/1997 Zoster recombinant adjuvante d (Shingrix) 11/05/2018,08/17/2018 Family History Medical History Relation Comments Diabetes Brother 1 Diabetes Brother 2 Diabetes Brother 3 C.A.D. Father of heart at tack at age 60 C.A.D. Mother age 79, hea rt problems Diabetes Mother Hypertension Mother C.A.D. Paternal Grandfather Diabetes Son 1 Hypertension Son 2 Hodgkin's lymphoma Son 3 Lymphoma Son 3 Other Cancer Son 5 Hodgkin Other Cancer Son 6 Other Cancer Son 7 Melanoma Other Cancer Son 8 Hodgkin Other Cancer Son 9 Other Cancer Son 10 Melanoma Relation Status Comments Brother 1 Brother 2 Alive Brother 3 Alive Daughter Alive Father Mother Paternal Grandfather Son 1 Alive Son 2 Alive Son 3 Alive Son 4 Alive Son 5 Alive Son 6 Alive Son 7 Alive Son 8 Alive Son 9 Alive Son 10 Alive Social History Tobacco Use Types Packs/Day Years [...] re latives? Twice a week 10/21/2024 Attends Hinduism Services Not on file 10/21 Active Member of Clubs or Organizations Not on f ile 10/21/2024 Attends Club or Organization Meetings Not on dian e 10/21/2024 Marital Status Not on file 10/21/2024 PHQ-2 Answer Date Recorded PHQ-2 Score 0 10/26/2024 [facility] - Occupational [...] Sex Assigned at Female 07/18/2020 1:16 PM RADIOLOGICAL HEALTH SPECIALIST Legal Sex Female 3:23 AM RADIOLOGICAL HEALTH SPECIALIST Gender Identity Female 07/18/2020 1:16 PM RADIOLOGICAL HEALTH SPECIALIST Sexual Orientation Straight 07/18/2020 1: 16 PM RADIOLOGICAL HEALTH SPECIALIST 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 Not on file Not on file Not on file Last Filed Vital Signs Vital Sign Reading [...] Mass Index 28.38 11/06/2024 8:23 PM CDT Plan of Treatment Upcoming Encounters Date Type Department Care Team (Late st Contact Info) Description 11/16/2024 1:00 PM CDT Allied Health/Nurse Visit [facility] Urology [address] [place] [phone] Lucero Britt PA-C [address] [place], [place] [phone] 11/16/2024 2:45 PM CDT Office Visit [facility] Urology [address] [phone] Vivien Blanchard MD [address] [facility] [address] [place], [place] [phone] 11/20/2024 3:30 PM CDT Office Visit [facility] [address] [place] [phone] Mary [place] [phone] [place] [address] 11/22/2024 9:15 AM CDT Office Visit [facility] Heart [facility] [address] [facility] [address] [place] [phone] Federico Linda MD [address] [facility] [address] [place], [place] [address] 11/30/2024 10:30 AM CDT Lab [facility] [address] [place] [phone] 12/06/2024 10:10 AM CDT Office Visit [facility] [address] [place] [address] [address] [place] [phone] Virgie Lobato, PAAnthonyC [address] [place] [address] 12/28/2024 11:00 AM CDT Office Visit [facility] [address] [facility] [address] [place] [address] Barry Ybarra MD [address] [address] 01/26/2025 11:30 AM CDT Office Visit [facility] [address] [place] [phone] [place] [address] [place] [address] Health Maintenance Due Date Last Done Comments CT COLONOGRAPHY 1942 FLEX SIG 1942 HF ACTION PLAN 1942 COLONOSCOPY 10/25/2013 10/26/2003 RSV VACCINE (1 - 1-dose 75+ series) 2017 FIT 06/30/2020 06/30/2019 sDNA (Cologuard) 12/02/2023 12/01/2020, , 12/01/2020, Additional history exists COVID-19 VACCINE ( season) 2024 05/09/2021, 09/24/2020, 09/03/2020 MICROALBUMIN 09/26/2024 06/28/2024, 08/12/2023, 01/13/2023, Additional history exists A1C 01/14/2025 07/17/2024, 02/0 02/2025, 11/29/2023, Additional history exists INFLUENZA VACCINE (Season Ended) 2025 05/15/2023, 05/15/2023, 05/07/2022, Additional history exists BMP 02/06/2025 11/06/2024, 09/05, 09/04/2024, Additional history exists PHQ-9 04/28/2025 10/26/2024, 04/08, 12/06/2023, Additional history exists HEMOGLOBIN 05/08/2025 11/06/2024, 10/06, 09/21/2024, Additional history exists MAMMO SCREENING 06/12/2025 06/12/2024, 09/2023, 06/12/2022, Additional history exists ANNUAL REVIEW OF HM ORDERS 07/28/202507/28, 06/19/2022, 08/23/2020 DIABETIC FOOT EXAM 07/28/2025 07/28/2024, 0 09/09/2022, 08/23/2020, Additional history exists EYE EXAM 10/19/2025 10/19/2024, 02/05, 01/31/2024, Additional history exists FALL RISK ASSESSMENT 10/26/2025 10/26/2024, 05/02/2024, 05/11/2023, Additional history exists LIPID 10/26/2025 10/26/2024, 09/05, 06/19/2022, Additional history exists MEDICARE ANNUAL WELLNESS VISIT 10/26/2025 10/26/2024, 07/29/2023, 07/29/2023, Additional history exists ALT 11/06/2025 11/06/2024, 09/05, 09/01/2024, Additional history exists CBC 11/06/2025 11/06/2024, 10/06, 09/21/2024, Additional history exists DTAP/TDAP/TD VACCINE (5 - Td or Tdap) 07/27/2029 07/27/2019, 02/11/2007, 05/08/1997, Additional history exists ADVANCE CARE PLANNING 10/26/2029 10/26/2024 , 07/29/2023, 09/09/2022, Additional history exists DEXA 06/12/2035 06/12/2020, 06/27/2002 PNEUMOCOCCAL VACCINE 50+ YEARS Completed 11/25/2016, 01/17/2010 DEPRESSION ACTION PLAN Completed 09/16/2017 ZOSTER VACCINE Completed 11/05/2018, 08/17/2018 TSH W/FREE T4 REFLEX Completed 12/01/2023, 08/11/2022, 06/08/2022, Additional history exists PARATHYROID Completed 06/28/2024, 09/09/2022 PHOSPHORUS Completed 07/19/2024, 07/08, 07/17/2024, Additional history exists ALK PHOS Completed 11/06/2024, 09/05, 09/01/2024, Additional history exists URINALYSIS Completed 11/06/2024, 10/06, 10/25/2024, Additional history exists COLORECTAL CANCER SCREENING Discontinued HPV VACCINE Aged Out No longer eligi ble based on patient's age to complete this topic MENINGITIS VACCINE Aged Out No longer eligible based on patient's age to complete this topic Goals Goal Patient Goal Type Associated Problems Recent Progress Patient-Stated? Author Problem Solving General On track( 019 9:24 AM RADIOLOGICAL HEALTH SPECIALIST) Yes Sheryl Stringer RD Note: My Goal: I will reduce risk of low blood sugars over-night What I need to meet my goal: follow instructions for taking Novolog before meals only I plan to meet my goal by this date: 1 week Medical Devices Implanted Type Area Assembler Fitter Device Identifier Shelf Expiration Date Model / Serial / Lot Tritanium Hemispherical Cluster Hole Shell 50 Mm Implanted:Qty: 1 on 05/06/2015 by Scott Del Toro MD at [facility] Right: Hip [employer] 12/05/2019 502-03-50D / / [id number] Imp Scr Bone Strk Torx 6.5x30mm Can Implanted:Qty: 1 on 05/06/2015 by Scott Del Toro MD at [facility] Right: Hip [employer] 01/05/2020- / / [id number] Imp Scr Bone Strk Torx 6.5x20mm Can [id number] Implanted:Qty: 1 on 05/06/2015 by Scott Del Toro MD at [facility] Right: Hip [employer] 03/24/2020 [id number]- [id number] / / [id number] Trident X3, 0 Degree Polyethylene Insert 36mm Implanted:Qty: 1 on 05/06/2015 by Scott Del Toro MD at [facility] Right: Hip [employer] 01/05/2020 [id number] / / [id number] Accolade Ii 132 Degree Neck Angle Hip Stem Size [id number] Implanted:Qty: 1 on 05/06/2015 by Scott Del Toro MD at [facility] Right: Hip [employer] 01/05/2020 [id number] / / [id number] Imp Head Femoral Strk Biolox Delta Ceramic 36mm -5mm Implanted:Qty: 1 on 05/06/2015 by Scott Del Toro MD at [facility] Right: Hip [employer] 02/05/2020 6570-0-036 / / [id number] Procedures Procedure Name Priority Date/Time Associated Diagnosis Comments CT ABDOMEN PELVIS W/O CONTRAST STAT 11/06/2024 11:00 PM CDT CBC WITH PLATELETS & DIFFERENTIAL STAT 11/06/2024 10:29 PM CDT EXTRA BLUE TOP TUBE STAT 11/06/2024 1 0:29 PM CDT CBC WITH PLATELETS AND DIFFERENTIAL STAT 11/06/2024 10:29 PM CDT EXTRA TUBE STAT 11/06/2024 10:29 PM CDT LACTIC ACID WHOLE BLOOD WITH 1X REPEAT IN 2 HR WHEN >2 STAT 11/06/2024 10:29 PM CDT COMPREHENSIVE METABOLIC PANEL STAT 11/06/2024 10:29 PM CDT URINE CULTURE STAT 11/06/2024 8:38 PM CDT ROUTINE UA WITH MICROSCOPIC REFLEX TO CULTURE STAT 11/06/2024 8:38 PM CDT UA MICROSCOPIC WITH REFLEX TO CULTURE Routine 10/26/2024 11:47 AM CDT Dysuria UA MACROSCOPIC WITH REFLEX TO MICRO AND CULTURE Routine 10/26/2024 11:47 AM CDT Dysuria CBC WITH PLATELETS Routine 10/26/2024 11 :35 AM CDT Dysuria LIPID REFLEX TO DIRECT LDL PANEL Routine 10/26/2024 11:35 AM CDT Lipid screening URINE CULTURE Add-On 10/25/2024 5:58 PM CDT Dysuria UA MICROSCOPIC WITH REFLEX TO CULTURE Routine 10/25/2024 5:58 PM CDT Dysuria UA MACROSCOPIC WITH REFLEX TO MICRO AND CULTURE Routine 10/25/2024 5:58 PM CDT Dysuria EYE EXAM - HIM SCAN 10/19/2024 1 2:00 AM CDT ROUTINE UA WITH MICROSCOPIC REFLEX TO CULTURE STAT 09/21/2024 3:56 PM CDT TROPONIN T, HIGH SENSITIVITY STAT 09/21/2024 3:43 PM CDT XR CHEST 2 VIEWS STAT 09/21/2024 2:42 PM CDT INFLUENZA A/B, RSV AND SARS-COV2 PCR STAT 09/21/2024 1:38 PM CDT CBC WITH PLATELETS & DIFFERENTIAL STAT 09/21/2024 1:37 PM CDT EXTRA RED TOP TUBE STAT 09/21/2024 1: 37 PM CDT EXTRA BLUE TOP TUBE STAT 09/21/2024 1 :37 PM CDT CBC WITH PLATELETS AND DIFFERENTIAL STAT 09/21/2024 1:37 PM CDT EXTRA TUBE STAT 09/21/2024 1:37 PM CDT MAGNESIUM STAT 09/21/2024 1:37 PM CDT BLOOD GAS VENOUS STAT 09/21/2024 1:37 PM CDT TROPONIN T, HIGH SENSITIVITY STAT 09/21/2024 1:37 PM CDT COMPREHENSIVE METABOLIC PANEL STAT 09/21/2024 1:37 PM CDT EKG 12-LEAD, TRACING ONLY STAT 2024 1:16 PM CDT MA CYSTOURETHROSCOPY Routine 09/13/2024 9:12 AM CDT Dysuria Personal history of urinary tract infection Voiding dysfunction URINALYSIS MACROSCOPIC Routine 8:20 AM CDT Dysuria GLUCOSE BY METER Routine 09/04/2024 11:5 6 AM CDT GLUCOSE BY METER Routine 09/04/2024 8:59 AM CDT BASIC METABOLIC PANEL Routine 09/04/2024 7:56 AM CDT CBC WITH PLATELETS Routine 09/04/2024 7: 56 AM CDT GLUCOSE BY METER Routine 09/04/2024 2:12 AM CDT GLUCOSE BY METER Routine 09/03/2024 9:45 PM CDT GLUCOSE BY METER Routine 09/03/2024 5:23 PM CDT GLUCOSE BY METER Routine 09/03/2024 2:56 PM CDT GLUCOSE BY METER Routine 09/03/2024 2:22 PM CDT GLUCOSE BY METER Routine 09/03/2024 2:10 PM CDT GLUCOSE BY METER Routine 09/03/2024 1:58 PM CDT GLUCOSE BY METER Routine 09/03/2024 11:4 3 AM CDT GLUCOSE BY METER Routine 09/03/2024 8:20 AM CDT BASIC METABOLIC PANEL Routine 09/03/2024 5:54 AM CDT CBC WITH PLATELETS Routine 09/03/2024 5: 54 AM CDT GLUCOSE BY METER Routine 09/03/2024 2:05 AM CDT GLUCOSE BY METER Routine 09/02/2024 9:35 PM CDT GLUCOSE BY METER Routine 09/02/2024 4:51 PM CDT GLUCOSE BY METER Routine 09/02/2024 11:4 4 AM CDT GLUCOSE BY METER Routine 09/02/2024 7:33 AM CDT BASIC METABOLIC PANEL Routine 09/02/2024 6:11 AM CDT CBC WITH PLATELETS Routine 09/02/2024 6: 11 AM CDT GLUCOSE BY METER Routine 09/02/2024 2:03 AM CDT GLUCOSE BY METER Routine 09/01/2024 9:39 PM CDT TROPONIN T, HIGH SENSITIVITY STAT 09/01/2024 4:59 PM CDT GLUCOSE BY METER Routine 09/01/2024 4:15 PM CDT GLUCOSE BY METER Routine 09/01/2024 3:44 PM CDT MRSA MSSA PCR, NASAL SWAB STAT 2024 11:55 AM CDT LEGIONELLA URINARY ANTIGEN AND STREPTOCOCCUS PNEUMONIAE ANTIGEN STAT 09/01/2024 11:54 AM CDT GLUCOSE BY METER STAT 09/01/2024 11:5 3 AM CDT ECHO COMPLETE WITH CONTRAST Routine 09/01/2024 8:44 AM CDT GLUCOSE BY METER STAT 09/01/2024 8:26 AM CDT CBC WITH PLATELETS & DIFFERENTIAL STAT 09/01/2024 8:20 AM CDT TROPONIN T, HIGH SENSITIVITY Add-On 09/01/2024 8:20 AM CDT CBC WITH PLATELETS AND DIFFERENTIAL STAT 09/01/2024 8:20 AM CDT COMPREHENSIVE METABOLIC PANEL STAT 09/01/2024 8:20 AM CDT GLUCOSE BY METER STAT 09/01/2024 4:40 AM CDT TROPONIN T, HIGH SENSITIVITY STAT 09/01/2024 3:04 AM CDT ROUTINE UA WITH MICROSCOPIC REFLEX TO CULTURE STAT 09/01/2024 2:[address] CHEST PULMONARY EMBOLISM W CONTRAST STAT 09/01/2024 2:23 AM CDT INFLUENZA A/B, RSV AND SARS-COV2 PCR STAT 09/01/2024 1:25 AM CDT EKG 12-LEAD, TRACING ONLY STAT 2024 12:57 AM CDT CBC WITH PLATELETS & DIFFERENTIAL STAT 09/01/2024 12:54 AM CDT D DIMER QUANTITATIVE STAT 09/01/2024 12:54 AM CDT NT PROBNP INPATIENT STAT 09/01/2024 1 2:54 AM CDT EXTRA RED TOP TUBE STAT 09/01/2024 12 :54 AM CDT EXTRA BLUE TOP TUBE STAT 09/01/2024 1 2:54 AM CDT CBC WITH PLATELETS AND DIFFERENTIAL STAT 09/01/2024 12:54 AM CDT BLOOD GAS VENOUS STAT 09/01/2024 12:5 4 AM CDT LACTIC ACID WHOLE BLOOD STAT 09/02/19 12:54 AM CDT EXTRA TUBE STAT 09/01/2024 12:54 AM CDT TROPONIN T, HIGH SENSITIVITY STAT 09/01/2024 12:54 AM CDT BASIC METABOLIC PANEL STAT 09/01/2024 12:54 AM CDT URINE CULTURE Routine 08/24/2024 1:44 PM CDT Urinary tract infection without hematuria, site unspecified Female stress incontinence Dysuria Personal history of urinary tract infection Voiding dysfunction URINALYSIS MACROSCOPIC Routine 1:44 PM CDT Urinary tract infection without hematuria, site unspecified Female stress incontinence Dysuria Personal history of urinary tract infection Voiding dysfunction PHOSPHORUS Routine 07/19/2024 7:24 AM RADIOLOGICAL HEALTH SPECIALIST HEMOGLOBIN A1C Add-On 07/17/2024 6:59 AM RADIOLOGICAL HEALTH SPECIALIST ALBUMIN RANDOM URINE QUANTITATIVE Routine 06/28/2024 11:55 AM RADIOLOGICAL HEALTH SPECIALIST Stage 3b chronic kidney disease (H) Vitamin D deficiency Anemia PARATHYROID HORMONE INTACT Routine 06/28/2024 9:38 AM RADIOLOGICAL HEALTH SPECIALIST Stage 3b chronic kidney disease (H) Vitamin D deficiency Anemia MAMMOGRAM - HIM SCAN Routine 06/12/2024 TSH WITH FREE T4 REFLEX Add-On 12/01/19 8:06 AM CDT Insomnia, unspecified type COLOGUARD([employer]) Routine 12/01/2020 Colon cancer screening DEXA - HIM SCAN 06/12/2020 12:00 AM RADIOLOGICAL HEALTH SPECIALIST OCCULT BLOOD STOOL STAT 06/30/2019 3: 17 PM RADIOLOGICAL HEALTH SPECIALIST ZZHC COLONOSCOPY W/WO BRUSH/WASH Routine 10/26/2003 Diarrhea Nos from Last 3 Months or Most Recently Relevant to Health Maintenance Results * CT Abdomen Pelvis w/o Contrast [...] EXAM: CT ABDOMEN PELVIS W/O CONTRAST LOCATION: [facility] DATE: 11/06/2024 INDICATION: flank pain, UTI COMPARISON: [...] EXAM: CT ABDOMEN PELVIS W/O CONTRAST LOCATION: [facility] DATE: 11/06/2024 INDICATION: flank pain, UTI COMPARISON: [...] Blue Top Tube (11/06/2024 10:29 PM CDT) Only the most recent of3 resultswithin the time period is included. Hold Specimen JIC 11/06/2024 11:46 PM CDT LABORATORY Blood BLOOD SPECIMEN / Unknown Venipuncture / Unknown 11/06/2024 10:29 PM CDT 11/06/2024 10:37 PM CDT Catherine Szymanski MD LAB - BLOOD ORDERABLES Final Res ult [facility] [address] Lab (1st floor, no room number) [place] [phone] * Lactic acid whole blood with 1x repeat in 2 hr when >2 (11/06/2024 10:29 PM CDT) [facility] Lactic Acid, Initial 1.6 0.7 - 2.0 mmol/L 11/06/2024 10:38 PM CDT LABORATORY Blood BLOOD SPECIMEN / Unknown Venipuncture / Unknown 11/06/2024 10:29 PM CDT 11/06/2024 10:37 PM CDT Catherine Szymanski MD LAB - BLOOD ORDERABLES Final Res ult [facility] [address] Lab (1st floor, no room number) [place] [phone] * (ABNORMAL) CBC with platelets and differential (11/06/2024 10:29 PM CDT) Only the most recent of4 resultswithin the time period is included. WBC Count 11.6(H) 4.0 - 11.0 10e3/uL 11/06/2024 10:39 PM CDT LABORATORY RBC Count 4.37 3.80 - 5.20 [...] 0.1 <=0.4 10e3/uL 11/06/2024 10:39 PM CDT LABORATORY Absolute NRBCs 0.0 10e3/uL 11/06/2024 10:39 PM CDT LABORATORY Blood BLOOD SPECIMEN / Unknown Venipuncture / Unknown 11/06/2024 10:29 PM CDT 11/06/2024 10:37 PM CDT us Catherine Szymanski MD LAB - BLOOD ORDERABLES Final Res ult [facility] LABORATORY [facility] [address] Lab (1st floor, no room number) [place] [address], [facility] * (ABNORMAL) Comprehensive metabolic panel (11/06/2024 10:29 PM CDT) Only the most recent of3 resultswithin the time period is included. Sodium 141 135 - 145 mmol/L 11/06/2024 [...] >60 mL/min/1.7 3m2 11/06/2024 10:59 PM CDT LABORATORY Comment:eGFR calculated 2020 CKD-EPI equation. Calcium 9.3 8.8 - 10.4 mg/dL 11/06/2024 10:59 PM CDT LABORATORY Chloride 104 98 - 107 mmol/L 11/06/2024 10:59 PM CDT LABORATORY Glucose 173(H) 70 - 99 mg/dL 11/06/2024 10:59 PM CDT LABORATORY Alkaline Phosphatase 73 40 - 150 U/L 11/06/2024 10:59 PM CDT LABORATORY AST 26 0 - 45 U/L 11/06/2024 10:59 PM CDT LABORATORY ALT 19 0 - 50 U/L 11/06/2024 10:59 PM CDT LABORATORY Protein Total 7.9 6.4 - 8.3 g/dL 11/06/2024 10:59 PM CDT LABORATORY Albumin 4.1 3.5 - 5.2 g/dL 11/06/2024 10:59 PM CDT LABORATORY Bilirubin Total 0.3 <=1.2 mg/dL 11/06/2024 10:59 PM CDT LABORATORY Blood BLOOD SPECIMEN / Unknown Venipuncture / Unknown 11/06/2024 10:29 PM CDT 11/06/2024 10:37 PM CDT us Catherine Szymanski MD LAB - BLOOD ORDERABLES Final Res ult LABORATORY [facility] [address] Lab (1st floor, no room number) [place] [address], [facility] * (ABNORMAL) UA with Microscopic reflex to Culture (11/06/2024 8:38 PM CDT) Only the most recent of3 resultswithin the time period is included. Color Urine Light Yellow Colorless, Straw, Light Yellow, Yellow 11/06/2024 9:11 PM CDT LABORATORY Appearance Urine Slightly Cloudy(A) Clear 11/06/2024 9:11 PM CDT LABORATORY Glucose Urine 30(A) Negative mg/dL 11/06/2024 9:11 PM CDT LABORATORY Bilirubin Urine Negative Negative 9:11 PM CDT LABORATORY Ketones Urine Negative Negative mg/dL 11/06/2024 9:11 PM CDT LABORATORY Specific [place] Urine 1.017 1.003 - 1.035 11/06/2024 9:11 PM CDT LABORATORY Blood Urine Small(A) Negative 11/06/2024 9:11 PM CDT LABORATORY pH Urine 6.0 5.0 - 7.0 11/06/2024 9:11 PM CDT RH LABORATORY Protein Albumin Urine 100(A) Negative mg/dL 11/06/2024 9:11 PM CDT RH LABORATORY Urobilinogen Urine Normal Normal mg/dL 11/06/2024 9:11 PM CDT RH LABORATORY Nitrite Urine Negative Negative 11/06/2024 9:11 PM CDT RH LABORATORY Leukocyte Esterase Urine Moderate(A) Negative 11/06/2024 9:11 PM CDT RH LABORATORY Bacteria Urine Many(A) None Seen /HPF 11/06/2024 9:11 PM CDT RH LABORATORY Mucus Urine Present(A) None Seen /LPF 11/06/2024 9:11 PM CDT RH LABORATORY RBC Urine 2 <=2 /HPF 11/06/2024 9:11 PM CDT RH LABORATORY WBC Urine 72(H) <=5 /HPF 11/06/2024 9:11 PM CDT RH LABORATORY Squamous Epithelials Urine 19(H) <=1 /HPF 11/06/2024 9:11 PM CDT RH LABORATORY Hyaline Casts Urine 1 <=2 /LPF 11/06/2024 9:11 PM CDT RH LABORATORY Urine URINE SPECIMEN OBTAINED BY CLEAN CATCH PROCEDURE / Unknown Non-blood Collection / Unknown 11/06/2024 8:38 PM CDT 11/06/2024 8:46 PM CDT Narrative LABORATORY - 11/06/2024 9:11 PM CDT Urine Culture ordered based on laboratory criteria us Catherine Szymanski MD LAB - URINE ORDERABLES Final Res ult LABORATORY [facility] [address] [facility] Lab (1st floor, no room number) [place] [address], [facility] * (ABNORMAL) Urine Culture (11/06/2024 8:38 PM CDT) Only the most recent of3 resultswithin the time period is included. Culture 50,000-100,000 CFU/mL Klebsiella oxytoca(A) 11/08/2024 12:04 [...] Klebsiella oxytoca Trimethoprim/Sulfamethoxazole [facility] <=1/19 ug/mL: Susceptible Catherine Szymanski MD LAB - MICRO GENERAL ORDERABLES F inal Result UU IDD LABORATORY [facility] Inf. Diseases Diag. Lab [address] [facility], [address] [place], [place] [id number] * (ABNORMAL) UA Microscopic with Reflex to Culture (10/26/2024 11:47 AM CDT) Only the most recent of2 resultswithin the time period is included. Bacteria Urine Few(A) None Seen /HPF [facility] 10/26/2024 11:57 AM CDT LV LABORATORY RBC Urine 0-2 0-2 /HPF /HPF [facility] 10/26/2024 11:57 AM CDT [facility] LABORATORY WBC Urine 5-10(A) 0-5 /HPF /HPF [facility] 10/26/2024 11:57 AM CDT [facility] LABORATORY Squamous Epithelials Urine Moderate( A) None Seen /LPF [facility] 10/26/2024 11:57 AM CDT [facility] LABORATORY Hyaline Casts Urine 2-5(A) None Seen /LPF [facility] 10/26/2024 11:57 AM CDT [facility] LABORATORY Urine URINE SPECIMEN OBTAINED BY CLEAN CATCH PROCEDURE / Unknown Non-blood Collection / Unknown 10/26/2024 11:47 AM CDT 10/26/2024 11:48 AM CDT Narrative [facility] LABORATORY - 10/26/2024 11:57 AM CDT Urine Culture not indicated us Mary Garcia MD LAB - URINE ORDERABLES Final Res ult LABORATORY [facility] [address] [facility] Lab (no room number, 1st floor of clinic) [place] [address], [facility] * (ABNORMAL) UA Macroscopic with reflex to Microscopic and Culture - Lab Collect (10/26/2024 11:47 AMCDT) Only the most recent of2 resultswithin the time period is included. Color Urine Yellow Colorless, Straw, Light Yellow, Yellow 10/26/2024 11:52 AM CDT LABORATORY Appearance Urine Clear Clear 10/27/19 11:52 AM CDT LABORATORY Glucose Urine Negative Negative mg/dL 10/26/2024 11:52 AM CDT LABORATORY Bilirubin Urine Negative Negative 11:52 AM CDT LABORATORY Ketones Urine Negative Negative mg/dL 10/26/2024 11:52 AM CDT LABORATORY Specific [place] Urine 1.020 1.003 - 1.035 10/26/2024 11:52 AM CDT LABORATORY Blood Urine Trace(A) Negative 10/26/2024 11:52 AM CDT LABORATORY pH Urine 5.5 5.0 - 7.0 10/26/2024 11:52 AM CDT LABORATORY Protein Albumin Urine >=300(A) Negative mg/dL 10/26/2024 11:52 AM CDT LABORATORY Urobilinogen Urine 0.2 0.2, 1.0 E.U./dL 10/26/2024 11:52 AM CDT LABORATORY Nitrite Urine Negative Negative 10/26/2024 11:52 AM CDT LABORATORY Leukocyte Esterase Urine Trace(A) Negative 10/26/2024 11:52 AM CDT LABORATORY Urine URINE SPECIMEN OBTAINED BY CLEAN CATCH PROCEDURE / Unknown Non-blood Collection / Unknown 10/26/2024 11:47 AM CDT 10/26/2024 11:48 AM CDT us Mary Garcia MD LAB - URINE ORDERABLES Final Res ult LABORATORY [facility] [address] [facility] Lab (no room number, 1st floor of clinic) [place] [address], [facility] * (ABNORMAL) Lipid panel reflex to direct [...] BLOOD ORDERABLES Final Res ult UU LABORATORY [facility] [address] [facility], [address] [place] [address], [facility] * (ABNORMAL) CBC with platelets (10/26/2024 11:35 AM CDT) Only the most recent of4 resultswithin the time period is included. WBC Count 11.6(H) 4.0 - 11.0 10e3/uL [...] BLOOD ORDERABLES Final Res ult LV LABORATORY [facility] [address] [facility] Lab (no room number, 1st floor of clinic) [place] [address], [facility] * (ABNORMAL) Eye Exam - HIM Scan (10/19/2024 12:00 AM CDT) RETINOPATHY POSITIVE(A ) 10/19/2024 Narrative Tariq Holcomb - 10/19/2024 12:00 AM CDT EYE EXAM [facility] us Provider Outside OTHER Edited Result - Final * (ABNORMAL) Troponin T, High Sensitivity (09/21/2024 3:43 PM CDT) Only the most recent of6 resultswithin the time period is included. Troponin T, High Sensitivity 54(H) <=14 ng/L 09/21/2024 4:11 PM CDT LABORATORY Comment: Either a High Sensitivity Troponin T baseline (0 hours) value = 100 ng/L, or an increase in High Sensitivity Troponin T = 7 ng/L at 2 hours compared to 0 hours (2-0 hours), suggests myocardial injury, and urgent clinical attention is required. If the 2-0 hours increase is <7 ng/L, a High Sensitivity Troponin T result above gender-specific reference ranges warrants further evaluation. Recommendations for further evaluation include correlation with clinical decision-making tool (e.g., HEART), a 3rd High Sensitivity Troponin T test 2 hours after the 2nd (a 20% change from baseline would represent concern), admission for observation, close PCC/cardiology follow-up, or urgent outpatient provocative testing. Blood BLOOD SPECIMEN / Unknown Venipuncture / Unknown 09/21/2024 3:43 PM CDT 09/21/2024 3:46 PM CDT us Jhony Figueroa MD LAB - BLOOD ORDERABLES Fi nal Result LABORATORY [facility] [address] Lab (1st floor, no room number) [place] [address], [facility] * Chest XR, PA & LAT (09/21/2024 2:42 PM CDT) Anatomical Region Laterality Modality Chest Digital Radiogra phy 09/21/2024 2:42 PM CDT Impressions 09/21/2024 2:51 PM CDT IMPRESSION: Enlarged cardiomediastinal silhouette. No focal consolidation is seen in the lungs to suggest pneumonia. Subtle hazy opacities in the lower lungs may reflect subsegmental atelectasis. Degenerative changes are seen in the spine. Narrative 09/21/2024 2:51 PM CDT EXAM: XR CHEST 2 VIEWS LOCATION: [facility] DATE: 09/21/2024 INDICATION: dyspnea COMPARISON: 07/16/2024 Procedure Note Brady Crespo MD - 09/21/2024 EXAM: XR CHEST 2 VIEWS LOCATION: [facility] DATE: 09/21/2024 INDICATION: dyspnea COMPARISON: 07/16/2024 IMPRESSION: Enlarged cardiomediastinal silhouette. No focal consolidationis seen in the lungs to suggest pneumonia. Subtle hazy opacities in thelower lungs may reflect subsegmental atelectasis. Degenerative changes areseen in the spine. Jhony Figueroa MD IMG DIAGNOSTIC IMAGING OR DERABLES Final Result * Influenza A/B, RSV and SARS-CoV2 PCR (COVID-19) Nasopharyngeal (09/21/2024 1:38 PM CDT) Only the most recent of2 resultswithin the time period is included. Influenza A PCR Negative Negative 09/21/2024 3:25 PM CDT LABORATORY Influenza B PCR Negative Negative 09/21/2024 3:25 PM CDT LABORATORY RSV PCR Negative Negative 09/21/2024 3:25 PM CDT LABORATORY SARS CoV2 PCR Negative Negative 09/21/2024 3:25 PM CDT LABORATORY Comment:NEGATIVE: SARS-CoV-2 (COVID-19) RNA not detected, presumed negative. Swab NASOPHARYNGEAL STRUCTURE / Unknown Non-blood Collection / Unknown 09/21/2024 1:38 PM CDT 09/21/2024 1:48 PM CDT [facility] LABORATORY - 09/21/2024 3:25 PM CDT Testing was performed using the Xpert Xpress CoV2/Flu/RSV Assay on the [employer] GeneXpert Instrument. This test should be ordered for the detection of SARS- CoV2, influenza, and RSV viruses in individuals with signs and symptoms of respiratory tract infection. This test is for in vitro diagnostic use under the [place] FDA for laboratories certified under CLIA to perform high or moderate complexity testing. This test has been [place] FDA cleared. A negative result does not rule out the presence of PCR inhibitors in the specimen or target RNA in concentration below the limit of detection for the assay. If only one viral target is positive but coinfection with multiple targets is suspected, the sample should be re-tested with another FDA cleared, approved, or authorized test, if coninfection would change clinical management. This test was validated by the [facility]. These laboratories are certified under the Clinical Laboratory Improvement Amendments of 1988 (CLIA-88) as qualified to perfom high complexity laboratory testing. Jhony Figueroa MD LAB - MICRO GENERAL ORDER GRISELDA Final Result Performing Organization Address City/[facility]/ZIP Co de Phone Number [facility] [address] Lab (1st floor, no room number) [address] [place] [address] * Extra Red Top Tube (09/21/2024 1:37 PM CDT) Only the most recent of2 resultswithin the time period is included. [facility] Hold Specimen [facility] 09/21/2024 3:01 PM CDT LABORATORY Blood STRUCTURE OF LEFT UPPER LIMB / Unknown Venipuncture / Unknown 09/21/2024 1:37 PM CDT 09/21/2024 1:48 PM CDT Jhony Figueroa MD LAB - BLOOD ORDERABLES Fi nal Result [facility] [address] Lab (1st floor, no room number) [place] [phone] * Magnesium (09/21/2024 1:37 PM CDT) [facility] Magnesium 1.8 1.7 - 2.3 mg/dL 09/21/2024 2:11 PM CDT [facility] LABORATORY Blood BLOOD SPECIMEN / Unknown Venipuncture / Unknown 09/21/2024 1:37 PM CDT 09/21/2024 1:48 PM CDT us Jhony Figueroa MD LAB - BLOOD ORDERABLES Fi nal Result RH LABORATORY [facility] [address] Lab (1st floor, no room number) [place] [address] * (ABNORMAL) Blood gas venous (09/21/2024 1:37 PM CDT) Only the most recent of2 resultswithin the time period is included. pH Venous 7.59(H) 7.32 - 7.43 09/21/2024 1:56 PM CDT RH LABORATORY pCO2 Venous 29(L) 40 - 50 mm Hg 09/21/2024 1:56 PM CDT RH LABORATORY pO2 Venous 24(L) 25 - 47 mm Hg 09/21/2024 1:56 PM CDT RH LABORATORY Bicarbonate Venous 28 21 - 28 mmol/L 09/21/2024 1:56 PM CDT RH LABORATORY Base Excess/Deficit Venous 6.1(H) -3.0 - 3.0 mmol/L 09/21/2024 1:56 PM CDT RH LABORATORY FIO2 21 [facility] 09/21/2024 1:56 PM CDT [facility] LABORATORY Comment:RA Oxyhemoglobin Venous 47(L) 70 - 75 % 09/21/2024 1:56 PM CDT [facility] LABORATORY O2 Sat, Venous 47.9(L) 70.0 - 75.0 % 09/21/2024 1:56 PM CDT [facility] LABORATORY Blood, venous STRUCTURE OF LEFT UPPER LIMB / Unknown Venipuncture / Unknown 09/21/2024 1:37 PM CDT 09/21/2024 1:48 PM CDT Narrative [facility] LABORATORY - 09/21/2024 1:56 PM CDT In healthy individuals, oxyhemoglobin (O2Hb) and oxygen saturation (SO2) are approximately equal. In the presence of dyshemoglobins, oxyhemoglobin can be considerably lower than oxygen saturation. Jhony Figueroa MD LAB - BLOOD ORDERABLES Fi nal Result Performing Organization Address City/[facility]/ZIP Co de Phone Number [facility] [address] Lab (1st floor, no room number) [place] [address], [facility] * EKG 12-lead, tracing only (09/21/2024 1:16 PM CDT) Only the most recent of2 resultswithin the time period is included. Systolic Blood Pressure mmHg RADIOLOGY RESULTS Diastolic Blood Pressure mmHg RADIOLOGY RESULTS Ventricular Rate 76 BPM RAD IOLOGY RESULTS Atrial Rate 76 BPM RADIOLOG Y RESULTS MA Interval 150 ms RADIOLOG Y RESULTS QRS Duration 106 ms RADIOLO GY RESULTS QT 452 ms RADIOLOGY RESULTS QTc 508 ms RADIOLOGY RESULTS P Vici 64 degrees RADIOLOGY RESULTS R AXIS 88 degrees RADIOLOGY RESULTS T Vici 28 degrees RADIOLOGY RESULTS Interpretation ECG Sinus rhythm Prolonged QT Abnormal ECG When compared with ECG of 01-Sep-2024 00:57, Premature atrial complexes are no longer Present Unconfirmed report - interpretation of this ECG is computer generated - see medical record for final interpretation Confirmed by - EMERGENCY ROOM, PHYSICIAN ([id number]), greeting card editor Neri Tapia ([id number]) on 09/21/2024 1:48:06 PM RADIOLOGY RESULTS 09/21/2024 1:16 PM CDT 09/21/2024 1:48 PM CDT Jhony Figueroa MD ECG ORDERABLES Edited Re sult - Final RADIOLOGY RESULTS * (ABNORMAL) UA without Microscopic [[id number]] (09/13/2024 8:20 AM CDT) Only the most recent of2 resultswithin the time period is included. Color Urine Yellow Colorless, Straw, Light Yellow, Yellow 09/13/2024 8:55 AM CDT [facility] Appearance Urine Clear Clear 09/14/19 25 8:55 AM CDT [facility] Glucose Urine Negative Negative mg/dL 09/13/2024 8:55 AM CDT [facility] Bilirubin Urine Negative Negative 8:55 AM CDT [facility] Ketones Urine Negative Negative mg/dL 09/13/2024 8:55 AM CDT [facility] Specific [place] Urine 1.020 1.003 - 1.035 09/13/2024 8:55 AM CDT [facility] Blood Urine Trace(A) Negative 09/13/2024 8:55 AM CDT [facility] pH Urine 6.0 5.0 - 7.0 09/13/2024 8:55 AM CDT [facility] Protein Albumin Urine >=300(A) Negative mg/dL 09/13/2024 8:55 AM CDT [facility] Urobilinogen Urine 0.2 0.2, 1.0 E.U./dL 09/13/2024 8:55 AM CDT [facility] Nitrite Urine Negative Negative 09/13/2024 8:55 AM CDT [facility] Leukocyte Esterase Urine Negative Negative 09/13/2024 8:55 AM CDT [facility] Urine MID-STREAM URINE SPECIMEN / Unknown Non-blood Collection / Unknown 09/13/2024 8:20 AM CDT 09/13/2024 8:20 AM CDT Vivien Blanchard MD LAB - URINE ORDERABLES F inal Result [facility] [address] , [address] [place] [address], [facility] [phone] * (ABNORMAL) Glucose by meter (09/04/2024 11:56 AM CDT) Only the most recent of23 resultswithin the time period is included. [facility] Signature GLUCOSE BY METER POCT 169(H) 70 - 99 mg/dL 09/04/2024 12:03 PM CDT LABORATORY POC Blood, Capillary BLOOD SPECIMEN / Unknown 09/04/2024 11:56 AM CDT 09/04/2024 12:03 PM CDT Catherine Szymanski MD LAB - BEAKER POCT Final Result LABORATORY POC [facility] Acute Care Lab [address] Lab (1st floor, no room number) [place] [address], [facility] * (ABNORMAL) Basic metabolic panel (09/04/2024 7:56 AM CDT) Only the most recent of4 resultswithin the time period is included. Sodium 143 135 - 145 mmol/L 09/04/2024 8:24 AM CDT LABORATORY Potassium 4.3 3.4 - 5.3 mmol/L 09/04/2024 8:24 AM CDT LABORATORY Chloride 105 98 - 107 mmol/L 09/04/2024 8:24 AM CDT LABORATORY Carbon Dioxide (CO2) 27 22 - 29 mmol/L 09/04/2024 8:24 AM CDT LABORATORY Anion Gap 11 7 - 15 mmol/L 09/04/2024 8:24 AM CDT LABORATORY Urea Nitrogen 27.5(H) 8.0 - 23.0 mg/dL 09/04/2024 8:24 AM CDT LABORATORY Creatinine 1.55(H) 0.51 - 0.95 mg/dL 09/04/2024 8:24 AM CDT LABORATORY GFR Estimate 33(L) >60 mL/min/1.7 3m2 09/04/2024 8:24 AM CDT LABORATORY Comment:eGFR calculated usin 2020 CKD-EPI equation. Calcium 8.9 8.8 - 10.4 mg/dL 09/04/2024 8:24 AM CDT LABORATORY Glucose 107(H) 70 - 99 mg/dL 09/04/2024 8:24 AM CDT LABORATORY Blood STRUCTURE OF RIGHT UPPER LIMB / Unknown Venipuncture / Unknown 09/04/2024 7:56 AM CDT 09/04/2024 7:58 AM CDT us Dia Brower MD LAB - BLOOD ORDERABLES Final Res ult LABORATORY [facility] Acute Care Lab [address] Lab (1st floor, no room number) [place] [address], [place] * MRSA MSSA PCR, Nasal Swab (09/01/2024 11:55 AM CDT) MRSA Target DNA Negative Negative 09/01/2024 5:02 PM CDT [facility] SA Target DNA Negative 09/01/2024 5:02 PM CDT [facility] Swab BOTH ANTERIOR NARES / Unknown Non-blood Collection / Unknown 09/01/2024 11:55 AM CDT 09/01/2024 12:02 PM CDT Narrative [facility] - 09/01/2024 5:02 PM CDT The Nelbee Xpert SA Nasal Complete assay performed in the [employer] System is a qualitative in vitro diagnostic test designed for rapid detection of Staphylococcus aureus (SA) and methicillin-resistant Staphylococcus aureus (MRSA) from nasal swabs in patients at risk for nasal colonization. The test utilizes automated real-time polymerase chain reaction (PCR) to detect MRSA/SA DNA. The Xpert SA Nasal Complete assay is intended to aid in the prevention and control of MRSA/SA infections in healthcare settings. The assay is not intended to diagnose, guide or monitor treatment for MRSA/SA infections, or provide results of susceptibility to methicillin. A negative result does not preclude MRSA/SA nasal colonization. Dia Brower MD LAB - MICRO GENERAL ORDERABLES F inal Result [facility] Inf. Diseases Diag. Lab [address] [facility], [address] [place] [address], [facility] * Legionella Urinary Antigen and Streptococcus pneumoniae antigen (09/01/2024 11:54 AM CDT) Legionella pneumophila serogroup 1 urinary antigen Negative Negative [place] 09/01/2024 4:00 PM CDT [facility] Comment:A negative result do es not exclude the possibility of a Legionella infection, as it can be caused by other serogroups and species of Legionella. Streptococcus pneumoniae antigen Negative Negative [place] 09/01/2024 4:00 PM CDT [facility] Comment:A negative result do es not exclude a Streptococcus pneumoniae infection. Legionella pneumophila Urinary/Strep pneumoniae Antigen Specimen Type Urine 09/01/2024 4:00 PM CDT [facility] Urine VOIDED URINE SPECIMEN / Unknown Non-blood Collection / Unknown 09/01/2024 11:54 AM CDT 09/01/2024 12:03 PM CDT Narrative [facility] - 09/01/2024 4:00 PM CDT The result of this test as well as culture, serology, or other antigen detection methods should be used in conjunction with clinical findings to make an accurate diagnosis. us Dia Brower MD LAB - MICRO GENERAL ORDERABLES F inal Result [facility] Inf. Diseases Diag. Lab [address] [facility], [address] [place] [address] * ECHO COMPLETE WITH CONTRAST (09/01/2024 8:44 AM CDT) LVEF 65-70% CARDIOLOGY RESULTS Anatomical Region Laterality Modality Echocardiography 09/01/2024 7:31 AM CDT Narrative 09/01/2024 9:17 AM CDT [id number]^ANTONIO^KORIN [facility] Echocardiography Laboratory [address] [place] [address] Name: NOVA LIVE : 1940 Study Date: 09/01/2024 07:31 AM Age: 84 yrs Gender: Female Patient Location: [facility] Reason For Study: CHF Ordering Physician: KORIN SEBASTIAN Performed By: Naila Brown BSA: 1.8 m2 Height: 64 in Weight: 166 lb HR: 79 BP: 148/71 mmHg Procedure Echocardiogram with two-dimensional, color and spectral Doppler. Micaela ([facility] [place] #[id number]) given intravenously. Interpretation Summary 1. The left [...] mitral regurgitation. There is moderate mitral stenosis. Severe calcification of the posterior annulus with [...] Ht(cm/m): 1.9 Ao root diam index BSA (cm/m2): 1.7 Asc Ao diam index BSA (cm/m2): [...] max P.2 mmHg LV V1 max: 124.0 cm/sec LV V1 VTI: 26.1 cm SV(LVOT): 83.9 ml SI(LVOT): 46.4 ml/m2 TR max ivonne: 215.6 cm/sec TR max P.6 mmHg Report approved by: Jeff Wilder MD on 09/01/2024 09:17 AM Procedure Note Jeff Wilder MD - 09/01/2024 [id number]^ANTONIO^KORIN [facility] Echocardiography Laboratory [address] [place] [address] Name: NOVA LIVE : 1940 Study Date: 09/01/2024 07:31 AM Age: 84 yrs Gender: Female Patient Location: [facility] Reason For Study: CHF Ordering Physician: KORIN SEBASTIAN Performed By: Naila Brown BSA: 1.8 m2 Height: 64 in Weight: 166 lb HR: 79 BP: 148/71 mmHg Procedure Echocardiogram with two-dimensional, color and spectral Doppler. Optison([facility] [place] #[id number]) given intravenously. Interpretation Summary 1. The left ventricle is normal in size. The visual ejection fraction is65- 70%. 2. The right ventricle is normal in structure, function and size. 3. There is moderate mitral stenosis. Mean 9mmHg @ HR 83. Severecalcification of the posterior annulus with restricted posterior leaflet motion. 4. There is mild to moderate (1-2+) mitral regurgitation. Echo 04/2024 showed EF 65-70%, MS with mean 8mmHg, 1+ MR. Left Ventricle The left ventricle is normal in size. There is mild concentric left ventricular hypertrophy. The visual ejection fraction is 65-70%.Diastolic function not assessed due to significant mitral annular calcification.Normal left ventricular wall motion. Right Ventricle The right ventricle is normal in structure, function and size. Atria The left atrium is moderate to severely dilated. The right atrium ismildly dilated. There is no atrial shunt seen. Mitral Valve There is mild to moderate (1-2+) mitral regurgitation. There is moderate mitral stenosis. Severe calcification of the posterior annulus withrestricted posterior leaflet motion. Tricuspid Valve There is mild (1+) tricuspid regurgitation. Aortic Valve The aortic valve is normal in structure and function. Pulmonic Valve The pulmonic valve is normal in structure and function. Vessels Normal ascending, transverse (arch), and descending aorta. The inferiorvena cava was normal in size with preserved [...] Ht(cm/m): 1.9 Ao root diam index BSA (cm/m2): 1.7 Asc Ao diam index BSA (cm/m2): [...] max P.2 mmHg LV V1 max: 124.0 cm/sec LV V1 VTI: 26.1 cm SV(LVOT): 83.9 ml SI(LVOT): 46.4 ml/m2 TR max ivonne: 215.6 cm/sec TR max P.6 mmHg Report approved by: Jeff Wilder MD on 09/01/2024 09:17 AM us Korin Sebastian MD CV ECHO ORDERABLES Edited Resul t - Final * CT Chest Pulmonary Embolism w Contrast (09/01/2024 2:23 AM CDT) Anatomical Region Laterality Modality Chest, SUBRAD CT BODY, UMP CT CHEST Computed Tomography 09/01/2024 2:23 AM CDT Impressions 09/01/2024 2:42 AM CDT IMPRESSION: 1. No pulmonary embolism. 2. Small bilateral pleural effusions with patchy groundglass density in the lungs and mild bronchial wall thickening. The appearance is similar to the prior exam and may represent mild pulmonary edema. 3. Unchanged mediastinal and right hilar lymphadenopathy. Narrative 09/01/2024 2:42 AM CDT EXAM: CT CHEST PULMONARY EMBOLISM W CONTRAST LOCATION: [facility] DATE: 09/01/2024 INDICATION: hypoxia, elevated ddimer, Dyspnea COMPARISON: CT scan of chest 09/14/2024 and November 28, 2023. TECHNIQUE: CT chest pulmonary angiogram during arterial phase injection of IV contrast. Multiplanar reformats and MIP reconstructions were performed. Dose reduction techniques were used. CONTRAST: 59mL Isovue 370 FINDINGS: ANGIOGRAM CHEST: Pulmonary arteries are normal caliber and negative for pulmonary emboli. Thoracic aorta is negative for [...] third spacing. Degenerative change in the spine. Procedure Note Kwesi Lewis MD - 09/01/2024 EXAM: CT CHEST PULMONARY EMBOLISM W CONTRAST LOCATION: [facility] DATE: 09/01/2024 INDICATION: hypoxia, elevated ddimer, Dyspnea COMPARISON: CT scan of chest 09/14/2024 and November 28, 2023. TECHNIQUE: CT chest pulmonary angiogram during arterial phase injection ofIV contrast. Multiplanar reformats and MIP reconstructions were performed.Dose reduction techniques were used. CONTRAST: 59mL Isovue 370 FINDINGS: ANGIOGRAM CHEST: Pulmonary arteries are normal caliber and negative forpulmonary emboli. Thoracic aorta is negative for dissection. No CTevidence of right heart strain. LUNGS AND PLEURA: Small bilateral pleural effusions with patchygroundglass density most pronounced in the lower lobes. There is mildsmooth bronchial wall thickening. MEDIASTINUM/AXILLAE: Extensive mitral annulus calcification. Unchangedenlarged mediastinal and right hilar lymph nodes. CORONARY ARTERY CALCIFICATION: Severe. UPPER ABDOMEN: Normal. MUSCULOSKELETAL: Mild body wall third spacing. Degenerative change in thespine. IMPRESSION: 1. No pulmonary embolism. 2. Small bilateral pleural effusions with patchy groundglass density inthe lungs and mild bronchial wall thickening. The appearance is similar tothe prior exam and may represent mild pulmonary edema. 3. Unchanged mediastinal and right hilar lymphadenopathy. us Ramez Gupta MD IMG CT ORDERABLES Final Result * (ABNORMAL) Nt probnp inpatient (BNP) (09/01/2024 12:54 AM CDT) N terminal Pro BNP Inpatient 1,804(H) 0 - 1,800 pg/mL 09/01/2024 1:34 AM CDT LABORATORY Comment: Reference range shown and results flagged as abnormal are suggested inpatient cut points for confirming diagnosis if CHF in an acute setting. Establishing a baseline value for each individual patient is useful for follow-up. An inpatient or emergency department NT-proPBNP <300 pg/mL effectively rules out acute CHF, with 99% negative predictive value. The outpatient non-acute reference range for ruling out CHF is: 0-125 pg/mL (age 18 to less than 75) 0-450 pg/mL (age 75 yrs and older) Blood BLOOD SPECIMEN / Unknown Venipuncture / Unknown 09/01/2024 12:54 AM CDT 09/01/2024 1:00 AM CDT Ramez Gupta MD LAB - BLOOD ORDER GRISELDA Final Result [facility] [address] Lab (1st floor, no room number) [place] [phone] [place] [address] * Lactic acid whole blood (09/01/2024 12:54 AM CDT) Lactic Acid 1.1 0.7 - 2.0 mmol/L 09/01/2024 1:04 AM CDT LABORATORY Blood BLOOD SPECIMEN / Unknown Venipuncture / Unknown 09/01/2024 12:54 AM CDT 09/01/2024 1:00 AM CDT Ramez Gupta MD LAB - BLOOD ORDER GRISELDA Final Result [facility] [address] Lab (1st floor, no room number) [place] [id number] * (ABNORMAL) D dimer quantitative (09/01/2024 12:54 AM CDT) Pathologist [facility] D-Dimer Quantitative 1.48(H) 0.00 - 0.50 ug/mL FEU 09/01/2024 1:31 AM CDT LABORATORY Blood BLOOD SPECIMEN / Unknown Venipuncture / Unknown 09/01/2024 12:54 AM CDT 09/01/2024 1:01 AM CDT Narrative LABORATORY - 09/01/2024 1:31 AM CDT This D-dimer assay is intended for use in conjunction with a clinical pretest probability assessment model to exclude pulmonary embolism (PE) and deep venous thrombosis (DVT) in outpatients suspected of PE or DVT. The cut-off value is 0.50 ug/mL FEU. For patients 50 years of age or older, the application of age-adjusted cut-off values for D-Dimer may increase the specificity without significant effect on sensitivity. The literature suggested calculation age adjusted cut-off in ug/L = age in years x 10 ug/L. The results in this laboratory are reported as ug/mL rather than ug/L. The calculation for age adjusted cut off in ug/mL= age in years x 0.01 ug/mL. For example, the cut off for a 76 year old male is 78 x 0.01 ug/mL = 0.76 ug/mL (760 ug/L). M Ramez et al. Age adjusted D-dimer cut-off levels to rule out pulmonary embolism: The ADJUST-PE Study. JOSE 2014;311:2502-4355.; HJ Margarito et al. Diagnostic accuracy of conventional or age adjusted D-dimer cutoff values in older patients with suspected venous thromboembolism. Systemic review and meta-analysis. BMJ 2013:346:f2492. us Ramez Gupta MD LAB - BLOOD ORDER GRISELDA Final Result [facility] Acute Care Lab [address] [facility] Lab (1st floor, no room number) [place] [address], [facility] * Phosphorus (07/19/2024 7:24 AM RADIOLOGICAL HEALTH SPECIALIST) [facility] Phosphorus 4.0 2.5 - 4.5 mg/dL 07/19/2024 8:51 AM RADIOLOGICAL HEALTH SPECIALIST LABORATORY Blood BLOOD SPECIMEN / Unknown Venipuncture / Unknown 07/19/2024 7:24 AM RADIOLOGICAL HEALTH SPECIALIST 07/19/2024 7:40 AM RADIOLOGICAL HEALTH SPECIALIST James Brower MD LAB - BLOOD ORDERABLES Final Res ult Performing Organization Address [facility] de Phone Number [facility] [address] Lab (1st floor, no room number) [address] * (ABNORMAL) Hemoglobin A1c (07/17/2024 6:59 AM RADIOLOGICAL HEALTH SPECIALIST) [facility] Estimated Average Glucose 163(H) <117 mg/dL 07/17/2024 3:35 PM RADIOLOGICAL HEALTH SPECIALIST [facility]AT[facility] Hemoglobin A1C 7.3(H) <5.7 % 07/17/2024 3:35 PM RADIOLOGICAL HEALTH SPECIALIST [facility]AT[facility] Comment: Normal <5.7% Prediabetes 5.7-6.4% Diabetes 6.5% or higher Note: Adopted from ADA consensus guidelines. Blood STRUCTURE OF RIGHT HAND / Unknown Venipuncture / Unknown 07/17/2024 6:59 AM RADIOLOGICAL HEALTH SPECIALIST 07/17/2024 7:14 AM RADIOLOGICAL HEALTH SPECIALIST us James Brower MD LAB - BLOOD ORDERABLES Final Res ult Performing Organization Address [facility] de Phone Number [facility] [address] [facility] Lab (1st floor, no room number) [address] * (ABNORMAL) Albumin Random Urine Quantitative with Creat Ratio (06/28/2024 11:55 AM RADIOLOGICAL HEALTH SPECIALIST) [facility] Creatinine Urine mg/dL 163.8 mg/dL 06/29/2024 12:57 PM RADIOLOGICAL HEALTH SPECIALIST [facility] LAB[facility]AT[facility] Comment:The reference ranges have not been established in urine creatinine. The results should be integrated into the clinical context for interpretation. Albumin Urine mg/L 1,099.1 mg/L 2024 12:57 PM RADIOLOGICAL HEALTH SPECIALIST [facility] Comment:The reference ranges have not been established in urine albumin. The results should be integrated into the clinical context for interpretation. Albumin Urine mg/g Cr 671.00(H) 0.00 - 25.00 mg/g Cr 06/29/2024 12:57 PM RADIOLOGICAL HEALTH SPECIALIST LABORATORY Comment: Microalbuminuria is defined as an albumin:creatinine ratio of 17 to 299 for males and 25 to 299 for females. A ratio of albumin:creatinine of 300 or higher is indicative of overt proteinuria. Due to biologic variability, positive results should be confirmed by a second, first-morning random or 24-hour timed urine specimen. If there is discrepancy, a third specimen is recommended. When 2 out of 3 results are in the microalbuminuria range, this is evidence for incipient nephropathy and warrants increased efforts at glucose control, blood pressure control, and institution of therapy with an teesbvrmzmt-zdqmpzgljk-ihjygd (INDERJIT) inhibitor (if the patient can tolerate it). Urine MID-STREAM URINE SPECIMEN / Unknown Non-blood Collection / Unknown 06/28/2024 11:55 AM RADIOLOGICAL HEALTH SPECIALIST 06/28/2024 12:08 PM RADIOLOGICAL HEALTH SPECIALIST us Virgie Lobato PA-C LAB - URINE ORDERABLES Fi nal Result LABORATORY [facility] Acute Care Lab [address] [facility] Lab (Main level, no room number) [place] [address] * (ABNORMAL) Parathyroid Hormone Intact (06/28/2024 9:38 AM RADIOLOGICAL HEALTH SPECIALIST) Parathyroid Hormone Intact 99(H) 15 - 65 pg/mL 06/29/2024 10:22 AM [facility] LABORATORY Blood BLOOD SPECIMEN / Unknown Venipuncture / Unknown 06/28/2024 9:38 AM RADIOLOGICAL HEALTH SPECIALIST 06/28/2024 9:38 AM RADIOLOGICAL HEALTH SPECIALIST Narrative LABORATORY - 06/29/2024 10:22 AM RADIOLOGICAL HEALTH SPECIALIST This result was obtained with the [employer] PTH STAT assay. This reference range differs from PTH assays used in other [facility] laboratories. Virgie Lobato PA-C LAB - BLOOD ORDERABLES Fi nal Result LABORATORY [facility] Acute Care Lab [address] 1st floor, [address] [place] [address], [facility] [phone] * Mammogram - HIM Scan (06/12/2024) Anatomical Region Laterality Modality Other Narrative 06/12/2024 See encounter dated - 08/11/2024 us Patient Reported IMG MAMMOGRAPHY ORDERABLES Lucie l Result * TSH with free T4 reflex (12/01/2023 8:06 AM CDT) TSH 3.31 0.30 - 4.20 uIU/mL 12/06/2023 11:13 AM CDT LABORATORY Blood STRUCTURE OF RIGHT UPPER LIMB / Unknown Venipuncture / Unknown 12/01/2023 8:06 AM CDT 12/01/2023 8:13 AM CDT Marjorie Schultz PA-C LAB - BLOOD ORDERABLES Fin al Result LABORATORY [facility] Lab [address] Lab (1st floor, no room number) [place] [address] * COLOGUARD([employer]) (12/01/2020) COLOGUARD-ABST RACT Negative [facility] 12/01/2020 us Marjorie Schultz PA-C LABORATORY Final Resu lt [employer] [facility] [address]via [address]o [place], [place] [address] [phone] * DEXA - HIM SCAN (06/12/2020 12:00 AM RADIOLOGICAL HEALTH SPECIALIST) Anatomical Region Laterality Modality Other 06/12/2020 us Provider Outside IMG DEXA ORDERABLES Final Resul t * Stool: occult blood (06/30/2019 3:17 PM RADIOLOGICAL HEALTH SPECIALIST) Occult Blood Negative NEG^Negati ve 06/30/2019 3:23 PM RADIOLOGICAL HEALTH SPECIALIST [facility] Stool specimen (specimen) 06/30/2019 3:17 PM RADIOLOGICAL HEALTH SPECIALIST 06/30/2019 3:20 PM RADIOLOGICAL HEALTH SPECIALIST us Cal Sosa MD LAB - STOOLS ORDERABLES Edite d Result - Final [facility] [address] [place] [id number], [facility] [phone] * COLONOSCOPY,DIAGNOSTIC (10/26/2003) us Rogelio Camacho MD PROCEDURES Final Result from Last 3 Months or Most Recently Relevant to Health Maintenance Additional Health Concerns Infection Onset Date 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 07/05/2024 08/24/2024 Insurance [employer] MEDICARE ADVANTAGE [employer] MED[employer]ARE ADVANTAGE * Guarantor: [employer] Account Type Relation to Patient Date of Phone Billing Address Medication Therapy Self 1940 [id number] [place] [address] [employer]VANTAGE Advance Directives For more information, please contact: [phone] * Full Code (Latest Code Status on File) Date Activated Date Inactivated Comments 09/04/2024 8:26 AM 09/21/2024 1:05 PM Question Answer Comments Code status determined by: Discussion with patie nt/ legal decision maker * Full Code Date Activated Date Inactivated Comments 09/01/2024 3:27 AM 09/04/2024 8:26 AM All basic an d advanced life-sustaining interventions are performed as appropriate Question Answer Comments Code status determined by: Discussion with patie nt/ legal decision maker * Full Code Date Activated Date Inactivated Comments 07/17/2024 3:08 AM 07/19/2024 1:40 PM All basic an d advanced life-sustaining interventions are performed as appropriate Question Answer Comments Code status determined by: Discussion with patie nt/ legal decision maker * Full Code Date Activated Date Inactivated Comments 04/29/2024 12:31 AM 05/01/2024 3:48 PM All basic and advanced life-sustaining interventions are performed as appropriate Question Answer Comments Code status determined by: Discussion with patie nt/ legal decision maker * Full Code Date Activated Date Inactivated Comments 2024 4:10 PM 04/26/2024 1:36 PM All basic and advanced life-sustaining interventions are performed as appropriate Question Answer Comments Code status determined by: Discussion with patie nt/ legal decision maker Care Teams Technology Applications Engineer Relationship Specialty [place] [address] [place] [address] PCP - General Family Medicine 04/11/[address] [place] [address] Senior Commercial Loan Officer Dietitian, Registered 11/03/17 Federico Linda MD [address] [facility] [address] [place], [place] [phone] Assigned Heart and Vascular Provider 03/29/20 Jc Zavala MD MD OCOLOGY HEMATOLOGY [facility] [address] [place], [place] [address] Hematology & Oncology 08/07/21 Cristofer Michelle MD [address] [facility] [address] [place], [place] [address] Gastroenterology 07/28/22 Vivien Blanchard MD [address] [place] [address] [address] [place] [address] Urology 07/28/22 Teetee Velazquez, PA-C [address] [place] [address] Physician Microfilm Clerk 05/11/23 Teetee Velazquez PA-C [address] [place] [address] [id number] Assigned Surgical Provider 07/01/23 [place] [address] [id number] Assigned Musculoskeletal Provider 08/20/23 Lanie Foster, RD, LD [address] [place], [place] [phone] Registered Dietitian Nutrition 05/15/24 [place] [address] [place] [address] Assigned PCP 05/29/24 Melonie Caro RPH [address] [place], [place] [address] Pharmacist Pharmacist 06/05/24 Federico Linda MD [address] [place] [address] [place] [id number] Cardiovascular Disease 06/13/24 Melonie Caro RPH [address] [place] [address] Assigned MTM Pharmacist 06/29/24 Virgie Lobato PA-C [address] [place] [address] [id number] Assigned Nephrology Provider 07/30/24 Barry Ybarra MD [address] [place] [address] 16142 Hospitalist Infectious Diseases 08/31/24 Barry Ybarra MD [address] [place] [address] 17924 Assigned Infectious Disease Provider 10/27/24
--- OUTSIDE RECORDS SUMMARY | 2024-11-12 17:33 | XMS_ITS | Patient Health Record ---
Author Organization [facility] us Address [address] [facility] [address] [place] [address] Care Team Providers Care Side Sawyer Name Role Phone Unknown, Unknown Primary Care Provider Unavailab le Allergies Allergen (clinical drug ingredient) Drug/Non Drug Allergy documented on EMR Reaction Allergy Type Onset Date Status propranolol Propranolol HCl Unknown Drug Allergy Active Reason For Referral No Information Social History Tobacco Use: Social History Observation Description Date Details (start date - stop date) Never Smoker NA - NA Tobacco Use/Smoking Question Answer Notes You are a nonsmoker Tobacco use other than smoking: Question Answer Notes Are you an other tobacco user? No Problems Problem Type SNOMED Code ICD Code Onset Dates Problem Status W/U Status Risk Notes Problem 15877752 Generalized abdominal discomfort (R10.84) Active confirmed Plan Of Treatment No Information Insurance Providers Payer Name Payer Address Payer Phone Subscriber Number Group Number Insured Name Patient Relationship to Insured Coverage Start Date Coverage End Date [facility] [address] [address] [place] [address] [id number] TRAVIS STONE Self - patient is the insured Medical (General) History Medical History History ICD Code Hypertension I10 Diabetes E11.9 Cancer of breast 174.9
--- OUTSIDE RECORDS SUMMARY | 2024-11-12 17:33 | XMS_ITS | Encounter Summary ---
Author Organization [facility] Address [address] [place] [address] 26605 Care Team Providers Care Stator Tester Name Role Phone Myke Sheryl Bradley RD Unavailable [phone] Flynn Ruiz MD Primary Care Provider Sheryl Jaimes MD Primary Care Provider Unavailab Flynn Morris MD Unavailable [phone] [facility] Primary Care Provider No Ref-Primary, Physician Primary Care Provider Flynn Ruiz MD Unavailable [phone] Ruth Ann Munoz MD Primary Care Prov ider Ruth Ann Munoz MD Unavailable + lFynn Ruiz MD Primary Care Provider Ruth Ann [...] Unavailable Unavailable Jc Zavala MD Unavailable [phone] Barbi Manzo RN Unavailable Unavailable Erasto Root MD Unavailable Cristofer Michelle MD Unavailable [phone] Vivien Blanchard MD Unavailable [phone] Sapna Hernandez MD Unavailable Vivien Blanchard MD Unavailable [phone] Virgie Lobato PA-C Unavailable [phone] Teetee Velazquez PA-C Unavailable [phone] Teetee Velazquez PA-C Unavailable + [phone] Cora Shah RN Unavailable [phone] Brad Mayer DO Unavailable [phone] Mary Garcia MD Primary Care Provider Cristal Cooper RN Unavailable Shannon Rowland PA-C Unavailable [phone], LD Unavailabl e Mary Garcia MD Unavailable Melonie Caro [facility] Unavailable Federico Linda MD Unavailable [phone] Melonie Caro [facility] Unavailable [phone] Virgie Lobato PA-C Unavailable [phone] Barry Ybarra MD Unavailable [phone] Barry Ybarra MD Unavailable [phone] Encounter Details Date Type Department Care Team (Late st Contact Info) Description 05/18/2018 [facility] [id number] [place] [address] [address] [place] [address] Federico Linda MD [address] [facility] [address] [place] [address] Social History Tobacco Use Types Packs/Day Years Used Date Smoking Tobacco: Never Smokeless Tobacco: Never Alcohol Use Standard Drinks/Week Comments No 0 (1 standard drink = 0.6 oz pur e alcohol) Comments No Sex and Gender Information Value Date Recorded Sex Assigned at Female 07/18/2020 1:16 PM BOOTMAKER Legal Sex Female 3:23 AM BOOTMAKER Gender Identity Female 07/18/2020 1:16 PM BOOTMAKER Sexual Orientation Straight 07/18/2020 1: 16 PM BOOTMAKER 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 I haven't had any side effects 04/27/[address] Linda 1. Dyspnea on exertion ?? Slight improvement in symptoms with the increase in metoprolol to 50 mg twice daily. Will try augmenting her diuretic to help blood pressure and congestion to see if that also improves her dyspnea. ?? Change hydrochlorothiazide to 25 mg daily to Dyazide 37.5/25 and she will message us in a coupleof weeks to see if any improvement in symptoms. ?? Will route to Dr. Linda to update. MAKER documented in this encounter Plan of Treatment Upcoming Encounters Date Type Department Care Team (Late st Contact Info) Description 11/16/2024 1:00 PM CDT Allied Health/Nurse Visit [facility] Urology [address] [phone] Lucero Britt PA-C 500 [place], [place] [phone] 11/16/2024 2:45 PM CDT Office Visit [facility] Urology [address] [phone] Vivien Blanchard MD [address] [facility] 394 [place], [place] 6834[address] 11/20/2024 3:30 PM CDT Office Visit [facility] [address] [place] [phone] [place] [address] [place] [address] 11/22/2024 9:15 AM CDT Office Visit [facility] [address] [facility] [address] [place] [phone] Federico Linda MD 2655 [facility] [address] [place], [place] 93[address] 11/30/2024 10:[address] [facility] [address] [place] [phone] 12/06/2024 10:10 AM CDT Office Visit [facility] 6525 [facility] 200 [place] [phone] Virgie Lobato PANilesh [address] [place] [address] 12/28/2024 11:00 AM CDT Office Visit [facility] [address] [place] [phone] Barry Ybarra MD [address] [place] [address] 01/26/2025 11:30 AM CDT Office Visit [facility] [address] [place] [phone] [place] [phone] [place] [address] documented as of this encounter Visit Diagnoses Not on filedocumented in this encounter Additional Health Concerns Infection Onset Date Last Indicated Resolved Time Rule Out COVID-19 03/08/2021 03/08/2021 03/09/2021 1:42 AM CDT Rule Out C-difficile 03/10/2021 03/10/2021 5:50 PM CDT Rule Out COVID-19 2021 2021 04/25/2021 12:41 PM BOOTMAKER Rule Out COVID-19 06/14/2022 06/14/2022 06/14/2022 11:30 AM BOOTMAKER Rule Out COVID-19 07/03/2022 07/03/2022 07/04/2022 12:27 AM BOOTMAKER Rule Out COVID-19 04/01/2024 04/01/2024 04/01/2024 10:07 PM CDT ESBL 07/05/2024 08/24/2024 Rule Out COVID-19 07/16/2024 07/16/2024 07/16/2024 11:04 PM BOOTMAKER Rule Out COVID-19 09/01/2024 09/01/2024 09/01/2024 2:05 AM CDT Rule Out COVID-19 09/21/2024 09/21/2024 09/21/2024 3:25 PM CDT Assessment Noted Time PHQ-9 Depression Total Score: 4 01/22/20 18 7:23 AM CDT documented as of this encounter Care Teams Stator Tester Relationship Specialty Start Date End Date Flynn Ruiz MD [place] [address] [place] [address] PCP - General Family Practice 12/08/17 07/07/18 Sheryl Jaimes MD [place] [address] [place] [address] PCP - General Family Practice 07/08/18 08/02/18 Flynn Ruiz MD [address] [facility] [address] PCP - Assigned PCP 07/10/18 08/09/18 [facility] - [address] [address] PCP - General 08/03/18 08/04/18 No Ref-Primary, Physician PCP - General 08/05/18 08/30/18 Ruth Ann Munoz MD PCP - General Family Practice 08/31/18 04/13/19 Flynn Ruiz MD [place] [address] [employer] [address] [place], [place] [address] PCP - General Family Practice 04/14/19 05/18/20 Trina Carbajal PA-C [address] [facility] [address] [place] [address] PCP - General Family Medicine 05/19/20 04/10/24 [place] [address] [address] [place] [id number] PCP - General Family Medicine 04/11/[address] [place] [address] Marker Machine Dietitian, Registered 11/03/17 Flynn Ruiz MD [address] [place] [address] Assigned PCP 04/24/18 12/24/18 Ruth Ann Munoz MD [place] [address] [employer] [address] [place], [place] [address] Assigned PCP 12/25/18 04/22/19 Ruth Ann Munoz MD [place] [address] [employer] [address] [place], [place] [address] Assigned PCP 04/30/19 05/27/19 Flynn Ruiz MD [address] [place], [place] 422[address] Assigned PCP 04/23/19 04/29/19 Flynn Ruiz MD [address] [place] [address] Assigned PCP 05/28/19 07/22/19 Mari Funes, JERRY Personal Advocate & Liaison (PAL) 07/27/19 07/30/19 Ruth Ann Munoz MD [place] [address] [place] [address] Assigned PCP 07/23/19 08/12/19 Trina Carbajal PA-C [address] [place], [place] [address]195 Assigned PCP 08/13/19 07/27/20 Federico Linda MD [address] [place], [place] 293385 Assigned Heart and Vascular Provider 03/29/20 Connie Blackwell MD [address] [place], [place] 756400 Assigned Endocrinology Provider 07/14/20 12/19/20 Ruth Ann Munoz MD [place] [address] [place] [address] Assigned PCP 07/28/20 08/25/20 Carlos Livingston MD NO INFO AVAILABLE Assigned PCP 08/26/20 08/31/20 Trina Carbajal PA-C [address] [place], [place] 9[address]35 Assigned PCP 09/01/20 12/07/20 Carlos Livingston MD NO INFO AVAILABLE Assigned Endocrinology Provider 12/20/20 12/18/22 Carlos Livingston MD NO INFO AVAILABLE Assigned PCP 12/08/20 12/19/20 Trina Carbajal, PA-C [address] [place] [address] Assigned PCP 12/20/20 04/28/24 Mari Funes, JERRY Personal Advocate & Liaison (PAL) Nurse 01/24/21 06/12/21 Jc Zavala MD [place] [facility] [place] [address] [place] [address] Hematology & Oncology 08/07/21 Barbi Manzo, JERRY Personal Advocate & Liaison (PAL) Family Medicine 12/24/21 07/08/23 [place] [address] [address] [place] [address] Assigned Musculoskeletal Provider 04/04/22 08/19/23 Cristofer Michelle MD 516 [facility] [address] [place], [place] 178[address] Gastroenterology 07/28/22 Vivien Blanchard MD 420 [facility] 394 [place] [address] Urology 07/28/22 Sapna Hernandez MD [address] [facility] 394 [place], [place] 154065 Assigned Nephrology Provider 07/11/22 09/25/22 Vivien Blanchard MD [address] 294525 Assigned Surgical Provider 07/25/22 06/30/23 Virgie Lobato PA-C [address] [place] [address] 319875 Assigned Nephrology Provider 09/26/22 03/28/24 Teetee Velazquez PA-C [address] [place] [address] 690605 Physician Support Worker 05/11/23 Teetee Velazquez PA-C [address] [place] [address] Assigned Surgical Provider 07/01/23 Cora Shah RN Personal Advocate & Liaison (PAL) Nurse 07/09/23 09/29/23 [place] [address] [address] [address] Assigned Musculoskeletal Provider 08/20/23 Cristal Cooper, RN Lead Rock Wool Insulator Primary Care - CC 04/27/2404/08 Shannon Rowland PA-C [address] [place] [phone] Assigned PCP 04/29/24 05/28/24 Lanie Foster, RD, LD [address] [address] Registered Dietitian Nutrition 05/15/24 [place] [address] [place] [address] Assigned PCP 05/29/24 Melonie Caro [facility] [address] [place] [address] Pharmacist Pharmacist 06/05/24 Federico Linda MD [address] Laur[address] [facility] [address] [place] [address] Cardiovascular Disease 06/13/24 Melonie Caro [facility] [address] [place] [address] Assigned MTM Pharmacist 06/29/24 Virgie Lobato, PA-C [address] [place] [address] 060395 Assigned Nephrology Provider 07/30/24 Barry Ybarra MD [address] [place] [address] Hospitalist Infectious Diseases 08/31/24 Barry Ybarra MD [address] [place] [address] (work) Assigned Infectious Disease Provider 10/27/24 documented as of this encounter
--- OUTSIDE RECORDS SUMMARY | 2024-11-12 17:33 | XMS_ITS | Encounter Summary ---
Author Organization [facility] Address [address] [place] [address] Care Team Providers Care Manager Commodities Name Role Phone Sheryl Stringer Kirk [place] Unavailable [phone] Trina Carbajal PA-C Unavailable [phone] Federico Linda MD Unavailable [phone] Trina Carbajal PA-C Primary Care Provider [phone] Connie Blackwell MD Unavailable [phone] Ruth Ann Munoz MD Unavailable + Carlos Livingston MD Unavailable Jelena vailable Trina Carbajal PA-C Unavailable [phone] Carlos Livingston MD Unavailable Jelena vailable Carlos Livingston MD Unavailable Jelena vailable Trina Carbajal PA-C Unavailable [phone] Mari Funes RN Unavailable Unavailable Jc Zavala MD Unavailable [phone] Barbi Manzo RN Unavailable Unavailable Erasto Root MD Unavailable Cristofer Michelle MD Unavailable [phone] Vivien Blanchard MD Unavailable [phone] Sapna Hernandez MD Unavailable Vivien Blanchard MD Unavailable [phone] Virgie Lobato-C Unavailable [phone] Teetee Velazquez PA-C Unavailable [phone] Teetee Velazquez PA-C Unavailable [phone] Cora Shah RN Unavailable Brad Mayer DO Unavailable [phone] Mary Garcia MD Primary Care Provider Cristal Cooper RN Unavailable Shannon Rowland PA-C Unavailable [phone], LD Unavailabl e Mary Garcia MD Unavailable Melonie Caro [facility] Unavailable Federico Linda MD Unavailable [phone] Melonie Caro [facility] Unavailable Virgie viramontes-C Unavailable [phone] aBrry Ybarra MD Unavailable [phone] Barry Ybarra MD Unavailable [phone] Reason for Visit * Reason Onset Date Comments MyChart Communication 07/09/2020 COVID 19 V accine Encounter Details Date Type Department Care Team (Late st Contact Info) Description 07/09/[address] [address] Trina Carbajal PA-C [address] [facility] 200 [place], [place] 6[address] [employer]TI [employer]ent[employer] Communication (COVID 19 Vaccine) Social History Tobacco Use Types Packs/Day Years Used Date Smoking Tobacco: Never Smokeless Tobacco: Never Alcohol Use Standard Drinks/Week Comments No 0 (1 standard drink = 0.6 oz pur e alcohol) PHQ-2 Answer Date Recorded PHQ-2 Score 0 07/27/2019 Comments No Sex and Gender Information Value Date Recorded Sex Assigned at Female 07/18/2020 1:16 PM ALTERATIONS SUPERVISOR Legal Sex Female 3:23 AM ALTERATIONS SUPERVISOR Gender Identity Female 07/18/2020 1:16 PM ALTERATIONS SUPERVISOR Sexual Orientation Straight 07/18/2020 1: 16 PM ALTERATIONS SUPERVISOR 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 Not on file documented as of this encounter Miscellaneous Notes * Telephone Encounter - Bj Christine RN - 07/09/2020 4:01 PM CST Responded to patient via [employer] Bj Christine RN RATIONS SUPERVISOR documented in this encounter Plan of Treatment Upcoming Encounters Date Type Department Care Team (Late st Contact Info) Description 11/16/2024 1:00 PM CDT Allied Health/Nurse Visit [facility] Urology [address] [address] Lucero Britt PA-C 500 [place], [place] 1559[address] 11/16/2024 2:45 PM CDT Office Visit [facility] Urology [address] [address] Vivien Blanchard MD 420 [facility] 394 [place], [place] [address]88[address] 11/20/2024 3:30 PM CDT Office Visit [facility] [address] [place] [phone] [place] [address] [place] [address] 11/22/2024 9:15 AM CDT Office Visit [facility] Heart [facility] [address] [facility] [address] [place] [phone] Federico Linda MD 6405 [facility] [address] [place] [address] 11/30/2024 10:30 AM CDT Lab [facility] [address] [place] [phone] 12/06/2024 10:10 AM CDT Office Visit [facility] 6525 [facility] 200 [place] [phone] Virgie Lobato, PA-C 909 [place] [address] 12/28/2024 11:00 AM CDT Office Visit [facility] [address] [place] [phone] Barry Ybarra MD [address] [place] [address] 01/26/2025 11:30 AM CDT Office Visit [facility] [address] [place] [phone] [place] [address] [place] [address] documented as of this encounter Goals Goal Patient Goal Type Associated Problems Recent Progress Patient-Stated? Author Problem Solving General On track( 019 9:24 AM ALTERATIONS SUPERVISOR) Yes Sheryl Stringer RD Note: My [...] Out COVID-19 2021 2021 04/25/2021 12:41 PM ALTERATIONS SUPERVISOR Rule Out COVID-19 06/14/2022 06/14/2022 06/14/2022 11:30 AM ALTERATIONS SUPERVISOR Rule Out COVID-19 07/03/2022 07/03/2022 07/04/2022 12:27 AM ALTERATIONS SUPERVISOR Rule Out COVID-19 04/01/2024 04/01/2024 04/01/2024 10:07 PM CDT ESBL 07/05/2024 08/24/2024 Rule Out COVID-19 07/16/2024 07/16/2024 07/16/2024 11:04 PM ALTERATIONS SUPERVISOR Rule Out COVID-19 09/01/2024 09/01/2024 09/01/2024 2:05 AM CDT Rule Out COVID-19 09/21/2024 09/21/2024 09/21/2024 3:25 PM CDT Assessment Noted Time PHQ-9 Depression Total Score: 6 07/28/19 20 7:04 AM ALTERATIONS SUPERVISOR documented as of this encounter Care Teams Manager Commodities Relationship Specialty Start Date End Date Trina Carbajal PA-C [address] [facility] [address] [place] [address] PCP - General Family Medicine 05/19/20 04/10/24 [place] [address] [place] [address] PCP - General Family Medicine 04/11/[address] [place] [address] Energy Conservation Representative Dietitian, Registered 11/03/17 Trina Carbajal PA-C [address] [place] [address] Assigned PCP 08/13/19 07/27/20 Federico Linda MD [address] [place] [address] Assigned Heart and Vascular Provider 03/29/20 Connie Blackwell MD [address] [place] [address] Assigned Endocrinology Provider 07/14/20 12/19/20 Ruth Ann Munoz MD [place] [address] [place] [address] Assigned PCP 07/28/20 08/25/20 Carlos Livingston MD NO INFO AVAILABLE Assigned PCP 08/26/20 08/31/20 Trina Carbajal PA-C [address] [place] [address] Assigned PCP 09/01/20 12/07/20 Carlos Livingston MD NO INFO AVAILABLE Assigned Endocrinology Provider 12/20/20 12/18/22 Carlos Livingston MD NO INFO AVAILABLE Assigned PCP 12/08/20 12/19/20 Trina Carbajal, PA-C [address] [facility] [address] [place] [address] Assigned PCP 12/20/20 04/28/24 Mari Funes, JERRY Personal Advocate & Liaison (PAL) Nurse 01/24/21 06/12/21 Jc Zavala MD [place] [facility] [place] [address] [facility] 100 [place], [place] [address] Hematology & Oncology 08/07/21 Barbi Manzo RN Personal Advocate & Liaison (PAL) Family Medicine 12/24/21 07/08/23 [place] [address] [address] [place] [address] Assigned Musculoskeletal Provider 04/04/22 08/19/23 Cristofer Michelle MD [address] [place] [address] 1[address] [place], [place] [address] Gastroenterology 07/28/22 Vivien Blanchard MD [address] [place] [address] 394 [place], [place] 0[address] Urology 07/28/22 Sapna Hernandez MD [address] 341025 Assigned Nephrology Provider 07/11/22 09/25/22 Vivien Blanchard MD [address] [place] [address] 394 [place], [place] 9786[address] Assigned Surgical Provider 07/25/22 06/30/23 Virgie Lobato PA-C [address] [place] [address] Assigned Nephrology Provider 09/26/22 03/28/24 Teetee Velazquez PA-C [address] [place] [address] Physician Tugboat Engineer 05/11/23 Teetee Velazquez PA-C [address] [place] [address] Assigned Surgical Provider 07/01/23 Cora Shah, JERRY Personal Advocate & Liaison (PAL) Nurse 07/09/23 09/29/23 [place] [address] 744797 Assigned Musculoskeletal Provider 08/20/23 Cristal Cooper, RN Lead Biological Plant Operator Primary Care - CC 04/27/2404/08 Shannon Rowland PA-C [address] [place] [phone] Assigned PCP 04/29/24 05/28/24 Lanie Foster, RD, LD [address] [place] 316215 Registered Dietitian Nutrition 05/15/24 [place] [address] [place] [address] Assigned PCP 05/29/24 Melonie Caro [facility] [address] [place] [place], [place] [address] Pharmacist Pharmacist 06/05/24 Federico Linda MD [address] [facility] [address] [place], [place] 4203[address] Cardiovascular Disease 06/13/24 Melonie Caro [facility] [address] [place] [place], [place] 577[address] Assigned MTM Pharmacist 06/29/24 Virgie Lobato, PAAnthonyC [address] [place] [address] 947645 Assigned Nephrology Provider 07/30/24 Barry Ybarra MD [address] [place] [address] Hospitalist Infectious Diseases 08/31/24 Barry Ybarra MD [address] [place] [address] Assigned Infectious Disease Provider 10/27/24 documented as of this encounter
--- OUTSIDE RECORDS SUMMARY | 2024-11-12 17:33 | XMS_ITS | Encounter Summary ---
Author Organization [facility] Address [address] [place] [address] Care Team Providers Care Airline Mechanic Name Role Phone Flynn Ruiz MD Primary Care Provider [phone] Ref-Primary, Physician Primary Care Provider Sheryl Stringer RD Unavailable [phone] Flynn Ruiz MD Primary Care Provider + [phone] Sheryl Jaimes MD Primary Care Provider Unavailab Flynn Morris MD Unavailable [phone] [facility] Primary Care Provider No Ref-Primary, Physician Primary Care Provider Flynn Ruiz MD Unavailable [phone] Ruth Ann Munoz MD Primary Care Prov ider Ruth Ann Munoz MD Unavailable + Flynn Ruiz MD Primary Care Provider [phone] PhiladelphiaRuth Ann [place]ogg MD Unavailable + Flynn Ruiz MD Unavailable [phone] Flynn Ruiz MD Unavailable [phone] Mari Funes RN Unavailable Unavailable EmmaRuth Ann Holder MD Unavailable + Trina Carbajal-C Unavailable +[phone] Federico Linda MD Unavailable [phone] Trina Carbajal PA-C Primary Care Provider [phone] Connie Blackwell MD Unavailable [phone] [facility] MD Unavailable + Carlos Livingston MD Unavailable Jelena vailable Trina Carbajal PA-C Unavailable [phone] Carlos Livingston MD Unavailable Jelena vailable Carlos Livingston MD Unavailable Jelena vailable Trina Carbajal PA-C Unavailable [phone] Mari Funes RN Unavailable Unavailable Jc Zavala MD Unavailable [phone] Barbi Manzo RN Unavailable Unavailable Erasto Root MD Unavailable Cristofer Michelle MD Unavailable [phone] Vivien Blanchard MD Unavailable + [phone] Sapna Hernandez MD Unavailable Vivien Blanchard MD Unavailable + [phone] Virgie Lobato PA-C Unavailable [phone] Teetee Velazquez PA-C Unavailable + [phone] Teetee Velazquez PA-C Unavailable + [phone] Cora Shah RN Unavailable [phone] Brad Mayer Unavailable [phone] Mary Garcia MD Primary Care Provider [phone] Cristal Cooper RN Unavailable Shannon Rowland PA-C Unavailable [phone], LD Unavailabl e Mary Garcia MD Unavailable Liborio Carotlin [facility] Unavailable Federico Linda MD Unavailable Liborio Carotlin [facility] Unavailable Virgie Lobato PA-C Unavailable Barry Ybarra MD Unavailable Barry Ybarra MD Unavailable [phone] Encounter Details Date Type Department Care Team (Late st Contact Info) Description 09/27/2017 [facility] Medical Advice [facility] [address] [place] [address] [place] [address] Flynn Ruiz MD [address] [place], [place] [id number] 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 (Primary Dx) Social History Tobacco Use Types Packs/Day Years Used Date Smoking Tobacco: Never Smokeless Tobacco: Never Alcohol Use Standard Drinks/Week Comments No 0 (1 standard drink = 0.6 oz pur e alcohol) Comments No Sex and Gender Information Value Date Recorded Sex Assigned at Female 07/18/2020 1:16 PM MONKEY TRAINER Legal Sex Female 3:23 AM MONKEY TRAINER Gender Identity Female 07/18/2020 1:16 PM MONKEY TRAINER Sexual Orientation Straight 07/18/2020 1: 16 PM MONKEY TRAINER 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 Not on file Not on file documented as of this encounter Plan of Treatment Upcoming Encounters Date Type Department Care Team (Late st Contact Info) Description 11/16/2024 1:00 PM CDT Allied Health/Nurse Visit [facility] Urology [facility] [address] [place] [phone] Lucero Britt PA-C 500 [place], [place] 376695 11/16/2024 2:45 PM CDT Office Visit [facility] Urology [facility] [address] [place] [phone] Vivien Blanchard MD [address] [facility] 394 [place], [place] [phone] 11/20/2024 3:30 PM CDT Office Visit [facility] [address] [place] [address] [place] [address] [place] [address] 11/22/2024 9:15 AM CDT Office Visit [facility] Heart [facility] [address] [facility] [address] [place] [phone] Federico Linda MD [address] [facility] [address] [place], [place] [address] 11/30/2024 10:30 AM CDT Lab [facility] [address] [place] [phone] 12/06/2024 10:10 AM CDT Office Visit [facility] Specialty [facility] [address] [facility] [address] [place] [phone] Virgie Lobato PA-C [address] [place] [address] 693585 12/28/2024 11:00 AM CDT Office Visit 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- Primary documented in this encounter Additional Health Concerns Infection Onset Date Last Indicated Resolved Time Rule Out COVID-19 03/08/2021 03/08/2021 03/09/2021 1:42 AM CDT Rule Out C-difficile 03/10/2021 03/10/2021 5:50 PM CDT Rule Out COVID-19 2021 2021 04/25/2021 12:41 PM MONKEY TRAINER Rule Out COVID-19 06/14/2022 06/14/2022 06/14/2022 11:30 AM MONKEY TRAINER Rule Out COVID-19 07/03/2022 07/03/2022 07/04/2022 12:27 AM MONKEY TRAINER Rule Out COVID-19 04/01/2024 04/01/2024 04/01/2024 10:07 PM CDT ESBL 07/05/2024 08/24/2024 Rule Out COVID-19 07/16/2024 07/16/2024 07/16/2024 11:04 PM MONKEY TRAINER Rule Out COVID-19 09/01/2024 09/01/2024 09/01/2024 2:05 AM CDT Rule Out COVID-19 09/21/2024 09/21/2024 09/21/2024 3:25 PM CDT Assessment Noted Time PHQ-9 Depression Total Score: 3 09/18/19 7:37 AM CDT documented as of this encounter Care Teams Airline Mechanic Relationship Specialty Start Date End Date Flynn Ruiz MD PCP - General Family Practice 03/15/17 11/02/17 No Ref-Primary, Physician PCP - General 11/03/17 12/07/17 Flynn Ruiz MD PCP - General Family Practice 12/08/17 07/07/18 Sheryl Jaimes MD [address] [place] [address] PCP - General Family Practice 07/08/18 08/02/18 Flynn Ruiz MD [address] [place] [facility] [place] [address] PCP - Assigned PCP 07/10/18 08/09/18 [facility] [address] [place], [place] [phone] PCP - General 08/03/18 08/04/18 No Ref-Primary, Physician PCP - General 08/05/18 08/30/18 [place] [address] [place], [place] [phone] PCP - General Family Practice 08/31/18 04/13/19 Flynn Ruiz MD [facility] [address] [facility] ART [facility] [place] [address] PCP - General Family Practice 04/14/19 05/18/20 Trina Carbajal PA-C [address] [facility] [address] [place] [address] PCP - General Family Medicine 05/19/20 04/10/24 [place] [address] [place] [address] PCP - General Family Medicine 04/11/[address] [place] [address] Weight Loss Centre Manager Dietitian, Registered 11/03/17 Flynn Ruiz MD [address] [place] [address] Assigned PCP 04/24/18 12/24/18 Ruth Ann Munoz MD [place] [address] [place] [address] Assigned PCP 12/25/18 04/22/19 Ruth Ann Munoz MD [address] [address] [place] [address] Assigned PCP 04/30/19 05/27/19 Flynn Ruiz MD [address] [place] [address] Assigned PCP 04/23/19 04/29/19 Flynn Ruiz MD [address] [place] [address] Assigned PCP 05/28/19 07/22/19 Mari uFnes, JERRY Personal Advocate & Liaison (PAL) 07/27/19 07/30/19 Ruth Ann Munoz MD [place] [address] [place] [address] Assigned PCP 07/23/19 08/12/19 Trina Carbajal PA-C [address] [place], [place] [address] Assigned PCP 08/13/19 07/27/20 Federico Linda MD [address] [place], [place] [address] Assigned Heart and Vascular Provider 03/29/20 Connie Blackwell MD [address] [place], [place] 4722[address] Assigned Endocrinology Provider 07/14/20 12/19/20 Ruth Ann Munoz MD [place] [address] [place] [address] Assigned PCP 07/28/20 08/25/20 Carlos Livingston MD NO INFO AVAILABLE Assigned PCP 08/26/20 08/31/20 Trina Carbajal PA-C [address] [place], [place] [address] Assigned PCP 09/01/20 12/07/20 Carlos Livingston MD NO INFO AVAILABLE Assigned Endocrinology Provider 12/20/20 12/18/22 Carlos Livingston MD NO INFO AVAILABLE Assigned PCP 12/08/20 12/19/20 Trina Carbajal, PA-C [address] [facility] [address] [place] [address] Assigned PCP 12/20/20 04/28/24 Mari Fuens, JERRY Personal Advocate & Liaison (PAL) Nurse 01/24/21 06/12/21 Jc Zavala MD [place] [facility] [place] [address] [facility] 100 [place] [address] Hematology & Oncology 08/07/21 Barbi Manzo, JERRY Personal Advocate & Liaison (PAL) Family Medicine 12/24/21 07/08/23 [place] [address] [place] [address] Assigned Musculoskeletal Provider 04/04/22 08/19/23 Cristofer Michelle MD [address] [place], [place] [address]B [address]E [place], [place] [phone] Gastroenterology 07/28/22 Vivien Blanchard MD 420 [facility] 394 [place] [address] Urology 07/28/22 Sapna Hernandez MD [address] [facility] 394 [place] [address] Assigned Nephrology Provider 07/11/22 09/25/22 Vivien Blanchard MD [address] [place] [address] [phone] Assigned Surgical Provider 07/25/22 06/30/23 Virgie Lobato PA-C [address] [place] [address] 655805 Assigned Nephrology Provider 09/26/22 03/28/24 Teetee Velazquez PA-C [address] [place] [address] 301755 Physician Window Assembler 05/11/23 Teetee Velazquez PA-C [address] [place] [address] 541965 Assigned Surgical Provider 07/01/23 Cora Shah RN Personal Advocate & Liaison (PAL) Nurse 07/09/23 09/29/23 [place] [address] [address] Assigned Musculoskeletal Provider 08/20/23 Cristal Cooper, RN Lead Education Nurse Primary Care - CC 04/27/2404/08 Shannon Rowland PA-C [address] [place] [address] Assigned PCP 04/29/24 05/28/24 Lanie Foster, RD, LD [address] [place], [place] [address] Registered Dietitian Nutrition 05/15/24 [place] [address] [address] [address] Assigned PCP 05/29/24 Melonie Caro [facility] [address] [place] [address] Pharmacist Pharmacist 06/05/24 Federico Linda MD [address] [place] [address] Cardiovascular Disease 06/13/24 Melonie Caro [facility] [address] [place] [address] Assigned MTM Pharmacist 06/29/24 Virgie Lobato, PA-C [address] [place] [address] Assigned Nephrology Provider 07/30/24 Barry Ybarra MD [address] [place] [address] Hospitalist Infectious Diseases 08/31/24 Barry Ybarra MD [address] [place] [address] Assigned Infectious Disease Provider 10/27/24 documented as of this encounter
--- OUTSIDE RECORDS SUMMARY | 2024-11-12 17:34 | XMS_ITS | Encounter Summary ---
Author Organization [facility] Address [address] [place] [address] Care Team Providers Care Director Surface Transportation Name Role Phone Sheryl Stringer Kirk BENITEZ Unavailable [phone] Trina Carbajal PA-C Unavailable [phone] Federico Lidna MD Unavailable [phone] Trina Carbajal PA-C Primary Care Provider [phone] Connie Blackwell MD Unavailable [phone] Ruth Ann Munoz MD Unavailable + Carlos Livingston MD Unavailable Jelena vailable Trina Carbajal PA-C Unavailable [phone] Carlos Livingston MD Unavailable Jelena vailable Carlos Livingston MD Unavailable Jelena vailable Trina Carbajal PA-C Unavailable [phone] Mari Funes RN Unavailable Unavailable Jc Zavala MD Unavailable [phone] Barbi Manzo RN Unavailable Unavailable Erasto Root MD Unavailable Cristofer Michelle MD Unavailable [phone] Vivien Blanchard MD Unavailable [phone] Sapna Hernandez MD Unavailable Vivien Blanchard MD Unavailable [phone] Virgie Lobato-C Unavailable [phone] Teetee Velazquez PA-C Unavailable +[phone] Teetee Velazquez PA-C Unavailable +[phone] Cora Shah RN Unavailable Brad Mayer DO Unavailable [phone] Mary Garcia MD Primary Care Provider Cristal Cooper RN Unavailable Shannon Rowland PA-C Unavailable [phone], LD Unavailabl e Mary Garcia MD Unavailable Melonie Caro [facility] Unavailable Federico Linda MD Unavailable [phone] Melonie Caro [facility] Unavailable Virgie viramontes-C Unavailable +[phone] Barry Ybarra MD Unavailable [phone] Barry Ybarra MD Unavailable [phone] Encounter Details Date Type Department Care Team (Late st Contact Info) Description 06/27/2020 [facility] [address] [facility] [address] [place] [address] Mari Tee, ATA Social History Tobacco Use Types Packs/Day Years Used Date Smoking Tobacco: Never Smokeless Tobacco: Never Alcohol Use Standard Drinks/Week Comments No 0 (1 standard drink = 0.6 oz pur e alcohol) PHQ-2 Answer Date Recorded PHQ-2 Score 0 07/27/2019 Comments No Sex and Gender Information Value Date Recorded Sex Assigned at Female 07/18/2020 1:16 PM RECORD PRODUCER Legal Sex Female 3:23 AM RECORD PRODUCER Gender Identity Female 07/18/2020 1:16 PM RECORD PRODUCER Sexual Orientation Straight 07/18/2020 1: 16 PM RECORD PRODUCER 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 Message sent via [employer]. Gilma Tee CMA [facility] [address] PRODUCER documented in this encounter Plan of Treatment Upcoming Encounters Date Type Department Care Team (Late st Contact Info) Description 11/16/2024 1:00 PM CDT Allied Health/Nurse Visit [facility] Urology [address] [address] Lucero Britt PA-C 500 [place], [place] 49[address] 11/16/2024 2:45 PM CDT Office Visit [facility] Urology [address] [phone] Vivien Blanchard MD [address] [facility] 394 [place], [place] [address] 11/20/2024 3:30 PM CDT Office Visit [address] [address] Mary Garcia MD [address] [place] [address] 11/22/2024 9:15 AM CDT Office Visit [facility] Heart [facility] [address] [facility] [address] [place] [address] Federico Linda MD [address] [facility] [address] [place] [address] 11/30/2024 10:30 AM CDT Lab [facility] [address] [place] [address] 12/06/2024 10:10 AM CDT Office Visit [facility] 65[address] [facility] 200 [place] [address] Virgie Lobato, PA-C 909 [place] [address] 12/28/2024 11:00 AM CDT Office Visit [facility] [address] [facility] 200 [place] [phone] Barry Ybarra MD [address] [place] [address] 200 [place] [address] 01/26/2025 11:30 AM CDT Office Visit [facility] [address] [place] [address] [place] [address] [place] [address] documented as of this encounter Goals Goal Patient Goal Type Associated Problems Recent Progress Patient-Stated? Author Problem Solving General On track( 019 9:24 AM RECORD PRODUCER) Yes Sheryl Stringer, ELI Note: My Goal: [...] Out COVID-19 2021 2021 04/25/2021 12:41 PM RECORD PRODUCER Rule Out COVID-19 06/14/2022 06/14/2022 06/14/2022 11:30 AM RECORD PRODUCER Rule Out COVID-19 07/03/2022 07/03/2022 07/04/2022 12:27 AM RECORD PRODUCER Rule Out COVID-19 04/01/2024 04/01/2024 04/01/2024 10:07 PM CDT ESBL 07/05/2024 08/24/2024 Rule Out COVID-19 07/16/2024 07/16/2024 07/16/2024 11:04 PM RECORD PRODUCER Rule Out COVID-19 09/01/2024 09/01/2024 09/01/2024 2:05 AM CDT Rule Out COVID-19 09/21/2024 09/21/2024 09/21/2024 3:25 PM CDT Assessment Noted Time PHQ-9 Depression Total Score: 6 07/28/19 20 7:04 AM RECORD PRODUCER documented as of this encounter Care Teams Director Surface Transportation Relationship Specialty Start Date End Date Trina Carbajal PAAnthonyC [address] [facility] [address] [place] [address] PCP - General Family Medicine 05/19/20 04/10/24 [place] [address] [address] [place] [address] PCP - General Family Medicine 04/11/[address] [place] [address] Wiring Technician Dietitian, Registered 11/03/17 Trina Carbajal PA-C [address] [place] [address] Assigned PCP 08/13/19 07/27/20 Federico Linda MD [address] [place] [address] Assigned Heart and Vascular Provider 03/29/20 Connie Blackwell MD [address] [place] [address] Assigned Endocrinology Provider 07/14/20 12/19/20 Ruth Ann Munoz MD [place] [address] [place] [address] Assigned PCP 07/28/20 08/25/20 Carlos Livingston MD NO INFO AVAILABLE Assigned PCP 08/26/20 08/31/20 Trina Carbajal PA-C [address] [place] [address] Assigned PCP 09/01/20 12/07/20 Carlos Livingston MD NO INFO AVAILABLE Assigned Endocrinology Provider 12/20/20 12/18/22 Carlos Livingston MD NO INFO AVAILABLE Assigned PCP 12/08/20 12/19/20 Trina Carbajal PA-C [address] [facility] [address] [place] [address] Assigned PCP 12/20/20 04/28/24 Mari Funes, RN Personal Advocate & Liaison (PAL) Nurse 01/24/21 06/12/21 Jc Zavala MD [place] [facility] [address] [place] [address] Hematology & Oncology 08/07/21 Barbi Manzo, JERRY Personal Advocate & Liaison (PAL) Family Medicine 12/24/21 07/08/23 [place] [address] [place] [address] Assigned Musculoskeletal Provider 04/04/22 08/19/23 Cristofer Michelle MD [address] [place], [place] [address]B 1E [place], [place] [address] Gastroenterology 07/28/22 Vivien Blanchard MD [address] [place] [address] Urology 07/28/22 Sapna Hernandez MD [address] [place] [address] 394 [place], [place] 24[address] Assigned Nephrology Provider 07/11/22 09/25/22 Vivien Blanchard MD [address] [place] [address] 854055 Assigned Surgical Provider 07/25/22 06/30/23 Virgie Lobato PA-C [address] [place] [address] Assigned Nephrology Provider 09/26/22 03/28/24 Teetee Velazquez PA-C [address] [place] [address] 171335 Physician Card Grader 05/11/23 Teetee Velazquez PA-C [address] [place] [address] 480785 Assigned Surgical Provider 07/01/23 Cora Shah RN Personal Advocate & Liaison (PAL) Nurse 07/09/23 09/29/23 [place] [address] [address], [address] 788577 Assigned Musculoskeletal Provider 08/20/23 Cristal Cooper, JERRY Lead Cuff Turner Primary Care - CC 04/27/2404/08 Shannon Rowland PA-C [address] [place] [address] Assigned PCP 04/29/24 05/28/24 Lanie Foster, RD, LD [address] [place] [address] Registered Dietitian Nutrition 05/15/24 [place] [address] [place] [address] Assigned PCP 05/29/24 Melonie Caro R[facility] [address] [place] [address] Pharmacist Pharmacist 06/05/24 Federico Linda MD [address] [place] [address] Cardiovascular Disease 06/13/24 Melonie Caro [facility] [address] [place] [address] Assigned MTM Pharmacist 06/29/24 Virgie Lobato, PAAnthonyC [address] [place] [address] Assigned Nephrology Provider 07/30/24 Barry Ybarra MD [address] [place] [address] Hospitalist Infectious Diseases 08/31/24 Barry Ybarra MD [address] [place] [address] Assigned Infectious Disease Provider 10/27/24 documented as of this encounter
--- OUTSIDE RECORDS SUMMARY | 2024-11-12 17:34 | XMS_ITS | Encounter Summary ---
Author Organization [place] Address [address] [place] [address] Care Team Providers Care Miter Grinder Operator Name Role Phone Sheryl Stringer Kikr BENITEZ Unavailable [phone] Trina Carbajal PA-C Unavailable [phone] Federico Linda MD Unavailable [phone] Trina Carbajal PA-C Primary Care Provider [phone] Connie Blackwell MD Unavailable [phone] Ruth Ann Munoz MD Unavailable + Carlos Livingston MD Unavailable Jelena vailable Trina Carbajal PA-C Unavailable [phone] Carlos Livingston MD Unavailable Jelena vailable Carlos Livingston MD Unavailable Jelena vailable Trina Carbajal PA-C Unavailable [phone] Mari Funes RN Unavailable Unavailable Jc Zavala MD Unavailable [phone] Barbi Manzo RN Unavailable Unavailable Erasto Root MD Unavailable Cristofer Michelle MD Unavailable [phone] Vivien Blanchard MD Unavailable [phone] Sapna Hernandez MD Unavailable Vivien Blanchard MD Unavailable [phone] Virgie Lobato-C Unavailable [phone] Teetee Velazquez-C Unavailable +[phone] Teetee Velazquez PA-C Unavailable +[phone] Cora Shah RN Unavailable rBad Mayer DO Unavailable [phone] Mary Garcia MD Primary Care Provider Cristal Cooper RN Unavailable Shannon Rowland-C Unavailable [phone], LD Unavailabl e Mary Garcia MD Unavailable Melonie Caro [facility] Unavailable Federico Linda MD Unavailable [phone] Melonie Caro [facility] Unavailable Virgie viramontes-C Unavailable [phone] Barry Ybarra MD Unavailable +[phone] Barry Ybarra MD Unavailable [phone] Encounter Details Date Type Department Care Team (Late st Contact Info) Description 06/11/2020 [facility] [address] [address] Trina Carbajal, PA-C [address] [place] [address] Social History Tobacco Use Types Packs/Day Years Used Date Smoking Tobacco: Never Smokeless Tobacco: Never Alcohol Use Standard Drinks/Week Comments No 0 (1 standard drink = 0.6 oz pur e alcohol) PHQ-2 Answer Date Recorded PHQ-2 Score 0 07/27/2019 Comments No Sex and Gender Information Value Date Recorded Sex Assigned at Female 07/18/2020 1:16 PM SAMPLE BUILDER Legal Sex Female 3:23 AM SAMPLE BUILDER Gender Identity Female 07/18/2020 1:16 PM SAMPLE BUILDER Sexual Orientation Straight 07/18/2020 1: 16 PM SAMPLE BUILDER 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 No / Unsure 05/21/2020 2:36 PM SAMPLE BUILDER documented as of this encounter Plan of Treatment Upcoming Encounters Date Type Department Care Team (Late st Contact Info) Description 11/16/2024 1:00 PM CDT Allied Health/Nurse Visit [facility] Urology [address] [phone] Lucero Britt PA-C 500 [place], [place] [address] 11/16/2024 2:45 PM CDT Office Visit [facility] Urology [address] [phone] Vivien Blanchard MD 420 [facility] 394 [place], [place] [address]40[address] 11/20/2024 3:30 PM CDT Office Visit [address] [phone] Mary Garcia MD [address] [place] [address] 11/22/2024 9:15 AM CDT Office Visit [facility] Heart [facility] [address] [facility] [address] [place] [phone] Federico Linda MD 6405 [facility] [address] [place] [address] 11/30/2024 10:[address] [facility] [address] [place] [phone] 12/06/2024 10:10 AM CDT Office [facility] 6525 [facility] 200 [place] [phone] Virgie Lobato, PA-C 909 [place], [place] 3[address] 12/28/2024 11:00 AM CDT Office Visit [facility] 2945 [facility] 200 [place] [phone] [place] [address] [place] [address] 200 [place] [address] 01/26/2025 11:30 AM CDT Office Visit [facility] [address] [place] [phone] [place] [address] [place] [address] documented as of this encounter Goals Goal Patient Goal Type Associated Problems Recent Progress Patient-Stated? Author Problem Solving General On track( 019 9:24 AM SAMPLE BUILDER) Yes Sheryl Stringer, ELI Note: My Goal: [...] Out COVID-19 2021 2021 04/25/2021 12:41 PM SAMPLE BUILDER Rule Out COVID-19 06/14/2022 06/14/2022 06/14/2022 11:30 AM SAMPLE BUILDER Rule Out COVID-19 07/03/2022 07/03/2022 07/04/2022 12:27 AM SAMPLE BUILDER Rule Out COVID-19 04/01/2024 04/01/2024 04/01/2024 10:07 PM CDT ESBL 07/05/2024 08/24/2024 Rule Out COVID-19 07/16/2024 07/16/2024 07/16/2024 11:04 PM SAMPLE BUILDER Rule Out COVID-19 09/01/2024 09/01/2024 09/01/2024 2:05 AM CDT Rule Out COVID-19 09/21/2024 09/21/2024 09/21/2024 3:25 PM CDT Assessment Noted Time PHQ-9 Depression Total Score: 6 07/28/19 20 7:04 AM SAMPLE BUILDER documented as of this encounter Care Teams Miter Grinder Operator Relationship Specialty Start Date End Date Trina Carbajal PAAnthonyC [address] [facility] [address] [place] [address] PCP - General Family Medicine 05/19/20 04/10/24 [place] [address] [place] [address] PCP - General Family Medicine 04/11/[address] [place] [address] Railroad Design Consultant Dietitian, Registered 11/03/17 Trina Carbajal PA-C [address] [place] [address] Assigned PCP 08/13/19 07/27/20 Federico Linda MD [address] [place] [address] Assigned Heart and Vascular Provider 03/29/20 Connie Blackwell MD [address] [place] [address] Assigned Endocrinology Provider 07/14/20 12/19/20 Ruth Ann Munoz MD [place] [address] [place] [address] Assigned PCP 07/28/20 08/25/20 Carlos Livingston MD NO INFO AVAILABLE Assigned PCP 08/26/20 08/31/20 Trina Carbajal PA-C [address] [place] [address] Assigned PCP 09/01/20 12/07/20 Carlos Livingston MD NO INFO AVAILABLE Assigned Endocrinology Provider 12/20/20 12/18/22 Carlos Livingston MD NO INFO AVAILABLE Assigned PCP 12/08/20 12/19/20 Trina Carbajal PA-C 6[address] [facility] [address] [place] [address] Assigned PCP 12/20/20 04/28/24 Mari Funes, RN Personal Advocate & Liaison (PAL) Nurse 01/24/21 06/12/21 Jc Zavala MD [facility] [address] [place] [address] Hematology & Oncology 08/07/21 Barbi Manzo, JERRY Personal Advocate & Liaison (PAL) Family Medicine 12/24/21 07/08/23 [place] [address] [place] [address] Assigned Musculoskeletal Provider 04/04/22 08/19/23 Cristofer Michelle MD [address] [place], [place] [address]B [address] [place], [place] [address] Gastroenterology 07/28/22 Vivien Blanchard MD [address] [place] [address]695 Urology 07/28/22 Sapna Hernandez MD [address] [place] [address] Assigned Nephrology Provider 07/11/22 09/25/22 Vivien Blanchard MD [address] [place] [address] Assigned Surgical Provider 07/25/22 06/30/23 LhVirgie viramontes PA-C [address] [place] [address] Assigned Nephrology Provider 09/26/22 03/28/24 Teetee Velazquez PA-C [address] [place] [address] 746675 Physician Director Consumer Affairs 05/11/23 Teetee Velazquez PA-C [address] [place] [address] Assigned Surgical Provider 07/01/23 Cora Shah, JERRY Personal Advocate & Liaison (PAL) Nurse 07/09/23 09/29/23 [place] [address] 730767 Assigned Musculoskeletal Provider 08/20/23 Cristal Cooper RN Lead Watershed Engineer Primary Care - CC 04/27/2404/08 Shannon Rowland PA-C [address] [place] [address] Assigned PCP 04/29/24 05/28/24 Lanie Foster, RD, LD [address] [address] Registered Dietitian Nutrition 05/15/24 [place] [address] [place], [place] 92915[address] Assigned PCP 05/29/24 Melonie Caro [facility] [address] [place] [address] Pharmacist Pharmacist 06/05/24 Federico Linda MD [address] [place], [place] 867[address] Cardiovascular Disease 06/13/24 Melonie Caro [facility] [address] [place] [address] Assigned MTM Pharmacist 06/29/24 Virgie Lobato, PAAnthonyC [address] [place] [address]1955 Assigned Nephrology Provider 07/30/24 Barry Ybarra MD [address] [place] [address] Hospitalist Infectious Diseases 08/31/24 Barry Ybarra MD [address] [place] [address] Assigned Infectious Disease Provider 10/27/24 documented as of this encounter
--- OUTSIDE RECORDS SUMMARY | 2024-11-12 17:34 | XMS_ITS | Encounter Summary ---
Author Organization [place] Address [address] [place] [address] Care Team Providers Care Sausage Machine Operator Name Role Phone Sheryl Stringer ELI Unavailable [phone] Flynn Ruiz MD Primary Care Provider Trina Carbajal PA-C Unavailable [phone] Federico Linda MD Unavailable Trina Carbajal PA-C Primary Care Provider [phone] Connie Blackwell MD Unavailable [phone] Ruth Ann Munoz MD Unavailable + Carlos Livingston MD Unavailable Jelena ericailable Trina Carbajal PA-C Unavailable [phone] Carlos Livingston MD Unavailable Jelena ericailable Carlos Livingston MD Unavailable Jelena Trina Marcum PA-C Unavailable [phone] Mari Funes RN Unavailable Unavailable Jc Zavala MD Unavailable [phone] Barbi Manzo RN Unavailable Unavailable Erasto Root MD Unavailable Cristofer Michelle MD Unavailable [phone] Vivien Blanchard MD Unavailable + [phone] Sapna Hernandez MD Unavailable Vivien Blanchard MD Unavailable [phone] Virgie Lobato-C Unavailable Teetee Velazquez PA-C Unavailable +[phone] Teetee Velazquez PA-C Unavailable +[phone] Cora Shah RN Unavailable Brad Mayer DO Unavailable [phone] Mary Garcia MD Primary Care Provider Cristal Cooper RN Unavailable Shannon Rowland PA-C Unavailable [phone], LD Unavailabl e Mary Garcia MD Unavailable Melonie Caro [facility] Unavailable [phone] Federico Linda MD Unavailable [phone] Melonie Caro [facility] Unavailable Virgie viramontes-C Unavailable +[phone] Barry Ybarra MD Unavailable [phone] Barry Ybarra MD Unavailable [phone] Encounter Details Date Type Department Care Team (Late st Contact Info) Description 12/21/[address] [facility] [address] [address] Rahel Chinchilla CMA Social History Tobacco Use Types Packs/Day Years Used Date Smoking Tobacco: Never Smokeless Tobacco: Never Alcohol Use Standard Drinks/Week Comments No 0 (1 standard drink = 0.6 oz pur e alcohol) PHQ-2 Answer Date Recorded PHQ-2 Score 0 07/27/2019 Comments No Sex and Gender Information Value Date Recorded Sex Assigned at Female 07/18/2020 1:16 PM IT INFRASTRUCTURE ARCHITECT Legal Sex Female 3:23 AM IT INFRASTRUCTURE ARCHITECT Gender Identity Female 07/18/2020 1:16 PM IT INFRASTRUCTURE ARCHITECT Sexual Orientation Straight 07/18/2020 1: 16 PM IT INFRASTRUCTURE ARCHITECT 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 Not on file documented as of this encounter Plan of Treatment Upcoming Encounters Date Type Department Care Team (Late st Contact Info) Description 11/16/2024 1:00 PM CDT Allied Health/Nurse Visit [facility] Urology [address] [phone] Lucero Britt PA-C 500 [place], [place] [address] 11/16/2024 2:45 PM CDT Office Visit [facility] Urology [address] [phone] Vivien Blanchard MD 420 [facility] 394 [place], [place] [address] 11/20/2024 3:30 PM CDT Office Visit [address] [phone] [place] [address] [place] [address] 11/22/2024 9:15 AM CDT Office Visit [facility] Heart [facility] [address] [facility] [address] [place] [address] Federico Linda MD 9507 [facility] [address] [place] [address] 11/30/2024 10:30 AM CDT Lab [facility] [address] [place] [address] 12/06/2024 10:10 AM CDT Office Visit [facility] 6525 [facility] 200 [place] [address] Virgie Lobato, PANilesh 909 [place] [address] 12/28/2024 11:00 AM CDT Office Visit [facility] [address] [phone] [place] [address] [place] [address] 01/26/2025 11:30 AM CDT Office Visit [facility] [address] [place] [phone] [place] [address] [place] [address] documented as of this encounter Goals Goal Patient Goal Type Associated Problems Recent Progress Patient-Stated? Author Problem Solving General On track( 019 9:24 AM IT INFRASTRUCTURE ARCHITECT) Yes Sheryl Stringer, ELI Note: My Goal: [...] Out COVID-19 2021 2021 04/25/2021 12:41 PM IT INFRASTRUCTURE ARCHITECT Rule Out COVID-19 06/14/2022 06/14/2022 06/14/2022 11:30 AM IT INFRASTRUCTURE ARCHITECT Rule Out COVID-19 07/03/2022 07/03/2022 07/04/2022 12:27 AM IT INFRASTRUCTURE ARCHITECT Rule Out COVID-19 04/01/2024 04/01/2024 04/01/2024 10:07 PM CDT ESBL 07/05/2024 08/24/2024 Rule Out COVID-19 07/16/2024 07/16/2024 07/16/2024 11:04 PM IT INFRASTRUCTURE ARCHITECT Rule Out COVID-19 09/01/2024 09/01/2024 09/01/2024 2:05 AM CDT Rule Out COVID-19 09/21/2024 09/21/2024 09/21/2024 3:25 PM CDT Assessment Noted Time PHQ-9 Depression Total Score: 6 07/28/19 7:04 AM IT INFRASTRUCTURE ARCHITECT documented as of this encounter Care Teams Sausage Machine Operator Relationship Specialty Start Date End Date Flynn Ruiz MD [address] [place] [address] PCP - General Family Practice 04/14/19 05/18/20 Trina Carbajal, PA-C [address] [facility] [address] [place] [address] PCP - General Family Medicine 05/19/20 04/10/24 [place] [address] [address] [address] PCP - General Family Medicine 04/11/[address] [place] [address] Wool Mixer Dietitian, Registered 11/03/17 Trina Carbajal PA-C [address] [place] [address] Assigned PCP 08/13/19 07/27/20 Federico Linda MD [address] [place] [address] Assigned Heart and Vascular Provider 03/29/20 Connie Blackwell MD [address] [place] [address] Assigned Endocrinology Provider 07/14/20 12/19/20 Ruth Ann Munoz MD [place] [address] [place] [address] Assigned PCP 07/28/20 08/25/20 Carlos Livingston MD NO INFO AVAILABLE Assigned PCP 08/26/20 08/31/20 Trina Carbajal PA-C [address] [place] [address] Assigned PCP 09/01/20 12/07/20 Carlos Livingston MD NO INFO AVAILABLE Assigned Endocrinology Provider 12/20/20 12/18/22 Carlos Livingston MD NO INFO AVAILABLE Assigned PCP 12/08/20 12/19/20 Trina Carbajal PA-C 6405 [facility] [address] [place] [address] Assigned PCP 12/20/20 04/28/24 Mari Funes, RN Personal Advocate & Liaison (PAL) Nurse 01/24/21 06/12/21 Jc Zavala MD [facility] [address] [place] [address] Hematology & Oncology 08/07/21 Barbi Manzo, JERRY Personal Advocate & Liaison (PAL) Family Medicine 12/24/21 07/08/23 [place] [address] [place] [address] Assigned Musculoskeletal Provider 04/04/22 08/19/23 Cristofer Michelle MD [address] [place], [place] [address] 1[address] [place], [place] [address] Gastroenterology 07/28/22 Vivien Blanchard MD [address] [place] [address] 081395 Urology 07/28/22 Sapna Hernandez MD [address] [place] [address] Assigned Nephrology Provider 07/11/22 09/25/22 Vivien Blanchard MD [address] [place] [address] Assigned Surgical Provider 07/25/22 06/30/23 LhVirgie viramontes PA-C [address] [place] [address] Assigned Nephrology Provider 09/26/22 03/28/24 Teetee Velazquez PA-C [address] [place] [address] 109615 Physician Garment Supervisor 05/11/23 Teetee Velazquez PA-C [address] [place] [address] Assigned Surgical Provider 07/01/23 Cora Shah, JERRY Personal Advocate & Liaison (PAL) Nurse 07/09/23 09/29/23 [place] [address] 162247 Assigned Musculoskeletal Provider 08/20/23 Cristal Cooper RN Lead Academic Support Assistant Primary Care - CC 04/27/2404/08 Shannon Rowland PA-C [address] [place] [address] Assigned PCP 04/29/24 05/28/24 Lanie Foster, RD, LD [address] [address] Registered Dietitian Nutrition 05/15/24 [place] [address] [place], [place] 79[address] Assigned PCP 05/29/24 Melonie Caro [facility] [address] [place] [address] Pharmacist Pharmacist 06/05/24 Federico Linda MD [address] [place], [place] 9[address] Cardiovascular Disease 06/13/24 Melonie Caro [facility] [address] [place] [address] Assigned MTM Pharmacist 06/29/24 Virgie Lobato, PAAnthonyC [address] [place] [address] 476495 Assigned Nephrology Provider 07/30/24 Barry Ybarra MD [address] [place] [address] Hospitalist Infectious Diseases 08/31/24 Barry Ybarra MD [address] [place] [address] Assigned Infectious Disease Provider 10/27/24 documented as of this encounter
--- OUTSIDE RECORDS SUMMARY | 2024-11-12 17:34 | XMS_ITS | Encounter Summary ---
Author Organization [place] Address [address] [place] [address] Care Team Providers Care Case Manager Name Role Phone Flynn Ruiz MD Primary Care Provider [phone] No Ref-Primary, Physician Primary Care Provider Sheryl Stringer RD Unavailable [phone] Flynn Ruiz MD Primary Care Provider + [phone] Sheryl Jaimes MD Primary Care Provider Unavailab Flynn Morris MD Unavailable [phone] [facility] Primary Care Provider No Ref-Primary, Physician Primary Care Provider Flynn Ruiz MD Unavailable [phone] Ruth Ann Munoz MD Primary Care Prov ider Ruth Ann Munoz MD Unavailable + Flynn Ruiz MD Primary Care Provider [phone] CominsRuth Ann Kellogg MD Unavailable + Flynn Ruiz MD Unavailable [phone] Flynn Ruiz MD Unavailable +[phone] Mari Funes RN Unavailable Unavailable EmmaRuth Ann Holder MD Unavailable + Trina Carbajal-C Unavailable +[phone] Federico Linda MD Unavailable [phone] Trina Carbajal PA-C Primary Care Provider [phone] Connie Blackwell MD Unavailable [phone] [facility] Unavailable + Carlos Livingston MD Unavailable Jelena vailable Trina Carbajal PA-C Unavailable [phone] Carlos Livingston MD Unavailable Jelena vailable Carlos Livingston MD Unavailable Jelena vailable Trina Carbajal PA-C Unavailable [phone] Mari Funes RN Unavailable Unavailable Jc Zavala MD Unavailable [phone] Barbi Manzo RN Unavailable Unavailable Erasto Root MD Unavailable Cristofer Michelle MD Unavailable [phone] Vivien Blanchard MD Unavailable + [phone] Sapna Hernandez MD Unavailable Vivien Blanchard MD Unavailable + [phone] Virgie Lobato PA-C Unavailable [phone] Teetee Velazquez PA-C Unavailable + [phone] Teetee Velazquez PA-C Unavailable + [phone] Cora Shah RN Unavailable Brad Mayer Unavailable [phone] Mary Garcia MD Primary Care Provider Cristal Cooper RN Unavailable Shannon Rowland PA-C Unavailable [phone], LD Unavailabl e Mary Garcia MD Unavailable Melonie Caro [facility] Unavailable Federico Linda MD Unavailable Melonie Caro [facility] Unavailable Virgie Lobato PA-C Unavailable Barry Ybarra MD Unavailable Barry Ybarra MD Unavailable +[phone] Reason for Visit * Reason Comments Medication Refill Encounter Details Date Type Department Care Team (Late st Contact Info) Description 08/03/2017 [facility] [address] [facility] [address] [place] [address] Axel Helm MD [address] [place] [address] Medication Refill Social History Tobacco Use Types Packs/Day Years Used Date Smoking Tobacco: Never Smokeless Tobacco: Never Alcohol Use Standard Drinks/Week Comments No 0 (1 standard drink = 0.6 oz pur e alcohol) Comments No Sex and Gender Information Value Date Recorded Sex Assigned at Female 07/18/2020 1:16 PM BRAND MARKETING INTERN Legal Sex Female 3:23 AM BRAND MARKETING INTERN Gender Identity Female 07/18/2020 1:16 PM BRAND MARKETING INTERN Sexual Orientation Straight 07/18/2020 1: 16 PM BRAND MARKETING INTERN 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 NOVOLOG FLEXPEN 100 UNIT/ML soln [Pharmacy Med Name: NOVOLOG 100 UNITS/ML FLEXPEN] 1 Si (ONE) UNIT UNDER SKIN THREE TIMES DAILY* UP TO 100 UNITS DIVIDED (10-10-10 OF 07/21/16) TITRATE Short Acting Insulin Protocol Passed 08/03/2017 4:09 PM Passed - Blood pressure less than 140/90 in past 6 months BP Readings from Last 3 Encounters: 08/03/17 120/62 05/28/17 122/60 04/30/17 142/82 Passed - LDL on file in past 12 months Recent Labs Lab Test 08/03/17 1003 LDL 89 Passed - Microalbumin on file in past 12 months Recent Labs Lab Test 08/03/17 1004 MICROL 69 UMALCR 55.81* Passed - Serum creatinine on file in past 12 months Recent Labs Lab Test 08/03/17 1003 CR 1.10* Passed - HgbA1C in past 3 or 6 months Recent Labs Lab Test 08/03/17 1003 A1C 8.3* Passed - Patient is age 18 or older Passed - Recent visit with authorizing provider's specialty in past 6 months Patient had office visit in the last 6 months or has a visit in the next 30 days with authorizing provider. See Patient Info tab in inbasket, or Choose Columns in Meds & Orders section of therefill encounter. Routing refill request to provider for review/approval because: Medication is reported/historical D MARKETING INTERN documented in this encounter Plan of Treatment Upcoming Encounters Date Type Department Care Team (Late st Contact Info) Description 11/16/2024 1:00 PM CDT Allied Health/Nurse Visit [facility] [place] [address] [facility] 4th [place] [address] Lucero Britt PA-C [address] [place] [address] [phone] 11/16/2024 2:45 PM CDT Office Visit [facility] [place] 909 [facility] 4th [place] [phone] Vivien Blanchard MD 420 [facility] 394 [place] [address] 11/20/2024 3:30 PM CDT Office Visit [facility] [address] [place] [phone] [place] [address] [place] [address] 11/22/2024 9:15 AM CDT [facility] Visit [facility] Heart [facility] [address] [facility] [address] [place] [phone] Federico Linda MD [address] [facility] [address] [place] [address] 11/30/2024 10:30 AM CDT Lab [facility] [address] [place] [phone] 12/06/2024 10:10 AM CDT [facility] Visit [facility] Specialty [facility] 6525 [facility] 200 [place] [phone] Virgie Lobato PA-C 909 [place] [address] 12/28/2024 11:00 AM CDT Office Visit [facility] 2945 [facility] 200 [place] [phone] [place] [address] [place] [address] 200 [place] [address] 01/26/2025 11:30 AM CDT Office Visit [facility] [address] [place] [address] [place] [address] [place] [address] documented as of this encounter Visit Diagnoses Diagnosis Type 2 diabetes mellitus with complication, with long-term current use of insulin (H)- Primary documented in this encounter Additional Health Concerns Infection Onset Date Last Indicated Resolved Time Rule Out COVID-19 03/08/2021 03/08/2021 03/09/2021 1:42 AM CDT Rule Out C-difficile 03/10/2021 03/10/2021 5:50 PM CDT Rule Out COVID-19 2021 2021 04/25/2021 12:41 PM BRAND MARKETING INTERN Rule Out COVID-19 06/14/2022 06/14/2022 06/14/2022 11:30 AM BRAND MARKETING INTERN Rule Out COVID-19 07/03/2022 07/03/2022 07/04/2022 12:27 AM BRAND MARKETING INTERN Rule Out COVID-19 04/01/2024 04/01/2024 04/01/2024 10:07 PM CDT ESBL 07/05/2024 08/24/2024 Rule Out COVID-19 07/16/2024 07/16/2024 07/16/2024 11:04 PM BRAND MARKETING INTERN Rule Out COVID-19 09/01/2024 09/01/2024 09/01/2024 2:05 AM CDT Rule Out COVID-19 09/21/2024 09/21/2024 09/21/2024 3:25 PM CDT Assessment Noted Time PHQ-9 Depression Total Score: 8 11/27/19 17 7:21 AM CDT documented as of this encounter Care Teams Case Manager Relationship Specialty Start Date End Date Flynn Ruiz MD PCP - General Family Practice 03/15/17 11/02/17 No Ref-Primary, Physician PCP - General 11/03/17 12/07/17 Flynn Ruiz MD PCP - General Family Practice 12/08/17 07/07/18 Sheryl Jaimes MD [address] [place] [address] PCP - General Family Practice 07/08/18 08/02/18 Flynn Ruiz MD [address] [place] [address] PCP - Assigned PCP 07/10/18 08/09/18 [facility] [address] [place], [place] [id number] PCP - General 08/03/18 08/04/18 No Ref-Primary, Physician PCP - General 08/05/18 08/30/18 [place] [address] [place], [place] [phone] PCP - General Family Practice 08/31/18 04/13/19 Flynn Ruiz MD [facility] [address] [place] [address] [address] [place] [address] PCP - General Family Practice 04/14/19 05/18/20 Trina Carbajal, GIUSEPPEC [address] [facility] [address] [place] [address] PCP - General Family Medicine 05/19/20 04/10/24 [place] [address] [place] [address] PCP - General Family Medicine 04/11/[address] [place] [address] Roller Presser Operator Dietitian, Registered 11/03/17 Flynn Ruiz MD [address] [place] [address] Assigned PCP 04/24/18 12/24/18 Ruth Ann Munoz MD [place] [address] [place] [address] Assigned PCP 12/25/18 04/22/19 Ruth Ann Munoz MD [place] [address] [place] [address] Assigned PCP 04/30/19 05/27/19 Flynn Ruiz MD [address] [place] [address] Assigned PCP 04/23/19 04/29/19 Flynn Ruiz MD [address] [place] [address] Assigned PCP 05/28/19 07/22/19 Mari Funes, JERRY Personal Advocate & Liaison (PAL) 07/27/19 07/30/19 Ruth Ann Munoz MD [place] [address] [place] [address] Assigned PCP 07/23/19 08/12/19 Trina Carbajal PA-C [address] [place] [address] Assigned PCP 08/13/19 07/27/20 Federico Linda MD [address] [place] [address] Assigned Heart and Vascular Provider 03/29/20 Connie Blackwell MD [address] [place], [place] 0[address] Assigned Endocrinology Provider 07/14/20 12/19/20 Ruth Ann Munoz MD [place] [address] [facility] 207 [place] [address] Assigned PCP 07/28/20 08/25/20 Carlos Livingston MD NO INFO AVAILABLE Assigned PCP 08/26/20 08/31/20 Trina Carbajal PA-C [address] [place] [address] Assigned PCP 09/01/20 12/07/20 Carlos Livingston MD NO INFO AVAILABLE Assigned Endocrinology Provider 12/20/20 12/18/22 Carlos Livingston MD NO INFO AVAILABLE Assigned PCP 12/08/20 12/19/20 Trina Carbajal PA-C [address] [place] [address] Assigned PCP 12/20/20 04/28/24 Mari Funes, JERRY Personal Advocate & Liaison (PAL) Nurse 01/24/21 06/12/21 Jc Zavala MD [facility] [address] [place] [address] Hematology & Oncology 08/07/21 Barbi Manzo, JERRY Personal Advocate & Liaison (PAL) Family Medicine 12/24/21 07/08/23 [place] [address] [address] Assigned Musculoskeletal Provider 04/04/22 08/19/23 Cristofer Michelle MD [address] [place] [address] Gastroenterology 07/28/22 Vivien Blanchard MD [address] [place] [address] 592105 Urology 07/28/22 Sapna Hernandez MD [address] [place] [address] 735995 Assigned Nephrology Provider 07/11/22 09/25/22 Vivien Blanchard MD [address] [place] [address] 853815 Assigned Surgical Provider 07/25/22 06/30/23 Virgie Lobato PA-C [address] [place] [address] Assigned Nephrology Provider 09/26/22 03/28/24 Teetee Velazquez PA-C 909 [place] [address] Physician Transfusion Nurse 05/11/23 Teetee Velazquez PA-C 909 [place], [place] 406035 Assigned Surgical Provider 07/01/23 Cora Shah, JERRY Personal Advocate & Liaison (PAL) Nurse 07/09/23 09/29/23 [place] [address] [address] Assigned Musculoskeletal Provider 08/20/23 Cristal Cooper RN Lead Manager Financial Systems Primary Care - CC 04/27/2404/08 Shannon Rowland PA-C [address] [place] [address] Assigned PCP 04/29/24 05/28/24 Lanie Foster, RD, LD [address] [place] [address] Registered Dietitian Nutrition 05/15/24 [place] [address] [place] [address] Assigned PCP 05/29/24 Melonie Caro [facility] [address] [place] [address] Pharmacist Pharmacist 06/05/24 Federico Linda MD [address] [place] [address] Cardiovascular Disease 06/13/24 Melonie Caro [facility] [address] [place] [address] Assigned MTM Pharmacist 06/29/24 Virgie Lobato, PAAnthonyC [address] [place] [address] Assigned Nephrology Provider 07/30/24 Barry Ybarra MD [address] [place] [address] Hospitalist Infectious Diseases 08/31/24 Barry Ybarra MD [address] [place] [address] Assigned Infectious Disease Provider 10/27/24 documented as of this encounter
--- OUTSIDE RECORDS SUMMARY | 2024-11-12 17:34 | XMS_ITS | Encounter Summary ---
Author Organization [place] Address [address] [place] [address] Care Team Providers Care Vocational Placement Specialist Name Role Phone Sheryl Stringer ELI Unavailable [phone] Flynn Ruiz MD Primary Care Provider Trina Carbajal PA-C Unavailable [phone] Federico iLnda MD Unavailable Trina Carbajal PA-C Primary Care Provider [phone] Connie Blackwell MD Unavailable [phone] Ruth Ann Munoz MD Unavailable + Carlos Livingston MD Unavailable Jelena ericailable Trina Carbajal PA-C Unavailable [phone] Carlos Livingston MD Unavailable Jelena ericailable Carlos Livingston MD Unavailable Jelena Trina Marcum PA-C Unavailable [phone] Mari Funes RN Unavailable Unavailable Jc Zavala MD Unavailable [phone] Barbi Manzo RN Unavailable Unavailable Erasto Root MD Unavailable Cristofer Michelle MD Unavailable [phone] Vivien Blanchard MD Unavailable + [phone] Sapna Hernandez MD Unavailable Vivien Blanchard MD Unavailable [phone] Virgie Lobato-C Unavailable +[phone] Teetee Velazquez PA-C Unavailable +[phone] Teetee Velazquez PA-C Unavailable +[phone] Cora Shah RN Unavailable [phone] Brad Mayer DO Unavailable [phone] Mary Garcia MD Primary Care Provider Cristal Cooper RN Unavailable Shannon Rowland PA-C Unavailable Lanie Foster RD, LD Unavailabl e Mary Garcia MD Unavailable Melonie Caro [facility] Unavailable [phone] Federico Linda MD Unavailable [phone] Melonie Caro [facility] Unavailable Virgie viramontes-C Unavailable +[phone] Barry Ybarra MD Unavailable +[phone] Barry Ybarra MD Unavailable [phone] Encounter Details Date Type Department Care Team (Late st Contact Info) Description 01/24/2020 [facility] [address] [address] Rahel Chinchilla CMA Social History Tobacco Use Types Packs/Day Years Used Date Smoking Tobacco: Never Smokeless Tobacco: Never Alcohol Use Standard Drinks/Week Comments No 0 (1 standard drink = 0.6 oz pur e alcohol) PHQ-2 Answer Date Recorded PHQ-2 Score 0 07/27/2019 Comments No Sex and Gender Information Value Date Recorded Sex Assigned at Female 07/18/2020 1:16 PM DEFENSE ANALYST Legal Sex Female 3:23 AM DEFENSE ANALYST Gender Identity Female 07/18/2020 1:16 PM DEFENSE ANALYST Sexual Orientation Straight 07/18/2020 1: 16 PM DEFENSE ANALYST 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 Not on file Not on file documented as of this encounter Plan of Treatment Upcoming Encounters Date Type Department Care Team (Late st Contact Info) Description 11/16/2024 1:00 PM CDT Allied Health/Nurse Visit [facility] [address] [phone] Lucero Britt PA-C 500 [place], [place] [address] 11/16/2024 2:45 PM CDT Office Visit [facility] [address] [phone] Vivien Blanchard MD 420 [facility] 394 [place], [place] [address] 11/20/2024 3:30 PM CDT Office Visit [address] [phone] [place] [address] [place] [address] 11/22/2024 9:15 AM CDT Office Visit [facility] Heart [facility] [address] [facility] [address] [place] [address] Federico Linda MD 1662 [facility] [address] [place] [address] 11/30/2024 10:30 AM CDT Lab [facility] [address] [place] [address] 12/06/2024 10:10 AM CDT Office Visit [facility] 6525 [facility] 200 [place] [address] Virgie Lobato, PANilesh 909 [place] [address] 12/28/2024 11:00 AM CDT Office Visit [facility] [address] [phone] [place] [address] [place] [address] 01/26/2025 11:30 AM CDT Office Visit [facility] [address] [place] [phone] [place] [address] [place] [address] documented as of this encounter Goals Goal Patient Goal Type Associated Problems Recent Progress Patient-Stated? Author Problem Solving General On track( 019 9:24 AM DEFENSE ANALYST) Yes Sheryl Stringer, ELI Note: My [...] Out COVID-19 2021 2021 04/25/2021 12:41 PM DEFENSE ANALYST Rule Out COVID-19 06/14/2022 06/14/2022 06/14/2022 11:30 AM DEFENSE ANALYST Rule Out COVID-19 07/03/2022 07/03/2022 07/04/2022 12:27 AM DEFENSE ANALYST Rule Out COVID-19 04/01/2024 04/01/2024 04/01/2024 10:07 PM CDT ESBL 07/05/2024 08/24/2024 Rule Out COVID-19 07/16/2024 07/16/2024 07/16/2024 11:04 PM DEFENSE ANALYST Rule Out COVID-19 09/01/2024 09/01/2024 09/01/2024 2:05 AM CDT Rule Out COVID-19 09/21/2024 09/21/2024 09/21/2024 3:25 PM CDT Assessment Noted Time PHQ-9 Depression Total Score: 6 07/28/19 7:04 AM DEFENSE ANALYST documented as of this encounter Care Teams Vocational Placement Specialist Relationship Specialty Start Date End Date Flynn Ruiz MD [address] [place] [address] PCP - General Family Practice 04/14/19 05/18/20 Trina Carbajal, PA-C [address] [facility] [address] [place] [address] PCP - General Family Medicine 05/19/20 04/10/24 [place] [address] [address] [place] [address] PCP - General Family Medicine 04/11/[address] [place] [address] Aeronautical Engineer Dietitian, Registered 11/03/17 Trina Carbajal PA-C [address] [place] [address] Assigned PCP 08/13/19 07/27/20 Federico Linda MD [address] [place] [address] Assigned Heart and Vascular Provider 03/29/20 Connie Blackwell MD [address] [place] [address] Assigned Endocrinology Provider 07/14/20 12/19/20 Ruth Ann Munoz MD [place] [address] [place] [address] Assigned PCP 07/28/20 08/25/20 Carlos Livingston MD NO INFO AVAILABLE Assigned PCP 08/26/20 08/31/20 Trina Carbajal PA-C [address] [place] [address] Assigned PCP 09/01/20 12/07/20 Carlos Livingston MD NO INFO AVAILABLE Assigned Endocrinology Provider 12/20/20 12/18/22 Carlos Livingston MD NO INFO AVAILABLE Assigned PCP 12/08/20 12/19/20 Trina Carbajal PA-C [address] [facility] [address] [place] [address] Assigned PCP 12/20/20 04/28/24 Mari Funes, RN Personal Advocate & Liaison (PAL) Nurse 01/24/21 06/12/21 Jc Zavala MD [facility] [address] [place] [address] Hematology & Oncology 08/07/21 Barbi Manzo, JERRY Personal Advocate & Liaison (PAL) Family Medicine 12/24/21 07/08/23 [place] [address] [place] [address] Assigned Musculoskeletal Provider 04/04/22 08/19/23 Cristofer Michelle MD [address] [place], [place] [address]B [address] [place], [place] [address] Gastroenterology 07/28/22 Vivien Blanchard MD [address] [place] [address] 144025 Urology 07/28/22 Sapna Hernandez MD [address] [place] [address] Assigned Nephrology Provider 07/11/22 09/25/22 Vivien Blanchard MD [address] [place] [address] Assigned Surgical Provider 07/25/22 06/30/23 LhVirgie viramontes PA-C [address] [place] [address] Assigned Nephrology Provider 09/26/22 03/28/24 Teetee Velazquez PA-C [address] [place] [address] 721685 Physician Skirt Clipper 05/11/23 Teetee Velazquez PA-C [address] [place] [address] Assigned Surgical Provider 07/01/23 Cora Shah, JERRY Personal Advocate & Liaison (PAL) Nurse 07/09/23 09/29/23 [place] [address] [address] Assigned Musculoskeletal Provider 08/20/23 Cristal Cooper RN Lead Furniture Sales Associate Primary Care - CC 04/27/2404/08 Shannon Rowland [place]-C [address] [place] [address] Assigned PCP 04/29/24 05/28/24 Lanie Foster, RD, LD [address] [place] [address] Registered Dietitian Nutrition 05/15/24 [place] [address] [place], [place] 57[address] Assigned PCP 05/29/24 Melonie Caro [facility] [address] [place] [address] Pharmacist Pharmacist 06/05/24 Federico Linda MD [address] [place], [place] [address] Cardiovascular Disease 06/13/24 Melonie Caro [facility] [address] [place] [address] Assigned MTM Pharmacist 06/29/24 Virgie Lobato, PAAnthonyC [address] [place] [address] 982805 Assigned Nephrology Provider 07/30/24 Barry Ybarra MD [address] [place] [address] Hospitalist Infectious Diseases 08/31/24 Barry Ybarra MD [address] [place] [address] Assigned Infectious Disease Provider 10/27/24 documented as of this encounter
--- OUTSIDE RECORDS SUMMARY | 2024-11-12 17:34 | XMS_ITS | Encounter Summary ---
Author Organization [facility] Address [address] [place] [address] Care Team Providers Care Clinical Researcher Name Role Phone Sheryl Stringer Kirk BENITEZ Unavailable [phone] Trina Carbajal PA-C Unavailable [phone] Federico Linda MD Unavailable [phone] Trina Carbajal PA-C Primary Care Provider [phone] Connie Blackwell MD Unavailable [phone] Ruth Ann Munoz MD Unavailable + Carlos Livingston MD Unavailable Jelena vailable Trina Carbajal PA-C Unavailable [phone] Carlos Livingston MD Unavailable Jelena vailable Carlos Livingston MD Unavailable Jelena vailable Trina Carbajal PA-C Unavailable [phone] Mari Funes RN Unavailable Unavailable Jc Zavala MD Unavailable [phone] Barbi Manzo RN Unavailable Unavailable Erasto Root MD Unavailable Cristofer Michelle MD Unavailable [phone] Vivien Blanchard MD Unavailable [phone] Sapna Hernandez MD Unavailable Vivien Blanchard MD Unavailable [phone] Virgie Lobato-C Unavailable [phone] Teetee Velazquez PA-C Unavailable +[phone] Teetee Velazquez PA-C Unavailable +[phone] Cora Shah RN Unavailable Brad Mayer DO Unavailable Mary Garcia MD Primary Care Provider Cristal Cooper RN Unavailable Shannon Rowland PA-C Unavailable [phone], LD Unavailabl e Mary Garcia MD Unavailable Melonie Caro [facility] Unavailable Federico Linda MD Unavailable [phone] Melonie Caro [facility] Unavailable Virgie viramontes-C Unavailable [phone] Barry Ybarra MD Unavailable [phone] Barry Ybarra MD Unavailable [phone] Encounter Details Date Type Department Care Team (Late st Contact Info) Description 07/21/2020 [facility] [address] [address] Kika Philip APRN INSOLE AND HEEL STIFFENER [address] [facility] [place] [phone] Social History Tobacco Use Types Packs/Day Years Used Date Smoking Tobacco: Never Smokeless Tobacco: Never Alcohol Use Standard Drinks/Week Comments No 0 (1 standard drink = 0.6 oz pur e alcohol) PHQ-2 Answer Date Recorded PHQ-2 Score 0 07/27/2019 Comments No Sex and Gender Information Value Date Recorded Sex Assigned at Female 07/18/2020 1:16 PM SHORT FILLER BUNCH MACHINE OPERATOR Legal Sex Female 3:23 AM SHORT FILLER BUNCH MACHINE OPERATOR Gender Identity Female 07/18/2020 1:16 PM SHORT FILLER BUNCH MACHINE OPERATOR Sexual Orientation Straight 07/18/2020 1: 16 PM SHORT FILLER BUNCH MACHINE OPERATOR 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 Not on file Not on file documented as of this encounter Plan of Treatment Upcoming Encounters Date Type Department Care Team (Late st Contact Info) Description 11/16/2024 1:00 PM CDT Allied Health/Nurse Visit [facility] [address] [phone] Lucero Britt PA-C [address] [place] [address] 11/16/2024 2:45 PM CDT Office Visit [facility] [address] [phone] Vivien Blanchard MD [address] [facility] [address] [place], [place] [address] 11/20/2024 3:30 PM CDT Office Visit [facility] [address] [place] [address] [place] [id number] [place] [address] 11/22/2024 9:15 AM CDT Office Visit [facility] [address] [place] [address] Federico Linda MD [address] [facility] [address] [place] [address] 11/30/2024 10:30 AM CDT Lab [facility] [address] [place] [address] 12/06/2024 10:10 AM CDT Office Visit [facility] [address] [facility] [address] [place] [phone] Virgie Lobato PANilesh [address] [place] [address] 12/28/2024 11:00 AM CDT Office Visit [facility] [address] [facility] 200 [place] [phone] Barry Ybarra MD [address] [facility] 200 [place] [address] 01/26/2025 11:30 AM CDT Office Visit [facility] [address] [place] [address] [place] [address] [place] [address] documented as of this encounter Goals Goal Patient Goal Type Associated Problems Recent Progress Patient-Stated? Author Problem Solving General On track( 019 9:24 AM SHORT FILLER BUNCH MACHINE OPERATOR) Yes Sheryl Stringer RD Note: [...] Out COVID-19 2021 2021 04/25/2021 12:41 PM SHORT FILLER BUNCH MACHINE OPERATOR Rule Out COVID-19 06/14/2022 06/14/2022 06/14/2022 11:30 AM SHORT FILLER BUNCH MACHINE OPERATOR Rule Out COVID-19 07/03/2022 07/03/2022 07/04/2022 12:27 AM SHORT FILLER BUNCH MACHINE OPERATOR Rule Out COVID-19 04/01/2024 04/01/2024 04/01/2024 10:07 PM CDT ESBL 07/05/2024 08/24/2024 Rule Out COVID-19 07/16/2024 07/16/2024 07/16/2024 11:04 PM SHORT FILLER BUNCH MACHINE OPERATOR Rule Out COVID-19 09/01/2024 09/01/2024 09/01/2024 2:05 AM CDT Rule Out COVID-19 09/21/2024 09/21/2024 09/21/2024 3:25 PM CDT Assessment Noted Time PHQ-9 Depression Total Score: 6 07/28/19 20 7:04 AM SHORT FILLER BUNCH MACHINE OPERATOR documented as of this encounter Care Teams Clinical Researcher Relationship Specialty Start Date End Date Trina Carabjal, PA-C [address] [facility] [address] [place] [address] PCP - General Family Medicine 05/19/20 04/10/24 [place] [address] [address] [place] [address] PCP - General Family Medicine 04/11/[address] [place] [address] Drilling Machine Operator Dietitian, Registered 11/03/17 Trina Carbajal PA-C [address] [place] [address] Assigned PCP 08/13/19 07/27/20 Federico Linda MD [address] [place] [address] Assigned Heart and Vascular Provider 03/29/20 Connie Blackwell MD [address] [place], [place] [address] Assigned Endocrinology Provider 07/14/20 12/19/20 Ruth Ann Munoz MD [place] [address] [place] [address] Assigned PCP 07/28/20 08/25/20 Carlos Livingston MD NO INFO AVAILABLE Assigned PCP 08/26/20 08/31/20 Trina Carbajal PA-C [address] [place] [address] Assigned PCP 09/01/20 12/07/20 Carlos Livingston MD NO INFO AVAILABLE Assigned Endocrinology Provider 12/20/20 12/18/22 Carlos Livingston MD NO INFO AVAILABLE Assigned PCP 12/08/20 12/19/20 Trina Carbajal PA-C [address] [place] [address] Assigned PCP 12/20/20 04/28/24 Mari Funes, JERRY Personal Advocate & Liaison (PAL) Nurse 01/24/21 06/12/21 Jc Zavala MD [facility] [address] [place] [address] Hematology & Oncology 08/07/21 Barbi Manzo RN Personal Advocate & Liaison (PAL) Family Medicine 12/24/21 07/08/23 [place] [address] [place] [address] Assigned Musculoskeletal Provider 04/04/22 08/19/23 Cristofer Michelle MD [address] [place] [address] [address] [place] [address] Gastroenterology 07/28/22 Vivien Blanchard MD [address] [facility] [address] [place], [place] [address] Urology 07/28/22 Sapna Hernandez MD [address] [facility] [address] [place], [place] [address] Assigned Nephrology Provider 07/11/22 09/25/22 Vivien Blanchard MD [address] [facility] [address] [place], [place] [address] Assigned Surgical Provider 07/25/22 06/30/23 Virgie Lobato PA-C [address] [place], [place] 2[address] Assigned Nephrology Provider 09/26/22 03/28/24 Teetee Velazquez PA-C 909 [place], [place] [address] Physician Paving Foreman 05/11/23 Teetee Velazquez PA-C [address] [place], [place] [phone] Assigned Surgical Provider 07/01/23 Cora Shah, JERRY Personal Advocate & Liaison (PAL) Nurse 07/09/23 09/29/23 [place] [address] [address] [phone] Assigned Musculoskeletal Provider 08/20/23 Cristal Cooper, RN Lead Quebracho Tanner [facility] - CC 04/27/2404/08 Shannon Rowland PA-C [address] [place] [address] Assigned PCP 04/29/24 05/28/24 Lanie Foster, RD, LD [address] [place] [address] Registered Dietitian Nutrition 05/15/24 [place] [address] [place] [address] Assigned PCP 05/29/24 Melonie Caro RP [address] [place] [address] Pharmacist Pharmacist 06/05/24 Federico Linda MD [address] [place] [address] Cardiovascular Disease 06/13/24 Melonie Caro [facility] [address] [place] [address] Assigned MTM Pharmacist 06/29/24 Virgie Lobato, PA-C [address] [place] [address] Assigned Nephrology Provider 07/30/24 Barry Ybarra MD [address] [place] [address] Hospitalist Infectious Diseases 08/31/24 Barry Ybarra MD [address] [place] [address] Assigned Infectious Disease Provider 10/27/24 documented as of this encounter
--- OUTSIDE RECORDS SUMMARY | 2024-11-12 17:34 | XMS_ITS | Encounter Summary ---
Author Organization [facility] Address [address] [place] [address] Care Team Providers Care Gallery Host Name Role Phone Sheryl Stringer ELI Unavailable [phone] Flynn Ruiz MD Primary Care Provider Trina Carbajal PA-C Unavailable [phone] Federico Linda MD Unavailable Trina Carbajal PA-C Primary Care Provider [phone] Connie Blackwell MD Unavailable [phone] Ruth Ann Munoz MD Unavailable + Carlos Livingston MD Unavailable Jelena ericailable Trina Carbajal PA-C Unavailable [phone] Carlos Livingston MD Unavailable Jelena ericailable Carlos Livingston MD Unavailable Jelena Trina Marcum PA-C Unavailable [phone] Mari Funes RN Unavailable Unavailable Jc Zavala MD Unavailable [phone] Barbi Manzo RN Unavailable Unavailable Erasto Root MD Unavailable Cristofer Michelle MD Unavailable [phone] Vivien Blanchard MD Unavailable [phone] Sapna Hernandez MD Unavailable Vivien Blanchard MD Unavailable [phone] Virgie Lobato-C Unavailable [phone] Teetee Velazquez PA-C Unavailable +[phone] Teetee Velazquez PA-C Unavailable +[phone] Cora Shah RN Unavailable Brad Mayer DO Unavailable [phone] Mary Garcia MD Primary Care Provider Cristal Cooper RN Unavailable Shannon Rowland PA-C Unavailable [phone], LD Unavailabl e Mary Garcia MD Unavailable Melonie Caro [facility] Unavailable [phone] Federico Linda MD Unavailable [phone] Melonie Caro [facility] Unavailable Virgie viramontes-C Unavailable +[phone] Barry Ybarra MD Unavailable [phone] Barry Ybarra MD Unavailable [phone] Encounter Details Date Type Department Care Team (Late st Contact Info) Description 01/16/2020 [facility] [address] [address] Rahel Chinchilla CMA Social History Tobacco Use Types Packs/Day Years Used Date Smoking Tobacco: Never Smokeless Tobacco: Never Alcohol Use Standard Drinks/Week Comments No 0 (1 standard drink = 0.6 oz pur e alcohol) PHQ-2 Answer Date Recorded PHQ-2 Score 0 07/27/2019 Comments No Sex and Gender Information Value Date Recorded Sex Assigned at Female 07/18/2020 1:16 PM FIELD MECHANIC Legal Sex Female 3:23 AM FIELD MECHANIC Gender Identity Female 07/18/2020 1:16 PM FIELD MECHANIC Sexual Orientation Straight 07/18/2020 1: 16 PM FIELD MECHANIC 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 Not on file documented as of this encounter Plan of Treatment Upcoming Encounters Date Type Department Care Team (Late st Contact Info) Description 11/16/2024 1:00 PM CDT Allied Health/Nurse Visit [facility] [address] [phone] Lucero Britt PA-C 500 [place], [place] [address] 11/16/2024 2:45 PM CDT Office Visit [facility] [address] [phone] Vivien Blanchard MD [address] [facility] 394 [place], [place] [address] 11/20/2024 3:30 PM CDT Office Visit [address] [phone] [place] [address] [place] [address] 11/22/2024 9:15 AM CDT Office Visit [facility] Heart [facility] [address] [facility] [address] [place] [address] Federico Linda MD [address] [facility] [address] [place] [address] 11/30/2024 10:30 AM CDT Lab [facility] [address] [place] [address] 12/06/2024 10:10 AM CDT Office Visit [facility] [address] [facility] 200 [place] [phone] Virgie Lobato, PANilesh 909 [place] [address] 12/28/2024 11:00 AM CDT Office Visit [facility] [address] [phone] [place] [address] [place] [address] 01/26/2025 11:30 AM CDT Office Visit [facility] [address] [place] [phone] [place] [address] [place] [address] documented as of this encounter Goals Goal Patient Goal Type Associated Problems Recent Progress Patient-Stated? Author Problem Solving General On track( 019 9:24 AM FIELD MECHANIC) Yes Sheryl Stringer, ELI Note: My Goal: [...] COVID-19 2021 2021 04/25/2021 12:41 PM FIELD MECHANIC Rule Out COVID-19 06/14/2022 06/14/2022 06/14/2022 11:30 AM FIELD MECHANIC Rule Out COVID-19 07/03/2022 07/03/2022 07/04/2022 12:27 AM FIELD MECHANIC Rule Out COVID-19 04/01/2024 04/01/2024 04/01/2024 10:07 PM CDT ESBL 07/05/2024 08/24/2024 Rule Out COVID-19 07/16/2024 07/16/2024 07/16/2024 11:04 PM FIELD MECHANIC Rule Out COVID-19 09/01/2024 09/01/2024 09/01/2024 2:05 AM CDT Rule Out COVID-19 09/21/2024 09/21/2024 09/21/2024 3:25 PM CDT Assessment Noted Time PHQ-9 Depression Total Score: 6 07/28/19 7:04 AM FIELD MECHANIC documented as of this encounter Care Teams Gallery Host Relationship Specialty Start Date End Date Flynn Ruiz MD [address] [place] [address] PCP - General Family Practice 04/14/19 05/18/20 Trina Carbajal, PA-C [address] [facility] [address] [place] [address] PCP - General Family Medicine 05/19/20 04/10/24 [place] [address] [address] [place] [address] PCP - General Family Medicine 04/11/[address] [place] [address] Director Of Creative Services Dietitian, Registered 11/03/17 Trina Carbajal PA-C [address] [place] [address] Assigned PCP 08/13/19 07/27/20 Federico Linda MD [address] [place] [address] Assigned Heart and Vascular Provider 03/29/20 Connie Blackwell MD [address] [place] [address] Assigned Endocrinology Provider 07/14/20 12/19/20 Ruth Ann Munoz MD [place] [address] [place] [address] Assigned PCP 07/28/20 08/25/20 Carlos Livingston MD NO INFO AVAILABLE Assigned PCP 08/26/20 08/31/20 Trina Carbajal PA-C [address] [place] [address] Assigned PCP 09/01/20 12/07/20 Carlos Livingston MD NO INFO AVAILABLE Assigned Endocrinology Provider 12/20/20 12/18/22 Carlos Livingston MD NO INFO AVAILABLE Assigned PCP 12/08/20 12/19/20 Trina Carbajal PA-C [address] [facility] [address] [place] [address] Assigned PCP 12/20/20 04/28/24 Mari Funes, RN Personal Advocate & Liaison (PAL) Nurse 01/24/21 06/12/21 Jc Zavala MD [facility] [address] [place] [address] Hematology & Oncology 08/07/21 Barbi Manzo, JERRY Personal Advocate & Liaison (PAL) Family Medicine 12/24/21 07/08/23 [place] [address] [place] [address] Assigned Musculoskeletal Provider 04/04/22 08/19/23 Cristofer Michelle MD [address] [place], [place] [address] [address] [place], [place] [address] Gastroenterology 07/28/22 Vivien Blanchard MD [address] [place] [address]95[address] Urology 07/28/22 Sapna Hernandez MD [address] [place] [address] Assigned Nephrology Provider 07/11/22 09/25/22 Vivien Blanchard MD [address] [place] [address] Assigned Surgical Provider 07/25/22 06/30/23 LhVirgie viramontes PA-C [address] [place] [address] Assigned Nephrology Provider 09/26/22 03/28/24 Teetee Velazquez PA-C [address] [place] [address] [phone] Physician Plasterer Tender 05/11/23 Teetee Velazquez PA-C [address] [place] [address] Assigned Surgical Provider 07/01/23 Cora Shah, JERRY Personal Advocate & Liaison (PAL) Nurse 07/09/23 09/29/23 [place] [address] 949987 Assigned Musculoskeletal Provider 08/20/23 Cristal Cooper RN Lead Aquaculturist Primary Care - CC 04/27/2404/08 Shannon Rowland [place]-C [address] [place] [address] Assigned PCP 04/29/24 05/28/24 Lanie Foster, RD, LD [address] [place] [address] Registered Dietitian Nutrition 05/15/24 [place] [address] [place], [place] [phone] Assigned PCP 05/29/24 Melonie Caro [facility] [address] [place] [address] Pharmacist Pharmacist 06/05/24 Federico Linda MD [address] [place], [place] [address] Cardiovascular Disease 06/13/24 Melonie Caro [facility] [address] [place] [address] Assigned MTM Pharmacist 06/29/24 Virgie Lobato, PAAnthonyC [address] [place] [address] [id number] Assigned Nephrology Provider 07/30/24 Barry Ybarra MD [address] [place] [address] Hospitalist Infectious Diseases 08/31/24 Barry Ybarra MD [address] [place] [address] Assigned Infectious Disease Provider 10/27/24 documented as of this encounter
--- OUTSIDE RECORDS SUMMARY | 2024-11-12 17:34 | XMS_ITS | Encounter Summary ---
Author Organization [facility] Address [address] [place] [address] Care Team Providers Care Iron Installer Name Role Phone Sheryl Stringer ELI Unavailable [phone] Flynn Ruiz MD Primary Care Provider Trina Carbajal PA-C Unavailable [phone] Federico Linda MD Unavailable Trina Carbajal PA-C Primary Care Provider [phone] Connie Blackwell MD Unavailable [phone] Ruht Ann Munoz MD Unavailable + Carlos Livingston MD Unavailable Jelena ericailable Trina Carbajal PA-C Unavailable [phone] Carlos Livingston MD Unavailable Jelena ericailable Carlos Livingston MD Unavailable Jelena Trina Marcum PA-C Unavailable [phone] Mari Funes RN Unavailable Unavailable Jc Zavala MD Unavailable [phone] Barbi Manzo RN Unavailable Unavailable Erasto Root MD Unavailable Cristofer Michelle MD Unavailable [phone] Vivien Blanchard MD Unavailable + [phone] Sapna Hernandez MD Unavailable Vivien Blanchard MD Unavailable [phone] Virgie Lobato-C Unavailable +[phone] Teetee Velazquez PA-C Unavailable +[phone] Teetee Velazquez PA-C Unavailable +[phone] Cora Shah RN Unavailable Brad Mayer DO Unavailable [phone] Mary Garcia MD Primary Care Provider Cristal Cooper RN Unavailable Shannon Rowland PA-C Unavailable Lanie Foster RD, LD Unavailabl e Mary Garcia MD Unavailable Melonie Caro [facility] Unavailable [phone] Federico Linda MD Unavailable [phone] Melonie Caro [facility] Unavailable Virgie viramontes-C Unavailable +[phone] Barry Ybarra MD Unavailable +[phone] Barry Ybarra MD Unavailable +[phone] Encounter Details Date Type Department Care Team (Late st Contact Info) Description 12/26/2019 [facility] [address] [address] Rahel Chinchilla CMA Social History Tobacco Use Types Packs/Day Years Used Date Smoking Tobacco: Never Smokeless Tobacco: Never Alcohol Use Standard Drinks/Week Comments No 0 (1 standard drink = 0.6 oz pur e alcohol) PHQ-2 Answer Date Recorded PHQ-2 Score 0 07/27/2019 Comments No Sex and Gender Information Value Date Recorded Sex Assigned at Female 07/18/2020 1:16 PM [facility] Legal Sex Female 3:23 AM [facility] Gender Identity Female 07/18/2020 1:16 PM [facility] Sexual Orientation Straight 07/18/2020 1: 16 PM [facility] 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 Not on file documented as of this encounter Plan of Treatment Upcoming Encounters Date Type Department Care Team (Late st Contact Info) Description 11/16/2024 1:00 PM CDT Allied Health/Nurse Visit [facility] Urology [address] [phone] Lucero Britt PA-C 500 [place], [place] [address] 11/16/2024 2:45 PM CDT Office Visit [facility] Urology [address] [phone] Vivien Blanchard MD 420 [facility] 394 [place], [place] [address] 11/20/2024 3:30 PM CDT Office Visit [address] [phone] [place] [address] [place] [address] 11/22/2024 9:15 AM CDT Office Visit [facility] Heart [facility] [address] [facility] [address] [place] [address] Federico Linda MD 5361 [facility] [address] [place] [address] 11/30/2024 10:30 AM CDT Lab [facility] [address] [place] [address] 12/06/2024 10:10 AM CDT Office Visit [facility] 6525 [facility] 200 [place] [phone] Virgie Lobato, PANilesh 909 [place] [address] 12/28/2024 11:00 AM CDT Office Visit [facility] [address] [phone] [place] [address] [place] [address] 01/26/2025 11:30 AM CDT Office Visit [facility] [address] [place] [phone] [place] [address] [place] [address] documented as of this encounter Goals Goal Patient Goal Type Associated Problems Recent Progress Patient-Stated? Author Problem Solving General On track( 019 9:24 AM [facility]) Yes Sheryl Stringer, ELI Note: My Goal: [...] Out COVID-19 2021 2021 04/25/2021 12:41 PM [facility] Rule Out COVID-19 06/14/2022 06/14/2022 06/14/2022 11:30 AM [facility] Rule Out COVID-19 07/03/2022 07/03/2022 07/04/2022 12:27 AM [facility] Rule Out COVID-19 04/01/2024 04/01/2024 04/01/2024 10:07 PM CDT ESBL 07/05/2024 08/24/2024 Rule Out COVID-19 07/16/2024 07/16/2024 07/16/2024 11:04 PM [facility] Rule Out COVID-19 09/01/2024 09/01/2024 09/01/2024 2:05 AM CDT Rule Out COVID-19 09/21/2024 09/21/2024 09/21/2024 3:25 PM CDT Assessment Noted Time PHQ-9 Depression Total Score: 6 07/28/19 7:04 AM [facility] documented as of this encounter Care Teams Iron Installer Relationship Specialty Start Date End Date Flynn Ruiz MD [address] [place] [address] PCP - General Family Practice 04/14/19 05/18/20 Trina Carbajal, PA-C [address] [facility] [address] [place] [address] PCP - General Family Medicine 05/19/20 04/10/24 [place] [address] [address] [place] [address] PCP - General Family Medicine 04/11/[address] [place] [address] Volunteer Coordinator Dietitian, Registered 11/03/17 Trina Carbajal PA-C [address] [place] [address] Assigned PCP 08/13/19 07/27/20 Federico Linda MD [address] [place] [address] Assigned Heart and Vascular Provider 03/29/20 Connie Blackwell MD [address] [place] [address] Assigned Endocrinology Provider 07/14/20 12/19/20 Ruth Ann Munoz MD [place] [address] [place] [address] Assigned PCP 07/28/20 08/25/20 Carlos Livingston MD NO INFO AVAILABLE Assigned PCP 08/26/20 08/31/20 Trina Carbajal PA-C [address] [place] [address] Assigned PCP 09/01/20 12/07/20 Carlos Livingston MD NO INFO AVAILABLE Assigned Endocrinology Provider 12/20/20 12/18/22 Carlos Livingston MD NO INFO AVAILABLE Assigned PCP 12/08/20 12/19/20 Trina Carbajal PA-C 6405 [facility] [address] [place] [address] Assigned PCP 12/20/20 04/28/24 Mari Funes, RN Personal Advocate & Liaison (PAL) Nurse 01/24/21 06/12/21 Jc Zavala MD [facility] [address] [place] [address] Hematology & Oncology 08/07/21 Barbi Manzo, JERRY Personal Advocate & Liaison (PAL) Family Medicine 12/24/21 07/08/23 [place] [address] [place] [address] Assigned Musculoskeletal Provider 04/04/22 08/19/23 Cristofer Michelle MD [address] [place], [place] [address]B [address] [place], [place] [address] Gastroenterology 07/28/22 Vivien Blanchard MD [address] [place] [address] 033755 Urology 07/28/22 Sapna Hernandez MD [address] [place] [address] Assigned Nephrology Provider 07/11/22 09/25/22 Vivien Blanchard MD [address] [place] [address] Assigned Surgical Provider 07/25/22 06/30/23 LhVirgie viramontes PA-C [address] [place] [address] Assigned Nephrology Provider 09/26/22 03/28/24 Teetee Velazquez PA-C [address] [place] [address] 055155 Physician Industrial Custodian 05/11/23 Teetee Velazquez PA-C [address] [place] [address] Assigned Surgical Provider 07/01/23 Cora Shah, JERRY Personal Advocate & Liaison (PAL) Nurse 07/09/23 09/29/23 [place] [address] 273247 Assigned Musculoskeletal Provider 08/20/23 Cristal Cooper RN Lead Hitch Technician Primary Care - CC 04/27/2404/08 Shannon Rowland PA-C [address] [place] [address]283 Assigned PCP 04/29/24 05/28/24 Lanie Foster, RD, LD [address] [place] [address] Registered Dietitian Nutrition 05/15/24 [place] [address] [place], [place] [address] Assigned PCP 05/29/24 Melonie Caro [facility] [address] [place] [address] Pharmacist Pharmacist 06/05/24 Federico Linda MD [address] [place], [place] [address] Cardiovascular Disease 06/13/24 Melonie Caro [facility] [address] [place] [address] Assigned MTM Pharmacist 06/29/24 Virgie Lobato, PAAnthonyC [address] [place] [address] 675515 Assigned Nephrology Provider 07/30/24 Barry Yabrra MD [address] [place] [address] Hospitalist Infectious Diseases 08/31/24 Barry Ybarra MD [address] [place] [address] Assigned Infectious Disease Provider 10/27/24 documented as of this encounter
--- OUTSIDE RECORDS SUMMARY | 2024-11-12 17:34 | XMS_ITS | Encounter Summary ---
Author Organization [facility] Address [address] [place] [address] Care Team Providers Care Still Operator Gin Name Role Phone No Ref-Primary, Physician Primary Care Provider Flynn Ruiz MD Primary Care Provider No Ref-Primary, Physician Primary Care Provider Sheryl Stringer RD Unavailable [phone] Flynn Ruiz MD Primary Care Provider [phone] Sheryl Jaimes MD Primary Care Provider Unavailab Flynn Morris MD Unavailable [phone] [facility] Primary Care Provider No Ref-Primary, Physician Primary Care Provider Flynn Ruiz MD Unavailable Ruth Ann Munoz MD Primary Care Prov ider Ruth Ann Munoz MD Unavailable + Flynn Ruiz MD Primary Care Provider EmmaRuth Ann Holm MD Unavailable + Flynn Ruiz MD Unavailable [phone] Flynn Ruiz MD Unavailable [phone] Mari Funes RN Unavailable Unavailable GraettingerRuth Ann Holm MD Unavailable + Trina Carbajal-C Unavailable [phone] Federico Linda MD Unavailable [phone] Trina Cabrajal-C Primary Care Provider Connie Blackwell MD Unavailable [phone] GraettingerRuth Ann Holm MD Unavailable + Carlos Livingston MD Unavailable Jelena vailable Trina Carbajal-C Unavailable [phone] Carlos Livingston MD Unavailable Jelena vailable Carlos Livingston MD Unavailable Jelena vailable Trina Carbajal-C Unavailable [phone] Mari Funes RN Unavailable Unavailable Jc Zavala MD Unavailable [phone] Barbi Manzo RN Unavailable Unavailable Erasto Root MD Unavailable Cristofer Michelle MD Unavailable [phone] Vivien Blanchard MD Unavailable +[phone] Sapna Hernandez MD Unavailable Vivien Blanchard MD Unavailable + [phone] Virgie Lobato PA-C Unavailable [phone] Teetee Velazquez-C Unavailable + [phone] Teetee Velazquez PA-C Unavailable +[phone] Cora Shah RN Unavailable [phone] Moreno Brad DO Unavailable [phone] Mary Garcia MD Primary Care Provider Cristal Cooper RN Unavailable Shannon Rowland PA-C Unavailable [phone], LD Unavailabl e Mary Garcia MD Unavailable Melonie Caro [facility] Unavailable [phone] Federico Linda MD Unavailable [phone] Melonie Caro [facility] Unavailable Virgie Lobato PA-C Unavailable +[phone] Barry Ybarra MD Unavailable +[phone] Barry Ybarra MD Unavailable [phone] Encounter Details Date Type Department Care Team (Latest Contact Info) Description 11/11/2016 Historic Results Social History Tobacco Use Types Packs/Day Years Used Date Smoking Tobacco: Never Alcohol Use Standard Drinks/Week Comments No 0 (1 standard drink = 0.6 oz pur e alcohol) Comments No Sex and Gender Information Value Date Recorded Sex Assigned at Female 07/18/2020 1:16 PM [facility] Legal Sex Female 3:23 AM [facility] Gender Identity Female 07/18/2020 1:16 PM [facility] Sexual Orientation Straight 07/18/2020 1: 16 PM [facility] 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 Not on file Not on file documented as of this encounter Plan of Treatment Upcoming Encounters Date Type Department Care Team (Late st Contact Info) Description 11/16/2024 1:00 PM CDT Allied Health/Nurse Visit [facility] Urology [address] [place] [address] Lucero Britt PA-C 500 [place] [address] 11/16/2024 2:45 PM CDT Office Visit [facility] Urology [facility] 909 [facility] 4th [place] [phone] Vivien Blanchard MD 420 [facility] 394 [place], [place] [address] 11/20/2024 3:30 PM CDT Office Visit [facility] [address] [place] [address] [place] [address] [place], [place] [address] 11/22/2024 9:15 AM CDT Office Visit [facility] Heart [facility] [address] [facility] [address] [place] [phone] Federico Linda MD 6403 [facility] [address] [place], [place] [address] 11/30/2024 10:30 AM CDT Lab [facility] [address] [place] [phone] 12/06/2024 10:10 AM CDT Office Visit [facility] Specialty [facility] 6525 [facility] 200 [place] [phone] Virgie Lobato PA-C 909 [place], [place] [address] 12/28/2024 11:00 AM CDT Office Visit [facility] 2945 [facility] 200 [place] [phone] Barry Ybarra MD [address] [place] [address] 200 [place] [address] 01/26/2025 11:30 AM CDT Office Visit [facility] [address] [place] [address] [place] [address] [place] [address] documented as of this encounter Visit Diagnoses Not on filedocumented in this encounter Additional Health Concerns Infection Onset Date Last Indicated Resolved Time Rule Out COVID-19 03/08/2021 03/08/2021 03/09/2021 1:42 AM CDT Rule Out C-difficile 03/10/2021 03/10/2021 021 5:50 PM CDT Rule Out COVID-19 2021 2021 04/25/2021 12:41 PM [facility] Rule Out COVID-19 06/14/2022 06/14/2022 06/14/2022 11:30 AM [facility] Rule Out COVID-19 07/03/2022 07/03/2022 07/04/2022 12:27 AM [facility] Rule Out COVID-19 04/01/2024 04/01/2024 04/01/2024 10:07 PM CDT ESBL 07/05/2024 08/24/2024 Rule Out COVID-19 07/16/2024 07/16/2024 07/16/2024 11:04 PM [facility] Rule Out COVID-19 09/01/2024 09/01/2024 09/01/2024 2:05 AM CDT Rule Out COVID-19 09/21/2024 09/21/2024 09/21/2024 3:25 PM CDT Assessment Noted Time PHQ-9 Depression Total Score: 10 017 7:13 AM CDT documented as of this encounter Care Teams Still Operator Gin Relationship Specialty Start Date End Date No Ref-Primary, Physician PCP - General 10/14/16 03/14/17 Flynn Ruiz MD PCP - General Family Practice 03/15/17 11/02/17 No Ref-Primary, Physician PCP - General 11/03/17 12/07/17 Flynn Ruiz MD PCP - General Family Practice 12/08/17 07/07/18 Sheryl Jaimes MD [facility] [address] [facility] [place] [address] PCP - General Family Practice 07/08/18 08/02/18 Flynn Ruiz MD [address] [facility] [place] [address] PCP - Assigned PCP 07/10/18 08/09/18 [facility] [address] [place], [place] [phone] PCP - General 08/03/18 08/04/18 No Ref-Primary, Physician PCP - General 08/05/18 08/30/18 [place] [address] [place], [place] [phone] PCP - General Family Practice 08/31/18 04/13/19 Flynn Ruiz MD ARISE [address] [facility] [address] [place] [address] PCP - General Family Practice 04/14/19 05/18/20 Trina Carbajal, JAMES-C 6405 [facility] [address] [place] [address] PCP - General Family Medicine 05/19/20 04/10/24 [place] [address] [place] [address] PCP - General Family Medicine 04/11/[address] [place] [address] Assisted Living Director Dietitian, Registered 11/03/17 Flynn Ruiz MD [address] [place] [address] Assigned PCP 04/24/18 12/24/18 Ruth Ann Munoz MD ARISE [address] [place] [address] Assigned PCP 12/25/18 04/22/19 Ruth Ann Munoz MD ARISE [address] [place] [address] Assigned PCP 04/30/19 05/27/19 Flynn Ruiz MD [address] [place] [address] Assigned PCP 04/23/19 04/29/19 Flynn Ruiz MD [address] [place] [address] Assigned PCP 05/28/19 07/22/19 Mari Funes, JERRY Personal Advocate & Liaison (PAL) 07/27/19 07/30/19 Ruth Ann Munoz MD [address] [address] [place], [place] [address] Assigned PCP 07/23/19 08/12/19 Trina Carbajal PA-C [address] [place] [address] Assigned PCP 08/13/19 07/27/20 Federico Linda MD [address] [place], [place] [address] Assigned Heart and Vascular Provider 03/29/20 Connie Blackwell MD [address] [place], [place] [address] Assigned Endocrinology Provider 07/14/20 12/19/20 Ruth Ann Munoz MD [address] [address] [place], [place] [address] Assigned PCP 07/28/20 08/25/20 Carlos Livingston MD NO INFO AVAILABLE Assigned PCP 08/26/20 08/31/20 Trina Carbajal PA-C [address] [place] [address] Assigned PCP 09/01/20 12/07/20 Carlos Livingston MD NO INFO AVAILABLE Assigned Endocrinology Provider 12/20/20 12/18/22 Carlos Livingston MD NO INFO AVAILABLE Assigned PCP 12/08/20 12/19/20 Trina Carbajal PA-C 6405 [facility] [address] [place], [place] [address] Assigned PCP 12/20/20 04/28/24 Mari Funes, RN Personal Advocate & Liaison (PAL) Nurse 01/24/21 06/12/21 Jc Zavala MD [facility] [address] [place] [address] Hematology & Oncology 08/07/21 Barbi Manzo, JERRY Personal Advocate & Liaison (PAL) Family Medicine 12/24/21 07/08/23 [place] [address] [place] [address] Assigned Musculoskeletal Provider 04/04/22 08/19/23 Cristofer Michelle MD [address] [place] [address] 1[address] [place] [address] Gastroenterology 07/28/22 Vivien Blanchard MD [address] [place] [address] Urology 07/28/22 Sapna Hernandez MD [address] [place] [address] Assigned Nephrology Provider 07/11/22 09/25/22 Vivien Blanchard MD [address] [place] [address] Assigned Surgical Provider 07/25/22 06/30/23 Virgie Lobato PA-C [address] [place] [address] Assigned Nephrology Provider 09/26/22 03/28/24 Teetee Velazquez PA-C [address] [place] [address] Physician Supervisor Ore Dressing 05/11/23 Teetee Velazquez PA-C [address] [place] [address] 914875 Assigned Surgical Provider 07/01/23 Cora Shah RN Personal Advocate & Liaison (PAL) Nurse 07/09/23 09/29/23 [place] [address] [address] [address] Assigned Musculoskeletal Provider 08/20/23 Cristal Cooper, JERRY Lead Machine Tool Technology Instructor Primary Care - CC 04/27/2404/08 Shannon Rowland [place]-C [address] [place] [address] Assigned PCP 04/29/24 05/28/24 Lanie Foster, RD, LD [address] [place] [address] Registered Dietitian Nutrition 05/15/24 [place] [address] [address] [address] Assigned PCP 05/29/24 Melonie Caro [facility] [address] [place] [address] Pharmacist Pharmacist 06/05/24 Federico Linda MD 6405 [facility] [address] [place], [place] [address] Cardiovascular Disease 06/13/24 Melonie Caro [facility] [address] [place] [address] Assigned MTM Pharmacist 06/29/24 Virgie Lobato, PA-C [address] [place] [address] Assigned Nephrology Provider 07/30/24 Barry Ybarra MD [address] [place] [address] Hospitalist Infectious Diseases 08/31/24 Barry Ybarra MD [address] [place] [address] Assigned Infectious Disease Provider 10/27/24 documented as of this encounter
--- OUTSIDE RECORDS SUMMARY | 2024-11-12 17:34 | XMS_ITS | Encounter Summary ---
Author Organization [place] Address [address] [place] [address] Care Team Providers Care Survey Technologist Name Role Phone Sheryl Stringer Kirk BENITEZ Unavailable Trina Carbajal PA-C Unavailable [phone] Federico Linda MD Unavailable [phone] Trina Carbajal PA-C Primary Care Provider [phone] Connie Blackwell MD Unavailable [phone] Ruth Ann Munoz MD Unavailable + Carlos Livingston MD Unavailable Jelena vailable Trina Carbajal PA-C Unavailable [phone] Carlos Livingston MD Unavailable Jelena vailable Carlos Livingston MD Unavailable Jelena vailable Trina Carbajal PA-C Unavailable [phone] Mari Funes RN Unavailable Unavailable Jc Zavala MD Unavailable [phone] Barbi Manzo RN Unavailable Unavailable Erasto Root MD Unavailable Cristofer Michelle MD Unavailable [phone] Vivien Blanchard MD Unavailable [phone] Sapna Hernandez MD Unavailable Vivien Blanchard MD Unavailable [phone] Virgie Lobato-C Unavailable [phone] Teetee Velazquez PA-C Unavailable +[phone] Teetee Velazquez PA-C Unavailable +[phone] Cora Shah RN Unavailable Brad Mayer DO Unavailable [phone] Mary Garcia MD Primary Care Provider Cristal Cooper RN Unavailable Shannon Rowland PA-C Unavailable [phone], LD Unavailabl e Mary Garcia MD Unavailable Melonie Caro [facility] Unavailable [phone] Federico Linda MD Unavailable [phone] Melonie Caro [facility] Unavailable Virgie viramontes-C Unavailable +[phone] Barry Ybarra MD Unavailable [phone] Barry Ybarra MD Unavailable [phone] Encounter Details Date Type Department Care Team (Late st Contact Info) Description 06/05/2020 [facility] [address] [place] [address] Federico Linda MD [address] [facility] [address] [place] [address] Social History Tobacco Use Types Packs/Day Years Used Date Smoking Tobacco: Never Smokeless Tobacco: Never Alcohol Use Standard Drinks/Week Comments No 0 (1 standard drink = 0.6 oz pur e alcohol) PHQ-2 Answer Date Recorded PHQ-2 Score 0 07/27/2019 Comments No Sex and Gender Information Value Date Recorded Sex Assigned at Female 07/18/2020 1:16 PM CLINICAL SUPPORT NURSE Legal Sex Female 3:23 AM CLINICAL SUPPORT NURSE Gender Identity Female 07/18/2020 1:16 PM CLINICAL SUPPORT NURSE Sexual Orientation Straight 07/18/2020 1: 16 PM CLINICAL SUPPORT NURSE 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 No / Unsure 05/21/2020 2:36 PM CLINICAL SUPPORT NURSE documented as of this encounter Miscellaneous Notes * Telephone Encounter - Chito Kemp RN - 06/05/2020 11:17 AM CST MyChart message received: Just to let you know my balance issues seem to be a little better. ??And doing the new medications.Would like to ask you an opinion. ??What do you think about the vaccine for the virus. ??Don't knowwhat to do. ??There are so many you guys on this. ??Have a great day Last saw Dr. Linda 05/21/20 1. Lightheadedness and fatigue with some dyspnea ?? Possible chronotropic incompetence and orthostasis ?? Trial of reducing her metoprolol from 50 mg twice daily down to 12.5 mg twice daily. If she feels much better, her symptoms may have been from the blunted heart rate. If she feels worse, investigate other possibilities. She will message us in a couple of weeks and let us know how she feels. Will route to Dr. Linda to update and see his thoughts on vaccine for patient ICAL SUPPORT NURSE documented in this encounter Plan of Treatment Upcoming Encounters Date Type Department Care Team (Late st Contact Info) Description 11/16/2024 1:00 PM CDT Allied Health/Nurse Visit [facility] [address] [facility] 4th [place] [address] Lucero Britt PA-C 500 [place], [place] 749605 11/16/2024 2:45 PM CDT Office Visit [facility] [address] [facility] 4th [place] [phone] Vivien Blanchard MD [address] [facility] 394 [place] [address] 11/20/2024 3:30 PM CDT Office Visit [facility] [address] [place] [phone] [place] [address] [place] [address] 11/22/2024 9:15 AM CDT Office Visit [facility] [address] [place] [phone] Federico Linda MD [address] [facility] [address] [place], [place] [address] 11/30/2024 10:30 AM CDT Lab [facility] [address] [place] [phone] 12/06/2024 10:10 AM CDT Office Visit [facility] [address] [facility] 200 [place] [phone] Virgie Lobato PA-C 909 [place], [place] 135155 12/28/2024 11:00 AM CDT Office Visit [facility] [address] [phone] Barry Yabrra MD [address] [address] 01/26/2025 11:30 AM CDT Office Visit [facility] [address] [place] [phone] [place] [address] [place], [place] [phone] documented as of this encounter Goals Goal Patient Goal Type Associated Problems Recent Progress Patient-Stated? Author Problem Solving General On track( 9:24 AM CLINICAL SUPPORT NURSE) Yes Sheryl Stringer RD Note: My Goal: [...] Out COVID-19 2021 2021 04/25/2021 12:41 PM CLINICAL SUPPORT NURSE Rule Out COVID-19 06/14/2022 06/14/2022 06/14/2022 11:30 AM CLINICAL SUPPORT NURSE Rule Out COVID-19 07/03/2022 07/03/2022 07/04/2022 12:27 AM CLINICAL SUPPORT NURSE Rule Out COVID-19 04/01/2024 04/01/2024 04/01/2024 10:07 PM CDT ESBL 07/05/2024 08/24/2024 Rule Out COVID-19 07/16/2024 07/16/2024 07/16/2024 11:04 PM CLINICAL SUPPORT NURSE Rule Out COVID-19 09/01/2024 09/01/2024 09/01/2024 2:05 AM CDT Rule Out COVID-19 09/21/2024 09/21/2024 09/21/2024 3:25 PM CDT Assessment Noted Time PHQ-9 Depression Total Score: 6 07/28/19 20 7:04 AM CLINICAL SUPPORT NURSE documented as of this encounter Care Teams Survey Technologist Relationship Specialty Start Date End Date Trina Carbajal PA-C [address] [place] [address] PCP - General Family Medicine 05/19/20 04/10/24 [place] [address] [place] [address] PCP - General Family Medicine 04/11/[address] [place] [address] Extended Day Teacher Dietitian, Registered 11/03/17 Trina Carbajal PAAnthonyC [address] [place] [address] Assigned PCP 08/13/19 07/27/20 Federico Linda MD [address] [place] [address] Assigned Heart and Vascular Provider 03/29/20 Connie Blackwell MD [address] [place] [address] Assigned Endocrinology Provider 07/14/20 12/19/20 Ruth Ann Munoz MD [place] [address] [facility] [address] [place] [address] Assigned PCP 07/28/20 08/25/20 Carlos Livingston MD NO INFO AVAILABLE Assigned PCP 08/26/20 08/31/20 Trina Carbajal PA-C [address] [place] [address] Assigned PCP 09/01/20 12/07/20 Carlos Livingston MD NO INFO AVAILABLE Assigned Endocrinology Provider 12/20/20 12/18/22 Carlos Livingston MD NO INFO AVAILABLE Assigned PCP 12/08/20 12/19/20 Trina Carbajal PA-C [address] [place] [address] Assigned PCP 12/20/20 04/28/24 Mari Funes, JERRY Personal Advocate & Liaison (PAL) Nurse 01/24/21 06/12/21 Jc Zavala MD [facility] [address] [place] [address] Hematology & Oncology 08/07/21 Barbi Manzo, JERRY Personal Advocate & Liaison (PAL) Family Medicine 12/24/21 07/08/23 [place] [address] [place] [address] Assigned Musculoskeletal Provider 04/04/22 08/19/23 Cristofer Michelle MD [address] [place], [place] [address]B [address] [place] [address] Gastroenterology 07/28/22 Vivien Blanchard MD [address] [place] [address] [id number] Urology 07/28/22 Sapna Hernandez MD [address] [place] [address] 976835 Assigned Nephrology Provider 07/11/22 09/25/22 Vivien Blanchard MD [address] [place] [address] 240915 Assigned Surgical Provider 07/25/22 06/30/23 Virgie Lobato PA-C [address] [place] [address] 556155 Assigned Nephrology Provider 09/26/22 03/28/24 Teetee Velazquez PA-C [address] [place] [address] Physician Meeting Coordinator 05/11/23 Teetee Velazquez PA-C [address] [place] [address] Assigned Surgical Provider 07/01/23 Cora Shah, JERRY Personal Advocate & Liaison (PAL) Nurse 07/09/23 09/29/23 [place] [address] [address] [place] [address] Assigned Musculoskeletal Provider 08/20/23 Cristal Cooper, RN Lead Etch Operator [employer] Wafers Primary Care - CC 04/27/2404/08 Shannon Rowland PA-C [address] [place] [phone] Assigned PCP 04/29/24 05/28/24 Lanie Foster, RD, LD [address] [place], [place] 6377[address] Registered Dietitian Nutrition 05/15/24 [place] [address] [place] [address] Assigned PCP 05/29/24 Melonie Caro [facility] [address] [place], [place] 5670[address] Pharmacist Pharmacist 06/05/24 Federico Linda MD [address] [facility] [address] [place], [place] 589[address] Cardiovascular Disease 06/13/24 Melonie Caro Gin [address] [place], [place] [address] Assigned MTM Pharmacist 06/29/24 Virgie Lobato PA-C [address] [place] [address] [id number] Assigned Nephrology Provider 07/30/24 Barry Ybarra MD [address] [place] [address] Hospitalist Infectious Diseases 08/31/24 Barry Ybarra MD [address] [place] [address] Assigned Infectious Disease Provider 10/27/24 documented as of this encounter
--- OUTSIDE RECORDS SUMMARY | 2024-11-12 17:34 | XMS_ITS | Encounter Summary ---
Author Organization [place] Address [address] [place] [address] Care Team Providers Care Die Tester Name Role Phone Sheryl Stringer ELI Unavailable [phone] Flynn Ruiz MD Primary Care Provider Trina Carbajal PA-C Unavailable [phone] Federico Linda MD Unavailable Trina Carbajal PA-C Primary Care Provider [phone] Connie Blackwell MD Unavailable [phone] Ruth Ann Munoz MD Unavailable + Carlos Livingston MD Unavailable Jelena ericailable Trina Carbajal PA-C Unavailable [phone] Carlos Livingston MD Unavailable Jelena ericailable Carlos Livingston MD Unavailable Jelena Trina Marcum PA-C Unavailable [phone] Mari Funes RN Unavailable Unavailable Jc Zavala MD Unavailable [phone] Barbi Manzo RN Unavailable Unavailable Erasto Root MD Unavailable Cristofer Michelle MD Unavailable [phone] Vivien Blanchard MD Unavailable [phone] Sapna Hernandez MD Unavailable Vivien Blanchard MD Unavailable [phone] Virgie Lobato-C Unavailable [phone] Teetee Velazquez PA-C Unavailable +[phone] Teetee Velazquez PA-C Unavailable +[phone] Cora Shah RN Unavailable rBad Mayer DO Unavailable [phone] Mary Garcia MD Primary Care Provider Cristal Cooper RN Unavailable Shannon Rowland PA-C Unavailable [phone], LD Unavailabl e Mary Garcia MD Unavailable Melonie Caro [facility] Unavailable [phone] Federico Linda MD Unavailable [phone] Melonie Caro [facility] Unavailable Virgie viramontes-C Unavailable [phone] Barry Ybarra MD Unavailable [phone] Barry Ybarra MD Unavailable [phone] Encounter Details Date Type Department Care Team (Late st Contact Info) Description 01/23/2020 [facility] [address] [address] Rahel Chinchilla CMA Social History Tobacco Use Types Packs/Day Years Used Date Smoking Tobacco: Never Smokeless Tobacco: Never Alcohol Use Standard Drinks/Week Comments No 0 (1 standard drink = 0.6 oz pur e alcohol) PHQ-2 Answer Date Recorded PHQ-2 Score 0 07/27/2019 Comments No Sex and Gender Information Value Date Recorded Sex Assigned at Female 07/18/2020 1:16 PM DROP WIRE ALINER Legal Sex Female 3:23 AM DROP WIRE ALINER Gender Identity Female 07/18/2020 1:16 PM DROP WIRE ALINER Sexual Orientation Straight 07/18/2020 1: 16 PM DROP WIRE ALINER 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 file Not on file Not on file documented as of this encounter Plan of Treatment Upcoming Encounters Date Type Department Care Team (Late st Contact Info) Description 11/16/2024 1:00 PM CDT Allied Health/Nurse Visit [facility] Urology [address] [phone] Lucero Britt PA-C 500 [place], [place] 41[address] 11/16/2024 2:45 PM CDT Office Visit [facility]rology [address] [phone] Vivien Blanchard MD 420 [facility] 394 [place], [place] [address] 11/20/2024 3:30 PM CDT Office Visit [address] [phone] [place] [address] [place] [address] 11/22/2024 9:15 AM CDT Office Visit [facility] [address] [facility] [address] [place] [address] Federico Linda MD 3499 [facility] [address] [place] [address] 11/30/2024 10:30 AM CDT Lab [facility] [address] [place] [phone] 12/06/2024 10:10 AM CDT Office Visit [facility] 6525 [facility] 200 [place] [phone] Virgie Lobato, PANilesh 909 [place] [address] 12/28/2024 11:00 AM CDT Office Visit [facility] [address] [phone] [place] [address] [place] [address] 01/26/2025 11:30 AM CDT Office Visit [facility] [address] [place] [phone] [place] [address] [place] [address] documented as of this encounter Goals Goal Patient Goal Type Associated Problems Recent Progress Patient-Stated? Author Problem Solving General On track( 019 9:24 AM DROP WIRE ALINER) Yes Sheryl Stringer, ELI Note: My Goal: [...] Out COVID-19 2021 2021 04/25/2021 12:41 PM DROP WIRE ALINER Rule Out COVID-19 06/14/2022 06/14/2022 06/14/2022 11:30 AM DROP WIRE ALINER Rule Out COVID-19 07/03/2022 07/03/2022 07/04/2022 12:27 AM DROP WIRE ALINER Rule Out COVID-19 04/01/2024 04/01/2024 04/01/2024 10:07 PM CDT ESBL 07/05/2024 08/24/2024 Rule Out COVID-19 07/16/2024 07/16/2024 07/16/2024 11:04 PM DROP WIRE ALINER Rule Out COVID-19 09/01/2024 09/01/2024 09/01/2024 2:05 AM CDT Rule Out COVID-19 09/21/2024 09/21/2024 09/21/2024 3:25 PM CDT Assessment Noted Time PHQ-9 Depression Total Score: 6 07/28/19 7:04 AM DROP WIRE ALINER documented as of this encounter Care Teams Die Tester Relationship Specialty Start Date End Date Flynn Ruiz MD [address] [place] [address] PCP - General Family Practice 04/14/19 05/18/20 Trina Carbajal, PA-C [address] [facility] [address] [place] [address] PCP - General Family Medicine 05/19/20 04/10/24 [place] [address] [address] [place] [address] PCP - General Family Medicine 04/11/[address] [place] [address] Chimney Builder Helper Dietitian, Registered 11/03/17 Trina Carbajal PA-C [address] [place] [address] Assigned PCP 08/13/19 07/27/20 Federico Linda MD [address] [place] [address] Assigned Heart and Vascular Provider 03/29/20 Connie Blackwell MD [address] [place] [address] Assigned Endocrinology Provider 07/14/20 12/19/20 Ruth Ann Munoz MD [place] [address] [place] [address] Assigned PCP 07/28/20 08/25/20 Carlos Livingston MD NO INFO AVAILABLE Assigned PCP 08/26/20 08/31/20 Trina Carbajal PA-C [address] [place] [address] Assigned PCP 09/01/20 12/07/20 Carlos Livingston MD NO INFO AVAILABLE Assigned Endocrinology Provider 12/20/20 12/18/22 Carlos Livingston MD NO INFO AVAILABLE Assigned PCP 12/08/20 12/19/20 Trina Carbajal PA-C 6[address] [facility] [address] [place] [address] Assigned PCP 12/20/20 04/28/24 Mari Funes, RN Personal Advocate & Liaison (PAL) Nurse 01/24/21 06/12/21 Jc Zavala MD [facility] [address] [place] [address] Hematology & Oncology 08/07/21 Barbi Manzo, JERRY Personal Advocate & Liaison (PAL) Family Medicine 12/24/21 07/08/23 [place] [address] [place] [address] Assigned Musculoskeletal Provider 04/04/22 08/19/23 Cristofer Michelle MD [address] [place], [place] [address]B 1E [place], [place] [address] Gastroenterology 07/28/22 Vivien Blanchard MD [address] [place] [address]45 Urology 07/28/22 Sapna Hernandez MD [address] [place] [address] Assigned Nephrology Provider 07/11/22 09/25/22 Vivien Blanchard MD [address] [place] [address] Assigned Surgical Provider 07/25/22 06/30/23 LhVirgie viramontes PA-C [address] [place] [address] Assigned Nephrology Provider 09/26/22 03/28/24 Teetee Velazquez PA-C [address] [place] [address] 036335 Physician Cork Tipper 05/11/23 Teetee Velazquez PA-C [address] [place] [address] Assigned Surgical Provider 07/01/23 Cora Shah, JERRY Personal Advocate & Liaison (PAL) Nurse 07/09/23 09/29/23 [place] [address] 242[address] Assigned Musculoskeletal Provider 08/20/23 Cristal Cooper RN Lead Wrapper Hand Primary Care - CC 04/27/2404/08 Shannon Rowland PA-C [address] [place] [phone] Assigned PCP 04/29/24 05/28/24 Lanie Foster, RD, LD [address] [place] [place] [address] Registered Dietitian Nutrition 05/15/24 [place] [address] [place], [place] [phone] Assigned PCP 05/29/24 Melonie Caro [facility] [address] [place] [address] Pharmacist Pharmacist 06/05/24 Federico Linda MD [address] [place], [place] 1256[address] Cardiovascular Disease 06/13/24 Melonie Caro [facility] [address] [place] [address] Assigned MTM Pharmacist 06/29/24 Virgie Lobato, PAAnthonyC [address] [place] [address] [phone] Assigned Nephrology Provider 07/30/24 Barry Ybarra MD [address] [place] [address] Hospitalist Infectious Diseases 08/31/24 Barry Ybarra MD [address] [place] [address] Assigned Infectious Disease Provider 10/27/24 documented as of this encounter
[2024-11-12 17:51] VITALS: BP 112/68; PULSE 78; RESP 22; TEMP 36.6
== END 2024-11-12 17:51 | disposition home or self-care (01) ==
PROVIDERS: Emergency Provider Internal Medicine
DX: N39.0 Urinary tract infection, site not specified (principal)
CPT/HCPCS: 81001; 81003; 87086; 99283